=== PATIENT | male | born 1945 | race Caucasian/White ===

== ENCOUNTER 2017-10-03 14:08 | Observation (INO) | payer MEDICARE ==
--- NOTE | 2017-10-03 15:19 | ED ---
General Adult HPI - General Chief complaint: Chest Pain Stated complaint: chest pain Time Seen by Provider: 10/03/17 14:56 Source: patient, RN notes reviewed, old records reviewed Mode of arrival: ambulatory Limitations: no limitations - History of Present Illness Initial comments: This is a 72-year-old male the ER for evasive chest pain. Severe left sided chest pain. History of heart disease. Patient was seen by his primary care and sent in the ER for evaluation. Patient remains continued chest pain no significant shortness of breath no fevers cough or congestion. Patient has history of A. fib COPD diabetes and hypertension. - Related Data Home Medications Medication Instructions Recorded Confirmed Budesonide [Pulmicort] 0.5 mg INHALATION RT-BID 11/20/13 10/03/17 Carvedilol [Coreg] 3.125 mg PO BID-W/MEALS 11/20/13 10/03/17 Dofetilide [Tikosyn] 500 mcg PO BID 11/20/13 10/03/17 Spironolactone [Aldactone] 12.5 mg PO Q48H 11/20/13 10/03/17 Warfarin [Coumadin] 7.5 mg PO SUTUTH 11/20/13 10/03/17 glipiZIDE [Glucotrol] 10 mg PO AC-BID 11/20/13 10/03/17 metFORMIN HCL [Glucophage] 500 mg PO BID 11/20/13 10/03/17 Allopurinol [Zyloprim] 300 mg PO DAILY 11/21/14 10/03/17 Losartan [Cozaar] 25 mg PO DAILY 11/21/14 10/03/17 Lovastatin [Mevacor] 20 mg PO HS 11/21/14 10/03/17 Acetaminophen Tab [Tylenol] 325 mg PO QID PRN MDD 6 TABLETS 07/12/16 10/03/17 Ergocalciferol [Vitamin D2 50,000 unit PO HODGES 07/12/16 10/03/17 (DRISDOL)] Warfarin [Coumadin] 5 mg PO MOWEFRSA 07/12/16 10/03/17 Meclizine [Antivert] 25 mg PO BID 10/03/17 10/03/17 Multivitamins, Thera [Multivitamin 1 tab PO DAILY 10/03/17 10/03/17 (formulary)] Torsemide [Demadex] 40 mg PO DAILY 10/03/17 10/03/17 Allergies Allergy/AdvReac Type Severity Reaction Status Date / Time No Known Allergies Allergy Verified 10/03/17 16:00 Review of Systems ROS Statement: Those systems with pertinent positive or pertinent negative responses have been documented in the HPI. ROS Other: All systems not noted in ROS Statement are negative. Past Medical History Past Medical History: Atrial Fibrillation, COPD, Diabetes Mellitus, Hyperlipidemia, Sleep Apnea/CPAP/BIPAP Additional Past Medical History / Comment(s): cardiomyopathy. arthritis. gout History of Any Multi-Drug Resistant Organisms: None Reported Date of last positivie culture/infection: unknown if pt had MRSA or not after bowel surgery Past Surgical History: Bowel Resection, Pacemaker Additional Past Surgical History / Comment(s): Sinus surgery. VIANEY, bilateral cataract removal with lense implants Past Anesthesia/Blood Transfusion Reactions: No Reported Reaction Type of Cardiac Device: Permanent Pacemaker Device Placement Date:: 10/17/2012 Past Psychological History: Depression Smoking Status: Former smoker Past Alcohol Use History: Rare Past Drug Use History: None Reported - Past Family History Father Additional Family Medical History / Comment(s): "hardening of the arteries" General Exam Limitations: no limitations General appearance: alert, in no apparent distress Head exam: Present: atraumatic, normocephalic, normal inspection Eye exam: Present: normal appearance, PERRL, EOMI. Absent: scleral icterus, conjunctival injection, periorbital swelling ENT exam: Present: normal exam, mucous membranes moist Neck exam: Present: normal inspection. Absent: tenderness, meningismus, lymphadenopathy Respiratory exam: Present: normal lung sounds bilaterally. Absent: respiratory distress, wheezes, rales, rhonchi, stridor Cardiovascular Exam: Present: regular rate, normal rhythm, normal heart sounds. Absent: systolic murmur, diastolic murmur, rubs, gallop, clicks GI/Abdominal exam: Present: soft, normal bowel sounds. Absent: distended, tenderness, guarding, rebound, rigid Extremities exam: Present: normal inspection, full ROM, normal capillary refill. Absent: tenderness, pedal edema, joint swelling, calf tenderness Back exam: Present: normal inspection Neurological exam: Present: alert, oriented X3, CN II-XII intact Psychiatric exam: Present: normal affect, normal mood Skin exam: Present: warm, dry, intact, normal color. Absent: rash Course Vital Signs 10/03/17 10/03/17 10/03/17 14:11 15:29 16:48 Temperature 97.0 F L 97.2 F L Pulse Rate 69 61 66 Respiratory 18 18 18 Rate Blood Pressure 120/66 125/65 111/63 O2 Sat by Pulse 98 96 94 L Oximetry EKG Findings - EKG Comments: EKG Findings:: EKG shows sinus rhythm rate of 75, W[place] 234, QRS 134, QTC 489 Medical Decision Making - Medical Decision Making 72 male the ER for evaluation of chest pain. Patient will be admitted for cardiac observation, at this time EKG and troponin are negative patient has history of cardiac risk factors, we'll anticoagulate and admit for serial troponins and telemetry - Lab Data Result diagrams: 10/03/17 15:24 10/05/17 06:44 Lab Results 10/03/17 10/03/17 10/03/17 Range/Units 15:24 15:24 15:24 WBC 8.0 (3.8-10.6) k/uL RBC 4.77 (4.30-5.90) m/uL Hgb 13.8 (13.0-17.5) gm/dL Hct 43.2 (39.0-53.0) % MCV 90.5 (80.0-100.0) fL MCH 28.9 (25.0-35.0) pg MCHC 31.9 (31.0-37.0) g/dL RDW 15.1 (11.5-15.5) % Plt Count 224 (150-450) k/uL Neutrophils % 55 % Lymphocytes % 27 % Monocytes % 12 % Eosinophils % 3 % Basophils % 1 % Neutrophils # 4.4 (1.3-7.7) k/uL Lymphocytes # 2.2 (1.0-4.8) k/uL Monocytes # 1.0 (0-1.0) k/uL Eosinophils # 0.2 (0-0.7) k/uL Basophils # 0.1 (0-0.2) k/uL PT (9.0-12.0) sec INR (<1.2) APTT (22.0-30.0) sec Sodium 144 (137-145) mmol/L Potassium 3.9 (3.5-5.1) mmol/L Chloride 104 (98-107) mmol/L Carbon Dioxide 27 (22-30) mmol/L Anion Gap 13 mmol/L BUN 19 (9-20) mg/dL Creatinine 0.80 (0.66-1.25) mg/dL Est GFR (CKD-EPI)AfAm >90 (>60 ml/min/1.73 sqM) Est GFR (CKD-EPI)NonAf >90 (>60 ml/min/1.73 sqM) Glucose 127 H (74-99) mg/dL Calcium 9.1 (8.4-10.2) mg/dL Magnesium 1.9 (1.6-2.3) mg/dL Total Bilirubin 0.4 (0.2-1.3) mg/dL AST 25 (17-59) U/L ALT 17 L (21-72) U/L Alkaline Phosphatase 63 (38-126) U/L Total Creatine Kinase 122 (55-170) U/L CK-MB (CK-2) 1.0 (0.0-2.4) ng/mL CK-MB (CK-2) Rel Index 0.8 Troponin I <0.012 (0.000-0.034) ng/mL Total Protein 7.5 (6.3-8.2) g/dL Albumin 4.1 (3.5-5.0) g/dL 10/03/17 Range/Units 15:24 WBC (3.8-10.6) k/uL RBC (4.30-5.90) m/uL Hgb (13.0-17.5) gm/dL Hct (39.0-53.0) % MCV (80.0-100.0) fL MCH (25.0-35.0) pg MCHC (31.0-37.0) g/dL RDW (11.5-15.5) % Plt Count (150-450) k/uL Neutrophils % % Lymphocytes % % Monocytes % % Eosinophils % % Basophils % % Neutrophils # (1.3-7.7) k/uL Lymphocytes # (1.0-4.8) k/uL Monocytes # (0-1.0) k/uL Eosinophils # (0-0.7) k/uL Basophils # (0-0.2) k/uL PT 21.8 H (9.0-12.0) sec INR 2.4 H (<1.2) APTT 28.8 (22.0-30.0) sec Sodium (137-145) mmol/L Potassium (3.5-5.1) mmol/L Chloride (98-107) mmol/L Carbon Dioxide (22-30) mmol/L Anion Gap mmol/L BUN (9-20) mg/dL Creatinine (0.66-1.25) mg/dL Est GFR (CKD-EPI)AfAm (>60 ml/min/1.73 sqM) Est GFR (CKD-EPI)NonAf (>60 ml/min/1.73 sqM) Glucose (74-99) mg/dL Calcium (8.4-10.2) mg/dL Magnesium (1.6-2.3) mg/dL Total Bilirubin (0.2-1.3) mg/dL AST (17-59) U/L ALT (21-72) U/L Alkaline Phosphatase (38-126) U/L Total Creatine Kinase (55-170) U/L CK-MB (CK-2) (0.0-2.4) ng/mL CK-MB (CK-2) Rel Index Troponin I (0.000-0.034) ng/mL Total Protein (6.3-8.2) g/dL Albumin (3.5-5.0) g/dL - Radiology Data Radiology results: report reviewed, image reviewed Critical Care Time Critical Care Time: Yes Total Critical Care Time: 31 Disposition Clinical Impression: Chest pain, Weakness Disposition: ADMITTED IP TO THIS [facility] Condition: Fair
[2017-10-03 15:40] LABS: Basophils # (A) 0.1 k/uL (0-0.2); Basophils % (A) 1 %; Eosinophils # (A) 0.2 k/uL (0-0.7); Eosinophils % (A) 3 %; HCT 43.2 % (39.0-53.0); HGB 13.8 gm/dL (13.0-17.5); Lymphocytes # (A) 2.2 k/uL (1.0-4.8); Lymphocytes % (A) 27 %; MCH 28.9 pg (25.0-35.0); MCHC 31.9 g/dL (31.0-37.0); MCV 90.5 fL (80.0-100.0); Mean Platelet Volume 7.1; Monocytes % (A) 12 %; Neutrophils # (A) 4.4 k/uL (1.3-7.7); Neutrophils % (A) 55 %; Platelet Count 224 k/uL (150-450); RBC 4.77 m/uL (4.30-5.90); RDW 15.1 % (11.5-15.5)
[2017-10-03 15:48] LABS: INR 2.4 (<1.2); Partial Thromboplastin Time 28.8 sec (22.0-30.0); Prothrombin Time 21.8 sec (9.0-12.0)
--- NOTE | 2017-10-03 15:59 | XR ---
EXAMINATION TYPE: XR chest 2V DATE OF EXAM: 10/03/2017 COMPARISON: 07/12/2016 HISTORY: 72-year-old male with chest pain TECHNIQUE: AP and lateral views FINDINGS: Heart is moderately enlarged. Left anterior chest wall pacemaker generator with right atrial and righ t ventricular leads. Adjacent interstitial prominence. Some strandy atelectasis at the lung bases. No consolidation or significant pleural effusion. Posttraumatic bony deformity at the right coracoclavi cular joint. IMPRESSION: Mild to moderate cardiomegaly and interstitial prominence. Correlate for possible mild CHF.
[2017-10-03 16:06] LABS: Creatine Kinase 122 U/L (55-170)
[2017-10-03 16:16] LABS: ALT 17 U/L (21-72); AST 25 U/L (17-59); Albumin 4.1 g/dL (3.5-5.0); Alkaline Phosphatase 63 U/L (38-126); Anion Gap 13 mmol/L; Blood Urea Nitrogen 19 mg/dL (9-20); Calcium 9.1 mg/dL (8.4-10.2); Carbon Dioxide 27 mmol/L (22-30); Chloride 104 mmol/L (98-107); Glucose 127 mg/dL (74-99); Magnesium 1.9 mg/dL (1.6-2.3); Potassium 3.9 mmol/L (3.5-5.1); Sodium 144 mmol/L (137-145); Total Bilirubin 0.4 mg/dL (0.2-1.3); Total Protein 7.5 g/dL (6.3-8.2)
[2017-10-03 16:19] LABS: Troponin I <0.012 ng/mL (0.000-0.034)
[2017-10-03] MEDS ORDERED: ASPIRIN 81 MG PO STA (16:22)
[2017-10-03] MEDS ORDERED: NITROGLYCERIN SL TABS 0.4 MG TAB SUBLINGUAL PRN (16:22)
[2017-10-03 18:10] LABS: Glucose,Whole Blood 86 mg/dL (75-99)
[2017-10-03] MEDS ORDERED: WARFARIN 5 MG TAB PO SCH (20:00)
[2017-10-03] MEDS: metFORMIN 500 MG TAB PO SCH (20:47)
[2017-10-03] MEDS: DOFETILIDE 500 MCG CAP PO SCH (20:47)
[2017-10-03] MEDS: METOPROLOL TARTRATE 25 MG TAB PO SCH (20:47)
[2017-10-03] MEDS: MECLIZINE 25 MG TAB PO SCH (20:48)
[2017-10-03] MEDS: ATORVASTATIN 10 MG TAB PO SCH (20:48)
[2017-10-03] MEDS ORDERED: glipiZIDE 10 MG TAB PO SCH (20:50)
[2017-10-03] MEDS: ACETAMINOPHEN TAB 325 MG TAB PO PRN (20:55)
[2017-10-03 21:08] LABS: Glucose,Whole Blood 139 mg/dL (75-99)
[2017-10-03] MEDS: glipiZIDE 5 MG TAB PO SCH (21:43)
[2017-10-03 22:03] LABS: Creatine Kinase 124 U/L (55-170)
[2017-10-03 22:16] LABS: Creatine Kinase MB 0.9 ng/mL (0.0-2.4); Troponin I <0.012 ng/mL (0.000-0.034)
[2017-10-03] MEDS: BUDESONIDE 0.5 MG/2 ML NEBU INHALATION SCH (22:17)
[2017-10-03 22:58] LABS: Appearance,Urine Clear (Clear); Bilirubin,Urine Negative (Negative); Blood,Urine Negative (Negative); Color,Urine Yellow; Glucose,Urine (UA) Negative (Negative); Ketones,Urine Negative (Negative); Leukocyte Esterase,Urine Negative (Negative); Nitrite,Urine Negative (Negative); Protein,Urine Negative (Negative); Urobilinogen,Urine <2.0 mg/dL (<2.0)
[2017-10-04 04:16] LABS: INR 2.3 (<1.2)
[2017-10-04 04:47] LABS: Cholesterol 152 mg/dL (<200); HDL Cholesterol 45 mg/dL (40-60); LDL Cholesterol,Calculated 73 mg/dL (0-99); Triglycerides 171 mg/dL (<150)
[2017-10-04 04:51] LABS: Creatine Kinase 114 U/L (55-170)
[2017-10-04 05:01] LABS: Creatine Kinase MB 0.9 ng/mL (0.0-2.4); Troponin I <0.012 ng/mL (0.000-0.034)
[2017-10-04 06:35] LABS: Glucose,Whole Blood 106 mg/dL (75-99)
[2017-10-04] MEDS ORDERED: glipiZIDE 10 MG TAB PO SCH (07:30)
[2017-10-04] MEDS: BUDESONIDE 0.5 MG/2 ML NEBU INHALATION SCH ×2 (07:46→20:10)
[2017-10-04] MEDS: ACETAMINOPHEN TAB 325 MG TAB PO PRN (09:07)
[2017-10-04] MEDS ORDERED: MULTIVITAMINS, THERA 1 EACH TAB PO SCH (12:00)
[2017-10-04 12:01] LABS: Glucose,Whole Blood 123 mg/dL (75-99)
--- NOTE | 2017-10-04 13:20 | P.CRDCN ---
History of Present Illness Consult date: 10/04/17 Consult reason: atrial fibrillation History of present illness: Mr. Galloway is a pleasant 72-year-old male past medical history significant for paroxysmal atrial fibrillation maintained on coumadin and tikosyn s/p ablation, COPD, diabetes mellitus, dyslipidemia, sleep apnea and pacemaker implantation. He follows with Dr. Witt in the office. We have been asked to see him in consultation for complaints of palpitations. He regularly checks his blood pressure at home and over the day or 2 he has noticed that the monitor has been showing an irregular heart rhythm reading. He made an appointment to see his PCP and they did an EKG that showed sinus, per the patient. This EKG is not on the chart. He was apparently more short of breath than usual so they advised him to come to the hospital for evaluation. He states he suffers with shortness of breath chronically and hasn't noticed his breathing to be any worse lately. He denies ever having had symptoms of chest pain. Denies PND or orhopnea. He states he has been coughing more lately with no phlegm production. He has oxygen at home but states he doesn't use it as recommended. EKG reveals sinus mechanism with right bundle branch block. Telemetry tracings have been unremarkable for arrhythmia. Chest xray reveals mild to moderate cardimegaly and interstitial prominence. Laboratory data reviewed, hemoglobin 13.8, platelets 224, INR 2.4, potassium 3.9 , magnesium 1.9, creatinine 0.8, proBNP 171, cardiac enzymes negative 3. Current cardiac medications include lovastatin 20 mg daily, losartan 25 mg daily , carvedilol 3.125 mg twice a day, Coumadin daily, Demadex 40 mg daily, Aldactone 12.5 mg every other day and Tikosyn 500 mg twice a day. Review of Systems At the time of my exam: CONSTITUTIONAL: Denies fever. Denies chills. EYES: Denies blurred vision. Denies vision changes. Denies eye pain. EARS, NOSE, MOUTH & THROAT: Denies headache. Denies sore throat. Denies ear pain. CARDIOVASCULAR: Denies chest pain. Denies shortness of breath. Denies orthopnea. Denies PND. Denies palpitations. RESPIRATORY: Denies cough. GASTROINTESTINAL: Denies abdominal pain. Denies diarrhea. Denies constipation. Denies nausea. Denies vomiting. MUSCULOSKELETAL: Denies myalgias. INTEGUMENTARY: Denies pruitis. Denies rash. NEUROLOGIC: Denies numbness. Denies tingling. Denies weakness. PSYCHIATRIC: Denies anxiety. Denies depression. ENDOCRINE: Denies fatigue. Denies weight change. Denies polydipsia. Denies polyurina. GENITOURINARY: Denies burning, hematuria or urgency with micturation. HEMATOLOGIC: Denies history of anemia. Denies bleeding. Past Medical History Past Medical History: Atrial Fibrillation, COPD, Diabetes Mellitus, Hyperlipidemia, Sleep Apnea/CPAP/BIPAP Additional Past Medical History / Comment(s): cardiomyopathy. arthritis. gout History of Any Multi-Drug Resistant Organisms: None Reported Date of last positivie culture/infection: unknown if pt had MRSA or not after bowel surgery Past Surgical History: Bowel Resection, Cardiac Ablation, Heart Catheterization , Pacemaker Additional Past Surgical History / Comment(s): Sinus surgery. VIANEY, bilateral cataract removal with lense implants Past Anesthesia/Blood Transfusion Reactions: No Reported Reaction Type of Cardiac Device: Permanent Pacemaker Device Placement Date:: 10/17/2012 Smoking Status: Former smoker - Past Family History Father Additional Family Medical History / Comment(s): "hardening of the arteries" Medications and Allergies Home Medications Medication Instructions Recorded Confirmed Type Budesonide [Pulmicort] 0.5 mg INHALATION RT-BID 11/20/13 10/03/17 History Carvedilol [Coreg] 3.125 mg PO BID-W/MEALS 11/20/13 10/03/17 History Dofetilide [Tikosyn] 500 mcg PO BID 11/20/13 10/03/17 History Spironolactone [Aldactone] 12.5 mg PO Q48H 11/20/13 10/03/17 History Warfarin [Coumadin] 7.5 mg PO SUTUTH 11/20/13 10/03/17 History glipiZIDE [Glucotrol] 10 mg PO AC-BID 11/20/13 10/03/17 History metFORMIN HCL [Glucophage] 500 mg PO BID 11/20/13 10/03/17 History Allopurinol [Zyloprim] 300 mg PO DAILY 11/21/14 10/03/17 History Losartan [Cozaar] 25 mg PO DAILY 11/21/14 10/03/17 History Lovastatin [Mevacor] 20 mg PO HS 11/21/14 10/03/17 History Acetaminophen Tab [Tylenol Tab] 325 mg PO QID PRN MDD 6 TABLETS 07/12/16 History Ergocalciferol [Vitamin D2] 50,000 unit PO HODGES 07/12/16 10/03/17 History Warfarin [Coumadin] 5 mg PO MOWEFRSA 07/12/16 10/03/17 History Meclizine [Antivert] 25 mg PO BID 10/03/17 10/03/17 History Multivitamins, Thera [Multivitamin 1 tab PO DAILY 10/03/17 10/03/17 History (formulary)] Torsemide [Demadex] 40 mg PO DAILY 10/03/17 10/03/17 History Allergies Allergy/AdvReac Type Severity Reaction Status Date / Time No Known Allergies Allergy Verified 10/03/17 16:00 Physical Exam Vitals: Vital Signs Temp Pulse Pulse Resp BP BP Pulse Ox 10/04/17 07:57 56 L 10/04/17 07:54 97.6 F 69 18 98/64 93 L 10/04/17 07:46 56 L 10/04/17 04:00 16 95 10/04/17 03:58 67 18 10/04/17 03:38 97.6 F 65 18 107/51 92 L 10/03/17 23:49 97.5 F L 56 L 16 115/56 91 L 10/03/17 23:10 67 16 10/03/17 20:00 70 16 10/03/17 19:48 97.6 F 73 16 98/49 92 L 10/03/17 18:25 95 10/03/17 18:19 68 10/03/17 17:35 97.4 F L 69 17 125/67 97 10/03/17 16:48 97.2 F L 66 18 111/63 94 L 10/03/17 15:29 61 18 125/65 96 10/03/17 14:11 97.0 F L 69 18 120/66 98 Intake and Output 10/03/17 10/04/17 10/04/17 22:59 06:59 14:59 Intake Total 240 Balance 240 Intake: Oral 240 Other: Voiding Method Toilet Toilet # Voids 1 2 Weight 148.2 kg 149.3 kg Blood pressure 90/64 heart rate 69 afebrile maintaining oxygen saturation on nasal cannula 2 L. GENERAL: This is a 72-year-old male in no apparent distress at the time of my examination. Morbidly obese. HEENT: Head is atraumatic, normocephalic. Pupils are equal, round. Sclerae anicteric. Conjunctivae are clear. Mucous membranes of the mouth are moist. Neck is supple. There is no jugular venous distention. No carotid bruit is heard. LUNGS: Clear to auscultation no wheezes, rales or rhonchi. No chest wall tenderness is noted on palpation or with deep breathing. Diminished. HEART: Regular rate and rhythm without murmurs, rubs or gallops. S1 and S2 heard. ABDOMEN: Soft, nontender. Bowel sounds are heard. No organomegaly noted. EXTREMITIES: No evidence of peripheral edema and no calf tenderness noted. VASCULAR: Radial and dorsalis pedis pulses palpated, no evidence of clubbing. NEUROLOGIC: Patient is awake, alert and oriented x3. Results 10/03/17 15:24 10/03/17 15:24 Cardiac Enzymes 10/03/17 10/03/17 10/03/17 Range/Units 15:24 15:24 21:17 AST 25 (17-59) U/L CK-MB (CK-2) 1.0 0.9 (0.0-2.4) ng/mL Troponin I <0.012 <0.012 (0.000-0.034) ng/mL 10/04/17 Range/Units 03:30 AST (17-59) U/L CK-MB (CK-2) 0.9 (0.0-2.4) ng/mL Troponin I <0.012 (0.000-0.034) ng/mL Coagulation 10/03/17 10/04/17 Range/Units 15:24 03:30 PT 21.8 H 21.0 H (9.0-12.0) sec APTT 28.8 (22.0-30.0) sec Lipids 10/04/17 Range/Units 03:30 Triglycerides 171 H (<150) mg/dL Cholesterol 152 (<200) mg/dL HDL Cholesterol 45 (40-60) mg/dL CBC 10/03/17 Range/Units 15:24 WBC 8.0 (3.8-10.6) k/uL RBC 4.77 (4.30-5.90) m/uL Hgb 13.8 (13.0-17.5) gm/dL Hct 43.2 (39.0-53.0) % Plt Count 224 (150-450) k/uL Comprehensive Metabolic Panel 10/03/17 Range/Units 15:24 Sodium 144 (137-145) mmol/L Potassium 3.9 (3.5-5.1) mmol/L Chloride 104 (98-107) mmol/L Carbon Dioxide 27 (22-30) mmol/L BUN 19 (9-20) mg/dL Creatinine 0.80 (0.66-1.25) mg/dL Glucose 127 H (74-99) mg/dL Calcium 9.1 (8.4-10.2) mg/dL AST 25 (17-59) U/L ALT 17 L (21-72) U/L Alkaline Phosphatase 63 (38-126) U/L Total Protein 7.5 (6.3-8.2) g/dL Albumin 4.1 (3.5-5.0) g/dL Current Medications Generic Name Dose Route Start Last Admin Trade Name Freq PRN Reason Stop Dose Admin Acetaminophen 325 mg 10/03/17 19:35 10/03/17 20:55 Tylenol Tab PO 325 mg QID PRN Administration Fever and/ or Pain Allopurinol 300 mg 10/04/17 09:00 Zyloprim PO DAILY [facility] Aspirin 325 mg 10/04/17 09:00 Aspirin PO DAILY [facility] Atorvastatin Calcium 10 mg 10/03/17 21:00 10/03/17 20:48 Lipitor PO 10 mg HS SERGEY Administration Budesonide 0.5 mg 10/03/17 20:00 10/04/17 07:46 Pulmicort INHALATION 0.5 mg RT-BID SERGEY Administration Carvedilol 3.125 mg 10/04/17 07:30 Coreg PO BID-W/MEALS [facility] Dofetilide 500 mcg 10/03/17 21:00 10/03/17 20:47 Tikosyn PO 500 mcg BID SERGEY Administration Ergocalciferol 50,000 unit 10/07/17 12:00 Vitamin D2 PO Hodges@1200 [facility] Glipizide 10 mg 10/03/17 21:15 10/03/17 21:43 Glucotrol PO 10 mg AC-BID [facility] Administration Losartan Potassium 25 mg 10/04/17 09:00 Cozaar PO DAILY [facility] Meclizine HCl 25 mg 10/03/17 21:00 10/03/17 20:48 Antivert PO 25 mg BID SERGEY Administration Metformin HCl 500 mg 10/03/17 21:00 10/03/17 20:47 Glucophage PO 500 mg BID SERGEY Administration Metoprolol Tartrate 25 mg 10/03/17 21:00 10/03/17 20:47 Lopressor PO 25 mg BID [facility] Administration Multivitamins 1 each 10/04/17 12:00 Theragran PO DAILY@1200 [facility] Nitroglycerin 0.4 mg 10/03/17 16:22 Nitrostat SUBLINGUAL Q5M PRN Chest Pain Spironolactone 12.5 mg 10/05/17 09:00 Aldactone PO Q48H [facility] Torsemide 40 mg 10/04/17 09:00 Demadex PO DAILY [facility] Warfarin Sodium 5 mg 10/03/17 20:00 10/03/17 20:47 Coumadin PO 5 mg MoWeFrSa@1800 [facility] Administration Warfarin Sodium 7.5 mg 10/04/17 18:00 Coumadin PO SuTuTh@1800 [facility] Intake and Output 10/03/17 10/04/17 10/04/17 22:59 06:59 14:59 Intake Total 240 Balance 240 Intake: Oral 240 Other: Voiding Method Toilet Toilet # Voids 1 2 Weight 148.2 kg 149.3 kg 10/03/17 15:24 10/03/17 15:24 Assessment and Plan Assessment: ASSESSMENT 1. Palpitations 2. Persistent atiral fibrillation on vermin exterminator anticoagulation with coumadin, currently maintaining sinus with therapeutic INR on Tikosyn. Avoid all QT prolonging drugs. 3. COPD on home oxygen 4. Diabetes mellitus 5. Dyslipidemia 6. Hypertension PLAN No documentation of atrial fibrillation. Interrogate pacemaker. If unremarkable interrogation he is stable from cardiac perspective. Thank you kindly for this consultation. Nurse Practitioner note has been reviewed, I agree with a documented findings and plan of care. Patient was seen and examined.
[2017-10-04 13:31] LABS: Hemoglobin A1C 6.9 % (4.0-6.0)
[2017-10-04] MEDS: DOFETILIDE 500 MCG CAP PO SCH ×2 (13:58→20:18)
[2017-10-04] MEDS: ASPIRIN 325 MG TAB PO SCH (13:58)
[2017-10-04] MEDS: ALLOPURINOL 300 MG TAB PO SCH (13:58)
[2017-10-04] MEDS: CARVEDILOL 3.125 MG TAB PO SCH ×2 (13:58→18:29)
[2017-10-04] MEDS: glipiZIDE 5 MG TAB PO SCH ×2 (13:58→18:29)
[2017-10-04] MEDS: LOSARTAN 25 MG TAB PO SCH (13:58)
[2017-10-04] MEDS: METOPROLOL TARTRATE 25 MG TAB PO SCH ×2 (13:59→20:18)
[2017-10-04] MEDS: MECLIZINE 25 MG TAB PO SCH ×2 (13:59→20:18)
[2017-10-04] MEDS: metFORMIN 500 MG TAB PO SCH ×2 (13:59→20:19)
[2017-10-04] MEDS: TORSEMIDE 20 MG TAB PO SCH (14:00)
--- NOTE | 2017-10-04 15:25 | P.HPIM ---
History of Present Illness H&P Date: 10/04/17 Chief Complaint: Palpitation This is a 72-year-old gentleman with past medical history noted below significant for severe COPD on home O2 and underlying paroxysmal atrial fibrillation who presented to the emergency room sent from his PCP office for palpitation. Patient said that he was doing fairly well up until the last couple of days when he felt that he was having irregular heart rhythm. He described palpitation. He said that he is chronically short of breath and that did not change. He denies being dizzy or lightheaded. No chest pain. He went to his primary care physician who advised him to go to the emergency room for further evaluation. In the ER twelve-lead EKG showed normal sinus rhythm with known right bundle branch block. Patient was placed in observation for further evaluation. He is hemodynamically stable. He was seen and evaluated by cardiology. Awaiting pacemaker interrogation. Review of Systems Review of system: 14 points review of systems were obtained and were negative except to what were mentioned in the HPI. Past Medical History Past Medical History: Atrial Fibrillation, COPD, Diabetes Mellitus, Hyperlipidemia, Sleep Apnea/CPAP/BIPAP Additional Past Medical History / Comment(s): cardiomyopathy. arthritis. gout History of Any Multi-Drug Resistant Organisms: None Reported Date of last positivie culture/infection: unknown if pt had MRSA or not after bowel surgery Past Surgical History: Bowel Resection, Cardiac Ablation, Heart Catheterization , Pacemaker Additional Past Surgical History / Comment(s): Sinus surgery. VIANEY, bilateral cataract removal with lense implants Past Anesthesia/Blood Transfusion Reactions: No Reported Reaction Type of Cardiac Device: Permanent Pacemaker Device Placement Date:: 10/17/2012 Smoking Status: Former smoker - Past Family History Father Additional Family Medical History / Comment(s): "hardening of the arteries" Medications and Allergies Home Medications Medication Instructions Recorded Confirmed Type Budesonide [Pulmicort] 0.5 mg INHALATION RT-BID 11/20/13 10/03/17 History Carvedilol [Coreg] 3.125 mg PO BID-W/MEALS 11/20/13 10/03/17 History Dofetilide [Tikosyn] 500 mcg PO BID 11/20/13 10/03/17 History Spironolactone [Aldactone] 12.5 mg PO Q48H 11/20/13 10/03/17 History Warfarin [Coumadin] 7.5 mg PO SUTUTH 11/20/13 10/03/17 History glipiZIDE [Glucotrol] 10 mg PO AC-BID 11/20/13 10/03/17 History metFORMIN HCL [Glucophage] 500 mg PO BID 11/20/13 10/03/17 History Allopurinol [Zyloprim] 300 mg PO DAILY 11/21/14 10/03/17 History Losartan [Cozaar] 25 mg PO DAILY 11/21/14 10/03/17 History Lovastatin [Mevacor] 20 mg PO HS 11/21/14 10/03/17 History Acetaminophen Tab [Tylenol Tab] 325 mg PO QID PRN MDD 6 TABLETS 07/12/16 History Ergocalciferol [Vitamin D2] 50,000 unit PO HODGES 07/12/16 10/03/17 History Warfarin [Coumadin] 5 mg PO MOWEFRSA 07/12/16 10/03/17 History Meclizine [Antivert] 25 mg PO BID 10/03/17 10/03/17 History Multivitamins, Thera [Multivitamin 1 tab PO DAILY 10/03/17 10/03/17 History (formulary)] Torsemide [Demadex] 40 mg PO DAILY 10/03/17 10/03/17 History Allergies Allergy/AdvReac Type Severity Reaction Status Date / Time No Known Allergies Allergy Verified 10/03/17 16:00 Physical Exam Vitals: Vital Signs Temp Pulse Pulse Resp BP BP Pulse Ox 10/04/17 11:37 97.6 F 73 16 111/70 93 L 10/04/17 08:00 69 18 10/04/17 07:57 56 L 10/04/17 07:54 97.6 F 69 18 98/64 93 L 10/04/17 07:46 56 L 10/04/17 04:00 16 95 10/04/17 03:58 67 18 10/04/17 03:38 97.6 F 65 18 107/51 92 L 10/03/17 23:49 97.5 F L 56 L 16 115/56 91 L 10/03/17 23:10 67 16 10/03/17 20:00 70 16 10/03/17 19:48 97.6 F 73 16 98/49 92 L 10/03/17 18:25 95 10/03/17 18:19 68 03/14/18 17:35 97.4 F L 69 17 125/67 97 10/03/17 16:48 97.2 F L 66 18 111/63 94 L 10/03/17 15:29 61 18 125/65 96 Intake and Output 10/04/17 10/04/17 10/04/17 06:59 14:59 22:59 Intake Total 240 Balance 240 Intake: Oral 240 Other: Voiding Method Toilet Toilet # Voids 2 Weight 149.3 kg General: The patient is awake and alert, in no distress Eye: there is normal conjunctiva bilaterally. Neck: The neck is supple, there is no JVD. Cardiovascular: Normal S1-S2, no S3-S4, no murmurs. Respiratory: Lungs clear to auscultation bilaterally Gastrointestinal: Abdomen is soft, nontender Musculoskeletal: There is no pedal edema. Neurological:. Speech is normal. Skin: Skin is warm and dry Results CBC & Chem 7: 10/03/17 15:24 10/03/17 15:24 Labs: Abnormal Lab Results - Last 24 Hours (Table) 10/03/17 10/03/17 10/03/17 Range/Units 15:24 15:24 21:04 PT 21.8 H (9.0-12.0) sec INR 2.4 H (<1.2) Glucose 127 H (74-99) mg/dL POC Glucose (mg/dL) 139 H (75-99) mg/dL Hemoglobin A1c (4.0-6.0) % ALT 17 L (21-72) U/L Triglycerides (<150) mg/dL 10/03/17 10/04/17 10/04/17 Range/Units 21:17 03:30 03:30 PT 21.0 H (9.0-12.0) sec INR 2.3 H (<1.2) Glucose (74-99) mg/dL POC Glucose (mg/dL) (75-99) mg/dL Hemoglobin A1c 6.9 H (4.0-6.0) % ALT (21-72) U/L Triglycerides 171 H (<150) mg/dL 10/04/17 10/04/17 Range/Units 06:33 11:53 PT (9.0-12.0) sec INR (<1.2) Glucose (74-99) mg/dL POC Glucose (mg/dL) 106 H 123 H (75-99) mg/dL Hemoglobin A1c (4.0-6.0) % ALT (21-72) U/L Triglycerides (<150) mg/dL Thrombosis Risk Factor Assmnt - Choose All That Apply Any of the Below Risk Factors Present?: Yes Each Factor Represents 1 point: Obesity (BMI >25) Other Risk Factors: Yes Each Risk Factor Represents 2 Points: Age 61-74 years Thrombosis Risk Factor Assessment Total Risk Factor Score: 3 Thrombosis Risk Factor Assessment Level: Moderate Risk Assessment and Plan Assessment: 1. Palpitation, makes active etiology unclear. Patient is currently in normal sinus rhythm. Awaiting device interrogation. Patient was seen and evaluated by cardiology. We will continue 24 hours telemetry monitoring. 2. Chronic atrial fibrillation on anticoagulation with Coumadin 3. Chronic hypoxic respiratory failure on home O2 4. Severe COPD with no evidence of exacerbation 5. Obstructive sleep apnea on CPAP at home 6. Essential hypertension: Blood pressure well-controlled 7. Morbid obesity 8. Mixed hyperlipidemia
[2017-10-04 16:35] LABS: T4, Free (Free Thyroxine) 1.29 ng/dL (0.78-2.19)
[2017-10-04 17:24] LABS: Glucose,Whole Blood 116 mg/dL (75-99)
[2017-10-04] MEDS ORDERED: WARFARIN 7.5 MG TAB PO SCH (18:00)
[2017-10-04] MEDS: ATORVASTATIN 10 MG TAB PO SCH (20:18)
[2017-10-04 20:58] LABS: Glucose,Whole Blood 86 mg/dL (75-99)
[2017-10-04 23:52] VITALS: RESP 18
[2017-10-05 06:57] LABS: Glucose,Whole Blood 99 mg/dL (75-99)
[2017-10-05 07:51] LABS: INR 2.2 (<1.2)
[2017-10-05 08:00] LABS: Anion Gap 10 mmol/L; Blood Urea Nitrogen 20 mg/dL (9-20); Calcium 9.2 mg/dL (8.4-10.2); Carbon Dioxide 31 mmol/L (22-30); Chloride 101 mmol/L (98-107); Glucose 97 mg/dL (74-99); Potassium 4.3 mmol/L (3.5-5.1); Sodium 142 mmol/L (137-145)
[2017-10-05] MEDS: DOFETILIDE 500 MCG CAP PO SCH (08:41)
[2017-10-05] MEDS: ACETAMINOPHEN TAB 325 MG TAB PO PRN (08:41)
[2017-10-05] MEDS: ALLOPURINOL 300 MG TAB PO SCH (08:41)
[2017-10-05] MEDS: ASPIRIN 325 MG TAB PO SCH (08:41)
[2017-10-05] MEDS: TORSEMIDE 20 MG TAB PO SCH (08:42)
[2017-10-05] MEDS: metFORMIN 500 MG TAB PO SCH (08:42)
[2017-10-05] MEDS: glipiZIDE 5 MG TAB PO SCH (08:42)
[2017-10-05] MEDS: MECLIZINE 25 MG TAB PO SCH (08:42)
[2017-10-05] MEDS: LOSARTAN 25 MG TAB PO SCH (08:42)
[2017-10-05] MEDS: CARVEDILOL 3.125 MG TAB PO SCH (08:43)
[2017-10-05] MEDS: METOPROLOL TARTRATE 25 MG TAB PO SCH (08:43)
[2017-10-05] MEDS ORDERED: SPIRONOLACTONE 25 MG TAB PO SCH (09:00)
[2017-10-05] MEDS: BUDESONIDE 0.5 MG/2 ML NEBU INHALATION SCH (09:11)
[2017-10-05 11:55] VITALS: BP 117/75; PULSE 61; TEMP 97.4
[2017-10-05 11:59] LABS: Glucose,Whole Blood 149 mg/dL (75-99)
--- NOTE | 2017-10-05 13:17 | P.DS ---
Providers Date of admission: 10/03/17 16:22 Expected date of discharge: 10/05/17 Attending physician: Catrina Lew Consults: 10/03/17 16:22 Consult Physician Urgent Consulting Provider: Mandy Ray Consult Reason/Comments: cp Do you want consulting provider notified?: Yes Primary care physician: Jocelyn [facility] Course: 1. Palpitation, etiology unclear. Patient is in normal sinus rhythm. Patient was seen and evaluated by cardiology. His device was interrogated with no significant events. No arrhythmia noted on environmental monitoring technician for 24 hours. Patient was cleared for discharge home. 2. Chronic atrial fibrillation on anticoagulation with Coumadin 3. Chronic hypoxic respiratory failure on home O2 4. Severe COPD with no evidence of exacerbation 5. Obstructive sleep apnea on CPAP at home 6. Essential hypertension: Blood pressure well-controlled 7. Morbid obesity 8. Mixed hyperlipidemia Patient Condition at Discharge: Fair Plan - Discharge Summary New Discharge Prescriptions: Continue Dofetilide [Tikosyn] 500 mcg PO BID metFORMIN HCL [Glucophage] 500 mg PO BID glipiZIDE [Glucotrol] 10 mg PO AC-BID Warfarin [Coumadin] 7.5 mg PO SUTUTH Spironolactone [Aldactone] 12.5 mg PO Q48H Carvedilol [Coreg] 3.125 mg PO BID-W/MEALS Budesonide [Pulmicort] 0.5 mg INHALATION RT-BID Losartan [Cozaar] 25 mg PO DAILY Allopurinol [Zyloprim] 300 mg PO DAILY Lovastatin [Mevacor] 20 mg PO HS Acetaminophen Tab [Tylenol] 325 mg PO QID PRN MDD 6 TABLETS PRN Reason: Fever And/ Or Pain Ergocalciferol [Vitamin D2 (DRISDOL)] 50,000 unit PO HODGES Warfarin [Coumadin] 5 mg PO MOWEFRSA Multivitamins, Thera [Multivitamin (formulary)] 1 tab PO DAILY Meclizine [Antivert] 25 mg PO BID Torsemide [Demadex] 40 mg PO DAILY Discharge Medication List Budesonide [Pulmicort] 0.5 mg INHALATION RT-BID 11/20/13 [History] Carvedilol [Coreg] 3.125 mg PO BID-W/MEALS 11/20/13 [History] Dofetilide [Tikosyn] 500 mcg PO BID 11/20/13 [History] Spironolactone [Aldactone] 12.5 mg PO Q48H 11/20/13 [History] Warfarin [Coumadin] 7.5 mg PO SUTUTH 11/20/13 [History] glipiZIDE [Glucotrol] 10 mg PO AC-BID 11/20/13 [History] metFORMIN HCL [Glucophage] 500 mg PO BID 11/20/13 [History] Allopurinol [Zyloprim] 300 mg PO DAILY 11/21/14 [History] Losartan [Cozaar] 25 mg PO DAILY 11/21/14 [History] Lovastatin [Mevacor] 20 mg PO HS 11/21/14 [History] Acetaminophen Tab [Tylenol] 325 mg PO QID PRN MDD 6 TABLETS 07/12/16 [History] Ergocalciferol [Vitamin D2 (DRISDOL)] 50,000 unit PO HODGES 07/12/16 [History] Warfarin [Coumadin] 5 mg PO MOWEFRSA 07/12/16 [History] Meclizine [Antivert] 25 mg PO BID 10/03/17 [History] Multivitamins, Thera [Multivitamin (formulary)] 1 tab PO DAILY 10/03/17 [History ] Torsemide [Demadex] 40 mg PO DAILY 10/03/17 [History] Follow up Appointment(s)/Referral(s): Rusty Witt MD [STAFF PHYSICIAN] - 1 Week (Office will call with follow up appointment) Jocelyn Sampson MD [Primary Care Provider] - 1-2 days Patient Instructions/Handouts: Chest Pain (ED) Discharge Disposition: HOME SELF-CARE
[2017-10-07] MEDS ORDERED: ERGOCALCIFEROL 50,000 UNIT CAP PO SCH (12:00)
== END 2017-10-05 13:00 | disposition home or self-care (01) ==
LOC: EC 14:08 → 3OBS 16:22
PROVIDERS: ADMIT Internal Medicine; ATTEND Internal Medicine
DX: R00.2 Palpitations (principal); R07.89 Other chest pain; J96.11 Chronic respiratory failure with hypoxia; J44.9 Chronic obstructive pulmonary disease, unspecified; I48.1 Persistent atrial fibrillation; G47.33 Obstructive sleep apnea (adult) (pediatric); I10 Essential (primary) hypertension; E78.2 Mixed hyperlipidemia; E11.9 Type 2 diabetes mellitus without complications; M10.9 Gout, unspecified; I42.9 Cardiomyopathy, unspecified; M19.90 Unspecified osteoarthritis, unspecified site; F32.9 Major depressive disorder, single episode, unspecified; Z99.81 Dependence on supplemental oxygen; E66.01 Morbid (severe) obesity due to excess calories; Z68.42 Body mass index [BMI] 45.0-49.9, adult; Z79.01 Long term (current) use of anticoagulants; Z79.84 Long term (current) use of oral hypoglycemic drugs; Z79.51 Long term (current) use of inhaled steroids; Z87.891 Personal history of nicotine dependence; Z91.14 Patient's other noncompliance with medication regimen
CPT/HCPCS: 99291 ×2; 36415; 94640 ×3; 93005; 84439; 83880; 80061; 80053; 80048; 84443; 82550 ×2; 82553 ×2; 83735; 84484 ×2; 85025; 85610 ×3; 85730; 81003; 83036; 71046; G0378 ×3

== ENCOUNTER 2018-06-22 | Inpatient (IN) | payer MEDICARE ==
[2018-06-22] MEDS ORDERED: ONDANSETRON 4 MG/2 ML VIAL IVP STA (00:26)
--- NOTE | 2018-06-22 01:02 | CT ---
EXAMINATION TYPE: CT abdomen pelvis wo con DATE OF EXAM: 06/22/2018 COMPARISON: None HISTORY: abdominal pain CT DLP: 1794 mGycm Automated exposure control for dose reduction was used. TECHNIQUE: Helical acquisition of images was performed from the lung bases through the pelvis. FINDINGS: There is some patchy atelectasis at the lung bases. There is no pleural effusion. Stomach is large an d full of fluid. There is small hiatal hernia. Liver shows no focal defect. Gallbladder appears normal. Spleen appears normal. There is no evidence of a pancreatic mass. Bile ducts are not dilated. There is no adrenal mass. The kidneys have normal size and contour. There is no hydronephrosis. There is 3 mm calculus lower pole left kidney. There is probably 1.5 cm cyst lower pole left kidney. Urete rs are not dilated. There is no retroperitoneal adenopathy. There is no ascites. Bladder distends smo othly. There is no inguinal hernia. Distal small bowel is unremarkable. There is dilated fluid-filled proximal small bowel. Proximal small bowel measures up to 4 cm. There are surgical clips apparently in the distal transverse colon. The appendix appears normal. There are numerous diverticula in the si gmoid colon. There is no evidence of diverticulitis. The lumbar spine is intact. Bony pelvis is intac t. IMPRESSION: THERE IS DILATED PROXIMAL SMALL BOWEL CONSISTENT WITH PARTIAL MECHANICAL OBSTRUCTION OR SMALL BOWEL I LEUS. TRANSITION POINT NOT IDENTIFIED. PREVIOUS SURGERY. LARGE FLUID-FILLED STOMACH CONSISTENT WITH G ASTROPARESIS OR RELATE TO MECHANICAL OBSTRUCTION OF THE SMALL BOWEL.
[2018-06-22] MEDS ORDERED: SODIUM CHLORIDE 0.9% 1,000 ML IV ONE (01:14)
[2018-06-22 01:31] LABS: Basophils % (A) 0 %; Eosinophils % (A) 0 %; HCT 48.9 % (39.0-53.0); HGB 15.8 gm/dL (13.0-17.5); Lymphocytes # (A) 1.7 k/uL (1.0-4.8); Lymphocytes % (A) 26 %; MCH 29.3 pg (25.0-35.0); MCHC 32.4 g/dL (31.0-37.0); MCV 90.3 fL (80.0-100.0); Monocytes # (A) 0.8 k/uL (0-1.0); Monocytes % (A) 13 %; Neutrophils # (A) 3.8 k/uL (1.3-7.7); Neutrophils % (A) 59 %; Platelet Count 228 k/uL (150-450); RBC 5.41 m/uL (4.30-5.90); RDW 15.8 % (11.5-15.5); WBC 6.5 k/uL (3.8-10.6)
[2018-06-22 01:43] LABS: Albumin 4.4 g/dL (3.5-5.0); Calcium 9.3 mg/dL (8.4-10.2); Potassium 3.7 mmol/L (3.5-5.1); Total Bilirubin 0.8 mg/dL (0.2-1.3); Total Protein 7.9 g/dL (6.3-8.2)
[2018-06-22] MEDS ORDERED: NALOXONE 0.4 MG/ML 1 ML VIAL IV PRN (02:11)
[2018-06-22] MEDS ORDERED: SODIUM CHLORIDE 0.9% 1,400 ML IV ONE (02:14)
[2018-06-22] MEDS: SODIUM CHLORIDE 0.9% 1,000 ML IV SCH (03:12)
[2018-06-22 03:37] LABS: INR 2.8 (<1.2); Partial Thromboplastin Time 30.8 sec (22.0-30.0); Prothrombin Time 24.7 sec (9.0-12.0)
[2018-06-22] MEDS ORDERED: ONDANSETRON 4 MG/2 ML VIAL IVP PRN (03:41)
[2018-06-22 05:15] LABS: Appearance,Urine Clear (Clear); Bilirubin,Urine Negative (Negative); Blood,Urine Negative (Negative); Color,Urine Yellow; Glucose,Urine (UA) Negative (Negative); Ketones,Urine Negative (Negative); Leukocyte Esterase,Urine Negative (Negative); Nitrite,Urine Negative (Negative); Protein,Urine Negative (Negative); Specific Gravity,Urine 1.015 (1.001-1.035); Urobilinogen,Urine <2.0 mg/dL (<2.0)
[2018-06-22 07:31] LABS: Glucose,Whole Blood 133 mg/dL (75-99)
[2018-06-22] MEDS: LOSARTAN 25 MG TAB PO SCH (08:48)
[2018-06-22] MEDS: TORSEMIDE 20 MG TAB PO SCH (08:49)
[2018-06-22] MEDS: SPIRONOLACTONE 25 MG TAB PO SCH (08:49)
[2018-06-22] MEDS: CARVEDILOL 3.125 MG TAB PO SCH ×3 (08:50→16:25)
[2018-06-22] MEDS: glipiZIDE 10 MG TAB PO SCH ×2 (08:50→16:25)
[2018-06-22] MEDS: metFORMIN 500 MG TAB PO SCH ×2 (08:50→21:53)
[2018-06-22] MEDS: DOFETILIDE 500 MCG CAP PO SCH ×2 (08:50→21:53)
[2018-06-22] MEDS: MECLIZINE 12.5 MG TAB PO SCH ×2 (08:50→21:53)
[2018-06-22] MEDS: ALLOPURINOL 300 MG TAB PO SCH (08:50)
[2018-06-22] MEDS: MULTIVITAMINS, THERA 1 EACH TAB PO SCH (08:51)
[2018-06-22 11:57] LABS: Glucose,Whole Blood 158 mg/dL (75-99)
[2018-06-22 12:03] LABS: INR 2.9 (<1.2); Prothrombin Time 25.8 sec (9.0-12.0)
[2018-06-22 12:15] LABS: Albumin 3.7 g/dL (3.5-5.0); Calcium 8.2 mg/dL (8.4-10.2); Potassium 3.5 mmol/L (3.5-5.1); Total Bilirubin 0.6 mg/dL (0.2-1.3); Total Protein 6.9 g/dL (6.3-8.2)
[2018-06-22] MEDS: BUDESONIDE 0.5 MG/2 ML NEBU INHALATION SCH ×2 (12:19→19:58)
[2018-06-22] MEDS ORDERED: SODIUM CHLORIDE 0.9% 1,000 ML IV STA (12:38)
--- NOTE | 2018-06-22 12:50 | P.HPIM ---
History of Present Illness H&P Date: 06/22/18 Tristian Galloway is a 73-year-old male who presented to [facility] emergency room with a 5 day history of abdominal pain and vomiting patient states that his symptoms were worsening and he decided to come to emergency room for evaluation. In the emergency room patient had a computed tomography scan of the abdomen and pelvis that revealed evidence of fluid-filled stomach, dilated proximal small bowel consistent with partial mechanical obstruction or ileus, patient was admitted to medical floor surgical consultation was requested for further evaluation. Patient stated that in 2013 he had a colonoscopy that revealed a large polyp that was not amenable to removal by colonoscopy, he had an open surgery and 4 inches of his colon were removed. His medical history also is significant for atrial fibrillation diagnosed in 2011, patient is maintained on Coumadin. He also has a known history of hypertension, hyperlipidemia, diabetes mellitus, obstructive sleep apnea and gout. Patient was seen and examined on the medical floor on 06/22/2014 at this time he is alert and oriented 3 he is complaining of mild abdominal pain no vomiting at this time. He had a bowel movement earlier this morning. He denies any fever or chills no headache or dizziness no chest pain no shortness of breath no cough no nausea or vomiting he has mild abdominal pain, and no urinary symptoms. Past Medical History Past Medical History: Atrial Fibrillation, COPD, Diabetes Mellitus, Hyperlipidemia, Sleep Apnea/CPAP/BIPAP Additional Past Medical History / Comment(s): cardiomyopathy. arthritis. gout History of Any Multi-Drug Resistant Organisms: None Reported Date of last positivie culture/infection: unknown if pt had MRSA or not after bowel surgery Past Surgical History: Bowel Resection, Pacemaker Additional Past Surgical History / Comment(s): Sinus surgery. VIANEY, bilateral cataract removal with lens implants Past Anesthesia/Blood Transfusion Reactions: No Reported Reaction Type of Cardiac Device: Permanent Pacemaker Device Placement Date:: 10/17/2012 Past Psychological History: Depression Smoking Status: Never smoker Past Alcohol Use History: Rare Past Drug Use History: None Reported - Past Family History Father Additional Family Medical History / Comment(s): "hardening of the arteries" Mother Additional Family Medical History / Comment(s): "water in the lungs" at 95 Medications and Allergies Home Medications Medication Instructions Recorded Confirmed Type Budesonide [Pulmicort] 0.5 mg INHALATION RT-BID 11/20/13 10/03/17 History Carvedilol [Coreg] 3.125 mg PO BID-W/MEALS 11/20/13 10/03/17 History Dofetilide [Tikosyn] 500 mcg PO BID 11/20/13 10/03/17 History Spironolactone [Aldactone] 12.5 mg PO Q48H 11/20/13 10/03/17 History Warfarin [Coumadin] 7.5 mg PO SUTUTH 11/20/13 10/03/17 History glipiZIDE [Glucotrol] 10 mg PO AC-BID 11/20/13 10/03/17 History metFORMIN HCL [Glucophage] 500 mg PO BID 11/20/13 10/03/17 History Allopurinol [Zyloprim] 300 mg PO DAILY 11/21/14 10/03/17 History Losartan [Cozaar] 25 mg PO DAILY 11/21/14 10/03/17 History Lovastatin [Mevacor] 20 mg PO HS 11/21/14 10/03/17 History Acetaminophen Tab [Tylenol] 325 mg PO QID PRN MDD 6 TABLETS 07/12/16 10/03/17 History Ergocalciferol [Vitamin D2 50,000 unit PO HODGES 07/12/16 10/03/17 History (DRISDOL)] Warfarin [Coumadin] 5 mg PO MOWEFRSA 07/12/16 10/03/17 History Meclizine [Antivert] 25 mg PO BID 10/03/17 10/03/17 History Multivitamins, Thera [Multivitamin 1 tab PO DAILY 10/03/17 10/03/17 History (formulary)] Torsemide [Demadex] 40 mg PO DAILY 10/03/17 10/03/17 History Allergies Allergy/AdvReac Type Severity Reaction Status Date / Time No Known Allergies Allergy Verified 10/03/17 16:00 Physical Exam Vitals: Vital Signs Temp Pulse Pulse Resp BP BP BP 06/22/18 12:25 82 06/22/18 12:19 82 06/22/18 11:12 83 98/60 06/22/18 10:30 112/67 06/22/18 07:00 97.9 F 60 20 103/62 06/22/18 04:48 98.0 F 79 20 108/65 06/22/18 03:41 97.5 F L 84 20 104/62 06/22/18 03:00 81 22 90/62 06/22/18 02:00 80 22 86/52 06/22/18 01:02 80 20 99/61 06/22/18 01:00 63 22 87/58 06/22/18 00:00 97.5 F L 82 20 92/58 Pulse Ox 06/22/18 12:25 06/22/18 12:19 06/22/18 11:12 94 L 06/22/18 10:30 06/22/18 07:00 91 L 06/22/18 04:48 94 L 06/22/18 03:41 90 L 06/22/18 03:00 90 L 06/22/18 02:00 92 L 06/22/18 01:02 88 L 06/22/18 01:00 93 L 06/22/18 00:00 95 Intake and Output 06/21/18 06/22/18 06/22/18 22:59 06:59 14:59 Intake Total 200 Output Total 300 Balance -100 Intake: Oral 200 Output: Urine 300 Other: Voiding Method Toilet # Bowel Movements 0 1 Weight 146.964 kg In general patient is alert and oriented 3 in no apparent distress HEENT head normocephalic and atraumatic Neck is supple no JVD no goiter no lymphadenopathy Chest exam reveals a few scattered crackles bilaterally no wheezing Cardiac exam reveals irregular heart sounds S1 and S2 no gallops no murmurs Abdomen is soft with mild diffuse tenderness mostly in the epigastric area no organomegaly no palpable masses bowel sounds are present in all 4 quadrants Extremity exam reveals minimal edema with chronic stasis changes Neurological examination reveals no gross focal deficit Results CBC & Chem 7: 06/22/18 00:55 06/22/18 11:08 Labs: Abnormal Lab Results - Last 24 Hours (Table) 06/22/18 06/22/18 06/22/18 Range/Units 00:55 00:55 00:55 RDW 15.8 H (11.5-15.5) % PT (9.0-12.0) sec INR (<1.2) APTT (22.0-30.0) sec Sodium (137-145) mmol/L Chloride 90 L (98-107) mmol/L BUN 64 H (9-20) mg/dL Creatinine 1.39 H (0.66-1.25) mg/dL Glucose 128 H (74-99) mg/dL POC Glucose (mg/dL) (75-99) mg/dL Plasma Lactic Acid Jarvis 2.1 H* (0.7-2.0) mmol/L Calcium (8.4-10.2) mg/dL 06/22/18 06/22/18 06/22/18 Range/Units 00:55 07:24 11:08 RDW (11.5-15.5) % PT 24.7 H 25.8 H (9.0-12.0) sec INR 2.8 H 2.9 H (<1.2) APTT 30.8 H (22.0-30.0) sec Sodium (137-145) mmol/L Chloride (98-107) mmol/L BUN (9-20) mg/dL Creatinine (0.66-1.25) mg/dL Glucose (74-99) mg/dL POC Glucose (mg/dL) 133 H (75-99) mg/dL Plasma Lactic Acid Jarvis (0.7-2.0) mmol/L Calcium (8.4-10.2) mg/dL 06/22/18 06/22/18 Range/Units 11:08 11:50 RDW (11.5-15.5) % PT (9.0-12.0) sec INR (<1.2) APTT (22.0-30.0) sec Sodium 136 L (137-145) mmol/L Chloride 96 L (98-107) mmol/L BUN 64 H (9-20) mg/dL Creatinine 1.47 H (0.66-1.25) mg/dL Glucose 150 H (74-99) mg/dL POC Glucose (mg/dL) 158 H (75-99) mg/dL Plasma Lactic Acid Jarvis (0.7-2.0) mmol/L Calcium 8.2 L (8.4-10.2) mg/dL Thrombosis Risk Factor Assmnt - Choose All That Apply Any of the Below Risk Factors Present?: Yes Each Factor Represents 1 point: Abnormal pulmonary function (COPD), Age 41-60 years, Obesity (BMI >25) Other Risk Factors: Yes Each Risk Factor Represents 2 Points: Age 61-74 years Other congenital or acquired thrombophilia - If yes, enter type in comment: No Thrombosis Risk Factor Assessment Total Risk Factor Score: 5 Thrombosis Risk Factor Assessment Level: High Risk Assessment and Plan Plan: #1 abdominal pain with computed tomography scan finding compatible with partial small bowel obstruction versus ileus. At this time patient will be kept on clear liquid diet, surgical consultation is requested for evaluation, continue IV fluid. #2 underlying history of hypertension, well controlled at this time #3 underlying history of hyperlipidemia #4 underlying history of atrial fibrillation maintained on Coumadin will continue with Coumadin at this time if any surgical intervention is recommended will reverse anticoagulation at that point. #5 underlying history of obstructive sleep apnea #6 underlying history of diabetes mellitus #7 underlying history of gout #8 underlying history of chronic obstructive pulmonary disease #9 evidence of acute renal failure with elevated BUN at 64 and elevated creatinine at 1.47 IV fluid rate was increased to 75 mL an hour we'll monitor kidney function closely At this time will continue with current management patient is clinically stable Will check echocardiogram and EKG in anticipation of any possible surgical intervention Will follow during this admission for medical management
--- NOTE | 2018-06-22 14:38 | P.GSCN ---
History of Present Illness Consult date: 06/22/18 Reason for Consult: Abdominal pain, nausea, vomiting History of present illness: The patient's a 73-year-old man who began feeling ill Sunday night. He had some nausea and vomiting. On Sunday he said he had nausea and vomiting all day. He felt a little better on stay but didn't eat much. they had their family Thanksgiving and he said he again didn't eat much. Yesterday began having increasing pain with nausea and vomiting and so came into the emergency department. He denied any fevers or chills. No one else is been ill. He does have a history of a colon resection for a polyp in the past. He has not had a follow-up colonoscopy since that operation. No blood in the stools or dark tarry stools. No weight loss. Complaining of a lot of belching today. He is passing some gas. Denies history of ulcer disease. He normally doesn't have any problems with early satiety. He has been diabetic greater than 20 years. Review of Systems All systems: negative Past Medical History Past Medical History: Atrial Fibrillation, COPD, Diabetes Mellitus, Hyperlipidemia, Sleep Apnea/CPAP/BIPAP Additional Past Medical History / Comment(s): cardiomyopathy. arthritis. gout History of Any Multi-Drug Resistant Organisms: None Reported Year Discovered:: unknown if pt had MRSA or not after bowel surgery Past Surgical History: Bowel Resection (Colon resection for large polyp), Pacemaker Additional Past Surgical History / Comment(s): Sinus surgery. VIANEY, bilateral cataract removal with lens implants Past Anesthesia/Blood Transfusion Reactions: No Reported Reaction Type of Cardiac Device: Permanent Pacemaker Device Placement Date:: 10/17/2012 Past Psychological History: Depression Smoking Status: Never smoker Past Alcohol Use History: Rare Past Drug Use History: None Reported - Past Family History Father Additional Family Medical History / Comment(s): "hardening of the arteries" Mother Additional Family Medical History / Comment(s): "water in the lungs" at 95 Medications and Allergies Home Medications Medication Instructions Recorded Confirmed Type Budesonide [Pulmicort] 0.5 mg INHALATION RT-BID 11/20/13 10/03/17 History Carvedilol [Coreg] 3.125 mg PO BID-W/MEALS 11/20/13 10/03/17 History Dofetilide [Tikosyn] 500 mcg PO BID 11/20/13 10/03/17 History Spironolactone [Aldactone] 12.5 mg PO Q48H 11/20/13 10/03/17 History Warfarin [Coumadin] 7.5 mg PO SUTUTH 11/20/13 10/03/17 History glipiZIDE [Glucotrol] 10 mg PO AC-BID 11/20/13 10/03/17 History metFORMIN HCL [Glucophage] 500 mg PO BID 11/20/13 10/03/17 History Allopurinol [Zyloprim] 300 mg PO DAILY 11/21/14 10/03/17 History Losartan [Cozaar] 25 mg PO DAILY 11/21/14 10/03/17 History Lovastatin [Mevacor] 20 mg PO HS 11/21/14 10/03/17 History Acetaminophen Tab [Tylenol] 325 mg PO QID PRN MDD 6 TABLETS 07/12/16 10/03/17 History Ergocalciferol [Vitamin D2 50,000 unit PO HODGES 07/12/16 10/03/17 History (DRISDOL)] Warfarin [Coumadin] 5 mg PO MOWEFRSA 07/12/16 10/03/17 History Meclizine [Antivert] 25 mg PO BID 10/03/17 10/03/17 History Multivitamins, Thera [Multivitamin 1 tab PO DAILY 10/03/17 10/03/17 History (formulary)] Torsemide [Demadex] 40 mg PO DAILY 10/03/17 10/03/17 History Allergies Allergy/AdvReac Type Severity Reaction Status Date / Time No Known Allergies Allergy Verified 10/03/17 16:00 Surgical - Exam Osteopathic Statement: *. No significant issues noted on an osteopathic structural exam other than those noted in the History and Physical/Consult. Vital Signs Temp Pulse Resp BP Pulse Ox 97.5 F L 82 20 92/58 95 06/22/18 00:00 06/22/18 00:00 06/22/18 00:00 06/22/18 00:00 06/22/18 00:00 - General Morbidly obese, dyspneic with limited activity in the room (going from laying down to standing up) no distress - Eyes normal ocular movement - ENT normal mucosa - Neck trachea midline - Respiratory normal respiratory effort, clear to auscultation - Cardiovascular Rhythm: irregularly irregular Abnormal Heart Sounds: no systolic murmur - Abdomen Obese Abdomen: soft, non tender, bowel sounds, no guarding, no rigid, no rebound Results - Labs 06/22/18 00:55 06/22/18 11:08 Abnormal Lab Results - Last 24 Hours (Table) 06/22/18 06/22/18 06/22/18 Range/Units 00:55 00:55 00:55 RDW 15.8 H (11.5-15.5) % PT (9.0-12.0) sec INR (<1.2) APTT (22.0-30.0) sec Sodium (137-145) mmol/L Chloride 90 L (98-107) mmol/L BUN 64 H (9-20) mg/dL Creatinine 1.39 H (0.66-1.25) mg/dL Glucose 128 H (74-99) mg/dL POC Glucose (mg/dL) (75-99) mg/dL Plasma Lactic Acid Jarvis 2.1 H* (0.7-2.0) mmol/L Calcium (8.4-10.2) mg/dL 06/22/18 06/22/18 06/22/18 Range/Units 00:55 07:24 11:08 RDW (11.5-15.5) % PT 24.7 H 25.8 H (9.0-12.0) sec INR 2.8 H 2.9 H (<1.2) APTT 30.8 H (22.0-30.0) sec Sodium (137-145) mmol/L Chloride (98-107) mmol/L BUN (9-20) mg/dL Creatinine (0.66-1.25) mg/dL Glucose (74-99) mg/dL POC Glucose (mg/dL) 133 H (75-99) mg/dL Plasma Lactic Acid Jarvis (0.7-2.0) mmol/L Calcium (8.4-10.2) mg/dL 06/22/18 06/22/18 Range/Units 11:08 11:50 RDW (11.5-15.5) % PT (9.0-12.0) sec INR (<1.2) APTT (22.0-30.0) sec Sodium 136 L (137-145) mmol/L Chloride 96 L (98-107) mmol/L BUN 64 H (9-20) mg/dL Creatinine 1.47 H (0.66-1.25) mg/dL Glucose 150 H (74-99) mg/dL POC Glucose (mg/dL) 158 H (75-99) mg/dL Plasma Lactic Acid Jarvis (0.7-2.0) mmol/L Calcium 8.2 L (8.4-10.2) mg/dL Diabetes panel 06/22/18 06/22/18 Range/Units 00:55 11:08 Sodium 137 136 L (137-145) mmol/L Potassium 3.7 3.5 (3.5-5.1) mmol/L Chloride 90 L 96 L (98-107) mmol/L Carbon Dioxide 30 27 (22-30) mmol/L BUN 64 H 64 H (9-20) mg/dL Creatinine 1.39 H 1.47 H (0.66-1.25) mg/dL Glucose 128 H 150 H (74-99) mg/dL Calcium 9.3 8.2 L (8.4-10.2) mg/dL AST 57 42 (17-59) U/L ALT 36 39 (21-72) U/L Alkaline Phosphatase 49 45 (38-126) U/L Total Protein 7.9 6.9 (6.3-8.2) g/dL Albumin 4.4 3.7 (3.5-5.0) g/dL Calcium panel 06/22/18 06/22/18 Range/Units 00:55 11:08 Calcium 9.3 8.2 L (8.4-10.2) mg/dL Albumin 4.4 3.7 (3.5-5.0) g/dL Pituitary panel 06/22/18 06/22/18 Range/Units 00:55 11:08 Sodium 137 136 L (137-145) mmol/L Potassium 3.7 3.5 (3.5-5.1) mmol/L Chloride 90 L 96 L (98-107) mmol/L Carbon Dioxide 30 27 (22-30) mmol/L BUN 64 H 64 H (9-20) mg/dL Creatinine 1.39 H 1.47 H (0.66-1.25) mg/dL Glucose 128 H 150 H (74-99) mg/dL Calcium 9.3 8.2 L (8.4-10.2) mg/dL Adrenal panel 06/22/18 06/22/18 Range/Units 00:55 11:08 Sodium 137 136 L (137-145) mmol/L Potassium 3.7 3.5 (3.5-5.1) mmol/L Chloride 90 L 96 L (98-107) mmol/L Carbon Dioxide 30 27 (22-30) mmol/L BUN 64 H 64 H (9-20) mg/dL Creatinine 1.39 H 1.47 H (0.66-1.25) mg/dL Glucose 128 H 150 H (74-99) mg/dL Calcium 9.3 8.2 L (8.4-10.2) mg/dL Total Bilirubin 0.8 0.6 (0.2-1.3) mg/dL AST 57 42 (17-59) U/L ALT 36 39 (21-72) U/L Alkaline Phosphatase 49 45 (38-126) U/L Total Protein 7.9 6.9 (6.3-8.2) g/dL Albumin 4.4 3.7 (3.5-5.0) g/dL - Imaging CT scan - abdomen: report reviewed Assessment and Plan (1) Nausea and vomiting Current Visit: Yes Status: Acute Code(s): R11.2 - NAUSEA WITH VOMITING, UNSPECIFIED SNOMED Code(s): 48754510 (2) Abdominal pain Current Visit: Yes Status: Acute Code(s): R10.9 - UNSPECIFIED ABDOMINAL PAIN SNOMED Code(s): 66508146 (3) Hypertension Current Visit: Yes Status: Acute Code(s): I10 - ESSENTIAL (PRIMARY) HYPERTENSION SNOMED Code(s): 18042388 (4) Obstructive sleep apnea Current Visit: Yes Status: Acute Code(s): G47.33 - OBSTRUCTIVE SLEEP APNEA ( ADULT) (PEDIATRIC) SNOMED Code(s): 52912885 (5) History of colon polyps Current Visit: Yes Status: Acute Code(s): Z86.010 - PERSONAL HISTORY OF COLONIC POLYPS SNOMED Code(s): 605293929 (6) Atrial fibrillation Current Visit: Yes Status: Acute Code(s): I48.91 - UNSPECIFIED ATRIAL FIBRILLATION SNOMED Code(s): 77477594 (7) Diabetes Current Visit: Yes Status: Acute Code(s): E11.9 - TYPE 2 DIABETES MELLITUS WITHOUT COMPLICATIONS SNOMED Code(s): 89658128 (8) COPD (chronic obstructive pulmonary disease) Current Visit: Yes Status: Acute Code(s): J44.9 - CHRONIC OBSTRUCTIVE PULMONARY DISEASE, UNSPECIFIED SNOMED Code(s): 18558861 Plan: CT looks more like an ileus than an obstructive pattern. He is having quite a bit of belching today so I would not advance his diet. Hydrate. Serial exams. DVT and ulcer prophylaxis. Repeat acute abdominal series in the morning. He will need a colonoscopy done as outpatient. Further recommendations to follow.
[2018-06-22] MEDS: ACETAMINOPHEN TAB 325 MG TAB PO PRN (16:28)
[2018-06-22 16:37] LABS: Glucose,Whole Blood 166 mg/dL (75-99)
[2018-06-22] MEDS ORDERED: WARFARIN 5 MG TAB PO SCH (18:00)
[2018-06-22 21:08] LABS: Glucose,Whole Blood 140 mg/dL (75-99)
[2018-06-22] MEDS: ATORVASTATIN 10 MG TAB PO SCH (21:53)
[2018-06-23] MEDS: SODIUM CHLORIDE 0.9% 1,000 ML IV SCH (02:15)
[2018-06-23] MEDS: ACETAMINOPHEN TAB 325 MG TAB PO PRN (05:22)
[2018-06-23 07:33] LABS: Glucose,Whole Blood 139 mg/dL (75-99)
[2018-06-23] MEDS: BUDESONIDE 0.5 MG/2 ML NEBU INHALATION SCH ×2 (07:38→19:29)
[2018-06-23] MEDS: TORSEMIDE 20 MG TAB PO SCH (08:07)
[2018-06-23] MEDS: MECLIZINE 12.5 MG TAB PO SCH ×2 (08:07→21:38)
[2018-06-23] MEDS: CARVEDILOL 3.125 MG TAB PO SCH ×2 (08:08→16:57)
[2018-06-23] MEDS: ALLOPURINOL 300 MG TAB PO SCH (08:08)
[2018-06-23] MEDS: MULTIVITAMINS, THERA 1 EACH TAB PO SCH (08:08)
[2018-06-23] MEDS: metFORMIN 500 MG TAB PO SCH ×2 (08:08→21:38)
[2018-06-23] MEDS: DOFETILIDE 500 MCG CAP PO SCH ×2 (08:08→21:38)
[2018-06-23] MEDS: glipiZIDE 10 MG TAB PO SCH ×2 (08:08→17:40)
[2018-06-23 08:57] LABS: Albumin 3.4 g/dL (3.5-5.0); Calcium 7.7 mg/dL (8.4-10.2); Potassium 3.6 mmol/L (3.5-5.1); Total Bilirubin 0.4 mg/dL (0.2-1.3); Total Protein 6.5 g/dL (6.3-8.2)
[2018-06-23 09:00] LABS: Basophils % (A) 0 %; Eosinophils % (A) 1 %; HCT 43.9 % (39.0-53.0); HGB 13.9 gm/dL (13.0-17.5); Lymphocytes # (A) 1.4 k/uL (1.0-4.8); Lymphocytes % (A) 19 %; MCH 29.2 pg (25.0-35.0); MCHC 31.7 g/dL (31.0-37.0); MCV 91.9 fL (80.0-100.0); Monocytes % (A) 13 %; Neutrophils # (A) 4.5 k/uL (1.3-7.7); Neutrophils % (A) 64 %; Platelet Count 203 k/uL (150-450); RBC 4.77 m/uL (4.30-5.90); RDW 15.4 % (11.5-15.5); WBC 7.1 k/uL (3.8-10.6)
[2018-06-23] MEDS ORDERED: ERGOCALCIFEROL 50,000 UNIT CAP PO SCH (09:00)
[2018-06-23 09:07] LABS: INR 4.2 (<1.2); Prothrombin Time 37.5 sec (9.0-12.0)
[2018-06-23] MEDS: LOSARTAN 25 MG TAB PO SCH (09:49)
--- NOTE | 2018-06-23 10:04 | XR ---
EXAMINATION TYPE: XR abdomen 2V DATE OF EXAM: 06/23/2018 COMPARISON: NONE HISTORY: Pain TECHNIQUE: Single supine KUB image of the abdomen is obtained FINDINGS: Mild distention of small and large bowel may reflect mild ileus. No convincing evidence for pneumoperitoneum. No unusual calcifications. The lung bases are clear. The osseous structures are intact. IMPRESSION: 1. Overall nonobstructive bowel gas pattern. Correlate for mild ileus.
[2018-06-23] MEDS ORDERED: SODIUM CHLORIDE 0.9% 1,000 ML IV STA (12:11)
--- NOTE | 2018-06-23 12:19 | P.PN ---
Subjective Progress Note Date: 06/23/18 Principal diagnosis: Abdominal pain The patient is feeling somewhat better today. There is some abdominal pain but less than when he was admitted. He denies nausea or vomiting. Denies any significant heartburn or indigestion. He's passing gas. Tolerating clear liquids. Objective - Vital Signs Vital signs: Vital Signs Temp 99.5 F 06/23/18 07:00 Pulse 82 06/23/18 07:48 Resp 20 06/23/18 07:00 BP 126/66 06/23/18 07:00 Pulse Ox 84 L 06/23/18 07:40 Intake & Output 06/22/18 06/23/18 06/23/18 18:59 06:59 18:59 Intake Total 840 950 Balance 840 950 Weight 146.964 kg Intake: Oral 840 950 Other: Voiding Method Toilet # Voids 2 3 2 # Bowel Movements 5 5 1 - Constitutional General appearance: Present: morbidly obese, no acute distress - Respiratory Respiratory: bilateral: diminished, negative: wheezing - Gastrointestinal Gastrointestinal Comment(s): Obese General gastrointestinal: Present: decreased bowel sounds, soft, tenderness ( Mild epigastric and left upper quadrant tenderness without guarding or rebound) - Labs CBC & Chem 7: 06/23/18 08:12 06/23/18 08:12 Labs: Abnormal Lab Results - Last 24 Hours (Table) 06/22/18 06/22/18 06/22/18 Range/Units 11:08 16:26 21:03 PT (9.0-12.0) sec INR (<1.2) Sodium 136 L (137-145) mmol/L Chloride 96 L (98-107) mmol/L BUN 64 H (9-20) mg/dL Creatinine 1.47 H (0.66-1.25) mg/dL Glucose 150 H (74-99) mg/dL POC Glucose (mg/dL) 166 H 140 H (75-99) mg/dL Calcium 8.2 L (8.4-10.2) mg/dL Albumin (3.5-5.0) g/dL 06/23/18 06/23/18 06/23/18 Range/Units 07:27 08:12 08:12 PT 37.5 H (9.0-12.0) sec INR 4.2 H (<1.2) Sodium 136 L (137-145) mmol/L Chloride (98-107) mmol/L BUN 62 H (9-20) mg/dL Creatinine 1.46 H (0.66-1.25) mg/dL Glucose 142 H (74-99) mg/dL POC Glucose (mg/dL) 139 H (75-99) mg/dL Calcium 7.7 L (8.4-10.2) mg/dL Albumin 3.4 L (3.5-5.0) g/dL - Imaging and Cardiology Abdominal x-ray: report reviewed, image reviewed Assessment and Plan (1) Nausea and vomiting Current Visit: Yes Status: Acute Code(s): R11.2 - NAUSEA WITH VOMITING, UNSPECIFIED SNOMED Code(s): 60044986 (2) Abdominal pain Current Visit: Yes Status: Acute Code(s): R10.9 - UNSPECIFIED ABDOMINAL PAIN SNOMED Code(s): 88896172 (3) Hypertension Current Visit: Yes Status: Acute Code(s): I10 - ESSENTIAL (PRIMARY) HYPERTENSION SNOMED Code(s): 75260676 (4) Obstructive sleep apnea Current Visit: Yes Status: Acute Code(s): G47.33 - OBSTRUCTIVE SLEEP APNEA ( ADULT) (PEDIATRIC) SNOMED Code(s): 93085549 (5) History of colon polyps Current Visit: Yes Status: Acute Code(s): Z86.010 - PERSONAL HISTORY OF COLONIC POLYPS SNOMED Code(s): 598242520 (6) Atrial fibrillation Current Visit: Yes Status: Acute Code(s): I48.91 - UNSPECIFIED ATRIAL FIBRILLATION SNOMED Code(s): 06694125 (7) Diabetes Current Visit: Yes Status: Acute Code(s): E11.9 - TYPE 2 DIABETES MELLITUS WITHOUT COMPLICATIONS SNOMED Code(s): 61896078 (8) COPD (chronic obstructive pulmonary disease) Current Visit: Yes Status: Acute Code(s): J44.9 - CHRONIC OBSTRUCTIVE PULMONARY DISEASE, UNSPECIFIED SNOMED Code(s): 09362714 Plan: Likely a ileus type pattern. We'll start him on full liquid diet and see how he tolerates that. He can be slowly advanced to a low residue. He will need outpatient colonoscopy due to history of a large colon polyp requiring colon resection.
--- NOTE | 2018-06-23 12:21 | P.PN ---
Subjective Progress Note Date: 06/23/18 Tristian Galloway is a 73-year-old male who presented to [facility] emergency room with a 5 day history of abdominal pain and vomiting patient states that his symptoms were worsening and he decided to come to emergency room for evaluation. In the emergency room patient had a computed tomography scan of the abdomen and pelvis that revealed evidence of fluid-filled stomach, dilated proximal small bowel consistent with partial mechanical obstruction or ileus, patient was admitted to medical floor surgical consultation was requested for further evaluation. Patient stated that in 2013 he had a colonoscopy that revealed a large polyp that was not amenable to removal by colonoscopy, he had an open surgery and 4 inches of his colon were removed. His medical history also is significant for atrial fibrillation diagnosed in 2011, patient is maintained on Coumadin. He also has a known history of hypertension, hyperlipidemia, diabetes mellitus, obstructive sleep apnea and gout. On 06/23/2018 Patient was seen and examined on the medical floor he is alert and oriented 3 he is complaining of mild abdominal pain no nausea or vomiting at this time. He is passing gas but no bowel movements today. He denies any fever or chills no headache or dizziness no chest pain no shortness of breath no cough no nausea or vomiting he has mild abdominal pain, and no urinary symptoms. Objective - Vital Signs Vital signs: Vital Signs Temp 99.5 F 06/23/18 07:00 Pulse 82 06/23/18 07:48 Resp 20 06/23/18 07:00 BP 126/66 06/23/18 07:00 Pulse Ox 84 L 06/23/18 07:40 Intake & Output 06/22/18 06/23/18 06/23/18 18:59 06:59 18:59 Intake Total 840 950 Balance 840 950 Weight 146.964 kg Intake: Oral 840 950 Other: Voiding Method Toilet # Voids 2 3 2 # Bowel Movements 5 5 1 - Exam In general patient is alert and oriented 3 in no apparent distress HEENT head normocephalic and atraumatic Neck is supple no JVD no goiter no lymphadenopathy Chest exam reveals a few scattered crackles bilaterally no wheezing Cardiac exam reveals irregular heart sounds S1 and S2 no gallops no murmurs Abdomen is soft with mild diffuse tenderness mostly in the epigastric area no organomegaly no palpable masses bowel sounds are present in all 4 quadrants Extremity exam reveals minimal edema with chronic stasis changes Neurological examination reveals no gross focal deficit - Labs CBC & Chem 7: 06/23/18 08:12 18 08:12 Labs: Abnormal Lab Results - Last 24 Hours (Table) 06/22/18 06/22/18 06/22/18 Range/Units 11:08 16:26 21:03 PT (9.0-12.0) sec INR (<1.2) Sodium 136 L (137-145) mmol/L Chloride 96 L (98-107) mmol/L BUN 64 H (9-20) mg/dL Creatinine 1.47 H (0.66-1.25) mg/dL Glucose 150 H (74-99) mg/dL POC Glucose (mg/dL) 166 H 140 H (75-99) mg/dL Calcium 8.2 L (8.4-10.2) mg/dL Albumin (3.5-5.0) g/dL 06/23/18 06/23/18 06/23/18 Range/Units 07:27 08:12 08:12 PT 37.5 H (9.0-12.0) sec INR 4.2 H (<1.2) Sodium 136 L (137-145) mmol/L Chloride (98-107) mmol/L BUN 62 H (9-20) mg/dL Creatinine 1.46 H (0.66-1.25) mg/dL Glucose 142 H (74-99) mg/dL POC Glucose (mg/dL) 139 H (75-99) mg/dL Calcium 7.7 L (8.4-10.2) mg/dL Albumin 3.4 L (3.5-5.0) g/dL Assessment and Plan Plan: #1 abdominal pain with computed tomography scan finding compatible with partial small bowel obstruction versus ileus. At this time patient will be kept on clear liquid diet, surgical consultation is requested for evaluation, continue IV fluid. Patient is improving gradually he is passing gas he had a bowel movement yesterday he was evaluated by surgery and diet will be advanced. #2 underlying history of hypertension, well controlled at this time #3 underlying history of hyperlipidemia #4 underlying history of atrial fibrillation maintained on Coumadin will continue with Coumadin at this time if any surgical intervention is recommended will reverse anticoagulation at that point. #5 underlying history of obstructive sleep apnea #6 underlying history of diabetes mellitus #7 underlying history of gout #8 underlying history of chronic obstructive pulmonary disease #9 evidence of acute renal failure with elevated BUN at 64 and elevated creatinine at 1.47 IV fluid rate was increased to 75 mL an hour we'll monitor kidney function closely At this time will continue with current management patient is clinically stable Will check echocardiogram and EKG in anticipation of any possible surgical intervention Will follow during this admission for medical management
[2018-06-23 12:45] LABS: Glucose,Whole Blood 149 mg/dL (75-99)
[2018-06-23 17:18] LABS: Glucose,Whole Blood 133 mg/dL (75-99)
[2018-06-23] MEDS ORDERED: WARFARIN 7.5 MG TAB PO SCH (18:00)
[2018-06-23] MEDS ORDERED: WARFARIN 0.5 MG TAB PO ONE (18:00)
[2018-06-23 20:33] LABS: Glucose,Whole Blood 130 mg/dL (75-99)
[2018-06-23] MEDS: ATORVASTATIN 10 MG TAB PO SCH (21:38)
[2018-06-24 07:00] LABS: Glucose,Whole Blood 77 mg/dL (75-99)
[2018-06-24] MEDS: CARVEDILOL 3.125 MG TAB PO SCH ×3 (08:51→15:19)
[2018-06-24] MEDS: glipiZIDE 10 MG TAB PO SCH ×2 (08:51→17:40)
[2018-06-24] MEDS: MECLIZINE 12.5 MG TAB PO SCH ×2 (08:51→21:35)
[2018-06-24] MEDS: TORSEMIDE 20 MG TAB PO SCH (08:51)
[2018-06-24] MEDS: ALLOPURINOL 300 MG TAB PO SCH (08:51)
[2018-06-24] MEDS: metFORMIN 500 MG TAB PO SCH ×2 (08:51→21:35)
[2018-06-24] MEDS: SPIRONOLACTONE 25 MG TAB PO SCH (08:51)
[2018-06-24] MEDS: DOFETILIDE 500 MCG CAP PO SCH ×2 (08:51→21:35)
[2018-06-24] MEDS: MULTIVITAMINS, THERA 1 EACH TAB PO SCH (08:51)
[2018-06-24] MEDS: LOSARTAN 25 MG TAB PO SCH (08:52)
[2018-06-24] MEDS: BUDESONIDE 0.5 MG/2 ML NEBU INHALATION SCH ×2 (09:44→20:11)
--- NOTE | 2018-06-24 10:46 | P.PN ---
Subjective Progress Note Date: 06/24/18 Principal diagnosis: Abdominal pain The patient is seen on rounds. He's feeling better today. Had multiple bowel movements last night. Passing gas. Tolerated full liquid diet. Objective - Vital Signs Vital signs: Vital Signs Temp 97.8 F 06/24/18 06:20 Pulse 82 06/24/18 09:53 Resp 18 06/24/18 06:20 BP 87/55 06/24/18 08:57 Pulse Ox 91 L 06/24/18 06:20 Intake & Output 06/23/18 06/24/18 06/24/18 18:59 06:59 18:59 Intake Total 650 Balance 650 Weight 146.964 kg 146.964 kg Intake: Oral 650 Other: Voiding Method Toilet Toilet # Voids 2 3 1 # Bowel Movements 2 1 1 - Constitutional General appearance: Present: cooperative, morbidly obese, no acute distress - Gastrointestinal General gastrointestinal: Present: normal bowel sounds, soft. Absent: tenderness - Labs CBC & Chem 7: 06/23/18 08:12 06/23/18 08:12 Labs: Abnormal Lab Results - Last 24 Hours (Table) 06/23/18 06/23/18 06/23/18 Range/Units 12:30 17:16 20:32 POC Glucose (mg/dL) 149 H 133 H 130 H (75-99) mg/dL Assessment and Plan (1) Ileus Current Visit: Yes Status: Acute Code(s): K56.7 - ILEUS, UNSPECIFIED SNOMED Code(s): 992454270 (2) Nausea and vomiting Current Visit: Yes Status: Acute Code(s): R11.2 - NAUSEA WITH VOMITING, UNSPECIFIED SNOMED Code(s): 04147607 (3) Abdominal pain Current Visit: Yes Status: Acute Code(s): R10.9 - UNSPECIFIED ABDOMINAL PAIN SNOMED Code(s): 25435800 (4) Hypertension Current Visit: Yes Status: Acute Code(s): I10 - ESSENTIAL (PRIMARY) HYPERTENSION SNOMED Code(s): 55827747 (5) Obstructive sleep apnea Current Visit: Yes Status: Acute Code(s): G47.33 - OBSTRUCTIVE SLEEP APNEA ( ADULT) (PEDIATRIC) SNOMED Code(s): 93318072 (6) History of colon polyps Current Visit: Yes Status: Acute Code(s): Z86.010 - PERSONAL HISTORY OF COLONIC POLYPS SNOMED Code(s): 913672902 (7) Atrial fibrillation Current Visit: Yes Status: Acute Code(s): I48.91 - UNSPECIFIED ATRIAL FIBRILLATION SNOMED Code(s): 15202935 (8) Diabetes Current Visit: Yes Status: Acute Code(s): E11.9 - TYPE 2 DIABETES MELLITUS WITHOUT COMPLICATIONS SNOMED Code(s): 20051711 (9) COPD (chronic obstructive pulmonary disease) Current Visit: Yes Status: Acute Code(s): J44.9 - CHRONIC OBSTRUCTIVE PULMONARY DISEASE, UNSPECIFIED SNOMED Code(s): 46222658 Plan: The ileus seems to have resolved. His diet being advanced. I did discuss his need for colon cancer screening. He says his does not want him to have anything more. He did have a very large polyp requiring surgery. At minimum he should consider outpatient cologuard testing. Surgically improved.
--- NOTE | 2018-06-24 11:09 | P.PN ---
Subjective Progress Note Date: 06/24/18 Tristian Galloway is a 73-year-old male who presented to [facility] emergency room with a 5 day history of abdominal pain and vomiting patient states that his symptoms were worsening and he decided to come to emergency room for evaluation. In the emergency room patient had a computed tomography scan of the abdomen and pelvis that revealed evidence of fluid-filled stomach, dilated proximal small bowel consistent with partial mechanical obstruction or ileus, patient was admitted to medical floor surgical consultation was requested for further evaluation. Patient stated that in 2013 he had a colonoscopy that revealed a large polyp that was not amenable to removal by colonoscopy, he had an open surgery and 4 inches of his colon were removed. His medical history also is significant for atrial fibrillation diagnosed in 2011, patient is maintained on Coumadin. He also has a known history of hypertension, hyperlipidemia, diabetes mellitus, obstructive sleep apnea and gout. On 06/23/2018 Patient was seen and examined on the medical floor he is alert and oriented 3 he is complaining of mild abdominal pain no nausea or vomiting at this time. He is passing gas but no bowel movements today. He denies any fever or chills no headache or dizziness no chest pain no shortness of breath no cough no nausea or vomiting he has mild abdominal pain, and no urinary symptoms. On 06/24/2018 patient is alert and oriented 3. Patient did state he had bowel movement last night. Patient denies any nausea vomiting or diarrhea. Patient denies any chest pain or shortness breath. Patient denies any urinary burning or frequency. Objective - Vital Signs Vital signs: Vital Signs Temp 97.8 F 06/24/18 06:20 Pulse 82 06/24/18 09:53 Resp 18 06/24/18 06:20 BP 87/55 06/24/18 08:57 Pulse Ox 91 L 06/24/18 06:20 Intake & Output 06/23/18 06/24/18 06/24/18 18:59 06:59 18:59 Intake Total 650 Balance 650 Weight 146.964 kg 146.964 kg Intake: Oral 650 Other: Voiding Method Toilet Toilet # Voids 2 3 1 # Bowel Movements 2 1 1 - Exam Head normocephalic Neck supple Lungs clear to auscultation bilaterally no wheezing or crackles Heart regular rate and rhythm S1-S2, no rub or gallop Abdomen is soft nontender nondistended positive bowel sounds no hepatosplenomegaly Extremities no edema Neuro alert and orientated to 3 - Labs CBC & Chem 7: 06/23/18 08:12 06/23/18 08:12 Labs: Abnormal Lab Results - Last 24 Hours (Table) 06/23/18 06/23/18 06/23/18 Range/Units 12:30 17:16 20:32 POC Glucose (mg/dL) 149 H 133 H 130 H (75-99) mg/dL Assessment and Plan Assessment: #1 abdominal pain with computed tomography scan finding compatible with partial small bowel obstruction versus ileus. At this time patient will be kept on clear liquid diet, surgical consultation is requested for evaluation, continue IV fluid. Patient is improving gradually he is passing gas he had a bowel movement yesterday he was evaluated by surgery and diet will be advanced. Per surgical services ileus seems to be resolving. Per surgical services recommending colon cancer screening or at least outpatient Colorguard testing #2 underlying history of hypertension, well controlled at this time #3 underlying history of hyperlipidemia #4 underlying history of atrial fibrillation maintained on Coumadin will continue with Coumadin at this time if any surgical intervention is recommended will reverse anticoagulation at that point. #5 underlying history of obstructive sleep apnea #6 underlying history of diabetes mellitus #7 underlying history of gout #8 underlying history of chronic obstructive pulmonary disease #9 evidence of acute renal failure with elevated BUN at 64 and elevated creatinine at 1.47 IV fluid rate was increased to 75 mL an hour we'll monitor kidney function closely DVT prophylaxis Coumadin. GI prophylaxis Protonix I performed an examination of the patient and discussed their management with the Nurse Practitioner. I have reviewed the Nurse Practitioner's notes and agree with the documented findings and plan of care
[2018-06-24] MEDS: SODIUM CHLORIDE 0.9% 1,000 ML IV SCH (11:17)
[2018-06-24 11:20] LABS: Glucose,Whole Blood 135 mg/dL (75-99)
[2018-06-24 11:29] LABS: INR 4.3 (<1.2); Prothrombin Time 38.7 sec (9.0-12.0)
[2018-06-24 11:40] LABS: Albumin 3.3 g/dL (3.5-5.0); Calcium 7.8 mg/dL (8.4-10.2); Potassium 3.2 mmol/L (3.5-5.1); Total Bilirubin 0.4 mg/dL (0.2-1.3); Total Protein 6.4 g/dL (6.3-8.2)
[2018-06-24 11:47] LABS: Basophils % (A) 0 %; Eosinophils # (A) 0.1 k/uL (0-0.7); Eosinophils % (A) 1 %; HCT 42.8 % (39.0-53.0); HGB 13.8 gm/dL (13.0-17.5); Lymphocytes # (A) 1.4 k/uL (1.0-4.8); Lymphocytes % (A) 16 %; MCH 29.6 pg (25.0-35.0); MCHC 32.4 g/dL (31.0-37.0); MCV 91.5 fL (80.0-100.0); Mean Platelet Volume 7.1; Monocytes % (A) 12 %; Neutrophils # (A) 5.7 k/uL (1.3-7.7); Neutrophils % (A) 68 %; Platelet Count 198 k/uL (150-450); RBC 4.67 m/uL (4.30-5.90); RDW 15.4 % (11.5-15.5); WBC 8.3 k/uL (3.8-10.6)
[2018-06-24] MEDS ORDERED: Potassium Replacement Protocol 1 EACH MISC MISCELLANE PRN (11:49)
[2018-06-24] MEDS: POTASSIUM CHLORIDE ER 20 MEQ TAB.ER PO SCH ×2 (12:22→13:06)
--- NOTE | 2018-06-24 13:37 | ECHOF ---
Referral Reason:pre op evaluation MEASUREMENTS -------- HEIGHT: 149.9 cm WEIGHT: 147.0 kg BP: 98/60 RVIDd: 5.2 cm (< 3.3) IVSd: 1.2 cm (0.6 - 1.1) LVIDd: 3.6 cm (3.9 - 5.3) LVPWd: 1.3 cm (0.6 - 1.1) IVSs: 1.7 cm LVIDs: 2.4 cm LVPWs: 1.7 cm LA Diam: 2.9 cm (2.7 - 3.8) Ao Diam: 3.8 cm (2.0 - 3.7) AV Cusp: 2.5 cm (1.5 - 2.6) MV EXCURSION: 20.824 mm (> 18.000) MV EF SLOPE: 21 mm/s (70 - 150) EPSS: 0.1 cm MV E Lenin: 0.55 m/s MV DecT: 268 ms MV A Lenin: 0.70 m/s MV E/A Ratio: 0.79 RAP: 5.00 mmHg RVSP: 64.68 mmHg FINDINGS -------- Sinus rhythm. Pacerwire seen in RV and RA. This was a technically difficult study with suboptimal views. The left ventricular size is normal. There is mild concentric left ventricular hypertrophy. Overa ll left ventricular systolic function is normal with, an EF between 55 - 60 %. The right ventricle is severely enlarged. Normal LA size by volume 22+/-6 ml/m2. The right atrium was not well visualized. Lumason used There is mild aortic valve sclerosis. Mild mitral annular calcification present. Mild mitral regurgitation is present. Severe tricuspid regurgitation present. There is severe pulmonary hypertension. The right ventric ular systolic pressure, as measured by Doppler, is 64.68mmHg. There is no pulmonic regurgitation present. The aortic root is dilated measuring 3.8cm. IVC Not well visulized. There is no pericardial effusion. CONCLUSIONS -------- 1. Sinus rhythm. 2. Pacerwire seen in RV and RA. 3. This was a technically difficult study with suboptimal views. 4. The left ventricular size is normal. 5. There is mild concentric left ventricular hypertrophy. 6. Overall left ventricular systolic function is normal with, an EF between 55 - 60 %. 7. The right ventricle is severely enlarged. 8. Normal LA size by volume 22+/-6 ml/m2. 9. The right atrium was not well visualized. 10. Lumason used 11. There is mild aortic valve sclerosis. 12. Mild mitral annular calcification present. 13. Mild mitral regurgitation is present. 14. Severe tricuspid regurgitation present. 15. There is severe pulmonary hypertension. 16. There is no pulmonic regurgitation present. 17. The aortic root is dilated measuring 3.8cm. 18. IVC Not well visulized. 19. There is no pericardial effusion. BIBLICAL STUDIES PROFESSOR: Milvia Luna RDCS
[2018-06-24] MEDS ORDERED: POTASSIUM CHLORIDE ER 10 MEQ TAB.ER.PRT PO STA (16:52)
[2018-06-24] MEDS: ATORVASTATIN 10 MG TAB PO SCH (21:35)
[2018-06-25] MEDS: SODIUM CHLORIDE 0.9% 1,000 ML IV SCH ×2 (05:33→12:11)
[2018-06-25 07:46] LABS: Glucose,Whole Blood 93 mg/dL (75-99)
[2018-06-25] MEDS: ALLOPURINOL 300 MG TAB PO SCH (07:51)
[2018-06-25] MEDS: metFORMIN 500 MG TAB PO SCH ×2 (07:51→20:57)
[2018-06-25] MEDS: glipiZIDE 10 MG TAB PO SCH ×2 (07:51→16:52)
[2018-06-25] MEDS: CARVEDILOL 3.125 MG TAB PO SCH ×2 (07:51→16:51)
[2018-06-25] MEDS: DOFETILIDE 500 MCG CAP PO SCH ×2 (07:52→20:57)
[2018-06-25] MEDS: TORSEMIDE 20 MG TAB PO SCH (07:52)
[2018-06-25] MEDS: MULTIVITAMINS, THERA 1 EACH TAB PO SCH (07:52)
[2018-06-25] MEDS: LOSARTAN 25 MG TAB PO SCH (07:52)
[2018-06-25] MEDS: PANTOPRAZOLE 40 MG TABLET PO SCH (07:52)
[2018-06-25] MEDS: MECLIZINE 25 MG TAB PO SCH ×2 (08:45→20:57)
[2018-06-25] MEDS: BUDESONIDE 0.5 MG/2 ML NEBU INHALATION SCH ×2 (09:32→19:25)
[2018-06-25 09:33] LABS: Basophils % (A) 0 %; Eosinophils # (A) 0.1 k/uL (0-0.7); Eosinophils % (A) 1 %; HCT 40.7 % (39.0-53.0); HGB 12.7 gm/dL (13.0-17.5); Lymphocytes # (A) 1.7 k/uL (1.0-4.8); Lymphocytes % (A) 18 %; MCH 28.5 pg (25.0-35.0); MCHC 31.2 g/dL (31.0-37.0); MCV 91.3 fL (80.0-100.0); Mean Platelet Volume 7.1; Monocytes # (A) 0.8 k/uL (0-1.0); Monocytes % (A) 9 %; Neutrophils # (A) 6.3 k/uL (1.3-7.7); Neutrophils % (A) 69 %; Platelet Count 240 k/uL (150-450); RBC 4.46 m/uL (4.30-5.90); RDW 15.6 % (11.5-15.5); WBC 9.2 k/uL (3.8-10.6)
[2018-06-25 09:44] LABS: INR 4.3 (<1.2); Prothrombin Time 38.4 sec (9.0-12.0)
[2018-06-25 11:06] LABS: Calcium 7.8 mg/dL (8.4-10.2); Potassium 3.3 mmol/L (3.5-5.1)
[2018-06-25] MEDS ORDERED: Potassium Replacement Protocol 1 EACH MISC MISCELLANE PRN (11:22)
[2018-06-25] MEDS: POTASSIUM CHLORIDE ER 20 MEQ TAB.ER PO SCH ×2 (12:10→13:24)
[2018-06-25 12:21] LABS: Glucose,Whole Blood 76 mg/dL (75-99)
[2018-06-25] MEDS ORDERED: PHYTONADIONE ORAL 5 MG/5 ML ORAL.SYRG PO STA (13:02)
--- NOTE | 2018-06-25 13:11 | P.PN ---
Subjective Progress Note Date: 06/25/18 Tristian Galloway is a 73-year-old male who presented to [facility] emergency room with a 5 day history of abdominal pain and vomiting patient states that his symptoms were worsening and he decided to come to emergency room for evaluation. In the emergency room patient had a computed tomography scan of the abdomen and pelvis that revealed evidence of fluid-filled stomach, dilated proximal small bowel consistent with partial mechanical obstruction or ileus, patient was admitted to medical floor surgical consultation was requested for further evaluation. Patient stated that in 2013 he had a colonoscopy that revealed a large polyp that was not amenable to removal by colonoscopy, he had an open surgery and 4 inches of his colon were removed. His medical history also is significant for atrial fibrillation diagnosed in 2011, patient is maintained on Coumadin. He also has a known history of hypertension, hyperlipidemia, diabetes mellitus, obstructive sleep apnea and gout. On 06/23/2018 Patient was seen and examined on the medical floor he is alert and oriented 3 he is complaining of mild abdominal pain no nausea or vomiting at this time. He is passing gas but no bowel movements today. He denies any fever or chills no headache or dizziness no chest pain no shortness of breath no cough no nausea or vomiting he has mild abdominal pain, and no urinary symptoms. On 06/24/2018 patient is alert and oriented 3. Patient did state he had bowel movement last night. Patient denies any nausea vomiting or diarrhea. Patient denies any chest pain or shortness breath. Patient denies any urinary burning or frequency. On 06/25/2018 patient is alert and oriented 3. Patient is currently sitting up in chair. Patient did have multiple bowel movements last night. INR remains elevated at 4.3. Patient has not received Coumadin. Will give one- time dose of 2.5 of vitamin K and recheck in a.m. At this time patient denies chest pain or shortness of breath. Patient denies nausea vomiting or diarrhea. Patient denies any urinary burning and frequency. Patient has been tolerating a low fiber diet Objective - Vital Signs Vital signs: Vital Signs Temp 98.0 F 06/25/18 06:02 Pulse 88 06/25/18 09:35 Resp 20 06/25/18 06:02 BP 100/65 06/25/18 06:02 Pulse Ox 91 L 06/25/18 06:02 Intake & Output 06/24/18 06/25/18 06/25/18 18:59 06:59 18:59 Intake Total 2075 Balance 2075 Weight 146.964 kg Intake: Oral 2075 Other: Voiding Method Toilet Toilet # Voids 1 2 3 # Bowel Movements 2 2 - Exam Head normocephalic Neck supple Lungs clear to auscultation bilaterally no wheezing or crackles Heart regular rate and rhythm S1-S2, no rub or gallop Abdomen is soft nontender nondistended positive bowel sounds no hepatosplenomegaly Extremities no edema Neuro alert and orientated to 3 - Labs CBC & Chem 7: 06/25/18 09:10 06/25/18 09:10 Labs: Abnormal Lab Results - Last 24 Hours (Table) 06/25/18 06/25/18 06/25/18 Range/Units 09:10 09:10 09:10 Hgb 12.7 L (13.0-17.5) gm/dL RDW 15.6 H (11.5-15.5) % PT 38.4 H (9.0-12.0) sec INR 4.3 H (<1.2) Sodium 136 L (137-145) mmol/L Potassium 3.3 L (3.5-5.1) mmol/L BUN 44 H (9-20) mg/dL Calcium 7.8 L (8.4-10.2) mg/dL Assessment and Plan Assessment: #1 abdominal pain with computed tomography scan finding compatible with partial small bowel obstruction versus ileus. At this time patient will be kept on clear liquid diet, surgical consultation is requested for evaluation, continue IV fluid. Patient is improving gradually he is passing gas he had a bowel movement yesterday he was evaluated by surgery and diet will be advanced. Per surgical services ileus seems to be resolving. Per surgical services recommending colon cancer screening or at least outpatient Colorguard testing #2 underlying history of hypertension, well controlled at this time #3 underlying history of hyperlipidemia #4 underlying chronic atrial fibrillation maintained on Coumadin will continue with Coumadin at this time if any surgical intervention is recommended will reverse anticoagulation at that point. INR 4.3. We'll give one-time dose of vitamin K 2.5 mg daily and recheck in a.m. #5 underlying history of obstructive sleep apnea #6 underlying history of diabetes mellitus #7 underlying history of gout #8 underlying history of chronic obstructive pulmonary #9 chronic congestive heart failure type unknown patient maintain Aldactone and torsemide. #10 evidence of acute renal failure . Improving. Creatinine 1.10 and bun 44 #11 hypokalemia. Potassium replacement protocol ordered DVT prophylaxis Coumadin. GI prophylaxis Protonix I performed an examination of the patient and discussed their management with the Nurse Practitioner. I have reviewed the Nurse Practitioner's notes and agree with the documented findings and plan of care
[2018-06-25] MEDS: ATORVASTATIN 10 MG TAB PO SCH (20:57)
[2018-06-25 21:45] LABS: Glucose,Whole Blood 74 mg/dL (75-99)
[2018-06-26] MEDS: BUDESONIDE 0.5 MG/2 ML NEBU INHALATION SCH (06:42)
[2018-06-26 07:46] LABS: Glucose,Whole Blood 77 mg/dL (75-99)
[2018-06-26] MEDS: TORSEMIDE 20 MG TAB PO SCH (08:32)
[2018-06-26] MEDS: ALLOPURINOL 300 MG TAB PO SCH (08:32)
[2018-06-26] MEDS: PANTOPRAZOLE 40 MG TABLET PO SCH (08:32)
[2018-06-26] MEDS: MECLIZINE 25 MG TAB PO SCH (08:32)
[2018-06-26] MEDS: SPIRONOLACTONE 25 MG TAB PO SCH (08:32)
[2018-06-26] MEDS: LOSARTAN 25 MG TAB PO SCH (08:32)
[2018-06-26] MEDS: CARVEDILOL 3.125 MG TAB PO SCH (08:32)
[2018-06-26] MEDS: DOFETILIDE 500 MCG CAP PO SCH (08:33)
[2018-06-26] MEDS: metFORMIN 500 MG TAB PO SCH (08:33)
[2018-06-26] MEDS: glipiZIDE 10 MG TAB PO SCH (08:33)
[2018-06-26 10:15] LABS: Basophils % (A) 0 %; Eosinophils # (A) 0.1 k/uL (0-0.7); Eosinophils % (A) 0 %; HCT 43.4 % (39.0-53.0); HGB 13.5 gm/dL (13.0-17.5); Hypochromasia Slight; Lymphocytes # (A) 1.6 k/uL (1.0-4.8); Lymphocytes % (A) 12 %; MCH 28.8 pg (25.0-35.0); MCHC 31.1 g/dL (31.0-37.0); MCV 92.8 fL (80.0-100.0); Mean Platelet Volume 6.7; Monocytes # (A) 0.7 k/uL (0-1.0); Monocytes % (A) 5 %; Neutrophils # (A) 11.1 k/uL (1.3-7.7); Neutrophils % (A) 81 %; Platelet Count 267 k/uL (150-450); RBC 4.67 m/uL (4.30-5.90); RDW 15.9 % (11.5-15.5); WBC 13.8 k/uL (3.8-10.6)
[2018-06-26 10:22] LABS: INR 3.4 (<1.2); Prothrombin Time 30.8 sec (9.0-12.0)
[2018-06-26 10:27] LABS: ALT 28 U/L (21-72); AST 24 U/L (17-59); Albumin 3.4 g/dL (3.5-5.0); Alkaline Phosphatase 63 U/L (38-126); Anion Gap 13 mmol/L; Blood Urea Nitrogen 28 mg/dL (9-20); Carbon Dioxide 23 mmol/L (22-30); Chloride 105 mmol/L (98-107); Glucose 107 mg/dL (74-99); Potassium 3.4 mmol/L (3.5-5.1); Sodium 141 mmol/L (137-145); Total Bilirubin 0.4 mg/dL (0.2-1.3); Total Protein 6.6 g/dL (6.3-8.2)
--- NOTE | 2018-06-26 11:45 | CDI ---
Last Revision, June 2017 Documentation Clarification Form Date: 06/26/2018 11:26:07 AM From: Pastora Hood RN, CCDS Admit Date: 06/22/2018 2:11:00 AM Patient Name: Tristian Galloway Visit Number: [id number] ATTENTION: The Clinical Documentation Specialists (CDI) and [facility] Coding Staff appreciate your assistance in clarifying documentation. Please respond to the clarification below the line at the bottom and electronically sign. The CDI & [facility] Coding staff will review the response and follow-up if needed. Please note: Queries are made part of the Legal Health Record. If you have any questions, please contact the author of this message via ITS. Catrina Adams MD History/Risk Factors: Atrial Fib, COPD, DM, Hyperlipidemia, cardiomyopathy Clinical Indicators: 06/25 Attending Progress Note: " chronic congestive heart failure type unknown patient maintain Aldactone and torsemide." VS/Pulse OX: temp 97.5, HR 82, RR 20, B/P 92/58, Spo2 95% NC BNP: not done 06/22 Echocardiogram Results: EF 55-60% Treatment: 2.5 L IVF Bolus 12.5 mg PO Q 48 hrs Demadex 40 mg PO QD In your professional opinion, can you please clarify the acuity and type of CHF if known? Chronic Diastolic Heart Failure: Unable to Determine Other, please specify Please continue to document in your progress notes and discharge summary in order to capture severity of illness and risk of mortality. Include clinical findings that support your diagnosis. Unable to determine MTDD
[2018-06-26 11:55] LABS: Glucose,Whole Blood 113 mg/dL (75-99)
[2018-06-26] MEDS: POTASSIUM CHLORIDE ER 20 MEQ TAB.ER PO SCH ×2 (12:13→14:11)
[2018-06-26] MEDS: MULTIVITAMINS, THERA 1 EACH TAB PO SCH (12:13)
--- NOTE | 2018-06-26 13:10 | P.DS ---
Providers Date of admission: 06/22/18 02:11 Expected date of discharge: 06/26/18 Attending physician: Catrina Lew Consults: 06/22/18 02:12 Consult Physician Routine Consulting Provider: Beto Rangel Consult Reason/Comments: abdominal pain. Ileus Do you want consulting provider notified?: Yes Primary care physician: Jocelyn Sampson [facility] Course: Discharge diagnosis #1 abdominal pain with computed tomography scan finding compatible with partial small bowel obstruction versus ileus. At this time patient will be kept on clear liquid diet, surgical consultation is requested for evaluation, continue IV fluid. Patient is improving gradually he is passing gas he had a bowel movement yesterday he was evaluated by surgery and diet will be advanced. Per surgical services ileus seems to be resolving. Per surgical services recommending colon cancer screening or at least outpatient Colorguard testing #2 underlying history of hypertension, well controlled at this time #3 underlying history of hyperlipidemia #4 underlying chronic atrial fibrillation maintained on Coumadin will continue with Coumadin at this time if any surgical intervention is recommended will reverse anticoagulation at that point. INR 4.3. We'll give one-time dose of vitamin K 2.5 mg daily and recheck in a.m.. INR today 3.4. Patient will be DC' d home with Coumadin dose change of 5 mg every day. Patient advised to follow- up closely with PCP for close monitoring and adjustment of Coumadin dose repeat INR has been ordered for 2 days #5 underlying history of obstructive sleep apnea #6 underlying history of diabetes mellitus #7 underlying history of gout #8 underlying history of chronic obstructive pulmonary #9 chronic congestive heart failure type unknown patient maintain Aldactone and torsemide. #10 evidence of acute renal failure . Improving. Creatinine 1.10 and bun 44. Resolved #11 hypokalemia. Potassium replacement protocol ordered Hospital course Tristian Galloway is a 73-year-old male who presented to [facility] emergency room with a 5 day history of abdominal pain and vomiting patient states that his symptoms were worsening and he decided to come to emergency room for evaluation. In the emergency room patient had a computed tomography scan of the abdomen and pelvis that revealed evidence of fluid-filled stomach, dilated proximal small bowel consistent with partial mechanical obstruction or ileus, patient was admitted to medical floor surgical consultation was requested for further evaluation. Patient stated that in 2013 he had a colonoscopy that revealed a large polyp that was not amenable to removal by colonoscopy, he had an open surgery and 4 inches of his colon were removed. His medical history also is significant for atrial fibrillation diagnosed in 2011, patient is maintained on Coumadin. He also has a known history of hypertension, hyperlipidemia, diabetes mellitus, obstructive sleep apnea and gout. On 06/23/2018 Patient was seen and examined on the medical floor he is alert and oriented 3 he is complaining of mild abdominal pain no nausea or vomiting at this time. He is passing gas but no bowel movements today. He denies any fever or chills no headache or dizziness no chest pain no shortness of breath no cough no nausea or vomiting he has mild abdominal pain, and no urinary symptoms. On 06/24/2018 patient is alert and oriented 3. Patient did state he had bowel movement last night. Patient denies any nausea vomiting or diarrhea. Patient denies any chest pain or shortness breath. Patient denies any urinary burning or frequency. On 06/25/2018 patient is alert and oriented 3. Patient is currently sitting up in chair. Patient did have multiple bowel movements last night. INR remains elevated at 4.3. Patient has not received Coumadin. Will give one- time dose of 2.5 of vitamin K and recheck in a.m. At this time patient denies chest pain or shortness of breath. Patient denies nausea vomiting or diarrhea. Patient denies any urinary burning and frequency. Patient has been tolerating a low fiber diet On 06/26/2018 patient is alert and oriented 3. Patient is currently sitting up in chair in no distress. Patient states he feels ready to go home. Patient did have normal bowel movement yesterday. Patient has been tolerating diet. Patient has been cleared for discharge from surgical services. Patient's INR today 3.4. Coumadin dose will be changed to 5 mg daily at this time. Patient advised to follow-up closely with PCP for close monitoring of PT/INR and Coumadin adjustment. PT/INR not has been ordered for 2 days. Patient's white blood cell also elevated at 13.8. Patient denies any cough or upper respiratory symptoms. Patient denies nausea vomiting or diarrhea. Patient denies any urinary burning or frequency. Repeat CBC has been ordered for 2 days. Patient advised to follow-up closely with PCP in regards to elevated white blood. I performed an examination of the patient and discussed their management with the Nurse Practitioner. I have reviewed the Nurse Practitioner's notes and agree with the documented findings and plan of care Patient Condition at Discharge: Stable Plan - Discharge Summary New Discharge Prescriptions: New Carvedilol [Coreg] 3.125 mg PO BID-W/MEALS tab Warfarin Sodium [Coumadin] 5 mg PO DAILY 30 Days #30 tablet Continue Dofetilide [Tikosyn] 500 mcg PO BID metFORMIN HCL [Glucophage] 1,000 mg PO DAILY glipiZIDE [Glucotrol] 10 mg PO AC-BID Spironolactone [Aldactone] 12.5 mg PO Q48H Budesonide [Pulmicort] 0.5 mg INHALATION RT-BID Losartan [Cozaar] 25 mg PO DAILY Allopurinol [Zyloprim] 300 mg PO DAILY Lovastatin [Mevacor] 10 mg PO HS Acetaminophen Tab [Tylenol] 325 mg PO QID PRN MDD 6 TABLETS PRN Reason: Fever And/ Or Pain Ergocalciferol [Vitamin D2 (DRISDOL)] 50,000 unit PO HODGES Multivitamins, Thera [Multivitamin (formulary)] 1 tab PO DAILY Meclizine [Antivert] 25 mg PO BID Torsemide [Demadex] 40 mg PO DAILY Albuterol Sulfate [Proair Hfa] 2 puff INHALATION RT-QID Aspirin EC [Ecotrin Low Dose] 81 mg PO DAILY Magnesium Chloride [Slow-Mag] 64 mg PO DAILY metFORMIN HCL [Glucophage] 500 mg PO W/SUPPER Metoprolol Succinate [Toprol XL] 25 mg PO DAILY Discontinued Warfarin [Coumadin] 7.5 mg PO TUFRSA Warfarin [Coumadin] 5 mg PO SUMOWETH Discharge Medication List Budesonide [Pulmicort] 0.5 mg INHALATION RT-BID 11/20/13 [History] Dofetilide [Tikosyn] 500 mcg PO BID 11/20/13 [History] Spironolactone [Aldactone] 12.5 mg PO Q48H 11/20/13 [History] glipiZIDE [Glucotrol] 10 mg PO AC-BID 11/20/13 [History] metFORMIN HCL [Glucophage] 1,000 mg PO DAILY 11/20/13 [History] Allopurinol [Zyloprim] 300 mg PO DAILY 11/21/14 [History] Losartan [Cozaar] 25 mg PO DAILY 11/21/14 [History] Lovastatin [Mevacor] 10 mg PO HS 11/21/14 [History] Acetaminophen Tab [Tylenol] 325 mg PO QID PRN MDD 6 TABLETS 07/12/16 [History] Ergocalciferol [Vitamin D2 (DRISDOL)] 50,000 unit PO HODGES 07/12/16 [History] Meclizine [Antivert] 25 mg PO BID 10/03/17 [History] Multivitamins, Thera [Multivitamin (formulary)] 1 tab PO DAILY 10/03/17 [History ] Torsemide [Demadex] 40 mg PO DAILY 10/03/17 [History] Albuterol Sulfate [Proair Hfa] 2 puff INHALATION RT-QID 06/23/18 [History] Aspirin EC [Ecotrin Low Dose] 81 mg PO DAILY 06/23/18 [History] Magnesium Chloride [Slow-Mag] 64 mg PO DAILY 06/23/18 [History] Metoprolol Succinate [Toprol XL] 25 mg PO DAILY 06/23/18 [History] metFORMIN HCL [Glucophage] 500 mg PO W/SUPPER 06/23/18 [History] Carvedilol [Coreg] 3.125 mg PO BID-W/MEALS tab 06/26/18 [Rx] Warfarin Sodium [Coumadin] 5 mg PO DAILY 30 Days #30 tablet 06/26/18 [Rx] Follow up Appointment(s)/Referral(s): Jocelyn Sampson MD [Primary Care Provider] - 1 Week Raisa Olivera DO [Doctor of Osteopathic Medicine] - 4 Weeks (Can call the office to schedule a colonoscopy in July 2018) [facility], [NON-STAFF] - Activity/Diet/Wound Care/Special Instructions: outpatient colonscopy Diet low fiber activity as tolerated 06/26/2018 INR 3.4. coumadin changed to 5mg daily. Patient verbalized understanding. Patient advised to follow up with primary care provider to manage PT/INR and Coumadin dose Coreg dose no change resume home Coreg dose Discharge Disposition: HOME WITH HOME HEALTH SERVICES
[2018-06-26 14:12] VITALS: BP 156/70; PULSE 91; RESP 20; TEMP 97.8
== END 2018-06-26 16:22 | disposition home health service (06) | DRG 389 ==
LOC: EC → 4MS4W 02:11
PROVIDERS: ADMIT Internal Medicine; ATTEND Internal Medicine
DX: K56.7 Ileus, unspecified (principal); N17.9 Acute kidney failure, unspecified; I42.9 Cardiomyopathy, unspecified; Z68.42 Body mass index [BMI] 45.0-49.9, adult; E66.01 Morbid (severe) obesity due to excess calories; I11.0 Hypertensive heart disease with heart failure; I48.2 Chronic atrial fibrillation; I50.9 Heart failure, unspecified; J44.9 Chronic obstructive pulmonary disease, unspecified; E11.9 Type 2 diabetes mellitus without complications; E87.6 Hypokalemia; G47.33 Obstructive sleep apnea (adult) (pediatric); E78.5 Hyperlipidemia, unspecified; M19.90 Unspecified osteoarthritis, unspecified site; M10.9 Gout, unspecified; Z79.01 Long term (current) use of anticoagulants; Z79.84 Long term (current) use of oral hypoglycemic drugs; Z79.82 Long term (current) use of aspirin; Z79.51 Long term (current) use of inhaled steroids; Z79.899 Other long term (current) drug therapy; Z86.010 Personal history of colon polyps; Z86.59 Personal history of other mental and behavioral disorders; Z90.49 Acquired absence of other specified parts of digestive tract; Z96.1 Presence of intraocular lens; Z98.41 Cataract extraction status, right eye; Z98.42 Cataract extraction status, left eye; Z82.49 Family history of ischemic heart disease and other diseases of the circulatory system
CPT/HCPCS: 36415; 74019; 74176; 80048; 80053; 81003; 82150; 83605; 83690; 84132; 84484; 85025; 85610; 85730; 87324; 93306; 94640; 94760

== ENCOUNTER 2021-05-24 20:21 | Inpatient (IN) | payer MEDICARE ==
[2021-05-24] MEDS ORDERED: IPRATROPIUM 0.5 MG/2.5 ML NEBU INHALATION STA (20:45)
[2021-05-24] MEDS ORDERED: ALBUTEROL NEBULIZED 2.5 MG/3 ML INHALATION STA (20:45)
--- NOTE | 2021-05-24 21:26 | ED ---
General Adult HPI - General Chief complaint: Shortness of Breath Stated complaint: NEETA Time Seen by Provider: 05/24/21 20:45 Source: patient, EMS, RN notes reviewed, old records reviewed Mode of arrival: EMS - History of Present Illness Initial comments: 75-year-old male who had presented for increased cough and dyspnea over the past one week. Patient has history of CHF and COPD. He has had some mild intermittent chest pain. No fever. He states he's had a greater than 20 pound weight gain. He denies diaphoresis. Denies abdominal pain or vomiting. Cough is mostly nonproductive. - Related Data Home Medications Medication Instructions Recorded Confirmed Budesonide [Pulmicort] 0.5 mg INHALATION RT-BID 11/20/13 05/24/21 Dofetilide [Tikosyn] 500 mcg PO BID 11/20/13 05/24/21 Spironolactone [Aldactone] 25 mg PO DAILY 11/20/13 05/24/21 glipiZIDE [Glucotrol] 10 mg PO AC-BID 11/20/13 05/24/21 allopurinoL [Zyloprim] 300 mg PO DAILY 11/21/14 05/24/21 Acetaminophen Tab [Tylenol] 325 mg PO QID PRN MDD 6 TABLETS 07/12/16 05/24/21 Ergocalciferol [Vitamin D2 50,000 unit PO HODGES 07/12/16 05/24/21 (DRISDOL)] Multivitamins, Thera [Multivitamin 1 tab PO DAILY 10/03/17 05/24/21 (formulary)] Torsemide [Demadex] 40 mg PO DAILY 10/03/17 05/24/21 Albuterol Sulfate [Proair Hfa] 2 puff INHALATION RT-QID PRN 06/23/18 05/24/21 Levothyroxine Sodium [Synthroid] 50 mcg PO DAILY 05/24/21 05/24/21 Lovastatin [Altoprev] 20 mg PO DAILY 05/24/21 05/24/21 Magnesium 500 mg PO DAILY 05/24/21 05/24/21 Metoprolol Tartrate [Lopressor] 25 mg PO BID 05/24/21 05/24/21 metFORMIN HCL [Glucophage] 1,000 mg PO BID 05/24/21 05/24/21 Previous Rx's Medication Instructions Recorded Warfarin Sodium [Coumadin] 5 mg PO DAILY 30 Days #30 tablet 06/26/18 Allergies Allergy/AdvReac Type Severity Reaction Status Date / Time No Known Allergies Allergy Verified 05/24/21 22:01 Review of Systems ROS Statement: Those systems with pertinent positive or pertinent negative responses have been documented in the HPI. ROS Other: All systems not noted in ROS Statement are negative. Past Medical History Past Medical History: Atrial Fibrillation, COPD, Diabetes Mellitus, Hyperlipidemia, Sleep Apnea/CPAP/BIPAP Additional Past Medical History / Comment(s): cardiomyopathy. arthritis. gout History of Any Multi-Drug Resistant Organisms: MRSA, VRE Date of last positivie culture/infection: 10/30/13-MRSA and VRE MDRO Source:: Site Unknown Past Surgical History: Bowel Resection, Pacemaker Additional Past Surgical History / Comment(s): Sinus surgery. VIANEY, bilateral cataract removal with lens implants Past Anesthesia/Blood Transfusion Reactions: No Reported Reaction Type of Cardiac Device: Permanent Pacemaker Device Placement Date:: 10/17/2012 Past Psychological History: Depression Past Alcohol Use History: Rare Past Drug Use History: None Reported - Past Family History Father Additional Family Medical History / Comment(s): "hardening of the arteries" Mother Additional Family Medical History / Comment(s): "water in the lungs" at 95 General Exam General appearance: alert, in no apparent distress Head exam: Present: atraumatic, normocephalic Eye exam: Present: normal appearance, PERRL Neck exam: Present: normal inspection. Absent: tenderness, meningismus Respiratory exam: Present: respiratory distress, wheezes, rales Cardiovascular Exam: Present: regular rate, normal rhythm GI/Abdominal exam: Present: soft. Absent: distended, tenderness Extremities exam: Present: pedal edema Neurological exam: Present: alert, oriented X3, CN II-XII intact. Absent: motor sensory deficit Psychiatric exam: Present: normal affect, normal mood Skin exam: Present: warm, dry, intact. Absent: cyanosis, diaphoretic Course Vital Signs 05/24/21 05/24/21 05/24/21 20:32 20:59 21:00 Temperature 98.0 F Pulse Rate 75 73 87 Respiratory 20 20 Rate Blood Pressure 135/75 135/80 O2 Sat by Pulse 97 95 Oximetry 05/24/21 05/24/21 05/24/21 21:13 21:24 21:41 Temperature Pulse Rate 76 77 Respiratory 22 Rate Blood Pressure O2 Sat by Pulse Oximetry 05/24/21 22:00 Temperature Pulse Rate 87 Respiratory 20 Rate Blood Pressure 135/83 O2 Sat by Pulse 93 L Oximetry EKG Findings - EKG Comments: EKG Findings:: EKG: Wide complex QRS, right bundle branch block, left posterior fascicular block, rate of 73, QRS duration 150, QTC 517, similar to prior in 2018. Paced rhythm Medical Decision Making - Medical Decision Making 75-year-old male presented with increased cough and dyspnea, weight gain. Patient has x-ray showing effusion, no large focal pneumonia. His laboratory testing reveals normal CBC, normal CMP, negative troponin. BNP results are pending. Coronavirus test is pending. Patient will be admitted for treatment of both COPD and CHF. - Lab Data Result diagrams: 05/24/21 21:21 05/24/21 21:21 Lab Results 05/24/21 05/24/21 05/24/21 Range/Units 21:21 21:21 21:21 WBC 9.4 (3.8-10.6) k/uL RBC 4.76 (4.30-5.90) m/uL Hgb 15.1 (13.0-17.5) gm/dL Hct 47.2 (39.0-53.0) % MCV 99.2 (80.0-100.0) fL MCH 31.6 (25.0-35.0) pg MCHC 31.9 (31.0-37.0) g/dL RDW 17.3 H (11.5-15.5) % Plt Count 159 (150-450) k/uL MPV 8.1 Neutrophils % 56 % Lymphocytes % 30 % Monocytes % 9 % Eosinophils % 2 % Basophils % 1 % Neutrophils # 5.3 (1.3-7.7) k/uL Lymphocytes # 2.8 (1.0-4.8) k/uL Monocytes # 0.8 (0-1.0) k/uL Eosinophils # 0.2 (0-0.7) k/uL Basophils # 0.1 (0-0.2) k/uL Poikilocytosis Slight Anisocytosis Slight Macrocytosis Slight PT 31.1 H (9.0-12.0) sec INR 3.2 H (<1.2) APTT 31.6 H (22.0-30.0) sec Sodium 137 (137-145) mmol/L Potassium 4.0 (3.5-5.1) mmol/L Chloride 101 (98-107) mmol/L Carbon Dioxide 24 (22-30) mmol/L Anion Gap 12 mmol/L BUN 22 H (9-20) mg/dL Creatinine 1.21 (0.66-1.25) mg/dL Est GFR (CKD-EPI)AfAm 68 (>60 ml/min/1.73 sqM) Est GFR (CKD-EPI)NonAf 59 (>60 ml/min/1.73 sqM) Glucose 114 H (74-99) mg/dL Plasma Lactic Acid Jarvis (0.7-2.0) mmol/L Calcium 9.0 (8.4-10.2) mg/dL Magnesium 1.9 (1.6-2.3) mg/dL Total Bilirubin 1.3 (0.2-1.3) mg/dL AST 31 (17-59) U/L ALT 16 (4-49) U/L Alkaline Phosphatase 117 (38-126) U/L Troponin I (0.000-0.034) ng/mL Total Protein 7.7 (6.3-8.2) g/dL Albumin 3.9 (3.5-5.0) g/dL 05/24/21 05/24/21 Range/Units 21:21 21:21 WBC (3.8-10.6) k/uL RBC (4.30-5.90) m/uL Hgb (13.0-17.5) gm/dL Hct (39.0-53.0) % MCV (80.0-100.0) fL MCH (25.0-35.0) pg MCHC (31.0-37.0) g/dL RDW (11.5-15.5) % Plt Count (150-450) k/uL MPV Neutrophils % % Lymphocytes % % Monocytes % % Eosinophils % % Basophils % % Neutrophils # (1.3-7.7) k/uL Lymphocytes # (1.0-4.8) k/uL Monocytes # (0-1.0) k/uL Eosinophils # (0-0.7) k/uL Basophils # (0-0.2) k/uL Poikilocytosis Anisocytosis Macrocytosis PT (9.0-12.0) sec INR (<1.2) APTT (22.0-30.0) sec Sodium (137-145) mmol/L Potassium (3.5-5.1) mmol/L Chloride (98-107) mmol/L Carbon Dioxide (22-30) mmol/L Anion Gap mmol/L BUN (9-20) mg/dL Creatinine (0.66-1.25) mg/dL Est GFR (CKD-EPI)AfAm (>60 ml/min/1.73 sqM) Est GFR (CKD-EPI)NonAf (>60 ml/min/1.73 sqM) Glucose (74-99) mg/dL Plasma Lactic Acid Jarvis 2.9 H* (0.7-2.0) mmol/L Calcium (8.4-10.2) mg/dL Magnesium (1.6-2.3) mg/dL Total Bilirubin (0.2-1.3) mg/dL AST (17-59) U/L ALT (4-49) U/L Alkaline Phosphatase (38-126) U/L Troponin I <0.012 (0.000-0.034) ng/mL Total Protein (6.3-8.2) g/dL Albumin (3.5-5.0) g/dL Disposition Clinical Impression: COPD (chronic obstructive pulmonary disease), Congestive heart failure Disposition: ADMITTED IP TO THIS [facility] Condition: Stable Is patient prescribed a controlled substance at d/c from ED?: No Referrals: Jocelyn Sampson MD [Primary Care Provider] - 1-2 days Decision to Admit Reason: Admit from EC Decision Date: 05/24/21 Decision Time: 22:26
[2021-05-24 21:36] LABS: Anisocytosis Slight; Basophils # (A) 0.1 k/uL (0-0.2); Basophils % (A) 1 %; Eosinophils # (A) 0.2 k/uL (0-0.7); Eosinophils % (A) 2 %; HCT 47.2 % (39.0-53.0); HGB 15.1 gm/dL (13.0-17.5); Lymphocytes # (A) 2.8 k/uL (1.0-4.8); Lymphocytes % (A) 30 %; MCH 31.6 pg (25.0-35.0); MCHC 31.9 g/dL (31.0-37.0); MCV 99.2 fL (80.0-100.0); Macrocytosis Slight; Mean Platelet Volume 8.1; Monocytes # (A) 0.8 k/uL (0-1.0); Monocytes % (A) 9 %; Neutrophils # (A) 5.3 k/uL (1.3-7.7); Neutrophils % (A) 56 %; Platelet Count 159 k/uL (150-450); Poikilocytosis Slight; RBC 4.76 m/uL (4.30-5.90); RDW 17.3 % (11.5-15.5); WBC 9.4 k/uL (3.8-10.6)
[2021-05-24 21:45] LABS: INR 3.2 (<1.2); Partial Thromboplastin Time 31.6 sec (22.0-30.0); Prothrombin Time 31.1 sec (9.0-12.0)
[2021-05-24 21:50] LABS: Albumin 3.9 g/dL (3.5-5.0); Magnesium 1.9 mg/dL (1.6-2.3); Total Bilirubin 1.3 mg/dL (0.2-1.3); Total Protein 7.7 g/dL (6.3-8.2)
--- NOTE | 2021-05-24 21:59 | XR ---
EXAMINATION TYPE: XR chest 2V DATE OF EXAM: 05/24/2021 COMPARISON: 10/03/2017 INDICATION: Difficulty breathing TECHNIQUE: Frontal and lateral views of the chest are obtained. FINDINGS: The heart size is enlarged. The pulmonary vasculature is normal. No suspicious consolidations are evident. There may be a posterior pleural effusion identified on the lateral view.. IMPRESSION: 1. Cardiomegaly 2. Posterior pleural effusion
[2021-05-24] MEDS ORDERED: FUROSEMIDE 10 MG/ML 4 ML VIAL IV STA (22:09)
[2021-05-24] MEDS ORDERED: predniSONE 50 MG TAB PO STA (22:10)
[2021-05-25] MEDS: IPRATROPIUM-ALBUTEROL 3 ML NEB INHALATION PRN (03:08)
[2021-05-25] MEDS ORDERED: FUROSEMIDE 10 MG/ML 2 ML VIAL IV ONE (04:30)
[2021-05-25] MEDS ORDERED: methylPREDNISolone SOD SUCCI 125 MG/2 ML VIAL IV SCH ×2 (06:00)
[2021-05-25] MEDS: IPRATROPIUM-ALBUTEROL 3 ML NEB INHALATION SCH ×4 (07:10→20:27)
[2021-05-25 07:45] LABS: Glucose,Whole Blood 194 mg/dL (75-99)
[2021-05-25] MEDS: FUROSEMIDE 10 MG/ML 4 ML VIAL IV SCH ×2 (10:02→20:39)
--- NOTE | 2021-05-25 11:26 | P.CNPUL ---
History of Present Illness Consult date: 05/25/21 Requesting physician: Catrina Lew Reason for consult: dyspnea, hypoxemia, pulmonary hypertension, abnormal CXR/CT, other Chief complaint: Weakness, falling at home, shortness of breath, weight gain. History of present illness: Pulmonary/critical care consult dated 05/25/2021. This is a 75-year-old male that we saw in the emergency department, room 6. The patient came into the emergency room, with weight gain, lower extremity edema with cellulitis, falling at home, and shortness of breath. The patient does have a history of chronic hypoxemic respiratory failure and does use oxygen at 3 L/m, at home. He also has sleep apnea, and for that he uses CPAP at home. His primary care provider is Dr. Sampson. 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 The patient has a history of atrial fibrillation, a questionable history of COPD even though he wasn't a smoker, diabetes mellitus, hyperlipidemia, and sleep apnea syndrome. He also suffers some arthritis, gout, cardiomyopathy, and has a previous history of methicillin-resistant staph aureus infection, and also infection with vancomycin-resistant enterococci. He is status post pacemaker insertion. Anyway, the patient states that at home, he's been feeling very weak and is been falling. He's gained quite a bit of weight has significant lower extremity edema. White count 9.4, hemoglobin 15.1, hematocrit 47.2, and platelet count 159,000. PTT 31.1, INR 3.2, and PTT 31.6. Sodium 137, potassium 4, chlorides 101, CO2 24, anion gap 12, BUN 22, creatinine 1.21. Lactic acid was 2.9 and repeat was 3.5. Troponin was normal. N-terminal proBNP was 608. Testing for medina virus was negative. Chest x-ray showed evidence of cardiomegaly, and a posterior pleural effusion. Review of Systems REVIEW OF SYSTEMS: CONSTITUTIONAL: Weakness, with frequent falls. NEUROLOGIC: [ Negative.] HEENT: [ Negative.] CARDIAC: Weight gain, lower extremity edema. PULMONARY: Shortness of breath. GI: [Negative.] : [Negative.] RHEUMATOLOGIC: [ Negative.] IMMUNOLOGIC: [ Negative.] ENDOCRINE: [Negative. ] DERMATOLOGIC: Lower extremity cellulitis. Past Medical History Past Medical History: Atrial Fibrillation, COPD, Diabetes Mellitus, Hyperlipidemia, Sleep Apnea/CPAP/BIPAP Additional Past Medical History / Comment(s): cardiomyopathy. arthritis. gout History of Any Multi-Drug Resistant Organisms: MRSA, VRE Date of last positivie culture/infection: 10/30/13-MRSA and VRE MDRO Source:: Site Unknown Past Surgical History: Bowel Resection, Pacemaker Additional Past Surgical History / Comment(s): Sinus surgery. VIANEY, bilateral cataract removal with lens implants Past Anesthesia/Blood Transfusion Reactions: No Reported Reaction Type of Cardiac Device: Permanent Pacemaker Device Placement Date:: 10/17/2012 Past Psychological History: Depression Past Alcohol Use History: Rare Past Drug Use History: None Reported - Past Family History Father Additional Family Medical History / Comment(s): "hardening of the arteries" Mother Additional Family Medical History / Comment(s): "water in the lungs" at 95 Medications and Allergies Home Medications Medication Instructions Recorded Confirmed Type Budesonide [Pulmicort] 0.5 mg INHALATION RT-BID 11/20/13 05/24/21 History Dofetilide [Tikosyn] 500 mcg PO BID 11/20/13 05/24/21 History Spironolactone [Aldactone] 25 mg PO DAILY 11/20/13 05/24/21 History glipiZIDE [Glucotrol] 10 mg PO AC-BID 11/20/13 05/24/21 History allopurinoL [Zyloprim] 300 mg PO DAILY 11/21/14 05/24/21 History Acetaminophen Tab [Tylenol] 325 mg PO QID PRN MDD 6 TABLETS 07/12/16 05/24/21 History Ergocalciferol [Vitamin D2 50,000 unit PO HODGES 07/12/16 05/24/21 History (DRISDOL)] Multivitamins, Thera [Multivitamin 1 tab PO DAILY 10/03/17 05/24/21 History (formulary)] Torsemide [Demadex] 40 mg PO DAILY 10/03/17 05/24/21 History Albuterol Sulfate [Proair Hfa] 2 puff INHALATION RT-QID PRN 06/23/18 05/24/21 History Warfarin Sodium [Coumadin] 5 mg PO DAILY 30 Days #30 tablet 06/26/18 05/24/21 Rx Levothyroxine Sodium [Synthroid] 50 mcg PO DAILY 05/24/21 05/24/21 History Lovastatin [Altoprev] 20 mg PO DAILY 05/24/21 05/24/21 History Magnesium 500 mg PO DAILY 05/24/21 05/24/21 History Metoprolol Tartrate [Lopressor] 25 mg PO BID 05/24/21 05/24/21 History metFORMIN HCL [Glucophage] 1,000 mg PO BID 05/24/21 05/24/21 History Allergies Allergy/AdvReac Type Severity Reaction Status Date / Time No Known Allergies Allergy Verified 05/24/21 22:01 Physical Exam Osteopathic Statement: *. No significant issues noted on an osteopathic structural exam other than those noted in the History and Physical/Consult. Vitals: Vital Signs Temp Pulse Resp BP Pulse Ox 05/25/21 10:08 99 20 126/70 88 L 05/25/21 07:25 98.7 F 99 24 135/80 92 L 05/25/21 07:20 88 22 05/25/21 07:10 88 23 05/25/21 07:06 92 L 05/25/21 06:12 92 L 05/25/21 05:45 92 L 05/25/21 04:00 87 20 88 L 05/25/21 03:25 89 05/25/21 03:09 89 90 L 05/25/21 03:00 85 24 128/78 94 L 05/25/21 01:00 24 130/84 93 L 05/24/21 23:00 85 26 H 132/84 94 L 05/24/21 22:00 87 20 135/83 93 L 05/24/21 21:41 22 05/24/21 21:24 77 05/24/21 21:13 76 05/24/21 21:00 87 20 135/80 95 05/24/21 20:59 73 05/24/21 20:32 98.0 F 75 20 135/75 97 Intake and Output 05/24/21 05/25/21 05/25/21 22:59 06:59 14:59 Other: Weight 153.314 kg No acute distress, oriented 3. Mild tachypnea, currently on BiPAP at 12/6 and 50%. HEENT examination is grossly unremarkable. Neck supple. Full range of motion. No adenopathy thyromegaly or neck vein distention. Cardiovascular examination reveals regular rhythm rate. S1-S2 normal. No S3 or S4. No discernible murmur noted. Heart sounds are distant. Heart rate 88 bpm. Lungs reveal mild scattered rhonchi. No wheezes. Minimal basilar crackles not ed. Breath sounds equal bilaterally. Abdomen soft bowel sounds are heard. No masses or tenderness. Extremities are edematous, but diffuse bilateral lower extremity cellulitis, pitting, and chronic venous stasis changes. Skin is without rash or lesion. Neurologic examination is brief but nonfocal. Results - Laboratory Findings CBC and BMP: 05/24/21 21:21 05/24/21 21: PT/INR, D-dimer PT 31.1 sec (9.0-12.0) H 05/24/21: INR 3.2 (<1.2) H 05/24/21 21:21 Abnormal lab findings: Abnormal Labs 05/24/21 05/24/21 05/24/21 21:21 21:21 21:21 RDW 17.3 H PT 31.1 H INR 3.2 H APTT 31.6 H BUN 22 H Glucose 114 H POC Glucose (mg/dL) Plasma Lactic Acid Jarvis 05/24/21 05/25/21 05/25/21 21: 00:16 03:57 RDW PT INR APTT BUN Glucose POC Glucose (mg/dL) Plasma Lactic Acid Jarvis 2.9 H* 2.7 H* 2.4 H* 05/25/21 05/25/21 07:40 07:43 RDW PT INR APTT BUN Glucose POC Glucose (mg/dL) 194 H Plasma Lactic Acid Jarvis 3.5 H* - Diagnostic Findings Chest x-ray: image reviewed Assessment and Plan Assessment: Acute cor pulmonale, with right-sided heart failure, pulmonary hypertension, likely secondary to sleep apnea syndrome, and possible Pickwickian syndrome. Doubt significant chronic lung disease, as the patient is a lifelong nonsmoker. Morbid obesity. History of obstructive sleep apnea syndrome, on home CPAP. History of chronic atrial fibrillation. Status post pacemaker insertion. History of diabetes mellitus. History of hyperlipidemia. History of cardiomyopathy. History of arthritis. History of gout. 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 Plan: Plan dated 05/25/2021. Corticosteroids are discontinued. This patient is placed on antibiotics for his cellulitis. He can remain on breathing treatments for now. The patient cu rrently remains on BiPAP. He will need some additional diuretics. We will continue to follow make recommendations where appropriate. Echocardiogram from 2018 is reviewed. A repeat echocardiogram is ordered. Prognosis is guarded. Time with Patient: Greater than 30
[2021-05-25 11:54] LABS: Glucose,Whole Blood 220 mg/dL (75-99)
[2021-05-25] MEDS: INSULIN ASPART (NovoLOG) 100 UNIT/ML VIAL SQ SCH ×3 (12:18→20:40)
--- NOTE | 2021-05-25 12:34 | P.HPIM ---
History of Present Illness H&P Date: 05/25/21 Chief Complaint: Dyspnea This is a 75-year-old male patient of Dr. Sampson who presented with ongoing shortness of breath and weight gain. Patient reports he's had increasing shortness of breath over the past month with episodes of falling and significant weight gain. Patient is maintained on home O2 for chronic hypoxic respiratory failure but states that the shortness of breath has been increasing. Patient does have a past medical history of A. fib in which she is maintained on Coumadin, COPD, diabetes mellitus, hyperlipidemia and pacemaker. Chest x-ray completed in ER showing cardiomegaly posterior pleural effusion. BNP 608. Troponin was normal lactic acid elevated at 2.9 COVID-19 was negative. Patient has been started on updraft breathing treatments IV Lasix and sublingual insulin for cellulitis. Pulmonary, cardiology and infectious disease services have been consulted. This time patient is resting currently in bed on BiPAP machine. Patient does still complain of some shortness breath. Patient denies any chest pain. Patient denies nausea vomiting or diarrhea. Patient denies any urinary burning or frequency Review of Systems Please refer to HPI otherwise unremarkable Past Medical History Past Medical History: Atrial Fibrillation, Heart Failure, COPD, Diabetes Mellitus, Hyperlipidemia, Hypertension, Sleep Apnea/CPAP/BIPAP, Thyroid Disorder Additional Past Medical History / Comment(s): cardiomyopathy. arthritis. gout History of Any Multi-Drug Resistant Organisms: MRSA, VRE Date of last positivie culture/infection: 10/30/13-MRSA and VRE MDRO Source:: Site Unknown Past Surgical History: Bowel Resection, Pacemaker Additional Past Surgical History / Comment(s): Sinus surgery. VIANEY, bilateral cataract removal with lens implants,. 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 Past Drug Use History: None Reported - Past Family History Father History Unknown: Yes Additional Family Medical History / Comment(s): "hardening of the arteries" Mother History Unknown: Yes Additional Family Medical History / Comment(s): "water in the lungs" at 95 Medications and Allergies Home Medications Medication Instructions Recorded Confirmed Type Budesonide [Pulmicort] 0.5 mg INHALATION RT-BID 11/20/13 05/24/21 History Dofetilide [Tikosyn] 500 mcg PO BID 11/20/13 05/24/21 History Spironolactone [Aldactone] 25 mg PO DAILY 11/20/13 05/24/21 History glipiZIDE [Glucotrol] 10 mg PO AC-BID 11/20/13 05/24/21 History allopurinoL [Zyloprim] 300 mg PO DAILY 11/21/14 05/24/21 History Acetaminophen Tab [Tylenol] 325 mg PO QID PRN MDD 6 TABLETS 07/12/16 05/24/21 History Ergocalciferol [Vitamin D2 50,000 unit PO HODGES 07/12/16 05/24/21 History (DRISDOL)] Multivitamins, Thera [Multivitamin 1 tab PO DAILY 10/03/17 05/24/21 History (formulary)] Torsemide [Demadex] 40 mg PO DAILY 10/03/17 05/24/21 History Albuterol Sulfate [Proair Hfa] 2 puff INHALATION RT-QID PRN 06/23/18 05/24/21 History Warfarin Sodium [Coumadin] 5 mg PO DAILY 30 Days #30 tablet 06/26/18 05/24/21 Rx Levothyroxine Sodium [Synthroid] 50 mcg PO DAILY 05/24/21 05/24/21 History Lovastatin [Altoprev] 20 mg PO DAILY 05/24/21 05/24/21 History Magnesium 500 mg PO DAILY 05/24/21 05/24/21 History Metoprolol Tartrate [Lopressor] 25 mg PO BID 05/24/21 05/24/21 History metFORMIN HCL [Glucophage] 1,000 mg PO BID 05/24/21 05/24/21 History Allergies Allergy/AdvReac Type Severity Reaction Status Date / Time No Known Allergies Allergy Verified 05/24/21 22:01 Physical Exam Vitals: Vital Signs Temp Pulse Resp BP Pulse Ox 05/25/21 11:32 99 20 05/25/21 11:22 99 20 05/25/21 10:08 99 20 126/70 88 L 05/25/21 07:25 98.7 F 99 24 135/80 92 L 05/25/21 07:20 88 22 05/25/21 07:10 88 23 05/25/21 07:06 92 L 05/25/21 06:12 92 L 05/25/21 05:45 92 L 05/25/21 04:00 87 20 88 L 05/25/21 03:25 89 05/25/21 03:09 89 90 L 05/25/21 03:00 85 24 128/78 94 L 05/25/21 01:00 24 130/84 93 L 05/24/21 23:00 85 26 H 132/84 94 L 05/24/21 22:00 87 20 135/83 93 L 05/24/21 21:41 22 05/24/21 21:24 77 05/24/21 21:13 76 05/24/21 21:00 87 20 135/80 95 05/24/21 20:59 73 05/24/21 20:32 98.0 F 75 20 135/75 97 Intake and Output 05/24/21 05/25/21 05/25/21 22:59 06:59 14:59 Other: Weight 153.314 kg 153.314 kg Head normocephalic Neck supple Lungs clear to auscultation bilaterally no wheezing or crackles Heart regular rate and rhythm S1-S2, no rub or gallop Abdomen is soft nontender nondistended positive bowel sounds no hep atosplenomegaly Extremities +3 lower extremity edema with erythema Neuro alert and orientated to 3 Results CBC & Chem 7: 05/24/21 21:21 05/24/21 21:21 Labs: Abnormal Lab Results - Last 24 Hours (Table) 05/24/21 05/24/21 05/24/21 Range/Units 21:21 21:21 21:21 RDW 17.3 H (11.5-15.5) % PT 31.1 H (9.0-12.0) sec INR 3.2 H (<1.2) APTT 31.6 H (22.0-30.0) sec BUN 22 H (9-20) mg/dL Glucose 114 H (74-99) mg/dL POC Glucose (mg/dL) (75-99) mg/dL Plasma Lactic Acid Jarvis (0.7-2.0) mmol/L Procalcitonin (0.02-0.09) ng/mL 05/24/21 05/24/21 05/25/21 Range/Units 21:21 21:21 00:16 RDW (11.5-15.5) % PT (9.0-12.0) sec INR (<1.2) APTT (22.0-30.0) sec BUN (9-20) mg/dL Glucose (74-99) mg/dL POC Glucose (mg/dL) (75-99) mg/dL Plasma Lactic Acid Jarvis 2.9 H* 2.7 H* (0.7-2.0) mmol/L Procalcitonin 0.17 H (0.02-0.09) ng/mL 05/25/21 05/25/21 05/25/21 Range/Units 03:57 07:40 07:43 RDW (11.5-15.5) % PT (9.0-12.0) sec INR (<1.2) APTT (22.0-30.0) sec BUN (9-20) mg/dL Glucose (74-99) mg/dL POC Glucose (mg/dL) 194 H (75-99) mg/dL Plasma Lactic Acid Jarvis 2.4 H* 3.5 H* (0.7-2.0) mmol/L Procalcitonin (0.02-0.09) ng/mL 05/25/21 Range/Units 11:53 RDW (11.5-15.5) % PT (9.0-12.0) sec INR (<1.2) APTT (22.0-30.0) sec BUN (9-20) mg/dL Glucose (74-99) mg/dL POC Glucose (mg/dL) 220 H (75-99) mg/dL Plasma Lactic Acid Jarvis (0.7-2.0) mmol/L Procalcitonin (0.02-0.09) ng/mL Thrombosis Risk Factor Assmnt - Choose All That Apply Any of the Below Risk Factors Present?: Yes Each Factor Represents 1 point: Abnormal pulmonary function (COPD), Obesity (BMI >25), Swollen legs (current) Other Risk Factors: Yes Each Risk Factor Represents 2 Points: Age 61-74 years, Patient confined to bed Thrombosis Risk Factor Assessment Total Risk Factor Score: 7 Thrombosis Risk Factor Assessment Level: High Risk Assessment and Plan Assessment: 1. Dyspnea secondary to CHF and COPD exacerbation 2. History of obstructive sleep apnea 3. Chronic respiratory failure maintained on home O2 4. Bilateral lower extremity cellulitis and edema. Will order venous Doppler to rule out DVT. Patient started on IV antibiotic infectious disease service is consulted 5. Elevated lactic acid. Patient started on antibiotic for lower infection Sunday cellulitis. Infectious the service consulted UA and blood culture ordered 6. Status post pacemaker insertion 7. Chronic atrial fibrillation maintained on Coumadin 8. History of diabetes mellitus type 2 thank scale insulin coverage added hemoglobin A1c 9. History of cardiomyopathy 10. History of gout 11. Hypothyroidism DVT prophylaxis Coumadin. GI prophylaxis Protonix Pulmonary, cardiology and infectious disease service is consulted 2-D echo ordered IV antibiotic for cellulitis Blood culture and UA ordered Venous Doppler ordered Repeat labs ordered Time with Patient: Greater than 30 (Greater than 60% of the total time spent in counseling and coordination of care)
[2021-05-25 12:56] LABS: INR 3.3 (<1.2); Prothrombin Time 31.5 sec (9.0-12.0)
--- NOTE | 2021-05-25 13:35 | US ---
EXAMINATION TYPE: US venous doppler duplex LE DATE OF EXAM: 05/25/2021 1:10 PM COMPARISON: NONE CLINICAL HISTORY: lower exremity swelling and redness. SIDE PERFORMED: Bilateral TECHNIQUE: The lower extremity deep venous system is examined utilizing real time linear array sonog nora with graded compression, doppler sonography and color-flow sonography. VESSELS IMAGED: Common Femoral Vein Deep Femoral Vein Greater Saphenous Vein * Femoral Vein Popliteal Vein Small Saphenous Vein * Proximal Calf Veins (* superficial vessels) Very difficult exam due to patient body habitus. Right Leg: Negative for DVT Left Leg: Negative for DVT IMPRESSION: No evident deep venous thrombosis within the lower extremities from the level of the knee centrally within the limitations of the exam, follow-up as indicated
--- NOTE | 2021-05-25 13:39 | P.CRDCN ---
History of Present Illness History of present illness: HISTORY OF PRESENTING ILLNESS This is a pleasant 75-year-old male past medical history significant for chronic persistent atrial fibrillation, sick sinus syndrome status post dual chamber per manent pacemaker 2012, hypertension, obesity, type 2 diabetes, pulmonary hypertension, left ventricular hypertrophy, venous insufficiency, lymphedema, former tobacco use 20+ years ago. He follows in the office with Dr. Witt. We have been asked to see in consultation for congestive heart failure. Patient presents emergency department with complaints of shortness of breath, 29lb weight gain over 1 month and worsening lower extremity edema. He states bending over, lying flat, and getting out of bed are now more difficult for him due to worsening shortness of breath. He endorses compliance with medications, diet and his CPAP every night. He denies history of [place] or stroke. He denies current t obacco use or alcohol use. DIAGNOSTICS EKG reveals sinus mechanism, Right bundle branch block Chest xray Cardiomegaly Laboratory reviewed, WBC 9.4, hemoglobin 15, platelets 159, INR 3.3, sodium 137, potassium 4.0, BUN 22, serum creatinine 1.2, lactate 3.5, magnesium 1.9, troponin 1, proBNP 603, COVID-19 PCR negative Echocardiogram 2018 revealed an EF of 5560 percent, RV severely enlarged, mild mitral regurgitation, severe tricuspid regurgitation, severe pulmonary hypertension Cardiac catheterization in 2012 with normal coronary arterties Current cardiac medications include Coumadin 5 mg daily, torsemide 40 mg daily, spironolactone 25 mg daily, metformin, metoprolol titrate 25 mg twice a day, lovastatin 20 mg daily, Tikosyn 500 mcg daily REVIEW OF SYSTEMS At the time of my exam: CONSTITUTIONAL: Denies fever or chills. CARDIOVASCULAR: +shortness of breath +orthopnea +edema Denies chest pain or palpitations. RESPIRATORY: Denies cough. GASTROINTESTINAL: Denies abdominal pain, diarrhea, constipation, nausea or vomiting. MUSCULOSKELETAL: Denies myalgias. NEUROLOGIC: Denies numbness, tingling, headacbe or weakness. ENDOCRINE: Denies fatigue, weight change, polydipsia or polyurina. GENITOURINARY: Denies burning, hematuria or urgency with micturation. HEMATOLOGIC: Denies history of anemia or bleeding. PHYSICAL EXAMINATION Blood pressure 126/70, heart rate 99, on Bipap CONSTITUTIONAL: Short of breath HEENT: Head is normocephalic. Pupils are equal, round. Sclerae anicteric. Mucous membranes of the mouth are moist. + JVD. No carotid bruit. CHEST EXAMINATION: Lungs are bilateral rhonci to auscultation. No chest wall tenderness is noted on palpation or with deep breathing. HEART EXAMINATION: Regular rate and rhythm. S1, S2 heard. Systolic ejection murmur noted. ABDOMEN: Soft, nontender. Positive bowel sounds. EXTREMITIES: 2+ peripheral pulses, 3+ bilateral lower extremity edema, left lower extremity redness NEUROLOGIC EXAMINATION: Patient is awake, alert and oriented x3. ASSESSMENT Acute on chronic heart failure, likely diastolic, echocardiogram pending Pulmonary hypertension Acute hypoxic respiratory failure Chronic persistent atrial fibrillation [id number] score 4 on coumadin Sick sinus syndrome status post dual chamber permanent pacemaker 2012 Hypertension Obesity Type 2 diabetes PLAN Obtain 2D echocardiogram Continue IV Diuresis 40mg BID Continue statin, metoprolol tartrate, and coumadin Monitor I/Os, daily weights Monitor renal function and daily electrolytes Daily INRs Further recommendations based on clinical course Nurse Practitioner note has been reviewed, I agree with a documented findings and plan of care. Patient was seen and examined. Past Medical History Past Medical History: Atrial Fibrillation, COPD, Diabetes Mellitus, Hyperlipidemia, Sleep Apnea/CPAP/BIPAP Additional Past Medical History / Comment(s): cardiomyopathy. arthritis. gout History of Any Multi-Drug Resistant Organisms: MRSA, VRE Date of last positivie culture/infection: 10/30/13-MRSA and VRE MDRO Source:: Site Unknown Past Surgical History: Bowel Resection, Pacemaker Additional Past Surgical History / Comment(s): Sinus surgery. VIANEY, bilateral cataract removal with lens implants Past Anesthesia/Blood Transfusion Reactions: No Reported Reaction Type of Cardiac Device: Permanent Pacemaker Device Placement Date:: 10/17/2012 Past Psychological History: Depression Past Alcohol Use History: Rare Past Drug Use History: None Reported - Past Family History Father Additional Family Medical History / Comment(s): "hardening of the arteries" Mother Additional Family Medical History / Comment(s): "water in the lungs" at 95 Medications and Allergies Home Medications Medication Instructions Recorded Confirmed Type Budesonide [Pulmicort] 0.5 mg INHALATION RT-BID 11/20/13 05/24/21 History Dofetilide [Tikosyn] 500 mcg PO BID 11/20/13 05/24/21 History Spironolactone [Aldactone] 25 mg PO DAILY 11/20/13 05/24/21 History glipiZIDE [Glucotrol] 10 mg PO AC-BID 11/20/13 05/24/21 History allopurinoL [Zyloprim] 300 mg PO DAILY 11/21/14 05/24/21 History Acetaminophen Tab [Tylenol] 325 mg PO QID PRN MDD 6 TABLETS 07/12/16 05/24/21 History Ergocalciferol [Vitamin D2 50,000 unit PO HODGES 07/12/16 05/24/21 History (DRISDOL)] Multivitamins, Thera [Multivitamin 1 tab PO DAILY 10/03/17 05/24/21 History (formulary)] Torsemide [Demadex] 40 mg PO DAILY 10/03/17 05/24/21 History Albuterol Sulfate [Proair Hfa] 2 puff INHALATION RT-QID PRN 06/23/18 05/24/21 History Warfarin Sodium [Coumadin] 5 mg PO DAILY 30 Days #30 tablet 06/26/18 05/24/21 Rx Levothyroxine Sodium [Synthroid] 50 mcg PO DAILY 05/24/21 05/24/21 History Lovastatin [Altoprev] 20 mg PO DAILY 05/24/21 05/24/21 History Magnesium 500 mg PO DAILY 05/24/21 05/24/21 History Metoprolol Tartrate [Lopressor] 25 mg PO BID 05/24/21 05/24/21 History metFORMIN HCL [Glucophage] 1,000 mg PO BID 05/24/21 05/24/21 History Allergies Allergy/AdvReac Type Severity Reaction Status Date / Time No Known Allergies Allergy Verified 05/24/21 22:01 Physical Exam Vitals: Vital Signs Temp Pulse Resp BP Pulse Ox 05/25/21 11:22 99 20 05/25/21 10:08 99 20 126/70 88 L 05/25/21 07:25 98.7 F 99 24 135/80 92 L 05/25/21 07:20 88 22 05/25/21 07:10 88 23 05/25/21 07:06 92 L 05/25/21 06:12 92 L 05/25/21 05:45 92 L 05/25/21 04:00 87 20 88 L 05/25/21 03:25 89 05/25/21 03:09 89 90 L 05/25/21 03:00 85 24 128/78 94 L 05/25/21 01:00 24 130/84 93 L 05/24/21 23:00 85 26 H 132/84 94 L 05/24/21 22:00 87 20 135/83 93 L 05/24/21 21:41 22 05/24/21 21:24 77 05/24/21 21:13 76 05/24/21 21:00 87 20 135/80 95 05/24/21 20:59 73 05/24/21 20:32 98.0 F 75 20 135/75 97 Intake and Output 05/24/21 05/25/21 05/25/21 22:59 06:59 14:59 Other: Weight 153.314 kg Results 05/24/21 21:21 05/24/21 21:21 Cardiac Enzymes 05/24/21 05/24/21 Range/Units 21:21 21:21 AST 31 (17-59) U/L Troponin I <0.012 (0.000-0.034) ng/mL Coagulation 05/24/21 Range/Units 21:21 PT 31.1 H (9.0-12.0) sec APTT 31.6 H (22.0-30.0) sec CBC 05/24/21 Range/Units 21:21 WBC 9.4 (3.8-10.6) k/uL RBC 4.76 (4.30-5.90) m/uL Hgb 15.1 (13.0-17.5) gm/dL Hct 47.2 (39.0-53.0) % Plt Count 159 (150-450) k/uL Comprehensive Metabolic Panel 05/24/21 Range/Units 21:21 Sodium 137 (137-145) mmol/L Potassium 4.0 (3.5-5.1) mmol/L Chloride 101 (98-107) mmol/L Carbon Dioxide 24 (22-30) mmol/L BUN 22 H (9-20) mg/dL Creatinine 1.21 (0.66-1.25) mg/dL Glucose 114 H (74-99) mg/dL Calcium 9.0 (8.4-10.2) mg/dL AST 31 (17-59) U/L ALT 16 (4-49) U/L Alkaline Phosphatase 117 (38-126) U/L Total Protein 7.7 (6.3-8.2) g/dL Albumin 3.9 (3.5-5.0) g/dL Current Medications Generic Name Dose Route Start Last Admin Trade Name Freq PRN Reason Stop Dose Admin Acetaminophen 325 mg 05/25/21 09:06 Acetaminophen Tab 325 Mg Tab PO QID PRN Fever and/ or Pain Albuterol/Ipratropium 3 ml 05/24/21 22:23 05/25/21 03:08 Ipratropium-Albuterol 3 Ml Neb INHALATION 3 ml RT-Q4H PRN Administration Shortness Of Breath Or Wheezing Albuterol/Ipratropium 3 ml 05/25/21 08:00 05/25/21 11:22 Ipratropium-Albuterol 3 Ml Neb INHALATION 3 ml RT-QID SERGEY Administration Allopurinol 300 mg 05/26/21 09:00 Allopurinol 300 Mg Tab PO DAILY [facility] Atorvastatin Calcium 10 mg 05/26/21 09:00 Atorvastatin 10 Mg Tab PO DAILY [facility] Budesonide 0.5 mg 05/25/21 20:00 Budesonide 0.5 Mg/2 Ml Nebu INHALATION RT-BID SERGEY Dofetilide 500 mcg 05/25/21 21:00 Dofetilide 500 Mcg Cap PO BID SERGEY Furosemide 40 mg 05/25/21 09:00 05/25/21 10:02 Furosemide 10 Mg/Ml 4 Ml Vial IV 40 mg Q12HR SERGEY Administration Cefazolin Sodium 1,000 mg/ 50 mls @ 100 mls/hr 05/25/21 08:15 05/25/21 10:02 Sodium Chloride IVPB 100 mls/hr Q8HR SERGEY Administration Insulin Aspart 0 unit 05/25/21 12:30 Insulin Aspart (Novolog) 100 Unit/Ml Vial SQ ACHS [facility] Protocol Levothyroxine Sodium 50 mcg 05/26/21 06:30 Levothyroxine 50 [place] [address]30 [facility] Magnesium Oxide 400 mg 05/26/21 09:00 Magnesium Oxide 400 Mg Tab PO DAILY [facility] Metoprolol Tartrate 25 mg 05/25/21 21:00 Metoprolol Tartrate 25 Mg Tab PO BID [facility] Miscellaneous Information 1 each 05/25/21 09:07 Warfarin Per Pharmacy MISCELLANE DIRECTED PRN Per Protocol Multivitamins 1 each 05/26/21 09:00 Multivitamins, Thera 1 Each Tab PO DAILY SERGEY Intake and Output 05/24/21 05/25/21 05/25/21 22:59 06:59 14:59 Other: Weight 153.314 kg 05/24/21 21:21 05/24/21 21:21
[2021-05-25 15:00] LABS: Anisocytosis Slight; Basophils # (A) 0.1 k/uL (0-0.2); Basophils % (A) 1 %; Eosinophils % (A) 0 %; HCT 46.5 % (39.0-53.0); HGB 14.6 gm/dL (13.0-17.5); Hypochromasia Slight; Lymphocytes # (A) 0.5 k/uL (1.0-4.8); Lymphocytes % (A) 7 %; MCH 32.2 pg (25.0-35.0); MCHC 31.3 g/dL (31.0-37.0); MCV 102.7 fL (80.0-100.0); Macrocytosis Moderate; Mean Platelet Volume 10.8; Monocytes # (A) 0.2 k/uL (0-1.0); Monocytes % (A) 2 %; Neutrophils # (A) 6.9 k/uL (1.3-7.7); Neutrophils % (A) 90 %; Platelet Count 137 k/uL (150-450); RBC 4.53 m/uL (4.30-5.90); RDW 17.3 % (11.5-15.5); WBC 7.7 k/uL (3.8-10.6)
[2021-05-25 16:33] LABS: Appearance,Urine Clear (Clear); Bilirubin,Urine Negative (Negative); Blood,Urine Negative (Negative); Color,Urine Yellow; Glucose,Urine (UA) Negative (Negative); Ketones,Urine Negative (Negative); Leukocyte Esterase,Urine Negative (Negative); Nitrite,Urine Negative (Negative); Protein,Urine Negative (Negative); Specific Gravity,Urine 1.013 (1.001-1.035); Urobilinogen,Urine <2.0 mg/dL (<2.0)
[2021-05-25 17:29] LABS: Glucose,Whole Blood 210 mg/dL (75-99)
[2021-05-25] MEDS ORDERED: WARFARIN 2.5 MG TAB PO ONE (18:00)
[2021-05-25 19:49] LABS: African American GFR (CKD) 57.5 (60.0-200.0); Albumin 3.8 g/dL (3.8-4.9); Albumin/Globulin Ratio 1.15 (1.60-3.17); BUN/Creat Ratio 15.18 Ratio (12.00-20.00); Blood Urea Nitrogen 21.1 mg/dL (9.0-27.0); Calcium 8.9 mg/dL (8.7-10.3); Carbon Dioxide 13.6 mmol/L (21.6-31.8); Globulin 3.3 g/dL (1.6-3.3); Non-African American GFR(CKD) 49.6 (60.0-200.0); Potassium 4.7 mmol/L (3.5-5.5); Total Bilirubin 0.9 mg/dL (0.30-1.20); Total Protein 7.2 g/dL (6.2-8.2)
[2021-05-25] MEDS: BUDESONIDE 0.5 MG/2 ML NEBU INHALATION SCH (20:34)
[2021-05-25 20:37] LABS: Glucose,Whole Blood 221 mg/dL (75-99)
[2021-05-25] MEDS: METOPROLOL TARTRATE 25 MG TAB PO SCH (20:39)
[2021-05-25] MEDS: DOFETILIDE 500 MCG CAP PO SCH (20:55)
[2021-05-26] MEDS: PANTOPRAZOLE 40 MG TABLET PO SCH (06:01)
[2021-05-26] MEDS: LEVOTHYROXINE 50 MCG TAB PO SCH (06:01)
[2021-05-26] MEDS: ACETAMINOPHEN TAB 325 MG TAB PO PRN (06:01)
[2021-05-26] MEDS: BUDESONIDE 0.5 MG/2 ML NEBU INHALATION SCH ×2 (07:05→19:48)
[2021-05-26] MEDS: IPRATROPIUM-ALBUTEROL 3 ML NEB INHALATION SCH ×4 (07:05→19:48)
[2021-05-26 07:18] LABS: Glucose,Whole Blood 149 mg/dL (75-99)
[2021-05-26] MEDS: INSULIN ASPART (NovoLOG) 100 UNIT/ML VIAL SQ SCH ×4 (07:33→21:37)
--- NOTE | 2021-05-26 08:01 | XR ---
EXAMINATION TYPE: XR chest 1V portable DATE OF EXAM: 05/26/2021 COMPARISON: 05/24/2000 HISTORY: Difficulty breathing TECHNIQUE: Single frontal view of the chest is obtained. FINDINGS: Heart is enlarged and there is bilateral infiltrate and small pleural effusion left. Cardi ac device noted. No sizable pneumothorax. Atherosclerotic change aorta. IMPRESSION: 1. Cardiomegaly. 2. Right basilar infiltrate and small left pleural effusion stable
[2021-05-26] MEDS: MAGNESIUM OXIDE 400 MG TAB PO SCH (10:00)
[2021-05-26] MEDS: METOPROLOL TARTRATE 25 MG TAB PO SCH ×2 (10:00→21:40)
[2021-05-26] MEDS: DOFETILIDE 500 MCG CAP PO SCH ×2 (10:00→21:40)
[2021-05-26] MEDS: allopurinoL 300 MG TAB PO SCH (10:00)
[2021-05-26] MEDS: MULTIVITAMINS, THERA 1 EACH TAB PO SCH (10:00)
[2021-05-26] MEDS: FUROSEMIDE 10 MG/ML 4 ML VIAL IV SCH ×2 (10:00→21:41)
[2021-05-26] MEDS: ATORVASTATIN 10 MG TAB PO SCH (10:00)
--- NOTE | 2021-05-26 10:22 | P.PN ---
Subjective This is a pleasant 75-year-old male past medical history significant for chronic persistent atrial fibrillation, sick sinus syndrome status post dual chamber permanent pacemaker 2012, hypertension, obesity, type 2 diabetes, pulmonary hypertension, left ventricular hypertrophy, venous insufficiency, lymphedema, former tobacco use 20+ years ago. He follows in the office with Dr. Witt. We have been asked to see in consultation for congestive heart failure. Patient presents emergency department with complaints of shortness of breath, 29lb weig ht gain over 1 month and worsening lower extremity edema. Patient seen and examined at bedside, his symptoms of shortness of breath have slightly improved. Labs are pending from today. Per Nursing patient is voiding, only 400mL documented. Patient is currently maintained on antibiotics for cellulitis, IV Lasix 40 mg twice a day, atorvastatin 10 mg daily, Tikosyn 500mcg BID, magnesium oxide, metoprolol tartrate 25 mg twice a day, Coumadin. PHYSICAL EXAMINATION Blood pressure blood pressure 115/71, heart 67, afebrile, on nasal cannula this morning. CONSTITUTIONAL: No acute distress. HEENT: Neck Supple. mild JVD. CHEST EXAMINATION: Lungs are bilateral rhonci to auscultation. No chest wall tenderness is noted on palpation or with deep breathing. HEART EXAMINATION: Regular rate and rhythm. S1, S2 heard. Systolic ejection murmur noted. ABDOMEN: Soft, nontender. Positive bowel sounds. EXTREMITIES: 2+ peripheral pulses, 3+ bilateral lower extremity edema, left lower extremity redness NEUROLOGIC EXAMINATION: Patient is awake, alert and oriented x3. ASSESSMENT Acute on chronic heart failure, likely diastolic, echocardiogram pending Pulmonary hypertension Acute hypoxic respiratory failure Chronic persistent atrial fibrillation [id number] score 4 on coumadin Sick sinus syndrome status post dual chamber permanent pacemaker 2012 Hypertension Obesity Type 2 diabetes PLAN Echocardiogram pending Labs pending from this morning Continue IV Lasix 40mg BID Continue statin, metoprolol tartrate, and coumadin Monitor I/Os, daily weights Monitor renal function and daily electrolytes Daily INRs Further recommendations based on clinical course Nurse Practitioner note has been reviewed, I agree with a documented findings and plan of care. Patient was seen and examined. Objective - Vital Signs Vital signs: Vital Signs Temp 97.6 F 05/26/21 05:55 Pulse 80 05/26/21 07:22 Resp 18 05/26/21 05:55 BP 115/71 05/26/21 05:55 Pulse Ox 95 05/26/21 05:55 Intake & Output 05/25/21 05/26/21 05/26/21 18:59 06:59 18:59 Intake Total 170 Output Total 400 Balance -400 170 Weight 153.314 kg 166.5 kg Intake: Oral 170 Output: Urine 400 Other: Voiding Method Bedpan # Voids 2 # Bowel Movements 1 - Labs CBC & Chem 7: 05/25/21 12:07 05/25/21 03:57 Labs: Abnormal Lab Results - Last 24 Hours (Table) 05/24/21 05/25/21 05/25/21 Range/Units 21:21 03:57 11:53 MCV (80.0-100.0) fL RDW (11.5-15.5) % Plt Count (150-450) k/uL Lymphocytes # (1.0-4.8) k/uL PT (9.0-12.0) sec INR (<1.2) Carbon Dioxide 13.6 L (21.6-31.8) mmol/L Anion Gap 22.00 H (4.00-12.00) mmol/L Est GFR (CKD-EPI)AfAm 57.5 L (60.0-200.0) Est GFR (CKD-EPI)NonAf 49.6 L (60.0-200.0) Glucose 160 H (70-110) mg/dL POC Glucose (mg/dL) 220 H (75-99) mg/dL Hemoglobin A1c (4.0-6.0) % Plasma Lactic Acid Jarvis (0.7-2.0) mmol/L AST 40 H (14-35) U/L Albumin/Globulin Ratio 1.15 L (1.60-3.17) g/dL Procalcitonin 0.17 H (0.02-0.09) ng/mL 05/25/21 05/25/21 05/25/21 Range/Units 12:07 12:07 12:07 MCV 102.7 H (80.0-100.0) fL RDW 17.3 H (11.5-15.5) % Plt Count 137 L (150-450) k/uL Lymphocytes # 0.5 L (1.0-4.8) k/uL PT 31.5 H (9.0-12.0) sec INR 3.3 H (<1.2) Carbon Dioxide (21.6-31.8) mmol/L Anion Gap (4.00-12.00) mmol/L Est GFR (CKD-EPI)AfAm (60.0-200.0) Est GFR (CKD-EPI)NonAf (60.0-200.0) Glucose (70-110) mg/dL POC Glucose (mg/dL) (75-99) mg/dL Hemoglobin A1c 6.5 H (4.0-6.0) % Plasma Lactic Acid Jarvis (0.7-2.0) mmol/L AST (14-35) U/L Albumin/Globulin Ratio (1.60-3.17) g/dL Procalcitonin (0.02-0.09) ng/mL 05/25/21 05/25/21 05/25/21 Range/Units 12:07 15:24 17:23 MCV (80.0-100.0) fL RDW (11.5-15.5) % Plt Count (150-450) k/uL Lymphocytes # (1.0-4.8) k/uL PT (9.0-12.0) sec INR (<1.2) Carbon Dioxide (21.6-31.8) mmol/L Anion Gap (4.00-12.00) mmol/L Est GFR (CKD-EPI)AfAm (60.0-200.0) Est GFR (CKD-EPI)NonAf (60.0-200.0) Glucose (70-110) mg/dL POC Glucose (mg/dL) 210 H (75-99) mg/dL Hemoglobin A1c (4.0-6.0) % Plasma Lactic Acid Jarvis 3.5 H* 2.4 H* (0.7-2.0) mmol/L AST (14-35) U/L Albumin/Globulin Ratio (1.60-3.17) g/dL Procalcitonin (0.02-0.09) ng/mL 05/25/21 05/25/21 05/25/21 Range/Units 18:05 20:35 21:47 MCV (80.0-100.0) fL RDW (11.5-15.5) % Plt Count (150-450) k/uL Lymphocytes # (1.0-4.8) k/uL PT (9.0-12.0) sec INR (<1.2) Carbon Dioxide (21.6-31.8) mmol/L Anion Gap (4.00-12.00) mmol/L Est GFR (CKD-EPI)AfAm (60.0-200.0) Est GFR (CKD-EPI)NonAf (60.0-200.0) Glucose (70-110) mg/dL POC Glucose (mg/dL) 221 H (75-99) mg/dL Hemoglobin A1c (4.0-6.0) % Plasma Lactic Acid Javris 3.2 H* 2.4 H* (0.7-2.0) mmol/L AST (14-35) U/L Albumin/Globulin Ratio (1.60-3.17) g/dL Procalcitonin (0.02-0.09) ng/mL 05/26/21 Range/Units 07:15 MCV (80.0-100.0) fL RDW (11.5-15.5) % Plt Count (150-450) k/uL Lymphocytes # (1.0-4.8) k/uL PT (9.0-12.0) sec INR (<1.2) Carbon Dioxide (21.6-31.8) mmol/L Anion Gap (4.00-12.00) mmol/L Est GFR (CKD-EPI)AfAm (60.0-200.0) Est GFR (CKD-EPI)NonAf (60.0-200.0) Glucose (70-110) mg/dL POC Glucose (mg/dL) 149 H (75-99) mg/dL Hemoglobin A1c (4.0-6.0) % Plasma Lactic Acid Jarvis (0.7-2.0) mmol/L AST (14-35) U/L Albumin/Globulin Ratio (1.60-3.17) g/dL Procalcitonin (0.02-0.09) ng/mL
[2021-05-26 11:16] LABS: Calcium 9.5 mg/dL (8.4-10.2); Potassium 4.8 mmol/L (3.5-5.1); Total Bilirubin 1.1 mg/dL (0.2-1.3); Total Protein 7.6 g/dL (6.3-8.2)
[2021-05-26 11:23] LABS: INR 3.3 (<1.2); Prothrombin Time 31.8 sec (9.0-12.0)
[2021-05-26 11:31] LABS: Anisocytosis Slight; Basophils % (A) 0 %; Eosinophils % (A) 0 %; HCT 46.6 % (39.0-53.0); HGB 14.9 gm/dL (13.0-17.5); Lymphocytes # (A) 0.7 k/uL (1.0-4.8); Lymphocytes % (A) 5 %; MCH 32.2 pg (25.0-35.0); MCV 100.7 fL (80.0-100.0); Macrocytosis Moderate; Monocytes # (A) 0.8 k/uL (0-1.0); Monocytes % (A) 6 %; Neutrophils # (A) 12.4 k/uL (1.3-7.7); Neutrophils % (A) 88 %; Platelet Count 204 k/uL (150-450); Poikilocytosis Slight; RBC 4.63 m/uL (4.30-5.90); RDW 17.9 % (11.5-15.5); WBC 14.1 k/uL (3.8-10.6)
--- NOTE | 2021-05-26 11:51 | ECHOF ---
Referral Reason:chf MEASUREMENTS -------- HEIGHT: 180.3 cm WEIGHT: 153.3 kg BP: 126/60 RVIDd: 3.5 cm (< 3.3) IVSd: 1.4 cm (0.6 - 1.1) LVIDd: 4.2 cm (3.9 - 5.3) LVPWd: 1.5 cm (0.6 - 1.1) IVSs: 1.8 cm LVIDs: 3.0 cm LVPWs: 2.1 cm LA Diam: 3.3 cm (2.7 - 3.8) Ao Diam: 3.7 cm (2.0 - 3.7) AV Cusp: 2.5 cm (1.5 - 2.6) MV EXCURSION: 19.436 mm (> 18.000) MV EF SLOPE: 34 mm/s (70 - 150) EPSS: 0.6 cm MV E Lenin: 0.50 m/s MV DecT: 220 ms MV A Lenin: 0.66 m/s MV E/A Ratio: 0.76 RAP: 5.00 mmHg RVSP: 46.28 mmHg FINDINGS -------- Paced rhythm. This was a technically difficult study with suboptimal views. The left ventricular size is normal. There is moderate concentric left ventricular hypertrophy. O verall left ventricular systolic function is normal with, an EF between 60 - 65 %. The right ventricle is moderately enlarged. The right ventricular systolic function is moderately i mpaired. The left atrium is normal in size. The right atrium is normal in size. 5 ml of Lumason was utilized for enhancement of images. There is mild aortic valve sclerosis. The mitral valve was not well visualized. Moderate tricuspid regurgitation present. There is moderate pulmonary hypertension. The right jared tricular systolic pressure, as measured by Doppler, is 46.28mmHg. The pulmonic valve was not well visualized. The aortic root size is normal. IVC Not well visulized. There is no pericardial effusion. CONCLUSIONS -------- 1. This was a technically difficult study with suboptimal views. 2. The left ventricular size is normal. 3. There is moderate concentric left ventricular hypertrophy. 4. Overall left ventricular systolic function is normal with, an EF between 60 - 65 %. 5. The right ventricle is moderately enlarged. 6. The right ventricular systolic function is moderately impaired. 7. 5 ml of Lumason was utilized for enhancement of images. 8. Moderate tricuspid regurgitation present. 9. There is moderate pulmonary hypertension. 10. The right ventricular systolic pressure, as measured by Doppler, is 46.28mmHg. 11. There is no pericardial effusion. WEB APPLICATION DEVELOPER: Milvia Luna RDCS
--- NOTE | 2021-05-26 11:55 | P.PN ---
Subjective Progress Note Date: 05/26/21 This is a 75-year-old male that we saw in the emergency department, room 6. The patient came into the emergency room, with weight gain, lower extremity edema with cellulitis, falling at home, and shortness of breath. The patient does have a history of chronic hypoxemic respiratory failure and does use oxygen at 3 L/m, at home. He also has sleep apnea, and for that he uses CPAP at home. His primary care provider is Dr. Sampson. He used to see Dr. SRIRAM Chu as his renal social worker. The patient has a history of atrial fibrillation, a questionable history of COPD even though he wasn't a smoker, diabetes mellitus, hyperlipidemia, and sleep apnea syndrome. He also suffers some arthritis, gout, cardiomyopathy, and has a previous history of methicillin-resistant staph aureus infection, and also infection with vancomycin-resistant enterococci. He is status post pacemaker insertion. Anyway, the patient states that at home, he's been feeling very weak and is been falling. He's gained quite a bit of weight has significant lower extremity edema. White count 9.4, hemoglobin 15.1, hematocrit 47.2, and platelet count 159,000. PTT 31.1, INR 3.2, and PTT 31.6. Sodium 137, potassium 4, chlorides 101, CO2 24, anion gap 12, BUN 22, creatinine 1.21. Lactic acid was 2.9 and repeat was 3.5. Troponin was normal. N-terminal proBNP was 608. Testing for medina virus was negative. Chest x-ray showed evidence of cardiomegaly, and a posterior pleural effusion. The patient is seen today 05/26/2021 in follow-up on the observation unit. He is currently sitting up in bed. Awake and alert in no acute distress. He is currently on 15 L high flow nasal cannula maintaining O2 saturations in the 90s. He did wear BiPAP 12/6 and 50% FiO2 overnight. Chest x-ray reveals cardiomegaly. A right basilar infiltrate and small left pleural effusion. Venous Dopplers of the lower extremities were negative for DVT. He is currently on a cefazolin for cellulitis of the lower extremities. White count 14.1. Hemoglobin 14.9. Platelets 204. INR 3.3. Sodium 139. Potassium 4.8. Creatinine 1.14. He remains on DuoNeb inhalations, Pulmicort inhalations, Lasix 40 mg IV every 12 hours. He is on dofetilide. Anticoagulated with warfarin. Objective - Vital Signs Vital signs: Vital Signs Temp 97.6 F 05/26/21 05:55 Pulse 80 05/26/21 07:22 Resp 18 05/26/21 05:55 BP 115/71 05/26/21 05:55 Pulse Ox 95 05/26/21 05:55 Intake & Output 05/25/21 05/26/21 05/26/21 18:59 06:59 18:59 Intake Total 170 50 Output Total 400 200 Balance -400 170 -150 Weight 153.314 kg 166.5 kg Intake: Oral 170 50 Output: Urine 400 200 Other: Voiding Method Bedpan # Voids 2 # Bowel Movements 1 - Exam Pleasant 75-year-old gentleman, currently on 15 L high flow nasal cannula. No acute distress, oriented 3. Mild tachypnea, alternating with BiPAP at 12/6 and 50%. HEENT examination is grossly unremarkable. Neck supple. Full range of motion. No adenopathy thyromegaly or neck vein distention. Cardiovascular examination reveals regular rhythm rate. S1-S2 normal. No S3 or S4. No discernible murmur noted. Heart sounds are distant. Lungs reveal no rhonchi. No wheezes. Minimal basilar crackles noted. Breath sounds equal bilaterally. Abdomen soft bowel sounds are heard. No masses or tenderness. Extremities are edematous, but diffuse bilateral lower extremity cellulitis, pitting, and chronic venous stasis changes. Skin is without rash or lesion. Neurologic examination is brief but nonfocal. - Labs CBC & Chem 7: 05/26/21 10:26 05/26/21 10:26 Labs: Abnormal Lab Results - Last 24 Hours (Table) 05/25/21 05/25/21 05/25/21 Range/Units 03:57 11:53 12:07 WBC (3.8-10.6) k/uL MCV (80.0-100.0) fL RDW (11.5-15.5) % Plt Count (150-450) k/uL Neutrophils # (1.3-7.7) k/uL Lymphocytes # (1.0-4.8) k/uL PT (9.0-12.0) sec INR (<1.2) Carbon Dioxide 13.6 L (21.6-31.8) mmol/L Anion Gap 22.00 H (4.00-12.00) mmol/L BUN (9-20) mg/dL Est GFR (CKD-EPI)AfAm 57.5 L (60.0-200.0) Est GFR (CKD-EPI)NonAf 49.6 L (60.0-200.0) Glucose 160 H (70-110) mg/dL POC Glucose (mg/dL) 220 H (75-99) mg/dL Hemoglobin A1c 6.5 H (4.0-6.0) % Plasma Lactic Acid Jarvis (0.7-2.0) mmol/L AST 40 H (14-35) U/L Albumin/Globulin Ratio 1.15 L (1.60-3.17) g/dL 05/25/21 05/25/21 05/25/21 Range/Units 12:07 12:07 12:07 WBC (3.8-10.6) k/uL MCV 102.7 H (80.0-100.0) fL RDW 17.3 H (11.5-15.5) % Plt Count 137 L (150-450) k/uL Neutrophils # (1.3-7.7) k/uL Lymphocytes # 0.5 L (1.0-4.8) k/uL PT 31.5 H (9.0-12.0) sec INR 3.3 H (<1.2) Carbon Dioxide (21.6-31.8) mmol/L Anion Gap (4.00-12.00) mmol/L BUN (9-20) mg/dL Est GFR (CKD-EPI)AfAm (60.0-200.0) Est GFR (CKD-EPI)NonAf (60.0-200.0) Glucose (70-110) mg/dL POC Glucose (mg/dL) (75-99) mg/dL Hemoglobin A1c (4.0-6.0) % Plasma Lactic Acid Jarvis 3.5 H* (0.7-2.0) mmol/L AST (14-35) U/L Albumin/Globulin Ratio (1.60-3.17) g/dL 05/25/21 05/25/21 05/25/21 Range/Units 15:24 17:23 18:05 WBC (3.8-10.6) k/uL MCV (80.0-100.0) fL RDW (11.5-15.5) % Plt Count (150-450) k/uL Neutrophils # (1.3-7.7) k/uL Lymphocytes # (1.0-4.8) k/uL PT (9.0-12.0) sec INR (<1.2) Carbon Dioxide (21.6-31.8) mmol/L Anion Gap (4.00-12.00) mmol/L BUN (9-20) mg/dL Est GFR (CKD-EPI)AfAm (60.0-200.0) Est GFR (CKD-EPI)NonAf (60.0-200.0) Glucose (70-110) mg/dL POC Glucose (mg/dL) 210 H (75-99) mg/dL Hemoglobin A1c (4.0-6.0) % Plasma Lactic Acid Jarvis 2.4 H* 3.2 H* (0.7-2.0) mmol/L AST (14-35) U/L Albumin/Globulin Ratio (1.60-3.17) g/dL 05/25/21 05/25/21 05/26/21 Range/Units 20:35 21:47 07:15 WBC (3.8-10.6) k/uL MCV (80.0-100.0) fL RDW (11.5-15.5) % Plt Count (150-450) k/uL Neutrophils # (1.3-7.7) k/uL Lymphocytes # (1.0-4.8) k/uL PT (9.0-12.0) sec INR (<1.2) Carbon Dioxide (21.6-31.8) mmol/L Anion Gap (4.00-12.00) mmol/L BUN (9-20) mg/dL Est GFR (CKD-EPI)AfAm (60.0-200.0) Est GFR (CKD-EPI)NonAf (60.0-200.0) Glucose (70-110) mg/dL POC Glucose (mg/dL) 221 H 149 H (75-99) mg/dL Hemoglobin A1c (4.0-6.0) % Plasma Lactic Acid Jarvis 2.4 H* (0.7-2.0) mmol/L AST (14-35) U/L Albumin/Globulin Ratio (1.60-3.17) g/dL 05/26/21 05/26/21 05/26/21 Range/Units 10:26 10:26 10:26 WBC 14.1 H (3.8-10.6) k/uL MCV 100.7 H (80.0-100.0) fL RDW 17.9 H (11.5-15.5) % Plt Count (150-450) k/uL Neutrophils # 12.4 H (1.3-7.7) k/uL Lymphocytes # 0.7 L (1.0-4.8) k/uL PT 31.8 H (9.0-12.0) sec INR 3.3 H (<1.2) Carbon Dioxide (21.6-31.8) mmol/L Anion Gap (4.00-12.00) mmol/L BUN 34 H (9-20) mg/dL Est GFR (CKD-EPI)AfAm (60.0-200.0) Est GFR (CKD-EPI)NonAf (60.0-200.0) Glucose 180 H (70-110) mg/dL POC Glucose (mg/dL) (75-99) mg/dL Hemoglobin A1c (4.0-6.0) % Plasma Lactic Acid Jarvis (0.7-2.0) mmol/L AST (14-35) U/L Albumin/Globulin Ratio (1.60-3.17) g/dL Assessment and Plan Assessment: 1 Acute cor pulmonale, with right-sided heart failure, pulmonary hypertension, likely secondary to sleep apnea syndrome, and possible Pickwickian syndrome. 2 Doubt significant chronic lung disease, as the patient is a lifelong nonsmoker. 3 Morbid obesity. 4 History of obstructive sleep apnea syndrome, on home CPAP. 5 History of chronic atrial fibrillation. Anticoagulated with warfarin 6 Status post pacemaker insertion. 7 History of diabetes mellitus. 8 History of hyperlipidemia. 9 History of cardiomyopathy. 10 History of arthritis. 11 History of gout. 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 Plan: The patient was seen and evaluated by Dr. Marcos Chest x-ray and labs reviewed Titrate down the FiO2 as tolerated Pulmicort discontinued Antibiotics for cellulitis We'll continue to follow I, the cosigning physician, performed a history & physical examination of the patient. Lungs sounds crackles in bilateral bases. Maintaining good O2 saturations in the 90s on 15 L high flow nasal cannula alternating with BiPAP. I discussed the assessment and plan of care with my nurse practitioner, Mary Pedro. I attest to the above note as dictated by her.
[2021-05-26 12:36] LABS: Glucose,Whole Blood 150 mg/dL (75-99)
--- NOTE | 2021-05-26 14:32 | P.CONS ---
History of Present Illness - Reason for Consult Consult date: 05/25/21 leg cellulitis Requesting physician: Catrina Lew - Chief Complaint shortness of breath x few days - History of Present Illness History of Present Illness : Patient is a 75-year-old male with a past medical history sniffing for CHF and COPD presenting to the ER yesterday for evaluation of increasing shortness of breath that have been getting worse for the last 1 week patient did mention significant weight gain over the last few weeks of almost 20 pounds patient denies having any fever or any chills denies any URI symptoms patient did have a cough which is mild to moderate intensity mostly dry in nature no pleuritic chest pain no nausea vomiting no choking on food no abdominal pain or any diarrhea on presentation to the hospital the patient was afebrile patient did have a normal white count kidney function was normal liver enzymes are normal lactic acid was mildly elevated procalcitonin 0.17 patient did have a chest x-ray cardiomegaly posterior pleural effusion, patient also noticed to have swelling and erythema to the lower extremity with concern for cellulitis the patient was started on cefazolin infectious disease was consulted for further management of antibiotic therapy Review of system: CONSTITUTIONAL: Positive for weakness denies high-grade fever. EYES: No complaint. ENT: No complaint. RESPIRATORY: As per history of present illness. CARDIOVASCULAR: As per history of present illness. GENITOURINARY: No complaint. GASTROINTESTINAL: No complaint. MUSCULOSKELETAL: No complaint. INTEGUMENTARY : No complaint. PSYCHOLOGIC: No complaint. ENDOCRINE: No complaint. NEUROLOGIC: No complaint. Past medical history : Reviewed, documented below Past surgical history : Reviewed, documented below Social history: Reviewed, documented below Medications: Reviewed, as documented below EXAMINATION: Vital sigans= Reviewed and documented below GENERAL DESCRIPTION: Elderly male lying in bed, no distress. No tachypnea or accessory muscle of respiration use. HEENT: Shows Pallor , no scleral icterus. Oral mucous membrane is dry. NECK: Trachea central, no thyromegaly. LUNGS: Unlabored breathing. Decreased breath sound the bases. No wheeze or crackle. HEART: S1, S2, regular rate and rhythm. ABDOMEN: Soft, no tenderness , guarding or rigidity EXTREMITIES: Diffuse swelling to lower extremity with minimal redness SKIN: No rash, no masses palpable. NEUROLOGICAL: The patient is awake, alert, oriented x3, mood and affect normal. LABS AND RADIOLOGY: Reviewed results see below Assessment : Patient presented to hospital with increasing shortness of breath in this patient who did have evidence of fluid overload with evidence of cardi omegaly and effusion in the patient is reporting a 20 pound weight gain with evidence of swelling to the lower extremity and mild cellulitis likely from gram-positive skin benny Plan: 1-cefazolin 2 g every 8 hour 2-Marked area of the redness 3-Drew wrap to the left from just above the toe to below the knee We will follow on clinical condition and cultures to further adjust medication if needed Thank you for this consultation we will follow the patient along with you Past Medical History Past Medical History: Atrial Fibrillation, COPD, Diabetes Mellitus, Hyperlipidemia, Sleep Apnea/CPAP/BIPAP Additional Past Medical History / Comment(s): cardiomyopathy. arthritis. 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 VIANEY, bilateral cataract removal with lens implants Past Anesthesia/Blood Transfusion Reactions: No Reported Reaction Type of Cardiac Device: Permanent Pacemaker Device Placement Date:: 10/17/2012 Past Psychological History: Depression Past Alcohol Use History: Rare Past Drug Use History: None Reported - Past Family History Father History Unknown: Yes Additional Family Medical History / Comment(s): "hardening of the arteries" Mother History Unknown: Yes Additional Family Medical History / Comment(s): "water in the lungs" at 95 Medications and Allergies Home Medications Medication Instructions Recorded Confirmed Type Budesonide [Pulmicort] 0.5 mg INHALATION RT-BID 11/20/13 05/24/21 History Dofetilide [Tikosyn] 500 mcg PO BID 11/20/13 05/24/21 History Spironolactone [Aldactone] 25 mg PO DAILY 11/20/13 05/24/21 History glipiZIDE [Glucotrol] 10 mg PO AC-BID 11/20/13 05/24/21 History allopurinoL [Zyloprim] 300 mg PO DAILY 11/21/14 05/24/21 History Acetaminophen Tab [Tylenol] 325 mg PO QID PRN MDD 6 TABLETS 07/12/16 05/24/21 History Ergocalciferol [Vitamin D2 50,000 unit PO HODGES 07/12/16 05/24/21 History (DRISDOL)] Multivitamins, Thera [Multivitamin 1 tab PO DAILY 10/03/17 05/24/21 History (formulary)] Torsemide [Demadex] 40 mg PO DAILY 10/03/17 05/24/21 History Albuterol Sulfate [Proair Hfa] 2 puff INHALATION RT-QID PRN 06/23/18 05/24/21 History Warfarin Sodium [Coumadin] 5 mg PO DAILY 30 Days #30 tablet 06/26/18 05/24/21 Rx Levothyroxine Sodium [Synthroid] 50 mcg PO DAILY 05/24/21 05/24/21 History Lovastatin [Altoprev] 20 mg PO DAILY 05/24/21 05/24/21 History Magnesium 500 mg PO DAILY 05/24/21 05/24/21 History Metoprolol Tartrate [Lopressor] 25 mg PO BID 05/24/21 05/24/21 History metFORMIN HCL [Glucophage] 1,000 mg PO BID 05/24/21 05/24/21 History Allergies Allergy/AdvReac Type Severity Reaction Status Date / Time No Known Allergies Allergy Verified 05/24/21 22:01 Physical Exam Vitals: Vital Signs Temp Pulse Resp BP Pulse Ox 05/25/21 11:32 99 20 05/25/21 11:22 99 20 05/25/21 10:08 99 20 126/70 88 L 05/25/21 07:25 98.7 F 99 24 135/80 92 L 05/25/21 07:20 88 22 05/25/21 07:10 88 23 05/25/21 07:06 92 L 05/25/21 06:12 92 L 05/25/21 05:45 92 L 05/25/21 04:00 87 20 88 L 05/25/21 03:25 89 05/25/21 03:09 89 90 L 05/25/21 03:00 85 24 128/78 94 L 05/25/21 01:00 24 130/84 93 L 05/24/21 23:00 85 26 H 132/84 94 L 05/24/21 22:00 87 20 135/83 93 L 05/24/21 21:41 22 05/24/21 21:24 77 05/24/21 21:13 76 05/24/21 21:00 87 20 135/80 95 05/24/21 20:59 73 05/24/21 20:32 98.0 F 75 20 135/75 97 Intake and Output 05/24/21 05/25/21 05/25/21 22:59 06:59 14:59 Other: Weight 153.314 kg 153.314 kg Results CBC & Chem 7: 05/26/21 10:26 05/26/21 10:26 Labs: Abnormal Lab Results - Last 24 Hours (Table) 05/24/21 05/24/21 05/24/21 Range/Units 21:21 21:21 21:21 RDW 17.3 H (11.5-15.5) % PT 31.1 H (9.0-12.0) sec INR 3.2 H (<1.2) APTT 31.6 H (22.0-30.0) sec BUN 22 H (9-20) mg/dL Glucose 114 H (74-99) mg/dL POC Glucose (mg/dL) (75-99) mg/dL Plasma Lactic Acid Jarvis (0.7-2.0) mmol/L Procalcitonin (0.02-0.09) ng/mL 05/24/21 05/24/21 05/25/21 Range/Units 21:21 21:21 00:16 RDW (11.5-15.5) % PT (9.0-12.0) sec INR (<1.2) APTT (22.0-30.0) sec BUN (9-20) mg/dL Glucose (74-99) mg/dL POC Glucose (mg/dL) (75-99) mg/dL Plasma Lactic Acid Jarvis 2.9 H* 2.7 H* (0.7-2.0) mmol/L Procalcitonin 0.17 H (0.02-0.09) ng/mL 05/25/21 05/25/21 05/25/21 Range/Units 03:57 07:40 07:43 RDW (11.5-15.5) % PT (9.0-12.0) sec INR (<1.2) APTT (22.0-30.0) sec BUN (9-20) mg/dL Glucose (74-99) mg/dL POC Glucose (mg/dL) 194 H (75-99) mg/dL Plasma Lactic Acid Jarvis 2.4 H* 3.5 H* (0.7-2.0) mmol/L Procalcitonin (0.02-0.09) ng/mL 05/25/21 05/25/21 05/25/21 Range/Units 11:53 12:07 12:07 RDW (11.5-15.5) % PT 31.5 H (9.0-12.0) sec INR 3.3 H (<1.2) APTT (22.0-30.0) sec BUN (9-20) mg/dL Glucose (74-99) mg/dL POC Glucose (mg/dL) 220 H (75-99) mg/dL Plasma Lactic Acid Jarvis 3.5 H* (0.7-2.0) mmol/L Procalcitonin (0.02-0.09) ng/mL
[2021-05-26 16:45] LABS: Glucose,Whole Blood 160 mg/dL (75-99)
[2021-05-26] MEDS ORDERED: WARFARIN 2.5 MG TAB PO ONE (18:00)
[2021-05-26 20:34] LABS: Glucose,Whole Blood 131 mg/dL (75-99)
[2021-05-27] MEDS: ACETAMINOPHEN TAB 325 MG TAB PO PRN (04:21)
[2021-05-27] MEDS: LEVOTHYROXINE 50 MCG TAB PO SCH (06:16)
[2021-05-27 07:02] LABS: Glucose,Whole Blood 104 mg/dL (75-99)
[2021-05-27] MEDS: INSULIN ASPART (NovoLOG) 100 UNIT/ML VIAL SQ SCH ×4 (07:18→20:47)
[2021-05-27] MEDS: FUROSEMIDE 10 MG/ML 4 ML VIAL IV SCH ×2 (08:38→17:20)
[2021-05-27] MEDS: ATORVASTATIN 10 MG TAB PO SCH (08:39)
[2021-05-27] MEDS: allopurinoL 300 MG TAB PO SCH (08:39)
[2021-05-27] MEDS: METOPROLOL TARTRATE 25 MG TAB PO SCH ×2 (08:39→20:46)
[2021-05-27] MEDS: DOFETILIDE 500 MCG CAP PO SCH ×2 (08:39→20:46)
[2021-05-27] MEDS: MULTIVITAMINS, THERA 1 EACH TAB PO SCH (08:39)
[2021-05-27] MEDS: PANTOPRAZOLE 40 MG TABLET PO SCH (08:39)
[2021-05-27] MEDS: MAGNESIUM OXIDE 400 MG TAB PO SCH (08:39)
[2021-05-27] MEDS: BUDESONIDE 0.5 MG/2 ML NEBU INHALATION SCH ×2 (08:51→20:11)
[2021-05-27] MEDS: IPRATROPIUM-ALBUTEROL 3 ML NEB INHALATION SCH ×4 (08:51→20:11)
--- NOTE | 2021-05-27 09:55 | P.PN ---
Subjective Progress Note Date: 05/26/21 Tristian Galloway is a 75-year-old male patient of Dr. Sampson who presented with ongoing shortness of breath and weight gain. Patient reports he's had increasing shortness of breath over the past month with episodes of falling and significant weight gain. Patient is maintained on home O2 for chronic hypoxic respiratory failure but states that the shortness of breath has been increasing. Patient does have a past medical history of A. fib in which she is maintained on Coumadin, COPD, diabetes mellitus, hyperlipidemia and pacemaker. Chest x-ray completed in ER showing cardiomegaly posterior pleural effusion. BNP 608. Troponin was normal lactic acid elevated at 2.9 COVID-19 was negative. Patient has been started on updraft breathing treatments IV Lasix and sublingual insulin for cellulitis. Pulmonary, cardiology and infectious disease services have been consulted. This time patient is resting currently in bed on BiPAP machine. Patient does still complain of some shortness breath. Patient denies any chest pain. Patient denies nausea vomiting or diarrhea. Patient denies any urinary burning or frequency On 05/26/2021 patient was seen and examined on his oriented 3 in no apparent distress. Patient maintained on IV Lasix and IV antibiotics for cellulitis. Pulmonary cardiology and infectious disease service following this time patient reports improvement. Patient denies chest pain or shortness breath. Patient denies nausea vomiting or diarrhea. Patient denies any urinary burning or frequency Objective - Vital Signs Vital signs: Vital Signs Temp 97.6 F 05/26/21 05:55 Pulse 80 05/26/21 07:22 Resp 18 05/26/21 05:55 BP 115/71 05/26/21 05:55 Pulse Ox 95 05/26/21 05:55 Intake & Output 05/25/21 05/26/21 05/26/21 18:59 06:59 18:59 Intake Total 170 Output Total 400 Balance -400 170 Weight 153.314 kg 166.5 kg Intake: Oral 170 Output: Urine 400 Other: Voiding Method Bedpan # Voids 2 # Bowel Movements 1 - Exam Head normocephalic and atraumatic Neck supple, no JVD no goiter Lungs clear to auscultation bilaterally no wheezing or crackles Heart regular rate and rhythm S1-S2, no rub or gallop Abdomen is soft nontender nondistended positive bowel sounds no hepatosplenomegaly Extremities +3 lower extremity edema with erythema Neuro alert and orientated x 3, no gross neurological deficit - Labs CBC & Chem 7: 05/26/21 10:26 05/26/21 10:26 Labs: Abnormal Lab Results - Last 24 Hours (Table) 05/24/21 05/25/21 05/25/21 Range/Units 21:21 03:57 11:53 MCV (80.0-100.0) fL RDW (11.5-15.5) % Plt Count (150-450) k/uL Lymphocytes # (1.0-4.8) k/uL PT (9.0-12.0) sec INR (<1.2) Carbon Dioxide 13.6 L (21.6-31.8) mmol/L Anion Gap 22.00 H (4.00-12.00) mmol/L Est GFR (CKD-EPI)AfAm 57.5 L (60.0-200.0) Est GFR (CKD-EPI)NonAf 49.6 L (60.0-200.0) Glucose 160 H (70-110) mg/dL POC Glucose (mg/dL) 220 H (75-99) mg/dL Hemoglobin A1c (4.0-6.0) % Plasma Lactic Acid Jarvis (0.7-2.0) mmol/L AST 40 H (14-35) U/L Albumin/Globulin Ratio 1.15 L (1.60-3.17) g/dL Procalcitonin 0.17 H (0.02-0.09) ng/mL 05/25/21 05/25/21 05/25/21 Range/Units 12:07 12:07 12:07 MCV 102.7 H (80.0-100.0) fL RDW 17.3 H (11.5-15.5) % Plt Count 137 L (150-450) k/uL Lymphocytes # 0.5 L (1.0-4.8) k/uL PT 31.5 H (9.0-12.0) sec INR 3.3 H (<1.2) Carbon Dioxide (21.6-31.8) mmol/L Anion Gap (4.00-12.00) mmol/L Est GFR (CKD-EPI)AfAm (60.0-200.0) Est GFR (CKD-EPI)NonAf (60.0-200.0) Glucose (70-110) mg/dL POC Glucose (mg/dL) (75-99) mg/dL Hemoglobin A1c 6.5 H (4.0-6.0) % Plasma Lactic Acid Jarvis (0.7-2.0) mmol/L AST (14-35) U/L Albumin/Globulin Ratio (1.60-3.17) g/dL Procalcitonin (0.02-0.09) ng/mL 05/25/21 05/25/21 05/25/21 Range/Units 12:07 15:24 17:23 MCV (80.0-100.0) fL RDW (11.5-15.5) % Plt Count (150-450) k/uL Lymphocytes # (1.0-4.8) k/uL PT (9.0-12.0) sec INR (<1.2) Carbon Dioxide (21.6-31.8) mmol/L Anion Gap (4.00-12.00) mmol/L Est GFR (CKD-EPI)AfAm (60.0-200.0) Est GFR (CKD-EPI)NonAf (60.0-200.0) Glucose (70-110) mg/dL POC Glucose (mg/dL) 210 H (75-99) mg/dL Hemoglobin A1c (4.0-6.0) % Plasma Lactic Acid Jarvis 3.5 H* 2.4 H* (0.7-2.0) mmol/L AST (14-35) U/L Albumin/Globulin Ratio (1.60-3.17) g/dL Procalcitonin (0.02-0.09) ng/mL 05/25/21 05/25/21 05/25/21 Range/Units 18:05 20:35 21:47 MCV (80.0-100.0) fL RDW (11.5-15.5) % Plt Count (150-450) k/uL Lymphocytes # (1.0-4.8) k/uL PT (9.0-12.0) sec INR (<1.2) Carbon Dioxide (21.6-31.8) mmol/L Anion Gap (4.00-12.00) mmol/L Est GFR (CKD-EPI)AfAm (60.0-200.0) Est GFR (CKD-EPI)NonAf (60.0-200.0) Glucose (70-110) mg/dL POC Glucose (mg/dL) 221 H (75-99) mg/dL Hemoglobin A1c (4.0-6.0) % Plasma Lactic Acid Jarvis 3.2 H* 2.4 H* (0.7-2.0) mmol/L AST (14-35) U/L Albumin/Globulin Ratio (1.60-3.17) g/dL Procalcitonin (0.02-0.09) ng/mL 05/26/21 Range/Units 07:15 MCV (80.0-100.0) fL RDW (11.5-15.5) % Plt Count (150-450) k/uL Lymphocytes # (1.0-4.8) k/uL PT (9.0-12.0) sec INR (<1.2) Carbon Dioxide (21.6-31.8) mmol/L Anion Gap (4.00-12.00) mmol/L Est GFR (CKD-EPI)AfAm (60.0-200.0) Est GFR (CKD-EPI)NonAf (60.0-200.0) Glucose (70-110) mg/dL POC Glucose (mg/dL) 149 H (75-99) mg/dL Hemoglobin A1c (4.0-6.0) % Plasma Lactic Acid Jarvis (0.7-2.0) mmol/L AST (14-35) U/L Albumin/Globulin Ratio (1.60-3.17) g/dL Procalcitonin (0.02-0.09) ng/mL Assessment and Plan Assessment: 1. Dyspnea secondary to CHF and COPD exacerbation 2. History of obstructive sleep apnea 3. Chronic respiratory failure maintained on home O2 4. Bilateral lower extremity cellulitis and edema. Will order venous Doppler to rule out DVT. Patient started on IV antibiotic infectious disease service is consulted 5. Elevated lactic acid. Patient started on antibiotic for lower infection Sunday cellulitis. Infectious the service consulted UA and blood culture ordered 6. Status post pacemaker insertion 7. Chronic atrial fibrillation maintained on Coumadin 8. History of diabetes mellitus type 2 thank scale insulin coverage added hemoglobin A1c 9. History of cardiomyopathy 10. History of gout 11. Hypothyroidism DVT prophylaxis Coumadin. GI prophylaxis Protonix Pulmonary, cardiology and infectious disease service is consulted 2-D echo ordered IV antibiotic for cellulitis Blood culture and UA ordered Venous Doppler ordered Repeat labs ordered
--- NOTE | 2021-05-27 09:58 | P.PN ---
Subjective Progress Note Date: 05/27/21 Tristian Galloway is a 75-year-old male patient of Dr. Sampson who presented with ongoing shortness of breath and weight gain. Patient reports he's had increasing shortness of breath over the past month with episodes of falling and significant weight gain. Patient is maintained on home O2 for chronic hypoxic respiratory failure but states that the shortness of breath has been increasing. Patient does have a past medical history of A. fib in which she is maintained on Coumadin, COPD, diabetes mellitus, hyperlipidemia and pacemaker. Chest x-ray completed in ER showing cardiomegaly posterior pleural effusion. BNP 608. Troponin was normal lactic acid elevated at 2.9 COVID-19 was negative. Patient has been started on updraft breathing treatments IV Lasix and sublingual insulin for cellulitis. Pulmonary, cardiology and infectious disease services have been consulted. This time patient is resting currently in bed on BiPAP machine. Patient does still complain of some shortness breath. Patient denies any chest pain. Patient denies nausea vomiting or diarrhea. Patient denies any urinary burning or frequency On 05/26/2021 patient was seen and examined on his oriented 3 in no apparent distress. Patient maintained on IV Lasix and IV antibiotics for cellulitis. Pulmonary cardiology and infectious disease service following this time patient reports improvement. Patient denies chest pain or shortness breath. Patient denies nausea vomiting or diarrhea. Patient denies any urinary burning or frequency On 05/27/2021 patient alert and oriented 3. Patient reports significant edema and pain to left upper extremity will order venous Doppler to rule out DVT likely secondary from infiltration of IV. Patient remains on IV Lasix and capsule for cellulitis. Patient currently on 15 L high flow nasal cannula. Pulmonary cardiology and infectious disease services following Objective - Vital Signs Vital signs: Vital Signs Temp 97.1 F L 05/27/21 07:21 Pulse 71 05/27/21 07:21 Resp 20 05/27/21 07:21 BP 103/69 05/27/21 07:21 Pulse Ox 96 05/27/21 07:21 Intake & Output 05/26/21 05/27/21 05/27/21 18:59 06:59 18:59 Intake Total 100 1169 Output Total 600 950 350 Balance -500 219 -350 Weight 156.3 kg Intake: Intake, IV Titration 50 Amount ceFAZolin 2 gm In Sodium 50 Chloride 0.9% 50 ml @ 100 mls/hr IVPB Q8HR [facility] Rx# :[id number] Oral 100 1119 Output: Urine 600 950 350 Other: Voiding Method Bedside Commode # Bowel Movements 1 - Exam Head normocephalic and atraumatic Neck supple, no JVD no goiter Lungs clear to auscultation bilaterally no wheezing or crackles Heart regular rate and rhythm S1-S2, no rub or gallop Abdomen is soft nontender nondistended positive bowel sounds no hepatosplenomegaly Extremities +3 lower extremity edema with erythema Neuro alert and orientated x 3, no gross neurological deficit - Labs CBC & Chem 7: 05/26/21 10:26 05/26/21 10:26 Labs: Abnormal Lab Results - Last 24 Hours (Table) 05/26/21 05/26/21 05/26/21 Range/Units 10:26 10:26 10:26 WBC 14.1 H (3.8-10.6) k/uL MCV 100.7 H (80.0-100.0) fL RDW 17.9 H (11.5-15.5) % Neutrophils # 12.4 H (1.3-7.7) k/uL Lymphocytes # 0.7 L (1.0-4.8) k/uL PT 31.8 H (9.0-12.0) sec INR 3.3 H (<1.2) BUN 34 H (9-20) mg/dL Glucose 180 H (74-99) mg/dL POC Glucose (mg/dL) (75-99) mg/dL 05/26/21 05/26/21 05/26/21 Range/Units 12:29 16:43 20:33 WBC (3.8-10.6) k/uL MCV (80.0-100.0) fL RDW (11.5-15.5) % Neutrophils # (1.3-7.7) k/uL Lymphocytes # (1.0-4.8) k/uL PT (9.0-12.0) sec INR (<1.2) BUN (9-20) mg/dL Glucose (74-99) mg/dL POC Glucose (mg/dL) 150 H 160 H 131 H (75-99) mg/dL 05/27/21 Range/Units 07:00 WBC (3.8-10.6) k/uL MCV (80.0-100.0) fL RDW (11.5-15.5) % Neutrophils # (1.3-7.7) k/uL Lymphocytes # (1.0-4.8) k/uL PT (9.0-12.0) sec INR (<1.2) BUN (9-20) mg/dL Glucose (74-99) mg/dL POC Glucose (mg/dL) 104 H (75-99) mg/dL Microbiology - Last 24 Hours (Table) 05/25/21 12:44 Blood Culture - Preliminary Blood No Growth after 24 hours Assessment and Plan Assessment: 1. Dyspnea secondary to CHF and COPD exacerbation 2. History of obstructive sleep apnea 3. Chronic respiratory failure maintained on home O2 4. Bilateral lower extremity cellulitis and edema. Patient started on IV antibiotic infectious disease service is consulted 5. Elevated lactic acid. Patient started on antibiotic for lower infection for cellulitis. Infectious the service consulted UA and blood culture ordered 6. Status post pacemaker insertion 7. Chronic atrial fibrillation maintained on Coumadin 8. History of diabetes mellitus type 2 thank scale insulin coverage added hemoglobin A1c 9. History of cardiomyopathy 10. History of gout 11. Hypothyroidism 12. Increased swelling to left upper extremity will order venous Doppler to rule out DVT DVT prophylaxis Coumadin. GI prophylaxis Protonix Pulmonary, cardiology and infectious disease services following IV antibiotic for cellulitis Blood culture and UA ordered Repeat labs ordered
[2021-05-27 10:18] LABS: Anisocytosis Slight; Basophils % (A) 0 %; Eosinophils % (A) 0 %; HCT 48.7 % (39.0-53.0); HGB 15.1 gm/dL (13.0-17.5); Hypochromasia Slight; Lymphocytes # (A) 1.5 k/uL (1.0-4.8); Lymphocytes % (A) 11 %; MCH 31.6 pg (25.0-35.0); MCHC 30.9 g/dL (31.0-37.0); MCV 102.3 fL (80.0-100.0); Macrocytosis Moderate; Mean Platelet Volume 7.8; Monocytes # (A) 0.9 k/uL (0-1.0); Monocytes % (A) 7 %; Neutrophils # (A) 10.4 k/uL (1.3-7.7); Neutrophils % (A) 80 %; Platelet Count 171 k/uL (150-450); RBC 4.76 m/uL (4.30-5.90); RDW 17.2 % (11.5-15.5); WBC 13.1 k/uL (3.8-10.6)
[2021-05-27 10:23] LABS: ALT 18 U/L (4-49); AST 44 U/L (17-59); African American GFR (CKD) 73 (>60 ml/min/1.73 sqM); Albumin 3.8 g/dL (3.5-5.0); Albumin/Globulin Ratio 1.1; Alkaline Phosphatase 87 U/L (38-126); Anion Gap 9 mmol/L; Blood Urea Nitrogen 41 mg/dL (9-20); Calcium 9.1 mg/dL (8.4-10.2); Carbon Dioxide 28 mmol/L (22-30); Chloride 102 mmol/L (98-107); Globulin 3.5 g/dL; Glucose 123 mg/dL (74-99); Magnesium 2.3 mg/dL (1.6-2.3); Non-African American GFR(CKD) 63 (>60 ml/min/1.73 sqM); Potassium 5.1 mmol/L (3.5-5.1); Sodium 139 mmol/L (137-145); Total Bilirubin 0.9 mg/dL (0.2-1.3); Total Protein 7.3 g/dL (6.3-8.2)
[2021-05-27 10:49] LABS: INR 3.1 (<1.2); Prothrombin Time 30.2 sec (9.0-12.0)
[2021-05-27 12:05] LABS: Glucose,Whole Blood 112 mg/dL (75-99)
--- NOTE | 2021-05-27 12:59 | P.PN ---
Subjective This is a pleasant 75-year-old male past medical history significant for chronic persistent atrial fibrillation, sick sinus syndrome status post dual chamber permanent pacemaker 2012, hypertension, obesity, type 2 diabetes, pulmonary hypertension, left ventricular hypertrophy, venous insufficiency, lymphedema, former tobacco use 20+ years ago. He follows in the office with Dr. Witt. We have been asked to see in consultation for congestive heart failure. Patient presents emergency department with complaints of shortness of breath, 29lb weig ht gain over 1 month and worsening lower extremity edema. Echocardiogram revealed an EF of 6065 percent, RV is mildly enlarged, moderate tricuspid regurgitation, moderate pulmonary hypertension with RVSP of 46 mmHg. Patient seen and examined at bedside, his symptoms of shortness of breath have not improved from yesterday. He is requiring increased oxygen requirements. Increase swelling to his left hand/arm, he is undergoing ultrasound of his left upper extremity. Sodium 139, potassium 5.1, BUN 41, serum creatinine 1.15, magnesium 2.3, WBC 13.1, platelets 171, hemoglobin 15, INR 3.1 Voided 1.5L urine output over the past 24 hours. Patient is currently maintained on antibiotics for cellulitis, IV Lasix 40 mg twice a day, atorvastatin 10 mg daily, Tikosyn 500mcg BID, magnesium oxide, metoprolol tartrate 25 mg twice a day, Coumadin. PHYSICAL EXAMINATION Blood pressure blood pressure 103/69, heart rate 71, afebrile, oxygen saturation is 96% on 15 L high flow nasal cannula CONSTITUTIONAL: No acute distress. HEENT: Neck Supple. mild JVD. CHEST EXAMINATION: Lungs are bilateral rhonci to auscultation. No chest wall tenderness is noted on palpation or with deep breathing. HEART EXAMINATION: Regular rate and rhythm. S1, S2 heard. Systolic ejection murmur noted. ABDOMEN: Soft, nontender. Positive bowel sounds. EXTREMITIES: 2+ peripheral pulses, 3+ bilateral lower extremity edema, left lower extremity redness NEUROLOGIC EXAMINATION: Patient is awake, alert and oriented x3. ASSESSMENT Acute on chronic heart failure, likely diastolic, echocardiogram pending Pulmonary hypertension Acute hypoxic respiratory failure Chronic persistent atrial fibrillation [id number] score 4 on coumadin Sick sinus syndrome status post dual chamber permanent pacemaker 2012 Hypertension Obesity Type 2 diabetes PLAN Increase IV Lasix 40mg Q8hr Continue statin, metoprolol tartrate, and coumadin Monitor I/Os, daily weights Monitor renal function and daily electrolytes Daily INRs Further recommendations based on clinical course Nurse Practitioner note has been reviewed, I agree with a documented findings and plan of care. Patient was seen and examined. Objective - Vital Signs Vital signs: Vital Signs Temp 97.1 F L 05/27/21 07:21 Pulse 71 05/27/21 07:21 Resp 20 05/27/21 07:21 BP 103/69 05/27/21 07:21 Pulse Ox 96 05/27/21 07:21 Intake & Output 05/26/21 05/27/21 05/27/21 18:59 06:59 18:59 Intake Total 100 1169 Output Total 600 950 350 Balance -500 219 -350 Weight 156.3 kg Intake: Intake, IV Titration 50 Amount ceFAZolin 2 gm In Sodium 50 Chloride 0.9% 50 ml @ 100 mls/hr IVPB Q8HR [facility] Rx# :[id number] Oral 100 1119 Output: Urine 600 950 350 Other: Voiding Method Bedside Commode # Bowel Movements 1 - Labs CBC & Chem 7: 05/27/21 09:47 05/27/21 09:47 Labs: Abnormal Lab Results - Last 24 Hours (Table) 05/26/21 05/26/21 05/26/21 Range/Units 10:26 10:26 10:26 WBC 14.1 H (3.8-10.6) k/uL MCV 100.7 H (80.0-100.0) fL MCHC (31.0-37.0) g/dL RDW 17.9 H (11.5-15.5) % Neutrophils # 12.4 H (1.3-7.7) k/uL Lymphocytes # 0.7 L (1.0-4.8) k/uL PT 31.8 H (9.0-12.0) sec INR 3.3 H (<1.2) BUN 34 H (9-20) mg/dL Glucose 180 H (74-99) mg/dL POC Glucose (mg/dL) (75-99) mg/dL 05/26/21 05/26/21 05/26/21 Range/Units 12:29 16:43 20:33 WBC (3.8-10.6) k/uL MCV (80.0-100.0) fL MCHC (31.0-37.0) g/dL RDW (11.5-15.5) % Neutrophils # (1.3-7.7) k/uL Lymphocytes # (1.0-4.8) k/uL PT (9.0-12.0) sec INR (<1.2) BUN (9-20) mg/dL Glucose (74-99) mg/dL POC Glucose (mg/dL) 150 H 160 H 131 H (75-99) mg/dL 05/27/21 05/27/21 05/27/21 Range/Units 07:00 09:47 09:47 WBC 13.1 H (3.8-10.6) k/uL MCV 102.3 H (80.0-100.0) fL MCHC 30.9 L (31.0-37.0) g/dL RDW 17.2 H (11.5-15.5) % Neutrophils # 10.4 H (1.3-7.7) k/uL Lymphocytes # (1.0-4.8) k/uL PT (9.0-12.0) sec INR (<1.2) BUN 41 H (9-20) mg/dL Glucose 123 H (74-99) mg/dL POC Glucose (mg/dL) 104 H (75-99) mg/dL 05/27/21 Range/Units 09:47 WBC (3.8-10.6) k/uL MCV (80.0-100.0) fL MCHC (31.0-37.0) g/dL RDW (11.5-15.5) % Neutrophils # (1.3-7.7) k/uL Lymphocytes # (1.0-4.8) k/uL PT 30.2 H (9.0-12.0) sec INR 3.1 H (<1.2) BUN (9-20) mg/dL Glucose (74-99) mg/dL POC Glucose (mg/dL) (75-99) mg/dL Microbiology - Last 24 Hours (Table) 05/25/21 12:44 Blood Culture - Preliminary Blood No Growth after 24 hours
--- NOTE | 2021-05-27 14:15 | P.PN ---
Subjective Progress Note Date: 05/27/21 This is a 75-year-old male that we saw in the emergency department, room 6. The patient came into the emergency room, with weight gain, lower extremity edema with cellulitis, falling at home, and shortness of breath. The patient does have a history of chronic hypoxemic respiratory failure and does use oxygen at 3 L/m, at home. He also has sleep apnea, and for that he uses CPAP at home. His primary care provider is Dr. Sampson. 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 The patient has a history of atrial fibrillation, a questionable history of COPD even though he wasn't a smoker, diabetes mellitus, hyperlipidemia, and sleep apnea syndrome. He also suffers some arthritis, gout, cardiomyopathy, and has a previous history of methicillin-resistant staph aureus infection, and also infection with vancomycin-resistant enterococci. He is status post pacemaker insertion. Anyway, the patient states that at home, he's been feeling very weak and is been falling. He's gained quite a bit of weight has significant lower extremity edema. White count 9.4, hemoglobin 15.1, hematocrit 47.2, and platelet count 159,000. PTT 31.1, INR 3.2, and PTT 31.6. Sodium 137, potassium 4, chlorides 101, CO2 24, anion gap 12, BUN 22, creatinine 1.21. Lactic acid was 2.9 and repeat was 3.5. Troponin was normal. N-terminal proBNP was 608. Testing for medina virus was negative. Chest x-ray showed evidence of cardiomegaly, and a posterior pleural effusion. The patient is seen today 05/26/2021 in follow-up on the observation unit. He is currently sitting up in bed. Awake and alert in no acute distress. He is currently on 15 L high flow nasal cannula maintaining O2 saturations in the 90s. He did wear BiPAP 12/6 and 50% FiO2 overnight. Chest x-ray reveals cardiomegaly. A right basilar infiltrate and small left pleural effusion. Venous Dopplers of the lower extremities were negative for DVT. He is currently on a cefazolin for cellulitis of the lower extremities. White count 14.1. Hemoglobin 14.9. Platelets 204. INR 3.3. Sodium 139. Potassium 4.8. Creatinine 1.14. He remains on DuoNeb inhalations, Pulmicort inhalations, Lasix 40 mg IV every 12 hours. He is on dofetilide. Anticoagulated with warfarin. The patient is seen today 05/27/2021 in follow-up on the regular medical floor. He is currently resting in bed. Awake and alert in no acute distress. He has required 15 L high flow nasal cannula to maintain O2 saturations in the 90s. He has left upper extremity edema status post Doppler results of which are pending. He has some ongoing cough and congestion and small amount of productive sputum. Blood cultures reveal no growth to date. White count 13.1. Hemoglobin 15.1. INR 3.1. Sodium 139. Potassium 5.1. Creatinine 1.15. AST 44. ALT 18. He is continued on DuoNeb inhalations, Pulmicort inhalations. He is on IV diuretics. Antibiotics in the form of cefazolin. Echocardiogram revealed preserved left ventricular systolic function with ejection fraction 66 5%. There is moderate pulmonary hypertension. Objective - Vital Signs Vital signs: Vital Signs Temp 97.1 F L 05/27/21 07:21 Pulse 76 05/27/21 11:52 Resp 20 05/27/21 07:21 BP 103/69 05/27/21 07:21 Pulse Ox 96 05/27/21 07:21 Intake & Output 05/26/21 05/27/21 05/27/21 18:59 06:59 18:59 Intake Total 100 1169 Output Total 600 950 350 Balance -500 219 -350 Weight 156.3 kg Intake: Intake, IV Titration 50 Amount ceFAZolin 2 gm In Sodium 50 Chloride 0.9% 50 ml @ 100 mls/hr IVPB Q8HR [facility] Rx# :[id number] Oral 100 1119 Output: Urine 600 950 350 Other: Voiding Method Bedside Commode # Bowel Movements 1 - Exam Pleasant 75-year-old gentleman, currently on 15 L high flow nasal cannula. No acute distress, oriented 3. Mild tachypnea, alternating with BiPAP at 12/6 and 50%. HEENT examination is grossly unremarkable. Neck supple. Full range of motion. No adenopathy thyromegaly or neck vein distention. Cardiovascular examination reveals regular rhythm rate. S1-S2 normal. No S3 or S4. No discernible murmur noted. Heart sounds are distant. Lungs reveal no rhonchi. No wheezes. Minimal basilar crackles noted. Breath sounds equal bilaterally. Abdomen soft bowel sounds are heard. No masses or tenderness. Extremities are edematous, but diffuse bilateral lower extremity cellulitis, pitting, and chronic venous stasis changes. Skin is without rash or lesion. Neurologic examination is brief but nonfocal. - Labs CBC & Chem 7: 05/27/21 09:47 05/27/21 09:47 Labs: Abnormal Lab Results - Last 24 Hours (Table) 05/26/21 05/26/21 05/27/21 Range/Units 16:43 20:33 07:00 WBC (3.8-10.6) k/uL MCV (80.0-100.0) fL MCHC (31.0-37.0) g/dL RDW (11.5-15.5) % Neutrophils # (1.3-7.7) k/uL PT (9.0-12.0) sec INR (<1.2) BUN (9-20) mg/dL Glucose (74-99) mg/dL POC Glucose (mg/dL) 160 H 131 H 104 H (75-99) mg/dL 05/27/21 05/27/21 05/27/21 Range/Units 09:47 09:47 09:47 WBC 13.1 H (3.8-10.6) k/uL MCV 102.3 H (80.0-100.0) fL MCHC 30.9 L (31.0-37.0) g/dL RDW 17.2 H (11.5-15.5) % Neutrophils # 10.4 H (1.3-7.7) k/uL PT 30.2 H (9.0-12.0) sec INR 3.1 H (<1.2) BUN 41 H (9-20) mg/dL Glucose 123 H (74-99) mg/dL POC Glucose (mg/dL) (75-99) mg/dL 05/27/21 Range/Units 12:03 WBC (3.8-10.6) k/uL MCV (80.0-100.0) fL MCHC (31.0-37.0) g/dL RDW (11.5-15.5) % Neutrophils # (1.3-7.7) k/uL PT (9.0-12.0) sec INR (<1.2) BUN (9-20) mg/dL Glucose (74-99) mg/dL POC Glucose (mg/dL) 112 H (75-99) mg/dL Microbiology - Last 24 Hours (Table) 05/25/21 12:44 Blood Culture - Preliminary Blood No Growth after 24 hours Assessment and Plan Assessment: 1 Acute hypoxemic respiratory failure secondary to an acute cor pulmonale, with right-sided heart failure, pulmonary hypertension, likely secondary to sleep apnea syndrome, and possible Pickwickian syndrome. 2 Doubt significant chronic lung disease, as the patient is a lifelong nonsmoker. 3 Morbid obesity. 4 History of obstructive sleep apnea syndrome, on home CPAP. 5 History of chronic atrial fibrillation. Anticoagulated with warfarin 6 Status post pacemaker insertion. 7 History of diabetes mellitus. 8 History of hyperlipidemia. 9 History of cardiomyopathy. 10 History of arthritis. 11 History of gout. 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 Plan: The patient was seen and evaluated by Dr. Marcos Continues to require 15 L high flow nasal cannula We will obtain a CT angiogram to rule out pulmonary embolism He is therapeutic on his warfarin Doppler of the left upper extremity pending Titrate down the FiO2 as tolerated Antibiotics for cellulitis per ID service We'll continue to follow I, the cosigning physician, performed a history & physical examination of the patient. Lungs sounds crackles in bilateral bases. Maintaining good O2 saturations in the 90s on 15 L high flow nasal cannula alternating with BiPAP. I discussed the assessment and plan of care with my nurse practitioner, Mary Pedro. I attest to the above note as dictated by her.
--- NOTE | 2021-05-27 15:33 | US ---
EXAMINATION TYPE: US venous doppler duplex UE LT DATE OF EXAM: 05/27/2021 COMPARISON: NONE CLINICAL HISTORY: Increased edema. SIDE PERFORMED: Left Grayscale, color doppler, spectral doppler imaging performed of the deep veins of the left upper extr emity. Left Arm: There is normal flow, compressibility and vascular waveforms. Visualized portions of the le ft internal jugular vein, subclavian vein, axillary vein, cephalic vein, basilic vein, brachial vein, radial and ulnar veins are patent. Subcutaneous edema changes are noted. IMPRESSION: No evident deep venous thrombosis within the left upper extremity.
--- NOTE | 2021-05-27 16:32 | CT ---
EXAMINATION TYPE: CT angio chest DATE OF EXAM: 05/27/2021 3:46 PM COMPARISON: 05/01/2013 HISTORY: Shortness of breath CT DLP: 1434 mGycm Automated exposure control for dose reduction was used. CONTRAST: CTA scan of the thorax is performed with IV Contrast, patient injected with 100 mL of Isovue 370, pul monary embolism protocol. . FINDINGS: LUNGS: Diffuse interstitial pattern with the bilateral pleural effusions greater on the left. No pneu mothorax. No consolidative pneumonia. Basilar bronchiectasis noted. MEDIASTINUM: There is a suggestion of filling defect involving the left upper lobe branch artery on a xial image 63 and left lower lobe branch on axial image 96. Heart size is prominent. There is a cardi ac device with leads. Coronary artery calcification. Aorta of normal caliber. OTHER: There is evidence of ascites. Hypertrophic and degenerative changes of the spine. Subcutaneou s edema noted. IMPRESSION: 1. Findings suspicious for dose pulmonary embolism within the left upper lobe and right lower lobe se condary to distal branches as noted above. Correlate clinically. Correlate for CHF with a left-sided consolidation and moderate-sized pleural effusion. 2. Small amount of ascites 3. Coronary artery calcification
[2021-05-27 16:44] LABS: Glucose,Whole Blood 144 mg/dL (75-99)
--- NOTE | 2021-05-27 17:32 | PN ---
PROGRESS NOTE DATE OF SERVICE: 05/27/2021 REASON FOR FOLLOWUP: Bilateral lower extremity cellulitis. INTERVAL HISTORY: The patient is afebrile. Still complaining of shortness of breath and significant weight gain. The patient denies having any chest pain. No significant cough or sputum production. No abdominal pain, no diarrhea. PHYSICAL EXAMINATION: Blood pressure is 106/69, pulse of 71, temperature 97.1. He is ( ) high-flow oxygen. General description is an elderly male up in the chair in no distress. Respiratory system: Unlabored breathing, decreased intensity breath sounds. No wheeze. Heart S1, S2. Regular rate and rhythm. Abdomen soft, no tenderness. Legs did have some swelling and redness, improved. LABS: Hemoglobin ( ), white count 15.1, creatinine 1.15. DIAGNOSTIC IMPRESSION AND PLAN: Patient with admission to the hospital with increasing shortness of breath. This patient did have evidence of fluid overload with some erythema to the legs and concern for possible cellulitis on cefazolin to continue along with diuretics and continue supportive care. MMODL / IJN: [id number] /
[2021-05-27] MEDS ORDERED: WARFARIN 2.5 MG TAB PO ONE (18:00)
[2021-05-27 20:17] LABS: Glucose,Whole Blood 171 mg/dL (75-99)
[2021-05-28] MEDS: FUROSEMIDE 10 MG/ML 4 ML VIAL IV SCH ×3 (00:11→17:51)
[2021-05-28] MEDS: LEVOTHYROXINE 50 MCG TAB PO SCH (06:27)
[2021-05-28 06:54] LABS: Glucose,Whole Blood 127 mg/dL (75-99)
[2021-05-28] MEDS: INSULIN ASPART (NovoLOG) 100 UNIT/ML VIAL SQ SCH ×4 (07:56→20:50)
[2021-05-28] MEDS: ATORVASTATIN 10 MG TAB PO SCH (08:11)
[2021-05-28] MEDS: MULTIVITAMINS, THERA 1 EACH TAB PO SCH (08:11)
[2021-05-28] MEDS: MAGNESIUM OXIDE 400 MG TAB PO SCH (08:11)
[2021-05-28] MEDS: DOFETILIDE 500 MCG CAP PO SCH ×2 (08:11→20:51)
[2021-05-28] MEDS: allopurinoL 300 MG TAB PO SCH (08:11)
[2021-05-28] MEDS: PANTOPRAZOLE 40 MG TABLET PO SCH (08:11)
[2021-05-28] MEDS: METOPROLOL TARTRATE 25 MG TAB PO SCH ×2 (08:11→20:51)
[2021-05-28] MEDS: BUDESONIDE 0.5 MG/2 ML NEBU INHALATION SCH ×2 (08:53→21:03)
[2021-05-28] MEDS: IPRATROPIUM-ALBUTEROL 3 ML NEB INHALATION SCH ×4 (08:53→21:03)
[2021-05-28 09:00] LABS: Anisocytosis Slight; Basophils % (A) 0 %; Eosinophils # (A) 0.2 k/uL (0-0.7); Eosinophils % (A) 2 %; HCT 47.3 % (39.0-53.0); HGB 14.7 gm/dL (13.0-17.5); Hypochromasia Slight; Lymphocytes # (A) 1.5 k/uL (1.0-4.8); Lymphocytes % (A) 14 %; MCH 31.6 pg (25.0-35.0); MCHC 31.1 g/dL (31.0-37.0); MCV 101.4 fL (80.0-100.0); Macrocytosis Moderate; Monocytes # (A) 1.1 k/uL (0-1.0); Monocytes % (A) 10 %; Neutrophils # (A) 7.3 k/uL (1.3-7.7); Neutrophils % (A) 71 %; Platelet Count 166 k/uL (150-450); RBC 4.67 m/uL (4.30-5.90); RDW 17.1 % (11.5-15.5); WBC 10.3 k/uL (3.8-10.6)
[2021-05-28] MEDS: ACETAMINOPHEN TAB 325 MG TAB PO PRN (09:07)
[2021-05-28 09:08] LABS: INR 2.5 (<1.2); Prothrombin Time 24.3 sec (9.0-12.0)
[2021-05-28 09:40] LABS: ALT 14 U/L (4-49); AST 40 U/L (17-59); African American GFR (CKD) 88 (>60 ml/min/1.73 sqM); Albumin 3.6 g/dL (3.5-5.0); Albumin/Globulin Ratio 1.1; Alkaline Phosphatase 103 U/L (38-126); Anion Gap 8 mmol/L; Blood Urea Nitrogen 39 mg/dL (9-20); Calcium 8.8 mg/dL (8.4-10.2); Carbon Dioxide 25 mmol/L (22-30); Chloride 102 mmol/L (98-107); Globulin 3.2 g/dL; Glucose 194 mg/dL (74-99); Non-African American GFR(CKD) 76 (>60 ml/min/1.73 sqM); Potassium 4.2 mmol/L (3.5-5.1); Sodium 135 mmol/L (137-145); Total Bilirubin 1.4 mg/dL (0.2-1.3); Total Protein 6.8 g/dL (6.3-8.2)
[2021-05-28 11:47] LABS: Glucose,Whole Blood 234 mg/dL (75-99)
--- NOTE | 2021-05-28 13:45 | P.PN ---
Subjective Progress Note Date: 05/28/21 Tristian Galloway is a 75-year-old male patient of Dr. Sampson who presented with ongoing shortness of breath and weight gain. Patient reports he's had increasing shortness of breath over the past month with episodes of falling and significant weight gain. Patient is maintained on home O2 for chronic hypoxic respiratory failure but states that the shortness of breath has been increasing. Patient does have a past medical history of A. fib in which she is maintained on Coumadin, COPD, diabetes mellitus, hyperlipidemia and pacemaker. Chest x-ray completed in ER showing cardiomegaly posterior pleural effusion. BNP 608. Troponin was normal lactic acid elevated at 2.9 COVID-19 was negative. Patient has been started on updraft breathing treatments IV Lasix and sublingual insulin for cellulitis. Pulmonary, cardiology and infectious disease services have been consulted. This time patient is resting currently in bed on BiPAP machine. Patient does still complain of some shortness breath. Patient denies any chest pain. Patient denies nausea vomiting or diarrhea. Patient denies any urinary burning or frequency On 05/26/2021 patient was seen and examined on his oriented 3 in no apparent distress. Patient maintained on IV Lasix and IV antibiotics for cellulitis. Pulmonary cardiology and infectious disease service following this time patient reports improvement. Patient denies chest pain or shortness breath. Patient denies nausea vomiting or diarrhea. Patient denies any urinary burning or frequency On 05/27/2021 patient alert and oriented 3. Patient reports significant edema and pain to left upper extremity will order venous Doppler to rule out DVT likely secondary from infiltration of IV. Patient remains on IV Lasix and capsule for cellulitis. Patient currently on 15 L high flow nasal cannula. Pulmonary cardiology and infectious disease services following. On 05/28/2021 patient was seen and examined on the medical floor he is alert and oriented 3 in no apparent distress, he is still complaining of shortness of breath and is maintained on oxygen 10 L via nasal cannula, he is complaining of occasional cough without sputum production, he is complaining of constipation, otherwise he denies any complaints, there is no fever or chills no headache or dizziness no chest pain no nausea or vomiting no abdominal pain no diarrhea no blood in the stool no burning with urination no frequency or urgency no hematuria Patient underwent CT angiogram of the chest that was suspicious for left upper lobe pulmonary embolism, there was evidence also of left sided consolidation and moderate sized pleural effusion, and evidence of ascites. Left upper extremity Doppler was negative for DVT Patient is maintained on Coumadin his INR is therapeutic at 2.5 Echocardiogram revealed normal left ventricular systolic function with an ejection fraction of 60-65% Objective - Vital Signs Vital signs: Vital Signs Temp 97.4 F L 05/28/21 08:00 Pulse 80 05/28/21 08:00 Resp 22 05/28/21 08:00 BP 164/72 05/28/21 08:00 Pulse Ox 91 L 05/28/21 08:00 Intake & Output 05/27/21 05/28/21 05/28/21 18:59 06:59 18:59 Intake Total 480 Output Total 1350 1500 Balance -870 -1500 Weight 152.5 kg Intake: Oral 480 Output: Urine 1350 1500 Other: # Bowel Movements 2 1 - Exam Head normocephalic and atraumatic Neck supple, no JVD no goiter Lungs clear to auscultation bilaterally no wheezing or crackles Heart regular rate and rhythm S1-S2, no rub or gallop Abdomen is soft nontender nondistended positive bowel sounds no hep atosplenomegaly Extremities +3 lower extremity edema with erythema Neuro alert and orientated x 3, no gross neurological deficit - Labs CBC & Chem 7: 05/28/21 08:28 05/28/21 08:28 Labs: Abnormal Lab Results - Last 24 Hours (Table) 05/27/21 05/27/21 05/27/21 Range/Units 09:47 09:47 09:47 WBC 13.1 H (3.8-10.6) k/uL MCV 102.3 H (80.0-100.0) fL MCHC 30.9 L (31.0-37.0) g/dL RDW 17.2 H (11.5-15.5) % Neutrophils # 10.4 H (1.3-7.7) k/uL PT 30.2 H (9.0-12.0) sec INR 3.1 H (<1.2) BUN 41 H (9-20) mg/dL Glucose 123 H (74-99) mg/dL POC Glucose (mg/dL) (75-99) mg/dL 11/05/21 11/05/21 11/05/21 Range/Units 12:03 16:43 20:15 WBC (3.8-10.6) k/uL MCV (80.0-100.0) fL MCHC (31.0-37.0) g/dL RDW (11.5-15.5) % Neutrophils # (1.3-7.7) k/uL PT (9.0-12.0) sec INR (<1.2) BUN (9-20) mg/dL Glucose (74-99) mg/dL POC Glucose (mg/dL) 112 H 144 H 171 H (75-99) mg/dL 05/28/21 Range/Units 06:44 WBC (3.8-10.6) k/uL MCV (80.0-100.0) fL MCHC (31.0-37.0) g/dL RDW (11.5-15.5) % Neutrophils # (1.3-7.7) k/uL PT (9.0-12.0) sec INR (<1.2) BUN (9-20) mg/dL Glucose (74-99) mg/dL POC Glucose (mg/dL) 127 H (75-99) mg/dL Microbiology - Last 24 Hours (Table) 05/25/21 12:44 Blood Culture - Preliminary Blood No Growth after 48 hours Assessment and Plan Assessment: 1. Dyspnea secondary to CHF and COPD exacerbation, and possible pulmonary embolism, 2. History of obstructive sleep apnea 3. Chronic respiratory failure maintained on home O2 4. Bilateral lower extremity cellulitis and edema. Patient started on IV antibiotic infectious disease service is consulted 5. Elevated lactic acid. Patient started on antibiotic for lower infection for cellulitis. Infectious the service consulted UA and blood culture ordered 6. Status post pacemaker insertion 7. Chronic atrial fibrillation maintained on Coumadin 8. History of diabetes mellitus type 2 thank scale insulin coverage added hemoglobin A1c 9. History of cardiomyopathy, currently left ventricular function is normal with an ejection fraction of 60-65% 10. History of gout 11. Hypothyroidism 12. Increased swelling to left upper extremity will order venous Doppler to rule out DVT DVT prophylaxis Coumadin. GI prophylaxis Protonix Pulmonary, cardiology and infectious disease services following IV antibiotic for cellulitis Blood culture and UA ordered Repeat labs ordered
--- NOTE | 2021-05-28 14:04 | P.PN ---
Subjective Progress Note Date: 05/28/21 This is a 75-year-old male that we saw in the emergency department, room 6. The patient came into the emergency room, with weight gain, lower extremity edema with cellulitis, falling at home, and shortness of breath. The patient does have a history of chronic hypoxemic respiratory failure and does use oxygen at 3 L/m, at home. He also has sleep apnea, and for that he uses CPAP at home. His primary care provider is Dr. Sampson. He used to see Dr. SRIRAM Chu as his qa reviewer. The patient has a history of atrial fibrillation, a questionable history of COPD even though he wasn't a smoker, diabetes mellitus, hyperlipidemia, and sleep apnea syndrome. He also suffers some arthritis, gout, cardiomyopathy, and has a previous history of methicillin-resistant staph aureus infection, and also infection with vancomycin-resistant enterococci. He is status post pacemaker insertion. Anyway, the patient states that at home, he's been feeling very weak and is been falling. He's gained quite a bit of weight has significant lower extremity edema. White count 9.4, hemoglobin 15.1, hematocrit 47.2, and platelet count 159,000. PTT 31.1, INR 3.2, and PTT 31.6. Sodium 137, potassium 4, chlorides 101, CO2 24, anion gap 12, BUN 22, creatinine 1.21. Lactic acid was 2.9 and repeat was 3.5. Troponin was normal. N-terminal proBNP was 608. Testing for medina virus was negative. Chest x-ray showed evidence of cardiomegaly, and a posterior pleural effusion. The patient is seen today 05/26/2021 in follow-up on the observation unit. He is currently sitting up in bed. Awake and alert in no acute distress. He is currently on 15 L high flow nasal cannula maintaining O2 saturations in the 90s. He did wear BiPAP 12/6 and 50% FiO2 overnight. Chest x-ray reveals cardiomegaly. A right basilar infiltrate and small left pleural effusion. Venous Dopplers of the lower extremities were negative for DVT. He is currently on a cefazolin for cellulitis of the lower extremities. White count 14.1. Hemoglobin 14.9. Platelets 204. INR 3.3. Sodium 139. Potassium 4.8. Creatinine 1.14. He remains on DuoNeb inhalations, Pulmicort inhalations, Lasix 40 mg IV every 12 hours. He is on dofetilide. Anticoagulated with warfarin. The patient is seen today 05/27/2021 in follow-up on the regular medical floor. He is currently resting in bed. Awake and alert in no acute distress. He has required 15 L high flow nasal cannula to maintain O2 saturations in the 90s. He has left upper extremity edema status post Doppler results of which are pending. He has some ongoing cough and congestion and small amount of productive sputum. Blood cultures reveal no growth to date. White count 13.1. Hemoglobin 15.1. INR 3.1. Sodium 139. Potassium 5.1. Creatinine 1.15. AST 44. ALT 18. He is continued on DuoNeb inhalations, Pulmicort inhalations. He is on IV diuretics. Antibiotics in the form of cefazolin. Echocardiogram revealed preserved left ventricular systolic function with ejection fraction 66 5%. There is moderate pulmonary hypertension. The patient is seen today 05/28/2021 in follow-up on the regular medical floor. He is currently resting fairly comfortably in bed. Awake and alert in no acute distress. Still requiring 15 L high flow nasal cannula to maintain O2 satura tions in the 90s. He still has a loose congested cough. His appetite is good. No DVT in the left upper extremity however there was pulmonary emboli found in the left upper lobe and right lower lobe secondary to distal branches. Evidence of fluid volume overload and left-sided consolidation. Count 10.3. Hemoglobin 14.7. Platelets 166. INR 2.5. Sodium 135. Potassium 4.2. Creatinine 0.98. Appear remains on warfarin, bronchodilators, cefazolin. He remains on IV diuretics. Remains in a negative balance. Objective - Vital Signs Vital signs: Vital Signs Temp 97.4 F L 05/28/21 08:00 Pulse 80 05/28/21 11:32 Resp 22 05/28/21 08:10 BP 164/72 05/28/21 08:00 Pulse Ox 91 L 05/28/21 08:00 Intake & Output 05/27/21 05/28/21 05/28/21 18:59 06:59 18:59 Intake Total 480 Output Total 1350 1500 Balance -870 -1500 Weight 152.5 kg Intake: Oral 480 Output: Urine 1350 1500 Other: # Bowel Movements 2 1 - Exam Pleasant 75-year-old gentleman, currently on 15 L high flow nasal cannula. No acute distress, oriented 3. Mild tachypnea, alternating with BiPAP at 12/6 and 50%. HEENT examination is grossly unremarkable. Neck supple. Full range of motion. No adenopathy thyromegaly or neck vein distention. Cardiovascular examination reveals regular rhythm rate. S1-S2 normal. No S3 or S4. No discernible murmur noted. Heart sounds are distant. Lungs reveal no rhonchi. No wheezes. Minimal basilar crackles noted. Breath sounds equal bilaterally. Abdomen soft bowel sounds are heard. No masses or tenderness. Extremities are edematous, but diffuse bilateral lower extremity cellulitis, pit ting, and chronic venous stasis changes. Skin is without rash or lesion. Neurologic examination is brief but nonfocal. - Labs CBC & Chem 7: 05/28/21 08:28 05/28/21 08:28 Labs: Abnormal Lab Results - Last 24 Hours (Table) 05/27/21 05/27/21 05/28/21 Range/Units 16:43 20:15 06:44 MCV (80.0-100.0) fL RDW (11.5-15.5) % Monocytes # (0-1.0) k/uL PT (9.0-12.0) sec INR (<1.2) Sodium (137-145) mmol/L BUN (9-20) mg/dL Glucose (74-99) mg/dL POC Glucose (mg/dL) 144 H 171 H 127 H (75-99) mg/dL Total Bilirubin (0.2-1.3) mg/dL 05/28/21 05/28/21 05/28/21 Range/Units 08:28 08:28 08:28 MCV 101.4 H (80.0-100.0) fL RDW 17.1 H (11.5-15.5) % Monocytes # 1.1 H (0-1.0) k/uL PT 24.3 H (9.0-12.0) sec INR 2.5 H (<1.2) Sodium 135 L (137-145) mmol/L BUN 39 H (9-20) mg/dL Glucose 194 H (74-99) mg/dL POC Glucose (mg/dL) (75-99) mg/dL Total Bilirubin 1.4 H (0.2-1.3) mg/dL 05/28/21 Range/Units 11:45 MCV (80.0-100.0) fL RDW (11.5-15.5) % Monocytes # (0-1.0) k/uL PT (9.0-12.0) sec INR (<1.2) Sodium (137-145) mmol/L BUN (9-20) mg/dL Glucose (74-99) mg/dL POC Glucose (mg/dL) 234 H (75-99) mg/dL Total Bilirubin (0.2-1.3) mg/dL Microbiology - Last 24 Hours (Table) 05/25/21 12:44 Blood Culture - Preliminary Blood No Growth after 48 hours Assessment and Plan Assessment: 1 Acute hypoxemic respiratory failure secondary to an acute cor pulmonale, with right-sided heart failure, pulmonary hypertension, likely secondary to sleep apnea syndrome, and possible Pickwickian syndrome and bilateral pulmonary emboli. 2 Acute bilateral pulmonary emboli despite therapeutic INR 3 Morbid obesity. 4 History of obstructive sleep apnea syndrome, on home CPAP. 5 History of chronic atrial fibrillation. Anticoagulated with warfarin 6 Status post pacemaker insertion. 7 History of diabetes mellitus. 8 History of hyperlipidemia. 9 History of cardiomyopathy. 10 History of arthritis. 11 History of gout. 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 13 Lifelong nonsmoker Plan: The patient was seen and evaluated by Dr. Marcos CT angiogram was positive for PE He is therapeutic on his warfarin Doppler of the left upper extremity negative for DVT Titrate down the FiO2 as tolerated Antibiotics for cellulitis per ID service We'll continue to follow I, the cosigning physician, performed a history & physical examination of the patient. Lungs sounds crackles in bilateral bases. Maintaining good O2 saturations in the 90s on 15 L high flow nasal cannula alternating with BiPAP. I discussed the assessment and plan of care with my nurse practitioner, Mary Pedro. I attest to the above note as dictated by her.
[2021-05-28 16:33] LABS: Glucose,Whole Blood 140 mg/dL (75-99)
--- NOTE | 2021-05-28 16:48 | PN ---
PROGRESS NOTE DATE OF SERVICE: 05/28/2021 REASON FOR FOLLOWUP: Lower extremity cellulitis. INTERVAL HISTORY: Patient is afebrile. He is breathing slightly comfortably. Denies having any chest pain. He did have occasional cough, not bringing up sputum. No abdominal pain. Still has swelling to the lower extremity, but no worsening redness. No open wound or any drainage. PHYSICAL EXAMINATION: Blood pressure 123/67 with a pulse of 72, temperature 98.1. He is 90% on 15 L high- flow oxygen. General description is an elderly male up in the chair in no distress. Respiratory system: Unlabored breathing with decreased intensity of breath sounds. No wheeze. Heart S1, S2. Regular rate and rhythm. Abdomen soft, no tenderness. Legs did have swelling. No worsening redness or any drainage. LABS: Hemoglobin is 14.7, white count 10.3, creatinine 0.98. DIAGNOSTIC IMPRESSION AND PLAN: Patient admitted to the hospital with increasing shortness of breath, multifactorial in this patient with possible fluid overload and also suspicious for PE on the CT angiogram. He did have diffuse swelling lower extremity, concern for possible cellulitis. The patient is covered with cefazolin. Drew wrap to keep the swelling down and monitor clinical course closely. MMODL / IJN: [id number] /
[2021-05-28] MEDS ORDERED: WARFARIN 2 MG TAB PO ONE (18:00)
[2021-05-28 20:02] LABS: Glucose,Whole Blood 157 mg/dL (75-99)
--- NOTE | 2021-05-28 20:19 | P.PN ---
Subjective This is a pleasant 75-year-old male past medical history significant for chronic persistent atrial fibrillation, sick sinus syndrome status post dual chamber permanent pacemaker 2012, hypertension, obesity, type 2 diabetes, pulmonary hypertension, left ventricular hypertrophy, venous insufficiency, lymphedema, former tobacco use 20+ years ago. He follows in the office with Dr. Witt. We have been asked to see in consultation for congestive heart failure. Patient presents emergency department with complaints of shortness of breath, 29lb fabiola ght gain over 1 month and worsening lower extremity edema. Echocardiogram revealed an EF of 6065 percent, RV is mildly enlarged, moderate tricuspid regurgitation, moderate pulmonary hypertension with RVSP of 46 mmHg. Patient seen and examined at bedside, his symptoms of shortness of breath have not improved from yesterday. He is requiring increased oxygen requirements. Increase swelling to his left hand/arm, he is undergoing ultrasound of his left upper extremity. Sodium 139, potassium 5.1, BUN 41, serum creatinine 1.15, magnesium 2.3, WBC 13.1, platelets 171, hemoglobin 15, INR 3.1 Voided 1.5L urine output over the past 24 hours. Patient is currently maintained on antibiotics for cellulitis, IV Lasix 40 mg twice a day, atorvastatin 10 mg daily, Tikosyn 500mcg BID, magnesium oxide, metoprolol tartrate 25 mg twice a day, Coumadin. 05/28 Patient seen and examined. Patient admits to some mild productive cough and believes he is bringing up some congestion. Admits his shortness breath is fairly similar. Admits to good urine output with IV Lasix. Denies any chest pain or pressure. Echo showed EF 60% with elevated RVSP 46 and moderate LVH PHYSICAL EXAMINATION Vitals reviewed CONSTITUTIONAL: No acute distress. HEENT: Neck Supple. mild JVD. CHEST EXAMINATION: Lungs are bilateral rhonci to auscultation. No chest wall tenderness is noted on palpation or with deep breathing. HEART EXAMINATION: Regular rate and rhythm. S1, S2 heard. Systolic ejection murmur noted. ABDOMEN: Soft, nontender. Positive bowel sounds. EXTREMITIES: 2+ peripheral pulses, 3+ bilateral lower extremity edema, left lower extremity redness NEUROLOGIC EXAMINATION: Patient is awake, alert and oriented x3. ASSESSMENT Acute on chronic diastolic heart failure Pulmonary hypertension Acute hypoxic respiratory failure Chronic persistent atrial fibrillation [id number] score 4 on coumadin Sick sinus syndrome status post dual chamber permanent pacemaker 2012 Hypertension Obesity Type 2 diabetes PLAN Continue IV diuresis and monitor creatinine closely. Echo shows preserved EF with pulmonary hypertension and moderate LVH. Continue with supportive care. Patient still needs diuresis. Objective - Vital Signs Vital signs: Vital Signs Temp 97.5 F L 05/28/21 19:38 Pulse 80 05/28/21 19:38 Resp 18 05/28/21 19:38 BP 101/61 05/28/21 19:38 Pulse Ox 91 L 05/28/21 19:38 Intake & Output 05/28/21 05/28/21 05/29/21 06:59 18:59 05:59 Output Total 1500 200 Balance -1500 -200 Weight 152.5 kg 154.72 kg Output: Urine 1500 200 Other: # Bowel Movements 1 - Labs CBC & Chem 7: 05/28/21 08:28 05/28/21 08:28 Labs: Abnormal Lab Results - Last 24 Hours (Table) 05/27/21 05/28/21 05/28/21 Range/Units 20:15 06:44 08:28 MCV (80.0-100.0) fL RDW (11.5-15.5) % Monocytes # (0-1.0) k/uL PT 24.3 H (9.0-12.0) sec INR 2.5 H (<1.2) Sodium (137-145) mmol/L BUN (9-20) mg/dL Glucose (74-99) mg/dL POC Glucose (mg/dL) 171 H 127 H (75-99) mg/dL Total Bilirubin (0.2-1.3) mg/dL 05/28/21 05/28/21 05/28/21 Range/Units 08:28 08:28 11:45 MCV 101.4 H (80.0-100.0) fL RDW 17.1 H (11.5-15.5) % Monocytes # 1.1 H (0-1.0) k/uL PT (9.0-12.0) sec INR (<1.2) Sodium 135 L (137-145) mmol/L BUN 39 H (9-20) mg/dL Glucose 194 H (74-99) mg/dL POC Glucose (mg/dL) 234 H (75-99) mg/dL Total Bilirubin 1.4 H (0.2-1.3) mg/dL 05/28/21 05/28/21 Range/Units 16:22 20:01 MCV (80.0-100.0) fL RDW (11.5-15.5) % Monocytes # (0-1.0) k/uL PT (9.0-12.0) sec INR (<1.2) Sodium (137-145) mmol/L BUN (9-20) mg/dL Glucose (74-99) mg/dL POC Glucose (mg/dL) 140 H 157 H (75-99) mg/dL Total Bilirubin (0.2-1.3) mg/dL Microbiology - Last 24 Hours (Table) 05/25/21 12:44 Blood Culture - Preliminary Blood No Growth after 72 hours
[2021-05-28] MEDS: DOCUSATE 100 MG CAP PO SCH (20:51)
[2021-05-29] MEDS: FUROSEMIDE 10 MG/ML 4 ML VIAL IV SCH ×3 (00:55→16:13)
[2021-05-29] MEDS: LEVOTHYROXINE 50 MCG TAB PO SCH (06:28)
[2021-05-29 06:58] LABS: Glucose,Whole Blood 130 mg/dL (75-99)
[2021-05-29] MEDS: INSULIN ASPART (NovoLOG) 100 UNIT/ML VIAL SQ SCH ×4 (07:32→21:52)
[2021-05-29] MEDS: PANTOPRAZOLE 40 MG TABLET PO SCH (08:22)
[2021-05-29] MEDS: allopurinoL 300 MG TAB PO SCH (08:22)
[2021-05-29] MEDS: ATORVASTATIN 10 MG TAB PO SCH (08:22)
[2021-05-29] MEDS: MAGNESIUM OXIDE 400 MG TAB PO SCH (08:22)
[2021-05-29] MEDS: MULTIVITAMINS, THERA 1 EACH TAB PO SCH (08:22)
[2021-05-29] MEDS: DOCUSATE 100 MG CAP PO SCH ×2 (08:22→21:52)
[2021-05-29] MEDS: METOPROLOL TARTRATE 25 MG TAB PO SCH ×2 (08:22→21:51)
[2021-05-29] MEDS: ACETAMINOPHEN TAB 325 MG TAB PO PRN ×2 (08:25→21:55)
[2021-05-29] MEDS: BUDESONIDE 0.5 MG/2 ML NEBU INHALATION SCH (08:27)
[2021-05-29] MEDS: IPRATROPIUM-ALBUTEROL 3 ML NEB INHALATION SCH ×4 (08:27→19:32)
[2021-05-29 08:48] LABS: INR 2.3 (<1.2); Prothrombin Time 22.2 sec (9.0-12.0)
[2021-05-29] MEDS: DOFETILIDE 500 MCG CAP PO SCH ×2 (09:44→21:51)
--- NOTE | 2021-05-29 10:40 | P.PN ---
Subjective Progress Note Date: 05/29/21 Tristian Galloway is a 75-year-old male patient of Dr. Sampson who presented with ongoing shortness of breath and weight gain. Patient reports he's had increasing shortness of breath over the past month with episodes of falling and significant weight gain. Patient is maintained on home O2 for chronic hypoxic respiratory failure but states that the shortness of breath has been increasing. Patient does have a past medical history of A. fib in which she is maintained on Coumadin, COPD, diabetes mellitus, hyperlipidemia and pacemaker. Chest x-ray completed in ER showing cardiomegaly posterior pleural effusion. BNP 608. Troponin was normal lactic acid elevated at 2.9 COVID-19 was negative. Patient has been started on updraft breathing treatments IV Lasix and sublingual insulin for cellulitis. Pulmonary, cardiology and infectious disease services have been consulted. This time patient is resting currently in bed on BiPAP machine. Patient does still complain of some shortness breath. Patient denies any chest pain. Patient denies nausea vomiting or diarrhea. Patient denies any urinary burning or frequency On 05/26/2021 patient was seen and examined on his oriented 3 in no apparent distress. Patient maintained on IV Lasix and IV antibiotics for cellulitis. Pulmonary cardiology and infectious disease service following this time patient reports improvement. Patient denies chest pain or shortness breath. Patient denies nausea vomiting or diarrhea. Patient denies any urinary burning or frequency On 05/27/2021 patient alert and oriented 3. Patient reports significant edema and pain to left upper extremity will order venous Doppler to rule out DVT likely secondary from infiltration of IV. Patient remains on IV Lasix and capsule for cellulitis. Patient currently on 15 L high flow nasal cannula. Pulmonary cardiology and infectious disease services following. On 05/28/2021 patient was seen and examined on the medical floor he is alert and oriented 3 in no apparent distress, he is still complaining of shortness of breath and is maintained on oxygen 10 L via nasal cannula, he is complaining of occasional cough without sputum production, he is complaining of constipation, otherwise he denies any complaints, there is no fever or chills no headache or dizziness no chest pain no nausea or vomiting no abdominal pain no diarrhea no blood in the stool no burning with urination no frequency or urgency no hematuria Patient underwent CT angiogram of the chest that was suspicious for left upper lobe pulmonary embolism, there was evidence also of left sided consolidation and moderate sized pleural effusion, and evidence of ascites. Left upper extremity Doppler was negative for DVT Patient is maintained on Coumadin his INR is therapeutic at 2.5 Echocardiogram revealed normal left ventricular systolic function with an ejection fraction of 60-65% On 05/29/2021 patient is alert and oriented 3. Patient currently on high flow 15 L remains on IV diuretics. Patient remains on IV antibiotics for cellulitis. INR therapeutic at 2.3. Pulmonary, cardiology and infectious disease services are following. Repeat labs will be ordered for a.m. Objective - Vital Signs Vital signs: Vital Signs Temp 97.6 F 05/29/21 08:00 Pulse 84 05/29/21 08:42 Resp 18 05/29/21 08:42 BP 105/56 05/29/21 08:00 Pulse Ox 92 L 05/29/21 08:27 Intake & Output 05/28/21 05/29/21 05/29/21 19:59 06:59 18:59 Output Total Balance Weight Output: Urine Urine/Stool Mix - Exam Head normocephalic and atraumatic Neck supple, no JVD no goiter Lungs clear to auscultation bilaterally no wheezing or crackles Heart regular rate and rhythm S1-S2, no rub or gallop Abdomen is soft nontender nondistended positive bowel sounds no hepato splenomegaly Extremities +3 lower extremity edema with erythema Neuro alert and orientated x 3, no gross neurological deficit - Labs CBC & Chem 7: 05/28/21 08:28 05/28/21 08:28 Labs: Abnormal Lab Results - Last 24 Hours (Table) 05/28/21 05/28/21 05/28/21 Range/Units 11:45 16:22 20:01 PT (9.0-12.0) sec INR (<1.2) POC Glucose (mg/dL) 234 H 140 H 157 H (75-99) mg/dL 05/29/21 05/29/21 Range/Units 06:56 08:17 PT 22.2 H (9.0-12.0) sec INR 2.3 H (<1.2) POC Glucose (mg/dL) 130 H (75-99) mg/dL Microbiology - Last 24 Hours (Table) 05/25/21 12:44 Blood Culture - Preliminary Blood No Growth after 72 hours Assessment and Plan Assessment: 1. Dyspnea secondary to CHF and COPD exacerbation, and possible pulmonary embolism, 2. History of obstructive sleep apnea 3. Chronic respiratory failure maintained on home O2 4. Bilateral lower extremity cellulitis and edema. Patient started on IV antibiotic infectious disease service is consulted 5. Elevated lactic acid. Patient started on antibiotic for lower infection for cellulitis. Infectious the service consulted UA and blood culture ordered 6. Status post pacemaker insertion 7. Chronic atrial fibrillation maintained on Coumadin 8. History of diabetes mellitus type 2 thank scale insulin coverage added hemoglobin A1c 9. History of cardiomyopathy, currently left ventricular function is normal with an ejection fraction of 60-65% 10. History of gout 11. Hypothyroidism 12. Increased swelling to left upper extremity will order venous Doppler to rule out DVT. Venous Doppler negative 13. Acute bilateral pulmonary emboli. Patient remains on Coumadin level is currently therapeutic DVT prophylaxis Coumadin. GI prophylaxis Protonix Pulmonary, cardiology and infectious disease services following IV antibiotic for cellulitis Patient remains on IV diuretics
[2021-05-29 11:44] LABS: Glucose,Whole Blood 175 mg/dL (75-99)
[2021-05-29 12:39] LABS: Basophils # (A) 0.02 X 10*3/uL (0.00-0.10); Basophils % (A) 0.2 %; Eosinophils # (A) 0.29 X 10*3/uL (0.04-0.35); Eosinophils % (A) 2.9 %; HGB 14.3 g/dL (13.0-17.0); Lymphocytes # (A) 1.47 X 10*3/uL (0.90-5.00); Lymphocytes % (A) 14.7 %; MCH 31.7 pg (27.0-32.0); MCHC 32.5 g/dL (32.0-37.0); MCV 97.6 fL (80.0-97.0); Mean Platelet Volume 11.1 fL (9.5-12.2); Monocytes # (A) 1.47 X 10*3/uL (0.20-1.00); Monocytes % (A) 14.7 %; Neutrophils # (A) 6.76 X 10*3/uL (1.80-7.70); Neutrophils % (A) 67.3 %; Platelet Count 166 X 10*3/uL (140-440); RBC 4.51 X 10*6/uL (4.40-5.60); RDW 17.9 % (11.5-14.5); WBC 10.03 X 10*3/uL (4.50-10.00)
[2021-05-29 12:58] LABS: African American GFR (CKD) 76.2 (60.0-200.0); Albumin 3.6 g/dL (3.8-4.9); Albumin/Globulin Ratio 1.24 (1.60-3.17); BUN/Creat Ratio 25.09 Ratio (12.00-20.00); Blood Urea Nitrogen 27.6 mg/dL (9.0-27.0); Calcium 8.4 mg/dL (8.7-10.3); Globulin 2.9 g/dL (1.6-3.3); Non-African American GFR(CKD) 65.8 (60.0-200.0); Potassium 4.6 mmol/L (3.5-5.5); Total Bilirubin 1.5 mg/dL (0.30-1.20); Total Protein 6.5 g/dL (6.2-8.2)
[2021-05-29] MEDS: methylPREDNISolone SOD SUCCI 40 MG/ML 1 ML VIAL IV SCH ×3 (13:14→21:52)
[2021-05-29] MEDS ORDERED: HEPARIN SODIUM 1,000 UN/ML (10ML VL) IV PRN (15:32)
--- NOTE | 2021-05-29 15:37 | P.PN ---
Subjective Progress Note Date: 05/29/21 Principal diagnosis: Dyspnea This is a 75-year-old male that we saw in the emergency department, room 6. The patient came into the emergency room, with weight gain, lower extremity edema with cellulitis, falling at home, and shortness of breath. The patient does have a history of chronic hypoxemic respiratory failure and does use oxygen at 3 L/m, at home. He also has sleep apnea, and for that he uses CPAP at home. His primary care provider is Dr. Smapson. 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 The patient has a history of atrial fibrillation, a questionable history of COPD even though he wasn't a smoker, diabetes mellitus, hyperlipidemia, and sleep apnea syndrome. He also suffers some arthritis, gout, cardiomyopathy, and has a previous history of methicillin-resistant staph aureus infection, and also infection with vancomycin-resistant enterococci. He is status post pacemaker insertion. Anyway, the patient states that at home, he's been feeling very weak and is been falling. He's gained quite a bit of weight has significant lower extremity edema. White count 9.4, hemoglobin 15.1, hematocrit 47.2, and platelet count 159,000. PTT 31.1, INR 3.2, and PTT 31.6. Sodium 137, potassium 4, chlorides 101, CO2 24, anion gap 12, BUN 22, creatinine 1.21. Lactic acid was 2.9 and repeat was 3.5. Troponin was normal. N-terminal proBNP was 608. Testing for medina virus was negative. Chest x-ray showed evidence of cardiomegaly, and a posterior pleural effusion. The patient is seen today 05/26/2021 in follow-up on the observation unit. He is currently sitting up in bed. Awake and alert in no acute distress. He is currently on 15 L high flow nasal cannula maintaining O2 saturations in the 90s. He did wear BiPAP 12/6 and 50% FiO2 overnight. Chest x-ray reveals cardiomegaly. A right basilar infiltrate and small left pleural effusion. Venous Dopplers of the lower extremities were negative for DVT. He is currently on a cefazolin for cellulitis of the lower extremities. White count 14.1. Hemoglobin 14.9. Platelets 204. INR 3.3. Sodium 139. Potassium 4.8. Creatinine 1.14. He remains on DuoNeb inhalations, Pulmicort inhalations, Lasix 40 mg IV every 12 hours. He is on dofetilide. Anticoagulated with warfarin. The patient is seen today 05/27/2021 in follow-up on the regular medical floor. He is currently resting in bed. Awake and alert in no acute distress. He has required 15 L high flow nasal cannula to maintain O2 saturations in the 90s. He has left upper extremity edema status post Doppler results of which are pending. He has some ongoing cough and congestion and small amount of productive sputum. Blood cultures reveal no growth to date. White count 13.1. Hemoglobin 15.1. INR 3.1. Sodium 139. Potassium 5.1. Creatinine 1.15. AST 44. ALT 18. He is continued on DuoNeb inhalations, Pulmicort inhalations. He is on IV diuretics. Antibiotics in the form of cefazolin. Echocardiogram revealed preserved left ventricular systolic function with ejection fraction 66 5%. There is moderate pulmonary hypertension. The patient is seen today 05/28/2021 in follow-up on the regular medical floor. He is currently resting fairly comfortably in bed. Awake and alert in no acute distress. Still requiring 15 L high flow nasal cannula to maintain O2 saturations in the 90s. He still has a loose congested cough. His appetite is good. No DVT in the left upper extremity however there was pulmonary emboli found in the left upper lobe and right lower lobe secondary to distal branches. Evidence of fluid volume overload and left-sided consolidation. Count 10.3. Hemoglobin 14.7. Platelets 166. INR 2.5. Sodium 135. Potassium 4.2. Creatinine 0.98. Appear remains on warfarin, bronchodilators, cefazolin. He remains on IV diuretics. Remains in a negative balance. On 05/29/2021 patient seen in follow-up on medical surgical floor. He is resting comfortably in bed, appears to be distress, he is currently on 15 L of oxygen his pulse ox is 91%, he remains on diuretics with Lasix 40 mg every 8 hours, he is indicative 2.39 fluid balance over the last 24 hours, he is on antibiotics, nebulized bronchodilators, and he was started on Coumadin anticoagulation, his INR today is 2.3, his white count is 10.03, hemoglobin is 14.3, electrolytes are within normal limits, his BUN is 27 creatinine is 1.1. Blood cultures have shown no growth thus far, no fever or chills. Required BiPAP at bedtime with FiO2 of 50%. Objective - Vital Signs Vital signs: Vital Signs Temp 97.4 F L 05/29/21 14:00 Pulse 76 05/29/21 15:15 Resp 20 05/29/21 14:00 BP 122/81 05/29/21 14:00 Pulse Ox 90 L 05/29/21 14:00 Intake & Output 05/28/21 05/29/21 05/29/21 19:59 06:59 18:59 Output Total Balance Weight Output: Urine Urine/Stool Mix - Exam GENERAL EXAM: Alert, hence, 75-year-old morbidly obese white male, on 15 L of oxygen with a pulse ox of 92%, comfortable in no apparent distress. HEAD: Normocephalic/atraumatic. EYES: Normal reaction of pupils, equal size. Conjunctiva pink, sclera white. NOSE: Clear with pink turbinates. THROAT: No erythema or exudates. NECK: No masses, no JVD, no thyroid enlargement, no adenopathy. CHEST: No chest wall deformity. Symmetrical expansion. LUNGS: Equal air entry with diminished breath sounds, with some scattered wheezes and rhonchi CVS: Regular rate and rhythm, normal S1 and S2, no gallops, no murmurs, no rubs ABDOMEN: Soft, nontender. No hepatosplenomegaly, normal bowel sounds, no guarding or rigidity. EXTREMITIES: No clubbing, no edema, no cyanosis, 2+ pulses and upper and lower extremities. MUSCULOSKELETAL: Muscle strength and tone normal. SPINE: No scoliosis or deformity SKIN: No rashes CENTRAL NERVOUS SYSTEM: Alert and oriented -3. No focal deficits, tone is normal in all 4 extremities. PSYCHIATRIC: Alert and oriented -3. Appropriate affect. Intact judgment and insight. - Labs CBC & Chem 7: 05/29/21 08:17 05/29/21 08:17 Labs: Abnormal Lab Results - Last 24 Hours (Table) 05/28/21 05/28/21 05/29/21 Range/Units 16:22 20:01 06:56 WBC (4.50-10.00) X 10*3/uL MCV (80.0-97.0) fL RDW (11.5-14.5) % Monocytes # (0.20-1.00) X 10*3/uL PT (9.0-12.0) sec INR (<1.2) BUN (9.0-27.0) mg/dL BUN/Creatinine Ratio (12.00-20.00) Ratio Glucose (70-110) mg/dL POC Glucose (mg/dL) 140 H 157 H 130 H (75-99) mg/dL Calcium (8.7-10.3) mg/dL Total Bilirubin (0.30-1.20) mg/dL Albumin (3.8-4.9) g/dL Albumin/Globulin Ratio (1.60-3.17) g/dL 05/29/21 05/29/21 05/29/21 Range/Units 08:17 08:17 08:17 WBC 10.03 H (4.50-10.00) X 10*3/uL MCV 97.6 H (80.0-97.0) fL RDW 17.9 H (11.5-14.5) % Monocytes # 1.47 H (0.20-1.00) X 10*3/uL PT 22.2 H (9.0-12.0) sec INR 2.3 H (<1.2) BUN 27.6 H (9.0-27.0) mg/dL BUN/Creatinine Ratio 25.09 H (12.00-20.00) Ratio Glucose 174 H (70-110) mg/dL POC Glucose (mg/dL) (75-99) mg/dL Calcium 8.4 L (8.7-10.3) mg/dL Total Bilirubin 1.50 H (0.30-1.20) mg/dL Albumin 3.6 L (3.8-4.9) g/dL Albumin/Globulin Ratio 1.24 L (1.60-3.17) g/dL 05/29/21 Range/Units 11:42 WBC (4.50-10.00) X 10*3/uL MCV (80.0-97.0) fL RDW (11.5-14.5) % Monocytes # (0.20-1.00) X 10*3/uL PT (9.0-12.0) sec INR (<1.2) BUN (9.0-27.0) mg/dL BUN/Creatinine Ratio (12.00-20.00) Ratio Glucose (70-110) mg/dL POC Glucose (mg/dL) 175 H (75-99) mg/dL Calcium (8.7-10.3) mg/dL Total Bilirubin (0.30-1.20) mg/dL Albumin (3.8-4.9) g/dL Albumin/Globulin Ratio (1.60-3.17) g/dL Microbiology - Last 24 Hours (Table) 05/25/21 12:44 Blood Culture - Preliminary Blood No Growth after 72 hours Assessment and Plan Plan: Assessment: #1. Acute hypoxic respiratory failure, multifactorial, related to acute pulmonary emboli, acute cor pulmonale with right-sided heart failure, pulmonary hypertension, obstructive sleep apnea, and possible pickwickian syndrome #2. Acute pulmonary emboli, despite therapeutic INR on Coumadin, possible failure of anticoagulation #3. Morbid obesity #4. History of obstructive sleep apnea on home CPAP #5. History of chronic atrial fibrillation on Coumadin #6. Status post pacemaker insertion #7. History of diabetes no this type II #8. History of hyperlipidemia #9. History of cardiomyopathy #10. History of arthritis #11. History of gout #12. Prior history of MRSA and VRE infections #13. Lifelong nonsmoker Plan: Patient is still requiring high flow oxygen Continue with diuretics continue with antibiotics and breathing treatments We will add IV steroids We'll stop the Coumadin, start the patient on high intensity heparin infusion There is possibly of anticoagulation failure, as the patient has developed acute pulmonary emboli while on Coumadin and having therapeutic INR May have to consider a different anticoagulant Antibiotics for cellulitis per ID service We'll continue to follow his clinical course I performed a history & physical examination of the patient and discussed their management with my nurse practitioner, Georgette Jacobson. I reviewed the nurse practitioner's note and agree with the documented findings and plan of care. Lung sounds are positive for diminished breath sounds throughout the lung fi elds. The findings and the impression was discussed with the patient. I attest to the documentation by the nurse practitioner. Time with Patient: Less than 30
[2021-05-29 16:32] LABS: Glucose,Whole Blood 241 mg/dL (75-99)
[2021-05-29 17:00] LABS: Anisocytosis Slight; Basophils % (A) 0 %; Eosinophils # (A) 0.1 k/uL (0-0.7); Eosinophils % (A) 1 %; HCT 47.6 % (39.0-53.0); HGB 15.2 gm/dL (13.0-17.5); Lymphocytes # (A) 0.6 k/uL (1.0-4.8); Lymphocytes % (A) 6 %; MCH 31.9 pg (25.0-35.0); MCHC 31.9 g/dL (31.0-37.0); MCV 99.9 fL (80.0-100.0); Macrocytosis Slight; Monocytes # (A) 0.3 k/uL (0-1.0); Monocytes % (A) 4 %; Neutrophils % (A) 89 %; Platelet Count 163 k/uL (150-450); RBC 4.76 m/uL (4.30-5.90); RDW 17.4 % (11.5-15.5)
[2021-05-29 17:10] LABS: INR 2.1 (<1.2); Partial Thromboplastin Time 29.1 sec (22.0-30.0); Prothrombin Time 20.7 sec (9.0-12.0)
[2021-05-29] MEDS: HEPARIN SOD,PORK IN 0.45% NACL 25,000 UNIT in 0.45% NACL 1 250ML.BAG IV SCH (17:29)
[2021-05-29] MEDS ORDERED: WARFARIN 5 MG TAB PO ONE (18:00)
--- NOTE | 2021-05-29 18:44 | P.PN ---
Subjective This is a pleasant 75-year-old male past medical history significant for chronic persistent atrial fibrillation, sick sinus syndrome status post dual chamber permanent pacemaker 2012, hypertension, obesity, type 2 diabetes, pulmonary hypertension, left ventricular hypertrophy, venous insufficiency, lymphedema, former tobacco use 20+ years ago. He follows in the office with Dr. Witt. We have been asked to see in consultation for congestive heart failure. Patient presents emergency department with complaints of shortness of breath, 29lb fabiola ght gain over 1 month and worsening lower extremity edema. Echocardiogram revealed an EF of 6065 percent, RV is mildly enlarged, moderate tricuspid regurgitation, moderate pulmonary hypertension with RVSP of 46 mmHg. Patient seen and examined at bedside, his symptoms of shortness of breath have not improved from yesterday. He is requiring increased oxygen requirements. Increase swelling to his left hand/arm, he is undergoing ultrasound of his left upper extremity. Sodium 139, potassium 5.1, BUN 41, serum creatinine 1.15, magnesium 2.3, WBC 13.1, platelets 171, hemoglobin 15, INR 3.1 Voided 1.5L urine output over the past 24 hours. Patient is currently maintained on antibiotics for cellulitis, IV Lasix 40 mg twice a day, atorvastatin 10 mg daily, Tikosyn 500mcg BID, magnesium oxide, metoprolol tartrate 25 mg twice a day, Coumadin. 05/28 Patient seen and examined. Patient admits to some mild productive cough and believes he is bringing up some congestion. Admits his shortness breath is fairly similar. Admits to good urine output with IV Lasix. Denies any chest pain or pressure. Echo showed EF 60% with elevated RVSP 46 and moderate LVH 05/29 Patient seen and examined. Patient remains on heparin drip secondary to concern of Coumadin failure with pulmonary embolism. So admits to doing short of breath with 15 L oxygen. Denies any chest pain or pressure. Has been continued on diuretics with creatinine stable 1.0. PHYSICAL EXAMINATION Vitals reviewed CONSTITUTIONAL: No acute distress. HEENT: Neck Supple. mild JVD. CHEST EXAMINATION: Lungs are bilateral rhonci to auscultation. No chest wall tenderness is noted on palpation or with deep breathing. HEART EXAMINATION: Regular rate and rhythm. S1, S2 heard. Systolic ejection murmur noted. ABDOMEN: Soft, nontender. Positive bowel sounds. EXTREMITIES: 2+ peripheral pulses, 3+ bilateral lower extremity edema, left lower extremity redness NEUROLOGIC EXAMINATION: Patient is awake, alert and oriented x3. ASSESSMENT Acute on chronic diastolic heart failure Pulmonary hypertension Acute hypoxic respiratory failure Chronic persistent atrial fibrillation [id number] score 4 on coumadin Sick sinus syndrome status post dual chamber permanent pacemaker 2012 Hypertension Obesity Type 2 diabetes PLAN Continue IV diuresis and monitor creatinine closely. Echo shows preserved EF with pulmonary hypertension and moderate LVH. Continue with IV heparin for apparent Coumadin failure as he developed a PE on Coumadin. Objective - Vital Signs Vital signs: Vital Signs Temp 97.4 F L 05/29/21 14:00 Pulse 78 05/29/21 15:27 Resp 20 05/29/21 14:00 BP 122/81 05/29/21 14:00 Pulse Ox 90 L 05/29/21 14:00 Intake & Output 05/28/21 05/29/21 05/29/21 19:59 06:59 18:59 Output Total Balance Weight Output: Urine Urine/Stool Mix Other: # Voids 3 # Bowel Movements 2 - Labs CBC & Chem 7: 05/29/21 16:33 05/29/21 08:17 Labs: Abnormal Lab Results - Last 24 Hours (Table) 05/28/21 05/29/21 05/29/21 Range/Units 20:01 06:56 08:17 WBC (4.50-10.00) X 10*3/uL MCV (80.0-97.0) fL RDW (11.5-14.5) % Neutrophils # (1.3-7.7) k/uL Lymphocytes # (1.0-4.8) k/uL Monocytes # (0.20-1.00) X 10*3/uL PT 22.2 H (9.0-12.0) sec INR 2.3 H (<1.2) BUN (9.0-27.0) mg/dL BUN/Creatinine Ratio (12.00-20.00) Ratio Glucose (70-110) mg/dL POC Glucose (mg/dL) 157 H 130 H (75-99) mg/dL Calcium (8.7-10.3) mg/dL Total Bilirubin (0.30-1.20) mg/dL Albumin (3.8-4.9) g/dL Albumin/Globulin Ratio (1.60-3.17) g/dL 11/07/21 11/07/21 11/07/21 Range/Units 08:17 08:17 11:42 WBC 10.03 H (4.50-10.00) X 10*3/uL MCV 97.6 H (80.0-97.0) fL RDW 17.9 H (11.5-14.5) % Neutrophils # (1.3-7.7) k/uL Lymphocytes # (1.0-4.8) k/uL Monocytes # 1.47 H (0.20-1.00) X 10*3/uL PT (9.0-12.0) sec INR (<1.2) BUN 27.6 H (9.0-27.0) mg/dL BUN/Creatinine Ratio 25.09 H (12.00-20.00) Ratio Glucose 174 H (70-110) mg/dL POC Glucose (mg/dL) 175 H (75-99) mg/dL Calcium 8.4 L (8.7-10.3) mg/dL Total Bilirubin 1.50 H (0.30-1.20) mg/dL Albumin 3.6 L (3.8-4.9) g/dL Albumin/Globulin Ratio 1.24 L (1.60-3.17) g/dL 05/29/21 05/29/21 05/29/21 Range/Units 16:26 16:33 16:33 WBC (4.50-10.00) X 10*3/uL MCV (80.0-97.0) fL RDW 17.4 H (11.5-14.5) % Neutrophils # 8.0 H (1.3-7.7) k/uL Lymphocytes # 0.6 L (1.0-4.8) k/uL Monocytes # (0.20-1.00) X 10*3/uL PT 20.7 H (9.0-12.0) sec INR 2.1 H (<1.2) BUN (9.0-27.0) mg/dL BUN/Creatinine Ratio (12.00-20.00) Ratio Glucose (70-110) mg/dL POC Glucose (mg/dL) 241 H (75-99) mg/dL Calcium (8.7-10.3) mg/dL Total Bilirubin (0.30-1.20) mg/dL Albumin (3.8-4.9) g/dL Albumin/Globulin Ratio (1.60-3.17) g/dL Microbiology - Last 24 Hours (Table) 05/25/21 12:44 Blood Culture - Preliminary Blood No Growth after 96 hours
[2021-05-29] MEDS: BUDESONIDE 1 MG/2 ML NEBU INHALATION SCH (19:31)
[2021-05-29 21:44] LABS: Glucose,Whole Blood 292 mg/dL (75-99)
--- NOTE | 2021-05-29 22:34 | PN ---
PROGRESS NOTE DATE OF SERVICE: 05/29/2021 REASON FOR FOLLOWUP: Lower extremity cellulitis. INTERIM HISTORY: The patient is afebrile. He is breathing slightly comfortably. The patient denies having any chest pain. Occasional cough. No nausea, vomiting. No abdominal pain or pain to the lower extremity. PHYSICAL EXAMINATION: Blood pressure 120/74 with a pulse of 97, temperature 97.4. He is 91% on 15 L high- flow oxygen. General description is an elderly male up in the chair in no distress. Respiratory system: Unlabored breathing, decreased intensity of breath sounds. No wheeze. Heart S1, S2. Regular rate and rhythm. Abdomen soft, no tenderness. Legs did have swelling. Overall redness has almost resolved. LABS: Hemoglobin is 15.1, white count 9.0. Creatinine is 1.1. DIAGNOSTIC IMPRESSION AND PLAN: Patient with bilateral lower extremity cellulitis in this patient who did have diffuse swelling and evidence of fluid overload. Patient with overall improvement on cefazolin. short course of oral Keflex. Continue with supportive care. MMODL / IJN: [id number] /
[2021-05-30] MEDS: FUROSEMIDE 10 MG/ML 4 ML VIAL IV SCH ×4 (00:02→23:57)
[2021-05-30] MEDS: HEPARIN SOD,PORK IN 0.45% NACL 25,000 UNIT in 0.45% NACL 1 250ML.BAG IV SCH ×5 (03:34→21:23)
[2021-05-30] MEDS: LEVOTHYROXINE 50 MCG TAB PO SCH (06:02)
[2021-05-30] MEDS: methylPREDNISolone SOD SUCCI 40 MG/ML 1 ML VIAL IV SCH ×3 (06:02→21:19)
[2021-05-30 06:42] LABS: Anisocytosis Slight; Basophils % (A) 0 %; Eosinophils % (A) 0 %; HCT 48.3 % (39.0-53.0); HGB 15.1 gm/dL (13.0-17.5); Hypochromasia Slight; Lymphocytes # (A) 0.7 k/uL (1.0-4.8); Lymphocytes % (A) 9 %; MCH 31.5 pg (25.0-35.0); MCHC 31.3 g/dL (31.0-37.0); MCV 100.7 fL (80.0-100.0); Macrocytosis Slight; Mean Platelet Volume 7.7; Monocytes # (A) 0.2 k/uL (0-1.0); Monocytes % (A) 3 %; Neutrophils # (A) 6.6 k/uL (1.3-7.7); Neutrophils % (A) 88 %; Platelet Count 163 k/uL (150-450); RDW 16.7 % (11.5-15.5); WBC 7.5 k/uL (3.8-10.6)
[2021-05-30 06:47] LABS: Prothrombin Time 19.6 sec (9.0-12.0)
[2021-05-30 07:07] LABS: ALT 12 U/L (4-49); AST 34 U/L (17-59); African American GFR (CKD) >90 (>60 ml/min/1.73 sqM); Albumin 3.8 g/dL (3.5-5.0); Alkaline Phosphatase 130 U/L (38-126); Anion Gap 9 mmol/L; Blood Urea Nitrogen 31 mg/dL (9-20); Calcium 9.2 mg/dL (8.4-10.2); Carbon Dioxide 28 mmol/L (22-30); Chloride 100 mmol/L (98-107); Globulin 3.9 g/dL; Glucose 215 mg/dL (74-99); Non-African American GFR(CKD) 80 (>60 ml/min/1.73 sqM); Potassium 4.9 mmol/L (3.5-5.1); Sodium 137 mmol/L (137-145); Total Bilirubin 1.7 mg/dL (0.2-1.3); Total Protein 7.7 g/dL (6.3-8.2)
[2021-05-30 07:43] LABS: Glucose,Whole Blood 186 mg/dL (75-99)
[2021-05-30] MEDS: DOCUSATE 100 MG CAP PO SCH ×2 (08:14→21:18)
[2021-05-30] MEDS: PANTOPRAZOLE 40 MG TABLET PO SCH (08:15)
[2021-05-30] MEDS: MULTIVITAMINS, THERA 1 EACH TAB PO SCH (08:15)
[2021-05-30] MEDS: INSULIN ASPART (NovoLOG) 100 UNIT/ML VIAL SQ SCH ×4 (08:15→21:18)
[2021-05-30] MEDS: allopurinoL 300 MG TAB PO SCH (08:15)
[2021-05-30] MEDS: MAGNESIUM OXIDE 400 MG TAB PO SCH (08:15)
[2021-05-30] MEDS: ATORVASTATIN 10 MG TAB PO SCH (08:15)
[2021-05-30] MEDS: METOPROLOL TARTRATE 25 MG TAB PO SCH ×2 (08:15→21:19)
[2021-05-30] MEDS: DOFETILIDE 500 MCG CAP PO SCH ×2 (08:16→22:27)
[2021-05-30] MEDS: ACETAMINOPHEN TAB 325 MG TAB PO PRN ×2 (08:26→21:19)
[2021-05-30] MEDS: IPRATROPIUM-ALBUTEROL 3 ML NEB INHALATION SCH ×4 (09:19→19:40)
[2021-05-30] MEDS: BUDESONIDE 1 MG/2 ML NEBU INHALATION SCH ×2 (09:19→19:40)
--- NOTE | 2021-05-30 09:41 | P.PN ---
Subjective Progress Note Date: 05/30/21 Tristian Galloway is a 75-year-old male patient of Dr. Sampson who presented with ongoing shortness of breath and weight gain. Patient reports he's had increasing shortness of breath over the past month with episodes of falling and significant weight gain. Patient is maintained on home O2 for chronic hypoxic respiratory failure but states that the shortness of breath has been increasing. Patient does have a past medical history of A. fib in which she is maintained on Coumadin, COPD, diabetes mellitus, hyperlipidemia and pacemaker. Chest x-ray completed in ER showing cardiomegaly posterior pleural effusion. BNP 608. Troponin was normal lactic acid elevated at 2.9 COVID-19 was negative. Patient has been started on updraft breathing treatments IV Lasix and sublingual insulin for cellulitis. Pulmonary, cardiology and infectious disease services have been consulted. This time patient is resting currently in bed on BiPAP machine. Patient does still complain of some shortness breath. Patient denies any chest pain. Patient denies nausea vomiting or diarrhea. Patient denies any urinary burning or frequency On 05/26/2021 patient was seen and examined on his oriented 3 in no apparent distress. Patient maintained on IV Lasix and IV antibiotics for cellulitis. Pulmonary cardiology and infectious disease service following this time patient reports improvement. Patient denies chest pain or shortness breath. Patient denies nausea vomiting or diarrhea. Patient denies any urinary burning or frequency On 05/27/2021 patient alert and oriented 3. Patient reports significant edema and pain to left upper extremity will order venous Doppler to rule out DVT likely secondary from infiltration of IV. Patient remains on IV Lasix and capsule for cellulitis. Patient currently on 15 L high flow nasal cannula. Pulmonary cardiology and infectious disease services following. On 05/28/2021 patient was seen and examined on the medical floor he is alert and oriented 3 in no apparent distress, he is still complaining of shortness of breath and is maintained on oxygen 10 L via nasal cannula, he is complaining of occasional cough without sputum production, he is complaining of constipation, otherwise he denies any complaints, there is no fever or chills no headache or dizziness no chest pain no nausea or vomiting no abdominal pain no diarrhea no blood in the stool no burning with urination no frequency or urgency no hematuria Patient underwent CT angiogram of the chest that was suspicious for left upper lobe pulmonary embolism, there was evidence also of left sided consolidation and moderate sized pleural effusion, and evidence of ascites. Left upper extremity Doppler was negative for DVT Patient is maintained on Coumadin his INR is therapeutic at 2.5 Echocardiogram revealed normal left ventricular systolic function with an ejection fraction of 60-65% On 05/29/2021 patient is alert and oriented 3. Patient currently on high flow 15 L remains on IV diuretics. Patient remains on IV antibiotics for cellulitis. INR therapeutic at 2.3. Pulmonary, cardiology and infectious disease services are following. Repeat labs will be ordered for a.m. An 05/30/2021 patient alert and oriented 3. Patient has been switched over to IV heparin due to development of PE while on Coumadin. Patient will need to be on different agent for anticoagulation. Patient remains on high flow nasal cannula 15 L and IV diuretics. She denies nausea vomiting or diarrhea. Patient denies any urinary burning or frequency Objective - Vital Signs Vital signs: Vital Signs Temp 97.8 F 05/30/21 07:30 Pulse 90 05/30/21 09:19 Resp 16 05/30/21 07:30 BP 119/77 05/30/21 07:30 Pulse Ox 95 05/30/21 09:19 Intake & Output 05/29/21 05/30/21 05/30/21 18:59 06:59 18:59 Intake Total 224.117 400 Output Total 150 Balance 74.117 400 Intake: Intake, IV Titration 224.117 Amount Heparin Sod,Pork in 0.45% 224.117 NaCl 25,000 unit In 0.45 % NaCl 1 250ml.bag @ 15. 003 UNITS/KG/HR 23 mls/hr IV .[id number] [facility] Rx#: [id number] Oral 400 Output: Urine 150 Other: Voiding Method Bedside Commode Bedside Commode Urinal Urinal # Voids 3 # Bowel Movements 2 - Exam Head normocephalic and atraumatic Neck supple, no JVD no goiter Lungs clear to auscultation bilaterally no wheezing or crackles Heart regular rate and rhythm S1-S2, no rub or gallop Abdomen is soft nontender nondistended positive bowel sounds no hepatosplenomegaly Extremities +3 lower extremity edema with erythema Neuro alert and orientated x 3, no gross neurological deficit - Labs CBC & Chem 7: 05/30/21 06:20 05/30/21 06:20 Labs: Abnormal Lab Results - Last 24 Hours (Table) 05/29/21 05/29/21 05/29/21 Range/Units 08:17 08:17 11:42 WBC 10.03 H (4.50-10.00) X 10*3/uL MCV 97.6 H (80.0-97.0) fL RDW 17.9 H (11.5-14.5) % Neutrophils # (1.3-7.7) k/uL Lymphocytes # (1.0-4.8) k/uL Monocytes # 1.47 H (0.20-1.00) X 10*3/uL PT (9.0-12.0) sec INR (<1.2) APTT (22.0-30.0) sec BUN 27.6 H (9.0-27.0) mg/dL BUN/Creatinine Ratio 25.09 H (12.00-20.00) Ratio Glucose 174 H (70-110) mg/dL POC Glucose (mg/dL) 175 H (75-99) mg/dL Calcium 8.4 L (8.7-10.3) mg/dL Total Bilirubin 1.50 H (0.30-1.20) mg/dL Alkaline Phosphatase (38-126) U/L Albumin 3.6 L (3.8-4.9) g/dL Albumin/Globulin Ratio 1.24 L (1.60-3.17) g/dL 05/29/21 05/29/21 05/29/21 Range/Units 16:26 16:33 16:33 WBC (4.50-10.00) X 10*3/uL MCV (80.0-97.0) fL RDW 17.4 H (11.5-14.5) % Neutrophils # 8.0 H (1.3-7.7) k/uL Lymphocytes # 0.6 L (1.0-4.8) k/uL Monocytes # (0.20-1.00) X 10*3/uL PT 20.7 H (9.0-12.0) sec INR 2.1 H (<1.2) APTT (22.0-30.0) sec BUN (9.0-27.0) mg/dL BUN/Creatinine Ratio (12.00-20.00) Ratio Glucose (70-110) mg/dL POC Glucose (mg/dL) 241 H (75-99) mg/dL Calcium (8.7-10.3) mg/dL Total Bilirubin (0.30-1.20) mg/dL Alkaline Phosphatase (38-126) U/L Albumin (3.8-4.9) g/dL Albumin/Globulin Ratio (1.60-3.17) g/dL 05/29/21 05/29/21 05/30/21 Range/Units 21:35 23:37 06:20 WBC (4.50-10.00) X 10*3/uL MCV (80.0-97.0) fL RDW (11.5-14.5) % Neutrophils # (1.3-7.7) k/uL Lymphocytes # (1.0-4.8) k/uL Monocytes # (0.20-1.00) X 10*3/uL PT 19.6 H (9.0-12.0) sec INR 2.0 H (<1.2) APTT 142.5 H* (22.0-30.0) sec BUN (9.0-27.0) mg/dL BUN/Creatinine Ratio (12.00-20.00) Ratio Glucose (70-110) mg/dL POC Glucose (mg/dL) 292 H (75-99) mg/dL Calcium (8.7-10.3) mg/dL Total Bilirubin (0.30-1.20) mg/dL Alkaline Phosphatase (38-126) U/L Albumin (3.8-4.9) g/dL Albumin/Globulin Ratio (1.60-3.17) g/dL 05/30/21 05/30/21 05/30/21 Range/Units 06:20 06:20 07:42 WBC (4.50-10.00) X 10*3/uL MCV 100.7 H (80.0-97.0) fL RDW 16.7 H (11.5-14.5) % Neutrophils # (1.3-7.7) k/uL Lymphocytes # 0.7 L (1.0-4.8) k/uL Monocytes # (0.20-1.00) X 10*3/uL PT (9.0-12.0) sec INR (<1.2) APTT (22.0-30.0) sec BUN 31 H (9.0-27.0) mg/dL BUN/Creatinine Ratio (12.00-20.00) Ratio Glucose 215 H (70-110) mg/dL POC Glucose (mg/dL) 186 H (75-99) mg/dL Calcium (8.7-10.3) mg/dL Total Bilirubin 1.7 H (0.30-1.20) mg/dL Alkaline Phosphatase 130 H (38-126) U/L Albumin (3.8-4.9) g/dL Albumin/Globulin Ratio (1.60-3.17) g/dL Microbiology - Last 24 Hours (Table) 05/25/21 12:44 Blood Culture - Preliminary Blood No Growth after 96 hours Assessment and Plan Assessment: 1. Dyspnea secondary to CHF and COPD exacerbation, and pulmonary embolism, 2. History of obstructive sleep apnea 3. Chronic respiratory failure maintained on home O2 4. Bilateral lower extremity cellulitis and edema. Patient started on IV antibiotic infectious disease service is consulted 5. Elevated lactic acid. Patient started on antibiotic for lower infection for cellulitis. Infectious services following 6. Status post pacemaker insertion 7. Chronic atrial fibrillation maintained on Coumadin 8. History of diabetes mellitus type 2 thank scale insulin coverage added hemoglobin A1c 9. History of cardiomyopathy, currently left ventricular function is normal with an ejection fraction of 60-65% 10. History of gout 11. Hypothyroidism 12. Increased swelling to left upper extremity will order venous Doppler to rule out DVT. Venous Doppler negative 13. Acute bilateral pulmonary emboli. Patient placed on heparin drip DVT prophylaxis heparin drip. GI prophylaxis Protonix Pulmonary, cardiology and infectious disease services following IV antibiotic for cellulitis Patient remains on IV diuretics Patient currently on IV heparin for PE
--- NOTE | 2021-05-30 11:58 | P.PN ---
Subjective This is a pleasant 75-year-old male past medical history significant for chronic persistent atrial fibrillation, sick sinus syndrome status post dual chamber permanent pacemaker 2012, hypertension, obesity, type 2 diabetes, pulmonary hypertension, left ventricular hypertrophy, venous insufficiency, lymphedema, former tobacco use 20+ years ago. He follows in the office with Dr. Witt. We have been asked to see in consultation for congestive heart failure. Patient presents emergency department with complaints of shortness of breath, 29lb weig ht gain over 1 month and worsening lower extremity edema. Echocardiogram 05/25 revealed an EF of 6065 percent, RV is mildly enlarged, moderate tricuspid regurgitation, moderate pulmonary hypertension with RVSP of [address] chest 05/27- findings suspicious for dose pulmonary embolism within the left upper lobe and right lower lobe secondary to distal branches. Correlate for CHF left-sided consolidation moderate sized pleural effusion. Small amount of ascites. Patient seen and examined at bedside, his symptoms of shortness of breath have not improved. He has a productive cough, blood tinged sputum. And blood tinged rhinorrhea. He is requiring increased oxygen requirements. Sodium sodium 137, potassium 4.9, BUN 31, serum creatinine 0.9, INR 2.0. Voided 2.3L urine output over the past 24 hours. Patient is currently maintained on IV cefazolin for cellulitis, IV Lasix 40 mg Q8hr, atorvastatin 10 mg daily, Tikosyn 500mcg BID, magnesium oxide, metoprolol tartrate 25 mg twice a day, IV heparin PHYSICAL EXAMINATION Blood pressure 119/77, heart rate afebrile oxygen saturations 95% 15 L high flow nasal cannula CONSTITUTIONAL: No acute distress. HEENT: Neck Supple. mild JVD. CHEST EXAMINATION: Lungs are bilateral rhonci to auscultation. No chest wall tenderness is noted on palpation or with deep breathing. HEART EXAMINATION: Regular rate and rhythm. S1, S2 heard. Systolic ejection murmur noted. ABDOMEN: Soft, nontender. Positive bowel sounds. EXTREMITIES: 2+ peripheral pulses, 3+ bilateral lower extremity edema, left lower extremity redness NEUROLOGIC EXAMINATION: Patient is awake, alert and oriented x3. ASSESSMENT Acute on chronic heart failure, likely diastolic, echocardiogram pending Pulmonary hypertension Acute hypoxic respiratory failure Chronic persistent atrial fibrillation [id number] score 4 on coumadin Sick sinus syndrome status post dual chamber permanent pacemaker 2012 Hypertension Obesity Type 2 diabetes PLAN Continue IV Lasix 40mg Q8hr Continue statin, metoprolol tartrate Monitor I/Os, daily weights Monitor renal function and daily electrolytes Patient will require another anticoagulation, per primary are checking cost of Eliquis. Further recommendations based on clinical course Nurse Practitioner note has been reviewed, I agree with a documented findings and plan of care. Patient was seen and examined. Objective - Vital Signs Vital signs: Vital Signs Temp 97.8 F 05/30/21 07:30 Pulse 90 05/30/21 09:42 Resp 16 05/30/21 07:30 BP 119/77 05/30/21 07:30 Pulse Ox 95 05/30/21 09:19 Intake & Output 05/29/21 05/30/21 05/30/21 18:59 06:59 18:59 Intake Total 224.117 400 Output Total 150 Balance 74.117 400 Intake: Intake, IV Titration 224.117 Amount Heparin Sod,Pork in 0.45% 224.117 NaCl 25,000 unit In 0.45 % NaCl 1 250ml.bag @ 15. 003 UNITS/KG/HR 23 mls/hr IV .[id number] [facility] Rx#: [id number] Oral 400 Output: Urine 150 Other: Voiding Method Bedside Commode Bedside Commode Urinal Urinal # Voids 3 # Bowel Movements 2 - Labs CBC & Chem 7: 05/30/21 06:20 05/30/21 06:20 Labs: Abnormal Lab Results - Last 24 Hours (Table) 05/29/21 05/29/21 05/29/21 Range/Units 08:17 08:17 11:42 WBC 10.03 H (4.50-10.00) X 10*3/uL MCV 97.6 H (80.0-97.0) fL RDW 17.9 H (11.5-14.5) % Neutrophils # (1.3-7.7) k/uL Lymphocytes # (1.0-4.8) k/uL Monocytes # 1.47 H (0.20-1.00) X 10*3/uL PT (9.0-12.0) sec INR (<1.2) APTT (22.0-30.0) sec BUN 27.6 H (9.0-27.0) mg/dL BUN/Creatinine Ratio 25.09 H (12.00-20.00) Ratio Glucose 174 H (70-110) mg/dL POC Glucose (mg/dL) 175 H (75-99) mg/dL Calcium 8.4 L (8.7-10.3) mg/dL Total Bilirubin 1.50 H (0.30-1.20) mg/dL Alkaline Phosphatase (38-126) U/L Albumin 3.6 L (3.8-4.9) g/dL Albumin/Globulin Ratio 1.24 L (1.60-3.17) g/dL 05/29/21 05/29/21 05/29/21 Range/Units 16:26 16:33 16:33 WBC (4.50-10.00) X 10*3/uL MCV (80.0-97.0) fL RDW 17.4 H (11.5-14.5) % Neutrophils # 8.0 H (1.3-7.7) k/uL Lymphocytes # 0.6 L (1.0-4.8) k/uL Monocytes # (0.20-1.00) X 10*3/uL PT 20.7 H (9.0-12.0) sec INR 2.1 H (<1.2) APTT (22.0-30.0) sec BUN (9.0-27.0) mg/dL BUN/Creatinine Ratio (12.00-20.00) Ratio Glucose (70-110) mg/dL POC Glucose (mg/dL) 241 H (75-99) mg/dL Calcium (8.7-10.3) mg/dL Total Bilirubin (0.30-1.20) mg/dL Alkaline Phosphatase (38-126) U/L Albumin (3.8-4.9) g/dL Albumin/Globulin Ratio (1.60-3.17) g/dL 05/29/21 05/29/21 05/30/21 Range/Units 21:35 23:37 06:20 WBC (4.50-10.00) X 10*3/uL MCV (80.0-97.0) fL RDW (11.5-14.5) % Neutrophils # (1.3-7.7) k/uL Lymphocytes # (1.0-4.8) k/uL Monocytes # (0.20-1.00) X 10*3/uL PT 19.6 H (9.0-12.0) sec INR 2.0 H (<1.2) APTT 142.5 H* (22.0-30.0) sec BUN (9.0-27.0) mg/dL BUN/Creatinine Ratio (12.00-20.00) Ratio Glucose (70-110) mg/dL POC Glucose (mg/dL) 292 H (75-99) mg/dL Calcium (8.7-10.3) mg/dL Total Bilirubin (0.30-1.20) mg/dL Alkaline Phosphatase (38-126) U/L Albumin (3.8-4.9) g/dL Albumin/Globulin Ratio (1.60-3.17) g/dL 05/30/21 05/30/21 05/30/21 Range/Units 06:20 06:20 07:42 WBC (4.50-10.00) X 10*3/uL MCV 100.7 H (80.0-97.0) fL RDW 16.7 H (11.5-14.5) % Neutrophils # (1.3-7.7) k/uL Lymphocytes # 0.7 L (1.0-4.8) k/uL Monocytes # (0.20-1.00) X 10*3/uL PT (9.0-12.0) sec INR (<1.2) APTT (22.0-30.0) sec BUN 31 H (9.0-27.0) mg/dL BUN/Creatinine Ratio (12.00-20.00) Ratio Glucose 215 H (70-110) mg/dL POC Glucose (mg/dL) 186 H (75-99) mg/dL Calcium (8.7-10.3) mg/dL Total Bilirubin 1.7 H (0.30-1.20) mg/dL Alkaline Phosphatase 130 H (38-126) U/L Albumin (3.8-4.9) g/dL Albumin/Globulin Ratio (1.60-3.17) g/dL Microbiology - Last 24 Hours (Table) 05/25/21 12:44 Blood Culture - Preliminary Blood No Growth after 96 hours
[2021-05-30 12:02] LABS: Glucose,Whole Blood 242 mg/dL (75-99)
--- NOTE | 2021-05-30 12:14 | P.PN ---
Subjective Progress Note Date: 05/30/21 05/30/2021, the patient is being seen for a follow-up. Last for increased lower extremity edema several episodes of the legs. He did have chronic hypoxemia and he was only on 3 L of home. Subsequently, further investigation revealed that the patient had pulmonary embolism along multiple other comorbidities including morbid obesity, BMI 47.1 and obstructive sleep apnea. The patient remains on oxygen at 15 L per minute nasal cannula with a pulse of 95%. He has COPD. 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 He has a permanent pacemaker in place. The patient developed suspicious bilateral pu lmonary embolism while he was on Coumadin. He was therapeutic on Coumadin. He was able to as a failure to Coumadin and the patient was switched to heparin drip and was taken warfarin. Objective - Vital Signs Vital signs: Vital Signs Temp 97.8 F 05/30/21 07:30 Pulse 96 05/30/21 11:53 Resp 16 05/30/21 07:30 BP 119/77 05/30/21 07:30 Pulse Ox 95 05/30/21 09:19 Intake & Output 05/29/21 05/30/21 05/30/21 18:59 06:59 18:59 Intake Total 224.117 400 Output Total 150 Balance 74.117 400 Intake: Intake, IV Titration 224.117 Amount Heparin Sod,Pork in 0.45% 224.117 NaCl 25,000 unit In 0.45 % NaCl 1 250ml.bag @ 15. 003 UNITS/KG/HR 23 mls/hr IV .[id number] [facility] Rx#: [id number] Oral 400 Output: Urine 150 Other: Voiding Method Bedside Commode Bedside Commode Urinal Urinal # Voids 3 # Bowel Movements 2 - Exam GENERAL EXAM: Alert, hence, 75-year-old morbidly obese white male, on 15 L of oxygen with a pulse ox of 92%, comfortable in no apparent distress. HEAD: Normocephalic/atraumatic. EYES: Normal reaction of pupils, equal size. Conjunctiva pink, sclera white. NOSE: Clear with pink turbinates. THROAT: No erythema or exudates. NECK: No masses, no JVD, no thyroid enlargement, no adenopathy. CHEST: No chest wall deformity. Symmetrical expansion. LUNGS: Equal air entry with diminished breath sounds, with some scattered whe ezes and rhonchi CVS: Regular rate and rhythm, normal S1 and S2, no gallops, no murmurs, no rubs ABDOMEN: Soft, nontender. No hepatosplenomegaly, normal bowel sounds, no guarding or rigidity. EXTREMITIES: No clubbing, no edema, no cyanosis, 2+ pulses and upper and lower extremities. MUSCULOSKELETAL: Muscle strength and tone normal. SPINE: No scoliosis or deformity SKIN: No rashes CENTRAL NERVOUS SYSTEM: Alert and oriented -3. No focal deficits, tone is normal in all 4 extremities. PSYCHIATRIC: Alert and oriented -3. Appropriate affect. Intact judgment and insight. - Labs CBC & Chem 7: 05/30/21 06:20 05/30/21 06:20 Labs: Abnormal Lab Results - Last 24 Hours (Table) 05/29/21 05/29/21 05/29/21 Range/Units 08:17 08:17 16:26 WBC 10.03 H (4.50-10.00) X 10*3/uL MCV 97.6 H (80.0-97.0) fL RDW 17.9 H (11.5-14.5) % Neutrophils # (1.3-7.7) k/uL Lymphocytes # (1.0-4.8) k/uL Monocytes # 1.47 H (0.20-1.00) X 10*3/uL PT (9.0-12.0) sec INR (<1.2) APTT (22.0-30.0) sec BUN 27.6 H (9.0-27.0) mg/dL BUN/Creatinine Ratio 25.09 H (12.00-20.00) Ratio Glucose 174 H (70-110) mg/dL POC Glucose (mg/dL) 241 H (75-99) mg/dL Calcium 8.4 L (8.7-10.3) mg/dL Total Bilirubin 1.50 H (0.30-1.20) mg/dL Alkaline Phosphatase (38-126) U/L Albumin 3.6 L (3.8-4.9) g/dL Albumin/Globulin Ratio 1.24 L (1.60-3.17) g/dL 05/29/21 05/29/21 05/29/21 Range/Units 16:33 16:33 21:35 WBC (4.50-10.00) X 10*3/uL MCV (80.0-97.0) fL RDW 17.4 H (11.5-14.5) % Neutrophils # 8.0 H (1.3-7.7) k/uL Lymphocytes # 0.6 L (1.0-4.8) k/uL Monocytes # (0.20-1.00) X 10*3/uL PT 20.7 H (9.0-12.0) sec INR 2.1 H (<1.2) APTT (22.0-30.0) sec BUN (9.0-27.0) mg/dL BUN/Creatinine Ratio (12.00-20.00) Ratio Glucose (70-110) mg/dL POC Glucose (mg/dL) 292 H (75-99) mg/dL Calcium (8.7-10.3) mg/dL Total Bilirubin (0.30-1.20) mg/dL Alkaline Phosphatase (38-126) U/L Albumin (3.8-4.9) g/dL Albumin/Globulin Ratio (1.60-3.17) g/dL 05/29/21 05/30/21 05/30/21 Range/Units 23:37 06:20 06:20 WBC (4.50-10.00) X 10*3/uL MCV 100.7 H (80.0-97.0) fL RDW 16.7 H (11.5-14.5) % Neutrophils # (1.3-7.7) k/uL Lymphocytes # 0.7 L (1.0-4.8) k/uL Monocytes # (0.20-1.00) X 10*3/uL PT 19.6 H (9.0-12.0) sec INR 2.0 H (<1.2) APTT 142.5 H* (22.0-30.0) sec BUN (9.0-27.0) mg/dL BUN/Creatinine Ratio (12.00-20.00) Ratio Glucose (70-110) mg/dL POC Glucose (mg/dL) (75-99) mg/dL Calcium (8.7-10.3) mg/dL Total Bilirubin (0.30-1.20) mg/dL Alkaline Phosphatase (38-126) U/L Albumin (3.8-4.9) g/dL Albumin/Globulin Ratio (1.60-3.17) g/dL 05/30/21 05/30/21 05/30/21 Range/Units 06:20 07:42 12:01 WBC (4.50-10.00) X 10*3/uL MCV (80.0-97.0) fL RDW (11.5-14.5) % Neutrophils # (1.3-7.7) k/uL Lymphocytes # (1.0-4.8) k/uL Monocytes # (0.20-1.00) X 10*3/uL PT (9.0-12.0) sec INR (<1.2) APTT (22.0-30.0) sec BUN 31 H (9.0-27.0) mg/dL BUN/Creatinine Ratio (12.00-20.00) Ratio Glucose 215 H (70-110) mg/dL POC Glucose (mg/dL) 186 H 242 H (75-99) mg/dL Calcium (8.7-10.3) mg/dL Total Bilirubin 1.7 H (0.30-1.20) mg/dL Alkaline Phosphatase 130 H (38-126) U/L Albumin (3.8-4.9) g/dL Albumin/Globulin Ratio (1.60-3.17) g/dL Microbiology - Last 24 Hours (Table) 05/25/21 12:44 Blood Culture - Preliminary Blood No Growth after 96 hours Assessment and Plan Plan: #1. Acute hypoxic respiratory failure, multifactorial, related to acute pulmonary emboli, acute cor pulmonale with right-sided heart failure, pulmonary hypertension, obstructive sleep apnea, and possible pickwickian syndrome. The p atient was on 15 L about 2 by nasal cannula. The patient was not found to 14 L. His hypoxemia is multifactorial. The pulmonary embolism businesses suspicious and probably not is the biggest contributing factors. I do suspect that the patient may be in fluid overload. He has some moderate-sized left-sided pleural effusion on the CT angiogram. The CT angiogram showed suspicious pulmonary embolism and the patient was able to as a failure to warfarin and the patient is currently on IV heparin. #2. Acute pulmonary emboli, despite therapeutic INR on Coumadin, possible failure of anticoagulation #3. Morbid obesity #4. History of obstructive sleep apnea on home CPAP #5. History of chronic atrial fibrillation on Coumadin #6. Status post pacemaker insertion #7. History of diabetes no this type II #8. History of hyperlipidemia #9. History of cardiomyopathy #10. History of arthritis #11. History of gout #12. Prior history of MRSA and VRE infections #13. Lifelong nonsmoker Plan: Patient is still requiring high flow oxygen, currently on 14 L Continue with diuretics cardiology to 40 mg every 8 hours and the patient is responding nicely with a negative fluid balance of at least 2 L yesterday. IV steroids We'll stop the Coumadin, start the patient on high intensity heparin infusion There is possibly of anticoagulation failure, as the patient has developed acute pulmonary emboli while on Coumadin was discontinued IV heparin was switched this patient to oral Eliquis With IV cefazolin IV cefazolin regarding his lower extremity cellulitis We'll continue to follow his clinical course
[2021-05-30] MEDS ORDERED: APIXABAN 5 MG TAB PO SCH (12:15)
[2021-05-30] MEDS ORDERED: HEPARIN SODIUM 1,000 UN/ML (10ML VL) IV PRN (12:17)
--- NOTE | 2021-05-30 13:54 | US ---
EXAMINATION TYPE: US chest DATE OF EXAM: 05/30/2021 COMPARISON: NONE CLINICAL HISTORY: pleural effusion. SOB TECHNIQUE: Targeted ultrasound of the posterior lower bilateral hemithoraces EXAM MEASUREMENTS: Right Pleural Effusion pocket size: 0 cm Left Pleural Effusion pocket size: 7.1 cm Left skin surface to fluid distance: 5.3 cm Left side marked for possible thoracentesis outside the dept. Lung tissue seen in fluid pocket. Pulmonologists are able to review the images in the patient?s EMR. IMPRESSIONS: 1. There is a small left pleural effusion
[2021-05-30 16:29] LABS: Glucose,Whole Blood 329 mg/dL (75-99)
[2021-05-30 20:26] LABS: Glucose,Whole Blood 319 mg/dL (75-99)
[2021-05-30] MEDS: CEPHALEXIN 500 MG CAP PO SCH (22:27)
--- NOTE | 2021-05-30 22:43 | PN ---
PROGRESS NOTE DATE OF SERVICE: 05/30/2021 REASON FOR FOLLOWUP: Bilateral lower extremity cellulitis. INTERIM HISTORY: The patient is afebrile, has been complaining of shortness of breath. The patient did have a cough and some hemoptysis. No nausea, no vomiting. No abdominal pain. The patient did have swelling in the legs. However, overall redness has resolved. Currently with no blisters or any drainage. PHYSICAL EXAMINATION: Blood pressure is 123/75, pulse of 95, temperature 98.2. He is 91% on 4 L nasal cannula. General description is an elderly male up in the bed in no distress. Respiratory system: Unlabored breathing, decreased intensity of breath sounds. No wheeze. Heart S1, S2. Regular rate and rhythm. Abdomen soft, no tenderness. Legs with swelling. Redness has resolved. DIAGNOSTIC IMPRESSION AND PLAN: Patient with bilateral lower extremity swelling in this patient who did have evidence of fluid overload with concern for cellulitis. Overall improvement on cefazolin. Transition to a short course of oral Keflex. May benefit from Drew wrap to keep the swelling down. Continue with supportive care. MMODL / IJN: [id number] /
[2021-05-31] MEDS: LEVOTHYROXINE 50 MCG TAB PO SCH (05:36)
[2021-05-31] MEDS: methylPREDNISolone SOD SUCCI 40 MG/ML 1 ML VIAL IV SCH ×3 (05:36→22:59)
[2021-05-31 07:01] LABS: Glucose,Whole Blood 171 mg/dL (75-99)
[2021-05-31] MEDS: PANTOPRAZOLE 40 MG TABLET PO SCH (08:33)
[2021-05-31] MEDS: INSULIN ASPART (NovoLOG) 100 UNIT/ML VIAL SQ SCH ×4 (08:41→22:59)
[2021-05-31] MEDS: FUROSEMIDE 10 MG/ML 4 ML VIAL IV SCH ×3 (08:43→23:18)
--- NOTE | 2021-05-31 09:10 | XR ---
EXAMINATION TYPE: XR chest 1V portable DATE OF EXAM: 05/31/2021 COMPARISON: Chest x-ray 05/26/2021, CT chest 05/27/2021 HISTORY: Shortness of breath TECHNIQUE: Single frontal view of the chest is obtained. FINDINGS: There is a generator in left pectoral region, lead in the right atrium and ventricle. Hear t remains enlarged. Aorta is dense. There is no evident pneumothorax. Basilar density persists, the l eft hemidiaphragm is obscured. IMPRESSION: Findings are similar to prior exam. Cardiomegaly, there may be left lower lobe atelectas is versus pneumonia, associated effusion greater than right, there are prominent epicardial fat pads, correlate for possible pulmonary artery hypertension
[2021-05-31 09:34] VITALS: BMI 48.6
[2021-05-31] MEDS: IPRATROPIUM-ALBUTEROL 3 ML NEB INHALATION SCH ×4 (09:41→20:56)
[2021-05-31] MEDS: BUDESONIDE 1 MG/2 ML NEBU INHALATION SCH ×2 (09:41→20:56)
[2021-05-31] MEDS: MULTIVITAMINS, THERA 1 EACH TAB PO SCH (10:01)
[2021-05-31] MEDS: DOCUSATE 100 MG CAP PO SCH ×2 (10:01→22:56)
[2021-05-31] MEDS: ATORVASTATIN 10 MG TAB PO SCH (10:02)
[2021-05-31] MEDS: METOPROLOL TARTRATE 25 MG TAB PO SCH ×2 (10:02→22:58)
[2021-05-31] MEDS: MAGNESIUM OXIDE 400 MG TAB PO SCH (10:03)
[2021-05-31] MEDS: DOFETILIDE 500 MCG CAP PO SCH ×2 (10:04→22:58)
[2021-05-31] MEDS: allopurinoL 300 MG TAB PO SCH (10:04)
[2021-05-31] MEDS: CEPHALEXIN 500 MG CAP PO SCH ×3 (10:05→22:59)
[2021-05-31] MEDS: ACETAMINOPHEN TAB 325 MG TAB PO PRN ×3 (10:05→23:13)
[2021-05-31 10:14] LABS: Basophils # (A) 0.01 X 10*3/uL (0.00-0.10); Basophils % (A) 0.1 %; Eosinophils # (A) 0 X 10*3/uL (0.04-0.35); Eosinophils % (A) 0 %; HCT 45.9 % (39.6-50.0); HGB 14.7 g/dL (13.0-17.0); Lymphocytes # (A) 0.82 X 10*3/uL (0.90-5.00); Lymphocytes % (A) 7.4 %; MCH 30.6 pg (27.0-32.0); MCV 95.4 fL (80.0-97.0); Mean Platelet Volume 11.4 fL (9.5-12.2); Monocytes # (A) 0.59 X 10*3/uL (0.20-1.00); Monocytes % (A) 5.4 %; Neutrophils # (A) 9.51 X 10*3/uL (1.80-7.70); Neutrophils % (A) 86.3 %; Platelet Count 198 X 10*3/uL (140-440); RBC 4.81 X 10*6/uL (4.40-5.60); RDW 17.6 % (11.5-14.5); WBC 11.02 X 10*3/uL (4.50-10.00)
[2021-05-31 11:31] LABS: Glucose,Whole Blood 203 mg/dL (75-99)
--- NOTE | 2021-05-31 11:59 | P.PN ---
Subjective This is a pleasant 75-year-old male past medical history significant for chronic persistent atrial fibrillation, sick sinus syndrome status post dual chamber permanent pacemaker 2012, hypertension, obesity, type 2 diabetes, pulmonary hypertension, left ventricular hypertrophy, venous insufficiency, lymphedema, former tobacco use 20+ years ago. He follows in the office with Dr. Witt. We have been asked to see in consultation for congestive heart failure. Patient presents emergency department with complaints of shortness of breath, 29lb weig ht gain over 1 month and worsening lower extremity edema. Echocardiogram 05/25 revealed an EF of 6065 percent, RV is mildly enlarged, moderate tricuspid regurgitation, moderate pulmonary hypertension with RVSP of [address] chest 05/27- findings suspicious for acute pulmonary embolism within the left upper lobe and right lower lobe secondary to distal branches. Correlate for CHF left-sided consolidation moderate sized pleural effusion. Small amount of ascites. Patient seen and examined at bedside, his symptoms of shortness of breath have not improved. He continues to have blood tinged sputum. And blood tinged rhinorrhea. He is requiring increased oxygen requirements, 14-15L high flow gayla al cannula. Voided 750mL urine output over the past 24 hours. Labs: WBC 11, hemoglobin 14, platelets 198, CMP pending Meds: Patient currently maintained on atorvastatin 10 mg daily, IV Lasix 40 mg Q8hr, atorvastatin 10 mg daily, Tikosyn 500mcg BID, magnesium oxide, metoprolol tartrate 25 mg twice a day, IV heparin, Keflex 500mg TID PHYSICAL EXAMINATION Blood pressure 113/69, HR 72 , afebrile, oxygen saturation is 91% on 12 L high flow nasal cannula CONSTITUTIONAL: No acute distress. HEENT: Neck Supple. mild JVD. CHEST EXAMINATION: Lungs are bilateral rhonci to auscultation. No chest wall tenderness is noted on palpation or with deep breathing. HEART EXAMINATION: Regular rate and rhythm. S1, S2 heard. Systolic ejection murmur noted. ABDOMEN: Soft, nontender. Positive bowel sounds. EXTREMITIES: 2+ peripheral pulses, 3+ bilateral lower extremity edema, left lower extremity redness NEUROLOGIC EXAMINATION: Patient is awake, alert and oriented x3. ASSESSMENT Acute on chronic diastolic heart failure Acute pulmonary emboli , despite therapeutic INR on Coumadin, failed on coumadin and patient transition to IV heparin Pulmonary hypertension Obstructive sleep apnea Moderate left sided pleural effusion Acute hypoxic respiratory failure Chronic persistent atrial fibrillation [id number] score 4 on coumadin outpatient Sick sinus syndrome status post dual chamber permanent pacemaker 2012 Hypertension Morbid obesity BMI 48 Type 2 diabetes Bilateral lower extremity cellulitis, ID following, switched the patient to Keflex PLAN Continue IV Lasix 40mg Q8hr Continue statin, metoprolol tartrate Monitor I/Os, daily weights Monitor renal function and daily electrolytes Patient will require another anticoagulation, per primary are checking cost of Eliquis. Not transitioning to PO Eliquis due to possible thoracentesis with pulmonary. Recommend switching to PO anticoagulation when able. Further recommendations based on clinical course Nurse Practitioner note has been reviewed, I agree with a documented findings and plan of care. Patient was seen and examined. Objective - Vital Signs Vital signs: Vital Signs Temp 97.7 F 05/31/21 07:46 Pulse 100 05/31/21 09:57 Resp 18 05/31/21 07:46 BP 113/69 05/31/21 07:46 Pulse Ox 91 L 05/31/21 09:42 Intake & Output 05/30/21 05/31/21 05/31/21 18:59 06:59 18:59 Intake Total 401.334 107.95 172.25 Output Total 600 Balance -198.666 107.95 172.25 Weight 158.2 kg 158.2 kg Intake: Intake, IV Titration 1.334 107.95 172.25 Amount Heparin Sod,Pork in 0.45% 1.334 107.95 172.25 NaCl 25,000 unit In 0.45 % NaCl 1 250ml.bag @ 13. 05 UNITS/KG/HR 20.006 mls /hr IV .[id number] [facility] Rx#: [id number] Oral 400 Output: Urine 600 Other: Voiding Method Bedside Commode Bedside Commode Urinal Urinal # Voids 1 # Bowel Movements 1 - Labs CBC & Chem 7: 05/31/21 06:46 05/30/21 06:20 Labs: Abnormal Lab Results - Last 24 Hours (Table) 05/30/21 05/30/21 05/30/21 Range/Units 11:48 12:01 16:25 WBC (4.50-10.00) X 10*3/uL RDW (11.5-14.5) % Absolute Nucleated RBC (0.00-0.00) X 10*3/uL Immature Gran # (0.00-0.04) X 10*3/uL Neutrophils # (1.80-7.70) X 10*3/uL Lymphocytes # (0.90-5.00) X 10*3/uL Eosinophils # (0.04-0.35) X 10*3/uL NRBC/100 WBC Diff (0.0-0.0) /100 WBCS APTT >200.0 H* (22.0-30.0) sec POC Glucose (mg/dL) 242 H 329 H (75-99) mg/dL 05/30/21 05/30/21 05/31/21 Range/Units 18:30 20:24 06:46 WBC 11.02 H (4.50-10.00) X 10*3/uL RDW 17.6 H (11.5-14.5) % Absolute Nucleated RBC 0.02 H (0.00-0.00) X 10*3/uL Immature Gran # 0.09 H (0.00-0.04) X 10*3/uL Neutrophils # 9.51 H (1.80-7.70) X 10*3/uL Lymphocytes # 0.82 L (0.90-5.00) X 10*3/uL Eosinophils # 0 L (0.04-0.35) X 10*3/uL NRBC/100 WBC Diff 0.2 H (0.0-0.0) /100 WBCS APTT 88.5 H (22.0-30.0) sec POC Glucose (mg/dL) 319 H (75-99) mg/dL 05/31/21 05/31/21 05/31/21 Range/Units 06:46 06:46 11:28 WBC (4.50-10.00) X 10*3/uL RDW (11.5-14.5) % Absolute Nucleated RBC (0.00-0.00) X 10*3/uL Immature Gran # (0.00-0.04) X 10*3/uL Neutrophils # (1.80-7.70) X 10*3/uL Lymphocytes # (0.90-5.00) X 10*3/uL Eosinophils # (0.04-0.35) X 10*3/uL NRBC/100 WBC Diff (0.0-0.0) /100 WBCS APTT 70.0 H (22.0-30.0) sec POC Glucose (mg/dL) 171 H 203 H (75-99) mg/dL Microbiology - Last 24 Hours (Table) 05/25/21 12:44 Blood Culture - Preliminary Blood No Growth after 120 hours
--- NOTE | 2021-05-31 12:19 | P.PN ---
Subjective Progress Note Date: 05/31/21 05/30/2021, the patient is being seen for a follow-up. Last for increased lower extremity edema several episodes of the legs. He did have chronic hypoxemia and he was only on 3 L of home. Subsequently, further investigation revealed that the patient had pulmonary embolism along multiple other comorbidities including morbid obesity, BMI 47.1 and obstructive sleep apnea. The patient remains on oxygen at 15 L per minute nasal cannula with a pulse of 95%. He has COPD. 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 He has a permanent pacemaker in place. The patient developed suspicious bilateral pu lmonary embolism while he was on Coumadin. He was therapeutic on Coumadin. He was able to as a failure to Coumadin and the patient was switched to heparin drip and was taken warfarin. 05/31/2021 and seeing this patient for a follow-up. Is on 12 L of oxygen with a pulse ox of 96% and I think there is more room for weaning down the oxygen flow. Note that yesterday he was on 15 L of oxygen by nasal cannula. I noted his CAT scan of the chest and there was a moderate-sized left-sided pleural effusion. Based on that, I ordered an ultrasound of the chest that showed a 7.1 cm pocket of pleural effusion on the left. Ultrasound markings have been obtained. Meanwhile, the clinically, the patient is feeling the same. He is off anticoagulation with warfarin and currently is on IV heparin. He was thought to have failed Coumadin therapy. I am still considering a thoracentesis on this patient. Meanwhile, his previous therapeutic at 70, white cell count of 11 with a hemoglobin of 14.7. He is afebrile. In terms of treatment, he is on Lasix 40 mg IV every 8 hours. He is on IV Solu-Medrol that was tapered down to 40 mg every 8 hours. He remains on bronchodilators. The overall fluid balance has been negative in the order of 90 mL over the past 24 hours and the reliability of this number is questionable as the patient does not have a Bernal catheter for now. Strict input output measurement is needed. Objective - Vital Signs Vital signs: Vital Signs Temp 97.7 F 05/31/21 07:46 Pulse 100 05/31/21 09:57 Resp 18 05/31/21 07:46 BP 113/69 11/09/21 07:46 Pulse Ox 91 L 05/31/21 09:42 Intake & Output 05/30/21 05/31/21 05/31/21 18:59 06:59 18:59 Intake Total 401.334 107.95 172.25 Output Total 600 Balance -198.666 107.95 172.25 Weight 158.2 kg 158.2 kg Intake: Intake, IV Titration 1.334 107.95 172.25 Amount Heparin Sod,Pork in 0.45% 1.334 107.95 172.25 NaCl 25,000 unit In 0.45 % NaCl 1 250ml.bag @ 13. 05 UNITS/KG/HR 20.006 mls /hr IV .[id number] [facility] Rx#: [id number] Oral 400 Output: Urine 600 Other: Voiding Method Bedside Commode Bedside Commode Urinal Urinal # Voids 1 # Bowel Movements 1 - Exam GENERAL EXAM: Alert, hence, 75-year-old morbidly obese white male, on 12 L of oxygen with a pulse ox of 94%, comfortable in no apparent distress. HEAD: Normocephalic/atraumatic. EYES: Normal reaction of pupils, equal size. Conjunctiva pink, sclera white. NOSE: Clear with pink turbinates. THROAT: No erythema or exudates. NECK: No masses, no JVD, no thyroid enlargement, no adenopathy. CHEST: No chest wall deformity. Symmetrical expansion. LUNGS: Equal air entry with diminished breath sounds, with some scattered wheezes and rhonchi CVS: Regular rate and rhythm, normal S1 and S2, no gallops, no murmurs, no rubs ABDOMEN: Soft, nontender. No hepatosplenomegaly, normal bowel sounds, no guarding or rigidity. EXTREMITIES: No clubbing, no edema, no cyanosis, 2+ pulses and upper and lower extremities. MUSCULOSKELETAL: Muscle strength and tone normal. SPINE: No scoliosis or deformity SKIN: No rashes CENTRAL NERVOUS SYSTEM: Alert and oriented -3. No focal deficits, tone is normal in all 4 extremities. PSYCHIATRIC: Alert and oriented -3. Appropriate affect. Intact judgment and insight. - Labs CBC & Chem 7: 05/31/21 06:46 05/30/21 06:20 Labs: Abnormal Lab Results - Last 24 Hours (Table) 05/30/21 05/30/21 05/30/21 Range/Units 11:48 16:25 18:30 WBC (4.50-10.00) X 10*3/uL RDW (11.5-14.5) % Absolute Nucleated RBC (0.00-0.00) X 10*3/uL Immature Gran # (0.00-0.04) X 10*3/uL Neutrophils # (1.80-7.70) X 10*3/uL Lymphocytes # (0.90-5.00) X 10*3/uL Eosinophils # (0.04-0.35) X 10*3/uL NRBC/100 WBC Diff (0.0-0.0) /100 WBCS APTT >200.0 H* 88.5 H (22.0-30.0) sec POC Glucose (mg/dL) 329 H (75-99) mg/dL 05/30/21 05/31/21 05/31/21 Range/Units 20:24 06:46 06:46 WBC 11.02 H (4.50-10.00) X 10*3/uL RDW 17.6 H (11.5-14.5) % Absolute Nucleated RBC 0.02 H (0.00-0.00) X 10*3/uL Immature Gran # 0.09 H (0.00-0.04) X 10*3/uL Neutrophils # 9.51 H (1.80-7.70) X 10*3/uL Lymphocytes # 0.82 L (0.90-5.00) X 10*3/uL Eosinophils # 0 L (0.04-0.35) X 10*3/uL NRBC/100 WBC Diff 0.2 H (0.0-0.0) /100 WBCS APTT (22.0-30.0) sec POC Glucose (mg/dL) 319 H 171 H (75-99) mg/dL 05/31/21 05/31/21 Range/Units 06:46 11:28 WBC (4.50-10.00) X 10*3/uL RDW (11.5-14.5) % Absolute Nucleated RBC (0.00-0.00) X 10*3/uL Immature Gran # (0.00-0.04) X 10*3/uL Neutrophils # (1.80-7.70) X 10*3/uL Lymphocytes # (0.90-5.00) X 10*3/uL Eosinophils # (0.04-0.35) X 10*3/uL NRBC/100 WBC Diff (0.0-0.0) /100 WBCS APTT 70.0 H (22.0-30.0) sec POC Glucose (mg/dL) 203 H (75-99) mg/dL Microbiology - Last 24 Hours (Table) 05/25/21 12:44 Blood Culture - Preliminary Blood No Growth after 120 hours Assessment and Plan Plan: #1. Acute hypoxic respiratory failure, multifactorial, related to acute pulmonary emboli, acute cor pulmonale with right-sided heart failure, pulmonary hypertension, obstructive sleep apnea, and possible pickwickian syndrome. The patient was on 12 L by nasal cannula. The patient was not found to 14 L. His hypoxemia is multifactorial. The pulmonary embolism businesses suspicious and probably not is the biggest contributing factors. I do suspect that the patient may be in fluid overload. He has some moderate-sized left-sided pleural eff usion on the CT angiogram. The CT angiogram showed suspicious pulmonary embolism and the patient was able to as a failure to warfarin and the patient is currently on IV heparin. #2. Acute pulmonary emboli, despite therapeutic INR on Coumadin, possible failure of anticoagulation #3. Morbid obesity #4. History of obstructive sleep apnea on home CPAP #5. History of chronic atrial fibrillation on Coumadin #6. Status post pacemaker insertion #7. History of diabetes no this type II #8. History of hyperlipidemia #9. History of cardiomyopathy #10. History of arthritis #11. History of gout #12. Prior history of MRSA and VRE infections #13. Lifelong nonsmoker Plan: Patient is still requiring high flow oxygen, currently on 12 L Continue with diuretics cardiology to 40 mg every 8 hours and monitor input output IV steroids We'll stop the Coumadin, start the patient on high intensity heparin infusion 7.1 cm pocket in the left chest and this was noted on ultrasound. We'll consider a thoracentesis There is possibly of anticoagulation failure, as the patient has developed acute pulmonary emboli while on Coumadin was discontinued IV heparin was switched this patient to oral Eliquis. For now the patient is on IV heparin. We'll stop the IV heparin will come back in 2 hours and proceed with the procedure. With IV cefazolin IV cefazolin regarding his lower extremity cellulitis We'll continue to follow his clinical course
[2021-05-31 16:04] LABS: Albumin 3.9 g/dL (3.8-4.9); Albumin/Globulin Ratio 1.2 (1.60-3.17); Anion Gap 14.1 mmol/L (4.00-12.00); BUN/Creat Ratio 31.36 Ratio (12.00-20.00); Calcium 9.1 mg/dL (8.7-10.3); Carbon Dioxide 23.1 mmol/L (21.6-31.8); Globulin 3.3 g/dL (1.6-3.3); Non-African American GFR(CKD) 60.4 (60.0-200.0); Potassium 4.8 mmol/L (3.5-5.5); Total Bilirubin 1.1 mg/dL (0.30-1.20); Total Protein 7.2 g/dL (6.2-8.2)
[2021-05-31 16:43] LABS: Glucose,Whole Blood 288 mg/dL (75-99)
--- NOTE | 2021-05-31 17:14 | P.PN ---
Subjective Progress Note Date: 05/31/21 Tristian Galloway is a 75-year-old male patient of Dr. Sampson who presented with ongoing shortness of breath and weight gain. Patient reports he's had increasing shortness of breath over the past month with episodes of falling and significant weight gain. Patient is maintained on home O2 for chronic hypoxic respiratory failure but states that the shortness of breath has been increasing. Patient does have a past medical history of A. fib in which she is maintained on Coumadin, COPD, diabetes mellitus, hyperlipidemia and pacemaker. Chest x-ray completed in ER showing cardiomegaly posterior pleural effusion. BNP 608. Troponin was normal lactic acid elevated at 2.9 COVID-19 was negative. Patient has been started on updraft breathing treatments IV Lasix and sublingual insulin for cellulitis. Pulmonary, cardiology and infectious disease services have been consulted. This time patient is resting currently in bed on BiPAP machine. Patient does still complain of some shortness breath. Patient denies any chest pain. Patient denies nausea vomiting or diarrhea. Patient denies any urinary burning or frequency On 05/26/2021 patient was seen and examined on his oriented 3 in no apparent distress. Patient maintained on IV Lasix and IV antibiotics for cellulitis. Pulmonary cardiology and infectious disease service following this time patient reports improvement. Patient denies chest pain or shortness breath. Patient denies nausea vomiting or diarrhea. Patient denies any urinary burning or frequency On 05/27/2021 patient alert and oriented 3. Patient reports significant edema and pain to left upper extremity will order venous Doppler to rule out DVT likely secondary from infiltration of IV. Patient remains on IV Lasix and capsule for cellulitis. Patient currently on 15 L high flow nasal cannula. Pulmonary cardiology and infectious disease services following. On 05/28/2021 patient was seen and examined on the medical floor he is alert and oriented 3 in no apparent distress, he is still complaining of shortness of breath and is maintained on oxygen 10 L via nasal cannula, he is complaining of occasional cough without sputum production, he is complaining of constipation, otherwise he denies any complaints, there is no fever or chills no headache or dizziness no chest pain no nausea or vomiting no abdominal pain no diarrhea no blood in the stool no burning with urination no frequency or urgency no hematuria Patient underwent CT angiogram of the chest that was suspicious for left upper lobe pulmonary embolism, there was evidence also of left sided consolidation and moderate sized pleural effusion, and evidence of ascites. Left upper extremity Doppler was negative for DVT Patient is maintained on Coumadin his INR is therapeutic at 2.5 Echocardiogram revealed normal left ventricular systolic function with an ejection fraction of 60-65% On 05/29/2021 patient is alert and oriented 3. Patient currently on high flow 15 L remains on IV diuretics. Patient remains on IV antibiotics for cellulitis. INR therapeutic at 2.3. Pulmonary, cardiology and infectious disease services are following. Repeat labs will be ordered for a.m. An 05/30/2021 patient alert and oriented 3. Patient has been switched over to IV heparin due to development of PE while on Coumadin. Patient will need to be on different agent for anticoagulation. Patient remains on high flow nasal cannula 15 L and IV diuretics. She denies nausea vomiting or diarrhea. Patient denies any urinary burning or frequency. On 05/31/2021 patient was seen and examined on the medical floor he is alert and oriented 3 in no apparent distress, he is maintained on oxygen 12 L via nasal cannula, there is no fever or chills no headache or dizziness no chest pain no nausea or vomiting no abdominal pain no diarrhea no blood in stool no burning with urination no frequency or urgency no hematuria. He is currently maintained on IV heparin and is off Coumadin, awaiting further recommendation from pulmonary in regard to thoracentesis, continue management with IV Lasix currently he is on further 40 mg twice a day. Objective - Vital Signs Vital signs: Vital Signs Temp 97.7 F 05/31/21 07:46 Pulse 100 05/31/21 09:42 Resp 18 05/31/21 07:46 BP 113/69 05/31/21 07:46 Pulse Ox 91 L 05/31/21 09:42 Intake & Output 05/30/21 05/31/21 05/31/21 18:59 06:59 18:59 Intake Total 401.334 107.95 172.25 Output Total 600 Balance -198.666 107.95 172.25 Weight 158.2 kg 158.2 kg Intake: Intake, IV Titration 1.334 107.95 172.25 Amount Heparin Sod,Pork in 0.45% 1.334 107.95 172.25 NaCl 25,000 unit In 0.45 % NaCl 1 250ml.bag @ 13. 05 UNITS/KG/HR 20.006 mls /hr IV .[id number] [facility] Rx#: [id number] Oral 400 Output: Urine 600 Other: Voiding Method Bedside Commode Bedside Commode Urinal Urinal # Voids 1 # Bowel Movements 1 - Exam Head normocephalic and atraumatic Neck supple, no JVD no goiter Lungs clear to auscultation bilaterally no wheezing or crackles Heart regular rate and rhythm S1-S2, no rub or gallop Abdomen is soft nontender nondistended positive bowel sounds no hepatosplenomegaly Extremities +3 lower extremity edema with erythema Neuro alert and orientated x 3, no gross neurological deficit - Labs CBC & Chem 7: 05/31/21 06:46 05/31/21 06:46 Labs: Abnormal Lab Results - Last 24 Hours (Table) 05/30/21 05/30/21 05/30/21 Range/Units 11:48 12:01 16:25 APTT >200.0 H* (22.0-30.0) sec POC Glucose (mg/dL) 242 H 329 H (75-99) mg/dL 05/30/21 05/30/21 05/31/21 Range/Units 18:30 20:24 06:46 APTT 88.5 H (22.0-30.0) sec POC Glucose (mg/dL) 319 H 171 H (75-99) mg/dL 05/31/21 Range/Units 06:46 APTT 70.0 H (22.0-30.0) sec POC Glucose (mg/dL) (75-99) mg/dL Microbiology - Last 24 Hours (Table) 05/25/21 12:44 Blood Culture - Preliminary Blood No Growth after 120 hours Assessment and Plan Assessment: 1. Dyspnea secondary to CHF and COPD exacerbation, and pulmonary embolism, 2. History of obstructive sleep apnea 3. Chronic respiratory failure maintained on home O2 4. Bilateral lower extremity cellulitis and edema. Patient started on IV antibiotic infectious disease service is consulted 5. Elevated lactic acid. Patient started on antibiotic for lower infection for cellulitis. Infectious services following 6. Status post pacemaker insertion 7. Chronic atrial fibrillation maintained on Coumadin 8. History of diabetes mellitus type 2 thank scale insulin coverage added hemoglobin A1c 9. History of cardiomyopathy, currently left ventricular function is normal with an ejection fraction of 60-65% 10. History of gout 11. Hypothyroidism 12. Increased swelling to left upper extremity will order venous Doppler to rule out DVT. Venous Doppler negative 13. Acute bilateral pulmonary emboli. Patient placed on heparin drip DVT prophylaxis heparin drip. GI prophylaxis Protonix Pulmonary, cardiology and infectious disease services following IV antibiotic for cellulitis Patient remains on IV diuretics Patient currently on IV heparin for PE
[2021-05-31 22:54] LABS: Glucose,Whole Blood 305 mg/dL (75-99)
[2021-05-31] MEDS: HEPARIN SOD,PORK IN 0.45% NACL 25,000 UNIT in 0.45% NACL 1 250ML.BAG IV SCH (23:00)
--- NOTE | 2021-05-31 23:32 | PN ---
PROGRESS NOTE DATE OF SERVICE: 05/31/2021 REASON FOR FOLLOWUP: Lower extremity cellulitis. INTERVAL HISTORY: The patient is afebrile. Still complaining of shortness of breath. He did have a cough and some the patient denies having any chest pain or abdominal pain or pain to the leg area. PHYSICAL EXAMINATION: Blood pressure is 98/58 with a pulse of 80, temperature 97.5. He is 90% on 2 L nasal cannula. General description is an elderly male up in the chair in no distress. Respiratory system: Unlabored breathing, coarse breath sounds bilaterally. No wheeze. Heart S1, S2. Regular rate and rhythm. Abdomen soft, no tenderness. Legs did have swelling and redness, no ulcers though. DIAGNOSTIC IMPRESSION AND PLAN: Patient with mild left lower extremity swelling, cellulitis in this patient who did have evidence of fluid overload. Patient is on oral Keflex; to continue. Continue the diuretics and monitor his clinical course closely. MMODL / IJN: [id number] /
[2021-06-01] MEDS: LEVOTHYROXINE 50 MCG TAB PO SCH (05:55)
[2021-06-01] MEDS: methylPREDNISolone SOD SUCCI 40 MG/ML 1 ML VIAL IV SCH ×3 (05:55→21:42)
[2021-06-01 06:55] LABS: Glucose,Whole Blood 273 mg/dL (75-99)
[2021-06-01] MEDS: INSULIN ASPART (NovoLOG) 100 UNIT/ML VIAL SQ SCH ×4 (07:18→20:58)
[2021-06-01] MEDS: PANTOPRAZOLE 40 MG TABLET PO SCH (07:18)
[2021-06-01] MEDS: FUROSEMIDE 10 MG/ML 4 ML VIAL IV SCH ×2 (07:19→15:34)
[2021-06-01] MEDS: BUDESONIDE 1 MG/2 ML NEBU INHALATION SCH ×2 (08:01→19:27)
[2021-06-01] MEDS: IPRATROPIUM-ALBUTEROL 3 ML NEB INHALATION SCH ×4 (08:01→19:27)
[2021-06-01] MEDS: allopurinoL 300 MG TAB PO SCH (09:10)
[2021-06-01] MEDS: MAGNESIUM OXIDE 400 MG TAB PO SCH (09:10)
[2021-06-01] MEDS: DOCUSATE 100 MG CAP PO SCH ×2 (09:11→20:58)
[2021-06-01] MEDS: DOFETILIDE 500 MCG CAP PO SCH ×2 (09:11→20:58)
[2021-06-01] MEDS: ATORVASTATIN 10 MG TAB PO SCH (09:11)
[2021-06-01] MEDS: MULTIVITAMINS, THERA 1 EACH TAB PO SCH (09:11)
[2021-06-01] MEDS: METOPROLOL TARTRATE 25 MG TAB PO SCH ×2 (09:11→20:59)
[2021-06-01] MEDS: CEPHALEXIN 500 MG CAP PO SCH ×3 (09:11→21:40)
[2021-06-01 09:19] LABS: ALT 27 U/L (4-49); AST 47 U/L (17-59); African American GFR (CKD) 66 (>60 ml/min/1.73 sqM); Albumin 3.9 g/dL (3.5-5.0); Albumin/Globulin Ratio 1.1; Alkaline Phosphatase 133 U/L (38-126); Anion Gap 15 mmol/L; Blood Urea Nitrogen 49 mg/dL (9-20); Calcium 9.8 mg/dL (8.4-10.2); Carbon Dioxide 21 mmol/L (22-30); Chloride 100 mmol/L (98-107); Globulin 3.5 g/dL; Glucose 294 mg/dL (74-99); Non-African American GFR(CKD) 57 (>60 ml/min/1.73 sqM); Potassium 5.3 mmol/L (3.5-5.1); Sodium 136 mmol/L (137-145); Total Bilirubin 1.4 mg/dL (0.2-1.3); Total Protein 7.4 g/dL (6.3-8.2)
--- NOTE | 2021-06-01 09:25 | XR ---
EXAMINATION TYPE: XR chest 1V portable DATE OF EXAM: 06/01/2021 COMPARISON: 05/31/2021 HISTORY: Shortness of breath TECHNIQUE: Single frontal view of the chest is obtained. FINDINGS: Cardiac device is seen within the bilateral lower lobe infiltrate and small effusion. No p neumothorax. Arthropathy shoulders. Heart size is enlarged. Atherosclerotic change aorta. Biapical pl eural thickening. IMPRESSION: 1. Bilateral lower lobe infiltrate and small effusion stable.
[2021-06-01] MEDS: ACETAMINOPHEN TAB 325 MG TAB PO PRN ×2 (09:37→20:59)
[2021-06-01] MEDS: HEPARIN SOD,PORK IN 0.45% NACL 25,000 UNIT in 0.45% NACL 1 250ML.BAG IV SCH (09:37)
[2021-06-01 11:52] LABS: Glucose,Whole Blood 284 mg/dL (75-99)
--- NOTE | 2021-06-01 12:14 | P.PN ---
Subjective Progress Note Date: 06/01/21 Tristian Galloway is a 75-year-old male patient of Dr. Sampson who presented with ongoing shortness of breath and weight gain. Patient reports he's had increasing shortness of breath over the past month with episodes of falling and significant weight gain. Patient is maintained on home O2 for chronic hypoxic respiratory failure but states that the shortness of breath has been increasing. Patient does have a past medical history of A. fib in which she is maintained on Coumadin, COPD, diabetes mellitus, hyperlipidemia and pacemaker. Chest x-ray completed in ER showing cardiomegaly posterior pleural effusion. BNP 608. Troponin was normal lactic acid elevated at 2.9 COVID-19 was negative. Patient has been started on updraft breathing treatments IV Lasix and sublingual insulin for cellulitis. Pulmonary, cardiology and infectious disease services have been consulted. This time patient is resting currently in bed on BiPAP machine. Patient does still complain of some shortness breath. Patient denies any chest pain. Patient denies nausea vomiting or diarrhea. Patient denies any urinary burning or frequency On 05/26/2021 patient was seen and examined on his oriented 3 in no apparent distress. Patient maintained on IV Lasix and IV antibiotics for cellulitis. Pulmonary cardiology and infectious disease service following this time patient reports improvement. Patient denies chest pain or shortness breath. Patient denies nausea vomiting or diarrhea. Patient denies any urinary burning or frequency On 05/27/2021 patient alert and oriented 3. Patient reports significant edema and pain to left upper extremity will order venous Doppler to rule out DVT likely secondary from infiltration of IV. Patient remains on IV Lasix and capsule for cellulitis. Patient currently on 15 L high flow nasal cannula. Pulmonary cardiology and infectious disease services following. On 05/28/2021 patient was seen and examined on the medical floor he is alert and oriented 3 in no apparent distress, he is still complaining of shortness of breath and is maintained on oxygen 10 L via nasal cannula, he is complaining of occasional cough without sputum production, he is complaining of constipation, otherwise he denies any complaints, there is no fever or chills no headache or dizziness no chest pain no nausea or vomiting no abdominal pain no diarrhea no blood in the stool no burning with urination no frequency or urgency no hematuria Patient underwent CT angiogram of the chest that was suspicious for left upper lobe pulmonary embolism, there was evidence also of left sided consolidation and moderate sized pleural effusion, and evidence of ascites. Left upper extremity Doppler was negative for DVT Patient is maintained on Coumadin his INR is therapeutic at 2.5 Echocardiogram revealed normal left ventricular systolic function with an ejection fraction of 60-65% On 05/29/2021 patient is alert and oriented 3. Patient currently on high flow 15 L remains on IV diuretics. Patient remains on IV antibiotics for cellulitis. INR therapeutic at 2.3. Pulmonary, cardiology and infectious disease services are following. Repeat labs will be ordered for a.m. An 05/30/2021 patient alert and oriented 3. Patient has been switched over to IV heparin due to development of PE while on Coumadin. Patient will need to be on different agent for anticoagulation. Patient remains on high flow nasal cannula 15 L and IV diuretics. She denies nausea vomiting or diarrhea. Patient denies any urinary burning or frequency. On 05/31/2021 patient was seen and examined on the medical floor he is alert and oriented 3 in no apparent distress, he is maintained on oxygen 12 L via nasal cannula, there is no fever or chills no headache or dizziness no chest pain no nausea or vomiting no abdominal pain no diarrhea no blood in stool no burning with urination no frequency or urgency no hematuria. He is currently maintained on IV heparin and is off Coumadin, awaiting further recommendation from pulmonary in regard to thoracentesis, continue management with IV Lasix currently he is on further 40 mg twice a day. On 06/01/2021 patient alert and oriented 3. Possible plans for thoracentesis per pulmonary. Patient remains on heparin drip until decision in regards to thoracentesis is made. Then patient will be transitioned to oral eliquis for anticoagulation. Oxygen has been weaned down to 8 liters. Patient's weight increased from 158.2 kg to 160.3. Patient has been on IV Lasix 40mg every 8 hours with minimum improvement. We'll consult nephrology services. Objective - Vital Signs Vital signs: Vital Signs Temp 97.6 F 06/01/21 08:00 Pulse 82 06/01/21 11:23 Resp 16 06/01/21 08:00 BP 115/73 06/01/21 08:00 Pulse Ox 93 L 06/01/21 08:05 Intake & Output 05/31/21 06/01/21 06/01/21 18:59 06:59 18:59 Intake Total 615.585 540.654 373.436 Output Total 600 1200 Balance 15.585 -659.346 373.436 Weight 158.2 kg 160.3 kg Intake: Intake, IV Titration 215.585 60.654 137.436 Amount Heparin Sod,Pork in 0.45% 215.585 60.654 137.436 NaCl 25,000 unit In 0.45 % NaCl 1 250ml.bag @ 13. 05 UNITS/KG/HR 20.006 mls /hr IV .[id number] [facility] Rx#: [id number] Oral 400 480 236 Output: Urine 600 400 Stool 800 Other: Voiding Method Bedside Commode Urinal # Voids 2 - Exam Head normocephalic and atraumatic Neck supple, no JVD no goiter Lungs clear to auscultation bilaterally no wheezing or crackles Heart regular rate and rhythm S1-S2, no rub or gallop Abdomen is soft nontender nondistended positive bowel sounds no hepatosplenomegaly Extremities +3 lower extremity edema with erythema Neuro alert and orientated x 3, no gross neurological deficit - Labs CBC & Chem 7: 05/31/21 06:46 06/01/21 06:18 Labs: Abnormal Lab Results - Last 24 Hours (Table) 05/31/21 05/31/21 05/31/21 Range/Units 06:46 16:42 22:52 APTT (22.0-30.0) sec Sodium (137-145) mmol/L Potassium (3.5-5.1) mmol/L Carbon Dioxide (22-30) mmol/L Anion Gap 14.10 H (4.00-12.00) mmol/L BUN 37.0 H (9.0-27.0) mg/dL BUN/Creatinine Ratio 31.36 H (12.00-20.00) Ratio Glucose 179 H (70-110) mg/dL POC Glucose (mg/dL) 288 H 305 H (75-99) mg/dL Total Bilirubin (0.2-1.3) mg/dL Alkaline Phosphatase (38-126) U/L Albumin/Globulin Ratio 1.20 L (1.60-3.17) g/dL 05/31/21 06/01/21 06/01/21 Range/Units 23:24 06:18 06:18 APTT 41.9 H 93.0 H (22.0-30.0) sec Sodium 136 L (137-145) mmol/L Potassium 5.3 H (3.5-5.1) mmol/L Carbon Dioxide 21 L (22-30) mmol/L Anion Gap (4.00-12.00) mmol/L BUN 49 H (9.0-27.0) mg/dL BUN/Creatinine Ratio (12.00-20.00) Ratio Glucose 294 H (70-110) mg/dL POC Glucose (mg/dL) (75-99) mg/dL Total Bilirubin 1.4 H (0.2-1.3) mg/dL Alkaline Phosphatase 133 H (38-126) U/L Albumin/Globulin Ratio (1.60-3.17) g/dL 06/01/21 06/01/21 Range/Units 06:53 11:50 APTT (22.0-30.0) sec Sodium (137-145) mmol/L Potassium (3.5-5.1) mmol/L Carbon Dioxide (22-30) mmol/L Anion Gap (4.00-12.00) mmol/L BUN (9.0-27.0) mg/dL BUN/Creatinine Ratio (12.00-20.00) Ratio Glucose (70-110) mg/dL POC Glucose (mg/dL) 273 H 284 H (75-99) mg/dL Total Bilirubin (0.2-1.3) mg/dL Alkaline Phosphatase (38-126) U/L Albumin/Globulin Ratio (1.60-3.17) g/dL Microbiology - Last 24 Hours (Table) 05/25/21 12:44 Blood Culture - Final Blood No Growth after 144 hours Assessment and Plan Assessment: 1. Dyspnea secondary to CHF and COPD exacerbation, and pulmonary embolism, 2. History of obstructive sleep apnea 3. Chronic respiratory failure maintained on home O2 4. Bilateral lower extremity cellulitis and edema. Patient started on IV antibiotic infectious disease service is consulted 5. Elevated lactic acid. Patient started on antibiotic for lower infection for cellulitis. Infectious services following 6. Status post pacemaker insertion 7. Chronic atrial fibrillation maintained on Coumadin 8. History of diabetes mellitus type 2 thank scale insulin coverage added hemoglobin A1c 9. History of cardiomyopathy, currently left ventricular function is normal with an ejection fraction of 60-65% 10. History of gout 11. Hypothyroidism 12. Increased swelling to left upper extremity will order venous Doppler to rule out DVT. Venous Doppler negative 13. Acute bilateral pulmonary emboli. Patient placed on heparin drip DVT prophylaxis heparin drip. GI prophylaxis Protonix Pulmonary, cardiology and infectious disease services following IV antibiotic for cellulitis Patient remains on IV diuretics Patient currently on IV heparin for PE Possible plan for thoracentesis per pulmonary Nephrology services will be sent
--- NOTE | 2021-06-01 13:11 | P.PN ---
Subjective Progress Note Date: 06/01/21 05/30/2021, the patient is being seen for a follow-up. Last for increased lower extremity edema several episodes of the legs. He did have chronic hypoxemia and he was only on 3 L of home. Subsequently, further investigation revealed that the patient had pulmonary embolism along multiple other comorbidities including morbid obesity, BMI 47.1 and obstructive sleep apnea. The patient remains on oxygen at 15 L per minute nasal cannula with a pulse of 95%. He has COPD. 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 He has a permanent pacemaker in place. The patient developed suspicious bilateral pu lmonary embolism while he was on Coumadin. He was therapeutic on Coumadin. He was able to as a failure to Coumadin and the patient was switched to heparin drip and was taken warfarin. 05/31/2021 and seeing this patient for a follow-up. Is on 12 L of oxygen with a pulse ox of 96% and I think there is more room for weaning down the oxygen flow. Note that yesterday he was on 15 L of oxygen by nasal cannula. I noted his CAT scan of the chest and there was a moderate-sized left-sided pleural effusion. Based on that, I ordered an ultrasound of the chest that showed a 7.1 cm pocket of pleural effusion on the left. Ultrasound markings have been obtained. Meanwhile, the clinically, the patient is feeling the same. He is off anticoagulation with warfarin and currently is on IV heparin. He was thought to have failed Coumadin therapy. I am still considering a thoracentesis on this patient. Meanwhile, his previous therapeutic at 70, white cell count of 11 with a hemoglobin of 14.7. He is afebrile. In terms of treatment, he is on Lasix 40 mg IV every 8 hours. He is on IV Solu-Medrol that was tapered down to 40 mg every 8 hours. He remains on bronchodilators. The overall fluid balance has been negative in the order of 90 mL over the past 24 hours and the reliability of this number is questionable as the patient does not have a Bernal catheter for now. Strict input output measurement is needed. 06/01/2021 the patient is being seen for a follow-up. He is currently on 8 L of Oxymizer nasal cannula. I was supposed to do a thoracentesis of the left lung. I did a bedside ultrasound and I was not able to identify the pleural pocket. Based on that, I discontinue the procedure. He is currently on IV heparin. I talked to cardiology asked him to proceed with oral anticoagulants. Meanwhile, the patient is in a negative fluid balance based on the input output readings. His weight is noted to be on the rise. Based on his electrolytes, his BUN currently is at 49 with a creatinine of 1.2. Potassium level is at 5.3. Serum bicarbonate 21. His PTT is therapeutic. His current pulse ox is 93% on 8 L about 2 by nasal cannula. He was provided incentive spirometer. He remains on Lasix 40 mg IV every 8 hours. Objective - Vital Signs Vital signs: Vital Signs Temp 97.6 F 06/01/21 08:00 Pulse 82 06/01/21 12:37 Resp 17 06/01/21 12:37 BP 115/73 06/01/21 08:00 Pulse Ox 93 L 06/01/21 08:05 Intake & Output 05/31/21 06/01/21 06/01/21 18:59 06:59 18:59 Intake Total 615.585 540.654 373.436 Output Total 600 1200 Balance 15.585 -659.346 373.436 Weight 158.2 kg 160.3 kg Intake: Intake, IV Titration 215.585 60.654 137.436 Amount Heparin Sod,Pork in 0.45% 215.585 60.654 137.436 NaCl 25,000 unit In 0.45 % NaCl 1 250ml.bag @ 13. 05 UNITS/KG/HR 20.006 mls /hr IV .[id number] [facility] Rx#: [id number] Oral 400 480 236 Output: Urine 600 400 Stool 800 Other: Voiding Method Bedside Commode Urinal # Voids 2 - Exam GENERAL EXAM: Alert, hence, 75-year-old morbidly obese white male, on 8L of oxygen with a pulse ox of 94%, comfortable in no apparent distress. HEAD: Normocephalic/atraumatic. EYES: Normal reaction of pupils, equal size. Conjunctiva pink, sclera white. NOSE: Clear with pink turbinates. THROAT: No erythema or exudates. NECK: No masses, no JVD, no thyroid enlargement, no adenopathy. CHEST: No chest wall deformity. Symmetrical expansion. LUNGS: Equal air entry with diminished breath sounds, with some scattered wheezes and rhonchi CVS: Regular rate and rhythm, normal S1 and S2, no gallops, no murmurs, no rubs ABDOMEN: Soft, nontender. No hepatosplenomegaly, normal bowel sounds, no guarding or rigidity. EXTREMITIES: No clubbing, no edema, no cyanosis, 2+ pulses and upper and lower extremities. MUSCULOSKELETAL: Muscle strength and tone normal. SPINE: No scoliosis or deformity SKIN: No rashes CENTRAL NERVOUS SYSTEM: Alert and oriented -3. No focal deficits, tone is normal in all 4 extremities. PSYCHIATRIC: Alert and oriented -3. Appropriate affect. Intact judgment and insight. - Labs CBC & Chem 7: 05/31/21 06:46 06/01/21 06:18 Labs: Abnormal Lab Results - Last 24 Hours (Table) 05/31/21 05/31/21 05/31/21 Range/Units 06:46 16:42 22:52 APTT (22.0-30.0) sec Sodium (137-145) mmol/L Potassium (3.5-5.1) mmol/L Carbon Dioxide (22-30) mmol/L Anion Gap 14.10 H (4.00-12.00) mmol/L BUN 37.0 H (9.0-27.0) mg/dL BUN/Creatinine Ratio 31.36 H (12.00-20.00) Ratio Glucose 179 H (70-110) mg/dL POC Glucose (mg/dL) 288 H 305 H (75-99) mg/dL Total Bilirubin (0.2-1.3) mg/dL Alkaline Phosphatase (38-126) U/L Albumin/Globulin Ratio 1.20 L (1.60-3.17) g/dL 05/31/21 06/01/21 06/01/21 Range/Units 23:24 06:18 06:18 APTT 41.9 H 93.0 H (22.0-30.0) sec Sodium 136 L (137-145) mmol/L Potassium 5.3 H (3.5-5.1) mmol/L Carbon Dioxide 21 L (22-30) mmol/L Anion Gap (4.00-12.00) mmol/L BUN 49 H (9.0-27.0) mg/dL BUN/Creatinine Ratio (12.00-20.00) Ratio Glucose 294 H (70-110) mg/dL POC Glucose (mg/dL) (75-99) mg/dL Total Bilirubin 1.4 H (0.2-1.3) mg/dL Alkaline Phosphatase 133 H (38-126) U/L Albumin/Globulin Ratio (1.60-3.17) g/dL 06/01/21 06/01/21 Range/Units 06:53 11:50 APTT (22.0-30.0) sec Sodium (137-145) mmol/L Potassium (3.5-5.1) mmol/L Carbon Dioxide (22-30) mmol/L Anion Gap (4.00-12.00) mmol/L BUN (9.0-27.0) mg/dL BUN/Creatinine Ratio (12.00-20.00) Ratio Glucose (70-110) mg/dL POC Glucose (mg/dL) 273 H 284 H (75-99) mg/dL Total Bilirubin (0.2-1.3) mg/dL Alkaline Phosphatase (38-126) U/L Albumin/Globulin Ratio (1.60-3.17) g/dL Microbiology - Last 24 Hours (Table) 05/25/21 12:44 Blood Culture - Final Blood No Growth after 144 hours Assessment and Plan Plan: #1. Acute hypoxic respiratory failure, multifactorial, related to acute pulmonary emboli, acute cor pulmonale with right-sided heart failure, pulmonary hypertension, obstructive sleep apnea, and possible pickwickian syndrome. The patient was on 12 L and I was able to wean him down to 8 L. He is responding to diuretics. He has diminished breath on the left lung base. Nevertheless, they ultrasound that was done at the bedside showed no sizable pocket for thoracentesis. I would suggest continuing to diuretics for now with strict I's and O's and body weight measurements. He is also being monitored in terms of his electrolytes. #2. Acute pulmonary emboli, despite therapeutic INR on Coumadin, possible failure of anticoagulation #3. Morbid obesity #4. History of obstructive sleep apnea on home CPAP #5. History of chronic atrial fibrillation on Coumadin #6. Status post pacemaker insertion #7. History of diabetes no this type II #8. History of hyperlipidemia #9. History of cardiomyopathy #10. History of arthritis #11. History of gout #12. Prior history of MRSA and VRE infections #13. Lifelong nonsmoker Plan: I am the pulse ox still need to be monitored Continue with diuretics cardiology to 40 mg every 8 hours and monitor input output May resume oral anticoagulants Bedside ultrasound showed no sizable pocket for thoracentesis We'll continue following up electrolytes and renal function Body weight measurements and fluid balance measurements We'll continue to follow. Note that the patient baseline is at 3 L at home. Encourage use of incentive spirometer. Deep breathing and pulmonary toileting.
[2021-06-01] MEDS ORDERED: FUROSEMIDE 10 MG/ML 4 ML VIAL IV STA (14:07)
--- NOTE | 2021-06-01 14:11 | P.PN ---
Subjective This is a pleasant 75-year-old male past medical history significant for chronic persistent atrial fibrillation, sick sinus syndrome status post dual chamber permanent pacemaker 2012, hypertension, obesity, type 2 diabetes, pulmonary hypertension, left ventricular hypertrophy, venous insufficiency, lymphedema, former tobacco use 20+ years ago. He follows in the office with Dr. Witt. We have been asked to see in consultation for congestive heart failure. Patient presents emergency department with complaints of shortness of breath, 29lb weig ht gain over 1 month and worsening lower extremity edema. Echocardiogram 05/25 revealed an EF of 6065 percent, RV is mildly enlarged, moderate tricuspid regurgitation, moderate pulmonary hypertension with RVSP of [address] chest 05/27- findings suspicious for acute pulmonary embolism within the left upper lobe and right lower lobe secondary to distal branches. Correlate for CHF left-sided consolidation moderate sized pleural effusion. Small amount of ascites. 06/01/21 Patient seen and examined at bedside, his symptoms of shortness of breath have slightly improved. His oxygen requirements are decreasing to 8L high flow nasal cannula. Voided 1.8L urine output over the past 24 hours. Chest xray this morning bilateral lower lobe infiltrate and small effusion stable. Pulmonary did not see enough fluid on ultrasound to do a thoracentesis . His heparin drip has been stopped he's been switched Eliquis 10 mg twice a day Labs: Sodium 136, potassium 5.3, BUN 49, serum creatinine 1.2, total bilirubin 1.4. Meds: Patient currently maintained on atorvastatin 10 mg daily, IV Lasix 40 mg Q8hr, atorvastatin 10 mg daily, Tikosyn 500mcg BID, magnesium oxide, metoprolol tartrate 25 mg twice a day, Keflex 500mg TID PHYSICAL EXAMINATION Blood pressure 113/69, HR 72 , afebrile, oxygen saturation is 91% on 12 L high flow nasal cannula CONSTITUTIONAL: No acute distress. HEENT: Neck Supple. mild JVD. CHEST EXAMINATION: Lungs are bilateral rhonci to auscultation. No chest wall tenderness is noted on palpation or with deep breathing. HEART EXAMINATION: Regular rate and rhythm. S1, S2 heard. Systolic ejection murmur noted. ABDOMEN: Soft, nontender. Positive bowel sounds. EXTREMITIES: 2+ peripheral pulses, 3+ bilateral lower extremity edema, left lower extremity redness NEUROLOGIC EXAMINATION: Patient is awake, alert and oriented x3. ASSESSMENT Acute on chronic diastolic heart failure Acute pulmonary emboli , despite therapeutic INR on Coumadin, failed on coumadin and patient transition to IV heparin Pulmonary hypertension Obstructive sleep apnea Moderate left sided pleural effusion Acute hypoxic respiratory failure Chronic persistent atrial fibrillation [id number] score 4 on coumadin outpatient Sick sinus syndrome status post dual chamber permanent pacemaker 2012 Hypertension Morbid obesity BMI 48 Type 2 diabetes Bilateral lower extremity cellulitis, ID following, switched the patient to Keflex PLAN Will given one extra dose of IV Lasix 40mg Continue IV Lasix 40mg Q8hr Continue statin, metoprolol tartrate Monitor I/Os, daily weights Monitor renal function and daily electrolytes Heparin drip stopped and patient on Eliquis 10mg BID Further recommendations based on clinical course Nurse Practitioner note has been reviewed, I agree with a documented findings and plan of care. Patient was seen and examined. Objective - Vital Signs Vital signs: Vital Signs Temp 97.4 F L 06/01/21 13:50 Pulse 69 06/01/21 13:50 Resp 17 06/01/21 13:50 BP 102/64 06/01/21 13:50 Pulse Ox 93 L 06/01/21 08:05 Intake & Output 05/31/21 06/01/21 06/01/21 18:59 06:59 18:59 Intake Total 615.585 540.654 373.436 Output Total 600 1200 Balance 15.585 -659.346 373.436 Weight 158.2 kg 160.3 kg Intake: Intake, IV Titration 215.585 60.654 137.436 Amount Heparin Sod,Pork in 0.45% 215.585 60.654 137.436 NaCl 25,000 unit In 0.45 % NaCl 1 250ml.bag @ 13. 05 UNITS/KG/HR 20.006 mls /hr IV .[id number] [facility] Rx#: [id number] Oral 400 480 236 Output: Urine 600 400 Stool 800 Other: Voiding Method Bedside Commode Urinal # Voids 2 - Labs CBC & Chem 7: 05/31/21 06:46 06/01/21 06:18 Labs: Abnormal Lab Results - Last 24 Hours (Table) 05/31/21 05/31/21 05/31/21 Range/Units 06:46 16:42 22:52 APTT (22.0-30.0) sec Sodium (137-145) mmol/L Potassium (3.5-5.1) mmol/L Carbon Dioxide (22-30) mmol/L Anion Gap 14.10 H (4.00-12.00) mmol/L BUN 37.0 H (9.0-27.0) mg/dL BUN/Creatinine Ratio 31.36 H (12.00-20.00) Ratio Glucose 179 H (70-110) mg/dL POC Glucose (mg/dL) 288 H 305 H (75-99) mg/dL Total Bilirubin (0.2-1.3) mg/dL Alkaline Phosphatase (38-126) U/L Albumin/Globulin Ratio 1.20 L (1.60-3.17) g/dL 05/31/21 06/01/21 06/01/21 Range/Units 23:24 06:18 06:18 APTT 41.9 H 93.0 H (22.0-30.0) sec Sodium 136 L (137-145) mmol/L Potassium 5.3 H (3.5-5.1) mmol/L Carbon Dioxide 21 L (22-30) mmol/L Anion Gap (4.00-12.00) mmol/L BUN 49 H (9.0-27.0) mg/dL BUN/Creatinine Ratio (12.00-20.00) Ratio Glucose 294 H (70-110) mg/dL POC Glucose (mg/dL) (75-99) mg/dL Total Bilirubin 1.4 H (0.2-1.3) mg/dL Alkaline Phosphatase 133 H (38-126) U/L Albumin/Globulin Ratio (1.60-3.17) g/dL 06/01/21 06/01/21 Range/Units 06:53 11:50 APTT (22.0-30.0) sec Sodium (137-145) mmol/L Potassium (3.5-5.1) mmol/L Carbon Dioxide (22-30) mmol/L Anion Gap (4.00-12.00) mmol/L BUN (9.0-27.0) mg/dL BUN/Creatinine Ratio (12.00-20.00) Ratio Glucose (70-110) mg/dL POC Glucose (mg/dL) 273 H 284 H (75-99) mg/dL Total Bilirubin (0.2-1.3) mg/dL Alkaline Phosphatase (38-126) U/L Albumin/Globulin Ratio (1.60-3.17) g/dL Microbiology - Last 24 Hours (Table) 05/25/21 12:44 Blood Culture - Final Blood No Growth after 144 hours
--- NOTE | 2021-06-01 14:55 | PN ---
PROGRESS NOTE DATE OF SERVICE: 06/01/2021 REASON FOR FOLLOWUP: Lower extremity cellulitis. INTERVAL HISTORY: The patient is afebrile, breathing comfortably. Concerned about his weight gain. Patient denies having any chest pain. No worsening shortness of breath. No abdominal pain or pain to the lower extremity. PHYSICAL EXAMINATION: Blood pressure 102/64, pulse of 69, temperature 97.4. General description is an elderly male up in the chair in no distress. Respiratory system: Unlabored breathing, decreased intensity of breath sounds. No wheeze. Heart S1, S2. Regular rate and rhythm. Abdomen soft, no tenderness. LABS: Creatinine is 1.24. DIAGNOSTIC IMPRESSION AND PLAN: Patient with fluid overload, congestive heart failure, lower extremity swelling cellulitis. Overall improvement, as swelling and redness on oral Keflex. Continue with supportive care. MMODL / IJN: [id number] /
[2021-06-01] MEDS: APIXABAN 5 MG TAB PO SCH ×2 (15:35→20:58)
[2021-06-01 16:43] LABS: Glucose,Whole Blood 281 mg/dL (75-99)
[2021-06-01 20:42] LABS: Glucose,Whole Blood 342 mg/dL (75-99)
[2021-06-02] MEDS: IPRATROPIUM-ALBUTEROL 3 ML NEB INHALATION PRN (00:18)
[2021-06-02] MEDS: FUROSEMIDE 10 MG/ML 4 ML VIAL IV SCH ×3 (00:50→15:28)
[2021-06-02] MEDS: methylPREDNISolone SOD SUCCI 40 MG/ML 1 ML VIAL IV SCH ×3 (05:14→21:12)
[2021-06-02] MEDS: LEVOTHYROXINE 50 MCG TAB PO SCH (05:30)
[2021-06-02 07:19] LABS: Glucose,Whole Blood 250 mg/dL (75-99)
[2021-06-02] MEDS: allopurinoL 300 MG TAB PO SCH (07:48)
[2021-06-02] MEDS: CEPHALEXIN 500 MG CAP PO SCH ×3 (07:48→21:12)
[2021-06-02] MEDS: APIXABAN 5 MG TAB PO SCH ×2 (07:48→21:11)
[2021-06-02] MEDS: PANTOPRAZOLE 40 MG TABLET PO SCH (07:49)
[2021-06-02] MEDS: METOPROLOL TARTRATE 25 MG TAB PO SCH ×2 (07:49→21:12)
[2021-06-02] MEDS: ATORVASTATIN 10 MG TAB PO SCH (07:49)
[2021-06-02] MEDS: MULTIVITAMINS, THERA 1 EACH TAB PO SCH (07:49)
[2021-06-02] MEDS: DOFETILIDE 500 MCG CAP PO SCH ×2 (07:49→21:12)
[2021-06-02] MEDS: INSULIN ASPART (NovoLOG) 100 UNIT/ML VIAL SQ SCH ×4 (07:49→21:36)
[2021-06-02] MEDS: MAGNESIUM OXIDE 400 MG TAB PO SCH (07:49)
[2021-06-02] MEDS: DOCUSATE 100 MG CAP PO SCH ×2 (07:49→21:12)
[2021-06-02] MEDS: ACETAMINOPHEN TAB 325 MG TAB PO PRN ×3 (08:08→21:11)
[2021-06-02] MEDS: IPRATROPIUM-ALBUTEROL 3 ML NEB INHALATION SCH ×4 (08:16→21:32)
[2021-06-02] MEDS: BUDESONIDE 1 MG/2 ML NEBU INHALATION SCH ×2 (08:16→21:33)
--- NOTE | 2021-06-02 08:25 | P.PN ---
Subjective This is a pleasant 75-year-old male past medical history significant for chronic persistent atrial fibrillation, sick sinus syndrome status post dual chamber permanent pacemaker 2012, hypertension, obesity, type 2 diabetes, pulmonary hypertension, left ventricular hypertrophy, venous insufficiency, lymphedema, former tobacco use 20+ years ago. He follows in the office with Dr. Witt. We have been asked to see in consultation for congestive heart failure. Patient presents emergency department with complaints of shortness of breath, 29lb weig ht gain over 1 month and worsening lower extremity edema. Echocardiogram on 05/25 revealed an EF of 6065 percent, RV is mildly enlarged, moderate tricuspid regurgitation, moderate pulmonary hypertension with RVSP of [address] chest 05/27- findings suspicious for acute pulmonary embolism within the left upper lobe and right lower lobe secondary to distal branches. Correlate for CHF left-sided consolidation moderate sized pleural effusion. Small amount of ascites. 06/02/21 Patient seen and examined at bedside, he is sitting up in his bedside chair, his symptoms of shortness of breath have improved, his lower extremity edema has improved. His oxygen requirements are decreasing to 6L high flow nasal cannula from 8L yesterday. Voided 2925mL urine output over the past 24 hours. His heparin drip has been stopped he's been switched Eliquis 10 mg twice a day. He is concerned about his weight gain per hospital scale, however, clinically he appears to be improving. He was given an extra dose of 40mg IV lasix yesterday. Chest xray- yesterday with improvement. Labs: Pending for today. Meds: Patient currently maintained on Eliquis 10mg BID, atorvastatin 10 mg daily, IV Lasix 40 mg Q8hr, Tikosyn 500mcg BID, magnesium [id number] daily, metoprolol tartrate 25 mg twice a day, Keflex 500mg TID PHYSICAL EXAMINATION Blood pressure 110/70, heart rate 67, afebrile oxygen saturations 92% on 6L high flow nasal cannula CONSTITUTIONAL: No acute distress. HEENT: Neck Supple. No JVD. CHEST EXAMINATION: Lungs with mild crackles in the bases to auscultation. No wh eezing noted. No chest wall tenderness is noted on palpation or with deep breathing. HEART EXAMINATION: Regular rate and rhythm. S1, S2 heard. Systolic ejection murmur noted. ABDOMEN: Soft, nontender. Positive bowel sounds. EXTREMITIES: 2+ peripheral pulses, 1-2+ bilateral lower extremity edema, b ilateral lower extremity redness noted NEUROLOGIC EXAMINATION: Patient is awake, alert and oriented x3. ASSESSMENT Acute on chronic diastolic heart failure Acute pulmonary emboli , despite therapeutic INR on Coumadin, failed on coumadin and patient transition to IV heparin Pulmonary hypertension Obstructive sleep apnea Moderate left sided pleural effusion Acute hypoxic respiratory failure Chronic persistent atrial fibrillation [id number] score 4 on coumadin outpatient Sick sinus syndrome status post dual chamber permanent pacemaker 2012 Hypertension Morbid obesity BMI 48 Type 2 diabetes Bilateral lower extremity cellulitis, ID following, switched the patient to Keflex PLAN We will wait for patient's labs to return and decide if patient needs an extra dose of IV Lasix today. Patient is concerned about his weight increasing on hospital bed, however, clinically he appears to be improving each day. Continue IV Lasix 40mg Q8hr Continue statin, metoprolol tartrate, Tikosyn, and Eliquis Monitor I/Os, daily weights Monitor renal function and daily electrolytes Further recommendations based on clinical course Nurse Practitioner note has been reviewed, I agree with a documented findings and plan of care. Patient was seen and examined. Objective - Vital Signs Vital signs: Vital Signs Temp 97.6 F 06/02/21 08:00 Pulse 67 06/02/21 08:00 Resp 16 06/02/21 08:00 BP 110/70 06/02/21 08:00 Pulse Ox 92 L 06/02/21 08:00 Intake & Output 06/01/21 06/02/21 06/02/21 18:59 06:59 18:59 Intake Total 373.436 480 236 Output Total 1175 1750 Balance -801.564 -1270 236 Weight 160.8 kg Intake: Intake, IV Titration 137.436 Amount Heparin Sod,Pork in 0.45% 137.436 NaCl 25,000 unit In 0.45 % NaCl 1 250ml.bag @ 13. 05 UNITS/KG/HR 20.006 mls /hr IV .[id number] SERGEY Rx#: [id number] Oral 236 480 236 Output: Urine 1175 1750 Other: Voiding Method Toilet # Voids 1 - Labs CBC & Chem 7: 05/31/21 06:46 06/01/21 06:18 Labs: Abnormal Lab Results - Last 24 Hours (Table) 11/05/1206/01/21 06/01/21 Range/Units 06:18 11:50 12:45 APTT 53.5 H (22.0-30.0) sec Sodium 136 L (137-145) mmol/L Potassium 5.3 H (3.5-5.1) mmol/L Carbon Dioxide 21 L (22-30) mmol/L BUN 49 H (9-20) mg/dL Glucose 294 H (74-99) mg/dL POC Glucose (mg/dL) 284 H (75-99) mg/dL Total Bilirubin 1.4 H (0.2-1.3) mg/dL Alkaline Phosphatase 133 H (38-126) U/L 06/01/21 06/01/21 06/02/21 Range/Units 16:42 20:40 07:18 APTT (22.0-30.0) sec Sodium (137-145) mmol/L Potassium (3.5-5.1) mmol/L Carbon Dioxide (22-30) mmol/L BUN (9-20) mg/dL Glucose (74-99) mg/dL POC Glucose (mg/dL) 281 H 342 H 250 H (75-99) mg/dL Total Bilirubin (0.2-1.3) mg/dL Alkaline Phosphatase (38-126) U/L
--- NOTE | 2021-06-02 09:50 | P.NPCON ---
History of Present Illness - Reason for Consult acute renal failure - History of Present Illness Reason for consultation: Acute kidney injury and fluid overload History of present illness: Patient is a 75-year-old male seen in renal consultation for acute kidney injury and fluid overload. Patient's baseline creatinine is in the range of 1-1.2 and was stable at 1.24 as of yesterday. Patient presented to the hospital with shortness of breath which progressively getting worse. He tested negative for c oronavirus. He does have diastolic CHF ejection fraction of 60-65% with moderate tricuspid regurgitation and pulmonary hypertension. Chest x-rays adjustable fluid overload. Patient has history of pacemaker placement. Denies history of cardiac stents. He has long-standing history of diabetes mellitus. Albumin is 3.9. UA is benign. He is currently maintained on IV Lasix 40 mg 3 times daily and has good urine output. No hematuria or dysuria. No vomiting or diarrhea. Blood pressure stable. No fever or chills. Denies use of nonsteroidals. Vital signs are stable. General: The patient appeared well nourished and normally developed. HEENT: Head exam is unremarkable. Neck is without jugular venous distension. LUNGS: Breath sounds decreased. HEART: Rate and Rhythm are regular. ABDOMEN: Soft, obese. EXTREMITITES: 1+ edema. Chronic changes noted. Past Medical History Past Medical History: Atrial Fibrillation, COPD, Diabetes Mellitus, Hyperli pidemia, Sleep Apnea/CPAP/BIPAP Additional Past Medical History / Comment(s): cardiomyopathy. arthritis. gout History of Any Multi-Drug Resistant Organisms: MRSA, VRE Date of last positivie culture/infection: 10/30/13-MRSA and VRE MDRO Source:: Site Unknown Past Surgical History: Bowel Resection, Pacemaker Additional Past Surgical History / Comment(s): Sinus surgery. VIANEY, bilateral cataract removal with lens implants Past Anesthesia/Blood Transfusion Reactions: No Reported Reaction Type of Cardiac Device: Permanent Pacemaker Device Placement Date:: 10/17/2012 Past Psychological History: Depression Past Alcohol Use History: Rare Past Drug Use History: None Reported - Past Family History Father History Unknown: Yes Additional Family Medical History / Comment(s): "hardening of the arteries" Mother History Unknown: Yes Additional Family Medical History / Comment(s): "water in the lungs" at 95 Medications and Allergies Home Medications Medication Instructions Recorded Confirmed Type Budesonide [Pulmicort] 0.5 mg INHALATION RT-BID 11/20/13 05/24/21 History Dofetilide [Tikosyn] 500 mcg PO BID 11/20/13 05/24/21 History Spironolactone [Aldactone] 25 mg PO DAILY 11/20/13 05/24/21 History glipiZIDE [Glucotrol] 10 mg PO AC-BID 11/20/13 05/24/21 History allopurinoL [Zyloprim] 300 mg PO DAILY 11/21/14 05/24/21 History Acetaminophen Tab [Tylenol] 325 mg PO QID PRN MDD 6 TABLETS 07/12/16 05/24/21 History Ergocalciferol [Vitamin D2 50,000 unit PO HODGES 07/12/16 05/24/21 History (DRISDOL)] Multivitamins, Thera [Multivitamin 1 tab PO DAILY 10/03/17 05/24/21 History (formulary)] Torsemide [Demadex] 40 mg PO DAILY 10/03/17 05/24/21 History Albuterol Sulfate [Proair Hfa] 2 puff INHALATION RT-QID PRN 06/23/18 05/24/21 History Warfarin Sodium [Coumadin] 5 mg PO DAILY 30 Days #30 tablet 06/26/18 05/24/21 Rx Levothyroxine Sodium [Synthroid] 50 mcg PO DAILY 05/24/21 05/24/21 History Lovastatin [Altoprev] 20 mg PO DAILY 05/24/21 05/24/21 History Magnesium 500 mg PO DAILY 05/24/21 05/24/21 History Metoprolol Tartrate [Lopressor] 25 mg PO BID 05/24/21 05/24/21 History metFORMIN HCL [Glucophage] 1,000 mg PO BID 05/24/21 05/24/21 History Apixaban [Eliquis Starter Pack 5 - 10 mg PO DIRECTED 30 Days 05/30/21 Rx (for VTE)] #1 each Allergies Allergy/AdvReac Type Severity Reaction Status Date / Time No Known Allergies Allergy Verified 05/24/21 22:01 Physical Exam Vitals: Vital Signs Temp Pulse Pulse Resp BP Pulse Ox 06/02/21 08:35 90 18 06/02/21 08:16 88 18 92 L 06/02/21 08:00 97.6 F 67 16 110/70 92 L 06/02/21 07:20 67 06/02/21 05:04 98.5 F 88 17 112/68 93 L 06/02/21 03:40 67 105/66 94 L 06/02/21 00:34 79 06/02/21 00:28 90 L 06/02/21 00:18 79 06/01/21 20:00 98.0 F 81 17 119/76 96 06/01/21 15:43 83 06/01/21 15:34 81 06/01/21 13:50 97.4 F L 69 17 102/64 06/01/21 12:37 82 17 06/01/21 11:23 82 06/01/21 11:14 79 Intake and Output 06/01/21 06/02/21 06/02/21 22:59 06:59 14:59 Intake Total 260 220 236 Output Total 825 1300 Balance -565 -1080 236 Intake: Oral 260 220 236 Output: Urine 825 1300 Other: Voiding Method Toilet # Voids 0 1 Weight 160.8 kg Results - Lab Results Most recent lab results Calcium 9.8 mg/dL (8.4-10.2) 06/01/21 06:18 Magnesium 2.3 mg/dL (1.6-2.3) 05/27/21 09:47 05/31/21 06:46 06/01/21 06:18 Assessment and Plan Plan: Assessment: 1. Mild acute kidney injury mostly prerenal secondary to cardiorenal syndrome. Creatinine 1.24 as of yesterday. UA benign. 2. Volume overload. 3. Acute on chronic diastolic CHF with moderate tricuspid regurgitation and pulmonary hypertension. 4. Diabetes mellitus. 5. A. fib maintained on anticoagulation. 6. PE on anticoagulation. 7. Mild hyperkalemia secondary to hyperglycemia. Plan: Maintain IV Lasix. Low-salt diet. 1500 mL fluid restriction. Continue to monitor for renal function and urine output. Type blood sugar control. Morning labs pending. Thank you for the consultation. I will continue to follow the patient with you during his hospital stay.
[2021-06-02 11:32] LABS: Glucose,Whole Blood 267 mg/dL (75-99)
[2021-06-02 11:36] LABS: Basophils # (A) 0.01 X 10*3/uL (0.00-0.10); Basophils % (A) 0.1 %; Eosinophils # (A) 0 X 10*3/uL (0.04-0.35); Eosinophils % (A) 0 %; HCT 45.7 % (39.6-50.0); HGB 14.9 g/dL (13.0-17.0); Lymphocytes # (A) 0.68 X 10*3/uL (0.90-5.00); Lymphocytes % (A) 6.5 %; MCHC 32.6 g/dL (32.0-37.0); MCV 95.2 fL (80.0-97.0); Mean Platelet Volume 10.5 fL (9.5-12.2); Monocytes # (A) 0.67 X 10*3/uL (0.20-1.00); Monocytes % (A) 6.4 %; Neutrophils % (A) 85.3 %; Platelet Count 181 X 10*3/uL (140-440); RDW 17.4 % (11.5-14.5); WBC 10.44 X 10*3/uL (4.50-10.00)
[2021-06-02 13:53] LABS: African American GFR (CKD) 61.7 (60.0-200.0); Albumin 3.9 g/dL (3.8-4.9); Albumin/Globulin Ratio 1.29 (1.60-3.17); Anion Gap 13.9 mmol/L (4.00-12.00); BUN/Creat Ratio 39.16 Ratio (12.00-20.00); Blood Urea Nitrogen 51.3 mg/dL (9.0-27.0); Carbon Dioxide 23.6 mmol/L (21.6-31.8); Non-African American GFR(CKD) 53.3 (60.0-200.0); Potassium 5.3 mmol/L (3.5-5.5); Total Bilirubin 1.3 mg/dL (0.30-1.20); Total Protein 6.9 g/dL (6.2-8.2)
--- NOTE | 2021-06-02 15:08 | P.PN ---
Subjective Progress Note Date: 06/02/21 05/30/2021, the patient is being seen for a follow-up. Last for increased lower extremity edema several episodes of the legs. He did have chronic hypoxemia and he was only on 3 L of home. Subsequently, further investigation revealed that the patient had pulmonary embolism along multiple other comorbidities including morbid obesity, BMI 47.1 and obstructive sleep apnea. The patient remains on oxygen at 15 L per minute nasal cannula with a pulse of 95%. He has COPD. 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 He has a permanent pacemaker in place. The patient developed suspicious bilateral pu lmonary embolism while he was on Coumadin. He was therapeutic on Coumadin. He was able to as a failure to Coumadin and the patient was switched to heparin drip and was taken warfarin. 05/31/2021 and seeing this patient for a follow-up. Is on 12 L of oxygen with a pulse ox of 96% and I think there is more room for weaning down the oxygen flow. Note that yesterday he was on 15 L of oxygen by nasal cannula. I noted his CAT scan of the chest and there was a moderate-sized left-sided pleural effusion. Based on that, I ordered an ultrasound of the chest that showed a 7.1 cm pocket of pleural effusion on the left. Ultrasound markings have been obtained. Meanwhile, the clinically, the patient is feeling the same. He is off anticoagulation with warfarin and currently is on IV heparin. He was thought to have failed Coumadin therapy. I am still considering a thoracentesis on this patient. Meanwhile, his previous therapeutic at 70, white cell count of 11 with a hemoglobin of 14.7. He is afebrile. In terms of treatment, he is on Lasix 40 mg IV every 8 hours. He is on IV Solu-Medrol that was tapered down to 40 mg every 8 hours. He remains on bronchodilators. The overall fluid balance has been negative in the order of 90 mL over the past 24 hours and the reliability of this number is questionable as the patient does not have a Bernal catheter for now. Strict input output measurement is needed. 06/01/2021 the patient is being seen for a follow-up. He is currently on 8 L of Oxymizer nasal cannula. I was supposed to do a thoracentesis of the left lung. I did a bedside ultrasound and I was not able to identify the pleural pocket. Based on that, I discontinue the procedure. He is currently on IV heparin. I talked to cardiology asked him to proceed with oral anticoagulants. Meanwhile, the patient is in a negative fluid balance based on the input output readings. His weight is noted to be on the rise. Based on his electrolytes, his BUN currently is at 49 with a creatinine of 1.2. Potassium level is at 5.3. Serum bicarbonate 21. His PTT is therapeutic. His current pulse ox is 93% on 8 L about 2 by nasal cannula. He was provided incentive spirometer. He remains on Lasix 40 mg IV every 8 hours. 06/02/2021, the patient is down to 6 L of oxygen by nasal cannula. He is still on Lasix. He has gained around 2 pounds which is not clearly understandable knowing that the patient remains in a negative fluid balance. His oxygenation is stable and the patient is down to 6 L of oxygen by nasal cannula. He was also seen by nephrology. He was kept on IV Lasix. His sodium level is at 134, bicarb is at 23, BUN is a 51 with a creatinine of 1.3. There is still ongoing edema in lower extremities bilaterally and there is some oozing from the skin wound in his right leg. No fever. No chills. He is on a course of Keflex 500 mg by mouth 3 times a day. He is also on Lasix 40 mg IV every r 8 hours. No altered mentation. He is using incentive spirometer. Objective - Vital Signs Vital signs: Vital Signs Temp 98.4 F 06/02/21 14:00 Pulse 65 06/02/21 14:00 Resp 16 06/02/21 14:00 BP 106/68 06/02/21 14:00 Pulse Ox 92 L 06/02/21 14:00 Intake & Output 06/01/21 06/02/21 06/02/21 18:59 06:59 18:59 Intake Total 373.436 480 712 Output Total 1175 1750 600 Balance -801.564 -1270 112 Weight 160.8 kg Intake: Intake, IV Titration 137.436 Amount Heparin Sod,Pork in 0.45% 137.436 NaCl 25,000 unit In 0.45 % NaCl 1 250ml.bag @ 13. 05 UNITS/KG/HR 20.006 mls /hr IV .[id number] SERGEY Rx#: [id number] Oral 236 480 712 Output: Urine 1175 1750 600 Other: Voiding Method Toilet # Voids 1 - Exam GENERAL EXAM: Alert, hence, 75-year-old morbidly obese white male, on 6L of oxygen with a pulse ox of 94%, comfortable in no apparent distress. HEAD: Normocephalic/atraumatic. EYES: Normal reaction of pupils, equal size. Conjunctiva pink, sclera white. NOSE: Clear with pink turbinates. THROAT: No erythema or exudates. NECK: No masses, no JVD, no thyroid enlargement, no adenopathy. CHEST: No chest wall deformity. Symmetrical expansion. LUNGS: Equal air entry with diminished breath sounds, with some scattered wheezes and rhonchi CVS: Regular rate and rhythm, normal S1 and S2, no gallops, no murmurs, no rubs ABDOMEN: Soft, nontender. No hepatosplenomegaly, normal bowel sounds, no guarding or rigidity. EXTREMITIES: No clubbing, no edema, no cyanosis, 2+ pulses and upper and lower extremities. MUSCULOSKELETAL: Muscle strength and tone normal. SPINE: No scoliosis or deformity SKIN: No rashes CENTRAL NERVOUS SYSTEM: Alert and oriented -3. No focal deficits, tone is normal in all 4 extremities. PSYCHIATRIC: Alert and oriented -3. Appropriate affect. Intact judgment and insight. - Labs CBC & Chem 7: 06/02/21 07:12 06/02/21 07:12 Labs: Abnormal Lab Results - Last 24 Hours (Table) 06/01/21 06/01/21 06/02/21 Range/Units 16:42 20:40 07:12 WBC 10.44 H (4.50-10.00) X 10*3/uL RDW 17.4 H (11.5-14.5) % Absolute Nucleated RBC 0.02 H (0.00-0.00) X 10*3/uL Immature Gran # 0.18 H (0.00-0.04) X 10*3/uL Neutrophils # 8.90 H (1.80-7.70) X 10*3/uL Lymphocytes # 0.68 L (0.90-5.00) X 10*3/uL Eosinophils # 0 L (0.04-0.35) X 10*3/uL NRBC/100 WBC Diff 0.2 H (0.0-0.0) /100 WBCS Sodium (135-145) mmol/L Anion Gap (4.00-12.00) mmol/L BUN (9.0-27.0) mg/dL Est GFR (CKD-EPI)NonAf (60.0-200.0) BUN/Creatinine Ratio (12.00-20.00) Ratio Glucose (70-110) mg/dL POC Glucose (mg/dL) 281 H 342 H (75-99) mg/dL Total Bilirubin (0.30-1.20) mg/dL AST (14-35) U/L ALT (10-49) U/L Alkaline Phosphatase (41-126) U/L Albumin/Globulin Ratio (1.60-3.17) g/dL 06/02/21 06/02/21 06/02/21 Range/Units 07:12 07:18 11:31 WBC (4.50-10.00) X 10*3/uL RDW (11.5-14.5) % Absolute Nucleated RBC (0.00-0.00) X 10*3/uL Immature Gran # (0.00-0.04) X 10*3/uL Neutrophils # (1.80-7.70) X 10*3/uL Lymphocytes # (0.90-5.00) X 10*3/uL Eosinophils # (0.04-0.35) X 10*3/uL NRBC/100 WBC Diff (0.0-0.0) /100 WBCS Sodium 134 L (135-145) mmol/L Anion Gap 13.90 H (4.00-12.00) mmol/L BUN 51.3 H (9.0-27.0) mg/dL Est GFR (CKD-EPI)NonAf 53.3 L (60.0-200.0) BUN/Creatinine Ratio 39.16 H (12.00-20.00) Ratio Glucose 265 H (70-110) mg/dL POC Glucose (mg/dL) 250 H 267 H (75-99) mg/dL Total Bilirubin 1.30 H (0.30-1.20) mg/dL AST 53 H (14-35) U/L ALT 52 H (10-49) U/L Alkaline Phosphatase 127 H (41-126) U/L Albumin/Globulin Ratio 1.29 L (1.60-3.17) g/dL Assessment and Plan Plan: #1. Acute hypoxic respiratory failure, multifactorial, related to acute pulmonary emboli, acute cor pulmonale with right-sided heart failure, pulmonary hypertension, obstructive sleep apnea, and possible pickwickian syndrome. The patient is currently down to 6 L of oxygen and his baseline is at 3 L. He continues to improve. Continue using incentive spirometer. Continue diuretics. Deep breathing. Pulmonary toileting. He is also on anticoagulation with Eliquis. #2. Acute pulmonary emboli, despite therapeutic INR on Coumadin, possible failure of anticoagulation #3. Morbid obesity #4. History of obstructive sleep apnea on home CPAP #5. History of chronic atrial fibrillation on Coumadin #6. Status post pacemaker insertion #7. History of diabetes no this type II #8. History of hyperlipidemia #9. History of cardiomyopathy #10. History of arthritis #11. History of gout #12. Prior history of MRSA and VRE infections #13. Lifelong nonsmoker Plan: Try to wean the patient down under 6 L. Currently he is on 6 L by nasal c annula, Continue with diuretics with IV Lasix 40 mg every 8 hours and monitor input output May resume oral anticoagulants the patient was restarted back on Eliquis Bedside ultrasound showed no sizable pocket for thoracentesis We'll continue following up electrolytes and renal function Body weight measurements and fluid balance measurements We'll continue to follow. Note that the patient baseline is at 3 L at home. Encourage use of incentive spirometer. Deep breathing and pulmonary toileting.
[2021-06-02 16:54] LABS: Glucose,Whole Blood 302 mg/dL (75-99)
--- NOTE | 2021-06-02 18:06 | P.PN ---
Subjective Progress Note Date: 06/02/21 Tristian Galloway is a 75-year-old male patient of Dr. Sampson who presented with ongoing shortness of breath and weight gain. Patient reports he's had increasing shortness of breath over the past month with episodes of falling and significant weight gain. Patient is maintained on home O2 for chronic hypoxic respiratory failure but states that the shortness of breath has been increasing. Patient does have a past medical history of A. fib in which she is maintained on Coumadin, COPD, diabetes mellitus, hyperlipidemia and pacemaker. Chest x-ray completed in ER showing cardiomegaly posterior pleural effusion. BNP 608. Troponin was normal lactic acid elevated at 2.9 COVID-19 was negative. Patient has been started on updraft breathing treatments IV Lasix and sublingual insulin for cellulitis. Pulmonary, cardiology and infectious disease services have been consulted. This time patient is resting currently in bed on BiPAP machine. Patient does still complain of some shortness breath. Patient denies any chest pain. Patient denies nausea vomiting or diarrhea. Patient denies any urinary burning or frequency On 05/26/2021 patient was seen and examined on his oriented 3 in no apparent distress. Patient maintained on IV Lasix and IV antibiotics for cellulitis. Pulmonary cardiology and infectious disease service following this time patient reports improvement. Patient denies chest pain or shortness breath. Patient denies nausea vomiting or diarrhea. Patient denies any urinary burning or frequency On 05/27/2021 patient alert and oriented 3. Patient reports significant edema and pain to left upper extremity will order venous Doppler to rule out DVT likely secondary from infiltration of IV. Patient remains on IV Lasix and capsule for cellulitis. Patient currently on 15 L high flow nasal cannula. Pulmonary cardiology and infectious disease services following. On 05/28/2021 patient was seen and examined on the medical floor he is alert and oriented 3 in no apparent distress, he is still complaining of shortness of breath and is maintained on oxygen 10 L via nasal cannula, he is complaining of occasional cough without sputum production, he is complaining of constipation, otherwise he denies any complaints, there is no fever or chills no headache or dizziness no chest pain no nausea or vomiting no abdominal pain no diarrhea no blood in the stool no burning with urination no frequency or urgency no hematuria Patient underwent CT angiogram of the chest that was suspicious for left upper lobe pulmonary embolism, there was evidence also of left sided consolidation and moderate sized pleural effusion, and evidence of ascites. Left upper extremity Doppler was negative for DVT Patient is maintained on Coumadin his INR is therapeutic at 2.5 Echocardiogram revealed normal left ventricular systolic function with an ejection fraction of 60-65% On 05/29/2021 patient is alert and oriented 3. Patient currently on high flow 15 L remains on IV diuretics. Patient remains on IV antibiotics for cellulitis. INR therapeutic at 2.3. Pulmonary, cardiology and infectious disease services are following. Repeat labs will be ordered for a.m. An 05/30/2021 patient alert and oriented 3. Patient has been switched over to IV heparin due to development of PE while on Coumadin. Patient will need to be on different agent for anticoagulation. Patient remains on high flow nasal cannula 15 L and IV diuretics. She denies nausea vomiting or diarrhea. Patient denies any urinary burning or frequency. On 05/31/2021 patient was seen and examined on the medical floor he is alert and oriented 3 in no apparent distress, he is maintained on oxygen 12 L via nasal cannula, there is no fever or chills no headache or dizziness no chest pain no nausea or vomiting no abdominal pain no diarrhea no blood in stool no burning with urination no frequency or urgency no hematuria. He is currently maintained on IV heparin and is off Coumadin, awaiting further recommendation from pulmonary in regard to thoracentesis, continue management with IV Lasix currently he is on further 40 mg twice a day. On 06/01/2021 patient alert and oriented 3. Possible plans for thoracentesis per pulmonary. Patient remains on heparin drip until decision in regards to thoracentesis is made. Then patient will be transitioned to oral eliquis for anticoagulation. Oxygen has been weaned down to 8 liters. Patient's weight increased from 158.2 kg to 160.3. Patient has been on IV Lasix 40mg every 8 hours with minimum improvement. We'll consult nephrology services. On 06/02/2021 patient was seen and examined on the medical floor, he is alert and oriented 3 in no apparent distress , he is worried about his increasing weight, otherwise he stated that his shortness of breath has improved, he is currently maintained on oxygen 6 L via nasal cannula . there is no fever or chills no headache or dizziness no chest pain no cough no nausea or vomiting no abdominal pain or diarrhea and no urinary symptoms Objective - Vital Signs Vital signs: Vital Signs Temp 98.4 F 06/02/21 14:00 Pulse 92 06/02/21 15:38 Resp 18 06/02/21 15:38 BP 106/68 06/02/21 14:00 Pulse Ox 92 L 06/02/21 14:00 Intake & Output 06/01/21 06/02/21 06/02/21 18:59 06:59 18:59 Intake Total 373.842 622 4524 Output Total 1175 1750 1200 Balance -801.564 -1270 -48 Weight 160.8 kg Intake: Intake, IV Titration 137.436 Amount Heparin Sod,Pork in 0.45% 137.436 NaCl 25,000 unit In 0.45 % NaCl 1 250ml.bag @ 13. 05 UNITS/KG/HR 20.006 mls /hr IV .[id number] SERGEY Rx#: [id number] Oral [id number] Output: Urine 1175 1750 1200 Other: Voiding Method Toilet # Voids 1 - Exam Head normocephalic and atraumatic Neck supple, no JVD no goiter Lungs clear to auscultation bilaterally no wheezing or crackles Heart regular rate and rhythm S1-S2, no rub or gallop Abdomen is soft nontender nondistended positive bowel sounds no hepatosplenomegaly Extremities +3 lower extremity edema with erythema Neuro alert and orientated x 3, no gross neurological deficit - Labs CBC & Chem 7: 06/02/21 07:12 06/02/21 07:12 Labs: Abnormal Lab Results - Last 24 Hours (Table) 06/01/21 06/02/21 06/02/21 Range/Units 20:40 07:12 07:12 WBC 10.44 H (4.50-10.00) X 10*3/uL RDW 17.4 H (11.5-14.5) % Absolute Nucleated RBC 0.02 H (0.00-0.00) X 10*3/uL Immature Gran # 0.18 H (0.00-0.04) X 10*3/uL Neutrophils # 8.90 H (1.80-7.70) X 10*3/uL Lymphocytes # 0.68 L (0.90-5.00) X 10*3/uL Eosinophils # 0 L (0.04-0.35) X 10*3/uL NRBC/100 WBC Diff 0.2 H (0.0-0.0) /100 WBCS Sodium 134 L (135-145) mmol/L Anion Gap 13.90 H (4.00-12.00) mmol/L BUN 51.3 H (9.0-27.0) mg/dL Est GFR (CKD-EPI)NonAf 53.3 L (60.0-200.0) BUN/Creatinine Ratio 39.16 H (12.00-20.00) Ratio Glucose 265 H (70-110) mg/dL POC Glucose (mg/dL) 342 H (75-99) mg/dL Total Bilirubin 1.30 H (0.30-1.20) mg/dL AST 53 H (14-35) U/L ALT 52 H (10-49) U/L Alkaline Phosphatase 127 H (41-126) U/L Albumin/Globulin Ratio 1.29 L (1.60-3.17) g/dL 06/02/21 06/02/21 06/02/21 Range/Units 07:18 11:31 16:52 WBC (4.50-10.00) X 10*3/uL RDW (11.5-14.5) % Absolute Nucleated RBC (0.00-0.00) X 10*3/uL Immature Gran # (0.00-0.04) X 10*3/uL Neutrophils # (1.80-7.70) X 10*3/uL Lymphocytes # (0.90-5.00) X 10*3/uL Eosinophils # (0.04-0.35) X 10*3/uL NRBC/100 WBC Diff (0.0-0.0) /100 WBCS Sodium (135-145) mmol/L Anion Gap (4.00-12.00) mmol/L BUN (9.0-27.0) mg/dL Est GFR (CKD-EPI)NonAf (60.0-200.0) BUN/Creatinine Ratio (12.00-20.00) Ratio Glucose (70-110) mg/dL POC Glucose (mg/dL) 250 H 267 H 302 H (75-99) mg/dL Total Bilirubin (0.30-1.20) mg/dL AST (14-35) U/L ALT (10-49) U/L Alkaline Phosphatase (41-126) U/L Albumin/Globulin Ratio (1.60-3.17) g/dL Assessment and Plan Assessment: 1. Dyspnea secondary to CHF and COPD exacerbation, and pulmonary embolism, 2. History of obstructive sleep apnea 3. Chronic respiratory failure maintained on home O2 4. Bilateral lower extremity cellulitis and edema. Patient started on IV antibiotic infectious disease service is consulted 5. Elevated lactic acid. Patient started on antibiotic for lower infection for cellulitis. Infectious services following 6. Status post pacemaker insertion 7. Chronic atrial fibrillation maintained on Coumadin 8. History of diabetes mellitus type 2 thank scale insulin coverage added hemoglobin A1c 9. History of cardiomyopathy, currently left ventricular function is normal with an ejection fraction of 60-65% 10. History of gout 11. Hypothyroidism 12. Increased swelling to left upper extremity will order venous Doppler to rule out DVT. Venous Doppler negative 13. Acute bilateral pulmonary emboli. Patient placed on heparin drip DVT prophylaxis heparin drip. GI prophylaxis Protonix Pulmonary, cardiology and infectious disease services following IV antibiotic for cellulitis Patient remains on IV diuretics Patient currently on IV heparin for PE Possible plan for thoracentesis per pulmonary Nephrology services will be sent
[2021-06-02 21:25] LABS: Glucose,Whole Blood 340 mg/dL (75-99)
--- NOTE | 2021-06-02 23:01 | PN ---
PROGRESS NOTE DATE OF SERVICE: 06/02/2021 REASON FOR FOLLOWUP: Lower extremity cellulitis. INTERVAL HISTORY: The patient is afebrile. The patient is still complaining of weight gain as his main concern. No chest pain or shortness of breath. He did have some cough. No abdominal pain or pain to the lower extremity. PHYSICAL EXAMINATION: Blood pressure 106/68 with a pulse of 65, temperature 98.4. He is 92% on 6 L nasal cannula. General description is an elderly male up in the chair in no distress. Respiratory system: Unlabored breathing, decreased breath sounds in the bases. No wheeze. Heart S1, S2. Regular rate and rhythm. Abdomen soft, no tenderness. Lower extremity swelling. No significant redness or drainage. LABS: White count of 10.44, creatinine is 1.3. DIAGNOSTIC IMPRESSION AND PLAN: Patient with congestive heart failure, fluid overload and concerning for lower extremity cellulitis. Underlying cellulitis has been adequately treated. Patient to continue with Keflex and Drew wrap to the legs to keep the swelling down. He had multiple questions. Those were answered. MMODL / IJN: [id number] /
[2021-06-03] MEDS: FUROSEMIDE 10 MG/ML 4 ML VIAL IV SCH ×2 (00:57→07:40)
[2021-06-03] MEDS: methylPREDNISolone SOD SUCCI 40 MG/ML 1 ML VIAL IV SCH ×2 (05:12→15:33)
[2021-06-03] MEDS: LEVOTHYROXINE 50 MCG TAB PO SCH (06:05)
[2021-06-03 07:15] LABS: Glucose,Whole Blood 266 mg/dL (75-99)
[2021-06-03] MEDS: INSULIN ASPART (NovoLOG) 100 UNIT/ML VIAL SQ SCH ×4 (07:39→22:16)
[2021-06-03] MEDS: METOPROLOL TARTRATE 25 MG TAB PO SCH ×2 (07:40→22:15)
[2021-06-03] MEDS: APIXABAN 5 MG TAB PO SCH ×2 (07:40→22:15)
[2021-06-03] MEDS: MULTIVITAMINS, THERA 1 EACH TAB PO SCH (07:40)
[2021-06-03] MEDS: PANTOPRAZOLE 40 MG TABLET PO SCH (07:40)
[2021-06-03] MEDS: MAGNESIUM OXIDE 400 MG TAB PO SCH (07:40)
[2021-06-03] MEDS: ATORVASTATIN 10 MG TAB PO SCH (07:40)
[2021-06-03] MEDS: DOCUSATE 100 MG CAP PO SCH ×2 (07:40→22:15)
[2021-06-03] MEDS: DOFETILIDE 500 MCG CAP PO SCH ×2 (07:40→22:16)
[2021-06-03] MEDS: CEPHALEXIN 500 MG CAP PO SCH ×3 (07:40→22:15)
[2021-06-03] MEDS: allopurinoL 300 MG TAB PO SCH (07:41)
[2021-06-03] MEDS: ACETAMINOPHEN TAB 325 MG TAB PO PRN ×2 (07:42→22:14)
[2021-06-03] MEDS: BUDESONIDE 1 MG/2 ML NEBU INHALATION SCH ×2 (09:18→20:44)
[2021-06-03] MEDS: IPRATROPIUM-ALBUTEROL 3 ML NEB INHALATION SCH ×4 (09:18→20:44)
--- NOTE | 2021-06-03 09:59 | P.PN ---
Subjective Patient is seen in follow-up for acute kidney injury and fluid overload. Maintained on IV Lasix. Urine output 3.1 L in the last 24 hours. Weight stable. No chest pain or shortness of breath. Vital signs are stable. General: The patient appeared well nourished and normally developed. HEENT: Head exam is unremarkable. LUNGS: Breath sounds decreased. HEART: Rate and Rhythm are regular. ABDOMEN: Soft, obese. EXTREMITITES: 2+ edema. Objective - Vital Signs Vital signs: Vital Signs Temp 97.3 F L 06/03/21 08:00 Pulse 86 06/03/21 09:31 Resp 20 06/03/21 08:00 BP 111/74 06/03/21 08:00 Pulse Ox 89 L 06/03/21 09:18 Intake & Output 06/02/21 06/03/21 06/03/21 18:59 06:59 18:59 Intake Total 1388 270 Output Total 1500 1600 Balance -112 -1330 Weight 160.7 kg Intake: Oral 1388 270 Output: Urine 1500 1600 Other: Voiding Method Toilet # Voids 1 # Bowel Movements 2 - Labs CBC & Chem 7: 06/02/21 07:12 06/02/21 07:12 Labs: Abnormal Lab Results - Last 24 Hours (Table) 06/02/21 06/02/21 06/02/21 Range/Units 07:12 07:12 11:31 WBC 10.44 H (4.50-10.00) X 10*3/uL RDW 17.4 H (11.5-14.5) % Absolute Nucleated RBC 0.02 H (0.00-0.00) X 10*3/uL Immature Gran # 0.18 H (0.00-0.04) X 10*3/uL Neutrophils # 8.90 H (1.80-7.70) X 10*3/uL Lymphocytes # 0.68 L (0.90-5.00) X 10*3/uL Eosinophils # 0 L (0.04-0.35) X 10*3/uL NRBC/100 WBC Diff 0.2 H (0.0-0.0) /100 WBCS Sodium 134 L (135-145) mmol/L Anion Gap 13.90 H (4.00-12.00) mmol/L BUN 51.3 H (9.0-27.0) mg/dL Est GFR (CKD-EPI)NonAf 53.3 L (60.0-200.0) BUN/Creatinine Ratio 39.16 H (12.00-20.00) Ratio Glucose 265 H (70-110) mg/dL POC Glucose (mg/dL) 267 H (75-99) mg/dL Total Bilirubin 1.30 H (0.30-1.20) mg/dL AST 53 H (14-35) U/L ALT 52 H (10-49) U/L Alkaline Phosphatase 127 H (41-126) U/L Albumin/Globulin Ratio 1.29 L (1.60-3.17) g/dL 06/02/21 06/02/21 06/03/21 Range/Units 16:52 21:24 07:12 WBC (4.50-10.00) X 10*3/uL RDW (11.5-14.5) % Absolute Nucleated RBC (0.00-0.00) X 10*3/uL Immature Gran # (0.00-0.04) X 10*3/uL Neutrophils # (1.80-7.70) X 10*3/uL Lymphocytes # (0.90-5.00) X 10*3/uL Eosinophils # (0.04-0.35) X 10*3/uL NRBC/100 WBC Diff (0.0-0.0) /100 WBCS Sodium (135-145) mmol/L Anion Gap (4.00-12.00) mmol/L BUN (9.0-27.0) mg/dL Est GFR (CKD-EPI)NonAf (60.0-200.0) BUN/Creatinine Ratio (12.00-20.00) Ratio Glucose (70-110) mg/dL POC Glucose (mg/dL) 302 H 340 H 266 H (75-99) mg/dL Total Bilirubin (0.30-1.20) mg/dL AST (14-35) U/L ALT (10-49) U/L Alkaline Phosphatase (41-126) U/L Albumin/Globulin Ratio (1.60-3.17) g/dL Assessment and Plan Plan: Assessment: 1. Mild acute kidney injury mostly prerenal secondary to cardiorenal syndrome. Creatinine 1.3 as of yesterday. UA benign. 2. Volume overload. 3. Acute on chronic diastolic CHF with moderate tricuspid regurgitation and pulmonary hypertension. 4. Diabetes mellitus. 5. A. fib maintained on anticoagulation. 6. PE on anticoagulation. 7. Mild hyperkalemia secondary to hyperglycemia. Plan: Stop IV push Lasix. Start Lasix drip at 10 mL an hour. Add metolazone 5 mg once daily. Low-salt diet. 1500 mL fluid restriction. Daily weights. Continue to monitor for renal function and urine output. Tight blood sugar control. Morning labs pending.
--- NOTE | 2021-06-03 10:19 | P.PN ---
Subjective Progress Note Date: 06/03/21 Tristian Galloway is a 75-year-old male patient of Dr. Sampson who presented with ongoing shortness of breath and weight gain. Patient reports he's had increasing shortness of breath over the past month with episodes of falling and significant weight gain. Patient is maintained on home O2 for chronic hypoxic respiratory failure but states that the shortness of breath has been increasing. Patient does have a past medical history of A. fib in which she is maintained on Coumadin, COPD, diabetes mellitus, hyperlipidemia and pacemaker. Chest x-ray completed in ER showing cardiomegaly posterior pleural effusion. BNP 608. Troponin was normal lactic acid elevated at 2.9 COVID-19 was negative. Patient has been started on updraft breathing treatments IV Lasix and sublingual insulin for cellulitis. Pulmonary, cardiology and infectious disease services have been consulted. This time patient is resting currently in bed on BiPAP machine. Patient does still complain of some shortness breath. Patient denies any chest pain. Patient denies nausea vomiting or diarrhea. Patient denies any urinary burning or frequency On 05/26/2021 patient was seen and examined on his oriented 3 in no apparent distress. Patient maintained on IV Lasix and IV antibiotics for cellulitis. Pulmonary cardiology and infectious disease service following this time patient reports improvement. Patient denies chest pain or shortness breath. Patient denies nausea vomiting or diarrhea. Patient denies any urinary burning or frequency On 05/27/2021 patient alert and oriented 3. Patient reports significant edema and pain to left upper extremity will order venous Doppler to rule out DVT likely secondary from infiltration of IV. Patient remains on IV Lasix and capsule for cellulitis. Patient currently on 15 L high flow nasal cannula. Pulmonary cardiology and infectious disease services following. On 05/28/2021 patient was seen and examined on the medical floor he is alert and oriented 3 in no apparent distress, he is still complaining of shortness of breath and is maintained on oxygen 10 L via nasal cannula, he is complaining of occasional cough without sputum production, he is complaining of constipation, otherwise he denies any complaints, there is no fever or chills no headache or dizziness no chest pain no nausea or vomiting no abdominal pain no diarrhea no blood in the stool no burning with urination no frequency or urgency no hematuria Patient underwent CT angiogram of the chest that was suspicious for left upper lobe pulmonary embolism, there was evidence also of left sided consolidation and moderate sized pleural effusion, and evidence of ascites. Left upper extremity Doppler was negative for DVT Patient is maintained on Coumadin his INR is therapeutic at 2.5 Echocardiogram revealed normal left ventricular systolic function with an ejection fraction of 60-65% On 05/29/2021 patient is alert and oriented 3. Patient currently on high flow 15 L remains on IV diuretics. Patient remains on IV antibiotics for cellulitis. INR therapeutic at 2.3. Pulmonary, cardiology and infectious disease services are following. Repeat labs will be ordered for a.m. An 05/30/2021 patient alert and oriented 3. Patient has been switched over to IV heparin due to development of PE while on Coumadin. Patient will need to be on different agent for anticoagulation. Patient remains on high flow nasal cannula 15 L and IV diuretics. She denies nausea vomiting or diarrhea. Patient denies any urinary burning or frequency. On 05/31/2021 patient was seen and examined on the medical floor he is alert and oriented 3 in no apparent distress, he is maintained on oxygen 12 L via nasal cannula, there is no fever or chills no headache or dizziness no chest pain no nausea or vomiting no abdominal pain no diarrhea no blood in stool no burning with urination no frequency or urgency no hematuria. He is currently maintained on IV heparin and is off Coumadin, awaiting further recommendation from pulmonary in regard to thoracentesis, continue management with IV Lasix currently he is on further 40 mg twice a day. On 06/01/2021 patient alert and oriented 3. Possible plans for thoracentesis per pulmonary. Patient remains on heparin drip until decision in regards to thoracentesis is made. Then patient will be transitioned to oral eliquis for anticoagulation. Oxygen has been weaned down to 8 liters. Patient's weight increased from 158.2 kg to 160.3. Patient has been on IV Lasix 40mg every 8 hours with minimum improvement. We'll consult nephrology services. On 06/02/2021 patient was seen and examined on the medical floor, he is alert and oriented 3 in no apparent distress , he is worried about his increasing weight, otherwise he stated that his shortness of breath has improved, he is currently maintained on oxygen 6 L via nasal cannula . there is no fever or chills no headache or dizziness no chest pain no cough no nausea or vomiting no abdominal pain or diarrhea and no urinary symptoms 06/03/2021 patient's alert and oriented 3. Patient's weight slightly down to 160.7 kg. Per nursing staff nephrology is planning to order Lasix drip. Patient remains on eliquis for anticoagulation for pulmonary embolism and IV antibiotics for cellulitis. Pulmonary cardiology and nephrology services are following. Oxygen down to 6 L nasal cannula. This time patient does deny chest pain. Still complaining of some shortness breath with activity. Bilateral legs currently wrapped and elevated. Patient denies nausea vomiting or diarrhea. Objective - Vital Signs Vital signs: Vital Signs Temp 97.3 F L 06/03/21 08:00 Pulse 86 06/03/21 09:31 Resp 20 06/03/21 08:00 BP 111/74 06/03/21 08:00 Pulse Ox 89 L 06/03/21 09:18 Intake & Output 06/02/21 06/03/21 06/03/21 18:59 06:59 18:59 Intake Total 1388 270 Output Total 1500 1600 Balance -112 -1330 Weight 160.7 kg Intake: Oral 1388 270 Output: Urine 1500 1600 Other: Voiding Method Toilet # Voids 1 # Bowel Movements 2 - Exam Head normocephalic and atraumatic Neck supple, no JVD no goiter Lungs clear to auscultation bilaterally no wheezing or crackles Heart regular rate and rhythm S1-S2, no rub or gallop Abdomen is soft nontender nondistended positive bowel sounds no hepatosplenomegaly Extremities +3 lower extremity edema with erythema Neuro alert and orientated x 3, no gross neurological deficit - Labs CBC & Chem 7: 06/02/21 07:12 06/02/21 07:12 Labs: Abnormal Lab Results - Last 24 Hours (Table) 06/02/21 06/02/21 06/02/21 Range/Units 07:12 07:12 11:31 WBC 10.44 H (4.50-10.00) X 10*3/uL RDW 17.4 H (11.5-14.5) % Absolute Nucleated RBC 0.02 H (0.00-0.00) X 10*3/uL Immature Gran # 0.18 H (0.00-0.04) X 10*3/uL Neutrophils # 8.90 H (1.80-7.70) X 10*3/uL Lymphocytes # 0.68 L (0.90-5.00) X 10*3/uL Eosinophils # 0 L (0.04-0.35) X 10*3/uL NRBC/100 WBC Diff 0.2 H (0.0-0.0) /100 WBCS Sodium 134 L (135-145) mmol/L Anion Gap 13.90 H (4.00-12.00) mmol/L BUN 51.3 H (9.0-27.0) mg/dL Est GFR (CKD-EPI)NonAf 53.3 L (60.0-200.0) BUN/Creatinine Ratio 39.16 H (12.00-20.00) Ratio Glucose 265 H (70-110) mg/dL POC Glucose (mg/dL) 267 H (75-99) mg/dL Total Bilirubin 1.30 H (0.30-1.20) mg/dL AST 53 H (14-35) U/L ALT 52 H (10-49) U/L Alkaline Phosphatase 127 H (41-126) U/L Albumin/Globulin Ratio 1.29 L (1.60-3.17) g/dL 06/02/21 06/02/21 06/03/21 Range/Units 16:52 21:24 07:12 WBC (4.50-10.00) X 10*3/uL RDW (11.5-14.5) % Absolute Nucleated RBC (0.00-0.00) X 10*3/uL Immature Gran # (0.00-0.04) X 10*3/uL Neutrophils # (1.80-7.70) X 10*3/uL Lymphocytes # (0.90-5.00) X 10*3/uL Eosinophils # (0.04-0.35) X 10*3/uL NRBC/100 WBC Diff (0.0-0.0) /100 WBCS Sodium (135-145) mmol/L Anion Gap (4.00-12.00) mmol/L BUN (9.0-27.0) mg/dL Est GFR (CKD-EPI)NonAf (60.0-200.0) BUN/Creatinine Ratio (12.00-20.00) Ratio Glucose (70-110) mg/dL POC Glucose (mg/dL) 302 H 340 H 266 H (75-99) mg/dL Total Bilirubin (0.30-1.20) mg/dL AST (14-35) U/L ALT (10-49) U/L Alkaline Phosphatase (41-126) U/L Albumin/Globulin Ratio (1.60-3.17) g/dL Assessment and Plan Assessment: 1. Dyspnea secondary to CHF and COPD exacerbation, and pulmonary embolism, 2. History of obstructive sleep apnea 3. Chronic respiratory failure maintained on home O2 4. Bilateral lower extremity cellulitis and edema. Patient started on IV antibiotic infectious disease service is consulted 5. Elevated lactic acid. Patient started on antibiotic for lower infection for cellulitis. Infectious services following 6. Status post pacemaker insertion 7. Chronic atrial fibrillation maintained on Coumadin 8. History of diabetes mellitus type 2 thank scale insulin coverage added hemoglobin A1c 9. History of cardiomyopathy, currently left ventricular function is normal with an ejection fraction of 60-65% 10. History of gout 11. Hypothyroidism 12. Increased swelling to left upper extremity will order venous Doppler to rule out DVT. Venous Doppler negative 13. Acute bilateral pulmonary emboli. Patient started on eliquis due to failed with Coumadin DVT prophylaxis eliquis. GI prophylaxis Protonix Pulmonary, cardiology and infectious disease services following IV antibiotic for cellulitis Lasix drip per nephrology Continue to wean oxygen PT OT services following
[2021-06-03] MEDS: FUROSEMIDE 100 MG in SODIUM CHLORIDE 0.9% 90 ML IV SCH ×2 (10:35→19:32)
[2021-06-03] MEDS: metOLazone 5 MG TAB PO SCH (10:35)
[2021-06-03 11:14] LABS: African American GFR (CKD) 57.5 (60.0-200.0); Anion Gap 12.6 mmol/L (4.00-12.00); BUN/Creat Ratio 37.55 Ratio (12.00-20.00); Blood Urea Nitrogen 52.2 mg/dL (9.0-27.0); Carbon Dioxide 25.7 mmol/L (21.6-31.8); Magnesium 2.7 mg/dL (1.5-2.4); Non-African American GFR(CKD) 49.6 (60.0-200.0); Potassium 5.7 mmol/L (3.5-5.5)
[2021-06-03 11:20] LABS: Glucose,Whole Blood 292 mg/dL (75-99)
--- NOTE | 2021-06-03 12:50 | P.PN ---
Subjective This is a pleasant 75-year-old male past medical history significant for chronic persistent atrial fibrillation, sick sinus syndrome status post dual chamber permanent pacemaker 2012, hypertension, obesity, type 2 diabetes, pulmonary hypertension, left ventricular hypertrophy, venous insufficiency, lymphedema, former tobacco use 20+ years ago. He follows in the office with Dr. Witt. We have been asked to see in consultation for congestive heart failure. Patient presents emergency department with complaints of shortness of breath, 29lb weig ht gain over 1 month and worsening lower extremity edema. Echocardiogram on 05/25 revealed an EF of 6065 percent, RV is mildly enlarged, moderate tricuspid regurgitation, moderate pulmonary hypertension with RVSP of [address] chest 05/27- findings suspicious for acute pulmonary embolism within the left upper lobe and right lower lobe secondary to distal branches. Correlate for CHF left-sided consolidation moderate sized pleural effusion. Small amount of ascites. 06/03/21 Patient seen and examined at bedside, he is sitting in the bedside chair. He states his symptoms of shortness of breath have improved, his lower extremity edema has improved. But still does not feel at baseline. His oxygen requirements are maintained at 6L high flow nasal cannula same as yesterday. Voided3.1L urine output over the past 24 hours. His heparin drip has been stopped he's been switched Eliquis 10 mg twice a day. Nephrology evaluated the patient and wanted to transition to IV Lasix drip. Labs: Pending for today. Meds: Patient currently maintained on Eliquis 10mg BID, atorvastatin 10 mg daily, IV Lasix drip 10mg/hr, Tikosyn 500mcg BID, magnesium [id number] daily, metoprolol tartrate 25 mg twice a day, Keflex 500mg TID, metolazone 5mg daily PHYSICAL EXAMINATION Blood pressure 111/74, heart rate 85, afebrile, saturations 91% on 6 L nasal cannula CONSTITUTIONAL: No acute distress. HEENT: Neck Supple. No JVD. CHEST EXAMINATION: Lungs with mild crackles in the bases to auscultation. No wheezing noted. No chest wall tenderness is noted on palpation or with deep tamica athing. HEART EXAMINATION: Regular rate and rhythm. S1, S2 heard. Systolic ejection murmur noted. ABDOMEN: Soft, nontender. Positive bowel sounds. EXTREMITIES: 2+ peripheral pulses, 2+ bilateral lower extremity edema, bilateral lower extremity redness noted NEUROLOGIC EXAMINATION: Patient is awake, alert and oriented x3. ASSESSMENT Acute on chronic diastolic heart failure Acute pulmonary emboli , despite therapeutic INR on Coumadin, failed on coumadin and patient transition to IV heparin Pulmonary hypertension Obstructive sleep apnea Moderate left sided pleural effusion Acute hypoxic respiratory failure Chronic persistent atrial fibrillation [id number] score 4 on coumadin outpatient Sick sinus syndrome status post dual chamber permanent pacemaker 2012 Hypertension Morbid obesity BMI 48 Type 2 diabetes Bilateral lower extremity cellulitis, ID following, switched the patient to K eflex PLAN Patient started on IV Lasix drip per nephrology at 10mL/hr. and metolazone 5mg daily added Continue statin, metoprolol tartrate, Tikosyn, and Eliquis Monitor I/Os, daily weights Monitor renal function and daily electrolytes Further recommendations based on clinical course Nurse Practitioner note has been reviewed, I agree with a documented findings and plan of care. Patient was seen and examined. Objective - Vital Signs Vital signs: Vital Signs Temp 97.3 F L 06/03/21 08:00 Pulse 86 06/03/21 09:31 Resp 20 06/03/21 08:00 BP 111/74 06/03/21 08:00 Pulse Ox 89 L 06/03/21 09:18 Intake & Output 06/02/21 06/03/21 06/03/21 18:59 06:59 18:59 Intake Total 1388 270 Output Total 1500 1600 500 Balance -112 -1330 -500 Weight 160.7 kg Intake: Oral 1388 270 Output: Urine 1500 1600 500 Other: Voiding Method Toilet # Voids 1 # Bowel Movements 2 - Labs CBC & Chem 7: 06/02/21 07:12 06/02/21 07:12 Labs: Abnormal Lab Results - Last 24 Hours (Table) 06/02/21 06/02/21 06/02/21 Range/Units 07:12 07:12 11:31 WBC 10.44 H (4.50-10.00) X 10*3/uL RDW 17.4 H (11.5-14.5) % Absolute Nucleated RBC 0.02 H (0.00-0.00) X 10*3/uL Immature Gran # 0.18 H (0.00-0.04) X 10*3/uL Neutrophils # 8.90 H (1.80-7.70) X 10*3/uL Lymphocytes # 0.68 L (0.90-5.00) X 10*3/uL Eosinophils # 0 L (0.04-0.35) X 10*3/uL NRBC/100 WBC Diff 0.2 H (0.0-0.0) /100 WBCS Sodium 134 L (135-145) mmol/L Anion Gap 13.90 H (4.00-12.00) mmol/L BUN 51.3 H (9.0-27.0) mg/dL Est GFR (CKD-EPI)NonAf 53.3 L (60.0-200.0) BUN/Creatinine Ratio 39.16 H (12.00-20.00) Ratio Glucose 265 H (70-110) mg/dL POC Glucose (mg/dL) 267 H (75-99) mg/dL Total Bilirubin 1.30 H (0.30-1.20) mg/dL AST 53 H (14-35) U/L ALT 52 H (10-49) U/L Alkaline Phosphatase 127 H (41-126) U/L Albumin/Globulin Ratio 1.29 L (1.60-3.17) g/dL 06/02/21 06/02/21 06/03/21 Range/Units 16:52 21:24 07:12 WBC (4.50-10.00) X 10*3/uL RDW (11.5-14.5) % Absolute Nucleated RBC (0.00-0.00) X 10*3/uL Immature Gran # (0.00-0.04) X 10*3/uL Neutrophils # (1.80-7.70) X 10*3/uL Lymphocytes # (0.90-5.00) X 10*3/uL Eosinophils # (0.04-0.35) X 10*3/uL NRBC/100 WBC Diff (0.0-0.0) /100 WBCS Sodium (135-145) mmol/L Anion Gap (4.00-12.00) mmol/L BUN (9.0-27.0) mg/dL Est GFR (CKD-EPI)NonAf (60.0-200.0) BUN/Creatinine Ratio (12.00-20.00) Ratio Glucose (70-110) mg/dL POC Glucose (mg/dL) 302 H 340 H 266 H (75-99) mg/dL Total Bilirubin (0.30-1.20) mg/dL AST (14-35) U/L ALT (10-49) U/L Alkaline Phosphatase (41-126) U/L Albumin/Globulin Ratio (1.60-3.17) g/dL
--- NOTE | 2021-06-03 14:01 | P.PN ---
Subjective Progress Note Date: 06/03/21 05/30/2021, the patient is being seen for a follow-up. Last for increased lower extremity edema several episodes of the legs. He did have chronic hypoxemia and he was only on 3 L of home. Subsequently, further investigation revealed that the patient had pulmonary embolism along multiple other comorbidities including morbid obesity, BMI 47.1 and obstructive sleep apnea. The patient remains on oxygen at 15 L per minute nasal cannula with a pulse of 95%. He has COPD. 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 He has a permanent pacemaker in place. The patient developed suspicious bilateral pu lmonary embolism while he was on Coumadin. He was therapeutic on Coumadin. He was able to as a failure to Coumadin and the patient was switched to heparin drip and was taken warfarin. 05/31/2021 and seeing this patient for a follow-up. Is on 12 L of oxygen with a pulse ox of 96% and I think there is more room for weaning down the oxygen flow. Note that yesterday he was on 15 L of oxygen by nasal cannula. I noted his CAT scan of the chest and there was a moderate-sized left-sided pleural effusion. Based on that, I ordered an ultrasound of the chest that showed a 7.1 cm pocket of pleural effusion on the left. Ultrasound markings have been obtained. Meanwhile, the clinically, the patient is feeling the same. He is off anticoagulation with warfarin and currently is on IV heparin. He was thought to have failed Coumadin therapy. I am still considering a thoracentesis on this patient. Meanwhile, his previous therapeutic at 70, white cell count of 11 with a hemoglobin of 14.7. He is afebrile. In terms of treatment, he is on Lasix 40 mg IV every 8 hours. He is on IV Solu-Medrol that was tapered down to 40 mg every 8 hours. He remains on bronchodilators. The overall fluid balance has been negative in the order of 90 mL over the past 24 hours and the reliability of this number is questionable as the patient does not have a Bernal catheter for now. Strict input output measurement is needed. 06/01/2021 the patient is being seen for a follow-up. He is currently on 8 L of Oxymizer nasal cannula. I was supposed to do a thoracentesis of the left lung. I did a bedside ultrasound and I was not able to identify the pleural pocket. Based on that, I discontinue the procedure. He is currently on IV heparin. I talked to cardiology asked him to proceed with oral anticoagulants. Meanwhile, the patient is in a negative fluid balance based on the input output readings. His weight is noted to be on the rise. Based on his electrolytes, his BUN currently is at 49 with a creatinine of 1.2. Potassium level is at 5.3. Serum bicarbonate 21. His PTT is therapeutic. His current pulse ox is 93% on 8 L about 2 by nasal cannula. He was provided incentive spirometer. He remains on Lasix 40 mg IV every 8 hours. 06/02/2021, the patient is down to 6 L of oxygen by nasal cannula. He is still on Lasix. He has gained around 2 pounds which is not clearly understandable knowing that the patient remains in a negative fluid balance. His oxygenation is stable and the patient is down to 6 L of oxygen by nasal cannula. He was also seen by nephrology. He was kept on IV Lasix. His sodium level is at 134, bicarb is at 23, BUN is a 51 with a creatinine of 1.3. There is still ongoing edema in lower extremities bilaterally and there is some oozing from the skin wound in his right leg. No fever. No chills. He is on a course of Keflex 500 mg by mouth 3 times a day. He is also on Lasix 40 mg IV every r 8 hours. No altered mentation. He is using incentive spirometer. 06/03/2021, the patient is in a negative fluid balance. His weight has remained stable. Currently is on 5 L of oxygen by nasal cannula. His creatinine is at 1.4. His potassium level is at 5.7. BNP is a 52. Serum bicarb is at 25. Glucose that 308, CBC showed a white cell count of 10.4. The patient remains on IV Lasix in the form of drip 10 mg an hour. He remains on the Solu Medrol. This will be discontinued as the patient has developed significant hyperglycemia and the patient will be started on a prednisone burst taper. He is also on Keflex regarding lower extremity cellulitis. He remains on bronchodilators. Using incentive spirometer. Clinically stable. Objective - Vital Signs Vital signs: Vital Signs Temp 97.3 F L 06/03/21 08:00 Pulse 86 06/03/21 09:31 Resp 20 06/03/21 08:00 BP 111/74 06/03/21 08:00 Pulse Ox 89 L 06/03/21 09:18 Intake & Output 06/02/21 06/03/21 06/03/21 18:59 06:59 18:59 Intake Total 1388 270 240 Output Total 1500 1600 900 Balance -112 -3240 -660 Weight 160.7 kg Intake: Oral 1388 270 240 Output: Urine 1500 1600 900 Other: Voiding Method Toilet # Voids 1 # Bowel Movements 2 - Exam GENERAL EXAM: Alert, hence, 75-year-old morbidly obese white male, on 5L of oxygen with a pulse ox of 94%, comfortable in no apparent distress. HEAD: Normocephalic/atraumatic. EYES: Normal reaction of pupils, equal size. Conjunctiva pink, sclera white. NOSE: Clear with pink turbinates. THROAT: No erythema or exudates. NECK: No masses, no JVD, no thyroid enlargement, no adenopathy. CHEST: No chest wall deformity. Symmetrical expansion. LUNGS: Equal air entry with diminished breath sounds, with some scattered wheezes and rhonchi CVS: Regular rate and rhythm, normal S1 and S2, no gallops, no murmurs, no rubs ABDOMEN: Soft, nontender. No hepatosplenomegaly, normal bowel sounds, no guarding or rigidity. EXTREMITIES: No clubbing, no edema, no cyanosis, 2+ pulses and upper and lower extremities. MUSCULOSKELETAL: Muscle strength and tone normal. SPINE: No scoliosis or deformity SKIN: No rashes CENTRAL NERVOUS SYSTEM: Alert and oriented -3. No focal deficits, tone is normal in all 4 extremities. PSYCHIATRIC: Alert and oriented -3. Appropriate affect. Intact judgment and insight. - Labs CBC & Chem 7: 06/02/21 07:12 06/03/21 07:22 Labs: Abnormal Lab Results - Last 24 Hours (Table) 06/02/21 06/02/21 06/03/21 Range/Units 16:52 21:24 07:12 Potassium (3.5-5.5) mmol/L Anion Gap (4.00-12.00) mmol/L BUN (9.0-27.0) mg/dL Est GFR (CKD-EPI)AfAm (60.0-200.0) Est GFR (CKD-EPI)NonAf (60.0-200.0) BUN/Creatinine Ratio (12.00-20.00) Ratio Glucose (70-110) mg/dL POC Glucose (mg/dL) 302 H 340 H 266 H (75-99) mg/dL Magnesium (1.5-2.4) mg/dL 06/03/21 06/03/21 Range/Units 07:22 11:18 Potassium 5.7 H (3.5-5.5) mmol/L Anion Gap 12.60 H (4.00-12.00) mmol/L BUN 52.2 H (9.0-27.0) mg/dL Est GFR (CKD-EPI)AfAm 57.5 L (60.0-200.0) Est GFR (CKD-EPI)NonAf 49.6 L (60.0-200.0) BUN/Creatinine Ratio 37.55 H (12.00-20.00) Ratio Glucose 308 H (70-110) mg/dL POC Glucose (mg/dL) 292 H (75-99) mg/dL Magnesium 2.7 H (1.5-2.4) mg/dL Assessment and Plan Plan: #1. Acute hypoxic respiratory failure, multifactorial, related to acute pulmonary emboli, acute cor pulmonale with right-sided heart failure, pulmonary hypertension, obstructive sleep apnea, and possible pickwickian syndrome. The patient is currently down to 5 L of oxygen and his baseline is at 3 L. He continues to improve. Continue using incentive spirometer. Continue diuretics. the patient continues to be on a Lasix drip at 10 mg an hour. The findings on the case. His weight is stable and he is in a negative fluid balance. He is also on anticoagulation with Eliquis. #2. Acute pulmonary emboli, despite therapeutic INR on Coumadin, possible failure of anticoagulation #3. Morbid obesity #4. History of obstructive sleep apnea on home CPAP #5. History of chronic atrial fibrillation on Coumadin #6. Status post pacemaker insertion #7. History of diabetes no this type II #8. History of hyperlipidemia #9. History of cardiomyopathy #10. History of arthritis #11. History of gout #12. Prior history of MRSA and VRE infections #13. Lifelong nonsmoker Plan: Try to wean the patient down on the 5 L currently on 5 L per minute nasal cannula Continue with diuretics and the patient is on Lasix drip at 10 mg an hour This continued IV Solu-Medrol and put the patient on 20 mg of prednisone as a part of the burst taper An estimated to the blood sugar control as the patient is taken off steroids patient was restarted on Eliquis Bedside ultrasound showed no sizable pocket for thoracentesis We'll continue following up electrolytes and renal function Body weight measurements and fluid balance measurements We'll continue to follow. Note that the patient baseline is at 3 L at home. Encourage use of incentive spirometer. Deep breathing and pulmonary toileting.
[2021-06-03 16:33] LABS: Glucose,Whole Blood 300 mg/dL (75-99)
--- NOTE | 2021-06-03 18:16 | PN ---
PROGRESS NOTE DATE OF SERVICE: 06/03/2021 REASON FOR FOLLOWUP: Lower extremity cellulitis. INTERVAL HISTORY: The patient is afebrile. The patient is breathing comfortably. The patient denies having any chest pain. Still complaining of shortness of breath and cough and has been complaining about water restriction. No vomiting. No abdominal pain or diarrhea. PHYSICAL EXAMINATION: Blood pressure 122/53, pulse of 55, temperature 98.2. He is 97% on 3 L nasal cannula. General description is an elderly male lying in bed in no distress. Respiratory system: Unlabored breathing, decreased breath sounds at the base. No wheeze. Heart S1, S2. Regular rate and rhythm. Abdomen soft, no tenderness. Legs are currently wrapped up. No drainage on the dressing. LABS: Creatinine is 1.4. DIAGNOSTIC IMPRESSION AND PLAN: Patient with diffuse swelling, fluid overload and lower extremity cellulitis. Cellulitis seems to be showing clinical improvement on oral Keflex. Continue with Drew wraps to the legs to keep the swelling down and continue with supportive care. MMODL / IJN: [id number] /
[2021-06-03 20:38] LABS: Glucose,Whole Blood 326 mg/dL (75-99)
[2021-06-03] MEDS: IPRATROPIUM-ALBUTEROL 3 ML NEB INHALATION PRN (23:58)
[2021-06-04] MEDS: IPRATROPIUM-ALBUTEROL 3 ML NEB INHALATION PRN ×2 (04:03→23:34)
[2021-06-04] MEDS: FUROSEMIDE 100 MG in SODIUM CHLORIDE 0.9% 90 ML IV SCH ×2 (05:54→17:00)
[2021-06-04] MEDS: LEVOTHYROXINE 50 MCG TAB PO SCH (05:55)
[2021-06-04 07:20] LABS: Glucose,Whole Blood 189 mg/dL (75-99)
[2021-06-04] MEDS: IPRATROPIUM-ALBUTEROL 3 ML NEB INHALATION SCH ×4 (08:03→19:48)
[2021-06-04] MEDS: BUDESONIDE 1 MG/2 ML NEBU INHALATION SCH ×2 (08:03→19:48)
[2021-06-04] MEDS: METOPROLOL TARTRATE 25 MG TAB PO SCH ×2 (08:51→22:14)
[2021-06-04] MEDS: APIXABAN 5 MG TAB PO SCH ×2 (08:51→22:14)
[2021-06-04] MEDS: INSULIN ASPART (NovoLOG) 100 UNIT/ML VIAL SQ SCH ×4 (08:51→22:15)
[2021-06-04] MEDS: allopurinoL 300 MG TAB PO SCH (08:51)
[2021-06-04] MEDS: DOCUSATE 100 MG CAP PO SCH ×2 (08:51→22:13)
[2021-06-04] MEDS: PANTOPRAZOLE 40 MG TABLET PO SCH (08:51)
[2021-06-04] MEDS: ATORVASTATIN 10 MG TAB PO SCH (08:51)
[2021-06-04] MEDS: MULTIVITAMINS, THERA 1 EACH TAB PO SCH (08:51)
[2021-06-04] MEDS: CEPHALEXIN 500 MG CAP PO SCH ×3 (08:51→22:14)
[2021-06-04] MEDS: MAGNESIUM OXIDE 400 MG TAB PO SCH (08:51)
[2021-06-04] MEDS: ACETAMINOPHEN TAB 325 MG TAB PO PRN ×2 (08:52→22:14)
[2021-06-04] MEDS: DOFETILIDE 500 MCG CAP PO SCH ×2 (08:52→22:13)
[2021-06-04] MEDS: metOLazone 5 MG TAB PO SCH (08:52)
--- NOTE | 2021-06-04 09:03 | P.PN ---
Subjective Patient is seen in follow-up for acute kidney injury and fluid overload. Maintained on Lasix drip. Urine output 7.3 L in the last 24 hours. Weight trending down.edema improving. No chest pain or shortness of breath. Vital signs are stable. General: The patient appeared well nourished and normally developed. HEENT: Head exam is unremarkable. LUNGS: Breath sounds decreased. HEART: Rate and Rhythm are regular. ABDOMEN: Soft, obese. EXTREMITITES: 2+ edema. Objective - Vital Signs Vital signs: Vital Signs Temp 97.4 F L 06/04/21 07:36 Pulse 72 06/04/21 08:16 Resp 17 06/04/21 02:00 BP 114/76 06/04/21 07:36 Pulse Ox 91 L 06/04/21 07:36 Intake & Output 06/03/21 06/04/21 06/04/21 18:59 06:59 18:59 Intake Total 340 669.5 Output Total 3200 4150 600 Balance -2860 -3480.5 -600 Weight 155.4 kg Intake: Intake, IV Titration 189.5 Amount Furosemide 100 mg In 189.5 Sodium Chloride 0.9% 90 ml @ 10 MG/HR 10 mls/hr IV .Q10H [facility] Rx#: [id number] Oral 340 480 Output: Urine 3200 4150 600 Other: Voiding Method Toilet # Bowel Movements 3 1 - Labs CBC & Chem 7: 06/02/21 07:12 06/03/21 07:22 Labs: Abnormal Lab Results - Last 24 Hours (Table) 06/03/21 06/03/21 06/03/21 Range/Units 07:22 11:18 16:31 Potassium 5.7 H (3.5-5.5) mmol/L Anion Gap 12.60 H (4.00-12.00) mmol/L BUN 52.2 H (9.0-27.0) mg/dL Est GFR (CKD-EPI)AfAm 57.5 L (60.0-200.0) Est GFR (CKD-EPI)NonAf 49.6 L (60.0-200.0) BUN/Creatinine Ratio 37.55 H (12.00-20.00) Ratio Glucose 308 H (70-110) mg/dL POC Glucose (mg/dL) 292 H 300 H (75-99) mg/dL Magnesium 2.7 H (1.5-2.4) mg/dL 06/03/21 06/04/21 Range/Units 20:37 07:15 Potassium (3.5-5.5) mmol/L Anion Gap (4.00-12.00) mmol/L BUN (9.0-27.0) mg/dL Est GFR (CKD-EPI)AfAm (60.0-200.0) Est GFR (CKD-EPI)NonAf (60.0-200.0) BUN/Creatinine Ratio (12.00-20.00) Ratio Glucose (70-110) mg/dL POC Glucose (mg/dL) 326 H 189 H (75-99) mg/dL Magnesium (1.5-2.4) mg/dL Assessment and Plan Plan: Assessment: 1. Mild acute kidney injury mostly prerenal secondary to cardiorenal syndrome. Creatinine 1.4 as of yesterday. UA benign. Baseline creatinine near 1. 2. Volume overload. Improving with diuresis. 3. Acute on chronic diastolic CHF with moderate tricuspid regurgitation and pulmonary hypertension. 4. Diabetes mellitus. 5. A. fib maintained on anticoagulation. 6. PE on anticoagulation. 7. Mild hyperkalemia secondary to hyperglycemia. Plan: Maintain Lasix drip at 10 mL an hour. Maintain metolazone. Low-salt diet. 1500 mL fluid restriction. Daily weights. Continue to monitor for renal function and urine output. Tight blood sugar control. Morning labs pending.
[2021-06-04 10:07] LABS: Anisocytosis Slight; Basophils # (A) 0.1 k/uL (0-0.2); Basophils % (A) 1 %; Eosinophils # (A) 0.1 k/uL (0-0.7); Eosinophils % (A) 1 %; HCT 50.3 % (39.0-53.0); HGB 15.9 gm/dL (13.0-17.5); Lymphocytes % (A) 6 %; MCH 31.8 pg (25.0-35.0); MCHC 31.5 g/dL (31.0-37.0); MCV 100.7 fL (80.0-100.0); Macrocytosis Slight; Mean Platelet Volume 7.8; Monocytes % (A) 6 %; Neutrophils # (A) 14.1 k/uL (1.3-7.7); Neutrophils % (A) 85 %; Platelet Count 166 k/uL (150-450); RDW 16.5 % (11.5-15.5); WBC 16.5 k/uL (3.8-10.6)
[2021-06-04 10:21] LABS: Albumin/Globulin Ratio 1.1; Anion Gap 12 mmol/L
[2021-06-04 10:29] LABS: ALT 71 U/L (4-49); African American GFR (CKD) 69 (>60 ml/min/1.73 sqM); Albumin 3.8 g/dL (3.5-5.0); Blood Urea Nitrogen 63 mg/dL (9-20); Calcium 9.1 mg/dL (8.4-10.2); Carbon Dioxide 25 mmol/L (22-30); Globulin 3.4 g/dL; Glucose 276 mg/dL (74-99); Magnesium 2.3 mg/dL (1.6-2.3); Non-African American GFR(CKD) 59 (>60 ml/min/1.73 sqM); Sodium 134 mmol/L (137-145); Total Bilirubin 2.3 mg/dL (0.2-1.3); Total Protein 7.2 g/dL (6.3-8.2)
[2021-06-04 10:32] LABS: AST 70 U/L (17-59); Alkaline Phosphatase 140 U/L (38-126); Potassium 4.3 mmol/L (3.5-5.1)
[2021-06-04 10:47] LABS: Chloride 98 mmol/L (98-107)
--- NOTE | 2021-06-04 11:45 | P.PN ---
Subjective Progress Note Date: 06/04/21 05/30/2021, the patient is being seen for a follow-up. Last for increased lower extremity edema several episodes of the legs. He did have chronic hypoxemia and he was only on 3 L of home. Subsequently, further investigation revealed that the patient had pulmonary embolism along multiple other comorbidities including morbid obesity, BMI 47.1 and obstructive sleep apnea. The patient remains on oxygen at 15 L per minute nasal cannula with a pulse of 95%. He has COPD. 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 He has a permanent pacemaker in place. The patient developed suspicious bilateral pu lmonary embolism while he was on Coumadin. He was therapeutic on Coumadin. He was able to as a failure to Coumadin and the patient was switched to heparin drip and was taken warfarin. 05/31/2021 and seeing this patient for a follow-up. Is on 12 L of oxygen with a pulse ox of 96% and I think there is more room for weaning down the oxygen flow. Note that yesterday he was on 15 L of oxygen by nasal cannula. I noted his CAT scan of the chest and there was a moderate-sized left-sided pleural effusion. Based on that, I ordered an ultrasound of the chest that showed a 7.1 cm pocket of pleural effusion on the left. Ultrasound markings have been obtained. Meanwhile, the clinically, the patient is feeling the same. He is off anticoagulation with warfarin and currently is on IV heparin. He was thought to have failed Coumadin therapy. I am still considering a thoracentesis on this patient. Meanwhile, his previous therapeutic at 70, white cell count of 11 with a hemoglobin of 14.7. He is afebrile. In terms of treatment, he is on Lasix 40 mg IV every 8 hours. He is on IV Solu-Medrol that was tapered down to 40 mg every 8 hours. He remains on bronchodilators. The overall fluid balance has been negative in the order of 90 mL over the past 24 hours and the reliability of this number is questionable as the patient does not have a Bernal catheter for now. Strict input output measurement is needed. 06/01/2021 the patient is being seen for a follow-up. He is currently on 8 L of Oxymizer nasal cannula. I was supposed to do a thoracentesis of the left lung. I did a bedside ultrasound and I was not able to identify the pleural pocket. Based on that, I discontinue the procedure. He is currently on IV heparin. I talked to cardiology asked him to proceed with oral anticoagulants. Meanwhile, the patient is in a negative fluid balance based on the input output readings. His weight is noted to be on the rise. Based on his electrolytes, his BUN currently is at 49 with a creatinine of 1.2. Potassium level is at 5.3. Serum bicarbonate 21. His PTT is therapeutic. His current pulse ox is 93% on 8 L about 2 by nasal cannula. He was provided incentive spirometer. He remains on Lasix 40 mg IV every 8 hours. 06/02/2021, the patient is down to 6 L of oxygen by nasal cannula. He is still on Lasix. He has gained around 2 pounds which is not clearly understandable knowing that the patient remains in a negative fluid balance. His oxygenation is stable and the patient is down to 6 L of oxygen by nasal cannula. He was also seen by nephrology. He was kept on IV Lasix. His sodium level is at 134, bicarb is at 23, BUN is a 51 with a creatinine of 1.3. There is still ongoing edema in lower extremities bilaterally and there is some oozing from the skin wound in his right leg. No fever. No chills. He is on a course of Keflex 500 mg by mouth 3 times a day. He is also on Lasix 40 mg IV every r 8 hours. No altered mentation. He is using incentive spirometer. 06/03/2021, the patient is in a negative fluid balance. His weight has remained stable. Currently is on 5 L of oxygen by nasal cannula. His creatinine is at 1.4. His potassium level is at 5.7. BNP is a 52. Serum bicarb is at 25. Glucose that 308, CBC showed a white cell count of 10.4. The patient remains on IV Lasix in the form of drip 10 mg an hour. He remains on the Solu Medrol. This will be discontinued as the patient has developed significant hyperglycemia and the patient will be started on a prednisone burst taper. He is also on Keflex regarding lower extremity cellulitis. He remains on bronchodilators. Using incentive spirometer. Clinically stable. 06/04/2021, the patient is feeling well. The patient remains on Lasix drip at 10 mg an hour. He is responding now. His weight is down 155 kg. His negative fluid balance of -6.3 L over the past 24 hours. Creatinine currently is down to 1.2. Electrolytes are normal. White cell count is 16.5. He remains on 5 L about 2 by nasal cannula. His breathing is nonlabored and he is afebrile and he is hemodynamically stable. No other new complaints for now. He is using incentive spirometer and he is pulling approximately 1500 on his dialysis. She is also completing a course of prednisone burst taper. As stated, his weight is down to 155 kg and the patient is responding to diuretics. Objective - Vital Signs Vital signs: Vital Signs Temp 97.4 F L 06/04/21 07:36 Pulse 72 06/04/21 08:16 Resp 17 06/04/21 02:00 BP 114/76 06/04/21 07:36 Pulse Ox 91 L 06/04/21 07:36 Intake & Output 06/03/21 06/04/21 06/04/21 18:59 06:59 18:59 Intake Total 340 669.5 Output Total 3200 4150 1050 Balance -2860 -3480.5 -1050 Weight 155.4 kg Intake: Intake, IV Titration 189.5 Amount Furosemide 100 mg In 189.5 Sodium Chloride 0.9% 90 ml @ 10 MG/HR 10 mls/hr IV .Q10H [facility] Rx#: [id number] Oral 340 480 Output: Urine 3200 4150 1050 Other: Voiding Method Toilet Toilet # Bowel Movements 3 1 - Exam GENERAL EXAM: Alert, hence, 75-year-old morbidly obese white male, on 5L of oxy gen with a pulse ox of 94%, comfortable in no apparent distress. HEAD: Normocephalic/atraumatic. EYES: Normal reaction of pupils, equal size. Conjunctiva pink, sclera white. NOSE: Clear with pink turbinates. THROAT: No erythema or exudates. NECK: No masses, no JVD, no thyroid enlargement, no adenopathy. CHEST: No chest wall deformity. Symmetrical expansion. LUNGS: Equal air entry with diminished breath sounds, with some scattered wheezes and rhonchi CVS: Regular rate and rhythm, normal S1 and S2, no gallops, no murmurs, no rubs ABDOMEN: Soft, nontender. No hepatosplenomegaly, normal bowel sounds, no guarding or rigidity. EXTREMITIES: No clubbing, no edema, no cyanosis, 2+ pulses and upper and lower extremities. MUSCULOSKELETAL: Muscle strength and tone normal. SPINE: No scoliosis or deformity SKIN: No rashes CENTRAL NERVOUS SYSTEM: Alert and oriented -3. No focal deficits, tone is normal in all 4 extremities. PSYCHIATRIC: Alert and oriented -3. Appropriate affect. Intact judgment and insight. - Labs CBC & Chem 7: 06/04/21 09:50 06/04/21 09:50 Labs: Abnormal Lab Results - Last 24 Hours (Table) 06/03/21 06/03/21 06/04/21 Range/Units 16:31 20:37 07:15 WBC (3.8-10.6) k/uL MCV (80.0-100.0) fL RDW (11.5-15.5) % Neutrophils # (1.3-7.7) k/uL Sodium (137-145) mmol/L BUN (9-20) mg/dL Glucose (74-99) mg/dL POC Glucose (mg/dL) 300 H 326 H 189 H (75-99) mg/dL Total Bilirubin (0.2-1.3) mg/dL AST (17-59) U/L ALT (4-49) U/L Alkaline Phosphatase (38-126) U/L 06/04/21 06/04/21 Range/Units 09:50 09:50 WBC 16.5 H (3.8-10.6) k/uL MCV 100.7 H (80.0-100.0) fL RDW 16.5 H (11.5-15.5) % Neutrophils # 14.1 H (1.3-7.7) k/uL Sodium 134 L (137-145) mmol/L BUN 63 H (9-20) mg/dL Glucose 276 H (74-99) mg/dL POC Glucose (mg/dL) (75-99) mg/dL Total Bilirubin 2.3 H (0.2-1.3) mg/dL AST 70 H (17-59) U/L ALT 71 H (4-49) U/L Alkaline Phosphatase 140 H (38-126) U/L Assessment and Plan Plan: #1. Acute hypoxic respiratory failure, multifactorial, related to acute pulmonary emboli, acute cor pulmonale with right-sided heart failure, pulmonary hypertension, obstructive sleep apnea, and possible pickwickian syndrome. The patient is currently down to 5 L of oxygen and his baseline is at 3 L. He continues to improve. Continue using incentive spirometer. Continue diuretics. the patient continues to be on a Lasix drip at 10 mg an hour. The findings on the case. His weight is stable and he is in a negative fluid balance. He is also on anticoagulation with Eliquis. Is responding to diuretics. The patient is currently on Lasix drip. His weight is down to 155 kg. #2. Acute pulmonary emboli, despite therapeutic INR on Coumadin, possible failure of anticoagulation #3. Morbid obesity #4. History of obstructive sleep apnea on home CPAP #5. History of chronic atrial fibrillation on Eliquis for anticoagulation #6. Status post pacemaker insertion #7. History of diabetes no this type II #8. History of hyperlipidemia #9. History of cardiomyopathy #10. History of arthritis #11. History of gout #12. Prior history of MRSA and VRE infections #13. Lifelong nonsmoker Plan: Try to wean the patient down on the 5 L currently on 5 L per minute nasal cannula Continue with diuretics and the patient is on Lasix drip at 10 mg an hour and the patient is also on Zaroxolyn the dose of 5 mg daily basis. prednisone as a part of the burst taper An estimated to the blood sugar control as the patient is taken off steroids, note that his blood sugar control is improved patient was restarted on Eliquis Bedside ultrasound showed no sizable pocket for thoracentesis We'll continue following up electrolytes and renal function Body weight measurements and fluid balance measurements We'll continue to follow. Note that the patient baseline is at 3 L at home. Encourage use of incentive spirometer. Deep breathing and pulmonary toileting. Monitor renal function and the patient is continuing to use the incentive spirometer. His condition is stable for now.
--- NOTE | 2021-06-04 14:16 | P.PN ---
Subjective Progress Note Date: 06/04/21 Tristian Galloway is a 75-year-old male patient of Dr. Sampson who presented with ongoing shortness of breath and weight gain. Patient reports he's had increasing shortness of breath over the past month with episodes of falling and significant weight gain. Patient is maintained on home O2 for chronic hypoxic respiratory failure but states that the shortness of breath has been increasing. Patient does have a past medical history of A. fib in which she is maintained on Coumadin, COPD, diabetes mellitus, hyperlipidemia and pacemaker. Chest x-ray completed in ER showing cardiomegaly posterior pleural effusion. BNP 608. Troponin was normal lactic acid elevated at 2.9 COVID-19 was negative. Patient has been started on updraft breathing treatments IV Lasix and sublingual insulin for cellulitis. Pulmonary, cardiology and infectious disease services have been consulted. This time patient is resting currently in bed on BiPAP machine. Patient does still complain of some shortness breath. Patient denies any chest pain. Patient denies nausea vomiting or diarrhea. Patient denies any urinary burning or frequency On 05/26/2021 patient was seen and examined on his oriented 3 in no apparent distress. Patient maintained on IV Lasix and IV antibiotics for cellulitis. Pulmonary cardiology and infectious disease service following this time patient reports improvement. Patient denies chest pain or shortness breath. Patient denies nausea vomiting or diarrhea. Patient denies any urinary burning or frequency On 05/27/2021 patient alert and oriented 3. Patient reports significant edema and pain to left upper extremity will order venous Doppler to rule out DVT likely secondary from infiltration of IV. Patient remains on IV Lasix and capsule for cellulitis. Patient currently on 15 L high flow nasal cannula. Pulmonary cardiology and infectious disease services following. On 05/28/2021 patient was seen and examined on the medical floor he is alert and oriented 3 in no apparent distress, he is still complaining of shortness of breath and is maintained on oxygen 10 L via nasal cannula, he is complaining of occasional cough without sputum production, he is complaining of constipation, otherwise he denies any complaints, there is no fever or chills no headache or dizziness no chest pain no nausea or vomiting no abdominal pain no diarrhea no blood in the stool no burning with urination no frequency or urgency no hematuria Patient underwent CT angiogram of the chest that was suspicious for left upper lobe pulmonary embolism, there was evidence also of left sided consolidation and moderate sized pleural effusion, and evidence of ascites. Left upper extremity Doppler was negative for DVT Patient is maintained on Coumadin his INR is therapeutic at 2.5 Echocardiogram revealed normal left ventricular systolic function with an ejection fraction of 60-65% On 05/29/2021 patient is alert and oriented 3. Patient currently on high flow 15 L remains on IV diuretics. Patient remains on IV antibiotics for cellulitis. INR therapeutic at 2.3. Pulmonary, cardiology and infectious disease services are following. Repeat labs will be ordered for a.m. An 05/30/2021 patient alert and oriented 3. Patient has been switched over to IV heparin due to development of PE while on Coumadin. Patient will need to be on different agent for anticoagulation. Patient remains on high flow nasal cannula 15 L and IV diuretics. She denies nausea vomiting or diarrhea. Patient denies any urinary burning or frequency. On 05/31/2021 patient was seen and examined on the medical floor he is alert and oriented 3 in no apparent distress, he is maintained on oxygen 12 L via nasal cannula, there is no fever or chills no headache or dizziness no chest pain no nausea or vomiting no abdominal pain no diarrhea no blood in stool no burning with urination no frequency or urgency no hematuria. He is currently maintained on IV heparin and is off Coumadin, awaiting further recommendation from pulmonary in regard to thoracentesis, continue management with IV Lasix currently he is on further 40 mg twice a day. On 06/01/2021 patient alert and oriented 3. Possible plans for thoracentesis per pulmonary. Patient remains on heparin drip until decision in regards to thoracentesis is made. Then patient will be transitioned to oral eliquis for anticoagulation. Oxygen has been weaned down to 8 liters. Patient's weight increased from 158.2 kg to 160.3. Patient has been on IV Lasix 40mg every 8 hours with minimum improvement. We'll consult nephrology services. On 06/02/2021 patient was seen and examined on the medical floor, he is alert and oriented 3 in no apparent distress , he is worried about his increasing weight, otherwise he stated that his shortness of breath has improved, he is currently maintained on oxygen 6 L via nasal cannula . there is no fever or chills no headache or dizziness no chest pain no cough no nausea or vomiting no abdominal pain or diarrhea and no urinary symptoms 06/03/2021 patient's alert and oriented 3. Patient's weight slightly down to 160.7 kg. Per nursing staff nephrology is planning to order Lasix drip. Patient remains on eliquis for anticoagulation for pulmonary embolism and IV antibiotics for cellulitis. Pulmonary cardiology and nephrology services are following. Oxygen down to 6 L nasal cannula. This time patient does deny chest pain. Still complaining of some shortness breath with activity. Bilateral legs currently wrapped and elevated. Patient denies nausea vomiting or diarrhea. On 06/04/2021 patient was seen and examined on the medical floor he is alert and oriented 3 in no apparent distress there is no fever or chills no headache or dizziness no chest pain his still has shortness of breath with activity no cough no nausea or vomiting no abdominal pain no diarrhea no blood in the stools no burning with urination no frequency or urgency and no hematuria. Patient is maintained on IV Lasix and responding to diuretics he is also maintained on a prednisone taper, today his white blood count is 16.5 hemoglobin 15.9 platelet count 166 sodium 134 potassium 4.3 chloride 98 BUN 63 creatinine 1.2 bilirubin is elevated at 2.3 AST 17 a LT 71 Objective - Vital Signs Vital signs: Vital Signs Temp 97.4 F L 06/04/21 07:36 Pulse 72 06/04/21 08:16 Resp 17 06/04/21 02:00 BP 114/76 06/04/21 07:36 Pulse Ox 91 L 06/04/21 07:36 Intake & Output 06/03/21 06/04/21 06/04/21 18:59 06:59 18:59 Intake Total 340 669.5 Output Total 3200 4150 1050 Balance -2860 -3480.5 -1050 Weight 155.4 kg Intake: Intake, IV Titration 189.5 Amount Furosemide 100 mg In 189.5 Sodium Chloride 0.9% 90 ml @ 10 MG/HR 10 mls/hr IV .Q10H [facility] Rx#: [id number] Oral 340 480 Output: Urine 3200 4150 1050 Other: Voiding Method Toilet Toilet # Bowel Movements 3 1 - Exam Head normocephalic and atraumatic Neck supple, no JVD no goiter Lungs clear to auscultation bilaterally no wheezing or crackles Heart regular rate and rhythm S1-S2, no rub or gallop Abdomen is soft nontender nondistended positive bowel sounds no hepatosplenomegaly Extremities +3 lower extremity edema with erythema Neuro alert and orientated x 3, no gross neurological deficit - Labs CBC & Chem 7: 06/04/21 09:50 06/04/21 09:50 Labs: Abnormal Lab Results - Last 24 Hours (Table) 06/03/21 06/03/21 06/04/21 Range/Units 16:31 20:37 07:15 WBC (3.8-10.6) k/uL MCV (80.0-100.0) fL RDW (11.5-15.5) % Neutrophils # (1.3-7.7) k/uL Sodium (137-145) mmol/L BUN (9-20) mg/dL Glucose (74-99) mg/dL POC Glucose (mg/dL) 300 H 326 H 189 H (75-99) mg/dL Total Bilirubin (0.2-1.3) mg/dL AST (17-59) U/L ALT (4-49) U/L Alkaline Phosphatase (38-126) U/L 06/04/21 06/04/21 Range/Units 09:50 09:50 WBC 16.5 H (3.8-10.6) k/uL MCV 100.7 H (80.0-100.0) fL RDW 16.5 H (11.5-15.5) % Neutrophils # 14.1 H (1.3-7.7) k/uL Sodium 134 L (137-145) mmol/L BUN 63 H (9-20) mg/dL Glucose 276 H (74-99) mg/dL POC Glucose (mg/dL) (75-99) mg/dL Total Bilirubin 2.3 H (0.2-1.3) mg/dL AST 70 H (17-59) U/L ALT 71 H (4-49) U/L Alkaline Phosphatase 140 H (38-126) U/L Assessment and Plan Assessment: 1. Dyspnea secondary to CHF and COPD exacerbation, and pulmonary embolism, 2. History of obstructive sleep apnea 3. Chronic respiratory failure maintained on home O2 4. Bilateral lower extremity cellulitis and edema. Patient started on IV antibiotic infectious disease service is consulted 5. Elevated lactic acid. Patient started on antibiotic for lower infection for cellulitis. Infectious services following 6. Status post pacemaker insertion 7. Chronic atrial fibrillation maintained on Coumadin 8. History of diabetes mellitus type 2 thank scale insulin coverage added hemoglobin A1c 9. History of cardiomyopathy, currently left ventricular function is normal wit h an ejection fraction of 60-65% 10. History of gout 11. Hypothyroidism 12. Increased swelling to left upper extremity will order venous Doppler to rule out DVT. Venous Doppler negative 13. Acute bilateral pulmonary emboli. Patient started on eliquis due to failed with Coumadin DVT prophylaxis eliquis. GI prophylaxis Protonix Pulmonary, cardiology and infectious disease services following IV antibiotic for cellulitis Lasix drip per nephrology Continue to wean oxygen PT OT services following
[2021-06-04 16:46] LABS: Glucose,Whole Blood 231 mg/dL (75-99)
[2021-06-04 21:30] LABS: Glucose,Whole Blood 250 mg/dL (75-99)
[2021-06-04] MEDS: NYSTATIN 100,000 UNIT/GM POWD 15 GM TOPICAL SCH (22:15)
[2021-06-05] MEDS: FUROSEMIDE 100 MG in SODIUM CHLORIDE 0.9% 90 ML IV SCH (02:06)
[2021-06-05 06:43] LABS: Glucose,Whole Blood 173 mg/dL (75-99)
[2021-06-05] MEDS: LEVOTHYROXINE 50 MCG TAB PO SCH (06:46)
[2021-06-05] MEDS: BUDESONIDE 1 MG/2 ML NEBU INHALATION SCH ×2 (07:08→19:26)
[2021-06-05] MEDS: IPRATROPIUM-ALBUTEROL 3 ML NEB INHALATION SCH ×4 (07:08→19:26)
[2021-06-05] MEDS: INSULIN ASPART (NovoLOG) 100 UNIT/ML VIAL SQ SCH ×4 (07:38→21:06)
[2021-06-05] MEDS: APIXABAN 5 MG TAB PO SCH ×2 (07:39→21:06)
[2021-06-05] MEDS: PANTOPRAZOLE 40 MG TABLET PO SCH (07:39)
[2021-06-05] MEDS: allopurinoL 300 MG TAB PO SCH (07:39)
[2021-06-05] MEDS: CEPHALEXIN 500 MG CAP PO SCH ×3 (07:40→21:05)
[2021-06-05] MEDS: MAGNESIUM OXIDE 400 MG TAB PO SCH (07:40)
[2021-06-05] MEDS: ATORVASTATIN 10 MG TAB PO SCH (07:40)
[2021-06-05] MEDS: DOFETILIDE 500 MCG CAP PO SCH ×2 (07:40→21:06)
[2021-06-05] MEDS: metOLazone 5 MG TAB PO SCH (07:40)
[2021-06-05] MEDS: DOCUSATE 100 MG CAP PO SCH ×2 (07:40→21:06)
[2021-06-05] MEDS: ACETAMINOPHEN TAB 325 MG TAB PO PRN ×2 (07:41→21:08)
[2021-06-05] MEDS: MULTIVITAMINS, THERA 1 EACH TAB PO SCH (07:41)
[2021-06-05] MEDS: NYSTATIN 100,000 UNIT/GM POWD 15 GM TOPICAL SCH ×2 (07:41→21:07)
[2021-06-05] MEDS: METOPROLOL TARTRATE 25 MG TAB PO SCH ×2 (07:41→21:06)
--- NOTE | 2021-06-05 09:34 | P.PN ---
Subjective Patient is seen in follow-up for acute kidney injury and fluid overload. Maintained on Lasix drip. Urine output 9.5 L in the last 24 hours. Weight trending down. Edema improved. No chest pain or shortness of breath. Vital signs are stable. General: The patient appeared well nourished and normally developed. HEENT: Head exam is unremarkable. LUNGS: Breath sounds decreased. HEART: Rate and Rhythm are regular. ABDOMEN: Soft, obese. EXTREMITITES: Trace edema. Objective - Vital Signs Vital signs: Vital Signs Temp 97.3 F L 06/05/21 07:41 Pulse 70 06/05/21 07:41 Resp 22 06/05/21 07:41 BP 122/74 06/05/21 07:41 Pulse Ox 93 L 06/05/21 07:41 Intake & Output 06/04/21 06/05/21 06/05/21 18:59 06:59 18:59 Intake Total 100 491 Output Total 3800 5700 Balance -3700 -5209 Weight 143.7 kg Intake: Intake, IV Titration 100 91 Amount Furosemide 100 mg In 100 91 Sodium Chloride 0.9% 90 ml @ 10 MG/HR 10 mls/hr IV .Q10H [facility] Rx#: [id number] Oral 400 Output: Urine 3800 5700 Other: Voiding Method Toilet Toilet # Voids 600 # Bowel Movements 1 - Labs CBC & Chem 7: 06/04/21 09:50 06/04/21 09:50 Labs: Abnormal Lab Results - Last 24 Hours (Table) 06/04/21 06/04/21 06/04/21 Range/Units 09:50 09:50 16:44 WBC 16.5 H (3.8-10.6) k/uL MCV 100.7 H (80.0-100.0) fL RDW 16.5 H (11.5-15.5) % Neutrophils # 14.1 H (1.3-7.7) k/uL Sodium 134 L (137-145) mmol/L BUN 63 H (9-20) mg/dL Glucose 276 H (74-99) mg/dL POC Glucose (mg/dL) 231 H (75-99) mg/dL Total Bilirubin 2.3 H (0.2-1.3) mg/dL AST 70 H (17-59) U/L ALT 71 H (4-49) U/L Alkaline Phosphatase 140 H (38-126) U/L 06/04/21 06/05/21 Range/Units 21:28 06:42 WBC (3.8-10.6) k/uL MCV (80.0-100.0) fL RDW (11.5-15.5) % Neutrophils # (1.3-7.7) k/uL Sodium (137-145) mmol/L BUN (9-20) mg/dL Glucose (74-99) mg/dL POC Glucose (mg/dL) 250 H 173 H (75-99) mg/dL Total Bilirubin (0.2-1.3) mg/dL AST (17-59) U/L ALT (4-49) U/L Alkaline Phosphatase (38-126) U/L Assessment and Plan Plan: Assessment: 1. Mild acute kidney injury mostly prerenal secondary to cardiorenal syndrome. Creatinine 1.2 as of yesterday. UA benign. Baseline creatinine near 1. 2. Volume overload. Improving with diuresis. 3. Acute on chronic diastolic CHF with moderate tricuspid regurgitation and pulmonary hypertension. 4. Diabetes mellitus. 5. A. fib maintained on anticoagulation. 6. PE on anticoagulation. 7. Mild hyperkalemia secondary to hyperglycemia. Improved. Plan: Stop Lasix drip. Start Lasix 40 mg IV twice daily. Maintain metolazone. Low-salt diet. 1500 mL fluid restriction. Daily weights. Continue to monitor for renal function and urine output. Morning labs pending.
--- NOTE | 2021-06-05 09:57 | P.PN ---
Subjective Progress Note Date: 06/05/21 Tristian Galloway is a 75-year-old male patient of Dr. Sampson who presented with ongoing shortness of breath and weight gain. Patient reports he's had increasing shortness of breath over the past month with episodes of falling and significant weight gain. Patient is maintained on home O2 for chronic hypoxic respiratory failure but states that the shortness of breath has been increasing. Patient does have a past medical history of A. fib in which she is maintained on Coumadin, COPD, diabetes mellitus, hyperlipidemia and pacemaker. Chest x-ray completed in ER showing cardiomegaly posterior pleural effusion. BNP 608. Troponin was normal lactic acid elevated at 2.9 COVID-19 was negative. Patient has been started on updraft breathing treatments IV Lasix and sublingual insulin for cellulitis. Pulmonary, cardiology and infectious disease services have been consulted. This time patient is resting currently in bed on BiPAP machine. Patient does still complain of some shortness breath. Patient denies any chest pain. Patient denies nausea vomiting or diarrhea. Patient denies any urinary burning or frequency On 05/26/2021 patient was seen and examined on his oriented 3 in no apparent distress. Patient maintained on IV Lasix and IV antibiotics for cellulitis. Pulmonary cardiology and infectious disease service following this time patient reports improvement. Patient denies chest pain or shortness breath. Patient denies nausea vomiting or diarrhea. Patient denies any urinary burning or frequency On 05/27/2021 patient alert and oriented 3. Patient reports significant edema and pain to left upper extremity will order venous Doppler to rule out DVT likely secondary from infiltration of IV. Patient remains on IV Lasix and capsule for cellulitis. Patient currently on 15 L high flow nasal cannula. Pulmonary cardiology and infectious disease services following. On 05/28/2021 patient was seen and examined on the medical floor he is alert and oriented 3 in no apparent distress, he is still complaining of shortness of breath and is maintained on oxygen 10 L via nasal cannula, he is complaining of occasional cough without sputum production, he is complaining of constipation, otherwise he denies any complaints, there is no fever or chills no headache or dizziness no chest pain no nausea or vomiting no abdominal pain no diarrhea no blood in the stool no burning with urination no frequency or urgency no hematuria Patient underwent CT angiogram of the chest that was suspicious for left upper lobe pulmonary embolism, there was evidence also of left sided consolidation and moderate sized pleural effusion, and evidence of ascites. Left upper extremity Doppler was negative for DVT Patient is maintained on Coumadin his INR is therapeutic at 2.5 Echocardiogram revealed normal left ventricular systolic function with an ejection fraction of 60-65% On 05/29/2021 patient is alert and oriented 3. Patient currently on high flow 15 L remains on IV diuretics. Patient remains on IV antibiotics for cellulitis. INR therapeutic at 2.3. Pulmonary, cardiology and infectious disease services are following. Repeat labs will be ordered for a.m. An 05/30/2021 patient alert and oriented 3. Patient has been switched over to IV heparin due to development of PE while on Coumadin. Patient will need to be on different agent for anticoagulation. Patient remains on high flow nasal cannula 15 L and IV diuretics. She denies nausea vomiting or diarrhea. Patient denies any urinary burning or frequency. On 05/31/2021 patient was seen and examined on the medical floor he is alert and oriented 3 in no apparent distress, he is maintained on oxygen 12 L via nasal cannula, there is no fever or chills no headache or dizziness no chest pain no nausea or vomiting no abdominal pain no diarrhea no blood in stool no burning with urination no frequency or urgency no hematuria. He is currently maintained on IV heparin and is off Coumadin, awaiting further recommendation from pulmonary in regard to thoracentesis, continue management with IV Lasix currently he is on further 40 mg twice a day. On 06/01/2021 patient alert and oriented 3. Possible plans for thoracentesis per pulmonary. Patient remains on heparin drip until decision in regards to thoracentesis is made. Then patient will be transitioned to oral eliquis for anticoagulation. Oxygen has been weaned down to 8 liters. Patient's weight increased from 158.2 kg to 160.3. Patient has been on IV Lasix 40mg every 8 hours with minimum improvement. We'll consult nephrology services. On 06/02/2021 patient was seen and examined on the medical floor, he is alert and oriented 3 in no apparent distress , he is worried about his increasing weight, otherwise he stated that his shortness of breath has improved, he is currently maintained on oxygen 6 L via nasal cannula . there is no fever or chills no headache or dizziness no chest pain no cough no nausea or vomiting no abdominal pain or diarrhea and no urinary symptoms 06/03/2021 patient's alert and oriented 3. Patient's weight slightly down to 160.7 kg. Per nursing staff nephrology is planning to order Lasix drip. Patient remains on eliquis for anticoagulation for pulmonary embolism and IV antibiotics for cellulitis. Pulmonary cardiology and nephrology services are following. Oxygen down to 6 L nasal cannula. This time patient does deny chest pain. Still complaining of some shortness breath with activity. Bilateral legs currently wrapped and elevated. Patient denies nausea vomiting or diarrhea. On 06/04/2021 patient was seen and examined on the medical floor he is alert and oriented 3 in no apparent distress there is no fever or chills no headache or dizziness no chest pain his still has shortness of breath with activity no cough no nausea or vomiting no abdominal pain no diarrhea no blood in the stools no burning with urination no frequency or urgency and no hematuria. Patient is maintained on IV Lasix and responding to diuretics he is also maintained on a prednisone taper, today his white blood count is 16.5 hemoglobin 15.9 platelet count 166 sodium 134 potassium 4.3 chloride 98 BUN 63 creatinine 1.2 bilirubin is elevated at 2.3 AST 17 a LT 71 On 06/05/2021 patient alert and oriented 3. Patient currently on 5 L nasal cannula. Weight trending down. Edema significantly improved. Patient reports improvement with shortness of breath. Per nephrology services plans to stop Lasix drip and start patient on 40 mg IV twice daily. Continue to wean oxygen. Patient does wear 4 L nasal cannula at home. Will attempt to get patient back to baseline. Patient denies chest pain. Patient denies nausea vomiting or diarrhea. Patient denies any urinary burning or frequency Objective - Vital Signs Vital signs: Vital Signs Temp 97.3 F L 06/05/21 07:41 Pulse 70 06/05/21 07:41 Resp 22 06/05/21 07:41 BP 122/74 06/05/21 07:41 Pulse Ox 93 L 06/05/21 07:41 Intake & Output 06/04/21 06/05/21 06/05/21 18:59 06:59 18:59 Intake Total 100 491 Output Total 3800 5700 Balance -3930 5204 Weight 143.7 kg Intake: Intake, IV Titration 100 91 Amount Furosemide 100 mg In 100 91 Sodium Chloride 0.9% 90 ml @ 10 MG/HR 10 mls/hr IV .Q10H [facility] Rx#: [id number] Oral 400 Output: Urine 3800 5700 Other: Voiding Method Toilet Toilet # Voids 600 # Bowel Movements 1 - Exam Head normocephalic and atraumatic Neck supple, no JVD no goiter Lungs clear to auscultation bilaterally no wheezing or crackles Heart regular rate and rhythm S1-S2, no rub or gallop Abdomen is soft nontender nondistended positive bowel sounds no hepatosplenomegaly Extremities +3 lower extremity edema with erythema Neuro alert and orientated x 3, no gross neurological deficit - Labs CBC & Chem 7: 06/04/21 09:50 06/04/21 09:50 Labs: Abnormal Lab Results - Last 24 Hours (Table) 06/04/21 06/04/21 06/04/21 Range/Units 09:50 09:50 16:44 WBC 16.5 H (3.8-10.6) k/uL MCV 100.7 H (80.0-100.0) fL RDW 16.5 H (11.5-15.5) % Neutrophils # 14.1 H (1.3-7.7) k/uL Sodium 134 L (137-145) mmol/L BUN 63 H (9-20) mg/dL Glucose 276 H (74-99) mg/dL POC Glucose (mg/dL) 231 H (75-99) mg/dL Total Bilirubin 2.3 H (0.2-1.3) mg/dL AST 70 H (17-59) U/L ALT 71 H (4-49) U/L Alkaline Phosphatase 140 H (38-126) U/L 06/04/21 06/05/21 Range/Units 21:28 06:42 WBC (3.8-10.6) k/uL MCV (80.0-100.0) fL RDW (11.5-15.5) % Neutrophils # (1.3-7.7) k/uL Sodium (137-145) mmol/L BUN (9-20) mg/dL Glucose (74-99) mg/dL POC Glucose (mg/dL) 250 H 173 H (75-99) mg/dL Total Bilirubin (0.2-1.3) mg/dL AST (17-59) U/L ALT (4-49) U/L Alkaline Phosphatase (38-126) U/L Assessment and Plan Assessment: 1. Dyspnea secondary to CHF and COPD exacerbation, and pulmonary embolism, 2. History of obstructive sleep apnea 3. Chronic respiratory failure maintained on home O2 4. Bilateral lower extremity cellulitis and edema. 5. Elevated lactic acid. Patient started on antibiotic for lower infection for cellulitis. Infectious services following 6. Status post pacemaker insertion 7. Chronic atrial fibrillation maintained on Coumadin 8. History of diabetes mellitus type 2 thank scale insulin coverage added hemoglobin A1c 9. History of cardiomyopathy, currently left ventricular function is normal with an ejection fraction of 60-65% 10. History of gout 11. Hypothyroidism 12. Increased swelling to left upper extremity will order venous Doppler to rule out DVT. Venous Doppler negative 13. Acute bilateral pulmonary emboli. Patient started on eliquis due to failed with Coumadin DVT prophylaxis eliquis. GI prophylaxis Protonix Pulmonary, cardiology and infectious disease services following IV antibiotic for cellulitis Lasix drip will be DC'd per nephrology transition to IV Lasix Continue to wean oxygen PT OT services following
[2021-06-05] MEDS: FUROSEMIDE 10 MG/ML 4 ML VIAL IV SCH ×2 (10:25→21:06)
--- NOTE | 2021-06-05 11:01 | P.PN ---
Subjective Progress Note Date: 06/05/21 05/30/2021, the patient is being seen for a follow-up. Last for increased lower extremity edema several episodes of the legs. He did have chronic hypoxemia and he was only on 3 L of home. Subsequently, further investigation revealed that the patient had pulmonary embolism along multiple other comorbidities including morbid obesity, BMI 47.1 and obstructive sleep apnea. The patient remains on oxygen at 15 L per minute nasal cannula with a pulse of 95%. He has COPD. 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 He has a permanent pacemaker in place. The patient developed suspicious bilateral pu lmonary embolism while he was on Coumadin. He was therapeutic on Coumadin. He was able to as a failure to Coumadin and the patient was switched to heparin drip and was taken warfarin. 05/31/2021 and seeing this patient for a follow-up. Is on 12 L of oxygen with a pulse ox of 96% and I think there is more room for weaning down the oxygen flow. Note that yesterday he was on 15 L of oxygen by nasal cannula. I noted his CAT scan of the chest and there was a moderate-sized left-sided pleural effusion. Based on that, I ordered an ultrasound of the chest that showed a 7.1 cm pocket of pleural effusion on the left. Ultrasound markings have been obtained. Meanwhile, the clinically, the patient is feeling the same. He is off anticoagulation with warfarin and currently is on IV heparin. He was thought to have failed Coumadin therapy. I am still considering a thoracentesis on this patient. Meanwhile, his previous therapeutic at 70, white cell count of 11 with a hemoglobin of 14.7. He is afebrile. In terms of treatment, he is on Lasix 40 mg IV every 8 hours. He is on IV Solu-Medrol that was tapered down to 40 mg every 8 hours. He remains on bronchodilators. The overall fluid balance has been negative in the order of 90 mL over the past 24 hours and the reliability of this number is questionable as the patient does not have a Bernal catheter for now. Strict input output measurement is needed. 06/01/2021 the patient is being seen for a follow-up. He is currently on 8 L of Oxymizer nasal cannula. I was supposed to do a thoracentesis of the left lung. I did a bedside ultrasound and I was not able to identify the pleural pocket. Based on that, I discontinue the procedure. He is currently on IV heparin. I talked to cardiology asked him to proceed with oral anticoagulants. Meanwhile, the patient is in a negative fluid balance based on the input output readings. His weight is noted to be on the rise. Based on his electrolytes, his BUN currently is at 49 with a creatinine of 1.2. Potassium level is at 5.3. Serum bicarbonate 21. His PTT is therapeutic. His current pulse ox is 93% on 8 L about 2 by nasal cannula. He was provided incentive spirometer. He remains on Lasix 40 mg IV every 8 hours. 06/02/2021, the patient is down to 6 L of oxygen by nasal cannula. He is still on Lasix. He has gained around 2 pounds which is not clearly understandable knowing that the patient remains in a negative fluid balance. His oxygenation is stable and the patient is down to 6 L of oxygen by nasal cannula. He was also seen by nephrology. He was kept on IV Lasix. His sodium level is at 134, bicarb is at 23, BUN is a 51 with a creatinine of 1.3. There is still ongoing edema in lower extremities bilaterally and there is some oozing from the skin wound in his right leg. No fever. No chills. He is on a course of Keflex 500 mg by mouth 3 times a day. He is also on Lasix 40 mg IV every r 8 hours. No altered mentation. He is using incentive spirometer. 06/03/2021, the patient is in a negative fluid balance. His weight has remained stable. Currently is on 5 L of oxygen by nasal cannula. His creatinine is at 1.4. His potassium level is at 5.7. BNP is a 52. Serum bicarb is at 25. Glucose that 308, CBC showed a white cell count of 10.4. The patient remains on IV Lasix in the form of drip 10 mg an hour. He remains on the Solu Medrol. This will be discontinued as the patient has developed significant hyperglycemia and the patient will be started on a prednisone burst taper. He is also on Keflex regarding lower extremity cellulitis. He remains on bronchodilators. Using incentive spirometer. Clinically stable. 06/04/2021, the patient is feeling well. The patient remains on Lasix drip at 10 mg an hour. He is responding now. His weight is down 155 kg. His negative fluid balance of -6.3 L over the past 24 hours. Creatinine currently is down to 1.2. Electrolytes are normal. White cell count is 16.5. He remains on 5 L about 2 by nasal cannula. His breathing is nonlabored and he is afebrile and he is hemodynamically stable. No other new complaints for now. He is using incentive spirometer and he is pulling approximately 1500 on his dialysis. She is also completing a course of prednisone burst taper. As stated, his weight is down to 155 kg and the patient is responding to diuretics. 06/05/2021 the patient is feeling great. He is down to 40s about 2 by nasal cannula. He has diuresed 6.3 L and later on another 8.9 L. His creatinine is down to 1.2. He is feeling great. Lasix drip has been discontinued and the patient was placed on Lasix 40 mg IV every 12 hours and he is also on Zaroxolyn. Electrolytes need to be monitored especially with this excessive diuresis. Sugar is at 173. No chest pain. No angina. No palpitation. Sitting up on a chair. His weight is down to 143 kilograms Objective - Vital Signs Vital signs: Vital Signs Temp 97.3 F L 06/05/21 07:41 Pulse 72 06/05/21 10:52 Resp 22 06/05/21 07:41 BP 122/74 06/05/21 07:41 Pulse Ox 93 L 06/05/21 07:41 Intake & Output 06/04/21 06/05/21 06/05/21 18:59 06:59 18:59 Intake Total 100 491 Output Total 3800 5700 Balance -3700 -5209 Weight 143.7 kg Intake: Intake, IV Titration 100 91 Amount Furosemide 100 mg In 100 91 Sodium Chloride 0.9% 90 ml @ 10 MG/HR 10 mls/hr IV .Q10H [facility] Rx#: [id number] Oral 400 Output: Urine 3800 5700 Other: Voiding Method Toilet Toilet # Voids 600 # Bowel Movements 1 - Exam GENERAL EXAM: Alert, hence, 75-year-old morbidly obese white male, on 4L of oxygen with a pulse ox of 94%, comfortable in no apparent distress. HEAD: Normocephalic/atraumatic. EYES: Normal reaction of pupils, equal size. Conjunctiva pink, sclera white. NOSE: Clear with pink turbinates. THROAT: No erythema or exudates. NECK: No masses, no JVD, no thyroid enlargement, no adenopathy. CHEST: No chest wall deformity. Symmetrical expansion. LUNGS: Equal air entry with diminished breath sounds, with some scattered wheezes and rhonchi CVS: Regular rate and rhythm, normal S1 and S2, no gallops, no murmurs, no rubs ABDOMEN: Soft, nontender. No hepatosplenomegaly, normal bowel sounds, no guarding or rigidity. EXTREMITIES: No clubbing, no edema, no cyanosis, 2+ pulses and upper and lower extremities. MUSCULOSKELETAL: Muscle strength and tone normal. SPINE: No scoliosis or deformity SKIN: No rashes CENTRAL NERVOUS SYSTEM: Alert and oriented -3. No focal deficits, tone is normal in all 4 extremities. PSYCHIATRIC: Alert and oriented -3. Appropriate affect. Intact judgment and insight. - Labs CBC & Chem 7: 06/04/21 09:50 06/04/21 09:50 Labs: Abnormal Lab Results - Last 24 Hours (Table) 06/04/21 06/04/21 06/05/21 Range/Units 16:44 21:28 06:42 POC Glucose (mg/dL) 231 H 250 H 173 H (75-99) mg/dL Assessment and Plan Plan: #1. Acute hypoxic respiratory failure, multifactorial, related to acute pulmonary emboli, acute cor pulmonale with right-sided heart failure, pulmonary hypertension, obstructive sleep apnea, and possible pickwickian syndrome. The patient is currently down to 4 L of oxygen and his baseline is at 3 L. He continues to improve. Continue using incentive spirometer. Continue diuretics. The patient is much improved with diuresis. The patient's weight is down to 147 kg. He is currently on 40s about 2 by nasal cannula and his baseline is at 3. The patient is currently off the Lasix drip and his taken IV Lasix 40 g every 12 hours in addition to Zaroxolyn. #2. Acute pulmonary emboli, despite therapeutic INR on Coumadin, possible failure of anticoagulation #3. Morbid obesity #4. History of obstructive sleep apnea on home CPAP #5. History of chronic atrial fibrillation on Eliquis for anticoagulation #6. Status post pacemaker insertion #7. History of diabetes no this type II #8. History of hyperlipidemia #9. History of cardiomyopathy #10. History of arthritis #11. History of gout #12. Prior history of MRSA and VRE infections #13. Lifelong nonsmoker Plan: Try to wean the patient down on the 4 L currently on 5 L per minute nasal cannula Continue with diuretics and the patient is on Lasix 40 mg IV every 12 hours Zaroxolyn the dose of 5 mg daily basis. Very important to monitor his electrolytes prednisone as a part of the burst taper An estimated to the blood sugar control as the patient is taken off steroids, note that his blood sugar control is improved patient was restarted on Eliquis Bedside ultrasound showed no sizable pocket for thoracentesis We'll continue following up electrolytes and renal function Body weight measurements and fluid balance measurements We'll continue to follow. Note that the patient baseline is at 3 L at home. Encourage use of incentive spirometer. Deep breathing and pulmonary toileting. Monitor renal function and the patient is continuing to use the incentive spirometer. His condition is stable for now.
[2021-06-05 11:49] LABS: Glucose,Whole Blood 268 mg/dL (75-99)
[2021-06-05 12:02] LABS: Magnesium 2.2 mg/dL (1.5-2.4)
[2021-06-05 13:25] LABS: Anion Gap 15.9 mmol/L (4.00-12.00); BUN/Creat Ratio 39.79 Ratio (12.00-20.00); Blood Urea Nitrogen 55.7 mg/dL (9.0-27.0); Carbon Dioxide 30.1 mmol/L (21.6-31.8); Non-African American GFR(CKD) 49.1 (60.0-200.0)
[2021-06-05 16:55] LABS: Glucose,Whole Blood 302 mg/dL (75-99)
[2021-06-05 21:05] LABS: Glucose,Whole Blood 256 mg/dL (75-99)
[2021-06-06] MEDS: LEVOTHYROXINE 50 MCG TAB PO SCH (06:06)
[2021-06-06 07:28] LABS: Glucose,Whole Blood 195 mg/dL (75-99)
[2021-06-06 07:44] LABS: African American GFR (CKD) 67 (>60 ml/min/1.73 sqM); Anion Gap 10 mmol/L; Blood Urea Nitrogen 64 mg/dL (9-20); Calcium 9.5 mg/dL (8.4-10.2); Carbon Dioxide 39 mmol/L (22-30); Chloride 88 mmol/L (98-107); Glucose 231 mg/dL (74-99); Magnesium 2.3 mg/dL (1.6-2.3); Non-African American GFR(CKD) 58 (>60 ml/min/1.73 sqM); Potassium 4.5 mmol/L (3.5-5.1); Sodium 137 mmol/L (137-145)
[2021-06-06] MEDS: BUDESONIDE 1 MG/2 ML NEBU INHALATION SCH (08:08)
[2021-06-06] MEDS: IPRATROPIUM-ALBUTEROL 3 ML NEB INHALATION SCH ×3 (08:08→16:23)
[2021-06-06] MEDS: INSULIN ASPART (NovoLOG) 100 UNIT/ML VIAL SQ SCH ×3 (08:24→17:55)
[2021-06-06] MEDS: PANTOPRAZOLE 40 MG TABLET PO SCH (08:27)
[2021-06-06] MEDS: MAGNESIUM OXIDE 400 MG TAB PO SCH (08:27)
[2021-06-06] MEDS: allopurinoL 300 MG TAB PO SCH (08:27)
[2021-06-06] MEDS: FUROSEMIDE 10 MG/ML 4 ML VIAL IV SCH (08:27)
[2021-06-06] MEDS: metOLazone 5 MG TAB PO SCH (08:27)
[2021-06-06] MEDS: DOFETILIDE 500 MCG CAP PO SCH (08:27)
[2021-06-06] MEDS: MULTIVITAMINS, THERA 1 EACH TAB PO SCH (08:28)
[2021-06-06] MEDS: CEPHALEXIN 500 MG CAP PO SCH (08:28)
[2021-06-06] MEDS: METOPROLOL TARTRATE 25 MG TAB PO SCH (08:28)
[2021-06-06] MEDS: NYSTATIN 100,000 UNIT/GM POWD 15 GM TOPICAL SCH (08:28)
[2021-06-06] MEDS: DOCUSATE 100 MG CAP PO SCH (08:28)
[2021-06-06] MEDS: APIXABAN 5 MG TAB PO SCH (08:28)
[2021-06-06] MEDS: ATORVASTATIN 10 MG TAB PO SCH (08:28)
[2021-06-06] MEDS ORDERED: APIXABAN 5 MG TAB PO SCH (09:00)
[2021-06-06 11:05] LABS: Basophils # (A) 0.04 X 10*3/uL (0.00-0.10); Basophils % (A) 0.3 %; Eosinophils % (A) 1.3 %; HCT 48.6 % (39.6-50.0); HGB 16.1 g/dL (13.0-17.0); Lymphocytes % (A) 11.1 %; MCH 31.4 pg (27.0-32.0); MCHC 33.1 g/dL (32.0-37.0); MCV 94.7 fL (80.0-97.0); Mean Platelet Volume 11.1 fL (9.5-12.2); Monocytes # (A) 1.25 X 10*3/uL (0.20-1.00); Monocytes % (A) 8.2 %; Neutrophils # (A) 12.03 X 10*3/uL (1.80-7.70); Neutrophils % (A) 78.4 %; Platelet Count 174 X 10*3/uL (140-440); RBC 5.13 X 10*6/uL (4.40-5.60); RDW 16.5 % (11.5-14.5); WBC 15.32 X 10*3/uL (4.50-10.00)
[2021-06-06 11:38] LABS: Glucose,Whole Blood 267 mg/dL (75-99)
--- NOTE | 2021-06-06 12:50 | P.PN ---
Subjective Progress Note Date: 06/06/21 his is a pleasant 75-year-old male past medical history significant for chronic persistent atrial fibrillation, sick sinus syndrome status post dual chamber permanent pacemaker 2012, hypertension, obesity, type 2 diabetes, pulmonary hypertension, left ventricular hypertrophy, venous insufficiency, lymphedema, former tobacco use 20+ years ago. He follows in the office with Dr. Witt. We have been asked to see in consultation for congestive heart failure. Patient presents emergency department with complaints of shortness of breath, 29lb weight gain over 1 month and worsening lower extremity edema. Echocardiogram on 05/25 revealed an EF of 6065 percent, RV is mildly enlarged, moderate tricuspid regurgitation, moderate pulmonary hypertension with RVSP of [address] chest 05/27- findings suspicious for acute pulmonary embolism within the left upper lobe and right lower lobe secondary to distal branches. Correlate for CHF left-sided consolidation moderate sized pleural effusion. Small amount of ascites. 06/03/21 Patient seen and examined at bedside, he is sitting in the bedside chair. He states his symptoms of shortness of breath have improved, his lower extremity edema has improved. But still does not feel at baseline. His oxygen requirements are maintained at 6L high flow nasal cannula same as yesterday. Voided3.1L urine output over the past 24 hours. His heparin drip has been stopped he's been switched Eliquis 10 mg twice a day. Nephrology evaluated the patient and wanted to transition to IV Lasix drip. 06/06/2021 Patient examined this morning. He is sitting up in the chair. He states his shortness of breath and lower extremity edema are improving. He is currently on 4L NC. He reports wearing 3L oxygen at home. He remains on IV lasix per nephrology. BUN 64. Creatinine 1.22. Fluid balance over the last 24 hours is - 8300cc. PHYSICAL EXAMINATION CONSTITUTIONAL: No acute distress. HEENT: Neck Supple. No JVD. CHEST EXAMINATION: Lungs diminished bilaterally to auscultation. No wheezing noted. No chest wall tenderness is noted on palpation or with deep breathing. HEART EXAMINATION: Regular rate and rhythm. S1, S2 heard. Systolic ejection murmur noted. ABDOMEN: Soft, nontender. Positive bowel sounds. EXTREMITIES: 2+ peripheral pulses, 1-2+ bilateral lower extremity edema noted. NEUROLOGIC EXAMINATION: Patient is awake, alert and oriented x3. ASSESSMENT Acute on chronic diastolic heart failure Acute pulmonary emboli , despite therapeutic INR on Coumadin, failed on coumadin and patient transition to Eliquis Pulmonary hypertension Obstructive sleep apnea Moderate left sided pleural effusion Acute hypoxic respiratory failure Chronic persistent atrial fibrillation [id number] score 4 on coumadin outpatient Sick sinus syndrome status post dual chamber permanent pacemaker 2012 Hypertension Morbid obesity BMI 48 Type 2 diabetes Bilateral lower extremity cellulitis, ID following, switched the patient to Keflex PLAN Continue lasix per nephrology Monitor kidney function Daily weights Accurate I&O Continue Eliquis Continue additional cardiac medications Further recommendations based on clinical course Patient to follow up with Dr. Witt Nurse Practitioner note has been reviewed, I agree with a documented findings and plan of care. Patient was seen and examined. Objective - Vital Signs Vital signs: Vital Signs Temp 96.4 F L 06/06/21 08:00 Pulse 90 06/06/21 11:55 Resp 18 06/06/21 11:55 BP 104/62 06/06/21 08:00 Pulse Ox 93 L 06/06/21 11:16 Intake & Output 06/05/21 06/06/21 06/06/21 18:59 06:59 18:59 Intake Total 200 Output Total 3200 5300 1300 Balance -3200 -5100 -1300 Weight 139.5 kg Intake: Oral 200 Output: Urine 3200 5300 1300 Other: Voiding Method Toilet Toilet Toilet # Bowel Movements 1 1 - Labs CBC & Chem 7: 06/06/21 07:03 06/06/21 07:03 Labs: Abnormal Lab Results - Last 24 Hours (Table) 06/05/21 06/05/21 06/05/21 Range/Units 08:16 16:53 21:03 WBC (4.50-10.00) X 10*3/uL RDW (11.5-14.5) % Immature Gran # (0.00-0.04) X 10*3/uL Neutrophils # (1.80-7.70) X 10*3/uL Monocytes # (0.20-1.00) X 10*3/uL Chloride 91 L (96-109) mmol/L Carbon Dioxide (22-30) mmol/L Anion Gap 15.90 H (4.00-12.00) mmol/L BUN 55.7 H (9.0-27.0) mg/dL Est GFR (CKD-EPI)AfAm 57.0 L (60.0-200.0) Est GFR (CKD-EPI)NonAf 49.1 L (60.0-200.0) BUN/Creatinine Ratio 39.79 H (12.00-20.00) Ratio Glucose 241 H (70-110) mg/dL POC Glucose (mg/dL) 302 H 256 H (75-99) mg/dL 06/06/21 06/06/21 06/06/21 Range/Units 07:03 07:03 07:27 WBC 15.32 H (4.50-10.00) X 10*3/uL RDW 16.5 H (11.5-14.5) % Immature Gran # 0.10 H (0.00-0.04) X 10*3/uL Neutrophils # 12.03 H (1.80-7.70) X 10*3/uL Monocytes # 1.25 H (0.20-1.00) X 10*3/uL Chloride 88 L (96-109) mmol/L Carbon Dioxide 39 H (22-30) mmol/L Anion Gap (4.00-12.00) mmol/L BUN 64 H (9.0-27.0) mg/dL Est GFR (CKD-EPI)AfAm (60.0-200.0) Est GFR (CKD-EPI)NonAf (60.0-200.0) BUN/Creatinine Ratio (12.00-20.00) Ratio Glucose 231 H (70-110) mg/dL POC Glucose (mg/dL) 195 H (75-99) mg/dL 06/06/21 Range/Units 11:36 WBC (4.50-10.00) X 10*3/uL RDW (11.5-14.5) % Immature Gran # (0.00-0.04) X 10*3/uL Neutrophils # (1.80-7.70) X 10*3/uL Monocytes # (0.20-1.00) X 10*3/uL Chloride (96-109) mmol/L Carbon Dioxide (22-30) mmol/L Anion Gap (4.00-12.00) mmol/L BUN (9.0-27.0) mg/dL Est GFR (CKD-EPI)AfAm (60.0-200.0) Est GFR (CKD-EPI)NonAf (60.0-200.0) BUN/Creatinine Ratio (12.00-20.00) Ratio Glucose (70-110) mg/dL POC Glucose (mg/dL) 267 H (75-99) mg/dL
--- NOTE | 2021-06-06 14:27 | PN ---
PROGRESS NOTE Patient is seen for followup for acute kidney injury and volume overload. Patient is currently being diuresed. His creatinine is stable at about 1.2 mg/dL. PHYSICAL EXAMINATION: On examination today, blood pressure 104/62, heart rate 70 per minute. He is afebrile. Examination of the heart S1, S2. Examination of the lungs, decreased breath sounds at the bases. Abdomen: Soft, nontender, obese. Exam of lower extremities shows chronic skin changes with decreasing edema. [employer] WORK[employer] exam is grossly intact. LAB: Show sodium of 137 from today, potassium 4.5, BUN 64, serum creatinine 1.2, hemoglobin 16.1 g/dL. ASSESSMENT: 1. Acute kidney injury, associated with cardiorenal syndrome. Renal function currently stable. UA is benign. 2. Volume overload, improved, status post Lasix drip currently maintained on IV push Lasix. 3. Acute on chronic diastolic congestive heart failure with moderate tricuspid regurgitation and pulmonary hypertension. 4. Atrial fibrillation, rate controlled, maintained on anticoagulation. 5. Pulmonary embolism maintained on anticoagulation. 6. Type 2 diabetes. 7. Hyperkalemia associated with hyperglycemia, now improved. PLAN: Can switch to Demadex tomorrow. The patient could be discharged today. He should take 40 mg of torsemide twice a day for a couple of days and then decrease to once a day. He should follow up as outpatient for monitoring of volume status and renal function. MMODL / IJN: [id number] /
[2021-06-06 14:36] VITALS: BP 115/70; RESP 20; TEMP 97.9
[2021-06-06 16:29] LABS: Glucose,Whole Blood 270 mg/dL (75-99)
[2021-06-06 16:38] VITALS: PULSE 80
[2021-06-06] MEDS ORDERED: INFLUENZA VACC HIGH-DOSE (65+) 240 MCG/0.7 ML SYRINGE IM ONE (16:56)
--- NOTE | 2021-06-06 18:59 | P.PN ---
Subjective Progress Note Date: 06/06/21 Principal diagnosis: Dyspnea This is a 75-year-old male that we saw in the emergency department, room 6. The patient came into the emergency room, with weight gain, lower extremity edema with cellulitis, falling at home, and shortness of breath. The patient does have a history of chronic hypoxemic respiratory failure and does use oxygen at 3 L/m, at home. He also has sleep apnea, and for that he uses CPAP at home. His primary care provider is Dr. Sampson. He used to see Dr. SRIRAM Chu as his corrugator helper. The patient has a history of atrial fibrillation, a questionable history of COPD even though he wasn't a smoker, diabetes mellitus, hyperlipidemia, and sleep apnea syndrome. He also suffers some arthritis, gout, cardiomyopathy, and has a previous history of methicillin-resistant staph aureus infection, and also infection with vancomycin-resistant enterococci. He is status post pacemaker insertion. Anyway, the patient states that at home, he's been feeling very weak and is been falling. He's gained quite a bit of weight has significant lower extremity edema. White count 9.4, hemoglobin 15.1, hematocrit 47.2, and platelet count 159,000. PTT 31.1, INR 3.2, and PTT 31.6. Sodium 137, potassium 4, chlorides 101, CO2 24, anion gap 12, BUN 22, creatinine 1.21. Lactic acid was 2.9 and repeat was 3.5. Troponin was normal. N-terminal proBNP was 608. Testing for medina virus was negative. Chest x-ray showed evidence of cardiomegaly, and a posterior pleural effusion. The patient is seen today 05/26/2021 in follow-up on the observation unit. He is currently sitting up in bed. Awake and alert in no acute distress. He is currently on 15 L high flow nasal cannula maintaining O2 saturations in the 90s. He did wear BiPAP 12/6 and 50% FiO2 overnight. Chest x-ray reveals cardiomegaly. A right basilar infiltrate and small left pleural effusion. Venous Dopplers of the lower extremities were negative for DVT. He is currently on a cefazolin for cellulitis of the lower extremities. White count 14.1. Hemoglobin 14.9. Platelets 204. INR 3.3. Sodium 139. Potassium 4.8. Creatinine 1.14. He remains on DuoNeb inhalations, Pulmicort inhalations, Lasix 40 mg IV every 12 hours. He is on dofetilide. Anticoagulated with warfarin. The patient is seen today 05/27/2021 in follow-up on the regular medical floor. He is currently resting in bed. Awake and alert in no acute distress. He has required 15 L high flow nasal cannula to maintain O2 saturations in the 90s. He has left upper extremity edema status post Doppler results of which are pending. He has some ongoing cough and congestion and small amount of productive sputum. Blood cultures reveal no growth to date. White count 13.1. Hemoglobin 15.1. INR 3.1. Sodium 139. Potassium 5.1. Creatinine 1.15. AST 44. ALT 18. He is continued on DuoNeb inhalations, Pulmicort inhalations. He is on IV diuretics. Antibiotics in the form of cefazolin. Echocardiogram revealed preserved left ventricular systolic function with ejection fraction 66 5%. There is moderate pulmonary hypertension. The patient is seen today 05/28/2021 in follow-up on the regular medical floor. He is currently resting fairly comfortably in bed. Awake and alert in no acute distress. Still requiring 15 L high flow nasal cannula to maintain O2 saturations in the 90s. He still has a loose congested cough. His appetite is good. No DVT in the left upper extremity however there was pulmonary emboli found in the left upper lobe and right lower lobe secondary to distal branches. Evidence of fluid volume overload and left-sided consolidation. Count 10.3. Hemoglobin 14.7. Platelets 166. INR 2.5. Sodium 135. Potassium 4.2. Creatinine 0.98. Appear remains on warfarin, bronchodilators, cefazolin. He remains on IV diuretics. Remains in a negative balance. On 05/29/2021 patient seen in follow-up on medical surgical floor. He is resting comfortably in bed, appears to be distress, he is currently on 15 L of oxygen his pulse ox is 91%, he remains on diuretics with Lasix 40 mg every 8 hours, he is indicative 2.39 fluid balance over the last 24 hours, he is on antibiotics, nebulized bronchodilators, and he was started on Coumadin anticoagulation, his INR today is 2.3, his white count is 10.03, hemoglobin is 14.3, electrolytes are within normal limits, his BUN is 27 creatinine is 1.1. Blood cultures have shown no growth thus far, no fever or chills. Required BiPAP at bedtime with FiO2 of 50%. On 06/06/2021 patient seen in follow-up on medical surgical floor, she is rest ing comfortably in bed, he is currently on 3 L of oxygen pulse ox of 90%. Breathing comfortably, denies any chest discomfort. His been afebrile, vital signs have been stable. He has been diuresed, he is currently on Zaroxolyn 5 mg daily, and Demadex 4 mg daily, nephrology service is following. Overall he had significant diuresis, and his weight is down by 14 kg since admission. Lower extremity edema has significantly improved. He is in -8300 mL net fluid balance over the last 24 hours. His labs reviewed his white blood cell, is improving and is down to 15.3, hemoglobin is 16.1, sodium is 137, potassium is 4.5, chloride is 88, CO2 is 39, B UN is 64, creatinine is 1.2. He was cleared for discharge by both nephrology and cardiology. His breathing very comfortably, he was placed back on Eliquis for acute pulmonary emboli. Objective - Vital Signs Vital signs: Vital Signs Temp 97.9 F 06/06/21 14:00 Pulse 80 06/06/21 16:38 Resp 20 06/06/21 14:00 BP 115/70 06/06/21 14:00 Pulse Ox 90 L 06/06/21 14:00 Intake & Output 06/05/21 06/06/21 06/06/21 18:59 06:59 18:59 Intake Total 200 Output Total 3200 5300 1700 Balance -3200 -5100 -1700 Weight 139.5 kg Intake: Oral 200 Output: Urine 3200 5300 1700 Other: Voiding Method Toilet Toilet Toilet # Bowel Movements 1 1 - Exam GENERAL EXAM: Alert, hence, 75-year-old morbidly obese white male, on 3 L of oxygen with a pulse ox of 90%, comfortable in no apparent distress. HEAD: Normocephalic/atraumatic. EYES: Normal reaction of pupils, equal size. Conjunctiva pink, sclera white. NOSE: Clear with pink turbinates. THROAT: No erythema or exudates. NECK: No masses, no JVD, no thyroid enlargement, no adenopathy. CHEST: No chest wall deformity. Symmetrical expansion. LUNGS: Equal air entry with diminished breath sounds, with some scattered wheezes and rhonchi CVS: Regular rate and rhythm, normal S1 and S2, no gallops, no murmurs, no rubs ABDOMEN: Soft, nontender. No hepatosplenomegaly, normal bowel sounds, no guarding or rigidity. EXTREMITIES: No clubbing, minimal pretibial edema, no cyanosis, 2+ pulses and upper and lower extremities. MUSCULOSKELETAL: Muscle strength and tone normal. SPINE: No scoliosis or deformity SKIN: No rashes CENTRAL NERVOUS SYSTEM: Alert and oriented -3. No focal deficits, tone is normal in all 4 extremities. PSYCHIATRIC: Alert and oriented -3. Appropriate affect. Intact judgment and insight. - Labs CBC & Chem 7: 06/06/21 07:03 06/06/21 07:03 Labs: Abnormal Lab Results - Last 24 Hours (Table) 06/05/21 06/06/21 06/06/21 Range/Units 21:03 07:03 07:03 WBC 15.32 H (4.50-10.00) X 10*3/uL RDW 16.5 H (11.5-14.5) % Immature Gran # 0.10 H (0.00-0.04) X 10*3/uL Neutrophils # 12.03 H (1.80-7.70) X 10*3/uL Monocytes # 1.25 H (0.20-1.00) X 10*3/uL Chloride 88 L (98-107) mmol/L Carbon Dioxide 39 H (22-30) mmol/L BUN 64 H (9-20) mg/dL Glucose 231 H (74-99) mg/dL POC Glucose (mg/dL) 256 H (75-99) mg/dL 06/06/21 06/06/21 06/06/21 Range/Units 07:27 11:36 16:28 WBC (4.50-10.00) X 10*3/uL RDW (11.5-14.5) % Immature Gran # (0.00-0.04) X 10*3/uL Neutrophils # (1.80-7.70) X 10*3/uL Monocytes # (0.20-1.00) X 10*3/uL Chloride (98-107) mmol/L Carbon Dioxide (22-30) mmol/L BUN (9-20) mg/dL Glucose (74-99) mg/dL POC Glucose (mg/dL) 195 H 267 H 270 H (75-99) mg/dL Assessment and Plan Plan: Assessment: #1. Acute hypoxic respiratory failure, multifactorial, related to acute pulmonary emboli, acute cor pulmonale with right-sided heart failure, pulmonary hypertension, obstructive sleep apnea, and possible pickwickian syndrome. Improving hypoxia, patient is currently down to 3 L of oxygen with diuresis, the patient's weight is down to 147 kg, patient is currently on Demadex and Zaroxolyn #2. Acute pulmonary emboli, despite therapeutic INR on Coumadin, possible failure of anticoagulation. She has been started on Eliquis #3. Morbid obesity #4. History of obstructive sleep apnea on home CPAP #5. History of chronic atrial fibrillation on Coumadin #6. Status post pacemaker insertion #7. History of diabetes no this type II #8. History of hyperlipidemia #9. History of cardiomyopathy #10. History of arthritis #11. History of gout #12. Prior history of MRSA and VRE infections #13. Lifelong nonsmoker Plan: Patient has been diuresed Breathing comfortably Down to 3 L of oxygen Maintaining negative fluid balance Continues on Demadex and Zaroxolyn He is cleared for discharge by cardiology and nephrology He is cleared for discharge from pulmonary perspective as well Outpatient follow-up with Dr. Kirby in the office in 7-10 days I performed a history & physical examination of the patient and discussed their management with my nurse practitioner, Georgette Jacobson. I reviewed the nurse practitioner's note and agree with the documented findings and plan of care. Lung sounds are positive for diminished breath sounds throughout the lung pepe. The findings and the impression was discussed with the patient. I a ttest to the documentation by the nurse practitioner. Time with Patient: Less than 30
--- NOTE | 2021-06-06 19:02 | P.DS ---
Providers Date of admission: 05/24/21 22:23 Expected date of discharge: 06/06/21 Attending physician: Catrina Lew Consults: 05/25/21 04:37 Consult Physician Stat Consulting Provider: Niles Kirby Consult Reason/Comments: Respiratory Do you want consulting provider notified?: Yes, Notify in am 05/25/21 09:09 Consult Physician Routine Consulting Provider: Mandy Ray Consult Reason/Comments: chf Do you want consulting provider notified?: Yes 05/25/21 12:20 Consult Physician Routine Consulting Provider: Kam Garibay Consult Reason/Comments: Cellulitis Do you want consulting provider notified?: Yes 06/01/21 11:55 Consult Physician Routine Consulting Provider: Corin Cortez Consult Reason/Comments: increased fluid retention Do you want consulting provider notified?: Yes Primary care physician: Jocelyn Sampson Hospital Course: Diagnoses on discharge: 1. Dyspnea secondary to CHF and COPD exacerbation, and pulmonary embolism, 2. History of obstructive sleep apnea 3. Chronic respiratory failure maintained on home O2 4. Bilateral lower extremity cellulitis and edema. 5. Elevated lactic acid. Patient started on antibiotic for lower infection for cellulitis. Infectious services following 6. Status post pacemaker insertion 7. Chronic atrial fibrillation maintained on Coumadin 8. History of diabetes mellitus type 2 thank scale insulin coverage added hemoglobin A1c 9. History of cardiomyopathy, currently left ventricular function is normal with an ejection fraction of 60-65% 10. History of gout 11. Hypothyroidism 12. Increased swelling to left upper extremity will order venous Doppler to rule out DVT. Venous Doppler negative 13. Acute bilateral pulmonary emboli. Patient started on eliquis due to failed with Coumadin Hospital course: Tristian Galloway is a 75-year-old male patient of Dr. Sampson who presented with ongoing shortness of breath and weight gain. Patient reports he's had increasing shortness of breath over the past month with episodes of falling and significant weight gain. Patient is maintained on home O2 for chronic hypoxic respiratory failure but states that the shortness of breath has been increasing. Patient does have a past medical history of A. fib in which she is maintained on Coumadin, COPD, diabetes mellitus, hyperlipidemia and pacemaker. Chest x-ray completed in ER showing cardiomegaly posterior pleural effusion. BNP 608. Troponin was normal lactic acid elevated at 2.9 COVID-19 was negative. Patient has been started on updraft breathing treatments IV Lasix and sublingual insulin for cellulitis. Pulmonary, cardiology and infectious disease services have been consulted. This time patient is resting currently in bed on BiPAP machine. Patient does still complain of some shortness breath. Patient denies any chest pain. Patient denies nausea vomiting or diarrhea. Patient denies any urinary burning or frequency On 05/26/2021 patient was seen and examined on his oriented 3 in no apparent distress. Patient maintained on IV Lasix and IV antibiotics for cellulitis. Pulmonary cardiology and infectious disease service following this time patient reports improvement. Patient denies chest pain or shortness breath. Patient denies nausea vomiting or diarrhea. Patient denies any urinary burning or frequ ency On 05/27/2021 patient alert and oriented 3. Patient reports significant edema and pain to left upper extremity will order venous Doppler to rule out DVT likely secondary from infiltration of IV. Patient remains on IV Lasix and capsule for cellulitis. Patient currently on 15 L high flow nasal cannula. Pulmonary cardiology and infectious disease services following. On 05/28/2021 patient was seen and examined on the medical floor he is alert and oriented 3 in no apparent distress, he is still complaining of shortness of breath and is maintained on oxygen 10 L via nasal cannula, he is complaining of occasional cough without sputum production, he is complaining of constipation, otherwise he denies any complaints, there is no fever or chills no headache or dizziness no chest pain no nausea or vomiting no abdominal pain no diarrhea no blood in the stool no burning with urination no frequency or urgency no hematuria Patient underwent CT angiogram of the chest that was suspicious for left upper lobe pulmonary embolism, there was evidence also of left sided consolidation and moderate sized pleural effusion, and evidence of ascites. Left upper extremity Doppler was negative for DVT Patient is maintained on Coumadin his INR is therapeutic at 2.5 Echocardiogram revealed normal left ventricular systolic function with an ejection fraction of 60-65% On 05/29/2021 patient is alert and oriented 3. Patient currently on high flow 15 L remains on IV diuretics. Patient remains on IV antibiotics for cellulitis. INR therapeutic at 2.3. Pulmonary, cardiology and infectious disease services are following. Repeat labs will be ordered for a.m. An 05/30/2021 patient alert and oriented 3. Patient has been switched over to IV heparin due to development of PE while on Coumadin. Patient will need to be on different agent for anticoagulation. Patient remains on high flow nasal cannula 15 L and IV diuretics. She denies nausea vomiting or diarrhea. Patient denies any urinary burning or frequency. On 05/31/2021 patient was seen and examined on the medical floor he is alert and oriented 3 in no apparent distress, he is maintained on oxygen 12 L via nasal cannula, there is no fever or chills no headache or dizziness no chest pain no nausea or vomiting no abdominal pain no diarrhea no blood in stool no burning with urination no frequency or urgency no hematuria. He is currently maintained on IV heparin and is off Coumadin, awaiting further recommendation from pulmonary in regard to thoracentesis, continue management with IV Lasix currently he is on further 40 mg twice a day. On 06/01/2021 patient alert and oriented 3. Possible plans for thoracentesis per pulmonary. Patient remains on heparin drip until decision in regards to thoracentesis is made. Then patient will be transitioned to oral eliquis for anticoagulation. Oxygen has been weaned down to 8 liters. Patient's weight increased from 158.2 kg to 160.3. Patient has been on IV Lasix 40mg every 8 hours with minimum improvement. We'll consult nephrology services. On 06/02/2021 patient was seen and examined on the medical floor, he is alert and oriented 3 in no apparent distress , he is worried about his increasing weight, otherwise he stated that his shortness of breath has improved, he is currently maintained on oxygen 6 L via nasal cannula . there is no fever or chills no headache or dizziness no chest pain no cough no nausea or vomiting no abdominal pain or diarrhea and no urinary symptoms 06/03/2021 patient's alert and oriented 3. Patient's weight slightly down to 160.7 kg. Per nursing staff nephrology is planning to order Lasix drip. Patient remains on eliquis for anticoagulation for pulmonary embolism and IV antibiotics for cellulitis. Pulmonary cardiology and nephrology services are following. Oxygen down to 6 L nasal cannula. This time patient does deny chest pain. Still complaining of some shortness breath with activity. Bilateral legs currently wrapped and elevated. Patient denies nausea vomiting or diarrhea. On 06/04/2021 patient was seen and examined on the medical floor he is alert and oriented 3 in no apparent distress there is no fever or chills no headache or dizziness no chest pain his still has shortness of breath with activity no cough no nausea or vomiting no abdominal pain no diarrhea no blood in the stools no burning with urination no frequency or urgency and no hematuria. Patient is maintained on IV Lasix and responding to diuretics he is also maintained on a prednisone taper, today his white blood count is 16.5 hemoglobin 15.9 platelet count 166 sodium 134 potassium 4.3 chloride 98 BUN 63 creatinine 1.2 bilirubin is elevated at 2.3 AST 17 a LT 71 On 06/05/2021 patient alert and oriented 3. Patient currently on 5 L nasal cannula. Weight trending down. Edema significantly improved. Patient reports improvement with shortness of breath. Per nephrology services plans to stop Lasix drip and start patient on 40 mg IV twice daily. Continue to wean oxygen. Patient does wear 4 L nasal cannula at home. Will attempt to get patient back to baseline. Patient denies chest pain. Patient denies nausea vomiting or diarrhea. Patient denies any urinary burning or frequency On 06/06/2021 patient was seen and examined on the medical floor he is alert and oriented 3 in no apparent distress his oxygen requirement at this time is 4 L per nasal cannula which is the same as prior to admission, he was evaluated by nephrology, cardiology, and pulmonary and was cleared for discharge. Per nephrology patient should take Demadex 40 mg twice a day for 2 days and then down to once daily, this was explained in detail stool patient and I gave him a prescription for the same., Per nephrology also patient should continue on Zaroxolyn 5 mg by mouth daily, patient was also provided with a prescription for the same. During this admission patient was switched from Coumadin to Eliquis, he was given a prescription at the time of discharge. Patient Condition at Discharge: Stable Plan - Discharge Summary Discharge Rx Participant: No New Discharge Prescriptions: New Pioglitazone [Actos] 30 mg PO DAILY 30 Days #30 tab Docusate [Colace] 100 mg PO BID cap Ipratropium-Albuterol Nebulize [Duoneb 0.5 mg-3 mg/3 ml Soln] 3 ml INHALATION RT-QID ml Nystatin 100,000 Unit/gm Powd [Mycostatin Powder] 1 applic TOPICAL BID gm Apixaban [Eliquis Starter Pack (for VTE)] 5 - 10 mg PO DIRECTED 30 Days #1 each metOLazone [Zaroxolyn] 5 mg PO DAILY tab Continue Dofetilide [Tikosyn] 500 mcg PO BID Budesonide [Pulmicort] 0.5 mg INHALATION RT-BID allopurinoL [Zyloprim] 300 mg PO DAILY Acetaminophen Tab [Tylenol] 325 mg PO QID PRN MDD 6 TABLETS PRN Reason: Fever And/ Or Pain Ergocalciferol [Vitamin D2 (DRISDOL)] 50,000 unit PO HODGES Multivitamins, Thera [Multivitamin (formulary)] 1 tab PO DAILY Torsemide [Demadex] 40 mg PO DAILY Albuterol Sulfate [Proair Hfa] 2 puff INHALATION RT-QID PRN PRN Reason: Shortness Of Breath Lovastatin [Altoprev] 20 mg PO DAILY Metoprolol Tartrate [Lopressor] 25 mg PO BID Magnesium 500 mg PO DAILY Levothyroxine Sodium [Synthroid] 50 mcg PO DAILY Discontinued glipiZIDE [Glucotrol] 10 mg PO AC-BID Spironolactone [Aldactone] 25 mg PO DAILY Warfarin Sodium [Coumadin] 5 mg PO DAILY 30 Days #30 tablet metFORMIN HCL [Glucophage] 1,000 mg PO BID Discharge Medication List Budesonide [Pulmicort] 0.5 mg INHALATION RT-BID 11/20/13 [History] Dofetilide [Tikosyn] 500 mcg PO BID 11/20/13 [History] allopurinoL [Zyloprim] 300 mg PO DAILY 11/21/14 [History] Acetaminophen Tab [Tylenol] 325 mg PO QID PRN MDD 6 TABLETS 07/12/16 [History] Ergocalciferol [Vitamin D2 (DRISDOL)] 50,000 unit PO HODGES 07/12/16 [History] Multivitamins, Thera [Multivitamin (formulary)] 1 tab PO DAILY 10/03/17 [History] Torsemide [Demadex] 40 mg PO DAILY 10/03/17 [History] Albuterol Sulfate [Proair Hfa] 2 puff INHALATION RT-QID PRN 06/23/18 [History] Levothyroxine Sodium [Synthroid] 50 mcg PO DAILY 05/24/21 [History] Lovastatin [Altoprev] 20 mg PO DAILY 05/24/21 [History] Magnesium 500 mg PO DAILY 05/24/21 [History] Metoprolol Tartrate [Lopressor] 25 mg PO BID 05/24/21 [History] Apixaban [Eliquis Starter Pack (for VTE)] 5 - 10 mg PO DIRECTED 30 Days #1 each 05/30/21 [Rx] Docusate [Colace] 100 mg PO BID cap 06/06/21 [Rx] Ipratropium-Albuterol Nebulize [Duoneb 0.5 mg-3 mg/3 ml Soln] 3 ml INHALATION RT-QID ml 06/06/21 [Rx] Nystatin 100,000 Unit/gm Powd [Mycostatin Powder] 1 applic TOPICAL BID gm 06/06/21 [Rx] Pioglitazone [Actos] 30 mg PO DAILY 30 Days #30 tab 06/06/21 [Rx] metOLazone [Zaroxolyn] 5 mg PO DAILY tab 06/06/21 [Rx] Follow up Appointment(s)/Referral(s): Rusty Witt MD [STAFF PHYSICIAN] - 2 Weeks (OFFICE CLOSED AT THIS TIME PLEASE CALL TO MAKE APPOINMENT AFTER D/C) Jocelyn Sampson MD [Primary Care Provider] - 1-2 days (OFFICE CLOSED AT THIS TIME PLEASE CALL TO MAKE APPOINMENT AFTER D/C) [facility], [NON-STAFF] - 1-2 Days Patient Instructions/Handouts: Heart Failure (DC) Activity/Diet/Wound Care/Special Instructions: Free month of Eliquis at [facility]. Rx will need to be faxed to the [facility] ([phone]) and [facility] ([phone]) at discharge. Discharge Disposition: HOME SELF-CARE
== END 2021-06-06 18:23 | disposition home or self-care (01) | DRG 291 ==
LOC: EC 20:21 → 4SSUR 22:23 → 1SOBS 05-25 10:37 → 4SSUR 05-26 19:33
PROVIDERS: ADMIT Internal Medicine; ATTEND Internal Medicine
DX: I13.0 Hypertensive heart and chronic kidney disease with heart failure and stage 1 through stage 4 chronic kidney disease, or unspecified chronic kidney disease (principal); J96.21 Acute and chronic respiratory failure with hypoxia; I50.33 Acute on chronic diastolic (congestive) heart failure; I26.09 Other pulmonary embolism with acute cor pulmonale; I48.19 Other persistent atrial fibrillation; E66.2 Morbid (severe) obesity with alveolar hypoventilation; L03.115 Cellulitis of right lower limb; L03.116 Cellulitis of left lower limb; Z16.24 Resistance to multiple antibiotics; Z16.21 Resistance to vancomycin; J44.1 Chronic obstructive pulmonary disease with (acute) exacerbation; N17.9 Acute kidney failure, unspecified; Z68.42 Body mass index [BMI] 45.0-49.9, adult; E03.9 Hypothyroidism, unspecified; E11.22 Type 2 diabetes mellitus with diabetic chronic kidney disease; E11.65 Type 2 diabetes mellitus with hyperglycemia; E87.5 Hyperkalemia; E78.5 Hyperlipidemia, unspecified; F32.9 Major depressive disorder, single episode, unspecified; Z20.822 Contact with and (suspected) exposure to COVID-19; I27.23 Pulmonary hypertension due to lung diseases and hypoxia; I50.82 Biventricular heart failure; I49.5 Sick sinus syndrome; I45.10 Unspecified right bundle-branch block; I42.9 Cardiomyopathy, unspecified; M19.90 Unspecified osteoarthritis, unspecified site; M10.9 Gout, unspecified; I07.1 Rheumatic tricuspid insufficiency; R79.89 Other specified abnormal findings of blood chemistry; N18.9 Chronic kidney disease, unspecified; Z79.01 Long term (current) use of anticoagulants; Z79.51 Long term (current) use of inhaled steroids; Z79.52 Long term (current) use of systemic steroids; Z79.84 Long term (current) use of oral hypoglycemic drugs; Z79.890 Hormone replacement therapy; Z79.899 Other long term (current) drug therapy; Z86.14 Personal history of Methicillin resistant Staphylococcus aureus infection; Z87.891 Personal history of nicotine dependence; Z95.0 Presence of cardiac pacemaker; Z96.1 Presence of intraocular lens; Z98.41 Cataract extraction status, right eye; Z98.42 Cataract extraction status, left eye; I89.0 Lymphedema, not elsewhere classified; I87.2 Venous insufficiency (chronic) (peripheral)
CPT/HCPCS: 36415; 71045; 71046; 71275; 76604; 80048; 80053; 81003; 82272; 83036; 83605; 83735; 83880; 84145; 84484; 85025; 85610; 85730; 87040; 87635; 90662; 93005; 93306; 93970; 94640; 94644; 94660; 94667; 94760; 96374; 99285

== ENCOUNTER → 2021-08-15 | Day surgery (SDC) | payer MEDICARE ==
[2021-08-09 15:21] VITALS: BMI 39.4
[~2021-08-15] MED LIST: IOPAMIDOL-370 50ML BTL INJ ONE; SODIUM CHLORIDE 0.9% 1,000 ML IV SCH
[2021-08-15 09:15] LABS: Glucose,Whole Blood 136 mg/dL (75-99)
[2021-08-15 09:21] VITALS: BP 112/60; PULSE 79; RESP 18; TEMP 98.1
--- NOTE | 2021-08-15 19:37 | P.EPPROC ---
- EP Procedure Note Electrophysiology Procedure Note: Diagnosis Persistent atrial fibrillation, symptomatic History of congestive heart failure, mildly reduced LV systolic function during A. fib History of pulmonary embolism in May of last year with RVR enlargement Dual-chamber pacemaker for sick sinus syndrome 100% RV pacing Obesity Chronic kidney disease with a creatinine clearance of 38 Type 2 diabetes hemoglobin A1c of 7.1 Labs reviewed Hemoglobin 11, platelet count 243,000 Sodium 131, potassium 3.5, BUN 86 and creatinine 1.8 creatinine clearance 38 Hemoglobin A1c 7.1 Triglycerides 94, total cholesterol 114, LDL 42, HDL 53 TSH 2.8 2-D echo and Doppler study performed today in sinus rhythm shows Dilated right ventricle with elevated right-sided pressures Reduced LV systolic function about 45% with evidence of elevated right-sided pressures septal flattening/bounce Procedure #1. 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 Patient seems to be in normal rhythm 2-D echo and Doppler study to assess left atrial size RV size and LV size and function Patient's dofetilide has been discontinued Considerations include ?? Consideration for low-dose amiodarone in the future for management of atrial fibrillation Upgrade to a biventricular device based on LV function with an LV lead in October after 5-6 months of anticoagulation for management of pulmonary embolism
== END ==
LOC: CATHEP 08:27
PROVIDERS: ATTEND Internal Medicine Clinical Cardiac Electrophysiology
DX: I48.19 Other persistent atrial fibrillation (principal); I25.10 Atherosclerotic heart disease of native coronary artery without angina pectoris; I13.0 Hypertensive heart and chronic kidney disease with heart failure and stage 1 through stage 4 chronic kidney disease, or unspecified chronic kidney disease; N18.9 Chronic kidney disease, unspecified; I50.33 Acute on chronic diastolic (congestive) heart failure; I49.5 Sick sinus syndrome; E78.5 Hyperlipidemia, unspecified; Z20.822 Contact with and (suspected) exposure to COVID-19; E66.9 Obesity, unspecified; Z68.39 Body mass index [BMI] 39.0-39.9, adult; E11.9 Type 2 diabetes mellitus without complications; I45.2 Bifascicular block; Z95.0 Presence of cardiac pacemaker; Z86.711 Personal history of pulmonary embolism; Z82.49 Family history of ischemic heart disease and other diseases of the circulatory system; Z72.0 Tobacco use; Z79.01 Long term (current) use of anticoagulants; Z79.84 Long term (current) use of oral hypoglycemic drugs; Z79.890 Hormone replacement therapy; Z79.51 Long term (current) use of inhaled steroids; Z79.899 Other long term (current) drug therapy
CPT/HCPCS: 36005; 75820; 87635; C8929; Q9950; Q9967; 93306

== ENCOUNTER 2021-09-28 18:11 | Inpatient (IN) | payer MEDICARE ==
[2021-09-28] MEDS ORDERED: FUROSEMIDE 10 MG/ML 4 ML VIAL IV STA (18:21)
[2021-09-28 19:37] LABS: Anisocytosis Slight; Basophils % (A) 0 %; Eosinophils # (A) 0.1 k/uL (0-0.7); Eosinophils % (A) 1 %; HCT 24.6 % (39.0-53.0); HGB 7.2 gm/dL (13.0-17.5); Hypochromasia Marked; Lymphocytes # (A) 1.9 k/uL (1.0-4.8); Lymphocytes % (A) 18 %; MCH 27.7 pg (25.0-35.0); MCHC 29.3 g/dL (31.0-37.0); MCV 94.5 fL (80.0-100.0); Mean Platelet Volume 8.5; Monocytes # (A) 0.5 k/uL (0-1.0); Monocytes % (A) 5 %; Neutrophils # (A) 7.3 k/uL (1.3-7.7); Neutrophils % (A) 72 %; Platelet Count 290 k/uL (150-450); Poikilocytosis Marked; WBC 10.2 k/uL (3.8-10.6)
--- NOTE | 2021-09-28 19:37 | ED ---
General Adult HPI - General Chief complaint: Weakness Stated complaint: Weakness Time Seen by Provider: 09/28/21 18:25 Source: patient, EMS, RN notes reviewed, old records reviewed Mode of arrival: EMS Limitations: no limitations - History of Present Illness Initial comments: This is a 76-year-old male with past medical history significant for congestive heart failure, diabetes, COPD. Patient comes in because he states for 3 weeks has had shortness of breath and quite a cough. Patient denies any chest pain or palpitations. Patient denies any sputum production. Patient denies any lightheadedness or dizziness. Patient denies any abdominal pain patient denies nausea vomiting diarrhea. Patient does state he has had a weight gain over the last few weeks. Patient states she also noticed some increased swelling in his legs. - Related Data Home Medications Medication Instructions Recorded Confirmed Budesonide [Pulmicort] 0.5 mg INHALATION RT-BID PRN 11/20/13 09/28/21 allopurinoL [Zyloprim] 300 mg PO DAILY 11/21/14 09/28/21 Acetaminophen Tab [Tylenol] 325 mg PO QID PRN 07/12/16 09/28/21 Ergocalciferol [Vitamin D2 50,000 unit PO HODGES 07/12/16 09/28/21 (DRISDOL)] Multivitamins, Thera [Multivitamin 1 tab PO DAILY 10/03/17 09/28/21 (formulary)] Torsemide [Demadex] 40 mg PO DAILY 10/03/17 09/28/21 Albuterol Sulfate [Proair Hfa] 2 puff INHALATION RT-QID PRN 06/23/18 09/28/21 Levothyroxine Sodium [Synthroid] 50 mcg PO DAILY 05/24/21 09/28/21 Lovastatin [Altoprev] 20 mg PO DAILY 05/24/21 09/28/21 Metoprolol Tartrate [Lopressor] 25 mg PO BID 05/24/21 09/28/21 Ipratropium-Albuterol Nebulize 3 ml INHALATION RT-Q6H PRN 08/09/21 09/28/21 [Duoneb 0.5 mg-3 mg/3 ml Soln] glipiZIDE [Glucotrol] 10 mg PO BID 08/09/21 09/28/21 metFORMIN HCL [Glucophage] 1,000 mg PO BID 08/09/21 09/28/21 Potassium Chloride [Klor-Con 20] 20 meq PO DAILY 08/15/21 09/28/21 Apixaban [Eliquis] 5 mg PO BID 09/28/21 09/28/21 Aspirin EC [Ecotrin Low Dose] 81 mg PO DAILY 09/28/21 09/28/21 Magnesium Chloride [Slow-Mag] 64 mg PO DAILY 09/28/21 09/28/21 Previous Rx's Medication Instructions Recorded Docusate [Colace] 100 mg PO BID cap 06/06/21 metOLazone [Zaroxolyn] 5 mg PO DAILY tab 06/06/21 Allergies Allergy/AdvReac Type Severity Reaction Status Date / Time No Known Allergies Allergy Verified 09/28/21 19:45 Review of Systems ROS Statement: Those systems with pertinent positive or pertinent negative responses have been documented in the HPI. ROS Other: All systems not noted in ROS Statement are negative. Past Medical History Past Medical History: Atrial Fibrillation, COPD, Diabetes Mellitus, Hyp erlipidemia, Sleep Apnea/CPAP/BIPAP Additional Past Medical History / Comment(s): cardiomyopathy. arthritis. 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 VIANEY, bilateral cataract removal with lens implants Past Anesthesia/Blood Transfusion Reactions: No Reported Reaction Type of Cardiac Device: Permanent Pacemaker Device Placement Date:: 10/17/2012 Past Psychological History: Depression Smoking Status: Never smoker Past Alcohol Use History: Rare Past Drug Use History: None Reported - Past Family History Father History Unknown: Yes Additional Family Medical History / Comment(s): "hardening of the arteries" Mother History Unknown: Yes Additional Family Medical History / Comment(s): "water in the lungs" at 95 General Exam - General Exam Comments Initial Comments: GENERAL: Patient is well-developed and well-nourished. Patient is nontoxic and well- hydrated and is in mild distress. ENT: Neck is soft and supple. No significant lymphadenopathy is noted. Oropharynx is clear. Moist mucous membranes. Neck has full range of motion without e liciting any pain. EYES: The sclera were anicteric and conjunctiva were pink and moist. Extraocular movements were intact and pupils were equal round and reactive to light. Eyelids were unremarkable. PULMONARY: Unlabored respirations. Good breath sounds bilaterally. No audible rales rhonchi or wheezing was noted. CARDIOVASCULAR: There is a regular rate and rhythm without any murmurs gallops or rubs. ABDOMEN: Soft and nontender with normal bowel sounds. SKIN: Skin is clear with no lesions or rashes and otherwise unremarkable. NEUROLOGIC: Patient is alert and oriented x3. Cranial nerves II through XII are grossly intact. Motor and sensory are also intact. Normal speech, volume and content. Symmetrical smile. MUSCULOSKELETAL: Normal extremities with adequate strength and full range of motion. 2+ edema LYMPHATICS: No significant lymphadenopathy is noted PSYCHIATRIC: Normal psychiatric evaluation. Limitations: no limitations Course Vital Signs 09/28/21 18:22 Pulse Rate 71 Respiratory 20 Rate Blood Pressure 82/58 O2 Sat by Pulse 98 Oximetry Medical Decision Making - Medical Decision Making EKG shows a paced rhythm at 72 bpm FL interval is 108 QRSs 17 QT interval is 117 QTC is 141. Chest x-ray shows no acute abnormality. I spoke with Dr. Cortez I gave the patient 1 amp of sodium bicarbonate gave the patient minute adrenal gave the patient Lasix 60 mg IV. I also order the patient and I COUNSELED NEPHROLOGY AND DR. MORENO. I WROTE ADMITTING ORDERS. Patient has no signs of infection. Patient has an elevated lactic acid secondary to hypoxia secondary to congestive heart and anemia - Lab Data Result diagrams: 09/28/21 19:32 09/28/21 19:32 Lab Results 09/28/21 09/28/21 09/28/21 Range/Units 19:32 19:32 19:32 WBC 10.2 (3.8-10.6) k/uL RBC 2.60 L (4.30-5.90) m/uL Hgb 7.2 L (13.0-17.5) gm/dL Hct 24.6 L (39.0-53.0) % MCV 94.5 (80.0-100.0) fL MCH 27.7 (25.0-35.0) pg MCHC 29.3 L (31.0-37.0) g/dL RDW 18.0 H (11.5-15.5) % Plt Count 290 (150-450) k/uL MPV 8.5 Neutrophils % 72 % Lymphocytes % 18 % Monocytes % 5 % Eosinophils % 1 % Basophils % 0 % Neutrophils # 7.3 (1.3-7.7) k/uL Lymphocytes # 1.9 (1.0-4.8) k/uL Monocytes # 0.5 (0-1.0) k/uL Eosinophils # 0.1 (0-0.7) k/uL Basophils # 0.0 (0-0.2) k/uL Hypochromasia Marked Poikilocytosis Marked Anisocytosis Slight PT 12.5 H (9.0-12.0) sec INR 1.2 H (<1.2) APTT 25.5 (22.0-30.0) sec Sodium 126 L (137-145) mmol/L Potassium 4.5 (3.5-5.1) mmol/L Chloride 90 L (98-107) mmol/L Carbon Dioxide 17 L (22-30) mmol/L Anion Gap 19 mmol/L BUN 150 H* (9-20) mg/dL Creatinine 5.02 H (0.66-1.25) mg/dL Est GFR (CKD-EPI)AfAm 12 (>60 ml/min/1.73 sqM) Est GFR (CKD-EPI)NonAf 10 (>60 ml/min/1.73 sqM) Glucose 74 (74-99) mg/dL Plasma Lactic Acid Jarvis (0.7-2.0) mmol/L Calcium 8.9 (8.4-10.2) mg/dL Magnesium 2.8 H (1.6-2.3) mg/dL Total Bilirubin 0.7 (0.2-1.3) mg/dL AST 32 (17-59) U/L ALT 13 (4-49) U/L Alkaline Phosphatase 73 (38-126) U/L Troponin I (0.000-0.034) ng/mL NT-Pro-B Natriuret Pep pg/mL Total Protein 6.5 (6.3-8.2) g/dL Albumin 3.5 (3.5-5.0) g/dL Coronavirus (PCR) (Not Detectd) 09/28/21 09/28/21 09/28/21 Range/Units 19:32 19:32 19:32 WBC (3.8-10.6) k/uL RBC (4.30-5.90) m/uL Hgb (13.0-17.5) gm/dL Hct (39.0-53.0) % MCV (80.0-100.0) fL MCH (25.0-35.0) pg MCHC (31.0-37.0) g/dL RDW (11.5-15.5) % Plt Count (150-450) k/uL MPV Neutrophils % % Lymphocytes % % Monocytes % % Eosinophils % % Basophils % % Neutrophils # (1.3-7.7) k/uL Lymphocytes # (1.0-4.8) k/uL Monocytes # (0-1.0) k/uL Eosinophils # (0-0.7) k/uL Basophils # (0-0.2) k/uL Hypochromasia Poikilocytosis Anisocytosis PT (9.0-12.0) sec INR (<1.2) APTT (22.0-30.0) sec Sodium (137-145) mmol/L Potassium (3.5-5.1) mmol/L Chloride (98-107) mmol/L Carbon Dioxide (22-30) mmol/L Anion Gap mmol/L BUN (9-20) mg/dL Creatinine (0.66-1.25) mg/dL Est GFR (CKD-EPI)AfAm (>60 ml/min/1.73 sqM) Est GFR (CKD-EPI)NonAf (>60 ml/min/1.73 sqM) Glucose (74-99) mg/dL Plasma Lactic Acid Jarvis 4.7 H* (0.7-2.0) mmol/L Calcium (8.4-10.2) mg/dL Magnesium (1.6-2.3) mg/dL Total Bilirubin (0.2-1.3) mg/dL AST (17-59) U/L ALT (4-49) U/L Alkaline Phosphatase (38-126) U/L Troponin I 0.017 (0.000-0.034) ng/mL NT-Pro-B Natriuret Pep 3290 pg/mL Total Protein (6.3-8.2) g/dL Albumin (3.5-5.0) g/dL Coronavirus (PCR) (Not Detectd) 09/28/21 Range/Units 19:44 WBC (3.8-10.6) k/uL RBC (4.30-5.90) m/uL Hgb (13.0-17.5) gm/dL Hct (39.0-53.0) % MCV (80.0-100.0) fL MCH (25.0-35.0) pg MCHC (31.0-37.0) g/dL RDW (11.5-15.5) % Plt Count (150-450) k/uL MPV Neutrophils % % Lymphocytes % % Monocytes % % Eosinophils % % Basophils % % Neutrophils # (1.3-7.7) k/uL Lymphocytes # (1.0-4.8) k/uL Monocytes # (0-1.0) k/uL Eosinophils # (0-0.7) k/uL Basophils # (0-0.2) k/uL Hypochromasia Poikilocytosis Anisocytosis PT (9.0-12.0) sec INR (<1.2) APTT (22.0-30.0) sec Sodium (137-145) mmol/L Potassium (3.5-5.1) mmol/L Chloride (98-107) mmol/L Carbon Dioxide (22-30) mmol/L Anion Gap mmol/L BUN (9-20) mg/dL Creatinine (0.66-1.25) mg/dL Est GFR (CKD-EPI)AfAm (>60 ml/min/1.73 sqM) Est GFR (CKD-EPI)NonAf (>60 ml/min/1.73 sqM) Glucose (74-99) mg/dL Plasma Lactic Acid Jarvis (0.7-2.0) mmol/L Calcium (8.4-10.2) mg/dL Magnesium (1.6-2.3) mg/dL Total Bilirubin (0.2-1.3) mg/dL AST (17-59) U/L ALT (4-49) U/L Alkaline Phosphatase (38-126) U/L Troponin I (0.000-0.034) ng/mL NT-Pro-B Natriuret Pep pg/mL Total Protein (6.3-8.2) g/dL Albumin (3.5-5.0) g/dL Coronavirus (PCR) Not Detected (Not Detectd) Critical Care Time Critical Care Time: Yes Total Critical Care Time: 35 Disposition Clinical Impression: Acute renal failure, Anemia, Hyponatremia, Pulmonary edema Disposition: ADMITTED IP TO THIS HOSP Referrals: Jocelyn Sampson MD [Primary Care Provider] - 1-2 days Time of Disposition: 20:49
[2021-09-28 19:53] LABS: Albumin 3.5 g/dL (3.5-5.0); Calcium 8.9 mg/dL (8.4-10.2); INR 1.2 (<1.2); Magnesium 2.8 mg/dL (1.6-2.3); Partial Thromboplastin Time 25.5 sec (22.0-30.0); Potassium 4.5 mmol/L (3.5-5.1); Prothrombin Time 12.5 sec (9.0-12.0); Total Bilirubin 0.7 mg/dL (0.2-1.3); Total Protein 6.5 g/dL (6.3-8.2)
--- NOTE | 2021-09-28 20:43 | XR ---
EXAMINATION TYPE: XR chest 2V DATE OF EXAM: 09/28/2021 COMPARISON: 06/01/2021 HISTORY: Weakness and difficulty breathing. TECHNIQUE: Frontal and lateral views of the chest are obtained. FINDINGS: There is mild to moderate interstitial edema superimposed diffuse hazy opacity. No signifi cant pleural effusion, or pneumothorax seen. The cardiac silhouette size is enlarged. The osseous structures are intact. Left pacemaker seen. IMPRESSION: CHF.
[2021-09-28] MEDS ORDERED: FUROSEMIDE 10 MG/ML 10 ML VIAL IV STA (20:46)
[2021-09-28] MEDS ORDERED: SODIUM BICARB 8.4% 50 ML SYR (1 MEQ/ML) IV STA (20:47)
[2021-09-28] MEDS: MIDODRINE 5 MG TAB PO SCH (21:56)
[2021-09-28] MEDS ORDERED: MIDODRINE 5 MG TAB PO SCH (22:00)
--- NOTE | 2021-09-28 22:01 | US ---
EXAMINATION TYPE: US kidneys/renal and bladder DATE OF EXAM: 09/28/2021 COMPARISON: 2018 CT CLINICAL HISTORY: Acute renal failure. EXAM MEASUREMENTS: Right Kidney: 10.0 x 5.9 x 5.0 cm Left Kidney: 9.9 x 6.3 x 5.0 cm Very limited exam due to patient body habitus: INCIDENTAL FINDING - RUQ ascites Right Kidney: Limited visualization; no obvious masses Left Kidney: Limited visualization Bladder: not fully distended IMPRESSION: Small abdominal ascites. No sonographic evidence of hydronephrosis.
[2021-09-29 02:15] LABS: Appearance,Urine Clear (Clear); Bilirubin,Urine Negative (Negative); Blood,Urine Negative (Negative); Color,Urine Yellow; Glucose,Urine (UA) Negative (Negative); Ketones,Urine Negative (Negative); Leukocyte Esterase,Urine Negative (Negative); Nitrite,Urine Negative (Negative); Protein,Urine Negative (Negative); Specific Gravity,Urine 1.012 (1.001-1.035); Urobilinogen,Urine <2.0 mg/dL (<2.0)
[2021-09-29] MEDS ORDERED: LEVOTHYROXINE 50 MCG TAB PO STA (08:06)
[2021-09-29] MEDS: MIDODRINE 5 MG TAB PO SCH ×3 (08:09→18:04)
[2021-09-29] MEDS ORDERED: ACETAMINOPHEN TAB 325 MG TAB PO STA (09:05)
[2021-09-29] MEDS ORDERED: metOLazone 5 MG TAB PO SCH (10:00)
[2021-09-29] MEDS: LEVOTHYROXINE 50 MCG TAB PO SCH (10:08)
--- NOTE | 2021-09-29 12:28 | P.NPCON ---
History of Present Illness - Reason for Consult acute renal failure - History of Present Illness Patient is a 76-year-old male with previous history of type 2 diabetes CHF, COPD. He presents to the hospital with complaints of increased shortness of breath and increased weakness. Patient states that he has gained about 14 pounds over the last month or so. Patient reports that his urine output has been low. No history of use of NSAIDs Patient was found to be hypotensive on admission with systolic blood pressure in the 80s. BUN was 150 and serum creatinine 5.0. He received a dose of IV Lasix in the ER and states that he had fair urine output. Patient was also started on midodrine yesterday. Chest x-ray shows evidence of CHF Previous creatinine 1.2-1.4 in May 2021 and a creatinine of 1.8 on 08/08/2021 Review of Systems As per HPI, other systems negative Past Medical History Past Medical History: Atrial Fibrillation, Atrial Flutter, Cancer, COPD, Diabetes Mellitus, Hearing Disorder / Deafness, Hyperlipidemia, Hypertension, Osteoarthritis (OA), Pulmonary Embolus (PE), Renal Disease, Respiratory Disorder, Seizure Disorder, Skin Disorder, Sleep Apnea/CPAP/BIPAP, Thyroid Disorder, Vascular Disorder Additional Past Medical History / Comment(s): NIDDM type II, neuropathy bilateral legs/feet, sores/scabbed on bilateral lower legs/past sores and cellulitis, past sacral decub, PVD, aflutter with ablation, CHB with pacer and pt states he needs a new pacer but is waiting for blood clot in heart to dissolve prior, cardiomyopathy, diastolic CHF, chronic respiratory failure with home oxygen at 3L/NC ATC, pulmonary embolism, FRANCESCA with Cpap, bronchitis, renal failure, cancerous colon polyp with resection, hypothyroid, chronic generalized pain, bilateral tinnitis, pt states he currently has a "sore on R lower tongue/gum" History of Any Multi-Drug Resistant Organisms: MRSA Date of last positivie culture/infection: 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 Past Anesthesia/Blood Transfusion Reactions: No Reported Reaction Type of Cardiac Device: Permanent Pacemaker Device Placement Date:: 10/17/2012 Smoking Status: Former smoker - Past Family History Father History Unknown: Yes Additional Family Medical History / Comment(s): "hardening of the arteries" Mother History Unknown: Yes Additional Family Medical History / Comment(s): "water in the lungs" at 95 Medications and Allergies Home Medications Medication Instructions Recorded Confirmed Type Budesonide [Pulmicort] 0.5 mg INHALATION RT-BID PRN 11/20/13 09/28/21 History allopurinoL [Zyloprim] 300 mg PO DAILY 11/21/14 09/28/21 History Acetaminophen Tab [Tylenol] 325 mg PO QID PRN 07/12/16 09/28/21 History Ergocalciferol [Vitamin D2 50,000 unit PO HODGES 07/12/16 09/28/21 History (DRISDOL)] Multivitamins, Thera [Multivitamin 1 tab PO DAILY 10/03/17 09/28/21 History (formulary)] Torsemide [Demadex] 40 mg PO DAILY 10/03/17 09/28/21 History Albuterol Sulfate [Proair Hfa] 2 puff INHALATION RT-QID PRN 06/23/18 09/28/21 History Levothyroxine Sodium [Synthroid] 50 mcg PO DAILY 05/24/21 09/28/21 History Lovastatin [Altoprev] 20 mg PO DAILY 05/24/21 09/28/21 History Metoprolol Tartrate [Lopressor] 25 mg PO BID 05/24/21 09/28/21 History Docusate [Colace] 100 mg PO BID cap 06/06/21 09/28/21 Rx metOLazone [Zaroxolyn] 5 mg PO DAILY tab 06/06/21 09/28/21 Rx Ipratropium-Albuterol Nebulize 3 ml INHALATION RT-Q6H PRN 08/09/21 09/28/21 History [Duoneb 0.5 mg-3 mg/3 ml Soln] glipiZIDE [Glucotrol] 10 mg PO BID 08/09/21 09/28/21 History metFORMIN HCL [Glucophage] 1,000 mg PO BID 08/09/21 09/28/21 History Potassium Chloride [Klor-Con 20] 20 meq PO DAILY 08/15/21 09/28/21 History Apixaban [Eliquis] 5 mg PO BID 09/28/21 09/28/21 History Aspirin EC [Ecotrin Low Dose] 81 mg PO DAILY 09/28/21 09/28/21 History Magnesium Chloride [Slow-Mag] 64 mg PO DAILY 09/28/21 09/28/21 History Allergies Allergy/AdvReac Type Severity Reaction Status Date / Time No Known Allergies Allergy Verified 09/28/21 19:45 Physical Exam Vitals: Vital Signs Temp Pulse Resp BP Pulse Ox 09/29/21 11:14 82 18 88/44 92 L 09/29/21 09:00 85 20 98/47 92 L 09/29/21 08:10 85 98/47 09/29/21 08:00 77 20 84/51 92 L 09/29/21 07:00 98.1 F 79 24 84/52 88 L 09/29/21 06:00 102 H 85/46 89 L 09/29/21 05:00 78 86/49 92 L 09/29/21 04:00 80 90/52 09/29/21 03:00 80 19 107/70 98 09/29/21 02:30 79 17 93/61 97 09/29/21 02:00 78 14 98 09/29/21 01:30 101 H 18 96/54 09/29/21 01:00 98.3 F 83 11 L 89/69 91 L 09/29/21 00:30 105/69 09/29/21 00:00 73 16 97/59 94 L 09/28/21 23:30 101 H 18 108/54 92 L 09/28/21 23:00 101 H 33 H 103/60 97 09/28/21 22:30 75 16 97/58 09/28/21 22:00 77 11 L 101/76 09/28/21 21:30 98 18 100/60 98 09/28/21 21:00 73 15 89/77 98 09/28/21 20:30 24 92/72 97 09/28/21 20:00 71 16 90/59 97 09/28/21 18:22 71 20 82/58 98 Intake and Output 09/28/21 09/29/21 09/29/21 22:59 06:59 14:59 Other: Weight 131.995 kg 131.995 kg Patient is awake, comfortable, not in any acute distress. Examination of the heart S1 and S2 Examination lungs bilateral breath sounds are heard with basal crackles heard and decreased breath sounds at the bases Examination of the abdomen reveals it to be obese soft nontender Examination lower extremity shows chronic skin changes with chronic edema QUALITY PROCESS LEAD exam grossly intact Results - Lab Results Most recent lab results Calcium 8.9 mg/dL (8.4-10.2) 09/28/21 19:32 Magnesium 2.8 mg/dL (1.6-2.3) H 09/28/21 19:32 09/28/21 19:32 09/28/21 19:32 Assessment and Plan Assessment: 1. Acute kidney injury mostly ATN, nonoliguric, associated with low blood pressure. Repeat labs today. No evidence of hydronephrosis on ultrasound Sunday at [facility] is completely benign 2. Hypotension, possibly cardiac. EF noted to be 40-45% on echocardiogram done in July 2021 3. Hypo-natremia, hypervolemic. Repeat labs. I will also check random cortisol given the hypotension 4. Metabolic acidosis associated with acute kidney injury. Add oral sodium bicarb and repeat labs 5. Anemia, no active bleeding noted. Check iron profile 6. Cardiomyopathy with EF 40-45% 7. Type 2 diabetes Plan: Maintain midodrine Repeat labs Hold potassium Check iron profile Check random cortisol level DC magnesium oxide as mag level is high Continue off of metformin
[2021-09-29 12:35] LABS: Anisocytosis Slight; Basophils # (A) 0.1 k/uL (0-0.2); Basophils % (A) 1 %; Eosinophils # (A) 0.1 k/uL (0-0.7); Eosinophils % (A) 1 %; HCT 23.2 % (39.0-53.0); Hypochromasia Marked; Lymphocytes # (A) 1.6 k/uL (1.0-4.8); Lymphocytes % (A) 14 %; MCH 27.8 pg (25.0-35.0); MCV 92.7 fL (80.0-100.0); Mean Platelet Volume 8.1; Monocytes # (A) 0.6 k/uL (0-1.0); Monocytes % (A) 6 %; Neutrophils # (A) 8.7 k/uL (1.3-7.7); Neutrophils % (A) 77 %; Platelet Count 330 k/uL (150-450); Poikilocytosis Marked; RDW 18.4 % (11.5-15.5); WBC 11.2 k/uL (3.8-10.6)
[2021-09-29 12:45] LABS: Albumin 3.5 g/dL (3.5-5.0); Potassium 4.6 mmol/L (3.5-5.1); Total Bilirubin 0.8 mg/dL (0.2-1.3); Total Protein 6.7 g/dL (6.3-8.2)
[2021-09-29] MEDS ORDERED: metFORMIN 500 MG TAB PO SCH (17:30)
[2021-09-29 17:50] LABS: Glucose,Whole Blood 64 mg/dL (75-99)
[2021-09-29 18:07] LABS: Glucose,Whole Blood 61 mg/dL (75-99)
[2021-09-29 18:23] LABS: Glucose,Whole Blood 78 mg/dL (75-99)
[2021-09-29 20:31] LABS: Glucose,Whole Blood 94 mg/dL (75-99)
[2021-09-29] MEDS: METOPROLOL TARTRATE 25 MG TAB PO SCH (20:33)
[2021-09-29] MEDS: DOCUSATE 100 MG CAP PO SCH (20:34)
[2021-09-29] MEDS: SODIUM BICARBONATE TAB 650 MG TAB PO SCH (20:34)
[2021-09-29] MEDS ORDERED: APIXABAN 5 MG TAB PO SCH (21:00)
[2021-09-29] MEDS: ACETAMINOPHEN TAB 325 MG TAB PO PRN (21:43)
[2021-09-29 23:30] LABS: % Iron Saturation 3.61 (15.00-50.00)
[2021-09-30 01:23] LABS: Glucose,Whole Blood 73 mg/dL (75-99)
[2021-09-30 05:51] LABS: Glucose,Whole Blood 71 mg/dL (75-99)
[2021-09-30] MEDS: LEVOTHYROXINE 50 MCG TAB PO SCH (06:06)
[2021-09-30] MEDS: MIDODRINE 5 MG TAB PO SCH ×4 (06:06→19:49)
[2021-09-30] MEDS: ACETAMINOPHEN TAB 325 MG TAB PO PRN (06:07)
--- NOTE | 2021-09-30 07:49 | P.GSCN ---
History of Present Illness History of present illness: 76-year-old gentleman I was consulted for placement CATHETER. Patient came with history of shortness of breath his urine is 150 creatinine is 5. Cardio patient has gained about 14 pounds. Patient has a pacemaker on the left side patient also has a history of sleep apnea hypertension type 2 diabetes Neck is supple Chest her crackles bilateral Abdomen is protuberant no peritoneal sign Vascular tracheal radial femorals 1+ patient has a marked swelling of both lower extremity Plan is placement of a dialysis catheter risk and complication discussed Past Medical History Past Medical History: Atrial Fibrillation, Atrial Flutter, Cancer, COPD, Diabetes Mellitus, Hearing Disorder / Deafness, Hyperlipidemia, Hypertension, Osteoarthritis (OA), Pulmonary Embolus (PE), Renal Disease, Respiratory Disorder, Seizure Disorder, Skin Disorder, Sleep Apnea/CPAP/BIPAP, Thyroid Disorder, Vascular Disorder Additional Past Medical History / Comment(s): NIDDM type II, neuropathy bilateral legs/feet, sores/scabbed on bilateral lower legs/past sores and cellulitis, past sacral decub, PVD, aflutter with ablation, CHB with pacer and pt states he needs a new pacer but is waiting for blood clot in heart to dissolve prior, cardiomyopathy, diastolic CHF, chronic respiratory failure with home oxygen at 3L/NC ATC, pulmonary embolism, FRANCESCA with Cpap, bronchitis, renal failure, cancerous colon polyp with resection, hypothyroid, chronic generalized pain, bilateral tinnitis, pt states he currently has a "sore on R lower tongue/gum" History of Any Multi-Drug Resistant Organisms: MRSA Year Discovered:: 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 Past Anesthesia/Blood Transfusion Reactions: No Reported Reaction Type of Cardiac Device: Permanent Pacemaker Device Placement Date:: 10/17/2012 Smoking Status: Former smoker - Past Family History Father History Unknown: Yes Additional Family Medical History / Comment(s): "hardening of the arteries" Mother History Unknown: Yes Additional Family Medical History / Comment(s): "water in the lungs" at 95 Medications and Allergies Home Medications Medication Instructions Recorded Confirmed Type Budesonide [Pulmicort] 0.5 mg INHALATION RT-BID PRN 11/20/13 09/28/21 History allopurinoL [Zyloprim] 300 mg PO DAILY 11/21/14 09/28/21 History Acetaminophen Tab [Tylenol] 325 mg PO QID PRN 07/12/16 09/28/21 History Ergocalciferol [Vitamin D2 50,000 unit PO HODGES 07/12/16 09/28/21 History (DRISDOL)] Multivitamins, Thera [Multivitamin 1 tab PO DAILY 10/03/17 09/28/21 History (formulary)] Torsemide [Demadex] 40 mg PO DAILY 10/03/17 09/28/21 History Albuterol Sulfate [Proair Hfa] 2 puff INHALATION RT-QID PRN 06/23/18 09/28/21 History Levothyroxine Sodium [Synthroid] 50 mcg PO DAILY 05/24/21 09/28/21 History Lovastatin [Altoprev] 20 mg PO DAILY 05/24/21 09/28/21 History Metoprolol Tartrate [Lopressor] 25 mg PO BID 05/24/21 09/28/21 History Docusate [Colace] 100 mg PO BID cap 06/06/21 09/28/21 Rx metOLazone [Zaroxolyn] 5 mg PO DAILY tab 06/06/21 09/28/21 Rx Ipratropium-Albuterol Nebulize 3 ml INHALATION RT-Q6H PRN 08/09/21 09/28/21 History [Duoneb 0.5 mg-3 mg/3 ml Soln] glipiZIDE [Glucotrol] 10 mg PO BID 08/09/21 09/28/21 History metFORMIN HCL [Glucophage] 1,000 mg PO BID 08/09/21 09/28/21 History Potassium Chloride [Klor-Con 20] 20 meq PO DAILY 08/15/21 09/28/21 History Apixaban [Eliquis] 5 mg PO BID 09/28/21 09/28/21 History Aspirin EC [Ecotrin Low Dose] 81 mg PO DAILY 09/28/21 09/28/21 History Magnesium Chloride [Slow-Mag] 64 mg PO DAILY 09/28/21 09/28/21 History Allergies Allergy/AdvReac Type Severity Reaction Status Date / Time No Known Allergies Allergy Verified 09/28/21 19:45 Surgical - Exam Vital Signs Pulse Resp BP Pulse Ox 71 20 82/58 98 09/28/21 18:22 09/28/21 18:22 09/28/21 18:22 09/28/21 18:22 Results - Labs 09/29/21 12:12 09/29/21 12:12 Abnormal Lab Results - Last 24 Hours (Table) 09/29/21 09/29/21 09/29/21 Range/Units 12:12 12:12 12:12 WBC 11.2 H (3.8-10.6) k/uL RBC 2.50 L (4.30-5.90) m/uL Hgb 7.0 L (13.0-17.5) gm/dL Hct 23.2 L (39.0-53.0) % MCHC 30.0 L (31.0-37.0) g/dL RDW 18.4 H (11.5-15.5) % Neutrophils # 8.7 H (1.3-7.7) k/uL Sodium 127 L (137-145) mmol/L Chloride 90 L (98-107) mmol/L Carbon Dioxide 20 L (22-30) mmol/L BUN 158 H* (9-20) mg/dL Creatinine 5.46 H (0.66-1.25) mg/dL Glucose 57 L (74-99) mg/dL POC Glucose (mg/dL) (75-99) mg/dL Iron 22 L (65-175) ug/dL TIBC 595 H (228-460) ug/dL % Saturation 3.61 L (15.00-50.00) Transferrin 425.0 H (204.0-354.0) mg/dL 09/29/21 09/29/21 09/30/21 Range/Units 17:49 18:05 01:22 WBC (3.8-10.6) k/uL RBC (4.30-5.90) m/uL Hgb (13.0-17.5) gm/dL Hct (39.0-53.0) % MCHC (31.0-37.0) g/dL RDW (11.5-15.5) % Neutrophils # (1.3-7.7) k/uL Sodium (137-145) mmol/L Chloride (98-107) mmol/L Carbon Dioxide (22-30) mmol/L BUN (9-20) mg/dL Creatinine (0.66-1.25) mg/dL Glucose (74-99) mg/dL POC Glucose (mg/dL) 64 L 61 L 73 L (75-99) mg/dL Iron (65-175) ug/dL TIBC (228-460) ug/dL % Saturation (15.00-50.00) Transferrin (204.0-354.0) mg/dL 09/30/21 Range/Units 05:51 WBC (3.8-10.6) k/uL RBC (4.30-5.90) m/uL Hgb (13.0-17.5) gm/dL Hct (39.0-53.0) % MCHC (31.0-37.0) g/dL RDW (11.5-15.5) % Neutrophils # (1.3-7.7) k/uL Sodium (137-145) mmol/L Chloride (98-107) mmol/L Carbon Dioxide (22-30) mmol/L BUN (9-20) mg/dL Creatinine (0.66-1.25) mg/dL Glucose (74-99) mg/dL POC Glucose (mg/dL) 71 L (75-99) mg/dL Iron (65-175) ug/dL TIBC (228-460) ug/dL % Saturation (15.00-50.00) Transferrin (204.0-354.0) mg/dL Microbiology - Last 24 Hours (Table) 09/28/21 19:30 Blood Culture - Preliminary Blood No Growth after 24 hours 09/28/21 19:15 Blood Culture - Preliminary Blood No Growth after 24 hours Diabetes panel 09/29/21 Range/Units 12:12 Sodium 127 L (137-145) mmol/L Potassium 4.6 (3.5-5.1) mmol/L Chloride 90 L (98-107) mmol/L Carbon Dioxide 20 L (22-30) mmol/L BUN 158 H* (9-20) mg/dL Creatinine 5.46 H (0.66-1.25) mg/dL Glucose 57 L (74-99) mg/dL Calcium 9.0 (8.4-10.2) mg/dL AST 26 (17-59) U/L ALT 12 (4-49) U/L Alkaline Phosphatase 80 (38-126) U/L Total Protein 6.7 (6.3-8.2) g/dL Albumin 3.5 (3.5-5.0) g/dL Calcium panel 09/29/21 Range/Units 12:12 Calcium 9.0 (8.4-10.2) mg/dL Albumin 3.5 (3.5-5.0) g/dL Pituitary panel 09/29/21 Range/Units 12:12 Sodium 127 L (137-145) mmol/L Potassium 4.6 (3.5-5.1) mmol/L Chloride 90 L (98-107) mmol/L Carbon Dioxide 20 L (22-30) mmol/L BUN 158 H* (9-20) mg/dL Creatinine 5.46 H (0.66-1.25) mg/dL Glucose 57 L (74-99) mg/dL Calcium 9.0 (8.4-10.2) mg/dL Adrenal panel 09/29/21 Range/Units 12:12 Sodium 127 L (137-145) mmol/L Potassium 4.6 (3.5-5.1) mmol/L Chloride 90 L (98-107) mmol/L Carbon Dioxide 20 L (22-30) mmol/L BUN 158 H* (9-20) mg/dL Creatinine 5.46 H (0.66-1.25) mg/dL Glucose 57 L (74-99) mg/dL Calcium 9.0 (8.4-10.2) mg/dL Total Bilirubin 0.8 (0.2-1.3) mg/dL AST 26 (17-59) U/L ALT 12 (4-49) U/L Alkaline Phosphatase 80 (38-126) U/L Total Protein 6.7 (6.3-8.2) g/dL Albumin 3.5 (3.5-5.0) g/dL
[2021-09-30] MEDS: DOCUSATE 100 MG CAP PO SCH ×2 (08:52→19:48)
[2021-09-30] MEDS: MULTIVITAMINS, THERA 1 EACH TAB PO SCH (08:52)
[2021-09-30] MEDS: SODIUM BICARBONATE TAB 650 MG TAB PO SCH ×2 (08:52→19:49)
[2021-09-30] MEDS: allopurinoL 300 MG TAB PO SCH (08:52)
[2021-09-30] MEDS: ATORVASTATIN 10 MG TAB PO SCH (08:52)
[2021-09-30] MEDS: METOPROLOL TARTRATE 25 MG TAB PO SCH ×2 (08:52→19:09)
[2021-09-30] MEDS ORDERED: NON FORMULARY DRUG (Aspirin Ec 81 MG Tablet) PO SCH (09:00)
[2021-09-30] MEDS ORDERED: POTASSIUM CHLORIDE ER 20 MEQ TAB.ER PO SCH (09:00)
[2021-09-30] MEDS ORDERED: TORSEMIDE 20 MG TAB PO SCH (09:00)
[2021-09-30] MEDS ORDERED: MAGNESIUM OXIDE 400 MG TAB PO SCH (09:00)
[2021-09-30] MEDS: ALBUTEROL NEBULIZED 2.5 MG/3 ML INHALATION PRN (09:15)
[2021-09-30] MEDS: BUDESONIDE 0.5 MG/2 ML NEBU INHALATION PRN (09:15)
--- NOTE | 2021-09-30 10:32 | P.HPIM ---
History of Present Illness H&P Date: 09/29/21 Tristian Galloway, is a 76-year-old male patient of Dr. Sampson who presented with concerns of increasing weight gain and increased shortness of breath over the past 3 weeks. Patient has a past medical history of CHF, atrial fibrillation, diabetes mellitus and COPD. Patient denies any recent acute illness. Patient denies nausea vomiting or diarrhea. Reports significant increase in lower extremity edema. Chest x-ray completed showing CHF. Ultrasound of kidneys and bladder completed showing no evidence of hydronephrosis small abdominal ascites. Lab work indicated of hyponatremia with sodium low at 126, creatinine elevated at 5.02 and bun 150. Initial lactic acid also elevated at 3.4. Repeat lactic acid 1.6. Patient also noted to be hypotensive with a blood pressure 86/52. At this time nephrology consulted. At this time patient is resting comfortably in chair. Patient is on 4 L nasal cannula. Temp 96.4, heart rate 65, respiratory rate 18 Review of Systems Please refer to HPI otherwise unremarkable Past Medical History Past Medical History: Atrial Fibrillation, COPD, Diabetes Mellitus, Hyperlipidemia, Sleep Apnea/CPAP/BIPAP Additional Past Medical History / Comment(s): cardiomyopathy. arthritis. 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 VIANEY, bilateral cataract removal with lens implants Past Anesthesia/Blood Transfusion Reactions: No Reported Reaction Type of Cardiac Device: Permanent Pacemaker Device Placement Date:: 10/17/2012 Past Psychological History: Depression Smoking Status: Never smoker Past Alcohol Use History: Rare Past Drug Use History: None Reported - Past Family History Father History Unknown: Yes Additional Family Medical History / Comment(s): "hardening of the arteries" Mother History Unknown: Yes Additional Family Medical History / Comment(s): "water in the lungs" at 95 Medications and Allergies Home Medications Medication Instructions Recorded Confirmed Type Budesonide [Pulmicort] 0.5 mg INHALATION RT-BID PRN 11/20/13 09/28/21 History allopurinoL [Zyloprim] 300 mg PO DAILY 11/21/14 09/28/21 History Acetaminophen Tab [Tylenol] 325 mg PO QID PRN 07/12/16 09/28/21 History Ergocalciferol [Vitamin D2 50,000 unit PO HODGES 07/12/16 09/28/21 History (DRISDOL)] Multivitamins, Thera [Multivitamin 1 tab PO DAILY 10/03/17 09/28/21 History (formulary)] Torsemide [Demadex] 40 mg PO DAILY 10/03/17 09/28/21 History Albuterol Sulfate [Proair Hfa] 2 puff INHALATION RT-QID PRN 06/23/18 09/28/21 History Levothyroxine Sodium [Synthroid] 50 mcg PO DAILY 05/24/21 09/28/21 History Lovastatin [Altoprev] 20 mg PO DAILY 05/24/21 09/28/21 History Metoprolol Tartrate [Lopressor] 25 mg PO BID 05/24/21 09/28/21 History Docusate [Colace] 100 mg PO BID cap 06/06/21 09/28/21 Rx metOLazone [Zaroxolyn] 5 mg PO DAILY tab 06/06/21 09/28/21 Rx Ipratropium-Albuterol Nebulize 3 ml INHALATION RT-Q6H PRN 08/09/21 09/28/21 History [Duoneb 0.5 mg-3 mg/3 ml Soln] glipiZIDE [Glucotrol] 10 mg PO BID 08/09/21 09/28/21 History metFORMIN HCL [Glucophage] 1,000 mg PO BID 08/09/21 09/28/21 History Potassium Chloride [Klor-Con 20] 20 meq PO DAILY 08/15/21 09/28/21 History Apixaban [Eliquis] 5 mg PO BID 09/28/21 09/28/21 History Aspirin EC [Ecotrin Low Dose] 81 mg PO DAILY 09/28/21 09/28/21 History Magnesium Chloride [Slow-Mag] 64 mg PO DAILY 09/28/21 09/28/21 History Allergies Allergy/AdvReac Type Severity Reaction Status Date / Time No Known Allergies Allergy Verified 09/28/21 19:45 Physical Exam Vitals: Vital Signs Temp Pulse Resp BP Pulse Ox 09/29/21 09:00 85 20 98/47 92 L 09/29/21 08:10 85 98/47 09/29/21 08:00 77 20 84/51 92 L 09/29/21 07:00 98.1 F 79 24 84/52 88 L 09/29/21 06:00 102 H 85/46 89 L 09/29/21 05:00 78 86/49 92 L 09/29/21 04:00 80 90/52 09/29/21 03:00 80 19 107/70 98 09/29/21 02:30 79 17 93/61 97 09/29/21 02:00 78 14 98 09/29/21 01:30 101 H 18 96/54 09/29/21 01:00 98.3 F 83 11 L 89/69 91 L 09/29/21 00:30 105/69 09/29/21 00:00 73 16 97/59 94 L 09/28/21 23:30 101 H 18 108/54 92 L 09/28/21 23:00 101 H 33 H 103/60 97 09/28/21 22:30 75 16 97/58 09/28/21 22:00 77 11 L 101/76 09/28/21 21:30 98 18 100/60 98 09/28/21 21:00 73 15 89/77 98 09/28/21 20:30 24 92/72 97 09/28/21 20:00 71 16 90/59 97 09/28/21 18:22 71 20 82/58 98 Intake and Output 09/28/21 09/29/21 09/29/21 22:59 06:59 14:59 Other: Weight 131.995 kg Head normocephalic Neck supple Lungs diminished bilaterally with crackles Heart regular rate and rhythm S1-S2, no rub or gallop Abdomen is soft nontender nondistended positive bowel sounds no hepatosplenomegaly Extremities +2 lower extremity edema. +2 upper extremity edema Neuro alert and orientated to 3 Results CBC & Chem 7: 09/29/21 12:12 09/29/21 12:12 Labs: Abnormal Lab Results - Last 24 Hours (Table) 09/28/21 09/28/21 09/28/21 Range/Units 19:32 19:32 19:32 RBC 2.60 L (4.30-5.90) m/uL Hgb 7.2 L (13.0-17.5) gm/dL Hct 24.6 L (39.0-53.0) % MCHC 29.3 L (31.0-37.0) g/dL RDW 18.0 H (11.5-15.5) % PT 12.5 H (9.0-12.0) sec INR 1.2 H (<1.2) Sodium 126 L (137-145) mmol/L Chloride 90 L (98-107) mmol/L Carbon Dioxide 17 L (22-30) mmol/L BUN 150 H* (9-20) mg/dL Creatinine 5.02 H (0.66-1.25) mg/dL Plasma Lactic Acid Jarvis (0.7-2.0) mmol/L Magnesium 2.8 H (1.6-2.3) mg/dL 09/28/21 09/28/21 09/29/21 Range/Units 19:32 22:41 03:20 RBC (4.30-5.90) m/uL Hgb (13.0-17.5) gm/dL Hct (39.0-53.0) % MCHC (31.0-37.0) g/dL RDW (11.5-15.5) % PT (9.0-12.0) sec INR (<1.2) Sodium (137-145) mmol/L Chloride (98-107) mmol/L Carbon Dioxide (22-30) mmol/L BUN (9-20) mg/dL Creatinine (0.66-1.25) mg/dL Plasma Lactic Acid Jarvis 4.7 H* 3.4 H* 2.9 H* (0.7-2.0) mmol/L Magnesium (1.6-2.3) mg/dL Assessment and Plan Assessment: 1. Increased edema and dyspnea secondary to acute kidney injury. Nephrology services have been consulted 2. Hypotension. Maintained on Midirone 3. Hyponatremia. Nephrology services following 4. Ischemic cardiomyopathy status post pacemaker placement 5. Metabolic acidosis associated with acute kidney injury 6. Diabetes mellitus type 2 7. Hypothyroidism DVT prophylaxis SCDs due to plans of hemodialysis access placement. GI prophylaxis Protonix Nephrology and vascular surgery consulted Repeat labs ordered Time with Patient: Greater than 30 (Greater than 60% of the total time spent in counseling and coordination of care)
--- NOTE | 2021-09-30 10:34 | P.PN ---
Subjective Progress Note Date: 09/30/21 Tristian Galloway, is a 76-year-old male patient of Dr. Sampson who presented with concerns of increasing weight gain and increased shortness of breath over the past 3 weeks. Patient has a past medical history of CHF, atrial fibrillation, diabetes mellitus and COPD. Patient denies any recent acute illness. Patient denies nausea vomiting or diarrhea. Reports significant increase in lower extremity edema. Chest x-ray completed showing CHF. Ultrasound of kidneys and bladder completed showing no evidence of hydronephrosis small abdominal ascites. Lab work indicated of hyponatremia with sodium low at 126, creatinine elevated at 5.02 and bun 150. Initial lactic acid also elevated at 3.4. Repeat lactic acid 1.6. Patient also noted to be hypotensive with a blood pressure 86/52. At this time nephrology consulted. At this time patient is resting comfortably in chair. Patient is on 4 L nasal cannula. Temp 96.4, heart rate 65, respiratory rate 18 On 09/30/2021 patient is alert and oriented times he currently sitting up in chair. Plans for hemodialysis catheter placement today with possible plans of hemodialysis per nephrology services. Patient remains on 4 L nasal cannula. Patient denies chest pain. Patient denies nausea vomiting or diarrhea. Patient denies any urinary burning or frequency Objective - Vital Signs Vital signs: Vital Signs Temp 96.4 F L 09/30/21 08:00 Pulse 82 09/30/21 09:33 Resp 18 09/30/21 08:00 BP 86/52 09/30/21 08:00 Pulse Ox 96 09/30/21 08:00 Intake & Output 09/29/21 09/30/21 09/30/21 18:59 06:59 18:59 Intake Total 480 10 Output Total 300 Balance 480 -300 10 Weight 131.995 kg 133.1 kg Intake: IV 10 Invasive Line 2 10 Oral 480 Output: Urine 300 Other: Voiding Method Toilet Bedside Commode # Voids 1 # Bowel Movements 1 - Exam Head normocephalic Neck supple Lungs diminished bilaterally with crackles Heart regular rate and rhythm S1-S2, no rub or gallop Abdomen is soft nontender nondistended positive bowel sounds no hepatosplenomegaly Extremities +2 lower extremity edema. +2 upper extremity edema Neuro alert and orientated to 3 - Labs CBC & Chem 7: 09/29/21 12:12 09/29/21 12:12 Labs: Abnormal Lab Results - Last 24 Hours (Table) 09/29/21 09/29/21 09/29/21 Range/Units 12:12 12:12 12:12 WBC 11.2 H (3.8-10.6) k/uL RBC 2.50 L (4.30-5.90) m/uL Hgb 7.0 L (13.0-17.5) gm/dL Hct 23.2 L (39.0-53.0) % MCHC 30.0 L (31.0-37.0) g/dL RDW 18.4 H (11.5-15.5) % Neutrophils # 8.7 H (1.3-7.7) k/uL Sodium 127 L (137-145) mmol/L Chloride 90 L (98-107) mmol/L Carbon Dioxide 20 L (22-30) mmol/L BUN 158 H* (9-20) mg/dL Creatinine 5.46 H (0.66-1.25) mg/dL Glucose 57 L (74-99) mg/dL POC Glucose (mg/dL) (75-99) mg/dL Iron 22 L (65-175) ug/dL TIBC 595 H (228-460) ug/dL % Saturation 3.61 L (15.00-50.00) Transferrin 425.0 H (204.0-354.0) mg/dL 09/29/21 09/29/21 09/30/21 Range/Units 17:49 18:05 01:22 WBC (3.8-10.6) k/uL RBC (4.30-5.90) m/uL Hgb (13.0-17.5) gm/dL Hct (39.0-53.0) % MCHC (31.0-37.0) g/dL RDW (11.5-15.5) % Neutrophils # (1.3-7.7) k/uL Sodium (137-145) mmol/L Chloride (98-107) mmol/L Carbon Dioxide (22-30) mmol/L BUN (9-20) mg/dL Creatinine (0.66-1.25) mg/dL Glucose (74-99) mg/dL POC Glucose (mg/dL) 64 L 61 L 73 L (75-99) mg/dL Iron (65-175) ug/dL TIBC (228-460) ug/dL % Saturation (15.00-50.00) Transferrin (204.0-354.0) mg/dL 09/30/21 Range/Units 05:51 WBC (3.8-10.6) k/uL RBC (4.30-5.90) m/uL Hgb (13.0-17.5) gm/dL Hct (39.0-53.0) % MCHC (31.0-37.0) g/dL RDW (11.5-15.5) % Neutrophils # (1.3-7.7) k/uL Sodium (137-145) mmol/L Chloride (98-107) mmol/L Carbon Dioxide (22-30) mmol/L BUN (9-20) mg/dL Creatinine (0.66-1.25) mg/dL Glucose (74-99) mg/dL POC Glucose (mg/dL) 71 L (75-99) mg/dL Iron (65-175) ug/dL TIBC (228-460) ug/dL % Saturation (15.00-50.00) Transferrin (204.0-354.0) mg/dL Microbiology - Last 24 Hours (Table) 09/28/21 19:30 Blood Culture - Preliminary Blood No Growth after 24 hours 09/28/21 19:15 Blood Culture - Preliminary Blood No Growth after 24 hours Assessment and Plan Assessment: 1. Increased edema and dyspnea secondary to acute kidney injury. Nephrology services have been consulted 2. Hypotension. Maintained on Midirone 3. Hyponatremia. Nephrology services following 4. Ischemic cardiomyopathy status post pacemaker placement 5. Metabolic acidosis associated with acute kidney injury 6. Diabetes mellitus type 2 7. Hypothyroidism DVT prophylaxis SCDs due to plans of hemodialysis access placement. GI prophylaxis Protonix Nephrology and vascular surgery consulted Plans for hemodialysis catheter placement today 09/30/2021 Repeat labs ordered
[2021-09-30] MEDS ORDERED: DEXTROSE 50% SYRINGE 50 ML IVP ONE (11:46)
[2021-09-30 11:47] LABS: Glucose,Whole Blood 63 mg/dL (75-99)
[2021-09-30 12:07] LABS: Glucose,Whole Blood 170 mg/dL (75-99)
[2021-09-30] MEDS ORDERED: IV FLUID CONTINUATION 200 ML IV ONE (12:50)
[2021-09-30] MEDS ORDERED: LIDOCAINE 1% INJ 10MG/ML (20 ML MDV) SQ ONE (12:56)
[2021-09-30] MEDS ORDERED: fentaNYL (PF) 50 MCG/ML 2 ML AMP ONE (13:02)
[2021-09-30] MEDS ORDERED: fentaNYL (PF) 50 MCG/ML 2 ML AMP IV ONE (13:03)
--- NOTE | 2021-09-30 13:48 | IR ---
EXAMINATION TYPE: IR cvc insert central tunneled DATE OF EXAM: 09/30/2021 COMPARISON: NONE HISTORY: Renal failure Fluoroscopy support supplied to the referring clinician. See dictated report from vascular surgery, 2.1 minutes fluoroscopy time, 14 intraoperative C-arm images
[2021-09-30] MEDS ORDERED: ONDANSETRON 4 MG/2 ML VIAL IVP PRN (13:50)
--- NOTE | 2021-09-30 14:02 | P.PN ---
Subjective Patient is a 76-year-old male with history of type 2 diabetes, CHF, COPD. He presented to the hospital with complaints of increased shortness of breath and increased weakness. Patient states he has gained about 14 pounds over the last 6 weeks or so. BUN was 150 and serum creatinine at 5 mg/dL on admission. Patient remains hypotensive. He is also volume overloaded. No evidence of obstruction noted on imaging studies. UA is completely benign. In view of significantly elevated BUN/creatinine and persistent volume overload patient will be dialyzed. I have discussed with him. He is agreeable. We will proceed with first treatment today. Consider inotropic agents as ejection fraction was 40-45% in July 2021. No evidence of clear infection. Objective - Vital Signs Vital signs: Vital Signs Temp 96.4 F L 09/30/21 11:53 Pulse 69 09/30/21 11:53 Resp 18 09/30/21 11:53 BP 82/49 09/30/21 11:53 Pulse Ox 92 L 09/30/21 11:53 Intake & Output 09/29/21 09/30/21 09/30/21 18:59 06:59 18:59 Intake Total 480 160 Output Total 300 Balance 480 -300 160 Weight 131.995 kg 133.1 kg 132.903 kg Intake: IV 160 Invasive Line 2 10 Oral 480 Output: Urine 300 Other: Voiding Method Toilet Bedside Commode # Voids 1 # Bowel Movements 1 - Exam Patient is awake comfortable. Not in any acute distress. Examination of the heart S1 and S2 Examination lungs bilateral breath sounds are heard Abdomen is soft obese nontender Examination lower extremity shows chronic edema chronic skin changes about 3+ bilaterally PUBLIC RELATIONS ASSISTANT exam grossly intact - Labs CBC & Chem 7: 09/29/21 12:12 09/29/21 12:12 Labs: Abnormal Lab Results - Last 24 Hours (Table) 09/29/21 09/29/21 09/29/21 Range/Units 12:12 17:49 18:05 POC Glucose (mg/dL) 64 L 61 L (75-99) mg/dL Iron 22 L (65-175) ug/dL TIBC 595 H (228-460) ug/dL % Saturation 3.61 L (15.00-50.00) Transferrin 425.0 H (204.0-354.0) mg/dL 09/30/21 09/30/21 09/30/21 Range/Units 01:22 05:51 11:43 POC Glucose (mg/dL) 73 L 71 L 63 L (75-99) mg/dL Iron (65-175) ug/dL TIBC (228-460) ug/dL % Saturation (15.00-50.00) Transferrin (204.0-354.0) mg/dL 09/30/21 Range/Units 12:05 POC Glucose (mg/dL) 170 H (75-99) mg/dL Iron (65-175) ug/dL TIBC (228-460) ug/dL % Saturation (15.00-50.00) Transferrin (204.0-354.0) mg/dL Microbiology - Last 24 Hours (Table) 09/28/21 19:30 Blood Culture - Preliminary Blood No Growth after 24 hours 09/28/21 19:15 Blood Culture - Preliminary Blood No Growth after 24 hours Assessment and Plan Assessment: 1. Acute kidney injury mostly ATN, nonoliguric, associated with low blood pressure. Most likely cardiorenal as well. No evidence of obstruction. UA is completely bland 2. Hypotension, possibly cardiac. EF noted to be 40-45% on echocardiogram done in July 2021 3. Hypo-natremia, hypervolemic. Repeat labs. I will also check random cortisol given the hypotension 4. Metabolic acidosis associated with acute kidney injury. Add oral sodium bicarb and repeat labs 5. Anemia, no active bleeding noted. Significant iron deficiency noted 6. Cardiomyopathy with EF 40-45% 7. Type 2 diabetes Plan: Maintain midodrine Start hemodialysis. Vascular surgery has been consulted patient will be dialyzed today. He is agreeable. We will repeat hemodialysis in a.mDenis Brand at In the meantime consider dobutamine as urine output remains low. Start IV iron
[2021-09-30 14:47] LABS: Glucose,Whole Blood 108 mg/dL (75-99)
--- NOTE | 2021-09-30 15:19 | PCN ---
PROCEDURE NOTE PREOP DIAGNOSIS: Acute on chronic renal failure. POSTOP DIAGNOSIS: Acute on chronic renal failure. PROCEDURE PERFORMED: Ultrasound-guided 20 cm dialysis catheter, right jugular approach. SEDATION: Time was 20 minutes. DESCRIPTION OF PROCEDURE: Patient brought to the veterinary laboratory diagnostician. Right side of the neck and chest was prepped and drapes applied in the usual sterile manner. Ultrasound-guided micropuncture into the right jugular vein. Micropuncture guide passed and 4-Thai dilated on top of the guidewire. Then we created a tunnel. Through the tunnel, we brought 23 cm dialysis catheter. We passed a guidewire which was parked in the inferior vena cava. The dilator was advanced on the top of the guidewire under fluoroscopic control. Sheath was advanced on the top of the guidewire. Through the sheath, we introduced the dialysis catheter. Tip of the catheter in superior vena cava atrial junction. There was free flow noted. Flushed with heparin saline and hep-locked, secured with 3-0 nylon. Patient tolerated the procedure well. MMODL / IJN: [id number] /
--- NOTE | 2021-09-30 15:48 | XR ---
EXAMINATION TYPE: XR chest 1V DATE OF EXAM: 09/30/2021 COMPARISON: Chest x-ray 09/28/2021 HISTORY: Status post hemodialysis catheter placement TECHNIQUE: frontal view of the chest is obtained on 2 images. FINDINGS: There is been interval placement of a right jugular central venous catheter, catheter tip is overlying superior vena cava. No evident pneumothorax. No other significant interval change. Is or density persists on the left, there is obscured left hemidiaphragm. Heart remains enlarged. IMPRESSION: No evident complication status post central venous catheter placement.
[2021-09-30 15:49] LABS: Glucose,Whole Blood 103 mg/dL (75-99)
[2021-09-30] MEDS ORDERED: SODIUM CHLORIDE 0.9% 500 ML 500 ML IV ONE (15:51)
[2021-09-30] MEDS: SODIUM FERRIC GLUCONAT-SUCROSE 125 MG in SODIUM CHLORIDE 0.9% 100 ML IVPB SCH (16:07)
[2021-09-30 16:40] LABS: Glucose,Whole Blood 94 mg/dL (75-99)
--- NOTE | 2021-09-30 16:44 | ECHOF ---
Referral Reason:LV fxn MEASUREMENTS -------- HEIGHT: 180.3 cm WEIGHT: 132.9 kg BP: RVIDd: 3.8 cm (< 3.3) IVSd: 2.0 cm (0.6 - 1.1) LVIDd: 4.5 cm (3.9 - 5.3) LVPWd: 1.8 cm (0.6 - 1.1) IVSs: 2.1 cm LVIDs: 2.2 cm LVPWs: 2.2 cm Ao Diam: 3.1 cm (2.0 - 3.7) AV Cusp: 2.2 cm (1.5 - 2.6) LA Diam: 3.7 cm (2.7 - 3.8) MV EXCURSION: 16.432 mm (> 18.000) MV EF SLOPE: 120 mm/s (70 - 150) EPSS: 0.7 cm MV E Lenin: 0.42 m/s MV DecT: 221 ms MV A Lenin: 0.45 m/s MV E/A Ratio: 0.94 AV maxP.25 mmHg AV meanP.09 mmHg RAP: 20.00 mmHg RVSP: 45.50 mmHg FINDINGS -------- Paced rhythm. This was a technically adequate study. The left ventricular size is normal. There is severe concentric left ventricular hypertrophy. Ove rall left ventricular systolic function is low-normal with, an EF between 50 - 55 %. The right ventricle is moderately enlarged. The left atrial size is normal. RA appears enlarged. The aortic valve is trileaflet and appears structurally normal. The mitral valve is normal. Mild mitral regurgitation is present. There is mild mitral valve prol apse. The tricuspid valve appears structurally normal. Severe tricuspid regurgitation present. There is mild to moderate pulmonary hypertension. The right ventricular systolic pressure, as measured by D oppler, is 45.50mmHg. There is no pulmonic regurgitation present. The aortic root size is normal. The inferior vena cava is dilated with no significant inspiratory collapse which is consistent estima kerry right atrial pressure of >20 mmHg. There is no pericardial effusion. Large Pleural Effusion. CONCLUSIONS -------- 1. Paced rhythm. 2. The left ventricular size is normal. 3. There is severe concentric left ventricular hypertrophy. 4. Overall left ventricular systolic function is low-normal with, an EF between 50 - 55 %. 5. The right ventricle is moderately enlarged. 6. RA appears enlarged. 7. The aortic valve is trileaflet and appears structurally normal. 8. Mild mitral regurgitation is present. 9. There is mild mitral valve prolapse. 10. Severe tricuspid regurgitation present. 11. There is mild to moderate pulmonary hypertension. 12. The right ventricular systolic pressure, as measured by Doppler, is 45.50mmHg. 13. The inferior vena cava is dilated with no significant inspiratory collapse which is consistent es timated right atrial pressure of >20 mmHg. 14. There is no pericardial effusion. NURSING HOME ASSISTANT ADMINISTRATOR: Sharyn Carreno RDCS
[2021-09-30 17:02] LABS: Anisocytosis Slight; Basophils % (A) 0 %; Eosinophils # (A) 0.1 k/uL (0-0.7); Eosinophils % (A) 1 %; Hypochromasia Marked; Lymphocytes # (A) 0.8 k/uL (1.0-4.8); Lymphocytes % (A) 9 %; MCH 27.4 pg (25.0-35.0); MCHC 29.4 g/dL (31.0-37.0); MCV 93.2 fL (80.0-100.0); Mean Platelet Volume 8.4; Monocytes # (A) 0.4 k/uL (0-1.0); Monocytes % (A) 5 %; Neutrophils # (A) 7.3 k/uL (1.3-7.7); Neutrophils % (A) 83 %; Platelet Count 301 k/uL (150-450); Poikilocytosis Marked; RBC 2.14 m/uL (4.30-5.90); RDW 18.3 % (11.5-15.5); WBC 8.8 k/uL (3.8-10.6)
[2021-09-30 17:14] LABS: HGB 5.9 gm/dL (13.0-17.5)
[2021-09-30 18:51] LABS: Hepatitis B Surface AB- Quant 3.5 mIU/mL; Hepatitis B Surface Antibody Nonreactive (Nonreactive)
[2021-09-30 18:53] LABS: Hepatitis B Surface Antigen Nonreactive (Nonreactive)
[2021-09-30] MEDS: PANTOPRAZOLE 40 MG/10 ML VIAL IVP SCH (19:49)
[2021-09-30 20:08] LABS: Glucose,Whole Blood 101 mg/dL (75-99)
--- NOTE | 2021-09-30 22:37 | CONS ---
CONSULTATION HISTORY OF PRESENT ILLNESS: This is a 76-year-old gentleman with history of permanent atrial fibrillation, sick sinus syndrome, status post permanent pacemaker, hypertension, diabetes, who presented to hospital with increasing weight gain and shortness of breath of 3 weeks duration. He was found to be in renal failure with a creatinine of 5, low sodium and elevated BUN. The patient also had nausea, vomiting. He was hypotensive. I have been consulted because of his cardiac history. The patient does not have chest pain, has shortness of breath primarily from fluid overload and at the time of my evaluation, he is being dialyzed. An echocardiogram that was done today shows preserved LV function and he does not have any pericardial effusion. The patient has mild bilateral leg edema. EKG shows atrial fibrillation with nonspecific ST-T wave changes. PAST MEDICAL HISTORY: Significant for permanent atrial fibrillation, diabetes, dyslipidemia, sleep apnea, and COPD. PAST SURGICAL HISTORY: Include cataract surgery and pacemaker. ALLERGIES: Are as charted. FAMILY HISTORY: Negative for premature coronary artery disease. SOCIAL HISTORY: Negative for current smoking, EtOH abuse or drug abuse. REVIEW OF SYSTEMS: HEENT is unremarkable. CARDIAC as described above. RESPIRATORY: Significant for shortness of breath. CONSTITUTIONAL: Significant for fatigue tiredness. GI significant for nausea, vomiting. GENITOURINARY significant for renal insufficiency. PSYCHOSOCIAL: Negative. DERM negative. MUSCULOSKELETAL significant for arthritis. Rest of the system review is not relevant. EXAM: Comfortable at rest. Heart rate is 70 beats per minute, blood pressure is 97/64, respiratory is 18, O2 saturation is 92% on 4 L. There is no jugular venous distention. CHEST exam reveals diminished air entry at the bases. There are no crackles or rhonchi. HEART exam reveals first and second heart sounds and a systolic murmur at the apex. ABDOMEN is soft, nontender. Examination of EXTREMITIES reveals bilateral pitting edema and chronic stasis changes. LABS: Have been reviewed and creatinine is 5.4. Hemoglobin is low at 7, platelet count is 330. An echocardiogram has been reviewed. EKG shows paced rhythm with underlying atrial fibrillation. ASSESSMENT: 1. Permanent atrial fibrillation. 2. Sick sinus syndrome, status post permanent pacemaker. 3. Acute renal failure with fluid overload and acute onset heart failure, diastolic, secondary to the renal failure. PLAN: Patient will be dialyzed. Resume the Eliquis. The blood pressure permitting, we will resume his cardiac medications. Thank you for giving us the privilege to participate in the care of this pleasant gentleman. Sincerely, FRANCISCA / FAWN: [phone] /
--- NOTE | 2021-09-30 23:35 | P.CONS ---
History of Present Illness - Reason for Consult Consult date: 09/30/21 Cellulitis Requesting physician: Catrina Lew - Chief Complaint Shortness of breath x 3 weeks - History of Present Illness Patient is a 76-year-old male with a past medical history significant for diabetes mellitus COPD congestive heart failure patient presented to the ER 2 days ago for evaluation of increasing shortness of breath and cough that has been progressively getting worse over the last 3 weeks the patient denies having any chest pain patient not bringing up any sputum patient denies having any nausea or vomiting denies any abdominal pain or any diarrhea patient did have some chronic swelling to the lower extremity but denies any worsening swelling redness no open wound or any drainage patient on presentation to the hospital was afebrile and no fever has been recorded subsequently patient did have a normal white count admission repeat was 11.2 that was done yesterday, no CBC today patient was noticed to have worsening of his kidney function nephrology has evaluated the patient and recommending dialysis for which dialysis catheter will be placed today patient was started on cefazolin concerning for possible cellulitis infectious disease was consulted for further management of antibiotic therapy Review of Systems Positive point has been mentioned in the HPI rest of the systems are negative Past Medical History Past Medical History: Atrial Fibrillation, COPD, Diabetes Mellitus, Hyperlipidemia, Sleep Apnea/CPAP/BIPAP Additional Past Medical History / Comment(s): cardiomyopathy. arthritis. 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 VIANEY, bilateral cataract removal with lens implants Past Anesthesia/Blood Transfusion Reactions: No Reported Reaction Type of Cardiac Device: Permanent Pacemaker Device Placement Date:: 10/17/2012 Past Psychological History: Depression Smoking Status: Never smoker Past Alcohol Use History: Rare Past Drug Use History: None Reported - Past Family History Father History Unknown: Yes Additional Family Medical History / Comment(s): "hardening of the arteries" Mother History Unknown: Yes Additional Family Medical History / Comment(s): "water in the lungs" at 95 Medications and Allergies Home Medications Medication Instructions Recorded Confirmed Type Budesonide [Pulmicort] 0.5 mg INHALATION RT-BID PRN 11/20/13 09/28/21 History allopurinoL [Zyloprim] 300 mg PO DAILY 11/21/14 09/28/21 History Acetaminophen Tab [Tylenol] 325 mg PO QID PRN 07/12/16 09/28/21 History Ergocalciferol [Vitamin D2 50,000 unit PO HODGES 07/12/16 09/28/21 History (DRISDOL)] Multivitamins, Thera [Multivitamin 1 tab PO DAILY 10/03/17 09/28/21 History (formulary)] Torsemide [Demadex] 40 mg PO DAILY 10/03/17 09/28/21 History Albuterol Sulfate [Proair Hfa] 2 puff INHALATION RT-QID PRN 06/23/18 09/28/21 History Levothyroxine Sodium [Synthroid] 50 mcg PO DAILY 05/24/21 09/28/21 History Lovastatin [Altoprev] 20 mg PO DAILY 05/24/21 09/28/21 History Metoprolol Tartrate [Lopressor] 25 mg PO BID 05/24/21 09/28/21 History Docusate [Colace] 100 mg PO BID cap 06/06/21 09/28/21 Rx metOLazone [Zaroxolyn] 5 mg PO DAILY tab 06/06/21 09/28/21 Rx Ipratropium-Albuterol Nebulize 3 ml INHALATION RT-Q6H PRN 08/09/21 09/28/21 History [Duoneb 0.5 mg-3 mg/3 ml Soln] glipiZIDE [Glucotrol] 10 mg PO BID 08/09/21 09/28/21 History metFORMIN HCL [Glucophage] 1,000 mg PO BID 08/09/21 09/28/21 History Potassium Chloride [Klor-Con 20] 20 meq PO DAILY 08/15/21 09/28/21 History Apixaban [Eliquis] 5 mg PO BID 09/28/21 09/28/21 History Aspirin EC [Ecotrin Low Dose] 81 mg PO DAILY 09/28/21 09/28/21 History Magnesium Chloride [Slow-Mag] 64 mg PO DAILY 09/28/21 09/28/21 History Allergies Allergy/AdvReac Type Severity Reaction Status Date / Time No Known Allergies Allergy Verified 09/28/21 19:45 Physical Exam Vitals: Vital Signs Temp Pulse Pulse Resp BP BP Pulse Ox 09/30/21 11:53 96.4 F L 69 18 82/49 92 L 09/30/21 09:33 82 09/30/21 08:00 96.4 F L 65 18 86/52 96 09/30/21 04:00 96.7 F L 58 L 18 81/51 94 L 09/30/21 01:41 69 18 09/29/21 23:35 97.0 F L 69 18 91/46 94 L 09/29/21 20:00 96.7 F L 79 18 93/52 09/29/21 17:25 98.2 F 74 22 94/64 95 09/29/21 13:42 105 H 18 92/51 98 Intake and Output 09/29/21 09/30/21 09/30/21 22:59 06:59 14:59 Intake Total 480 10 Output Total 200 100 Balance 280 -100 10 Intake: IV 10 Invasive Line 2 10 Oral 480 Output: Urine 200 100 Other: Voiding Method Toilet Toilet Bedside Commode # Voids 1 # Bowel Movements 1 1 Weight 133.1 kg 132.903 kg GENERAL DESCRIPTION: Elderly male up in the chair, no distress. No tachypnea or accessory muscle of respiration use. HEENT: Shows Pallor , no scleral icterus. Oral mucous membrane is dry. No pharyngeal erythema or thrush NECK: Trachea central, no thyromegaly. LUNGS: Unlabored breathing. Clear to auscultation anteriorly. No wheeze or crackle. HEART: S1, S2, regular rate and rhythm. No loud murmur ABDOMEN: Soft, no tenderness , guarding or rigidity, no organomegaly EXTREMITIES: Diffuse swelling about the lateral lower extremity with some chronic skin changes no redness no open wound or drainage SKIN: No rash, no masses palpable. NEUROLOGICAL: The patient is awake, alert, oriented x3, mood and affect normal. Results CBC & Chem 7: 09/30/21 16:22 09/29/21 12:12 Labs: Abnormal Lab Results - Last 24 Hours (Table) 09/29/21 09/29/21 09/29/21 Range/Units 12:12 12:12 17:49 Sodium 127 L (137-145) mmol/L Chloride 90 L (98-107) mmol/L Carbon Dioxide 20 L (22-30) mmol/L BUN 158 H* (9-20) mg/dL Creatinine 5.46 H (0.66-1.25) mg/dL Glucose 57 L (74-99) mg/dL POC Glucose (mg/dL) 64 L (75-99) mg/dL Iron 22 L (65-175) ug/dL TIBC 595 H (228-460) ug/dL % Saturation 3.61 L (15.00-50.00) Transferrin 425.0 H (204.0-354.0) mg/dL 09/29/21 09/30/21 09/30/21 Range/Units 18:05 01:22 05:51 Sodium (137-145) mmol/L Chloride (98-107) mmol/L Carbon Dioxide (22-30) mmol/L BUN (9-20) mg/dL Creatinine (0.66-1.25) mg/dL Glucose (74-99) mg/dL POC Glucose (mg/dL) 61 L 73 L 71 L (75-99) mg/dL Iron (65-175) ug/dL TIBC (228-460) ug/dL % Saturation (15.00-50.00) Transferrin (204.0-354.0) mg/dL 09/30/21 09/30/21 Range/Units 11:43 12:05 Sodium (137-145) mmol/L Chloride (98-107) mmol/L Carbon Dioxide (22-30) mmol/L BUN (9-20) mg/dL Creatinine (0.66-1.25) mg/dL Glucose (74-99) mg/dL POC Glucose (mg/dL) 63 L 170 H (75-99) mg/dL Iron (65-175) ug/dL TIBC (228-460) ug/dL % Saturation (15.00-50.00) Transferrin (204.0-354.0) mg/dL Microbiology - Last 24 Hours (Table) 09/28/21 19:30 Blood Culture - Preliminary Blood No Growth after 24 hours 09/28/21 19:15 Blood Culture - Preliminary Blood No Growth after 24 hours Assessment and Plan (1) Leukocytosis Current Visit: Yes Status: Acute Code(s): D72.829 - ELEVATED WHITE BLOOD CELL COUNT, UNSPECIFIED SNOMED Code(s): 134295842 (2) Swelling of lower extremity Current Visit: Yes Status: Acute Code(s): M79.89 - OTHER SPECIFIED SOFT TISSUE DISORDERS SNOMED Code(s): 038328909 Plan: 1patient presented to hospital with increasing shortness of breath and did have evidence of lower extremity edema but no definite cellulitis was noticed, and more likely related to his underlying renal failure or the patient will be dialyzed today. 2mild elevated white count possibly reactive. 3antibiotics can be safely discontinued We will follow on clinical condition and cultures to further adjust medication if needed Thank you for this consultation will follow this patient along with you
[2021-10-01 01:49] LABS: Glucose,Whole Blood 103 mg/dL (75-99)
[2021-10-01 04:17] LABS: Anisocytosis Slight; Basophils # (A) 0.1 k/uL (0-0.2); Basophils % (A) 1 %; Eosinophils # (A) 0.1 k/uL (0-0.7); Eosinophils % (A) 1 %; HCT 23.3 % (39.0-53.0); HGB 7.1 gm/dL (13.0-17.5); Hypochromasia Marked; Lymphocytes # (A) 1.3 k/uL (1.0-4.8); Lymphocytes % (A) 13 %; MCH 28.4 pg (25.0-35.0); MCHC 30.4 g/dL (31.0-37.0); MCV 93.6 fL (80.0-100.0); Mean Platelet Volume 8.1; Monocytes # (A) 0.8 k/uL (0-1.0); Monocytes % (A) 8 %; Neutrophils # (A) 7.4 k/uL (1.3-7.7); Neutrophils % (A) 75 %; Platelet Count 286 k/uL (150-450); Poikilocytosis Marked; RBC 2.49 m/uL (4.30-5.90); RDW 17.4 % (11.5-15.5); WBC 9.9 k/uL (3.8-10.6)
[2021-10-01] MEDS ORDERED: SODIUM CHLORIDE 0.9% 500 ML 500 ML IV ONE (04:35)
[2021-10-01 04:42] LABS: Albumin 3.2 g/dL (3.5-5.0); Calcium 8.5 mg/dL (8.4-10.2); Potassium 4.9 mmol/L (3.5-5.1); Total Protein 6.3 g/dL (6.3-8.2)
[2021-10-01] MEDS: LEVOTHYROXINE 50 MCG TAB PO SCH (04:46)
[2021-10-01 06:17] LABS: Glucose,Whole Blood 106 mg/dL (75-99)
[2021-10-01] MEDS ORDERED: PANTOPRAZOLE 40 MG TABLET PO SCH (07:30)
[2021-10-01] MEDS ORDERED: PHENYLEPHRINE-0.9% NACL SYG 1,000 MCG/10 ML SYRINGE ONE (07:52)
[2021-10-01] MEDS ORDERED: MIDAZOLAM 2 MG/2 ML VIAL ONE (07:52)
[2021-10-01] MEDS ORDERED: LIDOCAINE 1% INJ 10MG/ML (20 ML MDV) ONE (07:52)
[2021-10-01] MEDS ORDERED: PROPOFOL 10 MG/ML 20 ML VIAL IV ONE (07:52)
[2021-10-01] MEDS ORDERED: ePHEDrine 50 MG/ML 1 ML VIAL ONE (07:52)
[2021-10-01] MEDS ORDERED: KETAMINE 10 MG/ML 20 ML VIAL ONE (07:52)
[2021-10-01] MEDS ORDERED: IV FLUID CONTINUATION 1,000 ML IV ONE (07:57)
--- NOTE | 2021-10-01 07:59 | P.GSCN ---
History of Present Illness Consult date: 10/01/21 Reason for Consult: Upper GI bleed History of present illness: 76-year-old male yesterday evening had an episode of hematemesis. Patient has h ad progressive shortness of breath. Patient with history of known diabetes and obesity. Patient hospitalized with significant kidney failure. Had dialysis catheter placement yesterday and is starting dialysis today. Patient was on eloquis for history of A. fib. Last dose of eloquis 2 days ago. Has not had a bowel movement in several days. We were asked proceed with EGD today Review of Systems The patient denies any acute changes in vision or hearing, no dysphagia or odynophagia, no dysuria or hematuria, no headache, no runny nose, no unexplained weight loss Past Medical History Past Medical History: Atrial Fibrillation, COPD, Diabetes Mellitus, Hyperlipidemia, Sleep Apnea/CPAP/BIPAP Additional Past Medical History / Comment(s): cardiomyopathy. arthritis. 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 VIANEY, bilateral cataract removal with lens implants Past Anesthesia/Blood Transfusion Reactions: No Reported Reaction Type of Cardiac Device: Permanent Pacemaker Device Placement Date:: 10/17/2012 Past Psychological History: Depression Smoking Status: Never smoker Past Alcohol Use History: Rare Past Drug Use History: None Reported - Past Family History Father History Unknown: Yes Additional Family Medical History / Comment(s): "hardening of the arteries" Mother History Unknown: Yes Additional Family Medical History / Comment(s): "water in the lungs" at 95 Medications and Allergies Home Medications Medication Instructions Recorded Confirmed Type Budesonide [Pulmicort] 0.5 mg INHALATION RT-BID PRN 11/20/13 09/28/21 History allopurinoL [Zyloprim] 300 mg PO DAILY 11/21/14 09/28/21 History Acetaminophen Tab [Tylenol] 325 mg PO QID PRN 07/12/16 09/28/21 History Ergocalciferol [Vitamin D2 50,000 unit PO HODGES 07/12/16 09/28/21 History (DRISDOL)] Multivitamins, Thera [Multivitamin 1 tab PO DAILY 10/03/17 09/28/21 History (formulary)] Torsemide [Demadex] 40 mg PO DAILY 10/03/17 09/28/21 History Albuterol Sulfate [Proair Hfa] 2 puff INHALATION RT-QID PRN 06/23/18 09/28/21 History Levothyroxine Sodium [Synthroid] 50 mcg PO DAILY 05/24/21 09/28/21 History Lovastatin [Altoprev] 20 mg PO DAILY 05/24/21 09/28/21 History Metoprolol Tartrate [Lopressor] 25 mg PO BID 05/24/21 09/28/21 History Docusate [Colace] 100 mg PO BID cap 06/06/21 09/28/21 Rx metOLazone [Zaroxolyn] 5 mg PO DAILY tab 06/06/21 09/28/21 Rx Ipratropium-Albuterol Nebulize 3 ml INHALATION RT-Q6H PRN 08/09/21 09/28/21 History [Duoneb 0.5 mg-3 mg/3 ml Soln] glipiZIDE [Glucotrol] 10 mg PO BID 08/09/21 09/28/21 History metFORMIN HCL [Glucophage] 1,000 mg PO BID 08/09/21 09/28/21 History Potassium Chloride [Klor-Con 20] 20 meq PO DAILY 08/15/21 09/28/21 History Apixaban [Eliquis] 5 mg PO BID 09/28/21 09/28/21 History Aspirin EC [Ecotrin Low Dose] 81 mg PO DAILY 09/28/21 09/28/21 History Magnesium Chloride [Slow-Mag] 64 mg PO DAILY 09/28/21 09/28/21 History Allergies Allergy/AdvReac Type Severity Reaction Status Date / Time No Known Allergies Allergy Verified 09/28/21 19:45 Surgical - Exam Vital Signs Pulse Resp BP Pulse Ox 71 20 82/58 98 09/28/21 18:22 09/28/21 18:22 09/28/21 18:22 09/28/21 18:22 Physical exam: General: Well-developed, well-nourished HEENT: Normocephalic, sclerae nonicteric, right sided catheter noted Abdomen: Nontender, nondistended Extremities: Bilateral edema Neuro: Alert and oriented Results - Labs 10/01/21 03:43 03/12/22 03:43 Abnormal Lab Results - Last 24 Hours (Table) 09/28/21 09/30/21 09/30/21 Range/Units 21:20 11:43 12:05 RBC (4.30-5.90) m/uL Hgb (13.0-17.5) gm/dL Hct (39.0-53.0) % MCHC (31.0-37.0) g/dL RDW (11.5-15.5) % Lymphocytes # (1.0-4.8) k/uL Sodium (137-145) mmol/L Chloride (98-107) mmol/L Carbon Dioxide (22-30) mmol/L BUN (9-20) mg/dL Creatinine (0.66-1.25) mg/dL POC Glucose (mg/dL) 63 L 170 H (75-99) mg/dL Albumin (3.5-5.0) g/dL Crossmatch See Detail 09/30/21 09/30/21 09/30/21 Range/Units 14:44 15:47 16:22 RBC 2.14 L (4.30-5.90) m/uL Hgb 5.9 L* (13.0-17.5) gm/dL Hct 20.0 L (39.0-53.0) % MCHC 29.4 L (31.0-37.0) g/dL RDW 18.3 H (11.5-15.5) % Lymphocytes # 0.8 L (1.0-4.8) k/uL Sodium (137-145) mmol/L Chloride (98-107) mmol/L Carbon Dioxide (22-30) mmol/L BUN (9-20) mg/dL Creatinine (0.66-1.25) mg/dL POC Glucose (mg/dL) 108 H 103 H (75-99) mg/dL Albumin (3.5-5.0) g/dL Crossmatch 09/30/21 10/01/21 10/01/21 Range/Units 20:06 01:48 03:43 RBC (4.30-5.90) m/uL Hgb (13.0-17.5) gm/dL Hct (39.0-53.0) % MCHC (31.0-37.0) g/dL RDW (11.5-15.5) % Lymphocytes # (1.0-4.8) k/uL Sodium 130 L (137-145) mmol/L Chloride 96 L (98-107) mmol/L Carbon Dioxide 21 L (22-30) mmol/L BUN 118 H* (9-20) mg/dL Creatinine 5.01 H (0.66-1.25) mg/dL POC Glucose (mg/dL) 101 H 103 H (75-99) mg/dL Albumin 3.2 L (3.5-5.0) g/dL Crossmatch 10/01/21 10/01/21 Range/Units 03:43 06:16 RBC 2.49 L (4.30-5.90) m/uL Hgb 7.1 L (13.0-17.5) gm/dL Hct 23.3 L (39.0-53.0) % MCHC 30.4 L (31.0-37.0) g/dL RDW 17.4 H (11.5-15.5) % Lymphocytes # (1.0-4.8) k/uL Sodium (137-145) mmol/L Chloride (98-107) mmol/L Carbon Dioxide (22-30) mmol/L BUN (9-20) mg/dL Creatinine (0.66-1.25) mg/dL POC Glucose (mg/dL) 106 H (75-99) mg/dL Albumin (3.5-5.0) g/dL Crossmatch Microbiology - Last 24 Hours (Table) 09/28/21 19:30 Blood Culture - Preliminary Blood No Growth after 48 hours 09/28/21 19:15 Blood Culture - Preliminary Blood No Growth after 48 hours Diabetes panel 10/01/21 Range/Units 03:43 Sodium 130 L (137-145) mmol/L Potassium 4.9 (3.5-5.1) mmol/L Chloride 96 L (98-107) mmol/L Carbon Dioxide 21 L (22-30) mmol/L BUN 118 H* (9-20) mg/dL Creatinine 5.01 H (0.66-1.25) mg/dL Glucose 84 (74-99) mg/dL Calcium 8.5 (8.4-10.2) mg/dL AST 29 (17-59) U/L ALT 13 (4-49) U/L Alkaline Phosphatase 75 (38-126) U/L Total Protein 6.3 (6.3-8.2) g/dL Albumin 3.2 L (3.5-5.0) g/dL Calcium panel 10/01/21 Range/Units 03:43 Calcium 8.5 (8.4-10.2) mg/dL Albumin 3.2 L (3.5-5.0) g/dL Pituitary panel 10/01/21 Range/Units 03:43 Sodium 130 L (137-145) mmol/L Potassium 4.9 (3.5-5.1) mmol/L Chloride 96 L (98-107) mmol/L Carbon Dioxide 21 L (22-30) mmol/L BUN 118 H* (9-20) mg/dL Creatinine 5.01 H (0.66-1.25) mg/dL Glucose 84 (74-99) mg/dL Calcium 8.5 (8.4-10.2) mg/dL Adrenal panel 10/01/21 Range/Units 03:43 Sodium 130 L (137-145) mmol/L Potassium 4.9 (3.5-5.1) mmol/L Chloride 96 L (98-107) mmol/L Carbon Dioxide 21 L (22-30) mmol/L BUN 118 H* (9-20) mg/dL Creatinine 5.01 H (0.66-1.25) mg/dL Glucose 84 (74-99) mg/dL Calcium 8.5 (8.4-10.2) mg/dL Total Bilirubin 1.0 (0.2-1.3) mg/dL AST 29 (17-59) U/L ALT 13 (4-49) U/L Alkaline Phosphatase 75 (38-126) U/L Total Protein 6.3 (6.3-8.2) g/dL Albumin 3.2 L (3.5-5.0) g/dL Assessment and Plan (1) Upper GI bleed Narrative/Plan: Will proceed with EGD at this time. Current Visit: Yes Status: Acute Code(s): K92.2 - GASTROINTESTINAL HEMORRHAGE, UNSPECIFIED SNOMED Code(s): 59173333
--- NOTE | 2021-10-01 08:49 | P.PCN ---
Date of Procedure: 10/01/21 Procedure(s) Performed: Preoperative Dx: Upper GI bleed Postoperative Dx: Bleeding gastric AVM, retained contents, gastritis, hiatal hernia, Schatzki's ring Procedure: EGD with control of bleeding Anesthesia: Sedation Endoscopist: Dr. Rainey Specimens: None Endoscopic Procedure: The patient was on the endoscopy table in the left decubitus position. The Olympus gastroscope was inserted into the oropharynx and passed under direct visualization to the region of the third portion of the duodenum. From that point the scope was slowly withdrawn inspecting all surfaces carefully. There were no neoplastic inflammatory or polypoid lesions throughout the duodenum. The pylorus was widely patent. There was bile throughout the duodenum. The stomach was carefully inspected. There was retained food like material and medications particularly in the fundus. The majority of this could be evacuated so we could evaluate the stomach. I was able to quickly identify an area of bleeding coming from a pinpoint area along the lesser curvature. There did not appear to be any mucosal abnormality there. This appeared to be consistent with a dual Halie lesion or AVM. This was quickly cauterized using the gold probe in no further bleeding was seen. The patient was noted to have a small moderate sized hiatal hernia. At the GE junction itself there was mild stricture formation consistent with Schatzki's ring. The remainder the esophagus appeared normal. Overall evaluation of the stomach was somewhat limited given the retained food, clot and medications present. The patient was then taken to the recovery room in stable condition per anesthesia guidelines. Recommendations: Will resume a liquid diet. I called the patient's to notify her of the endoscopic findings and no answer at that time. Could not leave a message. Continue to follow hemoglobin. Continue to hold anticoagulation. Continue aggressive antiacid therapy. We will add Carafate as well.
[2021-10-01] MEDS: SODIUM FERRIC GLUCONAT-SUCROSE 125 MG in SODIUM CHLORIDE 0.9% 100 ML IVPB SCH (09:00)
[2021-10-01] MEDS: PANTOPRAZOLE 40 MG/10 ML VIAL IVP SCH ×2 (09:03→20:31)
[2021-10-01] MEDS: METOPROLOL TARTRATE 25 MG TAB PO SCH ×2 (09:04→19:22)
[2021-10-01] MEDS: MIDODRINE 5 MG TAB PO SCH ×4 (09:09→20:31)
[2021-10-01 09:35] LABS: Anisocytosis Slight; Basophils # (A) 0.1 k/uL (0-0.2); Basophils % (A) 1 %; Eosinophils # (A) 0.1 k/uL (0-0.7); Eosinophils % (A) 1 %; HCT 22.9 % (39.0-53.0); Hypochromasia Marked; Lymphocytes # (A) 1.8 k/uL (1.0-4.8); Lymphocytes % (A) 16 %; MCH 27.8 pg (25.0-35.0); MCHC 29.7 g/dL (31.0-37.0); MCV 93.6 fL (80.0-100.0); Mean Platelet Volume 9.1; Monocytes % (A) 9 %; Neutrophils # (A) 7.6 k/uL (1.3-7.7); Neutrophils % (A) 71 %; Platelet Count 261 k/uL (150-450); Poikilocytosis Marked; RBC 2.45 m/uL (4.30-5.90); RDW 17.3 % (11.5-15.5); WBC 10.8 k/uL (3.8-10.6)
[2021-10-01 09:39] LABS: HGB 6.8 gm/dL (13.0-17.5)
--- NOTE | 2021-10-01 11:03 | P.PN ---
Subjective Progress Note Date: 10/01/21 Tristian Galloway, is a 76-year-old male patient of Dr. Sampson who presented with concerns of increasing weight gain and increased shortness of breath over the past 3 weeks. Patient has a past medical history of CHF, atrial fibrillation, diabetes mellitus and COPD. Patient denies any recent acute illness. Patient denies nausea vomiting or diarrhea. Reports significant increase in lower extremity edema. Chest x-ray completed showing CHF. Ultrasound of kidneys and bladder completed showing no evidence of hydronephrosis small abdominal ascites. Lab work indicated of hyponatremia with sodium low at 126, creatinine elevated at 5.02 and bun 150. Initial lactic acid also elevated at 3.4. Repeat lactic acid 1.6. Patient also noted to be hypotensive with a blood pressure 86/52. At this time nephrology consulted. At this time patient is resting comfortably in chair. Patient is on 4 L nasal cannula. Temp 96.4, heart rate 65, respiratory rate 18 On 09/30/2021 patient is alert and oriented times he currently sitting up in chair. Plans for hemodialysis catheter placement today with possible plans of hemodialysis per nephrology services. Patient remains on 4 L nasal cannula. Patient denies chest pain. Patient denies nausea vomiting or diarrhea. Patient denies any urinary burning or frequency. On 10/01/2021 patient was seen and examined on the medical floor he is alert and oriented 3 in no apparent distress, at this time he is undergoing hemodialysis, he underwent EGD this morning with Dr. Rainey, patient had evidence of bleeding gastric AVM and this was cauterized, this morning hemoglobin is 6.8, at this time patient does not qualify for red blood cell transfusion, will monitor closely, otherwise patient is complaining of generalized pain and discomfort he denies any fever or chills no headache or dizziness no chest pain no shortness of breath no cough no nausea or vomiting no abdominal pain no diarrhea and no urinary symptoms. Objective - Vital Signs Vital signs: Vital Signs Temp 96.8 F L 10/01/21 09:42 Pulse 76 10/01/21 09:42 Resp 18 10/01/21 09:42 BP 89/50 10/01/21 09:42 Pulse Ox 88 L 10/01/21 09:13 Intake & Output 09/30/21 10/01/21 10/01/21 18:59 06:59 18:59 Intake Total 170 1220 1150 Output Total 300 Balance 170 1220 850 Weight 132.903 kg 133.5 kg Intake: IV 170 10 500 Invasive Line 2 20 10 Intake, IV Titration 600 Amount Sodium Chloride 0.9% 500 500 ml 500 ml @ 999 mls/hr IV .Q31M ONE Rx#:[id number] ceFAZolin 1,000 mg In 100 Sodium Chloride 0.9% 50 ml @ 100 mls/hr IVPB Q12HR [facility] Rx#:[id number] Blood Product 610 Rc As-1 Unit 310 [id number] Hemodialysis 650 Output: Hemodialysis 300 Other: Voiding Method Bedside Commode Bedpan # Voids 0 - Exam Head normocephalic Neck supple Lungs diminished bilaterally with crackles Heart regular rate and rhythm S1-S2, no rub or gallop Abdomen is soft nontender nondistended positive bowel sounds no hepatosplenomegaly Extremities +2 lower extremity edema. +2 upper extremity edema Neuro alert and orientated to 3 - Labs CBC & Chem 7: 10/01/21 08:41 10/01/21 03:43 Labs: Abnormal Lab Results - Last 24 Hours (Table) 09/28/21 09/30/21 09/30/21 Range/Units 21:20 11:43 12:05 WBC (3.8-10.6) k/uL RBC (4.30-5.90) m/uL Hgb (13.0-17.5) gm/dL Hct (39.0-53.0) % MCHC (31.0-37.0) g/dL RDW (11.5-15.5) % Lymphocytes # (1.0-4.8) k/uL Sodium (137-145) mmol/L Chloride (98-107) mmol/L Carbon Dioxide (22-30) mmol/L BUN (9-20) mg/dL Creatinine (0.66-1.25) mg/dL POC Glucose (mg/dL) 63 L 170 H (75-99) mg/dL Albumin (3.5-5.0) g/dL Crossmatch See Detail 09/30/21 09/30/21 09/30/21 Range/Units 14:44 15:47 16:22 WBC (3.8-10.6) k/uL RBC 2.14 L (4.30-5.90) m/uL Hgb 5.9 L* (13.0-17.5) gm/dL Hct 20.0 L (39.0-53.0) % MCHC 29.4 L (31.0-37.0) g/dL RDW 18.3 H (11.5-15.5) % Lymphocytes # 0.8 L (1.0-4.8) k/uL Sodium (137-145) mmol/L Chloride (98-107) mmol/L Carbon Dioxide (22-30) mmol/L BUN (9-20) mg/dL Creatinine (0.66-1.25) mg/dL POC Glucose (mg/dL) 108 H 103 H (75-99) mg/dL Albumin (3.5-5.0) g/dL Crossmatch 09/30/21 10/01/21 10/01/21 Range/Units 20:06 01:48 03:43 WBC (3.8-10.6) k/uL RBC (4.30-5.90) m/uL Hgb (13.0-17.5) gm/dL Hct (39.0-53.0) % MCHC (31.0-37.0) g/dL RDW (11.5-15.5) % Lymphocytes # (1.0-4.8) k/uL Sodium 130 L (137-145) mmol/L Chloride 96 L (98-107) mmol/L Carbon Dioxide 21 L (22-30) mmol/L BUN 118 H* (9-20) mg/dL Creatinine 5.01 H (0.66-1.25) mg/dL POC Glucose (mg/dL) 101 H 103 H (75-99) mg/dL Albumin 3.2 L (3.5-5.0) g/dL Crossmatch 10/01/21 10/01/21 10/01/21 Range/Units 03:43 06:16 08:41 WBC 10.8 H (3.8-10.6) k/uL RBC 2.49 L 2.45 L (4.30-5.90) m/uL Hgb 7.1 L 6.8 L* (13.0-17.5) gm/dL Hct 23.3 L 22.9 L (39.0-53.0) % MCHC 30.4 L 29.7 L (31.0-37.0) g/dL RDW 17.4 H 17.3 H (11.5-15.5) % Lymphocytes # (1.0-4.8) k/uL Sodium (137-145) mmol/L Chloride (98-107) mmol/L Carbon Dioxide (22-30) mmol/L BUN (9-20) mg/dL Creatinine (0.66-1.25) mg/dL POC Glucose (mg/dL) 106 H (75-99) mg/dL Albumin (3.5-5.0) g/dL Crossmatch Microbiology - Last 24 Hours (Table) 09/28/21 19:30 Blood Culture - Preliminary Blood No Growth after 48 hours 09/28/21 19:15 Blood Culture - Preliminary Blood No Growth after 48 hours Assessment and Plan Assessment: 1. Increased edema and dyspnea secondary to acute kidney injury. Nephrology services have been consulted, patient underwent dialysis catheter placement and is having a dialysis session this morning 2. Hypotension. Maintained on Midirone 3. Hyponatremia. Nephrology services following 4. Ischemic cardiomyopathy status post pacemaker placement 5. Metabolic acidosis associated with acute kidney injury 6. Diabetes mellitus type 2 7. Hypothyroidism 8. 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 GI prophylaxis Protonix Nephrology and vascular surgery consulted Plans for hemodialysis catheter placement today 09/30/2021 Repeat labs ordered
[2021-10-01 11:17] LABS: Glucose,Whole Blood 104 mg/dL (75-99)
--- NOTE | 2021-10-01 12:27 | P.PN ---
Subjective Patient is a 76-year-old male with history of type 2 diabetes, CHF, COPD. He presented to the hospital with complaints of increased shortness of breath and increased weakness. Patient states he has gained about 14 pounds over the last 6 weeks or so. BUN was 150 and serum creatinine at 5 mg/dL on admission. Patient remains hypotensive. He is also volume overloaded. No evidence of obstruction noted on imaging studies. UA is completely benign. Continue off persistent volume overload and significantly elevated BUN/creatinine creatinine patient was started on dialysis yesterday. He remains hypotensive currently maintained on midodrine. Patient has received a couple of fluid boluses to which he responded fairly well. Myoglobin dropped to 5.9 g/dL yesterday. Patient received packed RBCs transfusion. This morning he did go for EGD which showed evidence of AVM and he had cauterization. Urine output remains minimal Objective - Vital Signs Vital signs: Vital Signs Temp 96.8 F L 10/01/21 09:42 Pulse 83 10/01/21 10:00 Resp 18 10/01/21 10:00 BP 91/56 10/01/21 10:00 Pulse Ox 92 L 10/01/21 10:00 Intake & Output 09/30/21 10/01/21 10/01/21 18:59 06:59 18:59 Intake Total 170 1220 1150 Output Total 300 Balance 170 1220 850 Weight 132.903 kg 133.5 kg Intake: IV 170 10 500 Invasive Line 2 20 10 Intake, IV Titration 600 Amount Sodium Chloride 0.9% 500 500 ml 500 ml @ 999 mls/hr IV .Q31M ONE Rx#:[id number] ceFAZolin 1,000 mg In 100 Sodium Chloride 0.9% 50 ml @ 100 mls/hr IVPB Q12HR [facility] Rx#:[id number] Blood Product 610 Rc As-1 Unit 310 [id number] Hemodialysis 650 Output: Hemodialysis 300 Other: Voiding Method Bedside Commode Bedpan # Voids 0 - Exam Patient is awake comfortable. Not in any acute distress. Sleepy Examination of the heart S1 and S2 Examination lungs bilateral breath sounds are heard Abdomen is soft obese nontender Examination lower extremity shows chronic edema chronic skin changes about 3+ bilaterally [employer] exam grossly intact - Labs CBC & Chem 7: 10/01/21 08:41 10/01/21 03:43 Labs: Abnormal Lab Results - Last 24 Hours (Table) 09/28/21 09/30/21 09/30/21 Range/Units 21:20 14:44 15:47 WBC (3.8-10.6) k/uL RBC (4.30-5.90) m/uL Hgb (13.0-17.5) gm/dL Hct (39.0-53.0) % MCHC (31.0-37.0) g/dL RDW (11.5-15.5) % Lymphocytes # (1.0-4.8) k/uL Sodium (137-145) mmol/L Chloride (98-107) mmol/L Carbon Dioxide (22-30) mmol/L BUN (9-20) mg/dL Creatinine (0.66-1.25) mg/dL POC Glucose (mg/dL) 108 H 103 H (75-99) mg/dL Albumin (3.5-5.0) g/dL Crossmatch See Detail 09/30/21 09/30/21 10/01/21 Range/Units 16:22 20:06 01:48 WBC (3.8-10.6) k/uL RBC 2.14 L (4.30-5.90) m/uL Hgb 5.9 L* (13.0-17.5) gm/dL Hct 20.0 L (39.0-53.0) % MCHC 29.4 L (31.0-37.0) g/dL RDW 18.3 H (11.5-15.5) % Lymphocytes # 0.8 L (1.0-4.8) k/uL Sodium (137-145) mmol/L Chloride (98-107) mmol/L Carbon Dioxide (22-30) mmol/L BUN (9-20) mg/dL Creatinine (0.66-1.25) mg/dL POC Glucose (mg/dL) 101 H 103 H (75-99) mg/dL Albumin (3.5-5.0) g/dL Crossmatch 10/01/21 10/01/21 10/01/21 Range/Units 03:43 03:43 06:16 WBC (3.8-10.6) k/uL RBC 2.49 L (4.30-5.90) m/uL Hgb 7.1 L (13.0-17.5) gm/dL Hct 23.3 L (39.0-53.0) % MCHC 30.4 L (31.0-37.0) g/dL RDW 17.4 H (11.5-15.5) % Lymphocytes # (1.0-4.8) k/uL Sodium 130 L (137-145) mmol/L Chloride 96 L (98-107) mmol/L Carbon Dioxide 21 L (22-30) mmol/L BUN 118 H* (9-20) mg/dL Creatinine 5.01 H (0.66-1.25) mg/dL POC Glucose (mg/dL) 106 H (75-99) mg/dL Albumin 3.2 L (3.5-5.0) g/dL Crossmatch 10/01/21 10/01/21 Range/Units 08:41 11:15 WBC 10.8 H (3.8-10.6) k/uL RBC 2.45 L (4.30-5.90) m/uL Hgb 6.8 L* (13.0-17.5) gm/dL Hct 22.9 L (39.0-53.0) % MCHC 29.7 L (31.0-37.0) g/dL RDW 17.3 H (11.5-15.5) % Lymphocytes # (1.0-4.8) k/uL Sodium (137-145) mmol/L Chloride (98-107) mmol/L Carbon Dioxide (22-30) mmol/L BUN (9-20) mg/dL Creatinine (0.66-1.25) mg/dL POC Glucose (mg/dL) 104 H (75-99) mg/dL Albumin (3.5-5.0) g/dL Crossmatch Microbiology - Last 24 Hours (Table) 09/28/21 19:30 Blood Culture - Preliminary Blood No Growth after 48 hours 09/28/21 19:15 Blood Culture - Preliminary Blood No Growth after 48 hours Assessment and Plan Assessment: 1. Acute kidney injury mostly ATN, nonoliguric, associated with low blood pressure. Most likely cardiorenal as well. No evidence of obstruction. UA is completely bland. Heart and on hemodialysis on 09/30/2021 due to some degree of uremia and significantly elevated BUN/creatinine with poor urine output. 2. Hypotension, possibly cardiac. EF noted to be 40-45% on echocardiogram done in July 2021 3. Hypo-natremia, hypervolemic. Repeat labs. I will also check random cortisol given the hypotension 4. Metabolic acidosis associated with acute kidney injury. Add oral sodium bicarb and repeat labs 5. Anemia, no active bleeding noted. Significant iron deficiency noted 6. Cardiomyopathy with EF 40-45%. Echo shows EF about 50-55%. 7. Type 2 diabetes Plan: Maintain midodrine 2. Hemodialysis today Continue sodium bicarb Continue IV iron Add Aranesp after tomorrow's dose of IV iron
--- NOTE | 2021-10-01 13:14 | P.PN ---
Subjective Progress Note Date: 10/01/21 This patient is a 76-year-old gentleman with a history of permanent atrial fibrillation, sick sinus syndrome, status post permanent pacemaker, hypertension, diabetes, sleep apnea, and COPD who presented to the hospital with increasing weight gain and shortness of breath of 3 weeks duration. Patient was found to be in renal failure with a creatinine of 5, low sodium and elevated BUN. Patient also complains of nausea and vomiting. Patient was found to be hypotensive. We have been consulted see the patient for hypotension. 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 Which was cauterized by Dr. Das. Continue to hold Eliquis until cleared to restart by surgery. Patient continues to be hypotensive and has been started on midodrine. Patient was also found to have a low hemoglobin of 7.1 and received 1 unit of blood yesterday. Hemoglobin today is 6.8. Patient has been started on hemodialysis, he received his first treatment of dialysis yesterday. Patient will be receiving dialysis today. Patient does not make urine. Objective - Vital Signs Vital signs: Vital Signs Temp 97.3 F L 10/01/21 12:30 Pulse 88 10/01/21 12:30 Resp 18 10/01/21 12:30 BP 89/56 10/01/21 12:30 Pulse Ox 94 L 10/01/21 12:30 Intake & Output 09/30/21 10/01/21 10/01/21 18:59 06:59 18:59 Intake Total 170 1220 1610 Output Total 300 Balance 170 1220 1310 Weight 132.903 kg 133.5 kg Intake: IV 170 10 500 Invasive Line 2 20 10 Intake, IV Titration 600 Amount Sodium Chloride 0.9% 500 500 ml 500 ml @ 999 mls/hr IV .Q31M ONE Rx#:[id number] ceFAZolin 1,000 mg In 100 Sodium Chloride 0.9% 50 ml @ 100 mls/hr IVPB Q12HR [facility] Rx#:[id number] Oral 460 Blood Product 610 Rc As-1 Unit 310 [id number] Hemodialysis 650 Output: Hemodialysis 300 Other: Voiding Method Bedside Commode Bedpan # Voids 0 - Exam PHYSICAL EXAM: VITAL SIGNS: Reviewed. GENERAL: Well-developed in no acute distress. HEENT: Head is normocephalic. Pupils are equal, round. Sclerae anicteric. Mucous membranes of the mouth are moist. NECK: Supple. No JVD or thyromegaly RESPIRATORY: Respirations even and unlabored. Lungs diminished to auscultation bilaterally at the bases. No crackles or rhonchi CARDIO: Regular rate and rhythm. S1 and S2 heard. No murmur or gallops. EXTREMITIES: Normal range of motion. No clubbing or cyanosis. Peripheral pulses intact. bilateral lower extremity edema NEURO: Orientated to person, time, mood is appropriate - Labs CBC & Chem 7: 10/01/21 08:41 10/01/21 03:43 Labs: Abnormal Lab Results - Last 24 Hours (Table) 09/28/21 09/30/21 09/30/21 Range/Units 21:20 14:44 15:47 WBC (3.8-10.6) k/uL RBC (4.30-5.90) m/uL Hgb (13.0-17.5) gm/dL Hct (39.0-53.0) % MCHC (31.0-37.0) g/dL RDW (11.5-15.5) % Lymphocytes # (1.0-4.8) k/uL Sodium (137-145) mmol/L Chloride (98-107) mmol/L Carbon Dioxide (22-30) mmol/L BUN (9-20) mg/dL Creatinine (0.66-1.25) mg/dL POC Glucose (mg/dL) 108 H 103 H (75-99) mg/dL Albumin (3.5-5.0) g/dL Crossmatch See Detail 09/30/21 09/30/21 10/01/21 Range/Units 16:22 20:06 01:48 WBC (3.8-10.6) k/uL RBC 2.14 L (4.30-5.90) m/uL Hgb 5.9 L* (13.0-17.5) gm/dL Hct 20.0 L (39.0-53.0) % MCHC 29.4 L (31.0-37.0) g/dL RDW 18.3 H (11.5-15.5) % Lymphocytes # 0.8 L (1.0-4.8) k/uL Sodium (137-145) mmol/L Chloride (98-107) mmol/L Carbon Dioxide (22-30) mmol/L BUN (9-20) mg/dL Creatinine (0.66-1.25) mg/dL POC Glucose (mg/dL) 101 H 103 H (75-99) mg/dL Albumin (3.5-5.0) g/dL Crossmatch 10/01/21 10/01/21 10/01/21 Range/Units 03:43 03:43 06:16 WBC (3.8-10.6) k/uL RBC 2.49 L (4.30-5.90) m/uL Hgb 7.1 L (13.0-17.5) gm/dL Hct 23.3 L (39.0-53.0) % MCHC 30.4 L (31.0-37.0) g/dL RDW 17.4 H (11.5-15.5) % Lymphocytes # (1.0-4.8) k/uL Sodium 130 L (137-145) mmol/L Chloride 96 L (98-107) mmol/L Carbon Dioxide 21 L (22-30) mmol/L BUN 118 H* (9-20) mg/dL Creatinine 5.01 H (0.66-1.25) mg/dL POC Glucose (mg/dL) 106 H (75-99) mg/dL Albumin 3.2 L (3.5-5.0) g/dL Crossmatch 10/01/21 10/01/21 Range/Units 08:41 11:15 WBC 10.8 H (3.8-10.6) k/uL RBC 2.45 L (4.30-5.90) m/uL Hgb 6.8 L* (13.0-17.5) gm/dL Hct 22.9 L (39.0-53.0) % MCHC 29.7 L (31.0-37.0) g/dL RDW 17.3 H (11.5-15.5) % Lymphocytes # (1.0-4.8) k/uL Sodium (137-145) mmol/L Chloride (98-107) mmol/L Carbon Dioxide (22-30) mmol/L BUN (9-20) mg/dL Creatinine (0.66-1.25) mg/dL POC Glucose (mg/dL) 104 H (75-99) mg/dL Albumin (3.5-5.0) g/dL Crossmatch Microbiology - Last 24 Hours (Table) 09/28/21 19:30 Blood Culture - Preliminary Blood No Growth after 48 hours 09/28/21 19:15 Blood Culture - Preliminary Blood No Growth after 48 hours Assessment and Plan Assessment: Permanent atrial fibrillation Hypotension 6 sinus syndrome status post permanent pacemaker Acute renal failure with fluid overload acute onset heart failure, diastolic, secondary to renal failure Plan: Continue with midodrine Continue to hold Eliquis until cleared by surgery Continue with all other current cardiac medications Further recommendations based on clinical course The above impression and plan of care have been discussed and directed by the signing physician. Yeimi Mantilla, nurse practitioner, acting as scribe for signing physician.
[2021-10-01] MEDS: SODIUM BICARBONATE TAB 650 MG TAB PO SCH ×2 (15:11→20:31)
[2021-10-01] MEDS: allopurinoL 300 MG TAB PO SCH (15:11)
[2021-10-01] MEDS: MULTIVITAMINS, THERA 1 EACH TAB PO SCH (15:11)
[2021-10-01] MEDS: ATORVASTATIN 10 MG TAB PO SCH (15:12)
[2021-10-01] MEDS: DOCUSATE 100 MG CAP PO SCH ×2 (15:12→20:31)
[2021-10-01] MEDS: SUCRALFATE 1 GM TAB PO SCH (15:12)
[2021-10-01] MEDS: IPRATROPIUM-ALBUTEROL 3 ML NEB INHALATION PRN ×2 (15:26→20:30)
[2021-10-01] MEDS ORDERED: HYDROCORTISONE SUCCINATE 100 MG/2 ML VIAL IV STA (16:31)
[2021-10-01 16:54] LABS: Glucose,Whole Blood 207 mg/dL (75-99)
[2021-10-01 20:14] LABS: Glucose,Whole Blood 245 mg/dL (75-99)
[2021-10-01] MEDS: BUDESONIDE 0.5 MG/2 ML NEBU INHALATION PRN (20:30)
--- NOTE | 2021-10-01 21:56 | P.PN ---
Subjective Progress Note Date: 10/01/21 Principal diagnosis: Leukocytosis and question of cellulitis Patient is a 76-year-old male presented to hospital with decreasing shortness of breath in this patient noticed to have evidence of renal failure and fluid overload with some swelling to lower extremities and mildly elevated white count and question of lower extremity cellulitis. Patient is status post dialysis catheter placement and was started on dialysis 09/30/2021. On today's evaluation that is 10/01/2021, patient denies having any fever or chills, the patient is breathing more comfortably, denies having any chest pain no cough no nausea noted no abdominal pain and no pain to the lower extremity Objective - Vital Signs Vital signs: Vital Signs Temp 98.2 F 10/01/21 15:30 Pulse 83 10/01/21 15:36 Resp 18 10/01/21 15:30 BP 82/52 10/01/21 15:30 Pulse Ox 88 L 10/01/21 15:32 Intake & Output 09/30/21 10/01/21 10/01/21 18:59 06:59 18:59 Intake Total 170 1220 1610 Output Total 300 Balance 170 1220 1310 Weight 132.903 kg 133.5 kg Intake: IV 170 10 500 Invasive Line 2 20 10 Intake, IV Titration 600 Amount Sodium Chloride 0.9% 500 500 ml 500 ml @ 999 mls/hr IV .Q31M ONE Rx#:[id number] ceFAZolin 1,000 mg In 100 Sodium Chloride 0.9% 50 ml @ 100 mls/hr IVPB Q12HR [facility] Rx#:[id number] Oral 460 Blood Product 610 Rc As-1 Unit 310 [id number] Hemodialysis 650 Output: Hemodialysis 300 Other: Voiding Method Bedside Commode Bedpan # Voids 0 - Exam GENERAL DESCRIPTION: An elderly male lying in bed in no distress RESPIRATORY SYSTEM: Unlabored breathing , decreased breath sounds at bases HEART: S1 S2 regular rate and rhythm , ABDOMEN: Soft , no tenderness EXTREMITIES: Diffuse swelling to his lower extremity and some chronic changes - Labs CBC & Chem 7: 10/01/21 08:41 10/01/21 03:43 Labs: Abnormal Lab Results - Last 24 Hours (Table) 09/28/21 09/30/21 09/30/21 Range/Units 21:20 16:22 20:06 WBC (3.8-10.6) k/uL RBC 2.14 L (4.30-5.90) m/uL Hgb 5.9 L* (13.0-17.5) gm/dL Hct 20.0 L (39.0-53.0) % MCHC 29.4 L (31.0-37.0) g/dL RDW 18.3 H (11.5-15.5) % Lymphocytes # 0.8 L (1.0-4.8) k/uL Sodium (137-145) mmol/L Chloride (98-107) mmol/L Carbon Dioxide (22-30) mmol/L BUN (9-20) mg/dL Creatinine (0.66-1.25) mg/dL POC Glucose (mg/dL) 101 H (75-99) mg/dL Albumin (3.5-5.0) g/dL Crossmatch See Detail 10/01/21 10/01/21 10/01/21 Range/Units 01:48 03:43 03:43 WBC (3.8-10.6) k/uL RBC 2.49 L (4.30-5.90) m/uL Hgb 7.1 L (13.0-17.5) gm/dL Hct 23.3 L (39.0-53.0) % MCHC 30.4 L (31.0-37.0) g/dL RDW 17.4 H (11.5-15.5) % Lymphocytes # (1.0-4.8) k/uL Sodium 130 L (137-145) mmol/L Chloride 96 L (98-107) mmol/L Carbon Dioxide 21 L (22-30) mmol/L BUN 118 H* (9-20) mg/dL Creatinine 5.01 H (0.66-1.25) mg/dL POC Glucose (mg/dL) 103 H (75-99) mg/dL Albumin 3.2 L (3.5-5.0) g/dL Crossmatch 10/01/21 10/01/21 10/01/21 Range/Units 06:16 08:41 11:15 WBC 10.8 H (3.8-10.6) k/uL RBC 2.45 L (4.30-5.90) m/uL Hgb 6.8 L* (13.0-17.5) gm/dL Hct 22.9 L (39.0-53.0) % MCHC 29.7 L (31.0-37.0) g/dL RDW 17.3 H (11.5-15.5) % Lymphocytes # (1.0-4.8) k/uL Sodium (137-145) mmol/L Chloride (98-107) mmol/L Carbon Dioxide (22-30) mmol/L BUN (9-20) mg/dL Creatinine (0.66-1.25) mg/dL POC Glucose (mg/dL) 106 H 104 H (75-99) mg/dL Albumin (3.5-5.0) g/dL Crossmatch Microbiology - Last 24 Hours (Table) 09/28/21 19:30 Blood Culture - Preliminary Blood No Growth after 48 hours 09/28/21 19:15 Blood Culture - Preliminary Blood No Growth after 48 hours Assessment and Plan (1) Leukocytosis Current Visit: Yes Status: Acute Code(s): D72.829 - ELEVATED WHITE BLOOD CELL COUNT, UNSPECIFIED SNOMED Code(s): 326582979 (2) Swelling of lower extremity Current Visit: Yes Status: Acute Code(s): M79.89 - OTHER SPECIFIED SOFT TISSUE DISORDERS SNOMED Code(s): 542713467 Plan: 1patient presented to hospital with increasing shortness of breath and did have evidence of lower extremity edema but no definite cellulitis was noticed, and more likely related to his underlying renal failure or the patient will be dialyzed today. 2mild elevated white count possibly reactive which has subsequently normalized. 3antibiotics can be safely discontinued Time with Patient: Less than 30
[2021-10-02 03:26] LABS: Glucose,Whole Blood 293 mg/dL (75-99)
[2021-10-02 06:26] LABS: Glucose,Whole Blood 259 mg/dL (75-99)
[2021-10-02] MEDS: SUCRALFATE 1 GM TAB PO SCH ×2 (06:38→18:13)
[2021-10-02] MEDS: LEVOTHYROXINE 50 MCG TAB PO SCH (06:38)
[2021-10-02] MEDS: METOPROLOL TARTRATE 25 MG TAB PO SCH (07:33)
[2021-10-02] MEDS: DOCUSATE 100 MG CAP PO SCH ×2 (07:41→20:35)
[2021-10-02] MEDS: MULTIVITAMINS, THERA 1 EACH TAB PO SCH (07:41)
[2021-10-02] MEDS: PANTOPRAZOLE 40 MG/10 ML VIAL IVP SCH ×2 (07:41→20:35)
[2021-10-02] MEDS: allopurinoL 300 MG TAB PO SCH (07:41)
[2021-10-02] MEDS: MIDODRINE 5 MG TAB PO SCH ×4 (07:41→20:35)
[2021-10-02] MEDS: ATORVASTATIN 10 MG TAB PO SCH (07:41)
[2021-10-02 07:50] LABS: Anisocytosis Slight; HCT 22.3 % (39.0-53.0); Hypochromasia Marked; MCH 28.4 pg (25.0-35.0); MCHC 30.1 g/dL (31.0-37.0); MCV 94.3 fL (80.0-100.0); Mean Platelet Volume 9.6; Platelet Count 194 k/uL (150-450); Poikilocytosis Marked; RBC 2.36 m/uL (4.30-5.90); RDW 17.8 % (11.5-15.5)
[2021-10-02] MEDS ORDERED: SODIUM CHLORIDE 0.9% 500 ML 500 ML IV ONE (07:56)
[2021-10-02 08:00] LABS: HGB 6.7 gm/dL (13.0-17.5)
[2021-10-02] MEDS: BUDESONIDE 0.5 MG/2 ML NEBU INHALATION PRN (08:00)
[2021-10-02] MEDS: ALBUTEROL NEBULIZED 2.5 MG/3 ML INHALATION PRN (08:00)
[2021-10-02 08:04] LABS: Calcium 8.5 mg/dL (8.4-10.2); Potassium 4.4 mmol/L (3.5-5.1); Total Bilirubin 0.8 mg/dL (0.2-1.3)
[2021-10-02 09:00] LABS: Band Neutrophils % 1 %; Lymphocytes # (M) 0.69 k/uL (1.0-4.8); Metamyelocytes % 1 %; Myelocytes % 1 %; Neutrophils % (M) 85 %; Nucleated Red Blood Cells 1 /100 WBC (0-0); Total Cells Counted 200
[2021-10-02] MEDS ORDERED: ERGOCALCIFEROL 1,250 MCG (50,000 IU) CAPSULE PO SCH (09:00)
[2021-10-02 09:01] LABS: Monocytes # (M) 0.78 k/uL (0-1.0); WBC 9.8 k/uL (3.8-10.6)
[2021-10-02 09:02] LABS: Polychromasia Present
[2021-10-02] MEDS: SODIUM FERRIC GLUCONAT-SUCROSE 125 MG in SODIUM CHLORIDE 0.9% 100 ML IVPB SCH (09:20)
--- NOTE | 2021-10-02 10:58 | P.PN ---
Subjective Progress Note Date: 10/02/21 Tristian Galloway, is a 76-year-old male patient of Dr. Sampson who presented with concerns of increasing weight gain and increased shortness of breath over the past 3 weeks. Patient has a past medical history of CHF, atrial fibrillation, diabetes mellitus and COPD. Patient denies any recent acute illness. Patient denies nausea vomiting or diarrhea. Reports significant increase in lower extremity edema. Chest x-ray completed showing CHF. Ultrasound of kidneys and bladder completed showing no evidence of hydronephrosis small abdominal ascites. Lab work indicated of hyponatremia with sodium low at 126, creatinine elevated at 5.02 and bun 150. Initial lactic acid also elevated at 3.4. Repeat lactic acid 1.6. Patient also noted to be hypotensive with a blood pressure 86/52. At this time nephrology consulted. At this time patient is resting comfortably in chair. Patient is on 4 L nasal cannula. Temp 96.4, heart rate 65, respiratory rate 18 On 09/30/2021 patient is alert and oriented times he currently sitting up in chair. Plans for hemodialysis catheter placement today with possible plans of hemodialysis per nephrology services. Patient remains on 4 L nasal cannula. Patient denies chest pain. Patient denies nausea vomiting or diarrhea. Patient denies any urinary burning or frequency. On 10/01/2021 patient was seen and examined on the medical floor he is alert and oriented 3 in no apparent distress, at this time he is undergoing hemodialysis, he underwent EGD this morning with Dr. Rainey, patient had evidence of bleeding gastric AVM and this was cauterized, this morning hemoglobin is 6.8, at this time patient does not qualify for red blood cell transfusion, will monitor closely, otherwise patient is complaining of generalized pain and discomfort he denies any fever or chills no headache or dizziness no chest pain no shortness of breath no cough no nausea or vomiting no abdominal pain no diarrhea and no urinary symptoms. On 10/02/2021 patient is alert and oriented 3. Hemoglobin today 6.7. Patient did not undergo hemodialysis yesterday. No further episodes of bleeding. At this time patient denies chest pain or shortness breath. Patient denies nausea vomiting or diarrhea. Patient denies any urinary burning frequency. Objective - Vital Signs Vital signs: Vital Signs Temp 98.2 F 10/02/21 07:40 Pulse 73 10/02/21 08:30 Resp 16 10/02/21 08:00 BP 89/53 10/02/21 09:31 Pulse Ox 91 L 10/02/21 07:57 Intake & Output 10/01/21 10/02/21 10/02/21 17:59 06:59 18:59 Intake Total 510 Output Total Balance 510 Weight Intake: IV 510 Invasive Line 3 10 Sodium Chloride 0.9% 500 500 ml 500 ml @ 999 mls/hr IV .Q31M ONE Rx#:[id number] Oral Hemodialysis Output: Urine Hemodialysis Other: Voiding Method # Voids - Exam Head normocephalic Neck supple Lungs diminished bilaterally with crackles Heart regular rate and rhythm S1-S2, no rub or gallop Abdomen is soft nontender nondistended positive bowel sounds no hepatosplenom egaly Extremities +2 lower extremity edema. +2 upper extremity edema Neuro alert and orientated to 3 - Labs CBC & Chem 7: 10/02/21 07:38 10/02/21 07:38 Labs: Abnormal Lab Results - Last 24 Hours (Table) 10/01/21 10/01/21 10/01/21 Range/Units 11:15 16:50 20:13 RBC (4.30-5.90) m/uL Hgb (13.0-17.5) gm/dL Hct (39.0-53.0) % MCHC (31.0-37.0) g/dL RDW (11.5-15.5) % Neutrophils # (Manual) (1.3-7.7) k/uL Lymphocytes # (Manual) (1.0-4.8) k/uL Metamyelocytes # (Man) (0) k/uL Myelocytes # (Manual) (0) k/uL Nucleated RBCs (0-0) /100 WBC Sodium (137-145) mmol/L Carbon Dioxide (22-30) mmol/L BUN (9-20) mg/dL Creatinine (0.66-1.25) mg/dL Glucose (74-99) mg/dL POC Glucose (mg/dL) 104 H 207 H 245 H (75-99) mg/dL Total Protein (6.3-8.2) g/dL Albumin (3.5-5.0) g/dL 10/02/21 10/02/21 10/02/21 Range/Units 03:25 06:25 07:38 RBC 2.36 L (4.30-5.90) m/uL Hgb 6.7 L* (13.0-17.5) gm/dL Hct 22.3 L (39.0-53.0) % MCHC 30.1 L (31.0-37.0) g/dL RDW 17.8 H (11.5-15.5) % Neutrophils # (Manual) 8.40 H (1.3-7.7) k/uL Lymphocytes # (Manual) 0.69 L (1.0-4.8) k/uL Metamyelocytes # (Man) 0.10 H (0) k/uL Myelocytes # (Manual) 0.10 H (0) k/uL Nucleated RBCs 1 H (0-0) /100 WBC Sodium (137-145) mmol/L Carbon Dioxide (22-30) mmol/L BUN (9-20) mg/dL Creatinine (0.66-1.25) mg/dL Glucose (74-99) mg/dL POC Glucose (mg/dL) 293 H 259 H (75-99) mg/dL Total Protein (6.3-8.2) g/dL Albumin (3.5-5.0) g/dL 10/02/21 Range/Units 07:38 RBC (4.30-5.90) m/uL Hgb (13.0-17.5) gm/dL Hct (39.0-53.0) % MCHC (31.0-37.0) g/dL RDW (11.5-15.5) % Neutrophils # (Manual) (1.3-7.7) k/uL Lymphocytes # (Manual) (1.0-4.8) k/uL Metamyelocytes # (Man) (0) k/uL Myelocytes # (Manual) (0) k/uL Nucleated RBCs (0-0) /100 WBC Sodium 133 L (137-145) mmol/L Carbon Dioxide 21 L (22-30) mmol/L BUN 82 H (9-20) mg/dL Creatinine 4.47 H (0.66-1.25) mg/dL Glucose 213 H (74-99) mg/dL POC Glucose (mg/dL) (75-99) mg/dL Total Protein 6.0 L (6.3-8.2) g/dL Albumin 3.0 L (3.5-5.0) g/dL Microbiology - Last 24 Hours (Table) 09/28/21 19:30 Blood Culture - Preliminary Blood No Growth after 72 hours 09/28/21 19:15 Blood Culture - Preliminary Blood No Growth after 72 hours Assessment and Plan Assessment: 1. Increased edema and dyspnea secondary to acute kidney injury. Status post hemodialysis catheter placement and initiation of hemodialysis 2. Hypotension. Maintained on Midirone 3. Hyponatremia. Nephrology services following 4. Ischemic cardiomyopathy status post pacemaker placement 5. Metabolic acidosis associated with acute kidney injury 6. Diabetes mellitus type 2 7. Hypothyroidism 8. 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 GI prophylaxis Protonix Nephrology, cardiology, surgical, infectious disease, pulmonary and vascular surgery consulted There is post hemodialysis catheter placement in hemodialysis Repeat labs ordered
[2021-10-02 11:24] LABS: Glucose,Whole Blood 195 mg/dL (75-99)
[2021-10-02] MEDS: IPRATROPIUM-ALBUTEROL 3 ML NEB INHALATION PRN (11:30)
--- NOTE | 2021-10-02 11:52 | P.PN ---
Subjective Progress Note Date: 10/02/21 Principal diagnosis: Upper GI bleed Patient sitting up at the bedside. Hemoglobin today 6.7 from 6.8 yesterday. No bowel movement. Patient tolerating clear liquids. Appetite diminished. Objective - Vital Signs Vital signs: Vital Signs Temp 98.2 F 10/02/21 07:40 Pulse 77 10/02/21 11:30 Resp 18 10/02/21 11:30 BP 89/53 10/02/21 09:31 Pulse Ox 91 L 10/02/21 07:57 Intake & Output 10/01/21 10/02/21 10/02/21 17:59 06:59 18:59 Intake Total 510 Output Total Balance 510 Weight Intake: IV 510 Invasive Line 3 10 Sodium Chloride 0.9% 500 500 ml 500 ml @ 999 mls/hr IV .Q31M ONE Rx#:[id number] Oral Hemodialysis Output: Urine Hemodialysis Other: Voiding Method # Voids - Exam Abdomen: Soft, nontender, nondistended - Labs CBC & Chem 7: 10/02/21 07:38 10/02/21 07:38 Labs: Abnormal Lab Results - Last 24 Hours (Table) 10/01/21 10/01/21 10/01/21 Range/Units 11:15 16:50 20:13 RBC (4.30-5.90) m/uL Hgb (13.0-17.5) gm/dL Hct (39.0-53.0) % MCHC (31.0-37.0) g/dL RDW (11.5-15.5) % Neutrophils # (Manual) (1.3-7.7) k/uL Lymphocytes # (Manual) (1.0-4.8) k/uL Metamyelocytes # (Man) (0) k/uL Myelocytes # (Manual) (0) k/uL Nucleated RBCs (0-0) /100 WBC Sodium (137-145) mmol/L Carbon Dioxide (22-30) mmol/L BUN (9-20) mg/dL Creatinine (0.66-1.25) mg/dL Glucose (74-99) mg/dL POC Glucose (mg/dL) 104 H 207 H 245 H (75-99) mg/dL Total Protein (6.3-8.2) g/dL Albumin (3.5-5.0) g/dL 10/02/21 10/02/21 10/02/21 Range/Units 03:25 06:25 07:38 RBC 2.36 L (4.30-5.90) m/uL Hgb 6.7 L* (13.0-17.5) gm/dL Hct 22.3 L (39.0-53.0) % MCHC 30.1 L (31.0-37.0) g/dL RDW 17.8 H (11.5-15.5) % Neutrophils # (Manual) 8.40 H (1.3-7.7) k/uL Lymphocytes # (Manual) 0.69 L (1.0-4.8) k/uL Metamyelocytes # (Man) 0.10 H (0) k/uL Myelocytes # (Manual) 0.10 H (0) k/uL Nucleated RBCs 1 H (0-0) /100 WBC Sodium (137-145) mmol/L Carbon Dioxide (22-30) mmol/L BUN (9-20) mg/dL Creatinine (0.66-1.25) mg/dL Glucose (74-99) mg/dL POC Glucose (mg/dL) 293 H 259 H (75-99) mg/dL Total Protein (6.3-8.2) g/dL Albumin (3.5-5.0) g/dL 10/02/21 10/02/21 Range/Units 07:38 11:23 RBC (4.30-5.90) m/uL Hgb (13.0-17.5) gm/dL Hct (39.0-53.0) % MCHC (31.0-37.0) g/dL RDW (11.5-15.5) % Neutrophils # (Manual) (1.3-7.7) k/uL Lymphocytes # (Manual) (1.0-4.8) k/uL Metamyelocytes # (Man) (0) k/uL Myelocytes # (Manual) (0) k/uL Nucleated RBCs (0-0) /100 WBC Sodium 133 L (137-145) mmol/L Carbon Dioxide 21 L (22-30) mmol/L BUN 82 H (9-20) mg/dL Creatinine 4.47 H (0.66-1.25) mg/dL Glucose 213 H (74-99) mg/dL POC Glucose (mg/dL) 195 H (75-99) mg/dL Total Protein 6.0 L (6.3-8.2) g/dL Albumin 3.0 L (3.5-5.0) g/dL Microbiology - Last 24 Hours (Table) 09/28/21 19:30 Blood Culture - Preliminary Blood No Growth after 72 hours 09/28/21 19:15 Blood Culture - Preliminary Blood No Growth after 72 hours Assessment and Plan (1) Upper GI bleed Narrative/Plan: Patient doing fairly well after EGD yesterday with control of bleeding with cauterization of small bleeding AVM. Hemoglobin is stable. Gradually advance diet. Continue antiacids. Current Visit: Yes Status: Acute Code(s): K92.2 - GASTROINTESTINAL HEMORRHAGE, UNSPECIFIED SNOMED Code(s): 66284743
--- NOTE | 2021-10-02 13:13 | P.CNPUL ---
History of Present Illness Consult date: 10/02/21 Requesting physician: Catrina Lew Reason for consult: dyspnea, hypoxemia, pleural effusion, abnormal CXR/CT, obstructive sleep apnea Chief complaint: Shortness of breath, hypoxemia. History of present illness: Pulmonary consult dated 10/02/2021. 76-year-old male that was admitted to the emergency department back on October 08. He apparently came into the ER complaining of weakness. The patient has a history of congestive heart failure, diabetes, and COPD. Apparently for 3 weeks prior to admission, the patient admits to progressive and increasing shortness of breath. He also had a cough, which is mostly nonproductive. He denied any chest pain or pressure. There are no palpitations. The patient also denied any fever or chills. He denied any GI complaints such as nausea, vomiting, and diarrhea. He also denied any abdominal pain. He apparently did gain quite a bit of weight over the weeks or so prior to admission. We were only consulted last night, as the patient apparently was having significant difficulty breathing, and I placed the patient on BiPAP. He did seem to do well on BiPAP, and states that it made him feel better. Labs today include a white count of 9.8, hemoglobin 6.7, hematocrit 22.3, and platelet count of 194,000. There was mention, the patient will receive a unit of blood. In addition, sodium 133, potassium 4.4, chlorides 100, CO2 21, anion gap 12, BUN 82, and creatinine 4.47. Albumin is 3.0. Blood cultures are negative. Chest x-ray from September 30, shows a recent placement of a right jugular central venous catheter. There does appear to be a retrocardiac density, effusion, atelectasis, and/or infiltrate. Review of Systems REVIEW OF SYSTEMS: CONSTITUTIONAL: Weakness. NEUROLOGIC: [ Negative.] HEENT: [ Negative.] CARDIAC: Lower extremity edema. PULMONARY: Shortness of breath, and nonproductive cough. GI: [Negative.] : [Negative.] RHEUMATOLOGIC: [ Negative.] IMMUNOLOGIC: [ Negative.] ENDOCRINE: [Negative. ] DERMATOLOGIC: [Negative.] Past Medical History Past Medical History: Atrial Fibrillation, COPD, Diabetes Mellitus, Hyperlipidemia, Sleep Apnea/CPAP/BIPAP Additional Past Medical History / Comment(s): cardiomyopathy. arthritis. 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 VIANEY, bilateral cataract removal with lens implants Past Anesthesia/Blood Transfusion Reactions: No Reported Reaction Type of Cardiac Device: Permanent Pacemaker Device Placement Date:: 10/17/2012 Past Psychological History: Depression Smoking Status: Never smoker Past Alcohol Use History: Rare Past Drug Use History: None Reported - Past Family History Father History Unknown: Yes Additional Family Medical History / Comment(s): "hardening of the arteries" Mother History Unknown: Yes Additional Family Medical History / Comment(s): "water in the lungs" at 95 Medications and Allergies Home Medications Medication Instructions Recorded Confirmed Type Budesonide [Pulmicort] 0.5 mg INHALATION RT-BID PRN 11/20/13 09/28/21 History allopurinoL [Zyloprim] 300 mg PO DAILY 11/21/14 09/28/21 History Acetaminophen Tab [Tylenol] 325 mg PO QID PRN 07/12/16 09/28/21 History Ergocalciferol [Vitamin D2 50,000 unit PO HODGES 07/12/16 09/28/21 History (DRISDOL)] Multivitamins, Thera [Multivitamin 1 tab PO DAILY 10/03/17 09/28/21 History (formulary)] Torsemide [Demadex] 40 mg PO DAILY 10/03/17 09/28/21 History Albuterol Sulfate [Proair Hfa] 2 puff INHALATION RT-QID PRN 06/23/18 09/28/21 History Levothyroxine Sodium [Synthroid] 50 mcg PO DAILY 05/24/21 09/28/21 History Lovastatin [Altoprev] 20 mg PO DAILY 05/24/21 09/28/21 History Metoprolol Tartrate [Lopressor] 25 mg PO BID 05/24/21 09/28/21 History Docusate [Colace] 100 mg PO BID cap 06/06/21 09/28/21 Rx metOLazone [Zaroxolyn] 5 mg PO DAILY tab 06/06/21 09/28/21 Rx Ipratropium-Albuterol Nebulize 3 ml INHALATION RT-Q6H PRN 08/09/21 09/28/21 History [Duoneb 0.5 mg-3 mg/3 ml Soln] glipiZIDE [Glucotrol] 10 mg PO BID 08/09/21 09/28/21 History metFORMIN HCL [Glucophage] 1,000 mg PO BID 08/09/21 09/28/21 History Potassium Chloride [Klor-Con 20] 20 meq PO DAILY 08/15/21 09/28/21 History Apixaban [Eliquis] 5 mg PO BID 09/28/21 09/28/21 History Aspirin EC [Ecotrin Low Dose] 81 mg PO DAILY 09/28/21 09/28/21 History Magnesium Chloride [Slow-Mag] 64 mg PO DAILY 09/28/21 09/28/21 History Allergies Allergy/AdvReac Type Severity Reaction Status Date / Time No Known Allergies Allergy Verified 09/28/21 19:45 Physical Exam Osteopathic Statement: *. No significant issues noted on an osteopathic structural exam other than those noted in the History and Physical/Consult. Vitals: Vital Signs Temp Pulse Pulse Resp BP BP Pulse Ox 10/02/21 11:30 77 18 10/02/21 09:31 89/53 10/02/21 08:30 73 87/51 10/02/21 08:10 80 16 10/02/21 08:00 79 16 10/02/21 07:57 91 L 10/02/21 07:52 77/48 10/02/21 07:40 98.2 F 82 14 62/43 95 10/02/21 04:00 97.8 F 90 18 90/56 93 L 10/02/21 01:52 18 10/02/21 00:14 91 L 10/01/21 23:18 88 18 90/51 94 L 10/01/21 21:00 18 94 L 10/01/21 20:44 83 10/01/21 20:31 86 10/01/21 20:00 18 10/01/21 19:29 97.7 F 90 18 110/66 89 L 10/01/21 17:13 89 18 89 L 10/01/21 16:25 97.4 F L 84 18 91/61 99 10/01/21 15:36 83 10/01/21 15:32 88 L 10/01/21 15:30 98.2 F 86 18 82/52 87 L 10/01/21 15:27 94 10/01/21 12:30 97.3 F L 88 18 89/56 94 L Intake and Output 10/01/21 10/02/21 10/02/21 21:59 06:59 14:59 Intake Total 510 Output Total Balance 510 Intake: IV 510 Invasive Line 3 10 Sodium Chloride 0.9% 500 500 ml 500 ml @ 999 mls/hr IV .Q31M ONE Rx#:[id number] Oral Output: Urine Hemodialysis Other: Voiding Method # Voids Weight No acute distress, oriented 3. Sitting up at the bedside. Saturations are in the low 90s. Nasal cannula at 6 L. HEENT examination is grossly unremarkable. Neck supple. Full range of motion. No adenopathy thyromegaly or neck vein distention. Cardiovascular examination reveals regular rhythm rate. S1-S2 normal. No S3 or S4. No discernible murmur noted. Heart sounds are distant. Heart rate 77 bpm. Lungs reveal scattered bilateral rhonchi. Bibasilar crackles are noted. Breath sounds are equal bilaterally. There are no wheezes. Abdomen soft bowel sounds are heard. No masses or tenderness. Extremities are intact. 1+ edema is noted. No cyanosis or clubbing. Skin is without rash or lesion. Neurologic examination is brief but nonfocal. Results - Laboratory Findings CBC and BMP: 10/02/21 07:38 10/02/21 07:38 PT/INR, D-dimer PT 12.5 sec (9.0-12.0) H 09/28/21 19:32 INR 1.2 (<1.2) H 09/28/21 19:32 Abnormal lab findings: Abnormal Labs 09/28/21 09/28/21 09/28/21 19:32 19:32 19:32 WBC RBC 2.60 L Hgb 7.2 L Hct 24.6 L MCHC 29.3 L RDW 18.0 H Neutrophils # Neutrophils # (Manual) Lymphocytes # Lymphocytes # (Manual) Metamyelocytes # (Man) Myelocytes # (Manual) Nucleated RBCs PT 12.5 H INR 1.2 H Sodium 126 L Chloride 90 L Carbon Dioxide 17 L BUN 150 H* Creatinine 5.02 H Glucose POC Glucose (mg/dL) Plasma Lactic Acid Jarvis Magnesium 2.8 H Iron TIBC % Saturation Transferrin Total Protein Albumin Crossmatch 09/28/21 09/28/21 09/28/21 19:32 21:20 22:41 WBC RBC Hgb Hct MCHC RDW Neutrophils # Neutrophils # (Manual) Lymphocytes # Lymphocytes # (Manual) Metamyelocytes # (Man) Myelocytes # (Manual) Nucleated RBCs PT INR Sodium Chloride Carbon Dioxide BUN Creatinine Glucose POC Glucose (mg/dL) Plasma Lactic Acid Jarvis 4.7 H* 3.4 H* Magnesium Iron TIBC % Saturation Transferrin Total Protein Albumin Crossmatch See Detail 09/29/21 09/29/21 09/29/21 03:20 12:12 12:12 WBC 11.2 H RBC 2.50 L Hgb 7.0 L Hct 23.2 L MCHC 30.0 L RDW 18.4 H Neutrophils # 8.7 H Neutrophils # (Manual) Lymphocytes # Lymphocytes # (Manual) Metamyelocytes # (Man) Myelocytes # (Manual) Nucleated RBCs PT INR Sodium 127 L Chloride 90 L Carbon Dioxide 20 L BUN 158 H* Creatinine 5.46 H Glucose 57 L POC Glucose (mg/dL) Plasma Lactic Acid Jarvis 2.9 H* Magnesium Iron TIBC % Saturation Transferrin Total Protein Albumin Crossmatch 09/29/21 09/29/21 09/29/21 12:12 17:49 18:05 WBC RBC Hgb Hct MCHC RDW Neutrophils # Neutrophils # (Manual) Lymphocytes # Lymphocytes # (Manual) Metamyelocytes # (Man) Myelocytes # (Manual) Nucleated RBCs PT INR Sodium Chloride Carbon Dioxide BUN Creatinine Glucose POC Glucose (mg/dL) 64 L 61 L Plasma Lactic Acid Jarvis Magnesium Iron 22 L TIBC 595 H % Saturation 3.61 L Transferrin 425.0 H Total Protein Albumin Crossmatch 09/30/21 09/30/21 09/30/21 01:22 05:51 11:43 WBC RBC Hgb Hct MCHC RDW Neutrophils # Neutrophils # (Manual) Lymphocytes # Lymphocytes # (Manual) Metamyelocytes # (Man) Myelocytes # (Manual) Nucleated RBCs PT INR Sodium Chloride Carbon Dioxide BUN Creatinine Glucose POC Glucose (mg/dL) 73 L 71 L 63 L Plasma Lactic Acid Jarvis Magnesium Iron TIBC % Saturation Transferrin Total Protein Albumin Crossmatch 09/30/21 09/30/21 09/30/21 12:05 14:44 15:47 WBC RBC Hgb Hct MCHC RDW Neutrophils # Neutrophils # (Manual) Lymphocytes # Lymphocytes # (Manual) Metamyelocytes # (Man) Myelocytes # (Manual) Nucleated RBCs PT INR Sodium Chloride Carbon Dioxide BUN Creatinine Glucose POC Glucose (mg/dL) 170 H 108 H 103 H Plasma Lactic Acid Jarvis Magnesium Iron TIBC % Saturation Transferrin Total Protein Albumin Crossmatch 09/30/21 09/30/21 10/01/21 16:22 20:06 01:48 WBC RBC 2.14 L Hgb 5.9 L* Hct 20.0 L MCHC 29.4 L RDW 18.3 H Neutrophils # Neutrophils # (Manual) Lymphocytes # 0.8 L Lymphocytes # (Manual) Metamyelocytes # (Man) Myelocytes # (Manual) Nucleated RBCs PT INR Sodium Chloride Carbon Dioxide BUN Creatinine Glucose POC Glucose (mg/dL) 101 H 103 H Plasma Lactic Acid Jarvis Magnesium Iron TIBC % Saturation Transferrin Total Protein Albumin Crossmatch 10/01/21 10/01/21 10/01/21 03:43 03:43 06:16 WBC RBC 2.49 L Hgb 7.1 L Hct 23.3 L MCHC 30.4 L RDW 17.4 H Neutrophils # Neutrophils # (Manual) Lymphocytes # Lymphocytes # (Manual) Metamyelocytes # (Man) Myelocytes # (Manual) Nucleated RBCs PT INR Sodium 130 L Chloride 96 L Carbon Dioxide 21 L BUN 118 H* Creatinine 5.01 H Glucose POC Glucose (mg/dL) 106 H Plasma Lactic Acid Jarvis Magnesium Iron TIBC % Saturation Transferrin Total Protein Albumin 3.2 L Crossmatch 10/01/21 10/01/21 10/01/21 08:41 11:15 16:50 WBC 10.8 H RBC 2.45 L Hgb 6.8 L* Hct 22.9 L MCHC 29.7 L RDW 17.3 H Neutrophils # Neutrophils # (Manual) Lymphocytes # Lymphocytes # (Manual) Metamyelocytes # (Man) Myelocytes # (Manual) Nucleated RBCs PT INR Sodium Chloride Carbon Dioxide BUN Creatinine Glucose POC Glucose (mg/dL) 104 H 207 H Plasma Lactic Acid Jarvis Magnesium Iron TIBC % Saturation Transferrin Total Protein Albumin Crossmatch 10/01/21 10/02/21 10/02/21 20:13 03:25 06:25 WBC RBC Hgb Hct MCHC RDW Neutrophils # Neutrophils # (Manual) Lymphocytes # Lymphocytes # (Manual) Metamyelocytes # (Man) Myelocytes # (Manual) Nucleated RBCs PT INR Sodium Chloride Carbon Dioxide BUN Creatinine Glucose POC Glucose (mg/dL) 245 H 293 H 259 H Plasma Lactic Acid Jarvis Magnesium Iron TIBC % Saturation Transferrin Total Protein Albumin Crossmatch 10/02/21 10/02/21 10/02/21 07:38 07:38 09:59 WBC RBC 2.36 L Hgb 6.7 L* Hct 22.3 L MCHC 30.1 L RDW 17.8 H Neutrophils # Neutrophils # (Manual) 8.40 H Lymphocytes # Lymphocytes # (Manual) 0.69 L Metamyelocytes # (Man) 0.10 H Myelocytes # (Manual) 0.10 H Nucleated RBCs 1 H PT INR Sodium 133 L Chloride Carbon Dioxide 21 L BUN 82 H Creatinine 4.47 H Glucose 213 H POC Glucose (mg/dL) Plasma Lactic Acid Jarvis Magnesium Iron TIBC % Saturation Transferrin Total Protein 6.0 L Albumin 3.0 L Crossmatch See Detail 10/02/21 11:23 WBC RBC Hgb Hct MCHC RDW Neutrophils # Neutrophils # (Manual) Lymphocytes # Lymphocytes # (Manual) Metamyelocytes # (Man) Myelocytes # (Manual) Nucleated RBCs PT INR Sodium Chloride Carbon Dioxide BUN Creatinine Glucose POC Glucose (mg/dL) 195 H Plasma Lactic Acid Jarvis Magnesium Iron TIBC % Saturation Transferrin Total Protein Albumin Crossmatch - Diagnostic Findings Chest x-ray: image reviewed Assessment and Plan Assessment: Shortness of breath, secondary to fluid overload. The patient was improved on BiPAP therapy overnight. The patient was on BiPAP with settings of 15/5, and 50%. Chronic kidney disease, status post initiation of hemodialysis. Anemia, status post packed red blood cell transfusion. Anion gap metabolic acidosis, secondary to renal failure. Hypotension, improved on midodrine. History of chronic atrial fibrillation, status post pacemaker insertion. History of diabetes mellitus. History of COPD. History of hyperlipidemia. History of sleep apnea syndrome. History of gout. 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 Plan: Plan dated 10/02/2021. The patient can continue on BiPAP at nighttime, at the same settings. He didn't seem to do well last night with BiPAP. In addition, I change the updrafts 4 times a day and schedule them, and add Symbicort, 160/4.5, 2 puffs twice a day. The patient is on midodrine for low pressure support. He was started on hemodialysis. We will continue to follow make recommendations where appropriate. The patient is scheduled to get another unit of packed red blood cells. Prognosis is guarded. We will follow make recommendations where appropriate. Time with Patient: Greater than 30
--- NOTE | 2021-10-02 13:57 | PN ---
PROGRESS NOTE Tristian is a 76-year-old gentleman that is admitted to the hospital with acute renal failure and diastolic heart failure, as a result of the renal failure. An echocardiogram on this admission showed normal LV systolic function with severe tricuspid regurgitation and [id number] pulmonary hypertension. EXAM: Comfortable at rest. Heart rate is 77 beats per minute. Blood pressure is 89/50, respiratory rate 18. Chest exam reveals good air entry bilaterally. Heart exam reveals first and second heart sounds. An S4 is heard. Abdomen: Soft. Exam of extremities reveals bilateral pitting edema. Labs show a hemoglobin of 6.7, potassium is 4.4, BUN is 82, creatinine is 4.4. ASSESSMENT: 1. Acute onset diastolic heart failure secondary to acute renal failure. 2. Acute end-stage renal disease requiring dialysis. 3. Anemia requiring transfusion. 4. Hypotension. PLAN: Continue with the dialysis and continue with midodrine. MMODL / IJN: [id number] /
--- NOTE | 2021-10-02 14:41 | P.PN ---
Subjective Patient is a 76-year-old male with history of type 2 diabetes, CHF, COPD. He presented to the hospital with complaints of increased shortness of breath and increased weakness. Patient states he has gained about 14 pounds over the last 6 weeks or so. BUN was 150 and serum creatinine at 5 mg/dL on admission. Patient remains hypotensive. He is also volume overloaded. No evidence of obstruction noted on imaging studies. UA is completely benign. Due to persistent volume overload and significantly elevated BUN/creatinine creatinine patient was started on dialysis on 09/30/21 He remains hypotensive currently maintained on midodrine. Patient has received a couple of fluid boluses to which he responded fairly well. Hemoglobin dropped to 5.9 g/dL Patient received packed RBCs transfusion. Yesterday patient went for EGD which showed evidence of AVM and he had cauterization. Urine output remains minimal. Patient had hemodialysis yesterday. No UF due to low blood pressure. BUN and creatinine decreased Objective - Vital Signs Vital signs: Vital Signs Temp 96.9 F L 10/02/21 13:56 Pulse 102 H 10/02/21 13:56 Resp 18 10/02/21 13:56 BP 86/56 10/02/21 13:56 Pulse Ox 95 10/02/21 13:56 Intake & Output 10/01/21 10/02/21 10/02/21 17:59 06:59 18:59 Intake Total 970 Output Total Balance 970 Weight Intake: IV 510 Invasive Line 3 10 Sodium Chloride 0.9% 500 500 ml 500 ml @ 999 mls/hr IV .Q31M ONE Rx#:[id number] Oral 460 Blood Product 0 Rc As-1 Unit 0 [id number] Hemodialysis Output: Urine Hemodialysis Other: Voiding Method # Voids - Exam Patient is awake comfortable. Not in any acute distress. Examination of the heart S1 and S2 Examination lungs bilateral breath sounds are heard Abdomen is soft obese nontender Examination lower extremity shows chronic edema chronic skin changes about 1+ bilaterally [employer] exam grossly intact - Labs CBC & Chem 7: 10/02/21 07:38 10/02/21 07:38 Labs: Abnormal Lab Results - Last 24 Hours (Table) 10/01/21 10/01/21 10/02/21 Range/Units 16:50 20:13 03:25 RBC (4.30-5.90) m/uL Hgb (13.0-17.5) gm/dL Hct (39.0-53.0) % MCHC (31.0-37.0) g/dL RDW (11.5-15.5) % Neutrophils # (Manual) (1.3-7.7) k/uL Lymphocytes # (Manual) (1.0-4.8) k/uL Metamyelocytes # (Man) (0) k/uL Myelocytes # (Manual) (0) k/uL Nucleated RBCs (0-0) /100 WBC Sodium (137-145) mmol/L Carbon Dioxide (22-30) mmol/L BUN (9-20) mg/dL Creatinine (0.66-1.25) mg/dL Glucose (74-99) mg/dL POC Glucose (mg/dL) 207 H 245 H 293 H (75-99) mg/dL Total Protein (6.3-8.2) g/dL Albumin (3.5-5.0) g/dL Crossmatch 10/02/21 10/02/21 10/02/21 Range/Units 06:25 07:38 07:38 RBC 2.36 L (4.30-5.90) m/uL Hgb 6.7 L* (13.0-17.5) gm/dL Hct 22.3 L (39.0-53.0) % MCHC 30.1 L (31.0-37.0) g/dL RDW 17.8 H (11.5-15.5) % Neutrophils # (Manual) 8.40 H (1.3-7.7) k/uL Lymphocytes # (Manual) 0.69 L (1.0-4.8) k/uL Metamyelocytes # (Man) 0.10 H (0) k/uL Myelocytes # (Manual) 0.10 H (0) k/uL Nucleated RBCs 1 H (0-0) /100 WBC Sodium 133 L (137-145) mmol/L Carbon Dioxide 21 L (22-30) mmol/L BUN 82 H (9-20) mg/dL Creatinine 4.47 H (0.66-1.25) mg/dL Glucose 213 H (74-99) mg/dL POC Glucose (mg/dL) 259 H (75-99) mg/dL Total Protein 6.0 L (6.3-8.2) g/dL Albumin 3.0 L (3.5-5.0) g/dL Crossmatch 10/02/21 10/02/21 Range/Units 09:59 11:23 RBC (4.30-5.90) m/uL Hgb (13.0-17.5) gm/dL Hct (39.0-53.0) % MCHC (31.0-37.0) g/dL RDW (11.5-15.5) % Neutrophils # (Manual) (1.3-7.7) k/uL Lymphocytes # (Manual) (1.0-4.8) k/uL Metamyelocytes # (Man) (0) k/uL Myelocytes # (Manual) (0) k/uL Nucleated RBCs (0-0) /100 WBC Sodium (137-145) mmol/L Carbon Dioxide (22-30) mmol/L BUN (9-20) mg/dL Creatinine (0.66-1.25) mg/dL Glucose (74-99) mg/dL POC Glucose (mg/dL) 195 H (75-99) mg/dL Total Protein (6.3-8.2) g/dL Albumin (3.5-5.0) g/dL Crossmatch See Detail Microbiology - Last 24 Hours (Table) 09/28/21 19:30 Blood Culture - Preliminary Blood No Growth after 72 hours 09/28/21 19:15 Blood Culture - Preliminary Blood No Growth after 72 hours Assessment and Plan Assessment: 1. Acute kidney injury mostly ATN, nonoliguric, associated with low blood press ure. Most likely cardiorenal as well. No evidence of obstruction. UA is completely bland. Started on hemodialysis on 09/30/2021 due to some degree of uremia and significantly elevated BUN/creatinine with poor urine output. 2. Hypotension, possibly cardiac. EF noted to be 40-45% on echocardiogram done in July 2021. Cortisol level not low. Entertained on midodrine. 3. Hypo-natremia, hypervolemic. Repeat labs. I will also check random cortisol given the hypotension 4. Metabolic acidosis associated with acute kidney injury on oral sodium bicarb and repeat labs 5. Anemia, no active bleeding noted. Significant iron deficiency noted 6. Cardiomyopathy with EF 40-45%. New Echo shows EF about 50-55%. 7. Type 2 diabetes Plan: Hemodialysis in a.m. Transfuse 1 unit packed RBCs Continue with oral sodium bicarb Add Aranesp
[2021-10-02] MEDS ORDERED: DARBEPOETIN ALFA 60 MCG/0.3 ML SYRINGE SQ SCH (15:00)
[2021-10-02] MEDS: IPRATROPIUM-ALBUTEROL 3 ML NEB INHALATION SCH ×2 (15:39→20:38)
[2021-10-02 17:06] LABS: Glucose,Whole Blood 218 mg/dL (75-99)
[2021-10-02] MEDS: INSULIN ASPART (NovoLOG) 100 UNIT/ML VIAL SQ SCH ×2 (18:13→20:36)
[2021-10-02 19:58] LABS: Glucose,Whole Blood 212 mg/dL (75-99)
[2021-10-02] MEDS: SODIUM BICARBONATE TAB 650 MG TAB PO SCH (20:35)
[2021-10-02] MEDS: SYMBICORT 160-4.5 MCG INHALER INHALATION SCH (20:38)
[2021-10-03 06:21] LABS: Glucose,Whole Blood 188 mg/dL (75-99)
[2021-10-03] MEDS: LEVOTHYROXINE 50 MCG TAB PO SCH (06:25)
[2021-10-03] MEDS: INSULIN ASPART (NovoLOG) 100 UNIT/ML VIAL SQ SCH ×4 (06:25→21:16)
[2021-10-03] MEDS: SUCRALFATE 1 GM TAB PO SCH ×2 (06:25→16:28)
[2021-10-03] MEDS: DOCUSATE 100 MG CAP PO SCH ×2 (07:59→21:15)
[2021-10-03] MEDS: MULTIVITAMINS, THERA 1 EACH TAB PO SCH (07:59)
[2021-10-03] MEDS: allopurinoL 300 MG TAB PO SCH (07:59)
[2021-10-03] MEDS: PANTOPRAZOLE 40 MG/10 ML VIAL IVP SCH ×2 (07:59→21:15)
[2021-10-03] MEDS: SODIUM BICARBONATE TAB 650 MG TAB PO SCH ×2 (07:59→21:15)
[2021-10-03] MEDS: MIDODRINE 5 MG TAB PO SCH ×4 (08:00→21:15)
[2021-10-03] MEDS: ATORVASTATIN 10 MG TAB PO SCH (08:00)
[2021-10-03 08:18] LABS: Anisocytosis Slight; HCT 25.8 % (39.0-53.0); HGB 7.8 gm/dL (13.0-17.5); Hypochromasia Marked; MCH 28.8 pg (25.0-35.0); MCHC 30.1 g/dL (31.0-37.0); MCV 95.6 fL (80.0-100.0); Macrocytosis Slight; Mean Platelet Volume 9.2; Platelet Count 241 k/uL (150-450); Poikilocytosis Marked; RBC 2.69 m/uL (4.30-5.90); RDW 18.7 % (11.5-15.5); WBC 11.8 k/uL (3.8-10.6)
[2021-10-03 08:32] LABS: Albumin 3.3 g/dL (3.5-5.0); Calcium 8.9 mg/dL (8.4-10.2); Magnesium 2.4 mg/dL (1.6-2.3); Potassium 4.2 mmol/L (3.5-5.1); Total Protein 6.5 g/dL (6.3-8.2)
--- NOTE | 2021-10-03 10:14 | P.PN ---
Subjective Progress Note Date: 10/03/21 Principal diagnosis: End stage renal disease/fluid overload The patient is a 76-year-old gentleman with heart failure with preserved ejection fraction as well as into stage renal disease on dialysis was admitted to the hospital with symptoms and signs of heart failure/fluid overload. He was seen this morning. He is a somewhat poor historian. He reports no pain in the chest. On examination he does have diminished breathing sounds bilaterally and mild bilateral lower extremities edema. He was having dialysis but no fluid was removed because of the low blood pressure and systolic pressure continues to be in the 80s. He is not on any blood pressure medications. As a matter of fact is on midodrine at quite high dose. Objective - Vital Signs Vital signs: Vital Signs Temp 97.2 F L 10/03/21 07:55 Pulse 109 H 10/03/21 08:00 Resp 18 10/03/21 08:00 BP 76/48 10/03/21 07:55 Pulse Ox 93 L 10/03/21 07:55 Intake & Output 10/02/21 10/03/21 10/03/21 18:59 06:59 18:59 Intake Total 1290 10 260 Balance 1290 10 260 Weight 172.8 kg Intake: IV 520 10 0.9 10 Invasive Line 3 20 Sodium Chloride 0.9% 500 500 ml 500 ml @ 999 mls/hr IV .Q31M ONE Rx#:[id number] Oral 460 260 Blood Product 310 Rc As-1 Unit 310 [id number] Other: Voiding Method Urinal Urinal # Voids 0 - Constitutional General appearance: Present: no acute distress - Respiratory Respiratory: bilateral: diminished - Cardiovascular Rhythm: regular Heart sounds: normal: S1, S2 - Labs CBC & Chem 7: 10/03/21 07:54 10/03/21 07:54 Labs: Abnormal Lab Results - Last 24 Hours (Table) 10/02/21 10/02/21 10/02/21 Range/Units 09:59 11:23 17:04 WBC (3.8-10.6) k/uL RBC (4.30-5.90) m/uL Hgb (13.0-17.5) gm/dL Hct (39.0-53.0) % MCHC (31.0-37.0) g/dL RDW (11.5-15.5) % Sodium (137-145) mmol/L BUN (9-20) mg/dL Creatinine (0.66-1.25) mg/dL Glucose (74-99) mg/dL POC Glucose (mg/dL) 195 H 218 H (75-99) mg/dL Magnesium (1.6-2.3) mg/dL Albumin (3.5-5.0) g/dL Crossmatch See Detail 10/02/21 10/03/21 10/03/21 Range/Units 19:57 06:20 07:54 WBC 11.8 H (3.8-10.6) k/uL RBC 2.69 L (4.30-5.90) m/uL Hgb 7.8 L (13.0-17.5) gm/dL Hct 25.8 L (39.0-53.0) % MCHC 30.1 L (31.0-37.0) g/dL RDW 18.7 H (11.5-15.5) % Sodium (137-145) mmol/L BUN (9-20) mg/dL Creatinine (0.66-1.25) mg/dL Glucose (74-99) mg/dL POC Glucose (mg/dL) 212 H 188 H (75-99) mg/dL Magnesium (1.6-2.3) mg/dL Albumin (3.5-5.0) g/dL Crossmatch 10/03/21 Range/Units 07:54 WBC (3.8-10.6) k/uL RBC (4.30-5.90) m/uL Hgb (13.0-17.5) gm/dL Hct (39.0-53.0) % MCHC (31.0-37.0) g/dL RDW (11.5-15.5) % Sodium 135 L (137-145) mmol/L BUN 84 H (9-20) mg/dL Creatinine 5.32 H (0.66-1.25) mg/dL Glucose 149 H (74-99) mg/dL POC Glucose (mg/dL) (75-99) mg/dL Magnesium 2.4 H (1.6-2.3) mg/dL Albumin 3.3 L (3.5-5.0) g/dL Crossmatch Microbiology - Last 24 Hours (Table) 09/28/21 19:30 Blood Culture - Preliminary Blood No Growth after 96 hours 09/28/21 19:15 Blood Culture - Preliminary Blood No Growth after 96 hours Assessment and Plan Assessment: Assessment #1 fluid overload #2 into stage renal disease on dialysis #3 hypotension Plan #1 rule out Kyle disease #2 continue midodrine to support the blood pressure #3 continue dialysis #4 continue holding any blood pressure medications #5 follow-up with the patient
[2021-10-03] MEDS: SYMBICORT 160-4.5 MCG INHALER INHALATION SCH ×2 (11:06→20:02)
[2021-10-03] MEDS: IPRATROPIUM-ALBUTEROL 3 ML NEB INHALATION SCH ×4 (11:06→20:00)
--- NOTE | 2021-10-03 11:44 | P.PN ---
<Aye Marcos - Last Filed: 10/03/21 11:26> Subjective Progress Note Date: 10/03/21 CHIEF COMPLAINT: Upper GI bleed HISTORY OF PRESENT ILLNESS: Patient is sitting up in bed. He is receiving hemodialysis. He is currently on a full liquid diet. He denies abdominal pain. Denies any nausea vomiting. Denies any bowel movements. Patient status post EGD on 10/01/2021 which demonstrated bleeding gastric AVM, retained contents, gastritis, hiatal hernia and Schatzki's ring. Afebrile. WBC is 11.8 hemoglobin has gone up from 6.7-7.8 after blood transfusion yesterday PHYSICAL EXAM: VITAL SIGNS: Reviewed. GENERAL: Well-developed in no acute distress. HEENT: No sclera icterus. Extraocular movements grossly intact. Moist buccal mucosa. Head is atraumatic, normocephalic. ABDOMEN: Soft. Nondistended. Nontender. NEUROLOGIC: Alert and oriented. Cranial nerves II through XII grossly intact. ASSESSMENT: 1. Upper GI bleed status post EGD with controlled bleeding with cauterization of small bleeding gastric AVM 2. Acute blood loss anemia secondary to GI bleed from bleeding AVM PLAN: -Continue supportive care -Continue monitor hemoglobin -Continue full liquid diet -Continue Protonix and Carafate -Continue to hold anticoagulation Physician Mortician Investigator note has been reviewed by physician. Signing provider agrees with the documented findings, assessment, and plan of care. Objective - Vital Signs Vital signs: Vital Signs Temp 97.2 F L 10/03/21 07:55 Pulse 109 H 10/03/21 08:00 Resp 18 10/03/21 08:00 BP 76/48 10/03/21 07:55 Pulse Ox 93 L 10/03/21 07:55 Intake & Output 10/02/21 10/03/21 10/03/21 18:59 06:59 18:59 Intake Total 1290 10 260 Balance 1290 10 260 Weight 172.8 kg Intake: IV 520 10 0.9 10 Invasive Line 3 20 Sodium Chloride 0.9% 500 500 ml 500 ml @ 999 mls/hr IV .Q31M ONE Rx#:[id number] Oral 460 260 Blood Product 310 Rc As-1 Unit 310 [id number] Other: Voiding Method Urinal Urinal # Voids 0 - Labs CBC & Chem 7: 10/03/21 07:54 10/03/21 07:54 Labs: Abnormal Lab Results - Last 24 Hours (Table) 10/02/21 10/02/21 10/02/21 Range/Units 09:59 17:04 19:57 WBC (3.8-10.6) k/uL RBC (4.30-5.90) m/uL Hgb (13.0-17.5) gm/dL Hct (39.0-53.0) % MCHC (31.0-37.0) g/dL RDW (11.5-15.5) % Sodium (137-145) mmol/L BUN (9-20) mg/dL Creatinine (0.66-1.25) mg/dL Glucose (74-99) mg/dL POC Glucose (mg/dL) 218 H 212 H (75-99) mg/dL Magnesium (1.6-2.3) mg/dL Albumin (3.5-5.0) g/dL Crossmatch See Detail 10/03/21 10/03/21 10/03/21 Range/Units 06:20 07:54 07:54 WBC 11.8 H (3.8-10.6) k/uL RBC 2.69 L (4.30-5.90) m/uL Hgb 7.8 L (13.0-17.5) gm/dL Hct 25.8 L (39.0-53.0) % MCHC 30.1 L (31.0-37.0) g/dL RDW 18.7 H (11.5-15.5) % Sodium 135 L (137-145) mmol/L BUN 84 H (9-20) mg/dL Creatinine 5.32 H (0.66-1.25) mg/dL Glucose 149 H (74-99) mg/dL POC Glucose (mg/dL) 188 H (75-99) mg/dL Magnesium 2.4 H (1.6-2.3) mg/dL Albumin 3.3 L (3.5-5.0) g/dL Crossmatch Microbiology - Last 24 Hours (Table) 09/28/21 19:30 Blood Culture - Preliminary Blood No Growth after 96 hours 09/28/21 19:15 Blood Culture - Preliminary Blood No Growth after 96 hours <Ole Rainey Last Filed: 10/03/21 19:29> Subjective I have personally seen and examined the patient, reviewed the BIOMEDICAL ENGINEERING DIRECTOR /PAs history, exam and MDM and agree with the assessment and plan as written. Based on total visit time, I have performed more than 50% of the visit. As above: No further bleeding. He has had flatus today. States he has not had a bowel movement since Sunday. Hemoglobin noted. Advance diet at this time. Increased stool softeners. Objective - Vital Signs Vital signs: Vital Signs Temp 97.7 F 10/03/21 15:17 Pulse 105 H 10/03/21 16:16 Resp 18 10/03/21 17:05 BP 130/56 10/03/21 15:17 Pulse Ox 91 L 10/03/21 17:05 Intake & Output 10/03/21 10/03/21 10/04/21 06:59 18:59 06:59 Intake Total 10 1090 Output Total 2700 Balance 10 -1610 Weight 172.8 kg Intake: IV 10 10 0.9 10 Invasive Line 5 10 Oral 780 Hemodialysis 300 Output: Urine 200 Hemodialysis 2500 Other: Voiding Method Urinal Urinal # Voids 0 - Labs CBC & Chem 7: 10/03/21 07:54 10/03/21 07:54 Labs: Abnormal Lab Results - Last 24 Hours (Table) 10/02/21 10/03/21 10/03/21 Range/Units 19:57 06:20 07:54 WBC 11.8 H (3.8-10.6) k/uL RBC 2.69 L (4.30-5.90) m/uL Hgb 7.8 L (13.0-17.5) gm/dL Hct 25.8 L (39.0-53.0) % MCHC 30.1 L (31.0-37.0) g/dL RDW 18.7 H (11.5-15.5) % Sodium (137-145) mmol/L BUN (9-20) mg/dL Creatinine (0.66-1.25) mg/dL Glucose (74-99) mg/dL POC Glucose (mg/dL) 212 H 188 H (75-99) mg/dL Magnesium (1.6-2.3) mg/dL Albumin (3.5-5.0) g/dL 10/03/21 10/03/21 10/03/21 Range/Units 07:54 11:46 16:16 WBC (3.8-10.6) k/uL RBC (4.30-5.90) m/uL Hgb (13.0-17.5) gm/dL Hct (39.0-53.0) % MCHC (31.0-37.0) g/dL RDW (11.5-15.5) % Sodium 135 L (137-145) mmol/L BUN 84 H (9-20) mg/dL Creatinine 5.32 H (0.66-1.25) mg/dL Glucose 149 H (74-99) mg/dL POC Glucose (mg/dL) 135 H 221 H (75-99) mg/dL Magnesium 2.4 H (1.6-2.3) mg/dL Albumin 3.3 L (3.5-5.0) g/dL Microbiology - Last 24 Hours (Table) 09/28/21 19:30 Blood Culture - Preliminary Blood No Growth after 96 hours 09/28/21 19:15 Blood Culture - Preliminary Blood No Growth after 96 hours Assessment and Plan (1) Upper GI bleed Current Visit: Yes Status: Acute Code(s): K92.2 - GASTROINTESTINAL HEMORRHAGE, UNSPECIFIED SNOMED Code(s): 43033862
[2021-10-03 11:48] LABS: Glucose,Whole Blood 135 mg/dL (75-99)
--- NOTE | 2021-10-03 11:53 | P.PN ---
Subjective Patient is seen in follow-up for acute kidney injury. Started on hemodialysis 09/30/2021. Tolerating dialysis well. No active bleeding. Hemoglobin 7.8 today. Patient states he's not voiding. Blood pressures on the lower side. On 6 L high flow cannula. Oral intake poor. Vital signs are stable. Blood pressure on the lower side. General: Awake. HEENT: On nasal cannula. LUNGS: Breath sounds decreased. HEART: Rate and Rhythm are regular. ABDOMEN: Soft, obese. EXTREMITITES: 1+ edema. Objective - Vital Signs Vital signs: Vital Signs Temp 97.2 F L 10/03/21 07:55 Pulse 109 H 10/03/21 08:00 Resp 18 10/03/21 08:00 BP 76/48 10/03/21 07:55 Pulse Ox 93 L 10/03/21 07:55 Intake & Output 10/02/21 10/03/21 10/03/21 18:59 06:59 18:59 Intake Total 1290 10 260 Balance 1290 10 260 Weight 172.8 kg Intake: IV 520 10 0.9 10 Invasive Line 3 20 Sodium Chloride 0.9% 500 500 ml 500 ml @ 999 mls/hr IV .Q31M ONE Rx#:[id number] Oral 460 260 Blood Product 310 Rc As-1 Unit 310 [id number] Other: Voiding Method Urinal Urinal # Voids 0 - Labs CBC & Chem 7: 10/03/21 07:54 10/03/21 07:54 Labs: Abnormal Lab Results - Last 24 Hours (Table) 10/02/21 10/02/21 10/02/21 Range/Units 09:59 17:04 19:57 WBC (3.8-10.6) k/uL RBC (4.30-5.90) m/uL Hgb (13.0-17.5) gm/dL Hct (39.0-53.0) % MCHC (31.0-37.0) g/dL RDW (11.5-15.5) % Sodium (137-145) mmol/L BUN (9-20) mg/dL Creatinine (0.66-1.25) mg/dL Glucose (74-99) mg/dL POC Glucose (mg/dL) 218 H 212 H (75-99) mg/dL Magnesium (1.6-2.3) mg/dL Albumin (3.5-5.0) g/dL Crossmatch See Detail 10/03/21 10/03/21 10/03/21 Range/Units 06:20 07:54 07:54 WBC 11.8 H (3.8-10.6) k/uL RBC 2.69 L (4.30-5.90) m/uL Hgb 7.8 L (13.0-17.5) gm/dL Hct 25.8 L (39.0-53.0) % MCHC 30.1 L (31.0-37.0) g/dL RDW 18.7 H (11.5-15.5) % Sodium 135 L (137-145) mmol/L BUN 84 H (9-20) mg/dL Creatinine 5.32 H (0.66-1.25) mg/dL Glucose 149 H (74-99) mg/dL POC Glucose (mg/dL) 188 H (75-99) mg/dL Magnesium 2.4 H (1.6-2.3) mg/dL Albumin 3.3 L (3.5-5.0) g/dL Crossmatch Microbiology - Last 24 Hours (Table) 09/28/21 19:30 Blood Culture - Preliminary Blood No Growth after 96 hours 09/28/21 19:15 Blood Culture - Preliminary Blood No Growth after 96 hours Assessment and Plan Plan: Assessment: 1. Acute kidney injury secondary to ATN secondary to hypotension and cardiorenal syndrome. No evidence of hydronephrosis. UA benign. Started on hemodialysis 09/30/2021 due to concern for uremia as well as oliguria. Has permacath. Baseline creatinine 1-1.2 from May 2021. 2. Acute on chronic diastolic CHF with severe tricuspid regurgitation and mild to moderate pulmonary hypertension. 3. Acute GI bleed status post EGD. Bleeding gastric AVM was noted. Hemoglobin 7.8 today. On Aranesp. Status post blood transfusion and IV iron this admission. 4. Hypotension. Cortisol level not low. On midodrine. 5. Diabetes mellitus. 6. Metabolic acidosis secondary to acute kidney injury. On oral bicarb. Better. 7. Hypervolemic hyponatremia. Improved. Plan: Currently seen while undergoing hemodialysis. Continue to monitor renal function and urine output. Monitor for renal recovery.
--- NOTE | 2021-10-03 15:42 | P.PN ---
Subjective Progress Note Date: 10/03/21 76-year-old male that was admitted to the emergency department back on October 08. He apparently came into the ER complaining of weakness. The patient has a history of congestive heart failure, diabetes, and COPD. Apparently for 3 weeks prior to admission, the patient admits to progressive and increasing shortness of breath. He also had a cough, which is mostly nonproductive. He denied any chest pain or pressure. There are no palpitations. The patient also denied any fever or chills. He denied any GI complaints such as nausea, vomiting, and diarrhea. He also denied any abdominal pain. He apparently did gain quite a bit of weight over the weeks or so prior to admission. We were only consulted last night, as the patient apparently was having significant difficulty breathing, and I placed the patient on BiPAP. He did seem to do well on BiPAP, and states that it made him feel better. Labs today include a white count of 9.8, hemoglobin 6.7, hematocrit 22.3, and platelet count of 194,000. There was mention, the patient will receive a unit of blood. In addition, sodium 133, potassium 4.4, chlorides 100, CO2 21, anion gap 12, BUN 82, and creatinine 4.47. Albumin is 3.0. Blood cultures are negative. Chest x-ray from September 30, shows a recent placement of a right jugular central venous catheter. There does appear to be a retrocardiac density, effusion, atelectasis, and/or infiltrate. On 10/03/2021, seeing the patient for a follow-up. The patient is undergoing hemodialysis and the patient is stable in terms of his respiratory status. Currently is on 6 L O2 by nasal cannula. No signs of any respiratory distress. The patient had an acute kidney injury along with multitude of other comorbidities as documented in the medical records. He is not having any cough, sputum production no chest tightness or wheezing. He is breathing comfortably at this point in time. He is currently afebrile. White cell count is at 11.8 with hemoglobin of 7.8, BUN is at 84 with a creatinine of 5.32 and a glucose of 149 and a sodium level of 135. Blood cultures of been negative. The patient had a component of an acute on chronic diastolic heart failure and he is on status is improving with hemodialysis. He was noted to be somewhat hypotensive and the patient was started on midodrine. He is on no antibiotic coverage for now. No other significant events overnight otherwise. Objective - Vital Signs Vital signs: Vital Signs Temp 97.7 F 10/03/21 15:17 Pulse 104 H 10/03/21 15:17 Resp 18 10/03/21 15:17 BP 130/56 10/03/21 15:17 Pulse Ox 93 L 10/03/21 15:17 Intake & Output 10/02/21 10/03/21 10/03/21 18:59 06:59 18:59 Intake Total 1290 10 830 Output Total 2500 Balance 1290 10 -1670 Weight 172.8 kg Intake: IV 520 10 10 0.9 10 Invasive Line 3 20 Invasive Line 5 10 Sodium Chloride 0.9% 500 500 ml 500 ml @ 999 mls/hr IV .Q31M ONE Rx#:[id number] Oral 460 520 Blood Product 310 Rc As-1 Unit 310 [id number] Hemodialysis 300 Output: Hemodialysis 2500 Other: Voiding Method Urinal Urinal # Voids 0 - Exam No acute distress, oriented 3. Sitting up at the bedside. Saturations are in the low 90s. Nasal cannula at 6 L. the patient was undergoing dialysis at time of my evaluation. Seems to be comfortable. Tolerating hemodialysis without any major difficulties. Head exam was generally normal. There was no scleral icterus or corneal arcus. Mucous membranes were moist. HEENT examination is grossly unremarkable. Neck supple. Full range of motion. No adenopathy thyromegaly or neck vein distention. Cardiovascular examination reveals regular rhythm rate. S1-S2 normal. No S3 or S4. No discernible murmur noted. Heart sounds are distant. Heart rate 77 bpm. Lungs reveal scattered bilateral rhonchi. Bibasilar crackles are noted. Breath sounds are equal bilaterally. There are no wheezes. Abdomen soft bowel sounds are heard. No masses or tenderness. Extremities are intact. 1+ edema is noted. No cyanosis or clubbing. Skin is without rash or lesion. Neurologic examination is brief but nonfocal. - Labs CBC & Chem 7: 10/03/21 07:54 10/03/21 07:54 Labs: Abnormal Lab Results - Last 24 Hours (Table) 10/02/21 10/02/21 10/02/21 Range/Units 09:59 17:04 19:57 WBC (3.8-10.6) k/uL RBC (4.30-5.90) m/uL Hgb (13.0-17.5) gm/dL Hct (39.0-53.0) % MCHC (31.0-37.0) g/dL RDW (11.5-15.5) % Sodium (137-145) mmol/L BUN (9-20) mg/dL Creatinine (0.66-1.25) mg/dL Glucose (74-99) mg/dL POC Glucose (mg/dL) 218 H 212 H (75-99) mg/dL Magnesium (1.6-2.3) mg/dL Albumin (3.5-5.0) g/dL Crossmatch See Detail 10/03/21 10/03/21 10/03/21 Range/Units 06:20 07:54 07:54 WBC 11.8 H (3.8-10.6) k/uL RBC 2.69 L (4.30-5.90) m/uL Hgb 7.8 L (13.0-17.5) gm/dL Hct 25.8 L (39.0-53.0) % MCHC 30.1 L (31.0-37.0) g/dL RDW 18.7 H (11.5-15.5) % Sodium 135 L (137-145) mmol/L BUN 84 H (9-20) mg/dL Creatinine 5.32 H (0.66-1.25) mg/dL Glucose 149 H (74-99) mg/dL POC Glucose (mg/dL) 188 H (75-99) mg/dL Magnesium 2.4 H (1.6-2.3) mg/dL Albumin 3.3 L (3.5-5.0) g/dL Crossmatch 10/03/21 Range/Units 11:46 WBC (3.8-10.6) k/uL RBC (4.30-5.90) m/uL Hgb (13.0-17.5) gm/dL Hct (39.0-53.0) % MCHC (31.0-37.0) g/dL RDW (11.5-15.5) % Sodium (137-145) mmol/L BUN (9-20) mg/dL Creatinine (0.66-1.25) mg/dL Glucose (74-99) mg/dL POC Glucose (mg/dL) 135 H (75-99) mg/dL Magnesium (1.6-2.3) mg/dL Albumin (3.5-5.0) g/dL Crossmatch Microbiology - Last 24 Hours (Table) 09/28/21 19:30 Blood Culture - Preliminary Blood No Growth after 96 hours 09/28/21 19:15 Blood Culture - Preliminary Blood No Growth after 96 hours Assessment and Plan Plan: Acute hypoxic respiratory failure with secondary Shortness of breath, secondary to fluid overload. There may be a component of acute on top of her chronic diastolic heart failure with hypoxic respiratory failure and the patient is currently off BiPAP and the patient is currently on 6 L about 2 by nasal cannula. The patient is undergoing hemodialysis. Chronic kidney disease, status post initiation of hemodialysis. Anemia, status post packed red blood cell transfusion. Anion gap metabolic acidosis, secondary to renal failure. Hypotension, improved on midodrine. History of chronic atrial fibrillation, status post pacemaker insertion. History of diabetes mellitus. History of COPD. History of hyperlipidemia. History of sleep apnea syndrome. History of gout. 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 Recent history of pulmonary embolism, currently off anticoagulation due to underlying GI bleed as the patient was receiving anticoagulation with Eliquis on outpatient basis prior to his current admission. Plan: Continue hemodialysis per nephrology+ Monitor volume status Monitor oxygenation and wean down the FiO2 as tolerated to maintain saturation above 90% The patient had an acute GI bleed and the patient underwent EGD and he was noted to have bleeding gastric AVMs. Monitor hemoglobin and crit hemoglobin is at 7.8. The patient was given IV iron. The patient is also currently off the anticoagulation. We'll may need to revisit the anticoagulation issue at a later stage. His most recent CAT scan of the chest from May 2021 showed suspicious pulmonary embolism in the left upper lobe pulmonary artery branch addition to the right lower lobe pulmonary artery branch essentially secondary to distal branches noted. Echocardiogram shows a severe concentric LVH and hypertensive heart disease with an ejection fraction of 50-55% and severe tricuspid regurgitation with dilatation of the IVC consistent with elevation of the right atrial pressure. Right ventricular systolic pressure was estimated to be around 45.
[2021-10-03 16:18] LABS: Glucose,Whole Blood 221 mg/dL (75-99)
--- NOTE | 2021-10-03 17:46 | P.PN ---
Subjective Progress Note Date: 10/03/21 Tristian Galloway, is a 76-year-old male patient of Dr. Sampson who presented with concerns of increasing weight gain and increased shortness of breath over the past 3 weeks. Patient has a past medical history of CHF, atrial fibrillation, diabetes mellitus and COPD. Patient denies any recent acute illness. Patient denies nausea vomiting or diarrhea. Reports significant increase in lower extremity edema. Chest x-ray completed showing CHF. Ultrasound of kidneys and bladder completed showing no evidence of hydronephrosis small abdominal ascites. Lab work indicated of hyponatremia with sodium low at 126, creatinine elevated at 5.02 and bun 150. Initial lactic acid also elevated at 3.4. Repeat lactic acid 1.6. Patient also noted to be hypotensive with a blood pressure 86/52. At this time nephrology consulted. At this time patient is resting comfortably in chair. Patient is on 4 L nasal cannula. Temp 96.4, heart rate 65, respiratory rate 18 On 09/30/2021 patient is alert and oriented times he currently sitting up in chair. Plans for hemodialysis catheter placement today with possible plans of hemodialysis per nephrology services. Patient remains on 4 L nasal cannula. Patient denies chest pain. Patient denies nausea vomiting or diarrhea. Patient denies any urinary burning or frequency. On 10/01/2021 patient was seen and examined on the medical floor he is alert and oriented 3 in no apparent distress, at this time he is undergoing hemodialysis, he underwent EGD this morning with Dr. Rainey, patient had evidence of bleeding gastric AVM and this was cauterized, this morning hemoglobin is 6.8, at this time patient does not qualify for red blood cell transfusion, will monitor closely, otherwise patient is complaining of generalized pain and discomfort he denies any fever or chills no headache or dizziness no chest pain no shortness of breath no cough no nausea or vomiting no abdominal pain no diarrhea and no urinary symptoms. On 10/02/2021 patient is alert and oriented 3. Hemoglobin today 6.7. Patient did not undergo hemodialysis yesterday. No further episodes of bleeding. At this time patient denies chest pain or shortness breath. Patient denies nausea vomiting or diarrhea. Patient denies any urinary burning frequency. On 10/03/2021 patient was seen and examined on the telemetry floor he is alert and oriented 3 in no apparent distress vital exam reveals a temperature of 97.7 pulse 100 respiration 18 and blood pressure 130/56 pulse ox 93% on 6 L nasal cannula patient is receiving hemodialysis he denies any chest pain or shortness of breath no cough no nausea or vomiting no abdominal pain no diarrhea and no urinary symptoms, laboratory data reveals a white blood count of 11.8 hemoglobin 7.8 platelet count 241 BUN 84 creatinine 5.3 to at this time will resume Eliquis at a decreased dose of 2.5 twice a day due to renal function, patient was on 5 mg twice daily and this was held on admission to allow for placement of dialysis catheter. Objective - Vital Signs Vital signs: Vital Signs Temp 97.7 F 10/03/21 15:17 Pulse 105 H 10/03/21 16:16 Resp 18 10/03/21 15:17 BP 130/56 10/03/21 15:17 Pulse Ox 89 L 10/03/21 16:09 Intake & Output 10/02/21 10/03/21 10/03/21 18:59 06:59 18:59 Intake Total 1290 10 830 Output Total 2500 Balance 1290 10 -1670 Weight 172.8 kg Intake: IV 520 10 10 0.9 10 Invasive Line 3 20 Invasive Line 5 10 Sodium Chloride 0.9% 500 500 ml 500 ml @ 999 mls/hr IV .Q31M ONE Rx#:[id number] Oral 460 520 Blood Product 310 Rc As-1 Unit 310 [id number] Hemodialysis 300 Output: Hemodialysis 2500 Other: Voiding Method Urinal Urinal # Voids 0 - Exam Head normocephalic Neck supple Lungs diminished bilaterally with crackles Heart regular rate and rhythm S1-S2, no rub or gallop Abdomen is soft nontender nondistended positive bowel sounds no hepatosplenomegaly Extremities +2 lower extremity edema. +2 upper extremity edema Neuro alert and orientated to 3 - Labs CBC & Chem 7: 10/03/21 07:54 10/03/21 07:54 Labs: Abnormal Lab Results - Last 24 Hours (Table) 10/02/21 10/02/21 10/03/21 Range/Units 17:04 19:57 06:20 WBC (3.8-10.6) k/uL RBC (4.30-5.90) m/uL Hgb (13.0-17.5) gm/dL Hct (39.0-53.0) % MCHC (31.0-37.0) g/dL RDW (11.5-15.5) % Sodium (137-145) mmol/L BUN (9-20) mg/dL Creatinine (0.66-1.25) mg/dL Glucose (74-99) mg/dL POC Glucose (mg/dL) 218 H 212 H 188 H (75-99) mg/dL Magnesium (1.6-2.3) mg/dL Albumin (3.5-5.0) g/dL 10/03/21 10/03/21 10/03/21 Range/Units 07:54 07:54 11:46 WBC 11.8 H (3.8-10.6) k/uL RBC 2.69 L (4.30-5.90) m/uL Hgb 7.8 L (13.0-17.5) gm/dL Hct 25.8 L (39.0-53.0) % MCHC 30.1 L (31.0-37.0) g/dL RDW 18.7 H (11.5-15.5) % Sodium 135 L (137-145) mmol/L BUN 84 H (9-20) mg/dL Creatinine 5.32 H (0.66-1.25) mg/dL Glucose 149 H (74-99) mg/dL POC Glucose (mg/dL) 135 H (75-99) mg/dL Magnesium 2.4 H (1.6-2.3) mg/dL Albumin 3.3 L (3.5-5.0) g/dL 10/03/21 Range/Units 16:16 WBC (3.8-10.6) k/uL RBC (4.30-5.90) m/uL Hgb (13.0-17.5) gm/dL Hct (39.0-53.0) % MCHC (31.0-37.0) g/dL RDW (11.5-15.5) % Sodium (137-145) mmol/L BUN (9-20) mg/dL Creatinine (0.66-1.25) mg/dL Glucose (74-99) mg/dL POC Glucose (mg/dL) 221 H (75-99) mg/dL Magnesium (1.6-2.3) mg/dL Albumin (3.5-5.0) g/dL Microbiology - Last 24 Hours (Table) 09/28/21 19:30 Blood Culture - Preliminary Blood No Growth after 96 hours 09/28/21 19:15 Blood Culture - Preliminary Blood No Growth after 96 hours Assessment and Plan Assessment: 1. Increased edema and dyspnea secondary to acute kidney injury. Status post hemodialysis catheter placement and initiation of hemodialysis 2. Hypotension. Maintained on Midirone 3. Hyponatremia. Nephrology services following 4. Ischemic cardiomyopathy status post pacemaker placement 5. Metabolic acidosis associated with acute kidney injury 6. Diabetes mellitus type 2 7. Hypothyroidism 8. 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 GI prophylaxis Protonix Nephrology, cardiology, surgical, infectious disease, pulmonary and vascular surgery consulted There is post hemodialysis catheter placement in hemodialysis Repeat labs ordered
[2021-10-03] MEDS ORDERED: MAGNESIUM HYDROXIDE 2,400 MG/10 ML CUP PO PRN (19:29)
[2021-10-03 19:57] LABS: Glucose,Whole Blood 242 mg/dL (75-99)
[2021-10-03] MEDS ORDERED: APIXABAN 2.5 MG TABLET PO SCH (21:00)
--- NOTE | 2021-10-03 22:37 | P.PN ---
Subjective Progress Note Date: 10/02/21 Principal diagnosis: Leukocytosis and question of cellulitis Patient is a 76-year-old male presented to hospital with decreasing shortness of breath in this patient noticed to have evidence of renal failure and fluid overload with some swelling to lower extremities and mildly elevated white count and question of lower extremity cellulitis. Patient is status post dialysis catheter placement and was started on dialysis 09/30/2021. On today's evaluation that is 10/02/2021, patient remains to be afebrile, the patient is breathing slightly comfortably, the patient denies having any chest pain no cough no nausea noted no abdominal pain and no pain to the lower extrem ity Objective - Vital Signs Vital signs: Vital Signs Temp 96.9 F L 10/02/21 14:36 Pulse 92 10/02/21 14:36 Resp 18 10/02/21 14:36 BP 101/64 10/02/21 14:36 Pulse Ox 92 L 10/02/21 14:36 Intake & Output 10/01/21 10/02/21 10/02/21 17:59 06:59 18:59 Intake Total 970 Output Total Balance 970 Weight Intake: IV 510 Invasive Line 3 10 Sodium Chloride 0.9% 500 500 ml 500 ml @ 999 mls/hr IV .Q31M ONE Rx#:[id number] Oral 460 Blood Product 0 Rc As-1 Unit 0 [id number] Hemodialysis Output: Urine Hemodialysis Other: Voiding Method # Voids - Exam GENERAL DESCRIPTION: An elderly male lying in bed in no distress RESPIRATORY SYSTEM: Unlabored breathing , decreased breath sounds at bases HEART: S1 S2 regular rate and rhythm , ABDOMEN: Soft , no tenderness EXTREMITIES: Diffuse swelling to his lower extremity and some chronic changes - Labs CBC & Chem 7: 10/03/21 07:54 10/03/21 07:54 Labs: Abnormal Lab Results - Last 24 Hours (Table) 10/01/21 10/01/21 10/02/21 Range/Units 16:50 20:13 03:25 RBC (4.30-5.90) m/uL Hgb (13.0-17.5) gm/dL Hct (39.0-53.0) % MCHC (31.0-37.0) g/dL RDW (11.5-15.5) % Neutrophils # (Manual) (1.3-7.7) k/uL Lymphocytes # (Manual) (1.0-4.8) k/uL Metamyelocytes # (Man) (0) k/uL Myelocytes # (Manual) (0) k/uL Nucleated RBCs (0-0) /100 WBC Sodium (137-145) mmol/L Carbon Dioxide (22-30) mmol/L BUN (9-20) mg/dL Creatinine (0.66-1.25) mg/dL Glucose (74-99) mg/dL POC Glucose (mg/dL) 207 H 245 H 293 H (75-99) mg/dL Total Protein (6.3-8.2) g/dL Albumin (3.5-5.0) g/dL Crossmatch 10/02/21 10/02/21 10/02/21 Range/Units 06:25 07:38 07:38 RBC 2.36 L (4.30-5.90) m/uL Hgb 6.7 L* (13.0-17.5) gm/dL Hct 22.3 L (39.0-53.0) % MCHC 30.1 L (31.0-37.0) g/dL RDW 17.8 H (11.5-15.5) % Neutrophils # (Manual) 8.40 H (1.3-7.7) k/uL Lymphocytes # (Manual) 0.69 L (1.0-4.8) k/uL Metamyelocytes # (Man) 0.10 H (0) k/uL Myelocytes # (Manual) 0.10 H (0) k/uL Nucleated RBCs 1 H (0-0) /100 WBC Sodium 133 L (137-145) mmol/L Carbon Dioxide 21 L (22-30) mmol/L BUN 82 H (9-20) mg/dL Creatinine 4.47 H (0.66-1.25) mg/dL Glucose 213 H (74-99) mg/dL POC Glucose (mg/dL) 259 H (75-99) mg/dL Total Protein 6.0 L (6.3-8.2) g/dL Albumin 3.0 L (3.5-5.0) g/dL Crossmatch 10/02/21 10/02/21 Range/Units 09:59 11:23 RBC (4.30-5.90) m/uL Hgb (13.0-17.5) gm/dL Hct (39.0-53.0) % MCHC (31.0-37.0) g/dL RDW (11.5-15.5) % Neutrophils # (Manual) (1.3-7.7) k/uL Lymphocytes # (Manual) (1.0-4.8) k/uL Metamyelocytes # (Man) (0) k/uL Myelocytes # (Manual) (0) k/uL Nucleated RBCs (0-0) /100 WBC Sodium (137-145) mmol/L Carbon Dioxide (22-30) mmol/L BUN (9-20) mg/dL Creatinine (0.66-1.25) mg/dL Glucose (74-99) mg/dL POC Glucose (mg/dL) 195 H (75-99) mg/dL Total Protein (6.3-8.2) g/dL Albumin (3.5-5.0) g/dL Crossmatch See Detail Microbiology - Last 24 Hours (Table) 09/28/21 19:30 Blood Culture - Preliminary Blood No Growth after 72 hours 09/28/21 19:15 Blood Culture - Preliminary Blood No Growth after 72 hours Assessment and Plan (1) Leukocytosis Current Visit: Yes Status: Acute Code(s): D72.829 - ELEVATED WHITE BLOOD CE LL COUNT, UNSPECIFIED SNOMED Code(s): 107168107 (2) Swelling of lower extremity Current Visit: Yes Status: Acute Code(s): M79.89 - OTHER SPECIFIED SOFT TISSUE DISORDERS SNOMED Code(s): 579359831 Plan: 1patient presented to hospital with increasing shortness of breath and did have evidence of lower extremity edema but no definite cellulitis was noticed, and more likely related to his underlying renal failure for the patient was started on dialysis 2mild elevated white count possibly reactive which has subsequently normalized. 3clinical suspicion low for cellulitis antibiotic has been discontinued Time with Patient: Less than 30
--- NOTE | 2021-10-03 22:39 | P.PN ---
Subjective Progress Note Date: 10/03/21 Principal diagnosis: Leukocytosis and question of cellulitis Patient is a 76-year-old male presented to hospital with decreasing shortness of breath in this patient noticed to have evidence of renal failure and fluid overload with some swelling to lower extremities and mildly elevated white count and question of lower extremity cellulitis. Patient is status post dialysis catheter placement and was started on dialysis 09/30/2021. On today's evaluation that is 10/03/2021, patient denies any fever or any chills, the patient is still complained or shortness of breath however the patient denies having any chest pain no cough no nausea noted no abdominal pain and no pain to the lower extremity Objective - Vital Signs Vital signs: Vital Signs Temp 97.7 F 10/03/21 15:17 Pulse 105 H 10/03/21 16:16 Resp 18 10/03/21 15:17 BP 130/56 10/03/21 15:17 Pulse Ox 89 L 10/03/21 16:09 Intake & Output 10/02/21 10/03/21 10/03/21 18:59 06:59 18:59 Intake Total 1290 10 830 Output Total 2500 Balance 1290 10 -1670 Weight 172.8 kg Intake: IV 520 10 10 0.9 10 Invasive Line 3 20 Invasive Line 5 10 Sodium Chloride 0.9% 500 500 ml 500 ml @ 999 mls/hr IV .Q31M ONE Rx#:[id number] Oral 460 520 Blood Product 310 Rc As-1 Unit 310 [id number] Hemodialysis 300 Output: Hemodialysis 2500 Other: Voiding Method Urinal Urinal # Voids 0 - Exam GENERAL DESCRIPTION: An elderly male lying in bed in no distress RESPIRATORY SYSTEM: Unlabored breathing , decreased breath sounds at bases HEART: S1 S2 regular rate and rhythm , ABDOMEN: Soft , no tenderness EXTREMITIES: Diffuse swelling to his lower extremity and some chronic changes - Labs CBC & Chem 7: 10/03/21 07:54 10/03/21 07:54 Labs: Abnormal Lab Results - Last 24 Hours (Table) 10/02/21 10/02/21 10/03/21 Range/Units 17:04 19:57 06:20 WBC (3.8-10.6) k/uL RBC (4.30-5.90) m/uL Hgb (13.0-17.5) gm/dL Hct (39.0-53.0) % MCHC (31.0-37.0) g/dL RDW (11.5-15.5) % Sodium (137-145) mmol/L BUN (9-20) mg/dL Creatinine (0.66-1.25) mg/dL Glucose (74-99) mg/dL POC Glucose (mg/dL) 218 H 212 H 188 H (75-99) mg/dL Magnesium (1.6-2.3) mg/dL Albumin (3.5-5.0) g/dL 10/03/21 10/03/21 10/03/21 Range/Units 07:54 07:54 11:46 WBC 11.8 H (3.8-10.6) k/uL RBC 2.69 L (4.30-5.90) m/uL Hgb 7.8 L (13.0-17.5) gm/dL Hct 25.8 L (39.0-53.0) % MCHC 30.1 L (31.0-37.0) g/dL RDW 18.7 H (11.5-15.5) % Sodium 135 L (137-145) mmol/L BUN 84 H (9-20) mg/dL Creatinine 5.32 H (0.66-1.25) mg/dL Glucose 149 H (74-99) mg/dL POC Glucose (mg/dL) 135 H (75-99) mg/dL Magnesium 2.4 H (1.6-2.3) mg/dL Albumin 3.3 L (3.5-5.0) g/dL 10/03/21 Range/Units 16:16 WBC (3.8-10.6) k/uL RBC (4.30-5.90) m/uL Hgb (13.0-17.5) gm/dL Hct (39.0-53.0) % MCHC (31.0-37.0) g/dL RDW (11.5-15.5) % Sodium (137-145) mmol/L BUN (9-20) mg/dL Creatinine (0.66-1.25) mg/dL Glucose (74-99) mg/dL POC Glucose (mg/dL) 221 H (75-99) mg/dL Magnesium (1.6-2.3) mg/dL Albumin (3.5-5.0) g/dL Microbiology - Last 24 Hours (Table) 09/28/21 19:30 Blood Culture - Preliminary Blood No Growth after 96 hours 09/28/21 19:15 Blood Culture - Preliminary Blood No Growth after 96 hours Assessment and Plan (1) Leukocytosis Current Visit: Yes Status: Acute Code(s): D72.829 - ELEVATED WHITE BLOOD CELL COUNT, UNSPECIFIED SNOMED Code(s): 717423433 (2) Swelling of lower extremity Current Visit: Yes Status: Acute Code(s): M79.89 - OTHER SPECIFIED SOFT TISSUE DISORDERS SNOMED Code(s): 839723042 Plan: 1patient presented to hospital with increasing shortness of breath and did have evidence of lower extremity edema but no definite cellulitis was noticed, and more likely related to his underlying renal failure for the patient was started on dialysis, clinically not behaving as pneumoniae that 2mild leukocytosis possibly reactive will recheck his inflammatory markers and pro calcitonin 3continue to monitor patient closely off antibiotics
[2021-10-04 06:00] LABS: Glucose,Whole Blood 172 mg/dL (75-99)
[2021-10-04] MEDS: SUCRALFATE 1 GM TAB PO SCH ×2 (06:50→17:53)
[2021-10-04] MEDS: LEVOTHYROXINE 50 MCG TAB PO SCH (06:50)
[2021-10-04] MEDS: INSULIN ASPART (NovoLOG) 100 UNIT/ML VIAL SQ SCH ×4 (06:51→20:28)
[2021-10-04] MEDS: SYMBICORT 160-4.5 MCG INHALER INHALATION SCH ×2 (07:53→19:46)
[2021-10-04] MEDS: IPRATROPIUM-ALBUTEROL 3 ML NEB INHALATION SCH ×4 (07:53→19:46)
[2021-10-04 08:15] LABS: Anisocytosis Moderate; HCT 26.3 % (39.0-53.0); HGB 7.9 gm/dL (13.0-17.5); Hypochromasia Marked; MCH 29.2 pg (25.0-35.0); MCHC 29.9 g/dL (31.0-37.0); MCV 97.6 fL (80.0-100.0); Macrocytosis Slight; Mean Platelet Volume 8.4; Platelet Count 221 k/uL (150-450); Poikilocytosis Marked; RDW 20.5 % (11.5-15.5)
[2021-10-04 08:43] LABS: Albumin 3.2 g/dL (3.5-5.0); Calcium 9.3 mg/dL (8.4-10.2); Potassium 4.4 mmol/L (3.5-5.1); Total Bilirubin 1.1 mg/dL (0.2-1.3); Total Protein 6.2 g/dL (6.3-8.2)
[2021-10-04] MEDS: allopurinoL 300 MG TAB PO SCH (08:52)
[2021-10-04] MEDS: MIDODRINE 5 MG TAB PO SCH ×3 (08:52→17:53)
[2021-10-04] MEDS: SODIUM BICARBONATE TAB 650 MG TAB PO SCH ×2 (08:52→20:28)
[2021-10-04] MEDS: ATORVASTATIN 10 MG TAB PO SCH (08:52)
[2021-10-04] MEDS: PANTOPRAZOLE 40 MG/10 ML VIAL IVP SCH ×2 (08:52→20:28)
[2021-10-04] MEDS: DOCUSATE 100 MG CAP PO SCH ×2 (08:52→20:28)
[2021-10-04] MEDS: MULTIVITAMINS, THERA 1 EACH TAB PO SCH (08:52)
[2021-10-04] MEDS ORDERED: FUROSEMIDE 10 MG/ML 10 ML VIAL IV STA (09:51)
--- NOTE | 2021-10-04 09:51 | P.PN ---
Subjective Patient is seen in follow-up for acute kidney injury. Started on hemodialysis 09/30/2021. No problems with dialysis yesterday. No active bleeding. Hemoglobin 7.9 today. Patient states he did void once yesterday. Blood pressure is on the lower side. On 5 L high flow cannula. Oral intake fair. Vital signs are stable. Blood pressure on the lower side. General: Awake and alert. HEENT: On nasal cannula. LUNGS: Breath sounds decreased. HEART: Rate and Rhythm are regular. ABDOMEN: Soft, obese. EXTREMITITES: 1+ edema. Objective - Vital Signs Vital signs: Vital Signs Temp 98.7 F 10/04/21 08:00 Pulse 100 10/04/21 08:06 Resp 18 10/04/21 08:00 BP 101/52 10/04/21 08:00 Pulse Ox 96 10/04/21 08:00 Intake & Output 10/03/21 10/04/21 10/04/21 18:59 06:59 18:59 Intake Total 1090 10 120 Output Total 2700 Balance -1610 10 120 Weight 136.2 kg Intake: IV 10 10 0.9 10 Invasive Line 5 10 Oral 780 120 Hemodialysis 300 Output: Urine 200 Hemodialysis 2500 Other: Voiding Method Urinal Urinal # Voids 0 - Labs CBC & Chem 7: 10/04/21 07:09 10/04/21 07:09 Labs: Abnormal Lab Results - Last 24 Hours (Table) 10/03/21 10/03/21 10/03/21 Range/Units 11:46 16:16 19:55 RBC (4.30-5.90) m/uL Hgb (13.0-17.5) gm/dL Hct (39.0-53.0) % MCHC (31.0-37.0) g/dL RDW (11.5-15.5) % Sodium (137-145) mmol/L Carbon Dioxide (22-30) mmol/L BUN (9-20) mg/dL Creatinine (0.66-1.25) mg/dL Glucose (74-99) mg/dL POC Glucose (mg/dL) 135 H 221 H 242 H (75-99) mg/dL C-Reactive Protein (<1.0) mg/dL Total Protein (6.3-8.2) g/dL Albumin (3.5-5.0) g/dL 10/04/21 10/04/21 10/04/21 Range/Units 05:59 07:09 07:09 RBC 2.70 L (4.30-5.90) m/uL Hgb 7.9 L (13.0-17.5) gm/dL Hct 26.3 L (39.0-53.0) % MCHC 29.9 L (31.0-37.0) g/dL RDW 20.5 H (11.5-15.5) % Sodium 136 L (137-145) mmol/L Carbon Dioxide 21 L (22-30) mmol/L BUN 58 H (9-20) mg/dL Creatinine 4.25 H (0.66-1.25) mg/dL Glucose 163 H (74-99) mg/dL POC Glucose (mg/dL) 172 H (75-99) mg/dL C-Reactive Protein 6.0 H (<1.0) mg/dL Total Protein 6.2 L (6.3-8.2) g/dL Albumin 3.2 L (3.5-5.0) g/dL Microbiology - Last 24 Hours (Table) 09/28/21 19:15 Blood Culture - Preliminary Blood No Growth after 120 hours 09/28/21 19:30 Blood Culture - Preliminary Blood No Growth after 120 hours Assessment and Plan Plan: Assessment: 1. Acute kidney injury secondary to ATN secondary to hypotension and cardiorenal syndrome. No evidence of hydronephrosis. UA benign. Started on hemodialysis 09/30/2021 due to concern for uremia as well as oliguria. Has permacath. Baseline creatinine 1-1.2 from May 2021. 2. Acute on chronic diastolic CHF with severe tricuspid regurgitation and mild to moderate pulmonary hypertension. 3. Acute GI bleed status post EGD. Bleeding gastric AVM was noted. Hemoglobin 7.9 today. On Aranesp. Status post blood transfusion and IV iron this admissi on. 4. Hypotension. Cortisol level not low. On midodrine. 5. Diabetes mellitus. 6. Metabolic acidosis secondary to acute kidney injury. On oral bicarb. 7. Hypervolemic hyponatremia. Improved. Plan: Hemodialysis tomorrow. I did discuss with the patient to do dialysis today mostly for ultrafiltration. However he wants to wait till tomorrow and refusing treatment today. Continue to monitor renal function and urine output. Monitor for renal recovery. Check phosphorus level. Lasix 80 mg IV once today.
[2021-10-04 11:17] LABS: Glucose,Whole Blood 196 mg/dL (75-99)
--- NOTE | 2021-10-04 12:46 | CDI ---
Documentation Clarification Form Date: 10/04/2021 12:04:04 PM From: Melany Schulte RN CCDS Admit Date: 09/28/2021 08:50:00 PM Patient Name: Tristian Galloway Visit Number: [id number] Discharge Date: ATTENTION: The Clinical Documentation Specialists (CDI) and [facility] Coding Staff appreciate your assistance in clarifying documentation. Please respond to the clarification below the line at the bottom and electronically sign. The CDI & [facility] Coding staff will review the response and follow-up if needed. Please note: Queries are made part of the Legal Health Record. If you have any questions, please contact the author of this message via ITS. Dr. Catrina Lew Conflicting documentation has been found in the medical record. As attending physician, please provide clarification. Acute end-stage renal disease requiring dialysis, Cardiology progress note, 10/02. Acute kidney injury mostly ATN, Nephrology Consult, 09/29 & Nephrology progress notes, 09/30 10/03. History/Risk Factors: 76-year-old male presents to the ED for increasing weight grain and increased shortness of breath. Medical history CHF, Atrial Fib, COPD and DM. 09/29, H&P. Clinical Indicators: Patients baseline/prior 05/24/2021 BUN 22; CR 1.21; GFR 22. Current 09/28: BUN 150; CR 5.02; GFR 10. Nephrology consult - Hemodialysis status: Started 09/30 due to concern of uremia as well as oliguria. Has permacath. Baseline creatinine 1-1.2 from May 2021. 09/30Dialysis Catheter insertion right Jugular approach. Treatment: Dialysis Catheter; Dialysis 09/30; 10/01 & 10/03. Please clarify which diagnosis is most appropriate: [ ] ENRRIQUE [ x ] ENRRIQUE on CKD please specify stage [ ] ESRD [ ] Other (please specify) [ ] Unable to determine (Template Last Revised: September 2020) MTDD
[2021-10-04 12:55] LABS: Lymphocytes # (M) 1.29 k/uL (1.0-4.8); Monocytes # (M) 0.83 k/uL (0-1.0); Neutrophils # (M) 7.18 k/uL (1.3-7.7); Neutrophils % (M) 78 %; Nucleated Red Blood Cells 4 /100 WBC (0-0); Total Cells Counted 200; WBC 9.2 k/uL (3.8-10.6)
[2021-10-04 12:56] LABS: Polychromasia Present
--- NOTE | 2021-10-04 14:23 | P.PN ---
<Aye Marcos - Last Filed: 10/04/21 14:21> Subjective Progress Note Date: 10/04/21 CHIEF COMPLAINT: Upper GI bleed HISTORY OF PRESENT ILLNESS: Patient is sitting up in bedside chair. He denies any abdominal pain. Denies any nausea vomiting. Tolerating a full liquid diet. He is having flatus. Denies any bowel movement. Patient status post EGD on 10/01/2021 which demonstrated bleeding gastric AVM, retained contents, gastritis, hiatal hernia and Schatzki's ring. Afebrile. WBC 9.2 hemoglobin 7.8-7.9 platelets 221 PHYSICAL EXAM: VITAL SIGNS: Reviewed. GENERAL: Well-developed in no acute distress. HEENT: No sclera icterus. Extraocular movements grossly intact. Moist buccal mucosa. Head is atraumatic, normocephalic. ABDOMEN: Soft. Nondistended. Nontender. NEUROLOGIC: Alert and oriented. Cranial nerves II through XII grossly intact. ASSESSMENT: 1. Upper GI bleed status post EGD with controlled bleeding with cauterization of small bleeding gastric AVM 2. Acute blood loss anemia secondary to GI bleed from bleeding AVM PLAN: -Continue supportive care -Continue monitor hemoglobin -Continue full liquid diet -Continue Protonix and Carafate -Continue to hold anticoagulation -Continue stool softeners Physician Chief Relay Tester note has been reviewed by physician. Signing provider agrees with the documented findings, assessment, and plan of care. Objective - Vital Signs Vital signs: Vital Signs Temp 98.0 F 10/04/21 12:00 Pulse 75 10/04/21 14:00 Resp 18 10/04/21 14:00 BP 90/50 10/04/21 12:00 Pulse Ox 93 L 10/04/21 12:00 Intake & Output 10/03/21 10/04/21 10/04/21 18:59 06:59 18:59 Intake Total 1090 10 120 Output Total 2700 Balance -1610 10 120 Weight 136.2 kg Intake: IV 10 10 0.9 10 Invasive Line 5 10 Oral 780 120 Hemodialysis 300 Output: Urine 200 Hemodialysis 2500 Other: Voiding Method Urinal Urinal Urinal # Voids 0 - Labs CBC & Chem 7: 10/04/21 07:09 10/04/21 07:09 Labs: Abnormal Lab Results - Last 24 Hours (Table) 0310/03/21 10/04/21 Range/Units 16:16 19:55 05:59 RBC (4.30-5.90) m/uL Hgb (13.0-17.5) gm/dL Hct (39.0-53.0) % MCHC (31.0-37.0) g/dL RDW (11.5-15.5) % Nucleated RBCs (0-0) /100 WBC Sodium (137-145) mmol/L Carbon Dioxide (22-30) mmol/L BUN (9-20) mg/dL Creatinine (0.66-1.25) mg/dL Glucose (74-99) mg/dL POC Glucose (mg/dL) 221 H 242 H 172 H (75-99) mg/dL C-Reactive Protein (<1.0) mg/dL Total Protein (6.3-8.2) g/dL Albumin (3.5-5.0) g/dL Procalcitonin (0.02-0.09) ng/mL 10/04/21 10/04/21 10/04/21 Range/Units 07:09 07:09 07:09 RBC 2.70 L (4.30-5.90) m/uL Hgb 7.9 L (13.0-17.5) gm/dL Hct 26.3 L (39.0-53.0) % MCHC 29.9 L (31.0-37.0) g/dL RDW 20.5 H (11.5-15.5) % Nucleated RBCs 4 H (0-0) /100 WBC Sodium 136 L (137-145) mmol/L Carbon Dioxide 21 L (22-30) mmol/L BUN 58 H (9-20) mg/dL Creatinine 4.25 H (0.66-1.25) mg/dL Glucose 163 H (74-99) mg/dL POC Glucose (mg/dL) (75-99) mg/dL C-Reactive Protein 6.0 H (<1.0) mg/dL Total Protein 6.2 L (6.3-8.2) g/dL Albumin 3.2 L (3.5-5.0) g/dL Procalcitonin 1.04 H (0.02-0.09) ng/mL 10/04/21 Range/Units 11:15 RBC (4.30-5.90) m/uL Hgb (13.0-17.5) gm/dL Hct (39.0-53.0) % MCHC (31.0-37.0) g/dL RDW (11.5-15.5) % Nucleated RBCs (0-0) /100 WBC Sodium (137-145) mmol/L Carbon Dioxide (22-30) mmol/L BUN (9-20) mg/dL Creatinine (0.66-1.25) mg/dL Glucose (74-99) mg/dL POC Glucose (mg/dL) 196 H (75-99) mg/dL C-Reactive Protein (<1.0) mg/dL Total Protein (6.3-8.2) g/dL Albumin (3.5-5.0) g/dL Procalcitonin (0.02-0.09) ng/mL Microbiology - Last 24 Hours (Table) 09/28/21 19:15 Blood Culture - Preliminary Blood No Growth after 120 hours 09/28/21 19:30 Blood Culture - Preliminary Blood No Growth after 120 hours <Ole Rainey - Last Filed: 10/04/21 17:17> Subjective I have personally seen and examined the patient, reviewed the [employer]AR[employer] SERVICES AND OUTSOURCING MANAGER /PAs history, exam and MDM and agree with the assessment and plan as written. Based on total visit time, I have performed more than 50% of the visit. As above: Patient had flatus but no bowel movement today. Will order Dulcolax suppository for this evening. If no bowel movement by tomorrow we will start soapsuds enemas. Objective - Vital Signs Vital signs: Vital Signs Temp 98.0 F 10/04/21 15:34 Pulse 90 10/04/21 15:43 Resp 18 10/04/21 15:34 BP 98/64 10/04/21 15:34 Pulse Ox 91 L 10/04/21 15:34 Intake & Output 10/03/21 10/04/21 10/04/21 18:59 06:59 18:59 Intake Total 1090 10 240 Output Total 2700 Balance -1610 10 240 Weight 136.2 kg Intake: IV 10 10 0.9 10 Invasive Line 5 10 Oral 780 240 Hemodialysis 300 Output: Urine 200 Hemodialysis 2500 Other: Voiding Method Urinal Urinal Urinal # Voids 0 - Labs CBC & Chem 7: 10/04/21 07:09 10/04/21 07:09 Labs: Abnormal Lab Results - Last 24 Hours (Table) 10/03/21 10/04/21 10/04/21 Range/Units 19:55 05:59 07:09 RBC 2.70 L (4.30-5.90) m/uL Hgb 7.9 L (13.0-17.5) gm/dL Hct 26.3 L (39.0-53.0) % MCHC 29.9 L (31.0-37.0) g/dL RDW 20.5 H (11.5-15.5) % Nucleated RBCs 4 H (0-0) /100 WBC Sodium (137-145) mmol/L Carbon Dioxide (22-30) mmol/L BUN (9-20) mg/dL Creatinine (0.66-1.25) mg/dL Glucose (74-99) mg/dL POC Glucose (mg/dL) 242 H 172 H (75-99) mg/dL C-Reactive Protein (<1.0) mg/dL Total Protein (6.3-8.2) g/dL Albumin (3.5-5.0) g/dL Procalcitonin (0.02-0.09) ng/mL 10/04/21 10/04/21 10/04/21 Range/Units 07:09 07:09 11:15 RBC (4.30-5.90) m/uL Hgb (13.0-17.5) gm/dL Hct (39.0-53.0) % MCHC (31.0-37.0) g/dL RDW (11.5-15.5) % Nucleated RBCs (0-0) /100 WBC Sodium 136 L (137-145) mmol/L Carbon Dioxide 21 L (22-30) mmol/L BUN 58 H (9-20) mg/dL Creatinine 4.25 H (0.66-1.25) mg/dL Glucose 163 H (74-99) mg/dL POC Glucose (mg/dL) 196 H (75-99) mg/dL C-Reactive Protein 6.0 H (<1.0) mg/dL Total Protein 6.2 L (6.3-8.2) g/dL Albumin 3.2 L (3.5-5.0) g/dL Procalcitonin 1.04 H (0.02-0.09) ng/mL 10/04/21 Range/Units 16:26 RBC (4.30-5.90) m/uL Hgb (13.0-17.5) gm/dL Hct (39.0-53.0) % MCHC (31.0-37.0) g/dL RDW (11.5-15.5) % Nucleated RBCs (0-0) /100 WBC Sodium (137-145) mmol/L Carbon Dioxide (22-30) mmol/L BUN (9-20) mg/dL Creatinine (0.66-1.25) mg/dL Glucose (74-99) mg/dL POC Glucose (mg/dL) 178 H (75-99) mg/dL C-Reactive Protein (<1.0) mg/dL Total Protein (6.3-8.2) g/dL Albumin (3.5-5.0) g/dL Procalcitonin (0.02-0.09) ng/mL Microbiology - Last 24 Hours (Table) 09/28/21 19:15 Blood Culture - Preliminary Blood No Growth after 120 hours 09/28/21 19:30 Blood Culture - Preliminary Blood No Growth after 120 hours Assessment and Plan (1) Upper GI bleed Current Visit: Yes Status: Acute Code(s): K92.2 - GASTROINTESTINAL HEMORRHAGE, UNSPECIFIED SNOMED Code(s): 79509325
--- NOTE | 2021-10-04 15:08 | P.PN ---
Subjective This patient is a 76-year-old gentleman with a history of permanent atrial fibrillation, sick sinus syndrome, status post permanent pacemaker, hypert ension, diabetes, sleep apnea, and COPD who presented to the hospital with increasing weight gain and shortness of breath of 3 weeks duration. Patient was found to be in renal failure with a creatinine of 5, low sodium and elevated BUN. Patient also complains of nausea and vomiting. Patient was found to be hypotensive. We have been consulted see the patient for hypotension. 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 Also anemic with hemoglobin 7.1 and 1 unit of blood given. Patient seen at bedside, He denies any chest pain. His blood pressure has improved. He underwent dialysis with 2.5 L fluid removed. He has been tolerating midodrine his blood pressures have improved. He's currently maintained on midodrine 10 mg 4 times a day. His Eliquis continues to be on hold GENERAL: Well-appearing, well-nourished and in no acute distress. NECK: Supple without JVD or thyromegaly. LUNGS: Breath sounds clear to auscultation bilaterally. Respiration equal and unlabored. No wheezes, rales or rhonchi. HEART: Regular rate and rhythm without murmurs, rubs or gallops. S1 and S2 heard. EXTREMITIES: Normal range of motion, no edema. No clubbing or cyanosis. Peripheral pulses intact. ASSESSMENT Permanent atrial fibrillation on eliquis outpatient Hypotension Sick sinus syndrome status post permanent pacemaker Acute renal failure with fluid overload requiring dialysis Acute onset heart failure with preserved ejection fraction, secondary to renal failure PLAN From cardiology perspective, no changes at this time. We'll follow the patient as needed. Recommend restarting patient's Eliquis when cleared by surgery. Nurse Practitioner note has been reviewed, I agree with a documented findings and plan of care. Patient was seen and examined. Objective - Vital Signs Vital signs: Vital Signs Temp 98.0 F 10/04/21 12:00 Pulse 75 10/04/21 14:00 Resp 18 10/04/21 14:00 BP 90/50 10/04/21 12:00 Pulse Ox 93 L 10/04/21 12:00 Intake & Output 10/03/21 10/04/21 10/04/21 18:59 06:59 18:59 Intake Total 1090 10 240 Output Total 2700 Balance -1610 10 240 Weight 136.2 kg Intake: IV 10 10 0.9 10 Invasive Line 5 10 Oral 780 240 Hemodialysis 300 Output: Urine 200 Hemodialysis 2500 Other: Voiding Method Urinal Urinal Urinal # Voids 0 - Labs CBC & Chem 7: 10/04/21 07:09 10/04/21 07:09 Labs: Abnormal Lab Results - Last 24 Hours (Table) 10/03/21 10/03/21 10/04/21 Range/Units 16:16 19:55 05:59 RBC (4.30-5.90) m/uL Hgb (13.0-17.5) gm/dL Hct (39.0-53.0) % MCHC (31.0-37.0) g/dL RDW (11.5-15.5) % Nucleated RBCs (0-0) /100 WBC Sodium (137-145) mmol/L Carbon Dioxide (22-30) mmol/L BUN (9-20) mg/dL Creatinine (0.66-1.25) mg/dL Glucose (74-99) mg/dL POC Glucose (mg/dL) 221 H 242 H 172 H (75-99) mg/dL C-Reactive Protein (<1.0) mg/dL Total Protein (6.3-8.2) g/dL Albumin (3.5-5.0) g/dL Procalcitonin (0.02-0.09) ng/mL 10/04/21 10/04/21 10/04/21 Range/Units 07:09 07:09 07:09 RBC 2.70 L (4.30-5.90) m/uL Hgb 7.9 L (13.0-17.5) gm/dL Hct 26.3 L (39.0-53.0) % MCHC 29.9 L (31.0-37.0) g/dL RDW 20.5 H (11.5-15.5) % Nucleated RBCs 4 H (0-0) /100 WBC Sodium 136 L (137-145) mmol/L Carbon Dioxide 21 L (22-30) mmol/L BUN 58 H (9-20) mg/dL Creatinine 4.25 H (0.66-1.25) mg/dL Glucose 163 H (74-99) mg/dL POC Glucose (mg/dL) (75-99) mg/dL C-Reactive Protein 6.0 H (<1.0) mg/dL Total Protein 6.2 L (6.3-8.2) g/dL Albumin 3.2 L (3.5-5.0) g/dL Procalcitonin 1.04 H (0.02-0.09) ng/mL 10/04/21 Range/Units 11:15 RBC (4.30-5.90) m/uL Hgb (13.0-17.5) gm/dL Hct (39.0-53.0) % MCHC (31.0-37.0) g/dL RDW (11.5-15.5) % Nucleated RBCs (0-0) /100 WBC Sodium (137-145) mmol/L Carbon Dioxide (22-30) mmol/L BUN (9-20) mg/dL Creatinine (0.66-1.25) mg/dL Glucose (74-99) mg/dL POC Glucose (mg/dL) 196 H (75-99) mg/dL C-Reactive Protein (<1.0) mg/dL Total Protein (6.3-8.2) g/dL Albumin (3.5-5.0) g/dL Procalcitonin (0.02-0.09) ng/mL Microbiology - Last 24 Hours (Table) 09/28/21 19:15 Blood Culture - Preliminary Blood No Growth after 120 hours 09/28/21 19:30 Blood Culture - Preliminary Blood No Growth after 120 hours
--- NOTE | 2021-10-04 15:47 | P.PN ---
Subjective Progress Note Date: 10/04/21 76-year-old male that was admitted to the emergency department back on October 08. He apparently came into the ER complaining of weakness. The patient has a history of congestive heart failure, diabetes, and COPD. Apparently for 3 weeks prior to admission, the patient admits to progressive and increasing shortness of breath. He also had a cough, which is mostly nonproductive. He denied any chest pain or pressure. There are no palpitations. The patient also denied any fever or chills. He denied any GI complaints such as nausea, vomiting, and diarrhea. He also denied any abdominal pain. He apparently did gain quite a bit of weight over the weeks or so prior to admission. We were only consulted last night, as the patient apparently was having significant difficulty breathing, and I placed the patient on BiPAP. He did seem to do well on BiPAP, and states that it made him feel better. Labs today include a white count of 9.8, hemoglobin 6.7, hematocrit 22.3, and platelet count of 194,000. There was mention, the patient will receive a unit of blood. In addition, sodium 133, potassium 4.4, chlorides 100, CO2 21, anion gap 12, BUN 82, and creatinine 4.47. Albumin is 3.0. Blood cultures are negative. Chest x-ray from September 30, shows a recent placement of a right jugular central venous catheter. There does appear to be a retrocardiac density, effusion, atelectasis, and/or infiltrate. On 10/03/2021, seeing the patient for a follow-up. The patient is undergoing hemodialysis and the patient is stable in terms of his respiratory status. Currently is on 6 L O2 by nasal cannula. No signs of any respiratory distress. The patient had an acute kidney injury along with multitude of other comorbidities as documented in the medical records. He is not having any cough, sputum production no chest tightness or wheezing. He is breathing comfortably at this point in time. He is currently afebrile. White cell count is at 11.8 with hemoglobin of 7.8, BUN is at 84 with a creatinine of 5.32 and a glucose of 149 and a sodium level of 135. Blood cultures of been negative. The patient had a component of an acute on chronic diastolic heart failure and he is on status is improving with hemodialysis. He was noted to be somewhat hypotensive and the patient was started on midodrine. He is on no antibiotic coverage for now. No other significant events overnight otherwise. 10/04/2021, seeing the patient for a follow-up. The patient is resting comfortably in bed. The patient is currently on oxygen at 5 L O2 nasal cannula. Breathing is nonlabored. The patient is afebrile the patient is hemodynamically stable. Noted the patient has not encountered any further epis odes of GI bleed. His blood work, the patient has a hemoglobin of 7.9 which is essentially stable compared to yesterday. The patient also has a white cell count of 9.2. He was given IV Lasix and the patient is producing some urine output. On today's evaluation, BUN is a 58 with a creatinine of 4.25. No hemodialysis to be done today. Sodium is at 136 with a potassium level of 4.4. Rest of the LFTs are all essentially within normal limits. Pro-calcitonin level is at 1.04 nephrology is on the case. The patient on oral bicarb supplements. The patient is also on Synthroid and NovoLog slide scale coverage. The patient is being given Ativan as for chronic anemia. No anticoagulants for now. The patient was taken off the Eliquis using a recent GI bleed. Objective - Vital Signs Vital signs: Vital Signs Temp 98.0 F 10/04/21 15:34 Pulse 91 10/04/21 15:34 Resp 18 10/04/21 15:34 BP 98/64 10/04/21 15:34 Pulse Ox 91 L 10/04/21 15:34 Intake & Output 10/03/21 10/04/21 10/04/21 18:59 06:59 18:59 Intake Total 1090 10 240 Output Total 2700 Balance -1610 10 240 Weight 136.2 kg Intake: IV 10 10 0.9 10 Invasive Line 5 10 Oral 780 240 Hemodialysis 300 Output: Urine 200 Hemodialysis 2500 Other: Voiding Method Urinal Urinal Urinal # Voids 0 - Exam No acute distress, oriented 3. Sitting up at the bedside. Saturations are in the low 90s. Nasal cannula at 5 L. the patient was undergoing dialysis at time of my evaluation. Seems to be comfortable. Tolerating hemodialysis without any major difficulties. Head exam was generally normal. There was no scleral icterus or corneal arcus. Mucous membranes were moist. HEENT examination is grossly unremarkable. Neck supple. Full range of motion. No adenopathy thyromegaly or neck vein distention. Cardiovascular examination reveals regular rhythm rate. S1-S2 normal. No S3 or S4. No discernible murmur noted. Heart sounds are distant. Lungs reveal scattered bilateral rhonchi. Bibasilar crackles are noted. Breath sounds are equal bilaterally. There are no wheezes. Abdomen soft bowel sounds are heard. No masses or tenderness. Extremities are intact. 1+ edema is noted. No cyanosis or clubbing. Skin is without rash or lesion. Neurologic examination is brief but nonfocal. - Labs CBC & Chem 7: 10/04/21 07:09 10/04/21 07:09 Labs: Abnormal Lab Results - Last 24 Hours (Table) 10/03/21 10/03/21 10/04/21 Range/Units 16:16 19:55 05:59 RBC (4.30-5.90) m/uL Hgb (13.0-17.5) gm/dL Hct (39.0-53.0) % MCHC (31.0-37.0) g/dL RDW (11.5-15.5) % Nucleated RBCs (0-0) /100 WBC Sodium (137-145) mmol/L Carbon Dioxide (22-30) mmol/L BUN (9-20) mg/dL Creatinine (0.66-1.25) mg/dL Glucose (74-99) mg/dL POC Glucose (mg/dL) 221 H 242 H 172 H (75-99) mg/dL C-Reactive Protein (<1.0) mg/dL Total Protein (6.3-8.2) g/dL Albumin (3.5-5.0) g/dL Procalcitonin (0.02-0.09) ng/mL 10/04/21 10/04/21 10/04/21 Range/Units 07:09 07:09 07:09 RBC 2.70 L (4.30-5.90) m/uL Hgb 7.9 L (13.0-17.5) gm/dL Hct 26.3 L (39.0-53.0) % MCHC 29.9 L (31.0-37.0) g/dL RDW 20.5 H (11.5-15.5) % Nucleated RBCs 4 H (0-0) /100 WBC Sodium 136 L (137-145) mmol/L Carbon Dioxide 21 L (22-30) mmol/L BUN 58 H (9-20) mg/dL Creatinine 4.25 H (0.66-1.25) mg/dL Glucose 163 H (74-99) mg/dL POC Glucose (mg/dL) (75-99) mg/dL C-Reactive Protein 6.0 H (<1.0) mg/dL Total Protein 6.2 L (6.3-8.2) g/dL Albumin 3.2 L (3.5-5.0) g/dL Procalcitonin 1.04 H (0.02-0.09) ng/mL 10/04/21 Range/Units 11:15 RBC (4.30-5.90) m/uL Hgb (13.0-17.5) gm/dL Hct (39.0-53.0) % MCHC (31.0-37.0) g/dL RDW (11.5-15.5) % Nucleated RBCs (0-0) /100 WBC Sodium (137-145) mmol/L Carbon Dioxide (22-30) mmol/L BUN (9-20) mg/dL Creatinine (0.66-1.25) mg/dL Glucose (74-99) mg/dL POC Glucose (mg/dL) 196 H (75-99) mg/dL C-Reactive Protein (<1.0) mg/dL Total Protein (6.3-8.2) g/dL Albumin (3.5-5.0) g/dL Procalcitonin (0.02-0.09) ng/mL Microbiology - Last 24 Hours (Table) 09/28/21 19:15 Blood Culture - Preliminary Blood No Growth after 120 hours 09/28/21 19:30 Blood Culture - Preliminary Blood No Growth after 120 hours Assessment and Plan Plan: Acute hypoxic respiratory failure with secondary Shortness of breath, secondary to fluid overload. There may be a component of acute on top of her chronic diastolic heart failure with hypoxic respiratory failure and the patient is currently off BiPAP and the patient is currently on 5 L about 2 by nasal cannula. The patient underwent hemodialysis yesterday. No hemodialysis to be done today. The patient was started on Lasix by nephrology and the patient is producing urine output. We'll monitor the BUN and a creatinine in the urine out put in general. Repeat chest x-ray to be done tomorrow. Chronic kidney disease, status post initiation of hemodialysis. No hemodialysis for today. Anemia, status post packed red blood cell transfusion. Hemoglobin is stable Anion gap metabolic acidosis, secondary to renal failure. The patient the patient's Cardiolite bicarb infusion Hypotension, improved on midodrine. History of chronic atrial fibrillation, status post pacemaker insertion. History of diabetes mellitus. History of COPD. History of hyperlipidemia. History of sleep apnea syndrome. History of gout. 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 Recent history of pulmonary embolism, currently off anticoagulation due to underlying GI bleed as the patient was receiving anticoagulation with Eliquis on outpatient basis prior to his current admission. Plan: Continue hemodialysis per nephrology, no plans for dialysis today. We'll monitor the BUN and the creatinine Repeat chest x-ray in the morning Monitor volume status Monitor oxygenation and wean down the FiO2 as tolerated to maintain saturation above 90% The patient had an acute GI bleed and the patient underwent EGD and he was noted to have bleeding gastric AVMs. Monitor hemoglobin and crit hemoglobin is at 7.8. The patient was given IV iron. The patient is also currently off the a nticoagulation. We'll may need to revisit the anticoagulation issue at a later stage. His most recent CAT scan of the chest from May 2021 showed suspicious pulmonary embolism in the left upper lobe pulmonary artery branch addition to the right lower lobe pulmonary artery branch essentially secondary to distal branches noted. Echocardiogram shows a severe concentric LVH and hypertensive heart disease with an ejection fraction of 50-55% and severe tricuspid regurgitation with dilatation of the IVC consistent with elevation of the right atrial pressure. Right ventricular systolic pressure was estimated to be around 45. The patient is still off anticoagulation. This will be discussed with the general surgical team to decide if initiation of anticoagulation at lower dose of Eliquis at 2.5 mg twice a day is appropriate for this patient. Hemoglobin remains stable.
[2021-10-04 16:27] LABS: Glucose,Whole Blood 178 mg/dL (75-99)
[2021-10-04 20:25] LABS: Glucose,Whole Blood 191 mg/dL (75-99)
[2021-10-05] MEDS: bisacodyL 10 MG SUPP RECTAL SCH ×3 (00:24→21:21)
[2021-10-05] MEDS: MIDODRINE 5 MG TAB PO SCH ×5 (00:29→21:00)
[2021-10-05 06:15] LABS: Glucose,Whole Blood 206 mg/dL (75-99)
[2021-10-05] MEDS: LEVOTHYROXINE 50 MCG TAB PO SCH (06:24)
[2021-10-05] MEDS: SUCRALFATE 1 GM TAB PO SCH ×2 (06:25→17:10)
[2021-10-05] MEDS: INSULIN ASPART (NovoLOG) 100 UNIT/ML VIAL SQ SCH ×4 (06:25→21:00)
[2021-10-05] MEDS: IPRATROPIUM-ALBUTEROL 3 ML NEB INHALATION SCH ×4 (08:00→20:04)
[2021-10-05] MEDS: SYMBICORT 160-4.5 MCG INHALER INHALATION SCH ×2 (08:00→20:04)
--- NOTE | 2021-10-05 08:13 | XR ---
EXAMINATION TYPE: XR chest 1V DATE OF EXAM: 10/05/2021 COMPARISON: 09/30/2021 HISTORY: Shortness of breath TECHNIQUE: Single frontal view of the chest is obtained. FINDINGS: Heart is enlarged and there is bilateral consolidation and small effusions. Cardiac device and dialysis catheter is stable. No sizable pneumothorax. IMPRESSION: Bilateral atelectasis or infiltrate and small effusion. Correlate for mild central venou s congestion.
[2021-10-05 08:16] LABS: Albumin 3.1 g/dL (3.5-5.0); Calcium 8.9 mg/dL (8.4-10.2); Phosphorus 4.8 mg/dL (2.5-4.5); Potassium 4.7 mmol/L (3.5-5.1); Total Bilirubin 1.2 mg/dL (0.2-1.3); Total Protein 6.1 g/dL (6.3-8.2)
[2021-10-05 08:40] LABS: Anisocytosis Moderate; Basophils % (A) 0 %; Eosinophils # (A) 0.2 k/uL (0-0.7); Eosinophils % (A) 2 %; HCT 27.9 % (39.0-53.0); HGB 7.9 gm/dL (13.0-17.5); Hypochromasia Marked; Lymphocytes # (A) 1.7 k/uL (1.0-4.8); Lymphocytes % (A) 18 %; MCHC 28.3 g/dL (31.0-37.0); MCV 98.8 fL (80.0-100.0); Macrocytosis Slight; Mean Platelet Volume 9.1; Monocytes # (A) 0.7 k/uL (0-1.0); Monocytes % (A) 7 %; Neutrophils # (A) 6.5 k/uL (1.3-7.7); Neutrophils % (A) 69 %; Platelet Count 188 k/uL (150-450); Poikilocytosis Moderate; RBC 2.82 m/uL (4.30-5.90); RDW 22.1 % (11.5-15.5); WBC 9.5 k/uL (3.8-10.6)
--- NOTE | 2021-10-05 09:26 | P.PN ---
Subjective Patient is seen in follow-up for acute kidney injury. Started on hemodialysis 09/30/2021. No problems with dialysis. No active bleeding. Hemoglobin stable. Urine output remains low. Voided about 200 mL yesterday. Blood pressure is on the lower side. On 5 L high flow cannula. Oral intake fair. Vital signs are stable. Blood pressure on the lower side. General: Awake and alert. HEENT: On nasal cannula. LUNGS: Breath sounds decreased. HEART: Rate and Rhythm are regular. ABDOMEN: Soft, obese. EXTREMITITES: 1+ edema. Objective - Vital Signs Vital signs: Vital Signs Temp 97.8 F 10/05/21 08:15 Pulse 98 10/05/21 08:15 Resp 20 10/05/21 08:15 BP 96/54 10/05/21 08:15 Pulse Ox 98 10/05/21 08:15 Intake & Output 10/04/21 10/05/21 10/05/21 18:59 06:59 18:59 Intake Total 240 300 Output Total 200 Balance 240 100 Weight 137.2 kg Intake: Oral 240 300 Output: Urine 200 Other: Voiding Method Urinal Toilet Urinal - Labs CBC & Chem 7: 10/05/21 07:06 10/05/21 07:06 Labs: Abnormal Lab Results - Last 24 Hours (Table) 10/04/21 10/04/21 10/04/21 Range/Units 07:09 07:09 11:15 RBC (4.30-5.90) m/uL Hgb (13.0-17.5) gm/dL Hct (39.0-53.0) % MCHC (31.0-37.0) g/dL RDW (11.5-15.5) % Nucleated RBCs 4 H (0-0) /100 WBC Sodium (137-145) mmol/L BUN (9-20) mg/dL Creatinine (0.66-1.25) mg/dL Glucose (74-99) mg/dL POC Glucose (mg/dL) 196 H (75-99) mg/dL Phosphorus (2.5-4.5) mg/dL Total Protein (6.3-8.2) g/dL Albumin (3.5-5.0) g/dL Procalcitonin 1.04 H (0.02-0.09) ng/mL 10/04/21 10/04/21 10/05/21 Range/Units 16:26 20:24 06:13 RBC (4.30-5.90) m/uL Hgb (13.0-17.5) gm/dL Hct (39.0-53.0) % MCHC (31.0-37.0) g/dL RDW (11.5-15.5) % Nucleated RBCs (0-0) /100 WBC Sodium (137-145) mmol/L BUN (9-20) mg/dL Creatinine (0.66-1.25) mg/dL Glucose (74-99) mg/dL POC Glucose (mg/dL) 178 H 191 H 206 H (75-99) mg/dL Phosphorus (2.5-4.5) mg/dL Total Protein (6.3-8.2) g/dL Albumin (3.5-5.0) g/dL Procalcitonin (0.02-0.09) ng/mL 10/05/21 10/05/21 Range/Units 07:06 07:06 RBC 2.82 L (4.30-5.90) m/uL Hgb 7.9 L (13.0-17.5) gm/dL Hct 27.9 L (39.0-53.0) % MCHC 28.3 L (31.0-37.0) g/dL RDW 22.1 H (11.5-15.5) % Nucleated RBCs (0-0) /100 WBC Sodium 136 L (137-145) mmol/L BUN 63 H (9-20) mg/dL Creatinine 5.03 H (0.66-1.25) mg/dL Glucose 134 H (74-99) mg/dL POC Glucose (mg/dL) (75-99) mg/dL Phosphorus 4.8 H (2.5-4.5) mg/dL Total Protein 6.1 L (6.3-8.2) g/dL Albumin 3.1 L (3.5-5.0) g/dL Procalcitonin (0.02-0.09) ng/mL Microbiology - Last 24 Hours (Table) 09/28/21 19:30 Blood Culture - Final Blood No Growth after 144 hours 09/28/21 19:15 Blood Culture - Final Blood No Growth after 144 hours Assessment and Plan Plan: Assessment: 1. Acute kidney injury secondary to ATN secondary to hypotension and cardiorenal syndrome. No evidence of hydronephrosis. UA benign. Started on hemodialysis 09/30/2021 due to concern for uremia as well as oliguria. Has permacath. Baseline creatinine 1-1.2 from May 2021. 2. Acute on chronic diastolic CHF with severe tricuspid regurgitation and mild to moderate pulmonary hypertension. 3. Acute GI bleed status post EGD. Bleeding gastric AVM was noted. Hemoglobin 7.9 today. On Aranesp. Status post blood transfusion and IV iron this admission. 4. Hypotension. Cortisol level not low. On midodrine. 5. Diabetes mellitus. 6. Metabolic acidosis secondary to acute kidney injury. On oral bicarb. Better. 7. Hypervolemic hyponatremia. Improved. Plan: Hemodialysis today. Continue to monitor renal function and urine output. Monitor for renal recovery. Phosphorus 4.8 dated 10/05/2021. Add torsemide. Hold midodrine for systolic blood pressure greater than 110.
--- NOTE | 2021-10-05 10:11 | P.PN ---
Subjective Progress Note Date: 10/04/21 Tristian Galloway, is a 76-year-old male patient of Dr. Sampson who presented with concerns of increasing weight gain and increased shortness of breath over the past 3 weeks. Patient has a past medical history of CHF, atrial fibrillation, diabetes mellitus and COPD. Patient denies any recent acute illness. Patient denies nausea vomiting or diarrhea. Reports significant increase in lower extremity edema. Chest x-ray completed showing CHF. Ultrasound of kidneys and bladder completed showing no evidence of hydronephrosis small abdominal ascites. Lab work indicated of hyponatremia with sodium low at 126, creatinine elevated at 5.02 and bun 150. Initial lactic acid also elevated at 3.4. Repeat lactic acid 1.6. Patient also noted to be hypotensive with a blood pressure 86/52. At this time nephrology consulted. At this time patient is resting comfortably in chair. Patient is on 4 L nasal cannula. Temp 96.4, heart rate 65, respiratory rate 18 On 09/30/2021 patient is alert and oriented times he currently sitting up in chair. Plans for hemodialysis catheter placement today with possible plans of hemodialysis per nephrology services. Patient remains on 4 L nasal cannula. Patient denies chest pain. Patient denies nausea vomiting or diarrhea. Patient denies any urinary burning or frequency. On 10/01/2021 patient was seen and examined on the medical floor he is alert and oriented 3 in no apparent distress, at this time he is undergoing hemodialysis, he underwent EGD this morning with Dr. Rainey, patient had evidence of bleeding gastric AVM and this was cauterized, this morning hemoglobin is 6.8, at this time patient does not qualify for red blood cell transfusion, will monitor closely, otherwise patient is complaining of generalized pain and discomfort he denies any fever or chills no headache or dizziness no chest pain no shortness of breath no cough no nausea or vomiting no abdominal pain no diarrhea and no urinary symptoms. On 10/02/2021 patient is alert and oriented 3. Hemoglobin today 6.7. Patient did not undergo hemodialysis yesterday. No further episodes of bleeding. At this time patient denies chest pain or shortness breath. Patient denies nausea vomiting or diarrhea. Patient denies any urinary burning frequency. On 10/03/2021 patient was seen and examined on the telemetry floor he is alert and oriented 3 in no apparent distress vital exam reveals a temperature of 97.7 pulse 100 respiration 18 and blood pressure 130/56 pulse ox 93% on 6 L nasal cannula patient is receiving hemodialysis he denies any chest pain or shortness of breath no cough no nausea or vomiting no abdominal pain no diarrhea and no urinary symptoms, laboratory data reveals a white blood count of 11.8 hemoglobin 7.8 platelet count 241 BUN 84 creatinine 5.3 to at this time will resume Eliquis at a decreased dose of 2.5 twice a day due to renal function, patient was on 5 mg twice daily and this was held on admission to allow for placement of dialysis catheter. On 10/04/2021 patient is alert and oriented 3. Pulmonary, cardiology, surgical services nephrology services are following. Hemoglobin remained stable at 7.9. 1 dose of IV Lasix ordered per nephrology. This time patient is still complaining of some shortness breath. Patient denies chest pain. Patient denies nausea vomiting or diarrhea. Patient denies any urinary burning or frequency Objective - Vital Signs Vital signs: Vital Signs Temp 98.0 F 10/04/21 15:34 Pulse 90 10/04/21 15:43 Resp 18 10/04/21 15:34 BP 98/64 10/04/21 15:34 Pulse Ox 91 L 10/04/21 15:34 Intake & Output 10/03/21 10/04/21 10/04/21 18:59 06:59 18:59 Intake Total 1090 10 240 Output Total 2700 Balance -1610 10 240 Weight 136.2 kg Intake: IV 10 10 0.9 10 Invasive Line 5 10 Oral 780 240 Hemodialysis 300 Output: Urine 200 Hemodialysis 2500 Other: Voiding Method Urinal Urinal Urinal # Voids 0 - Exam Head normocephalic Neck supple Lungs diminished bilaterally with crackles Heart regular rate and rhythm S1-S2, no rub or gallop Abdomen is soft nontender nondistended positive bowel sounds no hepatosplenomegaly Extremities +2 lower extremity edema. +2 upper extremity edema Neuro alert and orientated to 3 - Labs CBC & Chem 7: 10/05/21 07:06 10/05/21 07:06 Labs: Abnormal Lab Results - Last 24 Hours (Table) 10/03/21 10/04/21 10/04/21 Range/Units 19:55 05:59 07:09 RBC 2.70 L (4.30-5.90) m/uL Hgb 7.9 L (13.0-17.5) gm/dL Hct 26.3 L (39.0-53.0) % MCHC 29.9 L (31.0-37.0) g/dL RDW 20.5 H (11.5-15.5) % Nucleated RBCs 4 H (0-0) /100 WBC Sodium (137-145) mmol/L Carbon Dioxide (22-30) mmol/L BUN (9-20) mg/dL Creatinine (0.66-1.25) mg/dL Glucose (74-99) mg/dL POC Glucose (mg/dL) 242 H 172 H (75-99) mg/dL C-Reactive Protein (<1.0) mg/dL Total Protein (6.3-8.2) g/dL Albumin (3.5-5.0) g/dL Procalcitonin (0.02-0.09) ng/mL 10/04/21 10/04/21 10/04/21 Range/Units 07:09 07:09 11:15 RBC (4.30-5.90) m/uL Hgb (13.0-17.5) gm/dL Hct (39.0-53.0) % MCHC (31.0-37.0) g/dL RDW (11.5-15.5) % Nucleated RBCs (0-0) /100 WBC Sodium 136 L (137-145) mmol/L Carbon Dioxide 21 L (22-30) mmol/L BUN 58 H (9-20) mg/dL Creatinine 4.25 H (0.66-1.25) mg/dL Glucose 163 H (74-99) mg/dL POC Glucose (mg/dL) 196 H (75-99) mg/dL C-Reactive Protein 6.0 H (<1.0) mg/dL Total Protein 6.2 L (6.3-8.2) g/dL Albumin 3.2 L (3.5-5.0) g/dL Procalcitonin 1.04 H (0.02-0.09) ng/mL 10/04/21 Range/Units 16:26 RBC (4.30-5.90) m/uL Hgb (13.0-17.5) gm/dL Hct (39.0-53.0) % MCHC (31.0-37.0) g/dL RDW (11.5-15.5) % Nucleated RBCs (0-0) /100 WBC Sodium (137-145) mmol/L Carbon Dioxide (22-30) mmol/L BUN (9-20) mg/dL Creatinine (0.66-1.25) mg/dL Glucose (74-99) mg/dL POC Glucose (mg/dL) 178 H (75-99) mg/dL C-Reactive Protein (<1.0) mg/dL Total Protein (6.3-8.2) g/dL Albumin (3.5-5.0) g/dL Procalcitonin (0.02-0.09) ng/mL Microbiology - Last 24 Hours (Table) 09/28/21 19:15 Blood Culture - Preliminary Blood No Growth after 120 hours 09/28/21 19:30 Blood Culture - Preliminary Blood No Growth after 120 hours Assessment and Plan Assessment: 1. Increased edema and dyspnea secondary to acute kidney injury. Status post hemodialysis catheter placement and initiation of hemodialysis 2. Hypotension. Maintained on Midirone 3. Hyponatremia. Nephrology services following 4. Ischemic cardiomyopathy status post pacemaker placement 5. Metabolic acidosis associated with acute kidney injury 6. Diabetes mellitus type 2 7. Hypothyroidism 8. 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 History of pulmonary embolism. DVT prophylaxis SCDs due to plans of hemodialysis access placement. GI prophylaxis Protonix Nephrology, cardiology, surgical, infectious disease, pulmonary and vascular surgery consulted stastus post hemodialysis catheter placement in hemodialysis Repeat labs ordered
--- NOTE | 2021-10-05 10:15 | P.PN ---
Subjective Progress Note Date: 10/05/21 Tristian Galloway, is a 76-year-old male patient of Dr. Sampson who presented with concerns of increasing weight gain and increased shortness of breath over the past 3 weeks. Patient has a past medical history of CHF, atrial fibrillation, diabetes mellitus and COPD. Patient denies any recent acute illness. Patient denies nausea vomiting or diarrhea. Reports significant increase in lower extremity edema. Chest x-ray completed showing CHF. Ultrasound of kidneys and bladder completed showing no evidence of hydronephrosis small abdominal ascites. Lab work indicated of hyponatremia with sodium low at 126, creatinine elevated at 5.02 and bun 150. Initial lactic acid also elevated at 3.4. Repeat lactic acid 1.6. Patient also noted to be hypotensive with a blood pressure 86/52. At this time nephrology consulted. At this time patient is resting comfortably in chair. Patient is on 4 L nasal cannula. Temp 96.4, heart rate 65, respiratory rate 18 On 09/30/2021 patient is alert and oriented times he currently sitting up in chair. Plans for hemodialysis catheter placement today with possible plans of hemodialysis per nephrology services. Patient remains on 4 L nasal cannula. Patient denies chest pain. Patient denies nausea vomiting or diarrhea. Patient denies any urinary burning or frequency. On 10/01/2021 patient was seen and examined on the medical floor he is alert and oriented 3 in no apparent distress, at this time he is undergoing hemodialysis, he underwent EGD this morning with Dr. Rainey, patient had evidence of bleeding gastric AVM and this was cauterized, this morning hemoglobin is 6.8, at this time patient does not qualify for red blood cell transfusion, will monitor closely, otherwise patient is complaining of generalized pain and discomfort he denies any fever or chills no headache or dizziness no chest pain no shortness of breath no cough no nausea or vomiting no abdominal pain no diarrhea and no urinary symptoms. On 10/02/2021 patient is alert and oriented 3. Hemoglobin today 6.7. Patient did not undergo hemodialysis yesterday. No further episodes of bleeding. At this time patient denies chest pain or shortness breath. Patient denies nausea vomiting or diarrhea. Patient denies any urinary burning frequency. On 10/03/2021 patient was seen and examined on the telemetry floor he is alert and oriented 3 in no apparent distress vital exam reveals a temperature of 97.7 pulse 100 respiration 18 and blood pressure 130/56 pulse ox 93% on 6 L nasal cannula patient is receiving hemodialysis he denies any chest pain or shortness of breath no cough no nausea or vomiting no abdominal pain no diarrhea and no urinary symptoms, laboratory data reveals a white blood count of 11.8 hemoglobin 7.8 platelet count 241 BUN 84 creatinine 5.3 to at this time will resume Eliquis at a decreased dose of 2.5 twice a day due to renal function, patient was on 5 mg twice daily and this was held on admission to allow for placement of dialysis catheter. On 10/04/2021 patient is alert and oriented 3. Pulmonary, cardiology, surgical services nephrology services are following. Hemoglobin remained stable at 7.9. 1 dose of IV Lasix ordered per nephrology. This time patient is still complaining of some shortness breath. Patient denies chest pain. Patient denies nausea vomiting or diarrhea. Patient denies any urinary burning or frequency On 10/05/2021 patient is alert and oriented 3. Plans for possible hemodialysis today. Current vitals temp 97.8, heart rate 98, respiratory rate 20, blood pressure 96/54, oxygen saturation 98% on 5 L. Surgical services recommended continue holding eliquis at this time. Hemoglobin 7.9. Patient made short of breath. Patient denies chest pain. Patient denies nausea vomiting or diarrhea. Patient denies any urinary burning or frequency Objective - Vital Signs Vital signs: Vital Signs Temp 97.8 F 10/05/21 08:15 Pulse 98 10/05/21 08:15 Resp 20 10/05/21 08:15 BP 96/54 10/05/21 08:15 Pulse Ox 98 10/05/21 08:15 Intake & Output 10/04/21 10/05/21 10/05/21 18:59 06:59 18:59 Intake Total 240 300 Output Total 200 Balance 240 100 Weight 137.2 kg Intake: Oral 240 300 Output: Urine 200 Other: Voiding Method Urinal Toilet Urinal - Exam Head normocephalic Neck supple Lungs diminished bilaterally with crackles Heart regular rate and rhythm S1-S2, no rub or gallop Abdomen is soft nontender nondistended positive bowel sounds no hepatosplenomegaly Extremities +2 lower extremity edema. +2 upper extremity edema Neuro alert and orientated to 3 - Labs CBC & Chem 7: 10/05/21 07:06 10/05/21 07:06 Labs: Abnormal Lab Results - Last 24 Hours (Table) 10/04/21 10/04/21 10/04/21 Range/Units 07:09 07:09 11:15 RBC (4.30-5.90) m/uL Hgb (13.0-17.5) gm/dL Hct (39.0-53.0) % MCHC (31.0-37.0) g/dL RDW (11.5-15.5) % Nucleated RBCs 4 H (0-0) /100 WBC Sodium (137-145) mmol/L BUN (9-20) mg/dL Creatinine (0.66-1.25) mg/dL Glucose (74-99) mg/dL POC Glucose (mg/dL) 196 H (75-99) mg/dL Phosphorus (2.5-4.5) mg/dL Total Protein (6.3-8.2) g/dL Albumin (3.5-5.0) g/dL Procalcitonin 1.04 H (0.02-0.09) ng/mL 10/04/21 10/04/21 10/05/21 Range/Units 16:26 20:24 06:13 RBC (4.30-5.90) m/uL Hgb (13.0-17.5) gm/dL Hct (39.0-53.0) % MCHC (31.0-37.0) g/dL RDW (11.5-15.5) % Nucleated RBCs (0-0) /100 WBC Sodium (137-145) mmol/L BUN (9-20) mg/dL Creatinine (0.66-1.25) mg/dL Glucose (74-99) mg/dL POC Glucose (mg/dL) 178 H 191 H 206 H (75-99) mg/dL Phosphorus (2.5-4.5) mg/dL Total Protein (6.3-8.2) g/dL Albumin (3.5-5.0) g/dL Procalcitonin (0.02-0.09) ng/mL 10/05/21 10/05/21 Range/Units 07:06 07:06 RBC 2.82 L (4.30-5.90) m/uL Hgb 7.9 L (13.0-17.5) gm/dL Hct 27.9 L (39.0-53.0) % MCHC 28.3 L (31.0-37.0) g/dL RDW 22.1 H (11.5-15.5) % Nucleated RBCs (0-0) /100 WBC Sodium 136 L (137-145) mmol/L BUN 63 H (9-20) mg/dL Creatinine 5.03 H (0.66-1.25) mg/dL Glucose 134 H (74-99) mg/dL POC Glucose (mg/dL) (75-99) mg/dL Phosphorus 4.8 H (2.5-4.5) mg/dL Total Protein 6.1 L (6.3-8.2) g/dL Albumin 3.1 L (3.5-5.0) g/dL Procalcitonin (0.02-0.09) ng/mL Microbiology - Last 24 Hours (Table) 09/28/21 19:30 Blood Culture - Final Blood No Growth after 144 hours 09/28/21 19:15 Blood Culture - Final Blood No Growth after 144 hours Assessment and Plan Assessment: 1. Increased edema and dyspnea secondary to acute kidney injury. Status post hemodialysis catheter placement and initiation of hemodialysis 2. Hypotension. Maintained on Midirone 3. Hyponatremia. Nephrology services following 4. Ischemic cardiomyopathy status post pacemaker placement 5. Metabolic acidosis associated with acute kidney injury 6. Diabetes mellitus type 2 7. Hypothyroidism 8. 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 History of pulmonary embolism. Eliquis currently on hold due to GI bleed DVT prophylaxis SCDs due to plans of hemodialysis access placement. GI prophylaxis Protonix Nephrology, cardiology, surgical, infectious disease, pulmonary and vascular surgery consulted stastus post hemodialysis catheter placement in hemodialysis Continue holding eliquis per surgical services recommendation Repeat labs ordered
[2021-10-05] MEDS: ATORVASTATIN 10 MG TAB PO SCH (11:05)
[2021-10-05] MEDS: allopurinoL 300 MG TAB PO SCH (11:05)
[2021-10-05] MEDS: DOCUSATE 100 MG CAP PO SCH ×2 (11:06→21:00)
[2021-10-05] MEDS: MULTIVITAMINS, THERA 1 EACH TAB PO SCH (11:07)
[2021-10-05] MEDS: PANTOPRAZOLE 40 MG/10 ML VIAL IVP SCH ×2 (11:07→21:00)
[2021-10-05] MEDS: SODIUM BICARBONATE TAB 650 MG TAB PO SCH ×2 (11:10→21:00)
--- NOTE | 2021-10-05 11:51 | P.PN ---
Subjective Progress Note Date: 10/05/21 CHIEF COMPLAINT: Upper GI bleed HISTORY OF PRESENT ILLNESS: Patient denies any abdominal pain. He is having flatus. He did receive a Dulcolax suppository with no results. He denies any nausea or vomiting. He is tolerating renal diet. Patient status post EGD on 10/01/2021 which demonstrated bleeding gastric AVM, retained contents, gastritis, hiatal hernia and Schatzki's ring. Afebrile. WBC 9.2 hemoglobin 7.9 platelets 188 PHYSICAL EXAM: VITAL SIGNS: Reviewed. GENERAL: Well-developed in no acute distress. HEENT: No sclera icterus. Extraocular movements grossly intact. Moist buccal mucosa. Head is atraumatic, normocephalic. ABDOMEN: Soft. Nondistended. Nontender. NEUROLOGIC: Alert and oriented. Cranial nerves II through XII grossly intact. ASSESSMENT: 1. Upper GI bleed status post EGD with controlled bleeding with cauterization of small bleeding gastric AVM 2. Acute blood loss anemia secondary to GI bleed from bleeding AVM PLAN: -Soapsuds enema ordered -Continue supportive care -Continue monitor hemoglobin -Continue renal diet -Continue Protonix and Carafate -Continue Dulcolax suppository -Continue to hold anticoagulation -Continue stool softeners Physician Pharmacy Operations Specialist note has been reviewed by physician. Signing provider agrees with the documented findings, assessment, and plan of care. Objective - Vital Signs Vital signs: Vital Signs Temp 97.8 F 10/05/21 08:15 Pulse 98 10/05/21 08:15 Resp 20 10/05/21 08:15 BP 96/54 10/05/21 08:15 Pulse Ox 98 10/05/21 08:15 Intake & Output 10/04/21 10/05/21 10/05/21 18:59 06:59 18:59 Intake Total 240 300 Output Total 200 Balance 240 100 Weight 137.2 kg Intake: Oral 240 300 Output: Urine 200 Other: Voiding Method Urinal Toilet Urinal - Labs CBC & Chem 7: 10/05/21 07:06 10/05/21 07:06 Labs: Abnormal Lab Results - Last 24 Hours (Table) 10/04/21 10/04/21 10/04/21 Range/Units 07:09 16:26 20:24 RBC (4.30-5.90) m/uL Hgb (13.0-17.5) gm/dL Hct (39.0-53.0) % MCHC (31.0-37.0) g/dL RDW (11.5-15.5) % Nucleated RBCs 4 H (0-0) /100 WBC Sodium (137-145) mmol/L BUN (9-20) mg/dL Creatinine (0.66-1.25) mg/dL Glucose (74-99) mg/dL POC Glucose (mg/dL) 178 H 191 H (75-99) mg/dL Phosphorus (2.5-4.5) mg/dL Total Protein (6.3-8.2) g/dL Albumin (3.5-5.0) g/dL 10/05/21 10/05/21 10/05/21 Range/Units 06:13 07:06 07:06 RBC 2.82 L (4.30-5.90) m/uL Hgb 7.9 L (13.0-17.5) gm/dL Hct 27.9 L (39.0-53.0) % MCHC 28.3 L (31.0-37.0) g/dL RDW 22.1 H (11.5-15.5) % Nucleated RBCs (0-0) /100 WBC Sodium 136 L (137-145) mmol/L BUN 63 H (9-20) mg/dL Creatinine 5.03 H (0.66-1.25) mg/dL Glucose 134 H (74-99) mg/dL POC Glucose (mg/dL) 206 H (75-99) mg/dL Phosphorus 4.8 H (2.5-4.5) mg/dL Total Protein 6.1 L (6.3-8.2) g/dL Albumin 3.1 L (3.5-5.0) g/dL Microbiology - Last 24 Hours (Table) 09/28/21 19:30 Blood Culture - Final Blood No Growth after 144 hours 09/28/21 19:15 Blood Culture - Final Blood No Growth after 144 hours
--- NOTE | 2021-10-05 12:44 | P.PN ---
Subjective Progress Note Date: 10/04/21 Principal diagnosis: Leukocytosis and question of cellulitis Patient is a 76-year-old male presented to hospital with decreasing shortness of breath in this patient noticed to have evidence of renal failure and fluid overload with some swelling to lower extremities and mildly elevated white count and question of lower extremity cellulitis. Patient is status post dialysis catheter placement and was started on dialysis 09/30/2021. On today's evaluation that is 10/04/2021, The patient remains to be afebrile, the patient is breathing slightly comfortably today, repeat denies having any chest pain occasional cough no abdominal pain and denies pain to the lower extre mity Objective - Vital Signs Vital signs: Vital Signs Temp 98.0 F 10/04/21 12:00 Pulse 75 10/04/21 12:00 Resp 18 10/04/21 12:00 BP 90/50 10/04/21 12:00 Pulse Ox 93 L 10/04/21 12:00 Intake & Output 10/03/21 10/04/21 10/04/21 18:59 06:59 18:59 Intake Total 1090 10 120 Output Total 2700 Balance -1610 10 120 Weight 136.2 kg Intake: IV 10 10 0.9 10 Invasive Line 5 10 Oral 780 120 Hemodialysis 300 Output: Urine 200 Hemodialysis 2500 Other: Voiding Method Urinal Urinal Urinal # Voids 0 - Exam GENERAL DESCRIPTION: An elderly male lying in bed in no distress RESPIRATORY SYSTEM: Unlabored breathing , decreased breath sounds at bases HEART: S1 S2 regular rate and rhythm , ABDOMEN: Soft , no tenderness EXTREMITIES: Diffuse swelling to his lower extremity and some chronic changes - Labs CBC & Chem 7: 10/05/21 07:06 10/05/21 07:06 Labs: Abnormal Lab Results - Last 24 Hours (Table) 10/03/21 10/03/21 10/04/21 Range/Units 16:16 19:55 05:59 RBC (4.30-5.90) m/uL Hgb (13.0-17.5) gm/dL Hct (39.0-53.0) % MCHC (31.0-37.0) g/dL RDW (11.5-15.5) % Sodium (137-145) mmol/L Carbon Dioxide (22-30) mmol/L BUN (9-20) mg/dL Creatinine (0.66-1.25) mg/dL Glucose (74-99) mg/dL POC Glucose (mg/dL) 221 H 242 H 172 H (75-99) mg/dL C-Reactive Protein (<1.0) mg/dL Total Protein (6.3-8.2) g/dL Albumin (3.5-5.0) g/dL Procalcitonin (0.02-0.09) ng/mL 10/04/21 10/04/21 10/04/21 Range/Units 07:09 07:09 07:09 RBC 2.70 L (4.30-5.90) m/uL Hgb 7.9 L (13.0-17.5) gm/dL Hct 26.3 L (39.0-53.0) % MCHC 29.9 L (31.0-37.0) g/dL RDW 20.5 H (11.5-15.5) % Sodium 136 L (137-145) mmol/L Carbon Dioxide 21 L (22-30) mmol/L BUN 58 H (9-20) mg/dL Creatinine 4.25 H (0.66-1.25) mg/dL Glucose 163 H (74-99) mg/dL POC Glucose (mg/dL) (75-99) mg/dL C-Reactive Protein 6.0 H (<1.0) mg/dL Total Protein 6.2 L (6.3-8.2) g/dL Albumin 3.2 L (3.5-5.0) g/dL Procalcitonin 1.04 H (0.02-0.09) ng/mL 10/04/21 Range/Units 11:15 RBC (4.30-5.90) m/uL Hgb (13.0-17.5) gm/dL Hct (39.0-53.0) % MCHC (31.0-37.0) g/dL RDW (11.5-15.5) % Sodium (137-145) mmol/L Carbon Dioxide (22-30) mmol/L BUN (9-20) mg/dL Creatinine (0.66-1.25) mg/dL Glucose (74-99) mg/dL POC Glucose (mg/dL) 196 H (75-99) mg/dL C-Reactive Protein (<1.0) mg/dL Total Protein (6.3-8.2) g/dL Albumin (3.5-5.0) g/dL Procalcitonin (0.02-0.09) ng/mL Microbiology - Last 24 Hours (Table) 09/28/21 19:15 Blood Culture - Preliminary Blood No Growth after 120 hours 09/28/21 19:30 Blood Culture - Preliminary Blood No Growth after 120 hours Assessment and Plan (1) Leukocytosis Current Visit: Yes Status: Acute Code(s): D72.829 - ELEVATED WHITE BLOOD CELL COUNT, UNSPECIFIED SNOMED Code(s): 102920906 (2) Swelling of lower extremity Current Visit: Yes Status: Acute Code(s): M79.89 - OTHER SPECIFIED SOFT TISSUE DISORDERS SNOMED Code(s): 977123887 Plan: 1patient presented to hospital with increasing shortness of breath and did have evidence of lower extremity edema but no definite cellulitis was noticed, and more likely related to his underlying renal failure for the patient was started on dialysis, clinically not behaving as Pneumonia, the patient white count has normalized without antibiotic therapy hence we will continue monitor the patient closely off antibiotics Time with Patient: Less than 30
--- NOTE | 2021-10-05 12:46 | P.PN ---
Subjective Progress Note Date: 10/05/21 Principal diagnosis: Leukocytosis and question of cellulitis Patient is a 76-year-old male presented to hospital with decreasing shortness of breath in this patient noticed to have evidence of renal failure and fluid overload with some swelling to lower extremities and mildly elevated white count and question of lower extremity cellulitis. Patient is status post dialysis catheter placement and was started on dialysis 09/30/2021. On today's evaluation that is 10/05/2021, The patient denies having any fever or any chills, the patient is breathing comfortably on nasal cannula oxygen, the patient denies having any chest pain denies any cough expectoration abdominal pain some discomfort with lower extremity but no redness or any drainage Objective - Vital Signs Vital signs: Vital Signs Temp 97.5 F L 10/05/21 11:55 Pulse 70 10/05/21 12:01 Resp 20 10/05/21 11:55 BP 101/52 10/05/21 11:55 Pulse Ox 94 L 10/05/21 11:55 Intake & Output 10/04/21 10/05/21 10/05/21 18:59 06:59 18:59 Intake Total 240 300 Output Total 200 Balance 240 100 Weight 137.2 kg Intake: Oral 240 300 Output: Urine 200 Other: Voiding Method Urinal Toilet Urinal - Exam GENERAL DESCRIPTION: An elderly male lying in bed in no distress RESPIRATORY SYSTEM: Unlabored breathing , decreased breath sounds at bases HEART: S1 S2 regular rate and rhythm , ABDOMEN: Soft , no tenderness EXTREMITIES: Diffuse swelling to his lower extremity and some chronic changes - Labs CBC & Chem 7: 10/05/21 07:06 10/05/21 07:06 Labs: Abnormal Lab Results - Last 24 Hours (Table) 10/04/21 10/04/21 10/04/21 Range/Units 07:09 16:26 20:24 RBC (4.30-5.90) m/uL Hgb (13.0-17.5) gm/dL Hct (39.0-53.0) % MCHC (31.0-37.0) g/dL RDW (11.5-15.5) % Nucleated RBCs 4 H (0-0) /100 WBC Sodium (137-145) mmol/L BUN (9-20) mg/dL Creatinine (0.66-1.25) mg/dL Glucose (74-99) mg/dL POC Glucose (mg/dL) 178 H 191 H (75-99) mg/dL Phosphorus (2.5-4.5) mg/dL Total Protein (6.3-8.2) g/dL Albumin (3.5-5.0) g/dL 10/05/21 10/05/21 10/05/21 Range/Units 06:13 07:06 07:06 RBC 2.82 L (4.30-5.90) m/uL Hgb 7.9 L (13.0-17.5) gm/dL Hct 27.9 L (39.0-53.0) % MCHC 28.3 L (31.0-37.0) g/dL RDW 22.1 H (11.5-15.5) % Nucleated RBCs (0-0) /100 WBC Sodium 136 L (137-145) mmol/L BUN 63 H (9-20) mg/dL Creatinine 5.03 H (0.66-1.25) mg/dL Glucose 134 H (74-99) mg/dL POC Glucose (mg/dL) 206 H (75-99) mg/dL Phosphorus 4.8 H (2.5-4.5) mg/dL Total Protein 6.1 L (6.3-8.2) g/dL Albumin 3.1 L (3.5-5.0) g/dL Microbiology - Last 24 Hours (Table) 09/28/21 19:30 Blood Culture - Final Blood No Growth after 144 hours 09/28/21 19:15 Blood Culture - Final Blood No Growth after 144 hours Assessment and Plan (1) Leukocytosis Current Visit: Yes Status: Acute Code(s): D72.829 - ELEVATED WHITE BLOOD CELL COUNT, UNSPECIFIED SNOMED Code(s): 392726104 (2) Swelling of lower extremity Current Visit: Yes Status: Acute Code(s): M79.89 - OTHER SPECIFIED SOFT TISSUE DISORDERS SNOMED Code(s): 416223706 Plan: 1patient presented to hospital with increasing shortness of breath and did have evidence of lower extremity edema but no definite cellulitis was noticed, and mo re likely related to his underlying renal failure for the patient was started on dialysis, The patient isclinically not behaving as Pneumonia Or lower extremity cellulitis, the patient white count has normalized without antibiotic therapy hence we will continue monitor the patient closely off antibiotics Time with Patient: Less than 30
[2021-10-05 13:30] LABS: Mixed Population RBC Present; Polychromasia Present
--- NOTE | 2021-10-05 14:30 | P.PN ---
Subjective Progress Note Date: 10/05/21 Principal diagnosis: Acute on chronic diastolic CHF 76-year-old male that was admitted to the emergency department back on October 08. He apparently came into the ER complaining of weakness. The patient has a history of congestive heart failure, diabetes, and COPD. Apparently for 3 weeks prior to admission, the patient admits to progressive and increasing shortness of breath. He also had a cough, which is mostly nonproductive. He denied any chest pain or pressure. There are no palpitations. The patient also denied any fever or chills. He denied any GI complaints such as nausea, vomiting, and diarrhea. He also denied any abdominal pain. He apparently did gain quite a bit of weight over the weeks or so prior to admission. We were only consulted last night, as the patient apparently was having significant difficulty breathing, and I placed the patient on BiPAP. He did seem to do well on BiPAP, and states that it made him feel better. Labs today include a white count of 9.8, hemoglobin 6.7, hematocrit 22.3, and platelet count of 194,000. There was mention, the patient will receive a unit of blood. In addition, sodium 133, potassium 4.4, chlorides 100, CO2 21, anion gap 12, BUN 82, and creatinine 4.47. Albumin is 3.0. Blood cultures are negative. Chest x-ray from September 30, shows a recent placement of a right jugular central venous catheter. There does appear to be a retrocardiac density, effusion, atelectasis, and/or infiltrate. On 10/03/2021, seeing the patient for a follow-up. The patient is undergoing hemodialysis and the patient is stable in terms of his respiratory status. Currently is on 6 L O2 by nasal cannula. No signs of any respiratory distress. The patient had an acute kidney injury along with multitude of other comorbid ities as documented in the medical records. He is not having any cough, sputum production no chest tightness or wheezing. He is breathing comfortably at this point in time. He is currently afebrile. White cell count is at 11.8 with hemoglobin of 7.8, BUN is at 84 with a creatinine of 5.32 and a glucose of 149 and a sodium level of 135. Blood cultures of been negative. The patient had a component of an acute on chronic diastolic heart failure and he is on status is improving with hemodialysis. He was noted to be somewhat hypotensive and the patient was started on midodrine. He is on no antibiotic coverage for now. No other significant events overnight otherwise. 10/04/2021, seeing the patient for a follow-up. The patient is resting comfortably in bed. The patient is currently on oxygen at 5 L O2 nasal cannula. Breathing is nonlabored. The patient is afebrile the patient is h emodynamically stable. Noted the patient has not encountered any further episodes of GI bleed. His blood work, the patient has a hemoglobin of 7.9 which is essentially stable compared to yesterday. The patient also has a white cell count of 9.2. He was given IV Lasix and the patient is producing some urine output. On today's evaluation, BUN is a 58 with a creatinine of 4.25. No hemodialysis to be done today. Sodium is at 136 with a potassium level of 4.4. Rest of the LFTs are all essentially within normal limits. Pro-calcitonin level is at 1.04 nephrology is on the case. The patient on oral bicarb supplements. The patient is also on Synthroid and NovoLog slide scale coverage. The patient is being given Ativan as for chronic anemia. No anticoagulants for now. The patient was taken off the Eliquis using a recent GI bleed. On 10/05/2021 patient seen in follow-up on selective care unit, he is resting comfortably in bed, he is currently on 5 L of oxygen with pulse ox of 94-98%, breathing comfortably, patient was not dialyzed yesterday, he is voiding, he is in -1.6 L net fluid balance overall in the last 24 hours. Still fluid overloaded, with a generalized edema. Today's labs have been reviewed, there has been worsening his renal function, and his BUN of 63 and creatinine of 5.03, and the plan is to proceed with hemodialysis today. Nephrology is following, his electrolytes are unremarkable. His white count is 9.5, hemoglobin is 7.9, platelet count is 188. Pro-calcitonin level was 1.04. Blood cultures have shown no growth. There has been no active bleeding, no abdominal pain. His anticoagulation remains on hold per surgical recommendations. Patient is myke erating oral diet. Objective - Vital Signs Vital signs: Vital Signs Temp 97.5 F L 10/05/21 11:55 Pulse 70 10/05/21 12:01 Resp 20 10/05/21 11:55 BP 101/52 10/05/21 11:55 Pulse Ox 94 L 10/05/21 11:55 Intake & Output 10/04/21 10/05/21 10/05/21 18:59 06:59 18:59 Intake Total 240 300 Output Total 200 400 Balance 240 100 -400 Weight 137.2 kg Intake: Oral 240 300 Output: Urine 200 400 Other: Voiding Method Urinal Toilet Toilet Urinal Urinal - Exam GENERAL EXAM: Alert, very pleasant, 76-year-old white male, on 5 L of oxygen, resting comfortably in bed, comfortable in no apparent distress. HEAD: Normocephalic/atraumatic. EYES: Normal reaction of pupils, equal size. Conjunctiva pink, sclera white. NOSE: Clear with pink turbinates. THROAT: No erythema or exudates. NECK: No masses, no JVD, no thyroid enlargement, no adenopathy. CHEST: No chest wall deformity. Symmetrical expansion. LUNGS: Equal air entry with diminished breath sounds with some bilateral crackles CVS: Regular rate and rhythm, normal S1 and S2, no gallops, no murmurs, no rubs ABDOMEN: Soft, nontender. No hepatosplenomegaly, normal bowel sounds, no g uarding or rigidity. EXTREMITIES: No clubbing, generalized edema, no cyanosis, 2+ pulses and upper a nd lower extremities. MUSCULOSKELETAL: Muscle strength and tone normal. SPINE: No scoliosis or deformity SKIN: No rashes CENTRAL NERVOUS SYSTEM: Alert and oriented -3. No focal deficits, tone is nor mal in all 4 extremities. PSYCHIATRIC: Alert and oriented -3. Appropriate affect. Intact judgment and insight. - Labs CBC & Chem 7: 10/05/21 07:06 10/05/21 07:06 Labs: Abnormal Lab Results - Last 24 Hours (Table) 10/04/21 10/04/21 10/05/21 Range/Units 16:26 20:24 06:13 RBC (4.30-5.90) m/uL Hgb (13.0-17.5) gm/dL Hct (39.0-53.0) % MCHC (31.0-37.0) g/dL RDW (11.5-15.5) % Sodium (137-145) mmol/L BUN (9-20) mg/dL Creatinine (0.66-1.25) mg/dL Glucose (74-99) mg/dL POC Glucose (mg/dL) 178 H 191 H 206 H (75-99) mg/dL Phosphorus (2.5-4.5) mg/dL Total Protein (6.3-8.2) g/dL Albumin (3.5-5.0) g/dL 10/05/21 10/05/21 Range/Units 07:06 07:06 RBC 2.82 L (4.30-5.90) m/uL Hgb 7.9 L (13.0-17.5) gm/dL Hct 27.9 L (39.0-53.0) % MCHC 28.3 L (31.0-37.0) g/dL RDW 22.1 H (11.5-15.5) % Sodium 136 L (137-145) mmol/L BUN 63 H (9-20) mg/dL Creatinine 5.03 H (0.66-1.25) mg/dL Glucose 134 H (74-99) mg/dL POC Glucose (mg/dL) (75-99) mg/dL Phosphorus 4.8 H (2.5-4.5) mg/dL Total Protein 6.1 L (6.3-8.2) g/dL Albumin 3.1 L (3.5-5.0) g/dL Microbiology - Last 24 Hours (Table) 09/28/21 19:30 Blood Culture - Final Blood No Growth after 144 hours 09/28/21 19:15 Blood Culture - Final Blood No Growth after 144 hours Assessment and Plan Plan: Assessment: #1. Acute hypoxic respiratory failure related to acute exacerbation of chronic diastolic CHF, currently on oral diuretics, and patient has been getting hemodialysis #2. Acute on chronic kidney disease #3. Acute GI blood loss anemia, status post EGD on 10/01/2021 with evidence of bleeding gastric AVM, retained contents, gastritis, hiatal hernia and Schatzki's ring #4. Non-Anion gap metabolic acidosis secondary to renal failure #5. Hypotension improved #6. History of chronic A. fib status post pacemaker insertion, currently off anticoagulation for recent GI bleeding #7. Diabetes mellitus type 2 #8. History of COPD #9. History of hyperlipidemia #10. History of sleep apnea #11. History of gout #12. Prior history of MRSA and vancomycin-resistant enterococcus infections #13. Recent history of pulmonary embolism currently off anticoagulation due to GI bleeding patient remains on Eliquis Plan: Hemodialysis per nephrology recommendations, the plan is to dialyze today No worsening dyspnea, Still has significant generalized edema Anticoagulation remains on hold per surgical recommendations in view of bleeding gastric AVMs No active bleeding, hemodynamically patient is stable, he is on iron supplements His COPD stable Continue breathing treatments Pulmonary/critical care service will sign off and follow on as-needed basis I have personally seen and examined the patient, performed the documentation and the assessment and plan as written. Number of minutes spent on the visit: [10] I have personally seen and examined the patient and reviewed the documentation. I performed a joint evaluation with the nurse practitioner in this evaluation was done more than 20 minutes. I fully agree with the documentation above and the plan of care. Time with Patient: Less than 30
[2021-10-05 16:53] LABS: Glucose,Whole Blood 155 mg/dL (75-99)
[2021-10-05 20:08] LABS: Glucose,Whole Blood 206 mg/dL (75-99)
[2021-10-06 06:08] LABS: Glucose,Whole Blood 190 mg/dL (75-99)
[2021-10-06] MEDS: INSULIN ASPART (NovoLOG) 100 UNIT/ML VIAL SQ SCH ×4 (06:25→20:15)
[2021-10-06] MEDS: SUCRALFATE 1 GM TAB PO SCH ×2 (06:25→18:08)
[2021-10-06] MEDS: LEVOTHYROXINE 50 MCG TAB PO SCH (06:25)
[2021-10-06] MEDS: SYMBICORT 160-4.5 MCG INHALER INHALATION SCH ×2 (07:54→20:23)
[2021-10-06] MEDS: IPRATROPIUM-ALBUTEROL 3 ML NEB INHALATION SCH ×4 (07:54→20:23)
[2021-10-06 07:59] LABS: Anisocytosis Moderate; Basophils % (A) 0 %; Eosinophils # (A) 0.2 k/uL (0-0.7); Eosinophils % (A) 2 %; HGB 8.4 gm/dL (13.0-17.5); Hypochromasia Marked; Lymphocytes # (A) 1.1 k/uL (1.0-4.8); Lymphocytes % (A) 11 %; MCH 29.5 pg (25.0-35.0); MCHC 29.9 g/dL (31.0-37.0); MCV 98.6 fL (80.0-100.0); Macrocytosis Moderate; Mean Platelet Volume 9.1; Monocytes # (A) 0.7 k/uL (0-1.0); Monocytes % (A) 7 %; Neutrophils % (A) 78 %; Platelet Count 159 k/uL (150-450); Poikilocytosis Moderate; RBC 2.84 m/uL (4.30-5.90); RDW 22.9 % (11.5-15.5); WBC 10.3 k/uL (3.8-10.6)
[2021-10-06 08:23] LABS: Albumin 3.1 g/dL (3.5-5.0); Calcium 8.3 mg/dL (8.4-10.2); Magnesium 2.1 mg/dL (1.6-2.3); Potassium 4.2 mmol/L (3.5-5.1); Total Bilirubin 1.4 mg/dL (0.2-1.3); Total Protein 6.1 g/dL (6.3-8.2)
--- NOTE | 2021-10-06 09:22 | P.PN ---
Subjective Patient is seen in follow-up for acute kidney injury. Started on hemodialysis 09/30/2021. No problems with dialysis. Tolerated 2.5 L ultrafiltration yesterday. Urine output remains low. States he voided about 300 mL yesterday during the day. On 5 L high flow cannula. Oral intake fair. Vital signs are stable. General: Awake and alert. HEENT: On nasal cannula. LUNGS: Breath sounds decreased. HEART: Rate and Rhythm are regular. ABDOMEN: Soft, obese. EXTREMITITES: 1+ edema. Chronic changes noted. Objective - Vital Signs Vital signs: Vital Signs Temp 97.6 F 10/05/21 20:00 Pulse 94 10/06/21 08:07 Resp 18 10/06/21 03:42 BP 115/68 10/06/21 03:42 Pulse Ox 95 10/06/21 03:42 Intake & Output 10/05/21 10/06/21 10/06/21 18:59 06:59 18:59 Intake Total 300 450 Output Total 2900 300 Balance -2600 150 Intake: Blood Product 450 Hemodialysis 300 Output: Urine 400 300 Hemodialysis 2500 Other: Voiding Method Toilet Toilet Urinal # Voids 1 # Bowel Movements 1 - Labs CBC & Chem 7: 10/06/21 07:28 10/06/21 07:28 Labs: Abnormal Lab Results - Last 24 Hours (Table) 10/05/21 10/05/21 10/06/21 Range/Units 16:52 20:06 06:06 RBC (4.30-5.90) m/uL Hgb (13.0-17.5) gm/dL Hct (39.0-53.0) % MCHC (31.0-37.0) g/dL RDW (11.5-15.5) % Sodium (137-145) mmol/L Chloride (98-107) mmol/L BUN (9-20) mg/dL Creatinine (0.66-1.25) mg/dL Glucose (74-99) mg/dL POC Glucose (mg/dL) 155 H 206 H 190 H (75-99) mg/dL Calcium (8.4-10.2) mg/dL Total Bilirubin (0.2-1.3) mg/dL Total Protein (6.3-8.2) g/dL Albumin (3.5-5.0) g/dL 10/06/21 10/06/21 Range/Units 07:28 07:28 RBC 2.84 L (4.30-5.90) m/uL Hgb 8.4 L (13.0-17.5) gm/dL Hct 28.0 L (39.0-53.0) % MCHC 29.9 L (31.0-37.0) g/dL RDW 22.9 H (11.5-15.5) % Sodium 131 L (137-145) mmol/L Chloride 97 L (98-107) mmol/L BUN 47 H (9-20) mg/dL Creatinine 4.21 H (0.66-1.25) mg/dL Glucose 133 H (74-99) mg/dL POC Glucose (mg/dL) (75-99) mg/dL Calcium 8.3 L (8.4-10.2) mg/dL Total Bilirubin 1.4 H (0.2-1.3) mg/dL Total Protein 6.1 L (6.3-8.2) g/dL Albumin 3.1 L (3.5-5.0) g/dL Assessment and Plan Plan: Assessment: 1. Acute kidney injury secondary to ATN secondary to hypotension and cardiorenal syndrome. No evidence of hydronephrosis. UA benign. Started on hemodialysis 09/30/2021 due to concern for uremia as well as oliguria. Has permacath. Baseline creatinine 1-1.2 from May 2021. 2. Acute on chronic diastolic CHF with severe tricuspid regurgitation and mild to moderate pulmonary hypertension. 3. Acute GI bleed status post EGD. Bleeding gastric AVM was noted. Hemoglobin 8.4 today. On Aranesp. Status post blood transfusion and IV iron this admission. 4. Hypotension. Cortisol level not low. On midodrine. 5. Diabetes mellitus. 6. Metabolic acidosis secondary to acute kidney injury. On oral bicarb. B vira. 7. Hypervolemic hyponatremia. Plan: Hemodialysis tomorrow. He will be maintained on Sunday schedule. Continue to monitor renal function and urine output. Monitor for renal recovery. Phosphorus 4.8 dated 10/05/2021. Maintain torsemide. Hold midodrine for systolic blood pressure greater than 110.
[2021-10-06] MEDS: MIDODRINE 5 MG TAB PO SCH ×4 (10:03→20:13)
[2021-10-06] MEDS: SODIUM BICARBONATE TAB 650 MG TAB PO SCH ×2 (10:03→20:13)
[2021-10-06] MEDS: PANTOPRAZOLE 40 MG/10 ML VIAL IVP SCH ×2 (10:03→20:13)
[2021-10-06] MEDS: DOCUSATE 100 MG CAP PO SCH ×2 (10:03→20:13)
[2021-10-06] MEDS: allopurinoL 300 MG TAB PO SCH (10:03)
[2021-10-06] MEDS: ATORVASTATIN 10 MG TAB PO SCH (10:03)
[2021-10-06] MEDS: TORSEMIDE 20 MG TAB PO SCH (10:04)
[2021-10-06] MEDS: MULTIVITAMINS, THERA 1 EACH TAB PO SCH (10:05)
--- NOTE | 2021-10-06 11:04 | P.PN ---
Subjective Progress Note Date: 10/06/21 CHIEF COMPLAINT: Upper GI bleed HISTORY OF PRESENT ILLNESS: Patient denies any abdominal pain. He is com plaining of rectal pain. He reports that he had to be disimpacted. He did have a small bowel movement yesterday. He did note some bright red blood noted on his depends which she felt was due to trauma from needing to be disimpacted. Hemoglobin has gone up from 7.9-8.4. He did refuse of the soapsuds enema. He is tolerating diet. Patient status post EGD on 10/01/2021 which demonstrated bleeding gastric AVM, retained contents, gastritis, hiatal hernia and Schatzki's ring. Afebrile. WBC 10.3 hemoglobin 7.9 up to 8.4 platelets 159 PHYSICAL EXAM: VITAL SIGNS: Reviewed. GENERAL: Well-developed in no acute distress. HEENT: No sclera icterus. Extraocular movements grossly intact. Moist buccal mucosa. Head is atraumatic, normocephalic. ABDOMEN: Soft. Nondistended. Nontender. NEUROLOGIC: Alert and oriented. Cranial nerves II through XII grossly intact. ASSESSMENT: 1. Upper GI bleed status post EGD with controlled bleeding with cauterization of small bleeding gastric AVM 2. Acute blood loss anemia secondary to GI bleed from bleeding AVM PLAN: -Continue Dulcolax suppository -Continue supportive care -Continue monitor hemoglobin -Continue renal diet -Continue Protonix and Carafate -Continue to hold anticoagulation -Continue stool softeners Physician Marine Engine Mechanic note has been reviewed by physician. Signing provider agrees with the documented findings, assessment, and plan of care. I have personally seen and examined the patient, reviewed the SUPERVISOR [employer]IDE [employer]SEMBL[employer] /PAs history, exam and MDM and agree with the assessment and plan as written. Based on total visit time, I have performed more than 50% of the visit. As above: Patient had bowel movements after disimpaction and suppository. No melanotic stools. We'll sign off at this point. Please call if needed. Objective - Vital Signs Vital signs: Vital Signs Temp 97.6 F 10/05/21 20:00 Pulse 94 10/06/21 08:07 Resp 18 10/06/21 03:42 BP 115/68 10/06/21 03:42 Pulse Ox 95 03/17/22 03:42 Intake & Output 10/05/21 10/06/21 10/06/21 18:59 06:59 18:59 Intake Total 300 450 Output Total 2900 300 Balance -2600 150 Intake: Blood Product 450 Hemodialysis 300 Output: Urine 400 300 Hemodialysis 2500 Other: Voiding Method Toilet Toilet Urinal # Voids 1 # Bowel Movements 1 - Labs CBC & Chem 7: 10/06/21 07:28 10/06/21 07:28 Labs: Abnormal Lab Results - Last 24 Hours (Table) 10/05/21 10/05/21 10/06/21 Range/Units 16:52 20:06 06:06 RBC (4.30-5.90) m/uL Hgb (13.0-17.5) gm/dL Hct (39.0-53.0) % MCHC (31.0-37.0) g/dL RDW (11.5-15.5) % Sodium (137-145) mmol/L Chloride (98-107) mmol/L BUN (9-20) mg/dL Creatinine (0.66-1.25) mg/dL Glucose (74-99) mg/dL POC Glucose (mg/dL) 155 H 206 H 190 H (75-99) mg/dL Calcium (8.4-10.2) mg/dL Total Bilirubin (0.2-1.3) mg/dL Total Protein (6.3-8.2) g/dL Albumin (3.5-5.0) g/dL 10/06/21 10/06/21 Range/Units 07:28 07:28 RBC 2.84 L (4.30-5.90) m/uL Hgb 8.4 L (13.0-17.5) gm/dL Hct 28.0 L (39.0-53.0) % MCHC 29.9 L (31.0-37.0) g/dL RDW 22.9 H (11.5-15.5) % Sodium 131 L (137-145) mmol/L Chloride 97 L (98-107) mmol/L BUN 47 H (9-20) mg/dL Creatinine 4.21 H (0.66-1.25) mg/dL Glucose 133 H (74-99) mg/dL POC Glucose (mg/dL) (75-99) mg/dL Calcium 8.3 L (8.4-10.2) mg/dL Total Bilirubin 1.4 H (0.2-1.3) mg/dL Total Protein 6.1 L (6.3-8.2) g/dL Albumin 3.1 L (3.5-5.0) g/dL
[2021-10-06 11:50] LABS: Polychromasia Present
[2021-10-06 11:59] LABS: Glucose,Whole Blood 201 mg/dL (75-99)
[2021-10-06 12:26] VITALS: BMI 42.2
[2021-10-06] MEDS ORDERED: MAGNESIUM CITRATE 296 ML BOTTLE PO ONE (14:00)
[2021-10-06] MEDS: bisacodyL 10 MG SUPP RECTAL SCH (14:39)
[2021-10-06 16:24] LABS: Glucose,Whole Blood 161 mg/dL (75-99)
--- NOTE | 2021-10-06 17:06 | P.PN ---
Subjective Progress Note Date: 10/06/21 Principal diagnosis: Leukocytosis and question of cellulitis Patient is a 76-year-old male presented to hospital with decreasing shortness of breath in this patient noticed to have evidence of renal failure and fluid overload with some swelling to lower extremities and mildly elevated white count and question of lower extremity cellulitis. Patient is status post dialysis catheter placement and was started on dialysis 09/30/2021. On today's evaluation that is 10/06/2021, The patient remains to be afebrile, the patient is breathing comfortably on nasal cannula oxygen, the patient denies having any chest pain denies any cough , no abdominal pain , denies significant pain to the lower extremity but no redness or any drainage Objective - Vital Signs Vital signs: Vital Signs Temp 97.6 F 10/05/21 20:00 Pulse 100 10/06/21 12:00 Resp 18 10/06/21 03:42 BP 115/68 10/06/21 03:42 Pulse Ox 95 10/06/21 03:42 Intake & Output 10/05/21 10/06/21 10/06/21 18:59 06:59 18:59 Intake Total 300 450 Output Total 2900 300 Balance -2600 150 Weight 137.2 kg Intake: Blood Product 450 Hemodialysis 300 Output: Urine 400 300 Hemodialysis 2500 Other: Voiding Method Toilet Toilet Urinal # Voids 1 # Bowel Movements 1 - Exam GENERAL DESCRIPTION: An elderly male lying in bed in no distress RESPIRATORY SYSTEM: Unlabored breathing , decreased breath sounds at bases HEART: S1 S2 regular rate and rhythm , ABDOMEN: Soft , no tenderness EXTREMITIES: Diffuse swelling to his lower extremity and some chronic changes - Labs CBC & Chem 7: 10/06/21 07:28 10/06/21 07:28 Labs: Abnormal Lab Results - Last 24 Hours (Table) 10/05/21 10/05/21 10/06/21 Range/Units 16:52 20:06 06:06 RBC (4.30-5.90) m/uL Hgb (13.0-17.5) gm/dL Hct (39.0-53.0) % MCHC (31.0-37.0) g/dL RDW (11.5-15.5) % Neutrophils # (1.3-7.7) k/uL Sodium (137-145) mmol/L Chloride (98-107) mmol/L BUN (9-20) mg/dL Creatinine (0.66-1.25) mg/dL Glucose (74-99) mg/dL POC Glucose (mg/dL) 155 H 206 H 190 H (75-99) mg/dL Calcium (8.4-10.2) mg/dL Total Bilirubin (0.2-1.3) mg/dL Total Protein (6.3-8.2) g/dL Albumin (3.5-5.0) g/dL 10/06/21 10/06/21 10/06/21 Range/Units 07:28 07:28 11:55 RBC 2.84 L (4.30-5.90) m/uL Hgb 8.4 L (13.0-17.5) gm/dL Hct 28.0 L (39.0-53.0) % MCHC 29.9 L (31.0-37.0) g/dL RDW 22.9 H (11.5-15.5) % Neutrophils # 8.0 H (1.3-7.7) k/uL Sodium 131 L (137-145) mmol/L Chloride 97 L (98-107) mmol/L BUN 47 H (9-20) mg/dL Creatinine 4.21 H (0.66-1.25) mg/dL Glucose 133 H (74-99) mg/dL POC Glucose (mg/dL) 201 H (75-99) mg/dL Calcium 8.3 L (8.4-10.2) mg/dL Total Bilirubin 1.4 H (0.2-1.3) mg/dL Total Protein 6.1 L (6.3-8.2) g/dL Albumin 3.1 L (3.5-5.0) g/dL Assessment and Plan (1) Leukocytosis Current Visit: Yes Status: Acute Code(s): D72.829 - ELEVATED WHITE BLOOD CELL COUNT, UNSPECIFIED SNOMED Code(s): 059879403 (2) Swelling of lower extremity Current Visit: Yes Status: Acute Code(s): M79.89 - OTHER SPECIFIED SOFT TISSUE DISORDERS SNOMED Code(s): 790230520 Plan: 1patient presented to hospital with increasing shortness of breath and did have evidence of lower extremity edema but no definite cellulitis was noticed, and more likely related to his underlying renal failure for the patient was started on dialysis, The patient is clinically not behaving as Pneumonia Or lower extremity cellulitis, the patient white count has normalized without antibiotic therapy, there is no need for antibiotic therapy, infectious diseases will sign off please call back if any question regarding his infectious disease care Time with Patient: Less than 30
[2021-10-06 20:13] LABS: Glucose,Whole Blood 216 mg/dL (75-99)
[2021-10-07 06:13] LABS: Glucose,Whole Blood 161 mg/dL (75-99)
[2021-10-07] MEDS: SUCRALFATE 1 GM TAB PO SCH (06:26)
[2021-10-07] MEDS: LEVOTHYROXINE 50 MCG TAB PO SCH (06:26)
[2021-10-07] MEDS: INSULIN ASPART (NovoLOG) 100 UNIT/ML VIAL SQ SCH ×2 (06:26→12:36)
[2021-10-07 08:07] LABS: Anisocytosis Moderate; Basophils % (A) 0 %; Eosinophils # (A) 0.2 k/uL (0-0.7); Eosinophils % (A) 2 %; HCT 28.8 % (39.0-53.0); HGB 8.4 gm/dL (13.0-17.5); Hypochromasia Marked; Lymphocytes # (A) 1.7 k/uL (1.0-4.8); Lymphocytes % (A) 15 %; MCH 28.9 pg (25.0-35.0); MCHC 29.2 g/dL (31.0-37.0); MCV 99.1 fL (80.0-100.0); Macrocytosis Moderate; Mean Platelet Volume 8.7; Monocytes # (A) 0.8 k/uL (0-1.0); Monocytes % (A) 8 %; Neutrophils # (A) 7.8 k/uL (1.3-7.7); Neutrophils % (A) 72 %; Platelet Count 166 k/uL (150-450); Poikilocytosis Moderate; RBC 2.91 m/uL (4.30-5.90); RDW 22.7 % (11.5-15.5); WBC 10.9 k/uL (3.8-10.6)
[2021-10-07 08:21] LABS: Albumin 3.3 g/dL (3.5-5.0); Calcium 8.2 mg/dL (8.4-10.2); Potassium 4.8 mmol/L (3.5-5.1); Total Bilirubin 1.4 mg/dL (0.2-1.3); Total Protein 6.4 g/dL (6.3-8.2)
[2021-10-07] MEDS: IPRATROPIUM-ALBUTEROL 3 ML NEB INHALATION SCH ×2 (08:44→11:43)
[2021-10-07] MEDS: SYMBICORT 160-4.5 MCG INHALER INHALATION SCH (08:44)
[2021-10-07] MEDS: bisacodyL 10 MG SUPP RECTAL SCH (08:51)
--- NOTE | 2021-10-07 09:47 | P.PN ---
Subjective Patient is seen in follow-up for acute kidney injury. Started on hemodialysis 09/30/2021. No problems with dialysis. Urine output remains low. On 5 L high flow cannula. Oral intake fair. Denies chest pain or shortness of breath. Going to rehab today. Vital signs are stable. General: Awake and alert. HEENT: On nasal cannula. LUNGS: Breath sounds decreased. HEART: Rate and Rhythm are regular. ABDOMEN: Soft, obese. EXTREMITITES: 1+ edema. Chronic changes noted. Objective - Vital Signs Vital signs: Vital Signs Temp 97.6 F 10/07/21 08:00 Pulse 105 H 10/07/21 08:56 Resp 18 10/07/21 08:00 BP 82/47 10/07/21 08:00 Pulse Ox 96 10/07/21 08:44 Intake & Output 10/06/21 10/07/21 10/07/21 18:59 06:59 18:59 Intake Total 480 540 Output Total 200 500 Balance 480 340 -500 Weight 137.2 kg 139.1 kg Intake: Oral 480 540 Output: Urine 200 500 Other: Voiding Method Toilet Toilet Urinal Urinal # Bowel Movements 1 - Labs CBC & Chem 7: 10/07/21 07:23 10/07/21 07:23 Labs: Abnormal Lab Results - Last 24 Hours (Table) 10/06/21 10/06/21 10/06/21 Range/Units 07:28 11:55 16:20 WBC (3.8-10.6) k/uL RBC (4.30-5.90) m/uL Hgb (13.0-17.5) gm/dL Hct (39.0-53.0) % MCHC (31.0-37.0) g/dL RDW (11.5-15.5) % Neutrophils # 8.0 H (1.3-7.7) k/uL Sodium (137-145) mmol/L Chloride (98-107) mmol/L BUN (9-20) mg/dL Creatinine (0.66-1.25) mg/dL Glucose (74-99) mg/dL POC Glucose (mg/dL) 201 H 161 H (75-99) mg/dL Calcium (8.4-10.2) mg/dL Total Bilirubin (0.2-1.3) mg/dL Albumin (3.5-5.0) g/dL 10/06/21 10/07/21 10/07/21 Range/Units 20:12 06:10 07:23 WBC 10.9 H (3.8-10.6) k/uL RBC 2.91 L (4.30-5.90) m/uL Hgb 8.4 L (13.0-17.5) gm/dL Hct 28.8 L (39.0-53.0) % MCHC 29.2 L (31.0-37.0) g/dL RDW 22.7 H (11.5-15.5) % Neutrophils # 7.8 H (1.3-7.7) k/uL Sodium (137-145) mmol/L Chloride (98-107) mmol/L BUN (9-20) mg/dL Creatinine (0.66-1.25) mg/dL Glucose (74-99) mg/dL POC Glucose (mg/dL) 216 H 161 H (75-99) mg/dL Calcium (8.4-10.2) mg/dL Total Bilirubin (0.2-1.3) mg/dL Albumin (3.5-5.0) g/dL 10/07/21 Range/Units 07:23 WBC (3.8-10.6) k/uL RBC (4.30-5.90) m/uL Hgb (13.0-17.5) gm/dL Hct (39.0-53.0) % MCHC (31.0-37.0) g/dL RDW (11.5-15.5) % Neutrophils # (1.3-7.7) k/uL Sodium 130 L (137-145) mmol/L Chloride 95 L (98-107) mmol/L BUN 53 H (9-20) mg/dL Creatinine 5.03 H (0.66-1.25) mg/dL Glucose 130 H (74-99) mg/dL POC Glucose (mg/dL) (75-99) mg/dL Calcium 8.2 L (8.4-10.2) mg/dL Total Bilirubin 1.4 H (0.2-1.3) mg/dL Albumin 3.3 L (3.5-5.0) g/dL Assessment and Plan Plan: Assessment: 1. Acute kidney injury secondary to ATN secondary to hypotension and cardiorenal syndrome. No evidence of hydronephrosis. UA benign. Started on hemodialysis 09/30/2021 due to concern for uremia as well as oliguria. Has permacath. Baseline creatinine 1-1.2 from May 2021. 2. Acute on chronic diastolic CHF with severe tricuspid regurgitation and mild to moderate pulmonary hypertension. 3. Acute GI bleed status post EGD. Bleeding gastric AVM was noted. Hemoglobin stable at 8.4 today. On Aranesp. Status post blood transfusion and IV iron this admission. 4. Hypotension. Cortisol level not low. On midodrine. 5. Diabetes mellitus. 6. Metabolic acidosis secondary to acute kidney injury. On oral bicarb. 7. Hyponatremia secondary to acute kidney injury. Hypervolemic. Expect improvement postdialysis. Plan: Currently seen was undergoing hemodialysis. He will be maintained on Sunday schedule outpatient at [facility]. Continue to monitor renal function and urine output. Monitor for renal recovery outpatient. Phosphorus 4.8 dated 10/05/2021. Maintain torsemide. Hold midodrine for systolic blood pressure greater than 110.
--- NOTE | 2021-10-07 10:17 | P.DS ---
Providers Date of admission: 09/28/21 20:50 Expected date of discharge: 10/07/21 Attending physician: Catrina Lew Consults: 09/28/21 20:50 Consult Physician Urgent Consulting Provider: Sukhdev Ruby Consult Reason/Comments: Dialysis catheter Do you want consulting provider notified?: Yes Consult Physician Urgent Consulting Provider: Corin Cortez Consult Reason/Comments: Acute renal failure Do you want consulting provider notified?: Already Contacted 09/30/21 11:06 Consult Physician Routine Consulting Provider: Kam Garibay Consult Reason/Comments: cellulits Do you want consulting provider notified?: Yes 09/30/21 11:07 Consult Physician Routine Consulting Provider: Mandy Ray Consult Reason/Comments: hypotension Do you want consulting provider notified?: Yes 10/01/21 20:01 Consult Physician Urgent Consulting Provider: Tacos Marcos Consult Reason/Comments: COPD low 02 Do you want consulting provider notified?: Yes Primary care physician: Jocelyn Sampson Hospital Course: Discharge diagnosis 1. Increased edema and dyspnea secondary to acute kidney injury. Status post hemodialysis catheter placement and initiation of hemodialysis 2. Hypotension. Maintained on Midirone 3. Hyponatremia. Nephrology services following 4. Ischemic cardiomyopathy status post pacemaker placement 5. Metabolic acidosis associated with acute kidney injury 6. Diabetes mellitus type 2 7. Hypothyroidism 8. 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 History of pulmonary embolism. Eliquis currently on hold due to GI bleed Hospital course Tristian Galloway, is a 76-year-old male patient of Dr. Sampson who presented with concerns of increasing weight gain and increased shortness of breath over the past 3 weeks. Patient has a past medical history of CHF, atrial fibrillation, diabetes mellitus and COPD. Patient denies any recent acute illness. Patient denies nausea vomiting or diarrhea. Reports significant increase in lower extremity edema. Chest x-ray completed showing CHF. Ultrasound of kidneys and bladder completed showing no evidence of hydronephrosis small abdominal ascites. Lab work indicated of hyponatremia with sodium low at 126, creatinine elevated at 5.02 and bun 150. Initial lactic acid also elevated at 3.4. Repeat lactic acid 1.6. Patient also noted to be hypotensive with a blood pressure 86/52. At this time nephrology consulted. At this time patient is resting comfortably in chair. Patient is on 4 L nasal cannula. Temp 96.4, heart rate 65, respiratory rate 18 On 09/30/2021 patient is alert and oriented times he currently sitting up in chair. Plans for hemodialysis catheter placement today with possible plans of hemodialysis per nephrology services. Patient remains on 4 L nasal cannula. Patient denies chest pain. Patient denies nausea vomiting or diarrhea. Patient denies any urinary burning or frequency. On 10/01/2021 patient was seen and examined on the medical floor he is alert and oriented 3 in no apparent distress, at this time he is undergoing hemodialysis, he underwent EGD this morning with Dr. Rainey, patient had evidence of bleeding gastric AVM and this was cauterized, this morning hemoglobin is 6.8, at this time patient does not qualify for red blood cell transfusion, will monitor closely, otherwise patient is complaining of generalized pain and discomfort he denies any fever or chills no headache or dizziness no chest pain no shortness of breath no cough no nausea or vomiting no abdominal pain no diarrhea and no urinary symptoms. On 10/02/2021 patient is alert and oriented 3. Hemoglobin today 6.7. Patient did not undergo hemodialysis yesterday. No further episodes of bleeding. At this time patient denies chest pain or shortness breath. Patient denies nausea vomiting or diarrhea. Patient denies any urinary burning frequency. On 10/03/2021 patient was seen and examined on the telemetry floor he is alert and oriented 3 in no apparent distress vital exam reveals a temperature of 97.7 pulse 100 respiration 18 and blood pressure 130/56 pulse ox 93% on 6 L nasal cannula patient is receiving hemodialysis he denies any chest pain or shortness of breath no cough no nausea or vomiting no abdominal pain no diarrhea and no urinary symptoms, laboratory data reveals a white blood count of 11.8 hemoglobin 7.8 platelet count 241 BUN 84 creatinine 5.3 to at this time will resume Eliquis at a decreased dose of 2.5 twice a day due to renal function, patient was on 5 mg twice daily and this was held on admission to allow for placement of dialysis catheter. On 10/04/2021 patient is alert and oriented 3. Pulmonary, cardiology, surgical services nephrology services are following. Hemoglobin remained stable at 7.9. 1 dose of IV Lasix ordered per nephrology. This time patient is still complaining of some shortness breath. Patient denies chest pain. Patient denies nausea vomiting or diarrhea. Patient denies any urinary burning or frequency On 10/05/2021 patient is alert and oriented 3. Plans for possible hemodialysis today. Current vitals temp 97.8, heart rate 98, respiratory rate 20, blood pressure 96/54, oxygen saturation 98% on 5 L. Surgical services recommended continue holding eliquis at this time. Hemoglobin 7.9. Patient made short of breath. Patient denies chest pain. Patient denies nausea vomiting or diarrhea. Patient denies any urinary burning or frequency On 10/07/2021 patient is alert and oriented 3. Currently getting hemodialysis. Patient has been cleared for discharge from nephrology and pulmonary services. Per infectious disease no need for antibiotics. Patient will be arranged for hemodialysis Sunday. Discharge planning to [facility]. At this time patient denies chest pain or shortness of breath. Patient denies nausea vomiting and diarrhea. Patient denies any urinary burning or frequency Patient Condition at Discharge: Stable Plan - Discharge Summary Discharge Rx Participant: No New Discharge Prescriptions: New Sucralfate [Carafate] 1 gm PO AC-BID tab Torsemide [Demadex] 40 mg PO DAILY tab bisacodyL [Dulcolax] 10 mg RECTAL DAILY supp INSULIN ASPART (NovoLOG) [NovoLOG (formulary)] 0 unit SQ ACHS ml Sodium Bicarbonate Tab 650 mg PO BID tab Darbepoetin Chirag [Aranesp] 60 mcg SQ Q7D each Magnesium Hydroxide [Milk of Magnesia Concentrate] 2,400 mg PO DAILY PRN ml PRN Reason: Constipation Midodrine [ProAmatine] 10 mg PO QID tab Pantoprazole [Protonix] 40 mg PO BID 30 Days #60 tab Continue Budesonide [Pulmicort] 0.5 mg INHALATION RT-BID PRN PRN Reason: Shortness Of Breath allopurinoL [Zyloprim] 300 mg PO DAILY Acetaminophen Tab [Tylenol] 325 mg PO QID PRN PRN Reason: Pain Or Fever > 100.5 Ergocalciferol [Vitamin D2 (DRISDOL)] 50,000 unit PO HODGES Multivitamins, Thera [Multivitamin (formulary)] 1 tab PO DAILY Albuterol Sulfate [Proair Hfa] 2 puff INHALATION RT-QID PRN PRN Reason: Shortness Of Breath Lovastatin [Altoprev] 20 mg PO DAILY Docusate [Colace] 100 mg PO BID cap Levothyroxine Sodium [Synthroid] 50 mcg PO DAILY Ipratropium-Albuterol Nebulize [Duoneb 0.5 mg-3 mg/3 ml Soln] 3 ml INHALATION RT-Q6H PRN PRN Reason: Shortness Of Breath Discontinued Torsemide [Demadex] 40 mg PO DAILY metFORMIN HCL [Glucophage] 1,000 mg PO BID Potassium Chloride [Klor-Con 20] 20 meq PO DAILY Magnesium Chloride [Slow-Mag] 64 mg PO DAILY Metoprolol Tartrate [Lopressor] 25 mg PO BID metOLazone [Zaroxolyn] 5 mg PO DAILY tab glipiZIDE [Glucotrol] 10 mg PO BID Aspirin EC [Ecotrin Low Dose] 81 mg PO DAILY No Action Apixaban [Eliquis] 5 mg PO BID Discharge Medication List Budesonide [Pulmicort] 0.5 mg INHALATION RT-BID PRN 11/20/13 [History] allopurinoL [Zyloprim] 300 mg PO DAILY 11/21/14 [History] Acetaminophen Tab [Tylenol] 325 mg PO QID PRN 07/12/16 [History] Ergocalciferol [Vitamin D2 (DRISDOL)] 50,000 unit PO HODGES 07/12/16 [History] Multivitamins, Thera [Multivitamin (formulary)] 1 tab PO DAILY 10/03/17 [History] Albuterol Sulfate [Proair Hfa] 2 puff INHALATION RT-QID PRN 06/23/18 [History] Levothyroxine Sodium [Synthroid] 50 mcg PO DAILY 05/24/21 [History] Lovastatin [Altoprev] 20 mg PO DAILY 05/24/21 [History] Docusate [Colace] 100 mg PO BID cap 06/06/21 [Rx] Ipratropium-Albuterol Nebulize [Duoneb 0.5 mg-3 mg/3 ml Soln] 3 ml INHALATION RT-Q6H PRN 08/09/21 [History] Apixaban [Eliquis] 5 mg PO BID 09/28/21 [History] Darbepoetin Chirag [Aranesp] 60 mcg SQ Q7D each 10/07/21 [Rx] INSULIN ASPART (NovoLOG) [NovoLOG (formulary)] 0 unit SQ ACHS ml 10/07/21 [Rx] Magnesium Hydroxide [Milk of Magnesia Concentrate] 2,400 mg PO DAILY PRN ml 10/07/21 [Rx] Midodrine [ProAmatine] 10 mg PO QID tab 10/07/21 [Rx] Pantoprazole [Protonix] 40 mg PO BID 30 Days #60 tab 10/07/21 [Rx] Sodium Bicarbonate Tab 650 mg PO BID tab 10/07/21 [Rx] Sucralfate [Carafate] 1 gm PO AC-BID tab 10/07/21 [Rx] Torsemide [Demadex] 40 mg PO DAILY tab 10/07/21 [Rx] bisacodyL [Dulcolax] 10 mg RECTAL DAILY supp 10/07/21 [Rx] Follow up Appointment(s)/Referral(s): Jocelyn Sampson MD [Primary Care Provider] - [facility] - 10/10/21 2:30 pm (Chair time is MWF at 3:00PM, arrive on at 2:30PM. ) [facility], [NON-STAFF] - Activity/Diet/Wound Care/Special Instructions: NURSE/PhysicianAll meds need to be a 14 day supply only, this is so the [place] can reimburse medications cost to the patient. Also, please fax All Med scripts to [phone] [facility] no cost to him after the initial 2 weeks supply. Patient was given the reimbursement form with instructions he is responsible for. Discharge Disposition: TRANSFER TO SNF/ECF
[2021-10-07 11:54] LABS: Glucose,Whole Blood 175 mg/dL (75-99)
[2021-10-07] MEDS: DOCUSATE 100 MG CAP PO SCH (12:01)
[2021-10-07] MEDS: ATORVASTATIN 10 MG TAB PO SCH (12:35)
[2021-10-07] MEDS: allopurinoL 300 MG TAB PO SCH (12:35)
[2021-10-07] MEDS: MIDODRINE 5 MG TAB PO SCH ×2 (12:35→12:43)
[2021-10-07] MEDS: PANTOPRAZOLE 40 MG/10 ML VIAL IVP SCH (12:35)
[2021-10-07] MEDS: TORSEMIDE 20 MG TAB PO SCH (12:36)
[2021-10-07] MEDS: MULTIVITAMINS, THERA 1 EACH TAB PO SCH (12:36)
[2021-10-07] MEDS: SODIUM BICARBONATE TAB 650 MG TAB PO SCH (12:36)
[2021-10-07 14:13] VITALS: PULSE 108
[2021-10-07 14:30] VITALS: RESP 18
[2021-10-07 14:34] VITALS: BP 85/48; TEMP 97.4
== END 2021-10-07 14:42 | DRG 682 ==
LOC: EC 18:11 → 3SCARD 20:50
PROVIDERS: ADMIT Internal Medicine; ATTEND Internal Medicine
PROC: 5A1D70Z Performance of Urinary Filtration, Intermittent, Less than 6 Hours Per Day (ICD-10-PCS; 2021-09-30)
PROC: 30233N1 Transfusion of Nonautologous Red Blood Cells into Peripheral Vein, Percutaneous Approach (ICD-10-PCS; 2021-09-30)
PROC: 02HV33Z Insertion of Infusion Device into Superior Vena Cava, Percutaneous Approach (ICD-10-PCS; principal; 2021-09-30 08:35)
PROC: 0W3P8ZZ Control Bleeding in Gastrointestinal Tract, Via Natural or Artificial Opening Endoscopic (ICD-10-PCS; 2021-10-01)
PROC: 5A0935A Assistance with Respiratory Ventilation, Less than 24 Consecutive Hours, High Flow/Velocity Cannula (ICD-10-PCS; 2021-10-01)
PROC: 5A09557 Assistance with Respiratory Ventilation, Greater than 96 Consecutive Hours, Continuous Positive Airway Pressure (ICD-10-PCS; 2021-10-01)
PROC: 05HF33Z Insertion of Infusion Device into Left Cephalic Vein, Percutaneous Approach (ICD-10-PCS; 2021-10-06)
DX: N17.0 Acute kidney failure with tubular necrosis (principal); K31.811 Angiodysplasia of stomach and duodenum with bleeding; J96.21 Acute and chronic respiratory failure with hypoxia; I50.33 Acute on chronic diastolic (congestive) heart failure; I13.2 Hypertensive heart and chronic kidney disease with heart failure and with stage 5 chronic kidney disease, or end stage renal disease; E87.2 Acidosis; E87.1 Hypo-osmolality and hyponatremia; I48.21 Permanent atrial fibrillation; D62 Acute posthemorrhagic anemia; Z68.41 Body mass index [BMI] 40.0-44.9, adult; E11.41 Type 2 diabetes mellitus with diabetic mononeuropathy; D63.1 Anemia in chronic kidney disease; I27.20 Pulmonary hypertension, unspecified; I49.5 Sick sinus syndrome; I95.9 Hypotension, unspecified; E11.22 Type 2 diabetes mellitus with diabetic chronic kidney disease; E11.51 Type 2 diabetes mellitus with diabetic peripheral angiopathy without gangrene; N18.6 End stage renal disease; J44.9 Chronic obstructive pulmonary disease, unspecified; Z99.2 Dependence on renal dialysis; Z20.822 Contact with and (suspected) exposure to COVID-19; K22.2 Esophageal obstruction; E66.9 Obesity, unspecified; I07.1 Rheumatic tricuspid insufficiency; K29.70 Gastritis, unspecified, without bleeding; K44.9 Diaphragmatic hernia without obstruction or gangrene; I25.5 Ischemic cardiomyopathy; E03.9 Hypothyroidism, unspecified; E78.5 Hyperlipidemia, unspecified; G47.33 Obstructive sleep apnea (adult) (pediatric); E61.1 Iron deficiency; H91.90 Unspecified hearing loss, unspecified ear; H93.13 Tinnitus, bilateral; M10.9 Gout, unspecified; M19.90 Unspecified osteoarthritis, unspecified site; Z99.81 Dependence on supplemental oxygen; Z79.01 Long term (current) use of anticoagulants; Z79.82 Long term (current) use of aspirin; Z79.84 Long term (current) use of oral hypoglycemic drugs; Z79.890 Hormone replacement therapy; Z79.51 Long term (current) use of inhaled steroids; Z79.899 Other long term (current) drug therapy; Z95.0 Presence of cardiac pacemaker; Z86.14 Personal history of Methicillin resistant Staphylococcus aureus infection; Z86.19 Personal history of other infectious and parasitic diseases; Z90.49 Acquired absence of other specified parts of digestive tract; Z87.19 Personal history of other diseases of the digestive system; Z96.1 Presence of intraocular lens; Z98.41 Cataract extraction status, right eye; Z98.42 Cataract extraction status, left eye; Z86.59 Personal history of other mental and behavioral disorders; Z87.09 Personal history of other diseases of the respiratory system; Z86.79 Personal history of other diseases of the circulatory system; Z85.038 Personal history of other malignant neoplasm of large intestine; Z87.39 Personal history of other diseases of the musculoskeletal system and connective tissue; Z87.891 Personal history of nicotine dependence; Z86.711 Personal history of pulmonary embolism; Z86.69 Personal history of other diseases of the nervous system and sense organs; Z98.890 Other specified postprocedural states; Z71.3 Dietary counseling and surveillance; Z82.49 Family history of ischemic heart disease and other diseases of the circulatory system
CPT/HCPCS: 36410; 36415; 36558; 43255; 71045; 71046; 76770; 76937; 77001; 80053; 81003; 82271; 82533; 83540; 83550; 83605; 83735; 83880; 83935; 84100; 84145; 84484; 85025; 85027; 85610; 85730; 86140; 86704; 86706; 86850; 86900; 86901; 86920; 87040; 87340; 87635; 90935; 93005; 93306; 94640; 94660; 94760; 96374; 96375; 99291

== ENCOUNTER 2021-11-22 08:12 | Day surgery (SDC) | payer MEDICARE ==
[2021-11-21 11:20] VITALS: BMI 37.3
[~2021-11-22 08:12] MED LIST changes: -IOPAMIDOL-370 50ML BTL INJ ONE
[2021-11-22 08:44] VITALS: PULSE 77; RESP 18; TEMP 98
[2021-11-22 08:58] LABS: Glucose,Whole Blood 137 mg/dL (75-99)
[2021-11-22] MEDS ORDERED: IOPAMIDOL-370 50ML BTL INJ ONE (10:15)
--- NOTE | 2021-11-22 11:00 | P.EPPROC ---
- EP Procedure Note Electrophysiology Procedure Note: Diagnosis Venous occlusion left subclavian Suboptimal injection via the cephalic vein last time Venogram 50 mL IV dye injected in the basilic vein Axillary vein well opacified About a 1 cm occlusion at the axillary subclavian junction Cephalic vein enters just beyond the occlusion Left ventricle systolic function 50-55% Persistent atrial fibrillation Significant improvement with dialysis with a reduction in lower extremity edema and breathing Plan no indication for an upgrade at this time Pacemaker generator change at the time of GRAZYNA Reassessment of LV function just prior to that
[2021-11-22 14:13] VITALS: BP 124/65
== END 2021-11-22 11:05 | disposition home or self-care (01) ==
LOC: CATHEP 08:12
PROVIDERS: ATTEND Internal Medicine Clinical Cardiac Electrophysiology
DX: I87.1 Compression of vein (principal); I48.19 Other persistent atrial fibrillation; Z20.822 Contact with and (suspected) exposure to COVID-19
CPT/HCPCS: 75820; 87635; Q9967

== ENCOUNTER 2022-03-30 11:21 | Day surgery (SDC) | payer MEDICARE ==
[2022-03-29 10:16] VITALS: BMI 33.5
[~2022-03-30 11:21] MED LIST changes: +ACETAMINOPHEN TAB 500 MG TAB PO PRN; +DEXAMETHASONE SOD PHOSPHATE 4 MG/ML 1 ML VIAL IV ONE; +HEPARIN SODIUM,PORCINE/PF 5,000 UNIT/0.5 ML SYRINGE SQ PRN; +HYDROmorphone 0.5 MG/0.5 ML SYRINGE IVP PRN; +LACTATED RINGERS 1,000 ML IV SCH; +LIDOCAINE 1% (10MG/ML) FOR IV START INTRADERMA PRN; +MIDAZOLAM 2 MG/2 ML VIAL IV PRN; +ONDANSETRON 4 MG/2 ML VIAL IVP ONE; -SODIUM CHLORIDE 0.9% 1,000 ML IV SCH
--- NOTE | 2022-03-30 11:59 | P.PN ---
Progress Note - Text Progress Note Date: 03/30/22 Please see recent history and physical. Patient contacted us and wanted to go ahead with peritoneal dialysis catheter placement. 6 of bleeding, infection, leak, hernia, catheter malfunction, peritonitis, inability to place catheter all reviewed. Patient understands and wishes to
[2022-03-30 12:09] VITALS: TEMP 97.1
[2022-03-30] MEDS ORDERED: SODIUM CHLORIDE 0.9% 500 ML 500 ML IV ONE (12:10)
[2022-03-30] MEDS ORDERED: HEPARIN SODIUM,PORCINE/PF 5,000 UNIT/0.5 ML SYRINGE SQ ONE (12:11)
[2022-03-30] MEDS ORDERED: ACETAMINOPHEN TAB 500 MG TAB ONE (12:11)
[2022-03-30] MEDS ORDERED: ONDANSETRON 4 MG/2 ML VIAL ONE (12:11)
[2022-03-30 12:22] LABS: Glucose,Whole Blood 136 mg/dL (70-110)
[2022-03-30 12:32] LABS: Basophils # (A) 0.2 k/uL (0-0.2); Basophils % (A) 1 %; Eosinophils # (A) 0.2 k/uL (0-0.7); Eosinophils % (A) 2 %; HCT 38.7 % (39.0-53.0); HGB 12.3 gm/dL (13.0-17.5); Lymphocytes # (A) 3.2 k/uL (1.0-4.8); Lymphocytes % (A) 26 %; MCH 30.1 pg (25.0-35.0); MCHC 31.9 g/dL (31.0-37.0); MCV 94.5 fL (80.0-100.0); Mean Platelet Volume 7.2; Monocytes # (A) 1.1 k/uL (0-1.0); Monocytes % (A) 9 %; Neutrophils # (A) 7.3 k/uL (1.3-7.7); Neutrophils % (A) 60 %; Platelet Count 238 k/uL (150-450); RBC 4.09 m/uL (4.30-5.90); RDW 15.7 % (11.5-15.5); WBC 12.2 k/uL (3.8-10.6)
[2022-03-30] MEDS ORDERED: fentaNYL (PF) 50 MCG/ML 2 ML AMP ONE (12:32)
[2022-03-30] MEDS ORDERED: MIDAZOLAM 2 MG/2 ML VIAL ONE (12:32)
[2022-03-30] MEDS ORDERED: PROPOFOL 10 MG/ML 20 ML VIAL IV ONE (12:32)
[2022-03-30] MEDS ORDERED: KETAMINE 10 MG/ML 20 ML VIAL ONE (12:32)
[2022-03-30] MEDS ORDERED: GLYCOPYRROLATE 0.2 MG/ML 2 ML VIAL ONE (12:32)
[2022-03-30] MEDS ORDERED: BUPIVACAIN-EPI 0.25%-1:200,000 30 ML VIAL SQ ONE (12:37)
[2022-03-30] MEDS ORDERED: MINERAL OIL 1 APPLIC/ML OIL MISCELLANE ONE (12:37)
[2022-03-30] MEDS ORDERED: NALOXONE 0.4 MG/ML 1 ML VIAL IV PRN (13:30)
[2022-03-30] MEDS ORDERED: ONDANSETRON 4 MG/2 ML VIAL IVP PRN (13:30)
[2022-03-30] MEDS ORDERED: traMADol 50 MG TAB PO PRN (13:30)
--- NOTE | 2022-03-30 13:35 | P.OP ---
Date of Procedure: 03/30/22 Procedure(s) Performed: PREOPERATIVE DIAGNOSIS: Renal failure POSTOPERATIVE DIAGNOSIS: Same PROCEDURE: Peritoneal dialysis catheter insertion SURGEON: Redd EBL: 5 mL ANESTHESIA: Sedation plus local COMPLICATIONS: None OPERATIVE PROCEDURE: The patient was placed in the operative table in the supine position. The abdomen was prepped and draped in usual sterile fashion. A small horizontal incision was made in the right periumbilical location. Dissection down through the subcutaneous tissues took place using electrocautery. The anterior rectus was divided vertically using the scalpel. The rectus was bluntly. The posterior rectus was visualized. An 0 Vicryl pursestring was placed. A small opening in the posterior rectus fascia and peritoneum took place using a Metzenbaum scissors. There were no adhesions to the suture that was placed. The pigtail catheter was advanced into the pelvis over a stylette. No resistance was met. The inner cuff was secured to the fascia using the 0 Vicryl pursestring that was placed. The catheter was tunneled to an exit site in the right lateral lower quadrant. The catheter was connected to the 1 L bag of saline and approximated 800 mL of saline was easily introduced into the peritoneal cavity. The fluid was then allowed to evacuate. The majority of the fluid was returned. The anterior rectus fascia was then reapproximated using a running 0 Vicryl stitch. The subcutaneous tissues reprepped using 3-0 Vicryl sutures and the skin using 4-0 Monocryl sutures. The outpatient dialysis adapter was applied to the end of the catheter. Sterile dressings were then applied after skin glue was placed over the incision. DISPOSITION: Stable to recovery room
[2022-03-30 13:55] VITALS: BP 148/79; PULSE 80; RESP 20
== END 2022-03-30 14:47 | disposition home or self-care (01) ==
LOC: OR 11:21
PROVIDERS: ATTEND Surgery
DX: N19 Unspecified kidney failure (principal); E78.5 Hyperlipidemia, unspecified; J44.9 Chronic obstructive pulmonary disease, unspecified; G47.33 Obstructive sleep apnea (adult) (pediatric); K21.9 Gastro-esophageal reflux disease without esophagitis; E11.9 Type 2 diabetes mellitus without complications; I10 Essential (primary) hypertension; I48.91 Unspecified atrial fibrillation; I42.9 Cardiomyopathy, unspecified; Z79.82 Long term (current) use of aspirin; Z79.899 Other long term (current) drug therapy; Z98.41 Cataract extraction status, right eye; Z98.42 Cataract extraction status, left eye; Z95.0 Presence of cardiac pacemaker; Z87.19 Personal history of other diseases of the digestive system; Z79.890 Hormone replacement therapy; Z99.81 Dependence on supplemental oxygen; Z99.2 Dependence on renal dialysis
CPT/HCPCS: 49421; 85025; C1752; J2250; J1100; J0690; J2405; J3010; J2704; J1644

== ENCOUNTER 2023-02-14 22:41 | Inpatient (IN) | payer MEDICARE ==
--- NOTE | 2023-02-14 22:47 | ED ---
SOB HPI - General Stated Complaint: SOB Time Seen by Provider: 02/14/23 22:45 Source: RN notes reviewed, old records reviewed Mode of arrival: EMS Limitations: no limitations - History of Present Illness Initial Comments: This is a 77-year-old male to the emergency department for evaluation of shortness of breath shortness with persistent anxiety currently. No chest pain. Patient has multiple reasons for shortness of breath atrial fibrillation COPD also on dialysis. Patient does not appear in any respiratory distress currently. Patient complains of difficulty breathing. Denies chest pain. Patient is coming in for recheck of abnormal outpatient lab values was found to have anemia, patient Dese for anemia low blood pressure and states his blood pressure was low when he took it this morning at home. Patient is not quite sure he is given a pass out does admit to black stools Complaint: shortness of breath, cough, anxiety -: days(s) Severity: severe Severity scale (1-10): 7 Consistency: constant Improves With: nothing Worsens With: nothing Known History Of: COPD, congestive heart failure Context: recent URI, recent illness Associated Symptoms: palpitations, syncope (Patient does not fill he is given a pass out) Treatments Prior to Arrival: none - Related Data Home Medications Medication Instructions Recorded Confirmed allopurinoL [Zyloprim] 300 mg PO DAILY 11/21/14 02/14/23 Acetaminophen Tab [Tylenol] 325 mg PO QID PRN 07/12/16 02/14/23 Multivitamins, Thera [Multivitamin 1 tab PO DAILY 10/03/17 02/14/23 (formulary)] Albuterol Sulfate [Proair Hfa] 2 puff INHALATION RT-QID PRN 06/23/18 02/14/23 Levothyroxine Sodium [Synthroid] 50 mcg PO DAILY 05/24/21 02/15/23 Lovastatin [Altoprev] 40 mg PO HS 05/24/21 02/14/23 Ipratropium-Albuterol Nebulize 3 ml INHALATION RT-Q6H PRN 08/09/21 02/14/23 [Duoneb 0.5 mg-3 mg/3 ml Soln] Apixaban [Eliquis] 5 mg PO BID 09/28/21 02/15/23 Aspirin [Adult Low Dose Aspirin EC] 81 mg PO DAILY 03/29/22 02/14/23 Lactulose 10 gm PO BID PRN 03/29/22 02/14/23 Omeprazole 40 mg PO DAILY 03/29/22 02/14/23 Torsemide [Demadex] 80 mg PO DAILY 03/29/22 02/14/23 Calcium Carbonate [Tums] 500 mg PO DAILY 02/14/23 02/14/23 Docusate Calcium 240 mg PO DAILY 02/14/23 02/14/23 Ferrous Sulfate [Feosol] 325 mg PO DAILY 02/14/23 02/14/23 Gentamicin 0.1% Cream 1 applic TOPICAL DAILY 02/14/23 02/14/23 Midodrine HCl [ProAmatine] 10 mg PO QID 02/14/23 02/14/23 Potassium Chloride ER [K-Dur 10] 20 meq PO DAILY 02/14/23 02/14/23 glipiZIDE [Glucotrol] 10 mg PO HS 02/14/23 02/14/23 glipiZIDE [Glucotrol] 20 mg PO DAILY 02/14/23 02/14/23 metOLazone [Zaroxolyn] 10 mg PO DAILY 02/14/23 02/14/23 methocarbamoL [Methocarbamol] 500 mg PO HS 02/14/23 02/14/23 Sucralfate [Carafate] 1 gm PO BID 02/15/23 02/15/23 Previous Rx's Medication Instructions Recorded traMADol HCl [Ultram] 50 mg PO Q6H PRN #6 tab 03/30/22 Allergies Allergy/AdvReac Type Severity Reaction Status Date / Time lisinopril AdvReac Cough Verified 02/15/23 09:24 Review of Systems ROS Statement: Those systems with pertinent positive or pertinent negative responses have been documented in the HPI. ROS Other: All systems not noted in ROS Statement are negative. Past Medical History Past Medical History: Atrial Fibrillation, COPD, Diabetes Mellitus, Dialysis, GERD/Reflux, Hyperlipidemia, Hypertension, Osteoarthritis (OA), Renal Disease, Sleep Apnea/CPAP/BIPAP, Thyroid Disorder Additional Past Medical History / Comment(s): O2 3L per nasal cannula. Dialysis MOWEFR. Cardiomyopathy. Gout. Constipation. 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 hemodialysis cath, Past Anesthesia/Blood Transfusion Reactions: No Reported Reaction Type of Cardiac Device: Permanent Pacemaker Device Placement Date:: 10/17/2012 Smoking Status: Former smoker - Past Family History Father History Unknown: Yes Additional Family Medical History / Comment(s): "hardening of the arteries" Mother History Unknown: Yes Additional Family Medical History / Comment(s): "water in the lungs" at 95. General Exam General appearance: alert, in no apparent distress, anxious, other (Pale) Head exam: Present: atraumatic, normocephalic, normal inspection Eye exam: Present: normal appearance, PERRL, EOMI. Absent: scleral icterus, conjunctival injection, periorbital swelling ENT exam: Present: normal exam, mucous membranes moist Neck exam: Present: normal inspection. Absent: tenderness, meningismus, lymphadenopathy Respiratory exam: Present: normal lung sounds bilaterally. Absent: respiratory distress, wheezes, rales, rhonchi, stridor Cardiovascular Exam: Present: regular rate, normal rhythm, normal heart sounds. Absent: systolic murmur, diastolic murmur, rubs, gallop, clicks GI/Abdominal exam: Present: soft, normal bowel sounds. Absent: distended, tenderness, guarding, rebound, rigid Extremities exam: Present: normal inspection, full ROM, normal capillary refill. Absent: tenderness, pedal edema, joint swelling, calf tenderness Back exam: Present: normal inspection Neurological exam: Present: alert, oriented X3, CN II-XII intact Psychiatric exam: Present: normal affect, normal mood Skin exam: Present: warm, dry, intact, normal color. Absent: rash Course Vital Signs 02/14/23 02/14/23 02/14/23 22:45 23:35 23:40 Temperature 97.3 F L Pulse Rate 85 75 110 H Respiratory 20 Rate Blood Pressure 84/50 O2 Sat by Pulse 97 Oximetry 02/15/23 02/15/23 02/15/23 00:53 02:07 02:30 Temperature Pulse Rate 84 87 Respiratory 16 16 Rate Blood Pressure 86/51 80/44 81/49 O2 Sat by Pulse 96 98 Oximetry 02/15/23 02/15/23 02/15/23 03:13 03:33 03:41 Temperature Pulse Rate 86 79 81 Respiratory 16 Rate Blood Pressure 68/42 O2 Sat by Pulse 95 Oximetry 02/15/23 02/15/23 02/15/23 03:42 04:15 04:31 Temperature 97.7 F 97.8 F Pulse Rate 84 106 H 89 Respiratory 16 16 16 Rate Blood Pressure 84/46 97/61 95/55 O2 Sat by Pulse 100 98 100 Oximetry 02/15/23 02/15/23 02/15/23 04:51 05:55 06:19 Temperature 97.7 F Pulse Rate 90 86 89 Respiratory 16 16 16 Rate Blood Pressure 94/56 83/49 92/49 O2 Sat by Pulse 100 100 100 Oximetry 02/15/23 02/15/23 02/15/23 06:59 07:30 07:47 Temperature Pulse Rate 87 80 80 Respiratory 16 18 Rate Blood Pressure 94/65 104/63 O2 Sat by Pulse 99 99 Oximetry 02/15/23 02/15/23 02/15/23 07:52 07:59 08:04 Temperature Pulse Rate 80 82 Respiratory 19 Rate Blood Pressure 95/56 O2 Sat by Pulse 94 L 94 L Oximetry 02/15/23 08:12 Temperature 97.2 F L Pulse Rate 72 Respiratory 15 Rate Blood Pressure 102/63 O2 Sat by Pulse 96 Oximetry - Reevaluation(s) Reevaluation #1: 02/14/23 23:37 Medical record is reviewed Reevaluation #2: 02/14/23 23:37 Patient symptoms unchanged Reevaluation #3: 02/14/23 23:37 patient for results and questions answered Reevaluation #4: 02/14/23 22:46 Was pt. sent in by a medical professional or institution (, PA, INSURANCE CLAIMS ASSISTANT, urgent care, hospital, or [facility]...) When possible be specific @ -no Did you speak to anyone other than the patient for history (EMS, parent, family, police, friend...)? What history was obtained from this source @ -no Did you review nursing and triage notes (agree or disagree)? Why? @ -agree Are old charts reviewed (outside hosp., previous admission, EMS record, old EKG, old radiological studies, urgent care reports/EKG's, [facility] records)? Report findings @ -yes Differential Diagnosis (chest pain, altered mental status, abdominal pain women, abdominal pain men, vaginal bleeding, weakness, fever, dyspnea, syncope, headache, dizziness, GI bleed, back pain, seizure, CVA, palpatations, mental health, musculoskeletal)? @ -prior EKG interpreted by me (3pts min.). @ -yes X-rays interpreted by me (1pt min.). @ -yes CT interpreted by me (1pt min.). @ -no U/S interpreted by me (1pt. min.). @ -no What testing was considered but not performed or refused? (CT, X-rays, U/S, labs)? Why? @ -none What meds were considered but not given or refused? Why? @ -none Did you discuss the management of the patient with other professionals (professionals i.e. , PA, INSURANCE CLAIMS ASSISTANT, lab, RT, psych nurse, social worker delinquency prevention, corporate lawyer, teacher, cra officer, case management assistant)? Give summary @ -no Was smoking cessation discussed for >3mins.? @ -no Was critical care preformed (if so, how long)? @ -no Were there social determinants of health that impacted care today? How? (Homelessness, low income, unemployed, alcoholism, drug addiction, transportation, low edu. Level, literacy, decrease access to med. care, [facility], rehab)? @ -none Was there de-escalation of care discussed even if they declined (Discuss DNR or withdrawal of care, Hospice)? DNR status @ -no What co-morbidities impacted this encounter? (DM, HTN, Smoking, COPD, CAD, Cancer, CVA, ARF, Chemo, Hep., AIDS, mental health diagnosis, sleep apnea, morbid obesity)? @ -none Was patient admitted / discharged? Hospital course, mention meds given and route, prescriptions, significant lab abnormalities, going to OR and other pertinent info. @ - 77 male emergency department for evaluation of severe weakness shortness of breath patient found of significant anemia likely GI bleed history of GI bleed of stools. Patient will be admitted for evaluation of GI bleed. Possible need for transfusion, complicated with dialysis. Admitted Undiagnosed new problem with uncertain prognosis? @ -no Drug Therapy requiring intensive monitoring for toxicity (Heparin, Nitro, Insulin, Cardizem)? @ -no Were any procedures done? @ -no Diagnosis/symptom? @ -Anemia, GI bleed, weakness, dialysis patient Acute, or Chronic, or Acute on Chronic? @ -Acute Uncomplicated (without systemic symptoms) or Complicated (systemic symptoms)? @ -Complicated Side effects of treatment? @ -no Exacerbation, Progression, or Severe Exacerbation? @ -exacerbation Poses a threat to life or bodily function? How? (Chest pain, USA, LA, pneumonia, PE, COPD, DKA, ARF, appy, cholecystitis, CVA, Diverticulitis, Homicidal, Suicidal, threat to staff... and all critical care pts) @ -yes Reevaluation #5: 02/14/23 22:46 Differential Dyspnea: Coronary syndrome, arrhythmia, tamponade, asthma, COPD, pulmonary embolism, pneumonia, pneumothorax, pulmonary effusion, anaphylaxis, diabetic ketoacidosis, flailed chest, pulmonary contusion, diaphragmatic rupture, anemia, neuromuscular, this is not meant to be an all-inclusive list. - Consultations Consultation #1: spoke with alex sanchez for admission Medical Decision Making - Medical Decision Making 77 male emergency department for evaluation of severe weakness shortness of breath patient found of significant anemia likely GI bleed history of GI bleed of stools. Patient will be admitted for evaluation of GI bleed. Possible need for transfusion, complicated with dialysis. - Lab Data Result diagrams: 02/16/23 10:50 02/17/23 09:05 Lab Results 02/14/23 02/14/23 02/14/23 Range/Units 23:16 23:40 23:40 WBC 15.2 H (3.8-10.6) k/uL RBC 2.18 L (4.30-5.90) m/uL Hgb 7.2 L (13.0-17.5) gm/dL Hct 22.4 L (39.0-53.0) % MCV 102.7 H (80.0-100.0) fL MCH 32.9 (25.0-35.0) pg MCHC 32.0 (31.0-37.0) g/dL RDW 19.7 H (11.5-15.5) % Plt Count 256 (150-450) k/uL MPV 8.2 Neutrophils % 75 % Lymphocytes % 16 % Monocytes % 6 % Eosinophils % 1 % Basophils % 0 % Neutrophils # 11.4 H (1.3-7.7) k/uL Lymphocytes # 2.4 (1.0-4.8) k/uL Monocytes # 0.9 (0-1.0) k/uL Eosinophils # 0.2 (0-0.7) k/uL Basophils # 0.1 (0-0.2) k/uL Hypochromasia Slight Poikilocytosis Slight Anisocytosis Slight Macrocytosis Moderate PT 11.1 (9.0-12.0) sec INR 1.1 (<1.2) APTT 27.6 (22.0-30.0) sec Sodium (137-145) mmol/L Potassium (3.5-5.1) mmol/L Chloride (98-107) mmol/L Carbon Dioxide (22-30) mmol/L Anion Gap mmol/L BUN (9-20) mg/dL Creatinine (0.66-1.25) mg/dL Est GFR (CKD-EPI)AfAm (>60 ml/min/1.73 sqM) Est GFR (CKD-EPI)NonAf (>60 ml/min/1.73 sqM) Glucose (74-99) mg/dL Plasma Lactic Acid Jarvis (0.7-2.0) mmol/L Calcium (8.4-10.2) mg/dL Magnesium (1.6-2.3) mg/dL Total Bilirubin (0.2-1.3) mg/dL AST (17-59) U/L ALT (4-49) U/L Alkaline Phosphatase (38-126) U/L Troponin I (0.000-0.034) ng/mL NT-Pro-B Natriuret Pep pg/mL Total Protein (6.3-8.2) g/dL Albumin (3.5-5.0) g/dL Blood Type O Positive Blood Type Recheck O Pos Bld Type Recheck Status No Antibody Screen NEGATIVE Crossmatch See Detail Spec Expiration Date 02/17/2023 - 231502/14/23 02/14/23 02/14/23 Range/Units 23:40 23:40 23:40 WBC (3.8-10.6) k/uL RBC (4.30-5.90) m/uL Hgb (13.0-17.5) gm/dL Hct (39.0-53.0) % MCV (80.0-100.0) fL MCH (25.0-35.0) pg MCHC (31.0-37.0) g/dL RDW (11.5-15.5) % Plt Count (150-450) k/uL MPV Neutrophils % % Lymphocytes % % Monocytes % % Eosinophils % % Basophils % % Neutrophils # (1.3-7.7) k/uL Lymphocytes # (1.0-4.8) k/uL Monocytes # (0-1.0) k/uL Eosinophils # (0-0.7) k/uL Basophils # (0-0.2) k/uL Hypochromasia Poikilocytosis Anisocytosis Macrocytosis PT (9.0-12.0) sec INR (<1.2) APTT (22.0-30.0) sec Sodium 128 L (137-145) mmol/L Potassium 4.5 (3.5-5.1) mmol/L Chloride 90 L (98-107) mmol/L Carbon Dioxide 21 L (22-30) mmol/L Anion Gap 17 mmol/L BUN 81 H (9-20) mg/dL Creatinine 4.62 H (0.66-1.25) mg/dL Est GFR (CKD-EPI)AfAm 13 (>60 ml/min/1.73 sqM) Est GFR (CKD-EPI)NonAf 11 (>60 ml/min/1.73 sqM) Glucose 131 H (74-99) mg/dL Plasma Lactic Acid Jarvis 1.5 (0.7-2.0) mmol/L Calcium 8.5 (8.4-10.2) mg/dL Magnesium 1.4 L (1.6-2.3) mg/dL Total Bilirubin 0.4 (0.2-1.3) mg/dL AST 21 (17-59) U/L ALT 19 (4-49) U/L Alkaline Phosphatase 143 H (38-126) U/L Troponin I 0.017 (0.000-0.034) ng/mL NT-Pro-B Natriuret Pep 9350 pg/mL Total Protein 6.6 (6.3-8.2) g/dL Albumin 3.5 (3.5-5.0) g/dL Blood Type Blood Type Recheck Bld Type Recheck Status Antibody Screen Crossmatch Spec Expiration Date - EKG Data -: EKG Interpreted by Me (EKG is paced at 72 QRS 172 QTC 462) - Radiology Data Radiology results: report reviewed (Chest x-rays negative for acute disease), image reviewed Critical Care Time Critical Care Time: Yes Total Critical Care Time: 31 Disposition Clinical Impression: COPD (chronic obstructive pulmonary disease), Weakness, GI bleed, Anemia, Nausea and vomiting, Hypotension, Near syncope, Abdominal pain Disposition: ADMITTED IP TO THIS [facility] Condition: Fair Is patient prescribed a controlled substance at d/c from ED?: No Time of Disposition: 01:45
[2023-02-14] MEDS ORDERED: IPRATROPIUM-ALBUTEROL 3 ML NEB INHALATION STA (22:52)
[2023-02-14] MEDS ORDERED: SODIUM CHLORIDE 0.9% 500 ML 500 ML IV STA (23:17)
--- NOTE | 2023-02-15 00:06 | XR ---
EXAMINATION TYPE: XR chest 1V portable DATE OF EXAM: 02/15/2023 COMPARISON: 09/07/2021 INDICATION: Chest pain TECHNIQUE: Single frontal view of the chest is obtained. FINDINGS: The heart size is moderately prominent. The pulmonary vasculature is normal. No focal consolidation is evident. Pacemaker overlies left chest. IMPRESSION: 1. No acute pulmonary process. 2. Moderate cardiomegaly
[2023-02-15 00:26] LABS: INR 1.1 (<1.2); Partial Thromboplastin Time 27.6 sec (22.0-30.0); Prothrombin Time 11.1 sec (9.0-12.0)
[2023-02-15 00:27] LABS: ALT 19 U/L (4-49); AST 21 U/L (17-59); African American GFR (CKD) 13 (>60 ml/min/1.73 sqM); Albumin 3.5 g/dL (3.5-5.0); Alkaline Phosphatase 143 U/L (38-126); Anion Gap 17 mmol/L; Blood Urea Nitrogen 81 mg/dL (9-20); Calcium 8.5 mg/dL (8.4-10.2); Carbon Dioxide 21 mmol/L (22-30); Chloride 90 mmol/L (98-107); Glucose 131 mg/dL (74-99); Magnesium 1.4 mg/dL (1.6-2.3); Non-African American GFR(CKD) 11 (>60 ml/min/1.73 sqM); Potassium 4.5 mmol/L (3.5-5.1); Sodium 128 mmol/L (137-145); Total Bilirubin 0.4 mg/dL (0.2-1.3); Total Protein 6.6 g/dL (6.3-8.2)
[2023-02-15 00:36] LABS: NT-Pro-B-Type Natriuretic Pept 9350 pg/mL
[2023-02-15] MEDS ORDERED: methocarbamoL 500 MG TAB PO STA (01:00)
[2023-02-15] MEDS ORDERED: SODIUM CHLORIDE 0.9% 500 ML 500 ML IV STA (01:01)
[2023-02-15 01:30] LABS: Anisocytosis Slight; Basophils # (A) 0.1 k/uL (0-0.2); Basophils % (A) 0 %; Eosinophils # (A) 0.2 k/uL (0-0.7); Eosinophils % (A) 1 %; HCT 22.4 % (39.0-53.0); HGB 7.2 gm/dL (13.0-17.5); Hypochromasia Slight; Lymphocytes # (A) 2.4 k/uL (1.0-4.8); Lymphocytes % (A) 16 %; MCH 32.9 pg (25.0-35.0); MCV 102.7 fL (80.0-100.0); Macrocytosis Moderate; Mean Platelet Volume 8.2; Monocytes # (A) 0.9 k/uL (0-1.0); Monocytes % (A) 6 %; Neutrophils # (A) 11.4 k/uL (1.3-7.7); Neutrophils % (A) 75 %; Platelet Count 256 k/uL (150-450); Poikilocytosis Slight; RBC 2.18 m/uL (4.30-5.90); RDW 19.7 % (11.5-15.5); WBC 15.2 k/uL (3.8-10.6)
[2023-02-15] MEDS ORDERED: MORPHINE SULFATE 4 MG/ML SYRINGE IV PRN (01:50)
[2023-02-15] MEDS ORDERED: ONDANSETRON 4 MG/2 ML VIAL IVP PRN (01:50)
[2023-02-15] MEDS ORDERED: NALOXONE 0.4 MG/ML 1 ML VIAL IV PRN (01:50)
[2023-02-15] MEDS ORDERED: SODIUM CHLORIDE 0.9% 500 ML 500 ML IV ONE (02:16)
[2023-02-15] MEDS ORDERED: IPRATROPIUM-ALBUTEROL 3 ML NEB INHALATION STA (03:30)
[2023-02-15] MEDS ORDERED: ALBUTEROL HFA INHALER INHALATION PRN (06:01)
[2023-02-15] MEDS ORDERED: ACETAMINOPHEN TAB 325 MG TAB PO PRN (06:01)
[2023-02-15] MEDS ORDERED: traMADol 50 MG TAB PO PRN (06:01)
--- NOTE | 2023-02-15 06:10 | P.HPIM ---
History of Present Illness H&P Date: 02/15/23 Chief Complaint: Abnormal blood work 77-year-old male end-stage renal disease on peritoneal dialysis, diabetes mellitus, A. fib status post pacemaker Patient coming in due to generalized weakness and lightheadedness this been going on for about a day or 2 he denies any palpitations denies any chest pain denies any trouble breathing denies any fevers denies any chills denies any coughing He did some routine blood work related to his dialysis on Sunday and just received a text today saying that his hemoglobin has dropped to 7.9 for which she got alarmed and decided to come in for evaluation he reports that recently his hemoglobin went all the way up to 11 as he was started on some iron supplementation he always suffered from anemia he denies any GI bleeding however he does report some black poop is not sure that's related to his iron supplementation or to his Eliquis that he takes for A. fib He denies any history of blood transfusion denies any history of overt GI bleeding denies any abdominal pain nausea or vomiting at this time He denies tobacco smoking illicit drugs or alcohol He claims to be compliant with his medications He has obstructive sleep apnea for which she uses CPAP End-stage renal disease for which he performs peritoneal dialysis at home daily review of systems Pertinent positives as noted in HPI. All other systems were reviewed and are negative on exam Constitutional: No acute distress, conversant, pleasant Eyes: Anicteric sclerae, moist conjunctiva, Pupils equal round reactive to light ENMT: NC/AT Oropharynx clear, no erythema, or exudates Neck: Supple, no masses, or JVD No carotid bruits No thyromegaly Lungs: Clear to auscultation Clear to percussion Normal respiratory effort, no accessory muscle use Cardiovascular: Heart regular in rate and rhythm, No murmurs, gallops, or rubs No peripheral edema Abdominal: Soft, peritoneal dialysis catheter site looks clean and healthy no drainage no surrounded erythema or induration Nontender, no guarding, rebound or rigidity Abdomen moving with respiration Normoactive bowel sounds No hepatomegaly, No splenomegaly No palpable mass No abdominal wall hernia noted Skin: Normal temperature, tone, texture, turgor No induration No subcutaneous nodules No rash, lesions No ulcers Extremities: No digital cyanosis No clubbing Pedal pulses intact and symmetrical Radial pulses intact and symmetrical No calf tenderness Psychiatric: Alert and oriented to person, place and time Appropriate affect fair judgement Neuro Muscles Strength 5/5 in all 4 extremities Sensation to light touch grossly present throughout Cranial nerves II-XII grossly intact Lymphatics: no palpable cervical or supraclavicular lymph nodes Past Medical History Past Medical History: Atrial Fibrillation, COPD, Diabetes Mellitus, Dialysis, GERD/Reflux, Hyperlipidemia, Hypertension, Osteoarthritis (OA), Renal Disease, Sleep Apnea/CPAP/BIPAP, Thyroid Disorder Additional Past Medical History / Comment(s): O2 3L per nasal cannula. Dialysis MOWEFR. Cardiomyopathy. Gout. Constipation. 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 hemodialysis cath, Past Anesthesia/Blood Transfusion Reactions: No Reported Reaction Type of Cardiac Device: Permanent Pacemaker Device Placement Date:: 10/17/2012 Smoking Status: Former smoker - Past Family History Father History Unknown: Yes Additional Family Medical History / Comment(s): "hardening of the arteries" Mother History Unknown: Yes Additional Family Medical History / Comment(s): "water in the lungs" at 95. Medications and Allergies Home Medications Medication Instructions Recorded Confirmed Type allopurinoL [Zyloprim] 300 mg PO DAILY 11/21/14 02/14/23 History Acetaminophen Tab [Tylenol] 325 mg PO QID PRN 07/12/16 02/14/23 History Multivitamins, Thera [Multivitamin 1 tab PO DAILY 10/03/17 02/14/23 History (formulary)] Albuterol Sulfate [Proair Hfa] 2 puff INHALATION RT-QID PRN 06/23/18 02/14/23 History Levothyroxine Sodium [Synthroid] 50 mcg PO DIRECTED 05/24/21 02/14/23 History Lovastatin [Altoprev] 40 mg PO HS 05/24/21 02/14/23 History Ipratropium-Albuterol Nebulize 3 ml INHALATION RT-Q6H PRN 08/09/21 02/14/23 History [Duoneb 0.5 mg-3 mg/3 ml Soln] Apixaban [Eliquis] 5 mg PO DIRECTED 09/28/21 02/14/23 History Aspirin [Adult Low Dose Aspirin EC] 81 mg PO DAILY 03/29/22 02/14/23 History Lactulose 10 gm PO BID PRN 03/29/22 02/14/23 History Omeprazole 40 mg PO DAILY 03/29/22 02/14/23 History Torsemide [Demadex] 80 mg PO DAILY 03/29/22 02/14/23 History traMADol HCl [Ultram] 50 mg PO Q6H PRN #6 tab 03/30/22 02/14/23 Rx Calcium Carbonate [Tums] 500 mg PO DAILY 02/14/23 02/14/23 History Docusate Calcium 240 mg PO DAILY 02/14/23 02/14/23 History Ferrous Sulfate [Feosol] 325 mg PO DAILY 02/14/23 02/14/23 History Gentamicin 0.1% Cream 1 applic TOPICAL DAILY 02/14/23 02/14/23 History Midodrine HCl [ProAmatine] 10 mg PO QID 02/14/23 02/14/23 History Potassium Chloride ER [K-Dur 10] 20 meq PO DAILY 02/14/23 02/14/23 History glipiZIDE [Glucotrol] 10 mg PO HS 02/14/23 02/14/23 History glipiZIDE [Glucotrol] 20 mg PO DAILY 02/14/23 02/14/23 History metOLazone [Zaroxolyn] 10 mg PO DAILY 02/14/23 02/14/23 History methocarbamoL [Methocarbamol] 500 mg PO HS 02/14/23 02/14/23 History Allergies Allergy/AdvReac Type Severity Reaction Status Date / Time No Known Allergies Allergy Verified 02/14/23 23:06 Physical Exam Vitals: Vital Signs Temp Pulse Resp BP Pulse Ox 02/15/23 05:55 86 16 83/49 100 02/15/23 04:51 97.7 F 90 16 94/56 100 02/15/23 04:31 97.8 F 89 16 95/55 100 02/15/23 04:15 97.7 F 106 H 16 97/61 98 02/15/23 03:42 84 16 84/46 100 02/15/23 03:41 81 02/15/23 03:33 79 02/15/23 03:13 86 16 68/42 95 02/15/23 02:30 81/49 02/15/23 02:07 87 16 80/44 98 02/15/23 00:53 84 16 86/51 96 02/14/23 23:40 110 H 02/14/23 23:35 75 02/14/23 22:45 97.3 F L 85 20 84/50 97 Intake and Output 02/14/23 02/14/23 02/15/23 14:59 22:59 06:59 Intake Total 0 Balance 0 Intake: Blood Product 0 Rc As-1 Unit 0 [id number] Other: Weight 113.398 kg Results CBC & Chem 7: 02/14/23 23:40 02/14/23 23:40 Labs: Abnormal Lab Results - Last 24 Hours (Table) 02/14/23 02/14/23 02/14/23 Range/Units 23:16 23:40 23:40 WBC 15.2 H (3.8-10.6) k/uL RBC 2.18 L (4.30-5.90) m/uL Hgb 7.2 L (13.0-17.5) gm/dL Hct 22.4 L (39.0-53.0) % MCV 102.7 H (80.0-100.0) fL RDW 19.7 H (11.5-15.5) % Neutrophils # 11.4 H (1.3-7.7) k/uL Sodium 128 L (137-145) mmol/L Chloride 90 L (98-107) mmol/L Carbon Dioxide 21 L (22-30) mmol/L BUN 81 H (9-20) mg/dL Creatinine 4.62 H (0.66-1.25) mg/dL Glucose 131 H (74-99) mg/dL Magnesium 1.4 L (1.6-2.3) mg/dL Alkaline Phosphatase 143 H (38-126) U/L Crossmatch See Detail Assessment and Plan Assessment: 77-year-old male with multiple comorbidities coming in due to abnormal blood work showing hemoglobin of 7.9 I discussed the case with the ED doctor and accepted the admission for symptomatic anemia for further workup with anticipated length of stay less than 2 midnights Symptomatic acute on chronic anemia secondary to end-stage renal disease, rule out GI bleeding A. fib status post pacemaker on Eliquis Blood work showed hemoglobin of 7.2 couple days ago was 7.9 when done as an outpatient Reports black bowel movements however he is on iron supplementation 1 unit blood transfusion Monitor hemoglobin Continue with Eliquis for A. fib Hypomagnesemia with magnesium of 1.4 replace IV and follow-up levels Renal function showing BUN of 81 creatinine of 4.6, potassium 4.5, sodium 128 White count 15.2 no identifiable focus of infection afebrile continue to monitor off antibiotics Continue with home diuretics as prescribed Chronic conditions Hypertension continue with midodrine Diabetes mellitus continue with insulin sliding scale COPD continue with home inhalers, currently compensated, chest x-ray showing no acute pathology A. fib continue with Eliquis status post pacemaker EKG shows paced rhythm Hypothyroid continue with levothyroxine Full code DVT prophylaxis on Eliquis for A. fib Rudy prophylaxis Protonix 40 mg twice a day by mouth
[2023-02-15] MEDS ORDERED: MAGNESIUM SULFATE-D5W PMX 1 GM in DEXTROSE/WATER 1 100ML.BAG IVPB ONE (06:11)
[2023-02-15] MEDS ORDERED: APIXABAN 5 MG TAB PO SCH ×3 (06:15→09:45)
[2023-02-15] MEDS: IPRATROPIUM-ALBUTEROL 3 ML NEB INHALATION PRN ×4 (07:47→21:10)
[2023-02-15] MEDS: SODIUM CHLORIDE 0.9% 1,000 ML IV SCH ×3 (08:02→10:06)
[2023-02-15] MEDS ORDERED: ASPIRIN 81 MG PO SCH (09:00)
[2023-02-15] MEDS ORDERED: TORSEMIDE 20 MG TAB PO SCH (09:00)
[2023-02-15] MEDS ORDERED: metOLazone 5 MG TAB PO SCH (09:00)
[2023-02-15] MEDS: PANTOPRAZOLE 40 MG TABLET PO SCH ×3 (09:50→10:00)
[2023-02-15] MEDS: DOCUSATE 100 MG CAP PO SCH (09:52)
[2023-02-15] MEDS: MIDODRINE 5 MG TAB PO SCH ×4 (09:52→22:15)
--- NOTE | 2023-02-15 09:59 | P.NPCON ---
History of Present Illness - Reason for Consult end stage renal disease - History of Present Illness Reason for consultation: End-stage renal disease History of present illness: Patient is a 77-year-old male seen in consultation for end-stage renal disease. Patient was seen and examined in the emergency room. Patient is maintained on peritoneal dialysis. Patient states he uses a cycler at home and feels with extraneal during the day. Patient came to the hospital due to concern for low hemoglobin. Patient had blood work done outpatient and was told hemoglobin was 7.9 and subsequently she came to the hospital. He denies any active bleeding but does state that he has black stool because he takes oral iron. He denies any hematemesis. No hematuria. Patient's hemoglobin on admission was 7.2 and he did receive a unit of blood. He also received 3 L of normal saline bolus on admission and is currently receiving normal saline at 1 30 mL an hour. He was on eliquis which is currently held. He does have chronic hypotension and is maintained on midodrine. He is also on diuretics. Makes minimal urine. No chest pain or shortness of breath. Does feel dizzy and lightheaded. Patient has long-standing history of diabetes. Denies history of coronary artery disease. Does have a pacemaker. Vital signs are stable. General: No acute distress. HEENT: Head exam is unremarkable. LUNGS: No audible rhonchi or wheezes. HEART: Rate and Rhythm are regular. ABDOMEN: Nontender, obese. EXTREMITITES: Trace edema. Past Medical History Past Medical History: Atrial Fibrillation, COPD, Diabetes Mellitus, Dialysis, GERD/Reflux, Hyperlipidemia, Hypertension, Osteoarthritis (OA), Renal Disease, Sleep Apnea/CPAP/BIPAP, Thyroid Disorder Additional Past Medical History / Comment(s): O2 3L per nasal cannula. Dialysis MOWEFR. Cardiomyopathy. Gout. Constipation. 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 hemodialysis cath, Past Anesthesia/Blood Transfusion Reactions: No Reported Reaction Type of Cardiac Device: Permanent Pacemaker Device Placement Date:: 10/17/2012 Smoking Status: Former smoker - Past Family History Father History Unknown: Yes Additional Family Medical History / Comment(s): "hardening of the arteries" Mother History Unknown: Yes Additional Family Medical History / Comment(s): "water in the lungs" at 95. Medications and Allergies Home Medications Medication Instructions Recorded Confirmed Type allopurinoL [Zyloprim] 300 mg PO DAILY 11/21/14 02/14/23 History Acetaminophen Tab [Tylenol] 325 mg PO QID PRN 07/12/16 02/14/23 History Multivitamins, Thera [Multivitamin 1 tab PO DAILY 10/03/17 02/14/23 History (formulary)] Albuterol Sulfate [Proair Hfa] 2 puff INHALATION RT-QID PRN 06/23/18 02/14/23 History Levothyroxine Sodium [Synthroid] 50 mcg PO DAILY 05/24/21 02/15/23 History Lovastatin [Altoprev] 40 mg PO HS 05/24/21 02/14/23 History Ipratropium-Albuterol Nebulize 3 ml INHALATION RT-Q6H PRN 08/09/21 02/14/23 History [Duoneb 0.5 mg-3 mg/3 ml Soln] Apixaban [Eliquis] 5 mg PO BID 09/28/21 02/15/23 History Aspirin [Adult Low Dose Aspirin EC] 81 mg PO DAILY 03/29/22 02/14/23 History Lactulose 10 gm PO BID PRN 03/29/22 02/14/23 History Omeprazole 40 mg PO DAILY 03/29/22 02/14/23 History Torsemide [Demadex] 80 mg PO DAILY 03/29/22 02/14/23 History traMADol HCl [Ultram] 50 mg PO Q6H PRN #6 tab 03/30/22 02/14/23 Rx Calcium Carbonate [Tums] 500 mg PO DAILY 02/14/23 02/14/23 History Docusate Calcium 240 mg PO DAILY 02/14/23 02/14/23 History Ferrous Sulfate [Feosol] 325 mg PO DAILY 02/14/23 02/14/23 History Gentamicin 0.1% Cream 1 applic TOPICAL DAILY 02/14/23 02/14/23 History Midodrine HCl [ProAmatine] 10 mg PO QID 02/14/23 02/14/23 History Potassium Chloride ER [K-Dur 10] 20 meq PO DAILY 02/14/23 02/14/23 History glipiZIDE [Glucotrol] 10 mg PO HS 02/14/23 02/14/23 History glipiZIDE [Glucotrol] 20 mg PO DAILY 02/14/23 02/14/23 History metOLazone [Zaroxolyn] 10 mg PO DAILY 02/14/23 02/14/23 History methocarbamoL [Methocarbamol] 500 mg PO HS 02/14/23 02/14/23 History Sucralfate [Carafate] 1 gm PO BID 02/15/23 02/15/23 History Allergies Allergy/AdvReac Type Severity Reaction Status Date / Time lisinopril AdvReac Cough Verified 02/15/23 09:24 Physical Exam Vitals: Vital Signs Temp Pulse Resp BP Pulse Ox 02/15/23 08:12 97.2 F L 72 15 102/63 96 02/15/23 08:04 82 19 95/56 94 L 02/15/23 07:59 80 02/15/23 07:52 94 L 02/15/23 07:47 80 02/15/23 07:30 80 18 104/63 99 02/15/23 06:59 87 16 94/65 99 02/15/23 06:19 89 16 92/49 100 02/15/23 05:55 86 16 83/49 100 02/15/23 04:51 97.7 F 90 16 94/56 100 02/15/23 04:31 97.8 F 89 16 95/55 100 02/15/23 04:15 97.7 F 106 H 16 97/61 98 02/15/23 03:42 84 16 84/46 100 02/15/23 03:41 81 02/15/23 03:33 79 02/15/23 03:13 86 16 68/42 95 02/15/23 02:30 81/49 02/15/23 02:07 87 16 80/44 98 02/15/23 00:53 84 16 86/51 96 02/14/23 23:40 110 H 02/14/23 23:35 75 02/14/23 22:45 97.3 F L 85 20 84/50 97 Intake and Output 02/14/23 02/15/23 02/15/23 22:59 06:59 14:59 Intake Total 0 310 Balance 0 310 Intake: Blood Product 0 310 Rc As-1 Unit 0 310 [id number] Other: Weight 113.398 kg Results - Lab Results Most recent lab results Calcium 8.5 mg/dL (8.4-10.2) 02/14/23 23:40 Magnesium 1.4 mg/dL (1.6-2.3) L 02/14/23 23:40 02/14/23 23:40 02/14/23 23:40 Assessment and Plan Plan: Assessment: 1. End-stage renal disease maintained on peritoneal dialysis. 2. Acute blood loss anemia status post blood transfusion. 3. Hypotension maintained on midodrine. Also received 3 L bolus normal saline on admission. 4. Diabetes mellitus. 5. A. fib. Has pacemaker. Anticoagulation held due to concern for GI bleed. 6. Hypomagnesemia from diuretics. Replaced. 7. Metabolic acidosis secondary to chronic kidney disease. Plan: Resume PD exchanges - 2.5 L every 6 hours with 1.5% dextrose solution. Check dialysate fluid for cell count, culture and Gram stain. Decreased rate of normal saline to 50 mL an hour. Check a.m. cortisol level. Check iron studies. DDAVP IV 1 dose today. Consider surgery/GI consult. Hold diuretics for now. Thank you for the consultation. I will continue to follow the patient with you during his hospital stay.
[2023-02-15] MEDS ORDERED: DESMOPRESSIN ACETATE 28 MCG in SODIUM CHLORIDE 0.9% 50 ML IVPB ONE (10:30)
[2023-02-15] MEDS: LEVOTHYROXINE 50 MCG TAB PO SCH (11:03)
[2023-02-15 11:49] LABS: Anisocytosis Moderate; Basophils % (A) 0 %; Eosinophils # (A) 0.1 k/uL (0-0.7); Eosinophils % (A) 1 %; HCT 24.1 % (39.0-53.0); HGB 7.7 gm/dL (13.0-17.5); Hypochromasia Slight; Lymphocytes # (A) 1.2 k/uL (1.0-4.8); Lymphocytes % (A) 9 %; MCHC 31.9 g/dL (31.0-37.0); MCV 100.1 fL (80.0-100.0); Macrocytosis Moderate; Mean Platelet Volume 8.4; Monocytes # (A) 0.7 k/uL (0-1.0); Monocytes % (A) 6 %; Neutrophils # (A) 10.8 k/uL (1.3-7.7); Neutrophils % (A) 83 %; Platelet Count 241 k/uL (150-450); Poikilocytosis Slight; RBC 2.41 m/uL (4.30-5.90); RDW 22.6 % (11.5-15.5)
[2023-02-15 12:08] LABS: African American GFR (CKD) 13 (>60 ml/min/1.73 sqM); Anion Gap 18 mmol/L; Blood Urea Nitrogen 85 mg/dL (9-20); Calcium 8.6 mg/dL (8.4-10.2); Carbon Dioxide 17 mmol/L (22-30); Chloride 93 mmol/L (98-107); Glucose 129 mg/dL (74-99); Magnesium 1.6 mg/dL (1.6-2.3); Non-African American GFR(CKD) 11 (>60 ml/min/1.73 sqM); Potassium 4.4 mmol/L (3.5-5.1); Sodium 128 mmol/L (137-145)
--- NOTE | 2023-02-15 12:36 | P.CRDCN ---
History of Present Illness History of present illness: HISTORY OF PRESENT ILLNESS: This is a 77-year-old male with a past medical history significant for atrial fibrillation, sick sinus syndrome with previous pacemaker implantation, hypertension, diabetes, and chronic kidney disease. Patient follows in the office with Dr. Witt. We have been asked to see the patient in consultation for "known". Patient examined at the bedside. patient came to the hospital after having outpatient lab work drawn and was told his hemoglobin was 7.9. He did receive a unit of blood this morning. General surgery has been consulted for evaluation. His anticoagulation has been placed on hold. He denies chest pain or pressure. He denies shortness of breath. * EKG reveals ventricular paced rhythm * Chest xray no acute pulmonary process. Moderate cardiomegaly.. * Laboratory data: WBC 13.0. Hemoglobin 7.7. Platelet count 241. Sodium 128. Potassium 4.4. BUN 85. Creatinine 4.67. Troponin negative 1. ProBNP 9350. * Current home cardiac medications include Eliquis 5mg BID, Demadex 80 mg daily, aspirin 81 mg daily * Most recent echocardiogram obtained in September 2021 revealed ejection fraction 50-55%, severe tricuspid regurgitation, mild to moderate pulmonary hypertension REVIEW OF SYSTEMS: At the time of my exam: CONSTITUTIONAL: Denies fever or chills. HEENT: Denies blurred vision, vision changes, or eye pain. Denies hemoptysis CARDIOVASCULAR: Denies chest pain. Denies orthopnea. Denies PND. Denies palpitations RESPIRATORY: Denies shortness of breath. GASTROINTESTINAL: Denies abdominal pain. Denies nausea or vomiting. HEMATOLOGIC: Denies bleeding disorders. GENITOURINARY: Denies any blood in urine. SKIN: Denies pruitis. Denies rash. PHYSICAL EXAM: VITAL SIGNS: Reviewed. GENERAL: Well-developed in no acute distress. HEENT: Head is normocephalic. Pupils are equal, round. Sclerae anicteric. Mucous membranes of the mouth are moist. Neck supple. No JVD or thyromegaly LUNGS: Respirations even and unlabored. Lungs essentially clear to auscultation bilaterally. HEART: Regular rate and rhythm. S1 and S2 heard. ABDOMEN: Soft. Nondistended. Nontender. EXTREMITIES: Normal range of motion. No clubbing or cyanosis. Peripheral pulses intact. No lower extremity edema NEUROLOGIC: Awake and alert. Oriented x 3. ASSESSMENT: Anemia, status post 1 unit RBC transfusion Hypotension, improved Persistent atrial fibrillation Sick sinus syndrome with previous pacemaker implantation Hypertension Chronic kidney disease Diabetes PLAN: Discontinue aspirin Eliquis remains on hold. Dr. Chu recommends decreasing dose down to 2.5 mg twice a day when anticoagulation is resumed General surgery has been consulted for evaluation No further inpatient recommendations from a cardiac standpoint We will sign off. Please reconsult if needed. Nurse practitioner note has been reviewed by physician. Signing provider agrees with the documented findings, assessment, and plan of care. Past Medical History Past Medical History: Atrial Fibrillation, COPD, Diabetes Mellitus, Dialysis, GERD/Reflux, Hyperlipidemia, Hypertension, Osteoarthritis (OA), Renal Disease, Sleep Apnea/CPAP/BIPAP, Thyroid Disorder Additional Past Medical History / Comment(s): O2 3L per nasal cannula. Dialysis MOWEFR. Cardiomyopathy. Gout. Constipation. 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 hemodialysis cath, Past Anesthesia/Blood Transfusion Reactions: No Reported Reaction Type of Cardiac Device: Permanent Pacemaker Device Placement Date:: 10/17/2012 Smoking Status: Former smoker - Past Family History Father History Unknown: Yes Additional Family Medical History / Comment(s): "hardening of the arteries" Mother History Unknown: Yes Additional Family Medical History / Comment(s): "water in the lungs" at 95. Medications and Allergies Home Medications Medication Instructions Recorded Confirmed Type allopurinoL [Zyloprim] 300 mg PO DAILY 11/21/14 02/14/23 History Acetaminophen Tab [Tylenol] 325 mg PO QID PRN 07/12/16 02/14/23 History Multivitamins, Thera [Multivitamin 1 tab PO DAILY 10/03/17 02/14/23 History (formulary)] Albuterol Sulfate [Proair Hfa] 2 puff INHALATION RT-QID PRN 06/23/18 02/14/23 History Levothyroxine Sodium [Synthroid] 50 mcg PO DAILY 05/24/21 02/15/23 History Lovastatin [Altoprev] 40 mg PO HS 05/24/21 02/14/23 History Ipratropium-Albuterol Nebulize 3 ml INHALATION RT-Q6H PRN 08/09/21 02/14/23 History [Duoneb 0.5 mg-3 mg/3 ml Soln] Apixaban [Eliquis] 5 mg PO BID 09/28/21 02/15/23 History Aspirin [Adult Low Dose Aspirin EC] 81 mg PO DAILY 03/29/22 02/14/23 History Lactulose 10 gm PO BID PRN 03/29/22 02/14/23 History Omeprazole 40 mg PO DAILY 03/29/22 02/14/23 History Torsemide [Demadex] 80 mg PO DAILY 03/29/22 02/14/23 History traMADol HCl [Ultram] 50 mg PO Q6H PRN #6 tab 03/30/22 02/14/23 Rx Calcium Carbonate [Tums] 500 mg PO DAILY 02/14/23 02/14/23 History Docusate Calcium 240 mg PO DAILY 02/14/23 02/14/23 History Ferrous Sulfate [Feosol] 325 mg PO DAILY 02/14/23 02/14/23 History Gentamicin 0.1% Cream 1 applic TOPICAL DAILY 02/14/23 02/14/23 History Midodrine HCl [ProAmatine] 10 mg PO QID 02/14/23 02/14/23 History Potassium Chloride ER [K-Dur 10] 20 meq PO DAILY 02/14/23 02/14/23 History glipiZIDE [Glucotrol] 10 mg PO HS 02/14/23 02/14/23 History glipiZIDE [Glucotrol] 20 mg PO DAILY 02/14/23 02/14/23 History metOLazone [Zaroxolyn] 10 mg PO DAILY 02/14/23 02/14/23 History methocarbamoL [Methocarbamol] 500 mg PO HS 02/14/23 02/14/23 History Sucralfate [Carafate] 1 gm PO BID 02/15/23 02/15/23 History Allergies Allergy/AdvReac Type Severity Reaction Status Date / Time lisinopril AdvReac Cough Verified 02/15/23 09:24 Physical Exam Vitals: Vital Signs Temp Pulse Resp BP Pulse Ox 02/15/23 11:12 97 F L 80 18 91/57 96 02/15/23 08:12 97.2 F L 72 15 102/63 96 02/15/23 08:04 82 19 95/56 94 L 02/15/23 07:59 80 02/15/23 07:52 94 L 02/15/23 07:47 80 02/15/23 07:30 80 18 104/63 99 02/15/23 06:59 87 16 94/65 99 02/15/23 06:19 89 16 92/49 100 02/15/23 05:55 86 16 83/49 100 02/15/23 04:51 97.7 F 90 16 94/56 100 02/15/23 04:31 97.8 F 89 16 95/55 100 02/15/23 04:15 97.7 F 106 H 16 97/61 98 02/15/23 03:42 84 16 84/46 100 02/15/23 03:41 81 02/15/23 03:33 79 02/15/23 03:13 86 16 68/42 95 02/15/23 02:30 81/49 02/15/23 02:07 87 16 80/44 98 02/15/23 00:53 84 16 86/51 96 02/14/23 23:40 110 H 02/14/23 23:35 75 02/14/23 22:45 97.3 F L 85 20 84/50 97 Intake and Output 02/14/23 02/15/23 02/15/23 22:59 06:59 14:59 Intake Total 0 310 Balance 0 310 Intake: Blood Product 0 310 Rc As-1 Unit 0 310 [id number] Other: Weight 113.398 kg Results 02/15/23 10:56 02/15/23 02:13 Cardiac Enzymes 02/14/23 02/14/23 Range/Units 23:40 23:40 AST 21 (17-59) U/L Troponin I 0.017 (0.000-0.034) ng/mL Coagulation 02/14/23 Range/Units 23:40 PT 11.1 (9.0-12.0) sec APTT 27.6 (22.0-30.0) sec CBC 02/14/23 02/15/23 Range/Units 23:40 10:56 WBC 15.2 H 13.0 H (3.8-10.6) k/uL RBC 2.18 L 2.41 L (4.30-5.90) m/uL Hgb 7.2 L 7.7 L (13.0-17.5) gm/dL Hct 22.4 L 24.1 L (39.0-53.0) % Plt Count 256 241 (150-450) k/uL Comprehensive Metabolic Panel 02/14/23 Range/Units 23:40 Sodium 128 L (137-145) mmol/L Potassium 4.5 (3.5-5.1) mmol/L Chloride 90 L (98-107) mmol/L Carbon Dioxide 21 L (22-30) mmol/L BUN 81 H (9-20) mg/dL Creatinine 4.62 H (0.66-1.25) mg/dL Glucose 131 H (74-99) mg/dL Calcium 8.5 (8.4-10.2) mg/dL AST 21 (17-59) U/L ALT 19 (4-49) U/L Alkaline Phosphatase 143 H (38-126) U/L Total Protein 6.6 (6.3-8.2) g/dL Albumin 3.5 (3.5-5.0) g/dL Current Medications Generic Name Dose Route Start Last Admin Trade Name Freq PRN Reason Stop Dose Admin Acetaminophen 325 mg 02/15/23 06:01 Acetaminophen Tab 325 Mg Tab PO QID PRN Pain or Fever > 100.5 Albuterol/Ipratropium 3 ml 02/15/23 03:30 02/15/23 07:47 Ipratropium-Albuterol 3 Ml Neb INHALATION 3 ml RT-QID PRN Administration Shortness Of Breath Or Wheezing Apixaban 5 mg 02/15/23 09:45 02/15/23 10:00 Apixaban 5 Mg Tab PO Not Given BID SERGEY Protocol Atorvastatin Calcium 10 mg 02/15/23 21:00 Atorvastatin 10 Mg Tab PO HS SERGEY Docusate Sodium 200 mg 02/15/23 09:00 02/15/23 09:52 Docusate 100 Mg Cap PO 200 mg DAILY SERGEY Administration Sodium Chloride 1,000 mls @ 50 mls/hr 02/15/23 09:45 02/15/23 10:06 Saline 0.9% IV 50 mls/hr .Q20H SERGEY Administration Peritoneal Dialysis Solution 37.5 g in 2,500 mls @ 0 mls/hr 02/15/23 12:00 Delflex With 1.5% Dextrose (2,500 Ml) INTRAPERIT Q6HR [facility] Protocol As Directed Levothyroxine Sodium 50 mcg 02/15/23 09:45 02/15/23 11:03 Levothyroxine 50 Mcg Tab PO 50 mcg DAILY@0630 SERGEY Administration Midodrine 10 mg 02/15/23 09:00 02/15/23 09:59 Midodrine 5 Mg Tab PO 10 mg QID SERGEY Administration Morphine Sulfate 4 mg 02/15/23 01:50 Morphine Sulfate 4 Mg/Ml Syringe IV Q4HR PRN Severe Pain (Scale 7 to 10) Naloxone HCl 0.2 mg 02/15/23 01:50 Naloxone 0.4 Mg/Ml 1 Ml Vial IV Q2M PRN Opioid Reversal Ondansetron HCl 4 mg 02/15/23 01:50 Ondansetron 4 Mg/2 Ml Vial IVP Q8HR PRN Nausea And Vomiting Pantoprazole Sodium 40 mg 02/15/23 07:30 02/15/23 10:00 Pantoprazole 40 Mg Tablet PO 40 mg [id number] SERGEY Administration Tramadol HCl 50 mg 02/15/23 06:01 Tramadol 50 Mg Tab PO Q6H PRN Pain Intake and Output 02/14/23 02/15/23 02/15/23 22:59 06:59 14:59 Intake Total 0 310 Balance 0 310 Intake: Blood Product 0 310 Rc As-1 Unit 0 310 [id number] Other: Weight 113.398 kg 02/15/23 10:56 02/14/23 23:40
[2023-02-15] MEDS: DIALYSIS (PERIT 1.5%) 2,500 ML 37.5 G/2,500 ML BAG INTRAPERIT SCH ×2 (13:01→18:56)
--- NOTE | 2023-02-15 15:10 | P.GSCN ---
History of Present Illness Consult date: 02/15/23 History of present illness: CHIEF COMPLAINT: Anemia HISTORY OF PRESENT ILLNESS: This is a 77-year-old male who presented to the hospital with weakness and lightheadedness and hemoglobin of 7.9 outpatient. Patient has been on iron supplements since November for his chronic anemia. Patient reports he has had black stools since starting the iron supplements. He usually has between one to 3 bowel movements a day. Denies any abdominal pain. Denies any nausea or vomiting. He does take Eliquis for history of Afib. Hemoglobin is 7.2 on admission and is now at 7.7. Hemoglobin in May 2022 was at 11.7. He is scheduled for 1 unit of blood. He has been hypotensive. He has end- stage renal disease on peritoneal dialysis. Also history of COPD and on home oxygen 3 L. He also has a pacemaker. Past surgical history does include colon resection for a large colon polyp in 2013. Patient reports that it was noncancerous. Last EGD and colonoscopy were several years ago patient reports no findings on EGD. The colonoscopy was last done when his large colon polyp was found. Patient has had no colonoscopies since the resection. Patient denies any NSAID use. PAST MEDICAL HISTORY: See below PAST SURGICAL HISTORY: See below MEDICATIONS: See below ALLERGIES: See below SOCIAL HISTORY: No illicit drug use. REVIEW OF SYSTEMS: CONSTITUTIONAL: Denies fever or chills. HEENT: Denies blurred vision, vision changes, or eye pain. Denies hemoptysis CARDIOVASCULAR: Denies chest pain or pressure. RESPIRATORY: No shortness of breath. GASTROINTESTINAL: See HPI for pertinent findings HEMATOLOGIC: Denies bleeding disorders. GENITOURINARY: Denies any blood in urine or increased urinary frequency. SKIN: Denies pruitis. Denies rash. PHYSICAL EXAM: VITAL SIGNS: Reviewed GENERAL: Well-developed in no acute distress. HEENT: No sclera icterus. Extraocular movements grossly intact. Moist buccal mucosa. Head is atraumatic, normocephalic. No nasal drainage. ABDOMEN: Soft. Nondistended. Nontender NEUROLOGIC: Alert and oriented. Cranial nerves II through XII grossly intact. LABORATORY DATA: WBC 13 Hgb 7.7 platelets 241 Na 128 potassium 4.4 creatinine 4.65 Magnesium 1.6 IMAGING: Chest x-ray no acute pulmonary process. Moderate cardiomegaly ASSESSMENT: 1. Anemia with melanotic stools. Possible upper GI bleed. Patient does take iron supplements. 2. History of iron deficiency anemia 3. End-stage renal disease on peritoneal dialysis PLAN: -Patient scheduled for EGD tomorrow with Dr. Rainey -Patient can have clear liquid diet today -Nothing by mouth after midnight -Hold Eliquis -Change Protonix to IV -Continue to monitor hemoglobin -Continue to monitor for any signs or symptoms of bleeding Thank you for this consultation Physician Manager Human Resources note has been reviewed by physician. Signing provider agrees with the documented findings, assessment, and plan of care. Past Medical History Past Medical History: Atrial Fibrillation, COPD, Diabetes Mellitus, Dialysis, GERD/Reflux, Hyperlipidemia, Hypertension, Osteoarthritis (OA), Renal Disease, Sleep Apnea/CPAP/BIPAP, Thyroid Disorder Additional Past Medical History / Comment(s): O2 3L per nasal cannula. Dialysis MOWEFR. Cardiomyopathy. Gout. Constipation. 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 hemodialysis cath, Past Anesthesia/Blood Transfusion Reactions: No Reported Reaction Type of Cardiac Device: Permanent Pacemaker Device Placement Date:: 10/17/2012 Past Psychological History: Depression Additional Psychological History / Comment(s): Pt resides with his spouse. He uses a rollator to ambulate. He has a wheelchair and ramp on the home. His spouse drives. He has a nebulizer, home oxygen and a glucometer. He has had home care in the past but none currently. Smoking Status: Former smoker Past Alcohol Use History: Rare Additional Past Alcohol Use History / Comment(s): Pt started smoking in 1962 and quit in 1966. Past Drug Use History: None Reported - Past Family History Father History Unknown: Yes Additional Family Medical History / Comment(s): "hardening of the arteries" Mother History Unknown: Yes Additional Family Medical History / Comment(s): "water in the lungs" at 95. Medications and Allergies Home Medications Medication Instructions Recorded Confirmed Type allopurinoL [Zyloprim] 300 mg PO DAILY 11/21/14 02/14/23 History Acetaminophen Tab [Tylenol] 325 mg PO QID PRN 07/12/16 02/14/23 History Multivitamins, Thera [Multivitamin 1 tab PO DAILY 10/03/17 02/14/23 History (formulary)] Albuterol Sulfate [Proair Hfa] 2 puff INHALATION RT-QID PRN 06/23/18 02/14/23 History Levothyroxine Sodium [Synthroid] 50 mcg PO DAILY 05/24/21 02/15/23 History Lovastatin [Altoprev] 40 mg PO HS 05/24/21 02/14/23 History Ipratropium-Albuterol Nebulize 3 ml INHALATION RT-Q6H PRN 08/09/21 02/14/23 History [Duoneb 0.5 mg-3 mg/3 ml Soln] Apixaban [Eliquis] 5 mg PO BID 09/28/21 02/15/23 History Aspirin [Adult Low Dose Aspirin EC] 81 mg PO DAILY 03/29/22 02/14/23 History Lactulose 10 gm PO BID PRN 03/29/22 02/14/23 History Omeprazole 40 mg PO DAILY 03/29/22 02/14/23 History Torsemide [Demadex] 80 mg PO DAILY 03/29/22 02/14/23 History traMADol HCl [Ultram] 50 mg PO Q6H PRN #6 tab 03/30/22 02/14/23 Rx Calcium Carbonate [Tums] 500 mg PO DAILY 02/14/23 02/14/23 History Docusate Calcium 240 mg PO DAILY 02/14/23 02/14/23 History Ferrous Sulfate [Feosol] 325 mg PO DAILY 02/14/23 02/14/23 History Gentamicin 0.1% Cream 1 applic TOPICAL DAILY 02/14/23 02/14/23 History Midodrine HCl [ProAmatine] 10 mg PO QID 02/14/23 02/14/23 History Potassium Chloride ER [K-Dur 10] 20 meq PO DAILY 02/14/23 02/14/23 History glipiZIDE [Glucotrol] 10 mg PO HS 02/14/23 02/14/23 History glipiZIDE [Glucotrol] 20 mg PO DAILY 02/14/23 02/14/23 History metOLazone [Zaroxolyn] 10 mg PO DAILY 02/14/23 02/14/23 History methocarbamoL [Methocarbamol] 500 mg PO HS 02/14/23 02/14/23 History Sucralfate [Carafate] 1 gm PO BID 02/15/23 02/15/23 History Allergies Allergy/AdvReac Type Severity Reaction Status Date / Time lisinopril AdvReac Cough Verified 02/15/23 09:24 Surgical - Exam Vital Signs Temp Pulse Resp BP Pulse Ox 97.3 F L 85 20 84/50 97 02/14/23 22:45 02/14/23 22:45 02/14/23 22:45 02/14/23 22:45 02/14/23 22:45 Results - Labs 02/15/23 10:56 02/15/23 02:13 Abnormal Lab Results - Last 24 Hours (Table) 02/14/23 02/14/23 02/14/23 Range/Units 23:16 23:40 23:40 WBC 15.2 H (3.8-10.6) k/uL RBC 2.18 L (4.30-5.90) m/uL Hgb 7.2 L (13.0-17.5) gm/dL Hct 22.4 L (39.0-53.0) % MCV 102.7 H (80.0-100.0) fL RDW 19.7 H (11.5-15.5) % Neutrophils # 11.4 H (1.3-7.7) k/uL Sodium 128 L (137-145) mmol/L Chloride 90 L (98-107) mmol/L Carbon Dioxide 21 L (22-30) mmol/L BUN 81 H (9-20) mg/dL Creatinine 4.62 H (0.66-1.25) mg/dL Glucose 131 H (74-99) mg/dL Magnesium 1.4 L (1.6-2.3) mg/dL Alkaline Phosphatase 143 H (38-126) U/L Crossmatch See Detail 02/15/23 02/15/23 Range/Units 02:13 10:56 WBC 13.0 H (3.8-10.6) k/uL RBC 2.41 L (4.30-5.90) m/uL Hgb 7.7 L (13.0-17.5) gm/dL Hct 24.1 L (39.0-53.0) % MCV 100.1 H (80.0-100.0) fL RDW 22.6 H (11.5-15.5) % Neutrophils # 10.8 H (1.3-7.7) k/uL Sodium 128 L (137-145) mmol/L Chloride 93 L (98-107) mmol/L Carbon Dioxide 17 L (22-30) mmol/L BUN 85 H (9-20) mg/dL Creatinine 4.67 H (0.66-1.25) mg/dL Glucose 129 H (74-99) mg/dL Magnesium (1.6-2.3) mg/dL Alkaline Phosphatase (38-126) U/L Crossmatch Diabetes panel 02/14/23 02/15/23 Range/Units 23:40 02:13 Sodium 128 L 128 L (137-145) mmol/L Potassium 4.5 4.4 (3.5-5.1) mmol/L Chloride 90 L 93 L (98-107) mmol/L Carbon Dioxide 21 L 17 L (22-30) mmol/L BUN 81 H 85 H (9-20) mg/dL Creatinine 4.62 H 4.67 H (0.66-1.25) mg/dL Glucose 131 H 129 H (74-99) mg/dL Calcium 8.5 8.6 (8.4-10.2) mg/dL AST 21 (17-59) U/L ALT 19 (4-49) U/L Alkaline Phosphatase 143 H (38-126) U/L Total Protein 6.6 (6.3-8.2) g/dL Albumin 3.5 (3.5-5.0) g/dL Calcium panel 02/14/23 02/15/23 Range/Units 23:40 02:13 Calcium 8.5 8.6 (8.4-10.2) mg/dL Albumin 3.5 (3.5-5.0) g/dL Pituitary panel 02/14/23 02/15/23 Range/Units 23:40 02:13 Sodium 128 L 128 L (137-145) mmol/L Potassium 4.5 4.4 (3.5-5.1) mmol/L Chloride 90 L 93 L (98-107) mmol/L Carbon Dioxide 21 L 17 L (22-30) mmol/L BUN 81 H 85 H (9-20) mg/dL Creatinine 4.62 H 4.67 H (0.66-1.25) mg/dL Glucose 131 H 129 H (74-99) mg/dL Calcium 8.5 8.6 (8.4-10.2) mg/dL Adrenal panel 02/14/23 02/15/23 Range/Units 23:40 02:13 Sodium 128 L 128 L (137-145) mmol/L Potassium 4.5 4.4 (3.5-5.1) mmol/L Chloride 90 L 93 L (98-107) mmol/L Carbon Dioxide 21 L 17 L (22-30) mmol/L BUN 81 H 85 H (9-20) mg/dL Creatinine 4.62 H 4.67 H (0.66-1.25) mg/dL Glucose 131 H 129 H (74-99) mg/dL Calcium 8.5 8.6 (8.4-10.2) mg/dL Total Bilirubin 0.4 (0.2-1.3) mg/dL AST 21 (17-59) U/L ALT 19 (4-49) U/L Alkaline Phosphatase 143 H (38-126) U/L Total Protein 6.6 (6.3-8.2) g/dL Albumin 3.5 (3.5-5.0) g/dL
[2023-02-15] MEDS: PANTOPRAZOLE 40 MG/10 ML VIAL IVP SCH (16:55)
[2023-02-15 18:16] LABS: Glucose,Whole Blood 279 mg/dL (70-110)
[2023-02-15] MEDS: ATORVASTATIN 10 MG TAB PO SCH (22:15)
[2023-02-16] MEDS: DIALYSIS (PERIT 1.5%) 2,500 ML 37.5 G/2,500 ML BAG INTRAPERIT SCH ×5 (01:03→23:45)
[2023-02-16] MEDS: SODIUM CHLORIDE 0.9% 1,000 ML IV SCH ×2 (05:56→08:33)
[2023-02-16 06:10] LABS: Glucose,Whole Blood 180 mg/dL (70-110)
[2023-02-16] MEDS: LEVOTHYROXINE 50 MCG TAB PO SCH (06:42)
[2023-02-16] MEDS: PANTOPRAZOLE 40 MG/10 ML VIAL IVP SCH (08:34)
[2023-02-16] MEDS ORDERED: LIDOCAINE 2% INJ 20 MG/ML (2 ML VIAL) ONE (08:54)
[2023-02-16] MEDS ORDERED: PROPOFOL 10 MG/ML 20 ML VIAL IV ONE (08:54)
--- NOTE | 2023-02-16 09:19 | P.PCN ---
Date of Procedure: 02/16/23 Procedure(s) Performed: Preoperative Dx: GI bleeding, anemia Postoperative Dx: Mild gastritis, small gastric polyp, moderate sized hiatal hernia Procedure: EGD with Bx Anesthesia: Sedation Endoscopist: Dr. Rainey Specimens: Antrum, gastric polyp Endoscopic Procedure: The patient was on the endoscopy table in the left decubitus position. The Olympus gastroscope was inserted into the oropharynx and passed under direct visualization to the region of the third portion of the duodenum. From that point the scope was slowly withdrawn inspecting all surfaces carefully. There were no neoplastic inflammatory or polypoid lesions throughout the duodenum. The pylorus was widely patent. The stomach was care fully inspected. There was mild gastritis seen. No AVMs or bleeding was seen. There was no old blood in the stomach. A biopsy of the antrum took place to rule out H. pylori. Retroflexion revealed a moderate sized hiatal hernia. A small polyp in the cardia of the stomach above the diaphragmatic hiatus that was biopsied using the cold biopsy forceps. This did not appear to be a source of bleeding. The esophagus was then carefully examined. There were no neoplastic inflammatory or polypoid lesions throughout the visualized esophagus. The patient was then taken to the recovery room in stable condition per anesthesia guidelines. Recommendations: Resume regular diet. Continue to hold anticoagulation. Plan colonoscopy on Sunday.
[2023-02-16] MEDS: DOCUSATE 100 MG CAP PO SCH (09:38)
[2023-02-16] MEDS: MIDODRINE 5 MG TAB PO SCH ×4 (09:38→20:30)
[2023-02-16 11:23] LABS: Glucose,Whole Blood 183 mg/dL (70-110)
--- NOTE | 2023-02-16 11:24 | P.PN ---
Subjective Patient is seen in follow-up for end-stage renal disease. Maintain on peritoneal dialysis. No problems with PD acute changes. Dialysate clear. No abdominal pain. Blood pressure in the systolic 90s. Underwent EGD this morning which showed mild gastritis and moderate sized hiatal hernia. Denies any active bleeding. Hemoglobin 7.7 yesterday. Vital signs are stable. General: No acute distress. HEENT: Head exam is unremarkable. LUNGS: No audible rhonchi or wheezes. HEART: Rate and Rhythm are regular. ABDOMEN: Nontender, obese. EXTREMITITES: No edema. Objective - Vital Signs Vital signs: Vital Signs Temp 97.4 F L 02/16/23 08:29 Pulse 68 02/16/23 10:17 Resp 20 02/16/23 10:17 BP 99/62 02/16/23 10:17 Pulse Ox 96 02/16/23 10:17 FiO2 Intake & Output 02/15/23 02/16/23 02/16/23 18:59 06:59 18:59 Intake Total 310 Output Total 0 Balance 310 0 Weight 113.398 kg 114 kg Intake: Blood Product 310 Rc As-1 Unit 310 [id number] Output: Urine 0 Other: # Voids 0 - Labs CBC & Chem 7: 02/15/23 10:56 02/15/23 02:13 Labs: Abnormal Lab Results - Last 24 Hours (Table) 02/15/23 02/15/23 02/15/23 Range/Units 02:13 10:56 18:14 WBC 13.0 H (3.8-10.6) k/uL RBC 2.41 L (4.30-5.90) m/uL Hgb 7.7 L (13.0-17.5) gm/dL Hct 24.1 L (39.0-53.0) % MCV 100.1 H (80.0-100.0) fL RDW 22.6 H (11.5-15.5) % Neutrophils # 10.8 H (1.3-7.7) k/uL Sodium 128 L (137-145) mmol/L Chloride 93 L (98-107) mmol/L Carbon Dioxide 17 L (22-30) mmol/L BUN 85 H (9-20) mg/dL Creatinine 4.67 H (0.66-1.25) mg/dL Glucose 129 H (74-99) mg/dL POC Glucose (mg/dL) 279 H (70-110) mg/dL 02/16/23 Range/Units 06:09 WBC (3.8-10.6) k/uL RBC (4.30-5.90) m/uL Hgb (13.0-17.5) gm/dL Hct (39.0-53.0) % MCV (80.0-100.0) fL RDW (11.5-15.5) % Neutrophils # (1.3-7.7) k/uL Sodium (137-145) mmol/L Chloride (98-107) mmol/L Carbon Dioxide (22-30) mmol/L BUN (9-20) mg/dL Creatinine (0.66-1.25) mg/dL Glucose (74-99) mg/dL POC Glucose (mg/dL) 180 H (70-110) mg/dL Microbiology - Last 24 Hours (Table) 02/14/23 23:25 Blood Culture - Preliminary Blood 02/14/23 23:40 Blood Culture - Preliminary Blood Assessment and Plan Plan: Assessment: 1. End-stage renal disease maintained on peritoneal dialysis. 2. Acute blood loss anemia status post blood transfusion. Also received IV DDAVP. EGD today showed mild gastritis, small gastric polyp and moderate sized hiatal hernia. Plan for colonoscopy on Sunday. 3. Hypotension maintained on midodrine. Also received 3 L bolus normal saline on admission. Stable. 4. Diabetes mellitus. 5. A. fib. Has pacemaker. Anticoagulation held due to concern for GI bleed. 6. Hypomagnesemia from diuretics. Replaced. 7. Metabolic acidosis secondary to chronic kidney disease. Plan: Maintain PD exchanges - 2.5 L every 6 hours with 1.5% dextrose solution. Check dialysate fluid for cell count, culture and Gram stain. This was ordered yesterday but I'm not sure if it was actually sent out or not. I will reorder. Maintain gentle IV hydration. Follow-up a.m. cortisol level. Follow-up iron studies. Continue to hold diuretics for now.
[2023-02-16 11:29] LABS: Anisocytosis Moderate; Basophils % (A) 0 %; Eosinophils # (A) 0.3 k/uL (0-0.7); Eosinophils % (A) 2 %; HGB 7.3 gm/dL (13.0-17.5); Hypochromasia Slight; Lymphocytes # (A) 1.2 k/uL (1.0-4.8); Lymphocytes % (A) 9 %; MCHC 33.1 g/dL (31.0-37.0); MCV 99.7 fL (80.0-100.0); Macrocytosis Moderate; Mean Platelet Volume 7.7; Monocytes # (A) 0.8 k/uL (0-1.0); Monocytes % (A) 6 %; Neutrophils # (A) 10.2 k/uL (1.3-7.7); Neutrophils % (A) 81 %; Platelet Count 215 k/uL (150-450); Poikilocytosis Slight; RDW 22.7 % (11.5-15.5); WBC 12.6 k/uL (3.8-10.6)
[2023-02-16] MEDS: IPRATROPIUM-ALBUTEROL 3 ML NEB INHALATION PRN ×3 (11:32→20:13)
[2023-02-16 11:39] LABS: ALT 17 U/L (4-49); AST 20 U/L (17-59); African American GFR (CKD) 15 (>60 ml/min/1.73 sqM); Alkaline Phosphatase 81 U/L (38-126); Anion Gap 14 mmol/L; Blood Urea Nitrogen 80 mg/dL (9-20); Calcium 8.5 mg/dL (8.4-10.2); Carbon Dioxide 20 mmol/L (22-30); Chloride 93 mmol/L (98-107); Glucose 159 mg/dL (74-99); Magnesium 1.5 mg/dL (1.6-2.3); Non-African American GFR(CKD) 13 (>60 ml/min/1.73 sqM); Potassium 3.7 mmol/L (3.5-5.1); Sodium 127 mmol/L (137-145); Total Bilirubin 0.7 mg/dL (0.2-1.3); Total Protein 5.7 g/dL (6.3-8.2)
--- NOTE | 2023-02-16 13:33 | P.PN ---
Subjective Progress Note Date: 02/16/23 Pt underwent EGD today and had polyps remvoed but no source fo bleeding. Plan for colonoscopy on Sunday. Gen: awake, alert HEENT: normocephalic, atraumatic, good hearing acuity, moist mucous membranes Resp: good air exchange, breathing comfortably with no accessory muscle use CVS: good distal perfusion x 4, GI: soft, NTTP, ND : no SPT, no CVAT, nicole catheter not present MSK: Bilateral pitting edema, no clubbing Neuro: non-focal, moving all extremities Psych: cooperative, euthymic mood Hospital course: 77 with end-stage renal disease on hemodialysis, diabetes, permanent atrial fibrillation status post pacemaker presented for generalized weakness, lightheadedness, low blood count outside lab. Upon arrival, patient was afebrile, 84/50, 97% on 4 L nasal cannula, heart rate 85. CBC demonstrated leukocytosis to 15.2, hemoglobin 7.2. Basic metabolic panel showed sodium of 128, chloride 90, CO2 21, gap of 17, BUN of 81, creatinine 4.62. Liver function test showed alkaline phosphatase elevation of 143, otherwise unremarkable. BNP was 9050. 97 was 1.4. Coags were unremarkable. EKG showed permanent atrial fibrillation with V paced rhythm. Chest x-ray showed moderate cardiomegaly wit hout acute process. Case was discussed with emergency room physician and decision was made to admit the patient for further evaluation of possible bleeding. Assessment: Acute blood loss anemia Melenic stools Permanent atrial fibrillation on Apixiban Hypertension Hyperlipidemia COPD without exacerbation Diabetes type 2 Hypothyroidism End-stage renal disease on peritoneal dialysis Plan: Today, patient was afebrile, 98/62, heart rate 84, 98% on 3 L of nasal cannula EGD result reviewed today, noted above CBC, basic metabolic panel, magnesium Appreciate nephrology consult, there are no was reviewed, labs from peritoneal dialysate sent for cell count, culture Trend CBC Low-dose sliding scale insulin Colonoscopy on Sunday Gen. surgery consult appreciated Hold anticoagulation Patient is full code Objective - Vital Signs Vital signs: Vital Signs Temp 97.4 F L 02/16/23 11:56 Pulse 84 02/16/23 11:56 Resp 20 02/16/23 11:56 BP 98/62 02/16/23 11:56 Pulse Ox 98 02/16/23 11:56 FiO2 Intake & Output 02/15/23 02/16/23 02/16/23 18:59 06:59 18:59 Intake Total 310 Output Total 0 Balance 310 0 Weight 113.398 kg 114 kg Intake: Blood Product 310 Rc As-1 Unit 310 [id number] Output: Urine 0 Other: # Voids 0 - Labs CBC & Chem 7: 02/16/23 10:50 02/16/23 10:50 Labs: Abnormal Lab Results - Last 24 Hours (Table) 02/15/23 02/16/23 02/16/23 Range/Units 18:14 06:09 10:50 WBC 12.6 H (3.8-10.6) k/uL RBC 2.20 L (4.30-5.90) m/uL Hgb 7.3 L (13.0-17.5) gm/dL Hct 22.0 L (39.0-53.0) % RDW 22.7 H (11.5-15.5) % Neutrophils # 10.2 H (1.3-7.7) k/uL Sodium (137-145) mmol/L Chloride (98-107) mmol/L Carbon Dioxide (22-30) mmol/L BUN (9-20) mg/dL Creatinine (0.66-1.25) mg/dL Glucose (74-99) mg/dL POC Glucose (mg/dL) 279 H 180 H (70-110) mg/dL Phosphorus (2.5-4.5) mg/dL Magnesium (1.6-2.3) mg/dL Total Protein (6.3-8.2) g/dL Albumin (3.5-5.0) g/dL 02/16/23 02/16/23 Range/Units 10:50 11:22 WBC (3.8-10.6) k/uL RBC (4.30-5.90) m/uL Hgb (13.0-17.5) gm/dL Hct (39.0-53.0) % RDW (11.5-15.5) % Neutrophils # (1.3-7.7) k/uL Sodium 127 L (137-145) mmol/L Chloride 93 L (98-107) mmol/L Carbon Dioxide 20 L (22-30) mmol/L BUN 80 H (9-20) mg/dL Creatinine 4.11 H (0.66-1.25) mg/dL Glucose 159 H (74-99) mg/dL POC Glucose (mg/dL) 183 H (70-110) mg/dL Phosphorus 5.0 H (2.5-4.5) mg/dL Magnesium 1.5 L (1.6-2.3) mg/dL Total Protein 5.7 L (6.3-8.2) g/dL Albumin 3.0 L (3.5-5.0) g/dL Microbiology - Last 24 Hours (Table) 02/14/23 23:25 Blood Culture - Preliminary Blood 02/14/23 23:40 Blood Culture - Preliminary Blood
[2023-02-16] MEDS ORDERED: MAGNESIUM SULFATE-D5W PMX 1 GM in DEXTROSE/WATER 1 100ML.BAG IVPB SCH (14:00)
[2023-02-16] MEDS: MAGNESIUM SULFATE-D5W PMX 1 GM in DEXTROSE/WATER 1 100ML.BAG IVPB SCH ×4 (14:29→19:36)
[2023-02-16 14:34] LABS: % Iron Saturation 21.26 (12.00-50.00); Iron 98 UG/DL (50-175); Total Iron Binding Capacity 461 UG/DL (228-460)
[2023-02-16 16:25] LABS: Glucose,Whole Blood 247 mg/dL (70-110)
[2023-02-16] MEDS: INSULIN ASPART (NovoLOG) 100 UNIT/ML VIAL SQ SCH ×2 (17:30→20:30)
[2023-02-16 20:12] LABS: Glucose,Whole Blood 247 mg/dL (70-110)
[2023-02-16] MEDS: ATORVASTATIN 10 MG TAB PO SCH (20:30)
[2023-02-17 03:12] LABS: Appearance,BF Clear (Clear)
[2023-02-17] MEDS: DIALYSIS (PERIT 1.5%) 2,500 ML 37.5 G/2,500 ML BAG INTRAPERIT SCH ×4 (05:38→23:59)
[2023-02-17 06:31] LABS: Glucose,Whole Blood 168 mg/dL (70-110)
[2023-02-17] MEDS: INSULIN ASPART (NovoLOG) 100 UNIT/ML VIAL SQ SCH ×4 (06:45→20:21)
[2023-02-17] MEDS: LEVOTHYROXINE 50 MCG TAB PO SCH (06:45)
[2023-02-17] MEDS: MIDODRINE 5 MG TAB PO SCH ×4 (08:01→20:21)
[2023-02-17] MEDS: PANTOPRAZOLE 40 MG/10 ML VIAL IVP SCH (08:01)
[2023-02-17] MEDS: DOCUSATE 100 MG CAP PO SCH (08:01)
[2023-02-17 10:18] LABS: African American GFR (CKD) 17 (>60 ml/min/1.73 sqM); Anion Gap 16 mmol/L; Blood Urea Nitrogen 73 mg/dL (9-20); Calcium 8.1 mg/dL (8.4-10.2); Carbon Dioxide 21 mmol/L (22-30); Chloride 90 mmol/L (98-107); Glucose 199 mg/dL (74-99); Magnesium 2.2 mg/dL (1.6-2.3); Non-African American GFR(CKD) 14 (>60 ml/min/1.73 sqM); Potassium 3.5 mmol/L (3.5-5.1); Sodium 127 mmol/L (137-145)
[2023-02-17] MEDS: IPRATROPIUM-ALBUTEROL 3 ML NEB INHALATION PRN ×2 (10:38→16:28)
--- NOTE | 2023-02-17 11:30 | P.PN ---
Progress Note - Text Progress Note Date: 02/17/23 Last hemoglobin is 7.3. Patient denies any evidence of acute GI bleed. Patient will be scheduled for colonoscopy Dr. Rainey on Sunday.
[2023-02-17 11:37] LABS: Glucose,Whole Blood 260 mg/dL (70-110)
--- NOTE | 2023-02-17 13:36 | P.PN ---
Subjective Progress Note Date: 02/17/23 Patient's white count stable, requests UA due to concerns for urinary tract infection. Pending colonoscopy on Sunday. Gen: awake, alert HEENT: normocephalic, atraumatic, good hearing acuity, moist mucous membranes Resp: good air exchange, breathing comfortably with no accessory muscle use CVS: good distal perfusion x 4, GI: soft, NTTP, ND : no SPT, no CVAT, nicole catheter not present MSK: Bilateral pitting edema, no clubbing Neuro: non-focal, moving all extremities Psych: cooperative, euthymic mood Hospital course: 77 with end-stage renal disease on hemodialysis, diabetes, permanent atrial fib rillation status post pacemaker presented for generalized weakness, lightheadedness, low blood count outside lab. Upon arrival, patient was afebrile, 84/50, 97% on 4 L nasal cannula, heart rate 85. CBC demonstrated leukocytosis to 15.2, hemoglobin 7.2. Basic metabolic panel showed sodium of 128, chloride 90, CO2 21, gap of 17, BUN of 81, creatinine 4.62. Liver function test showed alkaline phosphatase elevation of 143, otherwise unremarkable. BNP was 9050. 97 was 1.4. Coags were unremarkable. EKG showed permanent atrial fibrillation with V paced rhythm. Chest x-ray showed moderate cardiomegaly without acute process. Case was discussed with emergency room physician and decision was made to admit the patient for further evaluation of possible bleeding. Assessment: Acute blood loss anemia Melenic stools Permanent atrial fibrillation on Apixiban Hypertension Hyperlipidemia COPD without exacerbation Diabetes type 2 Hypothyroidism End-stage renal disease on peritoneal dialysis Plan: Sodium is 127, creatinine is 3.2, BUN is 73, chloride is 90, CO2 is 21. A.m. labs ordered Trend CBC UA ordered Low-dose sliding scale insulin Colonoscopy on Sunday Gen. surgery consult appreciated Hold anticoagulation Patient is full code Objective - Vital Signs Vital signs: Vital Signs Temp 97.7 F 02/17/23 07:56 Pulse 107 H 02/17/23 11:57 Resp 20 02/17/23 11:57 BP 83/55 02/17/23 11:57 Pulse Ox 94 L 02/17/23 11:57 FiO2 Intake & Output 02/16/23 02/17/23 02/17/23 18:59 06:59 18:59 Intake Total 740 120 320 Output Total 0 125 Balance 740 120 195 Weight 114 kg 118 kg Intake: Oral 740 120 320 Output: Urine 0 125 Other: # Voids 1 # Bowel Movements 1 1 - Labs CBC & Chem 7: 02/16/23 10:50 02/17/23 09:05 Labs: Abnormal Lab Results - Last 24 Hours (Table) 02/15/23 02/16/23 02/16/23 Range/Units 02:13 16:23 20:10 Sodium (137-145) mmol/L Chloride (98-107) mmol/L Carbon Dioxide (22-30) mmol/L BUN (9-20) mg/dL Creatinine (0.66-1.25) mg/dL Glucose (74-99) mg/dL POC Glucose (mg/dL) 247 H 247 H (70-110) mg/dL Calcium (8.4-10.2) mg/dL TIBC 461 H (228-460) UG/DL Ferritin 862.0 H (10.0-322.0) ng/mL 02/17/23 02/17/23 02/17/23 Range/Units 06:29 09:05 11:36 Sodium 127 L (137-145) mmol/L Chloride 90 L (98-107) mmol/L Carbon Dioxide 21 L (22-30) mmol/L BUN 73 H (9-20) mg/dL Creatinine 3.82 H (0.66-1.25) mg/dL Glucose 199 H (74-99) mg/dL POC Glucose (mg/dL) 168 H 260 H (70-110) mg/dL Calcium 8.1 L (8.4-10.2) mg/dL TIBC (228-460) UG/DL Ferritin (10.0-322.0) ng/mL Microbiology - Last 24 Hours (Table) 02/14/23 23:25 Blood Culture - Preliminary Blood 02/14/23 23:40 Blood Culture - Preliminary Blood
[2023-02-17 16:11] LABS: Glucose,Whole Blood 224 mg/dL (70-110)
--- NOTE | 2023-02-17 16:14 | P.PN ---
Subjective Progress Note Date: 02/17/23 Follow-up for ESRD on PD. Objective - Vital Signs Vital signs: Vital Signs Temp 97.7 F 02/17/23 07:56 Pulse 107 H 02/17/23 11:57 Resp 20 02/17/23 11:57 BP 83/55 02/17/23 11:57 Pulse Ox 94 L 02/17/23 11:57 FiO2 Intake & Output 02/16/23 02/17/23 02/17/23 18:59 06:59 18:59 Intake Total 740 120 320 Output Total 0 125 Balance 740 120 195 Weight 114 kg 118 kg Intake: Oral 740 120 320 Output: Urine 0 125 Other: # Voids 1 # Bowel Movements 1 1 - Exam No acute distress S1-S2 heard Decreased breath sounds No edema - Labs CBC & Chem 7: 02/16/23 10:50 02/17/23 09:05 Labs: Abnormal Lab Results - Last 24 Hours (Table) 02/16/23 02/16/23 02/17/23 Range/Units 16:23 20:10 06:29 Sodium (137-145) mmol/L Chloride (98-107) mmol/L Carbon Dioxide (22-30) mmol/L BUN (9-20) mg/dL Creatinine (0.66-1.25) mg/dL Glucose (74-99) mg/dL POC Glucose (mg/dL) 247 H 247 H 168 H (70-110) mg/dL Calcium (8.4-10.2) mg/dL 02/17/23 02/17/23 02/17/23 Range/Units 09:05 11:36 16:09 Sodium 127 L (137-145) mmol/L Chloride 90 L (98-107) mmol/L Carbon Dioxide 21 L (22-30) mmol/L BUN 73 H (9-20) mg/dL Creatinine 3.82 H (0.66-1.25) mg/dL Glucose 199 H (74-99) mg/dL POC Glucose (mg/dL) 260 H 224 H (70-110) mg/dL Calcium 8.1 L (8.4-10.2) mg/dL Microbiology - Last 24 Hours (Table) 02/14/23 23:25 Blood Culture - Preliminary Blood 02/14/23 23:40 Blood Culture - Preliminary Blood Assessment and Plan Assessment: #1 ESRD on PD #2 acute blood loss anemia status post transfusion #3 hypotension on midodrine #4 type 2 diabetes #5 metabolic bone disease Plan: #1 continue with current CAPD 2.5 L every every 6 hours with 1.5% dextrose #2 ESRD medications
[2023-02-17 20:15] LABS: Glucose,Whole Blood 236 mg/dL (70-110)
[2023-02-17] MEDS: ATORVASTATIN 10 MG TAB PO SCH (20:21)
[2023-02-17] MEDS: SODIUM CHLORIDE 0.9% 1,000 ML IV SCH (20:21)
[2023-02-18] MEDS ORDERED: CALCIUM CARBONATE 500 MG CHEWABLE PO PRN (04:48)
[2023-02-18] MEDS: DIALYSIS (PERIT 1.5%) 2,500 ML 37.5 G/2,500 ML BAG INTRAPERIT SCH ×4 (05:13→23:32)
[2023-02-18 06:03] LABS: Glucose,Whole Blood 145 mg/dL (70-110)
[2023-02-18] MEDS: INSULIN ASPART (NovoLOG) 100 UNIT/ML VIAL SQ SCH ×4 (06:04→20:19)
[2023-02-18] MEDS: LEVOTHYROXINE 50 MCG TAB PO SCH (06:38)
[2023-02-18] MEDS: IPRATROPIUM-ALBUTEROL 3 ML NEB INHALATION PRN ×4 (07:57→22:33)
[2023-02-18 08:23] LABS: Anisocytosis Moderate; Basophils % (A) 0 %; Eosinophils # (A) 0.4 k/uL (0-0.7); Eosinophils % (A) 4 %; HCT 21.5 % (39.0-53.0); Hypochromasia Moderate; Lymphocytes # (A) 1.3 k/uL (1.0-4.8); Lymphocytes % (A) 14 %; MCH 32.8 pg (25.0-35.0); MCV 102.4 fL (80.0-100.0); Macrocytosis Marked; Mean Platelet Volume 8.1; Monocytes # (A) 0.6 k/uL (0-1.0); Monocytes % (A) 6 %; Neutrophils # (A) 6.8 k/uL (1.3-7.7); Neutrophils % (A) 73 %; Platelet Count 221 k/uL (150-450); Poikilocytosis Slight; WBC 9.2 k/uL (3.8-10.6)
[2023-02-18 08:57] LABS: HGB 6.9 gm/dL (13.0-17.5)
[2023-02-18] MEDS: PANTOPRAZOLE 40 MG/10 ML VIAL IVP SCH (08:57)
[2023-02-18] MEDS: DOCUSATE 100 MG CAP PO SCH (08:58)
[2023-02-18] MEDS: MIDODRINE 5 MG TAB PO SCH ×4 (08:58→23:32)
[2023-02-18 09:17] LABS: African American GFR (CKD) 19 (>60 ml/min/1.73 sqM); Anion Gap 12 mmol/L; Blood Urea Nitrogen 73 mg/dL (9-20); Carbon Dioxide 25 mmol/L (22-30); Chloride 93 mmol/L (98-107); Glucose 151 mg/dL (74-99); Magnesium 2.1 mg/dL (1.6-2.3); Non-African American GFR(CKD) 16 (>60 ml/min/1.73 sqM); Sodium 130 mmol/L (137-145)
[2023-02-18 09:18] LABS: Potassium 3.9 mmol/L (3.5-5.1)
[2023-02-18] MEDS ORDERED: PEG 3350 (236 GM/BTL) + LYTES 4,000 ML BOTTLE PO ONE (09:30)
--- NOTE | 2023-02-18 10:39 | P.PN ---
Progress Note - Text Progress Note Date: 02/18/23 Patient states he feels well. He started his bowel prep. He has pain. He denies any rectal bleeding. His hemoglobin is 6.9 today. On exam vital signs appear stable. Abdomen soft. Patient scheduled for colonoscopy with Dr. Bermudez tomorrow to evaluate for lower GI bleed.
[2023-02-18 11:39] LABS: Glucose,Whole Blood 196 mg/dL (70-110)
--- NOTE | 2023-02-18 12:13 | P.PN ---
Subjective Progress Note Date: 02/18/23 Patient's white count stable, requests UA due to concerns for urinary tract infection. Pending colonoscopy on Sunday. Blood count is 6.9 today, ordered blood transfusion Gen: awake, alert HEENT: normocephalic, atraumatic, good hearing acuity, moist mucous membranes Resp: good air exchange, breathing comfortably with no accessory muscle use CVS: good distal perfusion x 4, GI: soft, NTTP, ND : no SPT, no CVAT, nicole catheter not present MSK: Bilateral pitting edema, no clubbing Neuro: non-focal, moving all extremities Psych: cooperative, euthymic mood Hospital course: 77 with end-stage renal disease on hemodialysis, diabetes, permanent atrial fibrillation status post pacemaker presented for generalized weakness, lightheadedness, low blood count outside lab. Upon arrival, patient was afebri le, 84/50, 97% on 4 L nasal cannula, heart rate 85. CBC demonstrated leukocytosis to 15.2, hemoglobin 7.2. Basic metabolic panel showed sodium of 128, chloride 90, CO2 21, gap of 17, BUN of 81, creatinine 4.62. Liver function test showed alkaline phosphatase elevation of 143, otherwise unremarkable. BNP was 9050. 97 was 1.4. Coags were unremarkable. EKG showed permanent atrial fibrillation with V paced rhythm. Chest x-ray showed moderate cardiomegaly without acute process. Case was discussed with emergency room physician and decision was made to admit the patient for further evaluation of possible bleeding. Assessment: Acute blood loss anemia Melenic stools Permanent atrial fibrillation on Apixiban Hypertension Hyperlipidemia COPD without exacerbation Diabetes type 2 Hypothyroidism End-stage renal disease on peritoneal dialysis Plan: Sodium is 130, creatinine is 3.45, BUN is 73, chloride is 93, CO2 is 25. A.m. labs ordered Trend CBC, ordered 1 U PRBC today UA ordered Low-dose sliding scale insulin Colonoscopy on Sunday Gen. surgery consult appreciated Hold anticoagulation Patient is full code Objective - Vital Signs Vital signs: Vital Signs Temp 97.6 F 02/18/23 08:54 Pulse 72 02/18/23 11:50 Resp 19 02/18/23 09:39 BP 99/64 02/18/23 09:39 Pulse Ox 99 02/18/23 09:39 FiO2 Intake & Output 02/17/23 02/18/23 02/18/23 18:59 06:59 18:59 Intake Total 370 760 Output Total 125 1 Balance 245 759 Weight 118.5 kg Intake: Oral 370 760 Output: Urine 125 Stool 1 Other: Voiding Method Toilet Toilet # Voids 1 - Labs CBC & Chem 7: 02/18/23 07:35 02/18/23 07:35 Labs: Abnormal Lab Results - Last 24 Hours (Table) 02/17/23 02/17/23 02/18/23 Range/Units 16:09 20:14 06:01 RBC (4.30-5.90) m/uL Hgb (13.0-17.5) gm/dL Hct (39.0-53.0) % MCV (80.0-100.0) fL RDW (11.5-15.5) % Macrocytosis Sodium (137-145) mmol/L Chloride (98-107) mmol/L BUN (9-20) mg/dL Creatinine (0.66-1.25) mg/dL Glucose (74-99) mg/dL POC Glucose (mg/dL) 224 H 236 H 145 H (70-110) mg/dL Calcium (8.4-10.2) mg/dL Crossmatch 02/18/23 02/18/23 02/18/23 Range/Units 07:35 07:35 09:39 RBC 2.10 L (4.30-5.90) m/uL Hgb 6.9 L* (13.0-17.5) gm/dL Hct 21.5 L (39.0-53.0) % MCV 102.4 H (80.0-100.0) fL RDW 23.0 H (11.5-15.5) % Macrocytosis Marked A Sodium 130 L (137-145) mmol/L Chloride 93 L (98-107) mmol/L BUN 73 H (9-20) mg/dL Creatinine 3.45 H (0.66-1.25) mg/dL Glucose 151 H (74-99) mg/dL POC Glucose (mg/dL) (70-110) mg/dL Calcium 8.0 L (8.4-10.2) mg/dL Crossmatch See Detail 02/18/23 Range/Units 11:37 RBC (4.30-5.90) m/uL Hgb (13.0-17.5) gm/dL Hct (39.0-53.0) % MCV (80.0-100.0) fL RDW (11.5-15.5) % Macrocytosis Sodium (137-145) mmol/L Chloride (98-107) mmol/L BUN (9-20) mg/dL Creatinine (0.66-1.25) mg/dL Glucose (74-99) mg/dL POC Glucose (mg/dL) 196 H (70-110) mg/dL Calcium (8.4-10.2) mg/dL Crossmatch Microbiology - Last 24 Hours (Table) 02/14/23 23:25 Blood Culture - Preliminary Blood 02/14/23 23:40 Blood Culture - Preliminary Blood
--- NOTE | 2023-02-18 14:43 | P.PN ---
Subjective Progress Note Date: 02/18/23 Follow-up for ESRD on PD. Objective - Vital Signs Vital signs: Vital Signs Temp 96.9 F L 02/18/23 14:35 Pulse 107 H 02/18/23 14:35 Resp 18 02/18/23 14:35 BP 103/65 02/18/23 14:35 Pulse Ox 100 02/18/23 14:35 FiO2 Intake & Output 02/17/23 02/18/23 02/18/23 18:59 06:59 18:59 Intake Total 370 1043 Output Total 125 1 Balance 245 1042 Weight 118.5 kg Intake: Oral 370 760 Blood Product 283 Rc Pheresis 2 As3 Unit 283 [id number] Output: Urine 125 Stool 1 Other: Voiding Method Toilet Toilet # Voids 1 - Exam No acute distress S1-S2 heard Decreased breath sounds No edema - Labs CBC & Chem 7: 02/18/23 07:35 02/18/23 07:35 Labs: Abnormal Lab Results - Last 24 Hours (Table) 02/17/23 02/17/23 02/18/23 Range/Units 16:09 20:14 06:01 RBC (4.30-5.90) m/uL Hgb (13.0-17.5) gm/dL Hct (39.0-53.0) % MCV (80.0-100.0) fL RDW (11.5-15.5) % Macrocytosis Sodium (137-145) mmol/L Chloride (98-107) mmol/L BUN (9-20) mg/dL Creatinine (0.66-1.25) mg/dL Glucose (74-99) mg/dL POC Glucose (mg/dL) 224 H 236 H 145 H (70-110) mg/dL Calcium (8.4-10.2) mg/dL Crossmatch 02/18/23 02/18/23 02/18/23 Range/Units 07:35 07:35 09:39 RBC 2.10 L (4.30-5.90) m/uL Hgb 6.9 L* (13.0-17.5) gm/dL Hct 21.5 L (39.0-53.0) % MCV 102.4 H (80.0-100.0) fL RDW 23.0 H (11.5-15.5) % Macrocytosis Marked A Sodium 130 L (137-145) mmol/L Chloride 93 L (98-107) mmol/L BUN 73 H (9-20) mg/dL Creatinine 3.45 H (0.66-1.25) mg/dL Glucose 151 H (74-99) mg/dL POC Glucose (mg/dL) (70-110) mg/dL Calcium 8.0 L (8.4-10.2) mg/dL Crossmatch See Detail 02/18/23 Range/Units 11:37 RBC (4.30-5.90) m/uL Hgb (13.0-17.5) gm/dL Hct (39.0-53.0) % MCV (80.0-100.0) fL RDW (11.5-15.5) % Macrocytosis Sodium (137-145) mmol/L Chloride (98-107) mmol/L BUN (9-20) mg/dL Creatinine (0.66-1.25) mg/dL Glucose (74-99) mg/dL POC Glucose (mg/dL) 196 H (70-110) mg/dL Calcium (8.4-10.2) mg/dL Crossmatch Microbiology - Last 24 Hours (Table) 02/14/23 23:25 Blood Culture - Preliminary Blood 02/14/23 23:40 Blood Culture - Preliminary Blood Assessment and Plan Assessment: #1 ESRD on PD #2 acute blood loss anemia status post transfusion #3 hypotension on midodrine #4 type 2 diabetes #5 metabolic bone disease Plan: #1 continue with current CAPD 2.5 L every every 6 hours with 1.5% dextrose #2 ESRD medications
[2023-02-18 16:32] LABS: Glucose,Whole Blood 193 mg/dL (70-110)
[2023-02-18] MEDS: SODIUM CHLORIDE 0.9% 1,000 ML IV SCH (17:59)
[2023-02-18 20:15] LABS: Glucose,Whole Blood 173 mg/dL (70-110)
[2023-02-18] MEDS: ATORVASTATIN 10 MG TAB PO SCH (20:19)
[2023-02-18 21:18] LABS: Appearance,Urine Clear (Clear); Color,Urine Yellow
[2023-02-18 21:19] LABS: Bilirubin,Urine Negative (Negative); Blood,Urine Trace (Negative); Glucose,Urine (UA) Negative (Negative); Ketones,Urine Negative (Negative); Leukocyte Esterase,Urine Negative (Negative); Nitrite,Urine Negative (Negative); Protein,Urine Trace (Negative); Urobilinogen,Urine <2.0 mg/dL (<2.0)
[2023-02-18 21:29] LABS: RBC,Urine 0 /hpf (0-5); WBC,Urine 3 /hpf (0-5)
[2023-02-19] MEDS: DIALYSIS (PERIT 1.5%) 2,500 ML 37.5 G/2,500 ML BAG INTRAPERIT SCH ×3 (05:26→17:52)
[2023-02-19 06:24] LABS: Glucose,Whole Blood 156 mg/dL (70-110)
[2023-02-19] MEDS: LEVOTHYROXINE 50 MCG TAB PO SCH (06:31)
[2023-02-19] MEDS: INSULIN ASPART (NovoLOG) 100 UNIT/ML VIAL SQ SCH ×4 (06:32→21:04)
[2023-02-19] MEDS: IPRATROPIUM-ALBUTEROL 3 ML NEB INHALATION PRN ×4 (07:53→20:51)
[2023-02-19] MEDS ORDERED: SODIUM CHLORIDE 0.9% 500 ML 500 ML IV ONE (09:24)
[2023-02-19] MEDS: MIDODRINE 5 MG TAB PO SCH ×4 (09:32→19:50)
[2023-02-19] MEDS: DOCUSATE 100 MG CAP PO SCH (09:32)
[2023-02-19] MEDS: PANTOPRAZOLE 40 MG/10 ML VIAL IVP SCH (09:33)
[2023-02-19 09:48] LABS: Anisocytosis Moderate; Basophils % (A) 0 %; Eosinophils # (A) 0.3 k/uL (0-0.7); Eosinophils % (A) 3 %; HGB 7.6 gm/dL (13.0-17.5); Hypochromasia Moderate; Lymphocytes # (A) 0.9 k/uL (1.0-4.8); Lymphocytes % (A) 10 %; MCH 33.1 pg (25.0-35.0); MCHC 32.9 g/dL (31.0-37.0); MCV 100.8 fL (80.0-100.0); Macrocytosis Moderate; Mean Platelet Volume 7.7; Monocytes # (A) 0.5 k/uL (0-1.0); Monocytes % (A) 5 %; Neutrophils % (A) 81 %; Platelet Count 194 k/uL (150-450); Poikilocytosis Moderate; RBC 2.28 m/uL (4.30-5.90); RDW 21.8 % (11.5-15.5); WBC 9.9 k/uL (3.8-10.6)
[2023-02-19 10:33] LABS: African American GFR (CKD) 27 (>60 ml/min/1.73 sqM); Anion Gap 10 mmol/L; Blood Urea Nitrogen 60 mg/dL (9-20); Calcium 8.1 mg/dL (8.4-10.2); Carbon Dioxide 27 mmol/L (22-30); Chloride 90 mmol/L (98-107); Glucose 167 mg/dL (74-99); Non-African American GFR(CKD) 24 (>60 ml/min/1.73 sqM); Sodium 127 mmol/L (137-145)
[2023-02-19 10:51] LABS: Magnesium 1.9 mg/dL (1.6-2.3)
[2023-02-19 10:59] LABS: Potassium 3.9 mmol/L (3.5-5.1)
[2023-02-19 11:45] LABS: Glucose,Whole Blood 182 mg/dL (70-110)
[2023-02-19] MEDS ORDERED: PHENYLEPHRINE-0.9% NACL SYG 1,000 MCG/10 ML SYRINGE ONE (13:06)
[2023-02-19] MEDS ORDERED: LIDOCAINE 2% INJ 20 MG/ML (2 ML VIAL) ONE (13:06)
[2023-02-19] MEDS ORDERED: PROPOFOL 10 MG/ML 20 ML VIAL IV ONE (13:06)
--- NOTE | 2023-02-19 13:13 | P.PN ---
Subjective Progress Note Date: 02/19/23 Patient's Hgb is responsive to blood, went from 6.9-->7.6 after 1U PRBC. Plan for colonoscopy today Gen: awake, alert HEENT: normocephalic, atraumatic, good hearing acuity, moist mucous membranes Resp: good air exchange, breathing comfortably with no accessory muscle use CVS: good distal perfusion x 4, GI: soft, NTTP, ND : no SPT, no CVAT, nicole catheter not present MSK: Bilateral pitting edema, no clubbing Neuro: non-focal, moving all extremities Psych: cooperative, euthymic mood Hospital course: 77 with end-stage renal disease on hemodialysis, diabetes, permanent atrial fibrillation status post pacemaker presented for generalized weakness, lightheadedness, low blood count outside lab. Upon arrival, patient was afebrile, 84/50, 97% on 4 L nasal cannula, heart rate 85. CBC demonstrated l eukocytosis to 15.2, hemoglobin 7.2. Basic metabolic panel showed sodium of 128, chloride 90, CO2 21, gap of 17, BUN of 81, creatinine 4.62. Liver function test showed alkaline phosphatase elevation of 143, otherwise unremarkable. BNP was 9050. 97 was 1.4. Coags were unremarkable. EKG showed permanent atrial fibrillation with V paced rhythm. Chest x-ray showed moderate cardiomegaly without acute process. Case was discussed with emergency room physician and decision was made to admit the patient for further evaluation of possible bleeding. Patient underwent EGD on 02/16, this was significant for polyps which were removed for pathology but no source of bleeding. He proceeded to colono scopy on 02/19. Assessment: Acute blood loss anemia Melenic stools Permanent atrial fibrillation on Apixiban Hypertension Hyperlipidemia COPD without exacerbation Diabetes type 2 Hypothyroidism End-stage renal disease on peritoneal dialysis Plan: Patient had low blood pressures today of 78/37, was given 500 mL bolus Sodium is 127, creatinine is 2.55, BUN is 60, chloride is 90, CO2 is 27. A.m. labs ordered Trend CBC, transfuse for hemoglobin less than 7 Low-dose sliding scale insulin Colonoscopy today Gen. surgery consult appreciated Hold anticoagulation Nephrology consult appreciated, continue peritoneal dialysis every 6 hours Patient is full code Objective - Vital Signs Vital signs: Vital Signs Temp 97.5 F L 02/19/23 11:47 Pulse 82 02/19/23 11:47 Resp 16 02/19/23 11:47 BP 95/61 02/19/23 11:47 Pulse Ox 99 02/19/23 11:47 FiO2 Intake & Output 02/18/23 02/19/23 02/19/23 18:59 06:59 18:59 Intake Total 1893 Output Total 2 Balance 1891 Weight 122 kg Intake: Oral 1610 Blood Product 283 Rc Pheresis 2 As3 Unit 283 [id number] Output: Urine 0 Stool 1 Urine/Stool Mix 1 Other: Voiding Method Toilet Toilet # Voids 2 1 # Bowel Movements 6 4 - Labs CBC & Chem 7: 02/19/23 09:27 02/19/23 09:27 Labs: Abnormal Lab Results - Last 24 Hours (Table) 02/18/23 02/18/23 02/18/23 Range/Units 09:39 16:31 20:13 RBC (4.30-5.90) m/uL Hgb (13.0-17.5) gm/dL Hct (39.0-53.0) % MCV (80.0-100.0) fL RDW (11.5-15.5) % Neutrophils # (1.3-7.7) k/uL Lymphocytes # (1.0-4.8) k/uL Sodium (137-145) mmol/L Chloride (98-107) mmol/L BUN (9-20) mg/dL Creatinine (0.66-1.25) mg/dL Glucose (74-99) mg/dL POC Glucose (mg/dL) 193 H 173 H (70-110) mg/dL Calcium (8.4-10.2) mg/dL Crossmatch See Detail 02/19/23 02/19/23 02/19/23 Range/Units 06:22 09:27 09:27 RBC 2.28 L (4.30-5.90) m/uL Hgb 7.6 L (13.0-17.5) gm/dL Hct 23.0 L (39.0-53.0) % MCV 100.8 H (80.0-100.0) fL RDW 21.8 H (11.5-15.5) % Neutrophils # 8.0 H (1.3-7.7) k/uL Lymphocytes # 0.9 L (1.0-4.8) k/uL Sodium 127 L (137-145) mmol/L Chloride 90 L (98-107) mmol/L BUN 60 H (9-20) mg/dL Creatinine 2.55 H (0.66-1.25) mg/dL Glucose 167 H (74-99) mg/dL POC Glucose (mg/dL) 156 H (70-110) mg/dL Calcium 8.1 L (8.4-10.2) mg/dL Crossmatch 02/19/23 Range/Units 11:43 RBC (4.30-5.90) m/uL Hgb (13.0-17.5) gm/dL Hct (39.0-53.0) % MCV (80.0-100.0) fL RDW (11.5-15.5) % Neutrophils # (1.3-7.7) k/uL Lymphocytes # (1.0-4.8) k/uL Sodium (137-145) mmol/L Chloride (98-107) mmol/L BUN (9-20) mg/dL Creatinine (0.66-1.25) mg/dL Glucose (74-99) mg/dL POC Glucose (mg/dL) 182 H (70-110) mg/dL Calcium (8.4-10.2) mg/dL Crossmatch
--- NOTE | 2023-02-19 13:24 | P.PN ---
Subjective Patient is seen for follow-up for end-stage renal disease. He was admitted with acute weakness, hypotension and anemia and hemoglobin of 6.9 g/dL yesterday. Status post packed RBCs. Status post EGD on 02/16/2003 with no evidence of active bleeding. Scheduled for colonoscopy today. Hemoglobin 7.6 g/dL today. Blood pressure remains low with systolic in the 90s. It was 73/52 early this morning. Patient remains on midodrine. Cortisol was not low. Objective - Vital Signs Vital signs: Vital Signs Temp 97.5 F L 02/19/23 11:47 Pulse 82 02/19/23 11:47 Resp 16 02/19/23 11:47 BP 95/61 02/19/23 11:47 Pulse Ox 99 02/19/23 11:47 FiO2 Intake & Output 02/18/23 02/19/23 02/19/23 18:59 06:59 18:59 Intake Total 1893 Output Total 2 Balance 1891 Weight 122 kg Intake: Oral 1610 Blood Product 283 Rc Pheresis 2 As3 Unit 283 [id number] Output: Urine 0 Stool 1 Urine/Stool Mix 1 Other: Voiding Method Toilet Toilet # Voids 2 1 # Bowel Movements 6 4 - Exam Awake, comfortable, no acute distress Examination of the heart S1 and S2 Examination of the lungs bilateral breath sounds are heard Abdomen is soft obese nontender Examination lower extremity shows edema 1+ bilaterally with chronic skin changes. MDS RN exam grossly intact - Labs CBC & Chem 7: 02/19/23 09:27 02/19/23 09:27 Labs: Abnormal Lab Results - Last 24 Hours (Table) 02/18/23 02/18/23 02/18/23 Range/Units 09:39 16:31 20:13 RBC (4.30-5.90) m/uL Hgb (13.0-17.5) gm/dL Hct (39.0-53.0) % MCV (80.0-100.0) fL RDW (11.5-15.5) % Neutrophils # (1.3-7.7) k/uL Lymphocytes # (1.0-4.8) k/uL Sodium (137-145) mmol/L Chloride (98-107) mmol/L BUN (9-20) mg/dL Creatinine (0.66-1.25) mg/dL Glucose (74-99) mg/dL POC Glucose (mg/dL) 193 H 173 H (70-110) mg/dL Calcium (8.4-10.2) mg/dL Crossmatch See Detail 02/19/23 02/19/23 02/19/23 Range/Units 06:22 09:27 09:27 RBC 2.28 L (4.30-5.90) m/uL Hgb 7.6 L (13.0-17.5) gm/dL Hct 23.0 L (39.0-53.0) % MCV 100.8 H (80.0-100.0) fL RDW 21.8 H (11.5-15.5) % Neutrophils # 8.0 H (1.3-7.7) k/uL Lymphocytes # 0.9 L (1.0-4.8) k/uL Sodium 127 L (137-145) mmol/L Chloride 90 L (98-107) mmol/L BUN 60 H (9-20) mg/dL Creatinine 2.55 H (0.66-1.25) mg/dL Glucose 167 H (74-99) mg/dL POC Glucose (mg/dL) 156 H (70-110) mg/dL Calcium 8.1 L (8.4-10.2) mg/dL Crossmatch 02/19/23 Range/Units 11:43 RBC (4.30-5.90) m/uL Hgb (13.0-17.5) gm/dL Hct (39.0-53.0) % MCV (80.0-100.0) fL RDW (11.5-15.5) % Neutrophils # (1.3-7.7) k/uL Lymphocytes # (1.0-4.8) k/uL Sodium (137-145) mmol/L Chloride (98-107) mmol/L BUN (9-20) mg/dL Creatinine (0.66-1.25) mg/dL Glucose (74-99) mg/dL POC Glucose (mg/dL) 182 H (70-110) mg/dL Calcium (8.4-10.2) mg/dL Crossmatch Assessment and Plan Assessment: 1. End-stage renal disease on peritoneal dialysis 2. Acute blood loss anemia status post packed RBCs transfusion 3. Hypotension most likely related to anemia. Currently maintained on midodrine. Cortisol level was not low. 4. CK D mineral bone disorder 5. Hyponatremia associated with CK D. Plan: Continue with current PD exchanges Add Aranesp Continue to monitor hemoglobin DC IV fluids Encourage increased oral intake when cleared by surgery.
[2023-02-19] MEDS ORDERED: IV FLUID CONTINUATION 700 ML IV ONE (13:47)
--- NOTE | 2023-02-19 13:48 | P.PCN ---
Date of Procedure: 02/19/23 Procedure(s) Performed: PREOPERATIVE DIAGNOSIS: GI bleed POSTOPERATIVE DIAGNOSIS: Diverticulosis PROCEDURE: Colonoscopy ANESTHESIA: MAC SURGEON: Ole Rainey M.D. SPECIMENS: None ENDOSCOPIC PROCEDURE: The patient was placed on the endoscopy table in the left decubitus position. The Olympus colonoscope was inserted into the anus and passed under direct visualization to the base of the cecum. The appendiceal orifice was visualized. From that point the scope was slowly withdrawn inspecting all surfaces carefully. There were no neoplastic inflammatory or polypoid lesions throughout the cecum, ascending, transverse, descending, sigmoid and rectum. There was mild left-sided diverticulosis noted. There was no red blood or maroon colored stools noted. The bowel contents were slightly dark in appearance. Digital rectal examination was normal. The patient was taken to the recovery room in stable condition per anesthesia guidelines. RECOMMENDATIONS: Resume diet. Monitor hemoglobin. Consider hematology consult if anemia persists.
[2023-02-19] MEDS ORDERED: DARBEPOETIN ALFA 100MCG/0.5ML SYRINGE SQ SCH (14:00)
[2023-02-19 16:44] LABS: Glucose,Whole Blood 213 mg/dL (70-110)
[2023-02-19] MEDS: ATORVASTATIN 10 MG TAB PO SCH (19:50)
[2023-02-19 20:16] LABS: Glucose,Whole Blood 233 mg/dL (70-110)
[2023-02-20] MEDS: DIALYSIS (PERIT 1.5%) 2,500 ML 37.5 G/2,500 ML BAG INTRAPERIT SCH ×5 (00:22→23:06)
[2023-02-20] MEDS: MIDODRINE 5 MG TAB PO SCH ×4 (04:03→21:47)
[2023-02-20 06:14] LABS: Glucose,Whole Blood 164 mg/dL (70-110)
[2023-02-20] MEDS: LEVOTHYROXINE 50 MCG TAB PO SCH (06:32)
[2023-02-20] MEDS: INSULIN ASPART (NovoLOG) 100 UNIT/ML VIAL SQ SCH ×4 (06:32→21:46)
[2023-02-20] MEDS: IPRATROPIUM-ALBUTEROL 3 ML NEB INHALATION PRN ×2 (08:33→11:56)
[2023-02-20] MEDS: DOCUSATE 100 MG CAP PO SCH (09:38)
[2023-02-20] MEDS: PANTOPRAZOLE 40 MG/10 ML VIAL IVP SCH (09:38)
[2023-02-20 11:12] LABS: Anisocytosis Moderate; Basophils % (A) 0 %; Eosinophils # (A) 0.2 k/uL (0-0.7); Eosinophils % (A) 2 %; Hypochromasia Moderate; Lymphocytes # (A) 0.8 k/uL (1.0-4.8); Lymphocytes % (A) 10 %; MCH 32.9 pg (25.0-35.0); MCHC 32.1 g/dL (31.0-37.0); MCV 102.6 fL (80.0-100.0); Macrocytosis Marked; Mean Platelet Volume 8.4; Monocytes # (A) 0.9 k/uL (0-1.0); Monocytes % (A) 11 %; Neutrophils # (A) 5.8 k/uL (1.3-7.7); Neutrophils % (A) 74 %; Platelet Count 288 k/uL (150-450); Poikilocytosis Slight; RBC 2.43 m/uL (4.30-5.90); RDW 21.2 % (11.5-15.5); WBC 7.8 k/uL (3.8-10.6)
[2023-02-20 11:24] LABS: Glucose,Whole Blood 208 mg/dL (70-110)
[2023-02-20 11:37] LABS: African American GFR (CKD) 26 (>60 ml/min/1.73 sqM); Anion Gap 11 mmol/L; Blood Urea Nitrogen 53 mg/dL (9-20); Calcium 8.2 mg/dL (8.4-10.2); Carbon Dioxide 26 mmol/L (22-30); Chloride 92 mmol/L (98-107); Glucose 178 mg/dL (74-99); Magnesium 1.8 mg/dL (1.6-2.3); Non-African American GFR(CKD) 22 (>60 ml/min/1.73 sqM); Sodium 129 mmol/L (137-145)
[2023-02-20] MEDS ORDERED: POTASSIUM CHLORIDE ER 20 MEQ TAB.ER PO STA (11:48)
[2023-02-20] MEDS ORDERED: POTASSIUM CHLORIDE 20 MEQ in WATER FOR INJECTION 1 100ML.BAG IVPB STA (11:48)
--- NOTE | 2023-02-20 12:18 | P.PN ---
Subjective Patient is seen for follow-up for end-stage renal disease. He was admitted with acute weakness, hypotension and anemia and hemoglobin of 6.9 g/dL . Status post packed RBCs. Status post EGD on 02/16/2003 with no evidence of active bleeding. Status post colonoscopy 02/19/2023 with no obvious source of bleeding noted. Hemoglobin 8.0 g/dL today. Blood pressure remains low with systolic in the 90s. It was 78/42 early this morning. Patient remains on midodrine. Cortisol was not low. Complaining of increased swelling in the legs and arms. No shortness of breath. Objective - Vital Signs Vital signs: Vital Signs Temp 97.2 F L 02/20/23 08:30 Pulse 84 02/20/23 12:03 Resp 16 02/20/23 08:30 BP 125/83 02/20/23 08:30 Pulse Ox 96 02/20/23 08:33 FiO2 Intake & Output 02/19/23 02/20/23 02/20/23 18:59 06:59 18:59 Intake Total 700 Balance 700 Intake: IV 200 Intake, IV Titration 500 Amount Sodium Chloride 0.9% 500 500 ml 500 ml @ 999 mls/hr IV .Q31M ONE Rx#:[id number] Other: Voiding Method Toilet Toilet # Voids 1 # Bowel Movements 0 - Exam Awake, comfortable, no acute distress Examination of the heart S1 and S2 Examination of the lungs bilateral breath sounds are heard Abdomen is soft obese nontender Examination lower extremity shows edema 1+ bilaterally with chronic skin changes. Edema of bilateral upper extremities noted as well PATIENT REGISTRATION MANAGER exam grossly intact - Labs CBC & Chem 7: 02/20/23 10:36 02/20/23 10:36 Labs: Abnormal Lab Results - Last 24 Hours (Table) 02/19/23 02/19/23 02/20/23 Range/Units 16:43 20:15 06:13 RBC (4.30-5.90) m/uL Hgb (13.0-17.5) gm/dL Hct (39.0-53.0) % MCV (80.0-100.0) fL RDW (11.5-15.5) % Lymphocytes # (1.0-4.8) k/uL Macrocytosis Sodium (137-145) mmol/L Potassium (3.5-5.1) mmol/L Chloride (98-107) mmol/L BUN (9-20) mg/dL Creatinine (0.66-1.25) mg/dL Glucose (74-99) mg/dL POC Glucose (mg/dL) 213 H 233 H 164 H (70-110) mg/dL Calcium (8.4-10.2) mg/dL 02/20/23 02/20/23 02/20/23 Range/Units 10:36 10:36 11:23 RBC 2.43 L (4.30-5.90) m/uL Hgb 8.0 L (13.0-17.5) gm/dL Hct 25.0 L (39.0-53.0) % MCV 102.6 H (80.0-100.0) fL RDW 21.2 H (11.5-15.5) % Lymphocytes # 0.8 L (1.0-4.8) k/uL Macrocytosis Marked A Sodium 129 L (137-145) mmol/L Potassium 3.0 L (3.5-5.1) mmol/L Chloride 92 L (98-107) mmol/L BUN 53 H (9-20) mg/dL Creatinine 2.66 H (0.66-1.25) mg/dL Glucose 178 H (74-99) mg/dL POC Glucose (mg/dL) 208 H (70-110) mg/dL Calcium 8.2 L (8.4-10.2) mg/dL Microbiology - Last 24 Hours (Table) 02/14/23 23:25 Blood Culture - Final Blood 02/14/23 23:40 Blood Culture - Final Blood Assessment and Plan Assessment: 1. End-stage renal disease on peritoneal dialysis 2. Acute blood loss anemia status post packed RBCs transfusion. No obvious source of GI bleed identified on EGD and colonoscopy. Hematology will be cons ulted. Maintained on Aranesp 3. Hypotension most likely related to anemia. Currently maintained on midodrine. Cortisol level was not low. 4. CK D mineral bone disorder 5. Hyponatremia associated with CK D. Plan: Continue with current PD exchanges Continue Aranesp Continue to monitor hemoglobin DC IV fluids Encourage increased oral intake Repeat echocardiogram Consult hematology.
--- NOTE | 2023-02-20 13:00 | CA ---
Transthoracic Echo Report Name: Tristian Galloway Age: 77 Gender: M : 1945 Exam Date: 02/20/2023 10:43 Exam Location: [facility] Ht (in): 70 Wt (lb): 250 Ordering Physician: Corin Cortez MD Attending/Referring Phys: Testing Manager Milvia Luna RDCS Procedure CPT: Indications: Hypotension Cardiac Hx: Technical Quality: Technically difficult study Contrast 1: Total Dose (mL): Contrast 2: Total Dose (mL): MEASUREMENTS (Male / Female) Normal Values 2D ECHO LV Diastolic Diameter PLAX 5.0 cm 4.2 - 5.9 / 3.9 - 5.3 cm LV Systolic Diameter PLAX 3.7 cm IVS Diastolic Thickness 1.5 cm 0.6 - 1.0 / 0.6 - 0.9 cm LVPW Diastolic Thickness 1.4 cm 0.6 - 1.0 / 0.6 - 0.9 cm LV Relative Wall Thickness 0.6 RV Internal Dim ED PLAX 4.5 cm LA Systolic Diameter LX 3.8 cm 3.0 - 4.0 / 2.7 - 3.8 cm LV Systolic Volume MOD 4C 35.8 cm??? LV Systolic Length 4C 6.3 cm M-MODE Aortic Root Diameter MM 3.9 cm MV E Point Septal Separation 0.5 cm AV Cusp Separation MM 2.7 cm DOPPLER AV Peak Velocity 133.6 cm/s AV Peak Gradient 7.1 mmHg MV Area PHT 4.8 cm??? MV Deceleration Time 203.0 ms TR Peak Velocity 328.7 cm/s TR Peak Gradient 43.2 mmHg Right Ventricular Systolic Press 57.8 mmHg FINDINGS Left Ventricle Left ventricular ejection fraction is estimated at 35-40 %. Left ventricular cavity size normal. Moderately increased septal wall thickness. Flattening of atrial septum in systole and diastole Right Ventricle Severe right ventricular dilatation. Severe pulmonary hypertension. Right Atrium Right atrium not well visualized. Left Atrium Normal left atrial size. Mitral Valve Mitral annular calcification. Mild mitral regurgitation. Aortic Valve Trileaflet aortic valve. Aortic valve sclerosis. Tricuspid Valve Structurally normal tricuspid valve. Mild tricuspid regurgitation. Pulmonic Valve Pulmonic valve not well visualized. Pericardium Normal pericardium. No pericardial effusion. Aorta Mild aortic dilatation at the level of the sinuses of valsalva 39 mm CONCLUSIONS Left ventricular ejection fraction 35-40% Moderately increased septal wall thickening Severe right ventricular dilation RVSP 58 Mild mitral regurgitation Mild tricuspid regurgitation Previewed by: Dr. Hal Rodriguez DO (Electronically Signed) Final Date: 20 February 2023 12:58
[2023-02-20 13:46] VITALS: BMI 37.5
--- NOTE | 2023-02-20 14:29 | P.PN ---
Subjective Progress Note Date: 02/20/23 CHIEF COMPLAINT: GI bleed HISTORY OF PRESENT ILLNESS: Patient status post colonoscopy revealing diverticu losis. No active bleeding. Patient had had no further bowel movements since colonoscopy. WBC 7.8 Hgb is up from 7.6-8.0 platelets 288 service 129 potassium 3.0 creatinine 2.66 patient denies any abdominal pain. PHYSICAL EXAM: VITAL SIGNS: Reviewed. GENERAL: Well-developed in no acute distress. ABDOMEN: Soft. Nondistended. Nontender. NEUROLOGIC: Alert and oriented. Cranial nerves II through XII grossly intact. ASSESSMENT: 1. Anemia 2. GI bleed status post EGD revealing gastritis, small gastric polyp and moderate hiatal hernia. Status post colonoscopy revealing diverticulosis. 3. Hypokalemia PLAN: -Agree with hematology consult -Continue to monitor hemoglobin -Continue PPI -Potassium being replaced Physician Scheduler Maintenance note has been reviewed by physician. Signing provider agrees with the documented findings, assessment, and plan of care. I have personally seen and examined the patient, reviewed the [employer]ARONI PRESS OPERATOR /PAs history, exam and MDM and agree with the assessment and plan as written. Based on total visit time, I have performed more than 50% of the visit. As above: GI consulted for Endoscopy. Hematology Also Consulted. No Surgical Intervention Planned. We'll Sign off. Please Call If Needed. Objective - Vital Signs Vital signs: Vital Signs Temp 98.3 F 02/20/23 12:00 Pulse 84 02/20/23 12:03 Resp 16 02/20/23 12:00 BP 107/68 02/20/23 12:00 Pulse Ox 100 02/20/23 12:00 FiO2 Intake & Output 02/19/23 02/20/23 02/20/23 18:59 06:59 18:59 Intake Total 700 658 Balance 700 658 Weight 122 kg Intake: IV 200 Intake, IV Titration 500 Amount Sodium Chloride 0.9% 500 500 ml 500 ml @ 999 mls/hr IV .Q31M ONE Rx#:[id number] Oral 658 Other: Voiding Method Toilet Toilet # Voids 1 # Bowel Movements 0 - Labs CBC & Chem 7: 02/20/23 10:36 02/20/23 10:36 Labs: Abnormal Lab Results - Last 24 Hours (Table) 02/19/23 02/19/23 02/20/23 Range/Units 16:43 20:15 06:13 RBC (4.30-5.90) m/uL Hgb (13.0-17.5) gm/dL Hct (39.0-53.0) % MCV (80.0-100.0) fL RDW (11.5-15.5) % Lymphocytes # (1.0-4.8) k/uL Macrocytosis Sodium (137-145) mmol/L Potassium (3.5-5.1) mmol/L Chloride (98-107) mmol/L BUN (9-20) mg/dL Creatinine (0.66-1.25) mg/dL Glucose (74-99) mg/dL POC Glucose (mg/dL) 213 H 233 H 164 H (70-110) mg/dL Calcium (8.4-10.2) mg/dL 02/20/23 02/20/23 02/20/23 Range/Units 10:36 10:36 11:23 RBC 2.43 L (4.30-5.90) m/uL Hgb 8.0 L (13.0-17.5) gm/dL Hct 25.0 L (39.0-53.0) % MCV 102.6 H (80.0-100.0) fL RDW 21.2 H (11.5-15.5) % Lymphocytes # 0.8 L (1.0-4.8) k/uL Macrocytosis Marked A Sodium 129 L (137-145) mmol/L Potassium 3.0 L (3.5-5.1) mmol/L Chloride 92 L (98-107) mmol/L BUN 53 H (9-20) mg/dL Creatinine 2.66 H (0.66-1.25) mg/dL Glucose 178 H (74-99) mg/dL POC Glucose (mg/dL) 208 H (70-110) mg/dL Calcium 8.2 L (8.4-10.2) mg/dL Microbiology - Last 24 Hours (Table) 02/14/23 23:25 Blood Culture - Final Blood 02/14/23 23:40 Blood Culture - Final Blood
--- NOTE | 2023-02-20 14:31 | P.CONS ---
History of Present Illness - Reason for Consult Consult date: 02/20/23 Possible capsule endoscopy Requesting physician: Troy Hui - Chief Complaint Shortness of breath - History of Present Illness 77-year-old male who presented to the emergency department on 02/14/2023 with complaints of shortness of breath with persistent anxiety. He has a past medical history including atrial fibrillation COPD, end-stage renal disease on peritoneal dialysis, congestive heart failure, diabetes mellitus, thyroid disorder, hypertension, hyperlipidemia, and sleep apnea on CPAP. Gen. surgery was consulted for anemia. Patient was reporting that he had dark stool however he has been on oral iron. Denies any colleen blood in his stool. He was seen by general surgery who performed EGD with findings of mild gastritis, small gastric polyp and moderate size hiatal hernia. He also underwent colonoscopy yesterday with findings of diverticulosis without any active bleeding noted. Labs are consistent with a normochromic normocytic anemia, iron and peritenon are also within normal range. Gastroenterology was consulted for possible small bowel capsule endoscopy. Review of Systems REVIEW OF SYSTEMS: CARDIOPULMONARY: No chest pain or shortness of breath. Gastrointestinal: The patient denies any abdominal pain, no epigastric pain. No nausea or vomiting. No hematemesis, coffee-ground emesis. No rectal bleedin g, or melena. Patient reports dark stools but is on iron. GENITOURINARY: No dysuria or hematuria. MUSCULOSKELETAL: Reports normal range of motion. SKIN: No rashes. No jaundice. ENDOCRINE: No chills, fevers. No excessive weight gain or loss. No polydipsia or polyuria. PSYCHIATRIC: Unremarkable. NEUROLOGY: No change in mental status. Denies dizziness, headache. ENT: Vision unremarkable. CONSTITUTIONAL: No recent weight loss. No fever, chills, night sweats. Past Medical History Past Medical History: Atrial Fibrillation, COPD, Diabetes Mellitus, Dialysis, GERD/Reflux, Hyperlipidemia, Hypertension, Osteoarthritis (OA), Renal Disease, Sleep Apnea/CPAP/BIPAP, Thyroid Disorder Additional Past Medical History / Comment(s): O2 3L per nasal cannula. Dialysis MOWEFR. Cardiomyopathy. Gout. Constipation. 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 hemodialysis cath, Past Anesthesia/Blood Transfusion Reactions: No Reported Reaction Type of Cardiac Device: Permanent Pacemaker Device Placement Date:: 10/17/2012 Smoking Status: Former smoker - Past Family History Father History Unknown: Yes Additional Family Medical History / Comment(s): "hardening of the arteries" Mother History Unknown: Yes Additional Family Medical History / Comment(s): "water in the lungs" at 95. Medications and Allergies Home Medications Medication Instructions Recorded Confirmed Type allopurinoL [Zyloprim] 300 mg PO DAILY 11/21/14 02/14/23 History Acetaminophen Tab [Tylenol] 325 mg PO QID PRN 07/12/16 02/14/23 History Multivitamins, Thera [Multivitamin 1 tab PO DAILY 10/03/17 02/14/23 History (formulary)] Albuterol Sulfate [Proair Hfa] 2 puff INHALATION RT-QID PRN 06/23/18 02/14/23 History Levothyroxine Sodium [Synthroid] 50 mcg PO DAILY 05/24/21 02/15/23 History Lovastatin [Altoprev] 40 mg PO HS 05/24/21 02/14/23 History Ipratropium-Albuterol Nebulize 3 ml INHALATION RT-Q6H PRN 08/09/21 02/14/23 History [Duoneb 0.5 mg-3 mg/3 ml Soln] Apixaban [Eliquis] 5 mg PO BID 09/28/21 02/15/23 History Aspirin [Adult Low Dose Aspirin EC] 81 mg PO DAILY 03/29/22 02/14/23 History Lactulose 10 gm PO BID PRN 03/29/22 02/14/23 History Omeprazole 40 mg PO DAILY 03/29/22 02/14/23 History Torsemide [Demadex] 80 mg PO DAILY 03/29/22 02/14/23 History traMADol HCl [Ultram] 50 mg PO Q6H PRN #6 tab 03/30/22 02/14/23 Rx Calcium Carbonate [Tums] 500 mg PO DAILY 02/14/23 02/14/23 History Docusate Calcium 240 mg PO DAILY 02/14/23 02/14/23 History Ferrous Sulfate [Feosol] 325 mg PO DAILY 02/14/23 02/14/23 History Gentamicin 0.1% Cream 1 applic TOPICAL DAILY 02/14/23 02/14/23 History Midodrine HCl [ProAmatine] 10 mg PO QID 02/14/23 02/14/23 History Potassium Chloride ER [K-Dur 10] 20 meq PO DAILY 02/14/23 02/14/23 History glipiZIDE [Glucotrol] 10 mg PO HS 02/14/23 02/14/23 History glipiZIDE [Glucotrol] 20 mg PO DAILY 02/14/23 02/14/23 History metOLazone [Zaroxolyn] 10 mg PO DAILY 02/14/23 02/14/23 History methocarbamoL [Methocarbamol] 500 mg PO HS 02/14/23 02/14/23 History Sucralfate [Carafate] 1 gm PO BID 02/15/23 02/15/23 History Allergies Allergy/AdvReac Type Severity Reaction Status Date / Time lisinopril AdvReac Cough Verified 02/15/23 09:24 Physical Exam Vitals: Vital Signs Temp Pulse Pulse Pulse Resp BP BP 02/20/23 12:03 84 02/20/23 12:00 98.3 F 90 16 02/20/23 11:57 90 02/20/23 08:40 96 02/20/23 08:33 98 02/20/23 08:30 97.2 F L 76 16 02/20/23 04:58 94/50 02/20/23 03:55 98.1 F 67 16 78/42 02/19/23 23:53 97.6 F 77 16 02/19/23 21:06 77 02/19/23 20:52 80 02/19/23 19:42 97.6 F 65 14 02/19/23 18:48 97.5 F L 89 16 107/63 02/19/23 15:54 97.5 F L 107 H 16 99/61 02/19/23 15:26 82 02/19/23 15:14 82 BP Pulse Ox 02/20/23 12:03 02/20/23 12:00 107/68 100 02/20/23 11:57 02/20/23 08:40 02/20/23 08:33 96 02/20/23 08:30 125/83 100 02/20/23 04:58 02/20/23 03:55 94 L 02/19/23 23:53 92/57 96 02/19/23 21:06 02/19/23 20:52 02/19/23 19:42 86/54 92 L 02/19/23 18:48 96 02/19/23 15:54 94 L 02/19/23 15:26 02/19/23 15:14 Intake and Output 02/19/23 02/20/23 02/20/23 22:59 06:59 14:59 Intake Total 658 Balance 658 Intake: Oral 658 Other: Voiding Method Toilet Toilet Toilet # Voids 1 # Bowel Movements 0 Weight 122 kg General appearance: The patient is alert, oriented, appears in no acute distress. Obese. HET: Head is normocephalic and atraumatic. Conjunctiva pink. Sclera anicteric. Neck: Supple without lymphadenopathy. Trachea midline. Heart: S1 S2. Regular rate and rhythm. Lungs: Clear to auscultation. Abdomen: Soft, nontender, nondistended with bowel sounds. No guarding or rigidity. Skin: No rashes. No jaundice. Extremities: Normal skin color and turgor. No pedal edema. Neurological: No focal deficits. Alert and oriented x3. Results CBC & Chem 7: 02/20/23 10:36 02/20/23 10:36 Labs: Abnormal Lab Results - Last 24 Hours (Table) 02/19/23 02/19/23 02/20/23 Range/Units 16:43 20:15 06:13 RBC (4.30-5.90) m/uL Hgb (13.0-17.5) gm/dL Hct (39.0-53.0) % MCV (80.0-100.0) fL RDW (11.5-15.5) % Lymphocytes # (1.0-4.8) k/uL Macrocytosis Sodium (137-145) mmol/L Potassium (3.5-5.1) mmol/L Chloride (98-107) mmol/L BUN (9-20) mg/dL Creatinine (0.66-1.25) mg/dL Glucose (74-99) mg/dL POC Glucose (mg/dL) 213 H 233 H 164 H (70-110) mg/dL Calcium (8.4-10.2) mg/dL 02/20/23 02/20/23 02/20/23 Range/Units 10:36 10:36 11:23 RBC 2.43 L (4.30-5.90) m/uL Hgb 8.0 L (13.0-17.5) gm/dL Hct 25.0 L (39.0-53.0) % MCV 102.6 H (80.0-100.0) fL RDW 21.2 H (11.5-15.5) % Lymphocytes # 0.8 L (1.0-4.8) k/uL Macrocytosis Marked A Sodium 129 L (137-145) mmol/L Potassium 3.0 L (3.5-5.1) mmol/L Chloride 92 L (98-107) mmol/L BUN 53 H (9-20) mg/dL Creatinine 2.66 H (0.66-1.25) mg/dL Glucose 178 H (74-99) mg/dL POC Glucose (mg/dL) 208 H (70-110) mg/dL Calcium 8.2 L (8.4-10.2) mg/dL Microbiology - Last 24 Hours (Table) 02/14/23 23:25 Blood Culture - Final Blood 02/14/23 23:40 Blood Culture - Final Blood Assessment and Plan (1) Anemia Narrative/Plan: 77-year-old male who came in with shortness of breath with multiple comorbi dities presented with normochromic normocytic anemia. Iron studies ordered with mildly low iron but normal ferritin. Anemia is likely anemia of chronic disease. Patient underwent EGD and colonoscopy without any evidence of old blood or active bleeding noted. Patient without any signs of GI blood loss including blood in the stool or black stool. Patient states he has dark stool but he has also been on oral iron in the outpatient setting. Gastroenterology consulted and will finish workup for possible GI blood loss and to include a small capsule endoscopy study. Current Visit: Yes Status: Acute Code(s): D64.9 - ANEMIA, UNSPECIFIED SNOMED Code(s): 198053259 (2) COPD (chronic obstructive pulmonary disease) Current Visit: Yes Status: Acute Code(s): J44.9 - CHRONIC OBSTRUCTIVE PULMONARY DISEASE, UNSPECIFIED SNOMED Code(s): 37915392 (3) Atrial fibrillation Current Visit: No Status: Acute Code(s): I48.91 - UNSPECIFIED ATRIAL FIBRILLATION SNOMED Code(s): 31459294 (4) Congestive heart failure Current Visit: No Status: Acute Code(s): I50.9 - HEART FAILURE, UNSPECIFIED SNOMED Code(s): 63285950 (5) Diabetes Current Visit: No Status: Acute Code(s): E11.9 - TYPE 2 DIABETES MELLITUS WITHOUT COMPLICATIONS SNOMED Code(s): 79397785 (6) Obstructive sleep apnea Current Visit: No Status: Acute Code(s): G47.33 - OBSTRUCTIVE SLEEP APNEA (ADULT) (PEDIATRIC) SNOMED Code(s): 52778719 (7) End-stage renal disease on peritoneal dialysis Current Visit: Yes Status: Acute Code(s): N18.6 - END STAGE RENAL DISEASE; Z99.2 - DEPENDENCE ON RENAL DIALYSIS SNOMED Code(s): 211430269 Plan: 1. Continue symptomatic and supportive care 2. Nothing by mouth after midnight 3. Magnesium citrate at 1900 4. Daily CBC, transfuse for hemoglobin less than 7 5. Patient underwent upper and lower endoscopy without any evidence of active bleeding or old blood noted Thank you for this consultation, will continue to follow. Dr. Samy Matos I agree with the dictator's note, documented as a scribe by Ginny Wolfe.
--- NOTE | 2023-02-20 15:57 | P.PN ---
Subjective Progress Note Date: 02/20/23 77 year old M with end-stage renal disease on hemodialysis, diabetes, permanent atrial fibrillation status post pacemaker presented for generalized weakness, lightheadedness, low Hg on outside lab. Upon arrival, patient was afebrile, 84/50, 97% on 4 L nasal cannula, heart rate 85. CBC demonstrated leukocytosis to 15.2, hemoglobin 7.2. Basic metabolic panel showed sodium of 128, chloride 90, CO2 21, gap of 17, BUN of 81, creatinine 4.62. Liver function test showed alkaline phosphatase elevation of 143, otherwise unremarkable. BNP was 9050. Coags were unremarkable. EKG showed permanent atrial fibrillation with V paced rhythm. Chest x-ray showed moderate cardiomegaly without acute process. Case was discussed with emergency room physician and decision was made to admit the patient for further evaluation of possible bleeding. Patient underwent EGD on 02/16, this was significant for polyps which were removed for pathology but no source of bleeding. He proceeded to colonoscopy on 02/19. He was transfused 2 units of PRBC for Hg of 6.9 on 02/18. Colonoscopy showed diverticulosis. Pertinent studies include chest x-ray, EKG. Pertinent procedures include EGD and colonoscopy. 02/20 Patient was seen and examined. Patient reports no bowel movements since colonoscopy. He would like to know why his Hg is so low. CBC shows Hg of 8 with MCV 102.6. BMP shows Na 129, K 3, Cl 92, BUN 53, Cr 2.66, glucose 178. BP is 78/42, P 67, T 98.1F, 94% on CPAP. BP on repeat is 94/50. CBC, BMP and Mag level is pending this morning. General: non toxic, no distress, appears at stated age Derm: warm, dry Head: atraumatic, normocephalic, symmetric Eyes: EOMI, no lid lag, anicteric sclera Cardiovascular: Good distal perfusion all 4 extremities Resp: good air exchange, breathing comfortably with no accessory muscle use Ext: no gross muscle atrophy, no edema, no contractures Neuro: no focal neuro deficits Psych: Alert, oriented, appropriate affect Acute blood loss anemia Hypokalemia Melenic stools Permanent atrial fibrillation on Apixiban Hypertension Hyperlipidemia COPD without exacerbation Diabetes type 2 Hypothyroidism End-stage renal disease on peritoneal dialysis Based on my assessment of this patient, this patient meets a moderate complexity level of care. Patient has a new diagnosis of acute blood loss anemia secondary to GI bleed with uncertain prognosis. Acute blood loss anemia: Repeat CBC tomorrow morning. Transfuse if Hg < 7. Hypokalemia: Replace with 20 meq IV and 40 meq PO. Repeat BMP tomorrow morning. Melenic stools: GI consulted for capsule endoscopy. NPO after midnight for capsule endoscopy. Hematology consulted. Permanent atrial fibrillation on Apixiban: Hold Apixaban. Hypertension Hyperlipidemia COPD without exacerbation Diabetes type 2 Hypothyroidism End-stage renal disease on peritoneal dialysis: Nephrology on board. I have reviewed the following systems management consultant notes: GI note, surgery note, nephrology note reviewed. I have reviewed the results of the following tests: CBC and BMP reviewed. I have ordered the following tests: CBC and BMP ordered for tomorrow morning. I have discussed the care of this patient with the following independent historian: I have independently interpreted the following test below: I have discussed the management of this patient with the following physician: Objective - Vital Signs Vital signs: Vital Signs Temp 98.1 F 02/20/23 03:55 Pulse 67 02/20/23 03:55 Resp 16 02/20/23 03:55 BP 94/50 02/20/23 04:58 Pulse Ox 94 L 02/20/23 03:55 FiO2 Intake & Output 02/19/23 02/20/23 02/20/23 18:59 06:59 18:59 Intake Total 700 Balance 700 Intake: IV 200 Intake, IV Titration 500 Amount Sodium Chloride 0.9% 500 500 ml 500 ml @ 999 mls/hr IV .Q31M ONE Rx#:[id number] Other: Voiding Method Toilet # Voids 1 - Labs CBC & Chem 7: 02/20/23 10:36 02/20/23 10:36 Labs: Abnormal Lab Results - Last 24 Hours (Table) 02/19/23 02/19/23 02/19/23 Range/Units 09:27 09:27 11:43 RBC 2.28 L (4.30-5.90) m/uL Hgb 7.6 L (13.0-17.5) gm/dL Hct 23.0 L (39.0-53.0) % MCV 100.8 H (80.0-100.0) fL RDW 21.8 H (11.5-15.5) % Neutrophils # 8.0 H (1.3-7.7) k/uL Lymphocytes # 0.9 L (1.0-4.8) k/uL Sodium 127 L (137-145) mmol/L Chloride 90 L (98-107) mmol/L BUN 60 H (9-20) mg/dL Creatinine 2.55 H (0.66-1.25) mg/dL Glucose 167 H (74-99) mg/dL POC Glucose (mg/dL) 182 H (70-110) mg/dL Calcium 8.1 L (8.4-10.2) mg/dL 02/19/23 02/19/23 02/20/23 Range/Units 16:43 20:15 06:13 RBC (4.30-5.90) m/uL Hgb (13.0-17.5) gm/dL Hct (39.0-53.0) % MCV (80.0-100.0) fL RDW (11.5-15.5) % Neutrophils # (1.3-7.7) k/uL Lymphocytes # (1.0-4.8) k/uL Sodium (137-145) mmol/L Chloride (98-107) mmol/L BUN (9-20) mg/dL Creatinine (0.66-1.25) mg/dL Glucose (74-99) mg/dL POC Glucose (mg/dL) 213 H 233 H 164 H (70-110) mg/dL Calcium (8.4-10.2) mg/dL Microbiology - Last 24 Hours (Table) 02/14/23 23:25 Blood Culture - Final Blood 02/14/23 23:40 Blood Culture - Final Blood
[2023-02-20 16:44] LABS: Glucose,Whole Blood 262 mg/dL (70-110)
[2023-02-20] MEDS ORDERED: MAGNESIUM CITRATE 296 ML BOTTLE PO ONE (19:00)
[2023-02-20 20:14] LABS: Glucose,Whole Blood 186 mg/dL (70-110)
[2023-02-20] MEDS: ATORVASTATIN 10 MG TAB PO SCH (21:47)
[2023-02-20] MEDS: methocarbamoL 500 MG TAB PO SCH (22:05)
[2023-02-21] MEDS: DIALYSIS (PERIT 1.5%) 2,500 ML 37.5 G/2,500 ML BAG INTRAPERIT SCH ×3 (05:12→17:28)
[2023-02-21 06:04] LABS: Glucose,Whole Blood 172 mg/dL (70-110)
[2023-02-21] MEDS: INSULIN ASPART (NovoLOG) 100 UNIT/ML VIAL SQ SCH ×4 (06:10→20:03)
[2023-02-21] MEDS: LEVOTHYROXINE 50 MCG TAB PO SCH (06:10)
[2023-02-21] MEDS ORDERED: SIMETHICONE 40 MG/0.6 ML DROPS 2,000 MG/30 ML BOTTLE PO ONE (07:27)
[2023-02-21] MEDS: IPRATROPIUM-ALBUTEROL 3 ML NEB INHALATION PRN ×4 (07:59→20:56)
[2023-02-21 09:20] LABS: Anisocytosis Moderate; HCT 27.5 % (39.0-53.0); HGB 8.5 gm/dL (13.0-17.5); Hypochromasia Moderate; MCH 31.7 pg (25.0-35.0); MCHC 30.7 g/dL (31.0-37.0); MCV 103.3 fL (80.0-100.0); Macrocytosis Marked; Mean Platelet Volume 7.8; Platelet Count 244 k/uL (150-450); Poikilocytosis Slight; RBC 2.67 m/uL (4.30-5.90); RDW 21.1 % (11.5-15.5); Reticulocyte % 7.5 % (0.5-2.0); WBC 8.6 k/uL (3.8-10.6)
[2023-02-21 09:35] LABS: African American GFR (CKD) 24 (>60 ml/min/1.73 sqM); Anion Gap 11 mmol/L; Blood Urea Nitrogen 49 mg/dL (9-20); Calcium 8.4 mg/dL (8.4-10.2); Carbon Dioxide 27 mmol/L (22-30); Chloride 94 mmol/L (98-107); Glucose 158 mg/dL (74-99); Non-African American GFR(CKD) 21 (>60 ml/min/1.73 sqM); Potassium 3.3 mmol/L (3.5-5.1); Sodium 132 mmol/L (137-145)
[2023-02-21 11:16] LABS: Glucose,Whole Blood 177 mg/dL (70-110)
[2023-02-21] MEDS: DOCUSATE 100 MG CAP PO SCH (11:37)
[2023-02-21] MEDS: PANTOPRAZOLE 40 MG/10 ML VIAL IVP SCH (11:37)
[2023-02-21] MEDS: MIDODRINE 5 MG TAB PO SCH ×4 (11:37→20:02)
[2023-02-21 12:27] LABS: % Iron Saturation 10.28 (12.00-50.00); Iron 41 UG/DL (50-175); Total Iron Binding Capacity 399 UG/DL (228-460)
[2023-02-21] MEDS ORDERED: POTASSIUM CHLORIDE ER 20 MEQ TAB.ER PO STA (12:31)
--- NOTE | 2023-02-21 12:31 | P.PN ---
Subjective Patient is seen for follow-up for end-stage renal disease. He was admitted with acute weakness, hypotension and anemia and hemoglobin of 6.9 g/dL . Status post packed RBCs. Status post EGD on 02/16/2003 with no evidence of active bleeding. Status post colonoscopy 02/19/2023 with no obvious source of bleeding noted. Currently being followed by GI and capsule Endoscopy in progress. Hemoglobin 8.5 g/dL today. No active bleeding. Blood pressure remains low with systolic in the 90s. Patient remains on midodrine. Cortisol was not low. Complaining of increased swelling in the legs and arms. No shortness of breath. Objective - Vital Signs Vital signs: Vital Signs Temp 98.1 F 02/21/23 08:00 Pulse 107 H 02/21/23 12:13 Resp 18 02/21/23 12:13 BP 88/54 02/21/23 08:00 Pulse Ox 92 L 02/21/23 08:00 FiO2 Intake & Output 02/20/23 02/21/23 02/21/23 18:59 06:59 18:59 Intake Total 1298 Output Total 2 Balance 1298 -2 Weight 122 kg 123.1 kg Intake: Intake, IV Titration 100 Amount Potassium Chloride 20 meq 100 In Water For Injection 1 100ml.bag @ 50 mls/hr IVPB ONCE STA Rx#: [id number] Oral 1198 Output: Stool 2 Other: Voiding Method Toilet Toilet Toilet # Voids 1 # Bowel Movements 0 1 - Exam Awake, comfortable, no acute distress Examination of the heart S1 and S2 Examination of the lungs bilateral breath sounds are heard Abdomen is soft obese nontender Examination lower extremity shows edema 1+ bilaterally with chronic skin changes. Edema of bilateral upper extremities noted as well GIS GEOGRAPHER exam grossly intact - Labs CBC & Chem 7: 02/21/23 08:56 02/21/23 08:56 Labs: Abnormal Lab Results - Last 24 Hours (Table) 02/20/23 02/20/23 02/21/23 Range/Units 16:42 20:13 06:03 RBC (4.30-5.90) m/uL Hgb (13.0-17.5) gm/dL Hct (39.0-53.0) % MCV (80.0-100.0) fL MCHC (31.0-37.0) g/dL RDW (11.5-15.5) % Macrocytosis Retic Count (0.5-2.0) % Sodium (137-145) mmol/L Potassium (3.5-5.1) mmol/L Chloride (98-107) mmol/L BUN (9-20) mg/dL Creatinine (0.66-1.25) mg/dL Glucose (74-99) mg/dL POC Glucose (mg/dL) 262 H 186 H 172 H (70-110) mg/dL 02/21/23 02/21/23 02/21/23 Range/Units 08:56 08:56 11:14 RBC 2.67 L (4.30-5.90) m/uL Hgb 8.5 L (13.0-17.5) gm/dL Hct 27.5 L (39.0-53.0) % MCV 103.3 H (80.0-100.0) fL MCHC 30.7 L (31.0-37.0) g/dL RDW 21.1 H (11.5-15.5) % Macrocytosis Marked A Retic Count 7.5 H (0.5-2.0) % Sodium 132 L (137-145) mmol/L Potassium 3.3 L (3.5-5.1) mmol/L Chloride 94 L (98-107) mmol/L BUN 49 H (9-20) mg/dL Creatinine 2.83 H (0.66-1.25) mg/dL Glucose 158 H (74-99) mg/dL POC Glucose (mg/dL) 177 H (70-110) mg/dL Assessment and Plan Assessment: 1. End-stage renal disease on peritoneal dialysis 2. Acute blood loss anemia status post packed RBCs transfusion. No obvious source of GI bleed identified on EGD and colonoscopy. Capsule endoscopy in progress by GI. Hematology also on consult. Maintained on Aranesp 3. Hypotension most likely related to anemia. Currently maintained on midodrine. Cortisol level was not low. 4. CK D mineral bone disorder 5. Hyponatremia associated with CK D. 6. Hypokalemia secondary to PD 7. Volume overload Plan: Continue with current PD exchanges Continue Aranesp Continue to monitor hemoglobin Add IV Lasix If blood pressure is further improved I will add a 2.5% exchange to increase UF. Avoid any further fluid boluses.
--- NOTE | 2023-02-21 13:17 | P.PN ---
Subjective Progress Note Date: 02/21/23 77 year old M with end-stage renal disease on hemodialysis, diabetes, permanent atrial fibrillation status post pacemaker presented for generalized weakness, lightheadedness, low Hg on outside lab. Upon arrival, patient was afebrile, 84/50, 97% on 4 L nasal cannula, heart rate 85. CBC demonstrated leukocytosis to 15.2, hemoglobin 7.2. Basic metabolic panel showed sodium of 128, chloride 90, CO2 21, gap of 17, BUN of 81, creatinine 4.62. Liver function test showed alkaline phosphatase elevation of 143, otherwise unremarkable. BNP was 9050. Coags were unremarkable. EKG showed permanent atrial fibrillation with V paced rhythm. Chest x-ray showed moderate cardiomegaly without acute process. Case was discussed with emergency room physician and decision was made to admit the patient for further evaluation of possible bleeding. Patient underwent EGD on 02/16, this was significant for polyps which were removed for pathology but no source of bleeding. He proceeded to colonoscopy on 02/19. He was transfused 2 units of PRBC for Hg of 6.9 on 02/18. Colonoscopy showed diverticulosis. Pertinent studies include chest x-ray, EKG. Pertinent procedures include EGD and colonoscopy. 02/20 Patient was seen and examined. Patient reports no bowel movements since colonoscopy. He would like to know why his Hg is so low. CBC shows Hg of 8 with MCV 102.6. BMP shows Na 129, K 3, Cl 92, BUN 53, Cr 2.66, glucose 178. BP is 78/42, P 67, T 98.1F, 94% on CPAP. BP on repeat is 94/50. CBC, BMP and Mag level is pending this morning. 02/21 Patient was seen and examined. He reports no changes in his condition. He is currently undergoing capsule endoscopy. CBC shows Hg 8.5 with MCV 103.3. BMP shows Na 132, K 3.3, Cl 94, BUN 49, Cr 2.83, glucose 158. Iron is 41. Ferritin is 785. B12 872. General: non toxic, no distress, appears at stated age Derm: warm, dry Head: atraumatic, normocephalic, symmetric Eyes: EOMI, no lid lag, anicteric sclera Cardiovascular: Good distal perfusion all 4 extremities Resp: good air exchange, breathing comfortably with no accessory muscle use Ext: no gross muscle atrophy, no edema, no contractures Neuro: no focal neuro deficits Psych: Alert, oriented, appropriate affect Acute blood loss anemia Hypokalemia Melenic stools Permanent atrial fibrillation on Apixiban Hypertension Hyperlipidemia COPD without exacerbation Diabetes type 2 Hypothyroidism End-stage renal disease on peritoneal dialysis Based on my assessment of this patient, this patient meets a moderate complexity level of care. Patient has a new diagnosis of acute blood loss anemia secondary to GI bleed with uncertain prognosis. Acute blood loss anemia: Repeat CBC tomorrow morning. Transfuse if Hg < 7. Iron studies seem to indicate iron deficiency along with AOCD likely from CKD as the cause of his anemia. Hypokalemia: Replace with 40 meq PO. Start KCl 20 meq BID scheduled. Repeat BMP tomorrow morning. Melenic stools: Undergoing capsule endoscopy. GI is on board. Permanent atrial fibrillation on Apixiban: Hold Apixaban. Hypertension Hyperlipidemia COPD without exacerbation Diabetes type 2 Hypothyroidism End-stage renal disease on peritoneal dialysis: Nephrology on board. I have reviewed the following center lead consultant notes: Surgery note, nephrology note reviewed. I have reviewed the results of the following tests: CBC, iron studies and BMP reviewed. I have ordered the following tests: CBC and BMP ordered for tomorrow morning. Capsule endoscopy results are pending. I have discussed the care of this patient with the following independent historian: I have independently interpreted the following test below: I have discussed the management of this patient with the following physician: Objective - Vital Signs Vital signs: Vital Signs Temp 98.1 F 02/21/23 08:00 Pulse 107 H 02/21/23 12:13 Resp 18 02/21/23 12:13 BP 100/68 02/21/23 11:56 Pulse Ox 97 02/21/23 11:56 FiO2 Intake & Output 02/20/23 02/21/23 02/21/23 18:59 06:59 18:59 Intake Total 1298 Output Total 2 Balance 1298 -2 Weight 122 kg 123.1 kg Intake: Intake, IV Titration 100 Amount Potassium Chloride 20 meq 100 In Water For Injection 1 100ml.bag @ 50 mls/hr IVPB ONCE STA Rx#: [id number] Oral 1198 Output: Stool 2 Other: Voiding Method Toilet Toilet Toilet # Voids 1 # Bowel Movements 0 1 - Labs CBC & Chem 7: 02/21/23 08:56 08/02/23 08:56 Labs: Abnormal Lab Results - Last 24 Hours (Table) 02/20/23 02/20/23 02/21/23 Range/Units 16:42 20:13 06:03 RBC (4.30-5.90) m/uL Hgb (13.0-17.5) gm/dL Hct (39.0-53.0) % MCV (80.0-100.0) fL MCHC (31.0-37.0) g/dL RDW (11.5-15.5) % Macrocytosis Retic Count (0.5-2.0) % Sodium (137-145) mmol/L Potassium (3.5-5.1) mmol/L Chloride (98-107) mmol/L BUN (9-20) mg/dL Creatinine (0.66-1.25) mg/dL Glucose (74-99) mg/dL POC Glucose (mg/dL) 262 H 186 H 172 H (70-110) mg/dL Iron (50-175) UG/DL % Saturation (12.00-50.00) Ferritin (10.0-322.0) ng/mL 02/21/23 02/21/23 02/21/23 Range/Units 08:56 08:56 11:14 RBC 2.67 L (4.30-5.90) m/uL Hgb 8.5 L (13.0-17.5) gm/dL Hct 27.5 L (39.0-53.0) % MCV 103.3 H (80.0-100.0) fL MCHC 30.7 L (31.0-37.0) g/dL RDW 21.1 H (11.5-15.5) % Macrocytosis Marked A Retic Count 7.5 H (0.5-2.0) % Sodium 132 L (137-145) mmol/L Potassium 3.3 L (3.5-5.1) mmol/L Chloride 94 L (98-107) mmol/L BUN 49 H (9-20) mg/dL Creatinine 2.83 H (0.66-1.25) mg/dL Glucose 158 H (74-99) mg/dL POC Glucose (mg/dL) 177 H (70-110) mg/dL Iron 41 L (50-175) UG/DL % Saturation 10.28 L (12.00-50.00) Ferritin 785.0 H (10.0-322.0) ng/mL
--- NOTE | 2023-02-21 15:52 | P.PN ---
Subjective Progress Note Date: 02/21/23 Principal diagnosis: Anemia 77-year-old male who presented to the emergency department on 02/14/2023 with complaints of shortness of breath with persistent anxiety. He has a past medical history including atrial fibrillation COPD, end-stage renal disease on peritoneal dialysis, congestive heart failure, diabetes mellitus, thyroid disorder, hypertension, hyperlipidemia, and sleep apnea on CPAP. Gen. surgery was consulted for anemia. Patient was reporting that he had dark stool however he has been on oral iron. Denies any colleen blood in his stool. He was seen by general surgery who performed EGD with findings of mild gastritis, small gastric polyp and moderate size hiatal hernia. He also underwent colonoscopy yesterday with findings of diverticulosis without any active bleeding noted. Labs are consistent with a normochromic normocytic anemia, iron and peritenon are also within normal range. Gastroenterology was consulted for possible small bowel capsule endoscopy. HET 23 Patient seen and examined today as a follow-up. He is undergoing small bowel capsule endoscopy. He denies any abdominal pain, nausea or vomiting. Denies any rectal bleeding or blood in the stool. Repeat hemoglobin 8.5 Objective - Vital Signs Vital signs: Vital Signs Temp 98.1 F 02/21/23 08:00 Pulse 80 02/21/23 08:12 Resp 18 02/21/23 08:00 BP 88/54 02/21/23 08:00 Pulse Ox 92 L 02/21/23 08:00 FiO2 Intake & Output 02/20/23 02/21/23 02/21/23 18:59 06:59 18:59 Intake Total 1298 Output Total 1 Balance 1298 -1 Weight 122 kg 123.1 kg Intake: Intake, IV Titration 100 Amount Potassium Chloride 20 meq 100 In Water For Injection 1 100ml.bag @ 50 mls/hr IVPB ONCE STA Rx#: [id number] Oral 1198 Output: Stool 1 Other: Voiding Method Toilet Toilet Toilet # Voids 1 # Bowel Movements 0 1 - Exam General appearance: The patient is alert, oriented, appears in no acute distress. HET: Head is normocephalic and atraumatic. Conjunctiva pink. Sclera anicteric. Neck: Supple without lymphadenopathy. Abdomen: Soft, nontender, nondistended with bowel sounds. No guarding or rigidity. Extremities: Normal skin color and turgor. No pedal edema Skin: No rashes, no jaundice Neurological: No focal deficits. Alert and oriented. - Labs CBC & Chem 7: 02/21/23 08:56 02/21/23 08:56 Labs: Abnormal Lab Results - Last 24 Hours (Table) 02/20/23 02/20/23 02/20/23 Range/Units 10:36 10:36 11:23 RBC 2.43 L (4.30-5.90) m/uL Hgb 8.0 L (13.0-17.5) gm/dL Hct 25.0 L (39.0-53.0) % MCV 102.6 H (80.0-100.0) fL MCHC (31.0-37.0) g/dL RDW 21.2 H (11.5-15.5) % Lymphocytes # 0.8 L (1.0-4.8) k/uL Macrocytosis Marked A Retic Count (0.5-2.0) % Sodium 129 L (137-145) mmol/L Potassium 3.0 L (3.5-5.1) mmol/L Chloride 92 L (98-107) mmol/L BUN 53 H (9-20) mg/dL Creatinine 2.66 H (0.66-1.25) mg/dL Glucose 178 H (74-99) mg/dL POC Glucose (mg/dL) 208 H (70-110) mg/dL Calcium 8.2 L (8.4-10.2) mg/dL 02/20/23 02/20/23 02/21/23 Range/Units 16:42 20:13 06:03 RBC (4.30-5.90) m/uL Hgb (13.0-17.5) gm/dL Hct (39.0-53.0) % MCV (80.0-100.0) fL MCHC (31.0-37.0) g/dL RDW (11.5-15.5) % Lymphocytes # (1.0-4.8) k/uL Macrocytosis Retic Count (0.5-2.0) % Sodium (137-145) mmol/L Potassium (3.5-5.1) mmol/L Chloride (98-107) mmol/L BUN (9-20) mg/dL Creatinine (0.66-1.25) mg/dL Glucose (74-99) mg/dL POC Glucose (mg/dL) 262 H 186 H 172 H (70-110) mg/dL Calcium (8.4-10.2) mg/dL 02/21/23 02/21/23 Range/Units 08:56 08:56 RBC 2.67 L (4.30-5.90) m/uL Hgb 8.5 L (13.0-17.5) gm/dL Hct 27.5 L (39.0-53.0) % MCV 103.3 H (80.0-100.0) fL MCHC 30.7 L (31.0-37.0) g/dL RDW 21.1 H (11.5-15.5) % Lymphocytes # (1.0-4.8) k/uL Macrocytosis Marked A Retic Count 7.5 H (0.5-2.0) % Sodium 132 L (137-145) mmol/L Potassium 3.3 L (3.5-5.1) mmol/L Chloride 94 L (98-107) mmol/L BUN 49 H (9-20) mg/dL Creatinine 2.83 H (0.66-1.25) mg/dL Glucose 158 H (74-99) mg/dL POC Glucose (mg/dL) (70-110) mg/dL Calcium (8.4-10.2) mg/dL Assessment and Plan (1) Anemia Narrative/Plan: 77-year-old male who came in with shortness of breath with multiple comorbidities presented with normochromic normocytic anemia. Iron studies ordered with mildly low iron but normal ferritin. Anemia is likely anemia of chronic disease. Patient underwent EGD and colonoscopy without any evidence of old blood or active bleeding noted. Patient without any signs of GI blood loss including blood in the stool or black stool. Patient states he has dark stool but he has also been on oral iron in the outpatient setting. Gastroenterology consulted and will finish workup for possible GI blood loss and to include a small capsule endoscopy study. Small bowel capsule endoscopy study in progress Current Visit: Yes Status: Acute Code(s): D64.9 - ANEMIA, UNSPECIFIED SNOMED Code(s): 122520439 (2) COPD (chronic obstructive pulmonary disease) Current Visit: Yes Status: Acute Code(s): J44.9 - CHRONIC OBSTRUCTIVE PULMONARY DISEASE, UNSPECIFIED SNOMED Code(s): 09170819 (3) Atrial fibrillation Current Visit: No Status: Acute Code(s): I48.91 - UNSPECIFIED ATRIAL FIBRILLATION SNOMED Code(s): 96115680 (4) Congestive heart failure Current Visit: No Status: Acute Code(s): I50.9 - HEART FAILURE, UNSPECIFIED SNOMED Code(s): 38568842 (5) Diabetes Current Visit: No Status: Acute Code(s): E11.9 - TYPE 2 DIABETES MELLITUS WITHOUT COMPLICATIONS SNOMED Code(s): 66702529 (6) Obstructive sleep apnea Current Visit: No Status: Acute Code(s): G47.33 - OBSTRUCTIVE SLEEP APNEA (ADULT) (PEDIATRIC) SNOMED Code(s): 34435085 (7) End-stage renal disease on peritoneal dialysis Current Visit: Yes Status: Acute Code(s): N18.6 - END STAGE RENAL DISEASE; Z99.2 - DEPENDENCE ON RENAL DIALYSIS SNOMED Code(s): 068917058 Plan: 1. Continue symptomatic and supportive care 2. Patient may have regular lunch 3. Daily CBC transfuse for hemoglobin less than 7 4. Patient currently undergoing small bowel video capsule endoscopy 5. Further recommendations forthcoming based on small bowel capsule endoscopy study d Thank you for this consultation, will continue to follow. Dr. Samy Matos I agree with the dictator's note, documented as a scribe by Ginny Wolfe.
[2023-02-21] MEDS: FUROSEMIDE 10 MG/ML 10 ML VIAL IV SCH ×2 (16:39→20:03)
[2023-02-21 16:52] LABS: Glucose,Whole Blood 213 mg/dL (70-110)
--- NOTE | 2023-02-21 17:19 | P.CONS ---
History of Present Illness - Reason for Consult Consult date: 02/21/23 Anemia Requesting physician: Prema Jett - Chief Complaint Shortness of breath, black stool - History of Present Illness Mr Galloway is a 77-year-old man we have been asked to see because of macrocytic anemia. He has a complex past medical history including chronic kidney disease, currently on peritoneal dialysis, history of AVM, GI bleeding, hypertension, hypothyroidism, atrial fibrillation on anticoagulation, COPD. He is medicated for all the aforementioned comorbidities. He does well overall. Patient states that he came to the hospital because of shortness of breath. He noted that this persisted and became progressive. He also noted that his stool was darker then normal-he is on oral iron and does note darker stools in general but, this was probably old worse. He denied any fevers, chills, nausea, vomiting, hematic emesis, coffee-ground emesis, chest pain, unusual cough, abdominal pain or cramping, hematuria, no unusual bruising. Since admit he has had EGD which was positive for polyp and gastritis, polyps of was negative for malignancy, he had colonoscopy that was negative for malignancy or other pathology, some diverticuli were noted. Chart review shows anemia since September 2021, noted about that time is when patient had kidney failure and chronic kidney disease noted since such time. September 2021 patient had an EGD for anemia, this found a bleeding AVM and that was treated. Patient states that he received iron infusions as well as iron "shots" through his Clinical Laboratory Scientist. He was transitioned to oral iron and been on that for quite some time now. She denies ever receiving CAROLINA. Patient hemoglobin of 6.9, he has been transfused with 2 units of blood since admit. Creatinine today 2.83, BUN 49. Hemoglobin is 8.5 today, MCV 103.3. Iron saturation 10.2, ferritin 785, B12 872. Review of Systems 10 point review of systems is negative except as stated in HPI Past Medical History Past Medical History: Atrial Fibrillation, COPD, Diabetes Mellitus, Dialysis, GERD/Reflux, Hyperlipidemia, Hypertension, Osteoarthritis (OA), Renal Disease, Sleep Apnea/CPAP/BIPAP, Thyroid Disorder Additional Past Medical History / Comment(s): O2 3L per nasal cannula. Dialysis MOWEFR. Cardiomyopathy. Gout. Constipation. 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 hemodialysis cath, Past Anesthesia/Blood Transfusion Reactions: No Reported Reaction Type of Cardiac Device: Permanent Pacemaker Device Placement Date:: 10/17/2012 Past Psychological History: No Psychological Hx Reported Smoking Status: Former smoker Past Alcohol Use History: None Reported Past Drug Use History: None Reported - Past Family History Father History Unknown: Yes Additional Family Medical History / Comment(s): "hardening of the arteries" Mother History Unknown: Yes Additional Family Medical History / Comment(s): "water in the lungs" at 95. Medications and Allergies Home Medications Medication Instructions Recorded Confirmed Type allopurinoL [Zyloprim] 300 mg PO DAILY 11/21/14 02/14/23 History Acetaminophen Tab [Tylenol] 325 mg PO QID PRN 07/12/16 02/14/23 History Multivitamins, Thera [Multivitamin 1 tab PO DAILY 10/03/17 02/14/23 History (formulary)] Albuterol Sulfate [Proair Hfa] 2 puff INHALATION RT-QID PRN 06/23/18 02/14/23 History Levothyroxine Sodium [Synthroid] 50 mcg PO DAILY 05/24/21 02/15/23 History Lovastatin [Altoprev] 40 mg PO HS 05/24/21 02/14/23 History Ipratropium-Albuterol Nebulize 3 ml INHALATION RT-Q6H PRN 08/09/21 02/14/23 History [Duoneb 0.5 mg-3 mg/3 ml Soln] Apixaban [Eliquis] 5 mg PO BID 09/28/21 02/15/23 History Aspirin [Adult Low Dose Aspirin EC] 81 mg PO DAILY 03/29/22 02/14/23 History Lactulose 10 gm PO BID PRN 03/29/22 02/14/23 History Omeprazole 40 mg PO DAILY 03/29/22 02/14/23 History Torsemide [Demadex] 80 mg PO DAILY 03/29/22 02/14/23 History traMADol HCl [Ultram] 50 mg PO Q6H PRN #6 tab 03/30/22 02/14/23 Rx Calcium Carbonate [Tums] 500 mg PO DAILY 02/14/23 02/14/23 History Docusate Calcium 240 mg PO DAILY 02/14/23 02/14/23 History Ferrous Sulfate [Feosol] 325 mg PO DAILY 02/14/23 02/14/23 History Gentamicin 0.1% Cream 1 applic TOPICAL DAILY 02/14/23 02/14/23 History Midodrine HCl [ProAmatine] 10 mg PO QID 02/14/23 02/14/23 History Potassium Chloride ER [K-Dur 10] 20 meq PO DAILY 02/14/23 02/14/23 History glipiZIDE [Glucotrol] 10 mg PO HS 02/14/23 02/14/23 History glipiZIDE [Glucotrol] 20 mg PO DAILY 02/14/23 02/14/23 History metOLazone [Zaroxolyn] 10 mg PO DAILY 02/14/23 02/14/23 History methocarbamoL [Methocarbamol] 500 mg PO HS 02/14/23 02/14/23 History Sucralfate [Carafate] 1 gm PO BID 02/15/23 02/15/23 History Allergies Allergy/AdvReac Type Severity Reaction Status Date / Time lisinopril AdvReac Cough Verified 02/15/23 09:24 Physical Exam Vitals: Vital Signs Temp Pulse Pulse Pulse Resp BP BP 02/21/23 12:13 107 H 106 H 18 02/21/23 12:01 78 02/21/23 11:56 108 H 20 100/68 02/21/23 11:36 82 02/21/23 08:12 80 02/21/23 08:00 98.1 F 82 107 H 106 H 18 88/54 02/21/23 06:56 97.9 F 61 19 100/66 02/21/23 04:00 98.2 F 61 18 100/66 02/20/23 23:51 98.0 F 90 90 19 109/63 109/63 02/20/23 20:00 98.2 F 80 18 97/55 02/20/23 19:27 98.3 F 85 16 102/62 02/20/23 16:00 97.1 F L 94 16 102/62 Pulse Ox 02/21/23 12:13 02/21/23 12:01 02/21/23 11:56 97 02/21/23 11:36 02/21/23 08:12 02/21/23 08:00 92 L 02/21/23 06:56 98 02/21/23 04:00 98 02/20/23 23:51 100 02/20/23 20:00 94 L 02/20/23 19:27 99 02/20/23 16:00 96 Intake and Output 02/21/23 02/21/23 02/21/23 06:59 14:59 22:59 Intake Total 120 Output Total 2 Balance 118 Intake: Oral 120 Output: Stool 2 Other: Voiding Method Toilet Toilet # Bowel Movements 1 Weight 123.1 kg - Constitutional General appearance: cooperative, morbidly obese, no acute distress - EENT Eyes: anicteric sclerae, EOMI ENT: hearing grossly normal, normal oropharynx - Neck Neck: no lymphadenopathy - Respiratory Respiratory: bilateral: CTA - Cardiovascular Rhythm: irregularly irregular Heart sounds: normal: S1, S2 leg Peripheral Edema: bilateral: Trace - Gastrointestinal General gastrointestinal: no absent bowel sounds, no decreased bowel sounds, distended, no hepatomegaly, no hyperactive bowel sounds, normal bowel sounds, no organomegaly, no rigid, no scaphoid, soft, no splenomegaly, no tenderness, no umbilical hernia, no ventral hernia - Integumentary Integumentary: normal - Neurologic Neurologic: CNII-XII intact - Musculoskeletal Musculoskeletal: strength equal bilaterally - Psychiatric Psychiatric: A&O x's 3, appropriate affect, intact judgment & insight Results CBC & Chem 7: 02/21/23 08:56 02/21/23 08:56 Labs: Abnormal Lab Results - Last 24 Hours (Table) 02/20/23 02/20/23 02/21/23 Range/Units 16:42 20:13 06:03 RBC (4.30-5.90) m/uL Hgb (13.0-17.5) gm/dL Hct (39.0-53.0) % MCV (80.0-100.0) fL MCHC (31.0-37.0) g/dL RDW (11.5-15.5) % Macrocytosis Retic Count (0.5-2.0) % Sodium (137-145) mmol/L Potassium (3.5-5.1) mmol/L Chloride (98-107) mmol/L BUN (9-20) mg/dL Creatinine (0.66-1.25) mg/dL Glucose (74-99) mg/dL POC Glucose (mg/dL) 262 H 186 H 172 H (70-110) mg/dL Iron (50-175) UG/DL % Saturation (12.00-50.00) Ferritin (10.0-322.0) ng/mL 02/21/23 02/21/23 02/21/23 Range/Units 08:56 08:56 11:14 RBC 2.67 L (4.30-5.90) m/uL Hgb 8.5 L (13.0-17.5) gm/dL Hct 27.5 L (39.0-53.0) % MCV 103.3 H (80.0-100.0) fL MCHC 30.7 L (31.0-37.0) g/dL RDW 21.1 H (11.5-15.5) % Macrocytosis Marked A Retic Count 7.5 H (0.5-2.0) % Sodium 132 L (137-145) mmol/L Potassium 3.3 L (3.5-5.1) mmol/L Chloride 94 L (98-107) mmol/L BUN 49 H (9-20) mg/dL Creatinine 2.83 H (0.66-1.25) mg/dL Glucose 158 H (74-99) mg/dL POC Glucose (mg/dL) 177 H (70-110) mg/dL Iron 41 L (50-175) UG/DL % Saturation 10.28 L (12.00-50.00) Ferritin 785.0 H (10.0-322.0) ng/mL Assessment and Plan (1) Macrocytic anemia Current Visit: Yes Status: Chronic Priority: Medium Code(s): D53.9 - NUTRITIONAL ANEMIA, UNSPECIFIED SNOMED Code(s): 99060539 Plan: Macrocytic anemia -Multifactorial including chronic kidney disease, history of AVMs and chronic small blood losses, exacerbated by being on anticoagulation for atrial fibrillation -Anemia present since at least September 2021 -Recent colonoscopy negative, diverticulosis, EGD he had polyp removed, negative for malignancy, and gastritis. -EGD September 2021 patient was treated for an AVM -Patient reports was getting IV iron/iron shots with Clinical Laboratory Scientist, transition to oral iron, Denies ever receiving CAROLINA. -Iron studies may be abnormally elevated as the patient received 1 unit of blood since drawn. -Transfuse for hemoglobin less than 7 or if patient is symptomatic -Recommend that the patient continue following up with his Clinical Laboratory Scientist to have his CBC monitored, received parenteral iron as needed and possibly be started on CAROLINA. attests: I have seen and examined pt, performed H&P, developed impression and plan of care. Discussed with dictator. Agree with documentation, dictated as a scribe.
[2023-02-21 20:01] LABS: Glucose,Whole Blood 240 mg/dL (70-110)
[2023-02-21] MEDS: methocarbamoL 500 MG TAB PO SCH (20:01)
[2023-02-21] MEDS: POTASSIUM CHLORIDE ER 20 MEQ TAB.ER PO SCH (20:02)
[2023-02-21] MEDS: ATORVASTATIN 10 MG TAB PO SCH (20:02)
[2023-02-22] MEDS: IPRATROPIUM-ALBUTEROL 3 ML NEB INHALATION PRN ×3 (00:11→16:15)
[2023-02-22] MEDS: DIALYSIS (PERIT 1.5%) 2,500 ML 37.5 G/2,500 ML BAG INTRAPERIT SCH ×3 (00:54→12:10)
[2023-02-22 05:53] LABS: Glucose,Whole Blood 153 mg/dL (70-110)
[2023-02-22] MEDS: LEVOTHYROXINE 50 MCG TAB PO SCH (06:55)
[2023-02-22] MEDS: INSULIN ASPART (NovoLOG) 100 UNIT/ML VIAL SQ SCH ×2 (06:55→12:18)
[2023-02-22 08:57] LABS: Potassium 3.7 mmol/L (3.5-5.1)
[2023-02-22 08:58] LABS: African American GFR (CKD) 26 (>60 ml/min/1.73 sqM); Anion Gap 8 mmol/L; Blood Urea Nitrogen 46 mg/dL (9-20); Calcium 8.4 mg/dL (8.4-10.2); Carbon Dioxide 29 mmol/L (22-30); Chloride 94 mmol/L (98-107); Glucose 149 mg/dL (74-99); Non-African American GFR(CKD) 22 (>60 ml/min/1.73 sqM); Sodium 131 mmol/L (137-145)
[2023-02-22] MEDS: PANTOPRAZOLE 40 MG/10 ML VIAL IVP SCH (09:36)
[2023-02-22] MEDS: MIDODRINE 5 MG TAB PO SCH ×2 (09:37→14:10)
[2023-02-22] MEDS: POTASSIUM CHLORIDE ER 20 MEQ TAB.ER PO SCH (09:37)
[2023-02-22] MEDS: DOCUSATE 100 MG CAP PO SCH (09:37)
[2023-02-22 10:58] LABS: Anisocytosis Moderate; HCT 24.9 % (39.0-53.0); HGB 7.9 gm/dL (13.0-17.5); Hypochromasia Marked; MCH 32.7 pg (25.0-35.0); MCHC 31.7 g/dL (31.0-37.0); MCV 103.3 fL (80.0-100.0); Mean Platelet Volume 7.6; Platelet Count 215 k/uL (150-450); Poikilocytosis Slight; RBC 2.41 m/uL (4.30-5.90); RDW 20.8 % (11.5-15.5); WBC 8.5 k/uL (3.8-10.6)
[2023-02-22 11:07] LABS: Macrocytosis Marked
[2023-02-22 11:34] LABS: Glucose,Whole Blood 193 mg/dL (70-110)
[2023-02-22 12:33] VITALS: BP 97/55; RESP 18; TEMP 97.2
[2023-02-22] MEDS ORDERED: FUROSEMIDE 10 MG/ML 10 ML VIAL IV SCH (12:45)
--- NOTE | 2023-02-22 12:49 | P.PN ---
Subjective Progress Note Date: 02/22/23 Principal diagnosis: macrocytic anemia In f/u today pt is pending results of capsule endo, he has received a dose of CAROLINA, he cont on peritoneal dialysis. He notes easily fatigued and more tired then normal. Denies bleeding Objective - Vital Signs Vital signs: Vital Signs Temp 97.2 F L 02/22/23 12:00 Pulse 88 02/22/23 12:39 Resp 18 02/22/23 12:00 BP 97/55 02/22/23 12:00 Pulse Ox 94 L 02/22/23 12:00 FiO2 Intake & Output 02/21/23 02/22/23 02/22/23 18:59 06:59 18:59 Intake Total 240 0 Output Total 2 1 1 Balance 238 -1 -1 Weight 118.6 kg Intake: Oral 240 0 Output: Stool 2 1 1 Other: Voiding Method Toilet Toilet Toilet # Voids 0 # Bowel Movements 1 0 - Constitutional General appearance: Present: cooperative, no acute distress, obese - EENT Eyes: Present: anicteric sclerae, EOMI ENT: Present: hearing grossly normal - Respiratory Details: resp even and unlabored at rest - Cardiovascular Details: skin warm and dry to touch - Neurologic Neurologic: Present: CNII-XII intact - Musculoskeletal Musculoskeletal: Present: generalized weakness, strength equal bilaterally - Psychiatric Psychiatric: Present: A&O x's 3, appropriate affect, intact judgment & insight - Labs CBC & Chem 7: 02/22/23 10:16 02/22/23 07:52 Labs: Abnormal Lab Results - Last 24 Hours (Table) 02/21/23 02/21/23 02/21/23 Range/Units 08:56 16:50 20:00 RBC (4.30-5.90) m/uL Hgb (13.0-17.5) gm/dL Hct (39.0-53.0) % MCV (80.0-100.0) fL RDW (11.5-15.5) % Macrocytosis Sodium (137-145) mmol/L Chloride (98-107) mmol/L BUN (9-20) mg/dL Creatinine (0.66-1.25) mg/dL Glucose (74-99) mg/dL POC Glucose (mg/dL) 213 H 240 H (70-110) mg/dL RBC Folate 1,276 H (280 - 791) ng/mL 02/22/23 02/22/23 02/22/23 Range/Units 05:50 07:52 10:16 RBC 2.41 L (4.30-5.90) m/uL Hgb 7.9 L (13.0-17.5) gm/dL Hct 24.9 L (39.0-53.0) % MCV 103.3 H (80.0-100.0) fL RDW 20.8 H (11.5-15.5) % Macrocytosis Marked A Sodium 131 L (137-145) mmol/L Chloride 94 L (98-107) mmol/L BUN 46 H (9-20) mg/dL Creatinine 2.66 H (0.66-1.25) mg/dL Glucose 149 H (74-99) mg/dL POC Glucose (mg/dL) 153 H (70-110) mg/dL RBC Folate (280 - 791) ng/mL 02/22/23 Range/Units 11:32 RBC (4.30-5.90) m/uL Hgb (13.0-17.5) gm/dL Hct (39.0-53.0) % MCV (80.0-100.0) fL RDW (11.5-15.5) % Macrocytosis Sodium (137-145) mmol/L Chloride (98-107) mmol/L BUN (9-20) mg/dL Creatinine (0.66-1.25) mg/dL Glucose (74-99) mg/dL POC Glucose (mg/dL) 193 H (70-110) mg/dL RBC Folate (280 - 791) ng/mL Assessment and Plan (1) Macrocytic anemia Current Visit: Yes Status: Chronic Priority: Medium Code(s): D53.9 - NUTRITIONAL ANEMIA, UNSPECIFIED SNOMED Code(s): 33229302 Plan: Macrocytic anemia -Multifactorial including chronic kidney disease, history of AVMs and chronic small blood losses, exacerbated by being on anticoagulation for atrial fibrillation -Anemia present since at least September 2021 -Recent colonoscopy negative, diverticulosis seen. EGD done, he had polyp removed, negative for malignancy, did show gastritis. -EGD September 2021 patient was treated for an actively bleeding AVM -Patient reports was getting IV iron/iron shots with Second Floor Operator, transition to oral iron, Denies ever receiving CAROLINA. -Iron studies may be abnormally elevated as the patient received 1 unit of blood since drawn. Iron sat is about 10% so, he will likely be receiving IV iron as he is on CAROLINA -Transfuse for hemoglobin less than 7 or if patient is symptomatic -Recommend that the patient continue following up with his Second Floor Operator to have his CBC monitored, receive parenteral iron as needed and cont CAROLINA.
--- NOTE | 2023-02-22 13:00 | P.PN ---
Subjective Progress Note Date: 02/22/23 Principal diagnosis: Anemia 77-year-old male who presented to the emergency department on 02/14/2023 with complaints of shortness of breath with persistent anxiety. He has a past medical history including atrial fibrillation COPD, end-stage renal disease on peritoneal dialysis, congestive heart failure, diabetes mellitus, thyroid disorder, hypertension, hyperlipidemia, and sleep apnea on CPAP. Gen. surgery was consulted for anemia. Patient was reporting that he had dark stool however he has been on oral iron. Denies any colleen blood in his stool. He was seen by general surgery who performed EGD with findings of mild gastritis, small gastric polyp and moderate size hiatal hernia. He also underwent colonoscopy yesterday with findings of diverticulosis without any active bleeding noted. Labs are consistent with a normochromic normocytic anemia, iron and peritenon are also within normal range. Gastroenterology was consulted for possible small bowel capsule endoscopy. 02/21/2023 Patient seen and examined today as a follow-up. He is undergoing small bowel capsule endoscopy. He denies any abdominal pain, nausea or vomiting. Denies any rectal bleeding or blood in the stool. Repeat hemoglobin 8.5 02/22/2023 Patient seen and examined today for follow-up. He underwent a small bowel capsule endoscopy. Possible small AVM noted however there is no old blood or active bleeding noted. Today's hemoglobin 7.9. Patient denies any abdominal pain, nausea or vomiting. Denies any bleeding. States that he is feeling little bit more fatigued than normal. Patient did get a dose of [place]. Objective - Vital Signs Vital signs: Vital Signs Temp 97.2 F L 02/22/23 12:00 Pulse 88 02/22/23 12:51 Resp 18 02/22/23 12:00 BP 97/55 02/22/23 12:00 Pulse Ox 94 L 02/22/23 12:00 FiO2 Intake & Output 02/21/23 02/22/23 02/22/23 18:59 06:59 18:59 Intake Total 240 0 Output Total 2 1 1 Balance 238 -1 -1 Weight 118.6 kg Intake: Oral 240 0 Output: Stool 2 1 1 Other: Voiding Method Toilet Toilet Toilet # Voids 0 # Bowel Movements 1 0 - Exam General appearance: The patient is alert, oriented, appears in no acute distress. HET: Head is normocephalic and atraumatic. Conjunctiva pink. Sclera anicteric. Neck: Supple without lymphadenopathy. Abdomen: Soft, nontender, nondistended with bowel sounds. No guarding or rigidity. Extremities: Normal skin color and turgor. No pedal edema Skin: No rashes, no jaundice Neurological: No focal deficits. Alert and oriented. - Labs CBC & Chem 7: 02/22/23 10:16 02/22/23 07:52 Labs: Abnormal Lab Results - Last 24 Hours (Table) 02/21/23 02/21/23 02/21/23 Range/Units 08:56 16:50 20:00 RBC (4.30-5.90) m/uL Hgb (13.0-17.5) gm/dL Hct (39.0-53.0) % MCV (80.0-100.0) fL RDW (11.5-15.5) % Macrocytosis Sodium (137-145) mmol/L Chloride (98-107) mmol/L BUN (9-20) mg/dL Creatinine (0.66-1.25) mg/dL Glucose (74-99) mg/dL POC Glucose (mg/dL) 213 H 240 H (70-110) mg/dL RBC Folate 1,276 H (280 - 791) ng/mL 02/22/23 02/22/23 02/22/23 Range/Units 05:50 07:52 10:16 RBC 2.41 L (4.30-5.90) m/uL Hgb 7.9 L (13.0-17.5) gm/dL Hct 24.9 L (39.0-53.0) % MCV 103.3 H (80.0-100.0) fL RDW 20.8 H (11.5-15.5) % Macrocytosis Marked A Sodium 131 L (137-145) mmol/L Chloride 94 L (98-107) mmol/L BUN 46 H (9-20) mg/dL Creatinine 2.66 H (0.66-1.25) mg/dL Glucose 149 H (74-99) mg/dL POC Glucose (mg/dL) 153 H (70-110) mg/dL RBC Folate (280 - 791) ng/mL 02/22/23 Range/Units 11:32 RBC (4.30-5.90) m/uL Hgb (13.0-17.5) gm/dL Hct (39.0-53.0) % MCV (80.0-100.0) fL RDW (11.5-15.5) % Macrocytosis Sodium (137-145) mmol/L Chloride (98-107) mmol/L BUN (9-20) mg/dL Creatinine (0.66-1.25) mg/dL Glucose (74-99) mg/dL POC Glucose (mg/dL) 193 H (70-110) mg/dL RBC Folate (280 - 791) ng/mL Assessment and Plan (1) Anemia Narrative/Plan: 77-year-old male who came in with shortness of breath with multiple comorbidities presented with normochromic normocytic anemia. Iron studies ordered with mildly low iron but normal ferritin. Anemia is likely anemia of chronic disease. Patient underwent EGD and colonoscopy without any evidence of old blood or active bleeding noted. Patient without any signs of GI blood loss including blood in the stool or black stool. Patient states he has dark stool but he has also been on oral iron in the outpatient setting. Gastroenterology consulted and will finish workup for possible GI blood loss and to include a small capsule endoscopy study. Small bowel capsule endoscopy is completed and reviewed. No evidence of old blood or active bleeding. Possible one small AVM noted otherwise normal exam. Likely anemia multifactorial and due to multiple comorbidities. Continue to follow-up with recommendations from hematology and nephrology. Current Visit: Yes Status: Acute Code(s): D64.9 - ANEMIA, UNSPECIFIED SNOMED Code(s): 484027810 (2) COPD (chronic obstructive pulmonary disease) Current Visit: Yes Status: Acute Code(s): J44.9 - CHRONIC OBSTRUCTIVE PULMONARY DISEASE, UNSPECIFIED SNOMED Code(s): 93314960 (3) Atrial fibrillation Current Visit: No Status: Acute Code(s): I48.91 - UNSPECIFIED ATRIAL FI BRILLATION SNOMED Code(s): 86334216 (4) Congestive heart failure Current Visit: No Status: Acute Code(s): I50.9 - HEART FAILURE, UNSPECIFIED SNOMED Code(s): 97411791 (5) Diabetes Current Visit: No Status: Acute Code(s): E11.9 - TYPE 2 DIABETES MELLITUS WITHOUT COMPLICATIONS SNOMED Code(s): 68788426 (6) Obstructive sleep apnea Current Visit: No Status: Acute Code(s): G47.33 - OBSTRUCTIVE SLEEP APNEA (ADULT) (PEDIATRIC) SNOMED Code(s): 57464848 (7) End-stage renal disease on peritoneal dialysis Current Visit: Yes Status: Acute Code(s): N18.6 - END STAGE RENAL DISEASE; Z99.2 - DEPENDENCE ON RENAL DIALYSIS SNOMED Code(s): 351105185 Plan: 1. Continue symptomatic and supportive care 2. Patient may have regular lunch 3. Daily CBC transfuse for hemoglobin less than 7 4. Small bowel video capsule endoscopy completed, no evidence of old blood or active bleeding noted. 5. May resume anticoagulation 6. Continue with recommendations from hematology Thank you for this consultation, we will sign off at this time. Dr. Samy Matos I agree with the dictator's note, documented as a scribe by Ginny Wolfe.
--- NOTE | 2023-02-22 13:05 | P.PN ---
Subjective Patient is seen for follow-up for end-stage renal disease. He was admitted with acute weakness, hypotension and anemia and hemoglobin of 6.9 g/dL . Status post packed RBCs. Status post EGD on 02/16/2003 with no evidence of active bleeding. Status post colonoscopy 02/19/2023 with no obvious source of bleeding noted. Currently being followed by GI and capsule Endoscopy in progress. Hemoglobin 7.9 g/dL. No active bleeding. Blood pressure appears to be slightly improved. Patient remains on midodrine. Cortisol was not low. Complaining of increased swelling in the legs and arms. No shortness of breath. Objective - Vital Signs Vital signs: Vital Signs Temp 97.2 F L 02/22/23 12:00 Pulse 88 02/22/23 12:51 Resp 18 02/22/23 12:00 BP 97/55 02/22/23 12:00 Pulse Ox 94 L 02/22/23 12:00 FiO2 Intake & Output 02/21/23 02/22/23 02/22/23 18:59 06:59 18:59 Intake Total 240 0 Output Total 2 1 1 Balance 238 -1 -1 Weight 118.6 kg Intake: Oral 240 0 Output: Stool 2 1 1 Other: Voiding Method Toilet Toilet Toilet # Voids 0 # Bowel Movements 1 0 - Exam Awake, comfortable, no acute distress Examination of the heart S1 and S2 Examination of the lungs bilateral breath sounds are heard Abdomen is soft obese nontender Examination lower extremity shows edema 1+ bilaterally with chronic skin changes. Edema of bilateral upper extremities noted as well OUTSOLE CEMENTER exam grossly intact - Labs CBC & Chem 7: 02/22/23 10:16 02/22/23 07:52 Labs: Abnormal Lab Results - Last 24 Hours (Table) 02/21/23 02/21/23 02/21/23 Range/Units 08:56 16:50 20:00 RBC (4.30-5.90) m/uL Hgb (13.0-17.5) gm/dL Hct (39.0-53.0) % MCV (80.0-100.0) fL RDW (11.5-15.5) % Macrocytosis Sodium (137-145) mmol/L Chloride (98-107) mmol/L BUN (9-20) mg/dL Creatinine (0.66-1.25) mg/dL Glucose (74-99) mg/dL POC Glucose (mg/dL) 213 H 240 H (70-110) mg/dL RBC Folate 1,276 H (280 - 791) ng/mL 02/22/23 02/22/23 02/22/23 Range/Units 05:50 07:52 10:16 RBC 2.41 L (4.30-5.90) m/uL Hgb 7.9 L (13.0-17.5) gm/dL Hct 24.9 L (39.0-53.0) % MCV 103.3 H (80.0-100.0) fL RDW 20.8 H (11.5-15.5) % Macrocytosis Marked A Sodium 131 L (137-145) mmol/L Chloride 94 L (98-107) mmol/L BUN 46 H (9-20) mg/dL Creatinine 2.66 H (0.66-1.25) mg/dL Glucose 149 H (74-99) mg/dL POC Glucose (mg/dL) 153 H (70-110) mg/dL RBC Folate (280 - 791) ng/mL 02/22/23 Range/Units 11:32 RBC (4.30-5.90) m/uL Hgb (13.0-17.5) gm/dL Hct (39.0-53.0) % MCV (80.0-100.0) fL RDW (11.5-15.5) % Macrocytosis Sodium (137-145) mmol/L Chloride (98-107) mmol/L BUN (9-20) mg/dL Creatinine (0.66-1.25) mg/dL Glucose (74-99) mg/dL POC Glucose (mg/dL) 193 H (70-110) mg/dL RBC Folate (280 - 791) ng/mL Assessment and Plan Assessment: 1. End-stage renal disease on peritoneal dialysis 2. Acute blood loss anemia status post packed RBCs transfusion. No obvious source of GI bleed identified on EGD and colonoscopy. Capsule endoscopy in progress by GI. Hematology also on consult. Maintained on Aranesp 3. Hypotension most likely related to anemia. Currently maintained on midodrine. Cortisol level was not low. 4. CK D mineral bone disorder 5. Hyponatremia associated with CK D. 6. Hypokalemia secondary to PD 7. Volume overload Plan: Continue with current PD exchanges Continue Aranesp Continue to monitor hemoglobin Continue IV Lasix If blood pressure is further improved I will add a 2.5% exchange to increase UF. Avoid any further fluid boluses.
--- NOTE | 2023-02-22 13:51 | P.DS ---
Providers Date of admission: 02/15/23 01:50 Expected date of discharge: 02/22/23 Attending physician: Koffi Landers MD Consults: 02/15/23 01:50 Consult Physician Routine Consulting Provider: Corin Cortez Consult Reason/Comments: known Do you want consulting provider notified?: Yes 02/20/23 12:11 Consult Physician Routine Consulting Provider: Mayra Matos Consult Reason/Comments: possible capsule endoscopy Do you want consulting provider notified?: Yes 02/20/23 12:23 Consult Physician Routine Consulting Provider: Ángel Mayorga Consult Reason/Comments: anemia Do you want consulting provider notified?: Yes Primary care physician: KAMARI Lassiter Hospital Course: 77 year old M with end-stage renal disease on hemodialysis, diabetes, permanent atrial fibrillation status post pacemaker presented for generalized weakness, lightheadedness, low Hg on outside lab. Upon arrival, patient was afebrile, 84/50, 97% on 4 L nasal cannula, heart rate 85. CBC demonstrated leukocytosis to 15.2, hemoglobin 7.2. Basic metabolic panel showed sodium of 128, chloride 90, CO2 21, gap of 17, BUN of 81, creatinine 4.62. Liver function test showed alkaline phosphatase elevation of 143, otherwise unremarkable. BNP was 9050. Coags were unremarkable. EKG showed permanent atrial fibrillation with V paced rhythm. Chest x-ray showed moderate cardiomegaly without acute process. Case was discussed with emergency room physician and decision was made to admit the patient for further evaluation of possible bleeding. Patient underwent EGD on 02/16, this was significant for polyps which were removed for pathology but no source of bleeding. He proceeded to colonoscopy on 02/19. He was transfused 2 units of PRBC for Hg of 6.9 on 02/18. Colonoscopy showed diverticulosis. Pertinent studies include chest x-ray, EKG, Echocardiogram. Pertinent procedures include EGD, capsule endoscopy and colonoscopy. 02/20 Patient was seen and examined. Patient reports no bowel movements since colonoscopy. He would like to know why his Hg is so low. CBC shows Hg of 8 with MCV 102.6. BMP shows Na 129, K 3, Cl 92, BUN 53, Cr 2.66, glucose 178. BP is 78/42, P 67, T 98.1F, 94% on CPAP. BP on repeat is 94/50. CBC, BMP and Mag level is pending this morning. 02/21 Patient was seen and examined. He reports no changes in his condition. He is currently undergoing capsule endoscopy. CBC shows Hg 8.5 with MCV 103.3. BMP shows Na 132, K 3.3, Cl 94, BUN 49, Cr 2.83, glucose 158. Iron is 41. Ferritin is 785. B12 872. 02/22 Patient was see and examined. No acute events overnight. Patient reports fatigue but no other complaints. CBC shows Hg of 7.9 with MCV of 103.3. BMP shows Na 131, Cl 94, BUN 46, Cr 2.66, glucose 149. Capsule endoscopy done shows a possible AVM with no active bleed. He has been restarted on anticoagulation. Patient will be discharged home today with a follow up with Hematology, Nephrology and Gastroenterology. He is to repeat CBC in 3 days to be followed up with his PCP. General: non toxic, no distress, appears at stated age Derm: warm, dry Head: atraumatic, normocephalic, symmetric Eyes: EOMI, no lid lag, anicteric sclera Cardiovascular: Good distal perfusion all 4 extremities Resp: good air exchange, breathing comfortably with no accessory muscle use Ext: no gross muscle atrophy, no edema, no contractures Neuro: no focal neuro deficits Psych: Alert, oriented, appropriate affect Discharge Diagnosis: Acute blood loss anemia Hypokalemia Melenic stools Permanent atrial fibrillation on Apixiban Hypertension Hyperlipidemia COPD without exacerbation Diabetes type 2 Hypothyroidism End-stage renal disease on peritoneal dialysis This complex discharge took 35 minutes to complete. Patient Condition at Discharge: Stable Plan - Discharge Summary Discharge Rx Participant: No New Discharge Prescriptions: Continue allopurinoL [Zyloprim] 300 mg PO DAILY Acetaminophen Tab [Tylenol] 325 mg PO QID PRN PRN Reason: Pain Or Fever > 100.5 Multivitamins, Thera [Multivitamin (formulary)] 1 tab PO DAILY Albuterol Sulfate [Proair Hfa] 2 puff INHALATION RT-QID PRN PRN Reason: Shortness Of Breath Lovastatin [Altoprev] 40 mg PO HS Aspirin [Adult Low Dose Aspirin EC] 81 mg PO DAILY methocarbamoL [Methocarbamol] 500 mg PO HS glipiZIDE [Glucotrol] 10 mg PO HS Gentamicin 0.1% Cream 1 applic TOPICAL DAILY Levothyroxine Sodium [Synthroid] 50 mcg PO DAILY Ipratropium-Albuterol Nebulize [Duoneb 0.5 mg-3 mg/3 ml Soln] 3 ml INHALATION RT-Q6H PRN PRN Reason: Shortness Of Breath Apixaban [Eliquis] 5 mg PO BID Lactulose 10 gm PO BID PRN PRN Reason: Constipation Torsemide [Demadex] 80 mg PO DAILY Omeprazole 40 mg PO DAILY traMADol HCl [Ultram] 50 mg PO Q6H PRN #6 tab PRN Reason: Pain Potassium Chloride ER [K-Dur 10] 20 meq PO DAILY Docusate Calcium 240 mg PO DAILY Calcium Carbonate [Tums] 500 mg PO DAILY glipiZIDE [Glucotrol] 20 mg PO DAILY Ferrous Sulfate [Iron (65 MG Elemental)] 325 mg PO DAILY metOLazone [Zaroxolyn] 10 mg PO DAILY Midodrine HCl [ProAmatine] 10 mg PO QID Sucralfate [Carafate] 1 gm PO BID Discharge Medication List allopurinoL [Zyloprim] 300 mg PO DAILY 11/21/14 [History] Acetaminophen Tab [Tylenol] 325 mg PO QID PRN 07/12/16 [History] Multivitamins, Thera [Multivitamin (formulary)] 1 tab PO DAILY 10/03/17 [History] Albuterol Sulfate [Proair Hfa] 2 puff INHALATION RT-QID PRN 06/23/18 [History] Levothyroxine Sodium [Synthroid] 50 mcg PO DAILY 05/24/21 [History] Lovastatin [Altoprev] 40 mg PO HS 05/24/21 [History] Ipratropium-Albuterol Nebulize [Duoneb 0.5 mg-3 mg/3 ml Soln] 3 ml INHALATION RT-Q6H PRN 08/09/21 [History] Apixaban [Eliquis] 5 mg PO BID 09/28/21 [History] Aspirin [Adult Low Dose Aspirin EC] 81 mg PO DAILY 03/29/22 [History] Lactulose 10 gm PO BID PRN 03/29/22 [History] Omeprazole 40 mg PO DAILY 03/29/22 [History] Torsemide [Demadex] 80 mg PO DAILY 03/29/22 [History] traMADol HCl [Ultram] 50 mg PO Q6H PRN #6 tab 03/30/22 [Rx] Calcium Carbonate [Tums] 500 mg PO DAILY 02/14/23 [History] Docusate Calcium 240 mg PO DAILY 02/14/23 [History] Ferrous Sulfate [Iron (65 MG Elemental)] 325 mg PO DAILY 02/14/23 [History] Gentamicin 0.1% Cream 1 applic TOPICAL DAILY 02/14/23 [History] Midodrine HCl [ProAmatine] 10 mg PO QID 02/14/23 [History] Potassium Chloride ER [K-Dur 10] 20 meq PO DAILY 02/14/23 [History] glipiZIDE [Glucotrol] 10 mg PO HS 02/14/23 [History] glipiZIDE [Glucotrol] 20 mg PO DAILY 02/14/23 [History] metOLazone [Zaroxolyn] 10 mg PO DAILY 02/14/23 [History] methocarbamoL [Methocarbamol] 500 mg PO HS 02/14/23 [History] Sucralfate [Carafate] 1 gm PO BID 02/15/23 [History] Follow up Appointment(s)/Referral(s): Ángel Mayorga [STAFF PHYSICIAN] - 1 Week Corin Cortez MD [STAFF PHYSICIAN] - 1 Week Andreia Blair, KAMARI [Primary Care Provider] - 1-2 days Mayra Matos MD [STAFF PHYSICIAN] - 1 Week Ambulatory/Diagnostic Orders: Complete Blood Count w/diff [LAB.AMB] Time Frame: 3 Days, Location: None Selected Patient Instructions/Handouts: Diverticulosis (DC), Diverticulosis Diet (GEN) Activity/Diet/Wound Care/Special Instructions: Diet; Renal Repeat CBC in 3 days to be followed with your PCP. Discharge/Stand Alone Forms: Who Do I Call?, Community Resources, Help In The Home Discharge Disposition: HOME SELF-CARE
[2023-02-22 16:28] VITALS: PULSE 88
[2023-02-22 16:55] LABS: Glucose,Whole Blood 211 mg/dL (70-110)
[2023-02-24] MEDS ORDERED: DIALYSIS (PERIT 1.5%) 2,000 ML 30 G/2,000 ML BAG INTRAPERIT SCH (06:00)
--- NOTE | 2023-02-24 21:51 | CDI ---
Documentation Clarification Form Date: 02/24/2023 09:38:11 PM From: Anita Kam Phone: Admit Date: 02/15/2023 01:50:00 AM Patient Name: Tristian Galloway Visit Number: [id number] Discharge Date: 02/22/2023 06:01:00 PM ATTENTION: The Clinical Documentation Specialists (CDI) and [facility] Coding Staff appreciate your assistance in clarifying documentation. Please respond to the clarification below the line at the bottom and electronically sign. The CDI & [facility] Coding staff will review the response and follow-up if needed. Please note: Queries are made part of the Legal Health Record. If you have any questions, please contact the author of this message via ITS. Dr. Troy Martineznam Your patient has the documented diagnosis of unspecified CHF per ED Note and throughout. Additional information regarding the type and acuity of CHF is requested. History/Risk Factors: 77yo M, chronic gastritis w bleeding, permanent AF, cardiomyopathy, ESRD on peritoneal dialysis, ABLA, hypotension, CKD mineralbone disorder, hyponatremia, hypokalemia, SSS w PPM, Volume overload, cardiomegaly Clinical Indicators: VS/Pulse OX: 02/14 97 02/22 94 BNP: 9350 Echocardiogram Results: Left ventricular ejection fraction 35-40%. Moderately increased. Septal wallthickening. Severe rightventricular dilation. RVSP 58. Mildmitral regurgitation. Mildtricuspid regurgitation Chest X Ray: No acute pulmonary process. Moderatecardiomegaly Treatment: Continue IV Lasix. If bloodpressureis further improved I will add a 2.5% exchange to increase UF. Avoid any further fluid boluses. In your professional opinion, can you please clarify the acuity and type of CHF if known? [ ] Acute Systolic Heart Failure (reduced EF) [ ] Chronic Systolic Heart Failure (reduced EF) [x ] Acute on Chronic Systolic Heart Failure (reduced EF) [ ] Acute Diastolic Heart Failure (preserved EF) [ ] Chronic Diastolic Heart Failure (preserved EF) [ ] Acute on Chronic Diastolic Heart Failure (preserved EF) [ ] Acute Systolic & Diastolic Heart Failure [ ] Chronic Systolic & Diastolic Heart Failure [ ] Acute on Chronic Heart Failure Systolic & Diastolic Heart Failure [ ] Other, please specify [ ] Unable to determine (Template Last Revised: August 2020) MTDD
== END 2023-02-22 18:01 | disposition home health service (06) | DRG 811 ==
LOC: EC 22:41 → 3SCARD 02-15 01:50 → 2SICU 02-15 03:38 → 3SCARD 02-15 04:37
PROVIDERS: ADMIT Internal Medicine; ATTEND Internal Medicine
PROC: 3E1M39Z Irrigation of Peritoneal Cavity using Dialysate, Percutaneous Approach (ICD-10-PCS; 2023-02-15)
PROC: 30233N1 Transfusion of Nonautologous Red Blood Cells into Peripheral Vein, Percutaneous Approach (ICD-10-PCS; 2023-02-15)
PROC: 0DB78ZX Excision of Stomach, Pylorus, Via Natural or Artificial Opening Endoscopic, Diagnostic (ICD-10-PCS; 2023-02-16)
PROC: 0DB78ZX Excision of Stomach, Pylorus, Via Natural or Artificial Opening Endoscopic, Diagnostic (ICD-10-PCS; principal; 2023-02-16 07:30)
PROC: 6A550Z0 Pheresis of Erythrocytes, Single (ICD-10-PCS; 2023-02-18)
PROC: 0DJD8ZZ Inspection of Lower Intestinal Tract, Via Natural or Artificial Opening Endoscopic (ICD-10-PCS; 2023-02-19)
DX: D62 Acute posthemorrhagic anemia (principal); I50.23 Acute on chronic systolic (congestive) heart failure; K29.51 Unspecified chronic gastritis with bleeding; N18.6 End stage renal disease; K57.31 Diverticulosis of large intestine without perforation or abscess with bleeding; I13.2 Hypertensive heart and chronic kidney disease with heart failure and with stage 5 chronic kidney disease, or end stage renal disease; I42.9 Cardiomyopathy, unspecified; E87.20 Acidosis, unspecified; E87.1 Hypo-osmolality and hyponatremia; I48.21 Permanent atrial fibrillation; J44.9 Chronic obstructive pulmonary disease, unspecified; E11.22 Type 2 diabetes mellitus with diabetic chronic kidney disease; I49.5 Sick sinus syndrome; I27.20 Pulmonary hypertension, unspecified; Z99.2 Dependence on renal dialysis; D63.1 Anemia in chronic kidney disease; I95.89 Other hypotension; Z99.81 Dependence on supplemental oxygen; E03.9 Hypothyroidism, unspecified; I07.1 Rheumatic tricuspid insufficiency; D50.9 Iron deficiency anemia, unspecified; D53.9 Nutritional anemia, unspecified; K31.7 Polyp of stomach and duodenum; K44.9 Diaphragmatic hernia without obstruction or gangrene; F41.9 Anxiety disorder, unspecified; E83.42 Hypomagnesemia; M89.8X9 Other specified disorders of bone, unspecified site; E87.6 Hypokalemia; E78.5 Hyperlipidemia, unspecified; G47.33 Obstructive sleep apnea (adult) (pediatric); M19.90 Unspecified osteoarthritis, unspecified site; K21.9 Gastro-esophageal reflux disease without esophagitis; Z79.890 Hormone replacement therapy; Z79.01 Long term (current) use of anticoagulants; Z79.82 Long term (current) use of aspirin; Z79.84 Long term (current) use of oral hypoglycemic drugs; Z88.8 Allergy status to other drugs, medicaments and biological substances; Z86.14 Personal history of Methicillin resistant Staphylococcus aureus infection; Z86.19 Personal history of other infectious and parasitic diseases; Z87.891 Personal history of nicotine dependence; Z95.0 Presence of cardiac pacemaker; Z90.49 Acquired absence of other specified parts of digestive tract; Z79.899 Other long term (current) drug therapy; Z87.19 Personal history of other diseases of the digestive system
CPT/HCPCS: 36415; 36430; 43239; 45378; 71045; 80048; 80053; 81001; 82533; 82607; 82668; 82728; 82747; 83540; 83550; 83605; 83735; 83880; 84100; 84484; 85025; 85027; 85045; 85610; 85730; 86850; 86900; 86901; 86920; 87040; 88305; 88342; 89050; 91110; 93005; 93306; 94640; 94660; 94760; 96361; 96365; 96375; 99291

== ENCOUNTER 2023-05-09 22:17 | Inpatient (IN) | payer MEDICARE ==
--- NOTE | 2023-05-09 22:49 | ED ---
General Adult HPI - General Chief complaint: Chest Pain Stated complaint: Chest Pain Time Seen by Provider: 05/09/23 22:31 Source: patient, EMS Mode of arrival: EMS Limitations: no limitations - History of Present Illness Initial comments: Dictation was produced using [employer] dictation software. please excuse any grammatical, word or spelling errors. Chief Complaint: 77-year-old male past medical history of peritoneal dialysis presents with total body pain for 2 days History of Present Illness: Patient's 77-year-old male. He was just discharged from [facility]. States that he is here today after having acute onset total body pain. States that his whole body hurts including his head is negative his chest is abdomen his extremities. Denies any fever or constitutional symptoms. Patient states that he was brought in by EMS after his called EMS. Patient states that he does not be discharged until he has some answers as to why he is having total body pain. The ROS documented in this emergency department record has been reviewed and confirmed by me. Those systems with pertinent positive or negative responses have been documented in the HPI. All other systems are other negative and/or noncontributory. - Related Data Home Medications Medication Instructions Recorded Confirmed allopurinoL [Zyloprim] 300 mg PO DAILY 11/21/14 02/14/23 Acetaminophen Tab [Tylenol] 325 mg PO QID PRN 07/12/16 02/14/23 Multivitamins, Thera [Multivitamin 1 tab PO DAILY 10/03/17 02/14/23 (formulary)] Albuterol Sulfate [Proair Hfa] 2 puff INHALATION RT-QID PRN 06/23/18 02/14/23 Levothyroxine Sodium [Synthroid] 50 mcg PO DAILY 05/24/21 02/15/23 Lovastatin [Altoprev] 40 mg PO HS 05/24/21 02/14/23 Ipratropium-Albuterol Nebulize 3 ml INHALATION RT-Q6H PRN 08/09/21 02/14/23 [Duoneb 0.5 mg-3 mg/3 ml Soln] Apixaban [Eliquis] 5 mg PO BID 09/28/21 02/15/23 Aspirin [Adult Low Dose Aspirin EC] 81 mg PO DAILY 03/29/22 02/14/23 Lactulose 10 gm PO BID PRN 03/29/22 02/14/23 Omeprazole 40 mg PO DAILY 03/29/22 02/14/23 Torsemide [Demadex] 80 mg PO DAILY 03/29/22 02/14/23 Calcium Carbonate [Tums] 500 mg PO DAILY 02/14/23 02/14/23 Docusate Calcium 240 mg PO DAILY 02/14/23 02/14/23 Ferrous Sulfate [Iron (65 MG 325 mg PO DAILY 02/14/23 02/14/23 Elemental)] Gentamicin 0.1% Cream 1 applic TOPICAL DAILY 02/14/23 02/14/23 Midodrine HCl [ProAmatine] 10 mg PO QID 02/14/23 02/14/23 Potassium Chloride ER [K-Dur 10] 20 meq PO DAILY 02/14/23 02/14/23 glipiZIDE [Glucotrol] 10 mg PO HS 02/14/23 02/14/23 glipiZIDE [Glucotrol] 20 mg PO DAILY 02/14/23 02/14/23 metOLazone [Zaroxolyn] 10 mg PO DAILY 02/14/23 02/14/23 methocarbamoL 500 mg PO HS 02/14/23 02/14/23 Sucralfate [Carafate] 1 gm PO BID 02/15/23 02/15/23 Previous Rx's Medication Instructions Recorded traMADol HCl [Ultram] 50 mg PO Q6H PRN #6 tab 03/30/22 Allergies Allergy/AdvReac Type Severity Reaction Status Date / Time lisinopril AdvReac Mild Cough Verified 05/09/23 22:27 Review of Systems ROS Statement: Those systems with pertinent positive or pertinent negative responses have been documented in the HPI. ROS Other: All systems not noted in ROS Statement are negative. Past Medical History Past Medical History: Atrial Fibrillation, COPD, Diabetes Mellitus, Dialysis, GERD/Reflux, Hyperlipidemia, Hypertension, Osteoarthritis (OA), Renal Disease, Sleep Apnea/CPAP/BIPAP, Thyroid Disorder Additional Past Medical History / Comment(s): O2 3L per nasal cannula. Dialysis MOWEFR. Cardiomyopathy. Gout. Constipation. 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 hemodialysis cath, Past Anesthesia/Blood Transfusion Reactions: No Reported Reaction Type of Cardiac Device: Permanent Pacemaker Device Placement Date:: 10/17/2012 Past Psychological History: No Psychological Hx Reported Smoking Status: Former smoker Past Alcohol Use History: None Reported Past Drug Use History: None Reported - Past Family History Father History Unknown: Yes Additional Family Medical History / Comment(s): "hardening of the arteries" Mother History Unknown: Yes Additional Family Medical History / Comment(s): "water in the lungs" at 95. General Exam - General Exam Comments Initial Comments: PHYSICAL EXAM: General Impression: Alert and oriented x3, not in acute distress HEENT: Normocephalic atraumatic, extra-ocular movements intact, pupils equal and reactive to light bilaterally, mucous membranes moist. Cardiovascular: Heart regular rate and rhythm Chest: Able to complete full sentences, no retractions, no tachypnea Abdomen: abdomen soft, non-tender, non-distended, no organomegaly Musculoskeletal: Pulses present and equal in all extremities, no peripheral edema Motor: no focal deficits noted Neurological: CN II-XII grossly intact, no focal motor or sensory deficits noted Skin: Intact with no visualized rashes Psych: Normal affect and mood Limitations: no limitations Course Vital Signs 05/09/23 05/10/23 22:23 06:00 Temperature 97.4 F L Pulse Rate 73 74 Respiratory 18 18 Rate Blood Pressure 103/62 96/57 O2 Sat by Pulse 98 97 Oximetry Medical Decision Making - Medical Decision Making Patient's chart was started prior to medic tach down time. Conclusion of patient's chart was done using metastatic down time. Work. Please see downtime paperwork for conclusion of patient's care. Briefly, patient is a 77-year-old male presents to the emergency department for total body pain. Labs unremarkable. Disposition options were discussed with patient ultimately he was not agreeable to discharge. He is provided reassurance. He states that his social situation at home is not reliable. He did not fill safe. Patient admitted to observation with consultation to PT, OT and social work. This discussed with Elodia Aldrich for admission and she is agreeable on behalf of [facility] hospitalist group. - Lab Data Result diagrams: 05/09/23 22:45 10/18/23 22:45 Lab Results 05/09/23 05/09/23 Range/Units 22:45 22:45 WBC 13.8 H (3.8-10.6) k/uL RBC 3.00 L (4.30-5.90) m/uL Hgb 9.4 L (13.0-17.5) gm/dL Hct 29.4 L (39.0-53.0) % MCV 97.8 (80.0-100.0) fL MCH 31.3 (25.0-35.0) pg MCHC 32.0 (31.0-37.0) g/dL RDW 18.8 H (11.5-15.5) % Plt Count 323 (150-450) k/uL MPV 7.7 Neutrophils % 88 % Lymphocytes % 7 % Monocytes % 3 % Eosinophils % 1 % Basophils % 0 % Neutrophils # 12.2 H (1.3-7.7) k/uL Lymphocytes # 1.0 (1.0-4.8) k/uL Monocytes # 0.4 (0-1.0) k/uL Eosinophils # 0.1 (0-0.7) k/uL Basophils # 0.0 (0-0.2) k/uL Hypochromasia Slight Poikilocytosis Slight Anisocytosis Slight Macrocytosis Slight Sodium 129 L (137-145) mmol/L Potassium 3.8 (3.5-5.1) mmol/L Chloride 91 L (98-107) mmol/L Carbon Dioxide 27 (22-30) mmol/L Anion Gap 11 mmol/L BUN 56 H (9-20) mg/dL Creatinine 3.55 H (0.66-1.25) mg/dL Est GFR (CKD-EPI)AfAm 18 (>60 ml/min/1.73 sqM) Est GFR (CKD-EPI)NonAf 16 (>60 ml/min/1.73 sqM) Glucose 132 H (74-99) mg/dL Calcium 8.0 L (8.4-10.2) mg/dL Total Bilirubin 0.4 (0.2-1.3) mg/dL AST 18 (17-59) U/L ALT 17 (4-49) U/L Alkaline Phosphatase 146 H (38-126) U/L Creatine Kinase 25 L (55-170) U/L Total Protein 5.6 L (6.3-8.2) g/dL Albumin 2.8 L (3.5-5.0) g/dL Disposition Clinical Impression: Gravely disabled Disposition: ADMITTED IP TO THIS HOSP Condition: Fair Referrals: Nayan Georges [Primary Care Provider] - 1-2 days
[2023-05-09 22:56] LABS: Anisocytosis Slight; Basophils % (A) 0 %; Eosinophils # (A) 0.1 k/uL (0-0.7); Eosinophils % (A) 1 %; HCT 29.4 % (39.0-53.0); HGB 9.4 gm/dL (13.0-17.5); Hypochromasia Slight; Lymphocytes % (A) 7 %; MCH 31.3 pg (25.0-35.0); MCV 97.8 fL (80.0-100.0); Macrocytosis Slight; Mean Platelet Volume 7.7; Monocytes # (A) 0.4 k/uL (0-1.0); Monocytes % (A) 3 %; Neutrophils # (A) 12.2 k/uL (1.3-7.7); Neutrophils % (A) 88 %; Platelet Count 323 k/uL (150-450); Poikilocytosis Slight; RDW 18.8 % (11.5-15.5); WBC 13.8 k/uL (3.8-10.6)
[2023-05-10 06:03] LABS: ALT 17 U/L (4-49); AST 18 U/L (17-59); African American GFR (CKD) 18 (>60 ml/min/1.73 sqM); Albumin 2.8 g/dL (3.5-5.0); Alkaline Phosphatase 146 U/L (38-126); Anion Gap 11 mmol/L; Blood Urea Nitrogen 56 mg/dL (9-20); Carbon Dioxide 27 mmol/L (22-30); Chloride 91 mmol/L (98-107); Creatine Kinase 25 U/L (55-170); Glucose 132 mg/dL (74-99); Non-African American GFR(CKD) 16 (>60 ml/min/1.73 sqM); Potassium 3.8 mmol/L (3.5-5.1); Sodium 129 mmol/L (137-145); Total Bilirubin 0.4 mg/dL (0.2-1.3); Total Protein 5.6 g/dL (6.3-8.2)
[2023-05-10] MEDS ORDERED: DEXTROSE 50% SYRINGE 50 ML IVP PRN ×2 (09:30)
[2023-05-10] MEDS ORDERED: MAG HYDROX/AL HYDROX/SIMETH 30 ML CUP PO PRN (09:31)
[2023-05-10] MEDS ORDERED: MELATONIN 3 MG TABLET PO PRN (09:31)
[2023-05-10] MEDS ORDERED: NALOXONE 0.4 MG/ML 1 ML VIAL IV PRN (09:31)
[2023-05-10] MEDS ORDERED: ONDANSETRON 4 MG/2 ML VIAL IVP PRN (09:31)
[2023-05-10] MEDS ORDERED: TORSEMIDE 20 MG TAB PO SCH (10:00)
[2023-05-10] MEDS: MULTIVITAMINS, THERA 1 EACH TAB PO SCH (10:33)
[2023-05-10] MEDS: MIDODRINE 5 MG TAB PO SCH ×4 (10:33→20:43)
[2023-05-10 10:37] LABS: ALT 17 U/L (4-49); AST 19 U/L (17-59); African American GFR (CKD) 17 (>60 ml/min/1.73 sqM); Albumin 2.8 g/dL (3.5-5.0); Alkaline Phosphatase 124 U/L (38-126); Anion Gap 11 mmol/L; Blood Urea Nitrogen 61 mg/dL (9-20); Calcium 8.2 mg/dL (8.4-10.2); Carbon Dioxide 25 mmol/L (22-30); Chloride 92 mmol/L (98-107); Globulin 2.9 g/dL; Glucose 61 mg/dL (74-99); Non-African American GFR(CKD) 15 (>60 ml/min/1.73 sqM); Potassium 4.5 mmol/L (3.5-5.1); Sodium 128 mmol/L (137-145); Total Bilirubin 0.5 mg/dL (0.2-1.3); Total Protein 5.7 g/dL (6.3-8.2)
[2023-05-10 10:51] LABS: Anisocytosis Slight; Basophils % (A) 0 %; Eosinophils # (A) 0.1 k/uL (0-0.7); Eosinophils % (A) 0 %; HCT 30.2 % (39.0-53.0); HGB 9.6 gm/dL (13.0-17.5); Hypochromasia Marked; Lymphocytes # (A) 1.1 k/uL (1.0-4.8); Lymphocytes % (A) 8 %; MCH 32.4 pg (25.0-35.0); MCHC 31.7 g/dL (31.0-37.0); Macrocytosis Moderate; Mean Platelet Volume 7.3; Monocytes # (A) 0.4 k/uL (0-1.0); Monocytes % (A) 3 %; Neutrophils # (A) 11.7 k/uL (1.3-7.7); Neutrophils % (A) 87 %; Platelet Count 310 k/uL (150-450); Poikilocytosis Slight; RBC 2.96 m/uL (4.30-5.90); WBC 13.4 k/uL (3.8-10.6)
[2023-05-10 12:14] LABS: Glucose,Whole Blood 118 mg/dL (70-110)
[2023-05-10] MEDS: INSULIN ASPART (NovoLOG) 100 UNIT/ML VIAL SQ SCH ×3 (12:14→22:28)
[2023-05-10] MEDS: FLUDROCORTISONE 0.1 MG TAB PO SCH (12:30)
[2023-05-10] MEDS ORDERED: LACTULOSE 20 GM/30 ML CUP PO PRN (12:56)
--- NOTE | 2023-05-10 12:58 | P.NPCON ---
History of Present Illness - Reason for Consult end stage renal disease - History of Present Illness Reason for consultation: End-stage renal disease History of present illness: Patient is a 77-year-old male seen in renal consultation for end-stage renal disease. He is maintained on peritoneal dialysis. Patient states he has no problems with peritoneal dialysis changes. Dialysate Ess[place] clear. No ab dominal pain. He is currently having lunch. No vomiting or diarrhea. Patient came to the hospital due to generalized weakness. Patient states he's been having generalized body pain. Denies fever. Blood pressure has been on the lower side but improved with midodrine. Patient hasn't done any dialysis exchanges the last 24 hours. Patient states he makes little urine. Patient states he was recently admitted at [facility] due to GI bleed. Patient's is no active bleeding was found but his anticoagulation was discontinued. He admits to black stools from IV iron but otherwise no signs or symptoms of bleeding. Patient's hemoglobin this admission is stable at 9.6. Vital signs are stable. General: No acute distress. HEENT: Head exam is unremarkable. On nasal cannula. LUNGS: No audible rhonchi or wheezes. HEART: Rate and Rhythm are regular. ABDOMEN: Nontender. Obese. EXTREMITITES: No edema. Past Medical History Past Medical History: Atrial Fibrillation, COPD, Diabetes Mellitus, Dialysis, GERD/Reflux, Hyperlipidemia, Hypertension, Osteoarthritis (OA), Renal Disease, Sleep Apnea/CPAP/BIPAP, Thyroid Disorder Additional Past Medical History / Comment(s): O2 3L per nasal cannula. Dialysis MOWEFR. Cardiomyopathy. Gout. Constipation. 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 hemodialysis cath, Past Anesthesia/Blood Transfusion Reactions: No Reported Reaction Type of Cardiac Device: Permanent Pacemaker Device Placement Date:: 10/17/2012 Past Psychological History: No Psychological Hx Reported Smoking Status: Former smoker Past Alcohol Use History: None Reported Past Drug Use History: None Reported - Past Family History Father History Unknown: Yes Additional Family Medical History / Comment(s): "hardening of the arteries" Mother History Unknown: Yes Additional Family Medical History / Comment(s): "water in the lungs" at 95. Medications and Allergies Home Medications Medication Instructions Recorded Confirmed Type allopurinoL [Zyloprim] 300 mg PO DAILY 11/21/14 05/10/23 History Acetaminophen Tab [Tylenol] 650 mg PO BID 07/12/16 05/10/23 History Multivitamins, Thera [Multivitamin 1 tab PO DAILY 10/03/17 05/10/23 History (formulary)] Lovastatin [Altoprev] 40 mg PO HS 05/24/21 05/10/23 History Aspirin [Adult Low Dose Aspirin EC] 81 mg PO DAILY 03/29/22 05/10/23 History Lactulose 2 tsp PO DAILY 03/29/22 05/10/23 History Omeprazole 40 mg PO DAILY 03/29/22 05/10/23 History Torsemide [Demadex] 80 mg PO DAILY 03/29/22 05/10/23 History Ferrous Sulfate [Iron (65 MG 325 mg PO BID 02/14/23 05/10/23 History Elemental)] Midodrine HCl [ProAmatine] 10 mg PO QID 02/14/23 05/10/23 History glipiZIDE [Glucotrol] 10 mg PO AC-BID 02/14/23 05/10/23 History Sucralfate [Carafate] 1 gm PO BID 02/15/23 05/10/23 History Amiodarone [Cordarone] 400 mg PO DAILY 05/10/23 05/10/23 History Docusate [Colace] 100 mg PO BID 05/10/23 05/10/23 History Fludrocortisone [Florinef] 0.1 mg PO DAILY 05/10/23 05/10/23 History Potassium Chloride ER [K-Dur 20] 20 meq PO BID 05/10/23 05/10/23 History Allergies Allergy/AdvReac Type Severity Reaction Status Date / Time lisinopril AdvReac Mild Cough Verified 05/10/23 07:08 Physical Exam Vitals: Vital Signs Temp Pulse Resp BP Pulse Ox 05/10/23 11:00 68 18 93/57 97 05/10/23 10:00 69 18 77/48 97 05/10/23 09:00 70 18 86/52 98 05/10/23 08:00 71 18 100/56 98 05/10/23 06:00 74 18 96/57 97 05/09/23 22:23 97.4 F L 73 18 103/62 98 Intake and Output 05/09/23 05/10/23 05/10/23 22:59 06:59 14:59 Other: Weight 113.398 kg Results - Lab Results Most recent lab results Calcium 8.2 mg/dL (8.4-10.2) L 05/10/23 09:36 05/10/23 09:36 05/10/23 09:36 Assessment and Plan Plan: Assessment: 1. End-stage renal disease maintained on peritoneal dialysis. 2. Generalized weakness and debility. 3. Anemia of chronic kidney disease. Rule out iron deficiency. 4. Hyponatremia secondary to chronic kidney disease. 5. Chronic hypotension maintained on midodrine and Florinef. 6. Diabetes mellitus. Plan: Start PD exchanges - 2.5 L every 6 hours with 1.5% solution. Stop torsemide as he makes minimal urine and blood pressure is low. Increase midodrine to 10 mg 4 times a day per home dosing. Hold for systolic blood pressure greater than 110. Check phosphorus level. Check iron studies. Lactulose as needed for consultation. Add Aranesp. 1200 mL fluid restriction. Encourage oral intake. Thank you for the consultation. I will continue to follow the patient during his hospital stay.
[2023-05-10] MEDS ORDERED: DARBEPOETIN ALFA 40 MCG/0.4 ML SYRINGE SQ SCH (13:00)
[2023-05-10] MEDS ORDERED: DIALYSIS (PERIT 1.5%) 2,500 ML 37.5 G/2,500 ML BAG INTRAPERIT SCH (14:00)
--- NOTE | 2023-05-10 14:36 | P.HPIM ---
History of Present Illness H&P Date: 05/10/23 History of present illness; patient 77-year-old gentleman with past medical hist ory significant for atrial fibrillation, hypertension, diabetes mellitus presented to the ER because of generalized body aches. Patient was recently discharged from [facility] after being admitted there for GI bleed, workup was negative for any active bleeding, his anticoagulation was discontinued. Patient stated that he has been been having generalized body aches for the last 2 days. Denies any fever or chills at home. Denies any nausea or vomiting. Denies any burning urination or increased frequency of urination. Denies any chest pain or shortness of breath. Did not notice any blood in his stools, denied any hematemesis. Because of generalized body aches, patient came to the ER Initial lab work done in the ER showed WBC 13.8, hemoglobin 9.4, platelet count 323, sodium 129, potassium 3.8, BUN 56, creatinine 3.55 Initial workup in the ER was benign, ER physician talked to the patient regarding discharge but the patient at this time felt that he was not equipped to take care of himself at home and does not feel safe there. Patient was admitted to medicine service REVIEW OF SYSTEMS: CONSTITUTIONAL: No fever. Complaining of generalized body aches HEENT: No recent visual problems or hearing problems. Denied any sore throat. CARDIOVASCULAR: No chest pain, orthopnea, PND, no palpitations, no syncope. PULMONARY: No shortness of breath, no cough, no hemoptysis. GASTROINTESTINAL: No diarrhea, no nausea, no vomiting, no abdominal pain. NEUROLOGICAL: No headaches, no weakness, no numbness. HEMATOLOGICAL: Denies any bleeding or petechiae. GENITOURINARY: Denies any burning micturition, frequency, or urgency. MUSCULOSKELETAL/RHEUMATOLOGICAL: Denies any joint pain, swelling, or any muscle pain. ENDOCRINE: Denies any polyuria or polydipsia. The rest of the 14-point review of systems is negative. PHYSICAL EXAMINATION: GENERAL: The patient is alert and oriented x3, not in any acute distress. Well developed, well nourished. HEENT: Pupils are round and equally reacting to light. EOMI. No scleral icterus. No conjunctival pallor. Normocephalic, atraumatic. No pharyngeal erythema. No thyromegaly. CARDIOVASCULAR: S1 and S2 present. No murmurs, rubs, or gallops. PULMONARY: Chest is clear to auscultation, no wheezing or crackles. ABDOMEN: Soft, nontender, nondistended, normoactive bowel sounds. No palpable organomegaly. MUSCULOSKELETAL: No joint swelling or deformity. EXTREMITIES: No cyanosis, clubbing, or pedal edema. NEUROLOGICAL: Gross neurological examination did not reveal any focal deficits. SKIN: No rashes. Assessment and plan Generalized weakness Hyponatremia End-stage renal disease on peritoneal dialysis Atrial fibrillation Hypertension Diabetes mellitus COPD Hypothyroid Monitor vital signs Monitor CBC Monitor CMP Trend troponins. Continue antiemetics Consult nephrology for maintenance peritoneal dialysis Consult PT Consult OT Consult case management Resume home meds Labs and medication were reviewed.. Continue same treatment. Continue with symptomatic treatment. Resume home medication. Monitor labs and vitals. DVT and GI prophylaxis. Further recommendations as per clinical course of the patient Dictation was produced using [employer] dictation software. please excuse any gramma tical, word or spelling errors. Past Medical History Past Medical History: Atrial Fibrillation, COPD, Diabetes Mellitus, Dialysis, GERD/Reflux, Hyperlipidemia, Hypertension, Osteoarthritis (OA), Renal Disease, Sleep Apnea/CPAP/BIPAP, Thyroid Disorder Additional Past Medical History / Comment(s): O2 3L per nasal cannula. Dialysis MOWEFR. Cardiomyopathy. Gout. Constipation. 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 hemodialysis cath, Past Anesthesia/Blood Transfusion Reactions: No Reported Reaction Type of Cardiac Device: Permanent Pacemaker Device Placement Date:: 10/17/2012 Past Psychological History: No Psychological Hx Reported Smoking Status: Former smoker Past Alcohol Use History: None Reported Past Drug Use History: None Reported - Past Family History Father History Unknown: Yes Additional Family Medical History / Comment(s): "hardening of the arteries" Mother History Unknown: Yes Additional Family Medical History / Comment(s): "water in the lungs" at 95. Medications and Allergies Home Medications Medication Instructions Recorded Confirmed Type allopurinoL [Zyloprim] 300 mg PO DAILY 11/21/14 05/10/23 History Acetaminophen Tab [Tylenol] 650 mg PO BID 07/12/16 05/10/23 History Multivitamins, Thera [Multivitamin 1 tab PO DAILY 10/03/17 05/10/23 History (formulary)] Lovastatin [Altoprev] 40 mg PO HS 05/24/21 05/10/23 History Aspirin [Adult Low Dose Aspirin EC] 81 mg PO DAILY 03/29/22 05/10/23 History Lactulose 2 tsp PO DAILY 03/29/22 05/10/23 History Omeprazole 40 mg PO DAILY 03/29/22 05/10/23 History Torsemide [Demadex] 80 mg PO DAILY 03/29/22 05/10/23 History Ferrous Sulfate [Iron (65 MG 325 mg PO BID 02/14/23 05/10/23 History Elemental)] Midodrine HCl [ProAmatine] 10 mg PO QID 02/14/23 05/10/23 History glipiZIDE [Glucotrol] 10 mg PO AC-BID 02/14/23 05/10/23 History Sucralfate [Carafate] 1 gm PO BID 02/15/23 05/10/23 History Amiodarone [Cordarone] 400 mg PO DAILY 05/10/23 05/10/23 History Docusate [Colace] 100 mg PO BID 05/10/23 05/10/23 History Fludrocortisone [Florinef] 0.1 mg PO DAILY 05/10/23 05/10/23 History Potassium Chloride ER [K-Dur 20] 20 meq PO BID 05/10/23 05/10/23 History Allergies Allergy/AdvReac Type Severity Reaction Status Date / Time lisinopril AdvReac Mild Cough Verified 05/10/23 07:08 Physical Exam Vitals: Vital Signs Temp Pulse Resp BP Pulse Ox 05/10/23 06:00 74 18 96/57 97 05/09/23 22:23 97.4 F L 73 18 103/62 98 Intake and Output 05/09/23 05/10/23 05/10/23 22:59 06:59 14:59 Other: Weight 113.398 kg Results CBC & Chem 7: 05/10/23 09:36 05/10/23 09:36 Labs: Abnormal Lab Results - Last 24 Hours (Table) 05/09/23 05/09/23 Range/Units 22:45 22:45 WBC 13.8 H (3.8-10.6) k/uL RBC 3.00 L (4.30-5.90) m/uL Hgb 9.4 L (13.0-17.5) gm/dL Hct 29.4 L (39.0-53.0) % RDW 18.8 H (11.5-15.5) % Neutrophils # 12.2 H (1.3-7.7) k/uL Sodium 129 L (137-145) mmol/L Chloride 91 L (98-107) mmol/L BUN 56 H (9-20) mg/dL Creatinine 3.55 H (0.66-1.25) mg/dL Glucose 132 H (74-99) mg/dL Calcium 8.0 L (8.4-10.2) mg/dL Alkaline Phosphatase 146 H (38-126) U/L Creatine Kinase 25 L (55-170) U/L Total Protein 5.6 L (6.3-8.2) g/dL Albumin 2.8 L (3.5-5.0) g/dL
--- NOTE | 2023-05-10 14:55 | P.CRDCN ---
History of Present Illness Consult date: 05/10/23 Reason for Consult (text): Low blood pressure History of present illness: HISTORY OF PRESENT ILLNESS: This is a 77-year-old male patient of Dr. Witt with a past medical history significant for atrial fibrillation, sick sinus syndrome with previous pacemaker implantation, hypertension, diabetes, and end-stage renal disease recently star kerry on CAPD. We have been asked to evaluate patient for hypotension. Patient was last seen in the office on 04/12/2023 at that time was referred by nephrology due to hypotension. Patient was on midodrine 4 times daily and also Florinef. Patient's also contacted the office regarding the difficulty with CAPD and that they are not managing well. Patient states that he just went home from [facility] on Sunday at which he was treated for GI bleed and on he couldn't get out of bed. He feels exhausted. He had a recent hospitalization in February for acute blood loss anemia as well. Patient nonetheless is off anticoagulation. Patient denies having any chest pain or shortness of breath. EKG reveals sinus rhythm with PACs, reviewed by Dr. Witt WBC 13.4, hemoglobin 9.6, platelet count 310. Sodium 128, potassium 4.5, chloride 92, CO2 25, BUN 61 creatinine 3.77. Blood sugar 61. Troponin 0.076 and 0.07. Liver function tests within normal limits. Albumin 2.8. Current home cardiac medications include amiodarone 400 mg daily, Florinef 0.1 mg daily, lovastatin 40 mg at bedtime, Demadex 80 mg daily Echocardiogram 02/20/2023 revealed EF 35-40%, moderately increased septal wall thickening, severe right ventricular dilation, RVSP 58, mild mitral regurgitation, mild tricuspid regurgitation. REVIEW OF SYSTEMS: At the time of my exam: CONSTITUTIONAL: Denies fever or chills.Reports generalized weakness, reports generalized fatigue. HEENT: Denies blurred vision, vision changes, or eye pain. Denies hemoptysis CARDIOVASCULAR: Denies chest pain. Denies orthopnea. Denies PND. Denies palpitations RESPIRATORY: Denies shortness of breath. GASTROINTESTINAL: Denies abdominal pain. Denies nausea or vomiting. HEMATOLOGIC:History of recent GI bleed. GENITOURINARY: Denies any blood in urine. SKIN: Denies pruitis. Denies rash. PHYSICAL EXAM: VITAL SIGNS: Reviewed. Blood pressure systolic 35233. Heart rate is in the 60s and 70s, pulse ox 97% on 2 L nasal cannula GENERAL: Well-developed in no acute distress. HEENT: Head is normocephalic. Pupils are equal, round. Sclerae anicteric. Mucous membranes of the mouth are moist. Neck supple. No JVD or thyromegaly LUNGS: Respirations even and unlabored. Lungs essentially clear to auscultation bilaterally. HEART: Regular rate and rhythm. S1 and S2 heard. ABDOMEN: Soft. Nondistended. Nontender. EXTREMITIES: Normal range of motion. No clubbing or cyanosis. Peripheral pulses intact. No lower extremity edema NEUROLOGIC: Awake and alert. Oriented x 3. ASSESSMENT: Hypotension, chronic Generalized weakness and fatigue Anemia of chronic kidney disease and recent blood loss anemia Persistent atrial fibrillation Sick sinus syndrome with previous pacemaker implantation Hypertension, History end-stage renal disease on CAPD Hyponatremia Diabetes PLAN: Resume home medications except for torsemide Patient is off anticoagulation due to GI bleed No need to repeat echocardiogram Pacemaker was interrogated and found to be at [facility]. She will be scheduled for generator change tomorrow with Dr. Witt. Thank you kindly for this consultation Nurse practitioner note has been reviewed by physician. Signing provider agrees with the documented findings, assessment, and plan of care. Past Medical History Past Medical History: Atrial Fibrillation, COPD, Diabetes Mellitus, Dialysis, GERD/Reflux, Hyperlipidemia, Hypertension, Osteoarthritis (OA), Renal Disease, Sleep Apnea/CPAP/BIPAP, Thyroid Disorder Additional Past Medical History / Comment(s): O2 3L per nasal cannula. Dialysis MOWEFR. Cardiomyopathy. Gout. Constipation. 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 hemodialysis cath, Past Anesthesia/Blood Transfusion Reactions: No Reported Reaction Type of Cardiac Device: Permanent Pacemaker Device Placement Date:: 10/17/2012 Past Psychological History: No Psychological Hx Reported Smoking Status: Former smoker Past Alcohol Use History: None Reported Past Drug Use History: None Reported - Past Family History Father History Unknown: Yes Additional Family Medical History / Comment(s): "hardening of the arteries" Mother History Unknown: Yes Additional Family Medical History / Comment(s): "water in the lungs" at 95. Medications and Allergies Home Medications Medication Instructions Recorded Confirmed Type allopurinoL [Zyloprim] 300 mg PO DAILY 11/21/14 05/10/23 History Acetaminophen Tab [Tylenol] 650 mg PO BID 07/12/16 05/10/23 History Multivitamins, Thera [Multivitamin 1 tab PO DAILY 10/03/17 05/10/23 History (formulary)] Lovastatin [Altoprev] 40 mg PO HS 05/24/21 05/10/23 History Aspirin [Adult Low Dose Aspirin EC] 81 mg PO DAILY 03/29/22 05/10/23 History Lactulose 2 tsp PO DAILY 03/29/22 05/10/23 History Omeprazole 40 mg PO DAILY 03/29/22 05/10/23 History Torsemide [Demadex] 80 mg PO DAILY 03/29/22 05/10/23 History Ferrous Sulfate [Iron (65 MG 325 mg PO BID 02/14/23 05/10/23 History Elemental)] Midodrine HCl [ProAmatine] 10 mg PO QID 02/14/23 05/10/23 History glipiZIDE [Glucotrol] 10 mg PO AC-BID 02/14/23 05/10/23 History Sucralfate [Carafate] 1 gm PO BID 02/15/23 05/10/23 History Amiodarone [Cordarone] 400 mg PO DAILY 05/10/23 05/10/23 History Docusate [Colace] 100 mg PO BID 05/10/23 05/10/23 History Fludrocortisone [Florinef] 0.1 mg PO DAILY 05/10/23 05/10/23 History Potassium Chloride ER [K-Dur 20] 20 meq PO BID 05/10/23 05/10/23 History Allergies Allergy/AdvReac Type Severity Reaction Status Date / Time lisinopril AdvReac Mild Cough Verified 05/10/23 07:08 Physical Exam Vitals: Vital Signs Temp Pulse Resp BP Pulse Ox 05/10/23 11:00 68 18 93/57 97 05/10/23 10:00 69 18 77/48 97 05/10/23 09:00 70 18 86/52 98 05/10/23 08:00 71 18 100/56 98 05/10/23 06:00 74 18 96/57 97 05/09/23 22:23 97.4 F L 73 18 103/62 98 Intake and Output 05/09/23 05/10/23 05/10/23 22:59 06:59 14:59 Other: Weight 113.398 kg Results 05/11/23 05:29 05/11/23 05:29 Cardiac Enzymes 05/09/23 05/10/23 Range/Units 22:45 09:36 AST 18 19 (17-59) U/L CBC 05/09/23 05/10/23 Range/Units 22:45 09:36 WBC 13.8 H 13.4 H (3.8-10.6) k/uL RBC 3.00 L 2.96 L (4.30-5.90) m/uL Hgb 9.4 L 9.6 L (13.0-17.5) gm/dL Hct 29.4 L 30.2 L (39.0-53.0) % Plt Count 323 310 (150-450) k/uL Comprehensive Metabolic Panel 05/09/23 05/10/23 Range/Units 22:45 09:36 Sodium 129 L 128 L (137-145) mmol/L Potassium 3.8 4.5 (3.5-5.1) mmol/L Chloride 91 L 92 L (98-107) mmol/L Carbon Dioxide 27 25 (22-30) mmol/L BUN 56 H 61 H (9-20) mg/dL Creatinine 3.55 H 3.77 H (0.66-1.25) mg/dL Glucose 132 H 61 L (74-99) mg/dL Calcium 8.0 L 8.2 L (8.4-10.2) mg/dL AST 18 19 (17-59) U/L ALT 17 17 (4-49) U/L Alkaline Phosphatase 146 H 124 (38-126) U/L Total Protein 5.6 L 5.7 L (6.3-8.2) g/dL Albumin 2.8 L 2.8 L (3.5-5.0) g/dL Current Medications Generic Name Dose Route Start Last Admin Trade Name Freq PRN Reason Stop Dose Admin Acetaminophen 650 mg 10/19/23 21:00 Acetaminophen Tab 325 Mg Tab PO BID [facility] Al Hydroxide/Mg Hydroxide 15 ml 05/10/23 09:31 Mag Hydrox/Al Hydrox/Simeth 30 Ml Cup PO Q6HR PRN Indigestion Allopurinol 300 mg 05/11/23 09:00 Allopurinol 300 Mg Tab PO DAILY [facility] Amiodarone HCl 400 mg 05/11/23 09:00 Amiodarone 200 Mg Tab PO DAILY [facility] Aspirin 81 mg 05/11/23 09:00 Aspirin 81 Mg PO DAILY [facility] Atorvastatin Calcium 10 mg 05/10/23 21:00 Atorvastatin 10 Mg Tab PO HS [facility] Dextrose/Water 25 ml 05/10/23 09:30 Dextrose 50% Syringe 50 Ml IVP PER PROTOCOL PRN Hypoglycemia Protocol Dextrose/Water 50 ml 05/10/23 09:30 Dextrose 50% Syringe 50 Ml IVP PER PROTOCOL PRN Hypoglycemia Protocol Docusate Sodium 100 mg 05/10/23 21:00 Docusate 100 Mg Cap PO BID [facility] Ferrous Sulfate 325 mg 05/10/23 21:00 Ferrous Sulfate 325 Mg Tab PO BID [facility] Fludrocortisone Acetate 0.1 mg 05/10/23 12:30 Fludrocortisone 0.1 Mg Tab PO DAILY [facility] Insulin Aspart 0 unit 05/10/23 12:30 05/10/23 12:14 Insulin Aspart (Novolog) 100 Unit/Ml Vial SQ Not Given ACHS [facility] Protocol Lactulose 6.7 gm 05/11/23 09:00 Lactulose 20 Gm/30 Ml Cup PO DAILY [facility] Melatonin 3 mg 05/10/23 09:31 Melatonin 3 Mg Tablet PO HS PRN Insomnia Midodrine 10 mg 05/10/23 10:45 05/10/23 10:33 Midodrine 5 Mg Tab PO 10 mg ACHS [facility] Administration Multivitamins 1 each 05/10/23 10:00 05/10/23 10:33 Multivitamins, Thera 1 Each Tab PO 1 each DAILY [facility] Administration Naloxone HCl 0.2 mg 05/10/23 09:31 Naloxone 0.4 Mg/Ml 1 Ml Vial IV Q2M PRN Opioid Reversal Ondansetron HCl 4 mg 05/10/23 09:31 Ondansetron 4 Mg/2 Ml Vial IVP Q8HR PRN Nausea And Vomiting Pantoprazole Sodium 40 mg 05/11/23 07:30 Pantoprazole 40 Mg Tablet PO AC-BRKFST [facility] Potassium Chloride 20 meq 05/10/23 21:00 Potassium Chloride Er 20 Meq Tab.Er PO BID [facility] Sucralfate 1 gm 05/10/23 21:00 Sucralfate 1 Gm Tab PO BID [facility] Torsemide 80 mg 05/10/23 10:00 05/10/23 10:31 Torsemide 20 Mg Tab PO Not Given DAILY [facility] Intake and Output 05/09/23 05/10/23 05/10/23 22:59 06:59 14:59 Other: Weight 113.398 kg 05/10/23 09:36 05/10/23 09:36
[2023-05-10] MEDS ORDERED: glipiZIDE 10 MG TAB PO SCH (17:30)
[2023-05-10] MEDS: DIALYSIS (PERIT 2.5%) 2,500 ML 62.5 G/2,500 ML BAG INTRAPERIT SCH ×2 (17:48→23:34)
[2023-05-10 18:47] LABS: Glucose,Whole Blood 181 mg/dL (70-110)
[2023-05-10] MEDS: SUCRALFATE 1 GM TAB PO SCH (20:05)
[2023-05-10] MEDS: ACETAMINOPHEN TAB 325 MG TAB PO SCH (20:05)
[2023-05-10] MEDS: DOCUSATE 100 MG CAP PO SCH (20:05)
[2023-05-10] MEDS: FERROUS SULFATE 325 MG TAB PO SCH (20:05)
[2023-05-10] MEDS: POTASSIUM CHLORIDE ER 20 MEQ TAB.ER PO SCH (20:05)
[2023-05-10] MEDS: ATORVASTATIN 10 MG TAB PO SCH (20:05)
[2023-05-10 20:16] LABS: Glucose,Whole Blood 179 mg/dL (70-110)
[2023-05-11 00:20] LABS: % Iron Saturation 6.33 (15.00-50.00)
[2023-05-11] MEDS: DIALYSIS (PERIT 2.5%) 2,500 ML 62.5 G/2,500 ML BAG INTRAPERIT SCH ×3 (05:18→18:32)
[2023-05-11] MEDS ORDERED: VANCOMYCIN 1,750 MG in SODIUM CHLORIDE 0.9% 500 ML 500 ML IVPB ONE (06:14)
[2023-05-11] MEDS: INSULIN ASPART (NovoLOG) 100 UNIT/ML VIAL SQ SCH ×4 (06:20→21:20)
[2023-05-11 06:21] LABS: Glucose,Whole Blood 100 mg/dL (70-110)
[2023-05-11] MEDS: PANTOPRAZOLE 40 MG TABLET PO SCH (06:29)
[2023-05-11] MEDS ORDERED: ceFAZolin 1 GM in SODIUM CHLORIDE 0.9% IRRIG BTL 250 ML IRRIGATION PRN (07:00)
[2023-05-11 08:59] LABS: Basophils # (A) 0.03 X 10*3/uL (0.00-0.10); Basophils % (A) 0.3 %; Eosinophils # (A) 0.21 X 10*3/uL (0.04-0.35); Eosinophils % (A) 2.1 %; HCT 25.7 % (39.6-50.0); HGB 8.5 d/dL (13.0-17.0); Lymphocytes # (A) 1.21 X 10*3/uL (0.90-5.00); Lymphocytes % (A) 11.9 %; MCH 31.5 pg (27.0-32.0); MCHC 33.1 d/dL (32.0-37.0); MCV 95.2 FL (80.0-97.0); Mean Platelet Volume 9.4 FL (9.5-12.2); Monocytes % (A) 4.9 %; NRBC Per 100 WBC 0 X 10*3/uL (0.00-0.01); Neutrophils # (A) 8.11 X 10*3/uL (1.80-7.70); Neutrophils % (A) 80.1 %; Platelet Count 287 X 10*3/uL (140-440); RDW 17.3 % (11.5-14.5); WBC 10.13 X 10*3/uL (4.50-10.00)
[2023-05-11] MEDS ORDERED: AMIODARONE 200 MG TAB PO SCH (09:00)
[2023-05-11 09:18] LABS: ALT 12 U/L (10-49); AST 8 U/L (14-35); Albumin 2.7 d/dL (3.8-4.9); Albumin/Globulin Ratio 1.08 Ratio (1.60-3.17); Alkaline Phosphatase 124 U/L (41-126); BUN/Creat Ratio 14.45 Ratio (12.00-20.00); Blood Urea Nitrogen 63.6 mg/dL (9.0-27.0); Calcium 7.7 mg/dL (8.7-10.3); Carbon Dioxide 21.9 mmol/L (21.6-31.8); Chloride 90 mmol/L (96-109); Globulin 2.5 d/dL (1.6-3.3); Glucose 103 mg/dL (70-110); Phosphorus 4.7 mg/dL (2.4-5.1); Potassium 4.2 mmol/L (3.5-5.5); Sodium 128 mmol/L (135-145); Total Bilirubin 0.2 mg/dL (0.3-1.2); Total Protein 5.2 d/dL (6.2-8.2)
[2023-05-11] MEDS ORDERED: LIDOCAINE 1% INJ 10MG/ML (20 ML MDV) ONE (09:18)
[2023-05-11] MEDS ORDERED: LIDOCAINE 1% INJ 10MG/ML (20 ML MDV) SQ ONE ×2 (10:42→10:45)
[2023-05-11] MEDS ORDERED: MIDAZOLAM 2 MG/2 ML VIAL IVP ONE (10:45)
[2023-05-11] MEDS ORDERED: ACETAMINOPHEN TAB 325 MG TAB PO PRN (11:16)
--- NOTE | 2023-05-11 11:16 | P.EPPROC ---
- EP Procedure Note Electrophysiology Procedure Note: Diagnosis Symptomatic bradycardia, underlying complete heart block Dual chamber pacemaker at [facility], normal battery depletion Procedure Dual-chamber pacemaker generator change Details Patient was brought to the EP lab in a fasting state. Written informed consent was obtained prior to the procedure. Conscious sedation provided. IV antibiotics administered. Local anesthesia administered. A 4 cm incision made in the pectoral area. Subfascial pocket made. Partial capsulectomy performed Atrial lead position the right atrial appendage. [employer] leads model #4087, serial #[id number] P waves 1.3 mV, pacing impedance 399 ohms and pacing threshold 1 warted 0.4 ms RV lead position in the RV septum. [employer] model #40 88, serial #[id number], R waves 4.5 mV pacing impedance 437 ohms and pacing threshold 100.4 ms Device product safety administrator: [employer] device explanted [employer] MACIEL TAVERA implanted Dual-chamber pacemaker device connected to the leads and placed in the subfascial pocket. Antibiotic pouch placed Patient received IV Vancomycin this morning and then intraoperatively Was Given Patient tolerated the procedure well without acute complications Pacemaker programming DDDR 60-1:30 with paced AV delay of 240 ms
[2023-05-11 12:29] LABS: Glucose,Whole Blood 81 mg/dL (70-110)
[2023-05-11] MEDS: DOCUSATE 100 MG CAP PO SCH ×2 (13:02→20:04)
[2023-05-11] MEDS: FERROUS SULFATE 325 MG TAB PO SCH ×2 (13:02→20:04)
[2023-05-11] MEDS: POTASSIUM CHLORIDE ER 20 MEQ TAB.ER PO SCH ×2 (13:02→20:04)
[2023-05-11] MEDS: allopurinoL 300 MG TAB PO SCH (13:02)
[2023-05-11] MEDS: ASPIRIN 81 MG PO SCH (13:02)
[2023-05-11] MEDS: MULTIVITAMINS, THERA 1 EACH TAB PO SCH (13:02)
[2023-05-11] MEDS: SUCRALFATE 1 GM TAB PO SCH ×2 (13:02→20:04)
[2023-05-11] MEDS: FLUDROCORTISONE 0.1 MG TAB PO SCH (13:03)
[2023-05-11] MEDS: LACTULOSE 20 GM/30 ML CUP PO SCH (13:03)
[2023-05-11] MEDS: MIDODRINE 5 MG TAB PO SCH ×4 (13:03→21:29)
--- NOTE | 2023-05-11 13:19 | P.PN ---
Subjective Progress Note Date: 05/11/23 patient 77-year-old gentleman with past medical history significant for atrial fibrillation, hypertension, diabetes mellitus presented to the ER because of generalized body aches. Patient was recently discharged from [facility] after being admitted there for GI bleed, workup was negative for any active bleeding, his anticoagulation was discontinued. Patient stated that he has been been having generalized body aches for the last 2 days. Denies any fever or chills at home. Denies any nausea or vomiting. Denies any burning urination or increased frequency of urination. Denies any chest pain or shortness of breath. Did not notice any blood in his stools, denied any hematemesis. Because of generalized body aches, patient came to the ER Initial lab work done in the ER showed WBC 13.8, hemoglobin 9.4, platelet count 323, sodium 129, potassium 3.8, BUN 56, creatinine 3.55 Initial workup in the ER was benign, ER physician talked to the patient regarding discharge but the patient at this time felt that he was not equipped to take care of himself at home and does not feel safe there. Patient was admitted to medicine service 05/11. Patient seen and examined. Patient had pacemaker generator change this morning with EP. Postoperatively patient is doing well. REVIEW OF SYSTEMS: CONSTITUTIONAL: No fever, no malaise,. CARDIOVASCULAR: No chest pain, no palpitations, no syncope. PULMONARY: No shortness of breath, no cough, GASTROINTESTINAL: No diarrhea, no nausea, no vomiting, no abdominal pain. NEUROLOGICAL: No headaches, no weakness, PHYSICAL EXAMINATION: GENERAL: The patient is alert and oriented x3, not in any acute distress. Well developed, well nourished. HEENT: Pupils are round and equally reacting to light. EOMI. No scleral icterus. No conjunctival pallor. Normocephalic, atraumatic. No pharyngeal erythema. No thyromegaly. CARDIOVASCULAR: S1 and S2 present. No murmurs, rubs, or gallops. PULMONARY: Chest is clear to auscultation, no wheezing or crackles. ABDOMEN: Soft, nontender, nondistended, normoactive bowel sounds. No palpable o rganomegaly. MUSCULOSKELETAL: No joint swelling or deformity. EXTREMITIES: No cyanosis, clubbing, or pedal edema. NEUROLOGICAL: Gross neurological examination did not reveal any focal deficits. SKIN: No rashes. Assessment and plan Generalized weakness Status post Dual-chamber pacemaker generator change Hyponatremia End-stage renal disease on peritoneal dialysis Atrial fibrillation Hypertension Diabetes mellitus COPD Hypothyroid Monitor vital signs Monitor CBC Monitor CMP Trend troponins. Continue antiemetics Continue peritoneal Dialysis per nephrology. Patient had pacemaker generator change per EP PT and OT following Labs and medication were reviewed.. Continue same treatment. Continue with symptomatic treatment. Resume home medication. Monitor labs and vitals. DVT and GI prophylaxis. Further recommendations as per clinical course of the patient Dictation was produced using [employer] dictation software. please excuse any grammatical, word or spelling errors. Objective - Vital Signs Vital signs: Vital Signs Temp 97.6 F 05/11/23 07:00 Pulse 72 05/11/23 07:00 Resp 16 05/11/23 08:00 BP 134/88 05/11/23 07:00 Pulse Ox 95 05/11/23 07:00 FiO2 Intake & Output 05/10/23 05/11/23 05/11/23 18:59 06:59 18:59 Intake Total 484 50 Balance 484 50 Intake: IV 50 Oral 484 Other: # Voids 2 1 # Bowel Movements 2 1 - Labs CBC & Chem 7: 05/11/23 05:29 05/11/23 05:29 Labs: Abnormal Lab Results - Last 24 Hours (Table) 05/10/23 05/10/23 05/10/23 Range/Units 09:36 18:46 20:15 WBC (4.50-10.00) X 10*3/uL RBC (4.40-5.60) X 10*6/uL Hgb (13.0-17.0) d/dL Hct (39.6-50.0) % RDW (11.5-14.5) % MPV (9.5-12.2) FL Neutrophils # (1.80-7.70) X 10*3/uL Sodium (135-145) mmol/L Chloride (96-109) mmol/L Anion Gap (4.00-12.00) mmol/L BUN (9.0-27.0) mg/dL Creatinine (0.6-1.5) mg/dL Est GFR (CKD-EPI) (>=60) POC Glucose (mg/dL) 181 H 179 H (70-110) mg/dL Hemoglobin A1c (<=6.0) % Calcium (8.7-10.3) mg/dL Iron 20 L (65-175) UG/DL % Saturation 6.33 L (15.00-50.00) Ferritin 1114.0 H (22.0-322.0) ng/mL Total Bilirubin (0.3-1.2) mg/dL AST (14-35) U/L Total Protein (6.2-8.2) d/dL Albumin (3.8-4.9) d/dL Albumin/Globulin Ratio (1.60-3.17) Ratio 05/11/23 05/11/23 05/11/23 Range/Units 05:29 05:29 05:29 WBC 10.13 H (4.50-10.00) X 10*3/uL RBC 2.70 L (4.40-5.60) X 10*6/uL Hgb 8.5 L (13.0-17.0) d/dL Hct 25.7 L (39.6-50.0) % RDW 17.3 H (11.5-14.5) % MPV 9.4 L (9.5-12.2) FL Neutrophils # 8.11 H (1.80-7.70) X 10*3/uL Sodium 128 L (135-145) mmol/L Chloride 90 L (96-109) mmol/L Anion Gap 16.10 H (4.00-12.00) mmol/L BUN 63.6 H (9.0-27.0) mg/dL Creatinine 4.4 H (0.6-1.5) mg/dL Est GFR (CKD-EPI) 13 L (>=60) POC Glucose (mg/dL) (70-110) mg/dL Hemoglobin A1c 6.9 H (<=6.0) % Calcium 7.7 L (8.7-10.3) mg/dL Iron (65-175) UG/DL % Saturation (15.00-50.00) Ferritin (22.0-322.0) ng/mL Total Bilirubin 0.2 L (0.3-1.2) mg/dL AST 8 L (14-35) U/L Total Protein 5.2 L (6.2-8.2) d/dL Albumin 2.7 L (3.8-4.9) d/dL Albumin/Globulin Ratio 1.08 L (1.60-3.17) Ratio
[2023-05-11] MEDS: ACETAMINOPHEN TAB 325 MG TAB PO SCH ×2 (13:55→20:05)
[2023-05-11 17:24] LABS: Glucose,Whole Blood 239 mg/dL (70-110)
[2023-05-11] MEDS: ATORVASTATIN 10 MG TAB PO SCH (20:04)
[2023-05-11 21:10] LABS: Glucose,Whole Blood 150 mg/dL (70-110)
[2023-05-12] MEDS: DIALYSIS (PERIT 2.5%) 2,500 ML 62.5 G/2,500 ML BAG INTRAPERIT SCH ×3 (01:12→14:30)
[2023-05-12 06:22] LABS: Glucose,Whole Blood 155 mg/dL (70-110)
[2023-05-12] MEDS: PANTOPRAZOLE 40 MG TABLET PO SCH (06:33)
[2023-05-12] MEDS: INSULIN ASPART (NovoLOG) 100 UNIT/ML VIAL SQ SCH ×2 (06:33→13:10)
[2023-05-12 07:48] VITALS: RESP 16
--- NOTE | 2023-05-12 07:54 | P.CNPUL ---
History of Present Illness Consult date: 05/12/23 Requesting physician: Callum Hester Reason for consult: dyspnea Chief complaint: Chest pain, shortness of breath. History of present illness: Pulmonary consult dated 05/12/2023. 77-year-old male who presented to the emergency department on May 09 complaining of chest pain. The patient apparently was recently discharged from a [facility] facility. He apparently was complaining of pain, throughout his whole body, but more so in his chest. He apparently was brought to the ER, by EMS. I was asked to see him in consultation. I believe I was asked to see him for shortness of breath. I had seen him back in September 2021, but he never made it to my office. He has a history of end-stage renal disease, currently on use ambulatory peritoneal dialysis, CHF, chronic anemia, atrial f ibrillation, diabetes, questionable COPD, hyperlipidemia, sleep apnea, on CPAP, and gout currently, the patient's not having any shortness of breath. He did have the generator change on his pacemaker. That was done yesterday. I told him that I would be happy to see him in the office, after discharge. Again the last time I saw him was in the hospital, September 2021. White count 10.13, hemoglobin 8.5, hematocrit 25.7, and platelet count normal. Sodium 128, potassium 4.2, chlorides 90, CO2 22, BUN 64, creatinine 4.4. The rest of the labs are reviewed. No chest x-ray on this admission. Review of Systems REVIEW OF SYSTEMS: CONSTITUTIONAL: [Negative.] NEUROLOGIC: [ Negative.] HEENT: [ Negative.] CARDIAC: Chest pain. PULMONARY: Shortness of breath. GI: [Negative.] : [Negative.] RHEUMATOLOGIC: [ Negative.] IMMUNOLOGIC: [ Negative.] ENDOCRINE: [Negative. ] DERMATOLOGIC: [Negative.] Past Medical History Past Medical History: Atrial Fibrillation, COPD, Diabetes Mellitus, Dialysis, GERD/Reflux, Hyperlipidemia, Hypertension, Osteoarthritis (OA), Renal Disease, Sleep Apnea/CPAP/BIPAP, Thyroid Disorder Additional Past Medical History / Comment(s): O2 3L per nasal cannula. Dialysis MOWEFR. Cardiomyopathy. Gout. Constipation. 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 hemodialysis cath, Past Anesthesia/Blood Transfusion Reactions: No Reported Reaction Type of Cardiac Device: Permanent Pacemaker Device Placement Date:: 10/17/2012 Past Psychological History: No Psychological Hx Reported Smoking Status: Former smoker Past Alcohol Use History: None Reported Past Drug Use History: None Reported - Past Family History Father History Unknown: Yes Additional Family Medical History / Comment(s): "hardening of the arteries" Mother History Unknown: Yes Additional Family Medical History / Comment(s): "water in the lungs" at 95. Medications and Allergies Home Medications Medication Instructions Recorded Confirmed Type allopurinoL [Zyloprim] 300 mg PO DAILY 11/21/14 05/10/23 History Acetaminophen Tab [Tylenol] 650 mg PO BID 07/12/16 05/10/23 History Multivitamins, Thera [Multivitamin 1 tab PO DAILY 10/03/17 05/10/23 History (formulary)] Lovastatin [Altoprev] 40 mg PO HS 05/24/21 05/10/23 History Aspirin [Adult Low Dose Aspirin EC] 81 mg PO DAILY 03/29/22 05/10/23 History Lactulose 2 tsp PO DAILY 03/29/22 05/10/23 History Omeprazole 40 mg PO DAILY 03/29/22 05/10/23 History Torsemide [Demadex] 80 mg PO DAILY 03/29/22 05/10/23 History Ferrous Sulfate [Iron (65 MG 325 mg PO BID 02/14/23 05/10/23 History Elemental)] Midodrine HCl [ProAmatine] 10 mg PO QID 02/14/23 05/10/23 History glipiZIDE [Glucotrol] 10 mg PO AC-BID 02/14/23 05/10/23 History Sucralfate [Carafate] 1 gm PO BID 02/15/23 05/10/23 History Amiodarone [Cordarone] 400 mg PO DAILY 05/10/23 05/10/23 History Docusate [Colace] 100 mg PO BID 05/10/23 05/10/23 History Fludrocortisone [Florinef] 0.1 mg PO DAILY 05/10/23 05/10/23 History Potassium Chloride ER [K-Dur 20] 20 meq PO BID 05/10/23 05/10/23 History Allergies Allergy/AdvReac Type Severity Reaction Status Date / Time lisinopril AdvReac Mild Cough Verified 05/10/23 07:08 Physical Exam Osteopathic Statement: *. No significant issues noted on an osteopathic structural exam other than those noted in the History and Physical/Consult. Vitals: Vital Signs Temp Pulse Pulse Resp BP BP Pulse Ox 05/12/23 07:30 97.9 F 60 16 122/78 99 05/12/23 02:35 97.9 F 71 18 98/64 97 05/12/23 02:00 98.2 F 57 L 17 105/65 100 05/12/23 01:14 97.9 F 71 18 98/64 97 05/11/23 20:00 97.3 F L 73 17 97/55 96 05/11/23 14:00 16 05/11/23 12:50 97.7 F 18 110/70 97 05/11/23 12:02 97.7 F 17 98/63 95 05/11/23 11:47 97.5 F L 18 106/68 97 05/11/23 11:32 97.5 F L 17 102/62 95 05/11/23 08:00 16 Intake and Output 05/11/23 05/12/23 05/12/23 22:59 06:59 14:59 Intake Total 240 Balance 240 Intake: Oral 240 Other: # Voids 1 1 # Bowel Movements 1 1 No acute distress, oriented 3. No respiratory distress. The patient's currently on 3 L of oxygen. HEENT examination is grossly unremarkable. Mucous membranes are moist. No oral lesions. Neck supple. Full range of motion. No adenopathy thyromegaly or neck vein distention. Cardiovascular examination reveals regular rhythm rate. S1-S2 normal. No S3 or S4. No discernible murmur noted. Heart sounds are distant. Heart rate 60 bpm. Lungs reveal clear breath sounds. Breath sounds are equal bilaterally. No adventitious lung sounds including wheezes rhonchi or crackles. Abdomen soft bowel sounds are heard. No masses or tenderness. Extremities are intact. No cyanosis or clubbing. Trace lower extremity edema is present. Skin is without rash or lesion. Neurologic examination is brief but nonfocal. Results - Laboratory Findings CBC and BMP: 05/11/23 05:29 05/11/23 05:29 Abnormal lab findings: Abnormal Labs 05/09/23 05/09/23 05/10/23 22:45 22:45 09:36 WBC 13.8 H 13.4 H RBC 3.00 L 2.96 L Hgb 9.4 L 9.6 L Hct 29.4 L 30.2 L MCV 102.0 H RDW 18.8 H 18.0 H MPV Neutrophils # 12.2 H 11.7 H Sodium 129 L Chloride 91 L Anion Gap BUN 56 H Creatinine 3.55 H Est GFR (CKD-EPI) Glucose 132 H POC Glucose (mg/dL) Hemoglobin A1c Calcium 8.0 L Iron % Saturation Ferritin Total Bilirubin AST Alkaline Phosphatase 146 H Creatine Kinase 25 L Troponin I Total Protein 5.6 L Albumin 2.8 L Albumin/Globulin Ratio 05/10/23 05/10/23 05/10/23 09:36 09:36 09:36 WBC RBC Hgb Hct MCV RDW MPV Neutrophils # Sodium 128 L Chloride 92 L Anion Gap BUN 61 H Creatinine 3.77 H Est GFR (CKD-EPI) Glucose 61 L POC Glucose (mg/dL) Hemoglobin A1c Calcium 8.2 L Iron 20 L % Saturation 6.33 L Ferritin 1114.0 H Total Bilirubin AST Alkaline Phosphatase Creatine Kinase Troponin I 0.076 H* Total Protein 5.7 L Albumin 2.8 L Albumin/Globulin Ratio 05/10/23 05/10/23 05/10/23 11:27 12:13 18:46 WBC RBC Hgb Hct MCV RDW MPV Neutrophils # Sodium Chloride Anion Gap BUN Creatinine Est GFR (CKD-EPI) Glucose POC Glucose (mg/dL) 118 H 181 H Hemoglobin A1c Calcium Iron % Saturation Ferritin Total Bilirubin AST Alkaline Phosphatase Creatine Kinase Troponin I 0.070 H* Total Protein Albumin Albumin/Globulin Ratio 05/10/23 05/11/23 05/11/23 20:15 05:29 05:29 WBC RBC Hgb Hct MCV RDW MPV Neutrophils # Sodium 128 L Chloride 90 L Anion Gap 16.10 H BUN 63.6 H Creatinine 4.4 H Est GFR (CKD-EPI) 13 L Glucose POC Glucose (mg/dL) 179 H Hemoglobin A1c 6.9 H Calcium 7.7 L Iron % Saturation Ferritin Total Bilirubin 0.2 L AST 8 L Alkaline Phosphatase Creatine Kinase Troponin I Total Protein 5.2 L Albumin 2.7 L Albumin/Globulin Ratio 1.08 L 05/11/23 05/11/23 05/11/23 05:29 17:23 21:07 WBC 10.13 H RBC 2.70 L Hgb 8.5 L Hct 25.7 L MCV RDW 17.3 H MPV 9.4 L Neutrophils # 8.11 H Sodium Chloride Anion Gap BUN Creatinine Est GFR (CKD-EPI) Glucose POC Glucose (mg/dL) 239 H 150 H Hemoglobin A1c Calcium Iron % Saturation Ferritin Total Bilirubin AST Alkaline Phosphatase Creatine Kinase Troponin I Total Protein Albumin Albumin/Globulin Ratio 05/12/23 06:21 WBC RBC Hgb Hct MCV RDW MPV Neutrophils # Sodium Chloride Anion Gap BUN Creatinine Est GFR (CKD-EPI) Glucose POC Glucose (mg/dL) 155 H Hemoglobin A1c Calcium Iron % Saturation Ferritin Total Bilirubin AST Alkaline Phosphatase Creatine Kinase Troponin I Total Protein Albumin Albumin/Globulin Ratio Assessment and Plan Assessment: Chest pain, and shortness of breath, of unclear etiology. It's not clear that the patient has any underlying chronic lung disease. Status post pacemaker generator change, 05/11/2023. History of end-stage renal disease, currently on CAPD. CHF. History of chronic anemia. History of atrial fibrillation. History of diabetes mellitus. History of hyperlipidemia. Obstructive sleep apnea syndrome, currently on CPAP. Gout. Plan: Plan dated 05/12/2023. The patient is discharged in the next day or so. I told might be happy to see me in the office, to determine whether or not there is any evidence of intrinsic pulmonary disease. He smoked remotely, many years back. He denies a history of asthma or COPD. He is using oxygen at 3 L. He does have a history of obstructive sleep apnea syndrome, and uses CPAP. I told him he would need complete pulmonary function test in the office. Additional recommendations and suggestions are forthcoming. Time with Patient: Greater than 30
[2023-05-12] MEDS: LACTULOSE 20 GM/30 ML CUP PO SCH (08:36)
[2023-05-12] MEDS: ACETAMINOPHEN TAB 325 MG TAB PO SCH (08:36)
[2023-05-12] MEDS: FERROUS SULFATE 325 MG TAB PO SCH (08:36)
[2023-05-12] MEDS: POTASSIUM CHLORIDE ER 20 MEQ TAB.ER PO SCH (08:37)
[2023-05-12] MEDS: FLUDROCORTISONE 0.1 MG TAB PO SCH (08:37)
[2023-05-12] MEDS: SUCRALFATE 1 GM TAB PO SCH (08:37)
[2023-05-12] MEDS: DOCUSATE 100 MG CAP PO SCH (08:37)
[2023-05-12] MEDS: ASPIRIN 81 MG PO SCH (08:37)
[2023-05-12] MEDS: MULTIVITAMINS, THERA 1 EACH TAB PO SCH (08:37)
[2023-05-12] MEDS: allopurinoL 300 MG TAB PO SCH (08:37)
[2023-05-12] MEDS: MIDODRINE 5 MG TAB PO SCH ×2 (08:38→14:43)
[2023-05-12] MEDS ORDERED: AMIODARONE 200 MG TAB PO SCH (09:00)
[2023-05-12] MEDS ORDERED: SODIUM FERRIC GLUCONAT-SUCROSE 125 MG in SODIUM CHLORIDE 0.9% 100 ML IVPB SCH (10:00)
[2023-05-12 12:08] LABS: Glucose,Whole Blood 229 mg/dL (70-110)
--- NOTE | 2023-05-12 12:35 | P.PN ---
Subjective Patient is seen for follow-up for end-stage renal disease. Status post pacemaker change yesterday. Patient is considering switching to hemodialysis as he states that it is getting harder for him and his to manage at home with the large bags for the exchanges. Tolerating PD fairly well here. UF of 200-300 ML with 2.5% solution. Objective - Vital Signs Vital signs: Vital Signs Temp 97.9 F 05/12/23 07:30 Pulse 60 05/12/23 08:00 Resp 16 05/12/23 08:00 BP 122/78 05/12/23 07:30 Pulse Ox 99 05/12/23 07:30 FiO2 Intake & Output 05/11/23 05/12/23 05/12/23 18:59 06:59 18:59 Intake Total 290 Balance 290 Intake: IV 50 Oral 240 Other: # Voids 1 1 # Bowel Movements 1 1 - Exam Awake, comfortable, no acute distress Examination of the heart S1 and S2 Examination of the lungs bilateral breath sounds are Abdomen is soft nontender Examination lower ex Mittie shows edema 2+ bilaterally with chronic skin changes. ELECTION WATCHER exam grossly intact - Labs CBC & Chem 7: 05/11/23 05:29 05/11/23 05:29 Labs: Abnormal Lab Results - Last 24 Hours (Table) 05/11/23 05/11/23 05/12/23 Range/Units 17:23 21:07 06:21 POC Glucose (mg/dL) 239 H 150 H 155 H (70-110) mg/dL 05/12/23 Range/Units 12:07 POC Glucose (mg/dL) 229 H (70-110) mg/dL Assessment and Plan Assessment: 1. End-stage renal disease maintained on peritoneal dialysis. 2. Generalized weakness and debility. 3. Anemia of chronic kidney disease. Rule out iron deficiency. 4. Hyponatremia secondary to chronic kidney disease. 5. Chronic hypotension maintained on midodrine and Florinef. 6. Diabetes mellitus. 7. Status post pacemaker generator change Plan: Okay to discharge from nephrology standpoint. Follow-up as outpatient.
--- NOTE | 2023-05-12 12:58 | P.DS ---
Providers Date of admission: 05/10/23 14:24 Expected date of discharge: 05/12/23 Attending physician: Callum Hester Consults: 05/10/23 08:12 Consult Physician Routine Consulting Provider: Bj Weller Consult Reason/Comments: Peritoneal Dialysis Do you want consulting provider notified?: Yes Placement Type Exists?: Yes 05/10/23 11:44 Consult Physician Routine Consulting Provider: Tacos Marcos Consult Reason/Comments: oxygen dependent, patient request Do you want consulting provider notified?: Yes Consult Physician Routine Consulting Provider: Rusty Witt Consult Reason/Comments: low blood pressure Do you want consulting provider notified?: Yes Primary care physician: Nayan Georges Hospital Course: Discharge diagnoses; Generalized weakness Status post Dual-chamber pacemaker generator change Hyponatremia End-stage renal disease on peritoneal dialysis Atrial fibrillation Hypertension Diabetes mellitus COPD Hypothyroid Hospital course; 77-year-old gentleman with past medical history significant for atrial fibrillation, hypertension, diabetes mellitus presented to the ER because of generalized body aches. Patient was recently discharged from [facility] after being admitted there for GI bleed, workup was negative for any active bleeding, his anticoagulation was discontinued. Patient stated that he has been been having generalized body aches for the last 2 days. Denies any fever or chills at home. Denies any nausea or vomiting. Denies any burning urination or increased frequency of urination. Denies any chest pain or shortness of breath. Did not notice any blood in his stools, denied any hematemesis. Because of generalized body aches, patient came to the ER Initial lab work done in the ER showed WBC 13.8, hemoglobin 9.4, platelet count 323, sodium 129, potassium 3.8, BUN 56, creatinine 3.55 Initial workup in the ER was benign, ER physician talked to the patient regarding discharge but the patient at this time felt that he was not equipped to take care of himself at home and does not feel safe there. Patient was admitted to medicine service 05/11. Patient seen and examined. Patient had pacemaker generator change this morning with EP. Postoperatively patient is doing well. 05/12. Patient seen and examined. Patient seen by pulmonology, they recommended outpatient follow-up for workup for intrinsic lung disease. Cardiology cleared the patient for discharge PHYSICAL EXAMINATION: GENERAL: The patient is alert and oriented x3, not in any acute distress. Well developed, well nourished. HEENT: Pupils are round and equally reacting to light. EOMI. No scleral icterus. No conjunctival pallor. Normocephalic, atraumatic. No pharyngeal erythema. No thyromegaly. CARDIOVASCULAR: S1 and S2 present. No murmurs, rubs, or gallops. PULMONARY: Chest is clear to auscultation, no wheezing or crackles. ABDOMEN: Soft, nontender, nondistended, normoactive bowel sounds. No palpable organomegaly. MUSCULOSKELETAL: No joint swelling or deformity. EXTREMITIES: No cyanosis, clubbing, or pedal edema. NEUROLOGICAL: Gross neurological examination did not reveal any focal deficits. SKIN: No rashes. Dictation was produced using [employer] dictation software. please excuse any gra mmatical, word or spelling errors. Patient Condition at Discharge: Fair Plan - Discharge Summary New Discharge Prescriptions: New Ferrous Sulfate [Feosol] 325 mg PO DAILY 30 Days #60 tab Continue allopurinoL [Zyloprim] 300 mg PO DAILY Acetaminophen Tab [Tylenol] 650 mg PO BID Multivitamins, Thera [Multivitamin (formulary)] 1 tab PO DAILY Lovastatin [Altoprev] 40 mg PO HS Aspirin [Adult Low Dose Aspirin EC] 81 mg PO DAILY glipiZIDE [Glucotrol] 10 mg PO AC-BID Fludrocortisone [Florinef] 0.1 mg PO DAILY Docusate [Colace] 100 mg PO BID Amiodarone [Cordarone] 400 mg PO DAILY Lactulose 2 tsp PO DAILY Torsemide [Demadex] 80 mg PO DAILY Omeprazole 40 mg PO DAILY Ferrous Sulfate [Iron (65 MG Elemental)] 325 mg PO BID Midodrine HCl [ProAmatine] 10 mg PO QID Sucralfate [Carafate] 1 gm PO BID Potassium Chloride ER [K-Dur 20] 20 meq PO BID Discharge Medication List allopurinoL [Zyloprim] 300 mg PO DAILY 11/21/14 [History] Acetaminophen Tab [Tylenol] 650 mg PO BID 07/12/16 [History] Multivitamins, Thera [Multivitamin (formulary)] 1 tab PO DAILY 10/03/17 [History] Lovastatin [Altoprev] 40 mg PO HS 05/24/21 [History] Aspirin [Adult Low Dose Aspirin EC] 81 mg PO DAILY 03/29/22 [History] Lactulose 2 tsp PO DAILY 03/29/22 [History] Omeprazole 40 mg PO DAILY 03/29/22 [History] Torsemide [Demadex] 80 mg PO DAILY 03/29/22 [History] Ferrous Sulfate [Iron (65 MG Elemental)] 325 mg PO BID 02/14/23 [History] Midodrine HCl [ProAmatine] 10 mg PO QID 02/14/23 [History] glipiZIDE [Glucotrol] 10 mg PO AC-BID 02/14/23 [History] Sucralfate [Carafate] 1 gm PO BID 02/15/23 [History] Amiodarone [Cordarone] 400 mg PO DAILY 05/10/23 [History] Docusate [Colace] 100 mg PO BID 05/10/23 [History] Fludrocortisone [Florinef] 0.1 mg PO DAILY 05/10/23 [History] Potassium Chloride ER [K-Dur 20] 20 meq PO BID 05/10/23 [History] Ferrous Sulfate [Feosol] 325 mg PO DAILY 30 Days #60 tab 05/12/23 [Rx] Follow up Appointment(s)/Referral(s): Tacos Marcos DO [Doctor of Osteopathic Medicine] - 1 Week [facility], [NON-STAFF] - 1 Week Nayan Georges [Primary Care Provider] - 1-2 days Discharge Disposition: HOME SELF-CARE
--- NOTE | 2023-05-12 13:49 | XR ---
EXAMINATION TYPE: XR chest 1V portable DATE OF EXAM: 05/12/2023 1:19 PM CLINICAL INDICATION:Male, 77 years old with history of Pneumonia and pneumothorax eval after PPM plac ement; [facility] COMPARISON: 02/15/2023 TECHNIQUE: XR chest 1V portable Frontal view of the chest. FINDINGS: Lungs/Pleura: There is no evidence of pleural effusion, focal consolidation, or pneumothorax. Pulmonary vascularity: Mild pulmonary vascular congestion. Heart/mediastinum: Cardiomediastinal silhouette is enlarged and stable. Atherosclerotic calcificatio ns are seen in the aorta. Two lead cardiac conduction device overlying the left hemithorax with lead tips projecting over the right ventricle and right atrium. Musculoskeletal: No acute osseous pathology. Other findings: None Lines/Tubes: IMPRESSION: No evidence for pneumothorax. Cardiomegaly and mild pulmonary vascular congestion. Correlate with BNP for congestive heart failure.
[2023-05-12 16:03] VITALS: BP 94/61; PULSE 63; TEMP 97.6
== END 2023-05-12 16:55 | disposition home or self-care (01) | DRG 987 ==
LOC: EC 22:17 → 6NMEDSUR 05-10 04:51 → OBSVTOIN 05-10 14:24
PROVIDERS: ADMIT Hospitalist; ATTEND Hospitalist
PROC: 3E1M39Z Irrigation of Peritoneal Cavity using Dialysate, Percutaneous Approach (ICD-10-PCS; 2023-05-10)
PROC: 0JPT0PZ Removal of Cardiac Rhythm Related Device from Trunk Subcutaneous Tissue and Fascia, Open Approach (ICD-10-PCS; principal; 2023-05-11 09:00)
PROC: 0JH606Z Insertion of Pacemaker, Dual Chamber into Chest Subcutaneous Tissue and Fascia, Open Approach (ICD-10-PCS; principal; 2023-05-11 09:00)
DX: E87.1 Hypo-osmolality and hyponatremia (principal); N18.6 End stage renal disease; I13.2 Hypertensive heart and chronic kidney disease with heart failure and with stage 5 chronic kidney disease, or end stage renal disease; I48.19 Other persistent atrial fibrillation; I42.9 Cardiomyopathy, unspecified; I44.2 Atrioventricular block, complete; Z45.010 Encounter for checking and testing of cardiac pacemaker pulse generator [battery]; G47.33 Obstructive sleep apnea (adult) (pediatric); E11.22 Type 2 diabetes mellitus with diabetic chronic kidney disease; I50.9 Heart failure, unspecified; D63.1 Anemia in chronic kidney disease; Z99.2 Dependence on renal dialysis; Z79.84 Long term (current) use of oral hypoglycemic drugs; R53.81 Other malaise; K21.9 Gastro-esophageal reflux disease without esophagitis; E03.9 Hypothyroidism, unspecified; I49.5 Sick sinus syndrome; E78.5 Hyperlipidemia, unspecified; I95.89 Other hypotension; J44.9 Chronic obstructive pulmonary disease, unspecified; M10.9 Gout, unspecified; Z99.81 Dependence on supplemental oxygen; Z79.01 Long term (current) use of anticoagulants; Z79.52 Long term (current) use of systemic steroids; Z79.82 Long term (current) use of aspirin; Z79.890 Hormone replacement therapy; Z79.899 Other long term (current) drug therapy; Z87.891 Personal history of nicotine dependence; Z82.49 Family history of ischemic heart disease and other diseases of the circulatory system; Z86.14 Personal history of Methicillin resistant Staphylococcus aureus infection; Z90.49 Acquired absence of other specified parts of digestive tract
CPT/HCPCS: 33228; 36415; 71045; 80053; 82550; 82728; 83036; 83540; 83550; 84100; 84484; 85025; 87070; 87077; 87186; 87205; 93005; 99285

== ENCOUNTER 2023-06-04 20:56 | Inpatient (IN) | payer MEDICARE ==
[2023-06-04] MEDS ORDERED: SODIUM CHLORIDE 0.9% 1,000 ML IV STA (21:02)
--- NOTE | 2023-06-04 21:31 | ED ---
Weakness HPI - General Chief complaint: Abdominal Pain Stated complaint: Abd Pain, AFib Time Seen by Provider: 06/04/23 21:02 Source: patient, EMS, RN notes reviewed, old records reviewed Mode of arrival: EMS Limitations: no limitations - History of Present Illness Initial comments: This is a 77-year-old male the ER today. Patient presents today for evaluation of abdominal pain chest pain shortness of breath and general not feeling well. Patient feels safe at home. Patient also having some abdominal pain persistently for 2 weeks now. Patient is on peritoneal dialysis. Patient has no fevers and recently had his pacemaker changed. MD Complaint: generalized weakness, lack of energy -: days(s) Location: generalized Severity: moderate Severity scale (1-10): 4 Quality: aching Consistency: constant Improves with: none Worsens with: none Context: recent illness, history of similar Associated Symptoms: nausea/vomiting, shortness of breath - Related Data Home Medications Medication Instructions Recorded Confirmed allopurinoL [Zyloprim] 300 mg PO DAILY 11/21/14 06/05/23 Acetaminophen Tab [Tylenol] 650 mg PO BID 07/12/16 06/05/23 Multivitamins, Thera [Multivitamin 1 tab PO DAILY 10/03/17 06/05/23 (formulary)] Lovastatin [Altoprev] 40 mg PO HS 05/24/21 06/05/23 Aspirin [Adult Low Dose Aspirin EC] 81 mg PO DAILY 03/29/22 06/05/23 Lactulose 2 tsp PO DAILY 03/29/22 06/05/23 Omeprazole 40 mg PO DAILY 03/29/22 06/05/23 Torsemide [Demadex] 80 mg PO DAILY 03/29/22 06/05/23 Midodrine HCl [ProAmatine] 10 mg PO QID 02/14/23 06/05/23 glipiZIDE [Glucotrol] 10 mg PO AC-BID 02/14/23 06/05/23 Sucralfate [Carafate] 1 gm PO BID 02/15/23 06/05/23 Amiodarone [Cordarone] 400 mg PO DAILY 05/10/23 06/05/23 Docusate [Colace] 100 mg PO BID 05/10/23 06/05/23 Fludrocortisone [Florinef] 0.1 mg PO DAILY 05/10/23 06/05/23 Potassium Chloride ER [K-Dur 20] 20 meq PO BID 05/10/23 06/05/23 Previous Rx's Medication Instructions Recorded Ferrous Sulfate [Feosol] 325 mg PO DAILY 30 Days #60 tab 05/12/23 Allergies Allergy/AdvReac Type Severity Reaction Status Date / Time lisinopril AdvReac Mild Cough Verified 06/05/23 07:46 Review of Systems ROS Statement: Those systems with pertinent positive or pertinent negative responses have been documented in the HPI. ROS Other: All systems not noted in ROS Statement are negative. Past Medical History Past Medical History: Atrial Fibrillation, COPD, Diabetes Mellitus, Dialysis, GERD/Reflux, Hyperlipidemia, Hypertension, Osteoarthritis (OA), Renal Disease, Sleep Apnea/CPAP/BIPAP, Thyroid Disorder Additional Past Medical History / Comment(s): O2 3L per nasal cannula. Dialysis MOWEFR. Cardiomyopathy. Gout. Constipation. 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 hemodialysis cath, peritoneal dialysis Past Anesthesia/Blood Transfusion Reactions: No Reported Reaction Type of Cardiac Device: Permanent Pacemaker Device Placement Date:: 10/17/2012 Past Psychological History: No Psychological Hx Reported Smoking Status: Former smoker Past Alcohol Use History: None Reported Past Drug Use History: None Reported - Past Family History Father History Unknown: Yes Additional Family Medical History / Comment(s): "hardening of the arteries" Mother History Unknown: Yes Additional Family Medical History / Comment(s): "water in the lungs" at 95. General Exam General appearance: alert, in no apparent distress, anxious Head exam: Present: atraumatic, normocephalic, normal inspection Eye exam: Present: normal appearance, PERRL, EOMI. Absent: scleral icterus, con junctival injection, periorbital swelling ENT exam: Present: normal exam, mucous membranes moist Neck exam: Present: normal inspection. Absent: tenderness, meningismus, lymphadenopathy Respiratory exam: Present: normal lung sounds bilaterally. Absent: respiratory distress, wheezes, rales, rhonchi, stridor Cardiovascular Exam: Present: regular rate, normal rhythm, normal heart sounds. Absent: systolic murmur, diastolic murmur, rubs, gallop, clicks GI/Abdominal exam: Present: soft, normal bowel sounds. Absent: distended, tenderness, guarding, rebound, rigid Extremities exam: Present: normal inspection, full ROM, normal capillary refill. Absent: tenderness, pedal edema, joint swelling, calf tenderness Back exam: Present: normal inspection Neurological exam: Present: alert, oriented X3, CN II-XII intact Psychiatric exam: Present: normal affect, normal mood Skin exam: Present: warm, dry, intact, normal color. Absent: rash Course Vital Signs 06/04/23 06/04/23 06/05/23 21:01 23:00 01:28 Temperature 98.9 F 97.6 F Pulse Rate 78 85 77 Respiratory 18 17 20 Rate Blood Pressure 102/70 93/54 96/64 O2 Sat by Pulse 99 100 96 Oximetry 06/05/23 06/05/23 06/05/23 03:44 05:11 08:35 Temperature 98.1 F Pulse Rate 76 81 78 Respiratory 20 22 16 Rate Blood Pressure 98/53 95/55 86/54 O2 Sat by Pulse 97 96 95 Oximetry 06/05/23 06/05/23 06/05/23 09:33 11:47 14:05 Temperature 98.3 F 98.4 F Pulse Rate 72 68 Respiratory 16 20 Rate Blood Pressure 82/55 87/56 O2 Sat by Pulse 95 96 95 Oximetry - Reevaluation(s) Reevaluation #1: 06/05/23 00:25 Medical records reviewed Reevaluation #2: 06/05/23 00:25 Patient symptoms are unchanged Reevaluation #3: 06/05/23 00:25 Patient informed results questions answered Reevaluation #4: 06/05/23 00:25 Was pt. sent in by a medical professional or institution (, PA, MEDICAL SERVICE TECHNICIAN, urgent care, hospital, or [facility]...) When possible be specific @ -no Did you speak to anyone other than the patient for history (EMS, parent, family, police, friend...)? What history was obtained from this source @ -no Did you review nursing and triage notes (agree or disagree)? Why? @ -agree Are old charts reviewed (outside hosp., previous admission, EMS record, old EKG, old radiological studies, urgent care reports/EKG's, [facility] records)? Report findings @ -yes Differential Diagnosis (chest pain, altered mental status, abdominal pain women, abdominal pain men, vaginal bleeding, weakness, fever, dyspnea, syncope, headache, dizziness, GI bleed, back pain, seizure, CVA, palpatations, mental health, musculoskeletal)? @ -prior EKG interpreted by me (3pts min.). @ -no X-rays interpreted by me (1pt min.). @ -yes CT interpreted by me (1pt min.). @ -yes U/S interpreted by me (1pt. min.). @ -no What testing was considered but not performed or refused? (CT, X-rays, U/S, labs)? Why? @ -none What meds were considered but not given or refused? Why? @ -none Did you discuss the management of the patient with other professionals (professionals i.e. , PA, MEDICAL SERVICE TECHNICIAN, lab, RT, psych nurse, social media designer, chemicals distiller, teacher, [employer] officer, housing case manager)? Give summary @ -no Was smoking cessation discussed for >3mins.? @ -no Was critical care preformed (if so, how long)? @ -yes Were there social determinants of health that impacted care today? How? (Homelessness, low income, unemployed, alcoholism, drug addiction, transportation, low edu. Level, literacy, decrease access to med. care, senior living, rehab)? @ -none Was there de-escalation of care discussed even if they declined (Discuss DNR or withdrawal of care, Hospice)? DNR status @ -no What co-morbidities impacted this encounter? (DM, HTN, Smoking, COPD, CAD, Cancer, CVA, ARF, Chemo, Hep., AIDS, mental health diagnosis, sleep apnea, morbid obesity)? @ -none Was patient admitted / discharged? Hospital course, mention meds given and route, prescriptions, significant lab abnormalities, going to OR and other pertinent info. @ - 77 male be admitted for further evaluation management patient does have. P ersistent does have findings of peritonitis of cardiovascular here in the ER. Patient be admitted for IV antibiotics and sepsis Admitted Undiagnosed new problem with uncertain prognosis? @ -no Drug Therapy requiring intensive monitoring for toxicity (Heparin, Nitro, Insulin, Cardizem)? @ -no Were any procedures done? @ -no Diagnosis/symptom? @ -Peritonitis, hyponatremia, weakness, renal failure Acute, or Chronic, or Acute on Chronic? @ -Acute Uncomplicated (without systemic symptoms) or Complicated (systemic symptoms)? @ -Complicated Side effects of treatment? @ -no Exacerbation, Progression, or Severe Exacerbation? @ -exacerbation Poses a threat to life or bodily function? How? (Chest pain, USA, IA, pneumonia, PE, COPD, DKA, ARF, appy, cholecystitis, CVA, Diverticulitis, Homicidal, Suicidal, threat to staff... and all critical care pts) @ -yes with severe sepsis Reevaluation #5: 06/05/23 00:25 Differential Weakness: Hypoglycemia, shock, sepsis, hyponatremia, anemia, infection, IA, ETOH, adverse medicine reaction, overdose, stroke, this is not meant to be an all-inclusive list. - Consultations Consultation #1: Spoke with [facility] to admit this patient Medical Decision Making - Medical Decision Making 77 male be admitted for further evaluation management patient does have. Persistent does have findings of peritonitis of cardiovascular here in the ER. Patient be admitted for IV antibiotics and sepsis - Lab Data Result diagrams: 06/11/23 03:29 06/11/23 03:29 Lab Results 06/04/23 06/04/23 06/04/23 Range/Units 21:44 21:44 21:44 WBC 19.6 H (3.8-10.6) k/uL RBC 3.69 L (4.30-5.90) m/uL Hgb 11.6 L (13.0-17.5) gm/dL Hct 35.9 L (39.0-53.0) % MCV 97.1 (80.0-100.0) fL MCH 31.4 (25.0-35.0) pg MCHC 32.3 (31.0-37.0) g/dL RDW 18.7 H (11.5-15.5) % Plt Count 299 (150-450) k/uL MPV 7.9 Neutrophils % 89 % Lymphocytes % 6 % Monocytes % 3 % Eosinophils % 1 % Basophils % 0 % Neutrophils # 17.4 H (1.3-7.7) k/uL Lymphocytes # 1.2 (1.0-4.8) k/uL Monocytes # 0.7 (0-1.0) k/uL Eosinophils # 0.1 (0-0.7) k/uL Basophils # 0.0 (0-0.2) k/uL Poikilocytosis Slight Anisocytosis Slight Macrocytosis Slight PT (10.0-12.5) sec INR (<1.2) APTT (22.0-30.0) sec Sodium 126 L (137-145) mmol/L Potassium 4.5 (3.5-5.1) mmol/L Chloride 88 L (98-107) mmol/L Carbon Dioxide 21 L (22-30) mmol/L Anion Gap 17 mmol/L BUN 48 H (9-20) mg/dL Creatinine 4.71 H (0.66-1.25) mg/dL Est GFR (CKD-EPI)AfAm 13 (>60 ml/min/1.73 sqM) Est GFR (CKD-EPI)NonAf 11 (>60 ml/min/1.73 sqM) Glucose 148 H (74-99) mg/dL POC Glucose (mg/dL) (70-110) mg/dL POC Glu Show Host Or Hostess ID Calcium 8.9 (8.4-10.2) mg/dL Magnesium 1.1 L (1.6-2.3) mg/dL Total Bilirubin 0.7 (0.2-1.3) mg/dL AST 22 (17-59) U/L ALT 18 (4-49) U/L Alkaline Phosphatase 137 H (38-126) U/L Troponin I 0.050 H* (0.000-0.034) ng/mL NT-Pro-B Natriuret Pep 94796 pg/mL Total Protein 7.0 (6.3-8.2) g/dL Albumin 3.5 (3.5-5.0) g/dL Lipase 198 (23-300) U/L 06/04/23 06/05/23 Range/Units 23:47 07:57 WBC (3.8-10.6) k/uL RBC (4.30-5.90) m/uL Hgb (13.0-17.5) gm/dL Hct (39.0-53.0) % MCV (80.0-100.0) fL MCH (25.0-35.0) pg MCHC (31.0-37.0) g/dL RDW (11.5-15.5) % Plt Count (150-450) k/uL MPV Neutrophils % % Lymphocytes % % Monocytes % % Eosinophils % % Basophils % % Neutrophils # (1.3-7.7) k/uL Lymphocytes # (1.0-4.8) k/uL Monocytes # (0-1.0) k/uL Eosinophils # (0-0.7) k/uL Basophils # (0-0.2) k/uL Poikilocytosis Anisocytosis Macrocytosis PT 10.2 (10.0-12.5) sec INR 0.9 (<1.2) APTT 26.2 (22.0-30.0) sec Sodium (137-145) mmol/L Potassium (3.5-5.1) mmol/L Chloride (98-107) mmol/L Carbon Dioxide (22-30) mmol/L Anion Gap mmol/L BUN (9-20) mg/dL Creatinine (0.66-1.25) mg/dL Est GFR (CKD-EPI)AfAm (>60 ml/min/1.73 sqM) Est GFR (CKD-EPI)NonAf (>60 ml/min/1.73 sqM) Glucose (74-99) mg/dL POC Glucose (mg/dL) 141 H (70-110) mg/dL POC Glu Show Host Or Hostess ID October Calcium (8.4-10.2) mg/dL Magnesium (1.6-2.3) mg/dL Total Bilirubin (0.2-1.3) mg/dL AST (17-59) U/L ALT (4-49) U/L Alkaline Phosphatase (38-126) U/L Troponin I (0.000-0.034) ng/mL NT-Pro-B Natriuret Pep pg/mL Total Protein (6.3-8.2) g/dL Albumin (3.5-5.0) g/dL Lipase (23-300) U/L - Radiology Data Radiology results: report reviewed (CT Of the abdomen and pelvis and chest x- rays negative for significant acute disease), image reviewed Critical Care Time Critical Care Time: Yes Total Critical Care Time: 31 Disposition Clinical Impression: Weakness of both lower extremities, Near syncope, Abdominal pain, Weakness, Abdominal colic, Chest pain, Pulmonary edema, Ileus, Acute renal failure, Hyponatremia, Peritonitis Disposition: ADMITTED IP TO THIS HOSP Condition: Fair Is patient prescribed a controlled substance at d/c from ED?: No Time of Disposition: 00:30
[2023-06-04 22:05] LABS: ALT 18 U/L (4-49); AST 22 U/L (17-59); African American GFR (CKD) 13 (>60 ml/min/1.73 sqM); Albumin 3.5 g/dL (3.5-5.0); Alkaline Phosphatase 137 U/L (38-126); Anion Gap 17 mmol/L; Blood Urea Nitrogen 48 mg/dL (9-20); Calcium 8.9 mg/dL (8.4-10.2); Carbon Dioxide 21 mmol/L (22-30); Chloride 88 mmol/L (98-107); Glucose 148 mg/dL (74-99); Lipase 198 U/L (23-300); Magnesium 1.1 mg/dL (1.6-2.3); Non-African American GFR(CKD) 11 (>60 ml/min/1.73 sqM); Potassium 4.5 mmol/L (3.5-5.1); Sodium 126 mmol/L (137-145); Total Bilirubin 0.7 mg/dL (0.2-1.3)
[2023-06-04 22:13] LABS: NT-Pro-B-Type Natriuretic Pept 10000 pg/mL
[2023-06-04 22:32] LABS: Anisocytosis Slight; Basophils % (A) 0 %; Eosinophils # (A) 0.1 k/uL (0-0.7); Eosinophils % (A) 1 %; HCT 35.9 % (39.0-53.0); HGB 11.6 gm/dL (13.0-17.5); Lymphocytes # (A) 1.2 k/uL (1.0-4.8); Lymphocytes % (A) 6 %; MCH 31.4 pg (25.0-35.0); MCHC 32.3 g/dL (31.0-37.0); MCV 97.1 fL (80.0-100.0); Macrocytosis Slight; Mean Platelet Volume 7.9; Monocytes # (A) 0.7 k/uL (0-1.0); Monocytes % (A) 3 %; Neutrophils # (A) 17.4 k/uL (1.3-7.7); Neutrophils % (A) 89 %; Platelet Count 299 k/uL (150-450); Poikilocytosis Slight; RBC 3.69 m/uL (4.30-5.90); RDW 18.7 % (11.5-15.5); WBC 19.6 k/uL (3.8-10.6)
--- NOTE | 2023-06-04 23:54 | CT ---
EXAM: CT Abdomen and Pelvis Without Intravenous Contrast CLINICAL HISTORY: ITS.REASON CT Reason: pain TECHNIQUE: Axial computed tomography images of the abdomen and pelvis without intravenous contrast. CTDI is 19.8 mGy and DLP is 1293.4 mGy-cm. This CT exam was performed using one or more of the following dose reduction techniques: automated exposure control, adjustment of the mA and/or kV according to patient size, and/or use of iterative reconstruction technique. COMPARISON: No relevant prior studies available. FINDINGS: Lung bases: See below. Heart: Cardiomegaly. Atelectasis at the lung bases. Mediastinum: Small hiatal hernia. ABDOMEN: Liver: Unremarkable. Gallbladder and bile ducts: Unremarkable. No calcified stones. No ductal dilation. Pancreas: Unremarkable. No ductal dilation. Spleen: Unremarkable. No splenomegaly. Adrenals: Unremarkable. No mass. Kidneys and ureters: Renal atrophy. Renal cyst. No obstructing stones. No hydronephrosis. Stomach and bowel: Diverticulosis, without acute diverticulitis. No small bowel obstruction. No free intraperitoneal air. PELVIS: Appendix: No findings to suggest acute appendicitis. Bladder: Unremarkable. No stones. Reproductive: Unremarkable as visualized. ABDOMEN and PELVIS: Intraperitoneal space: Abdominal and pelvic ascites. Peritoneal dialysis catheter. No free air. Bones/joints: Degenerative changes of the spine. No acute fracture. No dislocation. Soft tissues: Unremarkable. Vasculature: Atherosclerotic changes of the aorta. No abdominal aortic aneurysm. Lymph nodes: Unremarkable. No enlarged lymph nodes. Tubes, lines and devices: Pacemaker leads. IMPRESSION: 1. Abdominal and pelvic ascites. Peritoneal dialysis catheter. 2. Small hiatal hernia. 3. Diverticulosis, without acute diverticulitis. No small bowel obstruction. No free intraperitoneal air.
[2023-06-05] MEDS ORDERED: NALOXONE 0.4 MG/ML 1 ML VIAL IV PRN (00:26)
[2023-06-05] MEDS ORDERED: ONDANSETRON 4 MG/2 ML VIAL IVP PRN (00:26)
[2023-06-05] MEDS ORDERED: MORPHINE SULFATE 4 MG/ML SYRINGE IV PRN (00:26)
--- NOTE | 2023-06-05 00:29 | XR ---
EXAM: XR Chest, 1 View CLINICAL HISTORY: ITS.REASON XR Reason: pain TECHNIQUE: Frontal view of the chest. COMPARISON: No relevant prior studies available. FINDINGS: Lungs: Unremarkable. No consolidation. Pleural space: Trace bilateral pleural effusions. No pneumothorax. Heart: Cardiomegaly. Mediastinum: Unremarkable. Bones/joints: Unremarkable. Tubes, lines and devices: Dual lead pacemaker. IMPRESSION: Trace bilateral pleural effusions.
[2023-06-05 00:30] LABS: INR 0.9 (<1.2); Partial Thromboplastin Time 26.2 sec (22.0-30.0); Prothrombin Time 10.2 sec (10.0-12.5)
[2023-06-05] MEDS ORDERED: SODIUM CHLORIDE 0.9% 1,000 ML IV SCH (00:30)
[2023-06-05] MEDS ORDERED: ACETAMINOPHEN TAB 500 MG TAB PO STA (01:51)
[2023-06-05 07:59] LABS: Glucose,Whole Blood 141 mg/dL (70-110)
[2023-06-05] MEDS ORDERED: DIALYSIS (PERIT 1.5%) 1,000 ML 15 G/1,000 ML BAG INTRAPERIT ONE (08:00)
[2023-06-05] MEDS ORDERED: AZTREONAM 2 GM in SODIUM CHLORIDE 0.9% 50 ML IVPB STA (09:57)
[2023-06-05] MEDS ORDERED: AZTREONAM 2 GM in SODIUM CHLORIDE 0.9% 100 ML IVPB STA (09:59)
[2023-06-05] MEDS ORDERED: VANCOMYCIN INTRAPERIT ONE ×2 (10:00→12:30)
[2023-06-05] MEDS ORDERED: DIALYSIS DEX INTRAPERIT ONE ×2 (10:00→12:30)
[2023-06-05] MEDS ORDERED: CEFTAZIDIME INTRAPERIT ONE ×2 (10:00→12:30)
--- NOTE | 2023-06-05 10:18 | P.CRDCN ---
History of Present Illness History of present illness: HISTORY OF PRESENT ILLNESS: This is a 77-year-old male with a past medical history significant for end-stage renal disease on peritoneal dialysis, congestive heart failure, persistent atrial fibrillation, hypertension, diabetes, and permanent pacemaker implantation. Patient follows in the office with Dr. Witt. We have been asked to see the patient in consultation for chest pain. Patient examined at the bedside in the emergency room. Patient presented to the hospital with a chief complaint of abdominal pain and generalized weakness. The patient denies having any chest pain yesterday or today. He denies any shortness of breath. The patient is continuing to have abdominal pain at the time of examination. Patient is hypotensive this morning with a blood pressure of 86/54. White count was noted to be elevated at 19.6. * EKG reveals paced rhythm with underlying atrial fibrillation * Chest xray trace bilateral pleural effusions * Laboratory data: WBC 19.6. BUN 48. Creatinine 4.71. Troponin 0.050. * Current home cardiac medications include Demadex 80 mg daily, aspirin 81 mg daily, and amiodarone 40 mg daily * Most recent echocardiogram obtained in February 2023 revealed ejection fraction 35-40%, severe pulmonary hypertension, mild mitral regurgitation, mild tricuspid regurgitation * Patient underwent Marichuy scan stress test in November 2020 which was negative for ischemia * It is noted that patient underwent generator change on 05/11/2023 REVIEW OF SYSTEMS: At the time of my exam: CONSTITUTIONAL: Denies fever or chills. HEENT: Denies blurred vision, vision changes, or eye pain. Denies hemoptysis CARDIOVASCULAR: Denies chest pain. Denies orthopnea. Denies PND. Denies palpitations RESPIRATORY: Denies shortness of breath. GASTROINTESTINAL: Reports abdominal pain. Denies nausea or vomiting. HEMATOLOGIC: Denies bleeding disorders. GENITOURINARY: Denies any blood in urine. SKIN: Denies pruitis. Denies rash. PHYSICAL EXAM: VITAL SIGNS: Reviewed. GENERAL: Well-developed in no acute distress. HEENT: Head is normocephalic. Pupils are equal, round. Sclerae anicteric. Mucous membranes of the mouth are moist. Neck supple. No JVD or thyromegaly LUNGS: Respirations even and unlabored. Lungs essentially clear to auscultation bilaterally. HEART: Regular rate and rhythm. S1 and S2 heard. ABDOMEN: Soft. Nondistended. Tenderness upon palpation EXTREMITIES: Normal range of motion. No clubbing or cyanosis. Peripheral pulses intact. No lower extremity edema NEUROLOGIC: Awake and alert. Oriented x 3. ASSESSMENT: Generalized weakness Abdominal pain with leukocytosis, on peritoneal dialysis, rule out peritonitis Hypotension End-stage renal disease on peritoneal dialysis Chronic congestive heart failure with reduced EF, 35-40% Severe pulmonary hypertension Persistent atrial fibrillation Hypertension Diabetes History of permanent pacemaker implantation with generator change in April 2023 PLAN: An acute coronary event has been ruled out. Patient denies having any chest pain yesterday or today. Recommend nephrology and general surgery consult to rule out peritonitis Hold home antihypertensive medications at this time secondary to low blood pressures Resume aspirin and amiodarone. Decrease amiodarone dose to 200 mg daily Further recommendations pending patient's course Nurse practitioner note has been reviewed by physician. Signing provider agrees with the documented findings, assessment, and plan of care. Past Medical History Past Medical History: Atrial Fibrillation, COPD, Diabetes Mellitus, Dialysis, GERD/Reflux, Hyperlipidemia, Hypertension, Osteoarthritis (OA), Renal Disease, Sleep Apnea/CPAP/BIPAP, Thyroid Disorder Additional Past Medical History / Comment(s): O2 3L per nasal cannula. Dialysis MOWEFR. Cardiomyopathy. Gout. Constipation. 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 hemodialysis cath, peritoneal dialysis Past Anesthesia/Blood Transfusion Reactions: No Reported Reaction Type of Cardiac Device: Permanent Pacemaker Device Placement Date:: 10/17/2012 Past Psychological History: No Psychological Hx Reported Smoking Status: Former smoker Past Alcohol Use History: None Reported Past Drug Use History: None Reported - Past Family History Father History Unknown: Yes Additional Family Medical History / Comment(s): "hardening of the arteries" Mother History Unknown: Yes Additional Family Medical History / Comment(s): "water in the lungs" at 95. Medications and Allergies Home Medications Medication Instructions Recorded Confirmed Type allopurinoL [Zyloprim] 300 mg PO DAILY 11/21/14 06/05/23 History Acetaminophen Tab [Tylenol] 650 mg PO BID 07/12/16 06/05/23 History Multivitamins, Thera [Multivitamin 1 tab PO DAILY 10/03/17 06/05/23 History (formulary)] Lovastatin [Altoprev] 40 mg PO HS 05/24/21 06/05/23 History Aspirin [Adult Low Dose Aspirin EC] 81 mg PO DAILY 03/29/22 06/05/23 History Lactulose 2 tsp PO DAILY 03/29/22 06/05/23 History Omeprazole 40 mg PO DAILY 03/29/22 06/05/23 History Torsemide [Demadex] 80 mg PO DAILY 03/29/22 06/05/23 History Midodrine HCl [ProAmatine] 10 mg PO QID 02/14/23 06/05/23 History glipiZIDE [Glucotrol] 10 mg PO AC-BID 02/14/23 06/05/23 History Sucralfate [Carafate] 1 gm PO BID 02/15/23 06/05/23 History Amiodarone [Cordarone] 400 mg PO DAILY 05/10/23 06/05/23 History Docusate [Colace] 100 mg PO BID 05/10/23 06/05/23 History Fludrocortisone [Florinef] 0.1 mg PO DAILY 05/10/23 06/05/23 History Potassium Chloride ER [K-Dur 20] 20 meq PO BID 05/10/23 06/05/23 History Ferrous Sulfate [Feosol] 325 mg PO DAILY 30 Days #60 tab 05/12/23 06/05/23 Rx Allergies Allergy/AdvReac Type Severity Reaction Status Date / Time lisinopril AdvReac Mild Cough Verified 06/05/23 07:46 Physical Exam Vitals: Vital Signs Temp Pulse Resp BP Pulse Ox 06/05/23 09:33 98.3 F 95 06/05/23 08:35 78 16 86/54 95 06/05/23 05:11 98.1 F 81 22 95/55 96 06/05/23 03:44 76 20 98/53 97 06/05/23 01:28 97.6 F 77 20 96/64 96 06/04/23 23:00 85 17 93/54 100 06/04/23 21:01 98.9 F 78 18 102/70 99 Intake and Output 06/04/23 06/05/2306/05/23 22:59 06:59 14:59 Other: Weight 107.32 kg Results 06/04/23 21:44 06/04/23 21:44 Cardiac Enzymes 06/04/23 06/04/23 Range/Units 21:44 21:44 AST 22 (17-59) U/L Troponin I 0.050 H* (0.000-0.034) ng/mL Coagulation 06/04/23 Range/Units 23:47 PT 10.2 (10.0-12.5) sec APTT 26.2 (22.0-30.0) sec CBC 06/04/23 Range/Units 21:44 WBC 19.6 H (3.8-10.6) k/uL RBC 3.69 L (4.30-5.90) m/uL Hgb 11.6 L (13.0-17.5) gm/dL Hct 35.9 L (39.0-53.0) % Plt Count 299 (150-450) k/uL Comprehensive Metabolic Panel 06/04/23 Range/Units 21:44 Sodium 126 L (137-145) mmol/L Potassium 4.5 (3.5-5.1) mmol/L Chloride 88 L (98-107) mmol/L Carbon Dioxide 21 L (22-30) mmol/L BUN 48 H (9-20) mg/dL Creatinine 4.71 H (0.66-1.25) mg/dL Glucose 148 H (74-99) mg/dL Calcium 8.9 (8.4-10.2) mg/dL AST 22 (17-59) U/L ALT 18 (4-49) U/L Alkaline Phosphatase 137 H (38-126) U/L Total Protein 7.0 (6.3-8.2) g/dL Albumin 3.5 (3.5-5.0) g/dL Current Medications Generic Name Dose Route Start Last Admin Trade Name Freq PRN Reason Stop Dose Admin Sodium Chloride 1,000 mls @ 75 mls/hr 06/05/23 00:30 06/05/23 02:07 Saline 0.9% IV 75 mls/hr .[id number] SERGEY Administration Peritoneal Dialysis Solution 30 g in 2,000 mls @ 0 mls/hr 06/05/23 16:00 Delflex With 1.5% Dextrose (2,000 Ml) INTRAPERIT Q6H [facility] Protocol As Directed Aztreonam 2 gm/ Sodium 100 mls @ 100 mls/hr 06/05/23 09:59 Chloride IVPB 06/05/23 10:58 ONCE STA Morphine Sulfate 4 mg 06/05/23 00:26 Morphine Sulfate 4 Mg/Ml Syringe IV Q4HR PRN Severe Pain (Scale 7 to 10) Naloxone HCl 0.2 mg 06/05/23 00:26 Naloxone 0.4 Mg/Ml 1 Ml Vial IV Q2M PRN Opioid Reversal Ondansetron HCl 4 mg 06/05/23 00:26 Ondansetron 4 Mg/2 Ml Vial IVP Q8HR PRN Nausea And Vomiting Intake and Output 06/04/23 06/05/23 06/05/23 22:59 06:59 14:59 Other: Weight 107.32 kg 06/04/23 21:44 06/04/23 21:44
[2023-06-05] MEDS ORDERED: DEXTROSE 50% SYRINGE 50 ML IVP PRN ×2 (10:21)
--- NOTE | 2023-06-05 10:26 | P.HPIM ---
History of Present Illness This is a pleasant 77 years old male with past medical history of end-stage renal disease undergoing peritoneal dialysis, history of cardiomyopathy and heart block status post dual chamber pacemaker , diabetes mellitus, GERD, low bl ood pressure, hyperlipidemia, constipation history of atrial fibrillation, sleep apnea patient presents because of abdominal pain on the right side. He says that his pain about 10/10 and his been going on for the last 2 weeks but gets more worse recently over 1-2 days. He reports some loose stool and diarrhea, he had 1 loose bowel movement yesterday. He is not able to eat but no vomiting Currently denies chest pain or dyspnea. No urinary complaints. No headache. No weakness numbness. He is nonsmoker no alcohol or no illicit drugs. Blood pressure currently the low side 86/54. Sodium 126, creatinine 4.7, glucose 148, magnesium 1.1, liver enzymes not elevated. ProBNP is 10,000. Lipase 198. Chest x-ray: No acute process except for trace bilateral pleural effusion CT of the abdomen and pelvis: Abdominal and pelvic ascites with peritoneal dialysis catheter in place. Small hiatal hernia, diverticulosis without acute diverticulitis, no small bowel obstruction, no free intraperitoneal air Review of Systems Review of systems -CONSTITUTIONAL: No fever, has malaise, has fatigue. HEENT: No recent visual problems or hearing problems. Denied any sore throat. CARDIOVASCULAR: No orthopnea, PND, no palpitations, no syncope. PULMONARY: No shortness of breath, no cough, no hemoptysis. GASTROINTESTINAL: No diarrhea, no nausea, no vomiting,. Normoactive bowel sounds. NEUROLOGICAL: No headaches, no weakness, no numbness. HEMATOLOGICAL: Denies any bleeding or petechiae. GENITOURINARY: Denies any burning micturition, frequency, or urgency. MUSCULOSKELETAL/RHEUMATOLOGICAL: Denies any joint pain, swelling, or any muscle pain. ENDOCRINE: Denies any polyuria or polydipsia. Past Medical History Past Medical History: Atrial Fibrillation, COPD, Diabetes Mellitus, Dialysis, GERD/Reflux, Hyperlipidemia, Hypertension, Osteoarthritis (OA), Renal Disease, Sleep Apnea/CPAP/BIPAP, Thyroid Disorder Additional Past Medical History / Comment(s): O2 3L per nasal cannula. Dialysis MOWEFR. Cardiomyopathy. Gout. Constipation. 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 hemodialysis cath, peritoneal dialysis Past Anesthesia/Blood Transfusion Reactions: No Reported Reaction Type of Cardiac Device: Permanent Pacemaker Device Placement Date:: 10/17/2012 Past Psychological History: No Psychological Hx Reported Smoking Status: Former smoker Past Alcohol Use History: None Reported Past Drug Use History: None Reported - Past Family History Father History Unknown: Yes Additional Family Medical History / Comment(s): "hardening of the arteries" Mother History Unknown: Yes Additional Family Medical History / Comment(s): "water in the lungs" at 95. Medications and Allergies Home Medications Medication Instructions Recorded Confirmed Type allopurinoL [Zyloprim] 300 mg PO DAILY 11/21/14 06/05/23 History Acetaminophen Tab [Tylenol] 650 mg PO BID 07/12/16 06/05/23 History Multivitamins, Thera [Multivitamin 1 tab PO DAILY 10/03/17 06/05/23 History (formulary)] Lovastatin [Altoprev] 40 mg PO HS 05/24/21 06/05/23 History Aspirin [Adult Low Dose Aspirin EC] 81 mg PO DAILY 03/29/22 06/05/23 History Lactulose 2 tsp PO DAILY 03/29/22 06/05/23 History Omeprazole 40 mg PO DAILY 03/29/22 06/05/23 History Torsemide [Demadex] 80 mg PO DAILY 03/29/22 06/05/23 History Midodrine HCl [ProAmatine] 10 mg PO QID 02/14/23 06/05/23 History glipiZIDE [Glucotrol] 10 mg PO AC-BID 02/14/23 06/05/23 History Sucralfate [Carafate] 1 gm PO BID 02/15/23 06/05/23 History Amiodarone [Cordarone] 400 mg PO DAILY 05/10/23 06/05/23 History Docusate [Colace] 100 mg PO BID 05/10/23 06/05/23 History Fludrocortisone [Florinef] 0.1 mg PO DAILY 05/10/23 06/05/23 History Potassium Chloride ER [K-Dur 20] 20 meq PO BID 05/10/23 06/05/23 History Ferrous Sulfate [Feosol] 325 mg PO DAILY 30 Days #60 tab 05/12/23 06/05/23 Rx Allergies Allergy/AdvReac Type Severity Reaction Status Date / Time lisinopril AdvReac Mild Cough Verified 06/05/23 07:46 Physical Exam Vitals: Vital Signs Temp Pulse Resp BP Pulse Ox 06/05/23 09:33 98.3 F 95 06/05/23 08:35 78 16 86/54 95 06/05/23 05:11 98.1 F 81 22 95/55 96 06/05/23 03:44 76 20 98/53 97 06/05/23 01:28 97.6 F 77 20 96/64 96 06/04/23 23:00 85 17 93/54 100 06/04/23 21:01 98.9 F 78 18 102/70 99 Intake and Output 06/04/23 06/05/23 06/05/23 22:59 06:59 14:59 Other: Weight 107.32 kg --GENERAL: The patient is alert and oriented x3, not in any acute distress. obese, he is generally weak with malaise HEENT: Pupils are round and equally reacting to light. EOMI. No scleral icterus. No conjunctival pallor. Normocephalic, atraumatic. No pharyngeal erythema. No thyromegaly. CARDIOVASCULAR: S1 and S2 present. No murmurs, rubs, or gallops. PULMONARY: Chest is clear to auscultation, no wheezing , no crackles. -ABDOMEN: Soft RLQ tenderness, normoactive bowel sounds. No palpable organomegaly. suprapubic peritoneal dialysis catheter in place with no purulent discharge or surrounding cellulitis MUSCULOSKELETAL: No joint swelling or deformity. EXTREMITIES: No cyanosis, clubbing, or pedal edema. NEUROLOGICAL: Gross neurological examination did not reveal any focal deficits. SKIN: No rashes. no petechiae. Results CBC & Chem 7: 06/04/23 21:44 06/04/23 21:44 Labs: Abnormal Lab Results - Last 24 Hours (Table) 06/04/23 06/04/23 06/04/23 Range/Units 21:44 21:44 21:44 WBC 19.6 H (3.8-10.6) k/uL RBC 3.69 L (4.30-5.90) m/uL Hgb 11.6 L (13.0-17.5) gm/dL Hct 35.9 L (39.0-53.0) % RDW 18.7 H (11.5-15.5) % Neutrophils # 17.4 H (1.3-7.7) k/uL Sodium 126 L (137-145) mmol/L Chloride 88 L (98-107) mmol/L Carbon Dioxide 21 L (22-30) mmol/L BUN 48 H (9-20) mg/dL Creatinine 4.71 H (0.66-1.25) mg/dL Glucose 148 H (74-99) mg/dL POC Glucose (mg/dL) (70-110) mg/dL Magnesium 1.1 L (1.6-2.3) mg/dL Alkaline Phosphatase 137 H (38-126) U/L Troponin I 0.050 H* (0.000-0.034) ng/mL 06/05/23 Range/Units 07:57 WBC (3.8-10.6) k/uL RBC (4.30-5.90) m/uL Hgb (13.0-17.5) gm/dL Hct (39.0-53.0) % RDW (11.5-15.5) % Neutrophils # (1.3-7.7) k/uL Sodium (137-145) mmol/L Chloride (98-107) mmol/L Carbon Dioxide (22-30) mmol/L BUN (9-20) mg/dL Creatinine (0.66-1.25) mg/dL Glucose (74-99) mg/dL POC Glucose (mg/dL) 141 H (70-110) mg/dL Magnesium (1.6-2.3) mg/dL Alkaline Phosphatase (38-126) U/L Troponin I (0.000-0.034) ng/mL Assessment and Plan Assessment: Right lower quadrant abdominal tenderness suspicious for peritonitis versus other, and in view of his ascites and dialysis catheter Possible sepsis with leukocytosis and tachypnea as he meets SIRS criteria Hypotension End-stage renal disease on hemodialysis Hypernatremia History of heart block status post dual chamber placement Cardiomyopathy with ejection fraction 35-40% Plan: Continue with antibiotics Zosyn and IV vancomycin with dialysis follow-up culture results iv hydration with normal saline Blood culture and check procalcitnonin and CRP continue with peritoneal dialysis. Nephrology consult Consult infectious disease team and surgery team Labs and medication were reviewed.. Continue same treatment. Continue with symptomatic treatment. Resume home medication. Monitor labs and vitals. DVT and GI prophylaxis. Further recommendations as per clinical course of the patient DVT prophylaxis: Subcutaneous heparin GI Prophylaxis: Ppi PT/OT: Pending Prognosis is guarded
[2023-06-05] MEDS ORDERED: DIALYSIS INTRAPERIT ONE ×2 (10:30)
[2023-06-05] MEDS: PIPERACILLIN-TAZOBACTAM 3.375 GM in SODIUM CHLORIDE 0.9% 100 ML IVPB SCH ×2 (10:47→20:42)
[2023-06-05] MEDS: MAGNESIUM SULFATE-D5W PMX 1 GM in DEXTROSE/WATER 1 100ML.BAG IVPB SCH ×2 (10:47→12:53)
[2023-06-05] MEDS: INSULIN ASPART (NovoLOG) 100 UNIT/ML VIAL SQ SCH ×2 (12:02→18:37)
[2023-06-05] MEDS: PANTOPRAZOLE 40 MG/10 ML VIAL IVP SCH (12:53)
--- NOTE | 2023-06-05 14:12 | P.NPCON ---
History of Present Illness - Reason for Consult end stage renal disease - History of Present Illness Reason for consultation: End-stage renal disease History of present illness: Patient is a 77-year-old male seen in renal consultation for end-stage renal disease. Patient was seen and examined in the emergency room. Patient is maintained on peritoneal dialysis. Patient came to the hospital due to gene ralized weakness. Also complaining of abdominal discomfort. Patient states he feels that he is constipated. He states he had a small bowel movement yesterday morning. Denies vomiting or diarrhea. No chest pain or shortness of breath. Patient has a pacemaker. He does a long-standing history of diabetes. Denies history of coronary artery disease. Patient states is difficult for him and his to do peritoneal dialysis and is considering transitioning to hemodialysis. Patient denies cloudy dialysate. Afebrile. Patient did have a white count of 19.6 on admission. Vital signs are stable. General: No acute distress. HEENT: Head exam is unremarkable. LUNGS: No audible rhonchi or wheezes. HEART: Rate and Rhythm are regular. ABDOMEN: Obese, nontender. EXTREMITITES: No edema. Chronic changes noted. Past Medical History Past Medical History: Atrial Fibrillation, COPD, Diabetes Mellitus, Dialysis, GERD/Reflux, Hyperlipidemia, Hypertension, Osteoarthritis (OA), Renal Disease, Sleep Apnea/CPAP/BIPAP, Thyroid Disorder Additional Past Medical History / Comment(s): O2 3L per nasal cannula. Dialysis MOWEFR. Cardiomyopathy. Gout. Constipation. 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 hemodialysis cath, peritoneal dialysis Past Anesthesia/Blood Transfusion Reactions: No Reported Reaction Type of Cardiac Device: Permanent Pacemaker Device Placement Date:: 10/17/2012 Past Psychological History: No Psychological Hx Reported Smoking Status: Former smoker Past Alcohol Use History: None Reported Past Drug Use History: None Reported - Past Family History Father History Unknown: Yes Additional Family Medical History / Comment(s): "hardening of the arteries" Mother History Unknown: Yes Additional Family Medical History / Comment(s): "water in the lungs" at 95. Medications and Allergies Home Medications Medication Instructions Recorded Confirmed Type allopurinoL [Zyloprim] 300 mg PO DAILY 11/21/14 06/05/23 History Acetaminophen Tab [Tylenol] 650 mg PO BID 07/12/16 06/05/23 History Multivitamins, Thera [Multivitamin 1 tab PO DAILY 10/03/17 06/05/23 History (formulary)] Lovastatin [Altoprev] 40 mg PO HS 05/24/21 06/05/23 History Aspirin [Adult Low Dose Aspirin EC] 81 mg PO DAILY 03/29/22 06/05/23 History Lactulose 2 tsp PO DAILY 03/29/22 06/05/23 History Omeprazole 40 mg PO DAILY 03/29/22 06/05/23 History Torsemide [Demadex] 80 mg PO DAILY 03/29/22 06/05/23 History Midodrine HCl [ProAmatine] 10 mg PO QID 02/14/23 06/05/23 History glipiZIDE [Glucotrol] 10 mg PO AC-BID 02/14/23 06/05/23 History Sucralfate [Carafate] 1 gm PO BID 02/15/23 06/05/23 History Amiodarone [Cordarone] 400 mg PO DAILY 05/10/23 06/05/23 History Docusate [Colace] 100 mg PO BID 05/10/23 06/05/23 History Fludrocortisone [Florinef] 0.1 mg PO DAILY 05/10/23 06/05/23 History Potassium Chloride ER [K-Dur 20] 20 meq PO BID 05/10/23 06/05/23 History Ferrous Sulfate [Feosol] 325 mg PO DAILY 30 Days #60 tab 05/12/23 06/05/23 Rx Allergies Allergy/AdvReac Type Severity Reaction Status Date / Time lisinopril AdvReac Mild Cough Verified 06/05/23 07:46 Physical Exam Vitals: Vital Signs Temp Pulse Resp BP Pulse Ox 06/05/23 11:47 98.4 F 72 16 82/55 96 06/05/23 09:33 98.3 F 95 06/05/23 08:35 78 16 86/54 95 06/05/23 05:11 98.1 F 81 22 95/55 96 06/05/23 03:44 76 20 98/53 97 06/05/23 01:28 97.6 F 77 20 96/64 96 06/04/23 23:00 85 17 93/54 100 06/04/23 21:01 98.9 F 78 18 102/70 99 Intake and Output 06/04/23 06/05/23 06/05/23 22:59 06:59 14:59 Other: Weight 107.32 kg Results - Lab Results Most recent lab results Calcium 8.9 mg/dL (8.4-10.2) 06/04/23 21:44 Magnesium 1.1 mg/dL (1.6-2.3) L 06/04/23 21:44 06/04/23 21:44 06/04/23 21:44 Assessment and Plan Plan: Assessment: 1. End-stage renal disease maintained on peritoneal dialysis. 2. Generalized weakness. 3. Hyponatremia secondary to chronic kidney disease. Hypervolemic. 4. Abdominal pain with elevated white count. Rule out peritonitis. 5. Diabetes mellitus. 6. Chronic systolic CHF with ejection fraction of 35-40% with severe pulmonary hypertension. 7. Persistent A. fib been followed by cardiology. 8. History of permanent pacemaker implantation with generator change in April 2023. Plan: Resume PD exchanges - 2 L every 6 hours at 2.5% solution. Check dialysate for cell count culture and Gram stain. 1 g intraperitoneal vancomycin and ceftazidime today. Follow-up cultures. Check phosphorus level. Hep-Lock IV fluids. Thank you for the consultation. I will continue to follow the patient with you during his hospital stay.
[2023-06-05] MEDS ORDERED: LACTULOSE 20 GM/30 ML CUP PO PRN (14:23)
--- NOTE | 2023-06-05 15:06 | P.GSCN ---
History of Present Illness Consult date: 06/05/23 History of present illness: CHIEF COMPLAINT: Abdominal pain and weakness HISTORY OF PRESENT ILLNESS: This is a 77-year-old male with a known history of end-stage renal disease on peritoneal dialysis. His parent toenail dialysis catheter was placed on 03/30/2022. Patient reports that he's been having diffuse abdominal pain for about one week. Last night the pain worsened. He's been nauseous with no vomiting. He has been having chills. Reports no fever. He reports the dialysis fluid has been clear. The last exchange he reports less fluid being removed. He reports having a small bowel movement yesterday morning. He presented with hypotension and elevated white count at 19.6. There is concerns of possible peritonitis. Peritoneal fluid was sent for culture. He has been started on IV antibiotics. Surgical service has been consulted for abdominal pain and possible peritonitis. Patient has computed tomography scan of the abdomen and pelvis that did reveal abdominal and pelvic ascites with peritoneal dialysis catheter. Small hilar hernia and diverticulosis. No free intraperitoneal air. No diverticulitis and no small bowel obstruction. PAST MEDICAL HISTORY: Atrial Fibrillation, COPD, Diabetes Mellitus, Dialysis, GERD/Reflux, Hyperlipidemia, Hypertension, Osteoarthritis (OA), Renal Disease, Sleep Apnea/CPAP/BIPAP, Thyroid Disorder, on 3 L of O2 at home. Cardiomyopathy, constipation, end-stage renal disease on peritoneal dialysis PAST SURGICAL HISTORY: Bowel resection in 2013 for large benign colon polyp, permanent pacemaker, peritoneal dialysis catheter MEDICATIONS: See below ALLERGIES: See below SOCIAL HISTORY: No illicit drug use. REVIEW OF SYSTEMS: CONSTITUTIONAL: Denies fever or chills. HEENT: Denies blurred vision, vision changes, or eye pain. Denies hemoptysis CARDIOVASCULAR: Denies chest pain or pressure. RESPIRATORY: No shortness of breath. GASTROINTESTINAL: See HPI for pertinent findings HEMATOLOGIC: Denies bleeding disorders. GENITOURINARY: Denies any blood in urine or increased urinary frequency. SKIN: Denies pruitis. Denies rash. PHYSICAL EXAM: VITAL SIGNS: Reviewed GENERAL: Well-developed in no acute distress. ABDOMEN: Soft. Nondistended. Diffuse tenderness with palpation of the abdome n. More tender on the right side of the abdomen. Peritoneal dialysis catheter noted on the right and is clean dry and intact. Abdominal discomfort with moving the bed NEUROLOGIC: Alert and oriented. Cranial nerves II through XII grossly intact. LABORATORY DATA: WBC 19.6 Hgb 11.6 platelets 299 Sodium 126 potassium is 4.5 creatinine 4.71 Magnesium 1.1 CRP 20.5 BNP 10,000 Total bili 0.7 AST 22 ALT 18 alk phos 137 lipase 198 Troponin 0.050 IMAGING: computed tomography scan of the abdomen and pelvis that did reveal abdominal and pelvic ascites with peritoneal dialysis catheter. Small hilar hernia and diverticulosis. No free intraperitoneal air. No diverticulitis and no small bowel obstruction. Chest x-ray trace bilateral pleural effusion ASSESSMENT: 1. Abdominal pain with leukocytosis and hypotension. Concerns of possible peritonitis 2. End-stage renal disease on peritoneal dialysis 3. History of cardiomyopathy EF of 35-40% and severe pulmonary hypertension 4. History of atrial fibrillation not on anticoagulation 5. History of permanent pacemaker 6. Diabetes mellitus PLAN: -Further recommendations forthcoming per surgeon -Continue antibiotics -Follow up on peritoneal dialysis fluid culture results -Repeat CBC in a.m. -Fluid management per nephrology and medicine service -Continue pain management -Continue antiemetics as needed Thank you for this consultation Physician Insulation Worker note has been reviewed by physician. Signing provider agrees with the documented findings, assessment, and plan of care. Past Medical History Past Medical History: Atrial Fibrillation, COPD, Diabetes Mellitus, Dialysis, GERD/Reflux, Hyperlipidemia, Hypertension, Osteoarthritis (OA), Renal Disease, Sleep Apnea/CPAP/BIPAP, Thyroid Disorder Additional Past Medical History / Comment(s): O2 3L per nasal cannula. Dialysis MOWEFR. Cardiomyopathy. Gout. Constipation. 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 hemodialysis cath, peritoneal dialysis Past Anesthesia/Blood Transfusion Reactions: No Reported Reaction Type of Cardiac Device: Permanent Pacemaker Device Placement Date:: 10/17/2012 Past Psychological History: No Psychological Hx Reported Smoking Status: Former smoker Past Alcohol Use History: None Reported Past Drug Use History: None Reported - Past Family History Father History Unknown: Yes Additional Family Medical History / Comment(s): "hardening of the arteries" Mother History Unknown: Yes Additional Family Medical History / Comment(s): "water in the lungs" at 95. Medications and Allergies Home Medications Medication Instructions Recorded Confirmed Type allopurinoL [Zyloprim] 300 mg PO DAILY 11/21/14 06/05/23 History Acetaminophen Tab [Tylenol] 650 mg PO BID 07/12/16 06/05/23 History Multivitamins, Thera [Multivitamin 1 tab PO DAILY 10/03/17 06/05/23 History (formulary)] Lovastatin [Altoprev] 40 mg PO HS 05/24/21 06/05/23 History Aspirin [Adult Low Dose Aspirin EC] 81 mg PO DAILY 03/29/22 06/05/23 History Lactulose 2 tsp PO DAILY 03/29/22 06/05/23 History Omeprazole 40 mg PO DAILY 03/29/22 06/05/23 History Torsemide [Demadex] 80 mg PO DAILY 03/29/22 06/05/23 History Midodrine HCl [ProAmatine] 10 mg PO QID 02/14/23 06/05/23 History glipiZIDE [Glucotrol] 10 mg PO AC-BID 02/14/23 06/05/23 History Sucralfate [Carafate] 1 gm PO BID 02/15/23 06/05/23 History Amiodarone [Cordarone] 400 mg PO DAILY 05/10/23 06/05/23 History Docusate [Colace] 100 mg PO BID 05/10/23 06/05/23 History Fludrocortisone [Florinef] 0.1 mg PO DAILY 05/10/23 06/05/23 History Potassium Chloride ER [K-Dur 20] 20 meq PO BID 05/10/23 06/05/23 History Ferrous Sulfate [Feosol] 325 mg PO DAILY 30 Days #60 tab 05/12/23 06/05/23 Rx Allergies Allergy/AdvReac Type Severity Reaction Status Date / Time lisinopril AdvReac Mild Cough Verified 06/05/23 07:46 Surgical - Exam Vital Signs Temp Pulse Resp BP Pulse Ox 98.9 F 78 18 102/70 99 06/04/23 21:01 06/04/23 21:01 06/04/23 21:01 06/04/23 21:01 06/04/23 21:01 Results - Labs 06/04/23 21:44 06/04/23 21:44 Abnormal Lab Results - Last 24 Hours (Table) 06/04/23 06/04/23 06/04/23 Range/Units 21:44 21:44 21:44 WBC 19.6 H (3.8-10.6) k/uL RBC 3.69 L (4.30-5.90) m/uL Hgb 11.6 L (13.0-17.5) gm/dL Hct 35.9 L (39.0-53.0) % RDW 18.7 H (11.5-15.5) % Neutrophils # 17.4 H (1.3-7.7) k/uL Sodium 126 L (137-145) mmol/L Chloride 88 L (98-107) mmol/L Carbon Dioxide 21 L (22-30) mmol/L BUN 48 H (9-20) mg/dL Creatinine 4.71 H (0.66-1.25) mg/dL Glucose 148 H (74-99) mg/dL POC Glucose (mg/dL) (70-110) mg/dL Magnesium 1.1 L (1.6-2.3) mg/dL Alkaline Phosphatase 137 H (38-126) U/L Troponin I 0.050 H* (0.000-0.034) ng/mL C-Reactive Protein (<1.0) mg/dL 06/05/23 06/05/23 Range/Units 07:57 10:56 WBC (3.8-10.6) k/uL RBC (4.30-5.90) m/uL Hgb (13.0-17.5) gm/dL Hct (39.0-53.0) % RDW (11.5-15.5) % Neutrophils # (1.3-7.7) k/uL Sodium (137-145) mmol/L Chloride (98-107) mmol/L Carbon Dioxide (22-30) mmol/L BUN (9-20) mg/dL Creatinine (0.66-1.25) mg/dL Glucose (74-99) mg/dL POC Glucose (mg/dL) 141 H (70-110) mg/dL Magnesium (1.6-2.3) mg/dL Alkaline Phosphatase (38-126) U/L Troponin I (0.000-0.034) ng/mL C-Reactive Protein 20.5 H (<1.0) mg/dL Diabetes panel 06/04/23 Range/Units 21:44 Sodium 126 L (137-145) mmol/L Potassium 4.5 (3.5-5.1) mmol/L Chloride 88 L (98-107) mmol/L Carbon Dioxide 21 L (22-30) mmol/L BUN 48 H (9-20) mg/dL Creatinine 4.71 H (0.66-1.25) mg/dL Glucose 148 H (74-99) mg/dL Calcium 8.9 (8.4-10.2) mg/dL AST 22 (17-59) U/L ALT 18 (4-49) U/L Alkaline Phosphatase 137 H (38-126) U/L Total Protein 7.0 (6.3-8.2) g/dL Albumin 3.5 (3.5-5.0) g/dL Calcium panel 06/04/23 Range/Units 21:44 Calcium 8.9 (8.4-10.2) mg/dL Albumin 3.5 (3.5-5.0) g/dL Pituitary panel 06/04/23 Range/Units 21:44 Sodium 126 L (137-145) mmol/L Potassium 4.5 (3.5-5.1) mmol/L Chloride 88 L (98-107) mmol/L Carbon Dioxide 21 L (22-30) mmol/L BUN 48 H (9-20) mg/dL Creatinine 4.71 H (0.66-1.25) mg/dL Glucose 148 H (74-99) mg/dL Calcium 8.9 (8.4-10.2) mg/dL Adrenal panel 06/04/23 Range/Units 21:44 Sodium 126 L (137-145) mmol/L Potassium 4.5 (3.5-5.1) mmol/L Chloride 88 L (98-107) mmol/L Carbon Dioxide 21 L (22-30) mmol/L BUN 48 H (9-20) mg/dL Creatinine 4.71 H (0.66-1.25) mg/dL Glucose 148 H (74-99) mg/dL Calcium 8.9 (8.4-10.2) mg/dL Total Bilirubin 0.7 (0.2-1.3) mg/dL AST 22 (17-59) U/L ALT 18 (4-49) U/L Alkaline Phosphatase 137 H (38-126) U/L Total Protein 7.0 (6.3-8.2) g/dL Albumin 3.5 (3.5-5.0) g/dL
[2023-06-05] MEDS ORDERED: DIALYSIS (PERIT 1.5%) 2,000 ML 30 G/2,000 ML BAG INTRAPERIT SCH (16:00)
[2023-06-05 16:24] LABS: Glucose,Whole Blood 238 mg/dL (70-110)
[2023-06-05 18:07] LABS: Glucose,Whole Blood 188 mg/dL (70-110)
[2023-06-05] MEDS: DIALYSIS (PERIT 2.5%) 2,500 ML 50 G/2,000 ML BAG INTRAPERIT SCH (18:09)
[2023-06-05] MEDS: HEPARIN SODIUM,PORCINE 5,000 UNIT/ML 1 ML VIAL SQ SCH (20:42)
--- NOTE | 2023-06-05 21:13 | P.CONS ---
History of Present Illness - Reason for Consult Consult date: 06/05/23 - History of Present Illness Patient is a 77-year-old male with a past medical history significant for atrial fibrillation diabetes mellitus hypertension hyperlipidemia end-stage renal disease currently on peritoneal dialysis presenting to the hospital for evaluation of abdominal pain that apparently has been getting worse for the last week or so pain has been mostly lower abdominal area describing to be sharp moderate to severe intensity without radiation with associated nausea no vomiting did have some constipation denies any cloudy peritoneal fluid denies high-grade fever did have some chills with the symptoms the patient has been evaluated from presentation to the hospital the patient was afebrile patient was not tachycardic mild hypoxemia requiring supplemental oxygen he did have a white count 19.6 with a left shift elevated BUN/creatinine troponin was elevated mildly, liver enzymes normal amylase lipase was normal, patient did have a CT of abdominal pelvis abdominal pelvic ascites peritoneal dialysis catheter small hiatal hernia diverticulosis without diverticulitis with concern for PD catheter respiratory peritonitis patient was started on vancomycin and Fortaz infectious he was consulted for further management of antibiotic therapy, patient did have dialysate fluid culture positive for staph epi on 05/10/2023 that was oxacillin resistant however the patient not very clear if he has received any antibiotics Past Medical History Past Medical History: Atrial Fibrillation, COPD, Diabetes Mellitus, Dialysis, GERD/Reflux, Hyperlipidemia, Hypertension, Osteoarthritis (OA), Renal Disease, Sleep Apnea/CPAP/BIPAP, Thyroid Disorder Additional Past Medical History / Comment(s): O2 3L per nasal cannula. Dialysis MOWEFR. Cardiomyopathy. Gout. Constipation. 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 hemodialysis cath, peritoneal dialysis Past Anesthesia/Blood Transfusion Reactions: No Reported Reaction Type of Cardiac Device: Permanent Pacemaker Device Placement Date:: 10/17/2012 Past Psychological History: No Psychological Hx Reported Smoking Status: Former smoker Past Alcohol Use History: None Reported Past Drug Use History: None Reported - Past Family History Father History Unknown: Yes Additional Family Medical History / Comment(s): "hardening of the arteries" Mother History Unknown: Yes Additional Family Medical History / Comment(s): "water in the lungs" at 95. Medications and Allergies Home Medications Medication Instructions Recorded Confirmed Type allopurinoL [Zyloprim] 300 mg PO DAILY 11/21/14 06/05/23 History Acetaminophen Tab [Tylenol] 650 mg PO BID 07/12/16 06/05/23 History Multivitamins, Thera [Multivitamin 1 tab PO DAILY 10/03/17 06/05/23 History (formulary)] Lovastatin [Altoprev] 40 mg PO HS 05/24/21 06/05/23 History Aspirin [Adult Low Dose Aspirin EC] 81 mg PO DAILY 03/29/22 06/05/23 History Lactulose 2 tsp PO DAILY 03/29/22 06/05/23 History Omeprazole 40 mg PO DAILY 03/29/22 06/05/23 History Torsemide [Demadex] 80 mg PO DAILY 03/29/22 06/05/23 History Midodrine HCl [ProAmatine] 10 mg PO QID 02/14/23 06/05/23 History glipiZIDE [Glucotrol] 10 mg PO AC-BID 02/14/23 06/05/23 History Sucralfate [Carafate] 1 gm PO BID 02/15/23 06/05/23 History Amiodarone [Cordarone] 400 mg PO DAILY 05/10/23 06/05/23 History Docusate [Colace] 100 mg PO BID 05/10/23 06/05/23 History Fludrocortisone [Florinef] 0.1 mg PO DAILY 05/10/23 06/05/23 History Potassium Chloride ER [K-Dur 20] 20 meq PO BID 05/10/23 06/05/23 History Ferrous Sulfate [Feosol] 325 mg PO DAILY 30 Days #60 tab 05/12/23 06/05/23 Rx Allergies Allergy/AdvReac Type Severity Reaction Status Date / Time lisinopril AdvReac Mild Cough Verified 06/05/23 07:46 Physical Exam Vitals: Vital Signs Temp Pulse Resp BP Pulse Ox 06/05/23 09:33 98.3 F 95 06/05/23 08:35 78 16 86/54 95 06/05/23 05:11 98.1 F 81 22 95/55 96 06/05/23 03:44 76 20 98/53 97 06/05/23 01:28 97.6 F 77 20 96/64 96 06/04/23 23:00 85 17 93/54 100 06/04/23 21:01 98.9 F 78 18 102/70 99 Intake and Output 06/04/23 06/05/23 06/05/23 22:59 06:59 14:59 Other: Weight 107.32 kg Results CBC & Chem 7: 06/04/23 21:44 06/04/23 21:44 Labs: Abnormal Lab Results - Last 24 Hours (Table) 06/04/23 06/04/23 06/04/23 Range/Units 21:44 21:44 21:44 WBC 19.6 H (3.8-10.6) k/uL RBC 3.69 L (4.30-5.90) m/uL Hgb 11.6 L (13.0-17.5) gm/dL Hct 35.9 L (39.0-53.0) % RDW 18.7 H (11.5-15.5) % Neutrophils # 17.4 H (1.3-7.7) k/uL Sodium 126 L (137-145) mmol/L Chloride 88 L (98-107) mmol/L Carbon Dioxide 21 L (22-30) mmol/L BUN 48 H (9-20) mg/dL Creatinine 4.71 H (0.66-1.25) mg/dL Glucose 148 H (74-99) mg/dL POC Glucose (mg/dL) (70-110) mg/dL Magnesium 1.1 L (1.6-2.3) mg/dL Alkaline Phosphatase 137 H (38-126) U/L Troponin I 0.050 H* (0.000-0.034) ng/mL 06/05/23 Range/Units 07:57 WBC (3.8-10.6) k/uL RBC (4.30-5.90) m/uL Hgb (13.0-17.5) gm/dL Hct (39.0-53.0) % RDW (11.5-15.5) % Neutrophils # (1.3-7.7) k/uL Sodium (137-145) mmol/L Chloride (98-107) mmol/L Carbon Dioxide (22-30) mmol/L BUN (9-20) mg/dL Creatinine (0.66-1.25) mg/dL Glucose (74-99) mg/dL POC Glucose (mg/dL) 141 H (70-110) mg/dL Magnesium (1.6-2.3) mg/dL Alkaline Phosphatase (38-126) U/L Troponin I (0.000-0.034) ng/mL Assessment and Plan Plan: 1patient presented to hospital with abdominal pain in this patient with a history of end-stage renal disease on peritoneal dialysis concerning for PD catheter associated peritonitis patient did have elevated white count no fever CT abdominal pelvis did show ascites but no other abnormality patient did have a peritoneal dialysis fluid culture positive for staph epi on 05/10/2023, could be likely the same pathogen 2-we will wait for the PD catheter fluid cell count differential and culture 3-vancomycin intraperitoneally has been ordered and will be continued while waiting for the culture to finalize We will follow on clinical condition and cultures to further adjust medication if needed Thank you for this consultation we will follow the patient along with you Dictation was produced using [employer] dictation software. please excuse any grammatical, word or spelling errors. Time with Patient: Greater than 30
[2023-06-06 00:01] LABS: Glucose,Whole Blood 137 mg/dL (70-110)
[2023-06-06] MEDS: INSULIN ASPART (NovoLOG) 100 UNIT/ML VIAL SQ SCH ×5 (00:14→23:59)
[2023-06-06 00:27] LABS: Appearance,BF Clear (Clear)
[2023-06-06] MEDS: MIDODRINE 5 MG TAB PO SCH ×5 (00:42→20:20)
[2023-06-06] MEDS: DIALYSIS (PERIT 2.5%) 2,500 ML 50 G/2,000 ML BAG INTRAPERIT SCH ×4 (00:57→23:51)
[2023-06-06] MEDS ORDERED: VANCOMYCIN 1,250 MG in DIALYSIS (PERITONL) DEX 2.5% 2,000 ML INTRAPERIT SCH (06:00)
[2023-06-06 06:03] LABS: Glucose,Whole Blood 144 mg/dL (70-110)
[2023-06-06] MEDS: cefTAZidime 1.25 GM in DIALYSIS (PERITONL) DEX 2.5% 2,000 ML INTRAPERIT SCH (06:07)
[2023-06-06 07:57] LABS: Anisocytosis Slight; Basophils % (A) 0 %; Eosinophils # (A) 0.2 k/uL (0-0.7); Eosinophils % (A) 2 %; HCT 32.1 % (39.0-53.0); HGB 10.4 gm/dL (13.0-17.5); Hypochromasia Slight; Lymphocytes # (A) 1.4 k/uL (1.0-4.8); Lymphocytes % (A) 10 %; MCH 32.1 pg (25.0-35.0); MCHC 32.5 g/dL (31.0-37.0); MCV 98.9 fL (80.0-100.0); Macrocytosis Slight; Mean Platelet Volume 7.2; Monocytes # (A) 0.3 k/uL (0-1.0); Monocytes % (A) 2 %; Neutrophils % (A) 86 %; Platelet Count 279 k/uL (150-450); RBC 3.25 m/uL (4.30-5.90); RDW 18.1 % (11.5-15.5); WBC 15.1 k/uL (3.8-10.6)
[2023-06-06 08:10] LABS: ALT 15 U/L (4-49); AST 22 U/L (17-59); African American GFR (CKD) 12 (>60 ml/min/1.73 sqM); Alkaline Phosphatase 110 U/L (38-126); Anion Gap 19 mmol/L; Blood Urea Nitrogen 53 mg/dL (9-20); Calcium 8.9 mg/dL (8.4-10.2); Carbon Dioxide 18 mmol/L (22-30); Chloride 91 mmol/L (98-107); Glucose 152 mg/dL (74-99); Magnesium 1.6 mg/dL (1.6-2.3); Non-African American GFR(CKD) 10 (>60 ml/min/1.73 sqM); Phosphorus 5.6 mg/dL (2.5-4.5); Potassium 4.2 mmol/L (3.5-5.1); Sodium 128 mmol/L (137-145); Total Bilirubin 0.6 mg/dL (0.2-1.3); Total Protein 6.3 g/dL (6.3-8.2)
[2023-06-06] MEDS: ACETAMINOPHEN TAB 500 MG TAB PO PRN ×2 (08:26→20:20)
[2023-06-06] MEDS: HEPARIN SODIUM,PORCINE 5,000 UNIT/ML 1 ML VIAL SQ SCH ×2 (08:27→20:21)
[2023-06-06] MEDS: allopurinoL 300 MG TAB PO SCH (08:27)
[2023-06-06] MEDS: FERROUS SULFATE 325 MG TAB PO SCH (08:27)
[2023-06-06] MEDS: SUCRALFATE 1 GM TAB PO SCH ×2 (08:27→20:21)
[2023-06-06] MEDS: DOCUSATE 100 MG CAP PO SCH ×2 (08:27→20:21)
[2023-06-06] MEDS: PANTOPRAZOLE 40 MG/10 ML VIAL IVP SCH (08:27)
[2023-06-06] MEDS: ASPIRIN 81 MG PO SCH (08:27)
[2023-06-06] MEDS: AMIODARONE 200 MG TAB PO SCH (08:27)
[2023-06-06] MEDS ORDERED: AMIODARONE 200 MG TAB PO SCH (09:00)
--- NOTE | 2023-06-06 11:18 | P.PN ---
Subjective Patient is seen in follow-up for end-stage renal disease. He is maintained on peritoneal dialysis. No problems with PD exchanges. Vital signs are stable. General: No acute distress. HEENT: Head exam is unremarkable. LUNGS: No audible rhonchi or wheezes. HEART: Rate and Rhythm are regular. ABDOMEN: Obese, nontender. EXTREMITITES: No edema. Chronic changes noted. Objective - Vital Signs Vital signs: Vital Signs Temp 97.3 F L 06/06/23 08:23 Pulse 69 06/06/23 08:26 Resp 18 06/06/23 08:26 BP 99/62 06/06/23 08:23 Pulse Ox 98 06/06/23 08:23 FiO2 Intake & Output 06/05/23 06/06/23 06/06/23 18:59 06:59 18:59 Intake Total 240 Balance 240 Weight 107.32 kg Intake: Oral 240 Other: Voiding Method Bedside Commode Bedside Commode Urinal Urinal Diaper Diaper # Voids 1 # Bowel Movements 1 - Labs CBC & Chem 7: 06/06/23 07:33 06/06/23 07:33 Labs: Abnormal Lab Results - Last 24 Hours (Table) 06/05/23 06/05/23 06/05/23 Range/Units 10:56 10:56 16:22 WBC (3.8-10.6) k/uL RBC (4.30-5.90) m/uL Hgb (13.0-17.5) gm/dL Hct (39.0-53.0) % RDW (11.5-15.5) % Neutrophils # (1.3-7.7) k/uL Sodium (137-145) mmol/L Chloride (98-107) mmol/L Carbon Dioxide (22-30) mmol/L BUN (9-20) mg/dL Creatinine (0.66-1.25) mg/dL Glucose (74-99) mg/dL POC Glucose (mg/dL) 238 H (70-110) mg/dL Phosphorus (2.5-4.5) mg/dL C-Reactive Protein 20.5 H (<1.0) mg/dL Albumin (3.5-5.0) g/dL Procalcitonin 1.99 H (0.02-0.09) ng/mL 11/06/05/23 06/06/23 Range/Units 17:55 23:58 06:02 WBC (3.8-10.6) k/uL RBC (4.30-5.90) m/uL Hgb (13.0-17.5) gm/dL Hct (39.0-53.0) % RDW (11.5-15.5) % Neutrophils # (1.3-7.7) k/uL Sodium (137-145) mmol/L Chloride (98-107) mmol/L Carbon Dioxide (22-30) mmol/L BUN (9-20) mg/dL Creatinine (0.66-1.25) mg/dL Glucose (74-99) mg/dL POC Glucose (mg/dL) 188 H 137 H 144 H (70-110) mg/dL Phosphorus (2.5-4.5) mg/dL C-Reactive Protein (<1.0) mg/dL Albumin (3.5-5.0) g/dL Procalcitonin (0.02-0.09) ng/mL 06/06/23 06/06/23 Range/Units 07:33 07:33 WBC 15.1 H (3.8-10.6) k/uL RBC 3.25 L (4.30-5.90) m/uL Hgb 10.4 L (13.0-17.5) gm/dL Hct 32.1 L (39.0-53.0) % RDW 18.1 H (11.5-15.5) % Neutrophils # 13.0 H (1.3-7.7) k/uL Sodium 128 L (137-145) mmol/L Chloride 91 L (98-107) mmol/L Carbon Dioxide 18 L (22-30) mmol/L BUN 53 H (9-20) mg/dL Creatinine 5.00 H (0.66-1.25) mg/dL Glucose 152 H (74-99) mg/dL POC Glucose (mg/dL) (70-110) mg/dL Phosphorus 5.6 H (2.5-4.5) mg/dL C-Reactive Protein (<1.0) mg/dL Albumin 3.0 L (3.5-5.0) g/dL Procalcitonin (0.02-0.09) ng/mL Microbiology - Last 24 Hours (Table) 06/05/23 12:16 Gram Stain - Preliminary Dialysate Body Fluid Culture - Preliminary Assessment and Plan Plan: Assessment: 1. End-stage renal disease maintained on peritoneal dialysis. 2. Generalized weakness. 3. Hyponatremia secondary to chronic kidney disease. Hypervolemic. Better. 4. PD associated peritonitis. WBC count 1775-96% PMNs stated 06/05/2023. 5. Diabetes mellitus. 6. Chronic systolic CHF with ejection fraction of 35-40% with severe pulmonary hypertension. 7. Persistent A. fib been followed by cardiology. 8. History of permanent pacemaker implantation with generator change in April 2023. 9. Chronic kidney disease mineral bone disease. Phosphorus level 5.6. Plan: Maintain PD exchanges - 2.5 L every 6 hours at 2.5% solution. Repeat dialysate for cell count culture and Gram stain. Started on intraperitoneal antibiotics on 06/05/2023. Receiving intraperitoneal Fortaz daily. Follow-up cultures. Add PhosLo with meals. Patient is considering transitioning to hemodialysis. He will see vascular surgery outpatient for a fistula creation. If he wishes to transition to hemodialysis now, he will need a permacath placed. He will discuss with his .
--- NOTE | 2023-06-06 11:41 | P.PN ---
Subjective Progress Note Date: 06/06/23 Principal diagnosis: Reason for follow-up is peritoneal dialysis associated peritonitis Patient is a 77-year-old male with a past medical history significant for atrial fibrillation diabetes mellitus hypertension hyperlipidemia end-stage renal disease currently on peritoneal dialysis presenting to the hospital for evaluation of abdominal pain, patient has been diagnosed with a PD catheter assisted peritonitis. On today's evaluation that is 06/06/2023, the patient continues to be afebrile , the patient is breathing comfortably on room air and no need for supplemental oxygen, the patient denies chest pain shortness of breath or cough , patient denies nausea/vomiting, abdominal pain has decreased in intensity Patient did have a white count of 15.1, creatinine 5.0, peritoneal fluid with a white count of 1775 cultures are pending Objective - Vital Signs Vital signs: Vital Signs Temp 97.3 F L 06/06/23 08:23 Pulse 69 06/06/23 08:26 Resp 18 06/06/23 08:26 BP 99/62 06/06/23 08:23 Pulse Ox 98 06/06/23 08:23 FiO2 Intake & Output 06/05/23 06/06/23 06/06/23 18:59 06:59 18:59 Intake Total 240 Balance 240 Weight 107.32 kg Intake: Oral 240 Other: Voiding Method Bedside Commode Bedside Commode Urinal Urinal Diaper Diaper # Voids 1 # Bowel Movements 1 - Exam GENERAL DESCRIPTION: An elderly male lying in bed in no distress RESPIRATORY SYSTEM: Unlabored breathing , clear to auscultation anteriorly HEART: S1 S2 regular rate and rhythm , ABDOMEN: Soft , mild distention and tenderness EXTREMITIES: No edema feet - Labs CBC & Chem 7: 06/06/23 07:33 06/06/23 07:33 Labs: Abnormal Lab Results - Last 24 Hours (Table) 06/05/23 06/05/23 06/05/23 Range/Units 10:56 10:56 16:22 WBC (3.8-10.6) k/uL RBC (4.30-5.90) m/uL Hgb (13.0-17.5) gm/dL Hct (39.0-53.0) % RDW (11.5-15.5) % Neutrophils # (1.3-7.7) k/uL Sodium (137-145) mmol/L Chloride (98-107) mmol/L Carbon Dioxide (22-30) mmol/L BUN (9-20) mg/dL Creatinine (0.66-1.25) mg/dL Glucose (74-99) mg/dL POC Glucose (mg/dL) 238 H (70-110) mg/dL Phosphorus (2.5-4.5) mg/dL C-Reactive Protein 20.5 H (<1.0) mg/dL Albumin (3.5-5.0) g/dL Procalcitonin 1.99 H (0.02-0.09) ng/mL 06/05/23 06/05/23 06/06/23 Range/Units 17:55 23:58 06:02 WBC (3.8-10.6) k/uL RBC (4.30-5.90) m/uL Hgb (13.0-17.5) gm/dL Hct (39.0-53.0) % RDW (11.5-15.5) % Neutrophils # (1.3-7.7) k/uL Sodium (137-145) mmol/L Chloride (98-107) mmol/L Carbon Dioxide (22-30) mmol/L BUN (9-20) mg/dL Creatinine (0.66-1.25) mg/dL Glucose (74-99) mg/dL POC Glucose (mg/dL) 188 H 137 H 144 H (70-110) mg/dL Phosphorus (2.5-4.5) mg/dL C-Reactive Protein (<1.0) mg/dL Albumin (3.5-5.0) g/dL Procalcitonin (0.02-0.09) ng/mL 06/06/23 06/06/23 Range/Units 07:33 07:33 WBC 15.1 H (3.8-10.6) k/uL RBC 3.25 L (4.30-5.90) m/uL Hgb 10.4 L (13.0-17.5) gm/dL Hct 32.1 L (39.0-53.0) % RDW 18.1 H (11.5-15.5) % Neutrophils # 13.0 H (1.3-7.7) k/uL Sodium 128 L (137-145) mmol/L Chloride 91 L (98-107) mmol/L Carbon Dioxide 18 L (22-30) mmol/L BUN 53 H (9-20) mg/dL Creatinine 5.00 H (0.66-1.25) mg/dL Glucose 152 H (74-99) mg/dL POC Glucose (mg/dL) (70-110) mg/dL Phosphorus 5.6 H (2.5-4.5) mg/dL C-Reactive Protein (<1.0) mg/dL Albumin 3.0 L (3.5-5.0) g/dL Procalcitonin (0.02-0.09) ng/mL Microbiology - Last 24 Hours (Table) 06/05/23 12:16 Gram Stain - Preliminary Dialysate Body Fluid Culture - Preliminary Assessment and Plan (1) Dialysis-associated peritonitis Current Visit: Yes Status: Acute Code(s): T85.71XA - INFECT/INFLM REACTION DUE TO PERITON DIALYSIS CATHETER, INIT SNOMED Code(s): 110693065 (2) Leukocytosis Current Visit: No Status: Acute Code(s): D72.829 - ELEVATED WHITE BLOOD CELL COUNT, UNSPECIFIED SNOMED Code(s): 262033063 Plan: 1patient presented to hospital with abdominal pain in this patient with a h istory of end-stage renal disease on peritoneal dialysis concerning for PD catheter associated peritonitis patient did have elevated white count no fever CT abdominal pelvis did show ascites but no other abnormality patient did have a peritoneal dialysis fluid culture positive for staph epi on 05/10/2023, could be likely the same pathogen 2-peritoneal peritoneal Fluid cell count cell count of 1775 culture are currently pending 3-patient to continue with vancomycin intraperitoneally along with Fortaz while waiting for the culture to finalize Dictation was produced using [employer] dictation software. please excuse any grammatical, word or spelling errors. Time with Patient: Less than 30
[2023-06-06 12:00] LABS: Glucose,Whole Blood 135 mg/dL (70-110)
[2023-06-06] MEDS: CALCIUM ACETATE 667 MG TAB PO SCH ×2 (12:06→18:13)
--- NOTE | 2023-06-06 12:20 | P.PN ---
Subjective HISTORY OF PRESENT ILLNESS: This is a 77-year-old male with a past medical history significant for end-stage renal disease on peritoneal dialysis, congestive heart failure, persistent atrial fibrillation, hypertension, diabetes, and permanent pacemaker implantation. Patient follows in the office with Dr. Witt. We have been asked to see the patient in consultation for chest pain. Patient examined at the bedside in the emergency room. Patient presented to the hospital with a chief complaint of abdominal pain and generalized weakness. The patient denies having any chest pain yesterday or today. He denies any shortness of breath. The patient is continuing to have abdominal pain at the time of examination. Cheryl mercedes is hypotensive this morning with a blood pressure of 86/54. White count was noted to be elevated at 19.6. * EKG reveals paced rhythm with underlying atrial fibrillation * Chest xray trace bilateral pleural effusions * Laboratory data: WBC 19.6. BUN 48. Creatinine 4.71. Troponin 0.050. * Current home cardiac medications include Demadex 80 mg daily, aspirin 81 mg daily, and amiodarone 40 mg daily * Most recent echocardiogram obtained in February 2023 revealed ejection fraction 35-40%, severe pulmonary hypertension, mild mitral regurgitation, mild tricuspid regurgitation * Patient underwent Marichuy scan stress test in November 2020 which was negative for ischemia * It is noted that patient underwent generator change on 05/11/2023 06/06/2023 Patient examined this morning at the bedside. Patient denies chest pain or pressure. He denies shortness of breath. He continues to report abdominal pain and is currently rating at 6/10. The patient has been started on intraperitoneal antibiotics for peritonitis. PHYSICAL EXAM: VITAL SIGNS: Reviewed. GENERAL: Well-developed in no acute distress. HEENT: Head is normocephalic. Pupils are equal, round. Sclerae anicteric. Mucous membranes of the mouth are moist. Neck supple. No JVD or thyromegaly LUNGS: Respirations even and unlabored. Lungs essentially clear to auscultation bilaterally. HEART: Regular rate and rhythm. S1 and S2 heard. ABDOMEN: Soft. Nondistended. Tenderness upon palpation EXTREMITIES: Normal range of motion. No clubbing or cyanosis. Peripheral pulses intact. No lower extremity edema NEUROLOGIC: Awake and alert. Oriented x 3. ASSESSMENT: Generalized weakness Abdominal pain with leukocytosis Peritoneal dialysis associated peritonitis Hypotension End-stage renal disease on peritoneal dialysis Chronic congestive heart failure with reduced EF, 35-40% Severe pulmonary hypertension Persistent atrial fibrillation Hypertension Diabetes History of permanent pacemaker implantation with generator change in April 2023 PLAN: Continue current cardiac medications Continue antibiotics per infectious disease and nephrology Patient is currently stable from a cardiac perspective Further recommendations pending patient's course Nurse practitioner note has been reviewed by physician. Signing provider agrees with the documented findings, assessment, and plan of care. Objective - Vital Signs Vital signs: Vital Signs Temp 97.3 F L 06/06/23 08:23 Pulse 69 06/06/23 08:26 Resp 18 06/06/23 08:26 BP 99/62 06/06/23 08:23 Pulse Ox 98 06/06/23 08:23 FiO2 Intake & Output 06/05/23 06/06/23 06/06/23 18:59 06:59 18:59 Intake Total 240 Balance 240 Weight 107.32 kg Intake: Oral 240 Other: Voiding Method Bedside Commode Bedside Commode Urinal Urinal Diaper Diaper # Voids 1 # Bowel Movements 1 - Labs CBC & Chem 7: 06/06/23 07:33 06/06/23 07:33 Labs: Abnormal Lab Results - Last 24 Hours (Table) 06/05/23 06/05/23 06/05/23 Range/Units 10:56 16:22 17:55 WBC (3.8-10.6) k/uL RBC (4.30-5.90) m/uL Hgb (13.0-17.5) gm/dL Hct (39.0-53.0) % RDW (11.5-15.5) % Neutrophils # (1.3-7.7) k/uL Sodium (137-145) mmol/L Chloride (98-107) mmol/L Carbon Dioxide (22-30) mmol/L BUN (9-20) mg/dL Creatinine (0.66-1.25) mg/dL Glucose (74-99) mg/dL POC Glucose (mg/dL) 238 H 188 H (70-110) mg/dL Phosphorus (2.5-4.5) mg/dL Albumin (3.5-5.0) g/dL Procalcitonin 1.99 H (0.02-0.09) ng/mL 06/05/23 06/06/23 06/06/23 Range/Units 23:58 06:02 07:33 WBC 15.1 H (3.8-10.6) k/uL RBC 3.25 L (4.30-5.90) m/uL Hgb 10.4 L (13.0-17.5) gm/dL Hct 32.1 L (39.0-53.0) % RDW 18.1 H (11.5-15.5) % Neutrophils # 13.0 H (1.3-7.7) k/uL Sodium (137-145) mmol/L Chloride (98-107) mmol/L Carbon Dioxide (22-30) mmol/L BUN (9-20) mg/dL Creatinine (0.66-1.25) mg/dL Glucose (74-99) mg/dL POC Glucose (mg/dL) 137 H 144 H (70-110) mg/dL Phosphorus (2.5-4.5) mg/dL Albumin (3.5-5.0) g/dL Procalcitonin (0.02-0.09) ng/mL 06/06/23 06/06/23 Range/Units 07:33 11:58 WBC (3.8-10.6) k/uL RBC (4.30-5.90) m/uL Hgb (13.0-17.5) gm/dL Hct (39.0-53.0) % RDW (11.5-15.5) % Neutrophils # (1.3-7.7) k/uL Sodium 128 L (137-145) mmol/L Chloride 91 L (98-107) mmol/L Carbon Dioxide 18 L (22-30) mmol/L BUN 53 H (9-20) mg/dL Creatinine 5.00 H (0.66-1.25) mg/dL Glucose 152 H (74-99) mg/dL POC Glucose (mg/dL) 135 H (70-110) mg/dL Phosphorus 5.6 H (2.5-4.5) mg/dL Albumin 3.0 L (3.5-5.0) g/dL Procalcitonin (0.02-0.09) ng/mL Microbiology - Last 24 Hours (Table) 06/05/23 12:16 Gram Stain - Preliminary Dialysate Body Fluid Culture - Preliminary
--- NOTE | 2023-06-06 14:50 | P.PN ---
Subjective Progress Note Date: 06/06/23 CHIEF COMPLAINT: Abdominal pain HISTORY OF PRESENT ILLNESS: Patient reports his abdominal pain is about the same. He does report nausea. Denies any vomiting. Afebrile. He is on intraperitoneal antibiotics for peritonitis. WBC is down from 19.6-15.1 Hgb 10.4 sodium 128. WBC count elevated in peritoneal fluid PHYSICAL EXAM: VITAL SIGNS: Reviewed. GENERAL: Well-developed in no acute distress. ABDOMEN: Soft. Nondistended. Diffuse tenderness but more so on the right side of abdomen NEUROLOGIC: Alert and oriented. Cranial nerves II through XII grossly intact. ASSESSMENT: 1. PD associated peritonitis 2. End-stage renal disease on peritoneal dialysis 3. History of cardiomyopathy EF of 35-40% and severe pulmonary hypertension 4. History of atrial fibrillation not on anticoagulation 5. History of permanent pacemaker 6. Diabetes mellitus PLAN: -Patient reported that he would like to switch to hemodialysis. If patient and nephrology want removal of peritoneal dialysis catheter, then we'll plan for removal of peritoneal catheter on Sunday with Dr. Morley -Continue antibiotics -Continue supportive care Physician Endo Tech note has been reviewed by physician. Signing provider agrees with the documented findings, assessment, and plan of care. Objective - Vital Signs Vital signs: Vital Signs Temp 97.3 F L 06/06/23 08:23 Pulse 69 06/06/23 08:26 Resp 18 06/06/23 08:26 BP 99/62 06/06/23 08:23 Pulse Ox 98 06/06/23 08:23 FiO2 Intake & Output 06/05/23 06/06/23 06/06/23 18:59 06:59 18:59 Intake Total 240 Balance 240 Weight 107.32 kg Intake: Oral 240 Other: Voiding Method Bedside Commode Bedside Commode Urinal Urinal Diaper Diaper # Voids 1 # Bowel Movements 1 - Labs CBC & Chem 7: 06/06/23 07:33 06/06/23 07:33 Labs: Abnormal Lab Results - Last 24 Hours (Table) 06/05/23 06/05/23 06/05/23 Range/Units 10:56 16:22 17:55 WBC (3.8-10.6) k/uL RBC (4.30-5.90) m/uL Hgb (13.0-17.5) gm/dL Hct (39.0-53.0) % RDW (11.5-15.5) % Neutrophils # (1.3-7.7) k/uL Sodium (137-145) mmol/L Chloride (98-107) mmol/L Carbon Dioxide (22-30) mmol/L BUN (9-20) mg/dL Creatinine (0.66-1.25) mg/dL Glucose (74-99) mg/dL POC Glucose (mg/dL) 238 H 188 H (70-110) mg/dL Phosphorus (2.5-4.5) mg/dL Albumin (3.5-5.0) g/dL Procalcitonin 1.99 H (0.02-0.09) ng/mL 06/05/23 06/06/23 06/06/23 Range/Units 23:58 06:02 07:33 WBC 15.1 H (3.8-10.6) k/uL RBC 3.25 L (4.30-5.90) m/uL Hgb 10.4 L (13.0-17.5) gm/dL Hct 32.1 L (39.0-53.0) % RDW 18.1 H (11.5-15.5) % Neutrophils # 13.0 H (1.3-7.7) k/uL Sodium (137-145) mmol/L Chloride (98-107) mmol/L Carbon Dioxide (22-30) mmol/L BUN (9-20) mg/dL Creatinine (0.66-1.25) mg/dL Glucose (74-99) mg/dL POC Glucose (mg/dL) 137 H 144 H (70-110) mg/dL Phosphorus (2.5-4.5) mg/dL Albumin (3.5-5.0) g/dL Procalcitonin (0.02-0.09) ng/mL 06/06/23 06/06/23 Range/Units 07:33 11:58 WBC (3.8-10.6) k/uL RBC (4.30-5.90) m/uL Hgb (13.0-17.5) gm/dL Hct (39.0-53.0) % RDW (11.5-15.5) % Neutrophils # (1.3-7.7) k/uL Sodium 128 L (137-145) mmol/L Chloride 91 L (98-107) mmol/L Carbon Dioxide 18 L (22-30) mmol/L BUN 53 H (9-20) mg/dL Creatinine 5.00 H (0.66-1.25) mg/dL Glucose 152 H (74-99) mg/dL POC Glucose (mg/dL) 135 H (70-110) mg/dL Phosphorus 5.6 H (2.5-4.5) mg/dL Albumin 3.0 L (3.5-5.0) g/dL Procalcitonin (0.02-0.09) ng/mL Microbiology - Last 24 Hours (Table) 06/05/23 12:16 Gram Stain - Preliminary Dialysate Body Fluid Culture - Preliminary
[2023-06-06 18:04] LABS: Glucose,Whole Blood 234 mg/dL (70-110)
[2023-06-07 00:01] LABS: Glucose,Whole Blood 132 mg/dL (70-110)
[2023-06-07] MEDS: cefTAZidime 1.25 GM in DIALYSIS (PERITONL) DEX 2.5% 2,000 ML INTRAPERIT SCH (05:35)
[2023-06-07 05:51] LABS: Appearance,BF Clear (Clear)
[2023-06-07 06:05] LABS: Glucose,Whole Blood 115 mg/dL (70-110)
[2023-06-07] MEDS: INSULIN ASPART (NovoLOG) 100 UNIT/ML VIAL SQ SCH ×3 (06:09→17:05)
[2023-06-07] MEDS: MIDODRINE 5 MG TAB PO SCH ×4 (06:16→20:24)
[2023-06-07] MEDS: CALCIUM ACETATE 667 MG TAB PO SCH ×3 (06:16→17:04)
[2023-06-07] MEDS: FERROUS SULFATE 325 MG TAB PO SCH (07:55)
[2023-06-07] MEDS: AMIODARONE 200 MG TAB PO SCH (07:55)
[2023-06-07] MEDS: ASPIRIN 81 MG PO SCH (07:55)
[2023-06-07] MEDS: SUCRALFATE 1 GM TAB PO SCH ×2 (07:55→20:25)
[2023-06-07] MEDS: DOCUSATE 100 MG CAP PO SCH ×2 (07:55→20:25)
[2023-06-07] MEDS: HEPARIN SODIUM,PORCINE 5,000 UNIT/ML 1 ML VIAL SQ SCH ×2 (07:56→20:25)
[2023-06-07] MEDS: allopurinoL 300 MG TAB PO SCH (07:56)
[2023-06-07] MEDS: PANTOPRAZOLE 40 MG/10 ML VIAL IVP SCH (09:11)
--- NOTE | 2023-06-07 10:32 | P.PN ---
Subjective HISTORY OF PRESENT ILLNESS: This is a 77-year-old male with a past medical history significant for end-stage renal disease on peritoneal dialysis, congestive heart failure, persistent atrial fibrillation, hypertension, diabetes, and permanent pacemaker implantation. Patient follows in the office with Dr. Witt. We have been asked to see the patient in consultation for chest pain. Patient examined at the bedside in the emergency room. Patient presented to the hospital with a chief complaint of abdominal pain and generalized weakness. The patient denies having any chest pain yesterday or today. He denies any shortness of breath. The patient is continuing to have abdominal pain at the time of examination. Cheryl mercedes is hypotensive this morning with a blood pressure of 86/54. White count was noted to be elevated at 19.6. * EKG reveals paced rhythm with underlying atrial fibrillation * Chest xray trace bilateral pleural effusions * Laboratory data: WBC 19.6. BUN 48. Creatinine 4.71. Troponin 0.050. * Current home cardiac medications include Demadex 80 mg daily, aspirin 81 mg daily, and amiodarone 40 mg daily * Most recent echocardiogram obtained in February 2023 revealed ejection fraction 35-40%, severe pulmonary hypertension, mild mitral regurgitation, mild tricuspid regurgitation * Patient underwent Marichuy scan stress test in November 2020 which was negative for ischemia * It is noted that patient underwent generator change on 05/11/2023 06/06/2023 Patient examined this morning at the bedside. Patient denies chest pain or pressure. He denies shortness of breath. He continues to report abdominal pain and is currently rating at 6/10. The patient has been started on intraperitoneal antibiotics for peritonitis. 06/07/2023 Patient examined this morning at the bedside. Patient denies chest pain or pressure. He denies shortness of breath. Vital signs are stable. Plan is for hemodialysis catheter placement tomorrow. PHYSICAL EXAM: VITAL SIGNS: Reviewed. GENERAL: Well-developed in no acute distress. HEENT: Head is normocephalic. Pupils are equal, round. Sclerae anicteric. Mucous membranes of the mouth are moist. Neck supple. No JVD or thyromegaly LUNGS: Respirations even and unlabored. Lungs essentially clear to auscultation bilaterally. HEART: Regular rate and rhythm. S1 and S2 heard. ABDOMEN: Soft. Nondistended. Tenderness upon palpation EXTREMITIES: Normal range of motion. No clubbing or cyanosis. Peripheral pulses intact. No lower extremity edema NEUROLOGIC: Awake and alert. Oriented x 3. ASSESSMENT: Generalized weakness Abdominal pain with leukocytosis Peritoneal dialysis associated peritonitis Hypotension End-stage renal disease on peritoneal dialysis Chronic congestive heart failure with reduced EF, 35-40% Severe pulmonary hypertension Persistent atrial fibrillation Hypertension Diabetes History of permanent pacemaker implantation with generator change in April 2023 PLAN: Continue current cardiac medications Continue antibiotics per infectious disease and nephrology Patient to undergo hemodialysis catheter placement tomorrow Patient is currently stable from a cardiac perspective Further recommendations pending patient's course Nurse practitioner note has been reviewed by physician. Signing provider agrees with the documented findings, assessment, and plan of care. Objective - Vital Signs Vital signs: Vital Signs Temp 97.3 F L 06/07/23 07:54 Pulse 61 06/07/23 07:54 Resp 17 06/07/23 07:54 BP 99/61 06/07/23 07:54 Pulse Ox 96 06/07/23 07:54 FiO2 Intake & Output 06/06/23 06/07/23 06/07/23 18:59 06:59 18:59 Intake Total 120 Balance 120 Weight 106 kg Intake: Oral 120 Other: Voiding Method Bedside Commode Bedside Commode Bedside Commode Urinal Urinal Urinal Diaper Diaper Diaper # Voids 1 # Bowel Movements 1 1 - Labs CBC & Chem 7: 06/06/23 07:33 06/06/23 07:33 Labs: Abnormal Lab Results - Last 24 Hours (Table) 06/06/23 06/06/23 06/06/23 Range/Units 11:58 18:03 23:59 POC Glucose (mg/dL) 135 H 234 H 132 H (70-110) mg/dL 06/07/23 Range/Units 06:04 POC Glucose (mg/dL) 115 H (70-110) mg/dL Microbiology - Last 24 Hours (Table) 06/05/23 12:16 Gram Stain - Preliminary Dialysate Body Fluid Culture - Preliminary Coagulase Negative Staph 06/05/23 10:56 Blood Culture - Preliminary Blood
--- NOTE | 2023-06-07 11:26 | P.PN ---
Subjective Patient is seen in follow-up for end-stage renal disease. He is maintained on peritoneal dialysis. No problems with PD exchanges. Wants to transition to hemodialysis. Vital signs are stable. General: No acute distress. HEENT: Head exam is unremarkable. LUNGS: No audible rhonchi or wheezes. HEART: Rate and Rhythm are regular. ABDOMEN: Obese, nontender. EXTREMITITES: No edema. Chronic changes noted. Objective - Vital Signs Vital signs: Vital Signs Temp 97.3 F L 06/07/23 07:54 Pulse 61 06/07/23 07:54 Resp 17 06/07/23 07:54 BP 99/61 06/07/23 07:54 Pulse Ox 96 06/07/23 07:54 FiO2 Intake & Output 06/06/23 06/07/23 06/07/23 18:59 06:59 18:59 Intake Total 120 Balance 120 Weight 106 kg Intake: Oral 120 Other: Voiding Method Bedside Commode Bedside Commode Bedside Commode Urinal Urinal Urinal Diaper Diaper Diaper # Voids 1 # Bowel Movements 1 1 - Labs CBC & Chem 7: 06/06/23 07:33 06/06/23 07:33 Labs: Abnormal Lab Results - Last 24 Hours (Table) 06/06/23 06/06/23 06/06/23 Range/Units 11:58 18:03 23:59 POC Glucose (mg/dL) 135 H 234 H 132 H (70-110) mg/dL 06/07/23 Range/Units 06:04 POC Glucose (mg/dL) 115 H (70-110) mg/dL Microbiology - Last 24 Hours (Table) 06/05/23 12:16 Gram Stain - Preliminary Dialysate Body Fluid Culture - Preliminary Coagulase Negative Staph 06/05/23 10:56 Blood Culture - Preliminary Blood Assessment and Plan Plan: Assessment: 1. End-stage renal disease maintained on peritoneal dialysis. 2. Generalized weakness. 3. Hyponatremia secondary to chronic kidney disease. Hypervolemic. Better. 4. PD associated peritonitis. WBC count 1775 and 96% PMNs dated108/05/2022. Repeat cell count 65 and PMNs 77% dated 06/06/2023. Body fluid culture positive for coag-negative staph. 5. Diabetes mellitus. 6. Chronic systolic CHF with ejection fraction of 35-40% with severe pulmonary hypertension. 7. Persistent A. fib been followed by cardiology. 8. History of permanent pacemaker implantation with generator change in April 2023. 9. Chronic kidney disease mineral bone disease. Phosphorus level 5.6. On PhosLo. Plan: Maintain PD exchanges - 2.5 L every 6 hours at 2.5% solution. Repeat dialysate for cell count culture and Gram stain. Started on intraperitoneal antibiotics on 06/05/2023. Receiving intraperitoneal Fortaz daily. Stop Fortaz is culture positive for coag negative staph. Follow-up cultures. Patient wishes to transition to hemodialysis. Permacath will be placed tomorrow.
[2023-06-07 12:07] LABS: Glucose,Whole Blood 151 mg/dL (70-110)
--- NOTE | 2023-06-07 12:14 | P.PN ---
Subjective Progress Note Date: 06/07/23 CHIEF COMPLAINT: Abdominal pain HISTORY OF PRESENT ILLNESS: Patient is sitting up at bedside chair. He reports his pain is slightly better. Rates his pain about a 6 out of 10. Patient is wishing to proceed with hemodialysis. He is to be evaluated vascular surgery for permacath placement possibly tomorrow. Afebrile PHYSICAL EXAM: VITAL SIGNS: Reviewed. GENERAL: Well-developed in no acute distress. ABDOMEN: Soft. Nondistended. Tenderness right side abdomen NEUROLOGIC: Alert and oriented. Cranial nerves II through XII grossly intact. ASSESSMENT: 1. PD associated peritonitis 2. End-stage renal disease on peritoneal dialysis 3. History of cardiomyopathy EF of 35-40% and severe pulmonary hypertension 4. History of atrial fibrillation not on anticoagulation 5. History of permanent pacemaker 6. Diabetes mellitus PLAN: -Surgical service remains on standby for removal of peritoneal dialysis catheter. Patient tentatively scheduled for removal of PD catheter tomorrow, 06/08/[address] Morley -Continue supportive care -Antibiotics per infectious disease and nephrology Physician Asset Coordinator note has been reviewed by physician. Signing provider agrees with the documented findings, assessment, and plan of care. Objective - Vital Signs Vital signs: Vital Signs Temp 97.3 F L 06/07/23 07:54 Pulse 61 06/07/23 07:54 Resp 17 06/07/23 07:54 BP 99/61 06/07/23 07:54 Pulse Ox 96 06/07/23 07:54 FiO2 Intake & Output 06/06/23 06/07/23 06/07/23 18:59 06:59 18:59 Intake Total 120 Balance 120 Weight 106 kg Intake: Oral 120 Other: Voiding Method Bedside Commode Bedside Commode Bedside Commode Urinal Urinal Urinal Diaper Diaper Diaper # Voids 1 # Bowel Movements 1 1 - Labs CBC & Chem 7: 06/06/23 07:33 06/06/23 07:33 Labs: Abnormal Lab Results - Last 24 Hours (Table) 06/06/23 06/06/23 06/06/23 Range/Units 11:58 18:03 23:59 POC Glucose (mg/dL) 135 H 234 H 132 H (70-110) mg/dL 06/07/23 Range/Units 06:04 POC Glucose (mg/dL) 115 H (70-110) mg/dL Microbiology - Last 24 Hours (Table) 06/05/23 12:16 Gram Stain - Preliminary Dialysate Body Fluid Culture - Preliminary Coagulase Negative Staph 06/05/23 10:56 Blood Culture - Preliminary Blood
--- NOTE | 2023-06-07 12:34 | P.PN ---
Subjective Progress Note Date: 06/07/23 Principal diagnosis: Reason for follow-up is peritoneal dialysis associated peritonitis Patient is a 77-year-old male with a past medical history significant for atrial fibrillation diabetes mellitus hypertension hyperlipidemia end-stage renal disease currently on peritoneal dialysis presenting to the hospital for evaluation of abdominal pain, patient has been diagnosed with a PD catheter assisted peritonitis. On today's evaluation that is 06/07/2023, the patient remains to be afebrile , the patient is breathing comfortably on room air and denies any shortness of breath, the patient denies chest pain or cough , patient abdominal pain has decreased in intensity, no nausea/vomiting and no diarrhea has been reported Patient did have a white count of 15.1, creatinine 5.0 as of 06/06/2023, peritoneal fluid with a white count of 1775 cultures are growing coagulase negative staph Objective - Vital Signs Vital signs: Vital Signs Temp 97.3 F L 06/07/23 07:54 Pulse 61 06/07/23 07:54 Resp 17 06/07/23 07:54 BP 99/61 06/07/23 07:54 Pulse Ox 96 06/07/23 07:54 FiO2 Intake & Output 06/06/23 06/07/23 06/07/23 18:59 06:59 18:59 Intake Total 120 Balance 120 Weight 106 kg Intake: Oral 120 Other: Voiding Method Bedside Commode Bedside Commode Bedside Commode Urinal Urinal Urinal Diaper Diaper Diaper # Voids 1 # Bowel Movements 1 1 - Exam GENERAL DESCRIPTION: An elderly male lying in bed in no distress RESPIRATORY SYSTEM: Unlabored breathing , clear to auscultation anteriorly HEART: S1 S2 regular rate and rhythm , ABDOMEN: Soft , mild distention and tenderness EXTREMITIES: No edema feet - Labs CBC & Chem 7: 06/06/23 07:33 06/06/23 07:33 Labs: Abnormal Lab Results - Last 24 Hours (Table) 06/06/23 06/06/23 06/06/23 Range/Units 11:58 18:03 23:59 POC Glucose (mg/dL) 135 H 234 H 132 H (70-110) mg/dL 06/07/23 Range/Units 06:04 POC Glucose (mg/dL) 115 H (70-110) mg/dL Microbiology - Last 24 Hours (Table) 06/05/23 12:16 Gram Stain - Preliminary Dialysate Body Fluid Culture - Preliminary Coagulase Negative Staph 06/05/23 10:56 Blood Culture - Preliminary Blood Assessment and Plan (1) Dialysis-associated peritonitis Current Visit: Yes Status: Acute Code(s): T85.71XA - INFECT/INFLM REACTION DUE TO PERITON DIALYSIS CATHETER, INIT SNOMED Code(s): 172195421 (2) Leukocytosis Current Visit: No Status: Acute Code(s): D72.829 - ELEVATED WHITE BLOOD CELL COUNT, UNSPECIFIED SNOMED Code(s): 906846806 Plan: 1patient presented to hospital with abdominal pain in this patient with a history of end-stage renal disease on peritoneal dialysis concerning for PD catheter associated peritonitis patient did have elevated white count no fever CT abdominal pelvis did show ascites but no other abnormality patient did have a peritoneal dialysis fluid culture positive for staph epi on 05/10/2023, could be likely the same pathogen 2-peritoneal peritoneal Fluid cell count cell count of 1775 culture are currently growing coagulase negative staph 3-patient to continue with vancomycin intraperitoneally however discontinue Fortaz, no need for removal of the dialysis catheter on the basis of culture Dictation was produced using [employer] dictation software. please excuse any grammatical, word or spelling errors.
[2023-06-07] MEDS: DIALYSIS (PERIT 2.5%) 2,500 ML 50 G/2,000 ML BAG INTRAPERIT SCH ×2 (12:50→17:47)
[2023-06-07 16:38] LABS: Glucose,Whole Blood 179 mg/dL (70-110)
[2023-06-07] MEDS ORDERED: VANCOMYCIN IV PER PHARMACY 1 EACH MISC MISCELLANE PRN (17:22)
--- NOTE | 2023-06-07 20:09 | P.PN ---
Subjective This is a pleasant 77 years old male with past medical history of end-stage renal disease undergoing peritoneal dialysis, history of cardiomyopathy and heart block status post dual chamber pacemaker , diabetes mellitus, GERD, low blood pressure, hyperlipidemia, constipation history of atrial fibrillation, sleep apnea patient presents because of abdominal pain on the right side. He says that his pain about 10/10 and his been going on for the last 2 weeks but gets more worse recently over 1-2 days. He reports some loose stool and diarrhea, he had 1 loose bowel movement yesterday. He is not able to eat but no vomiting Currently denies chest pain or dyspnea. No urinary complaints. No headache. No weakness numbness. He is nonsmoker no alcohol or no illicit drugs. Blood pressure currently the low side 86/54. Sodium 126, creatinine 4.7, glucose 148, magnesium 1.1, liver enzymes not elevated. ProBNP is 10,000. Lipase 198. Chest x-ray: No acute process except for trace bilateral pleural effusion CT of the abdomen and pelvis: Abdominal and pelvic ascites with peritoneal dialysis catheter in place. Small hiatal hernia, diverticulosis without acute diverticulitis, no small bowel obstruction, no free intraperitoneal air 05/06/2023 Patient's abdominal pain is better, it looks relaxed. He tolerates diet well 25-100% Peritoneal fluid cultures pending I discussed the case with ID team, undergone a treatment him with intraperit tobar vancomycin as he has previous culture from staph hominis recently. Objective - Vital Signs Vital signs: Vital Signs Temp 97.3 F L 06/06/23 08:23 Pulse 69 06/06/23 08:26 Resp 18 06/06/23 08:26 BP 99/62 06/06/23 08:23 Pulse Ox 98 06/06/23 08:23 FiO2 Intake & Output 06/05/23 06/06/23 06/06/23 18:59 06:59 18:59 Intake Total 240 Balance 240 Weight 107.32 kg Intake: Oral 240 Other: Voiding Method Bedside Commode Bedside Commode Urinal Urinal Diaper Diaper # Voids 1 # Bowel Movements 1 - Exam GENERAL: The patient is alert and oriented x3, not in any acute distress. Well developed, well nourished. HEENT: Pupils are round and equally reacting to light. EOMI. No scleral icterus. No conjunctival pallor. Normocephalic, atraumatic. No pharyngeal erythema. No thyromegaly. CARDIOVASCULAR: S1 and S2 present. No murmurs, rubs, or gallops. PULMONARY: Chest is clear to auscultation, no wheezing , no crackles. ABDOMEN: Soft, nontender, nondistended, normoactive bowel sounds. No palpable organomegaly. MUSCULOSKELETAL: No joint swelling or deformity. EXTREMITIES: No cyanosis, clubbing, or pedal edema. NEUROLOGICAL: Gross neurological examination did not reveal any focal deficits. SKIN: No rashes. no petechiae. - Labs CBC & Chem 7: 06/06/23 07:33 06/06/23 07:33 Labs: Abnormal Lab Results - Last 24 Hours (Table) 06/05/23 06/05/23 06/05/23 Range/Units 10:56 10:56 16:22 WBC (3.8-10.6) k/uL RBC (4.30-5.90) m/uL Hgb (13.0-17.5) gm/dL Hct (39.0-53.0) % RDW (11.5-15.5) % Neutrophils # (1.3-7.7) k/uL Sodium (137-145) mmol/L Chloride (98-107) mmol/L Carbon Dioxide (22-30) mmol/L BUN (9-20) mg/dL Creatinine (0.66-1.25) mg/dL Glucose (74-99) mg/dL POC Glucose (mg/dL) 238 H (70-110) mg/dL Phosphorus (2.5-4.5) mg/dL C-Reactive Protein 20.5 H (<1.0) mg/dL Albumin (3.5-5.0) g/dL Procalcitonin 1.99 H (0.02-0.09) ng/mL 06/05/23 06/05/23 06/06/23 Range/Units 17:55 23:58 06:02 WBC (3.8-10.6) k/uL RBC (4.30-5.90) m/uL Hgb (13.0-17.5) gm/dL Hct (39.0-53.0) % RDW (11.5-15.5) % Neutrophils # (1.3-7.7) k/uL Sodium (137-145) mmol/L Chloride (98-107) mmol/L Carbon Dioxide (22-30) mmol/L BUN (9-20) mg/dL Creatinine (0.66-1.25) mg/dL Glucose (74-99) mg/dL POC Glucose (mg/dL) 188 H 137 H 144 H (70-110) mg/dL Phosphorus (2.5-4.5) mg/dL C-Reactive Protein (<1.0) mg/dL Albumin (3.5-5.0) g/dL Procalcitonin (0.02-0.09) ng/mL 06/06/23 06/06/23 Range/Units 07:33 07:33 WBC 15.1 H (3.8-10.6) k/uL RBC 3.25 L (4.30-5.90) m/uL Hgb 10.4 L (13.0-17.5) gm/dL Hct 32.1 L (39.0-53.0) % RDW 18.1 H (11.5-15.5) % Neutrophils # 13.0 H (1.3-7.7) k/uL Sodium 128 L (137-145) mmol/L Chloride 91 L (98-107) mmol/L Carbon Dioxide 18 L (22-30) mmol/L BUN 53 H (9-20) mg/dL Creatinine 5.00 H (0.66-1.25) mg/dL Glucose 152 H (74-99) mg/dL POC Glucose (mg/dL) (70-110) mg/dL Phosphorus 5.6 H (2.5-4.5) mg/dL C-Reactive Protein (<1.0) mg/dL Albumin 3.0 L (3.5-5.0) g/dL Procalcitonin (0.02-0.09) ng/mL Microbiology - Last 24 Hours (Table) 06/05/23 12:16 Gram Stain - Preliminary Dialysate Body Fluid Culture - Preliminary Assessment and Plan Assessment: Right lower quadrant abdominal tenderness suspicious for peritonitis versus other, and in view of his ascites and dialysis catheter Possible sepsis with leukocytosis and tachypnea as he meets SIRS criteria Hypotension End-stage renal disease on hemodialysis Hypernatremia History of heart block status post dual chamber placement Cardiomyopathy with ejection fraction 35-40% Plan: Continue with antibiotics Zosyn and IV vancomycin with dialysis follow-up culture results iv hydration with normal saline Blood culture and check procalcitnonin and CRP continue with peritoneal dialysis. Nephrology consult Consult infectious disease team and surgery team Labs and medication were reviewed.. Continue same treatment. Continue with symptomatic treatment. Resume home medication. Monitor labs and vitals. DVT and GI prophylaxis. Further recommendations as per clinical course of the patient DVT prophylaxis: Subcutaneous heparin GI Prophylaxis: Ppi PT/OT: Pending Prognosis is guarded
--- NOTE | 2023-06-07 20:11 | P.PN ---
Subjective This is a pleasant 77 years old male with past medical history of end-stage renal disease undergoing peritoneal dialysis, history of cardiomyopathy and heart block status post dual chamber pacemaker , diabetes mellitus, GERD, low blood pressure, hyperlipidemia, constipation history of atrial fibrillation, sleep apnea patient presents because of abdominal pain on the right side. He says that his pain about 10/10 and his been going on for the last 2 weeks but gets more worse recently over 1-2 days. He reports some loose stool and diarrhea, he had 1 loose bowel movement yesterday. He is not able to eat but no vomiting Currently denies chest pain or dyspnea. No urinary complaints. No headache. No weakness numbness. He is nonsmoker no alcohol or no illicit drugs. Blood pressure currently the low side 86/54. Sodium 126, creatinine 4.7, glucose 148, magnesium 1.1, liver enzymes not elevated. ProBNP is 10,000. Lipase 198. Chest x-ray: No acute process except for trace bilateral pleural effusion CT of the abdomen and pelvis: Abdominal and pelvic ascites with peritoneal dialysis catheter in place. Small hiatal hernia, diverticulosis without acute diverticulitis, no small bowel obstruction, no free intraperitoneal air 05/06/2023 Patient's abdominal pain is better, it looks relaxed. He tolerates diet well 25-100% Peritoneal fluid cultures pending I discussed the case with ID team, undergone a treatment him with intraperit tobar vancomycin as he has previous culture from staph hominis recently. 06/07/2023 Patient is more up in bed, more awake and stronger although not completely back to baseline Although he tolerated some his diet however he still saw recurrent because of his infection in the intraperitoneal cavity. Culture is growing A's-negative staph. Antibiotics was adjusted to IV vancomycin only Plan to switch his peritoneal dialysis to hemodialysis by placing permacath tomorrow Objective - Vital Signs Vital signs: Vital Signs Temp 97.3 F L 06/07/23 07:54 Pulse 61 06/07/23 07:54 Resp 17 06/07/23 07:54 BP 99/61 06/07/23 07:54 Pulse Ox 96 06/07/23 07:54 FiO2 Intake & Output 06/06/23 06/07/23 06/07/23 18:59 06:59 18:59 Intake Total 120 Balance 120 Weight 106 kg Intake: Oral 120 Other: Voiding Method Bedside Commode Bedside Commode Bedside Commode Urinal Urinal Urinal Diaper Diaper Diaper # Voids 1 1 # Bowel Movements 1 1 1 - Exam GENERAL: The patient is alert and oriented x3, not in any acute distress. Well developed, well nourished. HEENT: Pupils are round and equally reacting to light. EOMI. No scleral icterus. No conjunctival pallor. Normocephalic, atraumatic. No pharyngeal erythema. No thyromegaly. CARDIOVASCULAR: S1 and S2 present. No murmurs, rubs, or gallops. PULMONARY: Chest is clear to auscultation, no wheezing , no crackles. ABDOMEN: Soft, nontender, nondistended, normoactive bowel sounds. No palpable organomegaly. MUSCULOSKELETAL: No joint swelling or deformity. EXTREMITIES: No cyanosis, clubbing, or pedal edema. NEUROLOGICAL: Gross neurological examination did not reveal any focal deficits. SKIN: No rashes. no petechiae. - Labs CBC & Chem 7: 06/06/23 07:33 06/06/23 07:33 Labs: Abnormal Lab Results - Last 24 Hours (Table) 06/06/23 06/06/23 06/07/23 Range/Units 18:03 23:59 06:04 POC Glucose (mg/dL) 234 H 132 H 115 H (70-110) mg/dL 06/07/23 Range/Units 11:55 POC Glucose (mg/dL) 151 H (70-110) mg/dL Microbiology - Last 24 Hours (Table) 06/05/23 12:16 Gram Stain - Preliminary Dialysate Body Fluid Culture - Preliminary Coagulase Negative Staph 06/05/23 10:56 Blood Culture - Preliminary Blood Assessment and Plan Assessment: Right lower quadrant abdominal tenderness suspicious for peritonitis versus other, and in view of his ascites and dialysis catheter Possible sepsis with leukocytosis and tachypnea as he meets SIRS criteria Hypotension End-stage renal disease on hemodialysis Hypernatremia History of heart block status post dual chamber placement Cardiomyopathy with ejection fraction 35-40% Plan: Continue with antibiotics IV vancomycin with dialysis follow-up culture results Consult infectious disease team and surgery team Continue with dialysis per nephrology team, with plan to switch peritoneal dialysis to hemodialysis Labs and medication were reviewed.. Continue same treatment. Continue with symptomatic treatment. Resume home medication. Monitor labs and vitals. DVT and GI prophylaxis. Further recommendations as per clinical course of the patient DVT prophylaxis: Subcutaneous heparin GI Prophylaxis: Ppi PT/OT: Pending Prognosis is guarded
[2023-06-07] MEDS ORDERED: VANCOMYCIN 1,500 MG in SODIUM CHLORIDE 0.9% 500 ML 500 ML IVPB ONE (21:00)
[2023-06-07 23:55] LABS: Glucose,Whole Blood 138 mg/dL (70-110)
[2023-06-08] MEDS: DIALYSIS (PERIT 2.5%) 2,500 ML 50 G/2,000 ML BAG INTRAPERIT SCH ×3 (00:23→17:50)
[2023-06-08] MEDS: INSULIN ASPART (NovoLOG) 100 UNIT/ML VIAL SQ SCH ×4 (00:28→16:55)
[2023-06-08 06:08] LABS: Glucose,Whole Blood 83 mg/dL (70-110)
[2023-06-08] MEDS: MIDODRINE 5 MG TAB PO SCH ×4 (06:22→20:38)
[2023-06-08] MEDS: CALCIUM ACETATE 667 MG TAB PO SCH ×3 (06:24→16:55)
[2023-06-08] MEDS: DOCUSATE 100 MG CAP PO SCH ×2 (08:22→20:42)
[2023-06-08] MEDS: HEPARIN SODIUM,PORCINE 5,000 UNIT/ML 1 ML VIAL SQ SCH ×2 (08:23→20:38)
[2023-06-08] MEDS: ASPIRIN 81 MG PO SCH (08:28)
[2023-06-08] MEDS: allopurinoL 300 MG TAB PO SCH (08:38)
[2023-06-08] MEDS: AMIODARONE 200 MG TAB PO SCH (08:38)
[2023-06-08] MEDS: PANTOPRAZOLE 40 MG/10 ML VIAL IVP SCH (08:38)
[2023-06-08] MEDS: SUCRALFATE 1 GM TAB PO SCH ×2 (08:38→20:38)
[2023-06-08] MEDS: FERROUS SULFATE 325 MG TAB PO SCH (08:38)
[2023-06-08 09:39] LABS: African American GFR (CKD) 13 (>60 ml/min/1.73 sqM); Anion Gap 17 mmol/L; Blood Urea Nitrogen 50 mg/dL (9-20); Calcium 8.4 mg/dL (8.4-10.2); Carbon Dioxide 20 mmol/L (22-30); Chloride 94 mmol/L (98-107); Glucose 82 mg/dL (74-99); Magnesium 1.4 mg/dL (1.6-2.3); Non-African American GFR(CKD) 11 (>60 ml/min/1.73 sqM); Potassium 3.5 mmol/L (3.5-5.1); Sodium 131 mmol/L (137-145)
[2023-06-08 09:41] LABS: Anisocytosis Slight; Basophils % (A) 0 %; Eosinophils # (A) 0.2 k/uL (0-0.7); Eosinophils % (A) 2 %; HCT 31.9 % (39.0-53.0); HGB 10.6 gm/dL (13.0-17.5); Hypochromasia Slight; Lymphocytes # (A) 1.6 k/uL (1.0-4.8); Lymphocytes % (A) 12 %; MCH 32.7 pg (25.0-35.0); MCHC 33.1 g/dL (31.0-37.0); MCV 98.7 fL (80.0-100.0); Macrocytosis Slight; Mean Platelet Volume 8.7; Monocytes # (A) 0.4 k/uL (0-1.0); Monocytes % (A) 3 %; Neutrophils # (A) 10.5 k/uL (1.3-7.7); Neutrophils % (A) 82 %; Platelet Count 300 k/uL (150-450); Poikilocytosis Slight; RBC 3.24 m/uL (4.30-5.90); RDW 18.4 % (11.5-15.5); WBC 12.8 k/uL (3.8-10.6)
[2023-06-08 12:04] LABS: Glucose,Whole Blood 88 mg/dL (70-110)
[2023-06-08] MEDS: Acetaminophen-Codeine 300-30mg TAB PO PRN (12:13)
--- NOTE | 2023-06-08 12:22 | P.PN ---
Subjective Patient is seen in follow-up for end-stage renal disease. He is maintained on peritoneal dialysis. No problems with PD exchanges. Wants to transition to hemodialysis. Patient to get permacath placed tomorrow. PD catheter will be removed. Vital signs are stable. General: No acute distress. HEENT: Head exam is unremarkable. LUNGS: No audible rhonchi or wheezes. HEART: Rate and Rhythm are regular. ABDOMEN: Obese, nontender. EXTREMITITES: No edema. Chronic changes noted. Objective - Vital Signs Vital signs: Vital Signs Temp 98.5 F 06/08/23 08:37 Pulse 69 06/08/23 08:37 Resp 17 06/08/23 08:37 BP 107/66 06/08/23 08:37 Pulse Ox 99 06/08/23 09:21 FiO2 Intake & Output 06/07/23 06/08/23 06/08/23 18:59 06:59 18:59 Intake Total 240 Balance 240 Weight 106.1 kg Intake: Oral 240 Other: Voiding Method Bedside Commode Bedside Commode Bedside Commode Urinal Urinal Urinal Diaper Diaper Diaper # Voids 1 1 # Bowel Movements 1 2 1 - Labs CBC & Chem 7: 06/08/23 07:28 06/08/23 07:28 Labs: Abnormal Lab Results - Last 24 Hours (Table) 06/07/23 06/07/23 06/08/23 Range/Units 16:35 23:52 07:28 WBC 12.8 H (3.8-10.6) k/uL RBC 3.24 L (4.30-5.90) m/uL Hgb 10.6 L (13.0-17.5) gm/dL Hct 31.9 L (39.0-53.0) % RDW 18.4 H (11.5-15.5) % Neutrophils # 10.5 H (1.3-7.7) k/uL Sodium (137-145) mmol/L Chloride (98-107) mmol/L Carbon Dioxide (22-30) mmol/L BUN (9-20) mg/dL Creatinine (0.66-1.25) mg/dL POC Glucose (mg/dL) 179 H 138 H (70-110) mg/dL Magnesium (1.6-2.3) mg/dL 06/08/23 Range/Units 07:28 WBC (3.8-10.6) k/uL RBC (4.30-5.90) m/uL Hgb (13.0-17.5) gm/dL Hct (39.0-53.0) % RDW (11.5-15.5) % Neutrophils # (1.3-7.7) k/uL Sodium 131 L (137-145) mmol/L Chloride 94 L (98-107) mmol/L Carbon Dioxide 20 L (22-30) mmol/L BUN 50 H (9-20) mg/dL Creatinine 4.76 H (0.66-1.25) mg/dL POC Glucose (mg/dL) (70-110) mg/dL Magnesium 1.4 L (1.6-2.3) mg/dL Microbiology - Last 24 Hours (Table) 06/06/23 18:35 Gram Stain - Preliminary Peritoneal Fluid Body Fluid Culture - Preliminary 06/05/23 12:16 Gram Stain - Final Dialysate Body Fluid Culture - Final Staphylococcus epidermidis 06/05/23 10:56 Blood Culture - Preliminary Blood Assessment and Plan Plan: Assessment: 1. End-stage renal disease maintained on peritoneal dialysis. 2. Generalized weakness. 3. Hyponatremia secondary to chronic kidney disease. Hypervolemic. Better. 4. PD associated peritonitis. WBC count 1775 and 96% PMNs dated108/05/2022. Repeat cell count 65 and PMNs 77% dated 06/06/2023. Body fluid culture positive for coag-negative staph. 5. Diabetes mellitus. 6. Chronic systolic CHF with ejection fraction of 35-40% with severe pulmonary hypertension. 7. Persistent A. fib been followed by cardiology. 8. History of permanent pacemaker implantation with generator change in April 2023. 9. Chronic kidney disease mineral bone disease. Phosphorus level 5.6. On PhosLo. 10. Hypomagnesemia from poor intake. Plan: Maintain PD exchanges - 2.5 L every 6 hours at 2.5% solution. Received intraperitoneal vancomycin on 06/05/2023. Now will receive IV vancomycin as PD catheter will be discontinued. Follow-up cultures. Patient wishes to transition to hemodialysis. Permacath will be placed tomorrow. Replace magnesium.
--- NOTE | 2023-06-08 12:32 | P.PN ---
Subjective Progress Note Date: 06/08/23 Principal diagnosis: Reason for follow-up is peritoneal dialysis associated peritonitis Patient is a 77-year-old male with a past medical history significant for atrial fibrillation diabetes mellitus hypertension hyperlipidemia end-stage renal disease currently on peritoneal dialysis presenting to the hospital for evaluation of abdominal pain, patient has been diagnosed with a PD catheter assisted peritonitis. On today's evaluation that is 06/08/2023, the patient denies any fever or chills, the patient is breathing comfortably on 3 L nasal cannula supplemental oxygen the patient denies chest pain shortness of breath or cough , patient nausea/vomiting, however has been complaining of right lower abdominal pain at the site of his dialysis catheter and also having multiple loose stools Patient did have a white count is down to 12.8, creatinine is 4.76 peritoneal fluid with a white count of 1775 cultures are growing coagulase negative staph Objective - Vital Signs Vital signs: Vital Signs Temp 98.5 F 06/08/23 08:37 Pulse 69 06/08/23 08:37 Resp 17 06/08/23 08:37 BP 107/66 06/08/23 08:37 Pulse Ox 99 06/08/23 09:21 FiO2 Intake & Output 06/07/23 06/08/23 06/08/23 18:59 06:59 18:59 Intake Total 240 Balance 240 Weight 106.1 kg Intake: Oral 240 Other: Voiding Method Bedside Commode Bedside Commode Bedside Commode Urinal Urinal Urinal Diaper Diaper Diaper # Voids 1 1 # Bowel Movements 1 2 1 - Exam GENERAL DESCRIPTION: An elderly male lying in bed in no distress RESPIRATORY SYSTEM: Unlabored breathing , clear to auscultation anteriorly HEART: S1 S2 regular rate and rhythm , ABDOMEN: Soft , mild distention and tenderness EXTREMITIES: No edema feet - Labs CBC & Chem 7: 06/08/23 07:28 06/08/23 07:28 Labs: Abnormal Lab Results - Last 24 Hours (Table) 06/07/23 06/07/23 06/08/23 Range/Units 16:35 23:52 07:28 WBC 12.8 H (3.8-10.6) k/uL RBC 3.24 L (4.30-5.90) m/uL Hgb 10.6 L (13.0-17.5) gm/dL Hct 31.9 L (39.0-53.0) % RDW 18.4 H (11.5-15.5) % Neutrophils # 10.5 H (1.3-7.7) k/uL Sodium (137-145) mmol/L Chloride (98-107) mmol/L Carbon Dioxide (22-30) mmol/L BUN (9-20) mg/dL Creatinine (0.66-1.25) mg/dL POC Glucose (mg/dL) 179 H 138 H (70-110) mg/dL Magnesium (1.6-2.3) mg/dL 06/08/23 Range/Units 07:28 WBC (3.8-10.6) k/uL RBC (4.30-5.90) m/uL Hgb (13.0-17.5) gm/dL Hct (39.0-53.0) % RDW (11.5-15.5) % Neutrophils # (1.3-7.7) k/uL Sodium 131 L (137-145) mmol/L Chloride 94 L (98-107) mmol/L Carbon Dioxide 20 L (22-30) mmol/L BUN 50 H (9-20) mg/dL Creatinine 4.76 H (0.66-1.25) mg/dL POC Glucose (mg/dL) (70-110) mg/dL Magnesium 1.4 L (1.6-2.3) mg/dL Microbiology - Last 24 Hours (Table) 06/06/23 18:35 Gram Stain - Preliminary Peritoneal Fluid Body Fluid Culture - Preliminary 06/05/23 12:16 Gram Stain - Final Dialysate Body Fluid Culture - Final Staphylococcus epidermidis 06/05/23 10:56 Blood Culture - Preliminary Blood Assessment and Plan (1) Dialysis-associated peritonitis Current Visit: Yes Status: Acute Code(s): T85.71XA - INFECT/INFLM REACTION DUE TO PERITON DIALYSIS CATHETER, INIT SNOMED Code(s): 219271768 (2) Leukocytosis Current Visit: No Status: Acute Code(s): D72.829 - ELEVATED WHITE BLOOD CELL COUNT, UNSPECIFIED SNOMED Code(s): 263322098 Plan: 1patient presented to hospital with abdominal pain in this patient with a history of end-stage renal disease on peritoneal dialysis concerning for PD catheter associated peritonitis patient did have elevated white count no fever CT abdominal pelvis did show ascites but no other abnormality patient did have a peritoneal dialysis fluid culture positive for staph epi on 05/10/2023, could be likely the same pathogen 2-peritoneal peritoneal Fluid cell count cell count of 1775 culture are currently growing coagulase negative staph 3Plan is for patient to be transitioned to hemodialysis peritoneal dialysis has been put on hold vancomycin has been switched to IV pharmacy to dose to continue 4patient with significant diarrhea we will check a stool for C. diff and treat if positive add Questran for symptomatic relief Dictation was produced using [employer] dictation software. please excuse any grammatical, word or spelling errors. Time with Patient: Less than 30
[2023-06-08] MEDS: MAGNESIUM SULFATE-D5W PMX 1 GM in DEXTROSE/WATER 1 100ML.BAG IVPB SCH ×2 (12:57→16:55)
[2023-06-08] MEDS: CHOLESTYRAMINE (WITH SUGAR) 4 GM PACKET PO SCH ×2 (12:57→16:55)
--- NOTE | 2023-06-08 13:15 | P.PN ---
Subjective This is a pleasant 77 years old male with past medical history of end-stage renal disease undergoing peritoneal dialysis, history of cardiomyopathy and heart block status post dual chamber pacemaker , diabetes mellitus, GERD, low blood pressure, hyperlipidemia, constipation history of atrial fibrillation, sleep apnea patient presents because of abdominal pain on the right side. He says that his pain about 10/10 and his been going on for the last 2 weeks but gets more worse recently over 1-2 days. He reports some loose stool and diarrhea, he had 1 loose bowel movement yesterday. He is not able to eat but no vomiting Currently denies chest pain or dyspnea. No urinary complaints. No headache. No weakness numbness. He is nonsmoker no alcohol or no illicit drugs. Blood pressure currently the low side 86/54. Sodium 126, creatinine 4.7, glucose 148, magnesium 1.1, liver enzymes not elevated. ProBNP is 10,000. Lipase 198. Chest x-ray: No acute process except for trace bilateral pleural effusion CT of the abdomen and pelvis: Abdominal and pelvic ascites with peritoneal dialysis catheter in place. Small hiatal hernia, diverticulosis without acute diverticulitis, no small bowel obstruction, no free intraperitoneal air 05/06/2023 Patient's abdominal pain is better, it looks relaxed. He tolerates diet well 25-100% Peritoneal fluid cultures pending I discussed the case with ID team, undergone a treatment him with intraperit tobar vancomycin as he has previous culture from staph hominis recently. 06/07/2023 Patient is more up in bed, more awake and stronger although not completely back to baseline Although he tolerated some his diet however he still saw recurrent because of his infection in the intraperitoneal cavity. Culture is growing A's-negative staph. Antibiotics was adjusted to IV vancomycin only Plan to switch his peritoneal dialysis to hemodialysis by placing permacath tomorrow 06/08/2023 Patient had little more abdominal pain last night, he uses only Tylenol and he thinks that caused too much for him before going to the, Tylenol No. 3. Patient tolerates diet to certain level. His leukocytosis is improving He remains on IV vancomycin and culture is growing coagulase-negative staph. Plan to change his peritoneal dialysis catheter and to hemodialysis catheter tomorrow. C. diff tests is requested for diarrhea although the suspicion is low Objective - Vital Signs Vital signs: Vital Signs Temp 97.6 F 06/08/23 12:00 Pulse 68 06/08/23 12:00 Resp 16 06/08/23 12:00 BP 92/59 06/08/23 12:00 Pulse Ox 94 L 06/08/23 12:00 FiO2 Intake & Output 06/07/23 06/08/23 06/08/23 18:59 06:59 18:59 Intake Total 240 Balance 240 Weight 106.1 kg Intake: Oral 240 Other: Voiding Method Bedside Commode Bedside Commode Bedside Commode Urinal Urinal Urinal Diaper Diaper Diaper # Voids 1 1 # Bowel Movements 1 2 1 - Exam GENERAL: The patient is alert and oriented x3, not in any acute distress. Well developed, well nourished. HEENT: Pupils are round and equally reacting to light. EOMI. No scleral icterus. No conjunctival pallor. Normocephalic, atraumatic. No pharyngeal erythema. No thyromegaly. CARDIOVASCULAR: S1 and S2 present. No murmurs, rubs, or gallops. PULMONARY: Chest is clear to auscultation, no wheezing , no crackles. ABDOMEN: Soft, nontender, nondistended, normoactive bowel sounds. No palpable organomegaly. MUSCULOSKELETAL: No joint swelling or deformity. EXTREMITIES: No cyanosis, clubbing, or pedal edema. NEUROLOGICAL: Gross neurological examination did not reveal any focal deficits. SKIN: No rashes. no petechiae. - Labs CBC & Chem 7: 06/08/23 07:28 06/08/23 07:28 Labs: Abnormal Lab Results - Last 24 Hours (Table) 06/07/23 06/07/23 06/08/23 Range/Units 16:35 23:52 07:28 WBC 12.8 H (3.8-10.6) k/uL RBC 3.24 L (4.30-5.90) m/uL Hgb 10.6 L (13.0-17.5) gm/dL Hct 31.9 L (39.0-53.0) % RDW 18.4 H (11.5-15.5) % Neutrophils # 10.5 H (1.3-7.7) k/uL Sodium (137-145) mmol/L Chloride (98-107) mmol/L Carbon Dioxide (22-30) mmol/L BUN (9-20) mg/dL Creatinine (0.66-1.25) mg/dL POC Glucose (mg/dL) 179 H 138 H (70-110) mg/dL Magnesium (1.6-2.3) mg/dL 06/08/23 Range/Units 07:28 WBC (3.8-10.6) k/uL RBC (4.30-5.90) m/uL Hgb (13.0-17.5) gm/dL Hct (39.0-53.0) % RDW (11.5-15.5) % Neutrophils # (1.3-7.7) k/uL Sodium 131 L (137-145) mmol/L Chloride 94 L (98-107) mmol/L Carbon Dioxide 20 L (22-30) mmol/L BUN 50 H (9-20) mg/dL Creatinine 4.76 H (0.66-1.25) mg/dL POC Glucose (mg/dL) (70-110) mg/dL Magnesium 1.4 L (1.6-2.3) mg/dL Microbiology - Last 24 Hours (Table) 06/06/23 18:35 Gram Stain - Preliminary Peritoneal Fluid Body Fluid Culture - Preliminary 06/05/23 12:16 Gram Stain - Final Dialysate Body Fluid Culture - Final Staphylococcus epidermidis 06/05/23 10:56 Blood Culture - Preliminary Blood Assessment and Plan Assessment: Right lower quadrant abdominal tenderness suspicious for peritonitis versus other, and in view of his ascites and dialysis catheter Possible sepsis with leukocytosis and tachypnea as he meets SIRS criteria Hypotension End-stage renal disease on hemodialysis Hypernatremia History of heart block status post dual chamber placement Cardiomyopathy with ejection fraction 35-40% Plan: Continue with antibiotics IV vancomycin with dialysis follow-up culture results Consult infectious disease team and surgery team Continue with dialysis per nephrology team, with plan to switch peritoneal dial ysis to hemodialysis Labs and medication were reviewed.. Continue same treatment. Continue with sy mptomatic treatment. Resume home medication. Monitor labs and vitals. DVT and GI prophylaxis. Further recommendations as per clinical course of the patient DVT prophylaxis: Subcutaneous heparin GI Prophylaxis: Ppi PT/OT: Pending Prognosis is guarded
--- NOTE | 2023-06-08 15:13 | P.PN ---
Subjective Progress Note Date: 06/08/23 CHIEF COMPLAINT: Abdominal pain HISTORY OF PRESENT ILLNESS: Patient is lying in bed. He still complains about the same abdominal discomfort mostly on the right side. He rates his pain 6 out of 10. He did have diarrhea today. The permacath is scheduled to be placed tomorrow by vascular surgery. Afebrile . WBC down from 15-12.8 HB 10.6 platelets 300 sodium is 131 potassium 3.5 creatinine 4.76 magnesium 1.4 PHYSICAL EXAM: VITAL SIGNS: Reviewed. GENERAL: Well-developed in no acute distress. ABDOMEN: Soft. Nondistended. Tenderness right side abdomen NEUROLOGIC: Alert and oriented. Cranial nerves II through XII grossly intact. ASSESSMENT: 1. PD associated peritonitis 2. End-stage renal disease on peritoneal dialysis 3. History of cardiomyopathy EF of 35-40% and severe pulmonary hypertension 4. History of atrial fibrillation not on anticoagulation 5. History of permanent pacemaker 6. Diabetes mellitus PLAN: -Patient is scheduled for removal of peritoneal dialysis catheter on 06/11/[address] Morley -Permacath is to be placed tomorrow by vascular surgery -Antibiotics per infectious disease and nephrology -Magnesium being replaced Physician Machine Tool Operator note has been reviewed by physician. Signing provider agrees with the documented findings, assessment, and plan of care. Objective - Vital Signs Vital signs: Vital Signs Temp 98.5 F 06/08/23 08:37 Pulse 69 06/08/23 08:37 Resp 17 06/08/23 08:37 BP 107/66 06/08/23 08:37 Pulse Ox 99 06/08/23 09:21 FiO2 Intake & Output 06/07/23 06/08/23 06/08/23 18:59 06:59 18:59 Intake Total 240 Balance 240 Weight 106.1 kg Intake: Oral 240 Other: Voiding Method Bedside Commode Bedside Commode Bedside Commode Urinal Urinal Urinal Diaper Diaper Diaper # Voids 1 1 # Bowel Movements 1 2 1 - Labs CBC & Chem 7: 06/08/23 07:28 06/08/23 07:28 Labs: Abnormal Lab Results - Last 24 Hours (Table) 06/07/23 06/07/23 06/08/23 Range/Units 16:35 23:52 07:28 WBC 12.8 H (3.8-10.6) k/uL RBC 3.24 L (4.30-5.90) m/uL Hgb 10.6 L (13.0-17.5) gm/dL Hct 31.9 L (39.0-53.0) % RDW 18.4 H (11.5-15.5) % Neutrophils # 10.5 H (1.3-7.7) k/uL Sodium (137-145) mmol/L Chloride (98-107) mmol/L Carbon Dioxide (22-30) mmol/L BUN (9-20) mg/dL Creatinine (0.66-1.25) mg/dL POC Glucose (mg/dL) 179 H 138 H (70-110) mg/dL Magnesium (1.6-2.3) mg/dL 06/08/23 Range/Units 07:28 WBC (3.8-10.6) k/uL RBC (4.30-5.90) m/uL Hgb (13.0-17.5) gm/dL Hct (39.0-53.0) % RDW (11.5-15.5) % Neutrophils # (1.3-7.7) k/uL Sodium 131 L (137-145) mmol/L Chloride 94 L (98-107) mmol/L Carbon Dioxide 20 L (22-30) mmol/L BUN 50 H (9-20) mg/dL Creatinine 4.76 H (0.66-1.25) mg/dL POC Glucose (mg/dL) (70-110) mg/dL Magnesium 1.4 L (1.6-2.3) mg/dL Microbiology - Last 24 Hours (Table) 06/06/23 18:35 Gram Stain - Preliminary Peritoneal Fluid Body Fluid Culture - Preliminary 06/05/23 12:16 Gram Stain - Final Dialysate Body Fluid Culture - Final Staphylococcus epidermidis 06/05/23 10:56 Blood Culture - Preliminary Blood
[2023-06-08 16:42] LABS: Glucose,Whole Blood 204 mg/dL (70-110)
[2023-06-09 00:35] LABS: Glucose,Whole Blood 145 mg/dL (70-110)
[2023-06-09] MEDS: INSULIN ASPART (NovoLOG) 100 UNIT/ML VIAL SQ SCH ×4 (01:01→17:16)
[2023-06-09 06:21] LABS: Glucose,Whole Blood 137 mg/dL (70-110)
[2023-06-09] MEDS: AMIODARONE 200 MG TAB PO SCH (08:35)
[2023-06-09] MEDS: SUCRALFATE 1 GM TAB PO SCH ×2 (08:35→20:07)
[2023-06-09] MEDS: ASPIRIN 81 MG PO SCH (08:35)
[2023-06-09] MEDS: FERROUS SULFATE 325 MG TAB PO SCH (08:35)
[2023-06-09] MEDS: MIDODRINE 5 MG TAB PO SCH ×4 (08:35→20:07)
[2023-06-09] MEDS: allopurinoL 300 MG TAB PO SCH (08:35)
[2023-06-09] MEDS: DOCUSATE 100 MG CAP PO SCH ×2 (08:35→21:23)
[2023-06-09] MEDS: PANTOPRAZOLE 40 MG/10 ML VIAL IVP SCH (08:36)
[2023-06-09] MEDS: HEPARIN SODIUM,PORCINE 5,000 UNIT/ML 1 ML VIAL SQ SCH ×2 (09:21→20:07)
[2023-06-09] MEDS: CALCIUM ACETATE 667 MG TAB PO SCH ×3 (09:21→17:22)
[2023-06-09 11:59] LABS: Glucose,Whole Blood 124 mg/dL (70-110)
--- NOTE | 2023-06-09 11:59 | P.PN ---
Subjective Progress Note Date: 06/09/23 The patient is a 77-year-old male who is currently admitted to the hospital with peritonitis secondary to peritoneal dialysis cath port infection. Cardiology was consulted for congestive heart failure as well as following Dr. Witt in the office. Patient was interviewed and examined resting in bed. Mildly labored breathing. He denies any chest pain or chest pressure. He states he has not been up a mbulating. GENERAL: Ill-appearing, obese male. NECK: Supple without JVD or thyromegaly. LUNGS: Breath sounds diminished to auscultation bilaterally. Respiration equal. No wheezes, rales or rhonchi. HEART: Regular rate and rhythm without murmurs, rubs or gallops. S1 and S2 heard. EXTREMITIES: Normal range of motion. Generalized edema. No clubbing or cyanosis. Peripheral pulses intact and strong. TELEMETRY: Paced rhythm IMPRESSION: Abdominal pain with leukocytosis Peritonitis secondary to peritoneal cath port infection Hypotension End-stage renal disease Chronic congestive heart failure with reduced ejection fraction, EF 35-40% Severe pulmonary hypertension Persistent A. fib Hypertension Diabetes 6 sinus syndrome status post permanent pacemaker implantation PLAN: Continue current cardiac medication regimen Proceed with peritoneal dialysis port removal and subclavian hemodialysis port placement Further recommendations previous clinical course I am dictating on behalf of Dr Rusty Witt's history/physical and assessment/plan. Objective - Vital Signs Vital signs: Vital Signs Temp 97.9 F 06/09/23 11:21 Pulse 71 06/09/23 11:21 Resp 18 06/09/23 11:21 BP 89/49 06/09/23 11:21 Pulse Ox 97 06/09/23 11:21 FiO2 Intake & Output 06/08/23 06/09/23 06/09/23 18:59 06:59 18:59 Intake Total 0 Balance 0 Weight 106.2 kg Intake: Oral 0 Other: Voiding Method Bedside Commode Bedside Commode Bedside Commode Urinal Urinal Urinal Diaper Diaper Diaper # Voids 1 1 # Bowel Movements 1 - Labs CBC & Chem 7: 06/08/23 07:28 06/08/23 07:28 Labs: Abnormal Lab Results - Last 24 Hours (Table) 06/08/23 06/08/23 06/09/23 Range/Units 16:40 16:48 00:34 POC Glucose (mg/dL) 204 H 145 H (70-110) mg/dL Hep Bs Antibody A (Negative) 06/09/23 Range/Units 06:20 POC Glucose (mg/dL) 137 H (70-110) mg/dL Hep Bs Antibody (Negative) Microbiology - Last 24 Hours (Table) 06/06/23 18:35 Gram Stain - Preliminary Peritoneal Fluid Body Fluid Culture - Preliminary 06/05/23 10:56 Blood Culture - Preliminary Blood 06/05/23 12:16 Gram Stain - Final Dialysate Body Fluid Culture - Final Staphylococcus epidermidis
[2023-06-09] MEDS: CHOLESTYRAMINE (WITH SUGAR) 4 GM PACKET PO SCH ×2 (12:00→17:22)
--- NOTE | 2023-06-09 12:55 | P.PN ---
Subjective Progress Note Date: 06/09/23 Follow-up for ESRD. Currently on peritoneal dialysis. Awaiting permacath placement for surgery. Objective - Vital Signs Vital signs: Vital Signs Temp 97.9 F 06/09/23 11:21 Pulse 71 06/09/23 11:21 Resp 18 06/09/23 11:21 BP 89/49 06/09/23 11:21 Pulse Ox 97 06/09/23 11:21 FiO2 Intake & Output 06/08/23 06/09/23 06/09/23 18:59 06:59 18:59 Intake Total 0 Balance 0 Weight 106.2 kg Intake: Oral 0 Other: Voiding Method Bedside Commode Bedside Commode Bedside Commode Urinal Urinal Urinal Diaper Diaper Diaper # Voids 1 1 # Bowel Movements 1 - Exam No acute distress S1-S2 heard Decreased breath sounds Abdomen soft Edema - Labs CBC & Chem 7: 06/08/23 07:28 06/08/23 07:28 Labs: Abnormal Lab Results - Last 24 Hours (Table) 06/08/23 06/08/23 06/09/23 Range/Units 16:40 16:48 00:34 POC Glucose (mg/dL) 204 H 145 H (70-110) mg/dL Hep Bs Antibody A (Negative) 06/09/23 06/09/23 Range/Units 06:20 11:46 POC Glucose (mg/dL) 137 H 124 H (70-110) mg/dL Hep Bs Antibody (Negative) Microbiology - Last 24 Hours (Table) 06/06/23 18:35 Gram Stain - Preliminary Peritoneal Fluid Body Fluid Culture - Preliminary 06/05/23 10:56 Blood Culture - Preliminary Blood 06/05/23 12:16 Gram Stain - Final Dialysate Body Fluid Culture - Final Staphylococcus epidermidis Assessment and Plan Assessment: #1 ESRD on peritoneal dialysis. #2 hypervolemic hyponatremia #3 secondary bacterial peritonitis secondary to peritoneal dialysis catheter. #4 CHF with systolic dysfunction EF of 40% #5 persistent A. fib #6 anemia with chronic kidney disease #7 metabolic bone disease Plan: #1 continue with peritoneal dialysis for now. #2 awaiting catheter placement per surgery. Once catheter is placed switched to hemodialysis and remove the PD catheter.
[2023-06-09 16:11] LABS: Glucose,Whole Blood 116 mg/dL (70-110)
--- NOTE | 2023-06-09 18:21 | P.PN ---
Subjective This is a pleasant 77 years old male with past medical history of end-stage renal disease undergoing peritoneal dialysis, history of cardiomyopathy and heart block status post dual chamber pacemaker , diabetes mellitus, GERD, low blood pressure, hyperlipidemia, constipation history of atrial fibrillation, sleep apnea patient presents because of abdominal pain on the right side. He says that his pain about 10/10 and his been going on for the last 2 weeks but gets more worse recently over 1-2 days. He reports some loose stool and diarrhea, he had 1 loose bowel movement yesterday. He is not able to eat but no vomiting Currently denies chest pain or dyspnea. No urinary complaints. No headache. No weakness numbness. He is nonsmoker no alcohol or no illicit drugs. Blood pressure currently the low side 86/54. Sodium 126, creatinine 4.7, glucose 148, magnesium 1.1, liver enzymes not elevated. ProBNP is 10,000. Lipase 198. Chest x-ray: No acute process except for trace bilateral pleural effusion CT of the abdomen and pelvis: Abdominal and pelvic ascites with peritoneal dialysis catheter in place. Small hiatal hernia, diverticulosis without acute diverticulitis, no small bowel obstruction, no free intraperitoneal air 05/06/2023 Patient's abdominal pain is better, it looks relaxed. He tolerates diet well 25-100% Peritoneal fluid cultures pending I discussed the case with ID team, undergone a treatment him with intraperit tobar vancomycin as he has previous culture from staph hominis recently. 06/07/2023 Patient is more up in bed, more awake and stronger although not completely back to baseline Although he tolerated some his diet however he still saw recurrent because of his infection in the intraperitoneal cavity. Culture is growing A's-negative staph. Antibiotics was adjusted to IV vancomycin only Plan to switch his peritoneal dialysis to hemodialysis by placing permacath tomorrow 06/08/2023 Patient had little more abdominal pain last night, he uses only Tylenol and he thinks that caused too much for him before going to the, Tylenol No. 3. Patient tolerates diet to certain level. His leukocytosis is improving He remains on IV vancomycin and culture is growing coagulase-negative staph. Plan to change his peritoneal dialysis catheter and to hemodialysis catheter tomorrow. C. diff tests is requested for diarrhea although the suspicion is low 06/09/2023 Patient abdominal pain is improving Diarrhea stopped after adding Questran Patient pending hemodialysis catheter placement to switch his peritoneal dialysis until HD and remove the PD catheter Objective - Vital Signs Vital signs: Vital Signs Temp 97.9 F 06/09/23 11:21 Pulse 71 06/09/23 11:21 Resp 18 06/09/23 11:21 BP 89/49 06/09/23 11:21 Pulse Ox 97 06/09/23 11:21 FiO2 Intake & Output 06/08/23 06/09/23 06/09/23 18:59 06:59 18:59 Intake Total 0 Balance 0 Weight 106.2 kg Intake: Oral 0 Other: Voiding Method Bedside Commode Bedside Commode Bedside Commode Urinal Urinal Urinal Diaper Diaper Diaper # Voids 1 1 # Bowel Movements 1 - Exam GENERAL: The patient is alert and oriented x3, not in any acute distress. Well developed, well nourished. HEENT: Pupils are round and equally reacting to light. EOMI. No scleral icterus. No conjunctival pallor. Normocephalic, atraumatic. No pharyngeal erythema. No thyromegaly. CARDIOVASCULAR: S1 and S2 present. No murmurs, rubs, or gallops. PULMONARY: Chest is clear to auscultation, no wheezing , no crackles. ABDOMEN: Soft, nontender, nondistended, normoactive bowel sounds. No palpable organomegaly. MUSCULOSKELETAL: No joint swelling or deformity. EXTREMITIES: No cyanosis, clubbing, or pedal edema. NEUROLOGICAL: Gross neurological examination did not reveal any focal deficits. SKIN: No rashes. no petechiae. - Labs CBC & Chem 7: 06/08/23 07:28 06/08/23 07:28 Labs: Abnormal Lab Results - Last 24 Hours (Table) 06/08/23 06/08/23 06/09/23 Range/Units 16:40 16:48 00:34 POC Glucose (mg/dL) 204 H 145 H (70-110) mg/dL Hep Bs Antibody A (Negative) 06/09/23 Range/Units 06:20 POC Glucose (mg/dL) 137 H (70-110) mg/dL Hep Bs Antibody (Negative) Microbiology - Last 24 Hours (Table) 06/06/23 18:35 Gram Stain - Preliminary Peritoneal Fluid Body Fluid Culture - Preliminary 06/05/23 10:56 Blood Culture - Preliminary Blood 06/05/23 12:16 Gram Stain - Final Dialysate Body Fluid Culture - Final Staphylococcus epidermidis Assessment and Plan Assessment: Right lower quadrant abdominal tenderness suspicious for peritonitis versus other, and in view of his ascites and dialysis catheter Possible sepsis with leukocytosis and tachypnea as he meets SIRS criteria Hypotension End-stage renal disease on hemodialysis Hypernatremia History of heart block status post dual chamber placement Cardiomyopathy with ejection fraction 35-40% Plan: Continue with antibiotics IV vancomycin with dialysis follow-up culture results Consult infectious disease team and surgery team Continue with dialysis per nephrology team, with plan to switch peritoneal dialysis to hemodialysis Labs and medication were reviewed.. Continue same treatment. Continue with symptomatic treatment. Resume home medication. Monitor labs and vitals. DVT and GI prophylaxis. Further recommendations as per clinical course of the patient DVT prophylaxis: Subcutaneous heparin GI Prophylaxis: Ppi PT/OT: Pending Prognosis is guarded
--- NOTE | 2023-06-09 19:17 | P.PN ---
Subjective Progress Note Date: 06/09/23 Principal diagnosis: Reason for follow-up is peritoneal dialysis associated peritonitis Patient is a 77-year-old male with a past medical history significant for atrial fibrillation diabetes mellitus hypertension hyperlipidemia end-stage renal disease currently on peritoneal dialysis presenting to the hospital for evaluation of abdominal pain, patient has been diagnosed with a PD catheter assisted peritonitis. On today's evaluation that is 06/09/2023, the patient remains to be afebrile, the patient is breathing comfortably on 3LNC oxygen, the patient denies short ness of breath, chest pain and no cough , patient abdominal pain has decreased in intensity, no nausea/vomiting and the patient diarrhea has improved with no bowel movement today Patient did have a white count is down to 12.8, creatinine is 4.76 as of yesterday, peritoneal fluid with a white count of 1775 cultures are growing coagulase negative staph Objective - Vital Signs Vital signs: Vital Signs Temp 97.9 F 06/09/23 11:21 Pulse 71 06/09/23 11:21 Resp 18 06/09/23 11:21 BP 89/49 06/09/23 11:21 Pulse Ox 97 06/09/23 11:21 FiO2 Intake & Output 06/08/23 06/09/23 06/09/23 18:59 06:59 18:59 Intake Total 0 Balance 0 Weight 106.2 kg Intake: Oral 0 Other: Voiding Method Bedside Commode Bedside Commode Bedside Commode Urinal Urinal Urinal Diaper Diaper Diaper # Voids 1 1 # Bowel Movements 1 - Exam GENERAL DESCRIPTION: An elderly male lying in bed in no distress RESPIRATORY SYSTEM: Unlabored breathing , clear to auscultation anteriorly HEART: S1 S2 regular rate and rhythm , ABDOMEN: Soft , mild distention and tenderness EXTREMITIES: No edema feet - Labs CBC & Chem 7: 06/08/23 07:28 06/08/23 07:28 Labs: Abnormal Lab Results - Last 24 Hours (Table) 06/08/23 06/08/23 06/09/23 Range/Units 16:40 16:48 00:34 POC Glucose (mg/dL) 204 H 145 H (70-110) mg/dL Hep Bs Antibody A (Negative) 06/09/23 Range/Units 06:20 POC Glucose (mg/dL) 137 H (70-110) mg/dL Hep Bs Antibody (Negative) Microbiology - Last 24 Hours (Table) 06/06/23 18:35 Gram Stain - Preliminary Peritoneal Fluid Body Fluid Culture - Preliminary 06/05/23 10:56 Blood Culture - Preliminary Blood 06/05/23 12:16 Gram Stain - Final Dialysate Body Fluid Culture - Final Staphylococcus epidermidis Assessment and Plan (1) Dialysis-associated peritonitis Current Visit: Yes Status: Acute Code(s): T85.71XA - INFECT/INFLM REACTION DUE TO PERITON DIALYSIS CATHETER, INIT SNOMED Code(s): 784735419 (2) Leukocytosis Current Visit: No Status: Acute Code(s): D72.829 - ELEVATED WHITE BLOOD CELL COUNT, UNSPECIFIED SNOMED Code(s): 976447038 Plan: 1patient presented to hospital with abdominal pain in this patient with a history of end-stage renal disease on peritoneal dialysis concerning for PD catheter associated peritonitis patient did have elevated white count no fever CT abdominal pelvis did show ascites but no other abnormality patient did have a peritoneal dialysis fluid culture positive for staph epi on 05/10/2023, could be likely the same pathogen 2-peritoneal peritoneal Fluid cell count cell count of 1775 culture are currently growing coagulase negative staph 3Plan is for patient to be transitioned to hemodialysis peritoneal dialysis has been put on hold, dialysis catheter will be placed today and will continue with vancomycin pharmacy to dose 4patient with significant diarrhea improved with Questran , to continue Dictation was produced using [employer] software. please excuse any grammatical, word or spelling errors. Time with Patient: Less than 30
[2023-06-09] MEDS ORDERED: VANCOMYCIN 1,500 MG in SODIUM CHLORIDE 0.9% 500 ML 500 ML IVPB ONE (20:00)
[2023-06-09] MEDS: Acetaminophen-Codeine 300-30mg TAB PO PRN (20:05)
[2023-06-10 00:01] LABS: Glucose,Whole Blood 143 mg/dL (70-110)
[2023-06-10 06:08] LABS: Glucose,Whole Blood 131 mg/dL (70-110)
[2023-06-10] MEDS: INSULIN ASPART (NovoLOG) 100 UNIT/ML VIAL SQ SCH ×3 (07:25→17:29)
--- NOTE | 2023-06-10 07:48 | P.GSCN ---
History of Present Illness History of present illness: 77-year-old gentleman patient has history of chronic renal failure. Patient treated with peritoneal dialysis patient has a bacterial peritonitis. Considered did for placement of a dialysis catheter. History of congestive heart failure, ejection fraction 40% history of diabetes patient has a dual-chamber pacemaker on left side of the chest patient also had a wound on the right side possible pacemaker patient had a bilateral venogram done in the past we will review the film Neck is supple Chest few crackles in bases ulcer second sound present Abdomen protuberant patient has a peritoneal dialysis catheter Femorals are deep plan is placement of a dialysis catheter Past Medical History Past Medical History: Atrial Fibrillation, COPD, Diabetes Mellitus, Dialysis, GERD/Reflux, Hyperlipidemia, Hypertension, Osteoarthritis (OA), Renal Disease, Sleep Apnea/CPAP/BIPAP, Thyroid Disorder Additional Past Medical History / Comment(s): O2 3L per nasal cannula. Dialysis MOWEFR. Cardiomyopathy. Gout. Constipation. 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 hemodialysis cath, peritoneal dialysis Past Anesthesia/Blood Transfusion Reactions: No Reported Reaction Type of Cardiac Device: Permanent Pacemaker Device Placement Date:: 10/17/2012 Past Psychological History: No Psychological Hx Reported Smoking Status: Former smoker Past Alcohol Use History: None Reported Past Drug Use History: None Reported - Past Family History Father History Unknown: Yes Additional Family Medical History / Comment(s): "hardening of the arteries" Mother History Unknown: Yes Additional Family Medical History / Comment(s): "water in the lungs" at 95. Medications and Allergies Home Medications Medication Instructions Recorded Confirmed Type allopurinoL [Zyloprim] 300 mg PO DAILY 11/21/14 06/05/23 History Acetaminophen Tab [Tylenol] 650 mg PO BID 07/12/16 06/05/23 History Multivitamins, Thera [Multivitamin 1 tab PO DAILY 10/03/17 06/05/23 History (formulary)] Lovastatin [Altoprev] 40 mg PO HS 05/24/21 06/05/23 History Aspirin [Adult Low Dose Aspirin EC] 81 mg PO DAILY 03/29/22 06/05/23 History Lactulose 2 tsp PO DAILY 03/29/22 06/05/23 History Omeprazole 40 mg PO DAILY 03/29/22 06/05/23 History Torsemide [Demadex] 80 mg PO DAILY 03/29/22 06/05/23 History Midodrine HCl [ProAmatine] 10 mg PO QID 02/14/23 06/05/23 History glipiZIDE [Glucotrol] 10 mg PO AC-BID 02/14/23 06/05/23 History Sucralfate [Carafate] 1 gm PO BID 02/15/23 06/05/23 History Amiodarone [Cordarone] 400 mg PO DAILY 05/10/23 06/05/23 History Docusate [Colace] 100 mg PO BID 05/10/23 06/05/23 History Fludrocortisone [Florinef] 0.1 mg PO DAILY 05/10/23 06/05/23 History Potassium Chloride ER [K-Dur 20] 20 meq PO BID 05/10/23 06/05/23 History Ferrous Sulfate [Feosol] 325 mg PO DAILY 30 Days #60 tab 05/12/23 06/05/23 Rx Allergies Allergy/AdvReac Type Severity Reaction Status Date / Time lisinopril AdvReac Mild Cough Verified 06/05/23 07:46 Surgical - Exam Vital Signs Temp Pulse Resp BP Pulse Ox 98.9 F 78 18 102/70 99 06/04/23 21:01 06/04/23 21:01 06/04/23 21:01 06/04/23 21:01 06/04/23 21:01 Results - Labs 06/08/23 07:28 06/08/23 07:28 Abnormal Lab Results - Last 24 Hours (Table) 06/09/23 06/09/23 06/09/23 Range/Units 11:46 16:08 23:59 POC Glucose (mg/dL) 124 H 116 H 143 H (70-110) mg/dL 06/10/23 Range/Units 06:07 POC Glucose (mg/dL) 131 H (70-110) mg/dL Microbiology - Last 24 Hours (Table) 06/06/23 18:35 Gram Stain - Preliminary Peritoneal Fluid Body Fluid Culture - Preliminary
[2023-06-10] MEDS ORDERED: MIDAZOLAM 2 MG/2 ML VIAL IVP ONE (08:30)
[2023-06-10] MEDS ORDERED: LIDOCAINE 1% INJ 10MG/ML (20 ML MDV) SQ ONE ×2 (08:38→09:01)
[2023-06-10] MEDS: SODIUM CHLORIDE 0.9% 250 ML IV ONE ×2 (08:43→11:07)
[2023-06-10] MEDS ORDERED: IOPAMIDOL-370 100ML BTL INJ ONE (08:46)
[2023-06-10] MEDS: HEPARIN SODIUM 1,000 UN/ML (10ML VL) MISCELLANE ONE ×2 (09:00→09:01)
--- NOTE | 2023-06-10 09:08 | P.PCN ---
Description of Procedure: Preoperative diagnoses is acute chronic renal failure Postoperative same patient has a infected peritoneal dialysis catheter Procedure #1 is a is a venogram right subclavian and vena cava and IJ was visualized Nery of the neck and chest was prepped and draped applied sterile manner 1% lidocaine were infiltrated in the neck and chest area. Ultrasound- guided micropuncture introducer right jugular vein micropuncture guidewire was passed and 4 sheath advanced top of guidewire after that we created tendon through the tunnel brought 23 same dialysis catheter patient has a pacemaker on the left side of the chest a guidewire was passed which was parked at the inferior vena cava dilator was advanced top the guidewire under fluoroscopy control she sheath was advanced. The guidewire through the sheath we introduced the dialysis catheter tip of catheter superior vena cava at the junction flush with heparin saline and Hep-Lock secured with 3-0 nylon dressing applied patient are to the procedure well
--- NOTE | 2023-06-10 09:15 | P.PN ---
Subjective This is a pleasant 77 years old male with past medical history of end-stage renal disease undergoing peritoneal dialysis, history of cardiomyopathy and heart block status post dual chamber pacemaker , diabetes mellitus, GERD, low blood pressure, hyperlipidemia, constipation history of atrial fibrillation, sleep apnea patient presents because of abdominal pain on the right side. He says that his pain about 10/10 and his been going on for the last 2 weeks but gets more worse recently over 1-2 days. He reports some loose stool and diarrhea, he had 1 loose bowel movement yesterday. He is not able to eat but no vomiting Currently denies chest pain or dyspnea. No urinary complaints. No headache. No weakness numbness. He is nonsmoker no alcohol or no illicit drugs. Blood pressure currently the low side 86/54. Sodium 126, creatinine 4.7, glucose 148, magnesium 1.1, liver enzymes not elevated. ProBNP is 10,000. Lipase 198. Chest x-ray: No acute process except for trace bilateral pleural effusion CT of the abdomen and pelvis: Abdominal and pelvic ascites with peritoneal dialysis catheter in place. Small hiatal hernia, diverticulosis without acute diverticulitis, no small bowel obstruction, no free intraperitoneal air 05/06/2023 Patient's abdominal pain is better, it looks relaxed. He tolerates diet well 25-100% Peritoneal fluid cultures pending I discussed the case with ID team, undergone a treatment him with intraperit tobar vancomycin as he has previous culture from staph hominis recently. 06/07/2023 Patient is more up in bed, more awake and stronger although not completely back to baseline Although he tolerated some his diet however he still saw recurrent because of his infection in the intraperitoneal cavity. Culture is growing A's-negative staph. Antibiotics was adjusted to IV vancomycin only Plan to switch his peritoneal dialysis to hemodialysis by placing permacath tomorrow 06/08/2023 Patient had little more abdominal pain last night, he uses only Tylenol and he thinks that caused too much for him before going to the, Tylenol No. 3. Patient tolerates diet to certain level. His leukocytosis is improving He remains on IV vancomycin and culture is growing coagulase-negative staph. Plan to change his peritoneal dialysis catheter and to hemodialysis catheter tomorrow. C. diff tests is requested for diarrhea although the suspicion is low 06/09/2023 Patient abdominal pain is improving Diarrhea stopped after adding Questran Patient pending hemodialysis catheter placement to switch his peritoneal dialysis until HD and remove the PD catheter 06/10/2023 Patient improving slowly and gradually His abdominal pain is much better/10 and will control with pain medication His diarrhea improved after adding Questran however he still have some loose stool today. Plan to obtain hemodialysis catheter today shows large peritoneal dialysis and to hemodialysis and discontinue with the peritoneal catheter. Peritoneal fluid culture is growing staph epidermidis and patient currently covered with IV vancomycin Objective - Vital Signs Vital signs: Vital Signs Temp 97.5 F L 06/09/23 19:35 Pulse 82 06/10/23 04:12 Resp 18 06/10/23 04:12 BP 103/66 06/10/23 04:12 Pulse Ox 92 L 06/10/23 07:51 FiO2 Intake & Output 06/09/23 06/10/23 06/10/23 18:59 06:59 18:59 Intake Total 0 50 Output Total 1 Balance -1 50 Weight 110.5 kg Intake: IV 50 Oral 0 Output: Urine 1 Other: Voiding Method Bedside Commode Bedside Commode Urinal Urinal Diaper Diaper # Bowel Movements 1 1 - Exam GENERAL: The patient is alert and oriented x3, not in any acute distress. Well developed, well nourished. HEENT: Pupils are round and equally reacting to light. EOMI. No scleral icterus. No conjunctival pallor. Normocephalic, atraumatic. No pharyngeal erythema. No thyromegaly. CARDIOVASCULAR: S1 and S2 present. No murmurs, rubs, or gallops. PULMONARY: Chest is clear to auscultation, no wheezing , no crackles. ABDOMEN: Soft, nontender, nondistended, normoactive bowel sounds. No palpable organomegaly. MUSCULOSKELETAL: No joint swelling or deformity. EXTREMITIES: No cyanosis, clubbing, or pedal edema. NEUROLOGICAL: Gross neurological examination did not reveal any focal deficits. SKIN: No rashes. no petechiae. - Labs CBC & Chem 7: 06/08/23 07:28 06/08/23 07:28 Labs: Abnormal Lab Results - Last 24 Hours (Table) 06/09/23 06/09/23 06/09/23 Range/Units 11:46 16:08 23:59 POC Glucose (mg/dL) 124 H 116 H 143 H (70-110) mg/dL 06/10/23 Range/Units 06:07 POC Glucose (mg/dL) 131 H (70-110) mg/dL Microbiology - Last 24 Hours (Table) 06/06/23 18:35 Gram Stain - Preliminary Peritoneal Fluid Body Fluid Culture - Preliminary Assessment and Plan Assessment: Right lower quadrant abdominal tenderness suspicious for peritonitis versus other, and in view of his ascites and dialysis catheter Possible sepsis with leukocytosis and tachypnea as he meets SIRS criteria Hypotension End-stage renal disease on hemodialysis Hypernatremia History of heart block status post dual chamber placement Cardiomyopathy with ejection fraction 35-40% Plan: Continue with antibiotics IV vancomycin with dialysis follow-up culture results Consult infectious disease team and surgery team Continue with dialysis per nephrology team, with plan to switch peritoneal dialysis to hemodialysis Labs and medication were reviewed.. Continue same treatment. Continue with symptomatic treatment. Resume home medication. Monitor labs and vitals. DVT and GI prophylaxis. Further recommendations as per clinical course of the patient DVT prophylaxis: Subcutaneous heparin GI Prophylaxis: Ppi PT/OT: Pending Prognosis is guarded
--- NOTE | 2023-06-10 09:44 | XR ---
EXAMINATION TYPE: XR chest 1V portable DATE OF EXAM: 06/10/2023 9:38 AM CLINICAL INDICATION:Male, 77 years old with history of Hemodialysis catheter placement; [facility] COMPARISON: Chest radiographs from TECHNIQUE: XR chest 1V portable Frontal view of the chest. FINDINGS: Lungs/Pleura: Subsegmental atelectasis is noted in the lung bases. No evidence of pleural effusion or pneumothorax. Pulmonary vascularity: Unremarkable. Heart/mediastinum: Cardiomediastinal silhouette is unremarkable. Atherosclerotic calcifications are seen in the aorta. Musculoskeletal: No acute osseous pathology. Other findings: Left chest wall AICD device. Lines/Tubes: Interval placement of right-sided dialysis catheter with tip near the cavoatrial junction. IMPRESSION: Interval placement of right sided dialysis catheter which is in appropriate position. Otherwise stabl e exam.
[2023-06-10] MEDS: MIDODRINE 5 MG TAB PO SCH ×4 (09:47→21:40)
[2023-06-10] MEDS: Acetaminophen-Codeine 300-30mg TAB PO PRN (09:47)
[2023-06-10] MEDS: CALCIUM ACETATE 667 MG TAB PO SCH ×3 (10:01→17:29)
[2023-06-10] MEDS: ASPIRIN 81 MG PO SCH (10:02)
[2023-06-10] MEDS: FERROUS SULFATE 325 MG TAB PO SCH (10:02)
[2023-06-10] MEDS: SUCRALFATE 1 GM TAB PO SCH ×2 (10:02→20:46)
[2023-06-10] MEDS: PANTOPRAZOLE 40 MG/10 ML VIAL IVP SCH (10:02)
[2023-06-10] MEDS: AMIODARONE 200 MG TAB PO SCH (10:02)
[2023-06-10] MEDS: allopurinoL 300 MG TAB PO SCH (10:02)
--- NOTE | 2023-06-10 10:03 | P.PN ---
Progress Note - Text Progress Note Date: 06/10/23 The patient may still. The patient just had his temporary hemodialysis catheter placed. We will plan for removal of CAPD catheter in the a.m.
[2023-06-10] MEDS: DOCUSATE 100 MG CAP PO SCH ×2 (10:04→20:46)
[2023-06-10] MEDS: CHOLESTYRAMINE (WITH SUGAR) 4 GM PACKET PO SCH ×2 (10:04→17:07)
[2023-06-10] MEDS: HEPARIN SODIUM,PORCINE 5,000 UNIT/ML 1 ML VIAL SQ SCH ×2 (10:04→20:46)
[2023-06-10] MEDS ORDERED: SODIUM CHLORIDE 0.9% 500 ML 250 ML IV ONE (10:23)
[2023-06-10] MEDS: FLUDROCORTISONE 0.1 MG TAB PO SCH (11:06)
--- NOTE | 2023-06-10 11:48 | P.PN ---
Subjective Progress Note Date: 06/10/23 The patient is a 77-year-old male who is currently admitted to the hospital with peritonitis secondary to peritoneal dialysis cath port infection. Cardiology was consulted for congestive heart failure as well as following Dr. Witt in the office. The patient underwent hemodialysis catheter placement yesterday with Dr. Ruby. He tolerated the procedure well, however he is hypotensive today Patient was interviewed and examined resting in bed. He appears comfortable and is breathing well. He denies any dizziness, lightheadedness, or fatigue. GENERAL: Ill-appearing, obese male. NECK: Supple without JVD or thyromegaly. LUNGS: Breath sounds diminished to auscultation bilaterally. Respiration equal. No wheezes, rales or rhonchi. HEART: Regular rate and rhythm without murmurs, rubs or gallops. S1 and S2 heard. EXTREMITIES: Normal range of motion. Moderate generalized edema. No clubbing or cyanosis. Peripheral pulses intact and strong. TELEMETRY: Paced rhythm IMPRESSION: Abdominal pain with leukocytosis Peritonitis secondary to peritoneal cath port infection Hypotension End-stage renal disease Chronic congestive heart failure with reduced ejection fraction, EF 35-40% Severe pulmonary hypertension Persistent A. fib Hypertension Diabetes Sick sinus syndrome status post permanent pacemaker implantation PLAN: Check BMP and mag May need to delay hemodialysis today secondary to hypotension Increase midodrine to match home dosing Resume fludrocortisone Further recommendations to be based on clinical course I am dictating on behalf of Dr Rusty Witt's history/physical and asse ssment/plan. Objective - Vital Signs Vital signs: Vital Signs Temp 97.3 F L 06/10/23 09:40 Pulse 82 06/10/23 04:12 Resp 18 06/10/23 09:40 BP 80/52 06/10/23 09:40 Pulse Ox 95 06/10/23 09:40 FiO2 Intake & Output 06/09/23 06/10/23 06/10/23 18:59 06:59 18:59 Intake Total 0 150 Output Total 1 Balance -1 150 Weight 110.5 kg Intake: IV 50 Oral 0 100 Output: Urine 1 Other: Voiding Method Bedside Commode Bedside Commode Urinal Urinal Diaper Diaper # Bowel Movements 1 1 - Labs CBC & Chem 7: 06/08/23 07:28 06/08/23 07:28 Labs: Abnormal Lab Results - Last 24 Hours (Table) 06/09/23 06/09/23 06/09/23 Range/Units 11:46 16:08 23:59 POC Glucose (mg/dL) 124 H 116 H 143 H (70-110) mg/dL 06/10/23 Range/Units 06:07 POC Glucose (mg/dL) 131 H (70-110) mg/dL Microbiology - Last 24 Hours (Table) 06/06/23 18:35 Gram Stain - Preliminary Peritoneal Fluid Body Fluid Culture - Preliminary
--- NOTE | 2023-06-10 11:51 | P.PN ---
Subjective Progress Note Date: 06/10/23 Principal diagnosis: Reason for follow-up is peritoneal dialysis associated peritonitis Patient is a 77-year-old male with a past medical history significant for atrial fibrillation diabetes mellitus hypertension hyperlipidemia end-stage renal disease currently on peritoneal dialysis presenting to the hospital for evaluation of abdominal pain, patient has been diagnosed with a PD catheter assisted peritonitis. Patient did have a right IJ dialysis catheter placed on 06/09/2020 On today's evaluation that is 06/10/2023, the patient continues to be afebrile, the patient is breathing comfortably on 3 L nasal cannula supplemental oxygen, the patient denies chest pain shortness of breath or cough , patient denies nausea/vomiting , no abdominal pain and no worsening diarrhea Patient did have a white count is down to 12.8, creatinine is 4.76 as of 06/08/2023, peritoneal fluid with a white count of 1775 cultures are growing coagulase negative staph Objective - Vital Signs Vital signs: Vital Signs Temp 97.3 F L 06/10/23 09:40 Pulse 82 06/10/23 04:12 Resp 18 06/10/23 09:40 BP 80/52 06/10/23 09:40 Pulse Ox 95 06/10/23 09:40 FiO2 Intake & Output 06/09/23 06/10/23 06/10/23 18:59 06:59 18:59 Intake Total 0 150 Output Total 1 Balance -1 150 Weight 110.5 kg Intake: IV 50 Oral 0 100 Output: Urine 1 Other: Voiding Method Bedside Commode Bedside Commode Urinal Urinal Diaper Diaper # Bowel Movements 1 1 - Exam GENERAL DESCRIPTION: An elderly male lying in bed in no distress RESPIRATORY SYSTEM: Unlabored breathing , clear to auscultation anteriorly HEART: S1 S2 regular rate and rhythm , ABDOMEN: Soft , mild distention and tenderness EXTREMITIES: No edema feet - Labs CBC & Chem 7: 06/08/23 07:28 06/08/23 07:28 Labs: Abnormal Lab Results - Last 24 Hours (Table) 06/09/23 06/09/23 06/09/23 Range/Units 11:46 16:08 23:59 POC Glucose (mg/dL) 124 H 116 H 143 H (70-110) mg/dL 06/10/23 Range/Units 06:07 POC Glucose (mg/dL) 131 H (70-110) mg/dL Microbiology - Last 24 Hours (Table) 06/06/23 18:35 Gram Stain - Preliminary Peritoneal Fluid Body Fluid Culture - Preliminary Assessment and Plan (1) Dialysis-associated peritonitis Current Visit: Yes Status: Acute Code(s): T85.71XA - INFECT/INFLM REACTION DUE TO PERITON DIALYSIS CATHETER, INIT SNOMED Code(s): 149316458 (2) Leukocytosis Current Visit: No Status: Acute Code(s): D72.829 - ELEVATED WHITE BLOOD CELL COUNT, UNSPECIFIED SNOMED Code(s): 205104049 Plan: 1patient presented to hospital with abdominal pain in this patient with a history of end-stage renal disease on peritoneal dialysis concerning for PD catheter associated peritonitis patient did have elevated white count no fever CT abdominal pelvis did show ascites but no other abnormality patient did have a peritoneal dialysis fluid culture positive for staph epi on 05/10/2023, could be likely the same pathogen 2-peritoneal peritoneal Fluid cell count cell count of 1775 culture are currently growing coagulase negative staph 3patient has been transitioned to hemodialysis with the placement of right IJ dialysis catheter patient to continue the vancomycin pharmacy to dose 4patient with diarrhea, did have some improvement with Questran which will be continued Dictation was produced using [employer] dictation software. please excuse any grammatical, word or spelling errors. Time with Patient: Less than 30
[2023-06-10] MEDS ORDERED: VANCOMYCIN 1,500 MG in SODIUM CHLORIDE 0.9% 500 ML 500 ML IVPB ONE (12:00)
[2023-06-10 12:04] LABS: Glucose,Whole Blood 182 mg/dL (70-110)
[2023-06-10 12:22] LABS: ALT 13 U/L (4-49); AST 19 U/L (17-59); African American GFR (CKD) 9 (>60 ml/min/1.73 sqM); Albumin 2.4 g/dL (3.5-5.0); Alkaline Phosphatase 119 U/L (38-126); Anion Gap 17 mmol/L; Blood Urea Nitrogen 65 mg/dL (9-20); Calcium 8.4 mg/dL (8.4-10.2); Carbon Dioxide 16 mmol/L (22-30); Chloride 93 mmol/L (98-107); Glucose 141 mg/dL (74-99); Magnesium 1.7 mg/dL (1.6-2.3); Non-African American GFR(CKD) 8 (>60 ml/min/1.73 sqM); Potassium 3.8 mmol/L (3.5-5.1); Sodium 126 mmol/L (137-145); Total Bilirubin 0.4 mg/dL (0.2-1.3); Total Protein 5.4 g/dL (6.3-8.2)
[2023-06-10] MEDS ORDERED: SODIUM CHLORIDE 0.9% 250 ML IV ONE (13:30)
[2023-06-10] MEDS ORDERED: SODIUM CHLORIDE 0.9% 500 ML 500 ML IV ONE ×2 (13:39→17:42)
[2023-06-10 14:43] LABS: Anisocytosis Slight; HCT 27.6 % (39.0-53.0); Hypochromasia Slight; MCH 32.3 pg (25.0-35.0); MCHC 32.7 g/dL (31.0-37.0); MCV 98.9 fL (80.0-100.0); Macrocytosis Slight; Mean Platelet Volume 7.6; Platelet Count 290 k/uL (150-450); Poikilocytosis Slight; RBC 2.79 m/uL (4.30-5.90); RDW 18.2 % (11.5-15.5); WBC 15.1 k/uL (3.8-10.6)
--- NOTE | 2023-06-10 15:35 | P.PN ---
Subjective Progress Note Date: 06/10/23 Follow-up for ESRD. Permacath was placed this morning, unable to do dialysis with hypotension. Objective - Vital Signs Vital signs: Vital Signs Temp 97.3 F L 06/10/23 09:40 Pulse 82 06/10/23 04:12 Resp 18 06/10/23 14:00 BP 72/40 06/10/23 14:45 Pulse Ox 94 L 06/10/23 12:00 FiO2 Intake & Output 06/09/23 06/10/23 06/10/23 18:59 06:59 18:59 Intake Total 0 318 Output Total 1 Balance -1 318 Weight 110.5 kg Intake: IV 100 .9 50 Oral 0 218 Output: Urine 1 Other: Voiding Method Bedside Commode Bedside Commode Bedside Commode Urinal Urinal Urinal Diaper Diaper Diaper # Bowel Movements 1 1 - Exam No acute distress S1-S2 heard, right jugular permacath Decreased breath sounds Abdomen soft Edema - Labs CBC & Chem 7: 06/10/23 14:22 06/10/23 11:42 Labs: Abnormal Lab Results - Last 24 Hours (Table) 06/09/23 06/09/23 06/10/23 Range/Units 16:08 23:59 06:07 WBC (3.8-10.6) k/uL RBC (4.30-5.90) m/uL Hgb (13.0-17.5) gm/dL Hct (39.0-53.0) % RDW (11.5-15.5) % Sodium (137-145) mmol/L Chloride (98-107) mmol/L Carbon Dioxide (22-30) mmol/L BUN (9-20) mg/dL Creatinine (0.66-1.25) mg/dL Glucose (74-99) mg/dL POC Glucose (mg/dL) 116 H 143 H 131 H (70-110) mg/dL Total Protein (6.3-8.2) g/dL Albumin (3.5-5.0) g/dL 06/10/23 06/10/23 06/10/23 Range/Units 11:42 11:59 14:22 WBC 15.1 H (3.8-10.6) k/uL RBC 2.79 L (4.30-5.90) m/uL Hgb 9.0 L D (13.0-17.5) gm/dL Hct 27.6 L (39.0-53.0) % RDW 18.2 H (11.5-15.5) % Sodium 126 L (137-145) mmol/L Chloride 93 L (98-107) mmol/L Carbon Dioxide 16 L (22-30) mmol/L BUN 65 H (9-20) mg/dL Creatinine 6.17 H (0.66-1.25) mg/dL Glucose 141 H (74-99) mg/dL POC Glucose (mg/dL) 182 H (70-110) mg/dL Total Protein 5.4 L (6.3-8.2) g/dL Albumin 2.4 L (3.5-5.0) g/dL Microbiology - Last 24 Hours (Table) 06/06/23 18:35 Gram Stain - Preliminary Peritoneal Fluid Body Fluid Culture - Preliminary Assessment and Plan Assessment: #1 ESRD on peritoneal dialysis. #2 hypervolemic hyponatremia #3 secondary bacterial peritonitis secondary to peritoneal dialysis catheter. #4 CHF with systolic dysfunction EF of 40% #5 persistent A. fib #6 anemia with chronic kidney disease #7 metabolic bone disease #8 chronic hypotension Plan: #1 patient refused to do peritoneal dialysis and unable to do hemodialysis today with hypotension. #2 continue with midodrine, IV fluid boluses. #3 hemodialysis in the morning
[2023-06-10] MEDS: SODIUM CHLORIDE 0.9% 250 ML IV SCH ×3 (15:51→17:43)
[2023-06-10 16:48] LABS: Glucose,Whole Blood 180 mg/dL (70-110)
[2023-06-10 19:47] LABS: Glucose,Whole Blood 144 mg/dL (70-110)
[2023-06-10 19:53] LABS: Anisocytosis Slight; HGB 9.2 gm/dL (13.0-17.5); Hypochromasia Slight; MCH 32.5 pg (25.0-35.0); MCHC 32.7 g/dL (31.0-37.0); MCV 99.4 fL (80.0-100.0); Macrocytosis Slight; Mean Platelet Volume 7.5; Platelet Count 290 k/uL (150-450); RBC 2.81 m/uL (4.30-5.90); RDW 18.1 % (11.5-15.5); WBC 14.4 k/uL (3.8-10.6)
[2023-06-10] MEDS: NOREPINEPHRINE 4 MG in SODIUM CHLORIDE 0.9% 250 ML IV SCH (20:08)
[2023-06-11] MEDS: ACETAMINOPHEN TAB 500 MG TAB PO PRN ×2 (00:02→20:50)
[2023-06-11 00:08] LABS: Glucose,Whole Blood 162 mg/dL (70-110)
[2023-06-11] MEDS: INSULIN ASPART (NovoLOG) 100 UNIT/ML VIAL SQ SCH ×4 (00:08→17:19)
[2023-06-11] MEDS: NOREPINEPHRINE 4 MG in SODIUM CHLORIDE 0.9% 250 ML IV SCH ×4 (03:00→19:00)
[2023-06-11 04:18] LABS: Anisocytosis Slight; Basophils % (A) 0 %; Eosinophils # (A) 0.1 k/uL (0-0.7); Eosinophils % (A) 1 %; HCT 30.4 % (39.0-53.0); HGB 9.8 gm/dL (13.0-17.5); Hypochromasia Slight; Lymphocytes # (A) 1.3 k/uL (1.0-4.8); Lymphocytes % (A) 9 %; MCH 31.9 pg (25.0-35.0); MCHC 32.2 g/dL (31.0-37.0); Macrocytosis Slight; Mean Platelet Volume 7.5; Monocytes # (A) 0.4 k/uL (0-1.0); Monocytes % (A) 2 %; Neutrophils # (A) 13.1 k/uL (1.3-7.7); Neutrophils % (A) 87 %; Platelet Count 330 k/uL (150-450); RBC 3.07 m/uL (4.30-5.90)
[2023-06-11 04:27] LABS: African American GFR (CKD) 9 (>60 ml/min/1.73 sqM); Anion Gap 16 mmol/L; Blood Urea Nitrogen 67 mg/dL (9-20); Calcium 8.4 mg/dL (8.4-10.2); Carbon Dioxide 15 mmol/L (22-30); Chloride 95 mmol/L (98-107); Glucose 141 mg/dL (74-99); Non-African American GFR(CKD) 8 (>60 ml/min/1.73 sqM); Potassium 4.2 mmol/L (3.5-5.1); Sodium 126 mmol/L (137-145)
[2023-06-11 04:33] LABS: Vancomycin,Random 23.6 ug/mL
[2023-06-11 06:29] LABS: Glucose,Whole Blood 149 mg/dL (70-110)
[2023-06-11] MEDS: CALCIUM ACETATE 667 MG TAB PO SCH ×3 (06:48→17:16)
--- NOTE | 2023-06-11 07:05 | P.PN ---
Subjective Progress Note Date: 06/11/23 Principal diagnosis: Permanent pacemaker The patient is a 77-year-old gentleman with a past medical history significant for permanent pacemaker and cardiomyopathy and persistent in nature. Patient currently not on anticoagulation as well as multiple comorbid conditions including renal failure and dialysis was admitted to the hospital with abdominal discomfort felt to be related to peritonitis. 06/17/2023 The patient was seen and evaluated this morning. He seems to be stable beside he is on a very small dose of norepinephrine we are in process of weaning him from. His knee pressure is about 60 mmHg and systolic pressure above 90 mmHg. He is asymptomatic at this point. He is in paced atrial rhythm. We are in process of weaning the patient from norepinephrine. For some reason the patient is not on any oral anticoagulation. From the cardiac standpoint of view, we will continue the current medical regimen. Continue weaning the patient from norepinephrine. And follow-up with the patient. The examination is remarkable for regular rhythm with a systolic murmur at the right and left upper sternal border and diminished breathing sounds bilaterally and mild bilateral lower extremities edema Assessment Heart failure, the patient seems to be euvolemic at this point Hypotension requiring small dose of norepinephrine Cardiomyopathy Persistent atrial fibrillation Permanent pacemaker End-stage renal failure Plan Try to wean the patient from norepinephrine Continue the current medical regimen Follow-up with the patient Objective - Vital Signs Vital signs: Vital Signs Temp 98.1 F 06/11/23 04:00 Pulse 67 06/11/23 06:00 Resp 17 06/11/23 06:00 BP 98/52 06/11/23 06:00 Pulse Ox 96 06/11/23 06:00 FiO2 Intake & Output 06/10/23 06/11/23 06/11/23 18:59 06:59 18:59 Intake Total 318 266.630 Output Total 0 Balance 318 266.630 Weight 115.7 kg Intake: IV 100 .9 50 Intake, IV Titration 266.630 Amount Norepinephrine 4 mg In 266.630 Sodium Chloride 0.9% 250 ml @ 0.03 MCG/KG/MIN 12. 63 mls/hr IV .Q20H7M [facility] Rx#:[id number] Oral 218 Output: Urine 0 Other: Voiding Method Bedside Commode CAPD Urinal Diaper - Labs CBC & Chem 7: 06/11/23 03:29 06/11/23 03:29 Labs: Abnormal Lab Results - Last 24 Hours (Table) 06/10/23 06/10/23 06/10/23 Range/Units 11:42 11:59 14:22 WBC 15.1 H (3.8-10.6) k/uL RBC 2.79 L (4.30-5.90) m/uL Hgb 9.0 L D (13.0-17.5) gm/dL Hct 27.6 L (39.0-53.0) % RDW 18.2 H (11.5-15.5) % Neutrophils # (1.3-7.7) k/uL Sodium 126 L (137-145) mmol/L Chloride 93 L (98-107) mmol/L Carbon Dioxide 16 L (22-30) mmol/L BUN 65 H (9-20) mg/dL Creatinine 6.17 H (0.66-1.25) mg/dL Glucose 141 H (74-99) mg/dL POC Glucose (mg/dL) 182 H (70-110) mg/dL Total Protein 5.4 L (6.3-8.2) g/dL Albumin 2.4 L (3.5-5.0) g/dL 06/10/23 06/10/23 06/10/23 Range/Units 16:42 19:22 19:45 WBC 14.4 H (3.8-10.6) k/uL RBC 2.81 L (4.30-5.90) m/uL Hgb 9.2 L (13.0-17.5) gm/dL Hct 28.0 L (39.0-53.0) % RDW 18.1 H (11.5-15.5) % Neutrophils # (1.3-7.7) k/uL Sodium (137-145) mmol/L Chloride (98-107) mmol/L Carbon Dioxide (22-30) mmol/L BUN (9-20) mg/dL Creatinine (0.66-1.25) mg/dL Glucose (74-99) mg/dL POC Glucose (mg/dL) 180 H 144 H (70-110) mg/dL Total Protein (6.3-8.2) g/dL Albumin (3.5-5.0) g/dL 06/11/23 06/11/23 06/11/23 Range/Units 00:05 03:29 03:29 WBC 15.0 H (3.8-10.6) k/uL RBC 3.07 L (4.30-5.90) m/uL Hgb 9.8 L (13.0-17.5) gm/dL Hct 30.4 L (39.0-53.0) % RDW 18.0 H (11.5-15.5) % Neutrophils # 13.1 H (1.3-7.7) k/uL Sodium 126 L (137-145) mmol/L Chloride 95 L (98-107) mmol/L Carbon Dioxide 15 L (22-30) mmol/L BUN 67 H (9-20) mg/dL Creatinine 6.37 H (0.66-1.25) mg/dL Glucose 141 H (74-99) mg/dL POC Glucose (mg/dL) 162 H (70-110) mg/dL Total Protein (6.3-8.2) g/dL Albumin (3.5-5.0) g/dL 06/11/23 Range/Units 06:27 WBC (3.8-10.6) k/uL RBC (4.30-5.90) m/uL Hgb (13.0-17.5) gm/dL Hct (39.0-53.0) % RDW (11.5-15.5) % Neutrophils # (1.3-7.7) k/uL Sodium (137-145) mmol/L Chloride (98-107) mmol/L Carbon Dioxide (22-30) mmol/L BUN (9-20) mg/dL Creatinine (0.66-1.25) mg/dL Glucose (74-99) mg/dL POC Glucose (mg/dL) 149 H (70-110) mg/dL Total Protein (6.3-8.2) g/dL Albumin (3.5-5.0) g/dL Microbiology - Last 24 Hours (Table) 06/05/23 10:56 Blood Culture - Final Blood 06/06/23 18:35 Gram Stain - Preliminary Peritoneal Fluid Body Fluid Culture - Preliminary
[2023-06-11] MEDS: ASPIRIN 81 MG PO SCH (08:57)
[2023-06-11] MEDS: AMIODARONE 200 MG TAB PO SCH (08:57)
[2023-06-11] MEDS: FERROUS SULFATE 325 MG TAB PO SCH (08:58)
[2023-06-11] MEDS: MIDODRINE 5 MG TAB PO SCH ×4 (08:58→20:50)
[2023-06-11] MEDS: SUCRALFATE 1 GM TAB PO SCH ×2 (08:58→20:50)
[2023-06-11] MEDS: DOCUSATE 100 MG CAP PO SCH ×2 (08:58→20:50)
[2023-06-11] MEDS: FLUDROCORTISONE 0.1 MG TAB PO SCH (08:58)
[2023-06-11] MEDS: HEPARIN SODIUM,PORCINE 5,000 UNIT/ML 1 ML VIAL SQ SCH ×2 (08:58→20:50)
[2023-06-11] MEDS: PANTOPRAZOLE 40 MG/10 ML VIAL IVP SCH (08:59)
[2023-06-11] MEDS: allopurinoL 300 MG TAB PO SCH (09:29)
[2023-06-11] MEDS: CHOLESTYRAMINE (WITH SUGAR) 4 GM PACKET PO SCH ×2 (09:29→17:16)
--- NOTE | 2023-06-11 11:22 | P.PN ---
Subjective Patient is seen for follow-up for end-stage renal disease. Currently receiving hemodialysis. Tolerating treatment fairly well. Complaining of significant swelling in the arms.goal UF about 1.5-2 L as tolerated. Objective - Vital Signs Vital signs: Vital Signs Temp 98.0 F 06/11/23 08:00 Pulse 70 06/11/23 11:00 Resp 17 06/11/23 11:00 BP 105/42 06/11/23 11:00 Pulse Ox 95 06/11/23 11:00 FiO2 Intake & Output 06/10/23 06/11/23 06/11/23 18:59 06:59 18:59 Intake Total 318 266.630 733.152 Output Total 0 0 Balance 318 266.630 733.152 Weight 115.7 kg Intake: IV 100 .9 50 Intake, IV Titration 266.630 313.152 Amount Norepinephrine 4 mg In 266.630 313.152 Sodium Chloride 0.9% 250 ml @ 0.03 MCG/KG/MIN 12. 63 mls/hr IV .Q20H7M [facility] Rx#:[id number] Oral 218 420 Output: Urine 0 0 Other: Voiding Method Bedside Commode CAPD Bedside Commode Urinal Urinal Diaper Diaper CAPD - Exam Patient is awake, comfortable, no acute distress Examination of the heart S1 and S2 Examination lungs decreased breath sounds at the bases Abdomen is soft obese nontender Edema noted in upper and lower extremities. [employer] exam grossly intact - Labs CBC & Chem 7: 06/11/23 03:29 06/11/23 03:29 Labs: Abnormal Lab Results - Last 24 Hours (Table) 06/10/23 06/10/23 06/10/23 Range/Units 11:42 11:59 14:22 WBC 15.1 H (3.8-10.6) k/uL RBC 2.79 L (4.30-5.90) m/uL Hgb 9.0 L D (13.0-17.5) gm/dL Hct 27.6 L (39.0-53.0) % RDW 18.2 H (11.5-15.5) % Neutrophils # (1.3-7.7) k/uL Sodium 126 L (137-145) mmol/L Chloride 93 L (98-107) mmol/L Carbon Dioxide 16 L (22-30) mmol/L BUN 65 H (9-20) mg/dL Creatinine 6.17 H (0.66-1.25) mg/dL Glucose 141 H (74-99) mg/dL POC Glucose (mg/dL) 182 H (70-110) mg/dL Total Protein 5.4 L (6.3-8.2) g/dL Albumin 2.4 L (3.5-5.0) g/dL 06/10/23 06/10/23 06/10/23 Range/Units 16:42 19:22 19:45 WBC 14.4 H (3.8-10.6) k/uL RBC 2.81 L (4.30-5.90) m/uL Hgb 9.2 L (13.0-17.5) gm/dL Hct 28.0 L (39.0-53.0) % RDW 18.1 H (11.5-15.5) % Neutrophils # (1.3-7.7) k/uL Sodium (137-145) mmol/L Chloride (98-107) mmol/L Carbon Dioxide (22-30) mmol/L BUN (9-20) mg/dL Creatinine (0.66-1.25) mg/dL Glucose (74-99) mg/dL POC Glucose (mg/dL) 180 H 144 H (70-110) mg/dL Total Protein (6.3-8.2) g/dL Albumin (3.5-5.0) g/dL 06/11/23 06/11/23 06/11/23 Range/Units 00:05 03:29 03:29 WBC 15.0 H (3.8-10.6) k/uL RBC 3.07 L (4.30-5.90) m/uL Hgb 9.8 L (13.0-17.5) gm/dL Hct 30.4 L (39.0-53.0) % RDW 18.0 H (11.5-15.5) % Neutrophils # 13.1 H (1.3-7.7) k/uL Sodium 126 L (137-145) mmol/L Chloride 95 L (98-107) mmol/L Carbon Dioxide 15 L (22-30) mmol/L BUN 67 H (9-20) mg/dL Creatinine 6.37 H (0.66-1.25) mg/dL Glucose 141 H (74-99) mg/dL POC Glucose (mg/dL) 162 H (70-110) mg/dL Total Protein (6.3-8.2) g/dL Albumin (3.5-5.0) g/dL 06/11/23 Range/Units 06:27 WBC (3.8-10.6) k/uL RBC (4.30-5.90) m/uL Hgb (13.0-17.5) gm/dL Hct (39.0-53.0) % RDW (11.5-15.5) % Neutrophils # (1.3-7.7) k/uL Sodium (137-145) mmol/L Chloride (98-107) mmol/L Carbon Dioxide (22-30) mmol/L BUN (9-20) mg/dL Creatinine (0.66-1.25) mg/dL Glucose (74-99) mg/dL POC Glucose (mg/dL) 149 H (70-110) mg/dL Total Protein (6.3-8.2) g/dL Albumin (3.5-5.0) g/dL Microbiology - Last 24 Hours (Table) 06/06/23 18:35 Gram Stain - Final Peritoneal Fluid Body Fluid Culture - Final 06/05/23 10:56 Blood Culture - Final Blood Assessment and Plan Assessment: 1. End-stage renal disease, switching to hemodialysis from PD as patient is not able to continue with peritoneal dialysis at home. 2. Hyponatremia, hypovolemic 3. PD associated peritonitis, fluid culture grew coag-negative staph. PD cath eter to be discontinued. 4. Chronic systolic CHF with EF 35-40% with severe pulmonary hypertension 5. CK D mineral bone disorder 6. Chronic hypotension maintained on midodrine. Patient was started on Florinef however he has significant edema therefore this will be held Plan: Repeat hemodialysis in a.m. DC Florinef in a.m. Continue with midodrine Continue to try and wean down levo fed PD catheter to be discontinued
--- NOTE | 2023-06-11 11:55 | P.PN ---
Subjective Progress Note Date: 06/11/23 Principal diagnosis: Reason for follow-up is peritoneal dialysis associated peritonitis Patient is a 77-year-old male with a past medical history significant for atrial fibrillation diabetes mellitus hypertension hyperlipidemia end-stage renal disease currently on peritoneal dialysis presenting to the hospital for evaluation of abdominal pain, patient has been diagnosed with a PD catheter assisted peritonitis. Patient did have a right IJ dialysis catheter placed on 06/09/2020 On today's evaluation that is 06/11/2023, the patient remains to be afebrile, the patient has been moved out of the ICU because of low blood pressure did require low-dose pressor support, the patient is breathing comfortably on 2 L nasal cannula oxygen and denies any shortness of breath, the patient denies chest pain or cough , patient denies abdominal pain, no nausea/vomiting and did have resolution of diarrhea Patient did have a white count is slightly up to 15K, creatinine is 6.37 peritoneal fluid with a white count of 1775 cultures are growing coagulase negative staph Objective - Vital Signs Vital signs: Vital Signs Temp 98.0 F 06/11/23 08:00 Pulse 70 06/11/23 11:00 Resp 17 06/11/23 11:00 BP 105/42 06/11/23 11:00 Pulse Ox 95 06/11/23 11:00 FiO2 Intake & Output 06/10/23 06/11/23 06/11/23 18:59 06:59 18:59 Intake Total 318 266.630 733.152 Output Total 0 0 Balance 318 266.630 733.152 Weight 115.7 kg Intake: IV 100 .9 50 Intake, IV Titration 266.630 313.152 Amount Norepinephrine 4 mg In 266.630 313.152 Sodium Chloride 0.9% 250 ml @ 0.03 MCG/KG/MIN 12. 63 mls/hr IV .Q20H7M [facility] Rx#:[id number] Oral 218 420 Output: Urine 0 0 Other: Voiding Method Bedside Commode CAPD Bedside Commode Urinal Urinal Diaper Diaper CAPD - Exam GENERAL DESCRIPTION: An elderly male lying in bed in no distress RESPIRATORY SYSTEM: Unlabored breathing , clear to auscultation anteriorly HEART: S1 S2 regular rate and rhythm , ABDOMEN: Soft , mild distention and tenderness EXTREMITIES: No edema feet - Labs CBC & Chem 7: 06/11/23 03:29 06/11/23 03:29 Labs: Abnormal Lab Results - Last 24 Hours (Table) 06/10/23 06/10/23 06/10/23 Range/Units 11:42 11:59 14:22 WBC 15.1 H (3.8-10.6) k/uL RBC 2.79 L (4.30-5.90) m/uL Hgb 9.0 L D (13.0-17.5) gm/dL Hct 27.6 L (39.0-53.0) % RDW 18.2 H (11.5-15.5) % Neutrophils # (1.3-7.7) k/uL Sodium 126 L (137-145) mmol/L Chloride 93 L (98-107) mmol/L Carbon Dioxide 16 L (22-30) mmol/L BUN 65 H (9-20) mg/dL Creatinine 6.17 H (0.66-1.25) mg/dL Glucose 141 H (74-99) mg/dL POC Glucose (mg/dL) 182 H (70-110) mg/dL Total Protein 5.4 L (6.3-8.2) g/dL Albumin 2.4 L (3.5-5.0) g/dL 06/10/23 06/10/23 06/10/23 Range/Units 16:42 19:22 19:45 WBC 14.4 H (3.8-10.6) k/uL RBC 2.81 L (4.30-5.90) m/uL Hgb 9.2 L (13.0-17.5) gm/dL Hct 28.0 L (39.0-53.0) % RDW 18.1 H (11.5-15.5) % Neutrophils # (1.3-7.7) k/uL Sodium (137-145) mmol/L Chloride (98-107) mmol/L Carbon Dioxide (22-30) mmol/L BUN (9-20) mg/dL Creatinine (0.66-1.25) mg/dL Glucose (74-99) mg/dL POC Glucose (mg/dL) 180 H 144 H (70-110) mg/dL Total Protein (6.3-8.2) g/dL Albumin (3.5-5.0) g/dL 06/11/23 06/11/23 06/11/23 Range/Units 00:05 03:29 03:29 WBC 15.0 H (3.8-10.6) k/uL RBC 3.07 L (4.30-5.90) m/uL Hgb 9.8 L (13.0-17.5) gm/dL Hct 30.4 L (39.0-53.0) % RDW 18.0 H (11.5-15.5) % Neutrophils # 13.1 H (1.3-7.7) k/uL Sodium 126 L (137-145) mmol/L Chloride 95 L (98-107) mmol/L Carbon Dioxide 15 L (22-30) mmol/L BUN 67 H (9-20) mg/dL Creatinine 6.37 H (0.66-1.25) mg/dL Glucose 141 H (74-99) mg/dL POC Glucose (mg/dL) 162 H (70-110) mg/dL Total Protein (6.3-8.2) g/dL Albumin (3.5-5.0) g/dL 06/11/23 Range/Units 06:27 WBC (3.8-10.6) k/uL RBC (4.30-5.90) m/uL Hgb (13.0-17.5) gm/dL Hct (39.0-53.0) % RDW (11.5-15.5) % Neutrophils # (1.3-7.7) k/uL Sodium (137-145) mmol/L Chloride (98-107) mmol/L Carbon Dioxide (22-30) mmol/L BUN (9-20) mg/dL Creatinine (0.66-1.25) mg/dL Glucose (74-99) mg/dL POC Glucose (mg/dL) 149 H (70-110) mg/dL Total Protein (6.3-8.2) g/dL Albumin (3.5-5.0) g/dL Microbiology - Last 24 Hours (Table) 06/06/23 18:35 Gram Stain - Final Peritoneal Fluid Body Fluid Culture - Final 06/05/23 10:56 Blood Culture - Final Blood Assessment and Plan (1) Dialysis-associated peritonitis Current Visit: Yes Status: Acute Code(s): T85.71XA - INFECT/INFLM REACTION DUE TO PERITON DIALYSIS CATHETER, INIT SNOMED Code(s): 126833404 (2) Leukocytosis Current Visit: No Status: Acute Code(s): D72.829 - ELEVATED WHITE BLOOD CELL COUNT, UNSPECIFIED SNOMED Code(s): 465301109 Plan: 1patient presented to hospital with abdominal pain in this patient with a history of end-stage renal disease on peritoneal dialysis concerning for PD catheter associated peritonitis patient did have elevated white count no fever CT abdominal pelvis did show ascites but no other abnormality patient did have a peritoneal dialysis fluid culture positive for staph epi on 05/10/2023, could be likely the same pathogen 2-peritoneal peritoneal Fluid cell count cell count of 1775 culture are currently growing coagulase negative staph 3patient has been transitioned to hemodialysis with the placement of right IJ dialysis catheter patient to continue the vancomycin pharmacy to dose and will monitor his clinical course closely Dictation was produced using [employer] dictation software. please excuse any grammatical, word or spelling errors. Time with Patient: Less than 30
--- NOTE | 2023-06-11 12:35 | P.CNPUL ---
History of Present Illness Consult date: 06/11/23 Requesting physician: Tyrell E Sheet Reason for consult: other (Acute peritonitis, sepsis, septic shock) Chief complaint: Abdominal pain History of present illness: This is a 77-year-old white male with history of multiple medical problems including end-stage renal disease, on peritoneal dialysis, cardiomyopathy and LV dysfunction history of dual-chamber pacemaker, history of diabetes, benign essential hypertension, dyslipidemia, chronic atrial fibrillation, and obstructive sleep apnea syndrome. Patient was admitted back on 06/04/2023, presented mostly at the time with abdominal pain, and weakness. he was discovered to have peritonitis related to his peritoneal dialysis. Patient had positive peritoneal fluid for staphylococcal epidermidis, and he was seen by infectious disease on consultation, patient has been receiving vancomycin. Since admission the seen by many consultants including nephrology, internal medicine, cardiology, infectious disease, and vascular surgery for placement of a hemodialysis catheter. Yesterday the patient developed hypotension not responding to fluid boluses, and he was transferred to the ICU and he had to be placed on norepinephrine. He is presently on norepinephrine at 0.13 mcg/kg/m still receiving vancomycin. Patient is on 3 L nasal cannula and at night the patient is on CPAP. His peritoneal dialysis catheter remains in place and we have requested surgery to evaluate and remove. Patient is supposed to have his hemodialysis today. In the meantime he continues to have treatment for his acute peritonitis. Blood cultures have been negative so far. Peritoneal fluid from the abdomen was positive for Staphylococcus epidermidis Review of Systems CONSTITUTIONAL: Mostly generalized weakness and fatigue HEENT: No recent visual problems or hearing problems. Denied any sore throat. CARDIOVASCULAR: No orthopnea, PND, no palpitations, no syncope. PULMONARY: No shortness of breath, no cough, no hemoptysis. GASTROINTESTINAL: Minimal and vague abdominal discomfort otherwise negative NEUROLOGICAL: No headaches, no weakness, no numbness. HEMATOLOGICAL: Denies any bleeding or petechiae. GENITOURINARY: Denies any burning micturition, frequency, or urgency. MUSCULOSKELETAL/RHEUMATOLOGICAL: Denies any joint pain, swelling, or any muscle pain. ENDOCRINE: Denies any polyuria or polydipsia. Past Medical History Past Medical History: Atrial Fibrillation, COPD, Diabetes Mellitus, Dialysis, GERD/Reflux, Hyperlipidemia, Hypertension, Osteoarthritis (OA), Renal Disease, Sleep Apnea/CPAP/BIPAP, Thyroid Disorder Additional Past Medical History / Comment(s): O2 3L per nasal cannula. Dialysis MOWEFR. Cardiomyopathy. Gout. Constipation. 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 hemodialysis cath, peritoneal dialysis Past Anesthesia/Blood Transfusion Reactions: No Reported Reaction Type of Cardiac Device: Permanent Pacemaker Device Placement Date:: 10/17/2012 Past Psychological History: No Psychological Hx Reported Smoking Status: Former smoker Past Alcohol Use History: None Reported Past Drug Use History: None Reported - Past Family History Father History Unknown: Yes Additional Family Medical History / Comment(s): "hardening of the arteries" Mother History Unknown: Yes Additional Family Medical History / Comment(s): "water in the lungs" at 95. Medications and Allergies Home Medications Medication Instructions Recorded Confirmed Type allopurinoL [Zyloprim] 300 mg PO DAILY 11/21/14 06/05/23 History Acetaminophen Tab [Tylenol] 650 mg PO BID 07/12/16 06/05/23 History Multivitamins, Thera [Multivitamin 1 tab PO DAILY 10/03/17 06/05/23 History (formulary)] Lovastatin [Altoprev] 40 mg PO HS 05/24/21 06/05/23 History Aspirin [Adult Low Dose Aspirin EC] 81 mg PO DAILY 03/29/22 06/05/23 History Lactulose 2 tsp PO DAILY 03/29/22 06/05/23 History Omeprazole 40 mg PO DAILY 03/29/22 06/05/23 History Torsemide [Demadex] 80 mg PO DAILY 03/29/22 06/05/23 History Midodrine HCl [ProAmatine] 10 mg PO QID 02/14/23 06/05/23 History glipiZIDE [Glucotrol] 10 mg PO AC-BID 02/14/23 06/05/23 History Sucralfate [Carafate] 1 gm PO BID 02/15/23 06/05/23 History Amiodarone [Cordarone] 400 mg PO DAILY 05/10/23 06/05/23 History Docusate [Colace] 100 mg PO BID 05/10/23 06/05/23 History Fludrocortisone [Florinef] 0.1 mg PO DAILY 05/10/23 06/05/23 History Potassium Chloride ER [K-Dur 20] 20 meq PO BID 05/10/23 06/05/23 History Ferrous Sulfate [Feosol] 325 mg PO DAILY 30 Days #60 tab 05/12/23 06/05/23 Rx Allergies Allergy/AdvReac Type Severity Reaction Status Date / Time lisinopril AdvReac Mild Cough Verified 06/05/23 07:46 Physical Exam Vitals: Vital Signs Temp Pulse Resp BP BP BP Pulse Ox 06/11/23 12:00 97.9 F 67 18 117/41 96 06/11/23 11:45 67 15 115/53 96 06/11/23 11:30 66 16 113/39 97 06/11/23 11:15 66 19 125/46 96 06/11/23 11:00 70 17 105/42 95 06/11/23 10:45 74 4 L 95/55 92 L 06/11/23 10:30 77 16 80/47 94 L 06/11/23 10:15 65 16 84/46 93 L 06/11/23 10:00 71 16 87/44 94 L 06/11/23 09:45 65 16 94/57 94 L 06/11/23 09:30 68 18 91/53 93 L 06/11/23 09:15 68 16 99/47 92 L 06/11/23 09:00 65 16 95/53 94 L 06/11/23 08:45 68 18 92/44 93 L 06/11/23 08:30 66 17 103/55 93 L 06/11/23 08:15 70 14 103/55 94 L 06/11/23 08:00 98.0 F 77 14 72/42 92 L 06/11/23 07:45 71 19 80/47 91 L 06/11/23 07:30 18 102/53 92 L 06/11/23 07:15 63 17 100/54 93 L 06/11/23 07:00 64 19 91/51 94 L 06/11/23 06:45 66 15 86/53 96 06/11/23 06:30 60 16 100/51 97 06/11/23 06:15 61 15 100/54 95 06/11/23 06:00 67 17 98/52 96 06/11/23 05:45 64 16 98/53 95 06/11/23 05:30 61 14 98/54 94 L 06/11/23 05:15 60 15 96/54 94 L 06/11/23 05:00 62 15 99/54 95 06/11/23 04:45 60 16 100/52 95 06/11/23 04:30 59 L 16 98/53 94 L 06/11/23 04:15 60 15 108/54 96 06/11/23 04:00 98.1 F 64 16 105/57 96 06/11/23 03:45 61 15 91/55 95 06/11/23 03:30 62 14 99/55 97 06/11/23 03:15 59 L 16 87/49 95 06/11/23 03:00 60 15 84/47 95 06/11/23 02:45 65 13 106/53 97 06/11/23 02:30 61 20 93/51 95 06/11/23 02:15 72 15 94/53 96 06/11/23 02:00 59 L 2 L 100/52 96 06/11/23 01:45 61 2 L 96/50 94 L 06/11/23 01:30 65 16 97/51 97 06/11/23 01:15 67 14 100/51 97 06/11/23 01:00 66 16 99/51 97 06/11/23 00:45 67 16 94/73 98 06/11/23 00:30 67 15 94/50 98 06/11/23 00:15 64 15 96/52 97 06/11/23 00:00 97.9 F 69 16 99/52 98 06/10/23 23:45 68 15 98/52 98 06/10/23 23:40 61 15 91/54 98 06/10/23 23:30 70 17 91/54 99 06/10/23 23:15 61 15 92/50 98 06/10/23 23:00 67 15 100/48 98 06/10/23 22:45 63 16 105/55 99 06/10/23 22:30 69 16 81/51 98 06/10/23 22:15 66 15 90/50 99 06/10/23 22:00 67 15 95/45 99 06/10/23 21:30 72 17 85/51 99 06/10/23 21:00 66 15 85/55 98 06/10/23 20:30 66 16 91/49 99 06/10/23 20:15 70 18 89/54 99 06/10/23 20:00 97.6 F 74 18 70/49 99 06/10/23 18:52 64/44 06/10/23 18:23 76/44 06/10/23 16:49 97.4 F L 18 68/44 91 L 06/10/23 14:45 72/40 06/10/23 14:24 78/47 06/10/23 14:00 18 06/10/23 13:12 65/32 Intake and Output 06/10/23 06/11/23 06/11/23 22:59 06:59 14:59 Intake Total 59.713 206.917 820.722 Output Total 0 0 0 Balance 59.713 206.917 820.722 Intake: Intake, IV Titration 59.713 206.917 400.722 Amount Norepinephrine 4 mg In 59.713 206.917 400.722 Sodium Chloride 0.9% 250 ml @ 0.03 MCG/KG/MIN 12. 63 mls/hr IV .Q20H7M [facility] Rx#:[id number] Oral 420 Output: Urine 0 0 0 Other: Voiding Method CAPD Bedside Commode Urinal Diaper CAPD Weight 115.7 kg Physical Exam: Revealed 77-year-old white male on 3 L nasal cannula, in no distress. Head: Atraumatic, normocephalic. HEENT:[Neck is supple.] [No neck masses.] [No thyromegaly.] [No JVD.] Chest: [Clear throughout, no crackles, no rhonchi, no wheezes.] Cardiac Exam: [Normal S1 and S2, no S3 gallop, no murmur.] Abdomen: Obese, tenderness noted in the right lower quadrant area at the site of the peritoneal dialysis catheter. No evidence of any purulent discharge. Extremities: [No clubbing, trace of bipedal edema, no cyanosis.] Neurological Exam: [No focal neurologic deficit.] Alert and oriented 3. Psychiatric: Normal mood affect and normal mental status examination. Skin: No rashes. Psychiatric: Normal mood affect and normal mental status examination. Results - Laboratory Findings CBC and BMP: 06/11/23 03:29 06/11/23 03:29 PT/INR, D-dimer PT 10.2 sec (10.0-12.5) 06/04/23 23:47 INR 0.9 (<1.2) 06/04/23 23:47 Abnormal lab findings: Abnormal Labs 06/04/23 06/04/23 06/04/23 21:44 21:44 21:44 WBC 19.6 H RBC 3.69 L Hgb 11.6 L Hct 35.9 L RDW 18.7 H Neutrophils # 17.4 H Sodium 126 L Chloride 88 L Carbon Dioxide 21 L BUN 48 H Creatinine 4.71 H Glucose 148 H POC Glucose (mg/dL) Phosphorus Magnesium 1.1 L Alkaline Phosphatase 137 H Troponin I 0.050 H* C-Reactive Protein Total Protein Albumin Procalcitonin Hep Bs Antibody 06/05/23 06/05/23 06/05/23 07:57 10:56 10:56 WBC RBC Hgb Hct RDW Neutrophils # Sodium Chloride Carbon Dioxide BUN Creatinine Glucose POC Glucose (mg/dL) 141 H Phosphorus Magnesium Alkaline Phosphatase Troponin I C-Reactive Protein 20.5 H Total Protein Albumin Procalcitonin 1.99 H Hep Bs Antibody 06/05/23 06/05/23 06/05/23 16:22 17:55 23:58 WBC RBC Hgb Hct RDW Neutrophils # Sodium Chloride Carbon Dioxide BUN Creatinine Glucose POC Glucose (mg/dL) 238 H 188 H 137 H Phosphorus Magnesium Alkaline Phosphatase Troponin I C-Reactive Protein Total Protein Albumin Procalcitonin Hep Bs Antibody 06/06/23 06/06/23 06/06/23 06:02 07:33 07:33 WBC 15.1 H RBC 3.25 L Hgb 10.4 L Hct 32.1 L RDW 18.1 H Neutrophils # 13.0 H Sodium 128 L Chloride 91 L Carbon Dioxide 18 L BUN 53 H Creatinine 5.00 H Glucose 152 H POC Glucose (mg/dL) 144 H Phosphorus 5.6 H Magnesium Alkaline Phosphatase Troponin I C-Reactive Protein Total Protein Albumin 3.0 L Procalcitonin Hep Bs Antibody 06/06/23 06/06/23 06/06/23 11:58 18:03 23:59 WBC RBC Hgb Hct RDW Neutrophils # Sodium Chloride Carbon Dioxide BUN Creatinine Glucose POC Glucose (mg/dL) 135 H 234 H 132 H Phosphorus Magnesium Alkaline Phosphatase Troponin I C-Reactive Protein Total Protein Albumin Procalcitonin Hep Bs Antibody 06/07/23 06/07/23 06/07/23 06:04 11:55 16:35 WBC RBC Hgb Hct RDW Neutrophils # Sodium Chloride Carbon Dioxide BUN Creatinine Glucose POC Glucose (mg/dL) 115 H 151 H 179 H Phosphorus Magnesium Alkaline Phosphatase Troponin I C-Reactive Protein Total Protein Albumin Procalcitonin Hep Bs Antibody 06/07/23 06/08/23 06/08/23 23:52 07:28 07:28 WBC 12.8 H RBC 3.24 L Hgb 10.6 L Hct 31.9 L RDW 18.4 H Neutrophils # 10.5 H Sodium 131 L Chloride 94 L Carbon Dioxide 20 L BUN 50 H Creatinine 4.76 H Glucose POC Glucose (mg/dL) 138 H Phosphorus Magnesium 1.4 L Alkaline Phosphatase Troponin I C-Reactive Protein Total Protein Albumin Procalcitonin Hep Bs Antibody 06/08/23 06/08/23 06/09/23 16:40 16:48 00:34 WBC RBC Hgb Hct RDW Neutrophils # Sodium Chloride Carbon Dioxide BUN Creatinine Glucose POC Glucose (mg/dL) 204 H 145 H Phosphorus Magnesium Alkaline Phosphatase Troponin I C-Reactive Protein Total Protein Albumin Procalcitonin Hep Bs Antibody A 06/09/23 06/09/23 06/09/23 06:20 11:46 16:08 WBC RBC Hgb Hct RDW Neutrophils # Sodium Chloride Carbon Dioxide BUN Creatinine Glucose POC Glucose (mg/dL) 137 H 124 H 116 H Phosphorus Magnesium Alkaline Phosphatase Troponin I C-Reactive Protein Total Protein Albumin Procalcitonin Hep Bs Antibody 06/09/23 06/10/23 06/10/23 23:59 06:07 11:42 WBC RBC Hgb Hct RDW Neutrophils # Sodium 126 L Chloride 93 L Carbon Dioxide 16 L BUN 65 H Creatinine 6.17 H Glucose 141 H POC Glucose (mg/dL) 143 H 131 H Phosphorus Magnesium Alkaline Phosphatase Troponin I C-Reactive Protein Total Protein 5.4 L Albumin 2.4 L Procalcitonin Hep Bs Antibody 06/10/23 06/10/23 06/10/23 11:59 14:22 16:42 WBC 15.1 H RBC 2.79 L Hgb 9.0 L D Hct 27.6 L RDW 18.2 H Neutrophils # Sodium Chloride Carbon Dioxide BUN Creatinine Glucose POC Glucose (mg/dL) 182 H 180 H Phosphorus Magnesium Alkaline Phosphatase Troponin I C-Reactive Protein Total Protein Albumin Procalcitonin Hep Bs Antibody 06/10/23 06/10/23 06/11/23 19:22 19:45 00:05 WBC 14.4 H RBC 2.81 L Hgb 9.2 L Hct 28.0 L RDW 18.1 H Neutrophils # Sodium Chloride Carbon Dioxide BUN Creatinine Glucose POC Glucose (mg/dL) 144 H 162 H Phosphorus Magnesium Alkaline Phosphatase Troponin I C-Reactive Protein Total Protein Albumin Procalcitonin Hep Bs Antibody 06/11/23 06/11/23 06/11/23 03:29 03:29 06:27 WBC 15.0 H RBC 3.07 L Hgb 9.8 L Hct 30.4 L RDW 18.0 H Neutrophils # 13.1 H Sodium 126 L Chloride 95 L Carbon Dioxide 15 L BUN 67 H Creatinine 6.37 H Glucose 141 H POC Glucose (mg/dL) 149 H Phosphorus Magnesium Alkaline Phosphatase Troponin I C-Reactive Protein Total Protein Albumin Procalcitonin Hep Bs Antibody - Diagnostic Findings Chest x-ray: image reviewed (Right-sided dialysis catheter from the right IJ seems to be in the proper position and the patient has left chest wall AICD device also in proper position.) Assessment and Plan Assessment: Impression: Acute peritonitis, sepsis, and I strongly suspect septic shock since the patient is requiring norepinephrine. End-stage renal disease, patient has been transitioned to hemodialysis from peritoneal dialysis and his first dialysis will be done today. Chronic systolic congestive heart failure with ejection fraction of 35% Hypotension secondary to sepsis and septic shock requiring norepinephrine he is also on midodrine Leukocytosis secondary to above Cardiomyopathy and LV dysfunction Chronic persistent atrial fibrillation History of end-stage renal disease Severe pulmonary hypertension Type 2 diabetes with diabetic nephropathy History of sick sinus syndrome requiring permanent pacemaker implantation Recommendation: Continue present supportive care measures Continue antibiotics as per infectious disease on the case Continue norepinephrine and titrate accordingly Continue hemodialysis Continue GI and DVT prophylaxis Continue amiodarone orally Continue Florinef and midodrine Continue to monitor in the ICU We continue to follow Time with Patient: Greater than 30
[2023-06-11 13:51] LABS: Glucose,Whole Blood 213 mg/dL (70-110)
--- NOTE | 2023-06-11 14:32 | P.PN ---
Subjective Progress Note Date: 06/11/23 This is a pleasant 77 years old male with past medical history of end-stage renal disease undergoing peritoneal dialysis, history of cardiomyopathy and heart block status post dual chamber pacemaker , diabetes mellitus, GERD, low blood pressure, hyperlipidemia, constipation history of atrial fibrillation, sleep apnea patient presents because of abdominal pain on the right side. He says that his pain about 10/10 and his been going on for the last 2 weeks but gets more worse recently over 1-2 days. He reports some loose stool and diarrhea, he had 1 loose bowel movement yesterday. He is not able to eat but no vomiting Currently denies chest pain or dyspnea. No urinary complaints. No headache. No weakness numbness. He is nonsmoker no alcohol or no illicit drugs. Blood pressure currently the low side 86/54. Sodium 126, creatinine 4.7, glucose 148, magnesium 1.1, liver enzymes not elevated. ProBNP is 10,000. Lipase 198. Chest x-ray: No acute process except for trace bilateral pleural effusion CT of the abdomen and pelvis: Abdominal and pelvic ascites with peritoneal dialysis catheter in place. Small hiatal hernia, diverticulosis without acute diverticulitis, no small bowel obstruction, no free intraperitoneal air 05/06/2023 Patient's abdominal pain is better, it looks relaxed. He tolerates diet well 25-100% Peritoneal fluid cultures pending I discussed the case with ID team, undergone a treatment him with intraperitoneal vancomycin as he has previous culture from staph hominis recently. 06/07/2023 Patient is more up in bed, more awake and stronger although not completely back to baseline Although he tolerated some his diet however he still saw recurrent because of his infection in the intraperitoneal cavity. Culture is growing A's-negative staph. Antibiotics was adjusted to IV vancomycin only Plan to switch his peritoneal dialysis to hemodialysis by placing permacath tomorrow 06/08/2023 Patient had little more abdominal pain last night, he uses only Tylenol and he thinks that caused too much for him before going to the, Tylenol No. 3. Patient tolerates diet to certain level. His leukocytosis is improving He remains on IV vancomycin and culture is growing coagulase-negative staph. Plan to change his peritoneal dialysis catheter and to hemodialysis catheter tomorrow. C. diff tests is requested for diarrhea although the suspicion is low 06/09/2023 Patient abdominal pain is improving Diarrhea stopped after adding Questran Patient pending hemodialysis catheter placement to switch his peritoneal dialysis until HD and remove the PD catheter 06/10/2023 Patient improving slowly and gradually His abdominal pain is much better/10 and will control with pain medication His diarrhea improved after adding Questran however he still have some loose stool today. Plan to obtain hemodialysis catheter today shows large peritoneal dialysis and to hemodialysis and discontinue with the peritoneal catheter. Peritoneal fluid culture is growing staph epidermidis and patient currently covered with IV vancomycin 06/11. Patient seen and examined. WBC 15, hemoglobin 9.8, platelet count 3:30, sodium 126, potassium 4.2, BUN 67, creatinine 6.37. Currently undergoing hemodialysis. Currently on Levophed REVIEW OF SYSTEMS: CONSTITUTIONAL: No fever, no malaise,. CARDIOVASCULAR: No chest pain, no palpitations, no syncope. PULMONARY: No shortness of breath, no cough, GASTROINTESTINAL: No diarrhea, no nausea, no vomiting, no abdominal pain. NEUROLOGICAL: No headaches, no weakness, PHYSICAL EXAMINATION: GENERAL: The patient is alert and oriented x3, not in any acute distress. Chronically ill-looking HEENT: Pupils are round and equally reacting to light. EOMI. No scleral icterus. No conjunctival pallor. Normocephalic, atraumatic. No pharyngeal erythema. No thyromegaly. CARDIOVASCULAR: S1 and S2 present. No murmurs, rubs, or gallops. PULMONARY: Chest is clear to auscultation, no wheezing or crackles. ABDOMEN: Soft, nontender, nondistended, normoactive bowel sounds. No palpable organomegaly. MUSCULOSKELETAL: No joint swelling or deformity. EXTREMITIES: No cyanosis, clubbing, 1+ pitting edema NEUROLOGICAL: Gross neurological examination did not reveal any focal deficits. SKIN: No rashes. Assessment and plan Right lower quadrant abdominal tenderness suspicious for peritonitis versus other, and in view of his ascites and dialysis catheter Possible sepsis with leukocytosis and tachypnea as he meets SIRS criteria Hypotension End-stage renal disease on hemodialysis Hypernatremia History of heart block status post dual chamber placement Cardiomyopathy with ejection fraction 35-40% Plan: Monitor vital signs Monitor CBC Monitor CMP Continue telemetry monitoring Encourage use of incentive spirometer continue Levophed Continue midodrine Continue vancomycin pharmacy dose Nephrology following, permacath placed, hemodialysis per nephrology ID following Critical care following Labs and medication were reviewed.. Continue same treatment. Continue with symptomatic treatment. Resume home medication. Monitor labs and vitals. DVT and GI prophylaxis. Further recommendations as per clinical course of the patient Dictation was produced using [employer] dictation software. please excuse any grammatical, word or spelling errors. Objective - Vital Signs Vital signs: Vital Signs Temp 98.0 F 06/11/23 08:00 Pulse 65 06/11/23 09:00 Resp 16 06/11/23 09:00 BP 95/53 06/11/23 09:00 Pulse Ox 94 L 06/11/23 09:00 FiO2 Intake & Output 06/10/23 06/11/23 06/11/23 18:59 06:59 18:59 Intake Total 318 266.630 244.107 Output Total 0 Balance 318 266.630 244.107 Weight 115.7 kg Intake: IV 100 .9 50 Intake, IV Titration 266.630 244.107 Amount Norepinephrine 4 mg In 266.630 244.107 Sodium Chloride 0.9% 250 ml @ 0.03 MCG/KG/MIN 12. 63 mls/hr IV .Q20H7M [facility] Rx#:[id number] Oral 218 Output: Urine 0 Other: Voiding Method Bedside Commode CAPD Urinal Diaper - Labs CBC & Chem 7: 06/11/23 03:29 06/11/23 03:29 Labs: Abnormal Lab Results - Last 24 Hours (Table) 06/10/23 06/10/23 06/10/23 Range/Units 11:42 11:59 14:22 WBC 15.1 H (3.8-10.6) k/uL RBC 2.79 L (4.30-5.90) m/uL Hgb 9.0 L D (13.0-17.5) gm/dL Hct 27.6 L (39.0-53.0) % RDW 18.2 H (11.5-15.5) % Neutrophils # (1.3-7.7) k/uL Sodium 126 L (137-145) mmol/L Chloride 93 L (98-107) mmol/L Carbon Dioxide 16 L (22-30) mmol/L BUN 65 H (9-20) mg/dL Creatinine 6.17 H (0.66-1.25) mg/dL Glucose 141 H (74-99) mg/dL POC Glucose (mg/dL) 182 H (70-110) mg/dL Total Protein 5.4 L (6.3-8.2) g/dL Albumin 2.4 L (3.5-5.0) g/dL 06/10/23 06/10/23 06/10/23 Range/Units 16:42 19:22 19:45 WBC 14.4 H (3.8-10.6) k/uL RBC 2.81 L (4.30-5.90) m/uL Hgb 9.2 L (13.0-17.5) gm/dL Hct 28.0 L (39.0-53.0) % RDW 18.1 H (11.5-15.5) % Neutrophils # (1.3-7.7) k/uL Sodium (137-145) mmol/L Chloride (98-107) mmol/L Carbon Dioxide (22-30) mmol/L BUN (9-20) mg/dL Creatinine (0.66-1.25) mg/dL Glucose (74-99) mg/dL POC Glucose (mg/dL) 180 H 144 H (70-110) mg/dL Total Protein (6.3-8.2) g/dL Albumin (3.5-5.0) g/dL 06/11/23 06/11/23 06/11/23 Range/Units 00:05 03:29 03:29 WBC 15.0 H (3.8-10.6) k/uL RBC 3.07 L (4.30-5.90) m/uL Hgb 9.8 L (13.0-17.5) gm/dL Hct 30.4 L (39.0-53.0) % RDW 18.0 H (11.5-15.5) % Neutrophils # 13.1 H (1.3-7.7) k/uL Sodium 126 L (137-145) mmol/L Chloride 95 L (98-107) mmol/L Carbon Dioxide 15 L (22-30) mmol/L BUN 67 H (9-20) mg/dL Creatinine 6.37 H (0.66-1.25) mg/dL Glucose 141 H (74-99) mg/dL POC Glucose (mg/dL) 162 H (70-110) mg/dL Total Protein (6.3-8.2) g/dL Albumin (3.5-5.0) g/dL 06/11/23 Range/Units 06:27 WBC (3.8-10.6) k/uL RBC (4.30-5.90) m/uL Hgb (13.0-17.5) gm/dL Hct (39.0-53.0) % RDW (11.5-15.5) % Neutrophils # (1.3-7.7) k/uL Sodium (137-145) mmol/L Chloride (98-107) mmol/L Carbon Dioxide (22-30) mmol/L BUN (9-20) mg/dL Creatinine (0.66-1.25) mg/dL Glucose (74-99) mg/dL POC Glucose (mg/dL) 149 H (70-110) mg/dL Total Protein (6.3-8.2) g/dL Albumin (3.5-5.0) g/dL Microbiology - Last 24 Hours (Table) 06/06/23 18:35 Gram Stain - Final Peritoneal Fluid Body Fluid Culture - Final 06/05/23 10:56 Blood Culture - Final Blood
--- NOTE | 2023-06-11 15:22 | P.PN ---
Subjective Progress Note Date: 06/11/23 CHIEF COMPLAINT: Abdominal pain HISTORY OF PRESENT ILLNESS: Patient currently in the ICU after becoming h ypotensive and needed placed on Levophed. He is receiving hemodialysis this AM. Patient scheduled for possible peritoneal dialysis catheter removal. Afebrile. WBC is 15 Hgb 9.8 platelets 330 sodium 126 creatinine 6.37 PHYSICAL EXAM: VITAL SIGNS: Reviewed. GENERAL: Well-developed in no acute distress. ABDOMEN: Soft. Nondistended. Tenderness right side abdomen NEUROLOGIC: Alert and oriented. Cranial nerves II through XII grossly intact. ASSESSMENT: 1. PD catheter associated peritonitis 2. End-stage renal disease on peritoneal dialysis 3. History of cardiomyopathy EF of 35-40% and severe pulmonary hypertension 4. History of atrial fibrillation not on anticoagulation 5. History of permanent pacemaker 6. Diabetes mellitus PLAN: -Patient is scheduled for removal of peritoneal dialysis catheter today with Dr. Morley -Antibiotics per infectious disease and nephrology Physician Bolt Cutter note has been reviewed by physician. Signing provider agrees with the documented findings, assessment, and plan of care. Objective - Vital Signs Vital signs: Vital Signs Temp 98.0 F 06/11/23 08:00 Pulse 70 06/11/23 11:00 Resp 17 06/11/23 11:00 BP 105/42 06/11/23 11:00 Pulse Ox 95 06/11/23 11:00 FiO2 Intake & Output 06/10/23 06/11/23 06/11/23 18:59 06:59 18:59 Intake Total 318 266.630 733.152 Output Total 0 0 Balance 318 266.630 733.152 Weight 115.7 kg Intake: IV 100 .9 50 Intake, IV Titration 266.630 313.152 Amount Norepinephrine 4 mg In 266.630 313.152 Sodium Chloride 0.9% 250 ml @ 0.03 MCG/KG/MIN 12. 63 mls/hr IV .Q20H7M [facility] Rx#:[id number] Oral 218 420 Output: Urine 0 0 Other: Voiding Method Bedside Commode CAPD Bedside Commode Urinal Urinal Diaper Diaper CAPD - Labs CBC & Chem 7: 06/11/23 03:29 06/11/23 03:29 Labs: Abnormal Lab Results - Last 24 Hours (Table) 06/10/23 06/10/23 06/10/23 Range/Units 11:42 11:59 14:22 WBC 15.1 H (3.8-10.6) k/uL RBC 2.79 L (4.30-5.90) m/uL Hgb 9.0 L D (13.0-17.5) gm/dL Hct 27.6 L (39.0-53.0) % RDW 18.2 H (11.5-15.5) % Neutrophils # (1.3-7.7) k/uL Sodium 126 L (137-145) mmol/L Chloride 93 L (98-107) mmol/L Carbon Dioxide 16 L (22-30) mmol/L BUN 65 H (9-20) mg/dL Creatinine 6.17 H (0.66-1.25) mg/dL Glucose 141 H (74-99) mg/dL POC Glucose (mg/dL) 182 H (70-110) mg/dL Total Protein 5.4 L (6.3-8.2) g/dL Albumin 2.4 L (3.5-5.0) g/dL 06/10/23 06/10/23 06/10/23 Range/Units 16:42 19:22 19:45 WBC 14.4 H (3.8-10.6) k/uL RBC 2.81 L (4.30-5.90) m/uL Hgb 9.2 L (13.0-17.5) gm/dL Hct 28.0 L (39.0-53.0) % RDW 18.1 H (11.5-15.5) % Neutrophils # (1.3-7.7) k/uL Sodium (137-145) mmol/L Chloride (98-107) mmol/L Carbon Dioxide (22-30) mmol/L BUN (9-20) mg/dL Creatinine (0.66-1.25) mg/dL Glucose (74-99) mg/dL POC Glucose (mg/dL) 180 H 144 H (70-110) mg/dL Total Protein (6.3-8.2) g/dL Albumin (3.5-5.0) g/dL 06/11/23 06/11/23 06/11/23 Range/Units 00:05 03:29 03:29 WBC 15.0 H (3.8-10.6) k/uL RBC 3.07 L (4.30-5.90) m/uL Hgb 9.8 L (13.0-17.5) gm/dL Hct 30.4 L (39.0-53.0) % RDW 18.0 H (11.5-15.5) % Neutrophils # 13.1 H (1.3-7.7) k/uL Sodium 126 L (137-145) mmol/L Chloride 95 L (98-107) mmol/L Carbon Dioxide 15 L (22-30) mmol/L BUN 67 H (9-20) mg/dL Creatinine 6.37 H (0.66-1.25) mg/dL Glucose 141 H (74-99) mg/dL POC Glucose (mg/dL) 162 H (70-110) mg/dL Total Protein (6.3-8.2) g/dL Albumin (3.5-5.0) g/dL 06/11/23 Range/Units 06:27 WBC (3.8-10.6) k/uL RBC (4.30-5.90) m/uL Hgb (13.0-17.5) gm/dL Hct (39.0-53.0) % RDW (11.5-15.5) % Neutrophils # (1.3-7.7) k/uL Sodium (137-145) mmol/L Chloride (98-107) mmol/L Carbon Dioxide (22-30) mmol/L BUN (9-20) mg/dL Creatinine (0.66-1.25) mg/dL Glucose (74-99) mg/dL POC Glucose (mg/dL) 149 H (70-110) mg/dL Total Protein (6.3-8.2) g/dL Albumin (3.5-5.0) g/dL Microbiology - Last 24 Hours (Table) 06/06/23 18:35 Gram Stain - Final Peritoneal Fluid Body Fluid Culture - Final 06/05/23 10:56 Blood Culture - Final Blood
[2023-06-11] MEDS ORDERED: PHENYLEPHRINE-0.9% NACL SYG 1,000 MCG/10 ML SYRINGE ONE (16:02)
[2023-06-11] MEDS ORDERED: NOREPINEPHRINE 1 MG/ML 4 ML VIAL IV ONE (16:02)
[2023-06-11] MEDS ORDERED: ETOMIDATE 2 MG/ML 10 ML VIAL ONE (16:02)
[2023-06-11] MEDS ORDERED: MIDAZOLAM 2 MG/2 ML VIAL ONE (16:02)
[2023-06-11] MEDS ORDERED: SUCCINYLCHOLINE CHLORIDE 200 MG/10 ML VIAL IV ONE (16:02)
[2023-06-11] MEDS ORDERED: fentaNYL (PF) 50 MCG/ML 2 ML AMP ONE (16:02)
[2023-06-11] MEDS ORDERED: KETAMINE HCL IN 0.9 % NACL 50 MG/5 ML SYRINGE ONE (16:02)
[2023-06-11] MEDS ORDERED: LACTATED RINGERS 1,000 ML IV ONE (16:06)
[2023-06-11] MEDS ORDERED: HYDROmorphone 1 MG/ML 1 ML SYRINGE IVP PRN (16:44)
--- NOTE | 2023-06-11 16:44 | P.OP ---
Date of Procedure: 06/11/23 Preoperative Diagnosis: Peritonitis Postoperative Diagnosis: Peritonitis Procedure(s) Performed: Removal of CAPD catheter Anesthesia: MISHA Surgeon: Darci Morley Estimated Blood Loss (ml): 5 Pathology: other (CAPD catheter culture) Condition: stable Disposition: PACU Description of Procedure: The patient's placed on the operative table supine position. He received general endotracheal tube anesthesia. His abdomen was prepped and draped in usual sterile fashion. The CAPD catheter was palpated. The subcutaneous cuff was palpated. A skin incision made over this. Then using left cautery the elbow cuff was dissected free from subcutaneous tissue. The catheter was then tracked to the fascia. And the fascia the cold cuff was dissected using electrocautery. The catheter was withdrawn. Using 0 Vicryl the opening in the fascia was then closed in a figure 8 fashion. Subcutaneous fat the subcutaneous tissue was examined. There was no bleeding seen. Surgical nina. Patient tolerated the procedure well. He was sent to recovery in stable condition.
[2023-06-11 17:09] LABS: Glucose,Whole Blood 213 mg/dL (70-110)
[2023-06-11] MEDS: SODIUM CHLORIDE 0.9% 250 ML IV SCH ×3 (21:32→22:45)
[2023-06-12] MEDS: INSULIN ASPART (NovoLOG) 100 UNIT/ML VIAL SQ SCH ×5 (00:32→19:52)
[2023-06-12 00:34] LABS: Glucose,Whole Blood 137 mg/dL (70-110)
[2023-06-12] MEDS: NOREPINEPHRINE 4 MG in SODIUM CHLORIDE 0.9% 250 ML IV SCH ×3 (04:09→22:29)
[2023-06-12 04:24] LABS: Anisocytosis Slight; HCT 29.6 % (39.0-53.0); HGB 9.6 gm/dL (13.0-17.5); Hypochromasia Slight; MCH 31.5 pg (25.0-35.0); MCHC 32.4 g/dL (31.0-37.0); MCV 97.3 fL (80.0-100.0); Macrocytosis Slight; Mean Platelet Volume 7.5; Platelet Count 326 k/uL (150-450); Poikilocytosis Slight; RBC 3.04 m/uL (4.30-5.90); RDW 18.1 % (11.5-15.5); WBC 9.6 k/uL (3.8-10.6)
[2023-06-12 04:25] LABS: ALT 12 U/L (4-49); AST 18 U/L (17-59); African American GFR (CKD) 18 (>60 ml/min/1.73 sqM); Albumin 2.4 g/dL (3.5-5.0); Alkaline Phosphatase 131 U/L (38-126); Anion Gap 11 mmol/L; Blood Urea Nitrogen 34 mg/dL (9-20); Calcium 8.1 mg/dL (8.4-10.2); Carbon Dioxide 23 mmol/L (22-30); Chloride 93 mmol/L (98-107); Glucose 138 mg/dL (74-99); Non-African American GFR(CKD) 16 (>60 ml/min/1.73 sqM); Potassium 3.6 mmol/L (3.5-5.1); Sodium 127 mmol/L (137-145); Total Bilirubin 0.3 mg/dL (0.2-1.3); Total Protein 5.2 g/dL (6.3-8.2)
[2023-06-12 04:31] LABS: Vancomycin,Random 19.3 ug/mL
[2023-06-12 06:14] LABS: Glucose,Whole Blood 140 mg/dL (70-110)
--- NOTE | 2023-06-12 07:04 | P.PN ---
Subjective Progress Note Date: 06/12/23 Principal diagnosis: Permanent pacemaker The patient is a 77-year-old gentleman with a past medical history significant for permanent pacemaker and cardiomyopathy and persistent in nature. Patient currently not on anticoagulation as well as multiple comorbid conditions including renal failure and dialysis was admitted to the hospital with abdominal discomfort felt to be related to peritonitis. 06/11/2023 The patient was seen and evaluated this morning. He seems to be stable beside he is on a very small dose of norepinephrine we are in process of weaning him from. His knee pressure is about 60 mmHg and systolic pressure above 90 mmHg. He is asymptomatic at this point. He is in paced atrial rhythm. We are in process of weaning the patient from norepinephrine. For some reason the patient is not on any oral anticoagulation. From the cardiac standpoint of view, we will continue the current medical regimen. Continue weaning the patient from norepinephrine. And follow-up with the patient. The examination is remarkable for regular rhythm with a systolic murmur at the right and left upper sternal border and diminished breathing sounds bilaterally and mild bilateral lower extremities edema June [id number] The patient was seen and evaluated this morning. He remains on a small dose of norepinephrine at this point. Otherwise he underwent dialysis yesterday. Blood work looks within normal limits. The examination is remarkable for regular rhythm with distant heart sounds and diminished breathing sounds bilaterally and mild bilateral lower extremities edema Assessment Heart failure, the patient seems to be euvolemic at this point Hypotension requiring small dose of norepinephrine Cardiomyopathy Persistent atrial fibrillation Permanent pacemaker End-stage renal failure Plan Try to wean the patient from norepinephrine Continue the current medical regimen Follow-up with the patient Objective - Vital Signs Vital signs: Vital Signs Temp 97.6 F 06/12/23 04:00 Pulse 64 06/12/23 06:00 Resp 15 06/12/23 06:00 BP 106/58 06/12/23 06:00 Pulse Ox 97 06/12/23 06:00 FiO2 Intake & Output 06/11/23 06/12/23 06/12/23 18:59 06:59 18:59 Intake Total 1926.691 343.450 Output Total 2004 0 Balance -78.309 343.450 Weight 116.2 kg Intake: IV 110 10 .9 10 10 Intake, IV Titration 676.691 193.450 Amount Norepinephrine 4 mg In 676.691 193.450 Sodium Chloride 0.9% 250 ml @ 0.03 MCG/KG/MIN 12. 63 mls/hr IV .Q20H7M [facility] Rx#:[id number] Oral 740 140 Hemodialysis 400 Output: Urine 0 0 Hemodialysis 2000 Estimated Blood Loss 5 Other: Voiding Method CAPD Bedside Commode Urinal Diaper - Labs CBC & Chem 7: 06/12/23 03:12 06/12/23 03:12 Labs: Abnormal Lab Results - Last 24 Hours (Table) 06/11/23 06/11/23 06/12/23 Range/Units 13:50 17:06 00:22 RBC (4.30-5.90) m/uL Hgb (13.0-17.5) gm/dL Hct (39.0-53.0) % RDW (11.5-15.5) % Sodium (137-145) mmol/L Chloride (98-107) mmol/L BUN (9-20) mg/dL Creatinine (0.66-1.25) mg/dL Glucose (74-99) mg/dL POC Glucose (mg/dL) 213 H 213 H 137 H (70-110) mg/dL Calcium (8.4-10.2) mg/dL Alkaline Phosphatase (38-126) U/L Total Protein (6.3-8.2) g/dL Albumin (3.5-5.0) g/dL 06/12/23 06/12/23 06/12/23 Range/Units 03:12 03:12 06:12 RBC 3.04 L (4.30-5.90) m/uL Hgb 9.6 L (13.0-17.5) gm/dL Hct 29.6 L (39.0-53.0) % RDW 18.1 H (11.5-15.5) % Sodium 127 L (137-145) mmol/L Chloride 93 L (98-107) mmol/L BUN 34 H (9-20) mg/dL Creatinine 3.57 H (0.66-1.25) mg/dL Glucose 138 H (74-99) mg/dL POC Glucose (mg/dL) 140 H (70-110) mg/dL Calcium 8.1 L (8.4-10.2) mg/dL Alkaline Phosphatase 131 H (38-126) U/L Total Protein 5.2 L (6.3-8.2) g/dL Albumin 2.4 L (3.5-5.0) g/dL Microbiology - Last 24 Hours (Table) 06/06/23 18:35 Gram Stain - Final Peritoneal Fluid Body Fluid Culture - Final
[2023-06-12] MEDS: CALCIUM ACETATE 667 MG TAB PO SCH ×3 (07:08→16:38)
--- NOTE | 2023-06-12 08:04 | XR ---
EXAMINATION TYPE: XR chest 1V portable DATE OF EXAM: 06/12/2023 5:57 AM CLINICAL INDICATION:Male, 77 years old with history of Assess lung status; [facility] COMPARISON: Chest radiographs from TECHNIQUE: XR chest 1V portable Frontal view of the chest. FINDINGS: Lungs/Pleura: There is no evidence of pleural effusion, focal consolidation, or pneumothorax. Pulmonary vascularity: Unremarkable. Heart/mediastinum: Cardiomediastinal silhouette is enlarged and stable. Atherosclerotic calcificatio ns are seen in the aorta. Two lead cardiac conduction device overlying the left hemithorax with lead tips projecting over the right ventricle and right atrium. Musculoskeletal: No acute osseous pathology. Other findings: None Lines/Tubes: Right internal jugular central venous catheter with distal tip at the cavoatrial junction. IMPRESSION: 1. Stable appearing lungs. 2. Cardiomegaly and mild pulmonary vascular congestion. Correlate with BNP for congestive heart fail ure. 3. Support tubes in appropriate position.
[2023-06-12] MEDS ORDERED: ZINC OXIDE PASTE (Z-GUARD) 1 APPLIC APPLIC TOPICAL PRN (08:53)
[2023-06-12] MEDS: FLUDROCORTISONE 0.1 MG TAB PO SCH (09:05)
[2023-06-12] MEDS: SUCRALFATE 1 GM TAB PO SCH ×2 (09:05→19:52)
[2023-06-12] MEDS: FERROUS SULFATE 325 MG TAB PO SCH (09:05)
[2023-06-12] MEDS: allopurinoL 300 MG TAB PO SCH (09:05)
[2023-06-12] MEDS: MIDODRINE 5 MG TAB PO SCH ×4 (09:05→19:52)
[2023-06-12] MEDS: PANTOPRAZOLE 40 MG/10 ML VIAL IVP SCH (09:05)
[2023-06-12] MEDS: HEPARIN SODIUM,PORCINE 5,000 UNIT/ML 1 ML VIAL SQ SCH ×2 (09:05→19:52)
[2023-06-12] MEDS: AMIODARONE 200 MG TAB PO SCH (09:05)
[2023-06-12] MEDS: DOCUSATE 100 MG CAP PO SCH ×2 (09:05→19:52)
[2023-06-12] MEDS: ASPIRIN 81 MG PO SCH (09:05)
[2023-06-12] MEDS: CHOLESTYRAMINE (WITH SUGAR) 4 GM PACKET PO SCH ×2 (09:08→17:34)
[2023-06-12 11:20] LABS: Glucose,Whole Blood 165 mg/dL (70-110)
--- NOTE | 2023-06-12 11:23 | P.PN ---
Subjective Patient is seen for follow-up for end-stage renal disease. Currently receiving hemodialysis. Tolerating treatment fairly well. Complaining of significant swelling in the arms.goal UF about 1.5-2 L as tolerated. PD catheter has been out. Patient needs a PICC line. He has a pacemaker on the left side and right IJ permacath on the right side. Left arm is much more swollen than the right arm therefore we will proceed with PICC line on the right arm. Objective - Vital Signs Vital signs: Vital Signs Temp 97.6 F 06/12/23 04:00 Pulse 75 06/12/23 10:30 Resp 14 06/12/23 10:30 BP 104/35 06/12/23 10:30 Pulse Ox 97 06/12/23 10:30 FiO2 Intake & Output 06/11/23 06/12/23 06/12/23 18:59 06:59 18:59 Intake Total 1926.691 405.403 433.935 Output Total 2005 0 0 Balance -78.309 405.403 433.935 Weight 116.2 kg 116.2 kg Intake: IV 110 10 .9 10 10 Intake, IV Titration 676.691 255.403 233.935 Amount Norepinephrine 4 mg In 676.691 255.403 233.935 Sodium Chloride 0.9% 250 ml @ 0.03 MCG/KG/MIN 12. 63 mls/hr IV .Q20H7M [facility] Rx#:[id number] Oral 740 140 200 Hemodialysis 400 Output: Urine 0 0 0 Hemodialysis 2000 Estimated Blood Loss 5 Other: Voiding Method CAPD Bedside Commode Bedside Commode Urinal Urinal Diaper Diaper - Exam Patient is awake, comfortable, no acute distress Examination of the heart S1 and S2 Examination lungs decreased breath sounds at the bases Abdomen is soft obese nontender Edema 2-3+ bilaterally noted in upper and lower extremities. [employer] exam grossly intact - Labs CBC & Chem 7: 06/12/23 03:12 06/12/23 03:12 Labs: Abnormal Lab Results - Last 24 Hours (Table) 06/11/23 06/11/23 06/12/23 Range/Units 13:50 17:06 00:22 RBC (4.30-5.90) m/uL Hgb (13.0-17.5) gm/dL Hct (39.0-53.0) % RDW (11.5-15.5) % Sodium (137-145) mmol/L Chloride (98-107) mmol/L BUN (9-20) mg/dL Creatinine (0.66-1.25) mg/dL Glucose (74-99) mg/dL POC Glucose (mg/dL) 213 H 213 H 137 H (70-110) mg/dL Calcium (8.4-10.2) mg/dL Alkaline Phosphatase (38-126) U/L Total Protein (6.3-8.2) g/dL Albumin (3.5-5.0) g/dL 06/12/23 06/12/23 06/12/23 Range/Units 03:12 03:12 06:12 RBC 3.04 L (4.30-5.90) m/uL Hgb 9.6 L (13.0-17.5) gm/dL Hct 29.6 L (39.0-53.0) % RDW 18.1 H (11.5-15.5) % Sodium 127 L (137-145) mmol/L Chloride 93 L (98-107) mmol/L BUN 34 H (9-20) mg/dL Creatinine 3.57 H (0.66-1.25) mg/dL Glucose 138 H (74-99) mg/dL POC Glucose (mg/dL) 140 H (70-110) mg/dL Calcium 8.1 L (8.4-10.2) mg/dL Alkaline Phosphatase 131 H (38-126) U/L Total Protein 5.2 L (6.3-8.2) g/dL Albumin 2.4 L (3.5-5.0) g/dL 06/12/23 Range/Units 11:18 RBC (4.30-5.90) m/uL Hgb (13.0-17.5) gm/dL Hct (39.0-53.0) % RDW (11.5-15.5) % Sodium (137-145) mmol/L Chloride (98-107) mmol/L BUN (9-20) mg/dL Creatinine (0.66-1.25) mg/dL Glucose (74-99) mg/dL POC Glucose (mg/dL) 165 H (70-110) mg/dL Calcium (8.4-10.2) mg/dL Alkaline Phosphatase (38-126) U/L Total Protein (6.3-8.2) g/dL Albumin (3.5-5.0) g/dL Microbiology - Last 24 Hours (Table) 06/06/23 18:35 Gram Stain - Final Peritoneal Fluid Body Fluid Culture - Final Assessment and Plan Assessment: 1. End-stage renal disease, switching to hemodialysis from PD as patient is not able to continue with peritoneal dialysis at home. He has been tolerating hemodialysis fairly okay 2. Hyponatremia, hypervolemic 3. PD associated peritonitis, fluid culture grew coag-negative staph. PD catheter discontinued. 4. Chronic systolic CHF with EF 35-40% with severe pulmonary hypertension 5. CK D mineral bone disorder 6. Chronic hypotension maintained on midodrine. Patient was started on Florinef however he has significant edema therefore this will be held Plan: Repeat hemodialysis in a.m. DC Florinef Continue with midodrine Continue to try and wean down levophed Okay to proceed with PICC line. Can use right arm as left arm is significantly edematous
--- NOTE | 2023-06-12 12:25 | P.PN ---
Subjective Progress Note Date: 06/12/23 Principal diagnosis: Reason for follow-up is peritoneal dialysis associated peritonitis Patient is a 77-year-old male with a past medical history significant for atrial fibrillation diabetes mellitus hypertension hyperlipidemia end-stage renal disease currently on peritoneal dialysis presenting to the hospital for evaluation of abdominal pain, patient has been diagnosed with a PD catheter assisted peritonitis. Patient did have a right IJ dialysis catheter placed on 06/09/2023, the peritoneal dialysis catheter was removed on 06/11/2023 On today's evaluation that is 06/12/2023, the patient continues to be afebrile, patient is requiring low-dose pressor support, the patient is breathing comfortably on 4 L nasal cannula supplemental oxygen, the patient denies s hortness of breath chest pain and no significant cough , patient denies nausea/vomiting, no abdominal pain and no diarrhea Patient did have a white count normalized to 9.6, creatinine is 3.57 peritoneal fluid with a white count of 1775 cultures are growing coagulase negative staph Objective - Vital Signs Vital signs: Vital Signs Temp 96.8 F L 06/12/23 12:00 Pulse 68 06/12/23 12:00 Resp 19 06/12/23 12:00 BP 98/49 06/12/23 12:00 Pulse Ox 93 L 06/12/23 12:00 FiO2 Intake & Output 06/11/23 06/12/23 06/12/23 18:59 06:59 18:59 Intake Total 1926.691 405.403 665.510 Output Total 2005 0 0 Balance -78.309 405.403 665.510 Weight 116.2 kg 116.2 kg Intake: IV 110 10 .9 10 10 Intake, IV Titration 676.691 255.403 265.510 Amount Norepinephrine 4 mg In 676.691 255.403 265.510 Sodium Chloride 0.9% 250 ml @ 0.03 MCG/KG/MIN 12. 63 mls/hr IV .Q20H7M [facility] Rx#:[id number] Oral 740 140 400 Hemodialysis 400 Output: Urine 0 0 0 Hemodialysis 2000 Estimated Blood Loss 5 Other: Voiding Method CAPD Bedside Commode Bedside Commode Urinal Urinal Diaper Diaper - Exam GENERAL DESCRIPTION: An elderly male lying in bed in no distress RESPIRATORY SYSTEM: Unlabored breathing , clear to auscultation anteriorly HEART: S1 S2 regular rate and rhythm , ABDOMEN: Soft , mild distention and tenderness EXTREMITIES: No edema feet - Labs CBC & Chem 7: 06/12/23 03:12 06/12/23 03:12 Labs: Abnormal Lab Results - Last 24 Hours (Table) 06/11/23 06/11/23 06/12/23 Range/Units 13:50 17:06 00:22 RBC (4.30-5.90) m/uL Hgb (13.0-17.5) gm/dL Hct (39.0-53.0) % RDW (11.5-15.5) % Sodium (137-145) mmol/L Chloride (98-107) mmol/L BUN (9-20) mg/dL Creatinine (0.66-1.25) mg/dL Glucose (74-99) mg/dL POC Glucose (mg/dL) 213 H 213 H 137 H (70-110) mg/dL Calcium (8.4-10.2) mg/dL Alkaline Phosphatase (38-126) U/L Total Protein (6.3-8.2) g/dL Albumin (3.5-5.0) g/dL 06/12/23 06/12/23 06/12/23 Range/Units 03:12 03:12 06:12 RBC 3.04 L (4.30-5.90) m/uL Hgb 9.6 L (13.0-17.5) gm/dL Hct 29.6 L (39.0-53.0) % RDW 18.1 H (11.5-15.5) % Sodium 127 L (137-145) mmol/L Chloride 93 L (98-107) mmol/L BUN 34 H (9-20) mg/dL Creatinine 3.57 H (0.66-1.25) mg/dL Glucose 138 H (74-99) mg/dL POC Glucose (mg/dL) 140 H (70-110) mg/dL Calcium 8.1 L (8.4-10.2) mg/dL Alkaline Phosphatase 131 H (38-126) U/L Total Protein 5.2 L (6.3-8.2) g/dL Albumin 2.4 L (3.5-5.0) g/dL 06/12/23 Range/Units 11:18 RBC (4.30-5.90) m/uL Hgb (13.0-17.5) gm/dL Hct (39.0-53.0) % RDW (11.5-15.5) % Sodium (137-145) mmol/L Chloride (98-107) mmol/L BUN (9-20) mg/dL Creatinine (0.66-1.25) mg/dL Glucose (74-99) mg/dL POC Glucose (mg/dL) 165 H (70-110) mg/dL Calcium (8.4-10.2) mg/dL Alkaline Phosphatase (38-126) U/L Total Protein (6.3-8.2) g/dL Albumin (3.5-5.0) g/dL Microbiology - Last 24 Hours (Table) 06/06/23 18:35 Gram Stain - Final Peritoneal Fluid Body Fluid Culture - Final Assessment and Plan (1) Dialysis-associated peritonitis Current Visit: Yes Status: Acute Code(s): T85.71XA - INFECT/INFLM REACTION DUE TO PERITON DIALYSIS CATHETER, INIT SNOMED Code(s): 133551338 (2) Leukocytosis Current Visit: No Status: Acute Code(s): D72.829 - ELEVATED WHITE BLOOD CELL COUNT, UNSPECIFIED SNOMED Code(s): 219324907 Plan: 1patient presented to hospital with abdominal pain in this patient with a history of end-stage renal disease on peritoneal dialysis concerning for PD catheter associated peritonitis patient did have elevated white count no fever CT abdominal pelvis did show ascites but no other abnormality patient did have a peritoneal dialysis fluid culture positive for staph epi on 05/10/2023, could be likely the same pathogen 2-peritoneal peritoneal Fluid cell count cell count of 1775 culture are currently growing coagulase negative staph 3patient has been transitioned to hemodialysis with the placement of right IJ dialysis catheter 4-the patient is afebrile, the patient white count has normalized, we will con tinue the vancomycin pharmacy to dose and will monitor his clinical course closely Dictation was produced using [employer] dictation software. please excuse any grammatical, word or spelling errors. Time with Patient: Less than 30
--- NOTE | 2023-06-12 12:55 | P.PN ---
Subjective Progress Note Date: 06/12/23 This is a pleasant 77 years old male with past medical history of end-stage renal disease undergoing peritoneal dialysis, history of cardiomyopathy and heart block status post dual chamber pacemaker , diabetes mellitus, GERD, low blood pressure, hyperlipidemia, constipation history of atrial fibrillation, sleep apnea patient presents because of abdominal pain on the right side. He says that his pain about 10/10 and his been going on for the last 2 weeks but gets more worse recently over 1-2 days. He reports some loose stool and diarrhea, he had 1 loose bowel movement yesterday. He is not able to eat but no vomiting Currently denies chest pain or dyspnea. No urinary complaints. No headache. No weakness numbness. He is nonsmoker no alcohol or no illicit drugs. Blood pressure currently the low side 86/54. Sodium 126, creatinine 4.7, glucose 148, magnesium 1.1, liver enzymes not elevated. ProBNP is 10,000. Lipase 198. Chest x-ray: No acute process except for trace bilateral pleural effusion CT of the abdomen and pelvis: Abdominal and pelvic ascites with peritoneal dialysis catheter in place. Small hiatal hernia, diverticulosis without acute diverticulitis, no small bowel obstruction, no free intraperitoneal air 05/06/2023 Patient's abdominal pain is better, it looks relaxed. He tolerates diet well 25-100% Peritoneal fluid cultures pending I discussed the case with ID team, undergone a treatment him with intraperitoneal vancomycin as he has previous culture from staph hominis recently. 06/07/2023 Patient is more up in bed, more awake and stronger although not completely back to baseline Although he tolerated some his diet however he still saw recurrent because of his infection in the intraperitoneal cavity. Culture is growing A's-negative staph. Antibiotics was adjusted to IV vancomycin only Plan to switch his peritoneal dialysis to hemodialysis by placing permacath tomorrow 06/08/2023 Patient had little more abdominal pain last night, he uses only Tylenol and he thinks that caused too much for him before going to the, Tylenol No. 3. Patient tolerates diet to certain level. His leukocytosis is improving He remains on IV vancomycin and culture is growing coagulase-negative staph. Plan to change his peritoneal dialysis catheter and to hemodialysis catheter tomorrow. C. diff tests is requested for diarrhea although the suspicion is low 06/09/2023 Patient abdominal pain is improving Diarrhea stopped after adding Questran Patient pending hemodialysis catheter placement to switch his peritoneal dialysis until HD and remove the PD catheter 06/10/2023 Patient improving slowly and gradually His abdominal pain is much better/10 and will control with pain medication His diarrhea improved after adding Questran however he still have some loose stool today. Plan to obtain hemodialysis catheter today shows large peritoneal dialysis and to hemodialysis and discontinue with the peritoneal catheter. Peritoneal fluid culture is growing staph epidermidis and patient currently covered with IV vancomycin 06/11. Patient seen and examined. WBC 15, hemoglobin 9.8, platelet count 3:30, sodium 126, potassium 4.2, BUN 67, creatinine 6.37. Currently undergoing hemodialysis. Currently on Levophed 06/12. Patient seen and examined. Blood work done This morning showed WBC 9.6, hemoglobin 9.6, platelet count 326 sodium 127, potassium 3.6, BUN and 34, crea tinine 3.57. Patient was getting dialysis today. Left upper extremity swollen REVIEW OF SYSTEMS: CONSTITUTIONAL: No fever, no malaise,. CARDIOVASCULAR: No chest pain, no palpitations, no syncope. PULMONARY: No shortness of breath, no cough, GASTROINTESTINAL: No diarrhea, no nausea, no vomiting, no abdominal pain. NEUROLOGICAL: No headaches, no weakness, PHYSICAL EXAMINATION: GENERAL: The patient is alert and oriented x3, not in any acute distress. Chronically ill-looking HEENT: Pupils are round and equally reacting to light. EOMI. No scleral icterus. No conjunctival pallor. Normocephalic, atraumatic. No pharyngeal erythema. No thyromegaly. CARDIOVASCULAR: S1 and S2 present. No murmurs, rubs, or gallops. PULMONARY: Diminished breath sounds at the bases bilaterally, no wheezing or crackles. ABDOMEN: Soft, nontender, nondistended, normoactive bowel sounds. No palpable organomegaly. MUSCULOSKELETAL: No joint swelling or deformity. EXTREMITIES: No cyanosis, clubbing, 1+ pitting edema lower extremities. Left upper extremity swollen NEUROLOGICAL: Gross neurological examination did not reveal any focal deficits. SKIN: No rashes. Assessment and plan Acute peritonitis, sepsis, suspect septic shock End-stage renal disease, patient has been transitioned to hemodialysis from peritoneal dialysis Chronic systolic congestive heart failure with ejection fraction of 35% Hypotension secondary to sepsis and septic shock requiring norepinephrine he is also on midodrine Leukocytosis Cardiomyopathy and LV dysfunction Chronic persistent atrial fibrillation History of end-stage renal disease Severe pulmonary hypertension Type 2 diabetes with diabetic nephropathy History of sick sinus syndrome requiring permanent pacemaker implantation Plan: Monitor vital signs Monitor CBC Monitor CMP Continue telemetry monitoring Encourage use of incentive spirometer continue Levophed, try to wean off Levophed Continue midodrine Continue vancomycin pharmacy dose Nephrology following, permacath placed, peritoneal dialysis catheter removed by surgery on 06/11. Continue hemodialysis per nephrology ID following Critical care following Labs and medication were reviewed.. Continue same treatment. Continue with symptomatic treatment. Resume home medication. Monitor labs and vitals. DVT and GI prophylaxis. Further recommendations as per clinical course of the patient Dictation was produced using [employer] dictation software. please excuse any grammatical, word or spelling errors. Objective - Vital Signs Vital signs: Vital Signs Temp 97.6 F 06/12/23 04:00 Pulse 67 06/12/23 08:00 Resp 15 06/12/23 08:00 BP 91/50 06/12/23 08:00 Pulse Ox 92 L 06/12/23 08:00 FiO2 Intake & Output 06/11/23 06/12/23 06/12/23 18:59 06:59 18:59 Intake Total 1926.691 405.403 183.135 Output Total 2004 0 0 Balance -78.309 405.403 183.135 Weight 116.2 kg Intake: IV 110 10 .9 10 10 Intake, IV Titration 676.691 255.403 183.135 Amount Norepinephrine 4 mg In 676.691 255.403 183.135 Sodium Chloride 0.9% 250 ml @ 0.03 MCG/KG/MIN 12. 63 mls/hr IV .Q20H7M [facility] Rx#:[id number] Oral 740 140 Hemodialysis 400 Output: Urine 0 0 0 Hemodialysis 2000 Estimated Blood Loss 5 Other: Voiding Method CAPD Bedside Commode Bedside Commode Urinal Urinal Diaper Diaper - Labs CBC & Chem 7: 06/12/23 03:12 06/12/23 03:12 Labs: Abnormal Lab Results - Last 24 Hours (Table) 06/11/23 06/11/23 06/12/23 Range/Units 13:50 17:06 00:22 RBC (4.30-5.90) m/uL Hgb (13.0-17.5) gm/dL Hct (39.0-53.0) % RDW (11.5-15.5) % Sodium (137-145) mmol/L Chloride (98-107) mmol/L BUN (9-20) mg/dL Creatinine (0.66-1.25) mg/dL Glucose (74-99) mg/dL POC Glucose (mg/dL) 213 H 213 H 137 H (70-110) mg/dL Calcium (8.4-10.2) mg/dL Alkaline Phosphatase (38-126) U/L Total Protein (6.3-8.2) g/dL Albumin (3.5-5.0) g/dL 06/12/23 06/12/23 06/12/23 Range/Units 03:12 03:12 06:12 RBC 3.04 L (4.30-5.90) m/uL Hgb 9.6 L (13.0-17.5) gm/dL Hct 29.6 L (39.0-53.0) % RDW 18.1 H (11.5-15.5) % Sodium 127 L (137-145) mmol/L Chloride 93 L (98-107) mmol/L BUN 34 H (9-20) mg/dL Creatinine 3.57 H (0.66-1.25) mg/dL Glucose 138 H (74-99) mg/dL POC Glucose (mg/dL) 140 H (70-110) mg/dL Calcium 8.1 L (8.4-10.2) mg/dL Alkaline Phosphatase 131 H (38-126) U/L Total Protein 5.2 L (6.3-8.2) g/dL Albumin 2.4 L (3.5-5.0) g/dL Microbiology - Last 24 Hours (Table) 06/06/23 18:35 Gram Stain - Final Peritoneal Fluid Body Fluid Culture - Final
--- NOTE | 2023-06-12 13:35 | P.PN ---
Subjective Progress Note Date: 06/12/23 CHIEF COMPLAINT: Abdominal pain HISTORY OF PRESENT ILLNESS: Patient currently in the ICU. Patient had PD catheter removed yesterday with Dr. son. Patient is reporting improvement in his abdominal pain. Denies any nausea or vomiting. Afebrile. White count has normalized from 15-9.6. He is scheduled for hemodialysis again today. PHYSICAL EXAM: VITAL SIGNS: Reviewed. GENERAL: Well-developed in no acute distress. ABDOMEN: Soft. Nondistended. nontender NEUROLOGIC: Alert and oriented. Cranial nerves II through XII grossly intact. ASSESSMENT: 1. PD catheter associated peritonitis status post removal of CAPD catheter PLAN: -Surgical service will sign off. Please call with any questions or concerns. -Antibiotics per infectious disease and nephrology Physician Bog Cutter note has been reviewed by physician. Signing provider agrees with the documented findings, assessment, and plan of care. Objective - Vital Signs Vital signs: Vital Signs Temp 97.6 F 06/12/23 04:00 Pulse 75 06/12/23 10:30 Resp 14 06/12/23 10:30 BP 104/35 06/12/23 10:30 Pulse Ox 97 06/12/23 10:30 FiO2 Intake & Output 06/11/23 06/12/23 06/12/23 18:59 06:59 18:59 Intake Total 1926.691 405.403 465.510 Output Total 2004 0 0 Balance -78.309 405.403 465.510 Weight 116.2 kg 116.2 kg Intake: IV 110 10 .9 10 10 Intake, IV Titration 676.691 255.403 265.510 Amount Norepinephrine 4 mg In 676.691 255.403 265.510 Sodium Chloride 0.9% 250 ml @ 0.03 MCG/KG/MIN 12. 63 mls/hr IV .Q20H7M [facility] Rx#:[id number] Oral 740 140 200 Hemodialysis 400 Output: Urine 0 0 0 Hemodialysis 2000 Estimated Blood Loss 5 Other: Voiding Method CAPD Bedside Commode Bedside Commode Urinal Urinal Diaper Diaper - Labs CBC & Chem 7: 06/12/23 03:12 06/12/23 03:12 Labs: Abnormal Lab Results - Last 24 Hours (Table) 06/11/23 06/11/23 06/12/23 Range/Units 13:50 17:06 00:22 RBC (4.30-5.90) m/uL Hgb (13.0-17.5) gm/dL Hct (39.0-53.0) % RDW (11.5-15.5) % Sodium (137-145) mmol/L Chloride (98-107) mmol/L BUN (9-20) mg/dL Creatinine (0.66-1.25) mg/dL Glucose (74-99) mg/dL POC Glucose (mg/dL) 213 H 213 H 137 H (70-110) mg/dL Calcium (8.4-10.2) mg/dL Alkaline Phosphatase (38-126) U/L Total Protein (6.3-8.2) g/dL Albumin (3.5-5.0) g/dL 06/12/23 06/12/23 06/12/23 Range/Units 03:12 03:12 06:12 RBC 3.04 L (4.30-5.90) m/uL Hgb 9.6 L (13.0-17.5) gm/dL Hct 29.6 L (39.0-53.0) % RDW 18.1 H (11.5-15.5) % Sodium 127 L (137-145) mmol/L Chloride 93 L (98-107) mmol/L BUN 34 H (9-20) mg/dL Creatinine 3.57 H (0.66-1.25) mg/dL Glucose 138 H (74-99) mg/dL POC Glucose (mg/dL) 140 H (70-110) mg/dL Calcium 8.1 L (8.4-10.2) mg/dL Alkaline Phosphatase 131 H (38-126) U/L Total Protein 5.2 L (6.3-8.2) g/dL Albumin 2.4 L (3.5-5.0) g/dL 06/12/23 Range/Units 11:18 RBC (4.30-5.90) m/uL Hgb (13.0-17.5) gm/dL Hct (39.0-53.0) % RDW (11.5-15.5) % Sodium (137-145) mmol/L Chloride (98-107) mmol/L BUN (9-20) mg/dL Creatinine (0.66-1.25) mg/dL Glucose (74-99) mg/dL POC Glucose (mg/dL) 165 H (70-110) mg/dL Calcium (8.4-10.2) mg/dL Alkaline Phosphatase (38-126) U/L Total Protein (6.3-8.2) g/dL Albumin (3.5-5.0) g/dL Microbiology - Last 24 Hours (Table) 06/06/23 18:35 Gram Stain - Final Peritoneal Fluid Body Fluid Culture - Final
--- NOTE | 2023-06-12 14:26 | P.PN ---
Subjective Progress Note Date: 06/12/23 Principal diagnosis: Acute peritonitis, septic shock, abdominal sepsis This is a 77-year-old white male with history of multiple medical problems including end-stage renal disease, on peritoneal dialysis, cardiomyopathy and LV dysfunction history of dual-chamber pacemaker, history of diabetes, benign essential hypertension, dyslipidemia, chronic atrial fibrillation, and obstr uctive sleep apnea syndrome. Patient was admitted back on 06/04/2023, presented mostly at the time with abdominal pain, and weakness. he was discovered to have peritonitis related to his peritoneal dialysis. Patient had positive peritoneal fluid for staphylococcal epidermidis, and he was seen by infectious disease on consultation, patient has been receiving vancomycin. Since admission the seen by many consultants including nephrology, internal medicine, cardiology, infectious disease, and vascular surgery for placement of a hemodialysis catheter. Yesterday the patient developed hypotension not responding to fluid boluses, and he was transferred to the ICU and he had to be placed on norep inephrine. He is presently on norepinephrine at 0.13 mcg/kg/m still receiving vancomycin. Patient is on 3 L nasal cannula and at night the patient is on CPAP. His peritoneal dialysis catheter remains in place and we have requested surgery to evaluate and remove. Patient is supposed to have his hemodialysis today. In the meantime he continues to have treatment for his acute peritonitis. Blood cultures have been negative so far. Peritoneal fluid from the abdomen was positive for Staphylococcus epidermidis Patient was reevaluated today on 06/12/23, remains in the ICU, remains on 5 L nasal cannula, remains on norepinephrine at 0.09 mcg/kg/m, patient remains on antibiotics for his peritonitis and obviously the patient needs a PICC line. Patient is on hemodialysis, he does have a dialysis catheter in his right IJ area, and I'm recommending a PICC line today since the patient may need to be on long-term antibiotics, WBC count today is 9.6 hemoglobin 9.6 sodium is 127 potassium 3.6 BUN 34 creatinine 3.57. Patient remains on vancomycin for his positive staph epidermidis in the peritoneal fluid. And his abdominal dialysis catheter has been removed Objective - Vital Signs Vital signs: Vital Signs Temp 96.8 F L 06/12/23 12:00 Pulse 65 06/12/23 14:00 Resp 17 06/12/23 14:00 BP 91/68 06/12/23 14:00 Pulse Ox 98 06/12/23 14:00 FiO2 Intake & Output 06/11/23 06/12/23 06/12/23 18:59 06:59 18:59 Intake Total 1926.691 405.403 665.510 Output Total 2004 0 0 Balance -78.309 405.403 665.510 Weight 116.2 kg 116.2 kg Intake: IV 110 10 .9 10 10 Intake, IV Titration 676.691 255.403 265.510 Amount Norepinephrine 4 mg In 676.691 255.403 265.510 Sodium Chloride 0.9% 250 ml @ 0.03 MCG/KG/MIN 12. 63 mls/hr IV .Q20H7M [facility] Rx#:[id number] Oral 740 140 400 Hemodialysis 400 Output: Urine 0 0 0 Hemodialysis 1999 Estimated Blood Loss 5 Other: Voiding Method CAPD Bedside Commode Bedside Commode Urinal Urinal Diaper Diaper - Exam Physical Exam: Revealed 77-year-old white male on 5 L nasal cannula, in no distress. Head: Atraumatic, normocephalic. HEENT:[Neck is supple.] [No neck masses.] [No thyromegaly.] [No JVD.] Chest: [Clear throughout, no crackles, no rhonchi, no wheezes.] Cardiac Exam: [Normal S1 and S2, no S3 gallop, no murmur.] Abdomen: Obese, tenderness noted in the right lower quadrant area at the site of the peritoneal dialysis catheter. No evidence of any purulent discharge. Extremities: [No clubbing, trace of bipedal edema, no cyanosis.], There is more swelling noted in the upper extremities compared to lower extremities. Neurological Exam: [No focal neurologic deficit.] Alert and oriented 3. Psychiatric: Normal mood affect and normal mental status examination. Skin: No rashes. Psychiatric: Normal mood affect and normal mental status examination. R - Labs CBC & Chem 7: 06/12/23 03:12 06/12/23 03:12 Labs: Abnormal Lab Results - Last 24 Hours (Table) 06/11/23 06/12/23 06/12/23 Range/Units 17:06 00:22 03:12 RBC (4.30-5.90) m/uL Hgb (13.0-17.5) gm/dL Hct (39.0-53.0) % RDW (11.5-15.5) % Sodium 127 L (137-145) mmol/L Chloride 93 L (98-107) mmol/L BUN 34 H (9-20) mg/dL Creatinine 3.57 H (0.66-1.25) mg/dL Glucose 138 H (74-99) mg/dL POC Glucose (mg/dL) 213 H 137 H (70-110) mg/dL Calcium 8.1 L (8.4-10.2) mg/dL Alkaline Phosphatase 131 H (38-126) U/L Total Protein 5.2 L (6.3-8.2) g/dL Albumin 2.4 L (3.5-5.0) g/dL 06/12/23 06/12/23 06/12/23 Range/Units 03:12 06:12 11:18 RBC 3.04 L (4.30-5.90) m/uL Hgb 9.6 L (13.0-17.5) gm/dL Hct 29.6 L (39.0-53.0) % RDW 18.1 H (11.5-15.5) % Sodium (137-145) mmol/L Chloride (98-107) mmol/L BUN (9-20) mg/dL Creatinine (0.66-1.25) mg/dL Glucose (74-99) mg/dL POC Glucose (mg/dL) 140 H 165 H (70-110) mg/dL Calcium (8.4-10.2) mg/dL Alkaline Phosphatase (38-126) U/L Total Protein (6.3-8.2) g/dL Albumin (3.5-5.0) g/dL Assessment and Plan Assessment: Impression: Acute peritonitis, sepsis, and septic shock since the patient is requiring norepinephrine. Remains on norepinephrine today at 0.09 mcg/kg/m End-stage renal disease, patient has been transitioned to hemodialysis Chronic systolic congestive heart failure with ejection fraction of 35% Hypotension secondary to sepsis and septic shock requiring norepinephrine he is also on midodrine Leukocytosis secondary to above Cardiomyopathy and LV dysfunction Chronic persistent atrial fibrillation History of end-stage renal disease Severe pulmonary hypertension Type 2 diabetes with diabetic nephropathy History of sick sinus syndrome requiring permanent pacemaker implantation Recommendation: Continue norepinephrine for his hypotension and titrate accordi ngly Continue antibiotics /vancomycin Continue hemodialysis Continue GI and DVT prophylaxis Continue amiodarone orally Continue Florinef and midodrine Continue to monitor in the ICU We continue to follow Time with Patient: Less than 30
[2023-06-12 16:33] LABS: Glucose,Whole Blood 182 mg/dL (70-110)
[2023-06-12 19:37] LABS: Glucose,Whole Blood 196 mg/dL (70-110)
[2023-06-12] MEDS ORDERED: VANCOMYCIN 1,500 MG in SODIUM CHLORIDE 0.9% 500 ML 500 ML IVPB ONE (21:00)
[2023-06-13 04:26] LABS: Anisocytosis Slight; Basophils % (A) 0 %; Eosinophils # (A) 0.2 k/uL (0-0.7); Eosinophils % (A) 3 %; HCT 27.7 % (39.0-53.0); Hypochromasia Slight; Lymphocytes # (A) 1.4 k/uL (1.0-4.8); Lymphocytes % (A) 18 %; MCH 31.8 pg (25.0-35.0); MCHC 32.4 g/dL (31.0-37.0); MCV 98.1 fL (80.0-100.0); Macrocytosis Slight; Mean Platelet Volume 7.5; Monocytes # (A) 0.4 k/uL (0-1.0); Monocytes % (A) 5 %; Neutrophils # (A) 5.8 k/uL (1.3-7.7); Neutrophils % (A) 73 %; Platelet Count 316 k/uL (150-450); Poikilocytosis Slight; RBC 2.82 m/uL (4.30-5.90); RDW 18.1 % (11.5-15.5); WBC 7.9 k/uL (3.8-10.6)
[2023-06-13 04:46] LABS: African American GFR (CKD) 30 (>60 ml/min/1.73 sqM); Anion Gap 8 mmol/L; Blood Urea Nitrogen 20 mg/dL (9-20); Calcium 8.1 mg/dL (8.4-10.2); Carbon Dioxide 25 mmol/L (22-30); Chloride 95 mmol/L (98-107); Glucose 108 mg/dL (74-99); Non-African American GFR(CKD) 26 (>60 ml/min/1.73 sqM); Potassium 3.7 mmol/L (3.5-5.1); Sodium 128 mmol/L (137-145)
[2023-06-13 06:05] LABS: Glucose,Whole Blood 116 mg/dL (70-110)
[2023-06-13] MEDS: CALCIUM ACETATE 667 MG TAB PO SCH ×3 (07:07→17:15)
[2023-06-13] MEDS: INSULIN ASPART (NovoLOG) 100 UNIT/ML VIAL SQ SCH ×4 (07:37→21:08)
--- NOTE | 2023-06-13 08:05 | XR ---
EXAMINATION TYPE: XR chest 1V portable DATE OF EXAM: 06/13/2023 Comparison: 06/12/2023 Clinical History: 77-year-old male increased O2 demands; fluid overload Findings: Left anterior chest wall pacemaker generator with right atrial and right ventricular leads. Right-harvey ed double-lumen hemodialysis catheters with tips at the lower SVC. Heart remains moderately enlarged with mild interstitial density. Small bilateral pleural effusions with some patchy bibasilar opacity. Overall unchanged. Impression: Overall similar moderate cardiomegaly and mild pulmonary vascular congestion. Trace effusions with so me adjacent atelectasis and/or consolidation also similar.
[2023-06-13] MEDS: PANTOPRAZOLE 40 MG/10 ML VIAL IVP SCH (09:30)
[2023-06-13] MEDS: AMIODARONE 200 MG TAB PO SCH (09:30)
[2023-06-13] MEDS: HEPARIN SODIUM,PORCINE 5,000 UNIT/ML 1 ML VIAL SQ SCH ×2 (09:30→21:08)
[2023-06-13] MEDS: SUCRALFATE 1 GM TAB PO SCH ×2 (09:30→21:08)
[2023-06-13] MEDS: allopurinoL 300 MG TAB PO SCH (09:31)
[2023-06-13] MEDS: FERROUS SULFATE 325 MG TAB PO SCH (09:31)
[2023-06-13] MEDS: DOCUSATE 100 MG CAP PO SCH ×2 (09:31→21:08)
[2023-06-13] MEDS: ASPIRIN 81 MG PO SCH (09:31)
[2023-06-13] MEDS: MIDODRINE 5 MG TAB PO SCH ×4 (09:31→21:08)
[2023-06-13] MEDS: CHOLESTYRAMINE (WITH SUGAR) 4 GM PACKET PO SCH ×2 (09:32→16:55)
[2023-06-13 11:23] LABS: Glucose,Whole Blood 172 mg/dL (70-110)
--- NOTE | 2023-06-13 11:28 | P.PN ---
Subjective Progress Note Date: 06/13/23 Principal diagnosis: Permanent pacemaker The patient is a 77-year-old gentleman with a past medical history significant for permanent pacemaker and cardiomyopathy and persistent in nature. Patient currently not on anticoagulation as well as multiple comorbid conditions including renal failure and dialysis was admitted to the hospital with abdominal discomfort felt to be related to peritonitis. 06/11/2023 The patient was seen and evaluated this morning. He seems to be stable beside he is on a very small dose of norepinephrine we are in process of weaning him from. His knee pressure is about 60 mmHg and systolic pressure above 90 mmHg. He is asymptomatic at this point. He is in paced atrial rhythm. We are in process of weaning the patient from norepinephrine. For some reason the patient is not on any oral anticoagulation. From the cardiac standpoint of view, we will continue the current medical regimen. Continue weaning the patient from norepinephrine. And follow-up with the patient. The examination is remarkable for regular rhythm with a systolic murmur at the right and left upper sternal border and diminished breathing sounds bilaterally and mild bilateral lower extremities edema June [id number] The patient was seen and evaluated this morning. He remains on a small dose of norepinephrine at this point. Otherwise he underwent dialysis yesterday. Blood work looks within normal limits. The examination is remarkable for regular rhythm with distant heart sounds and diminished breathing sounds bilaterally and mild bilateral lower extremities edema 06/13/2023 The patient was seen this morning. He still on norepinephrine. Otherwise he is stable. He had hemodialysis with removal of 4.5 L. The examination is remarkable for diminished breathing sounds bilaterally with a systolic murmur at the right upper sternal border and distant heart sounds. Assessment Heart failure, the patient seems to be euvolemic at this point Hypotension requiring small dose of norepinephrine Cardiomyopathy Persistent atrial fibrillation Permanent pacemaker End-stage renal failure Plan Try to wean the patient from norepinephrine Continue the current medical regimen Follow-up with the patient Objective - Vital Signs Vital signs: Vital Signs Temp 97.6 F 06/13/23 11:17 Pulse 78 06/13/23 11:17 Resp 16 06/13/23 11:17 BP 96/64 06/13/23 11:17 Pulse Ox 89 L 06/13/23 09:30 FiO2 Intake & Output 06/12/23 06/13/23 06/13/23 18:59 06:59 18:59 Intake Total 1588.260 694.826 637.287 Output Total 2400 0 1999 Balance -811.740 694.826 -1362.713 Weight 116.2 kg 105.7 kg Intake: IV 530 0 .9 30 0 Vancomycin 1,500 mg In 500 Sodium Chloride 0.9% 500 ml 500 ml @ 167 mls/hr IVPB ONCE@2100 [facility] Rx#: [id number] Intake, IV Titration 438.260 104.826 87.287 Amount Norepinephrine 4 mg In 438.260 104.826 87.287 Sodium Chloride 0.9% 250 ml @ 0.03 MCG/KG/MIN 12. 63 mls/hr IV .Q20H7M [facility] Rx#:[id number] Oral 750 60 150 Hemodialysis 400 400 Output: Urine 0 0 0 Hemodialysis 2400 1999 Other: Voiding Method Bedside Commode Bedside Commode Bedside Commode Urinal Urinal Urinal Diaper Diaper Diaper - Labs CBC & Chem 7: 06/13/23 03:19 06/13/23 03:19 Labs: Abnormal Lab Results - Last 24 Hours (Table) 06/12/23 06/12/23 06/13/23 Range/Units 16:32 19:35 03:19 RBC 2.82 L (4.30-5.90) m/uL Hgb 9.0 L (13.0-17.5) gm/dL Hct 27.7 L (39.0-53.0) % RDW 18.1 H (11.5-15.5) % Sodium (137-145) mmol/L Chloride (98-107) mmol/L Creatinine (0.66-1.25) mg/dL Glucose (74-99) mg/dL POC Glucose (mg/dL) 182 H 196 H (70-110) mg/dL Calcium (8.4-10.2) mg/dL 06/13/23 06/13/23 06/13/23 Range/Units 03:19 06:04 11:21 RBC (4.30-5.90) m/uL Hgb (13.0-17.5) gm/dL Hct (39.0-53.0) % RDW (11.5-15.5) % Sodium 128 L (137-145) mmol/L Chloride 95 L (98-107) mmol/L Creatinine 2.38 H (0.66-1.25) mg/dL Glucose 108 H (74-99) mg/dL POC Glucose (mg/dL) 116 H 172 H (70-110) mg/dL Calcium 8.1 L (8.4-10.2) mg/dL Microbiology - Last 24 Hours (Table) 06/11/23 16:43 Catheter Tip Culture - Preliminary Catheter Tip
--- NOTE | 2023-06-13 12:33 | P.PN ---
Subjective Progress Note Date: 06/13/23 Principal diagnosis: Acute peritonitis, septic shock, abdominal sepsis This is a 77-year-old white male with history of multiple medical problems including end-stage renal disease, on peritoneal dialysis, cardiomyopathy and LV dysfunction history of dual-chamber pacemaker, history of diabetes, benign essential hypertension, dyslipidemia, chronic atrial fibrillation, and obstr uctive sleep apnea syndrome. Patient was admitted back on 06/04/2023, presented mostly at the time with abdominal pain, and weakness. he was discovered to have peritonitis related to his peritoneal dialysis. Patient had positive peritoneal fluid for staphylococcal epidermidis, and he was seen by infectious disease on consultation, patient has been receiving vancomycin. Since admission the seen by many consultants including nephrology, internal medicine, cardiology, infectious disease, and vascular surgery for placement of a hemodialysis catheter. Yesterday the patient developed hypotension not responding to fluid boluses, and he was transferred to the ICU and he had to be placed on norep inephrine. He is presently on norepinephrine at 0.13 mcg/kg/m still receiving vancomycin. Patient is on 3 L nasal cannula and at night the patient is on CPAP. His peritoneal dialysis catheter remains in place and we have requested surgery to evaluate and remove. Patient is supposed to have his hemodialysis today. In the meantime he continues to have treatment for his acute peritonitis. Blood cultures have been negative so far. Peritoneal fluid from the abdomen was positive for Staphylococcus epidermidis Patient was reevaluated today on 06/12/23, remains in the ICU, remains on 5 L nasal cannula, remains on norepinephrine at 0.09 mcg/kg/m, patient remains on antibiotics for his peritonitis and obviously the patient needs a PICC line. Patient is on hemodialysis, he does have a dialysis catheter in his right IJ area, and I'm recommending a PICC line today since the patient may need to be on long-term antibiotics, WBC count today is 9.6 hemoglobin 9.6 sodium is 127 potassium 3.6 BUN 34 creatinine 3.57. Patient remains on vancomycin for his positive staph epidermidis in the peritoneal fluid. And his abdominal dialysis catheter has been removed Reevaluated today on 06/13/23, patient remains in the ICU, remains on small dose of norepinephrine at 0.05 mcg/kg/m, patient is now receiving hemodialysis, remains on antibiotics/vancomycin, continues to have minimal right lower qu adrant pain. Overall the patient is doing fairly well, and he had his peritoneal dialysis catheter removed a few days ago, and now he has a right IJ's hemodialysis catheter instead. Blood cultures have been negative. WBC count is 7.9 hemoglobin 9 sodium 128 potassium 3.7 ER and is 20 creatinine 2.38 bicarb is 25 chest x-ray this morning showed mostly left lower lobe atelectasis and possibly a small left pleural effusion. Objective - Vital Signs Vital signs: Vital Signs Temp 97.6 F 06/13/23 11:17 Pulse 73 06/13/23 11:30 Resp 9 L 06/13/23 11:30 BP 108/84 06/13/23 11:30 Pulse Ox 96 06/13/23 11:30 FiO2 Intake & Output 06/12/23 06/13/23 06/13/23 18:59 06:59 18:59 Intake Total 1588.260 694.826 637.287 Output Total 2400 0 1999 Balance -811.740 694.826 -1362.713 Weight 116.2 kg 105.7 kg Intake: IV 530 0 .9 30 0 Vancomycin 1,500 mg In 500 Sodium Chloride 0.9% 500 ml 500 ml @ 167 mls/hr IVPB ONCE@2100 ONE Rx#: [id number] Intake, IV Titration 438.260 104.826 87.287 Amount Norepinephrine 4 mg In 438.260 104.826 87.287 Sodium Chloride 0.9% 250 ml @ 0.03 MCG/KG/MIN 12. 63 mls/hr IV .Q20H7M [facility] Rx#:[id number] Oral 750 60 150 Hemodialysis 400 400 Output: Urine 0 0 0 Hemodialysis 2400 2000 Other: Voiding Method Bedside Commode Bedside Commode Bedside Commode Urinal Urinal Urinal Diaper Diaper Diaper - Exam Physical Exam: Revealed 77-year-old white male on 4 L nasal cannula, in no distress. Head: Atraumatic, normocephalic. HEENT:[Neck is supple.] [No neck masses.] [No thyromegaly.] [No JVD.] Chest: [Clear throughout, no crackles, no rhonchi, no wheezes.] Cardiac Exam: [Normal S1 and S2, no S3 gallop, no murmur.] Abdomen: Obese, tenderness noted in the right lower quadrant area at the site of the peritoneal dialysis catheter. No evidence of any purulent discharge. Extremities: [No clubbing, trace of bipedal edema, no cyanosis.], Upper extremities edema persists Neurological Exam: [No focal neurologic deficit.] Alert and oriented 3. Psychiatric: Normal mood affect and normal mental status examination. Skin: No rashes. Psychiatric: Normal mood affect and normal mental status examination. R - Labs CBC & Chem 7: 06/13/23 03:19 06/13/23 03:19 Labs: Abnormal Lab Results - Last 24 Hours (Table) 06/12/23 06/12/23 06/13/23 Range/Units 16:32 19:35 03:19 RBC 2.82 L (4.30-5.90) m/uL Hgb 9.0 L (13.0-17.5) gm/dL Hct 27.7 L (39.0-53.0) % RDW 18.1 H (11.5-15.5) % Sodium (137-145) mmol/L Chloride (98-107) mmol/L Creatinine (0.66-1.25) mg/dL Glucose (74-99) mg/dL POC Glucose (mg/dL) 182 H 196 H (70-110) mg/dL Calcium (8.4-10.2) mg/dL 06/13/23 06/13/23 06/13/23 Range/Units 03:19 06:04 11:21 RBC (4.30-5.90) m/uL Hgb (13.0-17.5) gm/dL Hct (39.0-53.0) % RDW (11.5-15.5) % Sodium 128 L (137-145) mmol/L Chloride 95 L (98-107) mmol/L Creatinine 2.38 H (0.66-1.25) mg/dL Glucose 108 H (74-99) mg/dL POC Glucose (mg/dL) 116 H 172 H (70-110) mg/dL Calcium 8.1 L (8.4-10.2) mg/dL Microbiology - Last 24 Hours (Table) 06/11/23 16:43 Catheter Tip Culture - Preliminary Catheter Tip Assessment and Plan Assessment: Impression: Acute peritonitis, sepsis, and septic shock since the patient is requiring norepinephrine. Remains on norepinephrine today at 0. 05 mcg/kg/m End-stage renal disease, patient has been transitioned to hemodialysis Chronic systolic congestive heart failure with ejection fraction of 35% Hypotension secondary to sepsis and septic shock requiring norepinephrine he is also on midodrine Leukocytosis secondary to above Cardiomyopathy and LV dysfunction Chronic persistent atrial fibrillation History of end-stage renal disease Severe pulmonary hypertension Type 2 diabetes with diabetic nephropathy History of sick sinus syndrome requiring permanent pacemaker implantation Recommendation: Continue norepinephrine Continue antibiotics /vancomycin Continue hemodialysis Continue GI and DVT prophylaxis Continue amiodarone Continue Florinef and midodrine Continue to monitor in the ICU, as long as the patient is requiring norepinephrine We continue to follow Time with Patient: Less than 30
--- NOTE | 2023-06-13 13:50 | P.PN ---
Subjective Patient is seen in follow-up for end-stage renal disease. He was switched from peritoneal to hemodialysis this admission. Tolerating hemodialysis well currently. Hemodynamically stable. On Levophed. Vital signs are stable. General: No acute distress. HEENT: Head exam is unremarkable. LUNGS: No audible rhonchi or wheezes. HEART: Rate and Rhythm are regular. ABDOMEN: Obese, nontender. EXTREMITITES: No edema. Chronic changes noted. Objective - Vital Signs Vital signs: Vital Signs Temp 97.8 F 06/13/23 12:00 Pulse 78 06/13/23 12:45 Resp 14 06/13/23 12:45 BP 104/40 06/13/23 12:45 Pulse Ox 96 06/13/23 12:45 FiO2 Intake & Output 06/12/23 06/13/23 06/13/23 18:59 06:59 18:59 Intake Total 1588.260 694.826 637.287 Output Total 2400 0 1999 Balance -811.740 694.826 -1362.713 Weight 116.2 kg 105.7 kg Intake: IV 530 0 .9 30 0 Vancomycin 1,500 mg In 500 Sodium Chloride 0.9% 500 ml 500 ml @ 167 mls/hr IVPB ONCE@2100 ONE Rx#: [id number] Intake, IV Titration 438.260 104.826 87.287 Amount Norepinephrine 4 mg In 438.260 104.826 87.287 Sodium Chloride 0.9% 250 ml @ 0.03 MCG/KG/MIN 12. 63 mls/hr IV .Q20H7M [facility] Rx#:[id number] Oral 750 60 150 Hemodialysis 400 400 Output: Urine 0 0 0 Hemodialysis 2400 2000 Other: Voiding Method Bedside Commode Bedside Commode Bedside Commode Urinal Urinal Urinal Diaper Diaper Diaper # Voids 1 - Labs CBC & Chem 7: 06/13/23 03:19 06/13/23 03:19 Labs: Abnormal Lab Results - Last 24 Hours (Table) 06/12/23 06/12/23 06/13/23 Range/Units 16:32 19:35 03:19 RBC 2.82 L (4.30-5.90) m/uL Hgb 9.0 L (13.0-17.5) gm/dL Hct 27.7 L (39.0-53.0) % RDW 18.1 H (11.5-15.5) % Sodium (137-145) mmol/L Chloride (98-107) mmol/L Creatinine (0.66-1.25) mg/dL Glucose (74-99) mg/dL POC Glucose (mg/dL) 182 H 196 H (70-110) mg/dL Calcium (8.4-10.2) mg/dL 06/13/23 06/13/23 06/13/23 Range/Units 03:19 06:04 11:21 RBC (4.30-5.90) m/uL Hgb (13.0-17.5) gm/dL Hct (39.0-53.0) % RDW (11.5-15.5) % Sodium 128 L (137-145) mmol/L Chloride 95 L (98-107) mmol/L Creatinine 2.38 H (0.66-1.25) mg/dL Glucose 108 H (74-99) mg/dL POC Glucose (mg/dL) 116 H 172 H (70-110) mg/dL Calcium 8.1 L (8.4-10.2) mg/dL Microbiology - Last 24 Hours (Table) 06/11/23 16:43 Catheter Tip Culture - Preliminary Catheter Tip Assessment and Plan Plan: Assessment: 1. End-stage renal disease maintained on hemodialysis. 2. Generalized weakness. 3. Hyponatremia secondary to chronic kidney disease. Hypervolemic. Better. 4. PD associated peritonitis. WBC count 1775 and 96% PMNs dated108/05/2022. Repeat cell count 65 and PMNs 77% dated 06/06/2023. Body fluid culture positive for staph epi. PD catheter removed as patient wanted to switch to hemodialysis. 5. Diabetes mellitus. 6. Chronic systolic CHF with ejection fraction of 35-40% with severe pulmonary hypertension. 7. Persistent A. fib been followed by cardiology. 8. History of permanent pacemaker implantation with generator change in April 2023. 9. Chronic kidney disease mineral bone disease. Phosphorus level 5.6 dated 06/06/23. On PhosLo. 10. Hypomagnesemia from poor intake. Replaced. Improved. Plan: Currently seen while undergoing hemodialysis. Next treatment on Sunday. IV antibiotics per infectious disease. Wean Levophed. Maintain midodrine. Time with Patient: Greater than 30
--- NOTE | 2023-06-13 14:05 | P.PN ---
Subjective Progress Note Date: 06/13/23 This is a pleasant 77 years old male with past medical history of end-stage renal disease undergoing peritoneal dialysis, history of cardiomyopathy and heart block status post dual chamber pacemaker , diabetes mellitus, GERD, low blood pressure, hyperlipidemia, constipation history of atrial fibrillation, sleep apnea patient presents because of abdominal pain on the right side. He says that his pain about 10/10 and his been going on for the last 2 weeks but gets more worse recently over 1-2 days. He reports some loose stool and diarrhea, he had 1 loose bowel movement yesterday. He is not able to eat but no vomiting Currently denies chest pain or dyspnea. No urinary complaints. No headache. No weakness numbness. He is nonsmoker no alcohol or no illicit drugs. Blood pressure currently the low side 86/54. Sodium 126, creatinine 4.7, glucose 148, magnesium 1.1, liver enzymes not elevated. ProBNP is 10,000. Lipase 198. Chest x-ray: No acute process except for trace bilateral pleural effusion CT of the abdomen and pelvis: Abdominal and pelvic ascites with peritoneal dialysis catheter in place. Small hiatal hernia, diverticulosis without acute diverticulitis, no small bowel obstruction, no free intraperitoneal air 05/06/2023 Patient's abdominal pain is better, it looks relaxed. He tolerates diet well 25-100% Peritoneal fluid cultures pending I discussed the case with ID team, undergone a treatment him with intraperitoneal vancomycin as he has previous culture from staph hominis recently. 06/07/2023 Patient is more up in bed, more awake and stronger although not completely back to baseline Although he tolerated some his diet however he still saw recurrent because of his infection in the intraperitoneal cavity. Culture is growing A's-negative staph. Antibiotics was adjusted to IV vancomycin only Plan to switch his peritoneal dialysis to hemodialysis by placing permacath tomorrow 06/08/2023 Patient had little more abdominal pain last night, he uses only Tylenol and he thinks that caused too much for him before going to the, Tylenol No. 3. Patient tolerates diet to certain level. His leukocytosis is improving He remains on IV vancomycin and culture is growing coagulase-negative staph. Plan to change his peritoneal dialysis catheter and to hemodialysis catheter tomorrow. C. diff tests is requested for diarrhea although the suspicion is low 06/09/2023 Patient abdominal pain is improving Diarrhea stopped after adding Questran Patient pending hemodialysis catheter placement to switch his peritoneal dialysis until HD and remove the PD catheter 06/10/2023 Patient improving slowly and gradually His abdominal pain is much better/10 and will control with pain medication His diarrhea improved after adding Questran however he still have some loose stool today. Plan to obtain hemodialysis catheter today shows large peritoneal dialysis and to hemodialysis and discontinue with the peritoneal catheter. Peritoneal fluid culture is growing staph epidermidis and patient currently covered with IV vancomycin 06/11. Patient seen and examined. WBC 15, hemoglobin 9.8, platelet count 3:30, sodium 126, potassium 4.2, BUN 67, creatinine 6.37. Currently undergoing hemodialysis. Currently on Levophed 06/12. Patient seen and examined. Blood work done This morning showed WBC 9.6, hemoglobin 9.6, platelet count 326 sodium 127, potassium 3.6, BUN and 34, crea tinine 3.57. Patient was getting dialysis today. Left upper extremity swollen 06/13. Patient seen and examined. States he is doing better compared to yesterday, left upper extremity swelling has improved REVIEW OF SYSTEMS: CONSTITUTIONAL: No fever, no malaise,. CARDIOVASCULAR: No chest pain, no palpitations, no syncope. PULMONARY: No shortness of breath, no cough, GASTROINTESTINAL: No diarrhea, no nausea, no vomiting, no abdominal pain. NEUROLOGICAL: No headaches, no weakness, PHYSICAL EXAMINATION: GENERAL: The patient is alert and oriented x3, not in any acute distress. Chronically ill-looking HEENT: Pupils are round and equally reacting to light. EOMI. No scleral icterus. No conjunctival pallor. Normocephalic, atraumatic. No pharyngeal erythema. No thyromegaly. CARDIOVASCULAR: S1 and S2 present. No murmurs, rubs, or gallops. PULMONARY: Diminished breath sounds at the bases bilaterally, no wheezing or crackles. ABDOMEN: Soft, nontender, nondistended, normoactive bowel sounds. No palpable organomegaly. MUSCULOSKELETAL: No joint swelling or deformity. EXTREMITIES: No cyanosis, clubbing, 1+ pitting edema lower extremities. Left upper extremity swollen NEUROLOGICAL: Gross neurological examination did not reveal any focal deficits. SKIN: No rashes. Assessment and plan Acute peritonitis, sepsis, suspect septic shock End-stage renal disease, patient has been transitioned to hemodialysis from peritoneal dialysis Chronic systolic congestive heart failure with ejection fraction of 35% Hypotension secondary to sepsis and septic shock requiring norepinephrine he is also on midodrine Leukocytosis Cardiomyopathy and LV dysfunction Chronic persistent atrial fibrillation History of end-stage renal disease Severe pulmonary hypertension Type 2 diabetes with diabetic nephropathy History of sick sinus syndrome requiring permanent pacemaker implantation Plan: Monitor vital signs Monitor CBC Monitor CMP Continue telemetry monitoring Encourage use of incentive spirometer continue Levophed, try to wean off Levophed Continue amiodarone Continue midodrine Continue vancomycin pharmacy dose Nephrology following, permacath placed, peritoneal dialysis catheter removed by surgery on 06/11. Continue hemodialysis per nephrology ID following Critical care following Labs and medication were reviewed.. Continue same treatment. Continue with symptomatic treatment. Resume home medication. Monitor labs and vitals. DVT and GI prophylaxis. Further recommendations as per clinical course of the patient Dictation was produced using [employer] dictation software. please excuse any grammatical, word or spelling errors. Objective - Vital Signs Vital signs: Vital Signs Temp 97.8 F 06/13/23 12:00 Pulse 78 06/13/23 12:45 Resp 14 06/13/23 12:45 BP 104/40 06/13/23 12:45 Pulse Ox 96 06/13/23 12:45 FiO2 Intake & Output 06/12/23 06/13/23 06/13/23 18:59 06:59 18:59 Intake Total 1588.260 694.826 637.287 Output Total 2400 0 1999 Balance -811.740 694.826 -1362.713 Weight 116.2 kg 105.7 kg Intake: IV 530 0 .9 30 0 Vancomycin 1,500 mg In 500 Sodium Chloride 0.9% 500 ml 500 ml @ 167 mls/hr IVPB ONCE@2100 ONE Rx#: [id number] Intake, IV Titration 438.260 104.826 87.287 Amount Norepinephrine 4 mg In 438.260 104.826 87.287 Sodium Chloride 0.9% 250 ml @ 0.03 MCG/KG/MIN 12. 63 mls/hr IV .Q20H7M [facility] Rx#:[id number] Oral 750 60 150 Hemodialysis 400 400 Output: Urine 0 0 0 Hemodialysis 2400 2000 Other: Voiding Method Bedside Commode Bedside Commode Bedside Commode Urinal Urinal Urinal Diaper Diaper Diaper # Voids 1 - Labs CBC & Chem 7: 11/22/23 03:19 06/13/23 03:19 Labs: Abnormal Lab Results - Last 24 Hours (Table) 06/12/23 06/12/23 06/13/23 Range/Units 16:32 19:35 03:19 RBC 2.82 L (4.30-5.90) m/uL Hgb 9.0 L (13.0-17.5) gm/dL Hct 27.7 L (39.0-53.0) % RDW 18.1 H (11.5-15.5) % Sodium (137-145) mmol/L Chloride (98-107) mmol/L Creatinine (0.66-1.25) mg/dL Glucose (74-99) mg/dL POC Glucose (mg/dL) 182 H 196 H (70-110) mg/dL Calcium (8.4-10.2) mg/dL 06/13/23 06/13/23 06/13/23 Range/Units 03:19 06:04 11:21 RBC (4.30-5.90) m/uL Hgb (13.0-17.5) gm/dL Hct (39.0-53.0) % RDW (11.5-15.5) % Sodium 128 L (137-145) mmol/L Chloride 95 L (98-107) mmol/L Creatinine 2.38 H (0.66-1.25) mg/dL Glucose 108 H (74-99) mg/dL POC Glucose (mg/dL) 116 H 172 H (70-110) mg/dL Calcium 8.1 L (8.4-10.2) mg/dL Microbiology - Last 24 Hours (Table) 06/11/23 16:43 Catheter Tip Culture - Preliminary Catheter Tip
[2023-06-13 17:18] LABS: Glucose,Whole Blood 196 mg/dL (70-110)
[2023-06-13] MEDS: NOREPINEPHRINE 4 MG in SODIUM CHLORIDE 0.9% 250 ML IV SCH ×2 (19:30→23:40)
[2023-06-13 20:47] LABS: Glucose,Whole Blood 207 mg/dL (70-110)
[2023-06-14 04:25] LABS: Anisocytosis Slight; Basophils % (A) 0 %; Eosinophils # (A) 0.2 k/uL (0-0.7); Eosinophils % (A) 3 %; HCT 27.7 % (39.0-53.0); HGB 8.8 gm/dL (13.0-17.5); Hypochromasia Moderate; Lymphocytes # (A) 1.5 k/uL (1.0-4.8); Lymphocytes % (A) 20 %; MCH 31.5 pg (25.0-35.0); MCHC 31.7 g/dL (31.0-37.0); MCV 99.4 fL (80.0-100.0); Macrocytosis Slight; Mean Platelet Volume 7.5; Monocytes # (A) 0.4 k/uL (0-1.0); Monocytes % (A) 5 %; Neutrophils # (A) 5.2 k/uL (1.3-7.7); Neutrophils % (A) 70 %; Platelet Count 319 k/uL (150-450); Poikilocytosis Slight; RBC 2.79 m/uL (4.30-5.90); RDW 18.3 % (11.5-15.5); WBC 7.5 k/uL (3.8-10.6)
[2023-06-14 05:13] LABS: African American GFR (CKD) 33 (>60 ml/min/1.73 sqM); Anion Gap 8 mmol/L; Blood Urea Nitrogen 21 mg/dL (9-20); Carbon Dioxide 28 mmol/L (22-30); Chloride 93 mmol/L (98-107); Glucose 120 mg/dL (74-99); Non-African American GFR(CKD) 29 (>60 ml/min/1.73 sqM); Potassium 3.6 mmol/L (3.5-5.1); Sodium 129 mmol/L (137-145)
[2023-06-14 05:18] LABS: Vancomycin,Random 21.4 ug/mL
[2023-06-14 06:25] LABS: Glucose,Whole Blood 137 mg/dL (70-110)
[2023-06-14] MEDS: INSULIN ASPART (NovoLOG) 100 UNIT/ML VIAL SQ SCH ×4 (06:30→20:28)
[2023-06-14] MEDS: CALCIUM ACETATE 667 MG TAB PO SCH ×3 (07:16→18:01)
--- NOTE | 2023-06-14 08:06 | P.PN ---
Subjective Progress Note Date: 06/14/23 Principal diagnosis: Permanent pacemaker The patient is a 77-year-old gentleman with a past medical history significant for permanent pacemaker and cardiomyopathy and history of atrial fibrillation. Patient currently not on anticoagulation as well as multiple comorbid conditions including renal failure and dialysis was admitted to the hospital with abdominal discomfort felt to be related to peritonitis. 06/11/2023 The patient was seen and evaluated this morning. He seems to be stable beside he is on a very small dose of norepinephrine we are in process of weaning him fr om. His knee pressure is about 60 mmHg and systolic pressure above 90 mmHg. He is asymptomatic at this point. He is in paced atrial rhythm. We are in process of weaning the patient from norepinephrine. For some reason the patient is not on any oral anticoagulation. From the cardiac standpoint of view, we will continue the current medical regimen. Continue weaning the patient from norepinephrine. And follow-up with the patient. The examination is remarkable for regular rhythm with a systolic murmur at the right and left upper sternal border and diminished breathing sounds bilaterally and mild bilateral lower extremities edema June 122022 The patient was seen and evaluated this morning. He remains on a small dose of norepinephrine at this point. Otherwise he underwent dialysis yesterday. Blood work looks within normal limits. The examination is remarkable for regular rhythm with distant heart sounds and diminished breathing sounds bilaterally and mild bilateral lower extremities edema 06/13/2023 The patient was seen this morning. He still on norepinephrine. Otherwise he is stable. He had hemodialysis with removal of 4.5 L. The examination is remarkable for diminished breathing sounds bilaterally with a systolic murmur at the right upper sternal border and distant heart sounds. June 142022 The patient was seen and evaluated this morning. He underwent dialysis yesterday and he is going to have another dialysis tomorrow on Sunday. Hemodynamically he still unstable and requiring small dose of norepinephrine at this point. He is on midodrine to support the blood pressure. We are in process of weaning him from norepinephrine. Otherwise he still have upper and lower extremities edema. The examination is remarkable for regular rhythm with distant heart sounds and diminished breathing sounds bilaterally and upper and lower extremities edema. The hemoglobin is a stable. Assessment Heart failure, the patient seems to be euvolemic at this point Hypotension requiring small dose of norepinephrine Cardiomyopathy with an ejection fraction between 30-35% History of atrial fibrillation Permanent pacemaker End-stage renal failure Plan Try to wean the patient from norepinephrine Continue the current medical regimen Follow-up with the patient Objective - Vital Signs Vital signs: Vital Signs Temp 97.6 F 06/14/23 04:00 Pulse 77 06/14/23 07:45 Resp 7 L 06/14/23 07:45 BP 99/41 06/14/23 07:15 Pulse Ox 92 L 06/14/23 07:45 FiO2 Intake & Output 06/13/23 06/14/23 06/14/23 18:59 06:59 18:59 Intake Total 748.849 353.369 25.962 Output Total 2200 0 0 Balance -1451.151 353.369 25.962 Weight 105.9 kg Intake: IV 0 0 .9 0 0 Intake, IV Titration 198.849 273.369 25.962 Amount Norepinephrine 4 mg In 198.849 273.369 25.962 Sodium Chloride 0.9% 250 ml @ 0.03 MCG/KG/MIN 12. 63 mls/hr IV .Q20H7M [facility] Rx#:[id number] Oral 150 80 Hemodialysis 400 Output: Urine 200 0 0 Hemodialysis 2000 Other: Voiding Method Bedside Commode Bedside Commode Urinal Urinal Diaper Diaper # Voids 1 - Labs CBC & Chem 7: 06/14/23 03:37 06/14/23 03:37 Labs: Abnormal Lab Results - Last 24 Hours (Table) 06/13/23 06/13/23 06/13/23 Range/Units 11: 17:16 20:46 RBC (4.30-5.90) m/uL Hgb (13.0-17.5) gm/dL Hct (39.0-53.0) % RDW (11.5-15.5) % Sodium (137-145) mmol/L Chloride (98-107) mmol/L BUN (9-20) mg/dL Creatinine (0.66-1.25) mg/dL Glucose (74-99) mg/dL POC Glucose (mg/dL) 172 H 196 H 207 H (70-110) mg/dL Calcium (8.4-10.2) mg/dL 06/14/23 06/14/23 06/14/23 Range/Units 03:37 03:37 06:23 RBC 2.79 L (4.30-5.90) m/uL Hgb 8.8 L (13.0-17.5) gm/dL Hct 27.7 L (39.0-53.0) % RDW 18.3 H (11.5-15.5) % Sodium 129 L (137-145) mmol/L Chloride 93 L (98-107) mmol/L BUN 21 H (9-20) mg/dL Creatinine 2.16 H (0.66-1.25) mg/dL Glucose 120 H (74-99) mg/dL POC Glucose (mg/dL) 137 H (70-110) mg/dL Calcium 8.0 L (8.4-10.2) mg/dL Microbiology - Last 24 Hours (Table) 06/11/23 16:43 Catheter Tip Culture - Preliminary Catheter Tip
[2023-06-14] MEDS: SUCRALFATE 1 GM TAB PO SCH ×2 (09:25→20:30)
[2023-06-14] MEDS: DOCUSATE 100 MG CAP PO SCH ×2 (09:25→20:28)
[2023-06-14] MEDS: MIDODRINE 5 MG TAB PO SCH ×4 (09:25→22:01)
[2023-06-14] MEDS: allopurinoL 300 MG TAB PO SCH (09:25)
[2023-06-14] MEDS: PANTOPRAZOLE 40 MG/10 ML VIAL IVP SCH (09:26)
[2023-06-14] MEDS: FERROUS SULFATE 325 MG TAB PO SCH (09:26)
[2023-06-14] MEDS: ASPIRIN 81 MG PO SCH (09:26)
[2023-06-14] MEDS: HEPARIN SODIUM,PORCINE 5,000 UNIT/ML 1 ML VIAL SQ SCH ×2 (09:26→20:28)
[2023-06-14] MEDS: AMIODARONE 200 MG TAB PO SCH (09:26)
[2023-06-14] MEDS: CHOLESTYRAMINE (WITH SUGAR) 4 GM PACKET PO SCH ×2 (09:27→17:51)
--- NOTE | 2023-06-14 11:01 | P.PN ---
Subjective Progress Note Date: 06/14/23 Principal diagnosis: Acute peritonitis, septic shock, abdominal sepsis This is a 77-year-old white male with history of multiple medical problems including end-stage renal disease, on peritoneal dialysis, cardiomyopathy and LV dysfunction history of dual-chamber pacemaker, history of diabetes, benign essential hypertension, dyslipidemia, chronic atrial fibrillation, and obstr uctive sleep apnea syndrome. Patient was admitted back on 06/04/2023, presented mostly at the time with abdominal pain, and weakness. he was discovered to have peritonitis related to his peritoneal dialysis. Patient had positive peritoneal fluid for staphylococcal epidermidis, and he was seen by infectious disease on consultation, patient has been receiving vancomycin. Since admission the seen by many consultants including nephrology, internal medicine, cardiology, infectious disease, and vascular surgery for placement of a hemodialysis catheter. Yesterday the patient developed hypotension not responding to fluid boluses, and he was transferred to the ICU and he had to be placed on norep inephrine. He is presently on norepinephrine at 0.13 mcg/kg/m still receiving vancomycin. Patient is on 3 L nasal cannula and at night the patient is on CPAP. His peritoneal dialysis catheter remains in place and we have requested surgery to evaluate and remove. Patient is supposed to have his hemodialysis today. In the meantime he continues to have treatment for his acute peritonitis. Blood cultures have been negative so far. Peritoneal fluid from the abdomen was positive for Staphylococcus epidermidis Patient was reevaluated today on 06/12/23, remains in the ICU, remains on 5 L nasal cannula, remains on norepinephrine at 0.09 mcg/kg/m, patient remains on antibiotics for his peritonitis and obviously the patient needs a PICC line. Patient is on hemodialysis, he does have a dialysis catheter in his right IJ area, and I'm recommending a PICC line today since the patient may need to be on long-term antibiotics, WBC count today is 9.6 hemoglobin 9.6 sodium is 127 potassium 3.6 BUN 34 creatinine 3.57. Patient remains on vancomycin for his positive staph epidermidis in the peritoneal fluid. And his abdominal dialysis catheter has been removed Reevaluated today on 06/13/23, patient remains in the ICU, remains on small dose of norepinephrine at 0.05 mcg/kg/m, patient is now receiving hemodialysis, remains on antibiotics/vancomycin, continues to have minimal right lower qu adrant pain. Overall the patient is doing fairly well, and he had his peritoneal dialysis catheter removed a few days ago, and now he has a right IJ's hemodialysis catheter instead. Blood cultures have been negative. WBC count is 7.9 hemoglobin 9 sodium 128 potassium 3.7 ER and is 20 creatinine 2.38 bicarb is 25 chest x-ray this morning showed mostly left lower lobe atelectasis and possibly a small left pleural effusion. Patient was reevaluated today on 06/14/23, remains in the ICU, remains on 4 L nasal cannula, he is on a lower dose of norepinephrine at 0.03 mcg/kg/m still receiving antibiotics for his acute peritonitis and sepsis and septic shock. Remains intermittently on hemodialysis. Patient denies any specific complaints, his CBC is relatively normal hemoglobin is 8.8 basic metabolic profile is normal BUN is 21 creatinine 2.16 sodium is 129. Chest x-ray from yesterday showed cardiomegaly and mild pulmonary vascular congestion with small pleural effusions and atelectasis. Objective - Vital Signs Vital signs: Vital Signs Temp 97.8 F 06/14/23 08:00 Pulse 72 06/14/23 10:00 Resp 0 L 06/14/23 10:00 BP 140/34 06/14/23 10:00 Pulse Ox 98 06/14/23 10:00 FiO2 Intake & Output 06/13/23 06/14/23 06/14/23 18:59 06:59 18:59 Intake Total 748.849 353.369 447.012 Output Total 2200 0 0 Balance -1451.151 353.369 447.012 Weight 105.9 kg Intake: IV 0 0 .9 0 0 Intake, IV Titration 198.849 273.369 47.012 Amount Norepinephrine 4 mg In 198.849 273.369 47.012 Sodium Chloride 0.9% 250 ml @ 0.03 MCG/KG/MIN 12. 63 mls/hr IV .Q20H7M [facility] Rx#:[id number] Oral 150 80 400 Hemodialysis 400 Output: Urine 200 0 0 Hemodialysis 2000 Other: Voiding Method Bedside Commode Bedside Commode Bedside Commode Urinal Urinal Urinal Diaper Diaper # Voids 1 - Exam Physical Exam: Revealed 77-year-old white male on 4 L nasal cannula, in no distress. Head: Atraumatic, normocephalic. HEENT:[Neck is supple.] [No neck masses.] [No thyromegaly.] [No JVD.] Chest: [Clear throughout, no crackles, no rhonchi, no wheezes.] Cardiac Exam: [Normal S1 and S2, no S3 gallop, no murmur.] Abdomen: Obese, tenderness noted in the right lower quadrant area at the site of the peritoneal dialysis catheter. No evidence of any purulent discharge. Extremities: [No clubbing, no edema, no cyanosis Neurological Exam: [No focal neurologic deficit.] Alert and oriented 3. Psychiatric: Normal mood affect and normal mental status examination. Skin: No rashes. Psychiatric: Normal mood affect and normal mental status examination. R - Labs CBC & Chem 7: 06/14/23 03:37 06/14/23 03:37 Labs: Abnormal Lab Results - Last 24 Hours (Table) 06/13/23 06/13/23 06/13/23 Range/Units 11:21 17:16 20:46 RBC (4.30-5.90) m/uL Hgb (13.0-17.5) gm/dL Hct (39.0-53.0) % RDW (11.5-15.5) % Sodium (137-145) mmol/L Chloride (98-107) mmol/L BUN (9-20) mg/dL Creatinine (0.66-1.25) mg/dL Glucose (74-99) mg/dL POC Glucose (mg/dL) 172 H 196 H 207 H (70-110) mg/dL Calcium (8.4-10.2) mg/dL 06/14/23 06/14/23 06/14/23 Range/Units 03:37 03:37 06:23 RBC 2.79 L (4.30-5.90) m/uL Hgb 8.8 L (13.0-17.5) gm/dL Hct 27.7 L (39.0-53.0) % RDW 18.3 H (11.5-15.5) % Sodium 129 L (137-145) mmol/L Chloride 93 L (98-107) mmol/L BUN 21 H (9-20) mg/dL Creatinine 2.16 H (0.66-1.25) mg/dL Glucose 120 H (74-99) mg/dL POC Glucose (mg/dL) 137 H (70-110) mg/dL Calcium 8.0 L (8.4-10.2) mg/dL Microbiology - Last 24 Hours (Table) 06/11/23 16:43 Catheter Tip Culture - Final Catheter Tip Assessment and Plan Assessment: Impression: Acute peritonitis, sepsis, and septic shock since the patient is requiring norepinephrine. Remains on norepinephrine today at 0. 03 mcg/kg/m End-stage renal disease, on hemodialysis, he was previously on peritoneal dialysis Chronic systolic congestive heart failure with ejection fraction of 35% Hypotension secondary to sepsis and septic shock requiring norepinephrine he is also on midodrine , will check cortisol level and decide whether the patient will need to be on Solu-Cortef Leukocytosis secondary to above Cardiomyopathy and LV dysfunction Chronic persistent atrial fibrillation History of end-stage renal disease Severe pulmonary hypertension Type 2 diabetes with diabetic nephropathy History of sick sinus syndrome requiring permanent pacemaker implantation Recommendation: Continue norepinephrine , titrate accordingly Continue antibiotics /vancomycin, and spare infectious disease on the case Continue hemodialysis Continue GI and DVT prophylaxis Continue amiodarone Continue Florinef and midodrine Continue to monitor in the ICU We continue to follow Time with Patient: Less than 30
[2023-06-14 11:13] LABS: Glucose,Whole Blood 159 mg/dL (70-110)
--- NOTE | 2023-06-14 12:27 | P.PN ---
Subjective Progress Note Date: 06/14/23 Follow-up for ESRD. Off vasopressors. Objective - Vital Signs Vital signs: Vital Signs Temp 97.8 F 06/14/23 08:00 Pulse 80 06/14/23 11:15 Resp 21 06/14/23 11:15 BP 117/24 06/14/23 11:15 Pulse Ox 94 L 06/14/23 11:15 FiO2 Intake & Output 06/13/23 06/14/23 06/14/23 18:59 06:59 18:59 Intake Total 748.849 353.369 647.012 Output Total 2200 0 0 Balance -1451.151 353.369 647.012 Weight 105.9 kg Intake: IV 0 0 .9 0 0 Intake, IV Titration 198.849 273.369 47.012 Amount Norepinephrine 4 mg In 198.849 273.369 47.012 Sodium Chloride 0.9% 250 ml @ 0.03 MCG/KG/MIN 12. 63 mls/hr IV .Q20H7M [facility] Rx#:[id number] Oral 150 80 600 Hemodialysis 400 Output: Urine 200 0 0 Hemodialysis 2000 Other: Voiding Method Bedside Commode Bedside Commode Bedside Commode Urinal Urinal Urinal Diaper Diaper # Voids 1 - Exam No acute distress S1-S2 heard, right jugular permacath Decreased breath sounds Abdomen soft Edema - Labs CBC & Chem 7: 06/14/23 03:37 06/14/23 03:37 Labs: Abnormal Lab Results - Last 24 Hours (Table) 06/13/23 06/13/23 06/14/23 Range/Units 17:16 20:46 03:37 RBC (4.30-5.90) m/uL Hgb (13.0-17.5) gm/dL Hct (39.0-53.0) % RDW (11.5-15.5) % Sodium 129 L (137-145) mmol/L Chloride 93 L (98-107) mmol/L BUN 21 H (9-20) mg/dL Creatinine 2.16 H (0.66-1.25) mg/dL Glucose 120 H (74-99) mg/dL POC Glucose (mg/dL) 196 H 207 H (70-110) mg/dL Calcium 8.0 L (8.4-10.2) mg/dL 1106/14/23 06/14/23 Range/Units 03:37 06:23 11:11 RBC 2.79 L (4.30-5.90) m/uL Hgb 8.8 L (13.0-17.5) gm/dL Hct 27.7 L (39.0-53.0) % RDW 18.3 H (11.5-15.5) % Sodium (137-145) mmol/L Chloride (98-107) mmol/L BUN (9-20) mg/dL Creatinine (0.66-1.25) mg/dL Glucose (74-99) mg/dL POC Glucose (mg/dL) 137 H 159 H (70-110) mg/dL Calcium (8.4-10.2) mg/dL Microbiology - Last 24 Hours (Table) 06/11/23 16:43 Catheter Tip Culture - Final Catheter Tip Assessment and Plan Assessment: #1 ESRD on peritoneal dialysis. Currently hemodialysis #2 hypervolemic hyponatremia #3 secondary bacterial peritonitis secondary to peritoneal dialysis catheter. #4 CHF with systolic dysfunction EF of 40% #5 persistent A. fib #6 anemia with chronic kidney disease #7 metabolic bone disease #8 chronic hypotension Plan: #1 hemodialysis tomorrow, with the goal UF of 2.5 L #2 continue with midodrine. #3 ICU care
--- NOTE | 2023-06-14 12:55 | P.PN ---
Subjective Progress Note Date: 06/14/23 This is a pleasant 77 years old male with past medical history of end-stage renal disease undergoing peritoneal dialysis, history of cardiomyopathy and heart block status post dual chamber pacemaker , diabetes mellitus, GERD, low blood pressure, hyperlipidemia, constipation history of atrial fibrillation, sleep apnea patient presents because of abdominal pain on the right side. He says that his pain about 10/10 and his been going on for the last 2 weeks but gets more worse recently over 1-2 days. He reports some loose stool and diarrhea, he had 1 loose bowel movement yesterday. He is not able to eat but no vomiting Currently denies chest pain or dyspnea. No urinary complaints. No headache. No weakness numbness. He is nonsmoker no alcohol or no illicit drugs. Blood pressure currently the low side 86/54. Sodium 126, creatinine 4.7, glucose 148, magnesium 1.1, liver enzymes not elevated. ProBNP is 10,000. Lipase 198. Chest x-ray: No acute process except for trace bilateral pleural effusion CT of the abdomen and pelvis: Abdominal and pelvic ascites with peritoneal dialysis catheter in place. Small hiatal hernia, diverticulosis without acute diverticulitis, no small bowel obstruction, no free intraperitoneal air 05/06/2023 Patient's abdominal pain is better, it looks relaxed. He tolerates diet well 25-100% Peritoneal fluid cultures pending I discussed the case with ID team, undergone a treatment him with intraperitoneal vancomycin as he has previous culture from staph hominis recently. 06/07/2023 Patient is more up in bed, more awake and stronger although not completely back to baseline Although he tolerated some his diet however he still saw recurrent because of his infection in the intraperitoneal cavity. Culture is growing A's-negative staph. Antibiotics was adjusted to IV vancomycin only Plan to switch his peritoneal dialysis to hemodialysis by placing permacath tomorrow 06/08/2023 Patient had little more abdominal pain last night, he uses only Tylenol and he thinks that caused too much for him before going to the, Tylenol No. 3. Patient tolerates diet to certain level. His leukocytosis is improving He remains on IV vancomycin and culture is growing coagulase-negative staph. Plan to change his peritoneal dialysis catheter and to hemodialysis catheter tomorrow. C. diff tests is requested for diarrhea although the suspicion is low 06/09/2023 Patient abdominal pain is improving Diarrhea stopped after adding Questran Patient pending hemodialysis catheter placement to switch his peritoneal dialysis until HD and remove the PD catheter 06/10/2023 Patient improving slowly and gradually His abdominal pain is much better/10 and will control with pain medication His diarrhea improved after adding Questran however he still have some loose stool today. Plan to obtain hemodialysis catheter today shows large peritoneal dialysis and to hemodialysis and discontinue with the peritoneal catheter. Peritoneal fluid culture is growing staph epidermidis and patient currently covered with IV vancomycin 06/11. Patient seen and examined. WBC 15, hemoglobin 9.8, platelet count 3:30, sodium 126, potassium 4.2, BUN 67, creatinine 6.37. Currently undergoing hemodialysis. Currently on Levophed 06/12. Patient seen and examined. Blood work done This morning showed WBC 9.6, hemoglobin 9.6, platelet count 326 sodium 127, potassium 3.6, BUN and 34, crea tinine 3.57. Patient was getting dialysis today. Left upper extremity swollen 06/13. Patient seen and examined. States he is doing better compared to yesterday, left upper extremity swelling has improved. 06/14. Patient seen and examined patient currently sitting upright in the bed, eating his meal. States breathing is improving a lot. Still having abdominal pain at the site of PD catheter. Continues to be on 4 L of oxygen. REVIEW OF SYSTEMS: CONSTITUTIONAL: No fever, no malaise,. CARDIOVASCULAR: No chest pain, no palpitations, no syncope. PULMONARY: No shortness of breath, no cough, GASTROINTESTINAL: No diarrhea, no nausea, no vomiting NEUROLOGICAL: No headaches, no weakness, PHYSICAL EXAMINATION: GENERAL: The patient is alert and oriented x3, not in any acute distress. Chronically ill-looking HEENT: Pupils are round and equally reacting to light. EOMI. No scleral icterus. No conjunctival pallor. Normocephalic, atraumatic. No pharyngeal erythema. No thyromegaly. CARDIOVASCULAR: S1 and S2 present. No murmurs, rubs, or gallops. PULMONARY: Diminished breath sounds at the bases bilaterally, no wheezing or crackles. ABDOMEN: Soft, nontender, nondistended, normoactive bowel sounds. No palpable organomegaly. MUSCULOSKELETAL: No joint swelling or deformity. EXTREMITIES: No cyanosis, clubbing, 1+ pitting edema lower extremities. Left upper extremity swollen NEUROLOGICAL: Gross neurological examination did not reveal any focal deficits. SKIN: No rashes. Assessment and plan Acute peritonitis, sepsis, suspect septic shock End-stage renal disease, patient has been transitioned to hemodialysis from peritoneal dialysis Chronic systolic congestive heart failure with ejection fraction of 35% Hypotension secondary to sepsis and septic shock requiring norepinephrine he is also on midodrine Leukocytosis Cardiomyopathy and LV dysfunction Chronic persistent atrial fibrillation History of end-stage renal disease Severe pulmonary hypertension Type 2 diabetes with diabetic nephropathy History of sick sinus syndrome requiring permanent pacemaker implantation Plan: Monitor vital signs Monitor CBC Monitor CMP Continue telemetry monitoring Encourage use of incentive spirometer continue Levophed, try to wean off Levophed Continue amiodarone Continue midodrine Continue vancomycin pharmacy dose Nephrology following, permacath placed, peritoneal dialysis catheter removed by surgery on 06/11. Continue hemodialysis per nephrology ID following Critical care following Labs and medication were reviewed.. Continue same treatment. Continue with symptomatic treatment. Resume home medication. Monitor labs and vitals. DVT and GI prophylaxis. Further recommendations as per clinical course of the patient Dictation was produced using [employer] dictation software. please excuse any gr ammatical, word or spelling errors. Objective - Vital Signs Vital signs: Vital Signs Temp 97.8 F 06/14/23 08:00 Pulse 80 06/14/23 11:15 Resp 21 06/14/23 11:15 BP 117/24 06/14/23 11:15 Pulse Ox 94 L 06/14/23 11:15 FiO2 Intake & Output 06/13/23 06/14/23 06/14/23 18:59 06:59 18:59 Intake Total 748.849 353.369 647.012 Output Total 2200 0 0 Balance -1451.151 353.369 647.012 Weight 105.9 kg Intake: IV 0 0 .9 0 0 Intake, IV Titration 198.849 273.369 47.012 Amount Norepinephrine 4 mg In 198.849 273.369 47.012 Sodium Chloride 0.9% 250 ml @ 0.03 MCG/KG/MIN 12. 63 mls/hr IV .Q20H7M [facility] Rx#:[id number] Oral 150 80 600 Hemodialysis 400 Output: Urine 200 0 0 Hemodialysis 2000 Other: Voiding Method Bedside Commode Bedside Commode Bedside Commode Urinal Urinal Urinal Diaper Diaper # Voids 1 - Labs CBC & Chem 7: 06/14/23 03:37 11/23/23 03:37 Labs: Abnormal Lab Results - Last 24 Hours (Table) 06/13/23 06/13/23 06/14/23 Range/Units 17:16 20:46 03:37 RBC (4.30-5.90) m/uL Hgb (13.0-17.5) gm/dL Hct (39.0-53.0) % RDW (11.5-15.5) % Sodium 129 L (137-145) mmol/L Chloride 93 L (98-107) mmol/L BUN 21 H (9-20) mg/dL Creatinine 2.16 H (0.66-1.25) mg/dL Glucose 120 H (74-99) mg/dL POC Glucose (mg/dL) 196 H 207 H (70-110) mg/dL Calcium 8.0 L (8.4-10.2) mg/dL 06/14/23 06/14/23 06/14/23 Range/Units 03:37 06:23 11:11 RBC 2.79 L (4.30-5.90) m/uL Hgb 8.8 L (13.0-17.5) gm/dL Hct 27.7 L (39.0-53.0) % RDW 18.3 H (11.5-15.5) % Sodium (137-145) mmol/L Chloride (98-107) mmol/L BUN (9-20) mg/dL Creatinine (0.66-1.25) mg/dL Glucose (74-99) mg/dL POC Glucose (mg/dL) 137 H 159 H (70-110) mg/dL Calcium (8.4-10.2) mg/dL Microbiology - Last 24 Hours (Table) 06/11/23 16:43 Catheter Tip Culture - Final Catheter Tip
--- NOTE | 2023-06-14 13:24 | P.PN ---
Subjective Progress Note Date: 06/13/23 Principal diagnosis: Reason for follow-up is peritoneal dialysis associated peritonitis Patient is a 77-year-old male with a past medical history significant for atrial fibrillation diabetes mellitus hypertension hyperlipidemia end-stage renal disease currently on peritoneal dialysis presenting to the hospital for evaluation of abdominal pain, patient has been diagnosed with a PD catheter assisted peritonitis. Patient did have a right IJ dialysis catheter placed on 06/09/2023, the peritoneal dialysis catheter was removed on 06/11/2023 On today's evaluation that is 06/13/2023, the patient remains to be afebrile, the patient is breathing comfortably on 3 L nasal cannula oxygen however patient denies any shortness of breath, the patient denies chest pain or any cough , patient abdominal pain has decreased in intensity, no nausea/vomiting and no diarrhea Patient did have a white count is 7.9, creatinine is 2.38, peritoneal fluid with a white count of 1775 cultures are growing coagulase negative staph, blood culture has been negative Objective - Vital Signs Vital signs: Vital Signs Temp 97.6 F 06/13/23 11:17 Pulse 78 06/13/23 11:17 Resp 16 06/13/23 11:17 BP 96/64 06/13/23 11:17 Pulse Ox 89 L 06/13/23 09:30 FiO2 Intake & Output 06/12/23 06/13/23 06/13/23 18:59 06:59 18:59 Intake Total 1588.260 694.826 637.287 Output Total 2400 0 1999 Balance -811.740 694.826 -1362.713 Weight 116.2 kg 105.7 kg Intake: IV 530 0 .9 30 0 Vancomycin 1,500 mg In 500 Sodium Chloride 0.9% 500 ml 500 ml @ 167 mls/hr IVPB ONCE@2100 [facility] Rx#: [id number] Intake, IV Titration 438.260 104.826 87.287 Amount Norepinephrine 4 mg In 438.260 104.826 87.287 Sodium Chloride 0.9% 250 ml @ 0.03 MCG/KG/MIN 12. 63 mls/hr IV .Q20H7M [facility] Rx#:[id number] Oral 750 60 150 Hemodialysis 400 400 Output: Urine 0 0 0 Hemodialysis 2400 1999 Other: Voiding Method Bedside Commode Bedside Commode Bedside Commode Urinal Urinal Urinal Diaper Diaper Diaper - Exam GENERAL DESCRIPTION: An elderly male lying in bed in no distress RESPIRATORY SYSTEM: Unlabored breathing , clear to auscultation anteriorly HEART: S1 S2 regular rate and rhythm , ABDOMEN: Soft , mild distention and tenderness EXTREMITIES: No edema feet - Labs CBC & Chem 7: 06/14/23 03:37 06/14/23 03:37 Labs: Abnormal Lab Results - Last 24 Hours (Table) 06/12/23 06/12/23 06/13/23 Range/Units 16:32 19:35 03:19 RBC 2.82 L (4.30-5.90) m/uL Hgb 9.0 L (13.0-17.5) gm/dL Hct 27.7 L (39.0-53.0) % RDW 18.1 H (11.5-15.5) % Sodium (137-145) mmol/L Chloride (98-107) mmol/L Creatinine (0.66-1.25) mg/dL Glucose (74-99) mg/dL POC Glucose (mg/dL) 182 H 196 H (70-110) mg/dL Calcium (8.4-10.2) mg/dL 06/13/23 06/13/23 06/13/23 Range/Units 03:19 06:04 11:21 RBC (4.30-5.90) m/uL Hgb (13.0-17.5) gm/dL Hct (39.0-53.0) % RDW (11.5-15.5) % Sodium 128 L (137-145) mmol/L Chloride 95 L (98-107) mmol/L Creatinine 2.38 H (0.66-1.25) mg/dL Glucose 108 H (74-99) mg/dL POC Glucose (mg/dL) 116 H 172 H (70-110) mg/dL Calcium 8.1 L (8.4-10.2) mg/dL Microbiology - Last 24 Hours (Table) 06/11/23 16:43 Catheter Tip Culture - Preliminary Catheter Tip Assessment and Plan (1) Dialysis-associated peritonitis Current Visit: Yes Status: Acute Code(s): T85.71XA - INFECT/INFLM REACTION DUE TO PERITON DIALYSIS CATHETER, INIT SNOMED Code(s): 777228929 (2) Leukocytosis Current Visit: No Status: Acute Code(s): D72.829 - ELEVATED WHITE BLOOD CELL COUNT, UNSPECIFIED SNOMED Code(s): 235469398 Plan: 1patient presented to hospital with abdominal pain in this patient with a history of end-stage renal disease on peritoneal dialysis concerning for PD catheter associated peritonitis patient did have elevated white count no fever CT abdominal pelvis did show ascites but no other abnormality patient did have a peritoneal dialysis fluid culture positive for staph epi on 05/10/2023, could be likely the same pathogen 2-peritoneal peritoneal Fluid cell count cell count of 1775 culture are currently growing coagulase negative staph, blood culture had been negative 3patient has been transitioned to hemodialysis with the placement of right IJ dialysis catheter 4-the patient is afebrile, the patient white count has normalized, plan is to vancomycin pharmacy to dose and continue supportive care Dictation was produced using [employer] dictation software. please excuse any grammatical, word or spelling errors. Time with Patient: Less than 30
--- NOTE | 2023-06-14 13:25 | P.PN ---
Subjective Progress Note Date: 06/14/23 Principal diagnosis: Reason for follow-up is peritoneal dialysis associated peritonitis Patient is a 77-year-old male with a past medical history significant for atrial fibrillation diabetes mellitus hypertension hyperlipidemia end-stage renal disease currently on peritoneal dialysis presenting to the hospital for evaluation of abdominal pain, patient has been diagnosed with a PD catheter assisted peritonitis. Patient did have a right IJ dialysis catheter placed on 06/09/2023, the peritoneal dialysis catheter was removed on 06/11/2023 On today's evaluation that is 06/14/2023, the patient continues to be afebrile, the patient is breathing comfortably 3 L nasal cannula oxygen, the patient denies chest pain shortness of breath or cough , patient denies nausea/vomiting , patient denies abdominal pain and no diarrhea Patient did have a white count is 7.5, creatinine is 2.16, peritoneal fluid with a white count of 1775 cultures are growing coagulase negative staph, blood culture has been negative Objective - Vital Signs Vital signs: Vital Signs Temp 97.8 F 06/14/23 08:00 Pulse 80 06/14/23 11:15 Resp 21 06/14/23 11:15 BP 117/24 06/14/23 11:15 Pulse Ox 94 L 06/14/23 11:15 FiO2 Intake & Output 06/13/23 06/14/23 06/14/23 18:59 06:59 18:59 Intake Total 748.849 353.369 647.012 Output Total 2200 0 0 Balance -1451.151 353.369 647.012 Weight 105.9 kg Intake: IV 0 0 .9 0 0 Intake, IV Titration 198.849 273.369 47.012 Amount Norepinephrine 4 mg In 198.849 273.369 47.012 Sodium Chloride 0.9% 250 ml @ 0.03 MCG/KG/MIN 12. 63 mls/hr IV .Q20H7M COUNTS INCLUDE 234 BEDS AT THE [facility] Rx#:[id number] Oral 150 80 600 Hemodialysis 400 Output: Urine 200 0 0 Hemodialysis 2000 Other: Voiding Method Bedside Commode Bedside Commode Bedside Commode Urinal Urinal Urinal Diaper Diaper # Voids 1 - Exam GENERAL DESCRIPTION: An elderly male lying in bed in no distress RESPIRATORY SYSTEM: Unlabored breathing , clear to auscultation anteriorly HEART: S1 S2 regular rate and rhythm , ABDOMEN: Soft , mild distention and tenderness EXTREMITIES: No edema feet - Labs CBC & Chem 7: 06/14/23 03:37 06/14/23 03:37 Labs: Abnormal Lab Results - Last 24 Hours (Table) 06/13/23 06/13/23 06/14/23 Range/Units 17:16 20:46 03:37 RBC (4.30-5.90) m/uL Hgb (13.0-17.5) gm/dL Hct (39.0-53.0) % RDW (11.5-15.5) % Sodium 129 L (137-145) mmol/L Chloride 93 L (98-107) mmol/L BUN 21 H (9-20) mg/dL Creatinine 2.16 H (0.66-1.25) mg/dL Glucose 120 H (74-99) mg/dL POC Glucose (mg/dL) 196 H 207 H (70-110) mg/dL Calcium 8.0 L (8.4-10.2) mg/dL 06/14/23 06/14/23 06/14/23 Range/Units 03:37 06:23 11:11 RBC 2.79 L (4.30-5.90) m/uL Hgb 8.8 L (13.0-17.5) gm/dL Hct 27.7 L (39.0-53.0) % RDW 18.3 H (11.5-15.5) % Sodium (137-145) mmol/L Chloride (98-107) mmol/L BUN (9-20) mg/dL Creatinine (0.66-1.25) mg/dL Glucose (74-99) mg/dL POC Glucose (mg/dL) 137 H 159 H (70-110) mg/dL Calcium (8.4-10.2) mg/dL Microbiology - Last 24 Hours (Table) 06/11/23 16:43 Catheter Tip Culture - Final Catheter Tip Assessment and Plan (1) Dialysis-associated peritonitis Current Visit: Yes Status: Acute Code(s): T85.71XA - INFECT/INFLM REACTION DUE TO PERITON DIALYSIS CATHETER, INIT SNOMED Code(s): 389885686 (2) Leukocytosis Current Visit: No Status: Acute Code(s): D72.829 - ELEVATED WHITE BLOOD CELL COUNT, UNSPECIFIED SNOMED Code(s): 324733834 Plan: 1patient presented to hospital with abdominal pain in this patient with a history of end-stage renal disease on peritoneal dialysis concerning for PD catheter associated peritonitis patient did have elevated white count no fever CT abdominal pelvis did show ascites but no other abnormality patient did have a peritoneal dialysis fluid culture positive for staph epi on 05/10/2023, could be likely the same pathogen 2-peritoneal peritoneal Fluid cell count cell count of 1775 culture are currently growing coagulase negative staph, blood culture had been negative 3patient has been transitioned to hemodialysis with the placement of right IJ dialysis catheter 4-the patient is afebrile, the patient white count has normalized 5- plan is to vancomycin pharmacy to dose which can be done through dialysis in the outpatient setting hence no need for PICC line Dictation was produced using [employer] dictation software. please excuse any grammatical, word or spelling errors. Time with Patient: Less than 30
[2023-06-14 16:20] LABS: Glucose,Whole Blood 197 mg/dL (70-110)
[2023-06-14 20:19] LABS: Glucose,Whole Blood 152 mg/dL (70-110)
[2023-06-14] MEDS: ACETAMINOPHEN TAB 500 MG TAB PO PRN (20:29)
[2023-06-15 05:45] LABS: Anisocytosis Slight; Basophils % (A) 0 %; Eosinophils # (A) 0.3 k/uL (0-0.7); Eosinophils % (A) 4 %; HCT 26.8 % (39.0-53.0); HGB 8.5 gm/dL (13.0-17.5); Hypochromasia Slight; Lymphocytes % (A) 24 %; MCH 31.2 pg (25.0-35.0); MCHC 31.6 g/dL (31.0-37.0); MCV 98.6 fL (80.0-100.0); Macrocytosis Slight; Mean Platelet Volume 8.2; Monocytes # (A) 0.4 k/uL (0-1.0); Monocytes % (A) 4 %; Neutrophils # (A) 5.7 k/uL (1.3-7.7); Neutrophils % (A) 66 %; Platelet Count 314 k/uL (150-450); Poikilocytosis Slight; RBC 2.72 m/uL (4.30-5.90); RDW 18.8 % (11.5-15.5); WBC 8.6 k/uL (3.8-10.6)
[2023-06-15 05:54] LABS: African American GFR (CKD) 19 (>60 ml/min/1.73 sqM); Anion Gap 8 mmol/L; Blood Urea Nitrogen 35 mg/dL (9-20); Carbon Dioxide 25 mmol/L (22-30); Chloride 94 mmol/L (98-107); Glucose 90 mg/dL (74-99); Magnesium 1.7 mg/dL (1.6-2.3); Non-African American GFR(CKD) 16 (>60 ml/min/1.73 sqM); Potassium 3.8 mmol/L (3.5-5.1); Sodium 127 mmol/L (137-145)
[2023-06-15 05:59] LABS: Vancomycin,Random 19.4 ug/mL
[2023-06-15 06:56] LABS: Glucose,Whole Blood 155 mg/dL (70-110)
[2023-06-15] MEDS: INSULIN ASPART (NovoLOG) 100 UNIT/ML VIAL SQ SCH ×4 (07:08→21:12)
[2023-06-15] MEDS: CALCIUM ACETATE 667 MG TAB PO SCH ×3 (07:08→17:27)
[2023-06-15] MEDS: AMIODARONE 200 MG TAB PO SCH (08:06)
[2023-06-15] MEDS: MIDODRINE 5 MG TAB PO SCH ×4 (08:06→21:11)
[2023-06-15] MEDS: PANTOPRAZOLE 40 MG/10 ML VIAL IVP SCH (08:07)
[2023-06-15] MEDS: SUCRALFATE 1 GM TAB PO SCH ×2 (08:07→21:11)
[2023-06-15] MEDS: FERROUS SULFATE 325 MG TAB PO SCH (08:07)
[2023-06-15] MEDS: ASPIRIN 81 MG PO SCH (08:07)
[2023-06-15] MEDS: DOCUSATE 100 MG CAP PO SCH ×2 (08:07→21:11)
[2023-06-15] MEDS: CHOLESTYRAMINE (WITH SUGAR) 4 GM PACKET PO SCH ×2 (08:07→17:19)
[2023-06-15] MEDS: HEPARIN SODIUM,PORCINE 5,000 UNIT/ML 1 ML VIAL SQ SCH ×2 (08:07→21:11)
[2023-06-15] MEDS: allopurinoL 300 MG TAB PO SCH (08:07)
--- NOTE | 2023-06-15 08:36 | P.PN ---
Subjective Progress Note Date: 06/15/23 Principal diagnosis: Permanent pacemaker The patient is a 77-year-old gentleman with a past medical history significant for permanent pacemaker and cardiomyopathy and history of atrial fibrillation. Patient currently not on anticoagulation as well as multiple comorbid conditions including renal failure and dialysis was admitted to the hospital with abdominal discomfort felt to be related to peritonitis. 06/11/2023 The patient was seen and evaluated this morning. He seems to be stable beside he is on a very small dose of norepinephrine we are in process of weaning him fr om. His knee pressure is about 60 mmHg and systolic pressure above 90 mmHg. He is asymptomatic at this point. He is in paced atrial rhythm. We are in process of weaning the patient from norepinephrine. For some reason the patient is not on any oral anticoagulation. From the cardiac standpoint of view, we will continue the current medical regimen. Continue weaning the patient from norepinephrine. And follow-up with the patient. The examination is remarkable for regular rhythm with a systolic murmur at the right and left upper sternal border and diminished breathing sounds bilaterally and mild bilateral lower extremities edema June 122022 The patient was seen and evaluated this morning. He remains on a small dose of norepinephrine at this point. Otherwise he underwent dialysis yesterday. Blood work looks within normal limits. The examination is remarkable for regular rhythm with distant heart sounds and diminished breathing sounds bilaterally and mild bilateral lower extremities edema 06/13/2023 The patient was seen this morning. He still on norepinephrine. Otherwise he is stable. He had hemodialysis with removal of 4.5 L. The examination is remarkable for diminished breathing sounds bilaterally with a systolic murmur at the right upper sternal border and distant heart sounds. June 142022 The patient was seen and evaluated this morning. He underwent dialysis yesterday and he is going to have another dialysis tomorrow on Sunday. Hemodynamically he still unstable and requiring small dose of norepinephrine at this point. He is on midodrine to support the blood pressure. We are in process of weaning him from norepinephrine. Otherwise he still have upper and lower extremities edema. The examination is remarkable for regular rhythm with distant heart sounds and diminished breathing sounds bilaterally and upper and lower extremities edema. The hemoglobin is a stable. 06/15/2020 The patient was seen and evaluated this morning. He is currently having dialysis with removal of 2 1/2 L. He is of norepinephrine so far and has been h emodynamically stable. He still have severe upper and lower extremities edema. Hemoglobin is stable. Assessment Heart failure, the patient seems to be euvolemic at this point Hypotension which has improved Cardiomyopathy with an ejection fraction between 30-35% History of atrial fibrillation Permanent pacemaker End-stage renal failure Plan Continue the current medical regimen The patient can be transferred out of the intensive care unit Follow-up with the patient Objective - Vital Signs Vital signs: Vital Signs Temp 97.6 F 06/14/23 20:00 Pulse 75 06/15/23 07:00 Resp 18 06/15/23 07:00 BP 110/32 06/15/23 07:00 Pulse Ox 97 06/15/23 08:19 FiO2 Intake & Output 06/14/23 06/15/23 06/15/23 18:59 06:59 18:59 Intake Total 661.747 Output Total 0 150 Balance 661.747 -150 Intake: Intake, IV Titration 61.747 Amount Norepinephrine 4 mg In 61.747 Sodium Chloride 0.9% 250 ml @ 0.03 MCG/KG/MIN 12. 63 mls/hr IV .Q20H7M [facility] Rx#:[id number] Oral 600 Output: Urine 0 150 Other: Voiding Method Bedside Commode Urinal Urinal # Voids 0 0 # Bowel Movements 1 - Labs CBC & Chem 7: 06/15/23 05:31 06/15/23 05:31 Labs: Abnormal Lab Results - Last 24 Hours (Table) 06/14/23 06/14/23 06/14/23 Range/Units 11:11 16:18 20:18 RBC (4.30-5.90) m/uL Hgb (13.0-17.5) gm/dL Hct (39.0-53.0) % RDW (11.5-15.5) % Sodium (137-145) mmol/L Chloride (98-107) mmol/L BUN (9-20) mg/dL Creatinine (0.66-1.25) mg/dL POC Glucose (mg/dL) 159 H 197 H 152 H (70-110) mg/dL Calcium (8.4-10.2) mg/dL 06/15/23 06/15/23 06/15/23 Range/Units 05:31 05:31 06:54 RBC 2.72 L (4.30-5.90) m/uL Hgb 8.5 L (13.0-17.5) gm/dL Hct 26.8 L (39.0-53.0) % RDW 18.8 H (11.5-15.5) % Sodium 127 L (137-145) mmol/L Chloride 94 L (98-107) mmol/L BUN 35 H (9-20) mg/dL Creatinine 3.47 H (0.66-1.25) mg/dL POC Glucose (mg/dL) 155 H (70-110) mg/dL Calcium 8.0 L (8.4-10.2) mg/dL Microbiology - Last 24 Hours (Table) 06/11/23 16:43 Catheter Tip Culture - Final Catheter Tip
--- NOTE | 2023-06-15 12:01 | P.PN ---
Subjective Progress Note Date: 06/15/23 Follow-up for ESRD. Seen during dialysis, tolerating well. Objective - Vital Signs Vital signs: Vital Signs Temp 97.6 F 06/14/23 20:00 Pulse 75 06/15/23 07:00 Resp 18 06/15/23 07:00 BP 110/32 06/15/23 07:00 Pulse Ox 97 06/15/23 08:19 FiO2 Intake & Output 06/14/23 06/15/23 06/15/23 18:59 06:59 18:59 Intake Total 661.747 Output Total 0 150 Balance 661.747 -150 Intake: Intake, IV Titration 61.747 Amount Norepinephrine 4 mg In 61.747 Sodium Chloride 0.9% 250 ml @ 0.03 MCG/KG/MIN 12. 63 mls/hr IV .Q20H7M [facility] Rx#:[id number] Oral 600 Output: Urine 0 150 Other: Voiding Method Bedside Commode Urinal Urinal # Voids 0 0 # Bowel Movements 1 - Exam No acute distress S1-S2 heard, right jugular permacath Decreased breath sounds Abdomen soft Edema - Labs CBC & Chem 7: 06/15/23 05:31 06/15/23 05:31 Labs: Abnormal Lab Results - Last 24 Hours (Table) 06/14/23 06/14/23 06/15/23 Range/Units 16:18 20:18 05:31 RBC (4.30-5.90) m/uL Hgb (13.0-17.5) gm/dL Hct (39.0-53.0) % RDW (11.5-15.5) % Sodium 127 L (137-145) mmol/L Chloride 94 L (98-107) mmol/L BUN 35 H (9-20) mg/dL Creatinine 3.47 H (0.66-1.25) mg/dL POC Glucose (mg/dL) 197 H 152 H (70-110) mg/dL Calcium 8.0 L (8.4-10.2) mg/dL 06/15/23 06/15/23 Range/Units 05:31 06:54 RBC 2.72 L (4.30-5.90) m/uL Hgb 8.5 L (13.0-17.5) gm/dL Hct 26.8 L (39.0-53.0) % RDW 18.8 H (11.5-15.5) % Sodium (137-145) mmol/L Chloride (98-107) mmol/L BUN (9-20) mg/dL Creatinine (0.66-1.25) mg/dL POC Glucose (mg/dL) 155 H (70-110) mg/dL Calcium (8.4-10.2) mg/dL Microbiology - Last 24 Hours (Table) 06/11/23 16:43 Catheter Tip Culture - Final Catheter Tip Assessment and Plan Assessment: #1 ESRD was on peritoneal dialysis. Currently hemodialysis #2 hypervolemic hyponatremia #3 secondary bacterial peritonitis secondary to peritoneal dialysis catheter. #4 CHF with systolic dysfunction EF of 40% #5 persistent A. fib #6 anemia with chronic kidney disease #7 metabolic bone disease #8 chronic hypotension Plan: #1 hemodialysis today with the goal of 2.5 L #2 continue with midodrine for hemodynamic support. #3 ICU care
--- NOTE | 2023-06-15 12:34 | P.PN ---
Subjective Progress Note Date: 06/15/23 This is a pleasant 77 years old male with past medical history of end-stage renal disease undergoing peritoneal dialysis, history of cardiomyopathy and heart block status post dual chamber pacemaker , diabetes mellitus, GERD, low blood pressure, hyperlipidemia, constipation history of atrial fibrillation, sleep apnea patient presents because of abdominal pain on the right side. He says that his pain about 10/10 and his been going on for the last 2 weeks but gets more worse recently over 1-2 days. He reports some loose stool and diarrhea, he had 1 loose bowel movement yesterday. He is not able to eat but no vomiting Currently denies chest pain or dyspnea. No urinary complaints. No headache. No weakness numbness. He is nonsmoker no alcohol or no illicit drugs. Blood pressure currently the low side 86/54. Sodium 126, creatinine 4.7, glucose 148, magnesium 1.1, liver enzymes not elevated. ProBNP is 10,000. Lipase 198. Chest x-ray: No acute process except for trace bilateral pleural effusion CT of the abdomen and pelvis: Abdominal and pelvic ascites with peritoneal dialysis catheter in place. Small hiatal hernia, diverticulosis without acute diverticulitis, no small bowel obstruction, no free intraperitoneal air 05/06/2023 Patient's abdominal pain is better, it looks relaxed. He tolerates diet well 25-100% Peritoneal fluid cultures pending I discussed the case with ID team, undergone a treatment him with intraperitoneal vancomycin as he has previous culture from staph hominis recently. 06/07/2023 Patient is more up in bed, more awake and stronger although not completely back to baseline Although he tolerated some his diet however he still saw recurrent because of his infection in the intraperitoneal cavity. Culture is growing A's-negative staph. Antibiotics was adjusted to IV vancomycin only Plan to switch his peritoneal dialysis to hemodialysis by placing permacath tomorrow 06/08/2023 Patient had little more abdominal pain last night, he uses only Tylenol and he thinks that caused too much for him before going to the, Tylenol No. 3. Patient tolerates diet to certain level. His leukocytosis is improving He remains on IV vancomycin and culture is growing coagulase-negative staph. Plan to change his peritoneal dialysis catheter and to hemodialysis catheter tomorrow. C. diff tests is requested for diarrhea although the suspicion is low 06/09/2023 Patient abdominal pain is improving Diarrhea stopped after adding Questran Patient pending hemodialysis catheter placement to switch his peritoneal dialysis until HD and remove the PD catheter 06/10/2023 Patient improving slowly and gradually His abdominal pain is much better/10 and will control with pain medication His diarrhea improved after adding Questran however he still have some loose stool today. Plan to obtain hemodialysis catheter today shows large peritoneal dialysis and to hemodialysis and discontinue with the peritoneal catheter. Peritoneal fluid culture is growing staph epidermidis and patient currently covered with IV vancomycin 06/11. Patient seen and examined. WBC 15, hemoglobin 9.8, platelet count 3:30, sodium 126, potassium 4.2, BUN 67, creatinine 6.37. Currently undergoing hemodialysis. Currently on Levophed 06/12. Patient seen and examined. Blood work done This morning showed WBC 9.6, hemoglobin 9.6, platelet count 326 sodium 127, potassium 3.6, BUN and 34, crea tinine 3.57. Patient was getting dialysis today. Left upper extremity swollen 06/13. Patient seen and examined. States he is doing better compared to yesterday, left upper extremity swelling has improved. 06/14. Patient seen and examined patient currently sitting upright in the bed, eating his meal. States breathing is improving a lot. Still having abdominal pain at the site of PD catheter. Continues to be on 4 L of oxygen. 06/15. Patient seen and examined. Lab work done this morning showed WBC 8.6, hemoglobin 8.5, sodium 127 potassium 3.8, BUN 35, creatinine 3.47. States he feels much better. Has been weaned off the Levophed REVIEW OF SYSTEMS: CONSTITUTIONAL: No fever, no malaise,. CARDIOVASCULAR: No chest pain, no palpitations, no syncope. PULMONARY: No shortness of breath, no cough, GASTROINTESTINAL: No diarrhea, no nausea, no vomiting NEUROLOGICAL: No headaches, no weakness, PHYSICAL EXAMINATION: GENERAL: The patient is alert and oriented x3, not in any acute distress. Chronically ill-looking HEENT: Pupils are round and equally reacting to light. EOMI. No scleral icterus. No conjunctival pallor. Normocephalic, atraumatic. No pharyngeal erythema. No thyromegaly. CARDIOVASCULAR: S1 and S2 present. No murmurs, rubs, or gallops. PULMONARY: Diminished breath sounds at the bases bilaterally, no wheezing or crackles. ABDOMEN: Soft, nontender, nondistended, normoactive bowel sounds. No palpable organomegaly. MUSCULOSKELETAL: No joint swelling or deformity. EXTREMITIES: No cyanosis, clubbing, 1+ pitting edema lower extremities. Right and Left upper extremity swollen NEUROLOGICAL: Gross neurological examination did not reveal any focal deficits. SKIN: No rashes. Assessment and plan Acute peritonitis, sepsis, suspect septic shock End-stage renal disease, patient has been transitioned to hemodialysis from [facility] toneal dialysis Chronic systolic congestive heart failure with ejection fraction of 35% Hypotension secondary to sepsis and septic shock requiring norepinephrine he is also on midodrine Leukocytosis Cardiomyopathy and LV dysfunction Chronic persistent atrial fibrillation History of end-stage renal disease Severe pulmonary hypertension Type 2 diabetes with diabetic nephropathy History of sick sinus syndrome requiring permanent pacemaker implantation Plan: Monitor vital signs Monitor CBC Monitor CMP Continue telemetry monitoring Encourage use of incentive spirometer Continue amiodarone Continue midodrine Continue vancomycin pharmacy dose Nephrology following, permacath placed, peritoneal dialysis catheter removed by surgery on 06/11. Continue hemodialysis per nephrology ID following Critical care following, will transfer out of ICU Labs and medication were reviewed.. Continue same treatment. Continue with symptomatic treatment. Resume home medication. Monitor labs and vitals. DVT and GI prophylaxis. Further recommendations as per clinical course of the patient Dictation was produced using [employer] dictation software. please excuse any grammatical, word or spelling errors. Objective - Vital Signs Vital signs: Vital Signs Temp 97.6 F 06/14/23 20:00 Pulse 75 06/15/23 07:00 Resp 18 06/15/23 07:00 BP 110/32 06/15/23 07:00 Pulse Ox 97 06/15/23 08:19 FiO2 Intake & Output 06/14/23 06/15/23 06/15/23 18:59 06:59 18:59 Intake Total 661.747 Output Total 0 150 Balance 661.747 -150 Intake: Intake, IV Titration 61.747 Amount Norepinephrine 4 mg In 61.747 Sodium Chloride 0.9% 250 ml @ 0.03 MCG/KG/MIN 12. 63 mls/hr IV .Q20H7M [facility] Rx#:[id number] Oral 600 Output: Urine 0 150 Other: Voiding Method Bedside Commode Urinal Urinal # Voids 0 0 # Bowel Movements 1 - Labs CBC & Chem 7: 06/15/23 05:31 06/15/23 05:31 Labs: Abnormal Lab Results - Last 24 Hours (Table) 06/14/23 06/14/23 06/15/23 Range/Units 16:18 20:18 05:31 RBC (4.30-5.90) m/uL Hgb (13.0-17.5) gm/dL Hct (39.0-53.0) % RDW (11.5-15.5) % Sodium 127 L (137-145) mmol/L Chloride 94 L (98-107) mmol/L BUN 35 H (9-20) mg/dL Creatinine 3.47 H (0.66-1.25) mg/dL POC Glucose (mg/dL) 197 H 152 H (70-110) mg/dL Calcium 8.0 L (8.4-10.2) mg/dL 06/15/23 06/15/23 Range/Units 05:31 06:54 RBC 2.72 L (4.30-5.90) m/uL Hgb 8.5 L (13.0-17.5) gm/dL Hct 26.8 L (39.0-53.0) % RDW 18.8 H (11.5-15.5) % Sodium (137-145) mmol/L Chloride (98-107) mmol/L BUN (9-20) mg/dL Creatinine (0.66-1.25) mg/dL POC Glucose (mg/dL) 155 H (70-110) mg/dL Calcium (8.4-10.2) mg/dL Microbiology - Last 24 Hours (Table) 06/11/23 16:43 Catheter Tip Culture - Final Catheter Tip
--- NOTE | 2023-06-15 13:32 | P.PN ---
Subjective Progress Note Date: 06/15/23 Principal diagnosis: Acute peritonitis, septic shock, abdominal sepsis This is a 77-year-old white male with history of multiple medical problems including end-stage renal disease, on peritoneal dialysis, cardiomyopathy and LV dysfunction history of dual-chamber pacemaker, history of diabetes, benign essential hypertension, dyslipidemia, chronic atrial fibrillation, and obstr uctive sleep apnea syndrome. Patient was admitted back on 06/04/2023, presented mostly at the time with abdominal pain, and weakness. he was discovered to have peritonitis related to his peritoneal dialysis. Patient had positive peritoneal fluid for staphylococcal epidermidis, and he was seen by infectious disease on consultation, patient has been receiving vancomycin. Since admission the seen by many consultants including nephrology, internal medicine, cardiology, infectious disease, and vascular surgery for placement of a hemodialysis catheter. Yesterday the patient developed hypotension not responding to fluid boluses, and he was transferred to the ICU and he had to be placed on norep inephrine. He is presently on norepinephrine at 0.13 mcg/kg/m still receiving vancomycin. Patient is on 3 L nasal cannula and at night the patient is on CPAP. His peritoneal dialysis catheter remains in place and we have requested surgery to evaluate and remove. Patient is supposed to have his hemodialysis today. In the meantime he continues to have treatment for his acute peritonitis. Blood cultures have been negative so far. Peritoneal fluid from the abdomen was positive for Staphylococcus epidermidis Patient was reevaluated today on 06/12/23, remains in the ICU, remains on 5 L nasal cannula, remains on norepinephrine at 0.09 mcg/kg/m, patient remains on antibiotics for his peritonitis and obviously the patient needs a PICC line. Patient is on hemodialysis, he does have a dialysis catheter in his right IJ area, and I'm recommending a PICC line today since the patient may need to be on long-term antibiotics, WBC count today is 9.6 hemoglobin 9.6 sodium is 127 potassium 3.6 BUN 34 creatinine 3.57. Patient remains on vancomycin for his positive staph epidermidis in the peritoneal fluid. And his abdominal dialysis catheter has been removed Reevaluated today on 06/13/23, patient remains in the ICU, remains on small dose of norepinephrine at 0.05 mcg/kg/m, patient is now receiving hemodialysis, remains on antibiotics/vancomycin, continues to have minimal right lower qu adrant pain. Overall the patient is doing fairly well, and he had his peritoneal dialysis catheter removed a few days ago, and now he has a right IJ's hemodialysis catheter instead. Blood cultures have been negative. WBC count is 7.9 hemoglobin 9 sodium 128 potassium 3.7 ER and is 20 creatinine 2.38 bicarb is 25 chest x-ray this morning showed mostly left lower lobe atelectasis and possibly a small left pleural effusion. Patient was reevaluated today on 06/14/23, remains in the ICU, remains on 4 L nasal cannula, he is on a lower dose of norepinephrine at 0.03 mcg/kg/m still receiving antibiotics for his acute peritonitis and sepsis and septic shock. Remains intermittently on hemodialysis. Patient denies any specific complaints, his CBC is relatively normal hemoglobin is 8.8 basic metabolic profile is normal BUN is 21 creatinine 2.16 sodium is 129. Chest x-ray from yesterday showed cardiomegaly and mild pulmonary vascular congestion with small pleural effusions and atelectasis. Patient was reevaluated today on 06/11/20 remains in the ICU, he is on 3 L nasal cannula, not in distress, patient is receiving hemodialysis during my evaluation. He is now off norepinephrine, blood pressure remains stable, WBC count is 8.6 hemoglobin is 8.5 sodium remains low at 127 BUN is 35 creatinine 3.47 bicarb is 24. Patient remains on vancomycin, and that being addressed by infectious disease on the case. Objective - Vital Signs Vital signs: Vital Signs Temp 97.6 F 06/14/23 20:00 Pulse 75 06/15/23 07:00 Resp 18 06/15/23 07:00 BP 110/32 06/15/23 07:00 Pulse Ox 97 06/15/23 08:19 FiO2 Intake & Output 06/14/23 06/15/23 06/15/23 18:59 06:59 18:59 Intake Total 661.747 Output Total 0 150 Balance 661.747 -150 Intake: Intake, IV Titration 61.747 Amount Norepinephrine 4 mg In 61.747 Sodium Chloride 0.9% 250 ml @ 0.03 MCG/KG/MIN 12. 63 mls/hr IV .Q20H7M [facility] Rx#:[id number] Oral 600 Output: Urine 0 150 Other: Voiding Method Bedside Commode Urinal Urinal # Voids 0 0 # Bowel Movements 1 - Exam Physical Exam: Revealed 77-year-old white male on 3 L nasal cannula, in no distress. Head: Atraumatic, normocephalic. HEENT:[Neck is supple.] [No neck masses.] [No thyromegaly.] [No JVD.] Chest: [Clear throughout, no crackles, no rhonchi, no wheezes.] Cardiac Exam: [Normal S1 and S2, no S3 gallop, no murmur.] Abdomen: Obese, tenderness noted in the right lower quadrant area at the site of the peritoneal dialysis catheter. No evidence of any purulent discharge. Extremities: [No clubbing, no edema, no cyanosis Neurological Exam: [No focal neurologic deficit.] Alert and oriented 3. Psychiatric: Normal mood affect and normal mental status examination. Skin: No rashes. Psychiatric: Normal mood affect and normal mental status examination. R - Labs CBC & Chem 7: 06/15/23 05:31 06/15/23 05:31 Labs: Abnormal Lab Results - Last 24 Hours (Table) 06/14/23 06/14/23 06/15/23 Range/Units 16:18 20:18 05:31 RBC (4.30-5.90) m/uL Hgb (13.0-17.5) gm/dL Hct (39.0-53.0) % RDW (11.5-15.5) % Sodium 127 L (137-145) mmol/L Chloride 94 L (98-107) mmol/L BUN 35 H (9-20) mg/dL Creatinine 3.47 H (0.66-1.25) mg/dL POC Glucose (mg/dL) 197 H 152 H (70-110) mg/dL Calcium 8.0 L (8.4-10.2) mg/dL 06/15/23 06/15/23 Range/Units 05:31 06:54 RBC 2.72 L (4.30-5.90) m/uL Hgb 8.5 L (13.0-17.5) gm/dL Hct 26.8 L (39.0-53.0) % RDW 18.8 H (11.5-15.5) % Sodium (137-145) mmol/L Chloride (98-107) mmol/L BUN (9-20) mg/dL Creatinine (0.66-1.25) mg/dL POC Glucose (mg/dL) 155 H (70-110) mg/dL Calcium (8.4-10.2) mg/dL Assessment and Plan Assessment: Impression: Acute peritonitis, sepsis, and septic shock required norepinephrine, however today the patient is off norepinephrine. End-stage renal disease, on hemodialysis, he was previously on peritoneal dialysis however this was changed to hemodialysis. Chronic systolic congestive heart failure with ejection fraction of 35% Hypotension secondary to sepsis and septic shock requiring norepinephrine he is also on midodrine , will check cortisol level and decide whether the patient will need to be on Solu-Cortef Leukocytosis secondary to above Cardiomyopathy and LV dysfunction Chronic persistent atrial fibrillation History of end-stage renal disease Severe pulmonary hypertension Type 2 diabetes with diabetic nephropathy History of sick sinus syndrome requiring permanent pacemaker implantation Recommendation: Transfer patient to a cardiac floor with telemetry today. If a bed is available. Continue antibiotics /vancomycin Continue hemodialysis Continue GI and DVT prophylaxis Continue amiodarone Continue Florinef and midodrine We continue to follow Time with Patient: Less than 30
--- NOTE | 2023-06-15 15:03 | P.PN ---
Subjective Progress Note Date: 06/15/23 Principal diagnosis: Reason for follow-up is peritoneal dialysis associated peritonitis Patient is a 77-year-old male with a past medical history significant for atrial fibrillation diabetes mellitus hypertension hyperlipidemia end-stage renal disease currently on peritoneal dialysis presenting to the hospital for evaluation of abdominal pain, patient has been diagnosed with a PD catheter assisted peritonitis. Patient did have a right IJ dialysis catheter placed on 06/09/2023, the peritoneal dialysis catheter was removed on 06/11/2023 On today's evaluation that is 06/15/2023, the patient denies any fever or any chills, the patient is breathing comfortably on 3 L nasal cannula supplemental oxygen, patient denies chest pain shortness of breath and no significant cough or sputum production, patient denies Abdominal pain, no nausea/vomiting and denies having any diarrhea, patient is off the pressor support Patient did have a white count is 8.6, creatinine is 3.47, peritoneal fluid with a white count of 1775 cultures are growing coagulase negative staph, blood culture has been negative Objective - Vital Signs Vital signs: Vital Signs Temp 97.6 F 06/14/23 20:00 Pulse 75 06/15/23 07:00 Resp 18 06/15/23 07:00 BP 110/32 06/15/23 07:00 Pulse Ox 97 06/15/23 08:19 FiO2 Intake & Output 06/14/23 06/15/23 06/15/23 18:59 06:59 18:59 Intake Total 661.747 Output Total 0 150 Balance 661.747 -150 Intake: Intake, IV Titration 61.747 Amount Norepinephrine 4 mg In 61.747 Sodium Chloride 0.9% 250 ml @ 0.03 MCG/KG/MIN 12. 63 mls/hr IV .Q20H7M [facility] Rx#:[id number] Oral 600 Output: Urine 0 150 Other: Voiding Method Bedside Commode Urinal Urinal # Voids 0 0 # Bowel Movements 1 - Exam GENERAL DESCRIPTION: An elderly male lying in bed in no distress RESPIRATORY SYSTEM: Unlabored breathing , clear to auscultation anteriorly HEART: S1 S2 regular rate and rhythm , ABDOMEN: Soft , mild distention and tenderness EXTREMITIES: No edema feet - Labs CBC & Chem 7: 06/15/23 05:31 06/15/23 05:31 Labs: Abnormal Lab Results - Last 24 Hours (Table) 06/14/23 06/14/23 06/15/23 Range/Units 16:18 20:18 05:31 RBC (4.30-5.90) m/uL Hgb (13.0-17.5) gm/dL Hct (39.0-53.0) % RDW (11.5-15.5) % Sodium 127 L (137-145) mmol/L Chloride 94 L (98-107) mmol/L BUN 35 H (9-20) mg/dL Creatinine 3.47 H (0.66-1.25) mg/dL POC Glucose (mg/dL) 197 H 152 H (70-110) mg/dL Calcium 8.0 L (8.4-10.2) mg/dL 06/15/23 06/15/23 Range/Units 05:31 06:54 RBC 2.72 L (4.30-5.90) m/uL Hgb 8.5 L (13.0-17.5) gm/dL Hct 26.8 L (39.0-53.0) % RDW 18.8 H (11.5-15.5) % Sodium (137-145) mmol/L Chloride (98-107) mmol/L BUN (9-20) mg/dL Creatinine (0.66-1.25) mg/dL POC Glucose (mg/dL) 155 H (70-110) mg/dL Calcium (8.4-10.2) mg/dL Microbiology - Last 24 Hours (Table) 06/11/23 16:43 Catheter Tip Culture - Final Catheter Tip Assessment and Plan (1) Dialysis-associated peritonitis Current Visit: Yes Status: Acute Code(s): T85.71XA - INFECT/INFLM REACTION DUE TO PERITON DIALYSIS CATHETER, INIT SNOMED Code(s): 877354735 (2) Leukocytosis Current Visit: No Status: Acute Code(s): D72.829 - ELEVATED WHITE BLOOD CELL COUNT, UNSPECIFIED SNOMED Code(s): 830481987 Plan: 1patient presented to hospital with abdominal pain in this patient with a history of end-stage renal disease on peritoneal dialysis concerning for PD cat heter associated peritonitis patient did have elevated white count no fever CT abdominal pelvis did show ascites but no other abnormality patient did have a peritoneal dialysis fluid culture positive for staph epi on 05/10/2023, could be likely the same pathogen 2-peritoneal peritoneal Fluid cell count cell count of 1775 culture are currently growing coagulase negative staph, blood culture had been negative 3patient has been transitioned to hemodialysis with the placement of right IJ dialysis catheter and the patient had been tolerating his dialysis 4-the patient to continue with vancomycin pharmacy to dose which can be done through dialysis in the outpatient setting hence no need for PICC line Questions concerned were answered Dictation was produced using [employer] dictation software. please excuse any grammatical, word or spelling errors. Time with Patient: Less than 30
[2023-06-15 17:05] LABS: Glucose,Whole Blood 238 mg/dL (70-110)
[2023-06-15] MEDS ORDERED: VANCOMYCIN 1,500 MG in SODIUM CHLORIDE 0.9% 500 ML 500 ML IVPB ONE (20:00)
[2023-06-15 20:06] LABS: Glucose,Whole Blood 153 mg/dL (70-110)
[2023-06-15 21:04] LABS: Glucose,Whole Blood 168 mg/dL (70-110)
[2023-06-16 06:08] LABS: Glucose,Whole Blood 117 mg/dL (70-110)
[2023-06-16] MEDS: INSULIN ASPART (NovoLOG) 100 UNIT/ML VIAL SQ SCH ×4 (06:11→20:49)
[2023-06-16] MEDS: CALCIUM ACETATE 667 MG TAB PO SCH ×3 (06:23→17:28)
[2023-06-16] MEDS: allopurinoL 300 MG TAB PO SCH (08:47)
[2023-06-16] MEDS: AMIODARONE 200 MG TAB PO SCH (08:47)
[2023-06-16] MEDS: SUCRALFATE 1 GM TAB PO SCH ×2 (08:47→20:48)
[2023-06-16] MEDS: FERROUS SULFATE 325 MG TAB PO SCH (08:47)
[2023-06-16] MEDS: MIDODRINE 5 MG TAB PO SCH ×4 (08:47→20:48)
[2023-06-16] MEDS: ASPIRIN 81 MG PO SCH (08:47)
[2023-06-16] MEDS: DOCUSATE 100 MG CAP PO SCH ×2 (08:47→20:49)
[2023-06-16] MEDS: HEPARIN SODIUM,PORCINE 5,000 UNIT/ML 1 ML VIAL SQ SCH ×2 (08:48→20:49)
[2023-06-16] MEDS: PANTOPRAZOLE 40 MG/10 ML VIAL IVP SCH (08:48)
[2023-06-16 09:24] LABS: Anisocytosis Slight; Basophils % (A) 0 %; Eosinophils # (A) 0.2 k/uL (0-0.7); Eosinophils % (A) 3 %; HCT 27.3 % (39.0-53.0); HGB 8.5 gm/dL (13.0-17.5); Hypochromasia Slight; Lymphocytes # (A) 1.6 k/uL (1.0-4.8); Lymphocytes % (A) 18 %; MCH 31.1 pg (25.0-35.0); MCHC 31.2 g/dL (31.0-37.0); MCV 99.7 fL (80.0-100.0); Macrocytosis Moderate; Mean Platelet Volume 7.7; Monocytes # (A) 0.5 k/uL (0-1.0); Monocytes % (A) 6 %; Neutrophils # (A) 6.5 k/uL (1.3-7.7); Neutrophils % (A) 71 %; Platelet Count 307 k/uL (150-450); Poikilocytosis Slight; RBC 2.74 m/uL (4.30-5.90); WBC 9.1 k/uL (3.8-10.6)
[2023-06-16 09:51] LABS: African American GFR (CKD) 26 (>60 ml/min/1.73 sqM); Anion Gap 9 mmol/L; Blood Urea Nitrogen 29 mg/dL (9-20); Calcium 7.9 mg/dL (8.4-10.2); Carbon Dioxide 26 mmol/L (22-30); Chloride 96 mmol/L (98-107); Glucose 145 mg/dL (74-99); Magnesium 1.6 mg/dL (1.6-2.3); Non-African American GFR(CKD) 22 (>60 ml/min/1.73 sqM); Potassium 3.4 mmol/L (3.5-5.1); Sodium 131 mmol/L (137-145)
[2023-06-16] MEDS: CHOLESTYRAMINE (WITH SUGAR) 4 GM PACKET PO SCH ×2 (11:20→17:26)
[2023-06-16 11:47] LABS: Glucose,Whole Blood 167 mg/dL (70-110)
--- NOTE | 2023-06-16 13:11 | P.PN ---
Subjective Progress Note Date: 06/16/23 This is a pleasant 77 years old male with past medical history of end-stage renal disease undergoing peritoneal dialysis, history of cardiomyopathy and heart block status post dual chamber pacemaker , diabetes mellitus, GERD, low blood pressure, hyperlipidemia, constipation history of atrial fibrillation, sleep apnea patient presents because of abdominal pain on the right side. He says that his pain about 10/10 and his been going on for the last 2 weeks but gets more worse recently over 1-2 days. He reports some loose stool and diarrhea, he had 1 loose bowel movement yesterday. He is not able to eat but no vomiting Currently denies chest pain or dyspnea. No urinary complaints. No headache. No weakness numbness. He is nonsmoker no alcohol or no illicit drugs. Blood pressure currently the low side 86/54. Sodium 126, creatinine 4.7, glucose 148, magnesium 1.1, liver enzymes not elevated. ProBNP is 10,000. Lipase 198. Chest x-ray: No acute process except for trace bilateral pleural effusion CT of the abdomen and pelvis: Abdominal and pelvic ascites with peritoneal dialysis catheter in place. Small hiatal hernia, diverticulosis without acute diverticulitis, no small bowel obstruction, no free intraperitoneal air 05/06/2023 Patient's abdominal pain is better, it looks relaxed. He tolerates diet well 25-100% Peritoneal fluid cultures pending I discussed the case with ID team, undergone a treatment him with intraperitoneal vancomycin as he has previous culture from staph hominis recently. 06/07/2023 Patient is more up in bed, more awake and stronger although not completely back to baseline Although he tolerated some his diet however he still saw recurrent because of his infection in the intraperitoneal cavity. Culture is growing A's-negative staph. Antibiotics was adjusted to IV vancomycin only Plan to switch his peritoneal dialysis to hemodialysis by placing permacath tomorrow 06/08/2023 Patient had little more abdominal pain last night, he uses only Tylenol and he thinks that caused too much for him before going to the, Tylenol No. 3. Patient tolerates diet to certain level. His leukocytosis is improving He remains on IV vancomycin and culture is growing coagulase-negative staph. Plan to change his peritoneal dialysis catheter and to hemodialysis catheter tomorrow. C. diff tests is requested for diarrhea although the suspicion is low 06/09/2023 Patient abdominal pain is improving Diarrhea stopped after adding Questran Patient pending hemodialysis catheter placement to switch his peritoneal dialysis until HD and remove the PD catheter 06/10/2023 Patient improving slowly and gradually His abdominal pain is much better/10 and will control with pain medication His diarrhea improved after adding Questran however he still have some loose stool today. Plan to obtain hemodialysis catheter today shows large peritoneal dialysis and to hemodialysis and discontinue with the peritoneal catheter. Peritoneal fluid culture is growing staph epidermidis and patient currently covered with IV vancomycin 06/11. Patient seen and examined. WBC 15, hemoglobin 9.8, platelet count 3:30, sodium 126, potassium 4.2, BUN 67, creatinine 6.37. Currently undergoing hemodialysis. Currently on Levophed 06/12. Patient seen and examined. Blood work done This morning showed WBC 9.6, hemoglobin 9.6, platelet count 326 sodium 127, potassium 3.6, BUN and 34, crea tinine 3.57. Patient was getting dialysis today. Left upper extremity swollen 06/13. Patient seen and examined. States he is doing better compared to yesterday, left upper extremity swelling has improved. 06/14. Patient seen and examined patient currently sitting upright in the bed, eating his meal. States breathing is improving a lot. Still having abdominal pain at the site of PD catheter. Continues to be on 4 L of oxygen. 06/15. Patient seen and examined. Lab work done this morning showed WBC 8.6, hemoglobin 8.5, sodium 127 potassium 3.8, BUN 35, creatinine 3.47. States he feels much better. Has been weaned off the Levophed 06/16. Patient seen and examined. Patient has been transferred out of ICU, currently in stepdown floor. Patient on 3 L of oxygen. Blood work done this morning showed WBC 9.1, hemoglobin 8.5, sodium 134, potassium 3.4, BUN 29, creatinine 2.67 REVIEW OF SYSTEMS: CONSTITUTIONAL: No fever, no malaise,. CARDIOVASCULAR: No chest pain, no palpitations, no syncope. PULMONARY: No shortness of breath, no cough, GASTROINTESTINAL: No diarrhea, no nausea, no vomiting NEUROLOGICAL: No headaches, no weakness, PHYSICAL EXAMINATION: GENERAL: The patient is alert and oriented x3, not in any acute distress. Chronically ill-looking HEENT: Pupils are round and equally reacting to light. EOMI. No scleral icterus. No conjunctival pallor. Normocephalic, atraumatic. No pharyngeal erythema. No thyromegaly. CARDIOVASCULAR: S1 and S2 present. No murmurs, rubs, or gallops. PULMONARY: Diminished breath sounds at the bases bilaterally, no wheezing or crackles. ABDOMEN: Soft, nontender, nondistended, normoactive bowel sounds. No palpable organomegaly. MUSCULOSKELETAL: No joint swelling or deformity. EXTREMITIES: No cyanosis, clubbing, 1+ pitting edema lower extremities. Right and Left upper extremity swollen NEUROLOGICAL: Gross neurological examination did not reveal any focal deficits. SKIN: No rashes. Assessment and plan Acute peritonitis, sepsis, suspect septic shock End-stage renal disease, patient has been transitioned to hemodialysis from peritoneal dialysis Chronic systolic congestive heart failure with ejection fraction of 35% Hypotension secondary to sepsis and septic shock requiring norepinephrine he is also on midodrine Leukocytosis Cardiomyopathy and LV dysfunction Chronic persistent atrial fibrillation History of end-stage renal disease Severe pulmonary hypertension Type 2 diabetes with diabetic nephropathy History of sick sinus syndrome requiring permanent pacemaker implantation Plan: Monitor vital signs Monitor CBC Monitor CMP Continue telemetry monitoring Encourage use of incentive spirometer Continue amiodarone Continue midodrine Continue vancomycin pharmacy dose with dialysis Nephrology following, permacath placed, peritoneal dialysis catheter removed by surgery on 06/11. Continue hemodialysis per nephrology ID following Pulmonology following Labs and medication were reviewed.. Continue same treatment. Continue with symptomatic treatment. Resume home medication. Monitor labs and vitals. DVT and GI prophylaxis. Further recommendations as per clinical course of the patient Dictation was produced using [employer] dictation software. please excuse any grammatical, word or spelling errors. Objective - Vital Signs Vital signs: Vital Signs Temp 98.6 F 06/16/23 08:00 Pulse 89 06/16/23 08:00 Resp 16 06/16/23 08:00 BP 96/61 06/16/23 08:00 Pulse Ox 94 L 06/16/23 08:00 FiO2 45 06/16/23 00:00 Intake & Output 06/15/23 06/16/23 06/16/23 18:59 06:59 18:59 Intake Total 800 Output Total 0 0 Balance 800 0 Weight 113 kg 117 kg Intake: Oral 400 Tube Feeding 400 Output: Urine 0 0 Other: Voiding Method Urinal Urinal # Voids 1 # Bowel Movements 1 - Labs CBC & Chem 7: 06/16/23 08:48 06/16/23 08:48 Labs: Abnormal Lab Results - Last 24 Hours (Table) 06/15/23 06/15/23 06/15/23 Range/Units 17:02 20:05 21:03 RBC (4.30-5.90) m/uL Hgb (13.0-17.5) gm/dL Hct (39.0-53.0) % RDW (11.5-15.5) % Sodium (137-145) mmol/L Potassium (3.5-5.1) mmol/L Chloride (98-107) mmol/L BUN (9-20) mg/dL Creatinine (0.66-1.25) mg/dL Glucose (74-99) mg/dL POC Glucose (mg/dL) 238 H 153 H 168 H (70-110) mg/dL Calcium (8.4-10.2) mg/dL 06/16/23 06/16/23 06/16/23 Range/Units 06:07 08:48 08:48 RBC 2.74 L (4.30-5.90) m/uL Hgb 8.5 L (13.0-17.5) gm/dL Hct 27.3 L (39.0-53.0) % RDW 19.0 H (11.5-15.5) % Sodium 131 L (137-145) mmol/L Potassium 3.4 L (3.5-5.1) mmol/L Chloride 96 L (98-107) mmol/L BUN 29 H (9-20) mg/dL Creatinine 2.67 H (0.66-1.25) mg/dL Glucose 145 H (74-99) mg/dL POC Glucose (mg/dL) 117 H (70-110) mg/dL Calcium 7.9 L (8.4-10.2) mg/dL
[2023-06-16] MEDS ORDERED: POTASSIUM CHLORIDE ER 10 MEQ TAB.ER.PRT PO STA (13:19)
--- NOTE | 2023-06-16 13:19 | P.PN ---
Subjective Progress Note Date: 06/16/23 Follow-up for ESRD. Had dialysis yesterday, tolerated well. Objective - Vital Signs Vital signs: Vital Signs Temp 98.6 F 06/16/23 08:00 Pulse 89 06/16/23 08:00 Resp 16 06/16/23 08:00 BP 96/61 06/16/23 08:00 Pulse Ox 94 L 06/16/23 08:00 FiO2 45 06/16/23 00:00 Intake & Output 06/15/23 06/16/23 06/16/23 18:59 06:59 18:59 Intake Total 800 360 Output Total 0 0 Balance 800 0 360 Weight 113 kg 117 kg Intake: Oral 400 360 Tube Feeding 400 Output: Urine 0 0 Other: Voiding Method Urinal Urinal # Voids 1 # Bowel Movements 1 - Exam No acute distress S1-S2 heard, right jugular permacath Decreased breath sounds Abdomen soft Edema - Labs CBC & Chem 7: 06/16/23 08:48 06/16/23 08:48 Labs: Abnormal Lab Results - Last 24 Hours (Table) 06/15/23 06/15/23 06/15/23 Range/Units 17:02 20:05 21:03 RBC (4.30-5.90) m/uL Hgb (13.0-17.5) gm/dL Hct (39.0-53.0) % RDW (11.5-15.5) % Sodium (137-145) mmol/L Potassium (3.5-5.1) mmol/L Chloride (98-107) mmol/L BUN (9-20) mg/dL Creatinine (0.66-1.25) mg/dL Glucose (74-99) mg/dL POC Glucose (mg/dL) 238 H 153 H 168 H (70-110) mg/dL Calcium (8.4-10.2) mg/dL 06/16/23 06/16/23 06/16/23 Range/Units 06:07 08:48 08:48 RBC 2.74 L (4.30-5.90) m/uL Hgb 8.5 L (13.0-17.5) gm/dL Hct 27.3 L (39.0-53.0) % RDW 19.0 H (11.5-15.5) % Sodium 131 L (137-145) mmol/L Potassium 3.4 L (3.5-5.1) mmol/L Chloride 96 L (98-107) mmol/L BUN 29 H (9-20) mg/dL Creatinine 2.67 H (0.66-1.25) mg/dL Glucose 145 H (74-99) mg/dL POC Glucose (mg/dL) 117 H (70-110) mg/dL Calcium 7.9 L (8.4-10.2) mg/dL 06/16/23 Range/Units 11:46 RBC (4.30-5.90) m/uL Hgb (13.0-17.5) gm/dL Hct (39.0-53.0) % RDW (11.5-15.5) % Sodium (137-145) mmol/L Potassium (3.5-5.1) mmol/L Chloride (98-107) mmol/L BUN (9-20) mg/dL Creatinine (0.66-1.25) mg/dL Glucose (74-99) mg/dL POC Glucose (mg/dL) 167 H (70-110) mg/dL Calcium (8.4-10.2) mg/dL Assessment and Plan Assessment: #1 ESRD was on peritoneal dialysis. Currently hemodialysis #2 hypervolemic hyponatremia #3 secondary bacterial peritonitis secondary to peritoneal dialysis catheter. #4 CHF with systolic dysfunction EF of 40% #5 persistent A. fib #6 anemia with chronic kidney disease #7 metabolic bone disease #8 chronic hypotension Plan: #1 hemodialysis yesterday tolerated well. Next treatment on Sunday #2 continue with midodrine for hemodynamic support. #3 replace KCl
--- NOTE | 2023-06-16 14:50 | P.PN ---
Subjective Progress Note Date: 06/16/23 This is a 77-year-old white male with history of multiple medical problems including end-stage renal disease, on peritoneal dialysis, cardiomyopathy and LV dysfunction history of dual-chamber pacemaker, history of diabetes, benign essential hypertension, dyslipidemia, chronic atrial fibrillation, and obst ructive sleep apnea syndrome. Patient was admitted back on 06/04/2023, presented mostly at the time with abdominal pain, and weakness. he was discovered to have peritonitis related to his peritoneal dialysis. Patient had positive peritoneal fluid for staphylococcal epidermidis, and he was seen by infectious disease on consultation, patient has been receiving vancomycin. Since admission the seen by many consultants including nephrology, internal medicine, cardiology, infectious disease, and vascular surgery for placement of a hemodialysis catheter. Yesterday the patient developed hypotension not responding to fluid boluses, and he was transferred to the ICU and he had to be placed on norepinephrine. He is presently on norepinephrine at 0.13 mcg/kg/m still receiving vancomycin. Patient is on 3 L nasal cannula and at night the patient is on CPAP. His peritoneal dialysis catheter remains in place and we have requested surgery to evaluate and remove. Patient is supposed to have his hemodialysis today. In the meantime he continues to have treatment for his acute peritonitis. Blood cultures have been negative so far. Peritoneal fluid from the abdomen was positive for Staphylococcus epidermidis Patient was reevaluated today on 06/12/23, remains in the ICU, remains on 5 L nasal cannula, remains on norepinephrine at 0.09 mcg/kg/m, patient remains on antibiotics for his peritonitis and obviously the patient needs a PICC line. Patient is on hemodialysis, he does have a dialysis catheter in his right IJ area, and I'm recommending a PICC line today since the patient may need to be on long-term antibiotics, WBC count today is 9.6 hemoglobin 9.6 sodium is 127 potassium 3.6 BUN 34 creatinine 3.57. Patient remains on vancomycin for his positive staph epidermidis in the peritoneal fluid. And his abdominal dialysis catheter has been removed Reevaluated today on 06/13/23, patient remains in the ICU, remains on small dose of norepinephrine at 0.05 mcg/kg/m, patient is now receiving hemodialysis, remains on antibiotics/vancomycin, continues to have minimal right lower q uadrant pain. Overall the patient is doing fairly well, and he had his peritoneal dialysis catheter removed a few days ago, and now he has a right IJ's hemodialysis catheter instead. Blood cultures have been negative. WBC count is 7.9 hemoglobin 9 sodium 128 potassium 3.7 ER and is 20 creatinine 2.38 bicarb is 25 chest x-ray this morning showed mostly left lower lobe atelectasis and possibly a small left pleural effusion. Patient was reevaluated today on 06/14/23, remains in the ICU, remains on 4 L nasal cannula, he is on a lower dose of norepinephrine at 0.03 mcg/kg/m still receiving antibiotics for his acute peritonitis and sepsis and septic shock. Remains intermittently on hemodialysis. Patient denies any specific complaints, his CBC is relatively normal hemoglobin is 8.8 basic metabolic profile is normal BUN is 21 creatinine 2.16 sodium is 129. Chest x-ray from yesterday showed cardiomegaly and mild pulmonary vascular congestion with small pleural effusions and atelectasis. Patient was reevaluated today on 06/11/20 remains in the ICU, he is on 3 L nasal cannula, not in distress, patient is receiving hemodialysis during my evaluation. He is now off norepinephrine, blood pressure remains stable, WBC count is 8.6 hemoglobin is 8.5 sodium remains low at 127 BUN is 35 creatinine 3.47 bicarb is 24. Patient remains on vancomycin, and that being addressed by infectious disease on the case. The patient is seen today 06/16/2023 in follow-up on the selective care unit. Neelima arevalo is currently sitting up in bed. Awake and alert in no acute distress. He is maintaining O2 saturation in the 90s on 3 L/m per nasal cannula. He's been afebrile. Hemodynamically stable. His blood cultures were positive for staph epidermidis. He is completed vancomycin. He is awaiting placement in subacute rehabilitation. Objective - Vital Signs Vital signs: Vital Signs Temp 98.3 F 06/16/23 12:00 Pulse 82 06/16/23 12:00 Resp 16 06/16/23 12:00 BP 103/64 06/16/23 12:00 Pulse Ox 93 L 06/16/23 12:00 FiO2 45 06/16/23 00:00 Intake & Output 06/15/23 06/16/23 06/16/23 18:59 06:59 18:59 Intake Total 800 360 Output Total 0 0 Balance 800 0 360 Weight 113 kg 117 kg Intake: Oral 400 360 Tube Feeding 400 Output: Urine 0 0 Other: Voiding Method Urinal Urinal # Voids 1 # Bowel Movements 1 - Exam Physical Exam: Revealed a pleasant 77-year-old male on 3 L nasal cannula, in no distress. Head: Atraumatic, normocephalic. HEENT:Neck is supple. No neck masses. No thyromegaly. No JVD. Chest: Clear throughout, no crackles, no rhonchi, no wheezes. Cardiac Exam: Normal S1 and S2, no S3 gallop, no murmur. Abdomen: Obese, tenderness noted in the right lower quadrant area at the site of the peritoneal dialysis catheter. No evidence of any purulent discharge. Extremities: No clubbing, no edema, no cyanosis Neurological Exam: No focal neurologic deficit. Alert and oriented 3. Psychiatric: Normal mood affect and normal mental status examination. Skin: No rashes. Psychiatric: Normal mood affect and normal mental status examination. - Labs CBC & Chem 7: 06/16/23 08:48 06/16/23 08:48 Labs: Abnormal Lab Results - Last 24 Hours (Table) 06/15/23 06/15/23 06/15/23 Range/Units 17:02 20:05 21:03 RBC (4.30-5.90) m/uL Hgb (13.0-17.5) gm/dL Hct (39.0-53.0) % RDW (11.5-15.5) % Sodium (137-145) mmol/L Potassium (3.5-5.1) mmol/L Chloride (98-107) mmol/L BUN (9-20) mg/dL Creatinine (0.66-1.25) mg/dL Glucose (74-99) mg/dL POC Glucose (mg/dL) 238 H 153 H 168 H (70-110) mg/dL Calcium (8.4-10.2) mg/dL 06/16/23 06/16/23 06/16/23 Range/Units 06:07 08:48 08:48 RBC 2.74 L (4.30-5.90) m/uL Hgb 8.5 L (13.0-17.5) gm/dL Hct 27.3 L (39.0-53.0) % RDW 19.0 H (11.5-15.5) % Sodium 131 L (137-145) mmol/L Potassium 3.4 L (3.5-5.1) mmol/L Chloride 96 L (98-107) mmol/L BUN 29 H (9-20) mg/dL Creatinine 2.67 H (0.66-1.25) mg/dL Glucose 145 H (74-99) mg/dL POC Glucose (mg/dL) 117 H (70-110) mg/dL Calcium 7.9 L (8.4-10.2) mg/dL 06/16/23 Range/Units 11:46 RBC (4.30-5.90) m/uL Hgb (13.0-17.5) gm/dL Hct (39.0-53.0) % RDW (11.5-15.5) % Sodium (137-145) mmol/L Potassium (3.5-5.1) mmol/L Chloride (98-107) mmol/L BUN (9-20) mg/dL Creatinine (0.66-1.25) mg/dL Glucose (74-99) mg/dL POC Glucose (mg/dL) 167 H (70-110) mg/dL Calcium (8.4-10.2) mg/dL Assessment and Plan Assessment: Acute peritonitis, sepsis, and septic shock required norepinephrine, however today the patient is off norepinephrine. End-stage renal disease, on hemodialysis, he was previously on peritoneal dialysis however this was changed to hemodialysis. Chronic systolic congestive heart failure with ejection fraction of 35% Hypotension secondary to sepsis and septic shock requiring norepinephrine he is also on midodrine , will check cortisol level and decide whether the patient will need to be on Solu-Cortef Leukocytosis secondary to above Cardiomyopathy and LV dysfunction Chronic persistent atrial fibrillation History of end-stage renal disease Severe pulmonary hypertension Type 2 diabetes with diabetic nephropathy History of sick sinus syndrome requiring permanent pacemaker implantation Plan: The patient was seen and evaluated Labs and medications reviewed Continue the current treatment plan Awaiting subacute rehabilitation placement Plan to return to I have personally seen and examined the patient, performed the documentation and the assessment and plan as written. Number of minutes spent on the visit: 10.
[2023-06-16] MEDS ORDERED: FUROSEMIDE 10 MG/ML 2 ML VIAL IV ONE (15:13)
--- NOTE | 2023-06-16 16:14 | P.PN ---
Subjective Progress Note Date: 06/16/23 Principal diagnosis: Permanent pacemaker The patient is a 77-year-old gentleman with a past medical history significant for permanent pacemaker and cardiomyopathy and history of atrial fibrillation. Patient currently not on anticoagulation as well as multiple comorbid conditions including renal failure and dialysis was admitted to the hospital with abdominal discomfort felt to be related to peritonitis. 06/11/2023 The patient was seen and evaluated this morning. He seems to be stable beside he is on a very small dose of norepinephrine we are in process of weaning him fr om. His knee pressure is about 60 mmHg and systolic pressure above 90 mmHg. He is asymptomatic at this point. He is in paced atrial rhythm. We are in process of weaning the patient from norepinephrine. For some reason the patient is not on any oral anticoagulation. From the cardiac standpoint of view, we will continue the current medical regimen. Continue weaning the patient from norepinephrine. And follow-up with the patient. The examination is remarkable for regular rhythm with a systolic murmur at the right and left upper sternal border and diminished breathing sounds bilaterally and mild bilateral lower extremities edema June 122022 The patient was seen and evaluated this morning. He remains on a small dose of norepinephrine at this point. Otherwise he underwent dialysis yesterday. Blood work looks within normal limits. The examination is remarkable for regular rhythm with distant heart sounds and diminished breathing sounds bilaterally and mild bilateral lower extremities edema 06/13/2023 The patient was seen this morning. He still on norepinephrine. Otherwise he is stable. He had hemodialysis with removal of 4.5 L. The examination is remarkable for diminished breathing sounds bilaterally with a systolic murmur at the right upper sternal border and distant heart sounds. June 142022 The patient was seen and evaluated this morning. He underwent dialysis yesterday and he is going to have another dialysis tomorrow on Sunday. Hemodynamically he still unstable and requiring small dose of norepinephrine at this point. He is on midodrine to support the blood pressure. We are in process of weaning him from norepinephrine. Otherwise he still have upper and lower extremities edema. The examination is remarkable for regular rhythm with distant heart sounds and diminished breathing sounds bilaterally and upper and lower extremities edema. The hemoglobin is a stable. 06/15/2020 The patient was seen and evaluated this morning. He is currently having dialysis with removal of 2 1/2 L. He is of norepinephrine so far and has been h emodynamically stable. He still have severe upper and lower extremities edema. Hemoglobin is stable. May [id number] The patient was seen and evaluated this morning. Currently he is on the third floor. He is a stable overall. He is feeling better. He still have severe upper extremities edema and some lower extremity is edema. He is making urine in spite of being on dialysis. Currently he is on Lasix by mouth. I'm going to give the patient 20 mg of Lasix IV once. Continue the rest of the current medical regimen and follow-up with the patient. Assessment Heart failure, the patient seems to be euvolemic at this point Hypotension which has improved Cardiomyopathy with an ejection fraction between 30-35% History of atrial fibrillation Permanent pacemaker End-stage renal failure Plan Give the patient Lasix at 20 mg IV once Continue the current medical regimen The patient can be transferred out of the intensive care unit Follow-up with the patient Objective - Vital Signs Vital signs: Vital Signs Temp 97.3 F L 06/16/23 16:00 Pulse 79 06/16/23 16:00 Resp 18 06/16/23 16:00 BP 117/69 06/16/23 16:00 Pulse Ox 93 L 06/16/23 16:00 FiO2 45 06/16/23 00:00 Intake & Output 06/15/23 06/16/23 06/16/23 18:59 06:59 18:59 Intake Total 800 360 Output Total 0 0 50 Balance 800 0 310 Weight 113 kg 117 kg Intake: Oral 400 360 Tube Feeding 400 Output: Urine 0 0 50 Other: Voiding Method Urinal Urinal # Voids 1 # Bowel Movements 1 1 - Labs CBC & Chem 7: 06/16/23 08:48 06/16/23 08:48 Labs: Abnormal Lab Results - Last 24 Hours (Table) 06/15/23 06/15/23 06/15/23 Range/Units 17:02 20:05 21:03 RBC (4.30-5.90) m/uL Hgb (13.0-17.5) gm/dL Hct (39.0-53.0) % RDW (11.5-15.5) % Sodium (137-145) mmol/L Potassium (3.5-5.1) mmol/L Chloride (98-107) mmol/L BUN (9-20) mg/dL Creatinine (0.66-1.25) mg/dL Glucose (74-99) mg/dL POC Glucose (mg/dL) 238 H 153 H 168 H (70-110) mg/dL Calcium (8.4-10.2) mg/dL 06/16/23 06/16/23 06/16/23 Range/Units 06:07 08:48 08:48 RBC 2.74 L (4.30-5.90) m/uL Hgb 8.5 L (13.0-17.5) gm/dL Hct 27.3 L (39.0-53.0) % RDW 19.0 H (11.5-15.5) % Sodium 131 L (137-145) mmol/L Potassium 3.4 L (3.5-5.1) mmol/L Chloride 96 L (98-107) mmol/L BUN 29 H (9-20) mg/dL Creatinine 2.67 H (0.66-1.25) mg/dL Glucose 145 H (74-99) mg/dL POC Glucose (mg/dL) 117 H (70-110) mg/dL Calcium 7.9 L (8.4-10.2) mg/dL 06/16/23 Range/Units 11:46 RBC (4.30-5.90) m/uL Hgb (13.0-17.5) gm/dL Hct (39.0-53.0) % RDW (11.5-15.5) % Sodium (137-145) mmol/L Potassium (3.5-5.1) mmol/L Chloride (98-107) mmol/L BUN (9-20) mg/dL Creatinine (0.66-1.25) mg/dL Glucose (74-99) mg/dL POC Glucose (mg/dL) 167 H (70-110) mg/dL Calcium (8.4-10.2) mg/dL
[2023-06-16 16:32] LABS: Glucose,Whole Blood 200 mg/dL (70-110)
[2023-06-16 20:06] LABS: Glucose,Whole Blood 217 mg/dL (70-110)
--- NOTE | 2023-06-16 20:23 | P.PN ---
Subjective Progress Note Date: 06/16/23 Principal diagnosis: Reason for follow-up is peritoneal dialysis associated peritonitis Patient is a 77-year-old male with a past medical history significant for atrial fibrillation diabetes mellitus hypertension hyperlipidemia end-stage renal disease currently on peritoneal dialysis presenting to the hospital for evaluation of abdominal pain, patient has been diagnosed with a PD catheter assisted peritonitis. Patient did have a right IJ dialysis catheter placed on 06/09/2023, the peritoneal dialysis catheter was removed on 06/11/2023 On today's evaluation that is 06/16/2023, the patient remains to be afebrile, the patient is breathing comfortably on 3 L nasal cannula oxygen however the patient denies any shortness of breath, the patient denies chest pain or any cough , patient denies any nausea/vomiting abdominal pain or diarrhea. Patient did have a white count of 9.1, creatinine 2.6 7 repeat blood cultures have been negative so far. Objective - Vital Signs Vital signs: Vital Signs Temp 98.6 F 06/16/23 08:00 Pulse 89 06/16/23 08:00 Resp 16 06/16/23 08:00 BP 96/61 06/16/23 08:00 Pulse Ox 94 L 06/16/23 08:00 FiO2 45 06/16/23 00:00 Intake & Output 06/15/23 06/16/23 06/16/23 18:59 06:59 18:59 Intake Total 800 Output Total 0 0 Balance 800 0 Weight 113 kg 117 kg Intake: Oral 400 Tube Feeding 400 Output: Urine 0 0 Other: Voiding Method Urinal Urinal # Voids 1 # Bowel Movements 1 - Exam GENERAL DESCRIPTION: An elderly male lying in bed in no distress RESPIRATORY SYSTEM: Unlabored breathing , clear to auscultation anteriorly HEART: S1 S2 regular rate and rhythm , ABDOMEN: Soft , mild distention and tenderness EXTREMITIES: No edema feet - Labs CBC & Chem 7: 06/16/23 08:48 06/16/23 08:48 Labs: Abnormal Lab Results - Last 24 Hours (Table) 06/15/23 06/15/23 06/15/23 Range/Units 17:02 20:05 21:03 RBC (4.30-5.90) m/uL Hgb (13.0-17.5) gm/dL Hct (39.0-53.0) % RDW (11.5-15.5) % Sodium (137-145) mmol/L Potassium (3.5-5.1) mmol/L Chloride (98-107) mmol/L BUN (9-20) mg/dL Creatinine (0.66-1.25) mg/dL Glucose (74-99) mg/dL POC Glucose (mg/dL) 238 H 153 H 168 H (70-110) mg/dL Calcium (8.4-10.2) mg/dL 06/16/23 06/16/23 06/16/23 Range/Units 06:07 08:48 08:48 RBC 2.74 L (4.30-5.90) m/uL Hgb 8.5 L (13.0-17.5) gm/dL Hct 27.3 L (39.0-53.0) % RDW 19.0 H (11.5-15.5) % Sodium 131 L (137-145) mmol/L Potassium 3.4 L (3.5-5.1) mmol/L Chloride 96 L (98-107) mmol/L BUN 29 H (9-20) mg/dL Creatinine 2.67 H (0.66-1.25) mg/dL Glucose 145 H (74-99) mg/dL POC Glucose (mg/dL) 117 H (70-110) mg/dL Calcium 7.9 L (8.4-10.2) mg/dL Assessment and Plan (1) Dialysis-associated peritonitis Current Visit: Yes Status: Acute Code(s): T85.71XA - INFECT/INFLM REACTION DUE TO PERITON DIALYSIS CATHETER, INIT SNOMED Code(s): 043851712 (2) Leukocytosis Current Visit: No Status: Acute Code(s): D72.829 - ELEVATED WHITE BLOOD CELL COUNT, UNSPECIFIED SNOMED Code(s): 581739802 Plan: 1patient presented to hospital with abdominal pain in this patient with a history of end-stage renal disease on peritoneal dialysis concerning for PD catheter associated peritonitis patient did have elevated white count no fever CT abdominal pelvis did show ascites but no other abnormality patient did have a peritoneal dialysis fluid culture positive for staph epi on 05/10/2023, could be likely the same pathogen 2-peritoneal peritoneal Fluid cell count cell count of 1775 culture are currently growing coagulase negative staph, blood culture had been negative 3patient has been transitioned to hemodialysis with the placement of right IJ dialysis catheter and the patient had been tolerating his dialysis 4patient to continue with the current treatment of vancomycin pharmacy to dose to finish a 2-week course of therapy and will monitor his clinical course closely Dictation was produced using [employer] dictation software. please excuse any grammatical, word or spelling errors.
[2023-06-17 06:11] LABS: Glucose,Whole Blood 126 mg/dL (70-110)
[2023-06-17] MEDS: INSULIN ASPART (NovoLOG) 100 UNIT/ML VIAL SQ SCH ×4 (06:16→21:21)
[2023-06-17] MEDS: CALCIUM ACETATE 667 MG TAB PO SCH ×3 (06:36→17:13)
[2023-06-17] MEDS: HEPARIN SODIUM,PORCINE 5,000 UNIT/ML 1 ML VIAL SQ SCH ×2 (09:48→21:21)
[2023-06-17] MEDS: allopurinoL 300 MG TAB PO SCH (09:48)
[2023-06-17] MEDS: DOCUSATE 100 MG CAP PO SCH ×2 (09:48→21:19)
[2023-06-17] MEDS: MIDODRINE 5 MG TAB PO SCH ×4 (09:48→21:20)
[2023-06-17] MEDS: FERROUS SULFATE 325 MG TAB PO SCH (09:48)
[2023-06-17] MEDS: ASPIRIN 81 MG PO SCH (09:48)
[2023-06-17] MEDS: CHOLESTYRAMINE (WITH SUGAR) 4 GM PACKET PO SCH ×3 (09:48→17:13)
[2023-06-17] MEDS: PANTOPRAZOLE 40 MG/10 ML VIAL IVP SCH (09:48)
[2023-06-17] MEDS: AMIODARONE 200 MG TAB PO SCH (09:48)
[2023-06-17] MEDS: SUCRALFATE 1 GM TAB PO SCH ×3 (09:48→21:20)
[2023-06-17 11:39] LABS: Glucose,Whole Blood 200 mg/dL (70-110)
--- NOTE | 2023-06-17 12:04 | P.PN ---
Subjective Progress Note Date: 06/17/23 Principal diagnosis: Permanent pacemaker The patient is a 77-year-old gentleman with a past medical history significant for permanent pacemaker and cardiomyopathy and history of atrial fibrillation. Patient currently not on anticoagulation as well as multiple comorbid conditions including renal failure and dialysis was admitted to the hospital with abdominal discomfort felt to be related to peritonitis. 06/11/2023 The patient was seen and evaluated this morning. He seems to be stable beside he is on a very small dose of norepinephrine we are in process of weaning him fr om. His knee pressure is about 60 mmHg and systolic pressure above 90 mmHg. He is asymptomatic at this point. He is in paced atrial rhythm. We are in process of weaning the patient from norepinephrine. For some reason the patient is not on any oral anticoagulation. From the cardiac standpoint of view, we will continue the current medical regimen. Continue weaning the patient from norepinephrine. And follow-up with the patient. The examination is remarkable for regular rhythm with a systolic murmur at the right and left upper sternal border and diminished breathing sounds bilaterally and mild bilateral lower extremities edema June 122022 The patient was seen and evaluated this morning. He remains on a small dose of norepinephrine at this point. Otherwise he underwent dialysis yesterday. Blood work looks within normal limits. The examination is remarkable for regular rhythm with distant heart sounds and diminished breathing sounds bilaterally and mild bilateral lower extremities edema 06/13/2023 The patient was seen this morning. He still on norepinephrine. Otherwise he is stable. He had hemodialysis with removal of 4.5 L. The examination is remarkable for diminished breathing sounds bilaterally with a systolic murmur at the right upper sternal border and distant heart sounds. June 142022 The patient was seen and evaluated this morning. He underwent dialysis yesterday and he is going to have another dialysis tomorrow on Sunday. Hemodynamically he still unstable and requiring small dose of norepinephrine at this point. He is on midodrine to support the blood pressure. We are in process of weaning him from norepinephrine. Otherwise he still have upper and lower extremities edema. The examination is remarkable for regular rhythm with distant heart sounds and diminished breathing sounds bilaterally and upper and lower extremities edema. The hemoglobin is a stable. 06/15/2020 The patient was seen and evaluated this morning. He is currently having dialysis with removal of 2 1/2 L. He is of norepinephrine so far and has been h emodynamically stable. He still have severe upper and lower extremities edema. Hemoglobin is stable. June 17 2023 The patient was seen and evaluated this morning. Currently he is on the third floor. He is a stable overall. He is feeling better. He still have severe upper extremities edema and some lower extremity is edema. He is making urine in spite of being on dialysis. Currently he is on Lasix by mouth. I'm going to give the patient 20 mg of Lasix IV once. Continue the rest of the current medical regimen and follow-up with the patient. 06/17/2023 The patient was seen and evaluated this morning. He is stable was marginally low blood pressure above 90 mmHg systolic. No chest pain and no chest discomfort. He still have upper extremities edema but he did not respond well to IV Lasix yesterday. He is on dialysis and status post heart dialysis tomorrow. Examination is remarkable for regular rhythm with distant heart sounds and upper extremities edema Assessment Heart failure, the patient seems to be euvolemic at this point Hypotension which has improved Cardiomyopathy with an ejection fraction between 30-35% History of atrial fibrillation Permanent pacemaker End-stage renal failure Plan Continue the current medical regimen The patient can be transferred out of the intensive care unit Follow-up with the patient Objective - Vital Signs Vital signs: Vital Signs Temp 96.4 F L 06/17/23 08:00 Pulse 88 06/17/23 08:00 Resp 18 06/17/23 08:00 BP 104/44 06/17/23 08:00 Pulse Ox 93 L 06/17/23 08:00 FiO2 45 06/17/23 04:00 Intake & Output 06/16/23 06/17/23 06/17/23 18:59 06:59 18:59 Intake Total 718 240 Output Total 50 Balance 668 240 Weight 127 kg Intake: Oral 718 240 Output: Urine 50 Other: Voiding Method Urinal Urinal # Voids 1 1 # Bowel Movements 1 1 - Labs CBC & Chem 7: 06/16/23 08:48 06/16/23 08:48 Labs: Abnormal Lab Results - Last 24 Hours (Table) 06/16/23 06/16/23 06/17/23 Range/Units 16:31 20:05 06:07 POC Glucose (mg/dL) 200 H 217 H 126 H (70-110) mg/dL 06/17/23 Range/Units 11:38 POC Glucose (mg/dL) 200 H (70-110) mg/dL
--- NOTE | 2023-06-17 12:48 | P.PN ---
Subjective Progress Note Date: 06/17/23 This is a pleasant 77 years old male with past medical history of end-stage renal disease undergoing peritoneal dialysis, history of cardiomyopathy and heart block status post dual chamber pacemaker , diabetes mellitus, GERD, low blood pressure, hyperlipidemia, constipation history of atrial fibrillation, sleep apnea patient presents because of abdominal pain on the right side. He says that his pain about 10/10 and his been going on for the last 2 weeks but gets more worse recently over 1-2 days. He reports some loose stool and diarrhea, he had 1 loose bowel movement yesterday. He is not able to eat but no vomiting Currently denies chest pain or dyspnea. No urinary complaints. No headache. No weakness numbness. He is nonsmoker no alcohol or no illicit drugs. Blood pressure currently the low side 86/54. Sodium 126, creatinine 4.7, glucose 148, magnesium 1.1, liver enzymes not elevated. ProBNP is 10,000. Lipase 198. Chest x-ray: No acute process except for trace bilateral pleural effusion CT of the abdomen and pelvis: Abdominal and pelvic ascites with peritoneal dialysis catheter in place. Small hiatal hernia, diverticulosis without acute diverticulitis, no small bowel obstruction, no free intraperitoneal air 05/06/2023 Patient's abdominal pain is better, it looks relaxed. He tolerates diet well 25-100% Peritoneal fluid cultures pending I discussed the case with ID team, undergone a treatment him with intraperitoneal vancomycin as he has previous culture from staph hominis recently. 06/07/2023 Patient is more up in bed, more awake and stronger although not completely back to baseline Although he tolerated some his diet however he still saw recurrent because of his infection in the intraperitoneal cavity. Culture is growing A's-negative staph. Antibiotics was adjusted to IV vancomycin only Plan to switch his peritoneal dialysis to hemodialysis by placing permacath tomorrow 06/08/2023 Patient had little more abdominal pain last night, he uses only Tylenol and he thinks that caused too much for him before going to the, Tylenol No. 3. Patient tolerates diet to certain level. His leukocytosis is improving He remains on IV vancomycin and culture is growing coagulase-negative staph. Plan to change his peritoneal dialysis catheter and to hemodialysis catheter tomorrow. C. diff tests is requested for diarrhea although the suspicion is low 06/09/2023 Patient abdominal pain is improving Diarrhea stopped after adding Questran Patient pending hemodialysis catheter placement to switch his peritoneal dialysis until HD and remove the PD catheter 06/10/2023 Patient improving slowly and gradually His abdominal pain is much better/10 and will control with pain medication His diarrhea improved after adding Questran however he still have some loose stool today. Plan to obtain hemodialysis catheter today shows large peritoneal dialysis and to hemodialysis and discontinue with the peritoneal catheter. Peritoneal fluid culture is growing staph epidermidis and patient currently covered with IV vancomycin 06/11. Patient seen and examined. WBC 15, hemoglobin 9.8, platelet count 3:30, sodium 126, potassium 4.2, BUN 67, creatinine 6.37. Currently undergoing hemodialysis. Currently on Levophed 06/12. Patient seen and examined. Blood work done This morning showed WBC 9.6, hemoglobin 9.6, platelet count 326 sodium 127, potassium 3.6, BUN and 34, crea tinine 3.57. Patient was getting dialysis today. Left upper extremity swollen 06/13. Patient seen and examined. States he is doing better compared to yesterday, left upper extremity swelling has improved. 06/14. Patient seen and examined patient currently sitting upright in the bed, eating his meal. States breathing is improving a lot. Still having abdominal pain at the site of PD catheter. Continues to be on 4 L of oxygen. 06/15. Patient seen and examined. Lab work done this morning showed WBC 8.6, hemoglobin 8.5, sodium 127 potassium 3.8, BUN 35, creatinine 3.47. States he feels much better. Has been weaned off the Levophed 06/16. Patient seen and examined. Patient has been transferred out of ICU, currently in stepdown floor. Patient on 3 L of oxygen. Blood work done this morning showed WBC 9.1, hemoglobin 8.5, sodium 134, potassium 3.4, BUN 29, creatinine 2.67 06/17. Patient seen and examined. Swelling of upper extremities has improved. No shortness of breath at rest, get short of breath on exertion. Currently on 3 L of oxygen REVIEW OF SYSTEMS: CONSTITUTIONAL: No fever, no malaise,. CARDIOVASCULAR: No chest pain, no palpitations, no syncope. PULMONARY: As mentioned above GASTROINTESTINAL: No diarrhea, no nausea, no vomiting NEUROLOGICAL: No headaches, no weakness, PHYSICAL EXAMINATION: GENERAL: The patient is alert and oriented x3, not in any acute distress. Chronically ill-looking HEENT: Pupils are round and equally reacting to light. EOMI. No scleral icterus. No conjunctival pallor. Normocephalic, atraumatic. No pharyngeal erythema. No thyromegaly. CARDIOVASCULAR: S1 and S2 present. No murmurs, rubs, or gallops. PULMONARY: Diminished breath sounds at the bases bilaterally, no wheezing or crackles. ABDOMEN: Soft, nontender, nondistended, normoactive bowel sounds. No palpable organomegaly. MUSCULOSKELETAL: No joint swelling or deformity. EXTREMITIES: No cyanosis, clubbing, 1+ pitting edema lower extremities. Right and Left upper extremity swollen NEUROLOGICAL: Gross neurological examination did not reveal any focal deficits. SKIN: No rashes. Assessment and plan Acute peritonitis, sepsis, suspect septic shock End-stage renal disease, patient has been transitioned to hemodialysis from peritoneal dialysis Chronic systolic congestive heart failure with ejection fraction of 35% Hypotension secondary to sepsis and septic shock requiring norepinephrine he is also on midodrine Leukocytosis Cardiomyopathy and LV dysfunction Chronic persistent atrial fibrillation History of end-stage renal disease Severe pulmonary hypertension Type 2 diabetes with diabetic nephropathy History of sick sinus syndrome requiring permanent pacemaker implantation Plan: Monitor vital signs Monitor CBC Monitor CMP Continue telemetry monitoring Encourage use of incentive spirometer Continue amiodarone Continue midodrine Continue vancomycin pharmacy dose with dialysis Nephrology following, permacath placed, peritoneal dialysis catheter removed by surgery on 06/11. Continue hemodialysis per nephrology ID following Pulmonology following Labs and medication were reviewed.. Continue same treatment. Continue with symptomatic treatment. Resume home medication. Monitor labs and vitals. DVT and GI prophylaxis. Further recommendations as per clinical course of the patient Dictation was produced using [employer] dictation software. please excuse any grammatical, word or spelling errors. Objective - Vital Signs Vital signs: Vital Signs Temp 97.4 F L 06/17/23 12:00 Pulse 77 06/17/23 12:00 Resp 17 06/17/23 12:00 BP 106/54 06/17/23 12:00 Pulse Ox 95 06/17/23 12:00 FiO2 45 06/17/23 04:00 Intake & Output 06/16/23 06/17/23 06/17/23 18:59 06:59 18:59 Intake Total 718 240 Output Total 50 Balance 668 240 Weight 127 kg Intake: Oral 718 240 Output: Urine 50 Other: Voiding Method Urinal Urinal # Voids 1 1 # Bowel Movements 1 1 - Labs CBC & Chem 7: 06/16/23 08:48 06/16/23 08:48 Labs: Abnormal Lab Results - Last 24 Hours (Table) 06/16/23 06/16/23 06/17/23 Range/Units 16:31 20:05 06:07 POC Glucose (mg/dL) 200 H 217 H 126 H (70-110) mg/dL 06/17/23 Range/Units 11:38 POC Glucose (mg/dL) 200 H (70-110) mg/dL
--- NOTE | 2023-06-17 14:46 | P.PN ---
Subjective Progress Note Date: 06/17/23 Follow-up for ESRD. Objective - Vital Signs Vital signs: Vital Signs Temp 97.4 F L 06/17/23 12:00 Pulse 77 06/17/23 12:00 Resp 17 06/17/23 12:00 BP 106/54 06/17/23 12:00 Pulse Ox 95 06/17/23 12:00 FiO2 45 06/17/23 04:00 Intake & Output 06/16/23 06/17/23 06/17/23 18:59 06:59 18:59 Intake Total 718 360 Output Total 50 Balance 668 360 Weight 127 kg Intake: Oral 718 360 Output: Urine 50 Other: Voiding Method Urinal Urinal # Voids 1 1 # Bowel Movements 1 1 - Exam No acute distress S1-S2 heard, right jugular permacath Decreased breath sounds Abdomen soft Edema - Labs CBC & Chem 7: 06/16/23 08:48 06/16/23 08:48 Labs: Abnormal Lab Results - Last 24 Hours (Table) 06/16/23 06/16/23 06/17/23 Range/Units 16:31 20:05 06:07 POC Glucose (mg/dL) 200 H 217 H 126 H (70-110) mg/dL 06/17/23 Range/Units 11:38 POC Glucose (mg/dL) 200 H (70-110) mg/dL Assessment and Plan Assessment: #1 ESRD was on peritoneal dialysis. Currently hemodialysis #2 hypervolemic hyponatremia #3 secondary bacterial peritonitis secondary to peritoneal dialysis catheter. #4 CHF with systolic dysfunction EF of 40% #5 persistent A. fib #6 anemia with chronic kidney disease #7 metabolic bone disease #8 chronic hypotension Plan: #1 hemodialysis on Sunday tolerated well. Next treatment on Sunday #2 continue with midodrine for hemodynamic support. #3 replace KCl
--- NOTE | 2023-06-17 16:00 | P.PN ---
Subjective Progress Note Date: 06/17/23 This is a 77-year-old white male with history of multiple medical problems including end-stage renal disease, on peritoneal dialysis, cardiomyopathy and LV dysfunction history of dual-chamber pacemaker, history of diabetes, benign essential hypertension, dyslipidemia, chronic atrial fibrillation, and obst ructive sleep apnea syndrome. Patient was admitted back on 06/04/2023, presented mostly at the time with abdominal pain, and weakness. he was discovered to have peritonitis related to his peritoneal dialysis. Patient had positive peritoneal fluid for staphylococcal epidermidis, and he was seen by infectious disease on consultation, patient has been receiving vancomycin. Since admission the seen by many consultants including nephrology, internal medicine, cardiology, infectious disease, and vascular surgery for placement of a hemodialysis catheter. Yesterday the patient developed hypotension not responding to fluid boluses, and he was transferred to the ICU and he had to be placed on norepinephrine. He is presently on norepinephrine at 0.13 mcg/kg/m still receiving vancomycin. Patient is on 3 L nasal cannula and at night the patient is on CPAP. His peritoneal dialysis catheter remains in place and we have requested surgery to evaluate and remove. Patient is supposed to have his hemodialysis today. In the meantime he continues to have treatment for his acute peritonitis. Blood cultures have been negative so far. Peritoneal fluid from the abdomen was positive for Staphylococcus epidermidis Patient was reevaluated today on 06/12/23, remains in the ICU, remains on 5 L nasal cannula, remains on norepinephrine at 0.09 mcg/kg/m, patient remains on antibiotics for his peritonitis and obviously the patient needs a PICC line. Patient is on hemodialysis, he does have a dialysis catheter in his right IJ area, and I'm recommending a PICC line today since the patient may need to be on long-term antibiotics, WBC count today is 9.6 hemoglobin 9.6 sodium is 127 potassium 3.6 BUN 34 creatinine 3.57. Patient remains on vancomycin for his positive staph epidermidis in the peritoneal fluid. And his abdominal dialysis catheter has been removed Reevaluated today on 06/13/23, patient remains in the ICU, remains on small dose of norepinephrine at 0.05 mcg/kg/m, patient is now receiving hemodialysis, remains on antibiotics/vancomycin, continues to have minimal right lower q uadrant pain. Overall the patient is doing fairly well, and he had his peritoneal dialysis catheter removed a few days ago, and now he has a right IJ's hemodialysis catheter instead. Blood cultures have been negative. WBC count is 7.9 hemoglobin 9 sodium 128 potassium 3.7 ER and is 20 creatinine 2.38 bicarb is 25 chest x-ray this morning showed mostly left lower lobe atelectasis and possibly a small left pleural effusion. Patient was reevaluated today on 06/14/23, remains in the ICU, remains on 4 L nasal cannula, he is on a lower dose of norepinephrine at 0.03 mcg/kg/m still receiving antibiotics for his acute peritonitis and sepsis and septic shock. Remains intermittently on hemodialysis. Patient denies any specific complaints, his CBC is relatively normal hemoglobin is 8.8 basic metabolic profile is normal BUN is 21 creatinine 2.16 sodium is 129. Chest x-ray from yesterday showed cardiomegaly and mild pulmonary vascular congestion with small pleural effusions and atelectasis. Patient was reevaluated today on 06/11/20 remains in the ICU, he is on 3 L nasal cannula, not in distress, patient is receiving hemodialysis during my evaluation. He is now off norepinephrine, blood pressure remains stable, WBC count is 8.6 hemoglobin is 8.5 sodium remains low at 127 BUN is 35 creatinine 3.47 bicarb is 24. Patient remains on vancomycin, and that being addressed by infectious disease on the case. The patient is seen today 06/16/2023 in follow-up on the selective care unit. Neelima arevalo is currently sitting up in bed. Awake and alert in no acute distress. He is maintaining O2 saturation in the 90s on 3 L/m per nasal cannula. He's been afebrile. Hemodynamically stable. His blood cultures were positive for staph epidermidis. He is completed vancomycin. He is awaiting placement in subacute rehabilitation. The patient is seen today 06/17/2023 in follow-up on the selective care unit. He is currently resting comfortably in bed. Awake and alert in no acute distress. He continues to maintain good O2 saturations in the 90s on 3 L/m per nasal cannula. He denies any worsening shortness of breath, cough or congestion. Denies any significant abdominal discomfort. Blood sugar 200. Objective - Vital Signs Vital signs: Vital Signs Temp 97.4 F L 06/17/23 12:00 Pulse 77 06/17/23 12:00 Resp 17 06/17/23 12:00 BP 106/54 06/17/23 12:00 Pulse Ox 95 06/17/23 12:00 FiO2 45 06/17/23 04:00 Intake & Output 06/16/23 06/17/23 06/17/23 18:59 06:59 18:59 Intake Total 718 360 Output Total 50 Balance 668 360 Weight 127 kg Intake: Oral 718 360 Output: Urine 50 Other: Voiding Method Urinal Urinal # Voids 1 1 # Bowel Movements 1 1 - Exam Physical Exam: Revealed a pleasant 77-year-old male patient, resting comfortably in bed, on 3 L nasal cannula, in no distress. Head: Atraumatic, normocephalic. HEENT:Neck is supple. No neck masses. No thyromegaly. No JVD. Chest: Clear throughout, no crackles, no rhonchi, no wheezes. Cardiac Exam: Normal S1 and S2, no S3 gallop, no murmur. Abdomen: Obese, tenderness noted in the right lower quadrant area at the site of the peritoneal dialysis catheter. No evidence of any purulent discharge. Extremities: No clubbing, no edema, no cyanosis Neurological Exam: No focal neurologic deficit. Alert and oriented 3. Psychiatric: Normal mood affect and normal mental status examination. Skin: No rashes. Psychiatric: Normal mood affect and normal mental status examination. - Labs CBC & Chem 7: 06/16/23 08:48 06/16/23 08:48 Labs: Abnormal Lab Results - Last 24 Hours (Table) 06/16/23 06/16/23 06/17/23 Range/Units 16:31 20:05 06:07 POC Glucose (mg/dL) 200 H 217 H 126 H (70-110) mg/dL 06/17/23 Range/Units 11:38 POC Glucose (mg/dL) 200 H (70-110) mg/dL Assessment and Plan Assessment: Acute peritonitis, sepsis, and septic shock required norepinephrine, however today the patient is off norepinephrine. Recovered End-stage renal disease, on hemodialysis, he was previously on peritoneal dialysis however this was changed to hemodialysis. Chronic systolic congestive heart failure with ejection fraction of 35% Hypotension secondary to sepsis and septic shock requiring norepinephrine he is also on midodrine , will check cortisol level and decide whether the patient will need to be on Solu-Cortef Leukocytosis secondary to above Cardiomyopathy and LV dysfunction Chronic persistent atrial fibrillation History of end-stage renal disease Severe pulmonary hypertension Type 2 diabetes with diabetic nephropathy History of sick sinus syndrome requiring permanent pacemaker implantation Plan: The patient was seen and evaluated Medications reviewed Continue the current treatment plan Plan to return to [facility] possibly tomorrow I have personally seen and examined the patient, performed the documentation and the assessment and plan as written. Number of minutes spent on the visit: 10.
[2023-06-17 16:29] LABS: Glucose,Whole Blood 235 mg/dL (70-110)
[2023-06-17 19:49] LABS: Anisocytosis Slight; Basophils # (A) 0.1 k/uL (0-0.2); Basophils % (A) 1 %; Eosinophils # (A) 0.2 k/uL (0-0.7); Eosinophils % (A) 3 %; HCT 28.1 % (39.0-53.0); HGB 8.9 gm/dL (13.0-17.5); Hypochromasia Moderate; Lymphocytes # (A) 1.1 k/uL (1.0-4.8); Lymphocytes % (A) 13 %; MCH 31.7 pg (25.0-35.0); MCHC 31.8 g/dL (31.0-37.0); MCV 99.5 fL (80.0-100.0); Macrocytosis Moderate; Mean Platelet Volume 7.4; Monocytes # (A) 0.3 k/uL (0-1.0); Monocytes % (A) 4 %; Neutrophils # (A) 6.6 k/uL (1.3-7.7); Neutrophils % (A) 78 %; Platelet Count 331 k/uL (150-450); Poikilocytosis Slight; RBC 2.82 m/uL (4.30-5.90); RDW 18.5 % (11.5-15.5); WBC 8.5 k/uL (3.8-10.6)
[2023-06-17 20:04] LABS: Glucose,Whole Blood 209 mg/dL (70-110)
[2023-06-17 20:06] LABS: African American GFR (CKD) 16 (>60 ml/min/1.73 sqM); Anion Gap 11 mmol/L; Blood Urea Nitrogen 50 mg/dL (9-20); Calcium 7.9 mg/dL (8.4-10.2); Carbon Dioxide 22 mmol/L (22-30); Chloride 94 mmol/L (98-107); Glucose 182 mg/dL (74-99); Magnesium 1.7 mg/dL (1.6-2.3); Non-African American GFR(CKD) 14 (>60 ml/min/1.73 sqM); Potassium 4.6 mmol/L (3.5-5.1); Sodium 127 mmol/L (137-145)
[2023-06-17] MEDS: ACETAMINOPHEN TAB 500 MG TAB PO PRN (21:19)
[2023-06-18 05:59] LABS: Glucose,Whole Blood 150 mg/dL (70-110)
[2023-06-18] MEDS: INSULIN ASPART (NovoLOG) 100 UNIT/ML VIAL SQ SCH ×2 (06:32→13:41)
--- NOTE | 2023-06-18 08:35 | IR ---
EXAMINATION TYPE: IR cvc insert central tunneled DATE OF EXAM: 06/10/2023 COMPARISON: NONE HISTORY: Fluoroscopy time. Fluoroscopy was provided to the referring clinician.
--- NOTE | 2023-06-18 09:42 | P.PN ---
Subjective Patient is seen in follow-up for end-stage renal disease. He was switched from peritoneal to hemodialysis this admission. Tolerating hemodialysis fairly well. Hemodynamically stable. Wants to be discharged. Vital signs are stable. General: No acute distress. HEENT: Head exam is unremarkable. LUNGS: No audible rhonchi or wheezes. HEART: Rate and Rhythm are regular. ABDOMEN: Obese, nontender. EXTREMITITES: No edema. Chronic changes noted. Objective - Vital Signs Vital signs: Vital Signs Temp 98.4 F 06/17/23 16:00 Pulse 77 06/18/23 04:00 Resp 18 06/18/23 04:00 BP 88/42 06/18/23 04:00 Pulse Ox 95 06/18/23 04:00 FiO2 45 06/18/23 07:15 Intake & Output 06/17/23 06/18/23 06/18/23 18:59 06:59 18:59 Intake Total 480 240 Balance 480 240 Intake: Oral 480 240 Other: Voiding Method Urinal Urinal # Voids 1 1 # Bowel Movements 1 - Labs CBC & Chem 7: 06/17/23 19:27 06/17/23 19:27 Labs: Abnormal Lab Results - Last 24 Hours (Table) 06/17/23 06/17/23 06/17/23 Range/Units 11:38 16:28 19:27 RBC 2.82 L (4.30-5.90) m/uL Hgb 8.9 L (13.0-17.5) gm/dL Hct 28.1 L (39.0-53.0) % RDW 18.5 H (11.5-15.5) % Sodium (137-145) mmol/L Chloride (98-107) mmol/L BUN (9-20) mg/dL Creatinine (0.66-1.25) mg/dL Glucose (74-99) mg/dL POC Glucose (mg/dL) 200 H 235 H (70-110) mg/dL Calcium (8.4-10.2) mg/dL 06/17/23 06/17/23 06/18/23 Range/Units 19:27 20:03 05:58 RBC (4.30-5.90) m/uL Hgb (13.0-17.5) gm/dL Hct (39.0-53.0) % RDW (11.5-15.5) % Sodium 127 L (137-145) mmol/L Chloride 94 L (98-107) mmol/L BUN 50 H (9-20) mg/dL Creatinine 3.97 H (0.66-1.25) mg/dL Glucose 182 H (74-99) mg/dL POC Glucose (mg/dL) 209 H 150 H (70-110) mg/dL Calcium 7.9 L (8.4-10.2) mg/dL Assessment and Plan Plan: Assessment: 1. End-stage renal disease maintained on hemodialysis. 2. Generalized weakness. 3. Hyponatremia secondary to chronic kidney disease. Hypervolemic. 4. PD associated peritonitis. WBC count 1775 and 96% PMNs dated108/05/2022. Repeat cell count 65 and PMNs 77% dated 06/06/2023. Body fluid culture positive for staph epi. PD catheter removed as patient wanted to switch to hemodialysis. 5. Diabetes mellitus. 6. Chronic systolic CHF with ejection fraction of 35-40% with severe pulmonary hypertension. 7. Persistent A. fib been followed by cardiology. 8. History of permanent pacemaker implantation with generator change in April 2023. 9. Chronic kidney disease mineral bone disease. Phosphorus level 5.6 dated . On PhosLo. 10. Hypomagnesemia from poor intake. Replaced. Improved. Plan: Hemodialysis today. IV antibiotics per infectious disease. Monitor vancomycin levels. Dose to be adjusted for renal function. Maintain midodrine.
[2023-06-18 11:34] LABS: Glucose,Whole Blood 177 mg/dL (70-110)
[2023-06-18 11:58] VITALS: BMI 39.0
--- NOTE | 2023-06-18 12:05 | P.DS ---
Providers Date of admission: 06/05/23 10:26 Expected date of discharge: 06/18/23 Attending physician: Callum Hester Consults: 06/05/23 00:26 Consult Physician Routine Consulting Provider: Mandy Ray Consult Reason/Comments: cp Do you want consulting provider notified?: Yes 06/05/23 09:15 Consult Physician Routine Consulting Provider: Bj Weller Consult Reason/Comments: PD Do you want consulting provider notified?: Already Contacted 06/05/23 09:58 Consult Physician Urgent Consulting Provider: Kam Garibay Consult Reason/Comments: possible peritonitis Do you want consulting provider notified?: Yes 06/06/23 15:47 Consult Physician Urgent Consulting Provider: Sukhdev Ruby Consult Reason/Comments: diaysis cath, pt has pacemaker, talk to Eduar prior to insertion Do you want consulting provider notified?: Yes 06/10/23 19:18 Consult Physician Stat Consulting Provider: Niles Kirby Consult Reason/Comments: icu management Do you want consulting provider notified?: Already Contacted Primary care physician: Nayan Georges [facility] Course: Discharge diagnoses; Acute peritonitis, sepsis, suspect septic shock End-stage renal disease, patient has been transitioned to hemodialysis from peritoneal dialysis Chronic systolic congestive heart failure with ejection fraction of 35% Hypotension secondary to sepsis and septic shock requiring norepinephrine he is also on midodrine Leukocytosis Cardiomyopathy and LV dysfunction Chronic persistent atrial fibrillation History of end-stage renal disease Severe pulmonary hypertension Type 2 diabetes with diabetic nephropathy History of sick sinus syndrome requiring permanent pacemaker implantation Hospital course; This is a pleasant 77 years old male with past medical history of end-stage renal disease undergoing peritoneal dialysis, history of cardiomyopathy and heart block status post dual chamber pacemaker , diabetes mellitus, GERD, low blood pressure, hyperlipidemia, constipation history of atrial fibrillation, sleep apnea patient presents because of abdominal pain on the right side. He says that his pain about 10/10 and his been going on for the last 2 weeks but gets more worse recently over 1-2 days. He reports some loose stool and diarrhea, he had 1 loose bowel movement yesterday. He is not able to eat but no vomiting Currently denies chest pain or dyspnea. No urinary complaints. No headache. No weakness numbness. He is nonsmoker no alcohol or no illicit drugs. Blood pressure currently the low side 86/54. Sodium 126, creatinine 4.7, glucose 148, magnesium 1.1, liver enzymes not elevated. ProBNP is 10,000. Lipase 198. Chest x-ray: No acute process except for trace bilateral pleural effusion CT of the abdomen and pelvis: Abdominal and pelvic ascites with peritoneal dialysis catheter in place. Small hiatal hernia, diverticulosis without acute diverticulitis, no small bowel obstruction, no free intraperitoneal air 05/06/2023 Patient's abdominal pain is better, it looks relaxed. He tolerates diet well 25-100% Peritoneal fluid cultures pending I discussed the case with ID team, undergone a treatment him with intraperitoneal vancomycin as he has previous culture from staph hominis recently. 06/07/2023 Patient is more up in bed, more awake and stronger although not completely back to baseline Although he tolerated some his diet however he still saw recurrent because of his infection in the intraperitoneal cavity. Culture is growing A's-negative staph. Antibiotics was adjusted to IV vancomycin only Plan to switch his peritoneal dialysis to hemodialysis by placing permacath tomorrow 06/08/2023 Patient had little more abdominal pain last night, he uses only Tylenol and he thinks that caused too much for him before going to the, Tylenol No. 3. Patient tolerates diet to certain level. His leukocytosis is improving He remains on IV vancomycin and culture is growing coagulase-negative staph. Plan to change his peritoneal dialysis catheter and to hemodialysis catheter tomorrow. C. diff tests is requested for diarrhea although the suspicion is low 06/09/2023 Patient abdominal pain is improving Diarrhea stopped after adding Questran Patient pending hemodialysis catheter placement to switch his peritoneal dialysis until HD and remove the PD catheter 06/10/2023 Patient improving slowly and gradually His abdominal pain is much better/10 and will control with pain medication His diarrhea improved after adding Questran however he still have some loose stool today. Plan to obtain hemodialysis catheter today shows large peritoneal dialysis and to hemodialysis and discontinue with the peritoneal catheter. Peritoneal fluid culture is growing staph epidermidis and patient currently covered with IV vancomycin 06/11. Patient seen and examined. WBC 15, hemoglobin 9.8, platelet count 3:30, sodium 126, potassium 4.2, BUN 67, creatinine 6.37. Currently undergoing hemodialysis. Currently on Levophed 06/12. Patient seen and examined. Blood work done This morning showed WBC 9.6, hemoglobin 9.6, platelet count 326 sodium 127, potassium 3.6, BUN and 34, creatinine 3.57. Patient was getting dialysis today. Left upper extremity swollen 06/13. Patient seen and examined. States he is doing better compared to yesterday, left upper extremity swelling has improved. 06/14. Patient seen and examined patient currently sitting upright in the bed, eating his meal. States breathing is improving a lot. Still having abdominal pain at the site of PD catheter. Continues to be on 4 L of oxygen. 06/15. Patient seen and examined. Lab work done this morning showed WBC 8.6, hemoglobin 8.5, sodium 127 potassium 3.8, BUN 35, creatinine 3.47. States he feels much better. Has been weaned off the Levophed 06/16. Patient seen and examined. Patient has been transferred out of ICU, currently in stepdown floor. Patient on 3 L of oxygen. Blood work done this morning showed WBC 9.1, hemoglobin 8.5, sodium 134, potassium 3.4, BUN 29, creatinine 2.67 06/17. Patient seen and examined. Swelling of upper extremities has improved. No shortness of breath at rest, get short of breath on exertion. Currently on 3 L of oxygen 06/18. Patient seen and examined. Cleared by ID for discharge, being discharged on IV vancomycin, prescription given by ID for 10 days. PHYSICAL EXAMINATION: GENERAL: The patient is alert and oriented x3, not in any acute distress. Chronically ill-looking HEENT: Pupils are round and equally reacting to light. EOMI. No scleral icterus. No conjunctival pallor. Normocephalic, atraumatic. No pharyngeal erythema. No thyromegaly. CARDIOVASCULAR: S1 and S2 present. No murmurs, rubs, or gallops. PULMONARY: Diminished breath sounds at the bases bilaterally, no wheezing or crackles. ABDOMEN: Soft, nontender, nondistended, normoactive bowel sounds. No palpable organomegaly. MUSCULOSKELETAL: No joint swelling or deformity. EXTREMITIES: No cyanosis, clubbing, edema lower extremities has improved a lot. NEUROLOGICAL: Gross neurological examination did not reveal any focal deficits. SKIN: No rashes. Dictation was produced using [employer] software. please excuse any grammatical, word or spelling errors. Patient Condition at Discharge: Fair Plan - Discharge Summary Discharge Rx Participant: No New Discharge Prescriptions: New Amiodarone [Cordarone] 200 mg PO DAILY 30 Days #30 tab Cholestyramine (with Sugar) [Questran Packet] 4 gm PO BID@1000,1800 15 Days #30 packet Continue allopurinoL [Zyloprim] 300 mg PO DAILY Acetaminophen Tab [Tylenol] 650 mg PO BID Multivitamins, Thera [Multivitamin (formulary)] 1 tab PO DAILY Lovastatin [Altoprev] 40 mg PO HS Aspirin [Adult Low Dose Aspirin EC] 81 mg PO DAILY glipiZIDE [Glucotrol] 10 mg PO AC-BID Fludrocortisone [Florinef] 0.1 mg PO DAILY Docusate [Colace] 100 mg PO BID Lactulose 2 tsp PO DAILY Omeprazole 40 mg PO DAILY Midodrine HCl [ProAmatine] 10 mg PO QID Sucralfate [Carafate] 1 gm PO BID Ferrous Sulfate [Feosol] 325 mg PO DAILY 30 Days #60 tab Discontinued Amiodarone [Cordarone] 400 mg PO DAILY Torsemide [Demadex] 80 mg PO DAILY Potassium Chloride ER [K-Dur 20] 20 meq PO BID Discharge Medication List allopurinoL [Zyloprim] 300 mg PO DAILY 11/21/14 [History] Acetaminophen Tab [Tylenol] 650 mg PO BID 07/12/16 [History] Multivitamins, Thera [Multivitamin (formulary)] 1 tab PO DAILY 10/03/17 [History] Lovastatin [Altoprev] 40 mg PO HS 05/24/21 [History] Aspirin [Adult Low Dose Aspirin EC] 81 mg PO DAILY 03/29/22 [History] Lactulose 2 tsp PO DAILY 03/29/22 [History] Omeprazole 40 mg PO DAILY 03/29/22 [History] Midodrine HCl [ProAmatine] 10 mg PO QID 02/14/23 [History] glipiZIDE [Glucotrol] 10 mg PO AC-BID 02/14/23 [History] Sucralfate [Carafate] 1 gm PO BID 02/15/23 [History] Docusate [Colace] 100 mg PO BID 05/10/23 [History] Fludrocortisone [Florinef] 0.1 mg PO DAILY 05/10/23 [History] Ferrous Sulfate [Feosol] 325 mg PO DAILY 30 Days #60 tab 05/12/23 [Rx] Amiodarone [Cordarone] 200 mg PO DAILY 30 Days #30 tab 06/18/23 [Rx] Cholestyramine (with Sugar) [Questran Packet] 4 gm PO BID@1000,1800 15 Days #30 packet 06/18/23 [Rx] Follow up Appointment(s)/Referral(s): [facility] [place] [facility] - 06/20/23 11:00 am (MWF @ 11:00AM) Nayan Georges [Primary Care Provider] - 1-2 days Activity/Diet/Wound Care/Special Instructions: Patient vancomycin prescription was given by ID for 10 days Discharge Disposition: TRANSFER TO SNF/ECF
[2023-06-18] MEDS: FERROUS SULFATE 325 MG TAB PO SCH (12:48)
[2023-06-18] MEDS: DOCUSATE 100 MG CAP PO SCH (12:48)
[2023-06-18] MEDS: AMIODARONE 200 MG TAB PO SCH (12:48)
[2023-06-18] MEDS: HEPARIN SODIUM,PORCINE 5,000 UNIT/ML 1 ML VIAL SQ SCH (12:48)
[2023-06-18] MEDS: SUCRALFATE 1 GM TAB PO SCH (12:48)
[2023-06-18] MEDS: CALCIUM ACETATE 667 MG TAB PO SCH ×2 (12:48→13:44)
[2023-06-18] MEDS: ASPIRIN 81 MG PO SCH (12:48)
[2023-06-18] MEDS: allopurinoL 300 MG TAB PO SCH (12:48)
[2023-06-18] MEDS: PANTOPRAZOLE 40 MG/10 ML VIAL IVP SCH (12:49)
[2023-06-18] MEDS: MIDODRINE 5 MG TAB PO SCH ×2 (12:49→13:39)
[2023-06-18 12:58] VITALS: BP 138/64; PULSE 83; RESP 18; TEMP 97.5
--- NOTE | 2023-06-18 14:14 | P.PN ---
Subjective Progress Note Date: 06/18/23 Principal diagnosis: Chest pain. Reevaluated today on 06/13/23, patient remains in the ICU, remains on small dose of norepinephrine at 0.05 mcg/kg/m, patient is now receiving hemodialysis, remains on antibiotics/vancomycin, continues to have minimal right lower quadrant pain. Overall the patient is doing fairly well, and he had his peritoneal dialysis catheter removed a few days ago, and now he has a right IJ's hemodialysis catheter instead. Blood cultures have been negative. WBC count is 7.9 hemoglobin 9 sodium 128 potassium 3.7 ER and is 20 creatinine 2.38 bicarb is 25 chest x-ray this morning showed mostly left lower lobe atelectasis and possibly a small left pleural effusion. Patient was reevaluated today on 06/14/23, remains in the ICU, remains on 4 L nasal cannula, he is on a lower dose of norepinephrine at 0.03 mcg/kg/m still receiving antibiotics for his acute peritonitis and sepsis and septic shock. Remains intermittently on hemodialysis. Patient denies any specific complaints, his CBC is relatively normal hemoglobin is 8.8 basic metabolic profile is normal BUN is 21 creatinine 2.16 sodium is 129. Chest x-ray from yesterday showed cardiomegaly and mild pulmonary vascular congestion with small pleural effusions and atelectasis. Patient was reevaluated today on 06/11/20 remains in the ICU, he is on 3 L nasal cannula, not in distress, patient is receiving hemodialysis during my evaluation. He is now off norepinephrine, blood pressure remains stable, WBC count is 8.6 hemoglobin is 8.5 sodium remains low at 127 BUN is 35 creatinine 3.47 bicarb is 24. Patient remains on vancomycin, and that being addressed by infectious disease on the case. The patient is seen today 06/16/2023 in follow-up on the selective care unit. He is currently sitting up in bed. Awake and alert in no acute distress. He is maintaining O2 saturation in the 90s on 3 L/m per nasal cannula. He's been afebrile. Hemodynamically stable. His blood cultures were positive for staph epidermidis. He is completed vancomycin. He is awaiting placement in subacute rehabilitation. The patient is seen today 06/17/2023 in follow-up on the selective care unit. He is currently resting comfortably in bed. Awake and alert in no acute distress. He continues to maintain good O2 saturations in the 90s on 3 L/m per nasal cannula. He denies any worsening shortness of breath, cough or congestion. Denies any significant abdominal discomfort. Blood sugar 200. Progress note dated 06/18/2023. The patient is seen today in room 382. The plan is for 3 L of fluid removal during hemodialysis. Today, he seems to be tolerating hemodialysis very well according to the hemodialysis nurse. Currently, he's on 5 L nasal cannula. No new labs today other than a glucose of 177, and a random vancomycin level of 21. Objective - Vital Signs Vital signs: Vital Signs Temp 97.5 F L 06/18/23 12:50 Pulse 83 06/18/23 12:50 Resp 18 06/18/23 12:50 BP 138/64 06/18/23 12:50 Pulse Ox 92 L 06/18/23 08:00 FiO2 45 06/18/23 07:15 Intake & Output 06/17/23 06/18/23 06/18/23 18:59 06:59 18:59 Intake Total 480 760 Output Total 3400 Balance 480 -2640 Weight 127 kg Intake: Oral 480 360 Hemodialysis 400 Output: Hemodialysis 3400 Other: Voiding Method Urinal Urinal Urinal # Voids 1 1 # Bowel Movements 1 - Exam No acute distress, oriented 3. Currently on 5 L nasal cannula. HEENT examination is grossly unremarkable. Mucous membranes are moist. No oral lesions. Neck supple. Full range of motion. No adenopathy thyromegaly or neck vein distention. Cardiovascular examination reveals regular rhythm rate. S1-S2 normal. No S3 or S4. No discernible murmur noted. Heart sounds are distant. Heart rate 83 bpm. Lungs reveal scattered rhonchi and crackles. Breath sounds equal bilaterally. No wheezes. 5 L saturation is 92%. Abdomen soft bowel sounds are heard. No masses or tenderness. Extremities are intact. No cyanosis or clubbing. Mild edema is appreciated in the lower extremities. Skin is without rash or lesion. Neurologic examination is brief but nonfocal. - Labs CBC & Chem 7: 06/17/23 19:27 06/17/23 19:27 Labs: Abnormal Lab Results - Last 24 Hours (Table) 06/17/23 06/17/23 06/17/23 Range/Units 16:28 19:27 19:27 RBC 2.82 L (4.30-5.90) m/uL Hgb 8.9 L (13.0-17.5) gm/dL Hct 28.1 L (39.0-53.0) % RDW 18.5 H (11.5-15.5) % Sodium 127 L (137-145) mmol/L Chloride 94 L (98-107) mmol/L BUN 50 H (9-20) mg/dL Creatinine 3.97 H (0.66-1.25) mg/dL Glucose 182 H (74-99) mg/dL POC Glucose (mg/dL) 235 H (70-110) mg/dL Calcium 7.9 L (8.4-10.2) mg/dL 06/17/23 06/18/23 06/18/23 Range/Units 20:03 05:58 11:27 RBC (4.30-5.90) m/uL Hgb (13.0-17.5) gm/dL Hct (39.0-53.0) % RDW (11.5-15.5) % Sodium (137-145) mmol/L Chloride (98-107) mmol/L BUN (9-20) mg/dL Creatinine (0.66-1.25) mg/dL Glucose (74-99) mg/dL POC Glucose (mg/dL) 209 H 150 H 177 H (70-110) mg/dL Calcium (8.4-10.2) mg/dL Assessment and Plan Assessment: Acute peritonitis, sepsis, and septic shock required norepinephrine, recovered. End-stage renal disease, on hemodialysis, he was previously on peritoneal dialysis however this was changed to hemodialysis. Chronic systolic congestive heart failure with ejection fraction of 35%. Hypotension secondary to sepsis and septic shock. Leukocytosis secondary to above. Cardiomyopathy and LV dysfunction. Chronic persistent atrial fibrillation. History of end-stage renal disease. Severe pulmonary hypertension. Type 2 diabetes with diabetic nephropathy. History of sick sinus syndrome requiring permanent pacemaker implantation. Plan: Plan dated 06/18/2023. The patient is undergoing hemodialysis today. He is tolerating it very well according to the hemodialysis nurse. The patient will likely have about 3 L removed today. Currently, he's on 5 L nasal cannula. Labs, x-rays, and medications are reviewed. The patient's blood pressure is much more stable. We will continue to follow the patient, and make recommendations along the way. The patient is [facility] a resident at a [facility], in [place], [place]. Overall prognosis remains guarded. Time with Patient: Less than 30
--- NOTE | 2023-06-18 22:26 | PN ---
PROGRESS NOTE SUBJECTIVE: A 78-year-old gentleman who is awaiting transfer to snf, has history of permanent pacemaker, cardiomyopathy, and atrial fibrillation. He is not on anticoagulation because of multiple comorbidities, has end-stage renal disease on hemodialysis. OBJECTIVE: GENERAL: This morning, the patient denies any chest pain or difficulty in breathing. VITAL SIGNS: Blood pressures are somewhat normal at 138/64. NECK: There is no jugular venous distention. CHEST: Reveals good air entry bilaterally. HEART: Reveals first and second heart sounds. No gallop. EXTREMITIES: Exam of extremities reveals bilateral 1+ edema. Peripheral pulses are felt. LABORATORY DATA: Labs show a potassium of 4.6, BUN of 50, creatinine is 3.9, hemoglobin is 8.9. ASSESSMENT: 1. Permanent atrial fibrillation. 2. Cardiomyopathy. 3. Status post permanent pacemaker. 4. End-stage renal disease, on hemodialysis. PLAN: The patient will continue current medications. MMODL / IJN: [id number] /
== END 2023-06-18 14:40 | DRG 907 ==
LOC: EC 20:56 → 3SCARD 06-05 00:29 → OBSVTOIN 06-05 10:26 → 3SCARD 06-05 13:28 → 2SICU 06-10 19:47 → 3SCARD 06-16 01:21
PROVIDERS: ADMIT Hospitalist; ATTEND Hospitalist
PROC: B5191ZZ Fluoroscopy of Inferior Vena Cava using Low Osmolar Contrast (ICD-10-PCS; 2023-06-10)
PROC: B5161ZZ Fluoroscopy of Right Subclavian Vein using Low Osmolar Contrast (ICD-10-PCS; 2023-06-10)
PROC: B5131ZZ Fluoroscopy of Right Jugular Veins using Low Osmolar Contrast (ICD-10-PCS; 2023-06-10)
PROC: 3E033XZ Introduction of Vasopressor into Peripheral Vein, Percutaneous Approach (ICD-10-PCS; 2023-06-10)
PROC: 5A1D70Z Performance of Urinary Filtration, Intermittent, Less than 6 Hours Per Day (ICD-10-PCS; 2023-06-11)
PROC: 0WPG03Z Removal of Infusion Device from Peritoneal Cavity, Open Approach (ICD-10-PCS; principal; 2023-06-11 07:30)
PROC: 3E0G76Z Introduction of Nutritional Substance into Upper GI, Via Natural or Artificial Opening (ICD-10-PCS; 2023-06-16)
PROC: 0JH63XZ Insertion of Tunneled Vascular Access Device into Chest Subcutaneous Tissue and Fascia, Percutaneous Approach (ICD-10-PCS; 2023-06-18)
PROC: 02HV33Z Insertion of Infusion Device into Superior Vena Cava, Percutaneous Approach (ICD-10-PCS; 2023-06-18)
DX: T85.71XA Infection and inflammatory reaction due to peritoneal dialysis catheter, initial encounter (principal); A41.1 Sepsis due to other specified staphylococcus; R65.21 Severe sepsis with septic shock; K65.1 Peritoneal abscess; K65.0 Generalized (acute) peritonitis; N18.6 End stage renal disease; N17.9 Acute kidney failure, unspecified; I13.2 Hypertensive heart and chronic kidney disease with heart failure and with stage 5 chronic kidney disease, or end stage renal disease; I50.22 Chronic systolic (congestive) heart failure; I42.9 Cardiomyopathy, unspecified; E87.1 Hypo-osmolality and hyponatremia; I48.21 Permanent atrial fibrillation; R18.8 Other ascites; I27.20 Pulmonary hypertension, unspecified; I49.5 Sick sinus syndrome; E11.22 Type 2 diabetes mellitus with diabetic chronic kidney disease; J44.9 Chronic obstructive pulmonary disease, unspecified; Z99.2 Dependence on renal dialysis; D63.1 Anemia in chronic kidney disease; I95.89 Other hypotension; E66.9 Obesity, unspecified; E78.5 Hyperlipidemia, unspecified; I45.9 Conduction disorder, unspecified; K57.90 Diverticulosis of intestine, part unspecified, without perforation or abscess without bleeding; G47.33 Obstructive sleep apnea (adult) (pediatric); M89.8X9 Other specified disorders of bone, unspecified site; E83.42 Hypomagnesemia; E86.1 Hypovolemia; K21.9 Gastro-esophageal reflux disease without esophagitis; K44.9 Diaphragmatic hernia without obstruction or gangrene; Y71.1 Therapeutic (nonsurgical) and rehabilitative cardiovascular devices associated with adverse incidents; Z68.39 Body mass index [BMI] 39.0-39.9, adult; Z87.891 Personal history of nicotine dependence; Z87.19 Personal history of other diseases of the digestive system; Z79.899 Other long term (current) drug therapy; Z79.82 Long term (current) use of aspirin; Z79.84 Long term (current) use of oral hypoglycemic drugs; Z79.52 Long term (current) use of systemic steroids; Z88.8 Allergy status to other drugs, medicaments and biological substances; Z86.14 Personal history of Methicillin resistant Staphylococcus aureus infection; Z95.0 Presence of cardiac pacemaker; Z90.49 Acquired absence of other specified parts of digestive tract
CPT/HCPCS: 36410; 36415; 36558; 71045; 74176; 76937; 77001; 80048; 80053; 80202; 82533; 83605; 83690; 83735; 83880; 84100; 84145; 84484; 85025; 85027; 85610; 85730; 86140; 86706; 87040; 87070; 87075; 87077; 87186; 87205; 87340; 89050; 90935; 93005; 94660; 94760; 96361; 96365; 96366; 96368; 96375; 99291

== ENCOUNTER 2023-07-07 17:03 | Inpatient (IN) | payer OTHER, MEDICARE ==
[2023-07-07 17:38] LABS: Anisocytosis Slight; Basophils # (A) 0.1 k/uL (0-0.2); Basophils % (A) 1 %; Eosinophils # (A) 0.2 k/uL (0-0.7); Eosinophils % (A) 2 %; HCT 32.3 % (39.0-53.0); HGB 9.7 gm/dL (13.0-17.5); Hypochromasia Marked; Lymphocytes # (A) 1.4 k/uL (1.0-4.8); Lymphocytes % (A) 13 %; MCHC 30.1 g/dL (31.0-37.0); MCV 103.1 fL (80.0-100.0); Macrocytosis Moderate; Mean Platelet Volume 7.5; Monocytes # (A) 0.6 k/uL (0-1.0); Monocytes % (A) 6 %; Neutrophils # (A) 8.1 k/uL (1.3-7.7); Neutrophils % (A) 77 %; Platelet Count 290 k/uL (150-450); Poikilocytosis Slight; RBC 3.14 m/uL (4.30-5.90); RDW 19.2 % (11.5-15.5); WBC 10.5 k/uL (3.8-10.6)
--- NOTE | 2023-07-07 17:49 | XR ---
EXAMINATION TYPE: XR chest 2V DATE OF EXAM: 07/07/2023 COMPARISON: 09/28/2021 HISTORY: Weakness TECHNIQUE: Frontal and lateral views of the chest are obtained. FINDINGS: There is a dialysis catheter entering the right jugular vein and terminating in the SVC/RA junction. There is a 2-lead cardiac pacemaker. There is marked cardiomegaly and small bilateral pleural effusions. There is no airspace/consolidativ e opacity. There is no pneumothorax. IMPRESSION: Marked cardiomegaly with small bilateral pleural effusions. Findings could indicate mild CHF. Clinica l correlation recommended.
[2023-07-07 17:59] LABS: NT-Pro-B-Type Natriuretic Pept 7560 pg/mL
[2023-07-07 18:02] LABS: ALT 27 U/L (4-49); AST 48 U/L (17-59); African American GFR (CKD) 19 (>60 ml/min/1.73 sqM); Albumin 3.9 g/dL (3.5-5.0); Alkaline Phosphatase 180 U/L (38-126); Anion Gap 13 mmol/L; Blood Urea Nitrogen 38 mg/dL (9-20); Calcium 9.2 mg/dL (8.4-10.2); Carbon Dioxide 25 mmol/L (22-30); Chloride 94 mmol/L (98-107); Glucose 141 mg/dL (74-99); Non-African American GFR(CKD) 16 (>60 ml/min/1.73 sqM); Potassium 5.1 mmol/L (3.5-5.1); Sodium 132 mmol/L (137-145); Total Bilirubin 0.6 mg/dL (0.2-1.3); Total Protein 7.9 g/dL (6.3-8.2)
--- NOTE | 2023-07-07 18:05 | ED ---
General Adult HPI - General Chief complaint: Weakness Stated complaint: Weakness Time Seen by Provider: 07/07/23 17:05 Source: patient, RN notes reviewed Mode of arrival: EMS Limitations: no limitations - History of Present Illness Initial comments: 78-year-old male with a past medical history significant for atrial fibrillation, COPD, diabetes mellitus, end-stage renal disease, dialysis presents emergency department with a chief complaint of weakness. Patient reports progressive weakness over the last couple of weeks. He was in an acute rehab facility where he was discharged home yesterday. He reports he has been taking home for a day and a half however has been experiencing progressive weakness upon exertion and feels he is unable to take care of himself. He does have a slight cough that he describes chronic in nature. Denies any known fevers headache, sore throat, chest pain, abdominal pain, nausea or vomiting. Patient did recently have a switch from peritoneal dialysis to hemodialysis. Patient is dialyzed Sunday insulin IV. He was dialyzed yesterday. On arrival patient's oxygen saturation is 90%. Patient is on 3 L of oxygen supplementation at home. - Related Data Home Medications Medication Instructions Recorded Confirmed allopurinoL [Zyloprim] 300 mg PO DAILY 11/21/14 07/07/23 Acetaminophen Tab [Tylenol] 650 mg PO BID 07/12/16 07/07/23 Multivitamins, Thera [Multivitamin 1 tab PO DAILY 10/03/17 07/07/23 (formulary)] Lovastatin [Altoprev] 40 mg PO HS 05/24/21 07/07/23 Aspirin [Adult Low Dose Aspirin EC] 81 mg PO DAILY 03/29/22 07/07/23 Omeprazole 40 mg PO DAILY 03/29/22 07/07/23 Midodrine HCl [ProAmatine] 10 mg PO QID PRN 02/14/23 07/07/23 glipiZIDE [Glucotrol] 10 mg PO DAILY@1400 02/14/23 07/07/23 Sucralfate [Carafate] 1 gm PO BID 02/15/23 07/07/23 Docusate [Colace] 100 mg PO BID 05/10/23 07/07/23 Fludrocortisone [Florinef] 0.1 mg PO DAILY 05/10/23 07/07/23 L.acidoph,Paracasei, B.lactis 1 cap PO DAILY 07/07/23 07/07/23 [Probiotic] Torsemide [Demadex] 80 mg PO DAILY 07/07/23 07/07/23 glipiZIDE [Glucotrol] 20 mg PO DAILY@0800 07/07/23 07/07/23 Previous Rx's Medication Instructions Recorded Ferrous Sulfate [Feosol] 325 mg PO DAILY 30 Days #60 tab 05/12/23 Amiodarone [Cordarone] 200 mg PO DAILY 30 Days #30 tab 06/18/23 Allergies Allergy/AdvReac Type Severity Reaction Status Date / Time lisinopril AdvReac Mild Cough Verified 07/07/23 19:16 Review of Systems ROS Statement: Those systems with pertinent positive or pertinent negative responses have been documented in the HPI. ROS Other: All systems not noted in ROS Statement are negative. Past Medical History Past Medical History: Atrial Fibrillation, COPD, Diabetes Mellitus, Dialysis, GERD/Reflux, Hyperlipidemia, Hypertension, Osteoarthritis (OA), Renal Disease, Sleep Apnea/CPAP/BIPAP, Thyroid Disorder Additional Past Medical History / Comment(s): O2 3L per nasal cannula. Dialysis MOWEFR. Cardiomyopathy. Gout. Constipation. 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 hemodialysis cath, peritoneal dialysis Past Anesthesia/Blood Transfusion Reactions: No Reported Reaction Type of Cardiac Device: Permanent Pacemaker Device Placement Date:: 10/17/2012 Past Psychological History: No Psychological Hx Reported Smoking Status: Former smoker Past Alcohol Use History: None Reported Past Drug Use History: None Reported - Past Family History Father History Unknown: Yes Additional Family Medical History / Comment(s): "hardening of the arteries" Mother History Unknown: Yes Additional Family Medical History / Comment(s): "water in the lungs" at 95. General Exam - General Exam Comments Initial Comments: General: Alert, in no acute distress Head: atraumatic normocephalic. Eyes PERRL, EOMI intact, mucous membranes moist Respiratory: Lungs clear to auscultation bilaterally Cardiovascular: Heart rate regular rate and rhythm Chest: Dialysis catheter located in the right upper chest without surrounding erythema. Abdominal: Soft without guarding or rebound, multiple abdominal scars that appear well healed Extremities: Normal inspection with full range of motion and normal capillary refill, 1+ pedal edema bilaterally Neuroogic: alert and oriented 3, CN II-XII intact, able to ambulate with steady gait Skin: warm dry and intact with normal color Limitations: no limitations Course Vital Signs 07/07/23 07/07/23 07/07/23 17:05 18:48 19:00 Temperature 97.6 F Pulse Rate 80 60 63 Pulse Rate [ Left] Respiratory 18 18 18 Rate Blood Pressure 103/59 80/52 82/50 Blood Pressure [Left Arm] O2 Sat by Pulse 90 L 97 99 Oximetry 07/07/23 07/07/23 19:30 20:12 Temperature Pulse Rate 60 Pulse Rate [ 60 Left] Respiratory 18 18 Rate Blood Pressure 121/70 Blood Pressure 119/73 [Left Arm] O2 Sat by Pulse 96 96 Oximetry - Reevaluation(s) Reevaluation #1: 07/07/23 19:15 patient reevaluated. Resting Comfortably. agreeable with the plan for admission 07/07/23 19:38 Case discussed with [facility] who agrees and accepts the patient for placement EKG Findings - EKG Comments: EKG Findings:: I interpreted the following: EKG performed at 17:05 and electronically paced. Rate is 77 bpm KS interval 345, QRS duration 61, QT/QTc 339/371 Medical Decision Making - Medical Decision Making Was pt. sent in by a medical professional or institution (, PA, CHECK PROCESSING CLERK, urgent care, hospital, or alf...) When possible be specific @ -[No] Did you speak to anyone other than the patient for history (EMS, parent, family, police, friend...)? What history was obtained from this source @ -Granddaughter Did you review nursing and triage notes (agree or disagree)? Why? @ -[I reviewed and agree with nursing and triage notes] Were old charts reviewed (outside hosp., previous admission, EMS record, old EKG, old radiological studies, urgent care reports/EKG's, alf records)? Report findings @ -yes 06/19 Differential Diagnosis (chest pain, altered mental status, abdominal pain women, abdominal pain men, vaginal bleeding, weakness, fever, dyspnea, syncope, headache, dizziness, GI bleed, back pain, seizure, CVA, palpatations, mental health, musculoskeletal)? @ - EKG interpreted by me (3pts min.). @ -[As above] X-rays interpreted by me (1pt min.). @ -Small bilateral pleural effusions with significant cardiomegaly CT interpreted by me (1pt min.). @ -[None done] U/S interpreted by me (1pt. min.). @ -[None done] What testing was considered but not performed or refused? (CT, X-rays, U/S, labs)? Why? @ -[None] What meds were considered but not given or refused? Why? @ -[None] Did you discuss the management of the patient with other professionals (professionals i.e. , PA, CHECK PROCESSING CLERK, lab, RT, psych nurse, perinatal social worker, certified juvenile probation officer, teacher, tax revenue officer, heel caser)? Give summary @ [facility] who agrees and accepts the patient for admission Was smoking cessation discussed for >3mins.? @ -[No] Was critical care preformed (if so, how long)? @ -[No] Were there social determinants of health that impacted care today? How? (Homelessness, low income, unemployed, alcoholism, drug addiction, trans portation, low edu. Level, literacy, decrease access to med. care, senior care, rehab)? @ -[No] Was there de-escalation of care discussed even if they declined (Discuss DNR or withdrawal of care, Hospice)? DNR status @ -[N What co-morbidities impacted this encounter? (DM, HTN, Smoking, COPD, CAD, Cancer, CVA, ARF, Chemo, Hep., AIDS, mental health diagnosis, sleep apnea, morbid obesity)? @ -DM, HTN, COPD, ESRD Was patient admitted / discharged? Hospital course, mention meds given and rout e, prescriptions, significant lab abnormalities, going to OR and other pertinent info. @ -Admission. This is a 78-year-old male who presents the emergency department with a chief complaint of generalized weakness and failure to thrive.. Patient had a thorough history and physical performed. Patient oxygen saturation initially 90%. He was placed on 3L nasal oxygen. Oxygen maintains to be 96-97%. Patient resting comfortably. Patient laboratory studies which reveal WBC 10.5, hemoglobin 9.7, INR 1.0., Sodium 10.8, INR 1, BUN 38, CReatinine 3.44, BNP 7500. Patient will be admitted for further placement. PT and OT were consulted. Consult to Andreia, heel caser for further recommendation and management. Case discussed with [facility] agrees and accepts the patient for admission. Case is discussed with Dr. Schafer, ED attending who agrees with plan of care Undiagnosed new problem with uncertain prognosis? @ -[No] Drug Therapy requiring intensive monitoring for toxicity (Heparin, Nitro, Ins ulin, Cardizem)? @ -[No] Were any procedures done? @ -[No] Diagnosis/symptom? @ -Weakness - Failure to Thrive Acute, or Chronic, or Acute on Chronic? @ -Acute Uncomplicated (without systemic symptoms) or Complicated (systemic symptoms)? @ Uncomplicated Side effects of treatment? @ -[No] Exacerbation, Progression, or Severe Exacerbation? @ -[No] Poses a threat to life or bodily function? How? (Chest pain, USA, MA, pneumonia, PE, COPD, DKA, ARF, appy, cholecystitis, CVA, Diverticulitis, Homicidal, Suicidal, threat to staff... and all critical care pts) @ -yes, Increase fall risk, failure to thrive - Lab Data Result diagrams: 07/07/23 17:30 07/07/23 17:30 Lab Results 07/07/23 07/07/23 07/07/23 Range/Units 17:30 17:30 17:30 WBC 10.5 (3.8-10.6) k/uL RBC 3.14 L (4.30-5.90) m/uL Hgb 9.7 L (13.0-17.5) gm/dL Hct 32.3 L (39.0-53.0) % MCV 103.1 H (80.0-100.0) fL MCH 31.0 (25.0-35.0) pg MCHC 30.1 L (31.0-37.0) g/dL RDW 19.2 H (11.5-15.5) % Plt Count 290 (150-450) k/uL MPV 7.5 Neutrophils % 77 % Lymphocytes % 13 % Monocytes % 6 % Eosinophils % 2 % Basophils % 1 % Neutrophils # 8.1 H (1.3-7.7) k/uL Lymphocytes # 1.4 (1.0-4.8) k/uL Monocytes # 0.6 (0-1.0) k/uL Eosinophils # 0.2 (0-0.7) k/uL Basophils # 0.1 (0-0.2) k/uL Hypochromasia Marked Poikilocytosis Slight Anisocytosis Slight Macrocytosis Moderate PT (10.0-12.5) sec INR (<1.2) APTT (22.0-30.0) sec Sodium 132 L (137-145) mmol/L Potassium 5.1 (3.5-5.1) mmol/L Chloride 94 L (98-107) mmol/L Carbon Dioxide 25 (22-30) mmol/L Anion Gap 13 mmol/L BUN 38 H (9-20) mg/dL Creatinine 3.44 H (0.66-1.25) mg/dL Est GFR (CKD-EPI)AfAm 19 (>60 ml/min/1.73 sqM) Est GFR (CKD-EPI)NonAf 16 (>60 ml/min/1.73 sqM) Glucose 141 H (74-99) mg/dL Calcium 9.2 (8.4-10.2) mg/dL Total Bilirubin 0.6 (0.2-1.3) mg/dL AST 48 (17-59) U/L ALT 27 (4-49) U/L Alkaline Phosphatase 180 H (38-126) U/L NT-Pro-B Natriuret Pep 7560 pg/mL Total Protein 7.9 (6.3-8.2) g/dL Albumin 3.9 (3.5-5.0) g/dL Influenza Type A (PCR) Not Detected (Not Detectd) Influenza Type B (PCR) Not Detected (Not Detectd) RSV (PCR) Not Detected (Not Detectd) SARS-CoV-2 (PCR) Not Detected (Not Detectd) 07/07/23 Range/Units 17:30 WBC (3.8-10.6) k/uL RBC (4.30-5.90) m/uL Hgb (13.0-17.5) gm/dL Hct (39.0-53.0) % MCV (80.0-100.0) fL MCH (25.0-35.0) pg MCHC (31.0-37.0) g/dL RDW (11.5-15.5) % Plt Count (150-450) k/uL MPV Neutrophils % % Lymphocytes % % Monocytes % % Eosinophils % % Basophils % % Neutrophils # (1.3-7.7) k/uL Lymphocytes # (1.0-4.8) k/uL Monocytes # (0-1.0) k/uL Eosinophils # (0-0.7) k/uL Basophils # (0-0.2) k/uL Hypochromasia Poikilocytosis Anisocytosis Macrocytosis PT 10.8 (10.0-12.5) sec INR 1.0 (<1.2) APTT 25.2 (22.0-30.0) sec Sodium (137-145) mmol/L Potassium (3.5-5.1) mmol/L Chloride (98-107) mmol/L Carbon Dioxide (22-30) mmol/L Anion Gap mmol/L BUN (9-20) mg/dL Creatinine (0.66-1.25) mg/dL Est GFR (CKD-EPI)AfAm (>60 ml/min/1.73 sqM) Est GFR (CKD-EPI)NonAf (>60 ml/min/1.73 sqM) Glucose (74-99) mg/dL Calcium (8.4-10.2) mg/dL Total Bilirubin (0.2-1.3) mg/dL AST (17-59) U/L ALT (4-49) U/L Alkaline Phosphatase (38-126) U/L NT-Pro-B Natriuret Pep pg/mL Total Protein (6.3-8.2) g/dL Albumin (3.5-5.0) g/dL Influenza Type A (PCR) (Not Detectd) Influenza Type B (PCR) (Not Detectd) RSV (PCR) (Not Detectd) SARS-CoV-2 (PCR) (Not Detectd) Disposition Clinical Impression: Weakness, Failure to thrive Disposition: ADMITTED IP TO THIS [facility] Condition: Fair Time of Disposition: 19:39
[2023-07-07 18:16] LABS: Partial Thromboplastin Time 25.2 sec (22.0-30.0); Prothrombin Time 10.8 sec (10.0-12.5)
[2023-07-07] MEDS ORDERED: SODIUM CHLORIDE 0.9% 500 ML 500 ML IV ONE (19:00)
[2023-07-07] MEDS: MIDODRINE 5 MG TAB PO SCH (19:30)
[2023-07-07] MEDS ORDERED: NALOXONE 0.4 MG/ML 1 ML VIAL IV PRN (19:41)
[2023-07-07] MEDS ORDERED: NON FORMULARY DRUG (Midodrine Hcl [Proamatine] 10 MG Tablet) PO PRN (21:34)
[2023-07-07] MEDS ORDERED: DEXTROSE 50% SYRINGE 50 ML IVP PRN ×2 (21:36)
[2023-07-08 05:04] LABS: Glucose,Whole Blood 121 mg/dL (70-110)
[2023-07-08] MEDS: INSULIN ASPART (NovoLOG) 100 UNIT/ML VIAL SQ SCH ×4 (05:14→20:52)
[2023-07-08] MEDS: MIDODRINE 5 MG TAB PO SCH ×3 (06:34→17:06)
[2023-07-08] MEDS: PANTOPRAZOLE 40 MG TABLET PO SCH (08:30)
[2023-07-08] MEDS: TORSEMIDE 20 MG TAB PO SCH (08:30)
[2023-07-08] MEDS: SUCRALFATE 1 GM TAB PO SCH ×2 (08:30→20:52)
[2023-07-08] MEDS: LACTOBACILLUS ACIDOPHILUS/PECT 1 EACH CAPSULE PO SCH (08:31)
[2023-07-08] MEDS: ASPIRIN 81 MG PO SCH (08:32)
[2023-07-08] MEDS: AMIODARONE 200 MG TAB PO SCH (08:32)
[2023-07-08] MEDS: ACETAMINOPHEN TAB 325 MG TAB PO SCH ×2 (08:32→20:52)
[2023-07-08] MEDS: MULTIVITAMINS, THERA 1 EACH TAB PO SCH (08:32)
[2023-07-08] MEDS: DOCUSATE 100 MG CAP PO SCH ×2 (08:33→20:52)
[2023-07-08] MEDS: allopurinoL 300 MG TAB PO SCH (08:34)
[2023-07-08] MEDS: glipiZIDE 10 MG TAB PO SCH ×2 (08:35→13:35)
[2023-07-08] MEDS: FERROUS SULFATE 325 MG TAB PO SCH (08:40)
[2023-07-08] MEDS ORDERED: FLUDROCORTISONE 0.1 MG TAB PO SCH (09:00)
[2023-07-08 11:24] LABS: Glucose,Whole Blood 160 mg/dL (70-110)
--- NOTE | 2023-07-08 11:36 | P.NPCON ---
History of Present Illness - Reason for Consult end stage renal disease - History of Present Illness Patient is a 78-year-old male with end-stage renal disease currently maintained on hemodialysis on a Sunday schedule. Patient was recently transitioned to hemodialysis after an episode of peritonitis and patient being unable to continue with PD at home. He is admitted to the hospital with complaints of increased weakness. Patient tolerated his dialysis well yesterday, however when he reached home he was not able to get out of the car and was brought into the hospital. Patient states his leg swelling has increased. Significant increase in shortness of breath. No complaints of chest pain fever chills nausea or vomiting. Blood pressure has been on the lower side and patient is maintained on midodrine as outpatient. He has been volume overloaded and is being challenged for cookie mated dry weight as outpatient with increase UF as tolerated. Review of Systems As per HPI Past Medical History Past Medical History: Atrial Fibrillation, COPD, Diabetes Mellitus, Dialysis, GERD/Reflux, Hyperlipidemia, Hypertension, Osteoarthritis (OA), Renal Disease, Sleep Apnea/CPAP/BIPAP, Thyroid Disorder Additional Past Medical History / Comment(s): O2 3L per nasal cannula. Dialysis MOWEFR. Cardiomyopathy. Gout. Constipation. 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 hemodialysis cath, peritoneal dialysis Past Anesthesia/Blood Transfusion Reactions: No Reported Reaction Type of Cardiac Device: Permanent Pacemaker Device Placement Date:: 10/17/2012 Past Psychological History: No Psychological Hx Reported Smoking Status: Former smoker Past Alcohol Use History: None Reported Past Drug Use History: None Reported - Past Family History Father History Unknown: Yes Additional Family Medical History / Comment(s): "hardening of the arteries" Mother History Unknown: Yes Additional Family Medical History / Comment(s): "water in the lungs" at 95. Medications and Allergies Home Medications Medication Instructions Recorded Confirmed Type allopurinoL [Zyloprim] 300 mg PO DAILY 11/21/14 07/07/23 History Acetaminophen Tab [Tylenol] 650 mg PO BID 07/12/16 07/07/23 History Multivitamins, Thera [Multivitamin 1 tab PO DAILY 10/03/17 07/07/23 History (formulary)] Lovastatin [Altoprev] 40 mg PO HS 05/24/21 07/07/23 History Aspirin [Adult Low Dose Aspirin EC] 81 mg PO DAILY 03/29/22 07/07/23 History Omeprazole 40 mg PO DAILY 03/29/22 07/07/23 History Midodrine HCl [ProAmatine] 10 mg PO QID PRN 02/14/23 07/07/23 History glipiZIDE [Glucotrol] 10 mg PO DAILY@1400 02/14/23 07/07/23 History Sucralfate [Carafate] 1 gm PO BID 02/15/23 07/07/23 History Docusate [Colace] 100 mg PO BID 05/10/23 07/07/23 History Fludrocortisone [Florinef] 0.1 mg PO DAILY 05/10/23 07/07/23 History Ferrous Sulfate [Feosol] 325 mg PO DAILY 30 Days #60 tab 05/12/23 07/07/23 Rx Amiodarone [Cordarone] 200 mg PO DAILY 30 Days #30 tab 06/18/23 07/07/23 Rx L.acidoph,Paracasei, B.lactis 1 cap PO DAILY 07/07/23 07/07/23 History [Probiotic] Torsemide [Demadex] 80 mg PO DAILY 07/07/23 07/07/23 History glipiZIDE [Glucotrol] 20 mg PO DAILY@0800 07/07/23 07/07/23 History Allergies Allergy/AdvReac Type Severity Reaction Status Date / Time lisinopril AdvReac Mild Cough Verified 07/07/23 19:16 Physical Exam Vitals: Vital Signs Temp Pulse Pulse Resp BP BP Pulse Ox 07/08/23 07:10 97.3 F L 61 19 104/65 93 L 07/08/23 01:20 97.7 F 66 18 121/55 99 07/07/23 20:12 60 18 121/70 96 07/07/23 19:30 60 18 119/73 96 07/07/23 19:00 63 18 82/50 99 07/07/23 18:48 60 18 80/52 97 07/07/23 17:05 97.6 F 80 18 103/59 90 L Intake and Output 07/07/23 07/08/23 07/08/23 22:59 06:59 14:59 Other: Voiding Method Diaper Incontinent # Voids 0 Weight 117.934 kg Patient is awake, comfortable, no acute distress Examination of the heart S1 and S2 Examination of the lungs bilateral breath sounds are heard Abdomen is obese nontender Examination of lower extremities shows edema 3+ bilaterally upper and lower extremities ELECTRICAL RESEARCH ENGINEER exam grossly intact Results - Lab Results Most recent lab results Calcium 9.2 mg/dL (8.4-10.2) 07/07/23 17:30 07/07/23 17:30 07/07/23 17:30 Assessment and Plan Assessment: 1. End-stage renal disease maintained on hemodialysis on a Sunday schedule. Recently switched from PD to hemodialysis due to PD peritonitis and patient being unable to continue with peritoneal dialysis at home. 2. Volume overload 3. Generalized debility 4. Anemia of chronic disease 5. Chronic systolic CHF with EF of 35-40% with severe pulmonary hypertension 6. Chronic persistent A. fib Plan: Hemodialysis in a.m. Increase UF as tolerated Continue with midodrine Add Aranesp Recommend to DC Anitaf given the significant edema. Continue with torsemide Thank you for the consultation. We will continue to follow the patient with you during his hospitalization.
[2023-07-08 11:46] LABS: Basophils # (A) 0.08 X 10*3/uL (0.00-0.10); Basophils % (A) 0.9 %; Eosinophils # (A) 0.15 X 10*3/uL (0.04-0.35); Eosinophils % (A) 1.6 %; HCT 29.9 % (39.6-50.0); HGB 9.4 g/dL (13.0-17.0); Lymphocytes % (A) 15.3 %; MCH 31.8 pg (27.0-32.0); MCHC 31.4 g/dL (32.0-37.0); Mean Platelet Volume 10.2 FL (9.5-12.2); Monocytes # (A) 1.07 X 10*3/uL (0.20-1.00); Monocytes % (A) 11.7 %; NRBC Per 100 WBC 0.05 X 10*3/uL (0.00-0.01); Neutrophils # (A) 6.33 X 10*3/uL (1.80-7.70); Neutrophils % (A) 69.3 %; Platelet Count 276 X 10*3/uL (140-440); RBC 2.96 X 10*6/uL (4.40-5.60); RDW 19.2 % (11.5-14.5); WBC 9.14 X 10*3/uL (4.50-10.00)
--- NOTE | 2023-07-08 13:06 | P.HPIM ---
History of Present Illness H&P Date: 07/08/23 History of present illness; patient 78-year-old gentleman with past medical his tory significant for atrial fibrillation, COPD, diabetes mellitus, end-stage renal disease presented to the hospital for complaining of generalized weakness. Patient was admitted last month Hospital at which time was found to have peritonitis secondary to peritoneal dialysis catheter, during that admission he was switched to hemodialysis and was discharged to subacute rehab with IV antibiotics. Patient stated that he was discharged from rehab couple of days ago, patient has been noticing that for the last week he has been gradually getting weak. Patient denies any fever or chills. There is no complaint of lightheadedness or dizziness. Patient is complaining of shortness of breath on exertion. At home patient was unable to take care of himself, patient having a hard time doing his ADLs and IDL's. Because generalized weakness, patient came back to the ER Initial lab work done in the ER showed WBC 10.5, hemoglobin 9.7, platelet count 290, sodium 132, potassium 5.1, BUN/creatinine 38, creatinine 3.44 glucose 141, AST 48, ALT 27, Influenza A not detected Influenza B not detected RSV not detected COVID-19 not detected EKG done in the ER showed heart rate of 77, pacemaker rhythm seen Chest x-ray done in the ER mild cardiomegaly with small bilateral pleural effusions. Suspicious of mild CHF Patient admitted to internal medicine service REVIEW OF SYSTEMS: CONSTITUTIONAL: As mentioned above HEENT: No recent visual problems or hearing problems. Denied any sore throat. CARDIOVASCULAR: No chest pain, orthopnea, PND, no palpitations, no syncope. PULMONARY: No shortness of breath, no cough, no hemoptysis. GASTROINTESTINAL: No diarrhea, no nausea, no vomiting, no abdominal pain. NEUROLOGICAL: No headaches, no weakness, no numbness. HEMATOLOGICAL: Denies any bleeding or petechiae. GENITOURINARY: Denies any burning micturition, frequency, or urgency. MUSCULOSKELETAL/RHEUMATOLOGICAL: Denies any joint pain, swelling, or any muscle pain. ENDOCRINE: Denies any polyuria or polydipsia. The rest of the 14-point review of systems is negative. PHYSICAL EXAMINATION: GENERAL: The patient is alert and oriented x3, not in any acute distress. Well developed, well nourished. HEENT: Pupils are round and equally reacting to light. EOMI. No scleral icterus. No conjunctival pallor. Normocephalic, atraumatic. No pharyngeal erythema. No thyromegaly. CARDIOVASCULAR: S1 and S2 present. No murmurs, rubs, or gallops. PULMONARY: Chest is clear to auscultation, no wheezing or crackles. ABDOMEN: Soft, nontender, nondistended, normoactive bowel sounds. No palpable organomegaly. MUSCULOSKELETAL: No joint swelling or deformity. EXTREMITIES: 1+ pitting edema of lower extremities bilaterally, left upper extremity also swollen NEUROLOGICAL: Gross neurological examination did not reveal any focal deficits. SKIN: No rashes. Assessment and plan Generalized weakness Chronic hypoxemic respiratory failure COPD End-stage renal disease, currently on hemodialysis Chronic systolic congestive heart failure with ejection fraction of 35% Cardiomyopathy and LV dysfunction Chronic persistent atrial fibrillation Severe pulmonary hypertension Type 2 diabetes with diabetic nephropathy History of sick sinus syndrome requiring permanent pacemaker implantation Monitor vital signs Monitor CBC Monitor CMP Continue telemetry monitoring Strict I's and O's, daily weights Continue renal diet Continue amiodarone Continue Lipitor Continue Florinef and midodrine Cardiology consulted Nephrology consulted for maintenance dialysis. PT OT consult Labs and medication were reviewed.. Continue same treatment. Continue with symptomatic treatment. Resume home medication. Monitor labs and vitals. DVT and GI prophylaxis. Further recommendations as per clinical course of the patient Dictation was produced using [employer] dictation software. please excuse any grammatical, word or spelling errors. Past Medical History Past Medical History: Atrial Fibrillation, COPD, Diabetes Mellitus, Dialysis, G ERD/Reflux, Hyperlipidemia, Hypertension, Osteoarthritis (OA), Renal Disease, Sleep Apnea/CPAP/BIPAP, Thyroid Disorder Additional Past Medical History / Comment(s): O2 3L per nasal cannula. Dialysis MOWEFR. Cardiomyopathy. Gout. Constipation. 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 hemodialysis cath, peritoneal dialysis Past Anesthesia/Blood Transfusion Reactions: No Reported Reaction Type of Cardiac Device: Permanent Pacemaker Device Placement Date:: 10/17/2012 Past Psychological History: No Psychological Hx Reported Smoking Status: Former smoker Past Alcohol Use History: None Reported Past Drug Use History: None Reported - Past Family History Father History Unknown: Yes Additional Family Medical History / Comment(s): "hardening of the arteries" Mother History Unknown: Yes Additional Family Medical History / Comment(s): "water in the lungs" at 95. Medications and Allergies Home Medications Medication Instructions Recorded Confirmed Type allopurinoL [Zyloprim] 300 mg PO DAILY 11/21/14 07/07/23 History Acetaminophen Tab [Tylenol] 650 mg PO BID 07/12/16 07/07/23 History Multivitamins, Thera [Multivitamin 1 tab PO DAILY 10/03/17 07/07/23 History (formulary)] Lovastatin [Altoprev] 40 mg PO HS 05/24/21 07/07/23 History Aspirin [Adult Low Dose Aspirin EC] 81 mg PO DAILY 03/29/22 07/07/23 History Omeprazole 40 mg PO DAILY 03/29/22 07/07/23 History Midodrine HCl [ProAmatine] 10 mg PO QID PRN 02/14/23 07/07/23 History glipiZIDE [Glucotrol] 10 mg PO DAILY@1400 02/14/23 07/07/23 History Sucralfate [Carafate] 1 gm PO BID 02/15/23 07/07/23 History Docusate [Colace] 100 mg PO BID 05/10/23 07/07/23 History Fludrocortisone [Florinef] 0.1 mg PO DAILY 05/10/23 07/07/23 History Ferrous Sulfate [Feosol] 325 mg PO DAILY 30 Days #60 tab 05/12/23 07/07/23 Rx Amiodarone [Cordarone] 200 mg PO DAILY 30 Days #30 tab 06/18/23 07/07/23 Rx L.acidoph,Paracasei, B.lactis 1 cap PO DAILY 07/07/23 07/07/23 History [Probiotic] Torsemide [Demadex] 80 mg PO DAILY 07/07/23 07/07/23 History glipiZIDE [Glucotrol] 20 mg PO DAILY@0800 07/07/23 07/07/23 History Allergies Allergy/AdvReac Type Severity Reaction Status Date / Time lisinopril AdvReac Mild Cough Verified 07/07/23 19:16 Physical Exam Vitals: Vital Signs Temp Pulse Pulse Resp BP BP Pulse Ox 07/08/23 07:10 97.3 F L 61 19 104/65 93 L 07/08/23 01:20 97.7 F 66 18 121/55 99 07/07/23 20:12 60 18 121/70 96 07/07/23 19:30 60 18 119/73 96 07/07/23 19:00 63 18 82/50 99 07/07/23 18:48 60 18 80/52 97 07/07/23 17:05 97.6 F 80 18 103/59 90 L Intake and Output 07/07/23 07/08/23 07/08/23 22:59 06:59 14:59 Other: Voiding Method Diaper Incontinent # Voids 0 Weight 117.934 kg Results CBC & Chem 7: 07/08/23 04:26 07/07/23 17:30 Labs: Abnormal Lab Results - Last 24 Hours (Table) 07/07/23 07/07/23 07/08/23 Range/Units 17:30 17:30 05:03 RBC 3.14 L (4.30-5.90) m/uL Hgb 9.7 L (13.0-17.5) gm/dL Hct 32.3 L (39.0-53.0) % MCV 103.1 H (80.0-100.0) fL MCHC 30.1 L (31.0-37.0) g/dL RDW 19.2 H (11.5-15.5) % Neutrophils # 8.1 H (1.3-7.7) k/uL Sodium 132 L (137-145) mmol/L Chloride 94 L (98-107) mmol/L BUN 38 H (9-20) mg/dL Creatinine 3.44 H (0.66-1.25) mg/dL Glucose 141 H (74-99) mg/dL POC Glucose (mg/dL) 121 H (70-110) mg/dL Alkaline Phosphatase 180 H (38-126) U/L Thrombosis Risk Factor Assmnt - Choose All That Apply Each Risk Factor Represents 3 Points: Age 75 years or older Thrombosis Risk Factor Assessment Total Risk Factor Score: 3 Thrombosis Risk Factor Assessment Level: Moderate Risk
[2023-07-08 13:10] LABS: BUN/Creat Ratio 10.43 Ratio (12.00-20.00); Blood Urea Nitrogen 38.6 mg/dL (9.0-27.0); Calcium 8.7 mg/dL (8.7-10.3); Carbon Dioxide 22.4 mmol/L (21.6-31.8); Chloride 94 mmol/L (96-109); Glucose 90 mg/dL (70-110); Potassium 5.8 mmol/L (3.5-5.5); Sodium 130 mmol/L (135-145)
[2023-07-08 15:53] LABS: Appearance,Urine Cloudy (Clear); Bacteria,Urine Occasional /hpf; Bilirubin,Urine 1+ (Negative); Blood,Urine Trace (Negative); Budding Yeast,Urine Rare /hpf; Color,Urine Yellow; Glucose,Urine (UA) Negative (Negative); Hyaline Casts,Urine 28 /lpf (0-2); Hyphae Yeast, Urine Rare /hpf; Ketones,Urine Negative (Negative); Leukocyte Esterase,Urine Large (Negative); Mucus,Urine Rare /hpf; Nitrite,Urine Negative (Negative); Protein,Urine Trace (Negative); RBC,Urine 13 /hpf (0-5); Specific Gravity,Urine 1.023 (1.001-1.035); Squamous Epithelial Cell,Urine 12 /hpf (0-4); WBC,Urine 27 /hpf (0-5)
[2023-07-08 17:04] LABS: Glucose,Whole Blood 170 mg/dL (70-110)
[2023-07-08 20:28] LABS: Glucose,Whole Blood 222 mg/dL (70-110)
[2023-07-08] MEDS: ATORVASTATIN 10 MG TAB PO SCH (20:52)
[2023-07-09 05:57] LABS: Glucose,Whole Blood 103 mg/dL (70-110)
[2023-07-09] MEDS: INSULIN ASPART (NovoLOG) 100 UNIT/ML VIAL SQ SCH ×4 (06:13→21:10)
[2023-07-09] MEDS: ACETAMINOPHEN TAB 325 MG TAB PO SCH ×2 (06:15→21:10)
[2023-07-09] MEDS: MIDODRINE 5 MG TAB PO SCH ×3 (06:15→17:48)
--- NOTE | 2023-07-09 09:33 | P.CRDCN ---
History of Present Illness History of present illness: HISTORY OF PRESENT ILLNESS: This is a 78-year-old male with a past medical history significant for end-stage renal disease previously on peritoneal dialysis with recent peritonitis and transitioned to hemodialysis, congestive heart failure, persistent atrial fibrillation, hypertension, diabetes, and permanent pacemaker implantation. Patient follows in the office with Dr. Witt. We have been asked to see the patient in consultation for CHF. Patient examined at the bedside. Patient states he had hemodialysis on Sunday with removal of 4.5 L. He states he tolerated hemodialysis well. He states that his is went to lunch afterwards and when they got home he was so weak he was unable to get out of the car. He also reports shortness of breath. He reports a cough with occasional yellow sputum. Denies fever or chills. He also reports lower extremity edema and swelling of his left upper extremity, which he states is unusual for him. He denies any chest pain or pressure. the patient states he was previously on anticoagulation with Eliquis but was hospitalized at one point at [facility] and was found to have blood in his stool and he was taken off of Eliquis. He states he has not had any episodes since then of bleeding or anemia. * EKG reveals atrial paced rhythm with underlying atrial fibrillation * Chest xray marked cardiomegaly with small bilateral pleural effusions. Findings could indicate mild CHF. * Laboratory data: WBC 9.14. Hemoglobin 9.4. Platelet count 276. Sodium 130. Potassium 5.8. BUN 38.6. Creatinine 3.7. ProBNP 7560. * Current home cardiac medications include Demadex 80 mg daily, lovastatin 40 mg at night, aspirin 81 mg daily, amiodarone 200 mg daily * Most recent echocardiogram obtained in February 2023 revealed ejection fraction 35-40%, severe pulmonary hypertension, mild MR, mild TR * patient underwent Lexiscan stress test in November 2020 with no evidence of reversible ischemia REVIEW OF SYSTEMS: At the time of my exam: CONSTITUTIONAL: Denies fever or chills. HEENT: Denies blurred vision, vision changes, or eye pain. Denies hemoptysis CARDIOVASCULAR: Denies chest pain. Denies orthopnea. Denies PND. Denies palpitations RESPIRATORY: Denies shortness of breath. GASTROINTESTINAL: Denies abdominal pain. Denies nausea or vomiting. HEMATOLOGIC: Denies bleeding disorders. GENITOURINARY: Denies any blood in urine. SKIN: Denies pruitis. Denies rash. PHYSICAL EXAM: VITAL SIGNS: Reviewed. GENERAL: Well-developed in no acute distress. HEENT: Head is normocephalic. Pupils are equal, round. Sclerae anicteric. Mucous membranes of the mouth are moist. Neck supple. No JVD or thyromegaly LUNGS: Respirations even and unlabored. Lungs with crackles at the bases and decreased breath sounds in right lower lobe HEART: Regular rate and rhythm. S1 and S2 heard. ABDOMEN: Soft. Nondistended. Nontender. EXTREMITIES: Normal range of motion. No clubbing or cyanosis. Peripheral pulses intact. 2+ bilateral pitting edema of lower extremities with chronic skin discoloration. Edema noted to upper bilateral extremities, left worse than right, NEUROLOGIC: Awake and alert. Oriented x 3. ASSESSMENT: Generalized weakness Shortness of breath End-stage renal disease on hemodialysis Acute on chronic heart failure with reduced ejection fraction, 35-40%, Volume overload secondary to chronic kidney disease Persistent atrial fibrillation Cardiomyopathy, ejection fraction 35-40%, ischemic versus nonischemic, new onset in February 2023 History of permanent pacemaker implantation Known history of left subclavian vein occlusion Hypertension Hyperlipidemia History of hypotension, on Midodrine Diabetes Morbid obesity: BMI 36.3 Hyperkalemia PLAN: Obtain limited echo to assess LV function Patient was previously placed on amiodarone in the office in March 2023 in anticipation for electrical cardioversion. We will continue with amiodarone at this time and patient can be reevaluated for cardioversion on an outpatient ba sis. Begin Eliquis 5mg BID. Monitor for s/s of bleeding. Monitor hemoglobin. Discontinue Aspirin Resume home cardiac medications Obtain left upper extremity Doppler to rule out DVT Hemodialysis per nephrology Further recommendations pending patient's course Nurse practitioner note has been reviewed by physician. Signing provider agrees with the documented findings, assessment, and plan of care. Past Medical History Past Medical History: Atrial Fibrillation, COPD, Diabetes Mellitus, Dialysis, GERD/Reflux, Hyperlipidemia, Hypertension, Osteoarthritis (OA), Renal Disease, Sleep Apnea/CPAP/BIPAP, Thyroid Disorder Additional Past Medical History / Comment(s): O2 3L per nasal cannula. Dialysis MOWEFR. Cardiomyopathy. Gout. Constipation. 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 hemodialysis cath, peritoneal dialysis Past Anesthesia/Blood Transfusion Reactions: No Reported Reaction Type of Cardiac Device: Permanent Pacemaker Device Placement Date:: 10/17/2012 Past Psychological History: No Psychological Hx Reported Smoking Status: Former smoker Past Alcohol Use History: None Reported Past Drug Use History: None Reported - Past Family History Father History Unknown: Yes Additional Family Medical History / Comment(s): "hardening of the arteries" Mother History Unknown: Yes Additional Family Medical History / Comment(s): "water in the lungs" at 95. Medications and Allergies Home Medications Medication Instructions Recorded Confirmed Type allopurinoL [Zyloprim] 300 mg PO DAILY 11/21/14 07/07/23 History Acetaminophen Tab [Tylenol] 650 mg PO BID 07/12/16 07/07/23 History Multivitamins, Thera [Multivitamin 1 tab PO DAILY 10/03/17 07/07/23 History (formulary)] Lovastatin [Altoprev] 40 mg PO HS 05/24/21 07/07/23 History Aspirin [Adult Low Dose Aspirin EC] 81 mg PO DAILY 03/29/22 07/07/23 History Omeprazole 40 mg PO DAILY 03/29/22 07/07/23 History Midodrine HCl [ProAmatine] 10 mg PO QID PRN 02/14/23 07/07/23 History glipiZIDE [Glucotrol] 10 mg PO DAILY@1400 02/14/23 07/07/23 History Sucralfate [Carafate] 1 gm PO BID 02/15/23 07/07/23 History Docusate [Colace] 100 mg PO BID 05/10/23 07/07/23 History Fludrocortisone [Florinef] 0.1 mg PO DAILY 05/10/23 07/07/23 History Ferrous Sulfate [Feosol] 325 mg PO DAILY 30 Days #60 tab 05/12/23 07/07/23 Rx Amiodarone [Cordarone] 200 mg PO DAILY 30 Days #30 tab 06/18/23 07/07/23 Rx L.acidoph,Paracasei, B.lactis 1 cap PO DAILY 07/07/23 07/07/23 History [Probiotic] Torsemide [Demadex] 80 mg PO DAILY 07/07/23 07/07/23 History glipiZIDE [Glucotrol] 20 mg PO DAILY@0800 07/07/23 07/07/23 History Allergies Allergy/AdvReac Type Severity Reaction Status Date / Time lisinopril AdvReac Mild Cough Verified 07/07/23 19:16 Physical Exam Vitals: Vital Signs Temp Pulse Resp BP Pulse Ox FiO2 07/09/23 09:01 92 L 21 07/09/23 07:22 97.6 F 64 19 133/70 92 L 07/09/23 01:27 97.5 F L 63 17 114/64 93 L 07/09/23 01:10 3 07/08/23 18:00 97.4 F L 60 23 105/58 94 L 07/08/23 14:00 117/60 07/08/23 13:48 97.4 F L 60 19 95 Intake and Output 07/08/23 07/09/23 07/09/23 22:59 06:59 14:59 Other: Voiding Method Diaper Incontinent # Voids 1 # Bowel Movements 1 Results 07/08/23 04:26 07/08/23 04:26 CBC 07/08/23 Range/Units 04:26 WBC 9.14 (4.50-10.00) X 10*3/uL RBC 2.96 L (4.40-5.60) X 10*6/uL Hgb 9.4 L (13.0-17.0) g/dL Hct 29.9 L (39.6-50.0) % Plt Count 276 (140-440) X 10*3/uL Comprehensive Metabolic Panel 07/08/23 Range/Units 04:26 Sodium 130 L (135-145) mmol/L Potassium 5.8 H (3.5-5.5) mmol/L Chloride 94 L (96-109) mmol/L Carbon Dioxide 22.4 (21.6-31.8) mmol/L BUN 38.6 H (9.0-27.0) mg/dL Creatinine 3.7 H (0.6-1.5) mg/dL Glucose 90 (70-110) mg/dL Calcium 8.7 (8.7-10.3) mg/dL Current Medications Generic Name Dose Route Start Last Admin Trade Name Freq PRN Reason Stop Dose Admin Acetaminophen 650 mg 07/08/23 09:00 07/09/23 06:15 Acetaminophen Tab 325 Mg Tab PO 650 mg BID SERGEY Administration Allopurinol 300 mg 07/08/23 09:00 07/08/23 08:34 Allopurinol 300 Mg Tab PO 300 mg DAILY SERGEY Administration Amiodarone HCl 200 mg 07/08/23 09:00 07/08/23 08:32 Amiodarone 200 Mg Tab PO 200 mg DAILY SERGEY Administration Apixaban 5 mg 07/09/23 09:00 Apixaban 5 Mg Tab PO BID [facility] Protocol Aspirin 81 mg 07/08/23 09:00 07/08/23 08:32 Aspirin 81 Mg PO 81 mg DAILY SERGEY Administration Atorvastatin Calcium 10 mg 07/08/23 21:00 07/08/23 20:52 Atorvastatin 10 Mg Tab PO 10 mg HS SERGEY Administration Dextrose/Water 25 ml 07/07/23 21:36 Dextrose 50% Syringe 50 Ml IVP PER PROTOCOL PRN Hypoglycemia Protocol Dextrose/Water 50 ml 07/07/23 21:36 Dextrose 50% Syringe 50 Ml IVP PER PROTOCOL PRN Hypoglycemia Protocol Docusate Sodium 100 mg 07/08/23 09:00 07/08/23 20:52 Docusate 100 Mg Cap PO 100 mg BID SERGEY Administration Ferrous Sulfate 325 mg 07/08/23 09:00 07/08/23 08:40 Ferrous Sulfate 325 Mg Tab PO 325 mg DAILY SERGEY Administration Glipizide 10 mg 07/08/23 14:00 07/08/23 13:35 Glipizide 10 Mg Tab PO 10 mg DAILY@1400 SERGEY Administration Glipizide 20 mg 07/08/23 08:00 07/08/23 08:35 Glipizide 10 Mg Tab PO 20 mg DAILY@0800 [facility] Administration Insulin Aspart 0 unit 07/08/23 07:30 07/09/23 06:13 Insulin Aspart (Novolog) 100 Unit/Ml Vial SQ Not Given ACHS [facility] Protocol Lactobacillus Acidophilus 1 each 07/08/23 09:00 07/08/23 08:31 Lactobacillus Acidophilus/Pect 1 Each Capsule PO 1 each DAILY SERGEY Administration Midodrine 10 mg 07/08/23 12:30 07/09/23 06:15 Midodrine 5 Mg Tab PO 10 mg AC-TID SERGEY Administration Multivitamins 1 each 07/08/23 09:00 07/08/23 08:32 Multivitamins, Thera 1 Each Tab PO 1 each DAILY SERGEY Administration Naloxone HCl 0.2 mg 07/07/23 19:41 Naloxone 0.4 Mg/Ml 1 Ml Vial IV Q2M PRN Opioid Reversal Pantoprazole Sodium 40 mg 07/08/23 09:00 07/08/23 08:30 Pantoprazole 40 Mg Tablet PO 40 mg DAILY SERGEY Administration Sucralfate 1 gm 07/08/23 09:00 07/08/23 20:52 Sucralfate 1 Gm Tab PO 1 gm BID SERGEY Administration Torsemide 80 mg 07/08/23 09:00 07/08/23 08:30 Torsemide 20 Mg Tab PO 80 mg DAILY SERGEY Administration Intake and Output 07/08/23 07/09/23 07/09/23 22:59 06:59 14:59 Other: Voiding Method Diaper Incontinent # Voids 1 # Bowel Movements 1 07/08/23 04:26 07/08/23 04:26
--- NOTE | 2023-07-09 09:42 | US ---
EXAMINATION TYPE: US venous doppler duplex UE LT DATE OF EXAM: 07/09/2023 COMPARISON: NONE CLINICAL INDICATION: Male, 78 years old with history of swelling, r/o DVT; Left arm swelling. No red ness. On aspirin. Dialysis patient. SIDE PERFORMED: Left Left Arm: Negative for DVT IMPRESSION: Grayscale, color doppler, spectral doppler imaging performed of the deep veins of the upper extremiti es. There is normal flow, compressibility and vascular waveforms.
[2023-07-09] MEDS: LACTOBACILLUS ACIDOPHILUS/PECT 1 EACH CAPSULE PO SCH (10:06)
[2023-07-09] MEDS: AMIODARONE 200 MG TAB PO SCH (10:06)
[2023-07-09] MEDS: PANTOPRAZOLE 40 MG TABLET PO SCH (10:06)
[2023-07-09] MEDS: DOCUSATE 100 MG CAP PO SCH ×2 (10:07→21:10)
[2023-07-09] MEDS: TORSEMIDE 20 MG TAB PO SCH (10:07)
[2023-07-09] MEDS: MULTIVITAMINS, THERA 1 EACH TAB PO SCH (10:08)
[2023-07-09] MEDS: allopurinoL 300 MG TAB PO SCH (10:08)
[2023-07-09] MEDS: FERROUS SULFATE 325 MG TAB PO SCH (10:09)
[2023-07-09] MEDS: APIXABAN 5 MG TAB PO SCH ×2 (10:09→21:10)
[2023-07-09] MEDS: ASPIRIN 81 MG PO SCH (10:09)
[2023-07-09] MEDS: glipiZIDE 10 MG TAB PO SCH ×2 (10:10→14:14)
--- NOTE | 2023-07-09 11:15 | P.PN ---
Subjective Patient is seen for follow-up for end-stage renal disease. He scheduled for hemodialysis today. Blood pressure is improved however it's being checked on the thigh. Patient is maintained on midodrine. Objective - Vital Signs Vital signs: Vital Signs Temp 97.6 F 07/09/23 07:22 Pulse 64 07/09/23 07:22 Resp 19 07/09/23 07:22 BP 133/70 07/09/23 07:22 Pulse Ox 92 L 07/09/23 09:01 FiO2 21 07/09/23 09:01 Intake & Output 07/08/23 07/09/23 07/09/23 18:59 06:59 18:59 Other: Voiding Method Diaper Incontinent # Voids 1 # Bowel Movements 1 - Exam atient is awake, comfortable, no acute distress Alert oriented 3 Examination of the heart S1 and S2 Examination of the lungs bilateral breath sounds are heard Abdomen is obese nontender Examination of lower extremities shows edema 3+ bilaterally upper and lower extremities [employer] exam grossly intact - Labs CBC & Chem 7: 07/08/23 04:26 07/08/23 04:26 Labs: Abnormal Lab Results - Last 24 Hours (Table) 07/08/23 07/08/23 07/08/23 Range/Units 04:26 04:26 04:26 RBC 2.96 L (4.40-5.60) X 10*6/uL Hgb 9.4 L (13.0-17.0) g/dL Hct 29.9 L (39.6-50.0) % MCV 101.0 H (80.0-97.0) FL MCHC 31.4 L (32.0-37.0) g/dL RDW 19.2 H (11.5-14.5) % Immature Gran # 0.11 H (0.00-0.04) X 10*3/uL Monocytes # 1.07 H (0.20-1.00) X 10*3/uL NRBC/100 WBC Diff 0.05 H (0.00-0.01) X 10*3/uL Sodium 130 L (135-145) mmol/L Potassium 5.8 H (3.5-5.5) mmol/L Chloride 94 L (96-109) mmol/L Anion Gap 13.60 H (4.00-12.00) mmol/L BUN 38.6 H (9.0-27.0) mg/dL Creatinine 3.7 H (0.6-1.5) mg/dL Est GFR (CKD-EPI) 16 L (>=60) BUN/Creatinine Ratio 10.43 L (12.00-20.00) Ratio POC Glucose (mg/dL) (70-110) mg/dL Hemoglobin A1c 6.4 H (<=6.0) % Urine Protein (Negative) Urine Blood (Negative) Urine Bilirubin (Negative) Ur Leukocyte Esterase (Negative) Urine RBC (0-5) /hpf Urine WBC (0-5) /hpf Ur Squamous Epith Cells (0-4) /hpf Urine Bacteria (None) /hpf Hyaline Casts (0-2) /lpf Urine Mucus (None) /hpf Urine Yeast (Budding) (None) /hpf 07/08/23 07/08/23 07/08/23 Range/Units 11:23 15:18 17:02 RBC (4.40-5.60) X 10*6/uL Hgb (13.0-17.0) g/dL Hct (39.6-50.0) % MCV (80.0-97.0) FL MCHC (32.0-37.0) g/dL RDW (11.5-14.5) % Immature Gran # (0.00-0.04) X 10*3/uL Monocytes # (0.20-1.00) X 10*3/uL NRBC/100 WBC Diff (0.00-0.01) X 10*3/uL Sodium (135-145) mmol/L Potassium (3.5-5.5) mmol/L Chloride (96-109) mmol/L Anion Gap (4.00-12.00) mmol/L BUN (9.0-27.0) mg/dL Creatinine (0.6-1.5) mg/dL Est GFR (CKD-EPI) (>=60) BUN/Creatinine Ratio (12.00-20.00) Ratio POC Glucose (mg/dL) 160 H 170 H (70-110) mg/dL Hemoglobin A1c (<=6.0) % Urine Protein Trace H (Negative) Urine Blood Trace H (Negative) Urine Bilirubin 1+ H (Negative) Ur Leukocyte Esterase Large H (Negative) Urine RBC 13 H (0-5) /hpf Urine WBC 27 H (0-5) /hpf Ur Squamous Epith Cells 12 H (0-4) /hpf Urine Bacteria Occasional H (None) /hpf Hyaline Casts 28 H (0-2) /lpf Urine Mucus Rare H (None) /hpf Urine Yeast (Budding) Rare H (None) /hpf 07/08/23 Range/Units 20:26 RBC (4.40-5.60) X 10*6/uL Hgb (13.0-17.0) g/dL Hct (39.6-50.0) % MCV (80.0-97.0) FL MCHC (32.0-37.0) g/dL RDW (11.5-14.5) % Immature Gran # (0.00-0.04) X 10*3/uL Monocytes # (0.20-1.00) X 10*3/uL NRBC/100 WBC Diff (0.00-0.01) X 10*3/uL Sodium (135-145) mmol/L Potassium (3.5-5.5) mmol/L Chloride (96-109) mmol/L Anion Gap (4.00-12.00) mmol/L BUN (9.0-27.0) mg/dL Creatinine (0.6-1.5) mg/dL Est GFR (CKD-EPI) (>=60) BUN/Creatinine Ratio (12.00-20.00) Ratio POC Glucose (mg/dL) 222 H (70-110) mg/dL Hemoglobin A1c (<=6.0) % Urine Protein (Negative) Urine Blood (Negative) Urine Bilirubin (Negative) Ur Leukocyte Esterase (Negative) Urine RBC (0-5) /hpf Urine WBC (0-5) /hpf Ur Squamous Epith Cells (0-4) /hpf Urine Bacteria (None) /hpf Hyaline Casts (0-2) /lpf Urine Mucus (None) /hpf Urine Yeast (Budding) (None) /hpf Assessment and Plan Assessment: 1. End-stage renal disease maintained on hemodialysis on a Sunday schedule. Recently switched from PD to hemodialysis due to PD peritonitis and patient being unable to continue with peritoneal dialysis at home. 2. Volume overload 3. Generalized debility 4. Anemia of chronic disease 5. Chronic systolic CHF with EF of 35-40% with severe pulmonary hypertension 6. Chronic persistent A. fib Plan: Hemodialysis today and in a.m. Increase UF as tolerated Continue with midodrine Continue Aranesp Maintain off of Florinef due to significant edema Continue with torsemide
[2023-07-09 12:35] LABS: Glucose,Whole Blood 217 mg/dL (70-110)
--- NOTE | 2023-07-09 13:00 | CA ---
Transthoracic Echo Report Name: Tristian Galloway Age: 78 Gender: M : 1945 Exam Date: 07/09/2023 10:44 Exam Location: [facility] Ht (in): 71 Wt (lb): 260 Ordering Physician: Daja Haji Attending/Referring Phys: [id number], Raissa Labor Arbitrator Hearing Office Milvia Luna RDCS Procedure CPT: Indications: LV function Cardiac Hx: Pacemaker Technical Quality: Technically difficult study Contrast 1: Total Dose (mL): Contrast 2: Total Dose (mL): MEASUREMENTS (Male / Female) Normal Values DOPPLER TR Peak Velocity 282.7 cm/s TR Peak Gradient 32.0 mmHg Right Ventricular Systolic Press 47.0 mmHg FINDINGS Left Ventricle Left ventricular ejection fraction is estimated at 50-55%. Borderline left ventricular systolic function Right Ventricle Moderate pulmonary hypertension. Right ventricular systolic pressure estimated at 47 mm hg. a wire is noted in the right ventricle Right Atrium Left Atrium Mitral Valve Aortic Valve Tricuspid Valve Moderate to severe tricuspid regurgitation. Pulmonic Valve Pericardium No pericardial effusion. Aorta CONCLUSIONS Technically difficult study. Limited echo. Left ventricular systolic function borderline normal Moderate to severe tricuspid regurgitation with moderate pulmonary hypertension A wire is noted in the right ventricle Previewed by: Dr. Mandy Ray MD (Electronically Signed) Final Date: 09 July 2023 12:59
[2023-07-09 16:28] LABS: Glucose,Whole Blood 121 mg/dL (70-110)
[2023-07-09 20:51] LABS: Glucose,Whole Blood 174 mg/dL (70-110)
[2023-07-09] MEDS: ATORVASTATIN 10 MG TAB PO SCH (21:10)
[2023-07-09] MEDS: SUCRALFATE 1 GM TAB PO SCH (21:10)
[2023-07-10 06:10] LABS: Glucose,Whole Blood 88 mg/dL (70-110)
[2023-07-10] MEDS: INSULIN ASPART (NovoLOG) 100 UNIT/ML VIAL SQ SCH ×4 (06:14→21:19)
[2023-07-10] MEDS: ACETAMINOPHEN TAB 325 MG TAB PO SCH ×2 (06:55→21:19)
[2023-07-10] MEDS: MIDODRINE 5 MG TAB PO SCH ×3 (06:55→16:57)
[2023-07-10 08:35] LABS: Basophils # (A) 0.09 X 10*3/uL (0.00-0.10); Basophils % (A) 0.9 %; Eosinophils # (A) 0.21 X 10*3/uL (0.04-0.35); Eosinophils % (A) 2.1 %; HCT 27.2 % (39.6-50.0); HGB 8.7 g/dL (13.0-17.0); Lymphocytes # (A) 1.47 X 10*3/uL (0.90-5.00); MCH 30.7 pg (27.0-32.0); MCV 96.1 FL (80.0-97.0); Mean Platelet Volume 9.3 FL (9.5-12.2); Monocytes # (A) 0.91 X 10*3/uL (0.20-1.00); Monocytes % (A) 9.3 %; NRBC Per 100 WBC 0.03 X 10*3/uL (0.00-0.01); Neutrophils # (A) 7.01 X 10*3/uL (1.80-7.70); Neutrophils % (A) 71.8 %; Platelet Count 231 X 10*3/uL (140-440); RBC 2.83 X 10*6/uL (4.40-5.60); RDW 18.7 % (11.5-14.5); WBC 9.78 X 10*3/uL (4.50-10.00)
[2023-07-10 09:15] LABS: Blood Urea Nitrogen 34.4 mg/dL (9.0-27.0); Calcium 8.7 mg/dL (8.7-10.3); Carbon Dioxide 22.4 mmol/L (21.6-31.8); Chloride 96 mmol/L (96-109); Glucose 107 mg/dL (70-110); Potassium 4.7 mmol/L (3.5-5.5); Sodium 134 mmol/L (135-145)
[2023-07-10] MEDS: AMIODARONE 200 MG TAB PO SCH (10:17)
[2023-07-10] MEDS: DOCUSATE 100 MG CAP PO SCH ×2 (10:17→21:19)
[2023-07-10] MEDS: APIXABAN 5 MG TAB PO SCH ×2 (10:17→21:18)
[2023-07-10] MEDS: FERROUS SULFATE 325 MG TAB PO SCH (10:17)
[2023-07-10] MEDS: allopurinoL 300 MG TAB PO SCH (10:17)
[2023-07-10] MEDS: SUCRALFATE 1 GM TAB PO SCH ×2 (10:17→21:19)
[2023-07-10] MEDS: PANTOPRAZOLE 40 MG TABLET PO SCH (10:17)
[2023-07-10] MEDS: LACTOBACILLUS ACIDOPHILUS/PECT 1 EACH CAPSULE PO SCH (10:17)
[2023-07-10] MEDS: TORSEMIDE 20 MG TAB PO SCH (10:18)
[2023-07-10] MEDS: glipiZIDE 10 MG TAB PO SCH ×2 (10:18→16:57)
[2023-07-10 11:05] LABS: Glucose,Whole Blood 130 mg/dL (70-110)
--- NOTE | 2023-07-10 11:10 | P.PN ---
Subjective Progress Note Date: 07/09/23 History of present illness; patient 78-year-old gentleman with past medical history significant for atrial fibrillation, COPD, diabetes mellitus, end-stage renal disease presented to the hospital for complaining of generalized weakness. Patient was admitted last month Hospital at which time was found to have peritonitis secondary to peritoneal dialysis catheter, during that admission he was switched to hemodialysis and was discharged to subacute rehab with IV antibiotics. Patient stated that he was discharged from rehab couple of days ago, patient has been noticing that for the last week he has been gradually getting weak. Patient denies any fever or chills. There is no complaint of lightheadedness or dizziness. Patient is complaining of shortness of breath on exertion. At home patient was unable to take care of himself, patient having a hard time doing his ADLs and IDL's. Because generalized weakness, patient came back to the ER Initial lab work done in the ER showed WBC 10.5, hemoglobin 9.7, platelet count 290, sodium 132, potassium 5.1, BUN/creatinine 38, creatinine 3.44 glucose 141, AST 48, ALT 27, Influenza A not detected Influenza B not detected RSV not detected COVID-19 not detected EKG done in the ER showed heart rate of 77, pacemaker rhythm seen Chest x-ray done in the ER mild cardiomegaly with small bilateral pleural effusions. Suspicious of mild CHF Patient admitted to internal medicine service 07/09/2023 Patient is currently sitting on the side of the bed. Awake alert and oriented 3. Still having generalized weakness and feels slightly better. Currently r equiring 3 L oxygen with nasal cannula. No complaints of nausea or vomiting. Afebrile. No cough or sputum production. Patient is supposed to get hemodialysis today. Blood sugar is controlled. Laboratory data reviewed. REVIEW OF SYSTEMS: CONSTITUTIONAL: As mentioned above HEENT: No recent visual problems or hearing problems. Denied any sore throat. CARDIOVASCULAR: No chest pain, orthopnea, PND, no palpitations, no syncope. PULMONARY: No shortness of breath, no cough, no hemoptysis. GASTROINTESTINAL: No diarrhea, no nausea, no vomiting, no abdominal pain. NEUROLOGICAL: No headaches, no weakness, no numbness. HEMATOLOGICAL: Denies any bleeding or petechiae. GENITOURINARY: Denies any burning micturition, frequency, or urgency. MUSCULOSKELETAL/RHEUMATOLOGICAL: Denies any joint pain, swelling, or any muscle pain. ENDOCRINE: Denies any polyuria or polydipsia. The rest of the 14-point review of systems is negative. PHYSICAL EXAMINATION: GENERAL: The patient is alert and oriented x3, not in any acute distress. Well developed, well nourished. HEENT: Pupils are round and equally reacting to light. EOMI. No scleral icterus. No conjunctival pallor. Normocephalic, atraumatic. No pharyngeal erythema. No thyromegaly. CARDIOVASCULAR: S1 and S2 present. No murmurs, rubs, or gallops. PULMONARY: Bibasilar minimal crackles and coarse sounds., no wheezing or crackles. Nonlabored breathing ABDOMEN: Soft, nontender, nondistended, normoactive bowel sounds. No palpable organomegaly. MUSCULOSKELETAL: No joint swelling or deformity. EXTREMITIES: 1+ pitting edema of lower extremities bilaterally, left upper extremity also swollen NEUROLOGICAL: Gross neurological examination did not reveal any focal deficits. SKIN: No rashes. Assessment and plan Generalized weakness Chronic hypoxemic respiratory failure requiring 3 L oxygen by nasal cannula COPD not in exacerbation End-stage renal disease, currently on hemodialysis Sunday and Sunday Acute on Chronic systolic congestive heart failure with ejection fraction of 35% Cardiomyopathy and LV dysfunction Chronic persistent atrial fibrillation Chronic hypotension on Midodrin Severe pulmonary hypertension Type 2 diabetes with diabetic nephropathy History of sick sinus syndrome requiring permanent pacemaker implantation Plan: Monitor vital signs Monitor CBC Monitor CMP Continue telemetry monitoring Strict I's and O's, daily weights Continue renal diet. Encourage oral intake Continue amiodarone Continue Lipitor Continue Florinef and midodrine Cardiology consulted. Limited echo was done. Patient will be continued on amiodarone and cardiology recommends to reevaluate for cardioversion as an outpatient basis. Started on anticoagulation with eliquis. DC'd aspirin. Nephrology consulted for maintenance dialysis. PT OT consulted Labs and medication were reviewed.. Continue with symptomatic treatment. R esume home medication. Monitor labs and vitals. DVT and GI prophylaxis. Further recommendations as per clinical course of the patient Dictation was produced using manetch dictation software. please excuse any grammatical, word or spelling errors. Objective - Vital Signs Vital signs: Vital Signs Temp 97.1 F L 07/09/23 20:00 Pulse 60 07/09/23 20:00 Resp 19 07/09/23 20:00 BP 112/71 07/09/23 20:00 Pulse Ox 92 L 07/09/23 20:00 FiO2 3 07/09/23 21:49 Intake & Output 07/09/23 07/09/23 07/10/23 06:59 18:59 06:59 Intake Total 400 Output Total 3201 Balance -2801 Intake: Hemodialysis 400 Output: Stool 1 Hemodialysis 3200 Other: Voiding Method Diaper Incontinent # Voids 1 # Bowel Movements 1 - Labs CBC & Chem 7: 07/10/23 04:00 07/10/23 04:00 Labs: Abnormal Lab Results - Last 24 Hours (Table) 07/09/23 07/09/23 07/09/23 Range/Units 12:34 16:26 20:50 POC Glucose (mg/dL) 217 H 121 H 174 H (70-110) mg/dL Assessment and Plan Time with Patient: Greater than 30
--- NOTE | 2023-07-10 11:34 | P.PN ---
Subjective HISTORY OF PRESENT ILLNESS: This is a 78-year-old male with a past medical history significant for end-stage renal disease previously on peritoneal dialysis with recent peritonitis and transitioned to hemodialysis, congestive heart failure, persistent atrial fibrillation, hypertension, diabetes, and permanent pacemaker implantation. Patient follows in the office with Dr. Witt. We have been asked to see the patient in consultation for CHF. Patient examined at the bedside. Patient states he had hemodialysis on Sunday with removal of 4.5 L. He states he tolerated hemodialysis well. He states that his is went to lunch afterwards and when they got home he was so weak he was unable to get out of the car. He also reports shortness of breath. He reports a cough with occasional yellow sputum. Denies fever or chills. He also reports lower extremity edema and swelling of his left upper extremity, which he states is unusual for him. He denies any chest pain or pressure. the patient states he was previously on anticoagulation with Eliquis but was hospitalized at one point at [facility] and was found to have blood in his stool and he was taken off of Eliquis. He states he has not had any episodes since then of bleeding or anemia. * EKG reveals atrial paced rhythm with underlying atrial fibrillation * Chest xray marked cardiomegaly with small bilateral pleural effusions. Findings could indicate mild CHF. * Laboratory data: WBC 9.14. Hemoglobin 9.4. Platelet count 276. Sodium 130. Potassium 5.8. BUN 38.6. Creatinine 3.7. ProBNP 7560. * Current home cardiac medications include Demadex 80 mg daily, lovastatin 40 mg at night, aspirin 81 mg daily, amiodarone 200 mg daily * Most recent echocardiogram obtained in February 2023 revealed ejection fraction 35-40%, severe pulmonary hypertension, mild MR, mild TR * patient underwent Lexiscan stress test in November 2020 with no evidence of reversible ischemia 07/10/2023 Patient examined this morning at the bedside. Patient underwent dialysis yesterday with removal of 2000 mL. He is currently undergoing hemodialysis at the time of examination. Per coremaker floor, goal is to remove 3 L today. The patient reports improvement in his shortness of breath. He also reports improvement in his lower extremity edema. He denies any chest pain or pressure. Doppler of left upper extremity was negative for DVT. Repeat echocardiogram re vealed ejection fraction 50-55%. PHYSICAL EXAM: VITAL SIGNS: Reviewed. GENERAL: Well-developed in no acute distress. HEENT: Head is normocephalic. Pupils are equal, round. Sclerae anicteric. Mucous membranes of the mouth are moist. Neck supple. No JVD or thyromegaly LUNGS: Respirations even and unlabored. Lungs with crackles at the bases and decreased breath sounds in right lower lobe HEART: Regular rate and rhythm. S1 and S2 heard. ABDOMEN: Soft. Nondistended. Nontender. EXTREMITIES: Normal range of motion. No clubbing or cyanosis. Peripheral pulses intact. 2+ bilateral pitting edema of lower extremities with chronic skin discoloration. Edema noted to upper bilateral extremities, left worse than right, NEUROLOGIC: Awake and alert. Oriented x 3. ASSESSMENT: Generalized weakness Shortness of breath End-stage renal disease on hemodialysis Acute on chronic heart failure with preserved EF, 50-55% Volume overload secondary to chronic kidney disease Persistent atrial fibrillation Cardiomyopathy, ejection fraction 35-40% in February 2023, suspect nonischemic secondary to infectious process, repeat echo reveals EF 55%. History of permanent pacemaker implantation Known history of left subclavian vein occlusion Hypertension Hyperlipidemia History of hypotension, on Midodrine Diabetes Morbid obesity: BMI 36.3 Hyperkalemia PLAN: Continue amiodarone and Eliquis. Case discussed with patient's primary boiling tub operator, Dr. Witt. Plan for cardioversion in 4-6 weeks on an outpatient basis Continue additional cardiac medications Hemodialysis per nephrology Further recommendations pending patient's course Nurse practitioner note has been reviewed by physician. Signing provider agrees with the documented findings, assessment, and plan of care. Objective - Vital Signs Vital signs: Vital Signs Temp 97.6 F 07/10/23 08:00 Pulse 67 07/10/23 08:00 Resp 18 07/10/23 08:00 BP 118/70 07/10/23 08:00 Pulse Ox 96 07/10/23 08:00 FiO2 3 07/09/23 21:49 Intake & Output 07/09/23 07/10/23 07/10/23 18:59 06:59 18:59 Intake Total 400 Output Total 3201 Balance -2801 Weight 95.5 kg Intake: Hemodialysis 400 Output: Stool 1 Hemodialysis 3200 Other: # Voids 1 0 # Bowel Movements 1 0 - Labs CBC & Chem 7: 07/10/23 04:00 07/10/23 04:00 Labs: Abnormal Lab Results - Last 24 Hours (Table) 07/09/23 07/09/23 07/09/23 Range/Units 12:34 16:26 20:50 RBC (4.40-5.60) X 10*6/uL Hgb (13.0-17.0) g/dL Hct (39.6-50.0) % RDW (11.5-14.5) % MPV (9.5-12.2) FL Immature Gran # (0.00-0.04) X 10*3/uL NRBC/100 WBC Diff (0.00-0.01) X 10*3/uL Sodium (135-145) mmol/L Anion Gap (4.00-12.00) mmol/L BUN (9.0-27.0) mg/dL Creatinine (0.6-1.5) mg/dL Est GFR (CKD-EPI) (>=60) BUN/Creatinine Ratio (12.00-20.00) Ratio POC Glucose (mg/dL) 217 H 121 H 174 H (70-110) mg/dL 07/10/23 07/10/23 07/10/23 Range/Units 04:00 04:00 11:03 RBC 2.83 L (4.40-5.60) X 10*6/uL Hgb 8.7 L (13.0-17.0) g/dL Hct 27.2 L (39.6-50.0) % RDW 18.7 H (11.5-14.5) % MPV 9.3 L (9.5-12.2) FL Immature Gran # 0.09 H (0.00-0.04) X 10*3/uL NRBC/100 WBC Diff 0.03 H (0.00-0.01) X 10*3/uL Sodium 134 L (135-145) mmol/L Anion Gap 15.60 H (4.00-12.00) mmol/L BUN 34.4 H (9.0-27.0) mg/dL Creatinine 3.7 H (0.6-1.5) mg/dL Est GFR (CKD-EPI) 16 L (>=60) BUN/Creatinine Ratio 9.30 L (12.00-20.00) Ratio POC Glucose (mg/dL) 130 H (70-110) mg/dL
[2023-07-10] MEDS: MULTIVITAMINS, THERA 1 EACH TAB PO SCH (11:58)
--- NOTE | 2023-07-10 12:01 | P.PN ---
Subjective Patient is seen for follow-up for end-stage renal disease. He is seen on hemodialysis today. Patient is receiving an extra treatment for volume overload. He tolerated 3.2 L yesterday and is scheduled for about 3 L again today Maintained on midodrine. Objective - Vital Signs Vital signs: Vital Signs Temp 97.6 F 07/10/23 08:00 Pulse 67 07/10/23 08:00 Resp 18 07/10/23 08:00 BP 118/70 07/10/23 08:00 Pulse Ox 96 07/10/23 08:00 FiO2 3 07/09/23 21:49 Intake & Output 07/09/23 07/10/23 07/10/23 18:59 06:59 18:59 Intake Total 400 Output Total 3201 Balance -2801 Weight 95.5 kg Intake: Hemodialysis 400 Output: Stool 1 Hemodialysis 3200 Other: # Voids 1 0 # Bowel Movements 1 0 - Exam atient is awake, comfortable, no acute distress Alert oriented 3 Examination of the heart S1 and S2 Examination of the lungs bilateral breath sounds are heard Abdomen is obese nontender Examination of lower extremities shows edema 2+ bilaterally upper and lower extremities IT SALES REPRESENTATIVE exam grossly intact - Labs CBC & Chem 7: 07/10/23 04:00 07/10/23 04:00 Labs: Abnormal Lab Results - Last 24 Hours (Table) 07/09/23 07/09/23 07/09/23 Range/Units 12:34 16:26 20:50 RBC (4.40-5.60) X 10*6/uL Hgb (13.0-17.0) g/dL Hct (39.6-50.0) % RDW (11.5-14.5) % MPV (9.5-12.2) FL Immature Gran # (0.00-0.04) X 10*3/uL NRBC/100 WBC Diff (0.00-0.01) X 10*3/uL Sodium (135-145) mmol/L Anion Gap (4.00-12.00) mmol/L BUN (9.0-27.0) mg/dL Creatinine (0.6-1.5) mg/dL Est GFR (CKD-EPI) (>=60) BUN/Creatinine Ratio (12.00-20.00) Ratio POC Glucose (mg/dL) 217 H 121 H 174 H (70-110) mg/dL 07/10/23 07/10/23 07/10/23 Range/Units 04:00 04:00 11:03 RBC 2.83 L (4.40-5.60) X 10*6/uL Hgb 8.7 L (13.0-17.0) g/dL Hct 27.2 L (39.6-50.0) % RDW 18.7 H (11.5-14.5) % MPV 9.3 L (9.5-12.2) FL Immature Gran # 0.09 H (0.00-0.04) X 10*3/uL NRBC/100 WBC Diff 0.03 H (0.00-0.01) X 10*3/uL Sodium 134 L (135-145) mmol/L Anion Gap 15.60 H (4.00-12.00) mmol/L BUN 34.4 H (9.0-27.0) mg/dL Creatinine 3.7 H (0.6-1.5) mg/dL Est GFR (CKD-EPI) 16 L (>=60) BUN/Creatinine Ratio 9.30 L (12.00-20.00) Ratio POC Glucose (mg/dL) 130 H (70-110) mg/dL Assessment and Plan Assessment: 1. End-stage renal disease maintained on hemodialysis on a Sunday schedule. Recently switched from PD to hemodialysis due to PD peritonitis and patient being unable to continue with peritoneal dialysis at home. 2. Volume overload, slowly improving. 3. Generalized debility 4. Anemia of chronic disease 5. Chronic systolic CHF with EF of 35-40% with severe pulmonary hypertension 6. Chronic persistent A. fib Plan: Hemodialysis today and in a.m. Increase UF as tolerated Continue with midodrine Continue Aranesp Maintain off of Florinef due to significant edema Continue with torsemide
[2023-07-10] MEDS ORDERED: DARBEPOETIN ALFA 60 MCG/0.3 ML SYRINGE SQ SCH (13:00)
[2023-07-10 16:21] LABS: Glucose,Whole Blood 197 mg/dL (70-110)
[2023-07-10 19:24] LABS: Glucose,Whole Blood 177 mg/dL (70-110)
[2023-07-10] MEDS: ATORVASTATIN 10 MG TAB PO SCH (21:18)
[2023-07-10] MEDS: NYSTATIN 100,000 UNIT/GM POWD 15 GM TOPICAL SCH (21:19)
[2023-07-11 06:28] LABS: Glucose,Whole Blood 81 mg/dL (70-110)
[2023-07-11] MEDS: INSULIN ASPART (NovoLOG) 100 UNIT/ML VIAL SQ SCH ×4 (06:33→21:03)
[2023-07-11] MEDS: MIDODRINE 5 MG TAB PO SCH ×3 (06:34→17:16)
--- NOTE | 2023-07-11 10:07 | P.PN ---
Subjective HISTORY OF PRESENT ILLNESS: This is a 78-year-old male with a past medical history significant for end-stage renal disease previously on peritoneal dialysis with recent peritonitis and transitioned to hemodialysis, congestive heart failure, persistent atrial fibrillation, hypertension, diabetes, and permanent pacemaker implantation. Patient follows in the office with Dr. Witt. We have been asked to see the patient in consultation for CHF. Patient examined at the bedside. Patient states he had hemodialysis on Sunday with removal of 4.5 L. He states he tolerated hemodialysis well. He states that his is went to lunch afterwards and when they got home he was so weak he was unable to get out of the car. He also reports shortness of breath. He reports a cough with occasional yellow sputum. Denies fever or chills. He also reports lower extremity edema and swelling of his left upper extremity, which he states is unusual for him. He denies any chest pain or pressure. the patient states he was previously on anticoagulation with Eliquis but was hospitalized at one point at [facility] and was found to have blood in his stool and he was taken off of Eliquis. He states he has not had any episodes since then of bleeding or anemia. * EKG reveals atrial paced rhythm with underlying atrial fibrillation * Chest xray marked cardiomegaly with small bilateral pleural effusions. Findings could indicate mild CHF. * Laboratory data: WBC 9.14. Hemoglobin 9.4. Platelet count 276. Sodium 130. Potassium 5.8. BUN 38.6. Creatinine 3.7. ProBNP 7560. * Current home cardiac medications include Demadex 80 mg daily, lovastatin 40 mg at night, aspirin 81 mg daily, amiodarone 200 mg daily * Most recent echocardiogram obtained in February 2023 revealed ejection fraction 35-40%, severe pulmonary hypertension, mild MR, mild TR * patient underwent Lexiscan stress test in November 2020 with no evidence of reversible ischemia 07/10/2023 Patient examined this morning at the bedside. Patient underwent dialysis yesterday with removal of 2000 mL. He is currently undergoing hemodialysis at the time of examination. Per rn maternal child, goal is to remove 3 L today. The patient reports improvement in his shortness of breath. He also reports improvement in his lower extremity edema. He denies any chest pain or pressure. Doppler of left upper extremity was negative for DVT. Repeat echocardiogram re vealed ejection fraction 50-55%. 07/11/2023 Patient examined this morning at the bedside. Patient is currently undergoing hemodialysis. He denies chest pain or pressure. He reports improvement in his shortness of breath. His lower extremity edema has also significantly improved. Vital signs are stable. PHYSICAL EXAM: VITAL SIGNS: Reviewed. GENERAL: Well-developed in no acute distress. HEENT: Head is normocephalic. Pupils are equal, round. Sclerae anicteric. Mucous membranes of the mouth are moist. Neck supple. No JVD or thyromegaly LUNGS: Respirations even and unlabored. Lungs diminished at the bases HEART: Regular rate and rhythm. S1 and S2 heard. ABDOMEN: Soft. Nondistended. Nontender. EXTREMITIES: Normal range of motion. No clubbing or cyanosis. Peripheral pulses intact. Trace lower extremity edema with chronic skin discoloration. NEUROLOGIC: Awake and alert. Oriented x 3. ASSESSMENT: Generalized weakness Shortness of breath End-stage renal disease on hemodialysis Acute on chronic heart failure with preserved EF, 50-55% Volume overload secondary to chronic kidney disease Persistent atrial fibrillation Cardiomyopathy, ejection fraction 35-40% in February 2023, suspect nonischemic secondary to infectious process, repeat echo reveals EF 55%. History of permanent pacemaker implantation Known history of left subclavian vein occlusion Hypertension Hyperlipidemia History of hypotension, on Midodrine Diabetes Morbid obesity: BMI 36.3 Hyperkalemia PLAN: Continue amiodarone and Eliquis. Case discussed with patient's primary research phlebotomist, Dr. Witt. Plan for cardioversion in 4-6 weeks on an outpatient basis Continue additional cardiac medications Hemodialysis per nephrology Patient is stable for discharge home today from a cardiac standpoint Nurse practitioner note has been reviewed by physician. Signing provider agrees with the documented findings, assessment, and plan of care. Objective - Vital Signs Vital signs: Vital Signs Temp 97.4 F L 07/11/23 08:16 Pulse 63 07/11/23 08:16 Resp 19 07/11/23 08:16 BP 139/71 07/11/23 08:16 Pulse Ox 93 L 07/11/23 08:16 FiO2 3 07/09/23 21:49 Intake & Output 07/10/23 07/11/23 07/11/23 18:59 06:59 18:59 Intake Total 500 Output Total 3500 Balance -3000 Weight 116 kg Intake: Hemodialysis 500 Output: Hemodialysis 3500 Other: # Voids 1 1 # Bowel Movements 1 - Labs CBC & Chem 7: 07/10/23 04:00 07/10/23 04:00 Labs: Abnormal Lab Results - Last 24 Hours (Table) 07/10/23 07/10/23 07/10/23 Range/Units 11:03 16:20 19:22 POC Glucose (mg/dL) 130 H 197 H 177 H (70-110) mg/dL
[2023-07-11 11:33] LABS: Glucose,Whole Blood 107 mg/dL (70-110)
[2023-07-11] MEDS: glipiZIDE 10 MG TAB PO SCH ×2 (12:35→17:16)
[2023-07-11] MEDS: allopurinoL 300 MG TAB PO SCH (12:36)
[2023-07-11] MEDS: SUCRALFATE 1 GM TAB PO SCH ×2 (12:36→21:03)
[2023-07-11] MEDS: AMIODARONE 200 MG TAB PO SCH (12:36)
[2023-07-11] MEDS: TORSEMIDE 20 MG TAB PO SCH (12:36)
[2023-07-11] MEDS: PANTOPRAZOLE 40 MG TABLET PO SCH (12:36)
[2023-07-11] MEDS: ACETAMINOPHEN TAB 325 MG TAB PO SCH ×2 (12:36→21:04)
[2023-07-11] MEDS: DOCUSATE 100 MG CAP PO SCH ×2 (12:36→21:03)
[2023-07-11] MEDS: LACTOBACILLUS ACIDOPHILUS/PECT 1 EACH CAPSULE PO SCH (12:37)
[2023-07-11] MEDS: MULTIVITAMINS, THERA 1 EACH TAB PO SCH (12:37)
[2023-07-11] MEDS: APIXABAN 5 MG TAB PO SCH ×2 (12:37→21:03)
[2023-07-11] MEDS: FERROUS SULFATE 325 MG TAB PO SCH (12:37)
[2023-07-11] MEDS: NYSTATIN 100,000 UNIT/GM POWD 15 GM TOPICAL SCH ×2 (12:37→21:05)
--- NOTE | 2023-07-11 12:50 | P.PN ---
Subjective Patient is seen for follow-up for end-stage renal disease. He is seen on hemodialysis today. Patient has had daily treatments for UF which he has been tolerating fairly well with total UF of about 10 L so far. Maintained on midodrine. Seen on hemodialysis. Objective - Vital Signs Vital signs: Vital Signs Temp 97.8 F 07/11/23 12:07 Pulse 68 07/11/23 12:07 Resp 19 07/11/23 12:07 BP 112/69 07/11/23 12:07 Pulse Ox 93 L 07/11/23 08:16 FiO2 3 07/09/23 21:49 Intake & Output 07/10/23 07/11/23 07/11/23 18:59 06:59 18:59 Intake Total 500 400 Output Total 3500 3500 Balance -3000 -3100 Weight 116 kg Intake: Hemodialysis 500 400 Output: Hemodialysis 3500 3500 Other: # Voids 1 1 # Bowel Movements 1 - Exam atient is awake, comfortable, no acute distress Alert oriented 3 Examination of the heart S1 and S2 Examination of the lungs bilateral breath sounds are heard Abdomen is obese nontender Examination of lower extremities shows edema 2+ bilaterally upper and lower extremities SCIENTIFIC HELPER exam grossly intact - Labs CBC & Chem 7: 07/10/23 04:00 07/10/23 04:00 Labs: Abnormal Lab Results - Last 24 Hours (Table) 07/10/23 07/10/23 Range/Units 16:20 19:22 POC Glucose (mg/dL) 197 H 177 H (70-110) mg/dL Assessment and Plan Assessment: 1. End-stage renal disease maintained on hemodialysis on a Sunday schedule. Recently switched from PD to hemodialysis due to PD peritonitis and patient being unable to continue with peritoneal dialysis at home. 2. Volume overload, slowly improving. 3. Generalized debility 4. Anemia of chronic disease 5. Chronic systolic CHF with EF of 35-40% with severe pulmonary hypertension 6. Chronic persistent A. fib Plan: Hemodialysis today and in a.m. Increase UF as tolerated Continue with midodrine Continue Aranesp Maintain off of Florinef due to significant edema Continue with torsemide
[2023-07-11 17:01] LABS: Glucose,Whole Blood 201 mg/dL (70-110)
[2023-07-11 20:12] LABS: Glucose,Whole Blood 202 mg/dL (70-110)
[2023-07-11] MEDS: ATORVASTATIN 10 MG TAB PO SCH (21:03)
--- NOTE | 2023-07-12 00:36 | P.PN ---
Subjective Progress Note Date: 07/10/23 History of present illness; patient 78-year-old gentleman with past medical history significant for atrial fibrillation, COPD, diabetes mellitus, end-stage renal disease presented to the hospital for complaining of generalized weakness. Patient was admitted last month Hospital at which time was found to have peritonitis secondary to peritoneal dialysis catheter, during that admission he was switched to hemodialysis and was discharged to subacute rehab with IV antibiotics. Patient stated that he was discharged from rehab couple of days ago, patient has been noticing that for the last week he has been gradually getting weak. Patient denies any fever or chills. There is no complaint of lightheadedness or dizziness. Patient is complaining of shortness of breath on exertion. At home patient was unable to take care of himself, patient having a hard time doing his ADLs and IDL's. Because generalized weakness, patient came back to the ER Initial lab work done in the ER showed WBC 10.5, hemoglobin 9.7, platelet count 290, sodium 132, potassium 5.1, BUN/creatinine 38, creatinine 3.44 glucose 141, AST 48, ALT 27, Influenza A not detected Influenza B not detected RSV not detected COVID-19 not detected EKG done in the ER showed heart rate of 77, pacemaker rhythm seen Chest x-ray done in the ER mild cardiomegaly with small bilateral pleural effusions. Suspicious of mild CHF Patient admitted to internal medicine service 07/09/2023 Patient is currently sitting on the side of the bed. Awake alert and oriented 3. Still having generalized weakness and feels slightly better. Currently r equiring 3 L oxygen with nasal cannula. No complaints of nausea or vomiting. Afebrile. No cough or sputum production. Patient is supposed to get hemodialysis today. Blood sugar is controlled. Laboratory data reviewed. 07/10/2023 Patient is currently lying in bed. Awake alert and oriented x 3. No complaints of chest pain. Shortness of breath is improved. Leg swelling also improving. Patient is getting extra hemodialysis today. Tolerating oral diet. No headache or dizziness or lightheadedness. Laboratory data showed WBC 9.7 hemoglobin 8.7 and platelets 231, sodium 134 potassium 4.7 chloride 96 bicarb is 22.4 BUN 34.4 and creatinine 3.7 and calcium 8.7. REVIEW OF SYSTEMS: CONSTITUTIONAL: As mentioned above HEENT: No recent visual problems or hearing problems. Denied any sore throat. CARDIOVASCULAR: No chest pain, orthopnea, PND, no palpitations, no syncope. PULMONARY: No shortness of breath, no cough, no hemoptysis. GASTROINTESTINAL: No diarrhea, no nausea, no vomiting, no abdominal pain. NEUROLOGICAL: No headaches, no weakness, no numbness. HEMATOLOGICAL: Denies any bleeding or petechiae. GENITOURINARY: Denies any burning micturition, frequency, or urgency. MUSCULOSKELETAL/RHEUMATOLOGICAL: Denies any joint pain, swelling, or any muscle pain. ENDOCRINE: Denies any polyuria or polydipsia. The rest of the 14-point review of systems is negative. PHYSICAL EXAMINATION: GENERAL: The patient is alert and oriented x3, not in any acute distress. Well developed, well nourished. HEENT: Pupils are round and equally reacting to light. EOMI. No scleral icterus. No conjunctival pallor. Normocephalic, atraumatic. No pharyngeal erythema. No thyromegaly. CARDIOVASCULAR: S1 and S2 present. No murmurs, rubs, or gallops. PULMONARY: Bibasilar minimal crackles and coarse sounds., no wheezing or crackles. Nonlabored breathing ABDOMEN: Soft, nontender, nondistended, normoactive bowel sounds. No palpable organomegaly. MUSCULOSKELETAL: No joint swelling or deformity. EXTREMITIES: 1+ pitting edema of lower extremities bilaterally, left upper extremity also swollen NEUROLOGICAL: Gross neurological examination did not reveal any focal deficits. SKIN: No rashes. Assessment and plan Generalized weakness Chronic hypoxemic respiratory failure requiring 3 L oxygen by nasal cannula COPD not in exacerbation End-stage renal disease, currently on hemodialysis Sunday and Sunday Acute on Chronic systolic congestive heart failure with ejection fraction of 35% Cardiomyopathy and LV dysfunction Chronic persistent atrial fibrillation Chronic hypotension on Midodrin Severe pulmonary hypertension Type 2 diabetes with diabetic nephropathy History of sick sinus syndrome requiring permanent pacemaker implantation Plan: Monitor vital signs Monitor CBC Monitor CMP Continue telemetry monitoring Strict I's and O's, daily weights Continue renal diet. Encourage oral intake Continue amiodarone Continue Lipitor Continue Florinef and midodrine Cardiology consulted. Limited echo was done. Patient will be continued on amiodarone and cardiology recommends to reevaluate for cardioversion as an outpatient basis. Started on anticoagulation with eliquis. DC'd aspirin. Nephrology consulted for maintenance dialysis. PT OT consulted Labs and medication were reviewed.. Continue with symptomatic treatment. Resume home medication. Monitor labs and vitals. DVT and GI prophylaxis. Further recommendations as per clinical course of the patient Dictation was produced using [employer] dictation software. please excuse any grammatical, word or spelling errors. Objective - Vital Signs Vital signs: Vital Signs Temp 97.6 F 07/10/23 14:00 Pulse 69 07/10/23 14:00 Resp 18 07/10/23 14:00 BP 137/66 07/10/23 14:00 Pulse Ox 96 07/10/23 14:00 FiO2 3 07/09/23 21:49 Intake & Output 07/10/23 07/10/23 07/11/23 06:59 18:59 06:59 Intake Total 500 Output Total 3500 Balance -3000 Weight 95.5 kg Intake: Hemodialysis 500 Output: Hemodialysis 3500 Other: # Voids 0 1 # Bowel Movements 0 1 - Labs CBC & Chem 7: 07/10/23 04:00 07/10/23 04:00 Labs: Abnormal Lab Results - Last 24 Hours (Table) 07/10/23 07/10/23 07/10/23 Range/Units 04:00 04:00 11:03 RBC 2.83 L (4.40-5.60) X 10*6/uL Hgb 8.7 L (13.0-17.0) g/dL Hct 27.2 L (39.6-50.0) % RDW 18.7 H (11.5-14.5) % MPV 9.3 L (9.5-12.2) FL Immature Gran # 0.09 H (0.00-0.04) X 10*3/uL NRBC/100 WBC Diff 0.03 H (0.00-0.01) X 10*3/uL Sodium 134 L (135-145) mmol/L Anion Gap 15.60 H (4.00-12.00) mmol/L BUN 34.4 H (9.0-27.0) mg/dL Creatinine 3.7 H (0.6-1.5) mg/dL Est GFR (CKD-EPI) 16 L (>=60) BUN/Creatinine Ratio 9.30 L (12.00-20.00) Ratio POC Glucose (mg/dL) 130 H (70-110) mg/dL 07/10/23 07/10/23 Range/Units 16:20 19:22 RBC (4.40-5.60) X 10*6/uL Hgb (13.0-17.0) g/dL Hct (39.6-50.0) % RDW (11.5-14.5) % MPV (9.5-12.2) FL Immature Gran # (0.00-0.04) X 10*3/uL NRBC/100 WBC Diff (0.00-0.01) X 10*3/uL Sodium (135-145) mmol/L Anion Gap (4.00-12.00) mmol/L BUN (9.0-27.0) mg/dL Creatinine (0.6-1.5) mg/dL Est GFR (CKD-EPI) (>=60) BUN/Creatinine Ratio (12.00-20.00) Ratio POC Glucose (mg/dL) 197 H 177 H (70-110) mg/dL
--- NOTE | 2023-07-12 00:38 | P.PN ---
Subjective Progress Note Date: 07/11/23 History of present illness; patient 78-year-old gentleman with past medical history significant for atrial fibrillation, COPD, diabetes mellitus, end-stage renal disease presented to the hospital for complaining of generalized weakness. Patient was admitted last month Hospital at which time was found to have peritonitis secondary to peritoneal dialysis catheter, during that admission he was switched to hemodialysis and was discharged to subacute rehab with IV antibiotics. Patient stated that he was discharged from rehab couple of days ago, patient has been noticing that for the last week he has been gradually getting weak. Patient denies any fever or chills. There is no complaint of lightheadedness or dizziness. Patient is complaining of shortness of breath on exertion. At home patient was unable to take care of himself, patient having a hard time doing his ADLs and IDL's. Because generalized weakness, patient came back to the ER Initial lab work done in the ER showed WBC 10.5, hemoglobin 9.7, platelet count 290, sodium 132, potassium 5.1, BUN/creatinine 38, creatinine 3.44 glucose 141, AST 48, ALT 27, Influenza A not detected Influenza B not detected RSV not detected COVID-19 not detected EKG done in the ER showed heart rate of 77, pacemaker rhythm seen Chest x-ray done in the ER mild cardiomegaly with small bilateral pleural effusions. Suspicious of mild CHF Patient admitted to internal medicine service 07/09/2023 Patient is currently sitting on the side of the bed. Awake alert and oriented 3. Still having generalized weakness and feels slightly better. Currently r equiring 3 L oxygen with nasal cannula. No complaints of nausea or vomiting. Afebrile. No cough or sputum production. Patient is supposed to get hemodialysis today. Blood sugar is controlled. Laboratory data reviewed. 07/10/2023 Patient is currently lying in bed. Awake alert and oriented x 3. No complaints of chest pain. Shortness of breath is improved. Leg swelling also improving. Patient is getting extra hemodialysis today. Tolerating oral diet. No headache or dizziness or lightheadedness. Laboratory data showed WBC 9.7 hemoglobin 8.7 and platelets 231, sodium 134 potassium 4.7 chloride 96 bicarb is 22.4 BUN 34.4 and creatinine 3.7 and calcium 8.7. 07/11/2023 Patient is currently sitting in the chair. Awake alert and oriented x 3. Patient is getting ultrafiltration today also.. Shortness of breath is much improved. Leg swelling as well. No complaints of chest pain or shortness of breath. Heart rate is well-controlled. Patient is still atrial fibrillation. Cardiology recommends outpatient follow-up for cardioversion. Currently on Eliquis and also amiodarone. Patient is having hemodialysis tomorrow. Evaluated well. No headache or dizziness or lightheadedness. Anticipate discharge in the next 24 hours REVIEW OF SYSTEMS: CONSTITUTIONAL: As mentioned above HEENT: No recent visual problems or hearing problems. Denied any sore throat. CARDIOVASCULAR: No chest pain, orthopnea, PND, no palpitations, no syncope. PULMONARY: No shortness of breath, no cough, no hemoptysis. GASTROINTESTINAL: No diarrhea, no nausea, no vomiting, no abdominal pain. NEUROLOGICAL: No headaches, no weakness, no numbness. HEMATOLOGICAL: Denies any bleeding or petechiae. GENITOURINARY: Denies any burning micturition, frequency, or urgency. MUSCULOSKELETAL/RHEUMATOLOGICAL: Denies any joint pain, swelling, or any muscle pain. ENDOCRINE: Denies any polyuria or polydipsia. The rest of the 14-point review of systems is negative. PHYSICAL EXAMINATION: GENERAL: The patient is alert and oriented x3, not in any acute distress. Well developed, well nourished. HEENT: Pupils are round and equally reacting to light. EOMI. No scleral icterus. No conjunctival pallor. Normocephalic, atraumatic. No pharyngeal erythema. No thyromegaly. CARDIOVASCULAR: S1 and S2 present. No murmurs, rubs, or gallops. PULMONARY: Bibasilar minimal crackles and coarse sounds., no wheezing or crackles. Nonlabored breathing ABDOMEN: Soft, nontender, nondistended, normoactive bowel sounds. No palpable organomegaly. MUSCULOSKELETAL: No joint swelling or deformity. EXTREMITIES: 1+ pitting edema of lower extremities bilaterally, left upper extremity also swollen NEUROLOGICAL: Gross neurological examination did not reveal any focal deficits. SKIN: No rashes. Assessment and plan Generalized weakness Chronic hypoxemic respiratory failure requiring 3 L oxygen by nasal cannula COPD not in exacerbation End-stage renal disease, currently on hemodialysis Sunday and Sunday Acute on Chronic systolic congestive heart failure with ejection fraction of 35% Cardiomyopathy and LV dysfunction Chronic persistent atrial fibrillation Chronic hypotension on Midodrin Severe pulmonary hypertension Type 2 diabetes with diabetic nephropathy History of sick sinus syndrome requiring permanent pacemaker implantation Plan: Monitor vital signs Monitor CBC Monitor CMP Continue telemetry monitoring Strict I's and O's, daily weights Continue renal diet. Encourage oral intake Continue amiodarone Continue Lipitor Continue Florinef and midodrine Cardiology consulted. Limited echo was done. Patient will be continued on amiodarone and cardiology recommends to reevaluate for cardioversion as an outpatient basis. Started on anticoagulation with eliquis. DC'd aspirin. Nephrology consulted for maintenance dialysis. PT OT consulted Labs and medication were reviewed.. Continue with symptomatic treatment. Resume home medication. Monitor labs and vitals. DVT and GI prophylaxis. Further recommendations as per clinical course of the patient Dictation was produced using [employer] dictation software. please excuse any grammatical, word or spelling errors. Objective - Vital Signs Vital signs: Vital Signs Temp 97.4 F L 07/11/23 19:52 Pulse 64 07/11/23 19:52 Resp 19 07/11/23 12:32 BP 119/76 07/11/23 19:52 Pulse Ox 92 L 07/11/23 19:52 FiO2 3 07/09/23 21:49 Intake & Output 07/11/23 07/11/23 07/12/23 06:59 18:59 06:59 Intake Total 400 Output Total 3500 Balance -3100 Weight 116 kg Intake: Hemodialysis 400 Output: Hemodialysis 3500 Other: # Voids 1 1 # Bowel Movements 1 - Labs CBC & Chem 7: 07/10/23 04:00 07/10/23 04:00 Labs: Abnormal Lab Results - Last 24 Hours (Table) 07/11/23 07/11/23 Range/Units 17:00 20:10 POC Glucose (mg/dL) 201 H 202 H (70-110) mg/dL
[2023-07-12 05:40] LABS: Glucose,Whole Blood 96 mg/dL (70-110)
[2023-07-12] MEDS: INSULIN ASPART (NovoLOG) 100 UNIT/ML VIAL SQ SCH ×2 (05:57→12:18)
[2023-07-12] MEDS: MIDODRINE 5 MG TAB PO SCH ×2 (06:33→12:18)
[2023-07-12] MEDS: AMIODARONE 200 MG TAB PO SCH (08:00)
[2023-07-12] MEDS: FERROUS SULFATE 325 MG TAB PO SCH (08:00)
[2023-07-12] MEDS: ACETAMINOPHEN TAB 325 MG TAB PO SCH (08:00)
[2023-07-12] MEDS: TORSEMIDE 20 MG TAB PO SCH (08:00)
[2023-07-12] MEDS: APIXABAN 5 MG TAB PO SCH (08:00)
[2023-07-12] MEDS: glipiZIDE 10 MG TAB PO SCH ×2 (08:00→14:50)
[2023-07-12] MEDS: DOCUSATE 100 MG CAP PO SCH (08:00)
[2023-07-12] MEDS: MULTIVITAMINS, THERA 1 EACH TAB PO SCH (08:00)
[2023-07-12] MEDS: allopurinoL 300 MG TAB PO SCH (08:00)
[2023-07-12] MEDS: LACTOBACILLUS ACIDOPHILUS/PECT 1 EACH CAPSULE PO SCH (08:00)
[2023-07-12] MEDS: PANTOPRAZOLE 40 MG TABLET PO SCH (08:00)
[2023-07-12] MEDS: SUCRALFATE 1 GM TAB PO SCH (08:00)
--- NOTE | 2023-07-12 10:26 | P.PN ---
Subjective HISTORY OF PRESENT ILLNESS: This is a 78-year-old male with a past medical history significant for end-stage renal disease previously on peritoneal dialysis with recent peritonitis and transitioned to hemodialysis, congestive heart failure, persistent atrial fibrillation, hypertension, diabetes, and permanent pacemaker implantation. Patient follows in the office with Dr. Witt. We have been asked to see the patient in consultation for CHF. Patient examined at the bedside. Patient states he had hemodialysis on Sunday with removal of 4.5 L. He states he tolerated hemodialysis well. He states that his is went to lunch afterwards and when they got home he was so weak he was unable to get out of the car. He also reports shortness of breath. He reports a cough with occasional yellow sputum. Denies fever or chills. He also reports lower extremity edema and swelling of his left upper extremity, which he states is unusual for him. He denies any chest pain or pressure. the patient states he was previously on anticoagulation with Eliquis but was hospitalized at one point at [facility] and was found to have blood in his stool and he was taken off of Eliquis. He states he has not had any episodes since then of bleeding or anemia. * EKG reveals atrial paced rhythm with underlying atrial fibrillation * Chest xray marked cardiomegaly with small bilateral pleural effusions. Findings could indicate mild CHF. * Laboratory data: WBC 9.14. Hemoglobin 9.4. Platelet count 276. Sodium 130. Potassium 5.8. BUN 38.6. Creatinine 3.7. ProBNP 7560. * Current home cardiac medications include Demadex 80 mg daily, lovastatin 40 mg at night, aspirin 81 mg daily, amiodarone 200 mg daily * Most recent echocardiogram obtained in February 2023 revealed ejection fraction 35-40%, severe pulmonary hypertension, mild MR, mild TR * patient underwent Lexiscan stress test in November 2020 with no evidence of reversible ischemia 07/10/2023 Patient examined this morning at the bedside. Patient underwent dialysis yesterday with removal of 2000 mL. He is currently undergoing hemodialysis at the time of examination. Per regional ehs manager, goal is to remove 3 L today. The patient reports improvement in his shortness of breath. He also reports improvement in his lower extremity edema. He denies any chest pain or pressure. Doppler of left upper extremity was negative for DVT. Repeat echocardiogram re vealed ejection fraction 50-55%. 07/11/2023 Patient examined this morning at the bedside. Patient is currently undergoing hemodialysis. He denies chest pain or pressure. He reports improvement in his shortness of breath. His lower extremity edema has also significantly improved. Vital signs are stable. 07/12/2023 Patient examined this morning. Patient is sitting up in the chair. Patient u nderwent hemodialysis yesterday with removal of over 3 L. Patient states he is supposed to have an additional hemodialysis session today. He currently denies any chest pain or pressure. He denies shortness of breath. Vital signs are stable. Blood pressure this morning 143/79. PHYSICAL EXAM: VITAL SIGNS: Reviewed. GENERAL: Well-developed in no acute distress. HEENT: Head is normocephalic. Pupils are equal, round. Sclerae anicteric. Mucous membranes of the mouth are moist. Neck supple. No JVD or thyromegaly LUNGS: Respirations even and unlabored. Lungs diminished at the bases HEART: Regular rate and rhythm. S1 and S2 heard. ABDOMEN: Soft. Nondistended. Nontender. EXTREMITIES: Normal range of motion. No clubbing or cyanosis. Peripheral pulses intact. Minimal lower extremity edema with chronic skin discoloration. NEUROLOGIC: Awake and alert. Oriented x 3. ASSESSMENT: Generalized weakness Shortness of breath End-stage renal disease on hemodialysis Acute on chronic heart failure with preserved EF, 50-55% Volume overload secondary to chronic kidney disease Persistent atrial fibrillation Cardiomyopathy, ejection fraction 35-40% in February 2023, suspect nonischemic secondary to infectious process, repeat echo reveals EF 55%. History of permanent pacemaker implantation Known history of left subclavian vein occlusion Hypertension Hyperlipidemia History of hypotension, on Midodrine Diabetes Morbid obesity: BMI 36.3 Hyperkalemia PLAN: Continue amiodarone and Eliquis. Case discussed with patient's primary ca rdiologist, Dr. Witt. Plan for cardioversion in 4-6 weeks on an outpatient basis Continue additional cardiac medications Hemodialysis per nephrology Patient is stable for discharge home today from a cardiac standpoint Nurse practitioner note has been reviewed by physician. Signing provider agrees with the documented findings, assessment, and plan of care. Objective - Vital Signs Vital signs: Vital Signs Temp 98.3 F 07/12/23 08:00 Pulse 61 07/12/23 08:00 Resp 18 07/12/23 08:00 BP 143/79 07/12/23 08:00 Pulse Ox 96 07/12/23 08:00 FiO2 3 07/09/23 21:49 Intake & Output 07/11/23 07/12/23 07/12/23 18:59 06:59 18:59 Intake Total 400 Output Total 3500 Balance -3100 Weight 116.2 kg Intake: Hemodialysis 400 Output: Hemodialysis 3500 Other: # Voids 1 1 # Bowel Movements 1 - Labs CBC & Chem 7: 07/10/23 04:00 07/10/23 04:00 Labs: Abnormal Lab Results - Last 24 Hours (Table) 07/11/23 07/11/23 Range/Units 17:00 20:10 POC Glucose (mg/dL) 201 H 202 H (70-110) mg/dL
[2023-07-12 11:02] LABS: Glucose,Whole Blood 202 mg/dL (70-110)
[2023-07-12] MEDS: NYSTATIN 100,000 UNIT/GM POWD 15 GM TOPICAL SCH (12:19)
[2023-07-12 12:37] VITALS: BMI 35.7
--- NOTE | 2023-07-12 14:20 | P.PN ---
Subjective Patient is seen for follow-up for end-stage renal disease. He scheduled for hemodialysis today and subsequently can be discharged to follow-up as outpatient for hemodialysis tomorrow. No significant complaints. Objective - Vital Signs Vital signs: Vital Signs Temp 98.3 F 07/12/23 08:00 Pulse 61 07/12/23 08:00 Resp 18 07/12/23 08:00 BP 143/79 07/12/23 08:00 Pulse Ox 96 07/12/23 08:00 FiO2 3 07/09/23 21:49 Intake & Output 07/11/23 07/12/23 07/12/23 18:59 06:59 18:59 Intake Total 400 200 Output Total 3500 Balance -3100 200 Weight 116.2 kg 116.2 kg Intake: Oral 200 Hemodialysis 400 Output: Hemodialysis 3500 Other: # Voids 1 1 # Bowel Movements 1 - Exam atient is awake, comfortable, no acute distress Alert oriented 3 Examination of the heart S1 and S2 Examination of the lungs bilateral breath sounds are heard Abdomen is obese nontender Examination of lower extremities shows edema 2+ bilaterally upper and lower extremities SCREEN [employer] exam grossly intact - Labs CBC & Chem 7: 07/10/23 04:00 07/10/23 04:00 Labs: Abnormal Lab Results - Last 24 Hours (Table) 07/11/23 07/11/23 07/12/23 Range/Units 17:00 20:10 11:01 POC Glucose (mg/dL) 201 H 202 H 202 H (70-110) mg/dL Assessment and Plan Assessment: 1. End-stage renal disease maintained on hemodialysis on a Sunday schedule. Recently switched from PD to hemodialysis due to PD peritonitis and patient being unable to continue with peritoneal dialysis at home. 2. Volume overload, slowly improving. 3. Generalized debility 4. Anemia of chronic disease 5. Chronic systolic CHF with EF of 35-40% with severe pulmonary hypertension 6. Chronic persistent A. fib Plan: Okay to discharge patient post hemodialysis today. He will follow-up as outpatient tomorrow for hemodialysis in [place].
[2023-07-12 16:20] VITALS: BP 118/70; PULSE 63; RESP 16; TEMP 97.3
[2023-07-12 18:16] LABS: Basophils # (A) 0.06 X 10*3/uL (0.00-0.10); Basophils % (A) 0.6 %; Eosinophils # (A) 0.17 X 10*3/uL (0.04-0.35); Eosinophils % (A) 1.8 %; HCT 29.3 % (39.6-50.0); HGB 9.1 g/dL (13.0-17.0); Lymphocytes # (A) 1.36 X 10*3/uL (0.90-5.00); Lymphocytes % (A) 14.3 %; MCH 30.8 pg (27.0-32.0); MCHC 31.1 g/dL (32.0-37.0); MCV 99.3 FL (80.0-97.0); Mean Platelet Volume 9.7 FL (9.5-12.2); Monocytes % (A) 8.4 %; Platelet Count 222 X 10*3/uL (140-440); RBC 2.95 X 10*6/uL (4.40-5.60); RDW 19.3 % (11.5-14.5); WBC 9.48 X 10*3/uL (4.50-10.00)
[2023-07-12 21:30] LABS: BUN/Creat Ratio 9.58 Ratio (12.00-20.00); Blood Urea Nitrogen 24.9 mg/dL (9.0-27.0); Calcium 8.8 mg/dL (8.7-10.3); Carbon Dioxide 25.7 mmol/L (21.6-31.8); Chloride 92 mmol/L (96-109); Glucose 152 mg/dL (70-110); Sodium 132 mmol/L (135-145)
--- NOTE | 2023-07-14 06:39 | P.DS ---
Providers Date of admission: 07/07/23 19:43 Expected date of discharge: 07/12/23 Attending physician: Callum Hseter Consults: 07/08/23 09:11 Consult Physician Routine Consulting Provider: Bj Weller Consult Reason/Comments: ESRD, needs maintenance dialysis Do you want consulting provider notified?: Yes 07/08/23 09:12 Consult Physician Routine Consulting Provider: Jeffrey Matos Consult Reason/Comments: CHF , shortness of breath Do you want consulting provider notified?: Yes Primary care physician: Nayan Georges Hospital Course: Final diagnosis Generalized weakness Chronic hypoxemic respiratory failure requiring 3 L oxygen by nasal cannula COPD not in exacerbation End-stage renal disease, currently on hemodialysis Sunday and Sunday Acute on Chronic systolic congestive heart failure with ejection fraction of 35% Cardiomyopathy and LV dysfunction Chronic persistent atrial fibrillation Chronic hypotension on Midodrin Severe pulmonary hypertension 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 Patient will follow-up with Dr. Georges in the outpatient setting upon discharge. Patient is to continue with hemodialysis as scheduled.patient to follow-up with nephrology outpatient along with repeat labs. Total time taken is greater than 35 minutes. Hospital course This is a 78-year-old male who was recently admitted with generalized weakness with increasing shortness of breath being closely followed. Cardiology as well as nephrology following as patient is maintained on hemodialysis Sunday/Sunday/Sunday. Patient with significant weakness seen and evaluated by physical therapy recommending rehab and initially patient was going to go to [facility] although patient now desires to go home with . Homecare being arranged. Patient has been cleared by consultations for discharge after dialysis today. Patient will receive dialysis tomorrow as well at his scheduled appointment. Please refer to other consultation notes for further HPI. Currently no reports of chest pain, shortness of breath, or palpitations. Patient is afebrile. No reports of nausea or vomiting and patient is tolerating diet. Patient will be discharged home today. guarded prognosis and high risk for readmission given patient's significant comorbidities. Physical exam: Gen: This is a 78-year-old male who is awake, alert and oriented 3, well- developed, well-nourished, obese HEENT: Head is atraumatic, normocephalic. Pupils equal, round. Sclerae is anicteric. NECK: Supple. No JVD. No lymphadenopathy. No thyromegaly. LUNGS: diminished breath sounds bilaterally otherwise Clear to auscultation. No wheezes or rhonchi. No intercostal retractions. HEART: S1, S2 are muffled ABDOMEN: Soft. obese.Bowel sounds are present. No masses. No tenderness. EXTREMITIES: No pedal edema. generalized edema to bilateral lower extremities. No calf tenderness. NEUROLOGICAL: Patient is awake, alert and oriented x3. Cranial nerves 2 through 12 are grossly intact. diffusely weak Please refer to medication reconciliation sheet for a list of medications. The impression and plan of care has been dictated by Elinor Patrick, Nurse Practitioner as directed. Dr. Alfredo MD I have performed a history and examination and MDM of this patient, discussed the same with the dictator, and agree with the dictator's assessment and plan as written ,documented as a scribe. Based on total visit time, I have performed more than 50% of the visit. Patient Condition at Discharge: Fair Plan - Discharge Summary Discharge Rx Participant: Yes New Discharge Prescriptions: New Apixaban [Eliquis] 5 mg PO BID #60 tab Nystatin 100,000 Unit/gm Powd [Mycostatin Powder] 1 applic TOPICAL BID 30 Days #2 each Darbepoetin Chirag [Aranesp] 60 mcg SQ Q7D 30 Days #4 each Continue allopurinoL [Zyloprim] 300 mg PO DAILY Acetaminophen Tab [Tylenol] 650 mg PO BID Multivitamins, Thera [Multivitamin (formulary)] 1 tab PO DAILY Lovastatin [Altoprev] 40 mg PO HS glipiZIDE [Glucotrol] 10 mg PO DAILY@1400 Fludrocortisone [Florinef] 0.1 mg PO DAILY Docusate [Colace] 100 mg PO BID Amiodarone [Cordarone] 200 mg PO DAILY 30 Days #30 tab Torsemide [Demadex] 80 mg PO DAILY Omeprazole 40 mg PO DAILY Midodrine HCl [ProAmatine] 10 mg PO QID PRN PRN Reason: HOLD SBP <100 Sucralfate [Carafate] 1 gm PO BID Ferrous Sulfate [Feosol] 325 mg PO DAILY 30 Days #60 tab glipiZIDE [Glucotrol] 20 mg PO DAILY@0800 L.acidoph,Paracasei, B.lactis [Probiotic] 1 cap PO DAILY Discontinued Aspirin [Adult Low Dose Aspirin EC] 81 mg PO DAILY Discharge Medication List allopurinoL [Zyloprim] 300 mg PO DAILY 11/21/14 [History] Acetaminophen Tab [Tylenol] 650 mg PO BID 07/12/16 [History] Multivitamins, Thera [Multivitamin (formulary)] 1 tab PO DAILY 10/03/17 [History] Lovastatin [Altoprev] 40 mg PO HS 05/24/21 [History] Omeprazole 40 mg PO DAILY 03/29/22 [History] Midodrine HCl [ProAmatine] 10 mg PO QID PRN 02/14/23 [History] glipiZIDE [Glucotrol] 10 mg PO DAILY@1400 02/14/23 [History] Sucralfate [Carafate] 1 gm PO BID 02/15/23 [History] Docusate [Colace] 100 mg PO BID 05/10/23 [History] Fludrocortisone [Florinef] 0.1 mg PO DAILY 05/10/23 [History] Ferrous Sulfate [Feosol] 325 mg PO DAILY 30 Days #60 tab 05/12/23 [Rx] Amiodarone [Cordarone] 200 mg PO DAILY 30 Days #30 tab 06/18/23 [Rx] L.acidoph,Paracasei, B.lactis [Probiotic] 1 cap PO DAILY 07/07/23 [History] Torsemide [Demadex] 80 mg PO DAILY 07/07/23 [History] glipiZIDE [Glucotrol] 20 mg PO DAILY@0800 07/07/23 [History] Apixaban [Eliquis] 5 mg PO BID #60 tab 07/12/23 [Rx] Darbepoetin Chirag [Aranesp] 60 mcg SQ Q7D 30 Days #4 each 07/12/23 [Rx] Nystatin 100,000 Unit/gm Powd [Mycostatin Powder] 1 applic TOPICAL BID 30 Days #2 each 07/12/23 [Rx] Follow up Appointment(s)/Referral(s): Rusty Witt MD [STAFF PHYSICIAN] - 07/25/23 11:30 am Corin Cortez MD [STAFF PHYSICIAN] - 1 Week (Dialysis) [facility], [NON-STAFF] - As Needed Nayan Georges [Primary Care Provider] - 07/26/23 1:00 pm Patient Instructions/Handouts: Fluid Restriction (DC) Activity/Diet/Wound Care/Special Instructions: Activity Limited until follow-up Follow-up with primary care provider on discharge Keep your dialysis appointment for tomorrow for hemodialysis follow-up with cardiology outpatient to discuss cardioversion Continue taking medications as prescribed Continue current diet Discharge Disposition: HOME WITH HOME HEALTH SERVICES
== END 2023-07-12 17:01 | disposition home health service (06) | DRG 291 ==
LOC: EC 17:03 → 4SSUR 19:42 → OBSVTOIN 19:43 → 4SSUR 20:07
PROVIDERS: ADMIT Hospitalist; ATTEND Hospitalist
PROC: 5A1D70Z Performance of Urinary Filtration, Intermittent, Less than 6 Hours Per Day (ICD-10-PCS; principal; 2023-07-09)
DX: I13.2 Hypertensive heart and chronic kidney disease with heart failure and with stage 5 chronic kidney disease, or end stage renal disease (principal); I50.23 Acute on chronic systolic (congestive) heart failure; N18.6 End stage renal disease; I48.19 Other persistent atrial fibrillation; J96.11 Chronic respiratory failure with hypoxia; Z68.36 Body mass index [BMI] 36.0-36.9, adult; R53.81 Other malaise; D63.1 Anemia in chronic kidney disease; I27.20 Pulmonary hypertension, unspecified; E11.22 Type 2 diabetes mellitus with diabetic chronic kidney disease; E66.01 Morbid (severe) obesity due to excess calories; E78.5 Hyperlipidemia, unspecified; E87.5 Hyperkalemia; I42.8 Other cardiomyopathies; I95.89 Other hypotension; R62.7 Adult failure to thrive; J44.9 Chronic obstructive pulmonary disease, unspecified; K21.9 Gastro-esophageal reflux disease without esophagitis; M19.90 Unspecified osteoarthritis, unspecified site; G47.30 Sleep apnea, unspecified; Z99.81 Dependence on supplemental oxygen; M10.9 Gout, unspecified; K59.00 Constipation, unspecified; Z86.14 Personal history of Methicillin resistant Staphylococcus aureus infection; Z99.2 Dependence on renal dialysis; Z95.0 Presence of cardiac pacemaker; Z91.81 History of falling; Z86.718 Personal history of other venous thrombosis and embolism; Z79.899 Other long term (current) drug therapy; Z79.84 Long term (current) use of oral hypoglycemic drugs; Z79.82 Long term (current) use of aspirin; Z79.52 Long term (current) use of systemic steroids; Z79.01 Long term (current) use of anticoagulants; Z11.52 Encounter for screening for COVID-19; Z88.8 Allergy status to other drugs, medicaments and biological substances; Z87.891 Personal history of nicotine dependence
CPT/HCPCS: 36415; 71046; 80048; 80053; 81001; 83036; 83880; 85025; 85610; 85730; 87636; 90935; 93005; 93308; 94660; 94760; 99285

== ENCOUNTER 2023-07-26 23:53 | Inpatient (IN) | payer OTHER, MEDICARE ==
--- NOTE | 2023-07-27 00:01 | ED ---
Weakness HPI - General Stated complaint: Fall Time Seen by Provider: 07/26/23 23:57 Source: RN notes reviewed, old records reviewed Limitations: no limitations - History of Present Illness Initial comments: This is a 78-year-old female to the emergency room for evaluation today. Patient presents today for evaluation regards to fall. Fall with weakness patient's legs gave out on him all walking. Patient has no real complaints of pain with feels significantly ill and weak here in the ER. Does admit to some generalized pain which is chronic for this patient. Denies any headache chest pain shortness breath or abdominal pain. MD Complaint: generalized weakness, lack of energy, difficulty walking Location: generalized Severity: moderate Severity scale (1-10): 5 Consistency: constant Improves with: none Context: recent illness, history of similar Associated Symptoms: denies other symptoms - Related Data Home Medications Medication Instructions Recorded Confirmed allopurinoL [Zyloprim] 300 mg PO DAILY 11/21/14 07/27/23 Acetaminophen Tab [Tylenol] 650 mg PO BID 07/12/16 07/27/23 Multivitamins, Thera [Multivitamin 1 tab PO DAILY 10/03/17 07/27/23 (formulary)] Lovastatin [Altoprev] 40 mg PO HS 05/24/21 07/27/23 Omeprazole 40 mg PO DAILY 03/29/22 07/27/23 Midodrine HCl [ProAmatine] 10 mg PO QID PRN 02/14/23 07/27/23 glipiZIDE [Glucotrol] 10 mg PO DAILY@1400 02/14/23 07/27/23 Sucralfate [Carafate] 1 gm PO BID 02/15/23 07/27/23 Docusate [Colace] 100 mg PO BID 05/10/23 07/27/23 Fludrocortisone [Florinef] 0.1 mg PO DAILY 05/10/23 07/27/23 L.acidoph,Paracasei, B.lactis 1 cap PO DAILY 07/07/23 07/27/23 [Probiotic] Torsemide [Demadex] 80 mg PO DAILY 07/07/23 07/27/23 glipiZIDE [Glucotrol] 20 mg PO DAILY@0800 07/07/23 07/27/23 Previous Rx's Medication Instructions Recorded Ferrous Sulfate [Feosol] 325 mg PO DAILY 30 Days #60 tab 05/12/23 Amiodarone [Cordarone] 200 mg PO DAILY 30 Days #30 tab 06/18/23 Apixaban [Eliquis] 5 mg PO BID #60 tab 07/12/23 Darbepoetin Chirag [Aranesp] 60 mcg SQ Q7D 30 Days #4 each 07/12/23 Nystatin 100,000 Unit/gm Powd 1 applic TOPICAL BID 30 Days #2 07/12/23 [Mycostatin Powder] each Allergies Allergy/AdvReac Type Severity Reaction Status Date / Time lisinopril AdvReac Mild Cough Verified 07/27/23 08:23 Review of Systems ROS Statement: Those systems with pertinent positive or pertinent negative responses have been documented in the HPI. ROS Other: All systems not noted in ROS Statement are negative. Past Medical History Past Medical History: Atrial Fibrillation, COPD, Diabetes Mellitus, Dialysis, GERD/Reflux, Hyperlipidemia, Hypertension, Osteoarthritis (OA), Renal Disease, Sleep Apnea/CPAP/BIPAP, Thyroid Disorder Additional Past Medical History / Comment(s): O2 3L per nasal cannula. Dialysis MOWEFR. Cardiomyopathy. Gout. Constipation. 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 hemodialysis cath, peritoneal dialysis Past Anesthesia/Blood Transfusion Reactions: No Reported Reaction Type of Cardiac Device: Permanent Pacemaker Device Placement Date:: 10/17/2012 Past Psychological History: No Psychological Hx Reported Smoking Status: Former smoker Past Alcohol Use History: None Reported Past Drug Use History: None Reported - Past Family History Father History Unknown: Yes Additional Family Medical History / Comment(s): "hardening of the arteries" Mother History Unknown: Yes Additional Family Medical History / Comment(s): "water in the lungs" at 95. General Exam General appearance: alert, in no apparent distress Head exam: Present: atraumatic, normocephalic, normal inspection Eye exam: Present: normal appearance, PERRL, EOMI. Absent: scleral icterus, conjunctival injection, periorbital swelling ENT exam: Present: normal exam, mucous membranes moist Neck exam: Present: normal inspection. Absent: tenderness, meningismus, lymphadenopathy Respiratory exam: Present: normal lung sounds bilaterally. Absent: respiratory distress, wheezes, rales, rhonchi, stridor Cardiovascular Exam: Present: regular rate, normal rhythm, normal heart sounds. Absent: systolic murmur, diastolic murmur, rubs, gallop, clicks GI/Abdominal exam: Present: soft, normal bowel sounds. Absent: distended, tenderness, guarding, rebound, rigid Extremities exam: Present: normal inspection, full ROM, normal capillary refill. Absent: tenderness, pedal edema, joint swelling, calf tenderness Back exam: Present: normal inspection Neurological exam: Present: alert, oriented X3, CN II-XII intact Psychiatric exam: Present: normal affect, normal mood Skin exam: Present: warm, dry, intact, normal color. Absent: rash Course Vital Signs 07/27/23 07/27/23 07/27/23 00:02 03:00 04:00 Temperature 98.0 F Pulse Rate 63 61 65 Pulse Rate [ Left] Respiratory 20 18 18 Rate Blood Pressure 98/47 120/72 124/77 Blood Pressure [Left Calf] O2 Sat by Pulse 92 L 97 97 Oximetry 07/27/23 07/27/23 07/27/23 05:00 05:52 06:00 Temperature Pulse Rate 63 60 59 L Pulse Rate [ Left] Respiratory 18 14 Rate Blood Pressure 119/69 119/69 Blood Pressure [Left Calf] O2 Sat by Pulse 97 96 Oximetry 07/27/23 07/27/23 07/27/23 06:04 06:05 06:10 Temperature Pulse Rate 62 68 60 Pulse Rate [ Left] Respiratory 20 23 Rate Blood Pressure 124/75 124/75 Blood Pressure [Left Calf] O2 Sat by Pulse 95 93 L Oximetry 07/27/23 07/27/23 07/27/23 06:20 06:30 06:40 Temperature Pulse Rate 60 59 L 60 Pulse Rate [ Left] Respiratory 27 H 22 18 Rate Blood Pressure 124/75 124/75 124/75 Blood Pressure [Left Calf] O2 Sat by Pulse 93 L 92 L 91 L Oximetry 07/27/23 07/27/23 07/27/23 06:50 07:00 07:10 Temperature Pulse Rate 60 60 60 Pulse Rate [ Left] Respiratory 18 19 17 Rate Blood Pressure 124/75 124/75 Blood Pressure [Left Calf] O2 Sat by Pulse 94 L 94 L 94 L Oximetry 07/27/23 07/27/23 07/27/23 07:20 07:30 07:40 Temperature Pulse Rate 60 60 61 Pulse Rate [ 60 Left] Respiratory 15 16 25 H Rate Blood Pressure Blood Pressure 131/72 [Left Calf] O2 Sat by Pulse 95 95 90 L Oximetry 07/27/23 07/27/23 07/27/23 07:50 08:00 08:10 Temperature Pulse Rate 60 61 59 L Pulse Rate [ Left] Respiratory 16 13 16 Rate Blood Pressure Blood Pressure [Left Calf] O2 Sat by Pulse 89 L 92 L 94 L Oximetry 07/27/23 07/27/23 07/27/23 08:20 08:30 08:40 Temperature Pulse Rate 60 60 60 Pulse Rate [ Left] Respiratory 16 22 16 Rate Blood Pressure Blood Pressure [Left Calf] O2 Sat by Pulse 94 L 98 99 Oximetry 07/27/23 07/27/23 07/27/23 08:50 08:51 09:00 Temperature Pulse Rate 59 L 60 59 L Pulse Rate [ Left] Respiratory 18 18 17 Rate Blood Pressure 137/63 137/63 Blood Pressure [Left Calf] O2 Sat by Pulse 97 97 99 Oximetry 07/27/23 07/27/23 07/27/23 09:10 09:20 09:30 Temperature Pulse Rate 60 64 60 Pulse Rate [ Left] Respiratory 26 H 21 25 H Rate Blood Pressure 133/78 133/78 133/78 Blood Pressure [Left Calf] O2 Sat by Pulse 97 97 93 L Oximetry 07/27/23 07/27/23 07/27/23 09:40 09:50 10:00 Temperature Pulse Rate 61 64 63 Pulse Rate [ Left] Respiratory 40 H 17 19 Rate Blood Pressure 133/78 133/78 133/78 Blood Pressure [Left Calf] O2 Sat by Pulse 92 L 92 L 93 L Oximetry 07/27/23 07/27/23 07/27/23 10:10 10:20 10:30 Temperature Pulse Rate 68 60 60 Pulse Rate [ Left] Respiratory 22 18 15 Rate Blood Pressure 141/69 141/69 141/69 Blood Pressure [Left Calf] O2 Sat by Pulse 91 L 96 97 Oximetry 07/27/23 07/27/23 07/27/23 10:40 10:50 11:00 Temperature Pulse Rate 60 61 60 Pulse Rate [ Left] Respiratory 18 18 20 Rate Blood Pressure 141/69 141/69 141/69 Blood Pressure [Left Calf] O2 Sat by Pulse 98 95 95 Oximetry 07/27/23 11:10 Temperature Pulse Rate 60 Pulse Rate [ Left] Respiratory 17 Rate Blood Pressure 132/74 Blood Pressure [Left Calf] O2 Sat by Pulse 96 Oximetry - Reevaluation(s) Reevaluation #1: 07/27/23 02:45 Medical records reviewed Reevaluation #2: 07/27/23 06:29 Still feels severely weak here in the ER Reevaluation #3: 07/27/23 06:29 Patient has adequate pain control Reevaluation #4: 07/27/23 02:45 Was pt. sent in by a medical professional or institution ([facility], SWIM INSTRUCTOR, urgent care, hospital, or [facility]...) When possible be specific @ -no Did you speak to anyone other than the patient for history (EMS, parent, family, police, friend...)? What history was obtained from this source @ -no Did you review nursing and triage notes (agree or disagree)? Why? @ -agree Are old charts reviewed (outside hosp., previous admission, EMS record, old EKG, old radiological studies, urgent care reports/EKG's, [facility] records)? Report findings @ -yes Differential Diagnosis (chest pain, altered mental status, abdominal pain women, abdominal pain men, vaginal bleeding, weakness, fever, dyspnea, syncope, headache, dizziness, GI bleed, back pain, seizure, CVA, palpatations, mental health, musculoskeletal)? @ -prior EKG interpreted by me (3pts min.). @ -yes X-rays interpreted by me (1pt min.). @ -yes negative for acute disease CT interpreted by me (1pt min.). @ -yes if for acute disease U/S interpreted by me (1pt. min.). @ -no What testing was considered but not performed or refused? (CT, X-rays, U/S, labs)? Why? @ -none What meds were considered but not given or refused? Why? @ -none Did you discuss the management of the patient with other professionals (professionals i.e. [facility]addad, SWIM INSTRUCTOR, lab, RT, psych nurse, social professionals, margarine churn operator, teacher, disability insurance hearing officer, case management manager)? Give summary @ -no Was smoking cessation discussed for >3mins.? @ -no Was critical care preformed (if so, how long)? @ -no Were there social determinants of health that impacted care today? How? (Homelessness, low income, unemployed, alcoholism, drug addiction, transportation, low edu. Level, literacy, decrease access to med. care, snf, rehab)? @ -none Was there de-escalation of care discussed even if they declined (Discuss DNR or withdrawal of care, Hospice)? DNR status @ -no What co-morbidities impacted this encounter? (DM, HTN, Smoking, COPD, CAD, Cancer, CVA, ARF, Chemo, Hep., AIDS, mental health diagnosis, sleep apnea, morbid obesity)? @ -none Was patient admitted / discharged? Hospital course, mention meds given and route, prescriptions, significant lab abnormalities, going to OR and other pertinent info. @ - 78 male to the emergency department today for evaluation of severe weakness stability chronic pain. Patient is dialysis patient on dialysis, comes in for severe weakness and persistent weakness here in the emergency room. Patient is also complaining of some generalized pain with history of chronic pain. Patient denies any current acute symptoms. Patient will be admitted for hydration, acu te on chronic renal failure PTOT and pain control Admitted Undiagnosed new problem with uncertain prognosis? @ -no Drug Therapy requiring intensive monitoring for toxicity (Heparin, Nitro, Insulin, Cardizem)? @ -no Were any procedures done? @ -no Diagnosis/symptom? @ -Weakness, debility, chronic pain, fall Acute, or Chronic, or Acute on Chronic? @ -Acute Uncomplicated (without systemic symptoms) or Complicated (systemic symptoms)? @ -Complicated Side effects of treatment? @ -no Exacerbation, Progression, or Severe Exacerbation? @ -exacerbation Poses a threat to life or bodily function? How? (Chest pain, USA, CT, pneumonia, PE, COPD, DKA, ARF, appy, cholecystitis, CVA, Diverticulitis, Homicidal, Suicidal, threat to staff... and all critical care pts) @ -yes with significant extremes of age and comorbidities Reevaluation #5: 07/27/23 02:45 Differential Weakness: Hypoglycemia, shock, sepsis, hyponatremia, anemia, infection, CT, ETOH, adverse medicine reaction, overdose, stroke, this is not meant to be an all-inclusive list. - Consultations Consultation #1: PM were agrees to admit this patient Medical Decision Making - Medical Decision Making 78 male to the emergency department today for evaluation of severe weakness stab ility chronic pain. Patient is dialysis patient on dialysis, comes in for severe weakness and persistent weakness here in the emergency room. Patient is also complaining of some generalized pain with history of chronic pain. Patient denies any current acute symptoms. Patient will be admitted for hydration, acute on chronic renal failure PTOT and pain control - Lab Data Result diagrams: 08/03/23 04:09 08/03/23 04:09 Lab Results 07/27/23 07/27/23 07/27/23 Range/Units 02:00 02:00 02:00 WBC 9.2 (3.8-10.6) k/uL RBC 3.34 L (4.30-5.90) m/uL Hgb 10.8 L (13.0-17.5) gm/dL Hct 35.9 L (39.0-53.0) % MCV 107.3 H (80.0-100.0) fL MCH 32.3 (25.0-35.0) pg MCHC 30.1 L (31.0-37.0) g/dL RDW 20.4 H (11.5-15.5) % Plt Count 183 (150-450) k/uL MPV 8.6 Immature Gran % (Auto) % Absolute Nucleated RBC % Neutrophils % 84 % Lymphocytes % 9 % Monocytes % 5 % Eosinophils % 1 % Basophils % 0 % Immature Gran # (0.00-0.04) X 10*3/uL Neutrophils # 7.7 (1.3-7.7) k/uL Lymphocytes # 0.8 L (1.0-4.8) k/uL Monocytes # 0.5 (0-1.0) k/uL Eosinophils # 0.1 (0-0.7) k/uL Basophils # 0.0 (0-0.2) k/uL NRBC/100 WBC Diff (0.00-0.01) X 10*3/uL Manual Slide Review Performed Polychromasia Present Hypochromasia Marked Poikilocytosis Slight Anisocytosis Moderate Macrocytosis Marked A Target Cells Present PT 12.2 (10.0-12.5) sec INR 1.1 (<1.2) APTT 28.3 (22.0-30.0) sec Sample Site ABG pH (7.35-7.45) ABG pCO2 (35-45) mmHg ABG pO2 (83-108) mmHg ABG HCO3 (21-25) mmol/L ABG Total CO2 (19-24) mmol/L ABG O2 Saturation (94-97) % ABG Base Excess mmol/L Jose Test FiO2 % Sodium 132 L (137-145) mmol/L Potassium (3.5-5.1) mmol/L Chloride 96 L (98-107) mmol/L Carbon Dioxide 16 L (22-30) mmol/L Anion Gap 20 mmol/L BUN 45 H (9-20) mg/dL Creatinine 4.43 H (0.66-1.25) mg/dL Est GFR (CKD-EPI) (>=60) Est GFR (CKD-EPI)AfAm 14 (>60 ml/min/1.73 sqM) Est GFR (CKD-EPI)NonAf 12 (>60 ml/min/1.73 sqM) BUN/Creatinine Ratio (12.00-20.00) Ratio Glucose 176 H (74-99) mg/dL POC Glucose (mg/dL) (70-110) mg/dL POC Glu [employer] ID Lactic Ac Sepsis Rflx Plasma Lactic Acid Jarvis (0.7-2.0) mmol/L Calcium 9.1 (8.4-10.2) mg/dL Phosphorus 5.8 H (2.5-4.5) mg/dL Magnesium 2.2 (1.6-2.3) mg/dL Total Bilirubin 0.7 (0.2-1.3) mg/dL AST 43 (17-59) U/L ALT 28 (4-49) U/L Alkaline Phosphatase 181 H (38-126) U/L Troponin I (0.000-0.034) ng/mL Total Protein 7.6 (6.3-8.2) g/dL Albumin 4.0 (3.5-5.0) g/dL Globulin g/dL Albumin/Globulin Ratio TSH 7.090 H (0.465-4.680) mIU/L Urine Color Urine Appearance (Clear) Urine pH (5.0-8.0) Ur Specific [place] (1.001-1.035) Urine Protein (Negative) Urine Glucose (UA) (Negative) Urine Ketones (Negative) Urine Blood (Negative) Urine Nitrite (Negative) Urine Bilirubin (Negative) Urine Urobilinogen (<2.0) mg/dL Ur Leukocyte Esterase (Negative) Urine RBC (0-5) /hpf Urine WBC (0-5) /hpf Ur Squamous Epith Cells (0-4) /hpf Urine Mucus (None) /hpf Urine Yeast (Budding) (None) /hpf 07/27/23 07/27/23 07/27/23 Range/Units 02:00 02:00 03:04 WBC (3.8-10.6) k/uL RBC (4.30-5.90) m/uL Hgb (13.0-17.5) gm/dL Hct (39.0-53.0) % MCV (80.0-100.0) fL MCH (25.0-35.0) pg MCHC (31.0-37.0) g/dL RDW (11.5-15.5) % Plt Count (150-450) k/uL MPV Immature Gran % (Auto) % Absolute Nucleated RBC % Neutrophils % % Lymphocytes % % Monocytes % % Eosinophils % % Basophils % % Immature Gran # (0.00-0.04) X 10*3/uL Neutrophils # (1.3-7.7) k/uL Lymphocytes # (1.0-4.8) k/uL Monocytes # (0-1.0) k/uL Eosinophils # (0-0.7) k/uL Basophils # (0-0.2) k/uL NRBC/100 WBC Diff (0.00-0.01) X 10*3/uL Manual Slide Review Polychromasia Hypochromasia Poikilocytosis Anisocytosis Macrocytosis Target Cells PT (10.0-12.5) sec INR (<1.2) APTT (22.0-30.0) sec Sample Site ABG pH (7.35-7.45) ABG pCO2 (35-45) mmHg ABG pO2 (83-108) mmHg ABG HCO3 (21-25) mmol/L ABG Total CO2 (19-24) mmol/L ABG O2 Saturation (94-97) % ABG Base Excess mmol/L Jose Test FiO2 % Sodium (137-145) mmol/L Potassium (3.5-5.1) mmol/L Chloride (98-107) mmol/L Carbon Dioxide (22-30) mmol/L Anion Gap mmol/L BUN (9-20) mg/dL Creatinine (0.66-1.25) mg/dL Est GFR (CKD-EPI) (>=60) Est GFR (CKD-EPI)AfAm (>60 ml/min/1.73 sqM) Est GFR (CKD-EPI)NonAf (>60 ml/min/1.73 sqM) BUN/Creatinine Ratio (12.00-20.00) Ratio Glucose (74-99) mg/dL POC Glucose (mg/dL) (70-110) mg/dL POC Glu [employer] ID Lactic Ac Sepsis Rflx Y Plasma Lactic Acid Jarvis 2.8 H* (0.7-2.0) mmol/L Calcium (8.4-10.2) mg/dL Phosphorus (2.5-4.5) mg/dL Magnesium (1.6-2.3) mg/dL Total Bilirubin (0.2-1.3) mg/dL AST (17-59) U/L ALT (4-49) U/L Alkaline Phosphatase (38-126) U/L Troponin I 0.020 (0.000-0.034) ng/mL Total Protein (6.3-8.2) g/dL Albumin (3.5-5.0) g/dL Globulin g/dL Albumin/Globulin Ratio TSH (0.465-4.680) mIU/L Urine Color Urine Appearance (Clear) Urine pH (5.0-8.0) Ur Specific [place] (1.001-1.035) Urine Protein (Negative) Urine Glucose (UA) (Negative) Urine Ketones (Negative) Urine Blood (Negative) Urine Nitrite (Negative) Urine Bilirubin (Negative) Urine Urobilinogen (<2.0) mg/dL Ur Leukocyte Esterase (Negative) Urine RBC (0-5) /hpf Urine WBC (0-5) /hpf Ur Squamous Epith Cells (0-4) /hpf Urine Mucus (None) /hpf Urine Yeast (Budding) (None) /hpf 07/27/23 07/27/23 07/27/23 Range/Units 06:37 07:19 07:26 WBC (3.8-10.6) k/uL RBC (4.30-5.90) m/uL Hgb (13.0-17.5) gm/dL Hct (39.0-53.0) % MCV (80.0-100.0) fL MCH (25.0-35.0) pg MCHC (31.0-37.0) g/dL RDW (11.5-15.5) % Plt Count (150-450) k/uL MPV Immature Gran % (Auto) % Absolute Nucleated RBC % Neutrophils % % Lymphocytes % % Monocytes % % Eosinophils % % Basophils % % Immature Gran # (0.00-0.04) X 10*3/uL Neutrophils # (1.3-7.7) k/uL Lymphocytes # (1.0-4.8) k/uL Monocytes # (0-1.0) k/uL Eosinophils # (0-0.7) k/uL Basophils # (0-0.2) k/uL NRBC/100 WBC Diff (0.00-0.01) X 10*3/uL Manual Slide Review Polychromasia Hypochromasia Poikilocytosis Anisocytosis Macrocytosis Target Cells PT (10.0-12.5) sec INR (<1.2) APTT (22.0-30.0) sec Sample Site ABG pH (7.35-7.45) ABG pCO2 (35-45) mmHg ABG pO2 (83-108) mmHg ABG HCO3 (21-25) mmol/L ABG Total CO2 (19-24) mmol/L ABG O2 Saturation (94-97) % ABG Base Excess mmol/L Jose Test FiO2 % Sodium (137-145) mmol/L Potassium (3.5-5.1) mmol/L Chloride (98-107) mmol/L Carbon Dioxide (22-30) mmol/L Anion Gap mmol/L BUN (9-20) mg/dL Creatinine (0.66-1.25) mg/dL Est GFR (CKD-EPI) (>=60) Est GFR (CKD-EPI)AfAm (>60 ml/min/1.73 sqM) Est GFR (CKD-EPI)NonAf (>60 ml/min/1.73 sqM) BUN/Creatinine Ratio (12.00-20.00) Ratio Glucose (74-99) mg/dL POC Glucose (mg/dL) 56 L (70-110) mg/dL POC Glu [employer] ID Butch Oconnell Lactic Ac Sepsis Rflx Plasma Lactic Acid Jarvis 1.3 (0.7-2.0) mmol/L Calcium (8.4-10.2) mg/dL Phosphorus (2.5-4.5) mg/dL Magnesium (1.6-2.3) mg/dL Total Bilirubin (0.2-1.3) mg/dL AST (17-59) U/L ALT (4-49) U/L Alkaline Phosphatase (38-126) U/L Troponin I (0.000-0.034) ng/mL Total Protein (6.3-8.2) g/dL Albumin (3.5-5.0) g/dL Globulin g/dL Albumin/Globulin Ratio TSH (0.465-4.680) mIU/L Urine Color Yellow Urine Appearance Cloudy (Clear) Urine pH 5.0 (5.0-8.0) Ur Specific [place] 1.022 (1.001-1.035) Urine Protein Trace H (Negative) Urine Glucose (UA) Negative (Negative) Urine Ketones Negative (Negative) Urine Blood Large H (Negative) Urine Nitrite Negative (Negative) Urine Bilirubin 1+ H (Negative) Urine Urobilinogen 2.0 (<2.0) mg/dL Ur Leukocyte Esterase Large H (Negative) Urine RBC >182 H (0-5) /hpf Urine WBC 36 H (0-5) /hpf Ur Squamous Epith Cells 14 H (0-4) /hpf Urine Mucus Rare H (None) /hpf Urine Yeast (Budding) Occasional H (None) /hpf 07/27/23 07/27/23 07/27/23 Range/Units 10:44 12:58 17:22 WBC (3.8-10.6) k/uL RBC (4.30-5.90) m/uL Hgb (13.0-17.5) gm/dL Hct (39.0-53.0) % MCV (80.0-100.0) fL MCH (25.0-35.0) pg MCHC (31.0-37.0) g/dL RDW (11.5-15.5) % Plt Count (150-450) k/uL MPV Immature Gran % (Auto) % Absolute Nucleated RBC % Neutrophils % % Lymphocytes % % Monocytes % % Eosinophils % % Basophils % % Immature Gran # (0.00-0.04) X 10*3/uL Neutrophils # (1.3-7.7) k/uL Lymphocytes # (1.0-4.8) k/uL Monocytes # (0-1.0) k/uL Eosinophils # (0-0.7) k/uL Basophils # (0-0.2) k/uL NRBC/100 WBC Diff (0.00-0.01) X 10*3/uL Manual Slide Review Polychromasia Hypochromasia Poikilocytosis Anisocytosis Macrocytosis Target Cells PT (10.0-12.5) sec INR (<1.2) APTT (22.0-30.0) sec Sample Site ABG pH (7.35-7.45) ABG pCO2 (35-45) mmHg ABG pO2 (83-108) mmHg ABG HCO3 (21-25) mmol/L ABG Total CO2 (19-24) mmol/L ABG O2 Saturation (94-97) % ABG Base Excess mmol/L Jose Test FiO2 % Sodium (137-145) mmol/L Potassium (3.5-5.1) mmol/L Chloride (98-107) mmol/L Carbon Dioxide (22-30) mmol/L Anion Gap mmol/L BUN (9-20) mg/dL Creatinine (0.66-1.25) mg/dL Est GFR (CKD-EPI) (>=60) Est GFR (CKD-EPI)AfAm (>60 ml/min/1.73 sqM) Est GFR (CKD-EPI)NonAf (>60 ml/min/1.73 sqM) BUN/Creatinine Ratio (12.00-20.00) Ratio Glucose (74-99) mg/dL POC Glucose (mg/dL) 116 H 122 H 173 H (70-110) mg/dL POC Glu [employer] ID Brea Wallace Tiffany Rhody, Geraldine Lactic Ac Sepsis Rflx Plasma Lactic Acid Jarvis (0.7-2.0) mmol/L Calcium (8.4-10.2) mg/dL Phosphorus (2.5-4.5) mg/dL Magnesium (1.6-2.3) mg/dL Total Bilirubin (0.2-1.3) mg/dL AST (17-59) U/L ALT (4-49) U/L Alkaline Phosphatase (38-126) U/L Troponin I (0.000-0.034) ng/mL Total Protein (6.3-8.2) g/dL Albumin (3.5-5.0) g/dL Globulin g/dL Albumin/Globulin Ratio TSH (0.465-4.680) mIU/L Urine Color Urine Appearance (Clear) Urine pH (5.0-8.0) Ur Specific [place] (1.001-1.035) Urine Protein (Negative) Urine Glucose (UA) (Negative) Urine Ketones (Negative) Urine Blood (Negative) Urine Nitrite (Negative) Urine Bilirubin (Negative) Urine Urobilinogen (<2.0) mg/dL Ur Leukocyte Esterase (Negative) Urine RBC (0-5) /hpf Urine WBC (0-5) /hpf Ur Squamous Epith Cells (0-4) /hpf Urine Mucus (None) /hpf Urine Yeast (Budding) (None) /hpf 07/27/23 07/28/23 07/28/23 Range/Units 20:44 00:38 00:55 WBC (3.8-10.6) k/uL RBC (4.30-5.90) m/uL Hgb (13.0-17.5) gm/dL Hct (39.0-53.0) % MCV (80.0-100.0) fL MCH (25.0-35.0) pg MCHC (31.0-37.0) g/dL RDW (11.5-15.5) % Plt Count (150-450) k/uL MPV Immature Gran % (Auto) % Absolute Nucleated RBC % Neutrophils % % Lymphocytes % % Monocytes % % Eosinophils % % Basophils % % Immature Gran # (0.00-0.04) X 10*3/uL Neutrophils # (1.3-7.7) k/uL Lymphocytes # (1.0-4.8) k/uL Monocytes # (0-1.0) k/uL Eosinophils # (0-0.7) k/uL Basophils # (0-0.2) k/uL NRBC/100 WBC Diff (0.00-0.01) X 10*3/uL Manual Slide Review Polychromasia Hypochromasia Poikilocytosis Anisocytosis Macrocytosis Target Cells PT (10.0-12.5) sec INR (<1.2) APTT (22.0-30.0) sec Sample Site ABG pH (7.35-7.45) ABG pCO2 (35-45) mmHg ABG pO2 (83-108) mmHg ABG HCO3 (21-25) mmol/L ABG Total CO2 (19-24) mmol/L ABG O2 Saturation (94-97) % ABG Base Excess mmol/L Jose Test FiO2 % Sodium (137-145) mmol/L Potassium (3.5-5.1) mmol/L Chloride (98-107) mmol/L Carbon Dioxide (22-30) mmol/L Anion Gap mmol/L BUN (9-20) mg/dL Creatinine (0.66-1.25) mg/dL Est GFR (CKD-EPI) (>=60) Est GFR (CKD-EPI)AfAm (>60 ml/min/1.73 sqM) Est GFR (CKD-EPI)NonAf (>60 ml/min/1.73 sqM) BUN/Creatinine Ratio (12.00-20.00) Ratio Glucose (74-99) mg/dL POC Glucose (mg/dL) 173 H 202 H 211 H (70-110) mg/dL POC Glu [employer] Ortiz, Santhosh Mcmanus John Lactic Ac Sepsis Rflx Plasma Lactic Acid Jarvis (0.7-2.0) mmol/L Calcium (8.4-10.2) mg/dL Phosphorus (2.5-4.5) mg/dL Magnesium (1.6-2.3) mg/dL Total Bilirubin (0.2-1.3) mg/dL AST (17-59) U/L ALT (4-49) U/L Alkaline Phosphatase (38-126) U/L Troponin I (0.000-0.034) ng/mL Total Protein (6.3-8.2) g/dL Albumin (3.5-5.0) g/dL Globulin g/dL Albumin/Globulin Ratio TSH (0.465-4.680) mIU/L Urine Color Urine Appearance (Clear) Urine pH (5.0-8.0) Ur Specific [place] (1.001-1.035) Urine Protein (Negative) Urine Glucose (UA) (Negative) Urine Ketones (Negative) Urine Blood (Negative) Urine Nitrite (Negative) Urine Bilirubin (Negative) Urine Urobilinogen (<2.0) mg/dL Ur Leukocyte Esterase (Negative) Urine RBC (0-5) /hpf Urine WBC (0-5) /hpf Ur Squamous Epith Cells (0-4) /hpf Urine Mucus (None) /hpf Urine Yeast (Budding) (None) /hpf 07/28/23 07/28/23 07/28/23 Range/Units 01:09 01:20 01:20 WBC 11.6 H (3.8-10.6) k/uL RBC 3.16 L (4.30-5.90) m/uL Hgb 10.1 L (13.0-17.5) gm/dL Hct 34.7 L (39.0-53.0) % MCV 109.9 H (80.0-100.0) fL MCH 32.0 (25.0-35.0) pg MCHC 29.1 L (31.0-37.0) g/dL RDW 20.8 H (11.5-15.5) % Plt Count 180 (150-450) k/uL MPV 8.3 Immature Gran % (Auto) % Absolute Nucleated RBC % Neutrophils % 50 % Lymphocytes % 39 % Monocytes % 7 % Eosinophils % 1 % Basophils % 1 % Immature Gran # (0.00-0.04) X 10*3/uL Neutrophils # 5.7 (1.3-7.7) k/uL Lymphocytes # 4.5 (1.0-4.8) k/uL Monocytes # 0.9 (0-1.0) k/uL Eosinophils # 0.1 (0-0.7) k/uL Basophils # 0.1 (0-0.2) k/uL NRBC/100 WBC Diff (0.00-0.01) X 10*3/uL Manual Slide Review Polychromasia Hypochromasia Marked Poikilocytosis Anisocytosis Moderate Macrocytosis Marked A Target Cells PT (10.0-12.5) sec INR (<1.2) APTT (22.0-30.0) sec Sample Site Right Radial ABG pH 7.23 L (7.35-7.45) ABG pCO2 49 H (35-45) mmHg ABG pO2 74 L (83-108) mmHg ABG HCO3 21 (21-25) mmol/L ABG Total CO2 22 (19-24) mmol/L ABG O2 Saturation 89.7 L (94-97) % ABG Base Excess -7.1 mmol/L Jose Test Yes FiO2 100 % Sodium 133 L (137-145) mmol/L Potassium 5.9 H (3.5-5.1) mmol/L Chloride 95 L (98-107) mmol/L Carbon Dioxide 20 L (22-30) mmol/L Anion Gap 18 mmol/L BUN 29 H (9-20) mg/dL Creatinine 3.10 H (0.66-1.25) mg/dL Est GFR (CKD-EPI) (>=60) Est GFR (CKD-EPI)AfAm 21 (>60 ml/min/1.73 sqM) Est GFR (CKD-EPI)NonAf 18 (>60 ml/min/1.73 sqM) BUN/Creatinine Ratio (12.00-20.00) Ratio Glucose 202 H (74-99) mg/dL POC Glucose (mg/dL) (70-110) mg/dL POC Glu [employer] ID Lactic Ac Sepsis Rflx Plasma Lactic Acid Jarvis (0.7-2.0) mmol/L Calcium 8.1 L (8.4-10.2) mg/dL Phosphorus (2.5-4.5) mg/dL Magnesium 2.0 (1.6-2.3) mg/dL Total Bilirubin 0.6 (0.2-1.3) mg/dL AST 40 (17-59) U/L ALT 32 (4-49) U/L Alkaline Phosphatase 182 H (38-126) U/L Troponin I (0.000-0.034) ng/mL Total Protein 6.6 (6.3-8.2) g/dL Albumin 3.4 L (3.5-5.0) g/dL Globulin 3.2 g/dL Albumin/Globulin Ratio 1.1 TSH (0.465-4.680) mIU/L Urine Color Urine Appearance (Clear) Urine pH (5.0-8.0) Ur Specific [place] (1.001-1.035) Urine Protein (Negative) Urine Glucose (UA) (Negative) Urine Ketones (Negative) Urine Blood (Negative) Urine Nitrite (Negative) Urine Bilirubin (Negative) Urine Urobilinogen (<2.0) mg/dL Ur Leukocyte Esterase (Negative) Urine RBC (0-5) /hpf Urine WBC (0-5) /hpf Ur Squamous Epith Cells (0-4) /hpf Urine Mucus (None) /hpf Urine Yeast (Budding) (None) /hpf 07/28/23 07/28/23 07/28/23 Range/Units 05:48 05:48 06:12 WBC 10.22 H (3.8-10.6) k/uL RBC 3.18 L (4.30-5.90) m/uL Hgb 10.0 L (13.0-17.5) gm/dL Hct 32.5 L (39.0-53.0) % MCV 102.2 H (80.0-100.0) fL MCH 31.4 (25.0-35.0) pg MCHC 30.8 L (31.0-37.0) g/dL RDW 20.5 H (11.5-15.5) % Plt Count 178 (150-450) k/uL MPV 10.2 Immature Gran % (Auto) 1.50 % Absolute Nucleated RBC 0.60 % Neutrophils % 77.5 % Lymphocytes % 8.7 % Monocytes % 11.9 % Eosinophils % 0.1 % Basophils % 0.3 % Immature Gran # 0.15 H (0.00-0.04) X 10*3/uL Neutrophils # 7.92 H (1.3-7.7) k/uL Lymphocytes # 0.89 L (1.0-4.8) k/uL Monocytes # 1.22 H (0-1.0) k/uL Eosinophils # 0.01 L (0-0.7) k/uL Basophils # 0.03 (0-0.2) k/uL NRBC/100 WBC Diff 0.06 H (0.00-0.01) X 10*3/uL Manual Slide Review Polychromasia Hypochromasia Poikilocytosis Anisocytosis Macrocytosis Target Cells PT (10.0-12.5) sec INR (<1.2) APTT (22.0-30.0) sec Sample Site Right Radial ABG pH 7.48 H (7.35-7.45) ABG pCO2 35 (35-45) mmHg ABG pO2 112 H (83-108) mmHg ABG HCO3 26 H (21-25) mmol/L ABG Total CO2 27 H (19-24) mmol/L ABG O2 Saturation 98.1 H (94-97) % ABG Base Excess 2.5 mmol/L Jose Test Yes FiO2 80 % Sodium 134 L (137-145) mmol/L Potassium 5.9 H (3.5-5.1) mmol/L Chloride 96 (98-107) mmol/L Carbon Dioxide 22.2 (22-30) mmol/L Anion Gap 15.80 H mmol/L BUN 29.3 H (9-20) mg/dL Creatinine 3.4 H (0.66-1.25) mg/dL Est GFR (CKD-EPI) 18 L (>=60) Est GFR (CKD-EPI)AfAm (>60 ml/min/1.73 sqM) Est GFR (CKD-EPI)NonAf (>60 ml/min/1.73 sqM) BUN/Creatinine Ratio 8.62 L (12.00-20.00) Ratio Glucose 177 H (74-99) mg/dL POC Glucose (mg/dL) (70-110) mg/dL POC Glu [employer] ID Lactic Ac Sepsis Rflx Plasma Lactic Acid Jarvis (0.7-2.0) mmol/L Calcium 9.0 (8.4-10.2) mg/dL Phosphorus 4.9 (2.5-4.5) mg/dL Magnesium 2.1 (1.6-2.3) mg/dL Total Bilirubin 0.5 (0.2-1.3) mg/dL AST 34 (17-59) U/L ALT 32 (4-49) U/L Alkaline Phosphatase 155 H (38-126) U/L Troponin I (0.000-0.034) ng/mL Total Protein 6.4 (6.3-8.2) g/dL Albumin 3.4 L (3.5-5.0) g/dL Globulin 3.0 g/dL Albumin/Globulin Ratio 1.13 L TSH (0.465-4.680) mIU/L Urine Color Urine Appearance (Clear) Urine pH (5.0-8.0) Ur Specific [place] (1.001-1.035) Urine Protein (Negative) Urine Glucose (UA) (Negative) Urine Ketones (Negative) Urine Blood (Negative) Urine Nitrite (Negative) Urine Bilirubin (Negative) Urine Urobilinogen (<2.0) mg/dL Ur Leukocyte Esterase (Negative) Urine RBC (0-5) /hpf Urine WBC (0-5) /hpf Ur Squamous Epith Cells (0-4) /hpf Urine Mucus (None) /hpf Urine Yeast (Budding) (None) /hpf 07/28/23 Range/Units 07:06 WBC (3.8-10.6) k/uL RBC (4.30-5.90) m/uL Hgb (13.0-17.5) gm/dL Hct (39.0-53.0) % MCV (80.0-100.0) fL MCH (25.0-35.0) pg MCHC (31.0-37.0) g/dL RDW (11.5-15.5) % Plt Count (150-450) k/uL MPV Immature Gran % (Auto) % Absolute Nucleated RBC % Neutrophils % % Lymphocytes % % Monocytes % % Eosinophils % % Basophils % % Immature Gran # (0.00-0.04) X 10*3/uL Neutrophils # (1.3-7.7) k/uL Lymphocytes # (1.0-4.8) k/uL Monocytes # (0-1.0) k/uL Eosinophils # (0-0.7) k/uL Basophils # (0-0.2) k/uL NRBC/100 WBC Diff (0.00-0.01) X 10*3/uL Manual Slide Review Polychromasia Hypochromasia Poikilocytosis Anisocytosis Macrocytosis Target Cells PT (10.0-12.5) sec INR (<1.2) APTT (22.0-30.0) sec Sample Site ABG pH (7.35-7.45) ABG pCO2 (35-45) mmHg ABG pO2 (83-108) mmHg ABG HCO3 (21-25) mmol/L ABG Total CO2 (19-24) mmol/L ABG O2 Saturation (94-97) % ABG Base Excess mmol/L Jose Test FiO2 % Sodium (137-145) mmol/L Potassium (3.5-5.1) mmol/L Chloride (98-107) mmol/L Carbon Dioxide (22-30) mmol/L Anion Gap mmol/L BUN (9-20) mg/dL Creatinine (0.66-1.25) mg/dL Est GFR (CKD-EPI) (>=60) Est GFR (CKD-EPI)AfAm (>60 ml/min/1.73 sqM) Est GFR (CKD-EPI)NonAf (>60 ml/min/1.73 sqM) BUN/Creatinine Ratio (12.00-20.00) Ratio Glucose (74-99) mg/dL POC Glucose (mg/dL) 184 H (70-110) mg/dL POC Glu [employer] ID Tami Tristan Lactic Ac Sepsis Rflx Plasma Lactic Acid Jarvis (0.7-2.0) mmol/L Calcium (8.4-10.2) mg/dL Phosphorus (2.5-4.5) mg/dL Magnesium (1.6-2.3) mg/dL Total Bilirubin (0.2-1.3) mg/dL AST (17-59) U/L ALT (4-49) U/L Alkaline Phosphatase (38-126) U/L Troponin I (0.000-0.034) ng/mL Total Protein (6.3-8.2) g/dL Albumin (3.5-5.0) g/dL Globulin g/dL Albumin/Globulin Ratio TSH (0.465-4.680) mIU/L Urine Color Urine Appearance (Clear) Urine pH (5.0-8.0) Ur Specific [place] (1.001-1.035) Urine Protein (Negative) Urine Glucose (UA) (Negative) Urine Ketones (Negative) Urine Blood (Negative) Urine Nitrite (Negative) Urine Bilirubin (Negative) Urine Urobilinogen (<2.0) mg/dL Ur Leukocyte Esterase (Negative) Urine RBC (0-5) /hpf Urine WBC (0-5) /hpf Ur Squamous Epith Cells (0-4) /hpf Urine Mucus (None) /hpf Urine Yeast (Budding) (None) /hpf - EKG Data -: EKG Interpreted by [facility] - Radiology Data Radiology results: report reviewed (Chest and pelvis x-ray are negative for acute disease), image reviewed Disposition Clinical Impression: Fall, Weakness, Debility, Failure to thrive, Acute renal failure, CKD (chronic kidney disease) Disposition: ADMITTED IP TO THIS HOSP Is patient prescribed a controlled substance at d/c from ED?: No Time of Disposition: 06:30
[2023-07-27] MEDS ORDERED: ACETAMINOPHEN TAB 500 MG TAB PO STA (01:56)
[2023-07-27] MEDS ORDERED: MORPHINE SULFATE 4 MG/ML SYRINGE IV PRN (01:56)
[2023-07-27] MEDS ORDERED: SODIUM CHLORIDE 0.9% 1,000 ML IV STA (01:56)
[2023-07-27] MEDS ORDERED: MORPHINE SULFATE 4 MG/ML SYRINGE IVP STA (01:56)
[2023-07-27] MEDS ORDERED: IPRATROPIUM-ALBUTEROL 3 ML NEB INHALATION STA (02:24)
[2023-07-27 02:28] LABS: Anisocytosis Moderate; Basophils % (A) 0 %; Eosinophils # (A) 0.1 k/uL (0-0.7); Eosinophils % (A) 1 %; HCT 35.9 % (39.0-53.0); HGB 10.8 gm/dL (13.0-17.5); Hypochromasia Marked; Lymphocytes # (A) 0.8 k/uL (1.0-4.8); Lymphocytes % (A) 9 %; MCH 32.3 pg (25.0-35.0); MCHC 30.1 g/dL (31.0-37.0); Macrocytosis Marked; Mean Platelet Volume 8.6; Monocytes # (A) 0.5 k/uL (0-1.0); Monocytes % (A) 5 %; Neutrophils # (A) 7.7 k/uL (1.3-7.7); Neutrophils % (A) 84 %; Platelet Count 183 k/uL (150-450); Poikilocytosis Slight; RBC 3.34 m/uL (4.30-5.90); RDW 20.4 % (11.5-15.5); WBC 9.2 k/uL (3.8-10.6)
[2023-07-27 02:44] LABS: INR 1.1 (<1.2); Partial Thromboplastin Time 28.3 sec (22.0-30.0); Prothrombin Time 12.2 sec (10.0-12.5)
[2023-07-27 02:45] LABS: ALT 28 U/L (4-49); AST 43 U/L (17-59); African American GFR (CKD) 14 (>60 ml/min/1.73 sqM); Alkaline Phosphatase 181 U/L (38-126); Anion Gap 20 mmol/L; Blood Urea Nitrogen 45 mg/dL (9-20); Calcium 9.1 mg/dL (8.4-10.2); Carbon Dioxide 16 mmol/L (22-30); Chloride 96 mmol/L (98-107); Glucose 176 mg/dL (74-99); Magnesium 2.2 mg/dL (1.6-2.3); Non-African American GFR(CKD) 12 (>60 ml/min/1.73 sqM); Phosphorus 5.8 mg/dL (2.5-4.5); Sodium 132 mmol/L (137-145); Total Bilirubin 0.7 mg/dL (0.2-1.3); Total Protein 7.6 g/dL (6.3-8.2)
[2023-07-27 03:02] LABS: MCV 107.3 fL (80.0-100.0)
[2023-07-27 04:29] LABS: Polychromasia Present; Target Cells Present
[2023-07-27] MEDS ORDERED: NALOXONE 0.4 MG/ML 1 ML VIAL IV PRN (06:26)
[2023-07-27] MEDS ORDERED: ONDANSETRON 4 MG/2 ML VIAL IVP PRN (06:26)
[2023-07-27 07:20] LABS: Appearance,Urine Cloudy (Clear); Bilirubin,Urine 1+ (Negative); Blood,Urine Large (Negative); Budding Yeast,Urine Occasional /hpf; Color,Urine Yellow; Glucose,Urine (UA) Negative (Negative); Ketones,Urine Negative (Negative); Leukocyte Esterase,Urine Large (Negative); Mucus,Urine Rare /hpf; Nitrite,Urine Negative (Negative); Protein,Urine Trace (Negative); RBC,Urine >182 /hpf (0-5); Specific Gravity,Urine 1.022 (1.001-1.035); Squamous Epithelial Cell,Urine 14 /hpf (0-4); WBC,Urine 36 /hpf (0-5)
[2023-07-27 07:28] LABS: Glucose,Whole Blood 56 mg/dL (70-110)
--- NOTE | 2023-07-27 08:20 | XR ---
Laverne Lubin EXAMINATION TYPE: XR pelvis AP view DATE OF EXAM: 07/27/2023 CLINICAL HISTORY: Fall TECHNIQUE: A single AP view of the pelvis is obtained. COMPARISON: CT abdomen and pelvis June 04, 2023. FINDINGS: Evaluation is suboptimal due to portable technique and patient's large body habitus. There is no acute displaced fracture evident in the pelvis. Degenerative changes of bilateral hip and sacr oiliac joints is redemonstrated. Pubic symphysis is intact. Overlying soft tissue is unremarkable. IMPRESSION: There is no acute displaced fracture in the pelvis.
--- NOTE | 2023-07-27 08:20 | XR ---
Tristian Galloway EXAMINATION TYPE: XR chest 1V DATE OF EXAM: 07/27/2023 CLINICAL HISTORY: Fall. TECHNIQUE: Single AP portable upright view of the chest is obtained. COMPARISON: Chest x-ray from July 07, 2023 FINDINGS: Persistent cardiomegaly with dual lead pacemaker and atherosclerotic thoracic aorta. Redem onstration of large bore right internal jugular dialysis catheter. Lungs remain predominantly clear. No pneumothorax seen bilaterally. Osseous structures are intact. IMPRESSION: Cardiomegaly without acute pulmonary process.
[2023-07-27] MEDS: SODIUM CHLORIDE 0.9% 1,000 ML IV SCH ×2 (10:39→16:49)
[2023-07-27 10:45] LABS: Glucose,Whole Blood 116 mg/dL (70-110)
--- NOTE | 2023-07-27 11:42 | P.NPCON ---
History of Present Illness - Reason for Consult end stage renal disease - History of Present Illness Reason for consultation: End-stage renal disease History of present illness: Patient is a 78-year-old male seen in renal consultation for end-stage renal disease. Patient was seen and examined in the ER. He is maintained on hemodialysis on Sunday schedule via permacath. Patient came to the hospital after he sustained a fall. Patient states he went to the bathroom in his legs gave out and he fell. He is unsure if he hit his head or not. Patient has long-standing history of diabetes. He also has history of diastolic CHF and moderate to severe tricuspid regurgitation and pulmonary hypertension. He denies missing any dialysis treatments. Blood pressure is well controlled. He is on room air. Denies fever or chills. No vomiting or diarrhea. He did receive a liter fluid bolus on admission. He's currently receiving maintenance fluids with normal saline at 1 30 mL an hour. Chest x-ray showed no acute process. No fracture noted on imaging. Vital signs are stable. General: No acute distress. HEENT: Head exam is unremarkable. LUNGS: No audible rhonchi or wheezes. HEART: Rate and Rhythm are regular. ABDOMEN: Obese, nontender. EXTREMITITES: Chronic changes noted. No edema. Past Medical History Past Medical History: Atrial Fibrillation, COPD, Diabetes Mellitus, Dialysis, GERD/Reflux, Hyperlipidemia, Hypertension, Osteoarthritis (OA), Renal Disease, Sleep Apnea/CPAP/BIPAP, Thyroid Disorder Additional Past Medical History / Comment(s): O2 3L per nasal cannula. Dialysis MOWEFR. Cardiomyopathy. Gout. Constipation. 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 hemodialysis cath, peritoneal dialysis Past Anesthesia/Blood Transfusion Reactions: No Reported Reaction Type of Cardiac Device: Permanent Pacemaker Device Placement Date:: 10/17/2012 Past Psychological History: No Psychological Hx Reported Smoking Status: Former smoker Past Alcohol Use History: None Reported Past Drug Use History: None Reported - Past Family History Father History Unknown: Yes Additional Family Medical History / Comment(s): "hardening of the arteries" Mother History Unknown: Yes Additional Family Medical History / Comment(s): "water in the lungs" at 95. Medications and Allergies Home Medications Medication Instructions Recorded Confirmed Type allopurinoL [Zyloprim] 300 mg PO DAILY 11/21/14 07/27/23 History Acetaminophen Tab [Tylenol] 650 mg PO BID 07/12/16 07/27/23 History Multivitamins, Thera [Multivitamin 1 tab PO DAILY 10/03/17 07/27/23 History (formulary)] Lovastatin [Altoprev] 40 mg PO HS 05/24/21 07/27/23 History Omeprazole 40 mg PO DAILY 03/29/22 07/27/23 History Midodrine HCl [ProAmatine] 10 mg PO QID PRN 02/14/23 07/27/23 History glipiZIDE [Glucotrol] 10 mg PO DAILY@1400 02/14/23 07/27/23 History Sucralfate [Carafate] 1 gm PO BID 02/15/23 07/27/23 History Docusate [Colace] 100 mg PO BID 05/10/23 07/27/23 History Fludrocortisone [Florinef] 0.1 mg PO DAILY 05/10/23 07/27/23 History Ferrous Sulfate [Feosol] 325 mg PO DAILY 30 Days #60 tab 05/12/23 07/27/23 Rx Amiodarone [Cordarone] 200 mg PO DAILY 30 Days #30 tab 06/18/23 07/27/23 Rx L.acidoph,Paracasei, B.lactis 1 cap PO DAILY 07/07/23 07/27/23 History [Probiotic] Torsemide [Demadex] 80 mg PO DAILY 07/07/23 07/27/23 History glipiZIDE [Glucotrol] 20 mg PO DAILY@0800 07/07/23 07/27/23 History Apixaban [Eliquis] 5 mg PO BID #60 tab 07/12/23 07/27/23 Rx Darbepoetin Chirag [Aranesp] 60 mcg SQ Q7D 30 Days #4 each 07/12/23 07/27/23 Rx Nystatin 100,000 Unit/gm Powd 1 applic TOPICAL BID 30 Days #2 07/12/23 07/27/23 Rx [Mycostatin Powder] each Allergies Allergy/AdvReac Type Severity Reaction Status Date / Time lisinopril AdvReac Mild Cough Verified 07/27/23 08:23 Physical Exam Vitals: Vital Signs Temp Pulse Resp BP Pulse Ox 07/27/23 08:51 60 18 137/63 97 07/27/23 06:05 68 07/27/23 06:04 62 20 124/75 95 07/27/23 05:52 60 07/27/23 05:00 63 18 119/69 97 07/27/23 04:00 65 18 124/77 97 07/27/23 03:00 61 18 120/72 97 07/27/23 00:02 98.0 F 63 20 98/47 92 L Intake and Output 07/26/23 07/27/23 07/27/23 22:59 06:59 14:59 Other: Weight 116.891 kg Results - Lab Results Most recent lab results Calcium 9.1 mg/dL (8.4-10.2) 07/27/23 02:00 Phosphorus 5.8 mg/dL (2.5-4.5) H 07/27/23 02:00 Magnesium 2.2 mg/dL (1.6-2.3) 07/27/23 02:00 07/27/23 02:00 07/27/23 02:00 Assessment and Plan Plan: Assessment: 1. End-stage renal disease maintained on hemodialysis on Sunday schedule via permacath. 2. Status post fall. No fractures noted. 3. Diabetes mellitus. 4. Metabolic acidosis secondary to chronic kidney disease. Expect improvement postdialysis. 5. Chronic diastolic CHF with moderate to severe tricuspid regurgitation and pulmonary hypertension. Plan: Decreased rate of normal saline to 50 mL an hour. Hemodialysis today. Check phosphorus level. Repeat labs in the morning. Thank you for the consultation. I will continue to follow the patient with you during his hospital stay.
[2023-07-27 12:59] LABS: Glucose,Whole Blood 122 mg/dL (70-110)
[2023-07-27] MEDS ORDERED: MIDODRINE 5 MG TAB PO PRN (14:14)
[2023-07-27] MEDS ORDERED: DARBEPOETIN ALFA 60 MCG/0.3 ML SYRINGE SQ SCH (14:15)
[2023-07-27 17:24] LABS: Glucose,Whole Blood 173 mg/dL (70-110)
[2023-07-27] MEDS: INSULIN ASPART (NovoLOG) 100 UNIT/ML VIAL SQ SCH ×2 (18:01→20:52)
[2023-07-27 20:46] LABS: Glucose,Whole Blood 173 mg/dL (70-110)
[2023-07-27] MEDS: APIXABAN 5 MG TAB PO SCH (20:52)
[2023-07-27] MEDS: ACETAMINOPHEN TAB 325 MG TAB PO SCH (20:52)
[2023-07-27] MEDS: SUCRALFATE 1 GM TAB PO SCH (20:52)
[2023-07-27] MEDS: ATORVASTATIN 10 MG TAB PO SCH (20:53)
[2023-07-27] MEDS: DOCUSATE 100 MG CAP PO SCH (20:53)
[2023-07-28] MEDS: SODIUM CHLORIDE 0.9% 1,000 ML IV SCH ×3 (00:21→18:23)
[2023-07-28] MEDS ORDERED: EPINEPHrine 10 ML SYRINGE (0.1 MG/ML) ONE (00:33)
[2023-07-28] MEDS ORDERED: SODIUM BICARB 8.4% 50 ML SYR (1 MEQ/ML) ONE (00:33)
[2023-07-28 00:40] LABS: Glucose,Whole Blood 202 mg/dL (70-110)
--- NOTE | 2023-07-28 00:52 | P.PN ---
Progress Note - Text Progress Note Date: 07/28/23 Code jaguar was called around 12:30 am, chest compressions started. Patient was given 3 epis and 1 amp of bicarb, spontaneous circulation was restored after about 13-14 minutes of CPR. He was intubated during the code and will be transferred to ICU.
[2023-07-28 00:57] LABS: Glucose,Whole Blood 211 mg/dL (70-110)
[2023-07-28 01:12] LABS: ABG Base Excess -7.1 mmol/L; ABG HCO3 21 mmol/L (21-25); ABG Oxygen Saturation 89.7 % (94-97); ABG PCO2 49 mmHg (35-45); ABG PH 7.23 (7.35-7.45); ABG PO2 74 mmHg (83-108); ABG TCO2 22 mmol/L (19-24); Allen Test Performed? Yes
--- NOTE | 2023-07-28 01:32 | XR ---
EXAM: XR Chest, 1 View CLINICAL HISTORY: ITS.REASON XR Reason: tube placement TECHNIQUE: Frontal view of the chest. COMPARISON: 07/27/2023 FINDINGS: Lungs: Focal consolidations in the right lung apex and left lung base. Vascular congestion. Pleural space: Unremarkable. No pneumothorax. No pleural effusions. Heart: Moderate enlargement of cardiac silhouette unchanged. Mediastinum: Unremarkable. Normal mediastinal contour. Bones/joints: No acute osseous abnormalities. Tubes, lines and devices: Interval placement of endotracheal tube with tip 3.5 cm above the dash. Interval placement of nasogastric tube in position with tip coursing off the film. Right IJ tunneled hemodialysis catheter in position. Left subclavian dual lead transvenous pacemaker in position. IMPRESSION: 1. Focal consolidations in the right lung apex and left lung base. 2. Interval placement of endotracheal tube with tip 3.5 cm above the dash. 3. Interval placement of nasogastric tube in position with tip coursing off the film. 4. Moderate enlargement of cardiac silhouette unchanged.
[2023-07-28 01:56] LABS: Anisocytosis Moderate; Basophils # (A) 0.1 k/uL (0-0.2); Basophils % (A) 1 %; Eosinophils # (A) 0.1 k/uL (0-0.7); Eosinophils % (A) 1 %; HCT 34.7 % (39.0-53.0); HGB 10.1 gm/dL (13.0-17.5); Hypochromasia Marked; Lymphocytes # (A) 4.5 k/uL (1.0-4.8); Lymphocytes % (A) 39 %; MCHC 29.1 g/dL (31.0-37.0); Macrocytosis Marked; Mean Platelet Volume 8.3; Monocytes # (A) 0.9 k/uL (0-1.0); Monocytes % (A) 7 %; Neutrophils # (A) 5.7 k/uL (1.3-7.7); Neutrophils % (A) 50 %; Platelet Count 180 k/uL (150-450); RBC 3.16 m/uL (4.30-5.90); RDW 20.8 % (11.5-15.5); WBC 11.6 k/uL (3.8-10.6)
[2023-07-28] MEDS: NOREPINEPHRINE 4 MG in SODIUM CHLORIDE 0.9% 250 ML IV SCH ×4 (02:00→21:19)
[2023-07-28 02:01] LABS: MCV 109.9 fL (80.0-100.0)
[2023-07-28 02:19] LABS: ALT 32 U/L (4-49); AST 40 U/L (17-59); African American GFR (CKD) 21 (>60 ml/min/1.73 sqM); Albumin 3.4 g/dL (3.5-5.0); Albumin/Globulin Ratio 1.1; Alkaline Phosphatase 182 U/L (38-126); Anion Gap 18 mmol/L; Blood Urea Nitrogen 29 mg/dL (9-20); Calcium 8.1 mg/dL (8.4-10.2); Carbon Dioxide 20 mmol/L (22-30); Chloride 95 mmol/L (98-107); Globulin 3.2 g/dL; Glucose 202 mg/dL (74-99); Non-African American GFR(CKD) 18 (>60 ml/min/1.73 sqM); Potassium 5.9 mmol/L (3.5-5.1); Sodium 133 mmol/L (137-145); Total Bilirubin 0.6 mg/dL (0.2-1.3); Total Protein 6.6 g/dL (6.3-8.2)
[2023-07-28] MEDS ORDERED: NALOXONE 0.4 MG/ML 1 ML VIAL IV PRN (02:24)
[2023-07-28] MEDS ORDERED: SODIUM BICARB 8.4% 50 ML SYR (1 MEQ/ML) IV STA ×2 (02:40→02:41)
[2023-07-28] MEDS ORDERED: CALCIUM GLUCONATE IN NACL 1 GM in SALINE 1 100ML.BAG IVPB ONE (03:30)
[2023-07-28 06:16] LABS: ABG Base Excess 2.5 mmol/L; ABG HCO3 26 mmol/L (21-25); ABG Oxygen Saturation 98.1 % (94-97); ABG PCO2 35 mmHg (35-45); ABG PH 7.48 (7.35-7.45); ABG PO2 112 mmHg (83-108); ABG TCO2 27 mmol/L (19-24); Allen Test Performed? Yes
[2023-07-28 07:07] LABS: Glucose,Whole Blood 184 mg/dL (70-110)
[2023-07-28] MEDS: INSULIN ASPART (NovoLOG) 100 UNIT/ML VIAL SQ SCH ×3 (07:08→18:06)
[2023-07-28] MEDS: FERROUS SULFATE 325 MG TAB PO SCH ×2 (08:10→11:30)
[2023-07-28] MEDS ORDERED: TORSEMIDE 20 MG TAB PO SCH (09:00)
[2023-07-28 09:19] LABS: HCT 32.5 % (39.6-50.0); MCH 31.4 pg (27.0-32.0); MCHC 30.8 g/dL (32.0-37.0); MCV 102.2 FL (80.0-97.0); Mean Platelet Volume 10.2 FL (9.5-12.2); NRBC Per 100 WBC 0.06 X 10*3/uL (0.00-0.01); Platelet Count 178 X 10*3/uL (140-440); RBC 3.18 X 10*6/uL (4.40-5.60); RDW 20.5 % (11.5-14.5); WBC 10.22 X 10*3/uL (4.50-10.00)
[2023-07-28 09:20] LABS: Basophils # (A) 0.03 X 10*3/uL (0.00-0.10); Basophils % (A) 0.3 %; Eosinophils # (A) 0.01 X 10*3/uL (0.04-0.35); Eosinophils % (A) 0.1 %; Lymphocytes # (A) 0.89 X 10*3/uL (0.90-5.00); Lymphocytes % (A) 8.7 %; Monocytes # (A) 1.22 X 10*3/uL (0.20-1.00); Monocytes % (A) 11.9 %; Neutrophils # (A) 7.92 X 10*3/uL (1.80-7.70); Neutrophils % (A) 77.5 %
[2023-07-28 09:42] LABS: ALT 32 U/L (10-49); AST 34 U/L (14-35); Albumin 3.4 g/dL (3.8-4.9); Albumin/Globulin Ratio 1.13 Ratio (1.60-3.17); Alkaline Phosphatase 155 U/L (41-126); BUN/Creat Ratio 8.62 Ratio (12.00-20.00); Blood Urea Nitrogen 29.3 mg/dL (9.0-27.0); Carbon Dioxide 22.2 mmol/L (21.6-31.8); Chloride 96 mmol/L (96-109); Glucose 177 mg/dL (70-110); Magnesium 2.1 mg/dL (1.5-2.4); Phosphorus 4.9 mg/dL (2.4-5.1); Potassium 5.9 mmol/L (3.5-5.5); Sodium 134 mmol/L (135-145); Total Bilirubin 0.5 mg/dL (0.3-1.2); Total Protein 6.4 g/dL (6.2-8.2)
[2023-07-28] MEDS: HYDROmorphone 1 MG/ML 1 ML SYRINGE IVP PRN (10:32)
[2023-07-28] MEDS ORDERED: SODIUM ZIRCONIUM CYCLOSILICATE 10 GM PACKET PO ONE ×2 (10:47→17:50)
[2023-07-28] MEDS ORDERED: INSULIN REGULAR 100 UNIT/ML VIAL (IV) IV ONE (10:47)
[2023-07-28] MEDS ORDERED: DEXTROSE 50% SYRINGE 50 ML IVP STA (10:47)
--- NOTE | 2023-07-28 11:20 | P.PN ---
Subjective Patient is seen in follow-up for end-stage renal disease. He is maintained on hemodialysis on Sunday schedule. Completed hemodialysis yesterday with 500 mL ultrafiltration. Patient had PEA arrest last night. Patient was down for about 13 minutes and received 3 rounds of epinephrine 1 amp of bicarbonate. He is currently intubated. He is on Levophed. Per nurse, he was on the BiPAP and was found to be unresponsive concerning for respiratory arrest. Vital signs are stable. On Levophed. General: Resting in bed. HEENT: Intubated. LUNGS: Scattered rhonchi. HEART: Rate and Rhythm are regular. ABDOMEN: Obese. EXTREMITITES: No edema. Chronic changes noted. Objective - Vital Signs Vital signs: Vital Signs Temp 97.3 F L 07/27/23 19:12 Pulse 60 07/28/23 07:30 Resp 18 07/28/23 07:30 BP 97/60 07/28/23 07:30 Pulse Ox 100 07/28/23 07:30 FiO2 50 07/28/23 11:10 Intake & Output 07/27/23 07/28/23 07/28/23 18:59 06:59 18:59 Intake Total 718.929 304.577 Balance 718.929 304.577 Weight 116.891 kg 122.8 kg 122.8 kg Intake: IV 620 130 Calcium Gluconate in NaCl 100 1 gm In Saline 1 100ml. bag @ 100 mls/hr IVPB ONCE ONE Rx#:[id number] Sodium Chloride 0.9% 1, 520 130 000 ml @ 130 mls/hr IV . Q7H42M SERGEY Rx#:[id number] Intake, IV Titration 98.929 174.577 Amount Norepinephrine 4 mg In 33.996 174.577 Sodium Chloride 0.9% 250 ml @ 0.03 MCG/KG/MIN 13. 361 mls/hr IV .Q19H1M SERGEY Rx#:[id number] propofoL 1,000 mg In 64.933 Empty Bag 1 bag @ 15 MCG/ KG/MIN 10.52 mls/hr IV . Q9H31M SERGEY Rx#:[id number] Other: Voiding Method Diaper # Voids 0 0 - Labs CBC & Chem 7: 07/28/23 05:48 07/28/23 05:48 Labs: Abnormal Lab Results - Last 24 Hours (Table) 07/27/23 07/27/23 07/27/23 Range/Units 12:58 17:22 20:44 WBC (3.8-10.6) k/uL RBC (4.30-5.90) m/uL Hgb (13.0-17.5) gm/dL Hct (39.0-53.0) % MCV (80.0-100.0) fL MCHC (31.0-37.0) g/dL RDW (11.5-15.5) % Immature Gran # (0.00-0.04) X 10*3/uL Neutrophils # (1.80-7.70) X 10*3/uL Lymphocytes # (0.90-5.00) X 10*3/uL Monocytes # (0.20-1.00) X 10*3/uL Eosinophils # (0.04-0.35) X 10*3/uL NRBC/100 WBC Diff (0.00-0.01) X 10*3/uL Macrocytosis ABG pH (7.35-7.45) ABG pCO2 (35-45) mmHg ABG pO2 (83-108) mmHg ABG HCO3 (21-25) mmol/L ABG Total CO2 (19-24) mmol/L ABG O2 Saturation (94-97) % Sodium (137-145) mmol/L Potassium (3.5-5.1) mmol/L Chloride (98-107) mmol/L Carbon Dioxide (22-30) mmol/L Anion Gap (4.00-12.00) mmol/L BUN (9-20) mg/dL Creatinine (0.66-1.25) mg/dL Est GFR (CKD-EPI) (>=60) BUN/Creatinine Ratio (12.00-20.00) Ratio Glucose (74-99) mg/dL POC Glucose (mg/dL) 122 H 173 H 173 H (70-110) mg/dL Calcium (8.4-10.2) mg/dL Alkaline Phosphatase (38-126) U/L Troponin I (0.000-0.034) ng/mL Albumin (3.5-5.0) g/dL Albumin/Globulin Ratio (1.60-3.17) Ratio 01/01/1307/28/23 07/28/23 Range/Units 00:38 00:55 01:09 WBC (3.8-10.6) k/uL RBC (4.30-5.90) m/uL Hgb (13.0-17.5) gm/dL Hct (39.0-53.0) % MCV (80.0-100.0) fL MCHC (31.0-37.0) g/dL RDW (11.5-15.5) % Immature Gran # (0.00-0.04) X 10*3/uL Neutrophils # (1.80-7.70) X 10*3/uL Lymphocytes # (0.90-5.00) X 10*3/uL Monocytes # (0.20-1.00) X 10*3/uL Eosinophils # (0.04-0.35) X 10*3/uL NRBC/100 WBC Diff (0.00-0.01) X 10*3/uL Macrocytosis ABG pH 7.23 L (7.35-7.45) ABG pCO2 49 H (35-45) mmHg ABG pO2 74 L (83-108) mmHg ABG HCO3 (21-25) mmol/L ABG Total CO2 (19-24) mmol/L ABG O2 Saturation 89.7 L (94-97) % Sodium (137-145) mmol/L Potassium (3.5-5.1) mmol/L Chloride (98-107) mmol/L Carbon Dioxide (22-30) mmol/L Anion Gap (4.00-12.00) mmol/L BUN (9-20) mg/dL Creatinine (0.66-1.25) mg/dL Est GFR (CKD-EPI) (>=60) BUN/Creatinine Ratio (12.00-20.00) Ratio Glucose (74-99) mg/dL POC Glucose (mg/dL) 202 H 211 H (70-110) mg/dL Calcium (8.4-10.2) mg/dL Alkaline Phosphatase (38-126) U/L Troponin I (0.000-0.034) ng/mL Albumin (3.5-5.0) g/dL Albumin/Globulin Ratio (1.60-3.17) Ratio 07/28/23 07/28/23 07/28/23 Range/Units 01:20 01:20 05:48 WBC 11.6 H (3.8-10.6) k/uL RBC 3.16 L (4.30-5.90) m/uL Hgb 10.1 L (13.0-17.5) gm/dL Hct 34.7 L (39.0-53.0) % MCV 109.9 H (80.0-100.0) fL MCHC 29.1 L (31.0-37.0) g/dL RDW 20.8 H (11.5-15.5) % Immature Gran # (0.00-0.04) X 10*3/uL Neutrophils # (1.80-7.70) X 10*3/uL Lymphocytes # (0.90-5.00) X 10*3/uL Monocytes # (0.20-1.00) X 10*3/uL Eosinophils # (0.04-0.35) X 10*3/uL NRBC/100 WBC Diff (0.00-0.01) X 10*3/uL Macrocytosis Marked A ABG pH (7.35-7.45) ABG pCO2 (35-45) mmHg ABG pO2 (83-108) mmHg ABG HCO3 (21-25) mmol/L ABG Total CO2 (19-24) mmol/L ABG O2 Saturation (94-97) % Sodium 133 L 134 L (137-145) mmol/L Potassium 5.9 H 5.9 H (3.5-5.1) mmol/L Chloride 95 L (98-107) mmol/L Carbon Dioxide 20 L (22-30) mmol/L Anion Gap 15.80 H (4.00-12.00) mmol/L BUN 29 H 29.3 H (9-20) mg/dL Creatinine 3.10 H 3.4 H (0.66-1.25) mg/dL Est GFR (CKD-EPI) 18 L (>=60) BUN/Creatinine Ratio 8.62 L (12.00-20.00) Ratio Glucose 202 H 177 H (74-99) mg/dL POC Glucose (mg/dL) (70-110) mg/dL Calcium 8.1 L (8.4-10.2) mg/dL Alkaline Phosphatase 182 H 155 H (38-126) U/L Troponin I (0.000-0.034) ng/mL Albumin 3.4 L 3.4 L (3.5-5.0) g/dL Albumin/Globulin Ratio 1.13 L (1.60-3.17) Ratio 07/28/23 07/28/23 07/28/23 Range/Units 05:48 06:12 07:06 WBC 10.22 H (3.8-10.6) k/uL RBC 3.18 L (4.30-5.90) m/uL Hgb 10.0 L (13.0-17.5) gm/dL Hct 32.5 L (39.0-53.0) % MCV 102.2 H (80.0-100.0) fL MCHC 30.8 L (31.0-37.0) g/dL RDW 20.5 H (11.5-15.5) % Immature Gran # 0.15 H (0.00-0.04) X 10*3/uL Neutrophils # 7.92 H (1.80-7.70) X 10*3/uL Lymphocytes # 0.89 L (0.90-5.00) X 10*3/uL Monocytes # 1.22 H (0.20-1.00) X 10*3/uL Eosinophils # 0.01 L (0.04-0.35) X 10*3/uL NRBC/100 WBC Diff 0.06 H (0.00-0.01) X 10*3/uL Macrocytosis ABG pH 7.48 H (7.35-7.45) ABG pCO2 (35-45) mmHg ABG pO2 112 H (83-108) mmHg ABG HCO3 26 H (21-25) mmol/L ABG Total CO2 27 H (19-24) mmol/L ABG O2 Saturation 98.1 H (94-97) % Sodium (137-145) mmol/L Potassium (3.5-5.1) mmol/L Chloride (98-107) mmol/L Carbon Dioxide (22-30) mmol/L Anion Gap (4.00-12.00) mmol/L BUN (9-20) mg/dL Creatinine (0.66-1.25) mg/dL Est GFR (CKD-EPI) (>=60) BUN/Creatinine Ratio (12.00-20.00) Ratio Glucose (74-99) mg/dL POC Glucose (mg/dL) 184 H (70-110) mg/dL Calcium (8.4-10.2) mg/dL Alkaline Phosphatase (38-126) U/L Troponin I (0.000-0.034) ng/mL Albumin (3.5-5.0) g/dL Albumin/Globulin Ratio (1.60-3.17) Ratio 07/28/23 Range/Units 07:54 WBC (3.8-10.6) k/uL RBC (4.30-5.90) m/uL Hgb (13.0-17.5) gm/dL Hct (39.0-53.0) % MCV (80.0-100.0) fL MCHC (31.0-37.0) g/dL RDW (11.5-15.5) % Immature Gran # (0.00-0.04) X 10*3/uL Neutrophils # (1.80-7.70) X 10*3/uL Lymphocytes # (0.90-5.00) X 10*3/uL Monocytes # (0.20-1.00) X 10*3/uL Eosinophils # (0.04-0.35) X 10*3/uL NRBC/100 WBC Diff (0.00-0.01) X 10*3/uL Macrocytosis ABG pH (7.35-7.45) ABG pCO2 (35-45) mmHg ABG pO2 (83-108) mmHg ABG HCO3 (21-25) mmol/L ABG Total CO2 (19-24) mmol/L ABG O2 Saturation (94-97) % Sodium (137-145) mmol/L Potassium (3.5-5.1) mmol/L Chloride (98-107) mmol/L Carbon Dioxide (22-30) mmol/L Anion Gap (4.00-12.00) mmol/L BUN (9-20) mg/dL Creatinine (0.66-1.25) mg/dL Est GFR (CKD-EPI) (>=60) BUN/Creatinine Ratio (12.00-20.00) Ratio Glucose (74-99) mg/dL POC Glucose (mg/dL) (70-110) mg/dL Calcium (8.4-10.2) mg/dL Alkaline Phosphatase (38-126) U/L Troponin I 0.063 H* (0.000-0.034) ng/mL Albumin (3.5-5.0) g/dL Albumin/Globulin Ratio (1.60-3.17) Ratio Assessment and Plan Plan: Assessment: 1. End-stage renal disease maintained on hemodialysis on Sunday schedule via permacath. 2. Status post fall. No fractures noted. 3. Diabetes mellitus. 4. Metabolic acidosis secondary to chronic kidney disease. Improved. 5. Chronic diastolic CHF with moderate to severe tricuspid regurgitation and pulmonary hypertension. 6. Hyperkalemia. Patient completed hemodialysis yesterday and the 5.9 potassium is right after cardiac arrest. This morning potassium is stable at 5.9. 7. Status post PEA arrest early this morning concerning for respiratory arrest while on BiPAP. 8. Anemia of chronic kidney disease maintained on Aranesp. Plan: Decrease rate of normal saline to 50 mL an hour. Lokelma 10 g once now. 10 units of IV insulin with amp of D50 now. Repeat potassium level at 3 PM. If still elevated, will do another treatment of dialysis today. Wean Levophosphorus level 4.9 dated 07/28/2023. Repeat labs in the morning.
[2023-07-28] MEDS: CHLORHEXIDINE GLUCONATE 15 ML CUP MUCOUS MEM SCH ×2 (11:27→21:19)
[2023-07-28] MEDS: SUCRALFATE 1 GM TAB PO SCH ×2 (11:29→22:47)
[2023-07-28] MEDS: MULTIVITAMINS, THERA 1 EACH TAB PO SCH (11:29)
[2023-07-28] MEDS: APIXABAN 5 MG TAB PO SCH ×2 (11:29→21:19)
[2023-07-28] MEDS: ACETAMINOPHEN TAB 325 MG TAB PO SCH ×2 (11:30→21:19)
[2023-07-28] MEDS: DOCUSATE 100 MG CAP PO SCH ×2 (11:32→21:19)
[2023-07-28] MEDS: AMIODARONE 200 MG TAB PO SCH (11:32)
[2023-07-28] MEDS: FLUDROCORTISONE 0.1 MG TAB PO SCH (11:33)
[2023-07-28] MEDS: PANTOPRAZOLE 40 MG TABLET PO SCH (11:38)
[2023-07-28] MEDS: allopurinoL 300 MG TAB PO SCH ×2 (11:39→22:02)
[2023-07-28 12:12] LABS: Glucose,Whole Blood 227 mg/dL (70-110)
--- NOTE | 2023-07-28 13:06 | P.CNPUL ---
History of Present Illness Consult date: 07/28/23 Requesting physician: Callum Hester Reason for consult: other (Cardiac arrest) Chief complaint: Fall with weakness History of present illness: This is a 78-year-old white male with history of multiple medical problems including chronic renal failure/chronic kidney disease on hemodialysis, yesterd ay the patient was brought into the ER with mostly you days history of weakness and falling easily. Patient was admitted for further evaluation of his weakness, and he was seen only by nephrology for his chronic kidney disease and he was initiated on hemodialysis which is mostly given Wednesdays and Fridays. Patient is also known to have history of chronic diastolic congestive heart failure with moderate to severe tricuspid regurgitation and pulmonary hypertension. In addition to this the patient has obstructive sleep apnea, and he is maintained on AVAPS at home. Patient was on the medical floor, and around 12:30 AM last night, patient had a sudden cardiac arrest. And TRISHA RAYO was called. Patient received 3 A of epinephrine and 1 amp of bicarb, his down time was felt to be about 14 minutes of CPR. In the meantime the patient was intubated, and placed on mechanical ventilation. Overnight the patient remains on mechanical ventilation, and I saw this morning. He is now on assist control rate of 2010 volume 500 FiO2 was 60% and PEEP of 8. ABG showed a pO2 of 112 pCO2 35 pH of 7.48. Patient is unresponsive to any stimuli except he seems to withdraw to painful stimuli only. And he is on norepinephrine at 0.06 mg/kg/m propofol 25 mg/kg/m she is also on IV fluid at 1 50 mL per hour I cut it down to [address] of the brain is pending, neurologic consultation is pending, chest x-ray showed mostly mild interstitial edema. Patient may or may not get dialysis today, this will be decided upon by nephrology on the case. After evaluating the patient, I recommended central venous access, and an arterial line was placed and the patient. Labs today WBC count is 10.2 hemoglobin 10.0, basic metabolic profile is normal except for potassium of 5.9 BUN is 29 cr eatinine 3.4, troponin is 0.063, cardiac consultation was initiated today, neurological consultation was also initiated, and I'm recommending that we send the patient down for CT of the brain without contrast today. Education is at present include amiodarone 200 mg daily elihectoris 12 mg twice a day Lipitor, ceftriaxone, Aranesp, Dilaudid, Florinef, sliding scale insulin, midodrine, and DuoNeb updrafts 4 times a day and when necessary patient is also on Protonix, he was also placed on lokelma by nephrology for his hyperkalemia. Review of Systems ROS unobtainable: due to endotracheal tube Past Medical History Past Medical History: Atrial Fibrillation, COPD, Diabetes Mellitus, Dialysis, GERD/Reflux, Hyperlipidemia, Hypertension, Osteoarthritis (OA), Renal Disease, Sleep Apnea/CPAP/BIPAP, Thyroid Disorder Additional Past Medical History / Comment(s): O2 3L per nasal cannula. Dialysis MOWEFR. Cardiomyopathy. Gout. Constipation. 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 hemodialysis cath, peritoneal dialysis Past Anesthesia/Blood Transfusion Reactions: No Reported Reaction Type of Cardiac Device: Permanent Pacemaker Device Placement Date:: 10/17/2012 Past Psychological History: No Psychological Hx Reported Smoking Status: Former smoker Past Alcohol Use History: None Reported Past Drug Use History: None Reported - Past Family History Father History Unknown: Yes Additional Family Medical History / Comment(s): "hardening of the arteries" Mother History Unknown: Yes Additional Family Medical History / Comment(s): "water in the lungs" at 95. Medications and Allergies Home Medications Medication Instructions Recorded Confirmed Type allopurinoL [Zyloprim] 300 mg PO DAILY 11/21/14 07/27/23 History Acetaminophen Tab [Tylenol] 650 mg PO BID 07/12/16 07/27/23 History Multivitamins, Thera [Multivitamin 1 tab PO DAILY 10/03/17 07/27/23 History (formulary)] Lovastatin [Altoprev] 40 mg PO HS 05/24/21 07/27/23 History Omeprazole 40 mg PO DAILY 03/29/22 07/27/23 History Midodrine HCl [ProAmatine] 10 mg PO QID PRN 02/14/23 07/27/23 History glipiZIDE [Glucotrol] 10 mg PO DAILY@1400 02/14/23 07/27/23 History Sucralfate [Carafate] 1 gm PO BID 02/15/23 07/27/23 History Docusate [Colace] 100 mg PO BID 05/10/23 07/27/23 History Fludrocortisone [Florinef] 0.1 mg PO DAILY 05/10/23 07/27/23 History Ferrous Sulfate [Feosol] 325 mg PO DAILY 30 Days #60 tab 05/12/23 07/27/23 Rx Amiodarone [Cordarone] 200 mg PO DAILY 30 Days #30 tab 06/18/23 07/27/23 Rx L.acidoph,Paracasei, B.lactis 1 cap PO DAILY 07/07/23 07/27/23 History [Probiotic] Torsemide [Demadex] 80 mg PO DAILY 07/07/23 07/27/23 History glipiZIDE [Glucotrol] 20 mg PO DAILY@0800 07/07/23 07/27/23 History Apixaban [Eliquis] 5 mg PO BID #60 tab 07/12/23 07/27/23 Rx Darbepoetin Chirag [Aranesp] 60 mcg SQ Q7D 30 Days #4 each 07/12/23 07/27/23 Rx Nystatin 100,000 Unit/gm Powd 1 applic TOPICAL BID 30 Days #2 07/12/23 07/27/23 Rx [Mycostatin Powder] each Allergies Allergy/AdvReac Type Severity Reaction Status Date / Time lisinopril AdvReac Mild Cough Verified 07/27/23 08:23 Physical Exam Vitals: Vital Signs Temp Pulse Pulse Resp BP BP Pulse Ox 07/28/23 12:15 60 20 97 07/28/23 12:00 98.1 F 60 20 97 07/28/23 11:45 60 20 97 07/28/23 11:30 60 20 97 07/28/23 11:15 60 20 97 07/28/23 11:10 07/28/23 11:00 60 20 96 07/28/23 10:45 60 20 96 07/28/23 10:30 60 20 99/65 96 07/28/23 10:15 60 20 98/64 96 07/28/23 10:00 60 20 102/62 96 07/28/23 09:45 60 20 97/60 98 07/28/23 09:30 60 20 95/60 96 07/28/23 09:23 07/28/23 09:15 60 20 96/58 98 07/28/23 09:00 60 20 103/59 98 07/28/23 08:45 60 20 98/59 98 07/28/23 08:30 60 22 99/59 98 07/28/23 08:15 60 20 102/61 97 07/28/23 08:04 07/28/23 08:01 07/28/23 08:00 97.4 F L 60 20 91/59 100 07/28/23 07:45 60 20 122/71 100 07/28/23 07:30 60 18 97/60 100 07/28/23 07:15 60 18 100/60 99 07/28/23 07:00 60 18 100/60 99 07/28/23 06:45 60 20 98/61 99 07/28/23 06:30 60 20 99/64 99 07/28/23 06:15 60 20 102/63 98 07/28/23 06:00 60 20 101/63 97 07/28/23 05:45 60 20 101/64 98 07/28/23 05:30 60 20 90/63 98 07/28/23 05:15 60 20 101/63 97 07/28/23 05:00 60 20 98/64 97 07/28/23 04:45 60 20 98/61 96 07/28/23 04:30 60 20 95/59 99 07/28/23 04:20 60 20 95/59 98 07/28/23 04:10 60 20 95/61 98 07/28/23 04:00 60 20 87/58 98 07/28/23 03:50 60 20 87/58 98 07/28/23 03:40 60 20 85/55 98 07/28/23 03:30 60 20 86/51 98 07/28/23 03:20 62 20 86/51 98 07/28/23 03:10 60 18 95/64 98 07/28/23 03:00 60 18 90/59 98 07/28/23 02:50 60 18 90/59 98 07/28/23 02:40 60 18 89/57 98 07/28/23 02:30 60 18 84/57 97 07/28/23 02:20 60 18 84/57 97 07/28/23 02:10 61 18 83/54 99 07/28/23 02:00 60 18 77/47 97 07/28/23 01:50 60 18 76/42 96 07/28/23 01:44 07/28/23 01:40 60 18 86/57 95 07/28/23 01:30 59 L 22 92/65 94 L 07/28/23 01:20 58 L 19 92/65 95 07/28/23 01:10 60 18 100/63 95 07/28/23 01:00 61 27 H 102/61 81 L 07/28/23 00:55 73 10 L 07/27/23 19:12 97.3 F L 67 18 96/49 93 L 07/27/23 15:00 96.8 F L 60 117/64 95 FiO2 07/28/23 12:15 07/28/23 12:00 65 07/28/23 11:45 07/28/23 11:30 07/28/23 11:15 07/28/23 11:10 50 07/28/23 11:00 07/28/23 10:45 07/28/23 10:30 07/28/23 10:15 07/28/23 10:00 07/28/23 09:45 07/28/23 09:30 07/28/23 09:23 50 07/28/23 09:15 07/28/23 09:00 07/28/23 08:45 07/28/23 08:30 07/28/23 08:15 07/28/23 08:04 60 07/28/23 08:01 70 07/28/23 08:00 80 07/28/23 07:45 07/28/23 07:30 07/28/23 07:15 80 07/28/23 07:00 07/28/23 06:45 07/28/23 06:30 80 07/28/23 06:15 07/28/23 06:00 07/28/23 05:45 07/28/23 05:30 07/28/23 05:15 07/28/23 05:00 80 07/28/23 04:45 07/28/23 04:30 07/28/23 04:20 07/28/23 04:10 07/28/23 04:00 07/28/23 03:50 07/28/23 03:40 07/28/23 03:30 07/28/23 03:20 07/28/23 03:10 07/28/23 03:00 07/28/23 02:50 07/28/23 02:40 07/28/23 02:30 07/28/23 02:20 07/28/23 02:10 07/28/23 02:00 07/28/23 01:50 07/28/23 01:44 07/28/23 01:40 07/28/23 01:30 07/28/23 01:20 07/28/23 01:10 07/28/23 01:00 07/28/23 00:55 07/27/23 19:12 07/27/23 15:00 Intake and Output 07/27/23 07/28/23 07/28/23 22:59 06:59 14:59 Intake Total 718.929 735.526 Output Total 0 Balance 718.929 735.526 Intake: IV 620 480 Calcium Gluconate in NaCl 100 1 gm In Saline 1 100ml. bag @ 100 mls/hr IVPB ONCE ONE Rx#:[id number] Sodium Chloride 0.9% 1, 520 380 000 ml @ 50 mls/hr IV . Q20H SERGEY Rx#:[id number] cefTRIAXone 1 gm In 100 Sodium Chloride 0.9% 50 ml @ 100 mls/hr IVPB Q24HR SERGEY Rx#:[id number] Intake, IV Titration 98.929 255.526 Amount Norepinephrine 4 mg In 33.996 174.577 Sodium Chloride 0.9% 250 ml @ 0.03 MCG/KG/MIN 13. 361 mls/hr IV .Q19H1M SERGEY Rx#:[id number] propofoL 1,000 mg In 64.933 80.949 Empty Bag 1 bag @ 15 MCG/ KG/MIN 10.52 mls/hr IV . Q9H31M SERGEY Rx#:[id number] Output: Urine 0 Other: # Voids 0 Weight 122.8 kg 123.559 kg ABP, PAP, CO, CI - Last 8 Hours Arterial Blood Pressure 95/53 Arterial Blood Pressure 103/58 Arterial Blood Pressure 93/54 Arterial Blood Pressure 97/55 Arterial Blood Pressure 95/55 Arterial Blood Pressure 92/54 Arterial Blood Pressure 92/54 Arterial Blood Pressure 89/51 Arterial Blood Pressure 24/24 Physical Exam: Revealed a 78-year-old white male obese intubated mechanically ventilated unresponsive to stimuli in no distress. Head: Atraumatic, normocephalic. HEENT:[Neck is supple.] [No neck masses.] [No thyromegaly.] [No JVD.] Endotracheal tube and orogastric tube are intact. Patient does have a left IJ permanent dialysis catheter Chest: [Fine crackles at the bases, no rhonchi and no wheezes. Symmetrical chest expansion. Cardiac Exam: [Distant S1 and S2, no S3 gallop, 2/6 systolic murmur thought the precordium Abdomen: [Obese, Soft, nontender, no megaly, no rebound, no guarding, normal bowel sounds.] Extremities: [No clubbing, no edema, no cyanosis.] Chronic venous stasis noted bilaterally and brownish discoloration of lower extremities diminished distal pulses Neurological Exam: Unresponsive to any stimuli, patient does withdraw from painful stimuli especially when central line and arterial line were placed. Psychiatric: Could not be assessed. Skin: No rashes except chronic venous stasis changes noted lower extremities. Results - Laboratory Findings CBC and BMP: 07/28/23 05:48 07/28/23 05:48 ABG ABG pH 7.48 (7.35-7.45) H 07/28/23 06:12 ABG pCO2 35 mmHg (35-45) 07/28/23 06:12 ABG pO2 112 mmHg (83-108) H 07/28/23 06:12 ABG O2 Saturation 98.1 % (94-97) H 07/28/23 06:12 PT/INR, D-dimer PT 12.2 sec (10.0-12.5) 07/27/23 02:00 INR 1.1 (<1.2) 07/27/23 02:00 Abnormal lab findings: Abnormal Labs 07/27/23 07/27/23 07/27/23 02:00 02:00 02:00 WBC RBC 3.34 L Hgb 10.8 L Hct 35.9 L MCV 107.3 H MCHC 30.1 L RDW 20.4 H Immature Gran # Neutrophils # Lymphocytes # 0.8 L Monocytes # Eosinophils # NRBC/100 WBC Diff Macrocytosis Marked A ABG pH ABG pCO2 ABG pO2 ABG HCO3 ABG Total CO2 ABG O2 Saturation Sodium 132 L Potassium Chloride 96 L Carbon Dioxide 16 L Anion Gap BUN 45 H Creatinine 4.43 H Est GFR (CKD-EPI) BUN/Creatinine Ratio Glucose 176 H POC Glucose (mg/dL) Plasma Lactic Acid Jarvis 2.8 H* Calcium Phosphorus 5.8 H Alkaline Phosphatase 181 H Troponin I Albumin Albumin/Globulin Ratio TSH 7.090 H Urine Protein Urine Blood Urine Bilirubin Ur Leukocyte Esterase Urine RBC Urine WBC Ur Squamous Epith Cells Urine Mucus Urine Yeast (Budding) 07/27/23 07/27/23 07/27/23 06:37 07:26 10:44 WBC RBC Hgb Hct MCV MCHC RDW Immature Gran # Neutrophils # Lymphocytes # Monocytes # Eosinophils # NRBC/100 WBC Diff Macrocytosis ABG pH ABG pCO2 ABG pO2 ABG HCO3 ABG Total CO2 ABG O2 Saturation Sodium Potassium Chloride Carbon Dioxide Anion Gap BUN Creatinine Est GFR (CKD-EPI) BUN/Creatinine Ratio Glucose POC Glucose (mg/dL) 56 L 116 H Plasma Lactic Acid Jarvis Calcium Phosphorus Alkaline Phosphatase Troponin I Albumin Albumin/Globulin Ratio TSH Urine Protein Trace H Urine Blood Large H Urine Bilirubin 1+ H Ur Leukocyte Esterase Large H Urine RBC >182 H Urine WBC 36 H Ur Squamous Epith Cells 14 H Urine Mucus Rare H Urine Yeast (Budding) Occasional H 07/27/23 07/27/23 07/27/23 12:58 17:22 20:44 WBC RBC Hgb Hct MCV MCHC RDW Immature Gran # Neutrophils # Lymphocytes # Monocytes # Eosinophils # NRBC/100 WBC Diff Macrocytosis ABG pH ABG pCO2 ABG pO2 ABG HCO3 ABG Total CO2 ABG O2 Saturation Sodium Potassium Chloride Carbon Dioxide Anion Gap BUN Creatinine Est GFR (CKD-EPI) BUN/Creatinine Ratio Glucose POC Glucose (mg/dL) 122 H 173 H 173 H Plasma Lactic Acid Jarvis Calcium Phosphorus Alkaline Phosphatase Troponin I Albumin Albumin/Globulin Ratio TSH Urine Protein Urine Blood Urine Bilirubin Ur Leukocyte Esterase Urine RBC Urine WBC Ur Squamous Epith Cells Urine Mucus Urine Yeast (Budding) 07/28/23 07/28/23 07/28/23 00:38 00:55 01:09 WBC RBC Hgb Hct MCV MCHC RDW Immature Gran # Neutrophils # Lymphocytes # Monocytes # Eosinophils # NRBC/100 WBC Diff Macrocytosis ABG pH 7.23 L ABG pCO2 49 H ABG pO2 74 L ABG HCO3 ABG Total CO2 ABG O2 Saturation 89.7 L Sodium Potassium Chloride Carbon Dioxide Anion Gap BUN Creatinine Est GFR (CKD-EPI) BUN/Creatinine Ratio Glucose POC Glucose (mg/dL) 202 H 211 H Plasma Lactic Acid Jarvis Calcium Phosphorus Alkaline Phosphatase Troponin I Albumin Albumin/Globulin Ratio TSH Urine Protein Urine Blood Urine Bilirubin Ur Leukocyte Esterase Urine RBC Urine WBC Ur Squamous Epith Cells Urine Mucus Urine Yeast (Budding) 07/28/23 07/28/23 07/28/23 01:20 01:20 05:48 WBC 11.6 H RBC 3.16 L Hgb 10.1 L Hct 34.7 L MCV 109.9 H MCHC 29.1 L RDW 20.8 H Immature Gran # Neutrophils # Lymphocytes # Monocytes # Eosinophils # NRBC/100 WBC Diff Macrocytosis Marked A ABG pH ABG pCO2 ABG pO2 ABG HCO3 ABG Total CO2 ABG O2 Saturation Sodium 133 L 134 L Potassium 5.9 H 5.9 H Chloride 95 L Carbon Dioxide 20 L Anion Gap 15.80 H BUN 29 H 29.3 H Creatinine 3.10 H 3.4 H Est GFR (CKD-EPI) 18 L BUN/Creatinine Ratio 8.62 L Glucose 202 H 177 H POC Glucose (mg/dL) Plasma Lactic Acid Jarvis Calcium 8.1 L Phosphorus Alkaline Phosphatase 182 H 155 H Troponin I Albumin 3.4 L 3.4 L Albumin/Globulin Ratio 1.13 L TSH Urine Protein Urine Blood Urine Bilirubin Ur Leukocyte Esterase Urine RBC Urine WBC Ur Squamous Epith Cells Urine Mucus Urine Yeast (Budding) 07/28/23 07/28/23 07/28/23 05:48 06:12 07:06 WBC 10.22 H RBC 3.18 L Hgb 10.0 L Hct 32.5 L MCV 102.2 H MCHC 30.8 L RDW 20.5 H Immature Gran # 0.15 H Neutrophils # 7.92 H Lymphocytes # 0.89 L Monocytes # 1.22 H Eosinophils # 0.01 L NRBC/100 WBC Diff 0.06 H Macrocytosis ABG pH 7.48 H ABG pCO2 ABG pO2 112 H ABG HCO3 26 H ABG Total CO2 27 H ABG O2 Saturation 98.1 H Sodium Potassium Chloride Carbon Dioxide Anion Gap BUN Creatinine Est GFR (CKD-EPI) BUN/Creatinine Ratio Glucose POC Glucose (mg/dL) 184 H Plasma Lactic Acid Jarvis Calcium Phosphorus Alkaline Phosphatase Troponin I Albumin Albumin/Globulin Ratio TSH Urine Protein Urine Blood Urine Bilirubin Ur Leukocyte Esterase Urine RBC Urine WBC Ur Squamous Epith Cells Urine Mucus Urine Yeast (Budding) 07/28/23 07/28/23 07:54 12:10 WBC RBC Hgb Hct MCV MCHC RDW Immature Gran # Neutrophils # Lymphocytes # Monocytes # Eosinophils # NRBC/100 WBC Diff Macrocytosis ABG pH ABG pCO2 ABG pO2 ABG HCO3 ABG Total CO2 ABG O2 Saturation Sodium Potassium Chloride Carbon Dioxide Anion Gap BUN Creatinine Est GFR (CKD-EPI) BUN/Creatinine Ratio Glucose POC Glucose (mg/dL) 227 H Plasma Lactic Acid Jarvis Calcium Phosphorus Alkaline Phosphatase Troponin I 0.063 H* Albumin Albumin/Globulin Ratio TSH Urine Protein Urine Blood Urine Bilirubin Ur Leukocyte Esterase Urine RBC Urine WBC Ur Squamous Epith Cells Urine Mucus Urine Yeast (Budding) - Diagnostic Findings Chest x-ray: image reviewed (Mostly slight interstitial prominence with atelectasis noted in the right lung apex and left lung base.) Assessment and Plan Assessment: Impression: Cardiac arrest requiring CPR and resuscitation for 14 minutes/down time, patient had pulseless electrical activity cardiac arrest Suspect underlying orthostatic hypotension with recurrent falls prior to adm ission Chronic diastolic congestive heart failure Severe pulmonary hypertension Acute metabolic acidosis secondary to chronic kidney disease Hyperkalemia secondary to chronic kidney disease, patient is on hemodialysis and he is also on [facility] Anemia of chronic disease/chronic kidney disease History of obstructive sleep apnea syndrome History of peritonitis sepsis and septic shock Chronic atrial fibrillation Type 2 diabetes with diabetic nephropathy History of sick sinus syndrome and permanent pacemaker implantation possible anoxic brain injury Recommendation: Continue ventilatory support, FiO2 was cut down to 60%, deep increased to 10, Continue hemodialysis Continue pressors/norepinephrine and titrate accordingly Continue ceftriaxone and eliquis [employer] neurology for possible anoxic brain injury Cardiology to see her on consultation for his cardiac arrest and patient had a significant cardiac history Nephrology to address hemodialysis and his electrolytes and hyperkalemia Start the nutritional support/enteral feeding GI and DVT prophylaxis Central line and arterial line were established Patient is obviously critically ill, Prognosis is guarded especially depending on his neurological status and recovery. We will continue to follow. Critical care time is over 50 minutes not including the time spent on procedures Time with Patient: Greater than 30
--- NOTE | 2023-07-28 14:21 | CT ---
EXAMINATION TYPE: CT brain wo con DATE OF EXAM: 07/28/2023 COMPARISON: 07/12/2016 HISTORY: 78-year-old male intubated, altered mental status, confusion, CPR TECHNIQUE: Examination was done in axial plane without intravenous contrast. Coronal and sagittal r econstructions performed. CT DLP: Not reported Automated exposure control for dose reduction was used. FINDINGS: There is no evidence of acute intracranial hemorrhage, acute ischemic changes, mass, mass-effect, or extra-axial fluid collection. There is no effacement of cerebral sulci or basal subarachnoid cister ns. There is no hydrocephalus. There is no midline shift. Encarnacion-white matter distinction is preserv ed. Atherosclerotic calcifications carotid siphons. Mild generalized supratentorial volume loss. Secondar y mild prominence to the ventricular system. Overall similar to prior exam. Paranasal sinuses and mastoid air cells are well pneumatized. Orbits and globes are intact. Slight leftward nasal septal deviation. IMPRESSION: Similar mild generalized atrophy. No acute intracranial abnormality seen.
--- NOTE | 2023-07-28 14:32 | P.CNNES ---
History of Present Illness Consult date: 07/28/23 Requesting physician: Dina Acosta Reason for Consult: neuro evaluation s/p post cardiac arrest History of Present Illness: This a 78-year-old gentleman with diabetes mellitus, cardiomyopathy, sleep apnea, atrial fibrillation on eliquis, chronic renal failure on hemodialysis who presented emergency department on 07/27/2023 because of a fall and generalized weakness. Some of the history is obtained from the patient's was at bedside as well as medical record. According to the while at home gentle was having generalized weakness and was having difficulty getting out of the the living chair to the bathroom and then he fell but denied him passing out that she recalls. No seizure-like activity. It seems overnight in our facility patient had a cardiopulmonary arrest around 12:30 AM and the patient received CPR, 3 epi, 1 bicarb and was felt to be down for about 14 minutes. Notified by the nurses have the initial rhythm was PEA. Patient was intubated on a ventilator. He is on IV propofol 25mcg/kg/min. per the patient in ICU nurse no myoclonic jerks or seizure-like activity. According to the he does not have any history of seizures, any history of stroke or TIA in the past. It seems the patient has underlying resting tremor and was invalid by neurologists in the past but she does not recall who and was felt the patient does not have any underlying history of Parkinson's. Some of the workup during his hospital visit consisted of: He is having episodes of hypotensive as well as 70-80 over 40-50s and also his pulse ox was as low as 81% liters Most recent sodium is trended up at 133, potassium is 5.9, glucose is 170s to 200s, AST ALT was within normal limits Plasma lactic acid vein is 2.8 and most recent is 1.3. SH as a 7.090. Past Medical History Past Medical History: Atrial Fibrillation, COPD, Diabetes Mellitus, Dialysis, GERD/Reflux, Hyperlipidemia, Hypertension, Osteoarthritis (OA), Renal Disease, Sleep Apnea/CPAP/BIPAP, Thyroid Disorder Additional Past Medical History / Comment(s): O2 3L per nasal cannula. Dialysis MOWEFR. Cardiomyopathy. Gout. Constipation. 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 hemodialysis cath, peritoneal dialysis Past Anesthesia/Blood Transfusion Reactions: No Reported Reaction Type of Cardiac Device: Permanent Pacemaker Device Placement Date:: 10/17/2012 Past Psychological History: No Psychological Hx Reported Smoking Status: Former smoker Past Alcohol Use History: None Reported Past Drug Use History: None Reported - Past Family History Father History Unknown: Yes Additional Family Medical History / Comment(s): "hardening of the arteries" Mother History Unknown: Yes Additional Family Medical History / Comment(s): "water in the lungs" at 95. Medications and Allergies Home Medications Medication Instructions Recorded Confirmed Type allopurinoL [Zyloprim] 300 mg PO DAILY 11/21/14 07/27/23 History Acetaminophen Tab [Tylenol] 650 mg PO BID 07/12/16 07/27/23 History Multivitamins, Thera [Multivitamin 1 tab PO DAILY 10/03/17 07/27/23 History (formulary)] Lovastatin [Altoprev] 40 mg PO HS 05/24/21 07/27/23 History Omeprazole 40 mg PO DAILY 03/29/22 07/27/23 History Midodrine HCl [ProAmatine] 10 mg PO QID PRN 02/14/23 07/27/23 History glipiZIDE [Glucotrol] 10 mg PO DAILY@1400 02/14/23 07/27/23 History Sucralfate [Carafate] 1 gm PO BID 02/15/23 07/27/23 History Docusate [Colace] 100 mg PO BID 05/10/23 07/27/23 History Fludrocortisone [Florinef] 0.1 mg PO DAILY 05/10/23 07/27/23 History Ferrous Sulfate [Feosol] 325 mg PO DAILY 30 Days #60 tab 05/12/23 07/27/23 Rx Amiodarone [Cordarone] 200 mg PO DAILY 30 Days #30 tab 06/18/23 07/27/23 Rx L.acidoph,Paracasei, B.lactis 1 cap PO DAILY 07/07/23 07/27/23 History [Probiotic] Torsemide [Demadex] 80 mg PO DAILY 07/07/23 07/27/23 History glipiZIDE [Glucotrol] 20 mg PO DAILY@0800 07/07/23 07/27/23 History Apixaban [Eliquis] 5 mg PO BID #60 tab 07/12/23 07/27/23 Rx Darbepoetin Chirag [Aranesp] 60 mcg SQ Q7D 30 Days #4 each 07/12/23 07/27/23 Rx Nystatin 100,000 Unit/gm Powd 1 applic TOPICAL BID 30 Days #2 07/12/23 07/27/23 Rx [Mycostatin Powder] each Allergies Allergy/AdvReac Type Severity Reaction Status Date / Time lisinopril AdvReac Mild Cough Verified 07/27/23 08:23 Physical Examination - Vital Signs Vital Signs: Vital Signs Temp Pulse Pulse Resp BP BP Pulse Ox 07/28/23 12:15 60 20 97 07/28/23 12:00 98.1 F 60 20 97 07/28/23 11:45 60 20 97 07/28/23 11:30 60 20 97 07/28/23 11:15 60 20 97 07/28/23 11:10 07/28/23 11:00 60 20 96 07/28/23 10:45 60 20 96 07/28/23 10:30 60 20 99/65 96 07/28/23 10:15 60 20 98/64 96 07/28/23 10:00 60 20 102/62 96 07/28/23 09:45 60 20 97/60 98 07/28/23 09:30 60 20 95/60 96 07/28/23 09:23 07/28/23 09:15 60 20 96/58 98 07/28/23 09:00 60 20 103/59 98 07/28/23 08:45 60 20 98/59 98 07/28/23 08:30 60 22 99/59 98 07/28/23 08:15 60 20 102/61 97 07/28/23 08:04 07/28/23 08:01 07/28/23 08:00 97.4 F L 60 20 91/59 100 07/28/23 07:45 60 20 122/71 100 07/28/23 07:30 60 18 97/60 100 07/28/23 07:15 60 18 100/60 99 07/28/23 07:00 60 18 100/60 99 07/28/23 06:45 60 20 98/61 99 07/28/23 06:30 60 20 99/64 99 07/28/23 06:15 60 20 102/63 98 07/28/23 06:00 60 20 101/63 97 07/28/23 05:45 60 20 101/64 98 07/28/23 05:30 60 20 90/63 98 07/28/23 05:15 60 20 101/63 97 07/28/23 05:00 60 20 98/64 97 07/28/23 04:45 60 20 98/61 96 07/28/23 04:30 60 20 95/59 99 07/28/23 04:20 60 20 95/59 98 07/28/23 04:10 60 20 95/61 98 07/28/23 04:00 60 20 87/58 98 07/28/23 03:50 60 20 87/58 98 07/28/23 03:40 60 20 85/55 98 07/28/23 03:30 60 20 86/51 98 07/28/23 03:20 62 20 86/51 98 07/28/23 03:10 60 18 95/64 98 07/28/23 03:00 60 18 90/59 98 07/28/23 02:50 60 18 90/59 98 07/28/23 02:40 60 18 89/57 98 07/28/23 02:30 60 18 84/57 97 07/28/23 02:20 60 18 84/57 97 07/28/23 02:10 61 18 83/54 99 07/28/23 02:00 60 18 77/47 97 07/28/23 01:50 60 18 76/42 96 07/28/23 01:44 07/28/23 01:40 60 18 86/57 95 07/28/23 01:30 59 L 22 92/65 94 L 07/28/23 01:20 58 L 19 92/65 95 07/28/23 01:10 60 18 100/63 95 07/28/23 01:00 61 27 H 102/61 81 L 07/28/23 00:55 73 10 L 07/27/23 19:12 97.3 F L 67 18 96/49 93 L 07/27/23 15:00 96.8 F L 60 117/64 95 FiO2 07/28/23 12:15 07/28/23 12:00 65 07/28/23 11:45 07/28/23 11:30 07/28/23 11:15 07/28/23 11:10 50 07/28/23 11:00 07/28/23 10:45 07/28/23 10:30 07/28/23 10:15 07/28/23 10:00 07/28/23 09:45 07/28/23 09:30 07/28/23 09:23 50 07/28/23 09:15 07/28/23 09:00 07/28/23 08:45 07/28/23 08:30 07/28/23 08:15 07/28/23 08:04 60 07/28/23 08:01 70 07/28/23 08:00 80 07/28/23 07:45 07/28/23 07:30 07/28/23 07:15 80 07/28/23 07:00 07/28/23 06:45 07/28/23 06:30 80 07/28/23 06:15 07/28/23 06:00 07/28/23 05:45 07/28/23 05:30 07/28/23 05:15 07/28/23 05:00 80 07/28/23 04:45 07/28/23 04:30 07/28/23 04:20 07/28/23 04:10 07/28/23 04:00 100 07/28/23 03:50 07/28/23 03:40 07/28/23 03:30 07/28/23 03:20 07/28/23 03:10 07/28/23 03:00 100 07/28/23 02:50 07/28/23 02:40 07/28/23 02:30 07/28/23 02:20 07/28/23 02:10 07/28/23 02:00 100 07/28/23 01:50 07/28/23 01:44 100 07/28/23 01:40 07/28/23 01:30 07/28/23 01:20 07/28/23 01:10 07/28/23 01:00 100 07/28/23 00:55 07/27/23 19:12 07/27/23 15:00 Intake and Output 07/27/23 07/28/23 07/28/23 22:59 06:59 14:59 Intake Total 718.929 829.860 Output Total 0 Balance 718.929 829.860 Intake: IV 620 480 Calcium Gluconate in NaCl 100 1 gm In Saline 1 100ml. bag @ 100 mls/hr IVPB ONCE ONE Rx#:[id number] Sodium Chloride 0.9% 1, 520 380 000 ml @ 50 mls/hr IV . Q20H SERGEY Rx#:[id number] cefTRIAXone 1 gm In 100 Sodium Chloride 0.9% 50 ml @ 100 mls/hr IVPB Q24HR SERGEY Rx#:[id number] Intake, IV Titration 98.929 349.860 Amount Norepinephrine 4 mg In 33.996 245.240 Sodium Chloride 0.9% 250 ml @ 0.03 MCG/KG/MIN 13. 361 mls/hr IV .Q19H1M SERGEY Rx#:[id number] propofoL 1,000 mg In 64.933 104.620 Empty Bag 1 bag @ 15 MCG/ KG/MIN 10.52 mls/hr IV . Q9H31M SERGEY Rx#:[id number] Output: Urine 0 Other: # Voids 0 Weight 122.8 kg 123.559 kg ABP, PAP, CO, CI - Last 8 Hours Arterial Blood Pressure 95/53 Arterial Blood Pressure 103/58 Arterial Blood Pressure 93/54 Arterial Blood Pressure 97/55 Arterial Blood Pressure 95/55 Arterial Blood Pressure 92/54 Arterial Blood Pressure 92/54 Arterial Blood Pressure 89/51 Arterial Blood Pressure 24/24 General: Lying in bed and does not appear in acute distress. Resp: Intubated on ventilator. Neuro: Limited. Patient is on IV Propofol 25mcg/kg/min. Is comatose. GCS 3 (E1, VT1, M1). I manually open his eyes and the pupils are pinpoint. No corneal reflex noted. No oculocephalic. His breathing over the vent. Has intact gag and cough. No facial weakness. Motor the strength is unable to assess. No spontaneous movement. No myoclonic jerks. Decreased tone throughout. Normal bulk throughout. Reflex: 1+ throughout. Plantars are mute bilaterally. Results - Laboratory Findings CBC and BMP: 07/28/23 05:48 07/28/23 05:48 Abnormal Lab Findings: Abnormal Labs 07/27/23 07/27/23 07/27/23 02:00 02:00 02:00 WBC RBC 3.34 L Hgb 10.8 L Hct 35.9 L MCV 107.3 H MCHC 30.1 L RDW 20.4 H Immature Gran # Neutrophils # Lymphocytes # 0.8 L Monocytes # Eosinophils # NRBC/100 WBC Diff Macrocytosis Marked A ABG pH ABG pCO2 ABG pO2 ABG HCO3 ABG Total CO2 ABG O2 Saturation Sodium 132 L Potassium Chloride 96 L Carbon Dioxide 16 L Anion Gap BUN 45 H Creatinine 4.43 H Est GFR (CKD-EPI) BUN/Creatinine Ratio Glucose 176 H POC Glucose (mg/dL) Plasma Lactic Acid Jarvis 2.8 H* Calcium Phosphorus 5.8 H Alkaline Phosphatase 181 H Troponin I Albumin Albumin/Globulin Ratio TSH 7.090 H Urine Protein Urine Blood Urine Bilirubin Ur Leukocyte Esterase Urine RBC Urine WBC Ur Squamous Epith Cells Urine Mucus Urine Yeast (Budding) 07/27/23 07/27/23 07/27/23 06:37 07:26 10:44 WBC RBC Hgb Hct MCV MCHC RDW Immature Gran # Neutrophils # Lymphocytes # Monocytes # Eosinophils # NRBC/100 WBC Diff Macrocytosis ABG pH ABG pCO2 ABG pO2 ABG HCO3 ABG Total CO2 ABG O2 Saturation Sodium Potassium Chloride Carbon Dioxide Anion Gap BUN Creatinine Est GFR (CKD-EPI) BUN/Creatinine Ratio Glucose POC Glucose (mg/dL) 56 L 116 H Plasma Lactic Acid Jarvis Calcium Phosphorus Alkaline Phosphatase Troponin I Albumin Albumin/Globulin Ratio TSH Urine Protein Trace H Urine Blood Large H Urine Bilirubin 1+ H Ur Leukocyte Esterase Large H Urine RBC >182 H Urine WBC 36 H Ur Squamous Epith Cells 14 H Urine Mucus Rare H Urine Yeast (Budding) Occasional H 07/27/23 07/27/23 07/27/23 12:58 17:22 20:44 WBC RBC Hgb Hct MCV MCHC RDW Immature Gran # Neutrophils # Lymphocytes # Monocytes # Eosinophils # NRBC/100 WBC Diff Macrocytosis ABG pH ABG pCO2 ABG pO2 ABG HCO3 ABG Total CO2 ABG O2 Saturation Sodium Potassium Chloride Carbon Dioxide Anion Gap BUN Creatinine Est GFR (CKD-EPI) BUN/Creatinine Ratio Glucose POC Glucose (mg/dL) 122 H 173 H 173 H Plasma Lactic Acid Jarvis Calcium Phosphorus Alkaline Phosphatase Troponin I Albumin Albumin/Globulin Ratio TSH Urine Protein Urine Blood Urine Bilirubin Ur Leukocyte Esterase Urine RBC Urine WBC Ur Squamous Epith Cells Urine Mucus Urine Yeast (Budding) 07/28/23 07/28/23 07/28/23 00:38 00:55 01:09 WBC RBC Hgb Hct MCV MCHC RDW Immature Gran # Neutrophils # Lymphocytes # Monocytes # Eosinophils # NRBC/100 WBC Diff Macrocytosis ABG pH 7.23 L ABG pCO2 49 H ABG pO2 74 L ABG HCO3 ABG Total CO2 ABG O2 Saturation 89.7 L Sodium Potassium Chloride Carbon Dioxide Anion Gap BUN Creatinine Est GFR (CKD-EPI) BUN/Creatinine Ratio Glucose POC Glucose (mg/dL) 202 H 211 H Plasma Lactic Acid Jarvis Calcium Phosphorus Alkaline Phosphatase Troponin I Albumin Albumin/Globulin Ratio TSH Urine Protein Urine Blood Urine Bilirubin Ur Leukocyte Esterase Urine RBC Urine WBC Ur Squamous Epith Cells Urine Mucus Urine Yeast (Budding) 07/28/23 07/28/23 07/28/23 01:20 01:20 05:48 WBC 11.6 H RBC 3.16 L Hgb 10.1 L Hct 34.7 L MCV 109.9 H MCHC 29.1 L RDW 20.8 H Immature Gran # Neutrophils # Lymphocytes # Monocytes # Eosinophils # NRBC/100 WBC Diff Macrocytosis Marked A ABG pH ABG pCO2 ABG pO2 ABG HCO3 ABG Total CO2 ABG O2 Saturation Sodium 133 L 134 L Potassium 5.9 H 5.9 H Chloride 95 L Carbon Dioxide 20 L Anion Gap 15.80 H BUN 29 H 29.3 H Creatinine 3.10 H 3.4 H Est GFR (CKD-EPI) 18 L BUN/Creatinine Ratio 8.62 L Glucose 202 H 177 H POC Glucose (mg/dL) Plasma Lactic Acid Jarvis Calcium 8.1 L Phosphorus Alkaline Phosphatase 182 H 155 H Troponin I Albumin 3.4 L 3.4 L Albumin/Globulin Ratio 1.13 L TSH Urine Protein Urine Blood Urine Bilirubin Ur Leukocyte Esterase Urine RBC Urine WBC Ur Squamous Epith Cells Urine Mucus Urine Yeast (Budding) 07/28/23 07/28/23 07/28/23 05:48 06:12 07:06 WBC 10.22 H RBC 3.18 L Hgb 10.0 L Hct 32.5 L MCV 102.2 H MCHC 30.8 L RDW 20.5 H Immature Gran # 0.15 H Neutrophils # 7.92 H Lymphocytes # 0.89 L Monocytes # 1.22 H Eosinophils # 0.01 L NRBC/100 WBC Diff 0.06 H Macrocytosis ABG pH 7.48 H ABG pCO2 ABG pO2 112 H ABG HCO3 26 H ABG Total CO2 27 H ABG O2 Saturation 98.1 H Sodium Potassium Chloride Carbon Dioxide Anion Gap BUN Creatinine Est GFR (CKD-EPI) BUN/Creatinine Ratio Glucose POC Glucose (mg/dL) 184 H Plasma Lactic Acid Jarvis Calcium Phosphorus Alkaline Phosphatase Troponin I Albumin Albumin/Globulin Ratio TSH Urine Protein Urine Blood Urine Bilirubin Ur Leukocyte Esterase Urine RBC Urine WBC Ur Squamous Epith Cells Urine Mucus Urine Yeast (Budding) 07/28/23 07/28/23 07:54 12:10 WBC RBC Hgb Hct MCV MCHC RDW Immature Gran # Neutrophils # Lymphocytes # Monocytes # Eosinophils # NRBC/100 WBC Diff Macrocytosis ABG pH ABG pCO2 ABG pO2 ABG HCO3 ABG Total CO2 ABG O2 Saturation Sodium Potassium Chloride Carbon Dioxide Anion Gap BUN Creatinine Est GFR (CKD-EPI) BUN/Creatinine Ratio Glucose POC Glucose (mg/dL) 227 H Plasma Lactic Acid Jarvis Calcium Phosphorus Alkaline Phosphatase Troponin I 0.063 H* Albumin Albumin/Globulin Ratio TSH Urine Protein Urine Blood Urine Bilirubin Ur Leukocyte Esterase Urine RBC Urine WBC Ur Squamous Epith Cells Urine Mucus Urine Yeast (Budding) Assessment and Plan Assessment: This is a 78 y/o gentleman with multiple medical problems who presents to ED on 07/27/2023 because of generalized weakness and a fall. He had difficulty getting out of chair to bathroom. In our facility at 12:30am on 07/28/2023 he had cardiopulmonary arrest lasting 14 minutes. Acute cardiopulmonary arrest lasting 14 minutes. He was in PEA per nursing staff. Anoxic encephalopathy versus ?brain injury due to above. Also component of encephalopathy due to metabolic and hypoxic encephalopathy. Hypotensive on epinephrine Diabetes mellitus that is on going History of Cardiomyopathy Sleep apnea History of atrial fibrillation on eliquis Chronic renal failure on hemodialysis Plan: CT head is ordered and is pending. I ordered STAT EEG. I ordered ammonia level. Please avoid hypotensive episodes. Patient has abnormal thyroid as well as abnormal electrode disturbance and we'll defer the management to the primary/ICU team. We'll defer the rest of the medical management to primary and other specialist Condition condition is a guarded The plan was discussed with the patient's was at bedside as well as ICU nurse Thank you for the consultation Time with Patient: Greater than 30
--- NOTE | 2023-07-28 15:24 | P.HPIM ---
History of Present Illness H&P Date: 07/27/23 78-year-old white male with history of atrial fibrillation, hypertension, hyperlipidemia, diabetes mellitus, chronic renal failure/chronic kidney disease on hemodialysis, chronic diastolic CHF with moderate to severe tricuspid regurgitation, pulmonary hypertension, obstructive sleep apnea, was brought into the ER with mostly history of weakness and falling easily. Workup completed in ED including blood work reveals WBC of 9.2, hemoglobin of 10.8 and platelet count of 183, sodium 132, potassium level wasn't done due to hemolyzed specimen, BUN/creatinine of 45/1.43 and blood glucose of 176, UA is positive for blood and leukocyte esterase; Patient was admitted for further evaluation of weakness/falls She does currently receiving dialysis; awake and alert; not reporting any complaints Review of Systems REVIEW OF SYSTEMS: CONSTITUTIONAL: No fever, no malaise, no fatigue. HEENT: No recent visual problems or hearing problems. Denied any sore throat. CARDIOVASCULAR: No chest pain, orthopnea, PND, no palpitations, no syncope. PULMONARY: No shortness of breath, no cough, no hemoptysis. GASTROINTESTINAL: No diarrhea, no nausea, no vomiting, no abdominal pain. NEUROLOGICAL: No headaches, no weakness, no numbness. HEMATOLOGICAL: Denies any bleeding or petechiae. GENITOURINARY: Denies any burning micturition, frequency, or urgency. MUSCULOSKELETAL/RHEUMATOLOGICAL: Denies any joint pain, swelling, or any muscle pain. ENDOCRINE: Denies any polyuria or polydipsia. The rest of the 14-point review of systems is negative. Past Medical History Past Medical History: Atrial Fibrillation, COPD, Diabetes Mellitus, Dialysis, GERD/Reflux, Hyperlipidemia, Hypertension, Osteoarthritis (OA), Renal Disease, Sleep Apnea/CPAP/BIPAP, Thyroid Disorder Additional Past Medical History / Comment(s): O2 3L per nasal cannula. Dialysis MOWEFR. Cardiomyopathy. Gout. Constipation. 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 hemodialysis cath, peritoneal dialysis Past Anesthesia/Blood Transfusion Reactions: No Reported Reaction Type of Cardiac Device: Permanent Pacemaker Device Placement Date:: 10/17/2012 Past Psychological History: No Psychological Hx Reported Smoking Status: Former smoker Past Alcohol Use History: None Reported Past Drug Use History: None Reported - Past Family History Father History Unknown: Yes Additional Family Medical History / Comment(s): "hardening of the arteries" Mother History Unknown: Yes Additional Family Medical History / Comment(s): "water in the lungs" at 95. Medications and Allergies Home Medications Medication Instructions Recorded Confirmed Type allopurinoL [Zyloprim] 300 mg PO DAILY 11/21/14 07/27/23 History Acetaminophen Tab [Tylenol] 650 mg PO BID 07/12/16 07/27/23 History Multivitamins, Thera [Multivitamin 1 tab PO DAILY 10/03/17 07/27/23 History (formulary)] Lovastatin [Altoprev] 40 mg PO HS 05/24/21 07/27/23 History Omeprazole 40 mg PO DAILY 03/29/22 07/27/23 History Midodrine HCl [ProAmatine] 10 mg PO QID PRN 02/14/23 07/27/23 History glipiZIDE [Glucotrol] 10 mg PO DAILY@1400 02/14/23 07/27/23 History Sucralfate [Carafate] 1 gm PO BID 02/15/23 07/27/23 History Docusate [Colace] 100 mg PO BID 05/10/23 07/27/23 History Fludrocortisone [Florinef] 0.1 mg PO DAILY 05/10/23 07/27/23 History Ferrous Sulfate [Feosol] 325 mg PO DAILY 30 Days #60 tab 05/12/23 07/27/23 Rx Amiodarone [Cordarone] 200 mg PO DAILY 30 Days #30 tab 06/18/23 07/27/23 Rx L.acidoph,Paracasei, B.lactis 1 cap PO DAILY 07/07/23 07/27/23 History [Probiotic] Torsemide [Demadex] 80 mg PO DAILY 07/07/23 07/27/23 History glipiZIDE [Glucotrol] 20 mg PO DAILY@0800 07/07/23 07/27/23 History Apixaban [Eliquis] 5 mg PO BID #60 tab 07/12/23 07/27/23 Rx Darbepoetin Chirag [Aranesp] 60 mcg SQ Q7D 30 Days #4 each 07/12/23 07/27/23 Rx Nystatin 100,000 Unit/gm Powd 1 applic TOPICAL BID 30 Days #2 07/12/23 07/27/23 Rx [Mycostatin Powder] each Allergies Allergy/AdvReac Type Severity Reaction Status Date / Time lisinopril AdvReac Mild Cough Verified 07/27/23 08:23 Physical Exam Vitals: Vital Signs Temp Pulse Resp BP Pulse Ox 07/27/23 08:51 60 18 137/63 97 07/27/23 06:05 68 07/27/23 06:04 62 20 124/75 95 07/27/23 05:52 60 07/27/23 05:00 63 18 119/69 97 07/27/23 04:00 65 18 124/77 97 07/27/23 03:00 61 18 120/72 97 07/27/23 00:02 98.0 F 63 20 98/47 92 L Intake and Output 07/26/23 07/27/23 07/27/23 22:59 06:59 14:59 Other: Weight 116.891 kg General appearance: alert, in no apparent distress Head exam: Present: atraumatic, normocephalic, normal inspection Eye exam: Present: normal appearance, PERRL, EOMI. Absent: scleral icterus, conjunctival injection, periorbital swelling ENT exam: Present: normal exam, mucous membranes moist Neck exam: Present: normal inspection. Absent: tenderness, meningismus, lymphadenopathy Respiratory exam: Present: normal lung sounds bilaterally. Absent: respiratory distress, wheezes, rales, rhonchi, stridor Cardiovascular Exam: Present: regular rate, normal rhythm, normal heart sounds. Absent: systolic murmur, diastolic murmur, rubs, gallop, clicks GI/Abdominal exam: Present: soft, normal bowel sounds. Absent: distended, tenderness, guarding, rebound, rigid Extremities exam: Present: normal inspection, full ROM, normal capillary refill. Absent: tenderness, pedal edema, joint swelling, calf tenderness Back exam: Present: normal inspection Neurological exam: Present: alert, oriented X3, CN II-XII intact Psychiatric exam: Present: normal affect, normal mood Skin exam: Present: warm, dry, intact, normal color. Absent: rash Results CBC & Chem 7: 07/28/23 05:48 07/28/23 05:48 Labs: Abnormal Lab Results - Last 24 Hours (Table) 07/27/23 07/27/23 07/27/23 Range/Units 02:00 02:00 02:00 RBC 3.34 L (4.30-5.90) m/uL Hgb 10.8 L (13.0-17.5) gm/dL Hct 35.9 L (39.0-53.0) % MCV 107.3 H (80.0-100.0) fL MCHC 30.1 L (31.0-37.0) g/dL RDW 20.4 H (11.5-15.5) % Lymphocytes # 0.8 L (1.0-4.8) k/uL Macrocytosis Marked A Sodium 132 L (137-145) mmol/L Chloride 96 L (98-107) mmol/L Carbon Dioxide 16 L (22-30) mmol/L BUN 45 H (9-20) mg/dL Creatinine 4.43 H (0.66-1.25) mg/dL Glucose 176 H (74-99) mg/dL POC Glucose (mg/dL) (70-110) mg/dL Plasma Lactic Acid Jarvis 2.8 H* (0.7-2.0) mmol/L Phosphorus 5.8 H (2.5-4.5) mg/dL Alkaline Phosphatase 181 H (38-126) U/L TSH 7.090 H (0.465-4.680) mIU/L Urine Protein (Negative) Urine Blood (Negative) Urine Bilirubin (Negative) Ur Leukocyte Esterase (Negative) Urine RBC (0-5) /hpf Urine WBC (0-5) /hpf Ur Squamous Epith Cells (0-4) /hpf Urine Mucus (None) /hpf Urine Yeast (Budding) (None) /hpf 07/27/23 07/27/23 07/27/23 Range/Units 06:37 07:26 10:44 RBC (4.30-5.90) m/uL Hgb (13.0-17.5) gm/dL Hct (39.0-53.0) % MCV (80.0-100.0) fL MCHC (31.0-37.0) g/dL RDW (11.5-15.5) % Lymphocytes # (1.0-4.8) k/uL Macrocytosis Sodium (137-145) mmol/L Chloride (98-107) mmol/L Carbon Dioxide (22-30) mmol/L BUN (9-20) mg/dL Creatinine (0.66-1.25) mg/dL Glucose (74-99) mg/dL POC Glucose (mg/dL) 56 L 116 H (70-110) mg/dL Plasma Lactic Acid Jarvis (0.7-2.0) mmol/L Phosphorus (2.5-4.5) mg/dL Alkaline Phosphatase (38-126) U/L TSH (0.465-4.680) mIU/L Urine Protein Trace H (Negative) Urine Blood Large H (Negative) Urine Bilirubin 1+ H (Negative) Ur Leukocyte Esterase Large H (Negative) Urine RBC >182 H (0-5) /hpf Urine WBC 36 H (0-5) /hpf Ur Squamous Epith Cells 14 H (0-4) /hpf Urine Mucus Rare H (None) /hpf Urine Yeast (Budding) Occasional H (None) /hpf Assessment and Plan Assessment: 1. Weakness/ debility; likely multifactorial; PT/OT consulted 2. UTI; patient has been placement IV Rocephin pending UA/culture and sensitivity 3. ESRD/HD; nephrology on board; patient had a Sunday dialysis schedule 4. Anemia of chronic disease; hemoglobin at baseline; patient receives Aranesp weekly and iron sulfate 325 mg daily 5. Diabetes mellitus type 2; patient takes glipizide; we will hold off on oral hypoglycemic therapy; monitor Accu-Cheks before meals and at bedtime with insulin sliding scale 6. Atrial fibrillation; patient is rate controlled on amiodarone 200 mg daily; continue with anticoagulation therapy 7. Hyperlipidemia; Lipitor 40 mg by mouth daily at bedtime 8. Hyperuricemia/gout; allopurinol 300 mg daily DVT prophylaxis; SCDs CODE STATUS; full code
--- NOTE | 2023-07-28 15:27 | P.PN ---
Subjective Progress Note Date: 07/28/23 78-year-old white male with history of atrial fibrillation, hypertension, hyperlipidemia, diabetes mellitus, chronic renal failure/chronic kidney disease on hemodialysis, chronic diastolic CHF with moderate to severe tricuspid regurgitation, pulmonary hypertension, obstructive sleep apnea, was brought in to the ER with mostly history of weakness and falling easily. Workup completed in ED including blood work reveals WBC of 9.2, hemoglobin of 10.8 and platelet count of 183, sodium 132, potassium level wasn't done due to hemolyzed specimen, BUN/creatinine of 45/1.43 and blood glucose of 176, UA is positive for blood and leukocyte esterase; Patient was admitted for further evaluation of weakness/falls She does currently receiving dialysis; awake and alert; not reporting any complaints -----Patient was on the medical floor, and around 12:30 AM last night, patient had a sudden cardiac arrest. And TRISHA RAYO was called. Patient received 3 A of epinephrine and 1 amp of bicarb, his down time was felt to be about 14 minutes of CPR. In the meantime the patient was intubated, and placed on mechanical ventilation. CT of the brain is pending, neurologic consultation is pending, chest x-ray sh owed mostly mild interstitial edema. Objective - Vital Signs Vital signs: Vital Signs Temp 97.4 F L 07/28/23 08:00 Pulse 60 07/28/23 11:30 Resp 20 07/28/23 11:30 BP 99/65 07/28/23 10:30 Pulse Ox 97 07/28/23 11:30 FiO2 50 07/28/23 11:10 Intake & Output 07/27/23 07/28/23 07/28/23 18:59 06:59 18:59 Intake Total 718.929 685.526 Output Total 0 Balance 718.929 685.526 Weight 116.891 kg 122.8 kg 122.8 kg Intake: IV 620 430 Calcium Gluconate in NaCl 100 1 gm In Saline 1 100ml. bag @ 100 mls/hr IVPB ONCE ONE Rx#:[id number] Sodium Chloride 0.9% 1, 520 330 000 ml @ 50 mls/hr IV . Q20H [facility] Rx#:[id number] cefTRIAXone 1 gm In 100 Sodium Chloride 0.9% 50 ml @ 100 mls/hr IVPB Q24HR [facility] Rx#:[id number] Intake, IV Titration 98.929 255.526 Amount Norepinephrine 4 mg In 33.996 174.577 Sodium Chloride 0.9% 250 ml @ 0.03 MCG/KG/MIN 13. 361 mls/hr IV .Q19H1M [facility] Rx#:[id number] propofoL 1,000 mg In 64.933 80.949 Empty Bag 1 bag @ 15 MCG/ KG/MIN 10.52 mls/hr IV . Q9H31M [facility] Rx#:[id number] Output: Urine 0 Other: Voiding Method Diaper # Voids 0 0 ABP, PAP, CO, CI - Last Documented Arterial Blood Pressure 97/55 - Exam General appearance: Patient is currently intubated and mechanically; sedated Head exam: Present: atraumatic, normocephalic, normal inspection Eye exam: Present: normal appearance, PERRL, EOMI. Absent: scleral icterus, conjunctival injection, periorbital swelling ENT exam: Present: normal exam, mucous membranes moist Neck exam: Present: normal inspection. Absent: tenderness, meningismus, lymphadenopathy Respiratory exam: Present: normal lung sounds bilaterally. Absent: respiratory distress, wheezes, rales, rhonchi, stridor Cardiovascular Exam: Present: regular rate, normal rhythm, normal heart sounds. Absent: systolic murmur, diastolic murmur, rubs, gallop, clicks GI/Abdominal exam: Present: soft, normal bowel sounds. Absent: distended, tenderness, guarding, rebound, rigid Extremities exam: Present: normal inspection, full ROM, normal capillary refill. Absent: tenderness, pedal edema, joint swelling, calf tenderness Back exam: Present: normal inspection Skin exam: Present: warm, dry, intact, normal color. Absent: rash - Labs CBC & Chem 7: 07/28/23 05:48 07/28/23 05:48 Labs: Abnormal Lab Results - Last 24 Hours (Table) 07/27/23 07/27/23 07/27/23 Range/Units 12:58 17:22 20:44 WBC (3.8-10.6) k/uL RBC (4.30-5.90) m/uL Hgb (13.0-17.5) gm/dL Hct (39.0-53.0) % MCV (80.0-100.0) fL MCHC (31.0-37.0) g/dL RDW (11.5-15.5) % Immature Gran # (0.00-0.04) X 10*3/uL Neutrophils # (1.80-7.70) X 10*3/uL Lymphocytes # (0.90-5.00) X 10*3/uL Monocytes # (0.20-1.00) X 10*3/uL Eosinophils # (0.04-0.35) X 10*3/uL NRBC/100 WBC Diff (0.00-0.01) X 10*3/uL Macrocytosis ABG pH (7.35-7.45) ABG pCO2 (35-45) mmHg ABG pO2 (83-108) mmHg ABG HCO3 (21-25) mmol/L ABG Total CO2 (19-24) mmol/L ABG O2 Saturation (94-97) % Sodium (137-145) mmol/L Potassium (3.5-5.1) mmol/L Chloride (98-107) mmol/L Carbon Dioxide (22-30) mmol/L Anion Gap (4.00-12.00) mmol/L BUN (9-20) mg/dL Creatinine (0.66-1.25) mg/dL Est GFR (CKD-EPI) (>=60) BUN/Creatinine Ratio (12.00-20.00) Ratio Glucose (74-99) mg/dL POC Glucose (mg/dL) 122 H 173 H 173 H (70-110) mg/dL Calcium (8.4-10.2) mg/dL Alkaline Phosphatase (38-126) U/L Troponin I (0.000-0.034) ng/mL Albumin (3.5-5.0) g/dL Albumin/Globulin Ratio (1.60-3.17) Ratio 07/28/23 07/28/23 07/28/23 Range/Units 00:38 00:55 01:09 WBC (3.8-10.6) k/uL RBC (4.30-5.90) m/uL Hgb (13.0-17.5) gm/dL Hct (39.0-53.0) % MCV (80.0-100.0) fL MCHC (31.0-37.0) g/dL RDW (11.5-15.5) % Immature Gran # (0.00-0.04) X 10*3/uL Neutrophils # (1.80-7.70) X 10*3/uL Lymphocytes # (0.90-5.00) X 10*3/uL Monocytes # (0.20-1.00) X 10*3/uL Eosinophils # (0.04-0.35) X 10*3/uL NRBC/100 WBC Diff (0.00-0.01) X 10*3/uL Macrocytosis ABG pH 7.23 L (7.35-7.45) ABG pCO2 49 H (35-45) mmHg ABG pO2 74 L (83-108) mmHg ABG HCO3 (21-25) mmol/L ABG Total CO2 (19-24) mmol/L ABG O2 Saturation 89.7 L (94-97) % Sodium (137-145) mmol/L Potassium (3.5-5.1) mmol/L Chloride (98-107) mmol/L Carbon Dioxide (22-30) mmol/L Anion Gap (4.00-12.00) mmol/L BUN (9-20) mg/dL Creatinine (0.66-1.25) mg/dL Est GFR (CKD-EPI) (>=60) BUN/Creatinine Ratio (12.00-20.00) Ratio Glucose (74-99) mg/dL POC Glucose (mg/dL) 202 H 211 H (70-110) mg/dL Calcium (8.4-10.2) mg/dL Alkaline Phosphatase (38-126) U/L Troponin I (0.000-0.034) ng/mL Albumin (3.5-5.0) g/dL Albumin/Globulin Ratio (1.60-3.17) Ratio 07/28/23 07/28/23 07/28/23 Range/Units 01:20 01:20 05:48 WBC 11.6 H (3.8-10.6) k/uL RBC 3.16 L (4.30-5.90) m/uL Hgb 10.1 L (13.0-17.5) gm/dL Hct 34.7 L (39.0-53.0) % MCV 109.9 H (80.0-100.0) fL MCHC 29.1 L (31.0-37.0) g/dL RDW 20.8 H (11.5-15.5) % Immature Gran # (0.00-0.04) X 10*3/uL Neutrophils # (1.80-7.70) X 10*3/uL Lymphocytes # (0.90-5.00) X 10*3/uL Monocytes # (0.20-1.00) X 10*3/uL Eosinophils # (0.04-0.35) X 10*3/uL NRBC/100 WBC Diff (0.00-0.01) X 10*3/uL Macrocytosis Marked A ABG pH (7.35-7.45) ABG pCO2 (35-45) mmHg ABG pO2 (83-108) mmHg ABG HCO3 (21-25) mmol/L ABG Total CO2 (19-24) mmol/L ABG O2 Saturation (94-97) % Sodium 133 L 134 L (137-145) mmol/L Potassium 5.9 H 5.9 H (3.5-5.1) mmol/L Chloride 95 L (98-107) mmol/L Carbon Dioxide 20 L (22-30) mmol/L Anion Gap 15.80 H (4.00-12.00) mmol/L BUN 29 H 29.3 H (9-20) mg/dL Creatinine 3.10 H 3.4 H (0.66-1.25) mg/dL Est GFR (CKD-EPI) 18 L (>=60) BUN/Creatinine Ratio 8.62 L (12.00-20.00) Ratio Glucose 202 H 177 H (74-99) mg/dL POC Glucose (mg/dL) (70-110) mg/dL Calcium 8.1 L (8.4-10.2) mg/dL Alkaline Phosphatase 182 H 155 H (38-126) U/L Troponin I (0.000-0.034) ng/mL Albumin 3.4 L 3.4 L (3.5-5.0) g/dL Albumin/Globulin Ratio 1.13 L (1.60-3.17) Ratio 07/28/23 07/28/23 07/28/23 Range/Units 05:48 06:12 07:06 WBC 10.22 H (3.8-10.6) k/uL RBC 3.18 L (4.30-5.90) m/uL Hgb 10.0 L (13.0-17.5) gm/dL Hct 32.5 L (39.0-53.0) % MCV 102.2 H (80.0-100.0) fL MCHC 30.8 L (31.0-37.0) g/dL RDW 20.5 H (11.5-15.5) % Immature Gran # 0.15 H (0.00-0.04) X 10*3/uL Neutrophils # 7.92 H (1.80-7.70) X 10*3/uL Lymphocytes # 0.89 L (0.90-5.00) X 10*3/uL Monocytes # 1.22 H (0.20-1.00) X 10*3/uL Eosinophils # 0.01 L (0.04-0.35) X 10*3/uL NRBC/100 WBC Diff 0.06 H (0.00-0.01) X 10*3/uL Macrocytosis ABG pH 7.48 H (7.35-7.45) ABG pCO2 (35-45) mmHg ABG pO2 112 H (83-108) mmHg ABG HCO3 26 H (21-25) mmol/L ABG Total CO2 27 H (19-24) mmol/L ABG O2 Saturation 98.1 H (94-97) % Sodium (137-145) mmol/L Potassium (3.5-5.1) mmol/L Chloride (98-107) mmol/L Carbon Dioxide (22-30) mmol/L Anion Gap (4.00-12.00) mmol/L BUN (9-20) mg/dL Creatinine (0.66-1.25) mg/dL Est GFR (CKD-EPI) (>=60) BUN/Creatinine Ratio (12.00-20.00) Ratio Glucose (74-99) mg/dL POC Glucose (mg/dL) 184 H (70-110) mg/dL Calcium (8.4-10.2) mg/dL Alkaline Phosphatase (38-126) U/L Troponin I (0.000-0.034) ng/mL Albumin (3.5-5.0) g/dL Albumin/Globulin Ratio (1.60-3.17) Ratio 07/28/23 Range/Units 07:54 WBC (3.8-10.6) k/uL RBC (4.30-5.90) m/uL Hgb (13.0-17.5) gm/dL Hct (39.0-53.0) % MCV (80.0-100.0) fL MCHC (31.0-37.0) g/dL RDW (11.5-15.5) % Immature Gran # (0.00-0.04) X 10*3/uL Neutrophils # (1.80-7.70) X 10*3/uL Lymphocytes # (0.90-5.00) X 10*3/uL Monocytes # (0.20-1.00) X 10*3/uL Eosinophils # (0.04-0.35) X 10*3/uL NRBC/100 WBC Diff (0.00-0.01) X 10*3/uL Macrocytosis ABG pH (7.35-7.45) ABG pCO2 (35-45) mmHg ABG pO2 (83-108) mmHg ABG HCO3 (21-25) mmol/L ABG Total CO2 (19-24) mmol/L ABG O2 Saturation (94-97) % Sodium (137-145) mmol/L Potassium (3.5-5.1) mmol/L Chloride (98-107) mmol/L Carbon Dioxide (22-30) mmol/L Anion Gap (4.00-12.00) mmol/L BUN (9-20) mg/dL Creatinine (0.66-1.25) mg/dL Est GFR (CKD-EPI) (>=60) BUN/Creatinine Ratio (12.00-20.00) Ratio Glucose (74-99) mg/dL POC Glucose (mg/dL) (70-110) mg/dL Calcium (8.4-10.2) mg/dL Alkaline Phosphatase (38-126) U/L Troponin I 0.063 H* (0.000-0.034) ng/mL Albumin (3.5-5.0) g/dL Albumin/Globulin Ratio (1.60-3.17) Ratio Assessment and Plan Assessment: 1. Weakness/ debility; likely multifactorial; PT/OT consulted 2. UTI; patient has been placement IV Rocephin pending UA/culture and sensitivity 3. ESRD/HD; nephrology on board; patient had a Sunday dialysis schedule 4. Anemia of chronic disease; hemoglobin at baseline; patient receives Aranesp weekly and iron sulfate 325 mg daily 5. Diabetes mellitus type 2; patient takes glipizide; we will hold off on oral hypoglycemic therapy; monitor Accu-Cheks before meals and at bedtime with insulin sliding scale 6. Atrial fibrillation; patient is rate controlled on amiodarone 200 mg daily; continue with anticoagulation therapy 7. Hyperlipidemia; Lipitor 40 mg by mouth daily at bedtime 8. Hyperuricemia/gout; allopurinol 300 mg daily DVT prophylaxis; SCDs CODE STATUS; full code
[2023-07-28 16:04] LABS: Potassium 5.6 mmol/L (3.5-5.1)
[2023-07-28 18:03] LABS: Glucose,Whole Blood 110 mg/dL (70-110)
--- NOTE | 2023-07-28 18:53 | OP ---
OPERATIVE REPORT DATE OF SERVICE : PROCEDURE: Placement of left brachial arterial line. PREOPERATIVE DIAGNOSIS: Acute cardiac arrest. POSTOPERATIVE DIAGNOSIS: Acute cardiac arrest. ANESTHESIA USED: None deployed. This procedure was done on emergent basis. INDICATION: To monitor the blood pressure, the patient is requiring pressors for low blood pressure. DESCRIPTION OF PROCEDURE: The patient was placed in a supine position, the left brachial region was prepared in a sterile fashion. Drapes were applied. The left brachial artery was palpated, cannulated, and a guidewire was placed. A Cook's catheter was inserted over the guidewire, and the guidewire was removed. Good blood flow, good waveform, no complications. Line was secured using 3.0 silk sutures. MMODL / IJN: [id number] /
[2023-07-28 18:54] LABS: ALT 31 U/L (4-49); AST 41 U/L (17-59); African American GFR (CKD) 19 (>60 ml/min/1.73 sqM); Albumin 3.1 g/dL (3.5-5.0); Alkaline Phosphatase 139 U/L (38-126); Anion Gap 12 mmol/L; Blood Urea Nitrogen 35 mg/dL (9-20); Calcium 8.7 mg/dL (8.4-10.2); Carbon Dioxide 24 mmol/L (22-30); Chloride 98 mmol/L (98-107); Glucose 114 mg/dL (74-99); Non-African American GFR(CKD) 17 (>60 ml/min/1.73 sqM); Sodium 134 mmol/L (137-145); Total Bilirubin 0.6 mg/dL (0.2-1.3); Total Protein 6.4 g/dL (6.3-8.2)
--- NOTE | 2023-07-28 18:56 | OP ---
OPERATIVE REPORT DATE OF SERVICE : OPERATIVE REPORT: Placement of a right femoral triple-lumen catheter. PREOPERATIVE DIAGNOSIS: Cardiac arrest. POSTOPERATIVE DIAGNOSIS: Cardiac arrest. ANESTHESIA USED: 2 mL of 1% lidocaine. PROCEDURE DESCRIPTION: The patient was placed in a supine position, the right groin was prepared in a sterile fashion. Drapes were applied. The area was locally anesthetized with lidocaine. Then, the right femoral vein was easily cannulated, and a guidewire was placed. A triple-lumen catheter was inserted over the guidewire, and the guidewire was removed. Good blood flow noted in the 3 different ports of the triple-lumen catheter. The line was secured using 3.0 silk sutures and sterile dressing was applied. Again, no complications, this was done on emergent basis for adequate venous access. MMODL / IJN: [id number] /
[2023-07-28 19:56] LABS: Anisocytosis Moderate; HCT 31.8 % (39.0-53.0); HGB 9.9 gm/dL (13.0-17.5); Hypochromasia Marked; MCHC 31.1 g/dL (31.0-37.0); MCV 106.2 fL (80.0-100.0); Mean Platelet Volume 8.8; Platelet Count 168 k/uL (150-450); Poikilocytosis Slight; RBC 2.99 m/uL (4.30-5.90); RDW 20.5 % (11.5-15.5); WBC 10.3 k/uL (3.8-10.6)
[2023-07-28 20:19] LABS: Macrocytosis Marked
[2023-07-28] MEDS: ATORVASTATIN 10 MG TAB PO SCH (21:19)
[2023-07-29 00:17] LABS: Glucose,Whole Blood 134 mg/dL (70-110)
[2023-07-29] MEDS: INSULIN ASPART (NovoLOG) 100 UNIT/ML VIAL SQ SCH ×4 (02:25→16:44)
[2023-07-29 04:48] LABS: Anisocytosis Moderate; Basophils % (A) 0 %; Eosinophils # (A) 0.1 k/uL (0-0.7); Eosinophils % (A) 1 %; HCT 32.7 % (39.0-53.0); HGB 10.1 gm/dL (13.0-17.5); Hypochromasia Marked; Lymphocytes # (A) 1.5 k/uL (1.0-4.8); Lymphocytes % (A) 17 %; MCH 32.5 pg (25.0-35.0); MCHC 30.9 g/dL (31.0-37.0); MCV 105.1 fL (80.0-100.0); Mean Platelet Volume 8.9; Monocytes # (A) 0.8 k/uL (0-1.0); Monocytes % (A) 9 %; Neutrophils # (A) 6.3 k/uL (1.3-7.7); Neutrophils % (A) 71 %; Platelet Count 185 k/uL (150-450); Poikilocytosis Slight; RBC 3.11 m/uL (4.30-5.90); RDW 20.2 % (11.5-15.5)
[2023-07-29 05:00] LABS: African American GFR (CKD) 23 (>60 ml/min/1.73 sqM); Anion Gap 14 mmol/L; Blood Urea Nitrogen 27 mg/dL (9-20); Calcium 8.6 mg/dL (8.4-10.2); Carbon Dioxide 21 mmol/L (22-30); Chloride 98 mmol/L (98-107); Glucose 131 mg/dL (74-99); Non-African American GFR(CKD) 20 (>60 ml/min/1.73 sqM); Potassium 4.5 mmol/L (3.5-5.1); Sodium 133 mmol/L (137-145)
[2023-07-29] MEDS: NOREPINEPHRINE 4 MG in SODIUM CHLORIDE 0.9% 250 ML IV SCH ×4 (05:03→21:52)
[2023-07-29 05:07] LABS: ABG Base Excess 0.8 mmol/L; ABG HCO3 25 mmol/L (21-25); ABG PCO2 35 mmHg (35-45); ABG PH 7.46 (7.35-7.45); ABG PO2 84 mmHg (83-108); ABG TCO2 26 mmol/L (19-24); Allen Test Performed? Yes
[2023-07-29 05:12] LABS: Macrocytosis Marked
[2023-07-29 05:14] LABS: Glucose,Whole Blood 144 mg/dL (70-110)
[2023-07-29 05:14] LABS: Glucose,Whole Blood 136 mg/dL (70-110)
--- NOTE | 2023-07-29 07:06 | P.PN ---
Subjective Progress Note Date: 07/29/23 78-year-old white male with history of atrial fibrillation, hypertension, hyperlipidemia, diabetes mellitus, chronic renal failure/chronic kidney disease on hemodialysis, chronic diastolic CHF with moderate to severe tricuspid regurgitation, pulmonary hypertension, obstructive sleep apnea, was brought in to the ER with mostly history of weakness and falling easily. Workup completed in ED including blood work reveals WBC of 9.2, hemoglobin of 10.8 and platelet count of 183, sodium 132, potassium level wasn't done due to hemolyzed specimen, BUN/creatinine of 45/1.43 and blood glucose of 176, UA is positive for blood and leukocyte esterase; Patient was admitted for further evaluation of weakness/falls She does currently receiving dialysis; awake and alert; not reporting any complaints -----Patient was on the medical floor, and around 12:30 AM last night, patient had a sudden cardiac arrest. And TRISHA RAYO was called. Patient received 3 A of epinephrine and 1 amp of bicarb, his down time was felt to be about 14 minutes of CPR. In the meantime the patient was intubated, and placed on mechanical ventilation. CT of the brain is pending, neurologic consultation is pending, chest x-ray sh owed mostly mild interstitial edema. 07/29/2023 Patient is seen and evaluated in ICU; remains intubated Vital signs blood pressure of 102/60, pulse 74 O2 saturation 97% -- Patient had cardiopulmonary arrest with PE and lasting about 14 minutes; concern about anoxic encephalopathy versus brain injury -- Nephrology on board; CT of the head is ordered with stat EEG -- Intensive care service on board for vent management; remains on hemodialysis -- Antibiotics in form of ceftriaxone -- Patient has been placed on nutritional support Objective - Vital Signs Vital signs: Vital Signs Temp 98.1 F 07/29/23 00:00 Pulse 60 07/29/23 00:45 Resp 22 07/29/23 00:45 BP 104/62 07/29/23 00:45 Pulse Ox 99 07/29/23 00:45 FiO2 50 07/29/23 00:41 Intake & Output 07/28/23 07/28/23 07/29/23 06:59 18:59 06:59 Intake Total 863.618 9717.387 1434.374 Output Total 0 900 Balance 452.200 2223.387 534.374 Weight 122.8 kg 123.559 kg Intake: IV 620 780 250 Calcium Gluconate in NaCl 100 1 gm In Saline 1 100ml. bag @ 100 mls/hr IVPB ONCE ONE Rx#:[id number] Sodium Chloride 0.9% 1, 520 680 250 000 ml @ 50 mls/hr IV . Q20H [facility] Rx#:[id number] cefTRIAXone 1 gm In 100 Sodium Chloride 0.9% 50 ml @ 100 mls/hr IVPB Q24HR [facility] Rx#:[id number] Intake, IV Titration 98.929 485.387 304.374 Amount Norepinephrine 4 mg In 33.996 315.308 233.363 Sodium Chloride 0.9% 250 ml @ 0.03 MCG/KG/MIN 13. 361 mls/hr IV .Q19H1M [facility] Rx#:[id number] propofoL 1,000 mg In 64.933 170.079 71.011 Empty Bag 1 bag @ 15 MCG/ KG/MIN 10.52 mls/hr IV . Q9H31M [facility] Rx#:[id number] Tube Feeding 60 50 Hemodialysis 800 Other 30 30 Output: Urine 0 0 Hemodialysis 900 Other: # Voids 0 ABP, PAP, CO, CI - Last Documented Arterial Blood Pressure 96/54 - Exam General appearance: Patient is currently intubated and mechanically; sedated Head exam: Present: atraumatic, normocephalic, normal inspection Eye exam: Present: normal appearance, PERRL, EOMI. Absent: scleral icterus, conjunctival injection, periorbital swelling ENT exam: Present: normal exam, mucous membranes moist Neck exam: Present: normal inspection. Absent: tenderness, meningismus, lymphadenopathy Respiratory exam: Present: normal lung sounds bilaterally. Absent: respiratory distress, wheezes, rales, rhonchi, stridor Cardiovascular Exam: Present: regular rate, normal rhythm, normal heart sounds. Absent: systolic murmur, diastolic murmur, rubs, gallop, clicks GI/Abdominal exam: Present: soft, normal bowel sounds. Absent: distended, tenderness, guarding, rebound, rigid Extremities exam: Present: normal inspection, full ROM, normal capillary refill. Absent: tenderness, pedal edema, joint swelling, calf tenderness Back exam: Present: normal inspection Skin exam: Present: warm, dry, intact, normal color. Absent: rash - Labs CBC & Chem 7: 07/28/23 19:38 07/28/23 15:21 Labs: Abnormal Lab Results - Last 24 Hours (Table) 07/28/23 07/28/23 07/28/23 Range/Units 01:09 01:20 05:48 WBC (4.50-10.00) X 10*3/uL RBC (4.40-5.60) X 10*6/uL Hgb (13.0-17.0) g/dL Hct (39.6-50.0) % MCV (80.0-97.0) FL MCHC (32.0-37.0) g/dL RDW (11.5-14.5) % Immature Gran # (0.00-0.04) X 10*3/uL Neutrophils # (1.80-7.70) X 10*3/uL Lymphocytes # (0.90-5.00) X 10*3/uL Monocytes # (0.20-1.00) X 10*3/uL Eosinophils # (0.04-0.35) X 10*3/uL NRBC/100 WBC Diff (0.00-0.01) X 10*3/uL Macrocytosis ABG pH 7.23 L (7.35-7.45) ABG pCO2 49 H (35-45) mmHg ABG pO2 74 L (83-108) mmHg ABG HCO3 (21-25) mmol/L ABG Total CO2 (19-24) mmol/L ABG O2 Saturation 89.7 L (94-97) % Sodium 133 L 134 L (137-145) mmol/L Potassium 5.9 H 5.9 H (3.5-5.1) mmol/L Chloride 95 L (98-107) mmol/L Carbon Dioxide 20 L (22-30) mmol/L Anion Gap 15.80 H (4.00-12.00) mmol/L BUN 29 H 29.3 H (9-20) mg/dL Creatinine 3.10 H 3.4 H (0.66-1.25) mg/dL Est GFR (CKD-EPI) 18 L (>=60) BUN/Creatinine Ratio 8.62 L (12.00-20.00) Ratio Glucose 202 H 177 H (74-99) mg/dL POC Glucose (mg/dL) (70-110) mg/dL Calcium 8.1 L (8.4-10.2) mg/dL Alkaline Phosphatase 182 H 155 H (38-126) U/L Troponin I (0.000-0.034) ng/mL Albumin 3.4 L 3.4 L (3.5-5.0) g/dL Albumin/Globulin Ratio 1.13 L (1.60-3.17) Ratio 07/28/23 07/28/23 07/28/23 Range/Units 05:48 06:12 07:06 WBC 10.22 H (4.50-10.00) X 10*3/uL RBC 3.18 L (4.40-5.60) X 10*6/uL Hgb 10.0 L (13.0-17.0) g/dL Hct 32.5 L (39.6-50.0) % MCV 102.2 H (80.0-97.0) FL MCHC 30.8 L (32.0-37.0) g/dL RDW 20.5 H (11.5-14.5) % Immature Gran # 0.15 H (0.00-0.04) X 10*3/uL Neutrophils # 7.92 H (1.80-7.70) X 10*3/uL Lymphocytes # 0.89 L (0.90-5.00) X 10*3/uL Monocytes # 1.22 H (0.20-1.00) X 10*3/uL Eosinophils # 0.01 L (0.04-0.35) X 10*3/uL NRBC/100 WBC Diff 0.06 H (0.00-0.01) X 10*3/uL Macrocytosis ABG pH 7.48 H (7.35-7.45) ABG pCO2 (35-45) mmHg ABG pO2 112 H (83-108) mmHg ABG HCO3 26 H (21-25) mmol/L ABG Total CO2 27 H (19-24) mmol/L ABG O2 Saturation 98.1 H (94-97) % Sodium (137-145) mmol/L Potassium (3.5-5.1) mmol/L Chloride (98-107) mmol/L Carbon Dioxide (22-30) mmol/L Anion Gap (4.00-12.00) mmol/L BUN (9-20) mg/dL Creatinine (0.66-1.25) mg/dL Est GFR (CKD-EPI) (>=60) BUN/Creatinine Ratio (12.00-20.00) Ratio Glucose (74-99) mg/dL POC Glucose (mg/dL) 184 H (70-110) mg/dL Calcium (8.4-10.2) mg/dL Alkaline Phosphatase (38-126) U/L Troponin I (0.000-0.034) ng/mL Albumin (3.5-5.0) g/dL Albumin/Globulin Ratio (1.60-3.17) Ratio 07/28/23 07/28/23 07/28/23 Range/Units 07:54 12:10 15:21 WBC (4.50-10.00) X 10*3/uL RBC (4.40-5.60) X 10*6/uL Hgb (13.0-17.0) g/dL Hct (39.6-50.0) % MCV (80.0-97.0) FL MCHC (32.0-37.0) g/dL RDW (11.5-14.5) % Immature Gran # (0.00-0.04) X 10*3/uL Neutrophils # (1.80-7.70) X 10*3/uL Lymphocytes # (0.90-5.00) X 10*3/uL Monocytes # (0.20-1.00) X 10*3/uL Eosinophils # (0.04-0.35) X 10*3/uL NRBC/100 WBC Diff (0.00-0.01) X 10*3/uL Macrocytosis ABG pH (7.35-7.45) ABG pCO2 (35-45) mmHg ABG pO2 (83-108) mmHg ABG HCO3 (21-25) mmol/L ABG Total CO2 (19-24) mmol/L ABG O2 Saturation (94-97) % Sodium 134 L (137-145) mmol/L Potassium 5.6 H (3.5-5.1) mmol/L Chloride (98-107) mmol/L Carbon Dioxide (22-30) mmol/L Anion Gap (4.00-12.00) mmol/L BUN 35 H (9-20) mg/dL Creatinine 3.36 H (0.66-1.25) mg/dL Est GFR (CKD-EPI) (>=60) BUN/Creatinine Ratio (12.00-20.00) Ratio Glucose 114 H (74-99) mg/dL POC Glucose (mg/dL) 227 H (70-110) mg/dL Calcium (8.4-10.2) mg/dL Alkaline Phosphatase 139 H (38-126) U/L Troponin I 0.063 H* (0.000-0.034) ng/mL Albumin 3.1 L (3.5-5.0) g/dL Albumin/Globulin Ratio (1.60-3.17) Ratio 07/28/23 07/29/23 Range/Units 19:38 00:16 WBC (4.50-10.00) X 10*3/uL RBC 2.99 L (4.40-5.60) X 10*6/uL Hgb 9.9 L (13.0-17.0) g/dL Hct 31.8 L (39.6-50.0) % MCV 106.2 H (80.0-97.0) FL MCHC (32.0-37.0) g/dL RDW 20.5 H (11.5-14.5) % Immature Gran # (0.00-0.04) X 10*3/uL Neutrophils # (1.80-7.70) X 10*3/uL Lymphocytes # (0.90-5.00) X 10*3/uL Monocytes # (0.20-1.00) X 10*3/uL Eosinophils # (0.04-0.35) X 10*3/uL NRBC/100 WBC Diff (0.00-0.01) X 10*3/uL Macrocytosis Marked A ABG pH (7.35-7.45) ABG pCO2 (35-45) mmHg ABG pO2 (83-108) mmHg ABG HCO3 (21-25) mmol/L ABG Total CO2 (19-24) mmol/L ABG O2 Saturation (94-97) % Sodium (137-145) mmol/L Potassium (3.5-5.1) mmol/L Chloride (98-107) mmol/L Carbon Dioxide (22-30) mmol/L Anion Gap (4.00-12.00) mmol/L BUN (9-20) mg/dL Creatinine (0.66-1.25) mg/dL Est GFR (CKD-EPI) (>=60) BUN/Creatinine Ratio (12.00-20.00) Ratio Glucose (74-99) mg/dL POC Glucose (mg/dL) 134 H (70-110) mg/dL Calcium (8.4-10.2) mg/dL Alkaline Phosphatase (38-126) U/L Troponin I (0.000-0.034) ng/mL Albumin (3.5-5.0) g/dL Albumin/Globulin Ratio (1.60-3.17) Ratio Microbiology - Last 24 Hours (Table) 07/28/23 04:41 Gram Stain - Preliminary Sputum Assessment and Plan Assessment: 1. Weakness/ debility; likely multifactorial; PT/OT consulted 2. UTI; patient has been placement IV Rocephin pending UA/culture and sensitivity 3. ESRD/HD; nephrology on board; patient had a Sunday dialysis schedule 4. Anemia of chronic disease; hemoglobin at baseline; patient receives Aranesp weekly and iron sulfate 325 mg daily 5. Diabetes mellitus type 2; patient takes glipizide; we will hold off on oral hypoglycemic therapy; monitor Accu-Cheks before meals and at bedtime with insulin sliding scale 6. Atrial fibrillation; patient is rate controlled on amiodarone 200 mg daily; continue with anticoagulation therapy 7. Hyperlipidemia; Lipitor 40 mg by mouth daily at bedtime 8. Hyperuricemia/gout; allopurinol 300 mg daily DVT prophylaxis; SCDs CODE STATUS; full code
[2023-07-29] MEDS: AMIODARONE 200 MG TAB PO SCH (07:55)
[2023-07-29] MEDS: MULTIVITAMINS, THERA 1 EACH TAB PO SCH (07:55)
[2023-07-29] MEDS: APIXABAN 5 MG TAB PO SCH ×2 (07:55→20:03)
[2023-07-29] MEDS: FERROUS SULFATE 325 MG TAB PO SCH (07:55)
[2023-07-29] MEDS: CHLORHEXIDINE GLUCONATE 15 ML CUP MUCOUS MEM SCH ×2 (07:55→20:03)
[2023-07-29] MEDS: PANTOPRAZOLE 40 MG TABLET PO SCH (07:56)
[2023-07-29] MEDS: FLUDROCORTISONE 0.1 MG TAB PO SCH (07:56)
[2023-07-29] MEDS: allopurinoL 300 MG TAB PO SCH (07:56)
[2023-07-29] MEDS: SUCRALFATE 1 GM TAB PO SCH ×2 (07:56→21:14)
[2023-07-29] MEDS: DOCUSATE 100 MG CAP PO SCH ×2 (07:56→21:16)
[2023-07-29] MEDS: ACETAMINOPHEN TAB 325 MG TAB PO SCH ×2 (07:59→20:03)
--- NOTE | 2023-07-29 09:28 | XR ---
EXAMINATION TYPE: XR chest 1V DATE OF EXAM: 07/29/2023 COMPARISON: 07/28/2023 HISTORY: 78-year-old male mechanical ventilation, ICU follow-up TECHNIQUE: Single frontal view of the chest is obtained. FINDINGS: Right-sided double lumen hemodialysis catheter with tips at the lower SVC. Left anterior chest wall p acemaker generator with right atrial and right ventricular leads. ET tube tip at the level of the med ial clavicular heads. Withdrawn slightly in the interval. NG tube courses below the diaphragm. Heart remains mildly enlarged. Mild hyperinflation. Ongoing blunting of the costophrenic angles. The inters titium appears improved from prior. IMPRESSION: 1. Mild cardiomegaly. Improving pulmonary vascular congestion. 2. Residual trace pleural effusions with adjacent atelectasis and/or consolidation.
--- NOTE | 2023-07-29 10:38 | P.PN ---
Subjective Patient is seen in follow-up for end-stage renal disease. He is maintained on hemodialysis on Sunday schedule. Patient had PEA arrest 07/28/2023. Patient was down for about 13 minutes and received 3 rounds of epinephrine 1 amp of bicarbonate. He is currently intubated. Per nurse, he was on the BiPAP and was found to be unresponsive concerning for respiratory arrest. On Levophed. Potassium level was 5.9 and he did undergo extra hemodialysis treatment yesterday. Potassium this morning is 4.5. Vital signs are stable. On Levophed. General: Resting in bed. HEENT: Intubated. LUNGS: Scattered rhonchi. HEART: Rate and Rhythm are regular. ABDOMEN: Obese. EXTREMITITES: No edema. Chronic changes noted. Objective - Vital Signs Vital signs: Vital Signs Temp 98.2 F 07/29/23 08:00 Pulse 60 07/29/23 08:00 Resp 17 07/29/23 08:00 BP 97/57 07/29/23 08:00 Pulse Ox 91 L 07/29/23 08:00 FiO2 60 07/29/23 09:24 Intake & Output 07/28/23 07/29/23 07/29/23 18:59 06:59 18:59 Intake Total 2625.880 9218.492 341.832 Output Total 0 900 0 Balance 7917.267 1842.492 341.832 Weight 123.559 kg Intake: IV 780 600 100 Sodium Chloride 0.9% 1, 680 600 100 000 ml @ 50 mls/hr IV . Q20H [facility] Rx#:[id number] cefTRIAXone 1 gm In 100 Sodium Chloride 0.9% 50 ml @ 100 mls/hr IVPB Q24HR [facility] Rx#:[id number] Intake, IV Titration 485.387 667.492 201.832 Amount Norepinephrine 4 mg In 315.308 487.363 103.321 Sodium Chloride 0.9% 250 ml @ 0.03 MCG/KG/MIN 13. 361 mls/hr IV .Q19H1M [facility] Rx#:[id number] cefTRIAXone 1 gm In 50 Sodium Chloride 0.9% 50 ml @ 100 mls/hr IVPB Q24HR [facility] Rx#:[id number] propofoL 1,000 mg In 170.079 180.129 48.511 Empty Bag 1 bag @ 15 MCG/ KG/MIN 10.52 mls/hr IV . Q9H31M [facility] Rx#:[id number] Tube Feeding 60 120 40 Hemodialysis 800 Other 30 60 Output: Urine 0 0 0 Hemodialysis 900 ABP, PAP, CO, CI - Last Documented Arterial Blood Pressure 96/54 - Labs CBC & Chem 7: 07/29/23 04:31 07/29/23 04:31 Labs: Abnormal Lab Results - Last 24 Hours (Table) 07/28/23 07/28/23 07/28/23 Range/Units 12:10 15:21 19:38 RBC 2.99 L (4.30-5.90) m/uL Hgb 9.9 L (13.0-17.5) gm/dL Hct 31.8 L (39.0-53.0) % MCV 106.2 H (80.0-100.0) fL MCHC (31.0-37.0) g/dL RDW 20.5 H (11.5-15.5) % Macrocytosis Marked A ABG pH (7.35-7.45) ABG Total CO2 (19-24) mmol/L Sodium 134 L (137-145) mmol/L Potassium 5.6 H (3.5-5.1) mmol/L Carbon Dioxide (22-30) mmol/L BUN 35 H (9-20) mg/dL Creatinine 3.36 H (0.66-1.25) mg/dL Glucose 114 H (74-99) mg/dL POC Glucose (mg/dL) 227 H (70-110) mg/dL Alkaline Phosphatase 139 H (38-126) U/L Albumin 3.1 L (3.5-5.0) g/dL 07/29/23 07/29/23 07/29/23 Range/Units 00:16 04:31 04:31 RBC 3.11 L (4.30-5.90) m/uL Hgb 10.1 L (13.0-17.5) gm/dL Hct 32.7 L (39.0-53.0) % MCV 105.1 H (80.0-100.0) fL MCHC 30.9 L (31.0-37.0) g/dL RDW 20.2 H (11.5-15.5) % Macrocytosis Marked A ABG pH (7.35-7.45) ABG Total CO2 (19-24) mmol/L Sodium 133 L (137-145) mmol/L Potassium (3.5-5.1) mmol/L Carbon Dioxide 21 L (22-30) mmol/L BUN 27 H (9-20) mg/dL Creatinine 2.88 H (0.66-1.25) mg/dL Glucose 131 H (74-99) mg/dL POC Glucose (mg/dL) 134 H (70-110) mg/dL Alkaline Phosphatase (38-126) U/L Albumin (3.5-5.0) g/dL 07/29/23 07/29/23 07/29/23 Range/Units 05:03 05:12 05:13 RBC (4.30-5.90) m/uL Hgb (13.0-17.5) gm/dL Hct (39.0-53.0) % MCV (80.0-100.0) fL MCHC (31.0-37.0) g/dL RDW (11.5-15.5) % Macrocytosis ABG pH 7.46 H (7.35-7.45) ABG Total CO2 26 H (19-24) mmol/L Sodium (137-145) mmol/L Potassium (3.5-5.1) mmol/L Carbon Dioxide (22-30) mmol/L BUN (9-20) mg/dL Creatinine (0.66-1.25) mg/dL Glucose (74-99) mg/dL POC Glucose (mg/dL) 144 H 136 H (70-110) mg/dL Alkaline Phosphatase (38-126) U/L Albumin (3.5-5.0) g/dL Microbiology - Last 24 Hours (Table) 07/28/23 04:41 Gram Stain - Preliminary Sputum Assessment and Plan Plan: Assessment: 1. End-stage renal disease maintained on hemodialysis on Sunday schedule via permacath. 2. Status post fall. No fractures noted. 3. Diabetes mellitus. 4. Metabolic acidosis secondary to chronic kidney disease. Improved. 5. Chronic diastolic CHF with moderate to severe tricuspid regurgitation and pulmonary hypertension. 6. Hyperkalemia secondary to CKD, improved post HD. Patient underwent hemodialysis July 27 and July 28, 2023. 7. Status post PEA arrest 07/28/2023 concerning for respiratory arrest while on BiPAP. 8. Anemia of chronic kidney disease maintained on Aranesp. Plan: Hemodialysis tomorrow. Wean Levoped. Add midodrine. Hold for systolic blood pressure greater than 115. Phosphorus level 4.9 dated 07/28/2023. Repeat labs in the morning.
--- NOTE | 2023-07-29 11:52 | OP ---
OPERATIVE REPORT DATE OF SERVICE : PROCEDURE PERFORMED: Placement of a right radial arterial line. PREOPERATIVE DIAGNOSIS: Cardiac arrest. POSTOPERATIVE DIAGNOSIS: Cardiac arrest. INDICATION FOR THE PROCEDURE: Hypotension, requiring pressors, needed for hemodynamic monitoring. DESCRIPTION OF PROCEDURE: The patient was placed in the supine position, the right wrist was prepared in a sterile fashion and drapes were applied. The right radial artery was palpated, easily cannulated, and a guidewire was placed. A Cook catheter was inserted over the guidewire, and the guidewire was removed. Good blood flow, good waveform, no complications. Line was secured using 3-0 silk sutures. MMODL / IJN: [id number] /
[2023-07-29 11:53] LABS: Glucose,Whole Blood 149 mg/dL (70-110)
[2023-07-29] MEDS: MIDODRINE 5 MG TAB PO SCH ×2 (11:55→16:41)
--- NOTE | 2023-07-29 12:10 | P.PN ---
Subjective Progress Note Date: 07/29/23 Principal diagnosis: Cardiac arrest This is a 78-year-old white male with history of multiple medical problems including chronic renal failure/chronic kidney disease on hemodialysis, yesterday the patient was brought into the ER with mostly you days history of weakness and falling easily. Patient was admitted for further evaluation of his weakness, and he was seen only by nephrology for his chronic kidney disease and he was initiated on hemodialysis which is mostly given Wednesdays and Fridays. Patient is also known to have history of chronic diastolic congestive heart failure with moderate to severe tricuspid regurgitation and pulmonary hypertension. In addition to this the patient has obstructive sleep apnea, and he is maintained on AVAPS at home. Patient was on the medical floor, and around 12:30 AM last night, patient had a sudden cardiac arrest. And TRISHA RAYO was called. Patient received 3 A of epinephrine and 1 amp of bicarb, his down time was felt to be about 14 minutes of CPR. In the meantime the patient was intubated, and placed on mechanical ventilation. Overnight the patient remains on mechanical ventilation, and I saw this morning. He is now on assist control rate of 2010 volume 500 FiO2 was 60% and PEEP of 8. ABG showed a pO2 of 112 pCO2 35 pH of 7.48. Patient is unresponsive to any stimuli except he seems to withdraw to painful stimuli only. And he is on norepinephrine at 0.06 mg/kg/m propofol 25 mg/kg/m she is also on IV fluid at 1 50 mL per hour I cut it down to [address] of the brain is pending, neurologic consultation is pending, chest x-ray showed mostly mild interstitial edema. Patient may or may not get dialysis today, this will be decided upon by nephrology on the case. After evaluating the patient, I recommended central venous access, and an arterial line was placed and the patient. Labs today WBC count is 10.2 hemoglobin 10.0, basic metabolic profile is normal except for potassium of 5.9 BUN is 29 creatinine 3.4, troponin is 0.063, cardiac consultation was initiated today, neurological consultation was also initiated, and I'm recommending that we send the patient down for CT of the brain without contrast today. Education is at present include amiodarone 200 mg daily eliquis 12 mg twice a day Lipitor, ceftriaxone, Aranesp, Dilaudid, Florinef, sliding scale insulin, midodrine, and DuoNeb updrafts 4 times a day and when necessary patient is also on Protonix, he was also placed on lokelma by nephrology for his hyperkalemia. Reevaluated 07/29/23, patient remains in the ICU, intubated and mechanically ventilated. On assist control rate of 20-2500 FiO2 50% PEEP of 8, ABG showed a pO2 of 84 pCO2 35 pH of 7.46. His FiO2 was increased earlier by respiratory to 60%, however I recommended PEEP up to 10 and cutting down the FiO2 down to 55% otherwise the remaining vent settings remained the same. Patient remains on norepinephrine at 0.08 mcg/kg/m propofol at 25 mg/kg/m vital a PE at 30 mL/m and 0.9 at 50 mL per hour. Patient remains unresponsive, he only withdraws to painful stimuli, CT of the brain yesterday was unremarkable. EEG is pending his left brachial arterial line was lost yesterday, went ahead and placed another arterial line today and the right radial artery. Patient remains on ceftriaxone and eliquis. Today my recommendation is to have sedation interruption and assess mental status again, patient was seen by neurology and recommending EEG. Patient underwent hemodialysis yesterday, no fluid was removed, WBC count today is 9 hemoglobin 10.1 and platelets are 1 85,000. Basic metabolic profile is normal bicarb is 21 BUN is 27 creatinine 2.88. Patient remains on medications as listed including allopurinol, amiodarone, eliquis, atorvastatin, ceftriaxone, propofol, Aranesp, Colace, ferrous sulfate, Florinef, and Dilaudid. Patient is also on Protonix, Zofran as needed, and morphine sulfate as needed as well as midodrine and insulin as per scheduled Objective - Vital Signs Vital signs: Vital Signs Temp 98.2 F 07/29/23 08:00 Pulse 60 07/29/23 10:00 Resp 17 07/29/23 10:00 BP 97/58 07/29/23 10:00 Pulse Ox 94 L 07/29/23 10:00 FiO2 50 07/29/23 11:59 Intake & Output 07/28/23 07/29/23 07/29/23 18:59 06:59 18:59 Intake Total 6777.768 8062.492 609.046 Output Total 0 900 0 Balance 7155.949 1287.492 609.046 Weight 123.559 kg Intake: IV 780 600 300 Sodium Chloride 0.9% 1, 680 600 300 000 ml @ 50 mls/hr IV . Q20H [facility] Rx#:[id number] cefTRIAXone 1 gm In 100 Sodium Chloride 0.9% 50 ml @ 100 mls/hr IVPB Q24HR [facility] Rx#:[id number] Intake, IV Titration 485.387 667.492 269.046 Amount Norepinephrine 4 mg In 315.308 487.363 103.321 Sodium Chloride 0.9% 250 ml @ 0.03 MCG/KG/MIN 13. 361 mls/hr IV .Q19H1M [facility] Rx#:[id number] cefTRIAXone 1 gm In 50 Sodium Chloride 0.9% 50 ml @ 100 mls/hr IVPB Q24HR [facility] Rx#:[id number] propofoL 1,000 mg In 170.079 180.129 115.725 Empty Bag 1 bag @ 15 MCG/ KG/MIN 10.52 mls/hr IV . Q9H31M [facility] Rx#:[id number] Tube Feeding 60 120 40 Hemodialysis 800 Other 30 60 Output: Urine 0 0 0 Hemodialysis 900 ABP, PAP, CO, CI - Last Documented Arterial Blood Pressure 101/60 - Exam Physical Exam: Revealed a 78-year-old white male obese intubated mechanically ventilated unresponsive to stimuli in no distress. Patient withdraws to deep painful stimuli only Head: Atraumatic, normocephalic. HEENT:[Neck is supple.] [No neck masses.] [No thyromegaly.] [No JVD.] Endotracheal tube and orogastric tube are intact. Patient does have a left IJ permanent dialysis catheter Chest: [Fine crackles at the bases, no rhonchi and no wheezes. Symmetrical chest expansion. Cardiac Exam: [Distant S1 and S2, no S3 gallop, 2/6 systolic murmur thought the precordium Abdomen: [Obese, Soft, nontender, no megaly, no rebound, no guarding, normal bowel sounds.] Extremities: [No clubbing, no edema, no cyanosis.] Chronic venous stasis noted bilaterally and brownish discoloration of lower extremities diminished distal pulses Neurological Exam: Unresponsive to any stimuli, patient does withdraw from painful stimuli Psychiatric: Could not be assessed. Skin: No rashes except chronic venous stasis changes noted lower extremities. - Labs CBC & Chem 7: 07/29/23 04:31 07/29/23 04:31 Labs: Abnormal Lab Results - Last 24 Hours (Table) 07/28/23 07/28/23 07/28/23 Range/Units 12:10 15:21 19:38 RBC 2.99 L (4.30-5.90) m/uL Hgb 9.9 L (13.0-17.5) gm/dL Hct 31.8 L (39.0-53.0) % MCV 106.2 H (80.0-100.0) fL MCHC (31.0-37.0) g/dL RDW 20.5 H (11.5-15.5) % Macrocytosis Marked A ABG pH (7.35-7.45) ABG Total CO2 (19-24) mmol/L Sodium 134 L (137-145) mmol/L Potassium 5.6 H (3.5-5.1) mmol/L Carbon Dioxide (22-30) mmol/L BUN 35 H (9-20) mg/dL Creatinine 3.36 H (0.66-1.25) mg/dL Glucose 114 H (74-99) mg/dL POC Glucose (mg/dL) 227 H (70-110) mg/dL Alkaline Phosphatase 139 H (38-126) U/L Albumin 3.1 L (3.5-5.0) g/dL 07/29/23 07/29/23 07/29/23 Range/Units 00:16 04:31 04:31 RBC 3.11 L (4.30-5.90) m/uL Hgb 10.1 L (13.0-17.5) gm/dL Hct 32.7 L (39.0-53.0) % MCV 105.1 H (80.0-100.0) fL MCHC 30.9 L (31.0-37.0) g/dL RDW 20.2 H (11.5-15.5) % Macrocytosis Marked A ABG pH (7.35-7.45) ABG Total CO2 (19-24) mmol/L Sodium 133 L (137-145) mmol/L Potassium (3.5-5.1) mmol/L Carbon Dioxide 21 L (22-30) mmol/L BUN 27 H (9-20) mg/dL Creatinine 2.88 H (0.66-1.25) mg/dL Glucose 131 H (74-99) mg/dL POC Glucose (mg/dL) 134 H (70-110) mg/dL Alkaline Phosphatase (38-126) U/L Albumin (3.5-5.0) g/dL 07/29/23 07/29/23 07/29/23 Range/Units 05:03 05:12 05:13 RBC (4.30-5.90) m/uL Hgb (13.0-17.5) gm/dL Hct (39.0-53.0) % MCV (80.0-100.0) fL MCHC (31.0-37.0) g/dL RDW (11.5-15.5) % Macrocytosis ABG pH 7.46 H (7.35-7.45) ABG Total CO2 26 H (19-24) mmol/L Sodium (137-145) mmol/L Potassium (3.5-5.1) mmol/L Carbon Dioxide (22-30) mmol/L BUN (9-20) mg/dL Creatinine (0.66-1.25) mg/dL Glucose (74-99) mg/dL POC Glucose (mg/dL) 144 H 136 H (70-110) mg/dL Alkaline Phosphatase (38-126) U/L Albumin (3.5-5.0) g/dL 07/29/23 Range/Units 11:52 RBC (4.30-5.90) m/uL Hgb (13.0-17.5) gm/dL Hct (39.0-53.0) % MCV (80.0-100.0) fL MCHC (31.0-37.0) g/dL RDW (11.5-15.5) % Macrocytosis ABG pH (7.35-7.45) ABG Total CO2 (19-24) mmol/L Sodium (137-145) mmol/L Potassium (3.5-5.1) mmol/L Carbon Dioxide (22-30) mmol/L BUN (9-20) mg/dL Creatinine (0.66-1.25) mg/dL Glucose (74-99) mg/dL POC Glucose (mg/dL) 149 H (70-110) mg/dL Alkaline Phosphatase (38-126) U/L Albumin (3.5-5.0) g/dL Microbiology - Last 24 Hours (Table) 07/28/23 04:41 Gram Stain - Preliminary Sputum Assessment and Plan Assessment: Impression: Cardiac arrest requiring CPR and resuscitation for 14 minutes/down time, patient had pulseless electrical activity cardiac arrest Suspect underlying orthostatic hypotension with recurrent falls prior to admission Chronic diastolic congestive heart failure Severe pulmonary hypertension Acute metabolic acidosis secondary to chronic kidney disease Hyperkalemia secondary to chronic kidney disease, patient is on hemodialysis and he is also on lokelil Anemia of chronic disease/chronic kidney disease History of obstructive sleep apnea syndrome History of peritonitis sepsis and septic shock Chronic atrial fibrillation Type 2 diabetes with diabetic nephropathy History of sick sinus syndrome and permanent pacemaker implantation possible anoxic brain injury Recommendation: Continue ventilatory support, PEEP was increased to 10 today. Continue hemodialysis, every other day. Being followed by nephrology Continue pressors/norepinephrine and titrate accordingly patient is today on norepinephrine at 0.06 mcg/kg/m, being titrated down to Continue ceftriaxone and eliquis EEG is pending CT brain is unremarkable, nondiagnostic Start the nutritional support/enteral feeding GI and DVT prophylaxis Patient remains extremely ill and prognosis is guarded Discussed his condition with neurology on the case. We will continue to follow. Critical care time is over 30 minutes not including the time spent on procedures/arterial line placed Time with Patient: Greater than 30
--- NOTE | 2023-07-29 12:34 | P.CRDCN ---
History of Present Illness Consult date: 07/29/23 Reason for Consult (text): Cardiac arrest History of present illness: The patient is a 78-year-old male who follows in the office with Dr. Witt who has multiple complex comorbid conditions. The patient presented to the emergency room with weakness and frequent falls. He was admitted to the medical floor and had sudden cardiac arrest. He had pulseless electrical activity with approximately 14 minutes of CPR prior to ROSC. He was subsequently intubated and transferred to the ICU. The patient currently remains on Levophed drip and is currently undergoing EEG. DIAGNOSTICS: Chest x-ray shows cardiomegaly without acute process No 12-lead EKG performed Computed tomography scan of the brain shows generalized atrophy Lab data: WBC 9.0, hemoglobin 10.1, hematocrit 32.7, platelet 185, sodium 133, potassium 4.5, BUN 27, creatinine 2.88, AST 41, ALT 31, troponin 0.02, 0.06, TSH 7.09 REVIEW OF SYSTEMS: Sedated on ventilator PHYSICAL EXAMINATION: This is a 78-year-old male. Currently sedated on ventilator HEENT: Head is atraumatic, normocephalic. There is no jugular venous distention. No carotid bruit is heard. CHEST EXAMINATION: Lungs are diminished to auscultation. No chest wall tenderness is noted on palpation or with deep breathing. HEART EXAMINATION: Heart regular rate and rhythm. S1, S2 heard. No murmurs, gallops or rub. ABDOMEN: Soft, nontender. Bowel sounds are heard. No organomegaly noted. EXTREMITIES: 2+ peripheral pulses. +2 peripheral edema and no calf tenderness noted. NEUROLOGIC EXAMINATION: Patient is sedated on ventilator, opens eyes to verbal stimuli. FINAL ASSESSMENT AND PLAN: Cardiac arrest requiring CPR, pulseless electrical activity with 14 minute downtime Chronic diastolic congestive heart failure Severe pulmonary hypertension Acute metabolic acidosis secondary to chronic kidney disease End-stage renal disease on dialysis Persistent atrial fibrillation Type 2 diabetes Sick sinus syndrome status post permanent pacemaker PLAN: Recommend continuing supportive treatment and neurological evaluation Poor prognosis with patient's multiple comorbid conditions Further recommendations based on clinical course I am dictating on behalf of Dr Rusty Witt's history/physical and assessment/pl an. Past Medical History Past Medical History: Atrial Fibrillation, COPD, Diabetes Mellitus, Dialysis, GERD/Reflux, Hyperlipidemia, Hypertension, Osteoarthritis (OA), Renal Disease, Sleep Apnea/CPAP/BIPAP, Thyroid Disorder Additional Past Medical History / Comment(s): O2 3L per nasal cannula. Dialysis MOWEFR. Cardiomyopathy. Gout. Constipation. 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 hemodialysis cath, peritoneal dialysis Past Anesthesia/Blood Transfusion Reactions: No Reported Reaction Type of Cardiac Device: Permanent Pacemaker Device Placement Date:: 10/17/2012 Past Psychological History: No Psychological Hx Reported Smoking Status: Former smoker Past Alcohol Use History: None Reported Past Drug Use History: None Reported - Past Family History Father History Unknown: Yes Additional Family Medical History / Comment(s): "hardening of the arteries" Mother History Unknown: Yes Additional Family Medical History / Comment(s): "water in the lungs" at 95. Medications and Allergies Home Medications Medication Instructions Recorded Confirmed Type allopurinoL [Zyloprim] 300 mg PO DAILY 11/21/14 07/27/23 History Acetaminophen Tab [Tylenol] 650 mg PO BID 07/12/16 07/27/23 History Multivitamins, Thera [Multivitamin 1 tab PO DAILY 10/03/17 07/27/23 History (formulary)] Lovastatin [Altoprev] 40 mg PO HS 05/24/21 07/27/23 History Omeprazole 40 mg PO DAILY 03/29/22 07/27/23 History Midodrine HCl [ProAmatine] 10 mg PO QID PRN 02/14/23 07/27/23 History glipiZIDE [Glucotrol] 10 mg PO DAILY@1400 02/14/23 07/27/23 History Sucralfate [Carafate] 1 gm PO BID 02/15/23 07/27/23 History Docusate [Colace] 100 mg PO BID 05/10/23 07/27/23 History Fludrocortisone [Florinef] 0.1 mg PO DAILY 05/10/23 07/27/23 History Ferrous Sulfate [Feosol] 325 mg PO DAILY 30 Days #60 tab 05/12/23 07/27/23 Rx Amiodarone [Cordarone] 200 mg PO DAILY 30 Days #30 tab 06/18/23 07/27/23 Rx L.acidoph,Paracasei, B.lactis 1 cap PO DAILY 07/07/23 07/27/23 History [Probiotic] Torsemide [Demadex] 80 mg PO DAILY 07/07/23 07/27/23 History glipiZIDE [Glucotrol] 20 mg PO DAILY@0800 07/07/23 07/27/23 History Apixaban [Eliquis] 5 mg PO BID #60 tab 07/12/23 07/27/23 Rx Darbepoetin Chirag [Aranesp] 60 mcg SQ Q7D 30 Days #4 each 07/12/23 07/27/23 Rx Nystatin 100,000 Unit/gm Powd 1 applic TOPICAL BID 30 Days #2 07/12/23 07/27/23 Rx [Mycostatin Powder] each Allergies Allergy/AdvReac Type Severity Reaction Status Date / Time lisinopril AdvReac Mild Cough Verified 07/27/23 08:23 Physical Exam Vitals: Vital Signs Temp Pulse Pulse Resp BP BP BP 07/29/23 12:00 98.5 F 69 13 07/29/23 11:59 07/29/23 11:58 07/29/23 11:42 07/29/23 11:00 64 20 07/29/23 10:00 60 17 97/58 07/29/23 09:24 07/29/23 09:00 61 20 97/57 07/29/23 08:04 07/29/23 08:00 98.2 F 60 17 97/57 07/29/23 07:00 60 20 100/58 07/29/23 06:45 60 20 98/59 07/29/23 06:30 60 20 99/58 07/29/23 06:15 60 20 98/55 07/29/23 06:00 60 20 102/60 07/29/23 05:45 62 20 103/59 07/29/23 05:30 60 20 106/61 07/29/23 05:15 70 16 103/62 07/29/23 05:00 60 20 103/63 07/29/23 04:45 65 20 109/62 07/29/23 04:30 60 20 102/60 07/29/23 04:15 60 22 102/58 07/29/23 04:14 07/29/23 04:00 60 10 L 104/60 07/29/23 03:45 98.1 F 60 20 100/59 07/29/23 03:30 60 20 101/56 07/29/23 03:15 60 11 L 98/55 07/29/23 03:00 60 20 102/59 07/29/23 02:45 60 20 100/59 07/29/23 02:30 68 8 L 105/62 07/29/23 02:15 60 22 102/60 07/29/23 02:00 68 20 104/64 07/29/23 01:45 60 20 102/57 07/29/23 01:30 60 20 101/58 07/29/23 01:15 60 20 105/61 07/29/23 01:00 60 20 104/59 07/29/23 00:45 60 22 104/62 07/29/23 00:41 07/29/23 00:30 60 20 107/61 07/29/23 00:15 60 20 103/61 07/29/23 00:00 98.1 F 66 20 104/61 07/28/23 23:45 60 20 104/61 07/28/23 23:30 60 20 105/64 07/28/23 23:23 60 20 105/64 07/28/23 23:15 60 16 101/62 07/28/23 23:00 60 16 102/61 07/28/23 22:45 60 20 106/62 07/28/23 22:30 60 20 107/64 07/28/23 22:15 60 20 109/66 07/28/23 22:03 97.1 F L 64 26 H 101/66 07/28/23 22:00 60 20 109/64 07/28/23 21:45 65 20 113/67 07/28/23 21:30 65 20 112/65 07/28/23 21:15 66 20 97/58 07/28/23 21:00 97 F L 64 20 109/68 07/28/23 20:56 07/28/23 20:45 63 0 L 110/65 07/28/23 20:30 65 20 101/66 07/28/23 20:15 62 20 104/63 07/28/23 20:00 60 20 96/62 01/06/24 19:45 60 20 101/61 07/28/23 19:30 61 20 95/61 07/28/23 19:15 60 20 92/58 07/28/23 19:11 97 F L 60 18 117/57 07/28/23 19:00 60 20 95/61 07/28/23 18:45 60 20 07/28/23 18:30 60 20 95/60 07/28/23 18:15 60 20 99/62 07/28/23 18:00 60 20 100/62 07/28/23 17:45 60 20 102/63 07/28/23 17:30 60 20 105/70 07/28/23 17:15 60 20 118/89 07/28/23 17:00 60 20 118/67 07/28/23 16:45 60 24 111/70 07/28/23 16:30 60 20 106/80 07/28/23 16:15 60 20 91/60 07/28/23 16:00 101.8 F H 60 20 88/59 07/28/23 15:45 60 20 86/57 07/28/23 15:30 60 20 83/57 07/28/23 15:15 60 20 81/54 07/28/23 15:13 07/28/23 15:00 60 20 85/54 07/28/23 14:45 60 20 98/72 07/28/23 14:30 60 20 07/28/23 14:15 60 20 07/28/23 14:00 20 07/28/23 13:45 60 20 07/28/23 13:30 60 22 07/28/23 13:15 60 23 07/28/23 13:00 60 23 07/28/23 12:45 60 22 07/28/23 12:30 60 20 Pulse Ox FiO2 07/29/23 12:00 93 L 55 07/29/23 11:59 50 07/29/23 11:58 50 07/29/23 11:42 55 07/29/23 11:00 93 L 07/29/23 10:00 94 L 07/29/23 09:24 60 07/29/23 09:00 93 L 07/29/23 08:04 50 07/29/23 08:00 91 L 60 07/29/23 07:00 99 07/29/23 06:45 98 07/29/23 06:30 97 07/29/23 06:15 98 07/29/23 06:00 98 50 07/29/23 05:45 97 07/29/23 05:30 97 07/29/23 05:15 97 07/29/23 05:00 97 50 07/29/23 04:45 96 07/29/23 04:30 97 07/29/23 04:15 97 07/29/23 04:14 50 07/29/23 04:00 97 50 07/29/23 03:45 97 50 07/29/23 03:30 97 07/29/23 03:15 97 07/29/23 03:00 98 07/29/23 02:45 98 07/29/23 02:30 99 07/29/23 02:15 98 07/29/23 02:00 99 07/29/23 01:45 99 07/29/23 01:30 99 50 07/29/23 01:15 99 07/29/23 01:00 99 07/29/23 00:45 99 07/29/23 00:41 50 07/29/23 00:30 99 07/29/23 00:15 99 07/29/23 00:00 98 50 07/28/23 23:45 98 07/28/23 23:30 98 07/28/23 23:23 98 07/28/23 23:15 98 07/28/23 23:00 98 50 07/28/23 22:45 98 07/28/23 22:30 98 07/28/23 22:15 98 07/28/23 22:03 07/28/23 22:00 97 50 07/28/23 21:45 98 07/28/23 21:30 97 07/28/23 21:15 97 07/28/23 21:00 98 50 07/28/23 20:56 50 07/28/23 20:45 98 07/28/23 20:30 98 07/28/23 20:15 99 07/28/23 20:00 100 50 07/28/23 19:45 100 07/28/23 19:30 99 07/28/23 19:15 99 07/28/23 19:11 07/28/23 19:00 98 07/28/23 18:45 98 07/28/23 18:30 98 07/28/23 18:15 97 07/28/23 18:00 97 07/28/23 17:45 97 07/28/23 17:30 96 07/28/23 17:15 97 07/28/23 17:00 96 07/28/23 16:45 95 07/28/23 16:30 96 07/28/23 16:15 97 07/28/23 16:00 98 50 07/28/23 15:45 97 07/28/23 15:30 97 07/28/23 15:15 97 07/28/23 15:13 50 07/28/23 15:00 97 07/28/23 14:45 98 07/28/23 14:30 07/28/23 14:15 100 07/28/23 14:00 07/28/23 13:45 98 07/28/23 13:30 98 07/28/23 13:15 98 07/28/23 13:00 98 07/28/23 12:45 98 07/28/23 12:30 98 Intake and Output 07/28/23 07/29/23 07/29/23 22:59 06:59 14:59 Intake Total 1709.833 873.118 609.046 Output Total 900 0 0 Balance 809.833 873.118 609.046 Intake: IV 400 400 300 Sodium Chloride 0.9% 1, 400 400 300 000 ml @ 50 mls/hr IV . Q20H [facility] Rx#:[id number] Intake, IV Titration 369.833 363.118 269.046 Amount Norepinephrine 4 mg In 233.363 254 103.321 Sodium Chloride 0.9% 250 ml @ 0.03 MCG/KG/MIN 13. 361 mls/hr IV .Q19H1M [facility] Rx#:[id number] cefTRIAXone 1 gm In 50 Sodium Chloride 0.9% 50 ml @ 100 mls/hr IVPB Q24HR [facility] Rx#:[id number] propofoL 1,000 mg In 136.470 109.118 115.725 Empty Bag 1 bag @ 15 MCG/ KG/MIN 10.52 mls/hr IV . Q9H31M [facility] Rx#:[id number] Tube Feeding 80 80 40 Hemodialysis 800 Other 60 30 Output: Urine 0 0 0 Hemodialysis 900 ABP, PAP, CO, CI - Last 8 Hours Arterial Blood Pressure 114/67 Arterial Blood Pressure 103/54 Arterial Blood Pressure 101/60 Results 07/29/23 04:31 07/29/23 04:31 Cardiac Enzymes 07/28/23 Range/Units 15:21 AST 41 (17-59) U/L CBC 07/28/23 07/29/23 Range/Units 19:38 04:31 WBC 10.3 9.0 (3.8-10.6) k/uL RBC 2.99 L 3.11 L (4.30-5.90) m/uL Hgb 9.9 L 10.1 L (13.0-17.5) gm/dL Hct 31.8 L 32.7 L (39.0-53.0) % Plt Count 168 185 (150-450) k/uL Comprehensive Metabolic Panel 07/28/23 07/29/23 Range/Units 15:21 04:31 Sodium 134 L 133 L (137-145) mmol/L Potassium 5.6 H 4.5 (3.5-5.1) mmol/L Chloride 98 98 (98-107) mmol/L Carbon Dioxide 24 21 L (22-30) mmol/L BUN 35 H 27 H (9-20) mg/dL Creatinine 3.36 H 2.88 H (0.66-1.25) mg/dL Glucose 114 H 131 H (74-99) mg/dL Calcium 8.7 8.6 (8.4-10.2) mg/dL AST 41 (17-59) U/L ALT 31 (4-49) U/L Alkaline Phosphatase 139 H (38-126) U/L Total Protein 6.4 (6.3-8.2) g/dL Albumin 3.1 L (3.5-5.0) g/dL Current Medications Generic Name Dose Route Start Last Admin Trade Name Freq PRN Reason Stop Dose Admin Acetaminophen 650 mg 07/27/23 21:00 07/29/23 07:59 Acetaminophen Tab 325 Mg Tab PO 650 mg BID [facility] Administration Allopurinol 300 mg 07/28/23 09:00 07/29/23 07:56 Allopurinol 300 Mg Tab PO 300 mg DAILY [facility] Administration Amiodarone HCl 200 mg 07/28/23 09:00 07/29/23 07:55 Amiodarone 200 Mg Tab PO 200 mg DAILY [facility] Administration Apixaban 5 mg 07/27/23 21:00 07/29/23 07:55 Apixaban 5 Mg Tab PO 5 mg BID [facility] Administration Protocol Atorvastatin Calcium 10 mg 07/27/23 21:00 07/28/23 21:19 Atorvastatin 10 Mg Tab PO 10 mg HS [facility] Administration Chlorhexidine Gluconate 15 ml 07/28/23 09:00 07/29/23 07:55 Chlorhexidine Gluconate 15 Ml Cup MUCOUS MEM 15 ml BID [facility] Administration Darbepoetin Chirag 60 mcg 07/27/23 14:15 07/27/23 16:51 Darbepoetin Chirag 60 Mcg/0.3 Ml Syringe SQ 60 mcg Q7D [facility] Administration Docusate Sodium 100 mg 07/27/23 21:00 07/29/23 07:56 Docusate 100 Mg Cap PO Not Given BID [facility] Ferrous Sulfate 325 mg 07/28/23 09:00 07/29/23 07:55 Ferrous Sulfate 325 Mg Tab PO 325 mg DAILY [facility] Administration Fludrocortisone Acetate 0.1 mg 07/28/23 09:00 07/29/23 07:56 Fludrocortisone 0.1 Mg Tab PO 0.1 mg DAILY [facility] Administration Hydromorphone HCl 1 mg 07/27/23 06:26 07/28/23 10:32 Hydromorphone 1 Mg/Ml 1 Ml Syringe IVP 1 mg Q3HR PRN Administration Severe Pain (Scale 7 to 10) Sodium Chloride 1,000 mls @ 50 mls/hr 07/27/23 06:30 07/28/23 18:23 Saline 0.9% IV Not Given .Q20H [facility] Ceftriaxone Sodium 1 gm/ 50 mls @ 100 mls/hr 07/27/23 14:15 07/29/23 07:56 Sodium Chloride IVPB 100 mls/hr Q24HR [facility] Administration Protocol Propofol 1,000 mg/ IV Solution 100 mls @ 10.52 mls/hr 07/28/23 01:15 07/29/23 11:45 IV 0 mcg/kg/min .Q9H31M [facility] 0 mls/hr Titration Protocol 15 MCG/KG/MIN Norepinephrine Bitartrate 4 mg 254 mls @ 13.361 mls/hr 07/28/23 02:00 07/29/23 07:57 / Sodium Chloride IV 0.08 mcg/kg/min .Q19H1M [facility] 35.628 mls/hr Administration Protocol 0.03 MCG/KG/MIN Insulin Aspart 0 unit 07/28/23 12:00 07/29/23 11:55 Insulin Aspart (Novolog) 100 Unit/Ml Vial SQ 08/04/23 12:01 Not Given Q6H [facility] Protocol Midodrine 5 mg 07/29/23 12:30 07/29/23 11:55 Midodrine 5 Mg Tab PO 5 mg AC-TID [facility] Administration Morphine Sulfate 4 mg 07/27/23 01:56 Morphine Sulfate 4 Mg/Ml Syringe IV Q4HR PRN Severe Pain (Scale 7 to 10) Multivitamins 1 each 07/28/23 09:00 07/29/23 07:55 Multivitamins, Thera 1 Each Tab PO 1 each DAILY [facility] Administration Naloxone HCl 0.2 mg 07/28/23 02:24 Naloxone 0.4 Mg/Ml 1 Ml Vial IV Q2M PRN Opioid Reversal Ondansetron HCl 4 mg 07/27/23 06:26 Ondansetron 4 Mg/2 Ml Vial IVP Q8HR PRN Nausea And Vomiting Pantoprazole Sodium 40 mg 07/28/23 09:00 07/29/23 07:56 Pantoprazole 40 Mg Tablet PO 40 mg DAILY [facility] Administration Sucralfate 1 gm 07/27/23 21:00 07/29/23 07:56 Sucralfate 1 Gm Tab PO 1 gm BID [facility] Administration Intake and Output 07/28/23 07/29/23 07/29/23 22:59 06:59 14:59 Intake Total 1709.833 873.118 609.046 Output Total 900 0 0 Balance 809.833 873.118 609.046 Intake: IV 400 400 300 Sodium Chloride 0.9% 1, 400 400 300 000 ml @ 50 mls/hr IV . Q20H [facility] Rx#:[id number] Intake, IV Titration 369.833 363.118 269.046 Amount Norepinephrine 4 mg In 233.363 254 103.321 Sodium Chloride 0.9% 250 ml @ 0.03 MCG/KG/MIN 13. 361 mls/hr IV .Q19H1M [facility] Rx#:[id number] cefTRIAXone 1 gm In 50 Sodium Chloride 0.9% 50 ml @ 100 mls/hr IVPB Q24HR [facility] Rx#:[id number] propofoL 1,000 mg In 136.470 109.118 115.725 Empty Bag 1 bag @ 15 MCG/ KG/MIN 10.52 mls/hr IV . Q9H31M [facility] Rx#:[id number] Tube Feeding 80 80 40 Hemodialysis 800 Other 60 30 Output: Urine 0 0 0 Hemodialysis 900 07/29/23 04:31 07/29/23 04:31
--- NOTE | 2023-07-29 12:55 | P.PN ---
Subjective Progress Note Date: 07/29/23 I am following-up with patient and per ICU nurse his IV Propofol was held for two hours now, no seizures or myoclonic jerks. I spoke with his and she stated yesterday he was opening his eyes. Objective - Vital Signs Vital signs: Vital Signs Temp 98.5 F 07/29/23 12:00 Pulse 69 07/29/23 12:00 Resp 13 07/29/23 12:00 BP 97/58 07/29/23 10:00 Pulse Ox 93 L 07/29/23 12:00 FiO2 55 07/29/23 12:00 Intake & Output 07/28/23 07/29/23 07/29/23 18:59 06:59 18:59 Intake Total 4015.403 9725.492 609.046 Output Total 0 900 0 Balance 6979.727 3324.492 609.046 Weight 123.559 kg Intake: IV 780 600 300 Sodium Chloride 0.9% 1, 680 600 300 000 ml @ 50 mls/hr IV . Q20H [facility] Rx#:[id number] cefTRIAXone 1 gm In 100 Sodium Chloride 0.9% 50 ml @ 100 mls/hr IVPB Q24HR [facility] Rx#:[id number] Intake, IV Titration 485.387 667.492 269.046 Amount Norepinephrine 4 mg In 315.308 487.363 103.321 Sodium Chloride 0.9% 250 ml @ 0.03 MCG/KG/MIN 13. 361 mls/hr IV .Q19H1M [facility] Rx#:[id number] cefTRIAXone 1 gm In 50 Sodium Chloride 0.9% 50 ml @ 100 mls/hr IVPB Q24HR [facility] Rx#:[id number] propofoL 1,000 mg In 170.079 180.129 115.725 Empty Bag 1 bag @ 15 MCG/ KG/MIN 10.52 mls/hr IV . Q9H31M [facility] Rx#:[id number] Tube Feeding 60 120 40 Hemodialysis 800 Other 30 60 Output: Urine 0 0 0 Hemodialysis 900 ABP, PAP, CO, CI - Last Documented Arterial Blood Pressure 114/67 - Exam General: Lying in bed and is not in acute distress. Resp: Intubated on ventilator. Neuro: Limited. IV Propofol is held for about two hours prior to examination (was on IV Propofol 25mcg/kg/min). Is comatose. GCS 6 (E4, VT1, M1). Partially opens eyes spontaneouly bilaterally. Pupils are 2-3mm bilaterally and reactive to light. No facial weakness. Is breathing over the vent. Intact gag and cough reflex. Motor: No spontaneous movement. No myclonic jerks. Some of the workup during his hospital visit consisted of: He is having episodes of hypotensive as well as 70-80 over 40-50s and also his pulse ox was as low as 81% liters. Most recent sodium is trended up at 133, potassium is 5.9, glucose is 170s to 200s, AST ALT was within normal limits Plasma lactic acid vein is 2.8 and most recent is 1.3. TSH as a 7.090. Ammonia is 25. CT head is reported as similar mild generalized atrophy. No acute intracranial abnormality seen. I personally reviewed CT head and agree there is no acute or subacute ischemia or bleed. - Labs CBC & Chem 7: 07/29/23 04:31 07/29/23 04:31 Labs: Abnormal Lab Results - Last 24 Hours (Table) 07/28/23 07/28/23 07/29/23 Range/Units 15:21 19:38 00:16 RBC 2.99 L (4.30-5.90) m/uL Hgb 9.9 L (13.0-17.5) gm/dL Hct 31.8 L (39.0-53.0) % MCV 106.2 H (80.0-100.0) fL MCHC (31.0-37.0) g/dL RDW 20.5 H (11.5-15.5) % Macrocytosis Marked A ABG pH (7.35-7.45) ABG Total CO2 (19-24) mmol/L Sodium 134 L (137-145) mmol/L Potassium 5.6 H (3.5-5.1) mmol/L Carbon Dioxide (22-30) mmol/L BUN 35 H (9-20) mg/dL Creatinine 3.36 H (0.66-1.25) mg/dL Glucose 114 H (74-99) mg/dL POC Glucose (mg/dL) 134 H (70-110) mg/dL Alkaline Phosphatase 139 H (38-126) U/L Albumin 3.1 L (3.5-5.0) g/dL 07/29/23 07/29/23 07/29/23 Range/Units 04:31 04:31 05:03 RBC 3.11 L (4.30-5.90) m/uL Hgb 10.1 L (13.0-17.5) gm/dL Hct 32.7 L (39.0-53.0) % MCV 105.1 H (80.0-100.0) fL MCHC 30.9 L (31.0-37.0) g/dL RDW 20.2 H (11.5-15.5) % Macrocytosis Marked A ABG pH 7.46 H (7.35-7.45) ABG Total CO2 26 H (19-24) mmol/L Sodium 133 L (137-145) mmol/L Potassium (3.5-5.1) mmol/L Carbon Dioxide 21 L (22-30) mmol/L BUN 27 H (9-20) mg/dL Creatinine 2.88 H (0.66-1.25) mg/dL Glucose 131 H (74-99) mg/dL POC Glucose (mg/dL) (70-110) mg/dL Alkaline Phosphatase (38-126) U/L Albumin (3.5-5.0) g/dL 07/29/23 07/29/23 07/29/23 Range/Units 05:12 05:13 11:52 RBC (4.30-5.90) m/uL Hgb (13.0-17.5) gm/dL Hct (39.0-53.0) % MCV (80.0-100.0) fL MCHC (31.0-37.0) g/dL RDW (11.5-15.5) % Macrocytosis ABG pH (7.35-7.45) ABG Total CO2 (19-24) mmol/L Sodium (137-145) mmol/L Potassium (3.5-5.1) mmol/L Carbon Dioxide (22-30) mmol/L BUN (9-20) mg/dL Creatinine (0.66-1.25) mg/dL Glucose (74-99) mg/dL POC Glucose (mg/dL) 144 H 136 H 149 H (70-110) mg/dL Alkaline Phosphatase (38-126) U/L Albumin (3.5-5.0) g/dL Microbiology - Last 24 Hours (Table) 07/28/23 04:41 Gram Stain - Preliminary Sputum Assessment and Plan Assessment: This is a 78 y/o gentleman with multiple medical problems who presents to ED on 07/27/2023 because of generalized weakness and a fall. He had difficulty getting out of chair to bathroom. In our facility at 12:30am on 07/28/2023 he had cardiopulmonary arrest lasting 14 minutes. Acute cardiopulmonary arrest lasting 14 minutes. He was in PEA per nursing staff. 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 Some limitation since on sedation (IV Propofol). On examination has brainstem reflexes (breathing over the vent, open eyes and has intact gag/cough). CT head is negative for acute/subacute changes. Also component of encephalopathy due to metabolic and hypoxic encephalopathy. Hypotensive on epinephrine Diabetes mellitus that is on going History of Cardiomyopathy Sleep apnea History of atrial fibrillation on eliquis Chronic renal failure on hemodialysis Plan: Pending EEG. Patient has abnormal thyroid and avoid hypotensive episodes and we'll defer the management to the primary/ICU team. We'll defer the rest of the medical management to primary and other specialist Condition condition is a guarded. Again the patient has brainstem reflexes and hopefully once sedation is off for 24-48 hours will have a better neurological examination. The plan was discussed with the patient's who is at bedside as well as ICU attending. Dr. Lea will start neurology service tomorrow A.M. Time with Patient: Less than 30
[2023-07-29] MEDS: SODIUM CHLORIDE 0.9% 1,000 ML IV SCH (16:41)
[2023-07-29] MEDS: levETIRAcetam IV 500 MG/5 ML VIAL IVP SCH ×2 (16:41→20:03)
[2023-07-29 16:44] LABS: Glucose,Whole Blood 170 mg/dL (70-110)
[2023-07-29] MEDS: ATORVASTATIN 10 MG TAB PO SCH (20:03)
[2023-07-29] MEDS: DOCUSATE ORAL SOLN 100 MG/10 ML CUP PO SCH (23:43)
[2023-07-29 23:48] LABS: Glucose,Whole Blood 139 mg/dL (70-110)
[2023-07-30] MEDS: INSULIN ASPART (NovoLOG) 100 UNIT/ML VIAL SQ SCH ×4 (00:06→18:15)
--- NOTE | 2023-07-30 03:05 | EEG ---
ELECTROENCEPHALOGRAM REPORT CLINICAL HISTORY: This is a 78-year-old gentleman with in-house cardiopulmonary arrest, who has altered mental status. The video EEG is obtained to evaluate for seizure epileptiform activity. RELEVANT MEDICATIONS: IV propofol has been held for 2 hours prior to this testing. EEG TYPE: A routine EEG is used with video using the 10/20 electrode placement system. DESCRIPTION: The patient is intubated on a ventilator. The background was hard to assess because of the myogenic artifact. Had to go down to 3 microvolts, and it seems the patient has diffuse nonrhythmic delta activity. There is no focal slowing. Again, as stated, the patient has diffuse myogenic artifact. Interictal and ictal: The patient has rare spike and slow waves over the right centrotemporal region. No seizures noted during the study. Activation procedure is photic stimulation and hyperventilation is not performed. CLINICAL INTERPRETATION: This is an abnormal routine EEG. The background slowing is suggestive of severe encephalopathy. The rare epileptiform discharges over the right centrotemporal increase the risk for seizure. Otherwise, no seizures noted during this study. Clinical correlation is recommended. MMODL / IJN: [id number] / JONATHAN
[2023-07-30 05:42] LABS: ABG HCO3 23 mmol/L (21-25); ABG Oxygen Saturation 95.7 % (94-97); ABG PCO2 33 mmHg (35-45); ABG PH 7.45 (7.35-7.45); ABG PO2 80 mmHg (83-108); ABG TCO2 24 mmol/L (19-24); Allen Test Performed? Yes
[2023-07-30] MEDS ORDERED: FUROSEMIDE 10 MG/ML 10 ML VIAL IV STA (06:01)
[2023-07-30 06:16] LABS: Anisocytosis Moderate; Basophils # (A) 0.1 k/uL (0-0.2); Basophils % (A) 1 %; Eosinophils # (A) 0.1 k/uL (0-0.7); Eosinophils % (A) 1 %; HCT 33.3 % (39.0-53.0); HGB 10.1 gm/dL (13.0-17.5); Hypochromasia Marked; Lymphocytes # (A) 1.1 k/uL (1.0-4.8); Lymphocytes % (A) 12 %; MCH 31.8 pg (25.0-35.0); MCHC 30.3 g/dL (31.0-37.0); MCV 104.9 fL (80.0-100.0); Macrocytosis Marked; Mean Platelet Volume 7.7; Monocytes # (A) 0.8 k/uL (0-1.0); Monocytes % (A) 8 %; Neutrophils # (A) 6.9 k/uL (1.3-7.7); Neutrophils % (A) 76 %; Platelet Count 179 k/uL (150-450); RBC 3.18 m/uL (4.30-5.90); RDW 20.1 % (11.5-15.5); WBC 9.1 k/uL (3.8-10.6)
[2023-07-30 06:30] LABS: Glucose,Whole Blood 159 mg/dL (70-110)
[2023-07-30 07:02] LABS: African American GFR (CKD) 18 (>60 ml/min/1.73 sqM); Anion Gap 15 mmol/L; Blood Urea Nitrogen 38 mg/dL (9-20); Calcium 8.6 mg/dL (8.4-10.2); Carbon Dioxide 18 mmol/L (22-30); Chloride 99 mmol/L (98-107); Glucose 158 mg/dL (74-99); Non-African American GFR(CKD) 16 (>60 ml/min/1.73 sqM); Potassium 4.9 mmol/L (3.5-5.1); Sodium 132 mmol/L (137-145)
[2023-07-30] MEDS: MIDODRINE 5 MG TAB PO SCH ×3 (07:11→18:13)
--- NOTE | 2023-07-30 07:19 | P.PN ---
Subjective Progress Note Date: 07/30/23 Principal diagnosis: Respiratory failure. Cardiac arrest This is a 78-year-old white male with history of multiple medical problems including chronic renal failure/chronic kidney disease on hemodialysis, yesterday the patient was brought into the ER with mostly you days history of weakness and falling easily. Patient was admitted for further evaluation of his weakness, and he was seen only by nephrology for his chronic kidney disease and he was initiated on hemodialysis which is mostly given Wednesdays and Fridays. Patient is also known to have history of chronic diastolic congestive heart failure with moderate to severe tricuspid regurgitation and pulmonary hy pertension. In addition to this the patient has obstructive sleep apnea, and he is maintained on AVAPS at home. Patient was on the medical floor, and around 12:30 AM last night, patient had a sudden cardiac arrest. And TRISHA RAYO was called. Patient received 3 A of epinephrine and 1 amp of bicarb, his down time was felt to be about 14 minutes of CPR. In the meantime the patient was intubated, and placed on mechanical ventilation. Overnight the patient remains on mechanical ventilation, and I saw this morning. He is now on assist control rate of 2010 volume 500 FiO2 was 60% and PEEP of 8. ABG showed a pO2 of 112 pCO2 35 pH of 7.48. Patient is unresponsive to any stimuli except he seems to withdraw to painful stimuli only. And he is on norepinephrine at 0.06 mg/kg/m propofol 25 mg/kg/m she is also on IV fluid at 1 50 mL per hour I cut it down to [address] of the brain is pending, neurologic consultation is pending, chest x-ray showed mostly mild interstitial edema. Patient may or may not get dialysis today, this will be decided upon by nephrology on the case. After evaluating the patient, I recommended central venous access, and an arterial line was placed and the patient. Labs today WBC count is 10.2 hemoglobin 10.0, basic metabolic profile is normal except for potassium of 5.9 BUN is 29 creatinine 3.4, troponin is 0.063, cardiac consultation was initiated today, neurological consultation was also initiated, and I'm recommending that we send the patient down for CT of the brain without contrast today. Education is at present include amiodarone 200 mg daily eliquis 12 mg twice a day Lipitor, ceftriaxone, Aranesp, Dilaudid, Florinef, sliding scale insulin, midodrine, and DuoNeb updrafts 4 times a day and when necessary patient is also on Protonix, he was also placed on lokelma by nephrology for his hyperkalemia. Reevaluated 07/29/23, patient remains in the ICU, intubated and mechanically ventilated. On assist control rate of 20-2500 FiO2 50% PEEP of 8, ABG showed a pO2 of 84 pCO2 35 pH of 7.46. His FiO2 was increased earlier by respiratory to 60%, however I recommended PEEP up to 10 and cutting down the FiO2 down to 55% otherwise the remaining vent settings remained the same. Patient remains on norepinephrine at 0.08 mcg/kg/m propofol at 25 mg/kg/m vital a PE at 30 mL/m and 0.9 at 50 mL per hour. Patient remains unresponsive, he only withdraws to painful stimuli, CT of the brain yesterday was unremarkable. EEG is pending his left brachial arterial line was lost yesterday, went ahead and placed another arterial line today and the right radial artery. Patient remains on ceftriaxone and eliquis. Today my recommendation is to have sedation interruption and assess mental status again, patient was seen by neurology and recommending EEG. Patient underwent hemodialysis yesterday, no fluid was removed, WBC count today is 9 hemoglobin 10.1 and platelets are 1 85,000. Basic metabolic profile is normal bicarb is 21 BUN is 27 creatinine 2.88. Patient remains on medications as listed including allopurinol, amiodarone, eliquis, atorvastatin, ceftriaxone, propofol, Aranesp, Colace, ferrous sulfate, Florinef, and Dilaudid. Patient is also on Protonix, Zofran as needed, and morphine sulfate as needed as well as midodrine and insulin as per scheduled Progress note dated 07/30/2023. The patient was admitted to the emergency department on July 27, and was intubated on July 28. The patient has history of multiple medical problems including chronic renal failure, and chronic kidney disease, on hemodialysis, and apparently had been very weak at home, and falling. The patient remains on the mechanical ventilator. Ventilator settings include the volume assist control, rate 20, tidal volume 500, FiO2 55%, but 10. Blood gases show pO2 of 80, pCO2 33, and a pH is 7. or 5. The patient continues on propofol at 10 mics per kilogram per minute. Although recently has been turned off by the nurse, saline at 50 mL an hour, norepinephrine at 12 mcg/m, and vital high protein at 40 mL an hour, with a goal of 48. We will attempt a spontaneous breathing trial on this patient, with pressure support of 10, CPAP of 5. I'm not hopeful that the patient is ready for weaning given the fact that he still on norepinephrine at 12 mcg/m, insulin requiring FiO2 55%, with a PEEP of 10. PO2 was only 80. White count 9.1, hemoglobin 10.1, hematocrit 33.3, and platelet count 179,000. Sodium 132, potassium 4.9, chlorides 99, CO2 18, anion gap 15, BUN 38, creatinine 3.54. Chest x-ray shows a well-placed endotracheal tube, and a hemodialysis catheter. There is cardiomegaly, and small bilateral pleural effusions. Objective - Vital Signs Vital signs: Vital Signs Temp 97.7 F 07/30/23 04:00 Pulse 64 07/30/23 07:00 Resp 23 07/30/23 07:00 BP 103/65 07/30/23 05:00 Pulse Ox 95 07/30/23 07:00 FiO2 55 07/30/23 07:00 Intake & Output 07/29/23 07/30/23 07/30/23 18:59 06:59 18:59 Intake Total 1539.079 7516.358 Output Total 0 0 Balance 5421.680 0598.358 Weight 127.4 kg Intake: IV 600 650 Sodium Chloride 0.9% 1, 600 650 000 ml @ 50 mls/hr IV . Q20H [facility] Rx#:[id number] Intake, IV Titration 591.906 461.358 Amount Norepinephrine 4 mg In 393.395 360.661 Sodium Chloride 0.9% 250 ml @ 0.03 MCG/KG/MIN 13. 361 mls/hr IV .Q19H1M [facility] Rx#:[id number] cefTRIAXone 1 gm In 50 Sodium Chloride 0.9% 50 ml @ 100 mls/hr IVPB Q24HR [facility] Rx#:[id number] propofoL 1,000 mg In 148.511 100.697 Empty Bag 1 bag @ 15 MCG/ KG/MIN 10.52 mls/hr IV . Q9H31M [facility] Rx#:[id number] Tube Feeding 280 440 Other 60 Output: Urine 0 0 Other: # Voids 1 1 ABP, PAP, CO, CI - Last Documented Arterial Blood Pressure 127/53 - Exam No acute distress, off of sedation, with an orally placed endotracheal tube and NG tube. HEENT examination is grossly unremarkable. Neck supple. Full range of motion. No adenopathy thyromegaly or neck vein distention. Cardiovascular examination reveals regular rhythm rate. S1-S2 normal. No S3 or S4. No discernible murmur noted. Heart rate is 64 bpm. Heart sounds are distant. Lungs reveal scattered rhonchi. There are bilateral crackles. No wheezes. Breath sounds equal bilaterally. Saturations are 95%. Abdomen soft bowel sounds. No masses or tenderness. Extremities are intact. No cyanosis or clubbing. Diffuse edema and anasarca. Skin is without rash or lesion. Neurologic examination cannot be adequately assessed at this time. Propofol has just recently been turned off. - Labs CBC & Chem 7: 07/30/23 05:49 07/30/23 05:49 Labs: Abnormal Lab Results - Last 24 Hours (Table) 07/29/23 07/29/23 07/29/23 Range/Units 11:52 16:43 23:40 RBC (4.30-5.90) m/uL Hgb (13.0-17.5) gm/dL Hct (39.0-53.0) % MCV (80.0-100.0) fL MCHC (31.0-37.0) g/dL RDW (11.5-15.5) % Macrocytosis ABG pCO2 (35-45) mmHg ABG pO2 (83-108) mmHg Sodium (137-145) mmol/L Carbon Dioxide (22-30) mmol/L BUN (9-20) mg/dL Creatinine (0.66-1.25) mg/dL Glucose (74-99) mg/dL POC Glucose (mg/dL) 149 H 170 H 139 H (70-110) mg/dL 07/30/23 07/30/23 07/30/23 Range/Units 05:40 05:49 05:49 RBC 3.18 L (4.30-5.90) m/uL Hgb 10.1 L (13.0-17.5) gm/dL Hct 33.3 L (39.0-53.0) % MCV 104.9 H (80.0-100.0) fL MCHC 30.3 L (31.0-37.0) g/dL RDW 20.1 H (11.5-15.5) % Macrocytosis Marked A ABG pCO2 33 L (35-45) mmHg ABG pO2 80 L (83-108) mmHg Sodium 132 L (137-145) mmol/L Carbon Dioxide 18 L (22-30) mmol/L BUN 38 H (9-20) mg/dL Creatinine 3.54 H (0.66-1.25) mg/dL Glucose 158 H (74-99) mg/dL POC Glucose (mg/dL) (70-110) mg/dL 07/30/23 Range/Units 06:28 RBC (4.30-5.90) m/uL Hgb (13.0-17.5) gm/dL Hct (39.0-53.0) % MCV (80.0-100.0) fL MCHC (31.0-37.0) g/dL RDW (11.5-15.5) % Macrocytosis ABG pCO2 (35-45) mmHg ABG pO2 (83-108) mmHg Sodium (137-145) mmol/L Carbon Dioxide (22-30) mmol/L BUN (9-20) mg/dL Creatinine (0.66-1.25) mg/dL Glucose (74-99) mg/dL POC Glucose (mg/dL) 159 H (70-110) mg/dL Microbiology - Last 24 Hours (Table) 07/28/23 04:41 Gram Stain - Preliminary Sputum Sputum Culture - Preliminary Assessment and Plan Assessment: Status post cardiac arrest, with CPR and return of spontaneous circulation, with a 14 minute downtime. Patient had PEA. Rule out anoxic brain injury. Status post intubation and mechanical ventilation, 07/28/2023. Chronic diastolic CHF. Severe pulmonary hypertension. Acute metabolic acidosis, secondary to chronic kidney disease. Possible orthostatic hypotension, with history of recurrent falls. Hyperkalemia, secondary to chronic kidney disease. Anemia of chronic disease. History of sleep apnea syndrome. History of sepsis and septic shock. Chronic atrial fibrillation. Type 2 diabetes with diabetic nephropathy. History of sick sinus syndrome, status post pacemaker implantation. Plan: Plan dated 07/30/2023. The patient is seen today in room 260. The patient remains on the mechanical ventilator. He was intubated on July 28. The patient will get Lasix 60 mg IV push. The patient's propofol has been weaned off. The patient is not yet arousable. Although I don't think the patient is ready for a spontaneous breathing trial, he will be assessed for 1. He continues on norepinephrine at 12 mcg/m. He is getting vital HP at 40 mL an hour, with a goal of 48. The patient's also getting saline at 50 mL an hour. Once the patient is fully awake, we'll place him on pressure support of 10, CPAP of 5. Again, not likely that he is ready to wean. Additional recommendations and suggestions are forthcoming. Prognosis is certainly guarded. Labs, x-rays, and medications are reviewed. Time with Patient: Greater than 30
--- NOTE | 2023-07-30 07:20 | P.PN ---
Subjective Progress Note Date: 07/30/23 Principal diagnosis: Cardiac arrest The patient is a 78-year-old gentleman with history of cardiomyopathy with the last echo showed an EF around 35% and also permanent atrial fibrillation and also permanent pacemaker and morbid obesity and sleep apnea and COPD on multiple comorbid conditions. He was admitted to the hospital with generalized weakness and had a cardiac arrest on the floor was pulseless electrical activity required CPR for some time. Subsequently he was intubated and he was brought to the intensive care unit. Beside that the patient currently is in renal failure 07/30/2023 The patient was seen and evaluated this morning. He is currently unstable and requiring vasopressors. He is in nature fibrillation with overall controlled heart rate on the current medical regimen. He is on oral anticoagulation as well. He is of any sedation at this point from the morning. We'll see the patient would be able to wake up and there is no evidence of any anoxic encephalopathy. This too early. At this point. No echo was ordered since the patient had cardiac arrest we'll obtain an echocardiogram. The examination is remarkable for patient intubated on mechanical ventilation who is morbidly obese with stable vital signs of course knowing that he is on vasopressors at this point. The chest examination is remarkable for diminished breathing sounds bilaterally in the cardiovascular examination is remarkable for regular rhythm with distant heart sounds and the extremities has mild bilateral lower extremity edema. Assessment Cardiac arrest was pulseless electrical activity Chronic atrial fibrillation with controlled heart rate Cardiomyopathy Renal failure Possible anoxic encephalopathy Permanent pacemaker Multiple comorbid conditions Plan Decrease the dose of amiodarone Obtain an echocardiogram was Doppler Continue monitor the kidney function and lites Follow-up with the patient Objective - Vital Signs Vital signs: Vital Signs Temp 97.7 F 07/30/23 04:00 Pulse 64 07/30/23 07:00 Resp 23 07/30/23 07:00 BP 103/65 07/30/23 05:00 Pulse Ox 95 07/30/23 07:00 FiO2 55 07/30/23 07:00 Intake & Output 07/29/23 07/30/23 07/30/23 18:59 06:59 18:59 Intake Total 8382.809 7671.358 Output Total 0 0 Balance 2439.498 6977.358 Weight 127.4 kg Intake: IV 600 650 Sodium Chloride 0.9% 1, 600 650 000 ml @ 50 mls/hr IV . Q20H [facility] Rx#:[id number] Intake, IV Titration 591.906 461.358 Amount Norepinephrine 4 mg In 393.395 360.661 Sodium Chloride 0.9% 250 ml @ 0.03 MCG/KG/MIN 13. 361 mls/hr IV .Q19H1M [facility] Rx#:[id number] cefTRIAXone 1 gm In 50 Sodium Chloride 0.9% 50 ml @ 100 mls/hr IVPB Q24HR [facility] Rx#:[id number] propofoL 1,000 mg In 148.511 100.697 Empty Bag 1 bag @ 15 MCG/ KG/MIN 10.52 mls/hr IV . Q9H31M [facility] Rx#:[id number] Tube Feeding 280 440 Other 60 Output: Urine 0 0 Other: # Voids 1 1 ABP, PAP, CO, CI - Last Documented Arterial Blood Pressure 127/53 - Labs CBC & Chem 7: 07/30/23 05:49 07/30/23 05:49 Labs: Abnormal Lab Results - Last 24 Hours (Table) 07/29/23 07/29/23 07/29/23 Range/Units 11:52 16:43 23:40 RBC (4.30-5.90) m/uL Hgb (13.0-17.5) gm/dL Hct (39.0-53.0) % MCV (80.0-100.0) fL MCHC (31.0-37.0) g/dL RDW (11.5-15.5) % Macrocytosis ABG pCO2 (35-45) mmHg ABG pO2 (83-108) mmHg Sodium (137-145) mmol/L Carbon Dioxide (22-30) mmol/L BUN (9-20) mg/dL Creatinine (0.66-1.25) mg/dL Glucose (74-99) mg/dL POC Glucose (mg/dL) 149 H 170 H 139 H (70-110) mg/dL 07/30/23 07/30/23 07/30/23 Range/Units 05:40 05:49 05:49 RBC 3.18 L (4.30-5.90) m/uL Hgb 10.1 L (13.0-17.5) gm/dL Hct 33.3 L (39.0-53.0) % MCV 104.9 H (80.0-100.0) fL MCHC 30.3 L (31.0-37.0) g/dL RDW 20.1 H (11.5-15.5) % Macrocytosis Marked A ABG pCO2 33 L (35-45) mmHg ABG pO2 80 L (83-108) mmHg Sodium 132 L (137-145) mmol/L Carbon Dioxide 18 L (22-30) mmol/L BUN 38 H (9-20) mg/dL Creatinine 3.54 H (0.66-1.25) mg/dL Glucose 158 H (74-99) mg/dL POC Glucose (mg/dL) (70-110) mg/dL 07/30/23 Range/Units 06:28 RBC (4.30-5.90) m/uL Hgb (13.0-17.5) gm/dL Hct (39.0-53.0) % MCV (80.0-100.0) fL MCHC (31.0-37.0) g/dL RDW (11.5-15.5) % Macrocytosis ABG pCO2 (35-45) mmHg ABG pO2 (83-108) mmHg Sodium (137-145) mmol/L Carbon Dioxide (22-30) mmol/L BUN (9-20) mg/dL Creatinine (0.66-1.25) mg/dL Glucose (74-99) mg/dL POC Glucose (mg/dL) 159 H (70-110) mg/dL Microbiology - Last 24 Hours (Table) 07/28/23 04:41 Gram Stain - Preliminary Sputum Sputum Culture - Preliminary
[2023-07-30] MEDS: NOREPINEPHRINE 4 MG in SODIUM CHLORIDE 0.9% 250 ML IV SCH ×2 (08:30→18:07)
[2023-07-30] MEDS: ACETAMINOPHEN TAB 325 MG TAB PO SCH ×2 (09:28→20:02)
--- NOTE | 2023-07-30 10:05 | XR ---
EXAMINATION TYPE: XR chest 1V DATE OF EXAM: 07/30/2023 COMPARISON: 07/29/2023 HISTORY: 78-year-old male mechanical ventilation, ICU follow-up TECHNIQUE: Single frontal view of the chest is obtained. FINDINGS: ET tube tip at the level of the medial clavicular heads. NG tube courses below the diaphra gm. Right-sided double-lumen hemodialysis catheter tips in the lower SVC. Left anterior chest wall pa cemaker generator with right atrial and right ventricular leads. Heart moderately enlarged. Diffuse i nterstitial density. Small bilateral pleural effusions appear slightly increased. IMPRESSION: Similar cardiomegaly and pulmonary vascular congestion. Small bilateral pleural effusion s with adjacent atelectasis and/or consolidation slightly increased.
[2023-07-30 11:47] LABS: Glucose,Whole Blood 140 mg/dL (70-110)
[2023-07-30] MEDS: AMIODARONE 100 MG TAB PO SCH (12:52)
[2023-07-30] MEDS: PANTOPRAZOLE 40 MG TABLET PO SCH (12:57)
[2023-07-30] MEDS: APIXABAN 5 MG TAB PO SCH ×2 (12:57→20:02)
[2023-07-30] MEDS: MULTIVITAMINS, THERA 1 EACH TAB PO SCH (12:57)
[2023-07-30] MEDS: DOCUSATE ORAL SOLN 100 MG/10 ML CUP PO SCH ×2 (12:57→20:01)
[2023-07-30] MEDS: CHLORHEXIDINE GLUCONATE 15 ML CUP MUCOUS MEM SCH ×2 (12:58→20:01)
[2023-07-30] MEDS: levETIRAcetam IV 500 MG/5 ML VIAL IVP SCH ×2 (12:59→20:02)
[2023-07-30] MEDS: FLUDROCORTISONE 0.1 MG TAB PO SCH (12:59)
--- NOTE | 2023-07-30 13:10 | P.PN ---
Subjective Patient is seen for follow-up for end-stage renal disease. He is currently seen on hemodialysis. Patient remains on the vent. Sedation has been off since this morning. There is no improvement in mentation. Objective - Vital Signs Vital signs: Vital Signs Temp 97.7 F 07/30/23 12:50 Pulse 81 07/30/23 12:50 Resp 22 07/30/23 12:50 BP 133/55 07/30/23 12:50 Pulse Ox 93 L 07/30/23 11:15 FiO2 55 07/30/23 11:00 Intake & Output 07/29/23 07/30/23 07/30/23 18:59 06:59 18:59 Intake Total 4186.460 6498.358 965.839 Output Total 0 0 900 Balance 5491.175 8728.358 65.839 Weight 127.4 kg 127.4 kg Intake: IV 600 650 200 Sodium Chloride 0.9% 1, 600 650 200 000 ml @ 50 mls/hr IV . Q20H [facility] Rx#:[id number] Intake, IV Titration 591.906 461.358 175.839 Amount Norepinephrine 4 mg In 393.395 360.661 175.839 Sodium Chloride 0.9% 250 ml @ 0.03 MCG/KG/MIN 13. 361 mls/hr IV .Q19H1M [facility] Rx#:[id number] cefTRIAXone 1 gm In 50 Sodium Chloride 0.9% 50 ml @ 100 mls/hr IVPB Q24HR [facility] Rx#:[id number] propofoL 1,000 mg In 148.511 100.697 Empty Bag 1 bag @ 15 MCG/ KG/MIN 10.52 mls/hr IV . Q9H31M [facility] Rx#:[id number] Tube Feeding 280 440 160 Hemodialysis 400 Other 60 30 Output: Urine 0 0 0 Hemodialysis 900 Other: Voiding Method External Catheter # Voids 1 1 ABP, PAP, CO, CI - Last Documented Arterial Blood Pressure 133/55 - Exam Patient is on the vent. No response to painful stimuli Examination of the heart S1 and S2 Examination of the lungs decreased breath sounds at the bases Abdomen is soft obese Examination lower extremity shows chronic skin skin changes 1+ edema noted. 2+ edema noted in bilateral upper extremities. - Labs CBC & Chem 7: 07/30/23 05:49 07/30/23 05:49 Labs: Abnormal Lab Results - Last 24 Hours (Table) 07/29/23 07/29/23 07/30/23 Range/Units 16:43 23:40 05:40 RBC (4.30-5.90) m/uL Hgb (13.0-17.5) gm/dL Hct (39.0-53.0) % MCV (80.0-100.0) fL MCHC (31.0-37.0) g/dL RDW (11.5-15.5) % Macrocytosis ABG pCO2 33 L (35-45) mmHg ABG pO2 80 L (83-108) mmHg Sodium (137-145) mmol/L Carbon Dioxide (22-30) mmol/L BUN (9-20) mg/dL Creatinine (0.66-1.25) mg/dL Glucose (74-99) mg/dL POC Glucose (mg/dL) 170 H 139 H (70-110) mg/dL 07/30/23 07/30/23 07/30/23 Range/Units 05:49 05:49 06:28 RBC 3.18 L (4.30-5.90) m/uL Hgb 10.1 L (13.0-17.5) gm/dL Hct 33.3 L (39.0-53.0) % MCV 104.9 H (80.0-100.0) fL MCHC 30.3 L (31.0-37.0) g/dL RDW 20.1 H (11.5-15.5) % Macrocytosis Marked A ABG pCO2 (35-45) mmHg ABG pO2 (83-108) mmHg Sodium 132 L (137-145) mmol/L Carbon Dioxide 18 L (22-30) mmol/L BUN 38 H (9-20) mg/dL Creatinine 3.54 H (0.66-1.25) mg/dL Glucose 158 H (74-99) mg/dL POC Glucose (mg/dL) 159 H (70-110) mg/dL 07/30/23 Range/Units 11:45 RBC (4.30-5.90) m/uL Hgb (13.0-17.5) gm/dL Hct (39.0-53.0) % MCV (80.0-100.0) fL MCHC (31.0-37.0) g/dL RDW (11.5-15.5) % Macrocytosis ABG pCO2 (35-45) mmHg ABG pO2 (83-108) mmHg Sodium (137-145) mmol/L Carbon Dioxide (22-30) mmol/L BUN (9-20) mg/dL Creatinine (0.66-1.25) mg/dL Glucose (74-99) mg/dL POC Glucose (mg/dL) 140 H (70-110) mg/dL Microbiology - Last 24 Hours (Table) 07/28/23 04:41 Gram Stain - Final Sputum Sputum Culture - Final Assessment and Plan Assessment: 1. End-stage renal disease maintained on hemodialysis on Sunday schedule via permacath. 2. Status post fall. No fractures noted. 3. Diabetes mellitus. 4. Metabolic acidosis secondary to chronic kidney disease. Improved. 5. Chronic diastolic CHF with moderate to severe tricuspid regurgitation and pulmonary hypertension. 6. Hyperkalemia secondary to CKD, improved post HD. Patient underwent hemodialysis July 27 and July 28, 2023. 7. Status post PEA arrest 07/28/2023 concerning for respiratory arrest while on BiPAP. 8. Anemia of chronic kidney disease maintained on Aranesp. Plan: Hemodialysis today with UF of about 0.5 L. Continue to monitor for improvement in mentation.
--- NOTE | 2023-07-30 13:41 | P.PN ---
Subjective Progress Note Date: 07/30/23 Patient was initially seen by Dr. Kirill Marcos. Please refer to his note for details. Patient is a 78-year-old male with in-house cardiopulmonary arrest. Patient does have brainstem reflexes. CT head negative. EKG reveals severe encephalopathy and rare epileptiform discharges over the right central/temporal. Patient was started on Keppra. Patient at present on norepinephrine 0.06 mcg/kg per minute. Also on Rocephin 1 g. Patient has been off propofol since 5:45 AM. He is on CPAP, tolerating wel l. He withdraws to pain per nurse report. No obvious seizure-like activity. Some of the workup during his hospital visit consisted of: He is having episodes of hypotensive 70-80 over 40-50s and also his pulse ox was as low as 81% liters. Most recent sodium is trended up at 133, potassium is 5.9, glucose is 170s to 200s, AST ALT was within normal limits Plasma lactic acid vein is 2.8 and most recent is 1.3. TSH as a 7.090. Ammonia is 25. CT head is reported as similar mild generalized atrophy. No acute intracranial abnormality seen. I personally reviewed CT head and agree there is no acute or subacute ischemia or bleed. Objective - Vital Signs Vital signs: Vital Signs Temp 97.7 F 07/30/23 12:50 Pulse 81 07/30/23 12:50 Resp 22 07/30/23 12:50 BP 133/55 07/30/23 12:50 Pulse Ox 93 L 07/30/23 11:15 FiO2 55 07/30/23 11:00 Intake & Output 07/29/23 07/30/23 07/30/23 18:59 06:59 18:59 Intake Total 4082.627 5653.358 965.839 Output Total 0 0 900 Balance 0815.835 9967.358 65.839 Weight 127.4 kg 127.4 kg Intake: IV 600 650 200 Sodium Chloride 0.9% 1, 600 650 200 000 ml @ 50 mls/hr IV . Q20H COUNTS INCLUDE 234 BEDS AT THE [facility] Rx#:[id number] Intake, IV Titration 591.906 461.358 175.839 Amount Norepinephrine 4 mg In 393.395 360.661 175.839 Sodium Chloride 0.9% 250 ml @ 0.03 MCG/KG/MIN 13. 361 mls/hr IV .Q19H1M [facility] Rx#:[id number] cefTRIAXone 1 gm In 50 Sodium Chloride 0.9% 50 ml @ 100 mls/hr IVPB Q24HR [facility] Rx#:[id number] propofoL 1,000 mg In 148.511 100.697 Empty Bag 1 bag @ 15 MCG/ KG/MIN 10.52 mls/hr IV . Q9H31M [facility] Rx#:[id number] Tube Feeding 280 440 160 Hemodialysis 400 Other 60 30 Output: Urine 0 0 0 Hemodialysis 900 Other: Voiding Method External Catheter # Voids 1 1 ABP, PAP, CO, CI - Last Documented Arterial Blood Pressure 133/55 - Exam Patient is intubated, on CPAP mode. Patient comatose, with GCS of 3 (E1, V1, M1). Patient slightly moves his head to painful stimuli, but did not withdraw his extremities. Pupils are equal, round and reacting. Gaze is slightly up words. No obvious seizure-like activity. Tone is equal bilaterally. Reflexes are absent Patient does not respond to fine touch are painful stimuli, except as mentioned above. - Labs CBC & Chem 7: 07/30/23 05:49 07/30/23 05:49 Labs: Abnormal Lab Results - Last 24 Hours (Table) 07/29/23 07/29/23 07/30/23 Range/Units 16:43 23:40 05:40 RBC (4.30-5.90) m/uL Hgb (13.0-17.5) gm/dL Hct (39.0-53.0) % MCV (80.0-100.0) fL MCHC (31.0-37.0) g/dL RDW (11.5-15.5) % Macrocytosis ABG pCO2 33 L (35-45) mmHg ABG pO2 80 L (83-108) mmHg Sodium (137-145) mmol/L Carbon Dioxide (22-30) mmol/L BUN (9-20) mg/dL Creatinine (0.66-1.25) mg/dL Glucose (74-99) mg/dL POC Glucose (mg/dL) 170 H 139 H (70-110) mg/dL 07/30/23 07/30/23 07/30/23 Range/Units 05:49 05:49 06:28 RBC 3.18 L (4.30-5.90) m/uL Hgb 10.1 L (13.0-17.5) gm/dL Hct 33.3 L (39.0-53.0) % MCV 104.9 H (80.0-100.0) fL MCHC 30.3 L (31.0-37.0) g/dL RDW 20.1 H (11.5-15.5) % Macrocytosis Marked A ABG pCO2 (35-45) mmHg ABG pO2 (83-108) mmHg Sodium 132 L (137-145) mmol/L Carbon Dioxide 18 L (22-30) mmol/L BUN 38 H (9-20) mg/dL Creatinine 3.54 H (0.66-1.25) mg/dL Glucose 158 H (74-99) mg/dL POC Glucose (mg/dL) 159 H (70-110) mg/dL 07/30/23 Range/Units 11:45 RBC (4.30-5.90) m/uL Hgb (13.0-17.5) gm/dL Hct (39.0-53.0) % MCV (80.0-100.0) fL MCHC (31.0-37.0) g/dL RDW (11.5-15.5) % Macrocytosis ABG pCO2 (35-45) mmHg ABG pO2 (83-108) mmHg Sodium (137-145) mmol/L Carbon Dioxide (22-30) mmol/L BUN (9-20) mg/dL Creatinine (0.66-1.25) mg/dL Glucose (74-99) mg/dL POC Glucose (mg/dL) 140 H (70-110) mg/dL Microbiology - Last 24 Hours (Table) 07/28/23 04:41 Gram Stain - Final Sputum Sputum Culture - Final Assessment and Plan Assessment: This is a 78 y/o gentleman with multiple medical problems who presents to ED on 07/27/2023 because of generalized weakness and a fall. He had difficulty getting out of chair to bathroom. In our facility at 12:30am on 07/28/2023 he had cardiopulmonary arrest, with downtime lasting 14 minutes. Acute cardiopulmonary arrest lasting 14 minutes. He was in PEA per nursing staff. 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 Some limitation since on sedation (IV Propofol). On examination has brainstem reflexes (breathing over the vent, open eyes and has intact gag/cough). CT head is negative for acute/subacute changes. Also component of encephalopathy due to metabolic and hypoxic encephalopathy. Hypotensive on epinephrine Diabetes mellitus that is on going History of Cardiomyopathy Sleep apnea History of atrial fibrillation on eliquis Chronic renal failure on hemodialysis Plan: EEG reviewed by Dr. Marcos revealed background slowing, suggestive of severe encephalopathy. Rare epileptiform discharges over the right central temporal region increases the risk for seizure. Otherwise no electrographic seizure was recorded. Clinical correlation recommended. Dr. Marcos started patient on K eppra. Patient has abnormal thyroid and hypotensive episodes and we'll defer the management to the primary/ICU team. We'll defer the rest of the medical management to primary and other specialist Condition condition is a guarded. Patient is off sedation since 5:45 AM, but no significant meaningful response noticed yet. We will continue to follow. Family members not present at this time.
[2023-07-30] MEDS: SUCRALFATE 1 GM TAB PO SCH ×2 (16:49→20:23)
--- NOTE | 2023-07-30 17:05 | CA ---
Transthoracic Echo Report Name: Tristian Galloway Age: 78 Gender: M : 1945 Exam Date: 07/30/2023 11:45 Exam Location: [place] [facility] Ht (in): 72 Wt (lb): 280 Ordering Physician: Cesar Avila MD ([id number]) Attending/Referring Phys: [employer] Supervisor Delano Rivera Procedure CPT: Indications: Cardiac arrest 07/28 Cardiac Hx: Technical Quality: Very technically difficult study Contrast 1: Definity Total Dose (mL): 2 Contrast 2: Total Dose (mL): MEASUREMENTS (Male / Female) Normal Values 2D ECHO LV Diastolic Diameter PLAX 4.3 cm 4.2 - 5.9 / 3.9 - 5.3 cm LV Systolic Diameter PLAX 3.6 cm IVS Diastolic Thickness 1.4 cm 0.6 - 1.0 / 0.6 - 0.9 cm LVPW Diastolic Thickness 1.5 cm 0.6 - 1.0 / 0.6 - 0.9 cm LV Relative Wall Thickness 0.7 RV Internal Dim ED PLAX 4.0 cm FINDINGS Left Ventricle Normal LV size, Mild concentric hypertrophy. Septal Akinesis with periods of paradoxal motion. Left ventricular ejection fraction is estimated at _35-40 %. Right Ventricle Severe right ventricular dilatation. Right Atrium Left Atrium Mitral Valve Aortic Valve Tricuspid Valve Pulmonic Valve Pericardium Aorta CONCLUSIONS Technically dificult, Limited views. Moderate to severe LV systolic dysfunction with an ejection fraction of 35% Septum appears hypokinetic Right ventricle is dilated Previewed by: Dr. Jeffrey Matos MD (Electronically Signed) Final Date: 30 July 2023 17:05
[2023-07-30 17:44] LABS: Glucose,Whole Blood 192 mg/dL (70-110)
[2023-07-30] MEDS: ATORVASTATIN 10 MG TAB PO SCH (20:02)
--- NOTE | 2023-07-30 22:39 | P.PN ---
Subjective 78-year-old white male with history of atrial fibrillation, hypertension, hyperlipidemia, diabetes mellitus, chronic renal failure/chronic kidney disease on hemodialysis, chronic diastolic CHF with moderate to severe tricuspid regurgitation, pulmonary hypertension, obstructive sleep apnea, was brought into the ER with mostly history of weakness and falling easily. Workup completed in ED including blood work reveals WBC of 9.2, hemoglobin of 10.8 and platelet count of 183, sodium 132, potassium level wasn't done due to hemolyzed specimen, BUN/creatinine of 45/1.43 and blood glucose of 176, UA is positive for blood and leukocyte esterase; Patient was admitted for further evaluation of weakness/falls She does currently receiving dialysis; awake and alert; not reporting any complaints -----Patient was on the medical floor, and around 12:30 AM last night, patient had a sudden cardiac arrest. And TRISHA RAYO was called. Patient received 3 A of epinephrine and 1 amp of bicarb, his down time was felt to be about 14 minutes of CPR. In the meantime the patient was intubated, and placed on mechanical ventilation. CT of the brain is pending, neurologic consultation is pending, chest x-ray showed mostly mild interstitial edema. 07/29/2023 Patient is seen and evaluated in ICU; remains intubated Vital signs blood pressure of 102/60, pulse 74 O2 saturation 97% -- Patient had cardiopulmonary arrest with PE and lasting about 14 minutes; concern about anoxic encephalopathy versus brain injury -- Nephrology on board; CT of the head is ordered with stat EEG -- Intensive care service on board for vent management; remains on hemodialysis -- Antibiotics in form of ceftriaxone -- Patient has been placed on nutritional support 07/30/2023 Patient remains in the ICU sedated and intubated with him the/critical care team followed closely Name is been followed closely by neurosurgery service for possibly Anoxic brain injury Tenderness on gentle hydration with normal saline and 50 mL, Rocephin, home dose of full liquids 5 mg for his chronic atrial fibrillation Creatinine today 3.5-Arabic close to baseline compared to 4.4 upon admission. Echocardiogram showed ejection fraction 35% and septum is hypokinetic Objective - Vital Signs Vital signs: Vital Signs Temp 97.7 F 07/30/23 12:50 Pulse 81 07/30/23 13:15 Resp 23 07/30/23 13:15 BP 103/65 07/30/23 13:15 Pulse Ox 94 L 01/08/24 13:15 FiO2 55 07/30/23 13:00 Intake & Output 07/29/23 07/30/23 07/30/23 18:59 06:59 18:59 Intake Total 6278.287 9757.358 1333.839 Output Total 0 0 900 Balance 9735.801 7682.358 433.839 Weight 127.4 kg 127.4 kg Intake: IV 600 650 350 Sodium Chloride 0.9% 1, 600 650 300 000 ml @ 50 mls/hr IV . Q20H [facility] Rx#:[id number] cefTRIAXone 1 gm In 50 Sodium Chloride 0.9% 50 ml @ 100 mls/hr IVPB Q24HR [facility] Rx#:[id number] Intake, IV Titration 591.906 461.358 175.839 Amount Norepinephrine 4 mg In 393.395 360.661 175.839 Sodium Chloride 0.9% 250 ml @ 0.03 MCG/KG/MIN 13. 361 mls/hr IV .Q19H1M [facility] Rx#:[id number] cefTRIAXone 1 gm In 50 Sodium Chloride 0.9% 50 ml @ 100 mls/hr IVPB Q24HR [facility] Rx#:[id number] propofoL 1,000 mg In 148.511 100.697 Empty Bag 1 bag @ 15 MCG/ KG/MIN 10.52 mls/hr IV . Q9H31M [facility] Rx#:[id number] Tube Feeding 280 440 228 Hemodialysis 400 Other 60 180 Output: Urine 0 0 0 Hemodialysis 900 Other: Voiding Method External Catheter # Voids 1 1 ABP, PAP, CO, CI - Last Documented Arterial Blood Pressure 114/50 - Exam GENERAL: The patient is an sedated HEENT: Pupils are round and equally reacting to light. EOMI. No scleral icterus. No conjunctival pallor. Normocephalic, atraumatic. No pharyngeal erythema. No thyromegaly. CARDIOVASCULAR: S1 and S2 present. No murmurs, rubs, or gallops. PULMONARY: Chest is clear to auscultation, no wheezing , no crackles. ABDOMEN: Soft, nontender, nondistended, normoactive bowel sounds. No palpable organomegaly. MUSCULOSKELETAL: No joint swelling or deformity. EXTREMITIES: No cyanosis, clubbing, or pedal edema. NEUROLOGICAL: Gross neurological examination did not reveal any focal deficits. SKIN: No rashes. no petechiae. - Labs CBC & Chem 7: 07/30/23 05:49 07/30/23 05:49 Labs: Abnormal Lab Results - Last 24 Hours (Table) 07/29/23 07/29/23 07/30/23 Range/Units 16:43 23:40 05:40 RBC (4.30-5.90) m/uL Hgb (13.0-17.5) gm/dL Hct (39.0-53.0) % MCV (80.0-100.0) fL MCHC (31.0-37.0) g/dL RDW (11.5-15.5) % Macrocytosis ABG pCO2 33 L (35-45) mmHg ABG pO2 80 L (83-108) mmHg Sodium (137-145) mmol/L Carbon Dioxide (22-30) mmol/L BUN (9-20) mg/dL Creatinine (0.66-1.25) mg/dL Glucose (74-99) mg/dL POC Glucose (mg/dL) 170 H 139 H (70-110) mg/dL 07/30/23 07/30/23 07/30/23 Range/Units 05:49 05:49 06:28 RBC 3.18 L (4.30-5.90) m/uL Hgb 10.1 L (13.0-17.5) gm/dL Hct 33.3 L (39.0-53.0) % MCV 104.9 H (80.0-100.0) fL MCHC 30.3 L (31.0-37.0) g/dL RDW 20.1 H (11.5-15.5) % Macrocytosis Marked A ABG pCO2 (35-45) mmHg ABG pO2 (83-108) mmHg Sodium 132 L (137-145) mmol/L Carbon Dioxide 18 L (22-30) mmol/L BUN 38 H (9-20) mg/dL Creatinine 3.54 H (0.66-1.25) mg/dL Glucose 158 H (74-99) mg/dL POC Glucose (mg/dL) 159 H (70-110) mg/dL 07/30/23 Range/Units 11:45 RBC (4.30-5.90) m/uL Hgb (13.0-17.5) gm/dL Hct (39.0-53.0) % MCV (80.0-100.0) fL MCHC (31.0-37.0) g/dL RDW (11.5-15.5) % Macrocytosis ABG pCO2 (35-45) mmHg ABG pO2 (83-108) mmHg Sodium (137-145) mmol/L Carbon Dioxide (22-30) mmol/L BUN (9-20) mg/dL Creatinine (0.66-1.25) mg/dL Glucose (74-99) mg/dL POC Glucose (mg/dL) 140 H (70-110) mg/dL Microbiology - Last 24 Hours (Table) 07/28/23 04:41 Gram Stain - Final Sputum Sputum Culture - Final Assessment and Plan Assessment: 1. Weakness/ debility; likely multifactorial; PT/OT consulted 2. UTI; patient has been placement IV Rocephin pending UA/culture and sensitivity 3. ESRD/HD; nephrology on board; patient had a Sunday dialysis schedule 4. Anemia of chronic disease; hemoglobin at baseline; patient receives Aranesp weekly and iron sulfate 325 mg daily 5. Diabetes mellitus type 2; patient takes glipizide; we will hold off on oral hypoglycemic therapy; monitor Accu-Cheks before meals and at bedtime with insulin sliding scale 6. Atrial fibrillation; patient is rate controlled on amiodarone 200 mg daily; continue with anticoagulation therapy 7. Hyperlipidemia; Lipitor 40 mg by mouth daily at bedtime 8. Hyperuricemia/gout; allopurinol 300 mg daily DVT prophylaxis; SCDs CODE STATUS; full code
[2023-07-31 00:02] LABS: Glucose,Whole Blood 189 mg/dL (70-110)
[2023-07-31] MEDS: NOREPINEPHRINE 4 MG in SODIUM CHLORIDE 0.9% 250 ML IV SCH ×3 (00:08→11:00)
[2023-07-31] MEDS: INSULIN ASPART (NovoLOG) 100 UNIT/ML VIAL SQ SCH ×4 (00:20→18:15)
[2023-07-31 05:41] LABS: Glucose,Whole Blood 185 mg/dL (70-110)
[2023-07-31] MEDS: SODIUM CHLORIDE 0.9% 1,000 ML IV SCH (05:47)
[2023-07-31 06:09] LABS: ABG Base Excess 2.5 mmol/L; ABG HCO3 26 mmol/L (21-25); ABG Oxygen Saturation 96.7 % (94-97); ABG PCO2 36 mmHg (35-45); ABG PH 7.47 (7.35-7.45); ABG PO2 83 mmHg (83-108); ABG TCO2 27 mmol/L (19-24); Allen Test Performed? Yes
[2023-07-31] MEDS: MIDODRINE 5 MG TAB PO SCH ×3 (06:31→18:15)
--- NOTE | 2023-07-31 07:47 | P.PN ---
Subjective Progress Note Date: 07/31/23 Principal diagnosis: Cardiac arrest The patient is a 78-year-old gentleman with history of cardiomyopathy with the last echo showed an EF around 35% and also permanent atrial fibrillation and also permanent pacemaker and morbid obesity and sleep apnea and COPD on multiple comorbid conditions. He was admitted to the hospital with generalized weakness and had a cardiac arrest on the floor was pulseless electrical activity required CPR for some time. Subsequently he was intubated and he was brought to the intensive care unit. Beside that the patient currently is in renal failure 07/30/2023 The patient was seen and evaluated this morning. He is currently unstable and requiring vasopressors. He is in nature fibrillation with overall controlled heart rate on the current medical regimen. He is on oral anticoagulation as well. He is of any sedation at this point from the morning. We'll see the patient would be able to wake up and there is no evidence of any anoxic encephalopathy. This too early. At this point. No echo was ordered since the patient had cardiac arrest we'll obtain an echocardiogram. The examination is remarkable for patient intubated on mechanical ventilation who is morbidly obese with stable vital signs of course knowing that he is on vasopressors at this point. The chest examination is remarkable for diminished breathing sounds bilaterally in the cardiovascular examination is remarkable for regular rhythm with distant heart sounds and the extremities has mild bilateral lower extremity edema. 07/31/2023 The patient was evaluated this morning. He continues to be intubated on mechanical ventilation. He continues to be hemodynamically unstable and requiring vasopressors. Beside that he is not waking up in spite of not receiving any sedation at this point. She continues to be on oral anticoagulation with liquids. The echo revealed impaired LV function was EF around 35% with septal hypokinesia. His first troponin was borderline elevated going to obtain 2 more sets of troponin. Anyway were not made to pursue any invasive workup on him at this point to we know what is neurology checks status and neurology is on the case. We'll follow-up with the creatinine. The examination is remarkable for the patient's being intubated on mechanical ventilation with upper extremities and lower extremities edema and distant heart sounds with regular rate and rhythm and initially breathing sounds bilaterally Assessment Cardiac arrest was pulseless electrical activity Chronic atrial fibrillation with controlled heart rate Cardiomyopathy Renal failure Possible anoxic encephalopathy Permanent pacemaker Multiple comorbid conditions Plan Continue the current medical regimen Follow-up with the neurology evaluation Obtain 2 more sets of serial cardiac enzymes Further recommendation to follow Objective - Vital Signs Vital signs: Vital Signs Temp 99.6 F 07/31/23 04:00 Pulse 70 07/31/23 06:15 Resp 20 07/31/23 06:15 BP 93/56 07/31/23 06:15 Pulse Ox 96 07/31/23 06:15 FiO2 55 07/31/23 04:00 Intake & Output 07/30/23 07/31/23 07/31/23 18:59 06:59 18:59 Intake Total 2049.644 1490.035 Output Total 900 0 Balance 4421.927 0639.035 Weight 127.4 kg 131.3 kg Intake: IV 633 280 Pressure Bag (0.9 Sodium 33 30 Chloride) Sodium Chloride 0.9% 1, 550 250 000 ml @ 50 mls/hr IV . Q20H [facility] Rx#:[id number] cefTRIAXone 1 gm In 50 Sodium Chloride 0.9% 50 ml @ 100 mls/hr IVPB Q24HR [facility] Rx#:[id number] Intake, IV Titration 333.644 490.035 Amount Norepinephrine 4 mg In 333.644 490.035 Sodium Chloride 0.9% 250 ml @ 0.03 MCG/KG/MIN 13. 361 mls/hr IV .Q19H1M [facility] Rx#:[id number] Tube Feeding 503 660 Hemodialysis 400 Other 180 60 Output: Urine 0 0 Hemodialysis 900 Other: Voiding Method External Catheter External Catheter ABP, PAP, CO, CI - Last Documented Arterial Blood Pressure 109/57 - Labs CBC & Chem 7: 07/30/23 05:49 07/30/23 05:49 Labs: Abnormal Lab Results - Last 24 Hours (Table) 07/30/23 07/30/23 07/31/23 Range/Units 11:45 17:43 00:01 ABG pH (7.35-7.45) ABG HCO3 (21-25) mmol/L ABG Total CO2 (19-24) mmol/L POC Glucose (mg/dL) 140 H 192 H 189 H (70-110) mg/dL 07/31/23 07/31/23 Range/Units 05:39 06:03 ABG pH 7.47 H (7.35-7.45) ABG HCO3 26 H (21-25) mmol/L ABG Total CO2 27 H (19-24) mmol/L POC Glucose (mg/dL) 185 H (70-110) mg/dL Microbiology - Last 24 Hours (Table) 07/28/23 04:41 Gram Stain - Final Sputum Sputum Culture - Final
[2023-07-31 08:10] LABS: Anisocytosis Slight; Basophils % (A) 0 %; Eosinophils # (A) 0.1 k/uL (0-0.7); Eosinophils % (A) 1 %; HCT 31.6 % (39.0-53.0); HGB 9.7 gm/dL (13.0-17.5); Hypochromasia Marked; Lymphocytes # (A) 1.2 k/uL (1.0-4.8); Lymphocytes % (A) 12 %; MCH 32.3 pg (25.0-35.0); MCHC 30.8 g/dL (31.0-37.0); MCV 104.7 fL (80.0-100.0); Macrocytosis Marked; Mean Platelet Volume 9.5; Monocytes # (A) 0.9 k/uL (0-1.0); Monocytes % (A) 9 %; Neutrophils # (A) 7.1 k/uL (1.3-7.7); Neutrophils % (A) 75 %; Platelet Count 177 k/uL (150-450); Poikilocytosis Slight; RBC 3.02 m/uL (4.30-5.90); RDW 19.9 % (11.5-15.5); WBC 9.4 k/uL (3.8-10.6)
[2023-07-31] MEDS: APIXABAN 5 MG TAB PO SCH ×2 (08:30→21:39)
[2023-07-31] MEDS: SUCRALFATE 1 GM TAB PO SCH ×2 (08:30→21:39)
[2023-07-31] MEDS: AMIODARONE 100 MG TAB PO SCH (08:30)
[2023-07-31] MEDS: MULTIVITAMINS, THERA 1 EACH TAB PO SCH (08:30)
[2023-07-31] MEDS: allopurinoL 300 MG TAB PO SCH (08:30)
[2023-07-31] MEDS: FLUDROCORTISONE 0.1 MG TAB PO SCH (08:30)
[2023-07-31] MEDS: PANTOPRAZOLE 40 MG TABLET PO SCH (08:30)
[2023-07-31 08:31] LABS: African American GFR (CKD) 24 (>60 ml/min/1.73 sqM); Anion Gap 13 mmol/L; Blood Urea Nitrogen 33 mg/dL (9-20); Calcium 8.4 mg/dL (8.4-10.2); Carbon Dioxide 22 mmol/L (22-30); Chloride 100 mmol/L (98-107); Glucose 196 mg/dL (74-99); Non-African American GFR(CKD) 20 (>60 ml/min/1.73 sqM); Potassium 4.2 mmol/L (3.5-5.1); Sodium 135 mmol/L (137-145)
[2023-07-31] MEDS: CHLORHEXIDINE GLUCONATE 15 ML CUP MUCOUS MEM SCH ×2 (08:31→21:39)
[2023-07-31] MEDS: DOCUSATE ORAL SOLN 100 MG/10 ML CUP PO SCH ×2 (08:31→21:39)
[2023-07-31] MEDS: FERROUS SULFATE 325 MG TAB PO SCH (08:31)
[2023-07-31] MEDS: levETIRAcetam IV 500 MG/5 ML VIAL IVP SCH ×2 (08:32→21:39)
[2023-07-31] MEDS: ACETAMINOPHEN TAB 325 MG TAB PO SCH ×2 (09:00→21:38)
--- NOTE | 2023-07-31 09:22 | XR ---
EXAM: XR chest 1V portable CLINICAL INDICATION:Male, 78 years old with history of mechanical ventilation; [facility] COMPARISON: 07/30/2023 TECHNIQUE: Chest single view. FINDINGS: Lines/tubes/devices: EKG leads over the chest, can interfere with interpretation. ET tube tip 4.3 cm above the dash. Right IJ tunneled dialysis catheter with tips over the inferior SVC unchanged. Stab le position of left chest dual-lead pacemaker. NG/OG tube traverses below the diaphragm, extending in to the left abdomen with the tip beyond the field of view. Cardiomediastinum: Cardiac silhouette appears stable, moderately enlarged Atherosclerotic calcifications of the aorta with mild tortuosity. Vasculature: Mild central congestion with interstitial opacities, unchanged. Lungs/pleura: Similar bibasilar pleural/parenchymal opacities suggesting small effusions with atelectasis/airspace disease. No visible pneumothorax. Bones/soft tissues: Bony thorax appears grossly unchanged as seen. Regional soft tissues appear unremarkable. IMPRESSION: 1. Lines and tubes in place, as above. 2. Stable cardiopulmonary status.
[2023-07-31 10:21] LABS: Polychromasia Present; Target Cells Present
--- NOTE | 2023-07-31 10:53 | P.PN ---
Subjective Progress Note Date: 07/31/23 This is a 78-year-old white male with history of multiple medical problems including chronic renal failure/chronic kidney disease on hemodialysis, yesterday the patient was brought into the ER with mostly you days history of weakness and falling easily. Patient was admitted for further evaluation of his weakness, and he was seen only by nephrology for his chronic kidney disease and he was initiated on hemodialysis which is mostly given Wednesdays and Fridays. Patient is also known to have history of chronic diastolic congestive heart failure with moderate to severe tricuspid regurgitation and pulmonary hypertension. In addition to this the patient has obstructive sleep apnea, and he is maintained on AVAPS at home. Patient was on the medical floor, and around 12:30 AM last night, patient had a sudden cardiac arrest. And TRISHA RAYO was called. Patient received 3 A of epinephrine and 1 amp of bicarb, his down time was felt to be about 14 minutes of CPR. In the meantime the patient was intubated, and placed on mechanical ventilation. Overnight the patient remains on mechanical ventilation, and I saw this morning. He is now on assist control rate of 2010 volume 500 FiO2 was 60% and PEEP of 8. ABG showed a pO2 of 112 pCO2 35 pH of 7.48. Patient is unresponsive to any stimuli except he seems to withdraw to painful stimuli only. And he is on norepinephrine at 0.06 mg/kg/m propofol 25 mg/kg/m she is also on IV fluid at 1 50 mL per hour I cut it down to [address] of the brain is pending, neurologic consultation is pending, chest x-ray showed mostly mild interstitial edema. Patient may or may not get dialysis today, this will be decided upon by nephrology on the case. After evaluating the patient, I recommended central venous access, and an arterial line was placed and the patient. Labs today WBC count is 10.2 hemoglobin 10.0, basic metabolic profile is normal except for potassium of 5.9 BUN is 29 creatinine 3.4, troponin is 0.063, cardiac consultation was initiated today, neurological consultation was also initiated, and I'm recommending that we send the patient down for CT of the brain without contrast today. Education is at present include amiodarone 200 mg daily eliquis 12 mg twice a day Lipitor, ceftriaxone, Aranesp, Dilaudid, Florinef, sliding scale insulin, midodrine, and DuoNeb updrafts 4 times a day and when necessary patient is also on Protonix, he was also placed on lokelma by nephrology for his hyperkalemia. Reevaluated 07/29/23, patient remains in the ICU, intubated and mechanically ventilated. On assist control rate of 20-2500 FiO2 50% PEEP of 8, ABG showed a pO2 of 84 pCO2 35 pH of 7.46. His FiO2 was increased earlier by respiratory to 60%, however I recommended PEEP up to 10 and cutting down the FiO2 down to 55% otherwise the remaining vent settings remained the same. Patient remains on norepinephrine at 0.08 mcg/kg/m propofol at 25 mg/kg/m vital a PE at 30 mL/m and 0.9 at 50 mL per hour. Patient remains unresponsive, he only withdraws to painful stimuli, CT of the brain yesterday was unremarkable. EEG is pending his left brachial arterial line was lost yesterday, went ahead and placed another arterial line today and the right radial artery. Patient remains on ceftriaxone and eliquis. Today my recommendation is to have sedation interruption and assess mental status again, patient was seen by neurology and recommending EEG. Patient underwent hemodialysis yesterday, no fluid was removed, WBC count today is 9 hemoglobin 10.1 and platelets are 1 85,000. Basic metabolic profile is normal bicarb is 21 BUN is 27 creatinine 2.88. Patient remains on medications as listed including allopurinol, amiodarone, eliquis, atorvastatin, ceftriaxone, propofol, Aranesp, Colace, ferrous sulfate, Florinef, and Dilaudid. Patient is also on Protonix, Zofran as needed, and morphine sulfate as needed as well as m idodrine and insulin as per scheduled Progress note dated 07/30/2023. The patient was admitted to the emergency department on July 27, and was intubated on July 28. The patient has history of multiple medical problems including chronic renal failure, and chronic kidney disease, on hemodialysis, and apparently had been very weak at home, and falling. The patient remains on the mechanical ventilator. Ventilator settings include the volume assist control, rate 20, tidal volume 500, FiO2 55%, but 10. Blood gases show pO2 of 80, pCO2 33, and a pH is 7. or 5. The patient continues on propofol at 10 mics per kilogram per minute. Although recently has been turned off by the nurse, saline at 50 mL an hour, norepinephrine at 12 mcg/m, and vital high protein at 40 mL an hour, with a goal of 48. We will attempt a spontaneous breathing trial on this patient, with pressure support of 10, CPAP of 5. I'm not hopeful that the patient is ready for weaning given the fact that he still on norepinephrine at 12 mcg/m, insulin requiring FiO2 55%, with a PEEP of 10. PO2 was only 80. White count 9.1, hemoglobin 10.1, hematocrit 33.3, and platelet count 179,000. Sodium 132, potassium 4.9, chlorides 99, CO2 18, anion gap 15, BUN 38, creatinine 3.54. Chest x-ray shows a well-placed endotracheal tube, and a hemodialysis catheter. There is cardiomegaly, and small bilateral pleural effusions. The patient is seen today 07/31/2023 and follow-up in the intensive care unit. He remains intubated on the mechanical ventilator currently an assist-control mode at a rate of 20, tidal volume 500, FiO2 55% and a PEEP of 10. Morning blood gases revealed a PaO2 of 83, pCO2 36 and a pH of 7.47. He remains on normal saline 50 ML's per hour. Norepinephrine at 12 mcg/m. Being nourished with vital HP 55 ML's per hour which is goal. He has been off sedation for over 24 hours now. His only response is to withdraw from painful stimuli. X-ray shows similar bibasilar opacities suggestive of small effusions with atelectasis/airspace disease. Stable compared to previous. Sputum shows no wilson wth. White count 9.4. Hemoglobin 9.7. Platelets 177. Sodium 135. Potassium 4.2. Bicarb 22. BUN 33. Creatinine 2.86. Glucose 196. He remains on ceftriaxone. Anticoagulated with Eliquis. He did tolerate pressure support of 10 and the CPAP of 5 for 12 hours yesterday. He will be continued on hemodialysis on Sunday via permacath. Echocardiogram did reveal moderate to severe left ventricular systolic dysfunction with ejection fraction of 35%. Objective - Vital Signs Vital signs: Vital Signs Temp 98.7 F 07/31/23 08:00 Pulse 72 07/31/23 10:15 Resp 20 07/31/23 10:15 BP 99/55 07/31/23 10:15 Pulse Ox 96 07/31/23 10:15 FiO2 55 07/31/23 10:00 Intake & Output 07/30/23 07/31/23 07/31/23 18:59 06:59 18:59 Intake Total 2049.644 1490.035 377 Output Total 900 0 Balance 8782.990 1164.035 377 Weight 127.4 kg 131.3 kg Intake: IV 633 280 237 Pressure Bag (0.9 Sodium 33 30 12 Chloride) Sodium Chloride 0.9% 1, 550 250 175 000 ml @ 50 mls/hr IV . Q20H SERGEY Rx#:[id number] cefTRIAXone 1 gm In 50 50 Sodium Chloride 0.9% 50 ml @ 100 mls/hr IVPB Q24HR SERGEY Rx#:[id number] Intake, IV Titration 333.644 490.035 Amount Norepinephrine 4 mg In 333.644 490.035 Sodium Chloride 0.9% 250 ml @ 0.03 MCG/KG/MIN 13. 361 mls/hr IV .Q19H1M SERGEY Rx#:[id number] Tube Feeding 503 660 110 Hemodialysis 400 Other 180 60 30 Output: Urine 0 0 Hemodialysis 900 Other: Voiding Method External Catheter External Catheter ABP, PAP, CO, CI - Last Documented Arterial Blood Pressure 101/48 - Exam GENERAL EXAM: Intubated, unresponsive 78-year-old male patient, in no apparent distress. HEAD: Normocephalic. EYES: Normal reaction of pupils, equal size. NOSE: Clear with pink turbinates. THROAT: No erythema or exudates. NECK: No masses, no JVD. CHEST: No chest wall deformity. LUNGS: Equal air entry with no crackles, wheeze, rhonchi or dullness. CVS: S1 and S2 normal with no audible murmur, regular rhythm. ABDOMEN: No hepatosplenomegaly, normal bowel sounds, no guarding or rigidity. SPINE: No scoliosis or deformity SKIN: No rashes CENTRAL NERVOUS SYSTEM: Withdraws to pain on full stimuli, otherwise unresponsive, tone is normal in all 4 extremities. EXTREMITIES: There is 1+ peripheral edema. No clubbing, no cyanosis. Peripheral pulses are intact. - Labs CBC & Chem 7: 07/31/23 08:00 07/31/23 08:00 Labs: Abnormal Lab Results - Last 24 Hours (Table) 07/30/23 07/30/23 07/31/23 Range/Units 11:45 17:43 00:01 RBC (4.30-5.90) m/uL Hgb (13.0-17.5) gm/dL Hct (39.0-53.0) % MCV (80.0-100.0) fL MCHC (31.0-37.0) g/dL RDW (11.5-15.5) % Macrocytosis ABG pH (7.35-7.45) ABG HCO3 (21-25) mmol/L ABG Total CO2 (19-24) mmol/L Sodium (137-145) mmol/L BUN (9-20) mg/dL Creatinine (0.66-1.25) mg/dL Glucose (74-99) mg/dL POC Glucose (mg/dL) 140 H 192 H 189 H (70-110) mg/dL Troponin I (0.000-0.034) ng/mL 07/31/23 07/31/23 07/31/23 Range/Units 05:39 06:03 08:00 RBC 3.02 L (4.30-5.90) m/uL Hgb 9.7 L (13.0-17.5) gm/dL Hct 31.6 L (39.0-53.0) % MCV 104.7 H (80.0-100.0) fL MCHC 30.8 L (31.0-37.0) g/dL RDW 19.9 H (11.5-15.5) % Macrocytosis Marked A ABG pH 7.47 H (7.35-7.45) ABG HCO3 26 H (21-25) mmol/L ABG Total CO2 27 H (19-24) mmol/L Sodium (137-145) mmol/L BUN (9-20) mg/dL Creatinine (0.66-1.25) mg/dL Glucose (74-99) mg/dL POC Glucose (mg/dL) 185 H (70-110) mg/dL Troponin I (0.000-0.034) ng/mL 07/31/23 07/31/23 Range/Units 08:00 08:00 RBC (4.30-5.90) m/uL Hgb (13.0-17.5) gm/dL Hct (39.0-53.0) % MCV (80.0-100.0) fL MCHC (31.0-37.0) g/dL RDW (11.5-15.5) % Macrocytosis ABG pH (7.35-7.45) ABG HCO3 (21-25) mmol/L ABG Total CO2 (19-24) mmol/L Sodium 135 L (137-145) mmol/L BUN 33 H (9-20) mg/dL Creatinine 2.86 H (0.66-1.25) mg/dL Glucose 196 H (74-99) mg/dL POC Glucose (mg/dL) (70-110) mg/dL Troponin I 0.054 H* (0.000-0.034) ng/mL Microbiology - Last 24 Hours (Table) 07/28/23 04:41 Gram Stain - Final Sputum Sputum Culture - Final Assessment and Plan Assessment: Status post cardiac arrest, with CPR and return of spontaneous circulation, with a 14 minute downtime. Patient had PEA Rule out anoxic brain injury. Remains unresponsive despite 24 hours without sedation Status post intubation and mechanical ventilation, 07/28/2023 Chronic diastolic CHF Severe pulmonary hypertension Acute metabolic acidosis, secondary to chronic kidney disease Possible orthostatic hypotension, with history of recurrent falls Hyperkalemia, secondary to chronic kidney disease Anemia of chronic disease History of sleep apnea syndrome History of sepsis and septic shock Chronic atrial fibrillation Type 2 diabetes with diabetic nephropathy History of sick sinus syndrome, status post pacemaker implantation Plan: The patient was seen and evaluated Chest x-ray, labs, ABGs and medications reviewed The patient remains unresponsive off sedation Dr. Marcos spoke with the patient's in detail If no improvement we'll plan for tracheostomy tube and PEG tube placements later this week She may consider to go to comfort care versus procedures In the interim we'll continue with full supportive care We'll continue with weaning trials as tolerated We'll continue to follow I have personally seen and examined the patient, performed the documentation and the assessment and plan as written. Number of minutes spent on the visit: 15.
--- NOTE | 2023-07-31 11:10 | P.PN ---
Subjective Patient is seen for follow-up for end-stage renal disease. Patient remains on the vent. Sedation has been off since yesterday earning. There is no improvement in mentation. Objective - Vital Signs Vital signs: Vital Signs Temp 98.7 F 07/31/23 08:00 Pulse 72 07/31/23 10:15 Resp 20 07/31/23 10:15 BP 99/55 07/31/23 10:15 Pulse Ox 96 07/31/23 10:15 FiO2 55 07/31/23 10:00 Intake & Output 07/30/23 07/31/23 07/31/23 18:59 06:59 18:59 Intake Total 2049.644 1490.035 610.066 Output Total 900 0 Balance 6996.905 1503.035 610.066 Weight 127.4 kg 131.3 kg Intake: IV 633 280 237 Pressure Bag (0.9 Sodium 33 30 12 Chloride) Sodium Chloride 0.9% 1, 550 250 175 000 ml @ 50 mls/hr IV . Q20H SERGEY Rx#:[id number] cefTRIAXone 1 gm In 50 50 Sodium Chloride 0.9% 50 ml @ 100 mls/hr IVPB Q24HR SERGEY Rx#:[id number] Intake, IV Titration 333.644 490.035 233.066 Amount Norepinephrine 4 mg In 333.644 490.035 233.066 Sodium Chloride 0.9% 250 ml @ 0.03 MCG/KG/MIN 13. 361 mls/hr IV .Q19H1M SERGEY Rx#:[id number] Tube Feeding 503 660 110 Hemodialysis 400 Other 180 60 30 Output: Urine 0 0 Hemodialysis 900 Other: Voiding Method External Catheter External Catheter ABP, PAP, CO, CI - Last Documented Arterial Blood Pressure 101/48 - Exam Patient is on the vent. Withdraws to painful stimulus Examination of the heart S1 and S2 Examination of the lungs decreased breath sounds at the bases Abdomen is soft obese Examination lower extremity shows chronic skin skin changes 1+ edema noted. 2+ edema noted in bilateral upper extremities. - Labs CBC & Chem 7: 07/31/23 08:00 07/31/23 08:00 Labs: Abnormal Lab Results - Last 24 Hours (Table) 07/30/23 07/30/23 07/31/23 Range/Units 11:45 17:43 00:01 RBC (4.30-5.90) m/uL Hgb (13.0-17.5) gm/dL Hct (39.0-53.0) % MCV (80.0-100.0) fL MCHC (31.0-37.0) g/dL RDW (11.5-15.5) % Macrocytosis ABG pH (7.35-7.45) ABG HCO3 (21-25) mmol/L ABG Total CO2 (19-24) mmol/L Sodium (137-145) mmol/L BUN (9-20) mg/dL Creatinine (0.66-1.25) mg/dL Glucose (74-99) mg/dL POC Glucose (mg/dL) 140 H 192 H 189 H (70-110) mg/dL Troponin I (0.000-0.034) ng/mL 07/31/23 07/31/23 07/31/23 Range/Units 05:39 06:03 08:00 RBC 3.02 L (4.30-5.90) m/uL Hgb 9.7 L (13.0-17.5) gm/dL Hct 31.6 L (39.0-53.0) % MCV 104.7 H (80.0-100.0) fL MCHC 30.8 L (31.0-37.0) g/dL RDW 19.9 H (11.5-15.5) % Macrocytosis Marked A ABG pH 7.47 H (7.35-7.45) ABG HCO3 26 H (21-25) mmol/L ABG Total CO2 27 H (19-24) mmol/L Sodium (137-145) mmol/L BUN (9-20) mg/dL Creatinine (0.66-1.25) mg/dL Glucose (74-99) mg/dL POC Glucose (mg/dL) 185 H (70-110) mg/dL Troponin I (0.000-0.034) ng/mL 07/31/23 07/31/23 Range/Units 08:00 08:00 RBC (4.30-5.90) m/uL Hgb (13.0-17.5) gm/dL Hct (39.0-53.0) % MCV (80.0-100.0) fL MCHC (31.0-37.0) g/dL RDW (11.5-15.5) % Macrocytosis ABG pH (7.35-7.45) ABG HCO3 (21-25) mmol/L ABG Total CO2 (19-24) mmol/L Sodium 135 L (137-145) mmol/L BUN 33 H (9-20) mg/dL Creatinine 2.86 H (0.66-1.25) mg/dL Glucose 196 H (74-99) mg/dL POC Glucose (mg/dL) (70-110) mg/dL Troponin I 0.054 H* (0.000-0.034) ng/mL Microbiology - Last 24 Hours (Table) 07/28/23 04:41 Gram Stain - Final Sputum Sputum Culture - Final Assessment and Plan Assessment: 1. End-stage renal disease maintained on hemodialysis on Sunday schedule via permacath. 2. Status post fall. No fractures noted. 3. Diabetes mellitus. 4. Metabolic acidosis secondary to chronic kidney disease. Improved. 5. Chronic diastolic CHF with moderate to severe tricuspid regurgitation and pulmonary hypertension. 6. Hyperkalemia secondary to CKD, improved post HD. Patient underwent hemodialysis July 27 and July 28, 2023. 7. Status post PEA arrest 07/28/2023 concerning for respiratory arrest while on BiPAP. 8. Anemia of chronic kidney disease maintained on Aranesp. Plan: Hemodialysis in a.m. Continue to monitor for improvement in mentation.
[2023-07-31 11:34] LABS: Glucose,Whole Blood 215 mg/dL (70-110)
[2023-07-31] MEDS: IPRATROPIUM-ALBUTEROL 3 ML NEB INHALATION SCH ×4 (12:11→23:25)
[2023-07-31] MEDS: NOREPINEPHRINE 8 MG in SODIUM CHLORIDE 0.9% 250 ML IV SCH (16:30)
--- NOTE | 2023-07-31 17:00 | CDI ---
Documentation Clarification Form Date: 07/31/2023 03:42:47 PM From: Melany Schulte RN CCDS Phone: [phone] Admit Date: 07/28/2023 07:09:00 AM Patient Name: Tristian Galloway Visit Number: [id number] Discharge Date: ATTENTION: The Clinical Documentation Specialists (CDI) and [facility] Coding Staff appreciate your assistance in clarifying documentation. Please respond to the clarification below the line at the bottom and electronically sign. The CDI & [facility] Coding staff will review the response and follow-up if needed. Please note: Queries are made part of the Legal Health Record. If you have any questions, please contact the author of this message via ITS. Dr. Santillan E Sheet There is documentation of cardiac arrest, date, 07/30 medicine note. Additional clarification is requested. History/Risk Factors: 78-year-old male presents to the ED with weakness and falling easily. Medical History: Atiral Fibrillation, COPD, DM, CHF, HLD, HTN, OA, Sleep apnea, ESRD and Dialysis. 07/27, H&P. Clinical Indicators: ED note, 07/27: patient feels significantly ill and weak here in ER. Generalized weakness, lack of energy and difficulty walking. Nephrology note 07/28: Status post PEA arrest early this morning concerning for respiratory arrest while on BiPAP 07/27 CXR: Cardiomegaly without acute pulmonary process. 07/27 Labs: Wbc 9.2, Hgb 10.8, Plt 193, Lymphocytes 0.8, Macrocytosis Marked A, NA 132, Chl 96, Carbon dioxide 16, BUN 45, Cr 4.43, GFR 12 Glucose 176; Lacitc acid 2.8, Phosphorus 5.8, Alk Phosphatase 181, Troponin 0.020 , TSH 7.090, UA Trace protein, large blood, 1+ bilirubin, Large Leukocyte esterase, RBC >182, Wbc 36, Squamous epith cells 14, mucus rare. 07/27 15:00 B/P117/64, HR 60, Temp 96.8 F Axillary, 95% 4L nasal cannula 07/27 14:00 Respiration effort short of breath, normal depth and pattern 07/27 19:12: B/P 96/49, HR 67, Temp 97.3 F Oral, RR 18, SpO2 93% 4L nasal cannula 07/28 00:20: RT CPAP pt on v30, auto cpap with a min of 4 max of 20. Pt states he is comfortable and in no distress. Treatment:07/27 0.9NS 1L IV bolus x 1, 07/27 Duoneb 6ml inhalation x 1, 07/27 Dilaudid 1mg IVP x 1, 07/27 07/31 Ceftriaxone 1gm IVPB Q24HR; 07/27 Aransep 60mcq SQ Q7D; 07/27 07/28 ACHS Novolog s/s SQ; CPR epinephrine x 3 1 amp of bicarb. Can you please clarify the etiology of Cardiac arrest? [ x ] Acute respiratory failure [ ] Other, please specify [ ] Unable to determine (Template Last Revised: September 2020) MTDD
[2023-07-31 18:09] LABS: Glucose,Whole Blood 196 mg/dL (70-110)
[2023-07-31] MEDS: ATORVASTATIN 10 MG TAB PO SCH (21:39)
[2023-08-01] MEDS: NOREPINEPHRINE 8 MG in SODIUM CHLORIDE 0.9% 250 ML IV SCH ×2 (01:04→11:03)
[2023-08-01 01:06] LABS: Glucose,Whole Blood 225 mg/dL (70-110)
[2023-08-01] MEDS: INSULIN ASPART (NovoLOG) 100 UNIT/ML VIAL SQ SCH ×4 (01:08→18:18)
[2023-08-01] MEDS: SODIUM CHLORIDE 0.9% 1,000 ML IV SCH ×2 (01:29→05:14)
[2023-08-01] MEDS: IPRATROPIUM-ALBUTEROL 3 ML NEB INHALATION SCH ×5 (03:35→19:47)
[2023-08-01 04:09] LABS: HCT 31.9 % (39.0-53.0); HGB 9.8 gm/dL (13.0-17.5); MCH 32.1 pg (25.0-35.0); MCHC 30.8 g/dL (31.0-37.0); MCV 104.2 fL (80.0-100.0); RBC 3.06 m/uL (4.30-5.90); WBC 9.5 k/uL (3.8-10.6)
[2023-08-01 04:10] LABS: Anisocytosis Slight; Basophils # (A) 0.1 k/uL (0-0.2); Basophils % (A) 1 %; Eosinophils # (A) 0.1 k/uL (0-0.7); Eosinophils % (A) 1 %; Hypochromasia Marked; Lymphocytes # (A) 1.1 k/uL (1.0-4.8); Lymphocytes % (A) 12 %; Macrocytosis Marked; Mean Platelet Volume 8.3; Monocytes # (A) 0.8 k/uL (0-1.0); Monocytes % (A) 8 %; Neutrophils # (A) 7.2 k/uL (1.3-7.7); Neutrophils % (A) 76 %; Platelet Count 211 k/uL (150-450); Poikilocytosis Slight; RDW 19.7 % (11.5-15.5)
[2023-08-01 04:32] LABS: African American GFR (CKD) 19 (>60 ml/min/1.73 sqM); Anion Gap 12 mmol/L; Blood Urea Nitrogen 44 mg/dL (9-20); Calcium 8.3 mg/dL (8.4-10.2); Carbon Dioxide 22 mmol/L (22-30); Chloride 100 mmol/L (98-107); Glucose 201 mg/dL (74-99); Non-African American GFR(CKD) 17 (>60 ml/min/1.73 sqM); Potassium 4.1 mmol/L (3.5-5.1); Sodium 134 mmol/L (137-145)
[2023-08-01 06:23] LABS: ABG PCO2 36 mmHg (35-45); ABG PH 7.43 (7.35-7.45); ABG PO2 76 mmHg (83-108); Allen Test Performed? Yes
[2023-08-01 06:24] LABS: ABG Base Excess -0.4 mmol/L; ABG HCO3 24 mmol/L (21-25); ABG TCO2 25 mmol/L (19-24)
[2023-08-01 06:27] LABS: Glucose,Whole Blood 223 mg/dL (70-110)
[2023-08-01] MEDS: MIDODRINE 5 MG TAB PO SCH ×3 (06:30→17:19)
--- NOTE | 2023-08-01 07:20 | P.PN ---
Subjective Progress Note Date: 08/01/23 Principal diagnosis: Cardiac arrest The patient is a 78-year-old gentleman with history of cardiomyopathy with the last echo showed an EF around 35% and also permanent atrial fibrillation and also permanent pacemaker and morbid obesity and sleep apnea and COPD on multiple comorbid conditions. He was admitted to the hospital with generalized weakness and had a cardiac arrest on the floor was pulseless electrical activity required CPR for some time. Subsequently he was intubated and he was brought to the intensive care unit. Beside that the patient currently is in renal failure 07/30/2023 The patient was seen and evaluated this morning. He is currently unstable and requiring vasopressors. He is in nature fibrillation with overall controlled heart rate on the current medical regimen. He is on oral anticoagulation as well. He is of any sedation at this point from the morning. We'll see the patient would be able to wake up and there is no evidence of any anoxic encephalopathy. This too early. At this point. No echo was ordered since the patient had cardiac arrest we'll obtain an echocardiogram. The examination is remarkable for patient intubated on mechanical ventilation who is morbidly obese with stable vital signs of course knowing that he is on vasopressors at this point. The chest examination is remarkable for diminished breathing sounds bilaterally in the cardiovascular examination is remarkable for regular rhythm with distant heart sounds and the extremities has mild bilateral lower extremity edema. 07/31/2023 The patient was evaluated this morning. He continues to be intubated on mechanical ventilation. He continues to be hemodynamically unstable and requiring vasopressors. Beside that he is not waking up in spite of not receiving any sedation at this point. She continues to be on oral anticoagulation with liquids. The echo revealed impaired LV function was EF around 35% with septal hypokinesia. His first troponin was borderline elevated going to obtain 2 more sets of troponin. Anyway were not made to pursue any invasive workup on him at this point to we know what is neurology checks status and neurology is on the case. We'll follow-up with the creatinine. The examination is remarkable for the patient's being intubated on mechanical ventilation with upper extremities and lower extremities edema and distant heart sounds with regular rate and rhythm and initially breathing sounds bilaterally August [id number] The patient was seen and evaluated this morning. Unfortunately still lethargic and only responding to severe/painful stimulation. Neurology is on the case and there is a concern about anoxic encephalopathy. From the cardiac standpoint overview, he is stable. He is not on any vasopressors or inotropic. He continues to be in sinus mechanism with first-degree AV block. The examination is remarkable for lethargy with a stable vital signs and diminished breathing sounds bilaterally and distant heart sounds Assessment Cardiac arrest was pulseless electrical activity Chronic atrial fibrillation with controlled heart rate Cardiomyopathy Renal failure Possible anoxic encephalopathy Permanent pacemaker Multiple comorbid conditions Plan Continue the current medical regimen Follow-up with the neurology evaluation Further recommendation to follow Objective - Vital Signs Vital signs: Vital Signs Temp 98.3 F 08/01/23 04:00 Pulse 81 08/01/23 07:00 Resp 23 08/01/23 07:00 BP 104/63 08/01/23 07:00 Pulse Ox 98 08/01/23 07:00 FiO2 55 08/01/23 04:00 Intake & Output 07/31/23 08/01/23 08/01/23 18:59 06:59 18:59 Intake Total 2686.483 5005.954 61.4 Output Total 0 Balance 7491.328 7081.954 61.4 Weight 132.7 kg Intake: IV 661 689 Pressure Bag (0.9 Sodium 36 39 Chloride) Sodium Chloride 0.9% 1, 575 650 000 ml @ 50 mls/hr IV . Q20H SERGE[facility] Rx#:[id number] cefTRIAXone 1 gm In 50 Sodium Chloride 0.9% 50 ml @ 100 mls/hr IVPB Q24HR SERGEY Rx#:[id number] Intake, IV Titration 233.066 340.954 61.4 Amount Norepinephrine 4 mg In 233.066 Sodium Chloride 0.9% 250 ml @ 0.03 MCG/KG/MIN 13. 361 mls/hr IV .Q19H1M SERGEY Rx#:[id number] Norepinephrine 8 mg In 340.954 61.4 Sodium Chloride 0.9% 250 ml @ 0.11 MCG/KG/MIN 27. 947 mls/hr IV .Q9H14M SERGEY Rx#:[id number] Tube Feeding 550 715 Other 60 Output: Urine 0 Other: # Voids 1 1 ABP, PAP, CO, CI - Last Documented Arterial Blood Pressure 129/57 - Labs CBC & Chem 7: 08/01/23 04:00 08/01/23 04:00 Labs: Abnormal Lab Results - Last 24 Hours (Table) 07/31/23 07/31/23 07/31/23 Range/Units 08:00 08:00 08:00 RBC 3.02 L (4.30-5.90) m/uL Hgb 9.7 L (13.0-17.5) gm/dL Hct 31.6 L (39.0-53.0) % MCV 104.7 H (80.0-100.0) fL MCHC 30.8 L (31.0-37.0) g/dL RDW 19.9 H (11.5-15.5) % Macrocytosis Marked A ABG pO2 (83-108) mmHg ABG Total CO2 (19-24) mmol/L Sodium 135 L (137-145) mmol/L BUN 33 H (9-20) mg/dL Creatinine 2.86 H (0.66-1.25) mg/dL Glucose 196 H (74-99) mg/dL POC Glucose (mg/dL) (70-110) mg/dL Calcium (8.4-10.2) mg/dL Troponin I 0.054 H* (0.000-0.034) ng/mL Procalcitonin (0.02-0.09) ng/mL 07/31/23 07/31/23 07/31/23 Range/Units 08:00 11:33 12:21 RBC (4.30-5.90) m/uL Hgb (13.0-17.5) gm/dL Hct (39.0-53.0) % MCV (80.0-100.0) fL MCHC (31.0-37.0) g/dL RDW (11.5-15.5) % Macrocytosis ABG pO2 (83-108) mmHg ABG Total CO2 (19-24) mmol/L Sodium (137-145) mmol/L BUN (9-20) mg/dL Creatinine (0.66-1.25) mg/dL Glucose (74-99) mg/dL POC Glucose (mg/dL) 215 H (70-110) mg/dL Calcium (8.4-10.2) mg/dL Troponin I 0.050 H* (0.000-0.034) ng/mL Procalcitonin 0.85 H (0.02-0.09) ng/mL 07/31/23 08/01/23 08/01/23 Range/Units 18:07 00:41 04:00 RBC 3.06 L (4.30-5.90) m/uL Hgb 9.8 L (13.0-17.5) gm/dL Hct 31.9 L (39.0-53.0) % MCV 104.2 H (80.0-100.0) fL MCHC 30.8 L (31.0-37.0) g/dL RDW 19.7 H (11.5-15.5) % Macrocytosis Marked A ABG pO2 (83-108) mmHg ABG Total CO2 (19-24) mmol/L Sodium (137-145) mmol/L BUN (9-20) mg/dL Creatinine (0.66-1.25) mg/dL Glucose (74-99) mg/dL POC Glucose (mg/dL) 196 H 225 H (70-110) mg/dL Calcium (8.4-10.2) mg/dL Troponin I (0.000-0.034) ng/mL Procalcitonin (0.02-0.09) ng/mL 08/01/23 08/01/23 08/01/23 Range/Units 04:00 05:53 06:25 RBC (4.30-5.90) m/uL Hgb (13.0-17.5) gm/dL Hct (39.0-53.0) % MCV (80.0-100.0) fL MCHC (31.0-37.0) g/dL RDW (11.5-15.5) % Macrocytosis ABG pO2 76 L (83-108) mmHg ABG Total CO2 25 H (19-24) mmol/L Sodium 134 L (137-145) mmol/L BUN 44 H (9-20) mg/dL Creatinine 3.40 H (0.66-1.25) mg/dL Glucose 201 H (74-99) mg/dL POC Glucose (mg/dL) 223 H (70-110) mg/dL Calcium 8.3 L (8.4-10.2) mg/dL Troponin I (0.000-0.034) ng/mL Procalcitonin (0.02-0.09) ng/mL
[2023-08-01] MEDS: SUCRALFATE 1 GM TAB PO SCH ×2 (08:38→20:12)
[2023-08-01] MEDS: CHLORHEXIDINE GLUCONATE 15 ML CUP MUCOUS MEM SCH ×2 (08:38→20:11)
[2023-08-01] MEDS: ACETAMINOPHEN TAB 325 MG TAB PO SCH ×2 (08:40→20:11)
[2023-08-01] MEDS: FERROUS SULFATE 325 MG TAB PO SCH (08:41)
[2023-08-01] MEDS: PANTOPRAZOLE 40 MG TABLET PO SCH (08:41)
[2023-08-01] MEDS: DOCUSATE ORAL SOLN 100 MG/10 ML CUP PO SCH ×2 (08:41→20:12)
[2023-08-01] MEDS: MULTIVITAMINS, THERA 1 EACH TAB PO SCH (08:41)
[2023-08-01] MEDS: APIXABAN 5 MG TAB PO SCH ×2 (08:42→20:11)
[2023-08-01] MEDS: levETIRAcetam IV 500 MG/5 ML VIAL IVP SCH ×2 (08:42→20:12)
[2023-08-01] MEDS: FLUDROCORTISONE 0.1 MG TAB PO SCH (08:44)
[2023-08-01] MEDS: allopurinoL 300 MG TAB PO SCH (08:44)
[2023-08-01] MEDS: AMIODARONE 100 MG TAB PO SCH (08:44)
--- NOTE | 2023-08-01 09:25 | P.PN ---
Subjective Progress Note Date: 07/31/23 07/31/2022: Patient was seen for a follow-up. Patient continues to be unresponsive. Patient currently on nor epinephrine 0.11 mcg/kg per minute. Patient not improved. 07/30/2022: Patient was initially seen by Dr. Kirill Marcos. Please refer to his note for details. Patient is a 78-year-old male with in-house cardiopulmonary arrest. Patient does have brainstem reflexes. CT head negative. EKG reveals severe encephalopathy and rare epileptiform discharges over the right central/temporal. Patient was started on Keppra. Patient at present on norepinephrine 0.06 mcg/kg per minute. Also on Rocephin 1 g. Patient has been off propofol since 5:45 AM. He is on CPAP, tolerating well. He withdraws to pain per nurse report. No obvious seizure-like activity. Some of the workup during his hospital visit consisted of: He is having episodes of hypotensive 70-80 over 40-50s and also his pulse ox was as low as 81% liters. Most recent sodium is trended up at 133, potassium is 5.9, glucose is 170s to 200s, AST ALT was within normal limits Plasma lactic acid vein is 2.8 and most recent is 1.3. TSH as a 7.090. Ammonia is 25. CT head is reported as similar mild generalized atrophy. No acute intracranial abnormality seen. I personally reviewed CT head and agree there is no acute or subacute ischemia or bleed. Objective - Vital Signs Vital signs: Vital Signs Temp 98.7 F 07/31/23 16:00 Pulse 71 07/31/23 17:30 Resp 22 07/31/23 17:30 BP 109/63 07/31/23 17:15 Pulse Ox 94 L 07/31/23 17:30 FiO2 55 07/31/23 17:00 Intake & Output 07/30/23 07/31/23 07/31/23 18:59 06:59 18:59 Intake Total 2049.644 8809.796 8146.066 Output Total 900 0 Balance 3758.106 9566.035 1256.066 Weight 127.4 kg 131.3 kg Intake: IV 633 280 608 Pressure Bag (0.9 Sodium 33 30 33 Chloride) Sodium Chloride 0.9% 1, 550 250 525 000 ml @ 50 mls/hr IV . Q20H [facility] Rx#:[id number] cefTRIAXone 1 gm In 50 50 Sodium Chloride 0.9% 50 ml @ 100 mls/hr IVPB Q24HR SERGE[facility] Rx#:[id number] Intake, IV Titration 333.644 490.035 233.066 Amount Norepinephrine 4 mg In 333.644 490.035 233.066 Sodium Chloride 0.9% 250 ml @ 0.03 MCG/KG/MIN 13. 361 mls/hr IV .Q19H1M SERGE[facility] Rx#:[id number] Tube Feeding 503 660 385 Hemodialysis 400 Other 180 60 30 Output: Urine 0 0 Hemodialysis 900 Other: Voiding Method External Catheter External Catheter # Voids 1 ABP, PAP, CO, CI - Last Documented Arterial Blood Pressure 106/50 - Exam Patient is intubated, currently not on any sedation. Patient still almost comatose, with GCS of 5 (E2, V1, M2). Patient has decerebrate posturing with noxious stimuli in bilateral upper limbs. In the lower limbs, patient slightly flexes his foot to painful stimuli on either s ides. Pupils are equal, round and reacting. Gaze is slightly upwards. Oculocephalics absent. No obvious seizure-like activity. Tone is equal bilaterally. Reflexes are absent Patient does not respond to fine touch are painful stimuli, except as mentioned above. - Labs CBC & Chem 7: 08/01/23 04:00 08/01/23 04:00 Labs: Abnormal Lab Results - Last 24 Hours (Table) 07/31/23 07/31/23 07/31/23 Range/Units 00:01 05:39 06:03 RBC (4.30-5.90) m/uL Hgb (13.0-17.5) gm/dL Hct (39.0-53.0) % MCV (80.0-100.0) fL MCHC (31.0-37.0) g/dL RDW (11.5-15.5) % Macrocytosis ABG pH 7.47 H (7.35-7.45) ABG HCO3 26 H (21-25) mmol/L ABG Total CO2 27 H (19-24) mmol/L Sodium (137-145) mmol/L BUN (9-20) mg/dL Creatinine (0.66-1.25) mg/dL Glucose (74-99) mg/dL POC Glucose (mg/dL) 189 H 185 H (70-110) mg/dL Troponin I (0.000-0.034) ng/mL Procalcitonin (0.02-0.09) ng/mL 07/31/23 07/31/23 07/31/23 Range/Units 08:00 08:00 08:00 RBC 3.02 L (4.30-5.90) m/uL Hgb 9.7 L (13.0-17.5) gm/dL Hct 31.6 L (39.0-53.0) % MCV 104.7 H (80.0-100.0) fL MCHC 30.8 L (31.0-37.0) g/dL RDW 19.9 H (11.5-15.5) % Macrocytosis Marked A ABG pH (7.35-7.45) ABG HCO3 (21-25) mmol/L ABG Total CO2 (19-24) mmol/L Sodium 135 L (137-145) mmol/L BUN 33 H (9-20) mg/dL Creatinine 2.86 H (0.66-1.25) mg/dL Glucose 196 H (74-99) mg/dL POC Glucose (mg/dL) (70-110) mg/dL Troponin I 0.054 H* (0.000-0.034) ng/mL Procalcitonin (0.02-0.09) ng/mL 07/31/23 07/31/23 07/31/23 Range/Units 08:00 11:33 12:21 RBC (4.30-5.90) m/uL Hgb (13.0-17.5) gm/dL Hct (39.0-53.0) % MCV (80.0-100.0) fL MCHC (31.0-37.0) g/dL RDW (11.5-15.5) % Macrocytosis ABG pH (7.35-7.45) ABG HCO3 (21-25) mmol/L ABG Total CO2 (19-24) mmol/L Sodium (137-145) mmol/L BUN (9-20) mg/dL Creatinine (0.66-1.25) mg/dL Glucose (74-99) mg/dL POC Glucose (mg/dL) 215 H (70-110) mg/dL Troponin I 0.050 H* (0.000-0.034) ng/mL Procalcitonin 0.85 H (0.02-0.09) ng/mL Assessment and Plan Assessment: This is a 78 y/o gentleman with multiple medical problems who presents to ED on 07/27/2023 because of generalized weakness and a fall. He had difficulty getting out of chair to bathroom. In our facility at 12:30am on 07/28/2023 he had cardiopulmonary arrest, with downtime lasting 14 minutes. Acute cardiopulmonary arrest lasting 14 minutes. He was in PEA per nursing s taff. 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 Patient is off sedation. Patient continues to be severely obtunded with GCS of 5. On examination has brainstem reflexes (breathing over the vent, open eyes and has intact gag/cough). CT head is negative for acute/subacute changes. Also component of encephalopathy due to metabolic and hypoxic encephalopathy. Hypotensive on epinephrine Diabetes mellitus that is on going History of Cardiomyopathy Sleep apnea History of atrial fibrillation on eliquis Chronic renal failure on hemodialysis Plan: Patient so far not showing significant clinical improvement. Patient's GCS is 5. Patient is off sedation since 36 hours. EEG reviewed by Dr. Marcos revealed background slowing, suggestive of severe en cephalopathy. Rare epileptiform discharges over the right central temporal region increases the risk for seizure. Otherwise no electrographic seizure was recorded. Clinical correlation recommended. Dr. Marcos started patient on Keppra. Repeat EEG in the morning because of lack of clinical improvement. Patient has persistent hypotension, on Levophed. Management as per primary/ICU team. We'll defer the rest of the medical management to primary and other specialist Condition condition is a guarded.
[2023-08-01] MEDS: NOREPINEPHRINE 4 MG in SODIUM CHLORIDE 0.9% 250 ML IV SCH (10:23)
--- NOTE | 2023-08-01 10:49 | XR ---
EXAMINATION TYPE: XR chest 1V portable DATE OF EXAM: 08/01/2023 Comparison: 07/31/2023 Clinical History: 78-year-old male ICU follow-up, mechanical ventilation Findings: Left anterior chest wall pacemaker generator with right atrial and right ventricular leads. ET tube t ip at the level of the medial clavicular heads. NG tube courses below the diaphragm. Right-sided doub le-lumen hemodialysis catheter with tips at the cavoatrial junction. Heart remains moderately enlarge d. Small bilateral pleural effusions remain. Impression: Similar mild to moderate cardiomegaly and ongoing small pleural effusions with adjacent atelectasis a nd/or consolidation.
[2023-08-01 11:38] LABS: Glucose,Whole Blood 207 mg/dL (70-110)
--- NOTE | 2023-08-01 12:05 | P.PN ---
Subjective Patient is seen for follow-up for end-stage renal disease. Patient remains on the vent. Sedation has been off for 2 days now. There is no improvement in mentation. Patient withdraws to pain. Objective - Vital Signs Vital signs: Vital Signs Temp 98.1 F 08/01/23 08:00 Pulse 71 08/01/23 11:00 Resp 25 H 08/01/23 11:00 BP 108/62 08/01/23 08:00 Pulse Ox 95 08/01/23 11:00 FiO2 55 08/01/23 08:43 Intake & Output 07/31/23 08/01/23 08/01/23 18:59 06:59 18:59 Intake Total 8193.953 2862.954 1144.423 Output Total 0 0 Balance 0544.534 8690.954 1144.423 Weight 132.7 kg Intake: IV 661 689 285 Pressure Bag (0.9 Sodium 36 39 15 Chloride) Sodium Chloride 0.9% 1, 575 650 150 000 ml @ 50 mls/hr IV . Q20H [facility] Rx#:[id number] cefTRIAXone 1 gm In 50 120 Sodium Chloride 0.9% 50 ml @ 100 mls/hr IVPB Q24HR [facility] Rx#:[id number] Intake, IV Titration 233.066 340.954 409.423 Amount Norepinephrine 4 mg In 233.066 270.998 Sodium Chloride 0.9% 250 ml @ 0.03 MCG/KG/MIN 13. 361 mls/hr IV .Q19H1M [facility] Rx#:[id number] Norepinephrine 8 mg In 340.954 138.425 Sodium Chloride 0.9% 250 ml @ 0.11 MCG/KG/MIN 27. 947 mls/hr IV .Q9H14M SER[facility] Rx#:[id number] Oral 105 Tube Feeding 550 715 285 Other 60 60 Output: Urine 0 0 Other: # Voids 1 1 ABP, PAP, CO, CI - Last Documented Arterial Blood Pressure 126/54 - Exam Patient is on the vent. Withdraws to painful stimulus Examination of the heart S1 and S2 Examination of the lungs decreased breath sounds at the bases Abdomen is soft obese Examination lower extremity shows chronic skin skin changes 1+ edema noted. 2+ edema noted in bilateral upper extremities. - Labs CBC & Chem 7: 08/01/23 04:00 08/01/23 04:00 Labs: Abnormal Lab Results - Last 24 Hours (Table) 07/31/23 07/31/23 07/31/23 Range/Units 08:00 12:21 18:07 RBC (4.30-5.90) m/uL Hgb (13.0-17.5) gm/dL Hct (39.0-53.0) % MCV (80.0-100.0) fL MCHC (31.0-37.0) g/dL RDW (11.5-15.5) % Macrocytosis ABG pO2 (83-108) mmHg ABG Total CO2 (19-24) mmol/L Sodium (137-145) mmol/L BUN (9-20) mg/dL Creatinine (0.66-1.25) mg/dL Glucose (74-99) mg/dL POC Glucose (mg/dL) 196 H (70-110) mg/dL Calcium (8.4-10.2) mg/dL Troponin I 0.050 H* (0.000-0.034) ng/mL Procalcitonin 0.85 H (0.02-0.09) ng/mL 08/01/23 08/01/23 08/01/23 Range/Units 00:41 04:00 04:00 RBC 3.06 L (4.30-5.90) m/uL Hgb 9.8 L (13.0-17.5) gm/dL Hct 31.9 L (39.0-53.0) % MCV 104.2 H (80.0-100.0) fL MCHC 30.8 L (31.0-37.0) g/dL RDW 19.7 H (11.5-15.5) % Macrocytosis Marked A ABG pO2 (83-108) mmHg ABG Total CO2 (19-24) mmol/L Sodium 134 L (137-145) mmol/L BUN 44 H (9-20) mg/dL Creatinine 3.40 H (0.66-1.25) mg/dL Glucose 201 H (74-99) mg/dL POC Glucose (mg/dL) 225 H (70-110) mg/dL Calcium 8.3 L (8.4-10.2) mg/dL Troponin I (0.000-0.034) ng/mL Procalcitonin (0.02-0.09) ng/mL 08/01/23 08/01/23 08/01/23 Range/Units 05:53 06:25 11:36 RBC (4.30-5.90) m/uL Hgb (13.0-17.5) gm/dL Hct (39.0-53.0) % MCV (80.0-100.0) fL MCHC (31.0-37.0) g/dL RDW (11.5-15.5) % Macrocytosis ABG pO2 76 L (83-108) mmHg ABG Total CO2 25 H (19-24) mmol/L Sodium (137-145) mmol/L BUN (9-20) mg/dL Creatinine (0.66-1.25) mg/dL Glucose (74-99) mg/dL POC Glucose (mg/dL) 223 H 207 H (70-110) mg/dL Calcium (8.4-10.2) mg/dL Troponin I (0.000-0.034) ng/mL Procalcitonin (0.02-0.09) ng/mL Assessment and Plan Assessment: 1. End-stage renal disease maintained on hemodialysis on Sunday schedule via permacath. 2. Status post fall. No fractures noted. 3. Diabetes mellitus. 4. Metabolic acidosis secondary to chronic kidney disease. Improved. 5. Chronic diastolic CHF with moderate to severe tricuspid regurgitation and pulmonary hypertension. 6. Hyperkalemia secondary to CKD, improved post HD. Patient underwent hemodialysis July 27 and July 28, 2023. 7. Status post PEA arrest 07/28/2023 concern for anoxic encephalopathy. 8. Anemia of chronic kidney disease maintained on Aranesp. Plan: Hemodialysis today with goal UF of about 1-2 L. DC IV fluids. Increase midodrine to 10 mg 3 times a day Continue to monitor for improvement in mentation.
--- NOTE | 2023-08-01 13:45 | P.PN ---
Subjective Progress Note Date: 08/01/23 This is a 78-year-old white male with history of multiple medical problems including chronic renal failure/chronic kidney disease on hemodialysis, yesterday the patient was brought into the ER with mostly you days history of weakness and falling easily. Patient was admitted for further evaluation of his weakness, and he was seen only by nephrology for his chronic kidney disease and he was initiated on hemodialysis which is mostly given Wednesdays and Fridays. Patient is also known to have history of chronic diastolic congestive heart failure with moderate to severe tricuspid regurgitation and pulmonary hypertension. In addition to this the patient has obstructive sleep apnea, and he is maintained on AVAPS at home. Patient was on the medical floor, and around 12:30 AM last night, patient had a sudden cardiac arrest. And TRISHA RAYO was called. Patient received 3 A of epinephrine and 1 amp of bicarb, his down time was felt to be about 14 minutes of CPR. In the meantime the patient was intubated, and placed on mechanical ventilation. Overnight the patient remains on mechanical ventilation, and I saw this morning. He is now on assist control rate of 2010 volume 500 FiO2 was 60% and PEEP of 8. ABG showed a pO2 of 112 pCO2 35 pH of 7.48. Patient is unresponsive to any stimuli except he seems to withdraw to painful stimuli only. And he is on norepinephrine at 0.06 mg/kg/m propofol 25 mg/kg/m she is also on IV fluid at 1 50 mL per hour I cut it down to [address] of the brain is pending, neurologic consultation is pending, chest x-ray showed mostly mild interstitial edema. Patient may or may not get dialysis today, this will be decided upon by nephrology on the case. After evaluating the patient, I recommended central venous access, and an arterial line was placed and the patient. Labs today WBC count is 10.2 hemoglobin 10.0, basic metabolic profile is normal except for potassium of 5.9 BUN is 29 creatinine 3.4, troponin is 0.063, cardiac consultation was initiated today, neurological consultation was also initiated, and I'm recommending that we send the patient down for CT of the brain without contrast today. Education is at present include amiodarone 200 mg daily eliquis 12 mg twice a day Lipitor, ceftriaxone, Aranesp, Dilaudid, Florinef, sliding scale insulin, midodrine, and DuoNeb updrafts 4 times a day and when necessary patient is also on Protonix, he was also placed on lokelma by nephrology for his hyperkalemia. Reevaluated 07/29/23, patient remains in the ICU, intubated and mechanically ventilated. On assist control rate of 20-2500 FiO2 50% PEEP of 8, ABG showed a pO2 of 84 pCO2 35 pH of 7.46. His FiO2 was increased earlier by respiratory to 60%, however I recommended PEEP up to 10 and cutting down the FiO2 down to 55% otherwise the remaining vent settings remained the same. Patient remains on norepinephrine at 0.08 mcg/kg/m propofol at 25 mg/kg/m vital a PE at 30 mL/m and 0.9 at 50 mL per hour. Patient remains unresponsive, he only withdraws to painful stimuli, CT of the brain yesterday was unremarkable. EEG is pending his left brachial arterial line was lost yesterday, went ahead and placed another arterial line today and the right radial artery. Patient remains on ceftriaxone and eliquis. Today my recommendation is to have sedation interruption and assess mental status again, patient was seen by neurology and recommending EEG. Patient underwent hemodialysis yesterday, no fluid was removed, WBC count today is 9 hemoglobin 10.1 and platelets are 1 85,000. Basic metabolic profile is normal bicarb is 21 BUN is 27 creatinine 2.88. Patient remains on medications as listed including allopurinol, amiodarone, eliquis, atorvastatin, ceftriaxone, propofol, Aranesp, Colace, ferrous sulfate, Florinef, and Dilaudid. Patient is also on Protonix, Zofran as needed, and morphine sulfate as needed as well as m idodrine and insulin as per scheduled Progress note dated 07/30/2023. The patient was admitted to the emergency department on July 27, and was intubated on July 28. The patient has history of multiple medical problems including chronic renal failure, and chronic kidney disease, on hemodialysis, and apparently had been very weak at home, and falling. The patient remains on the mechanical ventilator. Ventilator settings include the volume assist control, rate 20, tidal volume 500, FiO2 55%, but 10. Blood gases show pO2 of 80, pCO2 33, and a pH is 7. or 5. The patient continues on propofol at 10 mics per kilogram per minute. Although recently has been turned off by the nurse, saline at 50 mL an hour, norepinephrine at 12 mcg/m, and vital high protein at 40 mL an hour, with a goal of 48. We will attempt a spontaneous breathing trial on this patient, with pressure support of 10, CPAP of 5. I'm not hopeful that the patient is ready for weaning given the fact that he still on norepinephrine at 12 mcg/m, insulin requiring FiO2 55%, with a PEEP of 10. PO2 was only 80. White count 9.1, hemoglobin 10.1, hematocrit 33.3, and platelet count 179,000. Sodium 132, potassium 4.9, chlorides 99, CO2 18, anion gap 15, BUN 38, creatinine 3.54. Chest x-ray shows a well-placed endotracheal tube, and a hemodialysis catheter. There is cardiomegaly, and small bilateral pleural effusions. The patient is seen today 07/31/2023 and follow-up in the intensive care unit. He remains intubated on the mechanical ventilator currently an assist-control mode at a rate of 20, tidal volume 500, FiO2 55% and a PEEP of 10. Morning blood gases revealed a PaO2 of 83, pCO2 36 and a pH of 7.47. He remains on normal saline 50 ML's per hour. Norepinephrine at 12 mcg/m. Being nourished with vital HP 55 ML's per hour which is goal. He has been off sedation for over 24 hours now. His only response is to withdraw from painful stimuli. X-ray shows similar bibasilar opacities suggestive of small effusions with atelectasis/airspace disease. Stable compared to previous. Sputum shows no wilson wth. White count 9.4. Hemoglobin 9.7. Platelets 177. Sodium 135. Potassium 4.2. Bicarb 22. BUN 33. Creatinine 2.86. Glucose 196. He remains on ceftriaxone. Anticoagulated with Eliquis. He did tolerate pressure support of 10 and the CPAP of 5 for 12 hours yesterday. He will be continued on hemodialysis on Sunday via permacath. Echocardiogram did reveal moderate to severe left ventricular systolic dysfunction with ejection fraction of 35%. The patient is seen today 08/01/2023 and follow-up in the intensive care unit. He remains intubated on mechanical ventilator in assist control mode at a rate of 20, tidal volume 500, FiO2 55% and a PEEP of 10. Morning blood gases revealed a pO2 of 76, pCO2 of 36 and a pH of 7.43. The plan is for pressure support and CPAP trials today. He is been off sedation for greater than 48 hours. He has not had any purposeful responses. He has some involuntary movement and possible brainstem function otherwise does not follow any simple commands. He is in a paced rhythm. Microbiology has been negative thus far. His pro calcitonin was 0.85. He remains on ceftriaxone. He has normal saline at 50 MLS per hour. Currently on norepinephrine at 0.08 mcg/kg/m which is 10 mcg/m. He is being nourished with vital HP at 55 ML's per hour which is goal. He is continued on DuoNeb inhalations. Anticoagulated with Eliquis. Chest x- ray reveals similar mild to moderate cardiomegaly and ongoing small pleural effusions with adjacent atelectasis. White count 9.5. Hemoglobin 9.8. Platelets 211. Sodium 134. Potassium 4.1. Bicarb 22. BUN 44. Creatinine 3.40. Glucose 201. Objective - Vital Signs Vital signs: Vital Signs Temp 97.8 F 08/01/23 12:00 Pulse 75 08/01/23 13:00 Resp 19 08/01/23 13:00 BP 108/62 08/01/23 08:00 Pulse Ox 95 08/01/23 13:00 FiO2 55 08/01/23 12:04 Intake & Output 07/31/23 08/01/23 08/01/23 18:59 06:59 18:59 Intake Total 3662.595 7520.954 1262.423 Output Total 0 0 Balance 9768.111 8783.954 1262.423 Weight 132.7 kg Intake: IV 661 689 308 Pressure Bag (0.9 Sodium 36 39 18 Chloride) Sodium Chloride 0.9% 1, 575 650 150 000 ml @ 50 mls/hr IV . Q20H SERGEY Rx#:[id number] cefTRIAXone 1 gm In 50 140 Sodium Chloride 0.9% 50 ml @ 100 mls/hr IVPB Q24HR SERGEY Rx#:[id number] Intake, IV Titration 233.066 340.954 409.423 Amount Norepinephrine 4 mg In 233.066 270.998 Sodium Chloride 0.9% 250 ml @ 0.03 MCG/KG/MIN 13. 361 mls/hr IV .Q19H1M SERGEY Rx#:[id number] Norepinephrine 8 mg In 340.954 138.425 Sodium Chloride 0.9% 250 ml @ 0.11 MCG/KG/MIN 27. 947 mls/hr IV .Q9H14M SERGEY Rx#:[id number] Oral 105 Tube Feeding 550 715 350 Other 60 90 Output: Urine 0 0 Other: # Voids 1 1 ABP, PAP, CO, CI - Last Documented Arterial Blood Pressure 109/47 - Exam GENERAL EXAM: Intubated, unresponsive 78-year-old male patient, requiring 55% FiO2 with a PEEP of 10, in no apparent distress. HEAD: Normocephalic. EYES: Normal reaction of pupils, equal size. NOSE: Clear with pink turbinates. THROAT: No erythema or exudates. NECK: No masses, no JVD. CHEST: No chest wall deformity. LUNGS: Equal air entry with no crackles, wheeze, rhonchi or dullness. CVS: S1 and S2 normal with no audible murmur, regular rhythm. ABDOMEN: No hepatosplenomegaly, normal bowel sounds, no guarding or rigidity. SPINE: No scoliosis or deformity SKIN: No rashes CENTRAL NERVOUS SYSTEM: Withdraws to pain on full stimuli, otherwise unresponsive, tone is normal in all 4 extremities. EXTREMITIES: There is 1+ peripheral edema. No clubbing, no cyanosis. Peripheral pulses are intact. - Labs CBC & Chem 7: 08/01/23 04:00 08/01/23 04:00 Labs: Abnormal Lab Results - Last 24 Hours (Table) 07/31/23 07/31/23 08/01/23 Range/Units 08:00 18:07 00:41 RBC (4.30-5.90) m/uL Hgb (13.0-17.5) gm/dL Hct (39.0-53.0) % MCV (80.0-100.0) fL MCHC (31.0-37.0) g/dL RDW (11.5-15.5) % Macrocytosis ABG pO2 (83-108) mmHg ABG Total CO2 (19-24) mmol/L Sodium (137-145) mmol/L BUN (9-20) mg/dL Creatinine (0.66-1.25) mg/dL Glucose (74-99) mg/dL POC Glucose (mg/dL) 196 H 225 H (70-110) mg/dL Calcium (8.4-10.2) mg/dL Procalcitonin 0.85 H (0.02-0.09) ng/mL 08/01/23 08/01/23 08/01/23 Range/Units 04:00 04:00 05:53 RBC 3.06 L (4.30-5.90) m/uL Hgb 9.8 L (13.0-17.5) gm/dL Hct 31.9 L (39.0-53.0) % MCV 104.2 H (80.0-100.0) fL MCHC 30.8 L (31.0-37.0) g/dL RDW 19.7 H (11.5-15.5) % Macrocytosis Marked A ABG pO2 76 L (83-108) mmHg ABG Total CO2 25 H (19-24) mmol/L Sodium 134 L (137-145) mmol/L BUN 44 H (9-20) mg/dL Creatinine 3.40 H (0.66-1.25) mg/dL Glucose 201 H (74-99) mg/dL POC Glucose (mg/dL) (70-110) mg/dL Calcium 8.3 L (8.4-10.2) mg/dL Procalcitonin (0.02-0.09) ng/mL 08/01/23 08/01/23 Range/Units 06:25 11:36 RBC (4.30-5.90) m/uL Hgb (13.0-17.5) gm/dL Hct (39.0-53.0) % MCV (80.0-100.0) fL MCHC (31.0-37.0) g/dL RDW (11.5-15.5) % Macrocytosis ABG pO2 (83-108) mmHg ABG Total CO2 (19-24) mmol/L Sodium (137-145) mmol/L BUN (9-20) mg/dL Creatinine (0.66-1.25) mg/dL Glucose (74-99) mg/dL POC Glucose (mg/dL) 223 H 207 H (70-110) mg/dL Calcium (8.4-10.2) mg/dL Procalcitonin (0.02-0.09) ng/mL Assessment and Plan Assessment: Status post cardiac arrest, with CPR and return of spontaneous circulation, with at least 14 minutes of downtime. Patient had PEA Rule out anoxic brain injury. Remains unresponsive despite 48 hours without sedation Status post intubation and mechanical ventilation, 07/28/2023 Chronic diastolic CHF Severe pulmonary hypertension Acute metabolic acidosis, secondary to chronic kidney disease Possible orthostatic hypotension, with history of recurrent falls Hyperkalemia, secondary to chronic kidney disease Anemia of chronic disease History of sleep apnea syndrome History of sepsis and septic shock Chronic atrial fibrillation Type 2 diabetes with diabetic nephropathy History of sick sinus syndrome, status post pacemaker implantation Plan: The patient was seen and evaluated Chest x-ray, labs, ABGs and medications reviewed The patient remains unresponsive off sedation for greater than 48 hours The family may consider to go to comfort care versus tracheostomy and PEG tube placement We'll continue with weaning trials as tolerated We'll continue to follow I have personally seen and examined the patient, performed the documentation and the assessment and plan as written. Number of minutes spent on the visit: 15.
--- NOTE | 2023-08-01 14:14 | P.PN ---
Subjective 78-year-old white male with history of atrial fibrillation, hypertension, hyperlipidemia, diabetes mellitus, chronic renal failure/chronic kidney disease on hemodialysis, chronic diastolic CHF with moderate to severe tricuspid regurgitation, pulmonary hypertension, obstructive sleep apnea, was brought into the ER with mostly history of weakness and falling easily. Workup completed in ED including blood work reveals WBC of 9.2, hemoglobin of 10.8 and platelet count of 183, sodium 132, potassium level wasn't done due to hemolyzed specimen, BUN/creatinine of 45/1.43 and blood glucose of 176, UA is positive for blood and leukocyte esterase; Patient was admitted for further evaluation of weakness/falls She does currently receiving dialysis; awake and alert; not reporting any complaints -----Patient was on the medical floor, and around 12:30 AM last night, patient had a sudden cardiac arrest. And TRISHA RAYO was called. Patient received 3 A of epinephrine and 1 amp of bicarb, his down time was felt to be about 14 minutes of CPR. In the meantime the patient was intubated, and placed on mechanical ventilation. CT of the brain is pending, neurologic consultation is pending, chest x-ray showed mostly mild interstitial edema. 07/29/2023 Patient is seen and evaluated in ICU; remains intubated Vital signs blood pressure of 102/60, pulse 74 O2 saturation 97% -- Patient had cardiopulmonary arrest with PE and lasting about 14 minutes; concern about anoxic encephalopathy versus brain injury -- Nephrology on board; CT of the head is ordered with stat EEG -- Intensive care service on board for vent management; remains on hemodialysis -- Antibiotics in form of ceftriaxone -- Patient has been placed on nutritional support 07/30/2023 Patient remains in the ICU sedated and intubated with him the/critical care team followed closely Name is been followed closely by neurosurgery service for possibly Anoxic brain injury Tenderness on gentle hydration with normal saline and 50 mL, Rocephin, home dose of full liquids 5 mg for his chronic atrial fibrillation Creatinine today 3.5-Telugu close to baseline compared to 4.4 upon admission. Echocardiogram showed ejection fraction 35% and septum is hypokinetic 07/31/2023 Patient remains intubated in the ICU with [place]/ team and neurology service followed closely Patient blood pressure stable Physical hemoglobin 9.7, creatinine improvement to 2.8 he is continued on ceftriaxone, normal saline at 50 mm per hour and eliquis Objective - Vital Signs Vital signs: Vital Signs Temp 98.7 F 07/31/23 08:00 Pulse 72 07/31/23 10:15 Resp 20 07/31/23 10:15 BP 99/55 07/31/23 10:15 Pulse Ox 96 07/31/23 10:15 FiO2 55 07/31/23 10:00 Intake & Output 07/30/23 07/31/23 07/31/23 18:59 06:59 18:59 Intake Total 2049.644 1490.035 377 Output Total 900 0 Balance 2728.453 0483.035 377 Weight 127.4 kg 131.3 kg Intake: IV 633 280 237 Pressure Bag (0.9 Sodium 33 30 12 Chloride) Sodium Chloride 0.9% 1, 550 250 175 000 ml @ 50 mls/hr IV . Q20H SERGE[facility] Rx#:[id number] cefTRIAXone 1 gm In 50 50 Sodium Chloride 0.9% 50 ml @ 100 mls/hr IVPB Q24HR SERGE[facility] Rx#:[id number] Intake, IV Titration 333.644 490.035 Amount Norepinephrine 4 mg In 333.644 490.035 Sodium Chloride 0.9% 250 ml @ 0.03 MCG/KG/MIN 13. 361 mls/hr IV .Q19H1M SERGEY Rx#:[id number] Tube Feeding 503 660 110 Hemodialysis 400 Other 180 60 30 Output: Urine 0 0 Hemodialysis 900 Other: Voiding Method External Catheter External Catheter ABP, PAP, CO, CI - Last Documented Arterial Blood Pressure 101/48 - Exam GENERAL: The patient is an sedated HEENT: Pupils are round and equally reacting to light. EOMI. No scleral icterus. No conjunctival pallor. Normocephalic, atraumatic. No pharyngeal erythema. No thyromegaly. CARDIOVASCULAR: S1 and S2 present. No murmurs, rubs, or gallops. PULMONARY: Chest is clear to auscultation, no wheezing , no crackles. ABDOMEN: Soft, nontender, nondistended, normoactive bowel sounds. No palpable organomegaly. MUSCULOSKELETAL: No joint swelling or deformity. EXTREMITIES: No cyanosis, clubbing, or pedal edema. NEUROLOGICAL: Gross neurological examination did not reveal any focal deficits. SKIN: No rashes. no petechiae. - Labs CBC & Chem 7: 08/01/23 04:00 08/01/23 04:00 Labs: Abnormal Lab Results - Last 24 Hours (Table) 07/30/23 07/30/23 07/31/23 Range/Units 11:45 17:43 00:01 RBC (4.30-5.90) m/uL Hgb (13.0-17.5) gm/dL Hct (39.0-53.0) % MCV (80.0-100.0) fL MCHC (31.0-37.0) g/dL RDW (11.5-15.5) % Macrocytosis ABG pH (7.35-7.45) ABG HCO3 (21-25) mmol/L ABG Total CO2 (19-24) mmol/L Sodium (137-145) mmol/L BUN (9-20) mg/dL Creatinine (0.66-1.25) mg/dL Glucose (74-99) mg/dL POC Glucose (mg/dL) 140 H 192 H 189 H (70-110) mg/dL Troponin I (0.000-0.034) ng/mL 07/31/23 07/31/23 07/31/23 Range/Units 05:39 06:03 08:00 RBC 3.02 L (4.30-5.90) m/uL Hgb 9.7 L (13.0-17.5) gm/dL Hct 31.6 L (39.0-53.0) % MCV 104.7 H (80.0-100.0) fL MCHC 30.8 L (31.0-37.0) g/dL RDW 19.9 H (11.5-15.5) % Macrocytosis Marked A ABG pH 7.47 H (7.35-7.45) ABG HCO3 26 H (21-25) mmol/L ABG Total CO2 27 H (19-24) mmol/L Sodium (137-145) mmol/L BUN (9-20) mg/dL Creatinine (0.66-1.25) mg/dL Glucose (74-99) mg/dL POC Glucose (mg/dL) 185 H (70-110) mg/dL Troponin I (0.000-0.034) ng/mL 07/31/23 07/31/23 Range/Units 08:00 08:00 RBC (4.30-5.90) m/uL Hgb (13.0-17.5) gm/dL Hct (39.0-53.0) % MCV (80.0-100.0) fL MCHC (31.0-37.0) g/dL RDW (11.5-15.5) % Macrocytosis ABG pH (7.35-7.45) ABG HCO3 (21-25) mmol/L ABG Total CO2 (19-24) mmol/L Sodium 135 L (137-145) mmol/L BUN 33 H (9-20) mg/dL Creatinine 2.86 H (0.66-1.25) mg/dL Glucose 196 H (74-99) mg/dL POC Glucose (mg/dL) (70-110) mg/dL Troponin I 0.054 H* (0.000-0.034) ng/mL Microbiology - Last 24 Hours (Table) 07/28/23 04:41 Gram Stain - Final Sputum Sputum Culture - Final Assessment and Plan Assessment: 1. Weakness/ debility; likely multifactorial; PT/OT consulted 2. UTI; patient has been placement IV Rocephin pending UA/culture and se nsitivity 3. ESRD/HD; nephrology on board; patient had a Sunday dialysis schedule 4. Anemia of chronic disease; hemoglobin at baseline; patient receives Aranesp weekly and iron sulfate 325 mg daily 5. Diabetes mellitus type 2; patient takes glipizide; we will hold off on oral hypoglycemic therapy; monitor Accu-Cheks before meals and at bedtime with insulin sliding scale 6. Atrial fibrillation; patient is rate controlled on amiodarone 200 mg daily; continue with anticoagulation therapy 7. Hyperlipidemia; Lipitor 40 mg by mouth daily at bedtime 8. Hyperuricemia/gout; allopurinol 300 mg daily DVT prophylaxis; SCDs CODE STATUS; full code
--- NOTE | 2023-08-01 14:18 | P.PN ---
Subjective 78-year-old white male with history of atrial fibrillation, hypertension, hyperlipidemia, diabetes mellitus, chronic renal failure/chronic kidney disease on hemodialysis, chronic diastolic CHF with moderate to severe tricuspid regurgitation, pulmonary hypertension, obstructive sleep apnea, was brought into the ER with mostly history of weakness and falling easily. Workup completed in ED including blood work reveals WBC of 9.2, hemoglobin of 10.8 and platelet count of 183, sodium 132, potassium level wasn't done due to hemolyzed specimen, BUN/creatinine of 45/1.43 and blood glucose of 176, UA is positive for blood and leukocyte esterase; Patient was admitted for further evaluation of weakness/falls She does currently receiving dialysis; awake and alert; not reporting any complaints -----Patient was on the medical floor, and around 12:30 AM last night, patient had a sudden cardiac arrest. And TRISHA RAYO was called. Patient received 3 A of epinephrine and 1 amp of bicarb, his down time was felt to be about 14 minutes of CPR. In the meantime the patient was intubated, and placed on mechanical ventilation. CT of the brain is pending, neurologic consultation is pending, chest x-ray showed mostly mild interstitial edema. 07/29/2023 Patient is seen and evaluated in ICU; remains intubated Vital signs blood pressure of 102/60, pulse 74 O2 saturation 97% -- Patient had cardiopulmonary arrest with PE and lasting about 14 minutes; concern about anoxic encephalopathy versus brain injury -- Nephrology on board; CT of the head is ordered with stat EEG -- Intensive care service on board for vent management; remains on hemodialysis -- Antibiotics in form of ceftriaxone -- Patient has been placed on nutritional support 07/30/2023 Patient remains in the ICU sedated and intubated with him the/critical care team followed closely Name is been followed closely by neurosurgery service for possibly Anoxic brain injury Tenderness on gentle hydration with normal saline and 50 mL, Rocephin, home dose of full liquids 5 mg for his chronic atrial fibrillation Creatinine today 3.5-German close to baseline compared to 4.4 upon admission. Echocardiogram showed ejection fraction 35% and septum is hypokinetic 07/31/2023 Patient remains intubated in the ICU with t[place]/ team and neurology service followed closely Patient blood pressure stable Physical hemoglobin 9.7, creatinine improvement to 2.8 he is continued on ceftriaxone, normal saline at 50 mm per hour and eliquis Objective - Vital Signs Vital signs: Vital Signs Temp 97.8 F 08/01/23 12:00 Pulse 75 08/01/23 14:00 Resp 14 08/01/23 14:00 BP 108/62 08/01/23 08:00 Pulse Ox 95 08/01/23 14:00 FiO2 55 08/01/23 12:04 Intake & Output 07/31/23 08/01/23 08/01/23 18:59 06:59 18:59 Intake Total 3361.996 6900.954 1320.423 Output Total 0 0 Balance 8411.581 8020.954 1320.423 Weight 132.7 kg Intake: IV 661 689 331 Pressure Bag (0.9 Sodium 36 39 21 Chloride) Sodium Chloride 0.9% 1, 575 650 150 000 ml @ 50 mls/hr IV . Q20H [facility] Rx#:[id number] cefTRIAXone 1 gm In 50 160 Sodium Chloride 0.9% 50 ml @ 100 mls/hr IVPB Q24HR [facility] Rx#:[id number] Intake, IV Titration 233.066 340.954 409.423 Amount Norepinephrine 4 mg In 233.066 270.998 Sodium Chloride 0.9% 250 ml @ 0.03 MCG/KG/MIN 13. 361 mls/hr IV .Q19H1M [facility] Rx#:[id number] Norepinephrine 8 mg In 340.954 138.425 Sodium Chloride 0.9% 250 ml @ 0.11 MCG/KG/MIN 27. 947 mls/hr IV .Q9H14M [facility] Rx#:[id number] Oral 105 Tube Feeding 550 715 415 Other 60 60 Output: Urine 0 0 Other: # Voids 1 1 ABP, PAP, CO, CI - Last Documented Arterial Blood Pressure 105/48 - Exam GENERAL: The patient is an sedated HEENT: Pupils are round and equally reacting to light. EOMI. No scleral icterus. No conjunctival pallor. Normocephalic, atraumatic. No pharyngeal erythema. No thyromegaly. CARDIOVASCULAR: S1 and S2 present. No murmurs, rubs, or gallops. PULMONARY: Chest is clear to auscultation, no wheezing , no crackles. ABDOMEN: Soft, nontender, nondistended, normoactive bowel sounds. No palpable organomegaly. MUSCULOSKELETAL: No joint swelling or deformity. EXTREMITIES: No cyanosis, clubbing, or pedal edema. NEUROLOGICAL: Gross neurological examination did not reveal any focal deficits. SKIN: No rashes. no petechiae. - Labs CBC & Chem 7: 08/01/23 04:00 08/01/23 04:00 Labs: Abnormal Lab Results - Last 24 Hours (Table) 07/31/23 07/31/23 08/01/23 Range/Units 08:00 18:07 00:41 RBC (4.30-5.90) m/uL Hgb (13.0-17.5) gm/dL Hct (39.0-53.0) % MCV (80.0-100.0) fL MCHC (31.0-37.0) g/dL RDW (11.5-15.5) % Macrocytosis ABG pO2 (83-108) mmHg ABG Total CO2 (19-24) mmol/L Sodium (137-145) mmol/L BUN (9-20) mg/dL Creatinine (0.66-1.25) mg/dL Glucose (74-99) mg/dL POC Glucose (mg/dL) 196 H 225 H (70-110) mg/dL Calcium (8.4-10.2) mg/dL Procalcitonin 0.85 H (0.02-0.09) ng/mL 08/01/23 08/01/23 08/01/23 Range/Units 04:00 04:00 05:53 RBC 3.06 L (4.30-5.90) m/uL Hgb 9.8 L (13.0-17.5) gm/dL Hct 31.9 L (39.0-53.0) % MCV 104.2 H (80.0-100.0) fL MCHC 30.8 L (31.0-37.0) g/dL RDW 19.7 H (11.5-15.5) % Macrocytosis Marked A ABG pO2 76 L (83-108) mmHg ABG Total CO2 25 H (19-24) mmol/L Sodium 134 L (137-145) mmol/L BUN 44 H (9-20) mg/dL Creatinine 3.40 H (0.66-1.25) mg/dL Glucose 201 H (74-99) mg/dL POC Glucose (mg/dL) (70-110) mg/dL Calcium 8.3 L (8.4-10.2) mg/dL Procalcitonin (0.02-0.09) ng/mL 08/01/23 08/01/23 Range/Units 06:25 11:36 RBC (4.30-5.90) m/uL Hgb (13.0-17.5) gm/dL Hct (39.0-53.0) % MCV (80.0-100.0) fL MCHC (31.0-37.0) g/dL RDW (11.5-15.5) % Macrocytosis ABG pO2 (83-108) mmHg ABG Total CO2 (19-24) mmol/L Sodium (137-145) mmol/L BUN (9-20) mg/dL Creatinine (0.66-1.25) mg/dL Glucose (74-99) mg/dL POC Glucose (mg/dL) 223 H 207 H (70-110) mg/dL Calcium (8.4-10.2) mg/dL Procalcitonin (0.02-0.09) ng/mL Assessment and Plan Assessment: 1. Weakness/ debility; likely multifactorial; PT/OT consulted 2. UTI; patient has been placement IV Rocephin pending UA/culture and sensitivity 3. ESRD/HD; nephrology on board; patient had a Sunday dialysis schedule 4. Anemia of chronic disease; hemoglobin at baseline; patient receives Aranesp weekly and iron sulfate 325 mg daily 5. Diabetes mellitus type 2; patient takes glipizide; we will hold off on oral hypoglycemic therapy; monitor Accu-Cheks before meals and at bedtime with insulin sliding scale 6. Atrial fibrillation; patient is rate controlled on amiodarone 200 mg daily; continue with anticoagulation therapy 7. Hyperlipidemia; Lipitor 40 mg by mouth daily at bedtime 8. Hyperuricemia/gout; allopurinol 300 mg daily DVT prophylaxis; SCDs CODE STATUS; full code
--- NOTE | 2023-08-01 14:48 | P.PN ---
Subjective Progress Note Date: 08/01/23 78-year-old white male with history of atrial fibrillation, hypertension, hyperlipidemia, diabetes mellitus, chronic renal failure/chronic kidney disease on hemodialysis, chronic diastolic CHF with moderate to severe tricuspid regurgitation, pulmonary hypertension, obstructive sleep apnea, was brought in to the ER with mostly history of weakness and falling easily. Workup completed in ED including blood work reveals WBC of 9.2, hemoglobin of 10.8 and platelet count of 183, sodium 132, potassium level wasn't done due to hemolyzed specimen, BUN/creatinine of 45/1.43 and blood glucose of 176, UA is positive for blood and leukocyte esterase; Patient was admitted for further evaluation of weakness/falls She does currently receiving dialysis; awake and alert; not reporting any complaints -----Patient was on the medical floor, and around 12:30 AM last night, patient had a sudden cardiac arrest. And TRISHA RAYO was called. Patient received 3 A of epinephrine and 1 amp of bicarb, his down time was felt to be about 14 minutes of CPR. In the meantime the patient was intubated, and placed on mechanical ventilation. CT of the brain is pending, neurologic consultation is pending, chest x-ray sh owed mostly mild interstitial edema. 07/29/2023 Patient is seen and evaluated in ICU; remains intubated Vital signs blood pressure of 102/60, pulse 74 O2 saturation 97% -- Patient had cardiopulmonary arrest with PE and lasting about 14 minutes; concern about anoxic encephalopathy versus brain injury -- Nephrology on board; CT of the head is ordered with stat EEG -- Intensive care service on board for vent management; remains on hemodialysis -- Antibiotics in form of ceftriaxone -- Patient has been placed on nutritional support 07/30/2023 Patient remains in the ICU sedated and intubated with him the/critical care team followed closely Name is been followed closely by neurosurgery service for possibly Anoxic brain injury Tenderness on gentle hydration with normal saline and 50 mL, Rocephin, home dose of full liquids 5 mg for his chronic atrial fibrillation Creatinine today 3.5-Lithuanian close to baseline compared to 4.4 upon admission. Echocardiogram showed ejection fraction 35% and septum is hypokinetic 08/01. Patient seen and examined. Currently intubated, no change in neurological status REVIEW OF SYSTEMS: Cannot be obtained as patient is unresponsive, GCS of 5 PHYSICAL EXAMINATION: GENERAL: The patient is obtunded, ill-looking HEENT: Pupils are round and equally reacting to light. EOMI. No scleral icterus. No conjunctival pallor. Normocephalic, atraumatic. No pharyngeal erythema. No thyromegaly. CARDIOVASCULAR: S1 and S2 present. No murmurs, rubs, or gallops. PULMONARY: Chest is clear to auscultation, no wheezing or crackles. ABDOMEN: Soft, nontender, nondistended, normoactive bowel sounds. No palpable organomegaly. MUSCULOSKELETAL: No joint swelling or deformity. EXTREMITIES: No cyanosis, clubbing, or pedal edema. NEUROLOGICAL: Obtunded, GCS of 5 SKIN: No rashes. Assessment and plan Status post cardiac arrest, with CPR and return of spontaneous circulation, with a 14 minute downtime. Patient had PEA Status post intubation and mechanical ventilation, 07/28/2023 Anoxic encephalopathy Chronic diastolic CHF Severe pulmonary hypertension Acute metabolic acidosis, secondary to chronic kidney disease Possible orthostatic hypotension, with history of recurrent falls Hyperkalemia, secondary to chronic kidney disease Anemia of chronic disease History of sleep apnea syndrome History of sepsis and septic shock Chronic atrial fibrillation Type 2 diabetes with diabetic nephropathy History of sick sinus syndrome, status post pacemaker implantation Monitor vital signs Monitor CBC Monitor CMP Aggressive bronchopulmonary hygiene Serial ABGs Continue vent management per ICU Continue Levophed Continue Keppra EEG ordered Continue Eliquis and amiodarone Neurology following Cardiology following critical care following Labs and medication were reviewed.. Continue same treatment. Continue with symptomatic treatment. Resume home medication. Monitor labs and vitals. DVT and GI prophylaxis. Further recommendations as per clinical course of the patient Dictation was produced using [employer] dictation software. please excuse any grammatical, word or spelling errors. Objective - Vital Signs Vital signs: Vital Signs Temp 98.1 F 08/01/23 08:00 Pulse 76 08/01/23 09:00 Resp 22 08/01/23 09:00 BP 108/62 08/01/23 08:00 Pulse Ox 94 L 08/01/23 09:00 FiO2 55 08/01/23 08:43 Intake & Output 07/31/23 08/01/23 08/01/23 18:59 06:59 18:59 Intake Total 8430.944 9777.954 635.715 Output Total 0 0 Balance 0365.000 3118.954 635.715 Weight 132.7 kg Intake: IV 661 689 106 Pressure Bag (0.9 Sodium 36 39 6 Chloride) Sodium Chloride 0.9% 1, 575 650 100 000 ml @ 50 mls/hr IV . Q20H [facility] Rx#:[id number] cefTRIAXone 1 gm In 50 Sodium Chloride 0.9% 50 ml @ 100 mls/hr IVPB Q24HR [facility] Rx#:[id number] Intake, IV Titration 233.066 340.954 389.715 Amount Norepinephrine 4 mg In 233.066 254 Sodium Chloride 0.9% 250 ml @ 0.03 MCG/KG/MIN 13. 361 mls/hr IV .Q19H1M [facility] Rx#:[id number] Norepinephrine 8 mg In 340.954 135.715 Sodium Chloride 0.9% 250 ml @ 0.11 MCG/KG/MIN 27. 947 mls/hr IV .Q9H14M [facility] Rx#:[id number] Tube Feeding 550 715 110 Other 60 30 Output: Urine 0 0 Other: # Voids 1 1 ABP, PAP, CO, CI - Last Documented Arterial Blood Pressure 116/51 - Labs CBC & Chem 7: 08/01/23 04:00 08/01/23 04:00 Labs: Abnormal Lab Results - Last 24 Hours (Table) 07/31/23 07/31/23 07/31/23 Range/Units 08:00 11:33 12:21 RBC (4.30-5.90) m/uL Hgb (13.0-17.5) gm/dL Hct (39.0-53.0) % MCV (80.0-100.0) fL MCHC (31.0-37.0) g/dL RDW (11.5-15.5) % Macrocytosis ABG pO2 (83-108) mmHg ABG Total CO2 (19-24) mmol/L Sodium (137-145) mmol/L BUN (9-20) mg/dL Creatinine (0.66-1.25) mg/dL Glucose (74-99) mg/dL POC Glucose (mg/dL) 215 H (70-110) mg/dL Calcium (8.4-10.2) mg/dL Troponin I 0.050 H* (0.000-0.034) ng/mL Procalcitonin 0.85 H (0.02-0.09) ng/mL 07/31/23 08/01/23 08/01/23 Range/Units 18:07 00:41 04:00 RBC 3.06 L (4.30-5.90) m/uL Hgb 9.8 L (13.0-17.5) gm/dL Hct 31.9 L (39.0-53.0) % MCV 104.2 H (80.0-100.0) fL MCHC 30.8 L (31.0-37.0) g/dL RDW 19.7 H (11.5-15.5) % Macrocytosis Marked A ABG pO2 (83-108) mmHg ABG Total CO2 (19-24) mmol/L Sodium (137-145) mmol/L BUN (9-20) mg/dL Creatinine (0.66-1.25) mg/dL Glucose (74-99) mg/dL POC Glucose (mg/dL) 196 H 225 H (70-110) mg/dL Calcium (8.4-10.2) mg/dL Troponin I (0.000-0.034) ng/mL Procalcitonin (0.02-0.09) ng/mL 08/01/23 08/01/23 08/01/23 Range/Units 04:00 05:53 06:25 RBC (4.30-5.90) m/uL Hgb (13.0-17.5) gm/dL Hct (39.0-53.0) % MCV (80.0-100.0) fL MCHC (31.0-37.0) g/dL RDW (11.5-15.5) % Macrocytosis ABG pO2 76 L (83-108) mmHg ABG Total CO2 25 H (19-24) mmol/L Sodium 134 L (137-145) mmol/L BUN 44 H (9-20) mg/dL Creatinine 3.40 H (0.66-1.25) mg/dL Glucose 201 H (74-99) mg/dL POC Glucose (mg/dL) 223 H (70-110) mg/dL Calcium 8.3 L (8.4-10.2) mg/dL Troponin I (0.000-0.034) ng/mL Procalcitonin (0.02-0.09) ng/mL
[2023-08-01 18:09] LABS: Glucose,Whole Blood 147 mg/dL (70-110)
[2023-08-01] MEDS: ATORVASTATIN 10 MG TAB PO SCH (20:12)
[2023-08-01 23:58] LABS: Glucose,Whole Blood 213 mg/dL (70-110)
[2023-08-02] MEDS: INSULIN ASPART (NovoLOG) 100 UNIT/ML VIAL SQ SCH ×4 (00:21→18:02)
[2023-08-02] MEDS: NOREPINEPHRINE 4 MG in SODIUM CHLORIDE 0.9% 250 ML IV SCH ×3 (00:21→22:25)
[2023-08-02] MEDS: SODIUM CHLORIDE 0.9% 1,000 ML IV SCH ×2 (00:22→18:02)
[2023-08-02] MEDS: IPRATROPIUM-ALBUTEROL 3 ML NEB INHALATION SCH ×6 (00:41→19:38)
--- NOTE | 2023-08-02 01:12 | EEG ---
ELECTROENCEPHALOGRAM REPORT PREAMBLE: This is a 78-year-old male with cardiac arrest. The patient has persistent encephalopathies. The patient is off sedation. Patient is comatose. EEG FINDINGS: This is a 21-channel digital EEG recorded with video component, utilizing 10/20 international system with referential and bipolar montages. The recording starts and continues with presence of diffuse attenuated amplitude, with intermixed low-to- moderate amplitude 1-2 hertz delta waves seen in bihemispheric region. Background does not seem to be reactive to eye opening or closing. During later part of the study, the patient was given nailbed pressure, after which there were some intermittent bifrontal high amplitude monophasic or biphasic waves seen. No electrographic seizure was recorded. IMPRESSION: This is an abnormal EEG due to background slowing of severe degree, suggestive of generalized cerebral dysfunction as can be seen with toxic metabolic encephalopathy or related to diffuse structural brain abnormality, like in this case with anoxic encephalopathy. After activation with nailbed pressure, intermittent high amplitude monophasic or biphasic bifrontal waves were seen, which did not appear clearly epileptiform. However, may indicate underlying cortical irritability. No electrographic seizure was recorded. Followup EEG recommended, if clinically indicated. MMODL / IJN: [id number] / MTDD
[2023-08-02 01:38] VITALS: BP 95/58
[2023-08-02 05:11] LABS: Anisocytosis Slight; Basophils % (A) 1 %; Eosinophils # (A) 0.1 k/uL (0-0.7); Eosinophils % (A) 1 %; HCT 30.8 % (39.0-53.0); HGB 9.5 gm/dL (13.0-17.5); Hypochromasia Marked; Lymphocytes % (A) 11 %; MCHC 30.8 g/dL (31.0-37.0); MCV 104.1 fL (80.0-100.0); Macrocytosis Marked; Monocytes # (A) 0.7 k/uL (0-1.0); Monocytes % (A) 7 %; Neutrophils # (A) 7.5 k/uL (1.3-7.7); Neutrophils % (A) 79 %; Platelet Count 182 k/uL (150-450); Poikilocytosis Slight; RBC 2.96 m/uL (4.30-5.90); RDW 19.6 % (11.5-15.5); WBC 9.5 k/uL (3.8-10.6)
[2023-08-02 05:30] LABS: African American GFR (CKD) 26 (>60 ml/min/1.73 sqM); Anion Gap 10 mmol/L; Blood Urea Nitrogen 38 mg/dL (9-20); Calcium 8.2 mg/dL (8.4-10.2); Carbon Dioxide 24 mmol/L (22-30); Chloride 97 mmol/L (98-107); Glucose 212 mg/dL (74-99); Non-African American GFR(CKD) 23 (>60 ml/min/1.73 sqM); Potassium 4.1 mmol/L (3.5-5.1); Sodium 131 mmol/L (137-145)
[2023-08-02 05:56] LABS: ABG Base Excess 1.9 mmol/L; ABG HCO3 26 mmol/L (21-25); ABG Oxygen Saturation 94.7 % (94-97); ABG PCO2 36 mmHg (35-45); ABG PH 7.46 (7.35-7.45); ABG PO2 71 mmHg (83-108); ABG TCO2 27 mmol/L (19-24); Allen Test Performed? Yes
[2023-08-02 06:19] LABS: Glucose,Whole Blood 217 mg/dL (70-110)
[2023-08-02] MEDS: MIDODRINE 5 MG TAB PO SCH ×3 (06:37→16:03)
--- NOTE | 2023-08-02 07:26 | P.PN ---
Subjective Progress Note Date: 08/02/23 Principal diagnosis: Cardiac arrest The patient is a 78-year-old gentleman with history of cardiomyopathy with the last echo showed an EF around 35% and also permanent atrial fibrillation and also permanent pacemaker and morbid obesity and sleep apnea and COPD on multiple comorbid conditions. He was admitted to the hospital with generalized weakness and had a cardiac arrest on the floor was pulseless electrical activity required CPR for some time. Subsequently he was intubated and he was brought to the intensive care unit. Beside that the patient currently is in renal failure 07/30/2023 The patient was seen and evaluated this morning. He is currently unstable and requiring vasopressors. He is in nature fibrillation with overall controlled heart rate on the current medical regimen. He is on oral anticoagulation as well. He is of any sedation at this point from the morning. We'll see the patient would be able to wake up and there is no evidence of any anoxic encephalopathy. This too early. At this point. No echo was ordered since the patient had cardiac arrest we'll obtain an echocardiogram. The examination is remarkable for patient intubated on mechanical ventilation who is morbidly obese with stable vital signs of course knowing that he is on vasopressors at this point. The chest examination is remarkable for diminished breathing sounds bilaterally in the cardiovascular examination is remarkable for regular rhythm with distant heart sounds and the extremities has mild bilateral lower extremity edema. 07/31/2023 The patient was evaluated this morning. He continues to be intubated on mechanical ventilation. He continues to be hemodynamically unstable and requiring vasopressors. Beside that he is not waking up in spite of not receiving any sedation at this point. She continues to be on oral anticoagulation with liquids. The echo revealed impaired LV function was EF around 35% with septal hypokinesia. His first troponin was borderline elevated going to obtain 2 more sets of troponin. Anyway were not made to pursue any invasive workup on him at this point to we know what is neurology checks status and neurology is on the case. We'll follow-up with the creatinine. The examination is remarkable for the patient's being intubated on mechanical ventilation with upper extremities and lower extremities edema and distant heart sounds with regular rate and rhythm and initially breathing sounds bilaterally August [id number] The patient was seen and evaluated this morning. Unfortunately still lethargic and only responding to severe/painful stimulation. Neurology is on the case and there is a concern about anoxic encephalopathy. From the cardiac standpoint overview, he is stable. He is not on any vasopressors or inotropic. He continues to be in sinus mechanism with first-degree AV block. The examination is remarkable for lethargy with a stable vital signs and diminished breathing sounds bilaterally and distant heart sounds 08/02/2023 The patient was seen this morning. Unfortunately he is not waking up. There is a concern about anoxic encephalopathy. Otherwise he has been normal sinus mechanism. The pressure continues to be on vasopressors. From the cardiac vascular standpoint of view would continue the current medical regimen including oral anticoagulation and continue following up with the patient. The examination is remarkable for the patient being intubated on mechanical ventilation with stable vital signs on the current dose of vasopressors and bilateral expiratory wheezing and bilateral lower extremity edema and regular rate and rhythm Assessment Cardiac arrest was pulseless electrical activity Chronic atrial fibrillation with controlled heart rate Cardiomyopathy Renal failure Possible anoxic encephalopathy Permanent pacemaker Multiple comorbid conditions Plan Continue the current medical regimen Follow-up with the neurology evaluation Further recommendation to follow Objective - Vital Signs Vital signs: Vital Signs Temp 97.8 F 08/02/23 04:00 Pulse 80 08/02/23 07:15 Resp 21 08/02/23 07:15 BP 95/58 08/02/23 01:15 Pulse Ox 96 08/02/23 07:15 FiO2 55 08/02/23 04:35 Intake & Output 08/01/23 08/02/23 08/02/23 18:59 06:59 18:59 Intake Total 2413.235 1188.329 100 Output Total 1900 Balance 292.836 3838.329 100 Weight 132.7 kg 133.6 kg Intake: IV 446 253 23 Pressure Bag (0.9 Sodium 36 33 3 Chloride) Sodium Chloride 0.9% 1, 150 000 ml @ 50 mls/hr IV . Q20H [facility] Rx#:[id number] cefTRIAXone 1 gm In 260 220 20 Sodium Chloride 0.9% 50 ml @ 100 mls/hr IVPB Q24HR [facility] Rx#:[id number] Intake, IV Titration 560.235 88.329 Amount Norepinephrine 4 mg In 412.917 88.329 Sodium Chloride 0.9% 250 ml @ 0.03 MCG/KG/MIN 13. 361 mls/hr IV .Q19H1M [facility] Rx#:[id number] Norepinephrine 8 mg In 147.318 Sodium Chloride 0.9% 250 ml @ 0.11 MCG/KG/MIN 27. 947 mls/hr IV .Q9H14M [facility] Rx#:[id number] Oral 165 Tube Feeding 752 847 77 Hemodialysis 400 Other 90 Output: Urine 0 Hemodialysis 1900 Other: # Voids 1 0 0 ABP, PAP, CO, CI - Last Documented Arterial Blood Pressure 117/48 - Labs CBC & Chem 7: 08/02/23 05:00 08/02/23 05:00 Labs: Abnormal Lab Results - Last 24 Hours (Table) 08/01/23 08/01/23 08/01/23 Range/Units 11:36 18:08 23:56 RBC (4.30-5.90) m/uL Hgb (13.0-17.5) gm/dL Hct (39.0-53.0) % MCV (80.0-100.0) fL MCHC (31.0-37.0) g/dL RDW (11.5-15.5) % Macrocytosis ABG pH (7.35-7.45) ABG pO2 (83-108) mmHg ABG HCO3 (21-25) mmol/L ABG Total CO2 (19-24) mmol/L Sodium (137-145) mmol/L Chloride (98-107) mmol/L BUN (9-20) mg/dL Creatinine (0.66-1.25) mg/dL Glucose (74-99) mg/dL POC Glucose (mg/dL) 207 H 147 H 213 H (70-110) mg/dL Calcium (8.4-10.2) mg/dL 08/02/23 08/02/23 08/02/23 Range/Units 05:00 05:00 05:47 RBC 2.96 L (4.30-5.90) m/uL Hgb 9.5 L (13.0-17.5) gm/dL Hct 30.8 L (39.0-53.0) % MCV 104.1 H (80.0-100.0) fL MCHC 30.8 L (31.0-37.0) g/dL RDW 19.6 H (11.5-15.5) % Macrocytosis Marked A ABG pH 7.46 H (7.35-7.45) ABG pO2 71 L (83-108) mmHg ABG HCO3 26 H (21-25) mmol/L ABG Total CO2 27 H (19-24) mmol/L Sodium 131 L (137-145) mmol/L Chloride 97 L (98-107) mmol/L BUN 38 H (9-20) mg/dL Creatinine 2.62 H (0.66-1.25) mg/dL Glucose 212 H (74-99) mg/dL POC Glucose (mg/dL) (70-110) mg/dL Calcium 8.2 L (8.4-10.2) mg/dL 08/02/23 Range/Units 06:17 RBC (4.30-5.90) m/uL Hgb (13.0-17.5) gm/dL Hct (39.0-53.0) % MCV (80.0-100.0) fL MCHC (31.0-37.0) g/dL RDW (11.5-15.5) % Macrocytosis ABG pH (7.35-7.45) ABG pO2 (83-108) mmHg ABG HCO3 (21-25) mmol/L ABG Total CO2 (19-24) mmol/L Sodium (137-145) mmol/L Chloride (98-107) mmol/L BUN (9-20) mg/dL Creatinine (0.66-1.25) mg/dL Glucose (74-99) mg/dL POC Glucose (mg/dL) 217 H (70-110) mg/dL Calcium (8.4-10.2) mg/dL
[2023-08-02] MEDS: CHLORHEXIDINE GLUCONATE 15 ML CUP MUCOUS MEM SCH ×2 (09:18→19:51)
[2023-08-02] MEDS: MULTIVITAMINS, THERA 1 EACH TAB PO SCH (09:18)
[2023-08-02] MEDS: levETIRAcetam IV 500 MG/5 ML VIAL IVP SCH ×2 (09:18→19:51)
[2023-08-02] MEDS: ACETAMINOPHEN TAB 325 MG TAB PO SCH ×2 (09:18→19:51)
[2023-08-02] MEDS: PANTOPRAZOLE 40 MG TABLET PO SCH (09:18)
[2023-08-02] MEDS: APIXABAN 5 MG TAB PO SCH ×2 (09:19→19:51)
[2023-08-02] MEDS: allopurinoL 300 MG TAB PO SCH (09:20)
[2023-08-02] MEDS: DOCUSATE ORAL SOLN 100 MG/10 ML CUP PO SCH ×2 (09:20→19:51)
[2023-08-02] MEDS: FLUDROCORTISONE 0.1 MG TAB PO SCH (09:21)
[2023-08-02] MEDS: AMIODARONE 100 MG TAB PO SCH (09:21)
[2023-08-02] MEDS: FERROUS SULFATE 325 MG TAB PO SCH (09:24)
[2023-08-02] MEDS: SUCRALFATE 1 GM TAB PO SCH ×2 (09:29→19:51)
--- NOTE | 2023-08-02 10:52 | P.PN ---
Subjective Progress Note Date: 08/01/23 08/01/2022: Patient was seen for a follow-up. Patient's and patient's daughter were present today. Patient is not showing any significant clinical improvement. He is not following commands. He has a weak gag. Pupils are round and reacting sluggishly. No purposeful movement. No seizure-like activity. Occasional myoclonic type jerks noted. 07/31/2022: Patient was seen for a follow-up. Patient continues to be unresponsive. Patient currently on nor epinephrine 0.11 mcg/kg per minute. Patient not improved. 07/30/2022: Patient was initially seen by Dr. Kirill Marcos. Please refer to his note for details. Patient is a 78-year-old male with in-house cardiopulmonary arrest. Patient does have brainstem reflexes. CT head negative. EKG reveals severe encephalopathy and rare epileptiform discharges over the right central/temporal. Patient was started on Keppra. Patient at present on norepinephrine 0.06 mcg/kg per minute. Also on Rocephin 1 g. Patient has been off propofol since 5:45 AM. He is on CPAP, tolerating well. He withdraws to pain per nurse report. No obvious seizure-like activity. Some of the workup during his hospital visit consisted of: He is having episodes of hypotensive 70-80 over 40-50s and also his pulse ox was as low as 81% liters. Most recent sodium is trended up at 133, potassium is 5.9, glucose is 170s to 200s, AST ALT was within normal limits Plasma lactic acid vein is 2.8 and most recent is 1.3. TSH as a 7.090. Ammonia is 25. CT head is reported as similar mild generalized atrophy. No acute intracranial abnormality seen. I personally reviewed CT head and agree there is no acute or subacute ischemia or bleed. Objective - Vital Signs Vital signs: Vital Signs Temp 97.8 F 08/01/23 12:00 Pulse 75 08/01/23 15:15 Resp 22 08/01/23 15:15 BP 108/62 08/01/23 08:00 Pulse Ox 96 08/01/23 15:15 FiO2 55 08/01/23 15:37 Intake & Output 07/31/23 08/01/23 08/01/23 18:59 06:59 18:59 Intake Total 8303.919 9295.954 1408.423 Output Total 0 0 Balance 1778.525 8741.954 1408.423 Weight 132.7 kg 132.7 kg Intake: IV 661 689 354 Pressure Bag (0.9 Sodium 36 39 24 Chloride) Sodium Chloride 0.9% 1, 575 650 150 000 ml @ 50 mls/hr IV . Q20H SERGEY Rx#:[id number] cefTRIAXone 1 gm In 50 180 Sodium Chloride 0.9% 50 ml @ 100 mls/hr IVPB Q24HR SERGEY Rx#:[id number] Intake, IV Titration 233.066 340.954 409.423 Amount Norepinephrine 4 mg In 233.066 270.998 Sodium Chloride 0.9% 250 ml @ 0.03 MCG/KG/MIN 13. 361 mls/hr IV .Q19H1M SERGEY Rx#:[id number] Norepinephrine 8 mg In 340.954 138.425 Sodium Chloride 0.9% 250 ml @ 0.11 MCG/KG/MIN 27. 947 mls/hr IV .Q9H14M SERGEY Rx#:[id number] Oral 105 Tube Feeding 550 715 480 Other 60 60 Output: Urine 0 0 Other: # Voids 1 1 ABP, PAP, CO, CI - Last Documented Arterial Blood Pressure 103/47 - Exam Patient is intubated, currently not on any sedation. Patient still almost comatose, with GCS of 5 (E2, V1, M2). Patient has decer ebrate posturing with noxious stimuli in bilateral upper limbs. In the lower limbs, patient slightly flexes his foot to painful stimuli on either sides. Pupils are equal, round and reacting. Gaze is more straightforwards. Oculocephalics absent. No obvious seizure-like activity. Tone is equal bi laterally. Reflexes are absent Patient does not respond to fine touch, however with painful stimuli, patient has decerebrate posturing. - Labs CBC & Chem 7: 08/02/23 05:00 08/02/23 05:00 Labs: Abnormal Lab Results - Last 24 Hours (Table) 07/31/23 08/01/23 08/01/23 Range/Units 18:07 00:41 04:00 RBC 3.06 L (4.30-5.90) m/uL Hgb 9.8 L (13.0-17.5) gm/dL Hct 31.9 L (39.0-53.0) % MCV 104.2 H (80.0-100.0) fL MCHC 30.8 L (31.0-37.0) g/dL RDW 19.7 H (11.5-15.5) % Macrocytosis Marked A ABG pO2 (83-108) mmHg ABG Total CO2 (19-24) mmol/L Sodium (137-145) mmol/L BUN (9-20) mg/dL Creatinine (0.66-1.25) mg/dL Glucose (74-99) mg/dL POC Glucose (mg/dL) 196 H 225 H (70-110) mg/dL Calcium (8.4-10.2) mg/dL 08/01/23 08/01/23 08/01/23 Range/Units 04:00 05:53 06:25 RBC (4.30-5.90) m/uL Hgb (13.0-17.5) gm/dL Hct (39.0-53.0) % MCV (80.0-100.0) fL MCHC (31.0-37.0) g/dL RDW (11.5-15.5) % Macrocytosis ABG pO2 76 L (83-108) mmHg ABG Total CO2 25 H (19-24) mmol/L Sodium 134 L (137-145) mmol/L BUN 44 H (9-20) mg/dL Creatinine 3.40 H (0.66-1.25) mg/dL Glucose 201 H (74-99) mg/dL POC Glucose (mg/dL) 223 H (70-110) mg/dL Calcium 8.3 L (8.4-10.2) mg/dL 08/01/23 Range/Units 11:36 RBC (4.30-5.90) m/uL Hgb (13.0-17.5) gm/dL Hct (39.0-53.0) % MCV (80.0-100.0) fL MCHC (31.0-37.0) g/dL RDW (11.5-15.5) % Macrocytosis ABG pO2 (83-108) mmHg ABG Total CO2 (19-24) mmol/L Sodium (137-145) mmol/L BUN (9-20) mg/dL Creatinine (0.66-1.25) mg/dL Glucose (74-99) mg/dL POC Glucose (mg/dL) 207 H (70-110) mg/dL Calcium (8.4-10.2) mg/dL Assessment and Plan Assessment: This is a 78 y/o gentleman with multiple medical problems who presents to ED on 07/27/2023 because of generalized weakness and a fall. He had difficulty getting out of chair to bathroom. In our facility at 12:30am on 07/28/2023 he had cardiopulmonary arrest, with downtime lasting 14 minutes. Acute cardiopulmonary arrest lasting 14 minutes. He was in PEA per nursing staff. 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 Patient is off sedation. Patient continues to be severely obtunded with GCS of 5. On examination has brainstem reflexes (breathing over the vent, open eyes and has intact gag/cough). CT head is negative for acute/subacute changes. Also component of encephalopathy due to metabolic and hypoxic encephalopathy. Hypotensive on epinephrine Diabetes mellitus that is on going History of Cardiomyopathy Sleep apnea History of atrial fibrillation on eliquis Chronic renal failure on hemodialysis Plan: Patient so far not showing significant clinical improvement. Patient's GCS is 5. Patient is off sedation for over 48 hours. Repeat EEG performed today was abnormal due to background slowing of severe degree, suggestive of generalized cerebral dysfunction as can be seen with toxic metabolic encephalopathy or related to diffuse structural brain abnormality, like in this case with anoxic encephalopathy. After activation with nailbed pressure, intermittent high amplitude monophasic or biphasic bifrontal waves were seen, which did not appear clearly epileptiform. However may indicate underlying cortical irritability. No electrographic seizure was recorded. Follow-up EEG recommended, if clinically indicated. Initial EEG reviewed by Dr. Marcos revealed background slowing, suggestive of severe encephalopathy. Rare epileptiform discharges over the right central temporal region increases the risk for seizure. Otherwise no electrographic seizure was recorded. Clinical correlation recommended. Dr. Marcos started patient on Keppra. Repeat CT head to evaluate for cerebral edema. Patient has persistent hypotension, on Levophed. Management as per primary/ICU team. We'll defer the rest of the medical management to primary and other specialist Based upon lack of clinical improvement (4 days post arrest), and current EEG findings suggests poor prognosis. Discussed with patient's and daughter in detail.
[2023-08-02 11:40] LABS: Glucose,Whole Blood 225 mg/dL (70-110)
--- NOTE | 2023-08-02 11:57 | P.PN ---
Subjective Patient is seen for follow-up for end-stage renal disease. Patient remains on the vent. Sedation has been off for 3 days now. There is no improvement in mentation. Possible comfort care measures in am Objective - Vital Signs Vital signs: Vital Signs Temp 98.2 F 08/02/23 08:00 Pulse 88 08/02/23 11:40 Resp 23 08/02/23 11:40 BP 95/58 08/02/23 01:15 Pulse Ox 92 L 08/02/23 09:45 FiO2 55 08/02/23 11:00 Intake & Output 08/01/23 08/02/23 08/02/23 18:59 06:59 18:59 Intake Total 2413.235 1188.329 400 Output Total 1900 Balance 639.077 1925.329 400 Weight 132.7 kg 133.6 kg Intake: IV 446 253 92 Pressure Bag (0.9 Sodium 36 33 12 Chloride) Sodium Chloride 0.9% 1, 150 000 ml @ 50 mls/hr IV . Q20H SERGE[facility] Rx#:[id number] cefTRIAXone 1 gm In 260 220 80 Sodium Chloride 0.9% 50 ml @ 100 mls/hr IVPB Q24HR SER[facility] Rx#:[id number] Intake, IV Titration 560.235 88.329 Amount Norepinephrine 4 mg In 412.917 88.329 Sodium Chloride 0.9% 250 ml @ 0.03 MCG/KG/MIN 13. 361 mls/hr IV .Q19H1M SER[facility] Rx#:[id number] Norepinephrine 8 mg In 147.318 Sodium Chloride 0.9% 250 ml @ 0.11 MCG/KG/MIN 27. 947 mls/hr IV .Q9H14M SERGEY Rx#:[id number] Oral 165 Tube Feeding 752 847 308 Hemodialysis 400 Other 90 Output: Urine 0 Hemodialysis 1900 Other: # Voids 1 0 0 ABP, PAP, CO, CI - Last Documented Arterial Blood Pressure 105/47 - Exam Patient is on the vent. Unresponsive Examination of the heart S1 and S2 Examination of the lungs decreased breath sounds at the bases Abdomen is soft obese Examination lower extremity shows chronic skin skin changes 1+ edema noted. 2+ edema noted in bilateral upper extremities. - Labs CBC & Chem 7: 08/02/23 05:00 08/02/23 05:00 Labs: Abnormal Lab Results - Last 24 Hours (Table) 08/01/23 08/01/23 08/02/23 Range/Units 18:08 23:56 05:00 RBC 2.96 L (4.30-5.90) m/uL Hgb 9.5 L (13.0-17.5) gm/dL Hct 30.8 L (39.0-53.0) % MCV 104.1 H (80.0-100.0) fL MCHC 30.8 L (31.0-37.0) g/dL RDW 19.6 H (11.5-15.5) % Macrocytosis Marked A ABG pH (7.35-7.45) ABG pO2 (83-108) mmHg ABG HCO3 (21-25) mmol/L ABG Total CO2 (19-24) mmol/L Sodium (137-145) mmol/L Chloride (98-107) mmol/L BUN (9-20) mg/dL Creatinine (0.66-1.25) mg/dL Glucose (74-99) mg/dL POC Glucose (mg/dL) 147 H 213 H (70-110) mg/dL Calcium (8.4-10.2) mg/dL 08/02/23 08/02/23 08/02/23 Range/Units 05:00 05:47 06:17 RBC (4.30-5.90) m/uL Hgb (13.0-17.5) gm/dL Hct (39.0-53.0) % MCV (80.0-100.0) fL MCHC (31.0-37.0) g/dL RDW (11.5-15.5) % Macrocytosis ABG pH 7.46 H (7.35-7.45) ABG pO2 71 L (83-108) mmHg ABG HCO3 26 H (21-25) mmol/L ABG Total CO2 27 H (19-24) mmol/L Sodium 131 L (137-145) mmol/L Chloride 97 L (98-107) mmol/L BUN 38 H (9-20) mg/dL Creatinine 2.62 H (0.66-1.25) mg/dL Glucose 212 H (74-99) mg/dL POC Glucose (mg/dL) 217 H (70-110) mg/dL Calcium 8.2 L (8.4-10.2) mg/dL 08/02/23 Range/Units 11:38 RBC (4.30-5.90) m/uL Hgb (13.0-17.5) gm/dL Hct (39.0-53.0) % MCV (80.0-100.0) fL MCHC (31.0-37.0) g/dL RDW (11.5-15.5) % Macrocytosis ABG pH (7.35-7.45) ABG pO2 (83-108) mmHg ABG HCO3 (21-25) mmol/L ABG Total CO2 (19-24) mmol/L Sodium (137-145) mmol/L Chloride (98-107) mmol/L BUN (9-20) mg/dL Creatinine (0.66-1.25) mg/dL Glucose (74-99) mg/dL POC Glucose (mg/dL) 225 H (70-110) mg/dL Calcium (8.4-10.2) mg/dL Assessment and Plan Assessment: 1. End-stage renal disease maintained on hemodialysis on Sunday schedule via permacath. 2. Status post fall. No fractures noted. 3. Diabetes mellitus. 4. Metabolic acidosis secondary to chronic kidney disease. Improved. 5. Chronic diastolic CHF with moderate to severe tricuspid regurgitation and pulmonary hypertension. 6. Hyperkalemia secondary to CKD, improved post HD. Patient underwent hemodialysis July 27 and July 28, 2023. 7. Status post PEA arrest 07/28/2023 concern for anoxic encephalopathy. 8. Anemia of chronic kidney disease maintained on Aranesp. Plan: Hemodialysis in a.m. if code status remains with aggressive care. Overall prognosis is guarded
--- NOTE | 2023-08-02 12:08 | XR ---
EXAMINATION TYPE: XR chest 1V portable DATE OF EXAM: 08/02/2023 Comparison: 08/01/2023 Clinical History: 78-year-old male mechanical ventilation Findings: Left anterior chest wall pacemaker generator with right atrial and ventricular leads. ET tube tip at the medial clavicular heads. NG tube courses below the diaphragm. Heart moderately enlarged. Left bas ilar opacity persists. Ongoing blunting of the right costophrenic angle. Mild patchy interstitial den sity right lower lung similar. Right-sided double-lumen hemodialysis catheter with tips at the lower SVC. Impression: 1. Moderate cardiomegaly and possible pulmonary vascular congestion is similar. 2. Small effusions with adjacent atelectasis and/or consolidation, left greater than right are also s imilar.
--- NOTE | 2023-08-02 12:48 | P.PN ---
Subjective Progress Note Date: 08/02/23 This is a 78-year-old white male with history of multiple medical problems including chronic renal failure/chronic kidney disease on hemodialysis, yesterday the patient was brought into the ER with mostly you days history of weakness and falling easily. Patient was admitted for further evaluation of his weakness, and he was seen only by nephrology for his chronic kidney disease and he was initiated on hemodialysis which is mostly given Wednesdays and Fridays. Patient is also known to have history of chronic diastolic congestive heart failure with moderate to severe tricuspid regurgitation and pulmonary hypertension. In addition to this the patient has obstructive sleep apnea, and he is maintained on AVAPS at home. Patient was on the medical floor, and around 12:30 AM last night, patient had a sudden cardiac arrest. And TRISHA RAYO was called. Patient received 3 A of epinephrine and 1 amp of bicarb, his down time was felt to be about 14 minutes of CPR. In the meantime the patient was intubated, and placed on mechanical ventilation. Overnight the patient remains on mechanical ventilation, and I saw this morning. He is now on assist control rate of 2010 volume 500 FiO2 was 60% and PEEP of 8. ABG showed a pO2 of 112 pCO2 35 pH of 7.48. Patient is unresponsive to any stimuli except he seems to withdraw to painful stimuli only. And he is on norepinephrine at 0.06 mg/kg/m propofol 25 mg/kg/m she is also on IV fluid at 1 50 mL per hour I cut it down to [address] of the brain is pending, neurologic consultation is pending, chest x-ray showed mostly mild interstitial edema. Patient may or may not get dialysis today, this will be decided upon by nephrology on the case. After evaluating the patient, I recommended central venous access, and an arterial line was placed and the patient. Labs today WBC count is 10.2 hemoglobin 10.0, basic metabolic profile is normal except for potassium of 5.9 BUN is 29 creatinine 3.4, troponin is 0.063, cardiac consultation was initiated today, neurological consultation was also initiated, and I'm recommending that we send the patient down for CT of the brain without contrast today. Education is at present include amiodarone 200 mg daily eliquis 12 mg twice a day Lipitor, ceftriaxone, Aranesp, Dilaudid, Florinef, sliding scale insulin, midodrine, and DuoNeb updrafts 4 times a day and when necessary patient is also on Protonix, he was also placed on lokelma by nephrology for his hyperkalemia. Reevaluated 07/29/23, patient remains in the ICU, intubated and mechanically ventilated. On assist control rate of 20-2500 FiO2 50% PEEP of 8, ABG showed a pO2 of 84 pCO2 35 pH of 7.46. His FiO2 was increased earlier by respiratory to 60%, however I recommended PEEP up to 10 and cutting down the FiO2 down to 55% otherwise the remaining vent settings remained the same. Patient remains on norepinephrine at 0.08 mcg/kg/m propofol at 25 mg/kg/m vital a PE at 30 mL/m and 0.9 at 50 mL per hour. Patient remains unresponsive, he only withdraws to painful stimuli, CT of the brain yesterday was unremarkable. EEG is pending his left brachial arterial line was lost yesterday, went ahead and placed another arterial line today and the right radial artery. Patient remains on ceftriaxone and eliquis. Today my recommendation is to have sedation interruption and assess mental status again, patient was seen by neurology and recommending EEG. Patient underwent hemodialysis yesterday, no fluid was removed, WBC count today is 9 hemoglobin 10.1 and platelets are 1 85,000. Basic metabolic profile is normal bicarb is 21 BUN is 27 creatinine 2.88. Patient remains on medications as listed including allopurinol, amiodarone, eliquis, atorvastatin, ceftriaxone, propofol, Aranesp, Colace, ferrous sulfate, Florinef, and Dilaudid. Patient is also on Protonix, Zofran as needed, and morphine sulfate as needed as well as m idodrine and insulin as per scheduled Progress note dated 07/30/2023. The patient was admitted to the emergency department on July 27, and was intubated on July 28. The patient has history of multiple medical problems including chronic renal failure, and chronic kidney disease, on hemodialysis, and apparently had been very weak at home, and falling. The patient remains on the mechanical ventilator. Ventilator settings include the volume assist control, rate 20, tidal volume 500, FiO2 55%, but 10. Blood gases show pO2 of 80, pCO2 33, and a pH is 7. or 5. The patient continues on propofol at 10 mics per kilogram per minute. Although recently has been turned off by the nurse, saline at 50 mL an hour, norepinephrine at 12 mcg/m, and vital high protein at 40 mL an hour, with a goal of 48. We will attempt a spontaneous breathing trial on this patient, with pressure support of 10, CPAP of 5. I'm not hopeful that the patient is ready for weaning given the fact that he still on norepinephrine at 12 mcg/m, insulin requiring FiO2 55%, with a PEEP of 10. PO2 was only 80. White count 9.1, hemoglobin 10.1, hematocrit 33.3, and platelet count 179,000. Sodium 132, potassium 4.9, chlorides 99, CO2 18, anion gap 15, BUN 38, creatinine 3.54. Chest x-ray shows a well-placed endotracheal tube, and a hemodialysis catheter. There is cardiomegaly, and small bilateral pleural effusions. The patient is seen today 07/31/2023 and follow-up in the intensive care unit. He remains intubated on the mechanical ventilator currently an assist-control mode at a rate of 20, tidal volume 500, FiO2 55% and a PEEP of 10. Morning blood gases revealed a PaO2 of 83, pCO2 36 and a pH of 7.47. He remains on normal saline 50 ML's per hour. Norepinephrine at 12 mcg/m. Being nourished with vital HP 55 ML's per hour which is goal. He has been off sedation for over 24 hours now. His only response is to withdraw from painful stimuli. X-ray shows similar bibasilar opacities suggestive of small effusions with atelectasis/airspace disease. Stable compared to previous. Sputum shows no wilson wth. White count 9.4. Hemoglobin 9.7. Platelets 177. Sodium 135. Potassium 4.2. Bicarb 22. BUN 33. Creatinine 2.86. Glucose 196. He remains on ceftriaxone. Anticoagulated with Eliquis. He did tolerate pressure support of 10 and the CPAP of 5 for 12 hours yesterday. He will be continued on hemodialysis on Sunday via permacath. Echocardiogram did reveal moderate to severe left ventricular systolic dysfunction with ejection fraction of 35%. The patient is seen today 08/01/2023 and follow-up in the intensive care unit. He remains intubated on mechanical ventilator in assist control mode at a rate of 20, tidal volume 500, FiO2 55% and a PEEP of 10. Morning blood gases revealed a pO2 of 76, pCO2 of 36 and a pH of 7.43. The plan is for pressure support and CPAP trials today. He is been off sedation for greater than 48 hours. He has not had any purposeful responses. He has some involuntary movement and possible brainstem function otherwise does not follow any simple commands. He is in a paced rhythm. Microbiology has been negative thus far. His pro calcitonin was 0.85. He remains on ceftriaxone. He has normal saline at 50 MLS per hour. Currently on norepinephrine at 0.08 mcg/kg/m which is 10 mcg/m. He is being nourished with vital HP at 55 ML's per hour which is goal. He is continued on DuoNeb inhalations. Anticoagulated with Eliquis. Chest x- ray reveals similar mild to moderate cardiomegaly and ongoing small pleural effusions with adjacent atelectasis. White count 9.5. Hemoglobin 9.8. Platelets 211. Sodium 134. Potassium 4.1. Bicarb 22. BUN 44. Creatinine 3.40. Glucose 201. The patient is seen today 08/02/2019 for follow-up in the intensive care unit. He remains intubated on the mechanical ventilator currently an assist-control mode at a rate of 20, tidal volume 500, FiO2 55% and a PEEP of 10. Morning blood gases reveal a P O2 of 71, pCO2 46 and a pH of 7.46. He remains off sedation for nearly 72 hours now. Minimally responsive per withdraw to painful stimuli. Some nonpurposeful movements. Not following any commands. He is requiring norepinephrine at 0.04 mcg/kg/m. He has normal saline at 20 miles per hour. He is being nourished with vital HP at 77 mL an hour which is goal. Follow-up computed tomography scan of the brain is pending. Chest x-ray revealed moderate cardiomegaly with possible pulmonary vascular congestion. Similar findings. Sputum culture revealed no growth. White count 9.5. Hem oglobin 9.5. Platelets 182. Sodium 131 potassium 4.1. Bicarb 24. BUN 38. Creatinine 2.62. Glucose 212. The patient remains on DuoNeb inhalations. Antibiotics in the form of ceftriaxone. Anticoagulated with Eliquis. Objective - Vital Signs Vital signs: Vital Signs Temp 97.8 F 08/02/23 12:00 Pulse 81 08/02/23 12:00 Resp 25 H 08/02/23 12:00 BP 95/58 08/02/23 01:15 Pulse Ox 95 08/02/23 12:00 FiO2 55 08/02/23 12:00 Intake & Output 08/01/23 08/02/23 08/02/23 18:59 06:59 18:59 Intake Total 2413.235 1188.329 811.393 Output Total 1900 0 Balance 411.615 8470.329 811.393 Weight 132.7 kg 133.6 kg Intake: IV 446 253 138 Pressure Bag (0.9 Sodium 36 33 18 Chloride) Sodium Chloride 0.9% 1, 150 000 ml @ 50 mls/hr IV . Q20H SERGE[facility] Rx#:[id number] cefTRIAXone 1 gm In 260 220 120 Sodium Chloride 0.9% 50 ml @ 100 mls/hr IVPB Q24HR SERGEY Rx#:[id number] Intake, IV Titration 560.235 88.329 211.393 Amount Norepinephrine 4 mg In 412.917 88.329 211.393 Sodium Chloride 0.9% 250 ml @ 0.03 MCG/KG/MIN 13. 361 mls/hr IV .Q19H1M SERGE[facility] Rx#:[id number] Norepinephrine 8 mg In 147.318 Sodium Chloride 0.9% 250 ml @ 0.11 MCG/KG/MIN 27. 947 mls/hr IV .Q9H14M SERGEY Rx#:[id number] Oral 165 Tube Feeding 752 847 462 Hemodialysis 400 Other 90 Output: Urine 0 0 Hemodialysis 1900 Other: # Voids 1 0 0 ABP, PAP, CO, CI - Last Documented Arterial Blood Pressure 110/54 - Exam GENERAL EXAM: Intubated, unresponsive off sedation 72 hours, 78-year-old male patient, requiring 55% FiO2 with a PEEP of 10, in no apparent distress. HEAD: Normocephalic. EYES: Normal reaction of pupils, equal size. NOSE: Clear with pink turbinates. THROAT: No erythema or exudates. NECK: No masses, no JVD. CHEST: No chest wall deformity. LUNGS: Equal air entry with no crackles, wheeze, rhonchi or dullness. CVS: S1 and S2 normal with no audible murmur, regular rhythm. ABDOMEN: No hepatosplenomegaly, normal bowel sounds, no guarding or rigidity. SPINE: No scoliosis or deformity SKIN: No rashes CENTRAL NERVOUS SYSTEM: Withdraws to pain on full stimuli, otherwise unresponsive, tone is normal in all 4 extremities. EXTREMITIES: There is 1+ peripheral edema. No clubbing, no cyanosis. Peripheral pulses are intact. - Labs CBC & Chem 7: 08/02/23 05:00 08/02/23 05:00 Labs: Abnormal Lab Results - Last 24 Hours (Table) 08/01/23 08/01/23 08/02/23 Range/Units 18:08 23:56 05:00 RBC 2.96 L (4.30-5.90) m/uL Hgb 9.5 L (13.0-17.5) gm/dL Hct 30.8 L (39.0-53.0) % MCV 104.1 H (80.0-100.0) fL MCHC 30.8 L (31.0-37.0) g/dL RDW 19.6 H (11.5-15.5) % Macrocytosis Marked A ABG pH (7.35-7.45) ABG pO2 (83-108) mmHg ABG HCO3 (21-25) mmol/L ABG Total CO2 (19-24) mmol/L Sodium (137-145) mmol/L Chloride (98-107) mmol/L BUN (9-20) mg/dL Creatinine (0.66-1.25) mg/dL Glucose (74-99) mg/dL POC Glucose (mg/dL) 147 H 213 H (70-110) mg/dL Calcium (8.4-10.2) mg/dL 08/02/23 08/02/23 08/02/23 Range/Units 05:00 05:47 06:17 RBC (4.30-5.90) m/uL Hgb (13.0-17.5) gm/dL Hct (39.0-53.0) % MCV (80.0-100.0) fL MCHC (31.0-37.0) g/dL RDW (11.5-15.5) % Macrocytosis ABG pH 7.46 H (7.35-7.45) ABG pO2 71 L (83-108) mmHg ABG HCO3 26 H (21-25) mmol/L ABG Total CO2 27 H (19-24) mmol/L Sodium 131 L (137-145) mmol/L Chloride 97 L (98-107) mmol/L BUN 38 H (9-20) mg/dL Creatinine 2.62 H (0.66-1.25) mg/dL Glucose 212 H (74-99) mg/dL POC Glucose (mg/dL) 217 H (70-110) mg/dL Calcium 8.2 L (8.4-10.2) mg/dL 08/02/23 Range/Units 11:38 RBC (4.30-5.90) m/uL Hgb (13.0-17.5) gm/dL Hct (39.0-53.0) % MCV (80.0-100.0) fL MCHC (31.0-37.0) g/dL RDW (11.5-15.5) % Macrocytosis ABG pH (7.35-7.45) ABG pO2 (83-108) mmHg ABG HCO3 (21-25) mmol/L ABG Total CO2 (19-24) mmol/L Sodium (137-145) mmol/L Chloride (98-107) mmol/L BUN (9-20) mg/dL Creatinine (0.66-1.25) mg/dL Glucose (74-99) mg/dL POC Glucose (mg/dL) 225 H (70-110) mg/dL Calcium (8.4-10.2) mg/dL Assessment and Plan Assessment: Status post cardiac arrest, with CPR and return of spontaneous circulation, with at least 14 minutes of downtime. Patient had PEA Rule out anoxic brain injury. Remains unresponsive despite 48 hours without sedation Status post intubation and mechanical ventilation, 07/28/2023 Chronic diastolic CHF Severe pulmonary hypertension Acute metabolic acidosis, secondary to chronic kidney disease Possible orthostatic hypotension, with history of recurrent falls Hyperkalemia, secondary to chronic kidney disease Anemia of chronic disease History of sleep apnea syndrome History of sepsis and septic shock Chronic atrial fibrillation Type 2 diabetes with diabetic nephropathy History of sick sinus syndrome, status post pacemaker implantation Plan: The patient was seen and evaluated Chest x-ray, labs, ABGs and medications reviewed The patient remains unresponsive off sedation for greater than 72 hours The family is planning to go to comfort care tomorrow We'll continue the current treatment plan for now We'll continue to follow I have personally seen and examined the patient, performed the documentation and the assessment and plan as written. Number of minutes spent on the visit: 15.
--- NOTE | 2023-08-02 15:45 | CT ---
EXAMINATION TYPE: CT brain wo con CT DLP: 1242.4 mGycm, Automated exposure control for dose reduction was used. DATE OF EXAM: 08/02/2023 10:47 AM COMPARISON: 07/28/2023. CLINICAL INDICATION:Male, 78 years old with history of Follow up cardiac arrest, Follow up cardiac ar rest TECHNIQUE: Brain: Axial CT images of the brain were obtained with coronal and sagittal reformats created and rev iewed. Contrast used: None. Oral contrast used: None. FINDINGS: Extra-axial spaces: No abnormal extra-axial fluid collections. Ventricular system: Ventricles appear dilated in proportion to the degree of cerebral atrophy. Cerebral parenchyma: No increased attenuation to suggest acute intraparenchymal hemorrhage. The gra y-white matter interface appears maintained. Mild/moderate generalized brain atrophy. White matter unremarkable by CT. No clear signs of diffuse anoxic brain injury. Cerebellum: No acute abnormality. Mass effect: No evidence of mass effect or midline shift. Intracranial vasculature: Calcifications of the intracranial right vertebral artery and the carotid s iphons again seen. Soft tissues: No acute abnormality. Visualized orbits: Orbital contents appear grossly intact. Calvarium/osseous structures: No evidence of calvarial fracture. Paranasal sinuses and mastoid air cells: Clear Other: Partially visualized endotracheal and oroenteric tubes. MRI is more sensitive for detecting acute processes such as infarct, and may be considered if clinica lly warranted. IMPRESSION: No acute intracranial CT abnormality. Mild to moderate atrophy.
[2023-08-02] MEDS: HYDROmorphone 1 MG/ML 1 ML SYRINGE IVP PRN ×2 (16:04→19:51)
[2023-08-02 17:52] LABS: Glucose,Whole Blood 199 mg/dL (70-110)
[2023-08-02] MEDS: ATORVASTATIN 10 MG TAB PO SCH (19:51)
--- NOTE | 2023-08-02 21:08 | P.PN ---
Subjective Progress Note Date: 08/02/23 Patient remains in the intensive care unit currently intubated after cardiac arrest and found to be in PEA. He is on IV ceftriaxone for suspected UTI. Chest xray today showing moderate cardiomegaly and possible pulmonary vascular congestion. Small effusions with adjacent atelectasis and or consolidation left greater than right are also similar. Additionally patient continues on blood pressure support with levophed. Has been off sedation and not responsive. Neurology following with suspicion of anoxic brain injury and underwent brain CT today showing no acute intracranial CT abnormality. Mild to moderate atrophy. Family has decided against tracheostomy tube and PEG tube placement and patient remains a do not resuscitate/do no intubate with family considering end of life care on Sunday if no improvement. His white blood cell count is 9.5 today, hgb 9.5, sodium 131, BUN 38, creatinine 2.62. REVIEW OF SYSTEMS: Unable to complete patient is currently intubated and lethargic. Physical Examination -GENERAL: Intubated lethargic, Well developed, well nourished. Generally weak HEENT: Pupils are round and equally reacting to light. EOMI. No scleral icterus. No conjunctival pallor. Normocephalic, atraumatic. No pharyngeal erythema. No thyromegaly. CARDIOVASCULAR: S1 and S2 present. No murmurs, rubs, or gallops. PULMONARY: Chest is clear to auscultation, no wheezing , no crackles. ABDOMEN: Soft, nontender, nondistended, normoactive bowel sounds. No palpable organomegaly. MUSCULOSKELETAL: No joint swelling or deformity. -EXTREMITIES: No cyanosis, clubbing,. Bilateral pitting leg edema. NEUROLOGICAL: Gross neurological examination did not reveal any focal deficits. Diffuse weakness SKIN: No rashes. no petechiae. Assessment and Plan Assessment Status post cardiac arrest, with CPR and return of spontaneous circulation, with a 14 minute downtime. Patient had PEA Status post intubation and mechanical ventilation, 07/28/2023 remains intubated Anoxic encephalopathy Chronic diastolic CHF and severe pulmonary hypertension ESRD on hemodialysis Acute metabolic acidosis, secondary to chronic kidney disease Possible orthostatic hypotension, with history of recurrent falls Hyperkalemia, secondary to chronic kidney disease Anemia of chronic disease History of sepsis and septic shock Chronic atrial fibrillation Type 2 diabetes with diabetic nephropathy Hx sleep apnea History of sick sinus syndrome, with permanent pacemaker Do Not Resuscitate/Do Not Intubate Plan Continue on vasopressor support and midodrine Patient remains off sedation and neurology following for the suspected anoxic brain injury. Had repeat brain CT today. If there is no improvement family considering comfort care in the AM. Continue with IV ceftriaxone and follow cultures Remains on mechanical ventilator per worm farmer Continue accuchecks achs and sliding scale insulin. Continue enteral nutrition Repeat labs in AM Prognosis poor The impression and plan of care has been dictated by Elodia Aldrich, Nurse Practitioner as directed. Dr. Galdino MD I have performed a history and physical examination and medical decision making of this patient, discussed the same with the dictator, and agree with the dictators assessment and plan as written, documented as a scribe. Based on total visit time, I have performed more than 50% of this visit. Objective - Vital Signs Vital signs: Vital Signs Temp 98 F 08/02/23 20:00 Pulse 63 08/02/23 20:15 Resp 20 08/02/23 20:15 BP 95/58 08/02/23 01:15 Pulse Ox 97 08/02/23 20:15 FiO2 55 08/02/23 20:00 Intake & Output 08/02/23 08/02/23 08/03/23 06:59 18:59 06:59 Intake Total 7104.216 1605.644 230 Output Total 1 1 Balance 6276.526 3050.644 229 Weight 133.6 kg Intake: IV 253 273 46 Pressure Bag (0.9 Sodium 33 33 6 Chloride) Sodium Chloride 0.9% 1, 100 40 000 ml @ 50 mls/hr IV . Q20H [facility] Rx#:[id number] cefTRIAXone 1 gm In 220 140 Sodium Chloride 0.9% 50 ml @ 100 mls/hr IVPB Q24HR [facility] Rx#:[id number] Intake, IV Titration 88.329 316.644 Amount Norepinephrine 4 mg In 88.329 316.644 Sodium Chloride 0.9% 250 ml @ 0.03 MCG/KG/MIN 13. 361 mls/hr IV .Q19H1M [facility] Rx#:[id number] Tube Feeding 847 847 154 Other 30 Output: Urine 1 1 Other: # Voids 0 0 ABP, PAP, CO, CI - Last Documented Arterial Blood Pressure 96/52 - Labs CBC & Chem 7: 08/02/23 05:00 08/02/23 05:00 Labs: Abnormal Lab Results - Last 24 Hours (Table) 08/01/23 08/02/23 08/02/23 Range/Units 23:56 05:00 05:00 RBC 2.96 L (4.30-5.90) m/uL Hgb 9.5 L (13.0-17.5) gm/dL Hct 30.8 L (39.0-53.0) % MCV 104.1 H (80.0-100.0) fL MCHC 30.8 L (31.0-37.0) g/dL RDW 19.6 H (11.5-15.5) % Macrocytosis Marked A ABG pH (7.35-7.45) ABG pO2 (83-108) mmHg ABG HCO3 (21-25) mmol/L ABG Total CO2 (19-24) mmol/L Sodium 131 L (137-145) mmol/L Chloride 97 L (98-107) mmol/L BUN 38 H (9-20) mg/dL Creatinine 2.62 H (0.66-1.25) mg/dL Glucose 212 H (74-99) mg/dL POC Glucose (mg/dL) 213 H (70-110) mg/dL Calcium 8.2 L (8.4-10.2) mg/dL 08/02/23 08/02/23 08/02/23 Range/Units 05:47 06:17 11:38 RBC (4.30-5.90) m/uL Hgb (13.0-17.5) gm/dL Hct (39.0-53.0) % MCV (80.0-100.0) fL MCHC (31.0-37.0) g/dL RDW (11.5-15.5) % Macrocytosis ABG pH 7.46 H (7.35-7.45) ABG pO2 71 L (83-108) mmHg ABG HCO3 26 H (21-25) mmol/L ABG Total CO2 27 H (19-24) mmol/L Sodium (137-145) mmol/L Chloride (98-107) mmol/L BUN (9-20) mg/dL Creatinine (0.66-1.25) mg/dL Glucose (74-99) mg/dL POC Glucose (mg/dL) 217 H 225 H (70-110) mg/dL Calcium (8.4-10.2) mg/dL 08/02/23 Range/Units 17:51 RBC (4.30-5.90) m/uL Hgb (13.0-17.5) gm/dL Hct (39.0-53.0) % MCV (80.0-100.0) fL MCHC (31.0-37.0) g/dL RDW (11.5-15.5) % Macrocytosis ABG pH (7.35-7.45) ABG pO2 (83-108) mmHg ABG HCO3 (21-25) mmol/L ABG Total CO2 (19-24) mmol/L Sodium (137-145) mmol/L Chloride (98-107) mmol/L BUN (9-20) mg/dL Creatinine (0.66-1.25) mg/dL Glucose (74-99) mg/dL POC Glucose (mg/dL) 199 H (70-110) mg/dL Calcium (8.4-10.2) mg/dL Assessment and Plan Time with Patient: Less than 30
[2023-08-03] MEDS: IPRATROPIUM-ALBUTEROL 3 ML NEB INHALATION SCH ×3 (00:06→08:24)
[2023-08-03 00:32] LABS: Glucose,Whole Blood 193 mg/dL (70-110)
[2023-08-03] MEDS: INSULIN ASPART (NovoLOG) 100 UNIT/ML VIAL SQ SCH ×2 (00:35→06:30)
[2023-08-03] MEDS: HYDROmorphone 1 MG/ML 1 ML SYRINGE IVP PRN (00:35)
[2023-08-03] MEDS: NOREPINEPHRINE 4 MG in SODIUM CHLORIDE 0.9% 250 ML IV SCH (04:00)
[2023-08-03 04:33] LABS: Anisocytosis Slight; Basophils # (A) 0.1 k/uL (0-0.2); Basophils % (A) 1 %; Eosinophils # (A) 0.1 k/uL (0-0.7); Eosinophils % (A) 1 %; HGB 9.5 gm/dL (13.0-17.5); Hypochromasia Marked; Lymphocytes # (A) 1.1 k/uL (1.0-4.8); Lymphocytes % (A) 11 %; MCH 31.4 pg (25.0-35.0); MCHC 29.8 g/dL (31.0-37.0); MCV 105.1 fL (80.0-100.0); Macrocytosis Marked; Mean Platelet Volume 8.6; Monocytes # (A) 0.6 k/uL (0-1.0); Monocytes % (A) 7 %; Neutrophils # (A) 7.6 k/uL (1.3-7.7); Neutrophils % (A) 77 %; Platelet Count 217 k/uL (150-450); RBC 3.04 m/uL (4.30-5.90); RDW 19.3 % (11.5-15.5); WBC 9.8 k/uL (3.8-10.6)
[2023-08-03 04:42] LABS: African American GFR (CKD) 21 (>60 ml/min/1.73 sqM); Anion Gap 14 mmol/L; Blood Urea Nitrogen 54 mg/dL (9-20); Calcium 8.3 mg/dL (8.4-10.2); Carbon Dioxide 21 mmol/L (22-30); Chloride 97 mmol/L (98-107); Glucose 206 mg/dL (74-99); Non-African American GFR(CKD) 18 (>60 ml/min/1.73 sqM); Potassium 4.5 mmol/L (3.5-5.1); Sodium 132 mmol/L (137-145)
--- NOTE | 2023-08-03 04:59 | P.PN ---
Subjective Progress Note Date: 08/02/23 08/02/2022: Patient was seen for a follow-up. Patient's and patient's grandson were present today. Patient is not showing any meaningful response. He is not making eye contact, or following any directions. Patient's mentions that he has been on hemodialysis for last 2-3 years. He has been very active, use to go for fishing, hunting, but has not been able to do these activities for 10 years. She mentions that he has been struggling lately particularly with hemodialysis. 08/01/2022: Patient was seen for a follow-up. Patient's and patient's daughter were present today. Patient is not showing any significant clinical improvement. He is not following commands. He has a weak gag. Pupils are round and reacting sluggishly. No purposeful movement. No seizure-like activity. Occasional myoclonic type jerks noted. 07/31/2022: Patient was seen for a follow-up. Patient continues to be unresponsive. Patient currently on nor epinephrine 0.11 mcg/kg per minute. Patient not improved. 07/30/2022: Patient was initially seen by Dr. Kirill Marcos. Please refer to his note for details. Patient is a 78-year-old male with in-house cardiopulmonary arrest. Patient does have brainstem reflexes. CT head negative. EKG reveals severe encephalopathy and rare epileptiform discharges over the right central/temporal. Patient was started on Keppra. Patient at present on norepinephrine 0.06 mcg/kg per minute. Also on Rocephin 1 g. Patient has been off propofol since 5:45 AM. He is on CPAP, tolerating well. He withdraws to pain per nurse report. No obvious seizure-like activity. Some of the workup during his hospital visit consisted of: He is having episodes of hypotensive 70-80 over 40-50s and also his pulse ox was as low as 81% liters. Most recent sodium is trended up at 133, potassium is 5.9, glucose is 170s to 200s, AST ALT was within normal limits Plasma lactic acid vein is 2.8 and most recent is 1.3. TSH as a 7.090. Ammonia is 25. CT head is reported as similar mild generalized atrophy. No acute intracranial abnormality seen. I personally reviewed CT head and agree there is no acute or subacute ischemia or bleed. Objective - Vital Signs Vital signs: Vital Signs Temp 97.8 F 08/02/23 12:00 Pulse 69 08/02/23 14:15 Resp 18 08/02/23 14:15 BP 95/58 08/02/23 01:15 Pulse Ox 96 08/02/23 14:15 FiO2 55 08/02/23 12:00 Intake & Output 08/01/23 08/02/23 08/02/23 18:59 06:59 18:59 Intake Total 2413.235 2751.940 2290.393 Output Total 1900 0 Balance 682.608 2237.329 1011.393 Weight 132.7 kg 133.6 kg Intake: IV 446 253 184 Pressure Bag (0.9 Sodium 36 33 24 Chloride) Sodium Chloride 0.9% 1, 150 000 ml @ 50 mls/hr IV . Q20H [facility] Rx#:[id number] cefTRIAXone 1 gm In 260 220 160 Sodium Chloride 0.9% 50 ml @ 100 mls/hr IVPB Q24HR [facility] Rx#:[id number] Intake, IV Titration 560.235 88.329 211.393 Amount Norepinephrine 4 mg In 412.917 88.329 211.393 Sodium Chloride 0.9% 250 ml @ 0.03 MCG/KG/MIN 13. 361 mls/hr IV .Q19H1M [facility] Rx#:[id number] Norepinephrine 8 mg In 147.318 Sodium Chloride 0.9% 250 ml @ 0.11 MCG/KG/MIN 27. 947 mls/hr IV .Q9H14M SER[facility] Rx#:[id number] Oral 165 Tube Feeding 752 847 616 Hemodialysis 400 Other 90 Output: Urine 0 0 Hemodialysis 1900 Other: # Voids 1 0 0 ABP, PAP, CO, CI - Last Documented Arterial Blood Pressure 110/53 - Exam Patient is intubated, currently not on any sedation. Patient still almost comatose, with GCS of 5 (E2, V1, M2). Patient has decerebrate posturing with noxious stimuli in bilateral upper limbs. In the lower limbs, patient slightly flexes his foot to painful stimuli on either sides. Pupils are equal, round and reacting. Gaze is more straightforwards. Oculocephalics absent. No obvious seizure-like activity. Tone is equal bilaterally. Reflexes are absent Patient does not respond to fine touch, however with painful stimuli, patient has decerebrate posturing. Occasionally patient would move the leg, or move the head, but no purposeful movement. No seizure-like activity noted. - Labs CBC & Chem 7: 08/03/23 04:09 08/03/23 04:09 Labs: Abnormal Lab Results - Last 24 Hours (Table) 08/01/23 08/01/23 08/02/23 Range/Units 18:08 23:56 05:00 RBC 2.96 L (4.30-5.90) m/uL Hgb 9.5 L (13.0-17.5) gm/dL Hct 30.8 L (39.0-53.0) % MCV 104.1 H (80.0-100.0) fL MCHC 30.8 L (31.0-37.0) g/dL RDW 19.6 H (11.5-15.5) % Macrocytosis Marked A ABG pH (7.35-7.45) ABG pO2 (83-108) mmHg ABG HCO3 (21-25) mmol/L ABG Total CO2 (19-24) mmol/L Sodium (137-145) mmol/L Chloride (98-107) mmol/L BUN (9-20) mg/dL Creatinine (0.66-1.25) mg/dL Glucose (74-99) mg/dL POC Glucose (mg/dL) 147 H 213 H (70-110) mg/dL Calcium (8.4-10.2) mg/dL 08/02/23 08/02/23 08/02/23 Range/Units 05:00 05:47 06:17 RBC (4.30-5.90) m/uL Hgb (13.0-17.5) gm/dL Hct (39.0-53.0) % MCV (80.0-100.0) fL MCHC (31.0-37.0) g/dL RDW (11.5-15.5) % Macrocytosis ABG pH 7.46 H (7.35-7.45) ABG pO2 71 L (83-108) mmHg ABG HCO3 26 H (21-25) mmol/L ABG Total CO2 27 H (19-24) mmol/L Sodium 131 L (137-145) mmol/L Chloride 97 L (98-107) mmol/L BUN 38 H (9-20) mg/dL Creatinine 2.62 H (0.66-1.25) mg/dL Glucose 212 H (74-99) mg/dL POC Glucose (mg/dL) 217 H (70-110) mg/dL Calcium 8.2 L (8.4-10.2) mg/dL 08/02/23 Range/Units 11:38 RBC (4.30-5.90) m/uL Hgb (13.0-17.5) gm/dL Hct (39.0-53.0) % MCV (80.0-100.0) fL MCHC (31.0-37.0) g/dL RDW (11.5-15.5) % Macrocytosis ABG pH (7.35-7.45) ABG pO2 (83-108) mmHg ABG HCO3 (21-25) mmol/L ABG Total CO2 (19-24) mmol/L Sodium (137-145) mmol/L Chloride (98-107) mmol/L BUN (9-20) mg/dL Creatinine (0.66-1.25) mg/dL Glucose (74-99) mg/dL POC Glucose (mg/dL) 225 H (70-110) mg/dL Calcium (8.4-10.2) mg/dL Assessment and Plan Assessment: This is a 78 y/o gentleman with multiple medical problems who presents to ED on 07/27/2023 because of generalized weakness and a fall. He had difficulty getting out of chair to bathroom. In our facility at 12:30am on 07/28/2023 he had cardiopulmonary arrest, with downtime lasting 14 minutes. Acute cardiopulmonary arrest lasting 14 minutes. He was in PEA per nursing staff. 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 Patient is off sedation. Patient continues to be severely obtunded with GCS of 5. On examination has brainstem reflexes (breathing over the vent, sluggishly open eyes and has weak gag/cough). Patient not showing any cortical functions at this time. Repeat CT head is negative for acute/subacute changes or significant cerebral edema. Also component of encephalopathy due to metabolic and hypoxic encephalopathy. Hypotensive on epinephrine Diabetes mellitus that is on going History of Cardiomyopathy Sleep apnea History of atrial fibrillation on eliquis Chronic renal failure on hemodialysis Plan: Patient so far not showing significant clinical improvement. Patient's GCS is 5. Patient is off sedation for over 72 hours. Repeat EEG performed today was abnormal due to background slowing of severe degree, suggestive of generalized cerebral dysfunction as can be seen with toxic metabolic encephalopathy or related to diffuse structural brain abnormality, like in this case with anoxic encephalopathy. After activation with nailbed pressure, intermittent high amplitude monophasic or biphasic bifrontal waves were seen, which did not appear clearly epileptiform. However may indicate underlying cortical irritability. No electrographic seizure was recorded. Follow-up EEG recommended, if clinically indicated. Initial EEG reviewed by Dr. Marcos revealed background slowing, suggestive of severe encephalopathy. Rare epileptiform discharges over the right central temporal region increases the risk for seizure. Otherwise no electrographic seizure was recorded. Clinical correlation recommended. Dr. Marcos started patient on Keppra. Repeat CT head performed today revealed no acute intracranial process. Mild to moderate atrophy. I personally reviewed CT head, agree with the findings. Patient has persistent hypotension, on Levophed. Management as per primary/ICU team. We'll defer the rest of the medical management to primary and other specialist Based upon lack of clinical improvement (5 days post arrest), and current EEG findings suggests poor prognosis. Discussed with patient's and daughter in detail. Patient's is planning to wait for another 24 hours and is trying to get her family members together. They are considering terminal weaning and hospice from Sunday.
[2023-08-03 06:23] LABS: ABG Base Excess -1.5 mmol/L; ABG HCO3 23 mmol/L (21-25); ABG Oxygen Saturation 96.6 % (94-97); ABG PCO2 34 mmHg (35-45); ABG PH 7.43 (7.35-7.45); ABG PO2 87 mmHg (83-108); ABG TCO2 24 mmol/L (19-24); Allen Test Performed? Yes
[2023-08-03] MEDS: MIDODRINE 5 MG TAB PO SCH (06:30)
[2023-08-03 06:31] LABS: Glucose,Whole Blood 233 mg/dL (70-110)
--- NOTE | 2023-08-03 07:40 | P.PN ---
Subjective Progress Note Date: 08/03/23 Principal diagnosis: Cardiac arrest The patient is a 78-year-old gentleman with history of cardiomyopathy with the last echo showed an EF around 35% and also permanent atrial fibrillation and also permanent pacemaker and morbid obesity and sleep apnea and COPD on multiple comorbid conditions. He was admitted to the hospital with generalized weakness and had a cardiac arrest on the floor was pulseless electrical activity required CPR for some time. Subsequently he was intubated and he was brought to the intensive care unit. Beside that the patient currently is in renal failure 07/30/2023 The patient was seen and evaluated this morning. He is currently unstable and requiring vasopressors. He is in nature fibrillation with overall controlled heart rate on the current medical regimen. He is on oral anticoagulation as well. He is of any sedation at this point from the morning. We'll see the patient would be able to wake up and there is no evidence of any anoxic encephalopathy. This too early. At this point. No echo was ordered since the patient had cardiac arrest we'll obtain an echocardiogram. The examination is remarkable for patient intubated on mechanical ventilation who is morbidly obese with stable vital signs of course knowing that he is on vasopressors at this point. The chest examination is remarkable for diminished breathing sounds bilaterally in the cardiovascular examination is remarkable for regular rhythm with distant heart sounds and the extremities has mild bilateral lower extremity edema. 07/31/2023 The patient was evaluated this morning. He continues to be intubated on mechanical ventilation. He continues to be hemodynamically unstable and requiring vasopressors. Beside that he is not waking up in spite of not receiving any sedation at this point. She continues to be on oral anticoagulation with liquids. The echo revealed impaired LV function was EF around 35% with septal hypokinesia. His first troponin was borderline elevated going to obtain 2 more sets of troponin. Anyway were not made to pursue any invasive workup on him at this point to we know what is neurology checks status and neurology is on the case. We'll follow-up with the creatinine. The examination is remarkable for the patient's being intubated on mechanical ventilation with upper extremities and lower extremities edema and distant heart sounds with regular rate and rhythm and initially breathing sounds bilaterally August [id number] The patient was seen and evaluated this morning. Unfortunately still lethargic and only responding to severe/painful stimulation. Neurology is on the case and there is a concern about anoxic encephalopathy. From the cardiac standpoint overview, he is stable. He is not on any vasopressors or inotropic. He continues to be in sinus mechanism with first-degree AV block. The examination is remarkable for lethargy with a stable vital signs and diminished breathing sounds bilaterally and distant heart sounds 08/02/2023 The patient was seen this morning. Unfortunately he is not waking up. There is a concern about anoxic encephalopathy. Otherwise he has been normal sinus mechanism. The pressure continues to be on vasopressors. From the cardiac vascular standpoint of view would continue the current medical regimen including oral anticoagulation and continue following up with the patient. The examination is remarkable for the patient being intubated on mechanical ventilation with stable vital signs on the current dose of vasopressors and bilateral expiratory wheezing and bilateral lower extremity edema and regular rate and rhythm 08/03/2023 The patient was seen and evaluated this morning. Unfortunately he is not waking up. He continues to be unstable and requiring vasopressors. Family is discussing possible Comfort Care later on today. Urine output continues to be low. Overall the prognosis is extremely poor. The examination is remarkable for regular rhythm with distant heart sounds and diminished breathing sounds bilaterally and bilateral lower extremity edema Assessment Cardiac arrest was pulseless electrical activity Chronic atrial fibrillation with controlled heart rate Cardiomyopathy Renal failure Possible anoxic encephalopathy Permanent pacemaker Multiple comorbid conditions Plan Continue the current medical regimen Follow-up with the neurology evaluation Further recommendation to follow Possible Comfort Care Objective - Vital Signs Vital signs: Vital Signs Temp 98.5 F 08/03/23 04:00 Pulse 67 08/03/23 07:00 Resp 19 08/03/23 07:00 BP 95/58 08/02/23 01:15 Pulse Ox 96 08/03/23 07:00 FiO2 55 08/03/23 04:00 Intake & Output 08/02/23 08/03/23 08/03/23 18:59 06:59 18:59 Intake Total 3803.238 3015.473 80 Output Total 1 2 0 Balance 9226.590 1990.473 80 Weight 135.9 kg Intake: IV 273 116 3 Pressure Bag (0.9 Sodium 33 36 3 Chloride) Sodium Chloride 0.9% 1, 100 80 000 ml @ 50 mls/hr IV . Q20H [facility] Rx#:[id number] cefTRIAXone 1 gm In 140 Sodium Chloride 0.9% 50 ml @ 100 mls/hr IVPB Q24HR [facility] Rx#:[id number] Intake, IV Titration 316.644 340.473 Amount Norepinephrine 4 mg In 316.644 340.473 Sodium Chloride 0.9% 250 ml @ 0.03 MCG/KG/MIN 13. 361 mls/hr IV .Q19H1M [facility] Rx#:[id number] Tube Feeding 847 924 77 Other 90 Output: Urine 1 2 0 Other: # Voids 0 ABP, PAP, CO, CI - Last Documented Arterial Blood Pressure 111/53 - Labs CBC & Chem 7: 08/03/23 04:09 08/03/23 04:09 Labs: Abnormal Lab Results - Last 24 Hours (Table) 08/02/23 08/02/23 08/03/23 Range/Units 11:38 17:51 00:30 RBC (4.30-5.90) m/uL Hgb (13.0-17.5) gm/dL Hct (39.0-53.0) % MCV (80.0-100.0) fL MCHC (31.0-37.0) g/dL RDW (11.5-15.5) % Macrocytosis ABG pCO2 (35-45) mmHg Sodium (137-145) mmol/L Chloride (98-107) mmol/L Carbon Dioxide (22-30) mmol/L BUN (9-20) mg/dL Creatinine (0.66-1.25) mg/dL Glucose (74-99) mg/dL POC Glucose (mg/dL) 225 H 199 H 193 H (70-110) mg/dL Calcium (8.4-10.2) mg/dL 08/03/23 08/03/23 08/03/23 Range/Units 04:09 04:09 06:19 RBC 3.04 L (4.30-5.90) m/uL Hgb 9.5 L (13.0-17.5) gm/dL Hct 32.0 L (39.0-53.0) % MCV 105.1 H (80.0-100.0) fL MCHC 29.8 L (31.0-37.0) g/dL RDW 19.3 H (11.5-15.5) % Macrocytosis Marked A ABG pCO2 34 L (35-45) mmHg Sodium 132 L (137-145) mmol/L Chloride 97 L (98-107) mmol/L Carbon Dioxide 21 L (22-30) mmol/L BUN 54 H (9-20) mg/dL Creatinine 3.15 H (0.66-1.25) mg/dL Glucose 206 H (74-99) mg/dL POC Glucose (mg/dL) (70-110) mg/dL Calcium 8.3 L (8.4-10.2) mg/dL 08/03/23 Range/Units 06:29 RBC (4.30-5.90) m/uL Hgb (13.0-17.5) gm/dL Hct (39.0-53.0) % MCV (80.0-100.0) fL MCHC (31.0-37.0) g/dL RDW (11.5-15.5) % Macrocytosis ABG pCO2 (35-45) mmHg Sodium (137-145) mmol/L Chloride (98-107) mmol/L Carbon Dioxide (22-30) mmol/L BUN (9-20) mg/dL Creatinine (0.66-1.25) mg/dL Glucose (74-99) mg/dL POC Glucose (mg/dL) 233 H (70-110) mg/dL Calcium (8.4-10.2) mg/dL
[2023-08-03] MEDS ORDERED: levETIRAcetam IV 500 MG/5 ML VIAL IVP SCH (09:00)
--- NOTE | 2023-08-03 10:43 | P.PN ---
Subjective Progress Note Date: 08/03/23 This is a 78-year-old white male with history of multiple medical problems including chronic renal failure/chronic kidney disease on hemodialysis, yesterday the patient was brought into the ER with mostly you days history of weakness and falling easily. Patient was admitted for further evaluation of his weakness, and he was seen only by nephrology for his chronic kidney disease and he was initiated on hemodialysis which is mostly given Wednesdays and Fridays. Patient is also known to have history of chronic diastolic congestive heart failure with moderate to severe tricuspid regurgitation and pulmonary hypertension. In addition to this the patient has obstructive sleep apnea, and he is maintained on AVAPS at home. Patient was on the medical floor, and around 12:30 AM last night, patient had a sudden cardiac arrest. And TRISHA RAYO was called. Patient received 3 A of epinephrine and 1 amp of bicarb, his down time was felt to be about 14 minutes of CPR. In the meantime the patient was intubated, and placed on mechanical ventilation. Overnight the patient remains on mechanical ventilation, and I saw this morning. He is now on assist control rate of 2010 volume 500 FiO2 was 60% and PEEP of 8. ABG showed a pO2 of 112 pCO2 35 pH of 7.48. Patient is unresponsive to any stimuli except he seems to withdraw to painful stimuli only. And he is on norepinephrine at 0.06 mg/kg/m propofol 25 mg/kg/m she is also on IV fluid at 1 50 mL per hour I cut it down to [address] of the brain is pending, neurologic consultation is pending, chest x-ray showed mostly mild interstitial edema. Patient may or may not get dialysis today, this will be decided upon by nephrology on the case. After evaluating the patient, I recommended central venous access, and an arterial line was placed and the patient. Labs today WBC count is 10.2 hemoglobin 10.0, basic metabolic profile is normal except for potassium of 5.9 BUN is 29 creatinine 3.4, troponin is 0.063, cardiac consultation was initiated today, neurological consultation was also initiated, and I'm recommending that we send the patient down for CT of the brain without contrast today. Education is at present include amiodarone 200 mg daily eliquis 12 mg twice a day Lipitor, ceftriaxone, Aranesp, Dilaudid, Florinef, sliding scale insulin, midodrine, and DuoNeb updrafts 4 times a day and when necessary patient is also on Protonix, he was also placed on lokelma by nephrology for his hyperkalemia. Reevaluated 07/29/23, patient remains in the ICU, intubated and mechanically ventilated. On assist control rate of 20-2500 FiO2 50% PEEP of 8, ABG showed a pO2 of 84 pCO2 35 pH of 7.46. His FiO2 was increased earlier by respiratory to 60%, however I recommended PEEP up to 10 and cutting down the FiO2 down to 55% otherwise the remaining vent settings remained the same. Patient remains on norepinephrine at 0.08 mcg/kg/m propofol at 25 mg/kg/m vital a PE at 30 mL/m and 0.9 at 50 mL per hour. Patient remains unresponsive, he only withdraws to painful stimuli, CT of the brain yesterday was unremarkable. EEG is pending his left brachial arterial line was lost yesterday, went ahead and placed another arterial line today and the right radial artery. Patient remains on ceftriaxone and eliquis. Today my recommendation is to have sedation interruption and assess mental status again, patient was seen by neurology and recommending EEG. Patient underwent hemodialysis yesterday, no fluid was removed, WBC count today is 9 hemoglobin 10.1 and platelets are 1 85,000. Basic metabolic profile is normal bicarb is 21 BUN is 27 creatinine 2.88. Patient remains on medications as listed including allopurinol, amiodarone, eliquis, atorvastatin, ceftriaxone, propofol, Aranesp, Colace, ferrous sulfate, Florinef, and Dilaudid. Patient is also on Protonix, Zofran as needed, and morphine sulfate as needed as well as m idodrine and insulin as per scheduled Progress note dated 07/30/2023. The patient was admitted to the emergency department on July 27, and was intubated on July 28. The patient has history of multiple medical problems including chronic renal failure, and chronic kidney disease, on hemodialysis, and apparently had been very weak at home, and falling. The patient remains on the mechanical ventilator. Ventilator settings include the volume assist control, rate 20, tidal volume 500, FiO2 55%, but 10. Blood gases show pO2 of 80, pCO2 33, and a pH is 7. or 5. The patient continues on propofol at 10 mics per kilogram per minute. Although recently has been turned off by the nurse, saline at 50 mL an hour, norepinephrine at 12 mcg/m, and vital high protein at 40 mL an hour, with a goal of 48. We will attempt a spontaneous breathing trial on this patient, with pressure support of 10, CPAP of 5. I'm not hopeful that the patient is ready for weaning given the fact that he still on norepinephrine at 12 mcg/m, insulin requiring FiO2 55%, with a PEEP of 10. PO2 was only 80. White count 9.1, hemoglobin 10.1, hematocrit 33.3, and platelet count 179,000. Sodium 132, potassium 4.9, chlorides 99, CO2 18, anion gap 15, BUN 38, creatinine 3.54. Chest x-ray shows a well-placed endotracheal tube, and a hemodialysis catheter. There is cardiomegaly, and small bilateral pleural effusions. The patient is seen today 07/31/2023 and follow-up in the intensive care unit. He remains intubated on the mechanical ventilator currently an assist-control mode at a rate of 20, tidal volume 500, FiO2 55% and a PEEP of 10. Morning blood gases revealed a PaO2 of 83, pCO2 36 and a pH of 7.47. He remains on normal saline 50 ML's per hour. Norepinephrine at 12 mcg/m. Being nourished with vital HP 55 ML's per hour which is goal. He has been off sedation for over 24 hours now. His only response is to withdraw from painful stimuli. X-ray shows similar bibasilar opacities suggestive of small effusions with atelectasis/airspace disease. Stable compared to previous. Sputum shows no wilson wth. White count 9.4. Hemoglobin 9.7. Platelets 177. Sodium 135. Potassium 4.2. Bicarb 22. BUN 33. Creatinine 2.86. Glucose 196. He remains on ceftriaxone. Anticoagulated with Eliquis. He did tolerate pressure support of 10 and the CPAP of 5 for 12 hours yesterday. He will be continued on hemodialysis on Sunday via permacath. Echocardiogram did reveal moderate to severe left ventricular systolic dysfunction with ejection fraction of 35%. The patient is seen today 08/01/2023 and follow-up in the intensive care unit. He remains intubated on mechanical ventilator in assist control mode at a rate of 20, tidal volume 500, FiO2 55% and a PEEP of 10. Morning blood gases revealed a pO2 of 76, pCO2 of 36 and a pH of 7.43. The plan is for pressure support and CPAP trials today. He is been off sedation for greater than 48 hours. He has not had any purposeful responses. He has some involuntary movement and possible brainstem function otherwise does not follow any simple commands. He is in a paced rhythm. Microbiology has been negative thus far. His pro calcitonin was 0.85. He remains on ceftriaxone. He has normal saline at 50 MLS per hour. Currently on norepinephrine at 0.08 mcg/kg/m which is 10 mcg/m. He is being nourished with vital HP at 55 ML's per hour which is goal. He is continued on DuoNeb inhalations. Anticoagulated with Eliquis. Chest x- ray reveals similar mild to moderate cardiomegaly and ongoing small pleural effusions with adjacent atelectasis. White count 9.5. Hemoglobin 9.8. Platelets 211. Sodium 134. Potassium 4.1. Bicarb 22. BUN 44. Creatinine 3.40. Glucose 201. The patient is seen today 08/02/2019 for follow-up in the intensive care unit. He remains intubated on the mechanical ventilator currently an assist-control mode at a rate of 20, tidal volume 500, FiO2 55% and a PEEP of 10. Morning blood gases reveal a P O2 of 71, pCO2 46 and a pH of 7.46. He remains off sedation for nearly 72 hours now. Minimally responsive per withdraw to painful stimuli. Some nonpurposeful movements. Not following any commands. He is requiring norepinephrine at 0.04 mcg/kg/m. He has normal saline at 20 miles per hour. He is being nourished with vital HP at 77 mL an hour which is goal. Follow-up computed tomography scan of the brain is pending. Chest x-ray revealed moderate cardiomegaly with possible pulmonary vascular congestion. Similar findings. Sputum culture revealed no growth. White count 9.5. Hem oglobin 9.5. Platelets 182. Sodium 131 potassium 4.1. Bicarb 24. BUN 38. Creatinine 2.62. Glucose 212. The patient remains on DuoNeb inhalations. Antibiotics in the form of ceftriaxone. Anticoagulated with Eliquis. The patient is seen today 08/03/2023 in follow-up in the intensive care unit. He remains intubated and on the mechanical ventilator. Current settings are assist-control mode at a rate of 20, tidal out of 500, FiO2 55% and a PEEP of 10. Arterial blood gases reveal pO2 of 87, pCO2 34 and a pH of 7.43. White count 9.8. Hematoma 9.5. Platelets 217. Sodium 132. Potassium 4.5. Bicarb 21. BUN 54. Creatinine 3.15. Glucose 206. He has been off sedation for greater than 72 hours. No purposeful movements. Does not follow any simple commands. CT scan of the brain revealed no acute intracranial abnormalities. Mild to moderate atrophy. Being nourished with vital HP at 77 ML's per hour which is goal. He is still requiring norepinephrine at 7 mcg/m. Normal saline at 20 ML's per hour. Objective - Vital Signs Vital signs: Vital Signs Temp 98.5 F 08/03/23 04:00 Pulse 71 08/03/23 10:30 Resp 24 08/03/23 10:30 BP 95/58 08/02/23 01:15 Pulse Ox 93 L 08/03/23 10:30 FiO2 55 08/03/23 08:29 Intake & Output 08/02/23 08/03/23 08/03/23 18:59 06:59 18:59 Intake Total 8548.594 4751.473 430 Output Total 1 2 0 Balance 0856.750 7491.473 430 Weight 135.9 kg Intake: IV 273 116 72 Pressure Bag (0.9 Sodium 33 36 12 Chloride) Sodium Chloride 0.9% 1, 100 80 60 000 ml @ 50 mls/hr IV . Q20H [facility] Rx#:[id number] cefTRIAXone 1 gm In 140 Sodium Chloride 0.9% 50 ml @ 100 mls/hr IVPB Q24HR [facility] Rx#:[id number] Intake, IV Titration 316.644 340.473 50 Amount Norepinephrine 4 mg In 316.644 340.473 Sodium Chloride 0.9% 250 ml @ 0.03 MCG/KG/MIN 13. 361 mls/hr IV .Q19H1M [facility] Rx#:[id number] cefTRIAXone 1 gm In 50 Sodium Chloride 0.9% 50 ml @ 100 mls/hr IVPB Q24HR [facility] Rx#:[id number] Tube Feeding 847 924 308 Other 90 Output: Urine 1 2 0 Other: # Voids 0 ABP, PAP, CO, CI - Last Documented Arterial Blood Pressure 122/58 - Exam GENERAL EXAM: Intubated, remains unresponsive off sedation, 78-year-old male, requiring 55% FiO2 with a PEEP of 10. HEAD: Normocephalic. EYES: Normal reaction of pupils, equal size. NOSE: Clear with pink turbinates. THROAT: No erythema or exudates. NECK: No masses, no JVD. CHEST: No chest wall deformity. LUNGS: Equal air entry with no crackles, wheeze, rhonchi or dullness. CVS: S1 and S2 normal with no audible murmur, regular rhythm. ABDOMEN: No hepatosplenomegaly, normal bowel sounds, no guarding or rigidity. SPINE: No scoliosis or deformity SKIN: No rashes CENTRAL NERVOUS SYSTEM: Withdraws to pain on full stimuli, otherwise unresponsiv e, tone is normal in all 4 extremities. EXTREMITIES: There is 1+ peripheral edema. No clubbing, no cyanosis. Peripheral pulses are intact. - Labs CBC & Chem 7: 08/03/23 04:09 08/03/23 04:09 Labs: Abnormal Lab Results - Last 24 Hours (Table) 08/02/23 08/02/23 08/03/23 Range/Units 11:38 17:51 00:30 RBC (4.30-5.90) m/uL Hgb (13.0-17.5) gm/dL Hct (39.0-53.0) % MCV (80.0-100.0) fL MCHC (31.0-37.0) g/dL RDW (11.5-15.5) % Macrocytosis ABG pCO2 (35-45) mmHg Sodium (137-145) mmol/L Chloride (98-107) mmol/L Carbon Dioxide (22-30) mmol/L BUN (9-20) mg/dL Creatinine (0.66-1.25) mg/dL Glucose (74-99) mg/dL POC Glucose (mg/dL) 225 H 199 H 193 H (70-110) mg/dL Calcium (8.4-10.2) mg/dL 08/03/23 08/03/23 08/03/23 Range/Units 04:09 04:09 06:19 RBC 3.04 L (4.30-5.90) m/uL Hgb 9.5 L (13.0-17.5) gm/dL Hct 32.0 L (39.0-53.0) % MCV 105.1 H (80.0-100.0) fL MCHC 29.8 L (31.0-37.0) g/dL RDW 19.3 H (11.5-15.5) % Macrocytosis Marked A ABG pCO2 34 L (35-45) mmHg Sodium 132 L (137-145) mmol/L Chloride 97 L (98-107) mmol/L Carbon Dioxide 21 L (22-30) mmol/L BUN 54 H (9-20) mg/dL Creatinine 3.15 H (0.66-1.25) mg/dL Glucose 206 H (74-99) mg/dL POC Glucose (mg/dL) (70-110) mg/dL Calcium 8.3 L (8.4-10.2) mg/dL 08/03/23 Range/Units 06:29 RBC (4.30-5.90) m/uL Hgb (13.0-17.5) gm/dL Hct (39.0-53.0) % MCV (80.0-100.0) fL MCHC (31.0-37.0) g/dL RDW (11.5-15.5) % Macrocytosis ABG pCO2 (35-45) mmHg Sodium (137-145) mmol/L Chloride (98-107) mmol/L Carbon Dioxide (22-30) mmol/L BUN (9-20) mg/dL Creatinine (0.66-1.25) mg/dL Glucose (74-99) mg/dL POC Glucose (mg/dL) 233 H (70-110) mg/dL Calcium (8.4-10.2) mg/dL Assessment and Plan Assessment: Status post cardiac arrest, with CPR and return of spontaneous circulation, with at least 14 minutes of downtime. Patient had PEA Rule out anoxic brain injury. Remains unresponsive despite 48 hours without sedation Status post intubation and mechanical ventilation, 07/28/2023 Chronic diastolic CHF Severe pulmonary hypertension Acute metabolic acidosis, secondary to chronic kidney disease Possible orthostatic hypotension, with history of recurrent falls Hyperkalemia, secondary to chronic kidney disease Anemia of chronic disease History of sleep apnea syndrome History of sepsis and septic shock Chronic atrial fibrillation Type 2 diabetes with diabetic nephropathy History of sick sinus syndrome, status post pacemaker implantation Plan: The patient was seen and evaluated Computed tomography scan brain, labs, ABGs and medications reviewed The patient remains unresponsive off sedation for several days The family is planning to go to comfort care today I have personally seen and examined the patient, performed the documentation and the assessment and plan as written. Number of minutes spent on the visit: 15.
[2023-08-03 11:29] VITALS: BMI 40.6
[2023-08-03] MEDS: SODIUM CHLORIDE 0.9% 1,000 ML IV SCH (11:42)
[2023-08-03 12:04] LABS: Glucose,Whole Blood 246 mg/dL (70-110)
--- NOTE | 2023-08-03 12:06 | P.PN ---
Subjective Patient is seen for follow-up for end-stage renal disease. Patient remains on the vent. Sedation has been off for 4 days now. There is no improvement in mentation. Possible comfort care measures today. We will hold off on hemodialysis today. Objective - Vital Signs Vital signs: Vital Signs Temp 98.2 F 08/03/23 12:00 Pulse 72 08/03/23 12:00 Resp 27 H 08/03/23 12:00 BP 95/58 08/02/23 01:15 Pulse Ox 93 L 08/03/23 12:00 FiO2 55 08/03/23 12:00 Intake & Output 08/02/23 08/03/23 08/03/23 18:59 06:59 18:59 Intake Total 0463.149 0076.473 476 Output Total 1 2 0 Balance 2188.995 0184.473 476 Weight 135.9 kg 135.9 kg Intake: IV 273 116 118 Pressure Bag (0.9 Sodium 33 36 18 Chloride) Sodium Chloride 0.9% 1, 100 80 100 000 ml @ 50 mls/hr IV . Q20H [facility] Rx#:[id number] cefTRIAXone 1 gm In 140 Sodium Chloride 0.9% 50 ml @ 100 mls/hr IVPB Q24HR [facility] Rx#:[id number] Intake, IV Titration 316.644 340.473 50 Amount Norepinephrine 4 mg In 316.644 340.473 Sodium Chloride 0.9% 250 ml @ 0.03 MCG/KG/MIN 13. 361 mls/hr IV .Q19H1M [facility] Rx#:[id number] cefTRIAXone 1 gm In 50 Sodium Chloride 0.9% 50 ml @ 100 mls/hr IVPB Q24HR [facility] Rx#:[id number] Tube Feeding 847 924 308 Other 90 Output: Urine 1 2 0 Other: # Voids 0 ABP, PAP, CO, CI - Last Documented Arterial Blood Pressure 127/61 - Exam Patient is on the vent. Unresponsive Abdomen is soft obese Examination lower extremity shows chronic skin skin changes 1+ edema noted. 2+ edema noted in bilateral upper extremities. - Labs CBC & Chem 7: 08/03/23 04:09 08/03/23 04:09 Labs: Abnormal Lab Results - Last 24 Hours (Table) 08/02/23 08/03/23 08/03/23 Range/Units 17:51 00:30 04:09 RBC 3.04 L (4.30-5.90) m/uL Hgb 9.5 L (13.0-17.5) gm/dL Hct 32.0 L (39.0-53.0) % MCV 105.1 H (80.0-100.0) fL MCHC 29.8 L (31.0-37.0) g/dL RDW 19.3 H (11.5-15.5) % Macrocytosis Marked A ABG pCO2 (35-45) mmHg Sodium (137-145) mmol/L Chloride (98-107) mmol/L Carbon Dioxide (22-30) mmol/L BUN (9-20) mg/dL Creatinine (0.66-1.25) mg/dL Glucose (74-99) mg/dL POC Glucose (mg/dL) 199 H 193 H (70-110) mg/dL Calcium (8.4-10.2) mg/dL 08/03/23 08/03/23 08/03/23 Range/Units 04:09 06:19 06:29 RBC (4.30-5.90) m/uL Hgb (13.0-17.5) gm/dL Hct (39.0-53.0) % MCV (80.0-100.0) fL MCHC (31.0-37.0) g/dL RDW (11.5-15.5) % Macrocytosis ABG pCO2 34 L (35-45) mmHg Sodium 132 L (137-145) mmol/L Chloride 97 L (98-107) mmol/L Carbon Dioxide 21 L (22-30) mmol/L BUN 54 H (9-20) mg/dL Creatinine 3.15 H (0.66-1.25) mg/dL Glucose 206 H (74-99) mg/dL POC Glucose (mg/dL) 233 H (70-110) mg/dL Calcium 8.3 L (8.4-10.2) mg/dL 08/03/23 Range/Units 12:01 RBC (4.30-5.90) m/uL Hgb (13.0-17.5) gm/dL Hct (39.0-53.0) % MCV (80.0-100.0) fL MCHC (31.0-37.0) g/dL RDW (11.5-15.5) % Macrocytosis ABG pCO2 (35-45) mmHg Sodium (137-145) mmol/L Chloride (98-107) mmol/L Carbon Dioxide (22-30) mmol/L BUN (9-20) mg/dL Creatinine (0.66-1.25) mg/dL Glucose (74-99) mg/dL POC Glucose (mg/dL) 246 H (70-110) mg/dL Calcium (8.4-10.2) mg/dL Assessment and Plan Assessment: 1. End-stage renal disease maintained on hemodialysis on Sunday schedule via permacath. 2. Status post fall. No fractures noted. 3. Diabetes mellitus. 4. Metabolic acidosis secondary to chronic kidney disease. Improved. 5. Chronic diastolic CHF with moderate to severe tricuspid regurgitation and pulmonary hypertension. 6. Hyperkalemia secondary to CKD, improved post HD. Patient underwent hemodialysis July 27 and July 28, 2023. 7. Status post PEA arrest 07/28/2023 concern for anoxic encephalopathy. 8. Anemia of chronic kidney disease maintained on Aranesp. Plan: Hold hemodialysis today. Plans for comfort care measures today.
[2023-08-03 12:17] VITALS: TEMP 98.2
[2023-08-03] MEDS ORDERED: ATROPINE OPHTH SOLN 1% 5ML BTL SUBLINGUAL PRN (13:54)
[2023-08-03] MEDS ORDERED: LORazepam 2 MG/ML INJ IV PRN (13:54)
[2023-08-03] MEDS ORDERED: MORPHINE SULFATE (100 MG/2 ML) 100 MG in SODIUM CHLORIDE 0.9% 100 ML IV SCH (14:00)
[2023-08-03 14:17] VITALS: PULSE 65; RESP 22
--- NOTE | 2023-08-03 14:26 | P.PN ---
Subjective Progress Note Date: 08/03/23 Patient remains in the intensive care unit currently intubated after cardiac arrest and found to be in PEA. He is on IV ceftriaxone for suspected UTI. Chest xray today showing moderate cardiomegaly and possible pulmonary vascular congestion. Small effusions with adjacent atelectasis and or consolidation left greater than right are also similar. Additionally patient continues on blood pressure support with levophed. Has been off sedation and not responsive. Neurology following with suspicion of anoxic brain injury and underwent brain CT today showing no acute intracranial CT abnormality. Mild to moderate atrophy. Family has decided against tracheostomy tube and PEG tube placement and patient remains a do not resuscitate/do no intubate with family considering end of life care on Sunday if no improvement. His white blood cell count is 9.5 today, hgb 9.5, sodium 131, BUN 38, creatinine 2.62. Patient remains in the intensive care unit he remains intubated and he is unresponsive. He is off sedation. Continues on levophed. Family at the bedside and wanting to pursue comfort with plans to start around 1600 today. They are waiting for one more family member to arrive. REVIEW OF SYSTEMS: Unable to complete patient is currently intubated and lethargic. Physical Examination -GENERAL: Intubated lethargic, Well developed, well nourished. Generally weak HEENT: Pupils are round and equally reacting to light. EOMI. No scleral icterus. No conjunctival pallor. Normocephalic, atraumatic. No pharyngeal erythema. No thyromegaly. CARDIOVASCULAR: S1 and S2 present. No murmurs, rubs, or gallops. PULMONARY: Chest is clear to auscultation, no wheezing , no crackles. ABDOMEN: Soft, nontender, nondistended, normoactive bowel sounds. No palpable organomegaly. MUSCULOSKELETAL: No joint swelling or deformity. -EXTREMITIES: No cyanosis, clubbing,. Bilateral pitting leg edema. NEUROLOGICAL: Gross neurological examination did not reveal any focal deficits. Diffuse weakness SKIN: No rashes. no petechiae. Assessment and Plan Assessment Status post cardiac arrest, with CPR and return of spontaneous circulation, with a 14 minute downtime. Patient had PEA Status post intubation and mechanical ventilation, 07/28/2023 remains intubated Anoxic encephalopathy Chronic diastolic CHF and severe pulmonary hypertension ESRD on hemodialysis Acute metabolic acidosis, secondary to chronic kidney disease Possible orthostatic hypotension, with history of recurrent falls Hyperkalemia, secondary to chronic kidney disease Anemia of chronic disease History of sepsis and septic shock Chronic atrial fibrillation Type 2 diabetes with diabetic nephropathy Hx sleep apnea History of sick sinus syndrome, with permanent pacemaker Do Not Resuscitate/Do Not Intubate Plan Continue on vasopressor support and midodrine Patient remains off sedation and neurology following for the suspected anoxic brain injury. Had repeat brain CT. Family has decided on comfort care today at 1600 to begin. 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 Continue enteral nutrition Repeat labs in AM Prognosis poor The impression and plan of care has been dictated by Elodia Aldrich, Nurse Practitioner as directed. Dr. Galdino MD I have performed a history and physical examination and medical decision making of this patient, discussed the same with the dictator, and agree with the dictators assessment and plan as written, documented as a scribe. Based on total visit time, I have performed more than 50% of this visit. Objective - Vital Signs Vital signs: Vital Signs Temp 98.2 F 08/03/23 12:00 Pulse 65 08/03/23 14:00 Resp 22 08/03/23 14:00 BP 95/58 08/02/23 01:15 Pulse Ox 95 08/03/23 14:00 FiO2 55 08/03/23 12:00 Intake & Output 08/02/23 08/03/23 08/03/23 18:59 06:59 18:59 Intake Total 3818.897 4812.473 522 Output Total 1 2 0 Balance 8084.481 4908.473 522 Weight 135.9 kg 135.9 kg Intake: IV 273 116 164 Pressure Bag (0.9 Sodium 33 36 24 Chloride) Sodium Chloride 0.9% 1, 100 80 140 000 ml @ 50 mls/hr IV . Q20H [facility] Rx#:[id number] cefTRIAXone 1 gm In 140 Sodium Chloride 0.9% 50 ml @ 100 mls/hr IVPB Q24HR [facility] Rx#:[id number] Intake, IV Titration 316.644 340.473 50 Amount Norepinephrine 4 mg In 316.644 340.473 Sodium Chloride 0.9% 250 ml @ 0.03 MCG/KG/MIN 13. 361 mls/hr IV .Q19H1M [facility] Rx#:[id number] cefTRIAXone 1 gm In 50 Sodium Chloride 0.9% 50 ml @ 100 mls/hr IVPB Q24HR [facility] Rx#:[id number] Tube Feeding 847 924 308 Other 90 Output: Urine 1 2 0 Other: # Voids 0 ABP, PAP, CO, CI - Last Documented Arterial Blood Pressure 121/55 - Labs CBC & Chem 7: 08/03/23 04:09 08/03/23 04:09 Labs: Abnormal Lab Results - Last 24 Hours (Table) 08/02/23 08/03/23 08/03/23 Range/Units 17:51 00:30 04:09 RBC 3.04 L (4.30-5.90) m/uL Hgb 9.5 L (13.0-17.5) gm/dL Hct 32.0 L (39.0-53.0) % MCV 105.1 H (80.0-100.0) fL MCHC 29.8 L (31.0-37.0) g/dL RDW 19.3 H (11.5-15.5) % Macrocytosis Marked A ABG pCO2 (35-45) mmHg Sodium (137-145) mmol/L Chloride (98-107) mmol/L Carbon Dioxide (22-30) mmol/L BUN (9-20) mg/dL Creatinine (0.66-1.25) mg/dL Glucose (74-99) mg/dL POC Glucose (mg/dL) 199 H 193 H (70-110) mg/dL Calcium (8.4-10.2) mg/dL 08/03/23 08/03/23 08/03/23 Range/Units 04:09 06:19 06:29 RBC (4.30-5.90) m/uL Hgb (13.0-17.5) gm/dL Hct (39.0-53.0) % MCV (80.0-100.0) fL MCHC (31.0-37.0) g/dL RDW (11.5-15.5) % Macrocytosis ABG pCO2 34 L (35-45) mmHg Sodium 132 L (137-145) mmol/L Chloride 97 L (98-107) mmol/L Carbon Dioxide 21 L (22-30) mmol/L BUN 54 H (9-20) mg/dL Creatinine 3.15 H (0.66-1.25) mg/dL Glucose 206 H (74-99) mg/dL POC Glucose (mg/dL) 233 H (70-110) mg/dL Calcium 8.3 L (8.4-10.2) mg/dL 08/03/23 Range/Units 12:01 RBC (4.30-5.90) m/uL Hgb (13.0-17.5) gm/dL Hct (39.0-53.0) % MCV (80.0-100.0) fL MCHC (31.0-37.0) g/dL RDW (11.5-15.5) % Macrocytosis ABG pCO2 (35-45) mmHg Sodium (137-145) mmol/L Chloride (98-107) mmol/L Carbon Dioxide (22-30) mmol/L BUN (9-20) mg/dL Creatinine (0.66-1.25) mg/dL Glucose (74-99) mg/dL POC Glucose (mg/dL) 246 H (70-110) mg/dL Calcium (8.4-10.2) mg/dL Assessment and Plan Time with Patient: Less than 30
--- NOTE | 2023-08-04 08:35 | P.PN ---
Subjective Progress Note Date: 08/03/23 08/03/2023: Patient was seen for a follow-up. Patient's , and multiple family members were present. Patient is slightly more awake, but does not track, does not make eye contact, does not follow any directions. No seizure- like activity. 08/02/2023: Patient was seen for a follow-up. Patient's and patient's grandson were present today. Patient is not showing any meaningful response. He is not making eye contact, or following any directions. Patient's mentions that he has been on hemodialysis for last 2-3 years. He has been very active, use to go for fishing, hunting, but has not been able to do these activities for 10 years. She mentions that he has been struggling lately particularly with hemodialysis. 08/01/2023: Patient was seen for a follow-up. Patient's and patient's daughter were present today. Patient is not showing any significant clinical improvement. He is not following commands. He has a weak gag. Pupils are round and reacting sluggishly. No purposeful movement. No seizure-like activity. Occasional myoclonic type jerks noted. 07/31/2023: Patient was seen for a follow-up. Patient continues to be unresponsive. Patient currently on nor epinephrine 0.11 mcg/kg per minute. Patient not improved. 07/30/2023: Patient was initially seen by Dr. Kirill Marcos. Please refer to his note for details. Patient is a 78-year-old male with in-house cardiopulmonary arrest. Patient does have brainstem reflexes. CT head negative. EKG reveals severe e ncephalopathy and rare epileptiform discharges over the right central/temporal. Patient was started on Keppra. Patient at present on norepinephrine 0.06 mcg/kg per minute. Also on Rocephin 1 g. Patient has been off propofol since 5:45 AM. He is on CPAP, tolerating well. He withdraws to pain per nurse report. No obvious seizure-like activity. Some of the workup during his hospital visit consisted of: He is having episodes of hypotensive 70-80 over 40-50s and also his pulse ox was as low as 81% liters. Most recent sodium is trended up at 133, potassium is 5.9, glucose is 170s to 200s, AST ALT was within normal limits Plasma lactic acid vein is 2.8 and most recent is 1.3. TSH as a 7.090. Ammonia is 25. CT head is reported as similar mild generalized atrophy. No acute intracranial abnormality seen. I personally reviewed CT head and agree there is no acute or subacute ischemia or bleed. Objective - Vital Signs Vital signs: Vital Signs Temp 98.2 F 08/03/23 12:00 Pulse 72 08/03/23 12:00 Resp 27 H 08/03/23 12:00 BP 95/58 08/02/23 01:15 Pulse Ox 93 L 08/03/23 12:00 FiO2 55 08/03/23 12:00 Intake & Output 08/02/23 08/03/23 08/03/23 18:59 06:59 18:59 Intake Total 6983.576 2386.473 476 Output Total 1 2 0 Balance 6475.165 0697.473 476 Weight 135.9 kg 135.9 kg Intake: IV 273 116 118 Pressure Bag (0.9 Sodium 33 36 18 Chloride) Sodium Chloride 0.9% 1, 100 80 100 000 ml @ 50 mls/hr IV . Q20H SERGEY Rx#:[id number] cefTRIAXone 1 gm In 140 Sodium Chloride 0.9% 50 ml @ 100 mls/hr IVPB Q24HR SERGEY Rx#:[id number] Intake, IV Titration 316.644 340.473 50 Amount Norepinephrine 4 mg In 316.644 340.473 Sodium Chloride 0.9% 250 ml @ 0.03 MCG/KG/MIN 13. 361 mls/hr IV .Q19H1M SERGEY Rx#:[id number] cefTRIAXone 1 gm In 50 Sodium Chloride 0.9% 50 ml @ 100 mls/hr IVPB Q24HR SERGEY Rx#:[id number] Tube Feeding 847 924 308 Other 90 Output: Urine 1 2 0 Other: # Voids 0 ABP, PAP, CO, CI - Last Documented Arterial Blood Pressure 127/61 - Exam Patient is intubated, currently not on any sedation. Patient still semicomatose, with GCS of 5 (E2, V1, M2). Patient has decerebrate posturing with noxious stimuli in bilateral upper limbs. In the lower limbs, patient slightly flexes his foot to painful stimuli on either sides. Pupils are equal, round and reacting. Gaze is more straightforwards. Oculocephalics absent. No obvious seizure-like activity. Tone is equal bilaterally. Patient does not make any eye contact, does not track. Reflexes are absent Patient does not respond to fine touch, however with painful stimuli, patient has decerebrate posturing. Occasionally patient would move the leg, or move the head, but no purposeful movement. No seizure-like activity noted. Does not squeeze hands, or follow any directions. - Labs CBC & Chem 7: 08/03/23 04:09 08/03/23 04:09 Labs: Abnormal Lab Results - Last 24 Hours (Table) 08/02/23 08/03/23 08/03/23 Range/Units 17:51 00:30 04:09 RBC 3.04 L (4.30-5.90) m/uL Hgb 9.5 L (13.0-17.5) gm/dL Hct 32.0 L (39.0-53.0) % MCV 105.1 H (80.0-100.0) fL MCHC 29.8 L (31.0-37.0) g/dL RDW 19.3 H (11.5-15.5) % Macrocytosis Marked A ABG pCO2 (35-45) mmHg Sodium (137-145) mmol/L Chloride (98-107) mmol/L Carbon Dioxide (22-30) mmol/L BUN (9-20) mg/dL Creatinine (0.66-1.25) mg/dL Glucose (74-99) mg/dL POC Glucose (mg/dL) 199 H 193 H (70-110) mg/dL Calcium (8.4-10.2) mg/dL 08/03/23 08/03/23 08/03/23 Range/Units 04:09 06:19 06:29 RBC (4.30-5.90) m/uL Hgb (13.0-17.5) gm/dL Hct (39.0-53.0) % MCV (80.0-100.0) fL MCHC (31.0-37.0) g/dL RDW (11.5-15.5) % Macrocytosis ABG pCO2 34 L (35-45) mmHg Sodium 132 L (137-145) mmol/L Chloride 97 L (98-107) mmol/L Carbon Dioxide 21 L (22-30) mmol/L BUN 54 H (9-20) mg/dL Creatinine 3.15 H (0.66-1.25) mg/dL Glucose 206 H (74-99) mg/dL POC Glucose (mg/dL) 233 H (70-110) mg/dL Calcium 8.3 L (8.4-10.2) mg/dL 08/03/23 Range/Units 12:01 RBC (4.30-5.90) m/uL Hgb (13.0-17.5) gm/dL Hct (39.0-53.0) % MCV (80.0-100.0) fL MCHC (31.0-37.0) g/dL RDW (11.5-15.5) % Macrocytosis ABG pCO2 (35-45) mmHg Sodium (137-145) mmol/L Chloride (98-107) mmol/L Carbon Dioxide (22-30) mmol/L BUN (9-20) mg/dL Creatinine (0.66-1.25) mg/dL Glucose (74-99) mg/dL POC Glucose (mg/dL) 246 H (70-110) mg/dL Calcium (8.4-10.2) mg/dL Assessment and Plan Assessment: This is a 78 y/o gentleman with multiple medical problems who presents to ED on 07/27/2023 because of generalized weakness and a fall. He had difficulty getting out of chair to bathroom. In our facility at 12:30am on 07/28/2023 he had cardiopulmonary arrest, with downtime lasting 14 minutes. Acute cardiopulmonary arrest lasting 14 minutes. He was in PEA per nursing staff. 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 Patient is off sedation. Patient continues to be severely obtunded with GCS of 5. On examination has brainstem reflexes (breathing over the vent, sluggishly open eyes and has weak gag/cough). Patient not showing any cortical functions at this time. Repeat CT head is negative for acute/subacute changes or significant cerebral edema. Also component of encephalopathy due to metabolic and hypoxic encephalopathy. Hypotensive on epinephrine Diabetes mellitus that is on going History of Cardiomyopathy Sleep apnea History of atrial fibrillation on eliquis Chronic renal failure on hemodialysis Plan: Patient so far not showing significant clinical improvement. Patient's GCS is 5. Patient is off sedation for over 96 hours. Patient is slightly more awake, but he is severely encephalopathic, not following any directions, not making eye contact or tracking. Based upon the projection, it appears patient will have significant deficits and poor long-term prognosis for meaningful recovery. Patient has expressed wishes to his about quality of life. Therefore family have decided terminal weaning and comfort care/hospice. Repeat EEG performed today was abnormal due to background slowing of severe degree, suggestive of generalized cerebral dysfunction as can be seen with toxic metabolic encephalopathy or related to diffuse structural brain abnormality, like in this case with anoxic encephalopathy. After activation with nailbed pressure, intermittent high amplitude monophasic or biphasic bifrontal waves were seen, which did not appear clearly epileptiform. However may indicate underlying cortical irritability. No electrographic seizure was recorded. Follow-up EEG recommended, if clinically indicated. Initial EEG reviewed by Dr. Marcso revealed background slowing, suggestive of severe encephalopathy. Rare epileptiform discharges over the right central temporal region increases the risk for seizure. Otherwise no electrographic seizure was recorded. Clinical correlation recommended. Dr. Marcos started patient on Keppra. Repeat CT head performed today revealed no acute intracranial process. Mild to moderate atrophy. I personally reviewed CT head, agree with the findings. Patient has persistent hypotension, on Levophed. Management as per primary/ICU team. We'll defer the rest of the medical management to primary and other specialist Based upon lack of clinical improvement (6 days post arrest), and current EEG findings suggests poor prognosis. I had a prolonged discussion with family members. They all unanimously decided comfort care. Discussed with nursing staff. Neurology will sign off.
--- NOTE | 2023-08-05 21:29 | P.DS ---
Providers Date of admission: 07/28/23 07:09 Attending physician: Callum Hester Consults: 07/27/23 06:26 Consult Physician Routine Consulting Provider: Bj Weller Consult Reason/Comments: CKF, dialysis Do you want consulting provider notified?: Yes 07/28/23 02:24 Consult Physician Stat Consulting Provider: Dina Acosta Consult Reason/Comments: ICU management Do you want consulting provider notified?: Already Contacted 07/28/23 10:36 Consult Physician Routine Consulting Provider: Kirill Marcos Consult Reason/Comments: Neuro evaluation s/p Post Cardiac Arrest Do you want consulting provider notified?: Yes Consult Physician Urgent Consulting Provider: Rusty Witt Consult Reason/Comments: cardiac arrest Do you want consulting provider notified?: Yes Primary care physician: Nayan Carmona [facility] Course: Final Diagnosis Status post cardiac arrest, with CPR and return of spontaneous circulation, with a 14 minute downtime. Patient had PEA Status post intubation and mechanical ventilation, 07/28/2023 remains intubated Shock requiring vasopressor support Anoxic encephalopathy Chronic diastolic CHF and severe pulmonary hypertension ESRD on hemodialysis Acute metabolic acidosis, secondary to chronic kidney disease Possible orthostatic hypotension, with history of recurrent falls Hyperkalemia, secondary to chronic kidney disease Anemia of chronic disease History of sepsis and septic shock Chronic atrial fibrillation Type 2 diabetes with diabetic nephropathy Hx sleep apnea History of sick sinus syndrome, with permanent pacemaker Do Not Resuscitate/Do Not Intubate Patient on 08/03/2023 at 1503 preliminary cause of septic shock Hospital Course 78-year-old white male with history of atrial fibrillation, hypertension, hyperlipidemia, diabetes mellitus, chronic renal failure/chronic kidney disease on hemodialysis, chronic diastolic CHF with moderate to severe tricuspid regurgitation, pulmonary hypertension, obstructive sleep apnea, was brought into the ER with mostly history of weakness and falling easily. Workup completed in ED including blood work reveals WBC of 9.2, hemoglobin of 10.8 and platelet count of 183, sodium 132, potassium level wasn't done due to hemolyzed specimen, BUN/creatinine of 45/1.43 and blood glucose of 176, UA is positive for blood and leukocyte esterase; Patient was admitted for further evaluation of weakness/falls. He was started on IV ceftriaxone. He was continued on normal hemodialysis. Patient on 07/27/2023 on medical floor had sudden cardiac arrest and code blue he had CPR for 14 minutes was found to bave in PEA. He was intubated and placed on mechanical ventilator. There is concern for anoxic encephalopathy/brain injury. He was sedated and neurology and pulmonary brake holder consulted for evaluation. Sedation was held and patient was minimally responsive. He had EEG showing metabolic encephalopathy and likely anoxic brain injury with no seizure like activity. He was monitored in ICU on mechanical ventilator continued on hemodialysis. He was off sedation and non responsive. Family decided on comfort care measures. Patient on 08/03/2023 at 1503. Please see medication reconciliation for a list of current medication. Thank you for allowing us to participate in the care of this patient. The impression and plan of care has been dictated by Elodia Aldrich, Nurse Practitioner as directed. Dr. Galdino MD I have performed a history and physical examination and medical decision making of this patient, discussed the same with the dictator, and agree with the dictators assessment and plan as written, documented as a scribe. Based on total visit time, I have performed more than 50% of this visit. Plan - Discharge Summary Discharge Rx Participant: No New Discharge Prescriptions: No Action allopurinoL [Zyloprim] 300 mg PO DAILY Acetaminophen Tab [Tylenol] 650 mg PO BID Multivitamins, Thera [Multivitamin (formulary)] 1 tab PO DAILY Lovastatin [Altoprev] 40 mg PO HS glipiZIDE [Glucotrol] 10 mg PO DAILY@1400 Fludrocortisone [Florinef] 0.1 mg PO DAILY Docusate [Colace] 100 mg PO BID Amiodarone [Cordarone] 200 mg PO DAILY 30 Days #30 tab Torsemide [Demadex] 80 mg PO DAILY Apixaban [Eliquis] 5 mg PO BID #60 tab Nystatin 100,000 Unit/gm Powd [Mycostatin Powder] 1 applic TOPICAL BID 30 Days #2 each Omeprazole 40 mg PO DAILY Midodrine HCl [ProAmatine] 10 mg PO QID PRN PRN Reason: HOLD SBP <100 Sucralfate [Carafate] 1 gm PO BID Ferrous Sulfate [Feosol] 325 mg PO DAILY 30 Days #60 tab glipiZIDE [Glucotrol] 20 mg PO DAILY@0800 L.acidoph,Paracasei, B.lactis [Probiotic] 1 cap PO DAILY Darbepoetin Chirag [Aranesp] 60 mcg SQ Q7D 30 Days #4 each Discharge Medication List allopurinoL [Zyloprim] 300 mg PO DAILY 11/21/14 [History] Acetaminophen Tab [Tylenol] 650 mg PO BID 07/12/16 [History] Multivitamins, Thera [Multivitamin (formulary)] 1 tab PO DAILY 10/03/17 [History] Lovastatin [Altoprev] 40 mg PO HS 05/24/21 [History] Omeprazole 40 mg PO DAILY 03/29/22 [History] Midodrine HCl [ProAmatine] 10 mg PO QID PRN 02/14/23 [History] glipiZIDE [Glucotrol] 10 mg PO DAILY@1400 02/14/23 [History] Sucralfate [Carafate] 1 gm PO BID 02/15/23 [History] Docusate [Colace] 100 mg PO BID 05/10/23 [History] Fludrocortisone [Florinef] 0.1 mg PO DAILY 05/10/23 [History] Ferrous Sulfate [Feosol] 325 mg PO DAILY 30 Days #60 tab 05/12/23 [Rx] Amiodarone [Cordarone] 200 mg PO DAILY 30 Days #30 tab 06/18/23 [Rx] L.acidoph,Paracasei, B.lactis [Probiotic] 1 cap PO DAILY 07/07/23 [History] Torsemide [Demadex] 80 mg PO DAILY 07/07/23 [History] glipiZIDE [Glucotrol] 20 mg PO DAILY@0800 07/07/23 [History] Apixaban [Eliquis] 5 mg PO BID #60 tab 07/12/23 [Rx] Darbepoetin Chirag [Aranesp] 60 mcg SQ Q7D 30 Days #4 each 07/12/23 [Rx] Nystatin 100,000 Unit/gm Powd [Mycostatin Powder] 1 applic TOPICAL BID 30 Days #2 each 07/12/23 [Rx] Follow up Appointment(s)/Referral(s): Nayan Georges [Primary Care Provider] - 1-2 days Discharge Disposition: - Preliminary Cause of Preliminary Cause of : septic shock
--- NOTE | 2023-08-07 07:10 | CDI ---
Documentation Clarification Form Date: 08/07/2023 06:51:08 AM From: Clarice Lemus Admit Date: 07/28/2023 07:09:00 AM Patient Name: Tristian Galloway Visit Number: [id number] Discharge Date: 08/03/2023 03:05:00 PM ATTENTION: The Clinical Documentation Specialists (CDI) and [facility] Coding Staff appreciate your assistance in clarifying documentation. Please respond to the clarification below the line at the bottom and electronically sign. The CDI & [facility] Coding staff will review the response and follow-up if needed. Please note: Queries are made part of the Legal Health Record. If you have any questions, please contact the author of this message via ITS. Dr. Callum Hester, Septic shock is documented as cause of , but sepsis is not documented as being present this admission which may lack sufficient clinical evidence/support in the medical record. Additional clarification is requested. History/Risk Factors: History of peritonitis, sepsis and septic shock previous admission. Clinical Indicators: Plasma lactic acid 2.8 (07/27), Procalcitonin 0.85 (07/31), WBC 11.6/10.22 (07/28), Neutrophils (07/28) 7.92 (07/28), P 73, R 10, BP- None, O2 sat none, Blood cultures negative on preliminary (08/02) Treatment: IV Norepinephrine, intubated & ventilated, Sod Bicarb IV, IV Antibiotics Please clarify if sepsis is a valid diagnosis? [x ] Yes, Sepsis is present on admission as evidence by (additional clinical support): __UTI [ ] Yes, Sepsis is present but not present on admission [ ] No, Sepsis is ruled out [ ] Other (please specify diagnosis) [ ] Unable to determine MTDD
== END 2023-08-03 15:05 | disposition expired | DRG 207 ==
LOC: EC 23:53 → 1SOBS 07-27 06:26 → 6NMEDSUR 07-27 07:42 → 2SICU 07-28 01:57 → OBSVTOIN 07-28 07:09
PROVIDERS: ADMIT Hospitalist; ATTEND Hospitalist
PROC: 0D9670Z Drainage of Stomach with Drainage Device, Via Natural or Artificial Opening (ICD-10-PCS; principal; 2023-07-28)
PROC: 3E0G76Z Introduction of Nutritional Substance into Upper GI, Via Natural or Artificial Opening (ICD-10-PCS; principal; 2023-07-28)
PROC: 3E033XZ Introduction of Vasopressor into Peripheral Vein, Percutaneous Approach (ICD-10-PCS; principal; 2023-07-28)
PROC: 5A1955Z Respiratory Ventilation, Greater than 96 Consecutive Hours (ICD-10-PCS; principal; 2023-07-28)
PROC: 5A12012 Performance of Cardiac Output, Single, Manual (ICD-10-PCS; 2023-07-28)
PROC: 0BH17EZ Insertion of Endotracheal Airway into Trachea, Via Natural or Artificial Opening (ICD-10-PCS; 2023-07-28)
PROC: 4A133J1 Monitoring of Arterial Pulse, Peripheral, Percutaneous Approach (ICD-10-PCS; 2023-07-28)
PROC: 4A133B1 Monitoring of Arterial Pressure, Peripheral, Percutaneous Approach (ICD-10-PCS; 2023-07-28)
PROC: 03HY32Z Insertion of Monitoring Device into Upper Artery, Percutaneous Approach (ICD-10-PCS; 2023-07-28)
PROC: 5A1D70Z Performance of Urinary Filtration, Intermittent, Less than 6 Hours Per Day (ICD-10-PCS; 2023-07-28)
PROC: 06HY33Z Insertion of Infusion Device into Lower Vein, Percutaneous Approach (ICD-10-PCS; 2023-07-28)
PROC: 5A09357 Assistance with Respiratory Ventilation, Less than 24 Consecutive Hours, Continuous Positive Airway Pressure (ICD-10-PCS; 2023-07-28)
PROC: 4A133B1 Monitoring of Arterial Pressure, Peripheral, Percutaneous Approach (ICD-10-PCS; 2023-07-29)
PROC: 03HY32Z Insertion of Monitoring Device into Upper Artery, Percutaneous Approach (ICD-10-PCS; 2023-07-29)
PROC: 4A133J1 Monitoring of Arterial Pulse, Peripheral, Percutaneous Approach (ICD-10-PCS; 2023-07-29)
DX: J96.01 Acute respiratory failure with hypoxia (principal); A41.9 Sepsis, unspecified organism; R65.21 Severe sepsis with septic shock; G93.41 Metabolic encephalopathy; N18.6 End stage renal disease; I48.21 Permanent atrial fibrillation; I13.2 Hypertensive heart and chronic kidney disease with heart failure and with stage 5 chronic kidney disease, or end stage renal disease; N17.9 Acute kidney failure, unspecified; E87.21 Acute metabolic acidosis; G93.1 Anoxic brain damage, not elsewhere classified; I42.9 Cardiomyopathy, unspecified; I50.32 Chronic diastolic (congestive) heart failure; Z68.41 Body mass index [BMI] 40.0-44.9, adult; N39.0 Urinary tract infection, site not specified; J98.11 Atelectasis; I46.8 Cardiac arrest due to other underlying condition; E11.649 Type 2 diabetes mellitus with hypoglycemia without coma; G25.3 Myoclonus; D63.1 Anemia in chronic kidney disease; E11.22 Type 2 diabetes mellitus with diabetic chronic kidney disease; E66.01 Morbid (severe) obesity due to excess calories; Z99.2 Dependence on renal dialysis; Z66 Do not resuscitate; Z51.5 Encounter for palliative care; J44.9 Chronic obstructive pulmonary disease, unspecified; I27.20 Pulmonary hypertension, unspecified; I49.5 Sick sinus syndrome; R62.7 Adult failure to thrive; E78.5 Hyperlipidemia, unspecified; E87.5 Hyperkalemia; I95.1 Orthostatic hypotension; G47.33 Obstructive sleep apnea (adult) (pediatric); G89.29 Other chronic pain; I07.1 Rheumatic tricuspid insufficiency; I44.0 Atrioventricular block, first degree; K21.9 Gastro-esophageal reflux disease without esophagitis; E07.9 Disorder of thyroid, unspecified; I87.8 Other specified disorders of veins; M10.9 Gout, unspecified; K59.00 Constipation, unspecified; M19.90 Unspecified osteoarthritis, unspecified site; R29.6 Repeated falls; Z79.01 Long term (current) use of anticoagulants; Z79.84 Long term (current) use of oral hypoglycemic drugs; Z79.52 Long term (current) use of systemic steroids; Z79.899 Other long term (current) drug therapy; Z95.0 Presence of cardiac pacemaker; Z87.891 Personal history of nicotine dependence; Z86.14 Personal history of Methicillin resistant Staphylococcus aureus infection; Z71.3 Dietary counseling and surveillance; W19.XXXA Unspecified fall, initial encounter; Z88.8 Allergy status to other drugs, medicaments and biological substances
CPT/HCPCS: 36415; 36600; 70450; 71045; 72170; 80048; 80053; 81001; 82140; 82805; 83605; 83735; 84100; 84145; 84443; 84484; 85025; 85027; 85610; 85730; 87040; 87070; 87205; 90935; 93308; 94002; 94003; 94640; 94660; 95819; 95822; 96361; 96374; 99285